=== PATIENT | female | born 1935 | race Caucasian/White ===

== ENCOUNTER 2016-11-20 19:40 | Emergency (ER) | payer MEDICARE, OTHER ==
[~2016-11-20 19:40] MED LIST: /ACETCOD2T PO; /AMLO25TA PO; /IPRAINH INH; ACET30TAB PO; ADV250INH INH; ALB2.5NEB INH; ALBU17IN INH; ALBUPOW9 INH; ALBUTEROL NEB INH; ALPR0.25 PO; AMLO10TA2 PO; ASPI1TAB PO; ASPI81TAEC PO; ATROVENT NEB INH; AUGMENTIN PO; AVEL1TAB PO; AZIT250T3 PO; CALC1TAB17 PO; CALCCHW19 PO; CALCD50TA PO; CALCTAB43 PO; CEFD1CAP8 PO; CEFT250T PO; CETI10TA PO; CLOP75TA2 PO; DOXY50CA PO; FLUC10TA PO; IBUPOTC PO; IPRA2IN INH; IPRA2IN NEB; IPRAINH INH; IPRASOL4 NEB; LASI40TA PO; LEVA12INH NEB; LEVO500T PO; LISI10TA4 PO; LOVE0.4I2 SC; MAPA325T2 PO; METO25TA74 PO; MUCI120T PO; MUCI600T34 PO; NITR4TASL SL; NYST50SS SS; OMEP20CA3 PO; OXYGEN; PANT40TA2 PO; PRED10PA PO; PRED10PA2 PO; PRED10TA PO; PRED10TA2 PO; PRED20TA PO; PRED5TAB PO; PRIL20CA PO; PRIN10TA PO; PULM1SUS INH; PULMICORT INH; PULMOCORT INH; SPIR1CAP INH; SPIRIVA HANDIHALER INH; TESS100C PO; TIZA2CAP3 PO; TIZANIDINE PO; VENTAER IN; VITA500047 PO; VITACAP31 PO; XANA0.25 PO
[2016-11-20] MEDS ORDERED: dexameTHASONE 4 MG/ML 1ML VIAL (J1100) As Ordered ONE (20:10)
[2016-11-20] MEDS ORDERED: IPRATROPIUM 0.5MG/ALBUTEROL 2.5MG INH SOL UD 3ML (DUONEB)(J7620) As Ordered ONE (20:21)
--- NOTE | 2016-11-20 21:52 | EDDOCDS ---
Nurse's Notes [facility] Name: Harmony Bowers Age: 81 yrs Sex: Female : 1935 Arrival Date: 11/20/2016 Time: 19:40 Bed 10 Private MD: Anson Lomeli M.D. Diagnosis: Chronic obstructive pulmonary disease with (acute) exacerbation Presentation: 11/20 19:43 Red Flag criteria, patient assessed and taken directly to a bed. 19:47 Presenting complaint: Patient states: Patient fell 3 three days ago after she tripped kmg1 over a large bag of dog food. has pain in right hand and has a "hematoma" left leg and foot. Also having difficulty breathing. Came on this morning. Patient is wheezing and SOB. Adult Sepsis Screening: The patient does not have new or worsening altered mentation. Patient has a respiratory rate of greater than or equal to 22 (1 point). Systolic blood pressure is greater than 100. Patient has a qSOFA score of 1- Negative Sepsis Screen. Suicide/Homicide risk assessment- the patient denies having any suicidal and/or homicidal ideations and does not present with any other emotional, behavioral or mental health complaints. 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 Transition of care: patient was not received from another setting of care. 19:47 Acuity: KENNEDY Level 3 [facility] [place] 19:47 Method Of Arrival: Walkin/Carried/Asstd km Triage Assessment: 19:54 General: Appears in no apparent distress, comfortable, Behavior is appropriate for age, kmg1 cooperative, pleasant. Pain: Location: right hand and left leg. Respiratory: Airway is patent Respiratory effort is even, unlabored, Reports shortness of breath. Musculoskeletal: Reports pain in right hand and left leg. Historical: - Allergies: Lidocaine; procaine (bulk); - Home Meds: 1. albuterol sulfate 90 mcg/actuation Inhl HFAA 2 puffs every 4 hours prn (Last dose: 11/20/2016 19:00) 2. albuterol sulfate 2.5 mg /3 mL (0.083 %) Inhl nebu every 6 hours 3. alprazolam 0.25 mg Oral TbDL 1 tab as needed 4. aspirin 81 mg Oral chew 1 tab once daily 5. Atrovent 18 mcg/actuation Inhl aero 2 puff every 4 hours as needed 6. benzonatate 100 mg oral cap 1 cap three times a day as needed hasnt taken any today 7. Calcium + Vitamin D 600 mg calcium- 200 unit Oral tab 8. DuoNeb 0.5 mg-3 mg(2.5 mg base)/3 mL Inhl nebu 3 mL 4 times per day 9. ibuprofen 200 mg Oral cap 10. lisinopril 10 mg Oral tab 1 tab once daily 11. Mucinex oral twice a day 12. Norvasc 10 mg Oral tab 1 tab once daily 13. omeprazole 20 mg Oral cpDR 1 cap daily PRN 14. oxygen 3.5-4lnc 15. Plavix 75 mg Oral tab 1 tab once daily 16. prednisone 10 mg Oral tab once daily starts with 40 mg and tapers down. only took 30mg today 17. tizanidine oral 0.5 cap as needed - PMHx: CAD; COPD; Diverticulosis; Hypercholesterolemia; Hypertension; TIA; - PSHx: Cardiac stents; - Social history: Smoking status: Patient states former smoker of tobacco. No barriers to communication noted, The patient speaks fluent Israeli, Speaks appropriately for age. - Family history: Not pertinent. - : The pt / caregiver states he / she is on anticoagulants: Plavix. Home medication list is obtained from the patient. - Exposure Risk Screening:: None identified. Screenin:45 Infection Control. elp 20:06 Screening information is obtained from the patient. Fall risk: At risk due to prior jmb history of falls. Assistance ADL's: requires no assistance with activities of daily living. Abuse/DV Screen: The patient / caregiver reports he/she is: not in a situation that causes fear, pain or injury. Nutritional screening: No deficits noted. home support is adequate. 21:48 Advance Directives: Currently, there is no health care proxy. There is no active DNR jmb order. There is no living will. There is no Power of Paralegal Assistant. Assessment: 20:06 General: Appears in no apparent distress, Behavior is appropriate for age, cooperative. jmb Neurological: Level of Consciousness is awake, alert, obeys commands, Oriented to person, place, time, Sales Marketing are equal bilaterally Speech is normal, Facial symmetry appears normal, Facial symmetry: tongue is midline. Cardiovascular: Capillary refill < 3 seconds Heart tones present Pulses are all present. Rhythm is regular. Respiratory: Airway is patent Respiratory effort is labored, Respiratory pattern is regular, Breath sounds with crackles expiratory. GI: Abdomen is non- distended Bowel sounds present X 4 quads. Abd is soft and non tender X 4 quads. Derm: Skin is pink, warm & dry. Bruising that is dark purple, on right eye. Musculoskeletal: Range of motion intact in all extremities. 20:55 General: Appears in no apparent distress, comfortable, Behavior is appropriate for age, jmb cooperative, Patient taken to radiology for chest x-ray. Patient son at bedside. Patient voices no complaints at this time. . Neurological: Level of Consciousness is awake, alert, obeys commands, Oriented to person, place, time. Respiratory: Airway is patent Respiratory effort is even, unlabored, Respiratory pattern is regular, symmetrical. 21:48 General: Patient instructed on discharge instructions. Patient asked if there were any [facility] questions regarding discharge, patient stated no. IV discontinued per hospital policy. Patient signed discharge instructions. Patient discharged in stable condition. . Vital Signs: 19:42 BP 142 / 60; Pulse 104; Resp 24; Temp 99.1(O); Pulse Ox 88% on R/A; Weight 45.36 kg elp (R); Height 5 ft. 0 in. (152.40 cm) (R); Pain 0/10; 21:42 BP 166 / 67; Pulse 90; Resp 20; Temp 98.6(TE); Pulse Ox 92% on 2 lpm NC; Pain 0/10; adelia 19:42 Body Mass Index 19.53 (45.36 kg, 152.40 cm) [facility] Vitals: 19:42 Log In Time: November 20, 2016 at 19:40. elp 19:43 RN notified that patient meets Red Flag criteria. [facility] ED Course: 19:42 Patient visited by Justyna Davalos PCA. elp 19:42 Anson Lomeli is Private Physician. elp 19:42 Patient moved to Waiting elp 19:43 Patient moved to 10 cz 19:44 Néstor Lal DO is Attending Physician. cs11 19:44 Patient visited by Néstor Lal DO. cs11 19:49 Patient visited by Rosa Craven PCA. adelia 19:49 Pt greeted and oriented to ED. Patient advised of names of staff involved in care, adelia location of call auguste, wait times and NPO status. Patient has correct armband on for positive identification. Placed in gown. Bed in low position. Call light in reach. Side rails up X2. monitor and storage bin tender on. Pulse ox on. NIBP on. 19:51 Triage Initiated kmg1 20:06 The patient / caregiver is instructed regarding the plan of care and ED course. jmb 20:06 Inserted saline lock: 20 gauge in right antecubital area and blood collected. The b patient tolerated the procedure well. Labs drawn. (by ED staff). Sent per order to lab. 20:08 Patient visited by Lenny Zaldivar,JOHN. jmb 20:44 Patient visited by Rosa Craven PCA. adelia 20:44 EKG done. (by ED staff). Reviewed by Néstor Lal DO. adelia 20:50 Patient moved to Radiology blaze 20:55 Patient visited by Lenny Zaldivar,JOHN. jmb 20:55 Patient moved to 10 blaze 20:57 Patient name changed from Harmony\\S\\\\S\\Bang\\S\\ to Harmony\\S\\ \\S\\Bang. EDMS 20:58 [facility] Payment Agreement was scanned into [employer] and attached to record. zo 21:37 Anson Lomeli is Referral Physician. cs11 21:48 Discontinued lock intact, bleeding controlled, pressure dressing applied, No jmb redness/swelling at site. No procedures done that require assistance. Administered Medications: 20:16 Drug: Dexamethasone 12 mg [dexamethasone 4 mg/mL injection solution] Route: IV; Rate: jmb bolus; Site: right antecubital; 20:24 Drug: Albuterol-Ipratropium 1 neb [ipratropium-albuterol 0.5 mg-3 mg(2.5 mg base)/3 mL jh6 nebulization soln (1 neb)] Route: Nebulizer; RT: 20:24 Respiratory: Airway is patent Respiratory effort is even, unlabored, Respiratory jh6 pattern is regular symmetrical, Breath sounds are coarse in left posterior upper lobe, right posterior upper lobe, left posterior lower lobe, right posterior middle lobe and right posterior lower lobe Breath sounds with rhonchi in left posterior upper lobe, right posterior upper lobe and right posterior middle lobe Breath sounds are diminished in left posterior lower lobe and right posterior lower lobe. 20:24 Initial Med Neb Given as ordered Patient was instructed and evaluated on procedure jh6 Patient tolerated procedure well without adverse effect. 20:34 Respiratory: Airway is patent Respiratory effort is even, unlabored, Respiratory 6 pattern is regular symmetrical, Breath sounds are clear in left posterior upper lobe, right posterior upper lobe, left posterior lower lobe, right posterior middle lobe and right posterior lower lobe Breath sounds are diminished in left posterior upper lobe, right posterior upper lobe, left posterior lower lobe, right posterior middle lobe and right posterior lower lobe Reports chest pain post nebulizer. Reported to MD. Lal. Order Results: There are currently no results for this order. Outcome: 21:38 Discharge ordered by Provider. cs11 21:48 Discharge Assessment: Patient awake, alert and oriented x 3. No cognitive and/or jmb functional deficits noted. Patient verbalized understanding of disposition instructions. Patient awake and alert. obeys commands, Oriented to person, place and time. Patient verbalized understanding of disposition instructions. Patient has no functional deficits. patient administered narcotics - no. The following High Risk Discharge criteria are identified: None. Discharged to home ambulatory, with family. Condition: stable. Discharge instructions given to patient, Instructed on discharge instructions, follow up and referral plans. medication usage, Demonstrated understanding of instructions, medications, Pt was receptive of discharge instructions/ teaching. No special radiology studies were completed. Property sent home with patient. 21:52 Patient left the ED. michell Signatures: Dispatcher [employer] EDMS Erin Holden, RN RN kmg1 Thierry Starks, Reji Whyte RN, Zoeann zo Ewald, Destiny, CONSERVATION OF RESOURCES COMMISSIONER CONSERVATION OF RESOURCES COMMISSIONER Mario Briseno 6 Néstor Lal DO DO cs11 Justyna Davalos, CONSERVATION OF RESOURCES COMMISSIONER CONSERVATION OF RESOURCES COMMISSIONER Lenny Jimenez RN RN jmb MTDD
--- NOTE | 2016-11-20 21:52 | EDDOCDS ---
Physician Documentation [facility] Name: Harmony Bowers Age: 81 yrs Sex: Female : 1935 Arrival Date: 11/20/2016 Time: 19:40 Bed 10 Private MD: Anson Lomeli M.D. Disposition: 11/20/16 21:38 Discharged to Home/Self Care. Impression: Chronic obstructive pulmonary disease with (acute) exacerbation. - Condition is Stable. - Prescriptions for Prednisone 20 mg Oral Tablet - take 3 tablets by ORAL route once daily for 4 days; 12 tablet. - Medication Reconciliation, Local Pharmacy Hours form. - Follow up: Anson Lomeli; When: Call to arrange an appointment; Reason: Recheck today's complaints. - Problem is chronic. - Symptoms have improved. Historical: - Allergies: Lidocaine; procaine (bulk); - Home Meds: 1. albuterol sulfate 90 mcg/actuation Inhl HFAA 2 puffs every 4 hours prn (Last dose: 11/20/2016 19:00) 2. albuterol sulfate 2.5 mg /3 mL (0.083 %) Inhl nebu every 6 hours 3. alprazolam 0.25 mg Oral TbDL 1 tab as needed 4. aspirin 81 mg Oral chew 1 tab once daily 5. Atrovent 18 mcg/actuation Inhl aero 2 puff every 4 hours as needed 6. benzonatate 100 mg oral cap 1 cap three times a day as needed hasnt taken any today 7. Calcium + Vitamin D 600 mg calcium- 200 unit Oral tab 8. DuoNeb 0.5 mg-3 mg(2.5 mg base)/3 mL Inhl nebu 3 mL 4 times per day 9. ibuprofen 200 mg Oral cap 10. lisinopril 10 mg Oral tab 1 tab once daily 11. Mucinex oral twice a day 12. Norvasc 10 mg Oral tab 1 tab once daily 13. omeprazole 20 mg Oral cpDR 1 cap daily PRN 14. oxygen 3.5-4lnc 15. Plavix 75 mg Oral tab 1 tab once daily 16. prednisone 10 mg Oral tab once daily starts with 40 mg and tapers down. only took 30mg today 17. tizanidine oral 0.5 cap as needed - PMHx: CAD; COPD; Diverticulosis; Hypercholesterolemia; Hypertension; TIA; - PSHx: Cardiac stents; - Social history: Smoking status: Patient states former smoker of tobacco. No barriers to communication noted, The patient speaks fluent Dominican, Speaks appropriately for age. - Family history: Not pertinent. - : The pt / caregiver states he / she is on anticoagulants: Plavix. Home medication list is obtained from the patient. - Exposure Risk Screening:: None identified. Vital Signs: 11/20 19:42 BP 142 / 60; Pulse 104; Resp 24; Temp 99.1(O); Pulse Ox 88% on R/A; Weight 45.36 kg / elp 100 lbs (R); Height 5 ft. 0 in. (152.40 cm) (R); Pain 0/10; 21:42 BP 166 / 67; Pulse 90; Resp 20; Temp 98.6(TE); Pulse Ox 92% on 2 lpm NC; Pain 0/10; adelia 19:42 Body Mass Index 19.53 (45.36 kg, 152.40 cm) elp MDM: 19:58 Chest, 2 View (pa\E\lat) Ordered. EDMS 20:06 IV Saline Lock ordered. cs11 20:06 Dexamethasone 12 mg IV at bolus once ordered. cs11 20:06 Albuterol-Ipratropium 1 neb Nebulizer every 20 minutes x3 ordered. cs11 20:06 Call Respiratory ordered. cs11 20:06 Call Respiratory complete. jmb 20:33 ECG WITH READING ER PHYS+CARDIAG ordered. EDMS 20:57 Financial registration complete. zo 20:58 [facility] Payment Agreement was scanned into [employer] and attached to record. zo Administered Medications: 20:16 Drug: Dexamethasone 12 mg [dexamethasone 4 mg/mL injection solution] Route: IV; Rate: jmb bolus; Site: right antecubital; 20:24 Drug: Albuterol-Ipratropium 1 neb [ipratropium-albuterol 0.5 mg-3 mg(2.5 mg base)/3 mL [facility] nebulization soln (1 neb)] Route: Nebulizer; Signatures: Dispatcher [employer] EDMS Erin Holden RN RN kmg1 Greta Toney Craig, DO DO cs11 Lenny Zaldivar RN RN jmb Hollis, Jacob 6 The chart was reviewed and I authenticate all verbal orders and agree with the evaluation and treatment provided.Attachments: 20:58 [facility] Payment Agreement zo MTDD
--- NOTE | 2016-11-21 02:44 | REP ---
Clinical: Shortness of breath. Technique: PA and lateral. Comparison: 11/04/2016. Findings: New areas of atelectasis suggested in the right middle lobe/medial right lower lobe. Mediastinum and cardiac silhouette stable. Underlying diffuse chronic interstitial changes and calcified granuloma are again identified and unchanged. No pleural effusion. No pneumothorax. Skeletal structures demonstrate osteopenia and degenerative changes. Impression: Extensive chronic changes. Suspected new area of right middle lobe/right lower lobe atelectasis Signed by Jacobo Martinez MD 11/21/2016 02:36 A
--- NOTE | 2016-11-21 12:56 | ECGEPIP ---
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
--- NOTE | 2016-11-22 22:52 | EDDOCDS ---
Nurse's Notes [facility] Name: Harmony Bowers Age: 81 yrs Sex: Female : 1935 Arrival Date: 11/20/2016 Time: 19:40 Bed 10 Private MD: Anson Lomeli M.D. Diagnosis: Chronic obstructive pulmonary disease with (acute) exacerbation Presentation: 11/20 19:43 Red Flag criteria, patient assessed and taken directly to a bed. 19:47 Presenting complaint: Patient states: Patient fell 3 three days ago after she tripped kmg1 over a large bag of dog food. has pain in right hand and has a "hematoma" left leg and foot. Also having difficulty breathing. Came on this morning. Patient is wheezing and SOB. Adult Sepsis Screening: The patient does not have new or worsening altered mentation. Patient has a respiratory rate of greater than or equal to 22 (1 point). Systolic blood pressure is greater than 100. Patient has a qSOFA score of 1- Negative Sepsis Screen. Suicide/Homicide risk assessment- the patient denies having any suicidal and/or homicidal ideations and does not present with any other emotional, behavioral or mental health complaints. Status: Patient is not a career services assistant or dependent. Transition of care: patient was not received from another setting of care. 19:47 Acuity: [place] Level 3 [facility] 19:47 Method Of Arrival: Walkin/Carried/Asstd km Triage Assessment: 19:54 General: Appears in no apparent distress, comfortable, Behavior is appropriate for age, kmg1 cooperative, pleasant. Pain: Location: right hand and left leg. Respiratory: Airway is patent Respiratory effort is even, unlabored, Reports shortness of breath. Musculoskeletal: Reports pain in right hand and left leg. Historical: - Allergies: Lidocaine; procaine (bulk); - Home Meds: 1. albuterol sulfate 90 mcg/actuation Inhl HFAA 2 puffs every 4 hours prn (Last dose: 11/20/2016 19:00) 2. albuterol sulfate 2.5 mg /3 mL (0.083 %) Inhl nebu every 6 hours 3. alprazolam 0.25 mg Oral TbDL 1 tab as needed 4. aspirin 81 mg Oral chew 1 tab once daily 5. Atrovent 18 mcg/actuation Inhl aero 2 puff every 4 hours as needed 6. benzonatate 100 mg oral cap 1 cap three times a day as needed hasnt taken any today 7. Calcium + Vitamin D 600 mg calcium- 200 unit Oral tab 8. DuoNeb 0.5 mg-3 mg(2.5 mg base)/3 mL Inhl nebu 3 mL 4 times per day 9. ibuprofen 200 mg Oral cap 10. lisinopril 10 mg Oral tab 1 tab once daily 11. Mucinex oral twice a day 12. Norvasc 10 mg Oral tab 1 tab once daily 13. omeprazole 20 mg Oral cpDR 1 cap daily PRN 14. oxygen 3.5-4lnc 15. Plavix 75 mg Oral tab 1 tab once daily 16. prednisone 10 mg Oral tab once daily starts with 40 mg and tapers down. only took 30mg today 17. tizanidine oral 0.5 cap as needed - PMHx: CAD; COPD; Diverticulosis; Hypercholesterolemia; Hypertension; TIA; - PSHx: Cardiac stents; - Social history: Smoking status: Patient states former smoker of tobacco. No barriers to communication noted, The patient speaks fluent Micronesian, Speaks appropriately for age. - Family history: Not pertinent. - : The pt / caregiver states he / she is on anticoagulants: Plavix. Home medication list is obtained from the patient. - Exposure Risk Screening:: None identified. Screenin:45 Infection Control. elp 20:06 Screening information is obtained from the patient. Fall risk: At risk due to prior jmb history of falls. Assistance ADL's: requires no assistance with activities of daily living. Abuse/DV Screen: The patient / caregiver reports he/she is: not in a situation that causes fear, pain or injury. Nutritional screening: No deficits noted. home support is adequate. 21:48 Advance Directives: Currently, there is no health care proxy. There is no active DNR jmb order. There is no living will. There is no Power of Earth Science Laboratory Technician. Assessment: 20:06 General: Appears in no apparent distress, Behavior is appropriate for age, cooperative. jmb Neurological: Level of Consciousness is awake, alert, obeys commands, Oriented to person, place, time, Mixing Machine Tender are equal bilaterally Speech is normal, Facial symmetry appears normal, Facial symmetry: tongue is midline. Cardiovascular: Capillary refill < 3 seconds Heart tones present Pulses are all present. Rhythm is regular. Respiratory: Airway is patent Respiratory effort is labored, Respiratory pattern is regular, Breath sounds with crackles expiratory. GI: Abdomen is non- distended Bowel sounds present X 4 quads. Abd is soft and non tender X 4 quads. Derm: Skin is pink, warm & dry. Bruising that is dark purple, on right eye. Musculoskeletal: Range of motion intact in all extremities. 20:55 General: Appears in no apparent distress, comfortable, Behavior is appropriate for age, jmb cooperative, Patient taken to radiology for chest x-ray. Patient son at bedside. Patient voices no complaints at this time. . Neurological: Level of Consciousness is awake, alert, obeys commands, Oriented to person, place, time. Respiratory: Airway is patent Respiratory effort is even, unlabored, Respiratory pattern is regular, symmetrical. 21:48 General: Patient instructed on discharge instructions. Patient asked if there were any [facility] questions regarding discharge, patient stated no. IV discontinued per hospital policy. Patient signed discharge instructions. Patient discharged in stable condition. . Vital Signs: 19:42 BP 142 / 60; Pulse 104; Resp 24; Temp 99.1(O); Pulse Ox 88% on R/A; Weight 45.36 kg elp (R); Height 5 ft. 0 in. (152.40 cm) (R); Pain 0/10; 21:42 BP 166 / 67; Pulse 90; Resp 20; Temp 98.6(TE); Pulse Ox 92% on 2 lpm NC; Pain 0/10; adelia 19:42 Body Mass Index 19.53 (45.36 kg, 152.40 cm) [facility] Vitals: 19:42 Log In Time: November 20, 2016 at 19:40. elp 19:43 RN notified that patient meets Red Flag criteria. [facility] ED Course: 19:42 Patient visited by Justyna Davalos PCA. elp 19:42 Anson Lomeli is Private Physician. elp 19:42 Patient moved to Waiting elp 19:43 Patient moved to 10 cz 19:44 Jair Rodriguez DO is Attending Physician. cs11 19:44 Patient visited by Jair Rodriguez DO. cs11 19:49 Patient visited by Rosa Craven PCA. adelia 19:49 Pt greeted and oriented to ED. Patient advised of names of staff involved in care, adelia location of call auguste, wait times and NPO status. Patient has correct armband on for positive identification. Placed in gown. Bed in low position. Call light in reach. Side rails up X2. coding director on. Pulse ox on. NIBP on. 19:51 Triage Initiated kmg1 20:06 The patient / caregiver is instructed regarding the plan of care and ED course. jmb 20:06 Inserted saline lock: 20 gauge in right antecubital area and blood collected. The b patient tolerated the procedure well. Labs drawn. (by ED staff). Sent per order to lab. 20:08 Patient visited by Lenny Zaldivar,JOHN. jmb 20:44 Patient visited by Rosa Craven PCA. adelia 20:44 EKG done. (by ED staff). Reviewed by Jair Rodriguez DO. adelia 20:50 Patient moved to Radiology blaze 20:55 Patient visited by Lenny Zaldivar,JOHN. jmb 20:55 Patient moved to 10 blaze 20:57 Patient name changed from Harmony\\S\\\\S\\Bang\\S\\ to Harmony\\S\\ \\S\\Bang. EDMS 20:58 [facility] [place] Agreement was scanned into [employer] and attached to record. zo 21:37 Anson Lomeli is Referral Physician. cs11 21:48 Discontinued lock intact, bleeding controlled, pressure dressing applied, No jmb redness/swelling at site. No procedures done that require assistance. 22:07 T-Sheet-- Draft Copy was scanned into [employer] and attached to record. klr 11/21 02:48 Chest, 2 View (pa\\E\\lat) Returned. EDMS 10:55 ECG/EKG was scanned into [employer] and attached to record. gb 13:09 EKG-ADULT Returned. EDMS Administered Medications: 11/20 20:16 Drug: Dexamethasone 12 mg [dexamethasone 4 mg/mL injection solution] Route: IV; Rate: jmb bolus; Site: right antecubital; 20:24 Drug: Albuterol-Ipratropium 1 neb [ipratropium-albuterol 0.5 mg-3 mg(2.5 mg base)/3 mL jh6 nebulization soln (1 neb)] Route: Nebulizer; RT: 20:24 Respiratory: Airway is patent Respiratory effort is even, unlabored, Respiratory jh6 pattern is regular symmetrical, Breath sounds are coarse in left posterior upper lobe, right posterior upper lobe, left posterior lower lobe, right posterior middle lobe and right posterior lower lobe Breath sounds with rhonchi in left posterior upper lobe, right posterior upper lobe and right posterior middle lobe Breath sounds are diminished in left posterior lower lobe and right posterior lower lobe. 20:24 Initial Med Neb Given as ordered Patient was instructed and evaluated on procedure jh6 Patient tolerated procedure well without adverse effect. 20:34 Respiratory: Airway is patent Respiratory effort is even, unlabored, Respiratory jh6 pattern is regular symmetrical, Breath sounds are clear in left posterior upper lobe, right posterior upper lobe, left posterior lower lobe, right posterior middle lobe and right posterior lower lobe Breath sounds are diminished in left posterior upper lobe, right posterior upper lobe, left posterior lower lobe, right posterior middle lobe and right posterior lower lobe Reports chest pain post nebulizer. Reported to MD. Rodriguez. Order Results: Radiology Order: Chest, 2 View (pa\\E\\lat) Test: Chest, 2 View (pa\\E\\lat) REASON FOR EXAMINATION: Shortness of Breath; Clinical: Shortness of breath.; ; Technique: PA and lateral.; ; Comparison: 11/04/2016.; ; Findings:; New areas of atelectasis suggested in the right middle lobe/medial right lower; lobe. Mediastinum and cardiac silhouette stable. Underlying diffuse chronic; interstitial changes and calcified granuloma are again identified and unchanged.; No pleural effusion. No pneumothorax. Skeletal structures demonstrate; osteopenia and degenerative changes.; ; Impression:; Extensive chronic changes.; Suspected new area of right middle lobe/right lower lobe atelectasis; ; ; Signed by; Jacobo Martinez MD 11/21/2016 02:36 A; Radiology Order: EKG-ADULT Test: EKG-ADULT REASON FOR EXAMINATION: Shortness of Breath; Stationary ECG Study; [facility] - ED; ; Test Date: 2016-11-20; Pat Name: HARMONY BOWERS Department:; Room: -; Gender: F Director Marketing Analytics: edith; : 1935 Requested By: JAIR RODRIGUEZ; Order Number: [id number] Reading MD: Janeth Guevara; Measurements; Intervals Reynolds; Rate: 85 P: 73; WA: 132 QRS: 28; QRSD: 126 T: 25; QT: 389; QTc: 463; Interpretive Statements; SINUS RHYTHM; RIGHT BUNDLE BRANCH BLOCK; ; Electronically Signed On 11-21-2016 12:56:01 EST by Janeth Guevara; Outcome: 21:38 Discharge ordered by Provider. cs11 21:48 Discharge Assessment: Patient awake, alert and oriented x 3. No cognitive and/or jmb functional deficits noted. Patient verbalized understanding of disposition instructions. Patient awake and alert. obeys commands, Oriented to person, place and time. Patient verbalized understanding of disposition instructions. Patient has no functional deficits. patient administered narcotics - no. The following High Risk Discharge criteria are identified: None. Discharged to home ambulatory, with family. Condition: stable. Discharge instructions given to patient, Instructed on discharge instructions, follow up and referral plans. medication usage, Demonstrated understanding of instructions, medications, Pt was receptive of discharge instructions/ teaching. No special radiology studies were completed. Property sent home with patient. 21:52 Patient left the ED. michell Signatures: Dispatcher [employer] EDMS Erin Holden, RN RN kmThierry Arzola, JOHN RN cz Reji Humphreys blaze Ivett Gibbs, Reg Reg gb Greta Toney Destiny, COMMUNICATIONS ENGINEERING TECHNICIAN COMMUNICATIONS ENGINEERING TECHNICIAN Mario Briseno jh6 Jair Rodriguez, DO cs11 Justyna Davalos, COMMUNICATIONS ENGINEERING TECHNICIAN COMMUNICATIONS ENGINEERING TECHNICIAN Lenny Jimenez,JOHN RN Annie Alvarez Chart Complete MTDD
--- NOTE | 2016-11-22 22:52 | EDDOCDS ---
Physician Documentation [facility] Name: Harmony Bowers Age: 81 yrs Sex: Female : 1935 Arrival Date: 11/20/2016 Time: 19:40 Bed 10 Private MD: Ansno Lomeli M.D. Disposition: 11/20/16 21:38 Discharged to Home/Self Care. Impression: Chronic obstructive pulmonary disease with (acute) exacerbation. - Condition is Stable. - Prescriptions for Prednisone 20 mg Oral Tablet - take 3 tablets by ORAL route once daily for 4 days; 12 tablet. - Medication Reconciliation, Local Pharmacy Hours form. - Follow up: Anson Lomeli; When: Call to arrange an appointment; Reason: Recheck today's complaints. - Problem is chronic. - Symptoms have improved. Historical: - Allergies: Lidocaine; procaine (bulk); - Home Meds: 1. albuterol sulfate 90 mcg/actuation Inhl HFAA 2 puffs every 4 hours prn (Last dose: 11/20/2016 19:00) 2. albuterol sulfate 2.5 mg /3 mL (0.083 %) Inhl nebu every 6 hours 3. alprazolam 0.25 mg Oral TbDL 1 tab as needed 4. aspirin 81 mg Oral chew 1 tab once daily 5. Atrovent 18 mcg/actuation Inhl aero 2 puff every 4 hours as needed 6. benzonatate 100 mg oral cap 1 cap three times a day as needed hasnt taken any today 7. Calcium + Vitamin D 600 mg calcium- 200 unit Oral tab 8. DuoNeb 0.5 mg-3 mg(2.5 mg base)/3 mL Inhl nebu 3 mL 4 times per day 9. ibuprofen 200 mg Oral cap 10. lisinopril 10 mg Oral tab 1 tab once daily 11. Mucinex oral twice a day 12. Norvasc 10 mg Oral tab 1 tab once daily 13. omeprazole 20 mg Oral cpDR 1 cap daily PRN 14. oxygen 3.5-4lnc 15. Plavix 75 mg Oral tab 1 tab once daily 16. prednisone 10 mg Oral tab once daily starts with 40 mg and tapers down. only took 30mg today 17. tizanidine oral 0.5 cap as needed - PMHx: CAD; COPD; Diverticulosis; Hypercholesterolemia; Hypertension; TIA; - PSHx: Cardiac stents; - Social history: Smoking status: Patient states former smoker of tobacco. No barriers to communication noted, The patient speaks fluent Guyanese, Speaks appropriately for age. - Family history: Not pertinent. - : The pt / caregiver states he / she is on anticoagulants: Plavix. Home medication list is obtained from the patient. - Exposure Risk Screening:: None identified. Vital Signs: 11/20 19:42 BP 142 / 60; Pulse 104; Resp 24; Temp 99.1(O); Pulse Ox 88% on R/A; Weight 45.36 kg / elp 100 lbs (R); Height 5 ft. 0 in. (152.40 cm) (R); Pain 0/10; 21:42 BP 166 / 67; Pulse 90; Resp 20; Temp 98.6(TE); Pulse Ox 92% on 2 lpm NC; Pain 0/10; adelia 19:42 Body Mass Index 19.53 (45.36 kg, 152.40 cm) elp MDM: 19:58 Chest, 2 View (pa\E\lat) Ordered. EDMS 20:06 IV Saline Lock ordered. cs11 20:06 Dexamethasone 12 mg IV at bolus once ordered. cs11 20:06 Albuterol-Ipratropium 1 neb Nebulizer every 20 minutes x3 ordered. cs11 20:06 Call Respiratory ordered. cs11 20:06 Call Respiratory complete. jmb 20:33 ECG WITH READING ER PHYS+CARDIAG ordered. EDMS 20:57 Financial registration complete. zo 20:58 [facility] Payment Agreement was scanned into [employer] and attached to record. zo 22:07 T-Sheet-- Draft Copy was scanned into [employer] and attached to record. klr 11/21 10:55 ECG/EKG was scanned into [employer] and attached to record. gb Administered Medications: 11/20 20:16 Drug: Dexamethasone 12 mg [dexamethasone 4 mg/mL injection solution] Route: IV; Rate: jmb bolus; Site: right antecubital; 20:24 Drug: Albuterol-Ipratropium 1 neb [ipratropium-albuterol 0.5 mg-3 mg(2.5 mg base)/3 mL jh6 nebulization soln (1 neb)] Route: Nebulizer; Signatures: Dispatcher Zazzy Erin Rios, RN RN kmg1 Ivett Gibbs, Reg Reg gb Greta Toney Craig, DO cs11 Lenny Zaldivar RN RN jmb Redder, Kathie klr Hollis, Jacob 6 The chart was reviewed and I authenticate all verbal orders and agree with the evaluation and treatment provided.Attachments: 20:58 [facility] Payment Agreement zo 22:07 T-Sheet-- Draft Copy klr 11/21 10:55 ECG/EKG gb Chart Complete MTDD
--- NOTE | 2016-11-22 22:52 | EDDOCDS ---
Physician Documentation [facility] Name: Harmony Bowers Age: 81 yrs Sex: Female : 1935 Arrival Date: 11/20/2016 Time: 19:40 Bed 10 Private MD: Anson Lomeli M.D. Disposition: 11/20/16 21:38 Discharged to Home/Self Care. Impression: Chronic obstructive pulmonary disease with (acute) exacerbation. - Condition is Stable. - Prescriptions for Prednisone 20 mg Oral Tablet - take 3 tablets by ORAL route once daily for 4 days; 12 tablet. - Medication Reconciliation, Local Pharmacy Hours form. - Follow up: Anson Lomeli; When: Call to arrange an appointment; Reason: Recheck today's complaints. - Problem is chronic. - Symptoms have improved. Historical: - Allergies: Lidocaine; procaine (bulk); - Home Meds: 1. albuterol sulfate 90 mcg/actuation Inhl HFAA 2 puffs every 4 hours prn (Last dose: 11/20/2016 19:00) 2. albuterol sulfate 2.5 mg /3 mL (0.083 %) Inhl nebu every 6 hours 3. alprazolam 0.25 mg Oral TbDL 1 tab as needed 4. aspirin 81 mg Oral chew 1 tab once daily 5. Atrovent 18 mcg/actuation Inhl aero 2 puff every 4 hours as needed 6. benzonatate 100 mg oral cap 1 cap three times a day as needed hasnt taken any today 7. Calcium + Vitamin D 600 mg calcium- 200 unit Oral tab 8. DuoNeb 0.5 mg-3 mg(2.5 mg base)/3 mL Inhl nebu 3 mL 4 times per day 9. ibuprofen 200 mg Oral cap 10. lisinopril 10 mg Oral tab 1 tab once daily 11. Mucinex oral twice a day 12. Norvasc 10 mg Oral tab 1 tab once daily 13. omeprazole 20 mg Oral cpDR 1 cap daily PRN 14. oxygen 3.5-4lnc 15. Plavix 75 mg Oral tab 1 tab once daily 16. prednisone 10 mg Oral tab once daily starts with 40 mg and tapers down. only took 30mg today 17. tizanidine oral 0.5 cap as needed - PMHx: CAD; COPD; Diverticulosis; Hypercholesterolemia; Hypertension; TIA; - PSHx: Cardiac stents; - Social history: Smoking status: Patient states former smoker of tobacco. No barriers to communication noted, The patient speaks fluent Irish, Speaks appropriately for age. - Family history: Not pertinent. - : The pt / caregiver states he / she is on anticoagulants: Plavix. Home medication list is obtained from the patient. - Exposure Risk Screening:: None identified. Vital Signs: 11/20 19:42 BP 142 / 60; Pulse 104; Resp 24; Temp 99.1(O); Pulse Ox 88% on R/A; Weight 45.36 kg / elp 100 lbs (R); Height 5 ft. 0 in. (152.40 cm) (R); Pain 0/10; 21:42 BP 166 / 67; Pulse 90; Resp 20; Temp 98.6(TE); Pulse Ox 92% on 2 lpm NC; Pain 0/10; adelia 19:42 Body Mass Index 19.53 (45.36 kg, 152.40 cm) elp MDM: 19:58 Chest, 2 View (pa\E\lat) Ordered. EDMS 20:06 IV Saline Lock ordered. cs11 20:06 Dexamethasone 12 mg IV at bolus once ordered. cs11 20:06 Albuterol-Ipratropium 1 neb Nebulizer every 20 minutes x3 ordered. cs11 20:06 Call Respiratory ordered. cs11 20:06 Call Respiratory complete. jmb 20:33 ECG WITH READING ER PHYS+CARDIAG ordered. EDMS 20:57 Financial registration complete. zo 20:58 [facility] Payment Agreement was scanned into [employer] and attached to record. zo 22:07 T-Sheet-- Draft Copy was scanned into [employer] and attached to record. klr 11/21 10:55 ECG/EKG was scanned into [employer] and attached to record. gb Administered Medications: 11/20 20:16 Drug: Dexamethasone 12 mg [dexamethasone 4 mg/mL injection solution] Route: IV; Rate: jmb bolus; Site: right antecubital; 20:24 Drug: Albuterol-Ipratropium 1 neb [ipratropium-albuterol 0.5 mg-3 mg(2.5 mg base)/3 mL jh6 nebulization soln (1 neb)] Route: Nebulizer; Signatures: Dispatcher [email or web address] Erin Rios, RN RN kmg1 Ivett Gibbs, Reg Reg gb Greta Toney Craig, DO cs11 eLnny Zaldivar RN RN jmb Redder, Kathie klr Hollis, Jacob 6 The chart was reviewed and I authenticate all verbal orders and agree with the evaluation and treatment provided.Attachments: 20:58 [facility] Payment Agreement zo 22:07 T-Sheet-- Draft Copy klr 11/21 10:55 ECG/EKG gb Chart Complete MTDD
== END 2016-11-20 21:52 | disposition home or self-care (01) ==
LOC: M ED 19:40
DX: J44.1 Chronic obstructive pulmonary disease with (acute) exacerbation (principal); I25.10 Atherosclerotic heart disease of native coronary artery without angina pectoris; K57.30 Diverticulosis of large intestine without perforation or abscess without bleeding; E78.00 Pure hypercholesterolemia, unspecified; I10 Essential (primary) hypertension; Z86.73 Personal history of transient ischemic attack (TIA), and cerebral infarction without residual deficits; Z79.82 Long term (current) use of aspirin; Z79.51 Long term (current) use of inhaled steroids; Z79.899 Other long term (current) drug therapy; Z99.81 Dependence on supplemental oxygen; Z79.02 Long term (current) use of antithrombotics/antiplatelets

== ENCOUNTER 2016-11-22 14:48 | Inpatient (IN) | payer MEDICARE, OTHER ==
[~2016-11-22] VITALS: Ht 152.4 cm; Wt 50.3 kg
[2016-11-22] MEDS ORDERED: ACETAMINOPHEN TAB 650MG DOSE (2X325MG) As Ordered ONE ×2 (15:51→20:17)
[2016-11-22 15:58] LABS: ANION GAP 10 MEQ/L (8-16); BLOOD UREA NITROGEN 23 MG/DL (7-18); CALCIUM LEVEL 8.5 MG/DL (8.8-10.2); CARBON DIOXIDE LEVEL 30 MEQ/L (21-32); CHLORIDE LEVEL 104 MEQ/L (98-107); CREATININE FOR GFR 0.77 MG/DL (0.55-1.02); GLOMERULAR FILTRATION RATE > 60.0 (>32); GLUCOSE, FASTING 84 MG/DL (83-110); POTASSIUM SERUM 3.5 MEQ/L (3.5-5.1); SODIUM LEVEL 144 MEQ/L (136-145)
[2016-11-22 16:02] LABS: BASO % 0.6 % (0.0-1.0); EOS # 0.1 K/mm3 (0.0-0.50); EOS % 1.4 % (0.0-3.0); LARGE UNSTAINED CELL # 0.2 K/mm3 (0.0-0.4); LARGE UNSTAINED CELL % 2.4 % (0.0-4.0); LYMPH # 1.4 K/mm3 (1.5-4.5); LYMPH % 15.5 % (24.0-44.0); MEAN CORPUSCULAR HEMOGLOBIN 30.7 pg (27.0-33.0); MEAN CORPUSCULAR HGB CONC 33.4 g/dl (32.0-36.5); MEAN CORPUSCULAR VOLUME 91.9 fl (80.0-96.0); MONO # 0.7 K/mm3 (0.0-0.8); MONO % 7.7 % (0.0-5.0); NEUTROPHILS # 6.4 K/mm3 (1.8-7.7); NEUTROPHILS % 72.5 % (36.0-66.0); PLATELET COUNT, AUTOMATED 334 k/mm3 (150-450); RED CELL DISTRIBUTION WIDTH 15.2 % (11.5-14.5); WHITE BLOOD COUNT 8.8 K/mm3 (4.0-10.0)
[2016-11-22] MEDS ORDERED: IPRATROPIUM 0.5MG/ALBUTEROL 2.5MG INH SOL UD 3ML (DUONEB)(J7620) As Ordered ONE (19:05)
--- NOTE | 2016-11-22 19:09 | REP ---
CT CHEST WITHOUT CONTRAST: HISTORY: Cough. COMPARISON: 08/06/2016 Patchy densities are present in the right upper, mid and bilateral lower lobes consistent with atelectasis or infiltrates. A small right pleural effusion is present. Small lymph nodes less than 1 cm in size are present in the mediastinum. The heart is normal in size. Atherosclerotic calcification is present in the thoracic aorta. Degenerative change is present in the thoracic spine. IMPRESSION: 1. Right upper, right mid and bilateral lower lobe infiltrates. 2. Small right pleural effusion. Signed by Jaden Bright MD 11/22/2016 07:26 P
[2016-11-22] MEDS ORDERED: cefTRIAXone SOD 1 GM VIAL (J0696) As Ordered ONE (19:31)
[2016-11-22] MEDS ORDERED: AZITHROMYCIN INJ 500MG VIAL (J0456) As Ordered ONE (19:31)
[2016-11-22] MEDS ORDERED: DOXY-278 PO (19:42)
[2016-11-22] MEDS ORDERED: METO-346 PO (19:42)
[2016-11-22] MEDS ORDERED: LISI10TA4 PO (19:42)
[2016-11-22 20:40] LABS: MAGNESIUM LEVEL 1.8 MG/DL (1.8-2.4)
[2016-11-22] MEDS ORDERED: IPRATROPIUM 0.5MG/ALBUTEROL 2.5MG INH SOL UD 3ML (DUONEB)(J7620) NEB PRN (20:45)
[2016-11-22] MEDS ORDERED: ONDANSETRON 4MG/2ML VIAL (J2405) As Ordered ONE (21:06)
--- NOTE | 2016-11-22 22:00 | REPUSA ---
Clinical history: Pain, swelling. Findings: The common femoral, superficial femoral, popliteal, and other deep venous structures compre ss normally and demonstrate normal color Doppler flow. Normal venous waveforms with augmentation are seen. Impression: No evidence of deep vein thrombosis in either femoral popliteal venous system.
--- NOTE | 2016-11-22 22:43 | EDDOCDS ---
Nurse's Notes [facility] Name: Harmony Bowers Age: 81 yrs Sex: Female : 1935 Arrival Date: 11/22/2016 Time: 14:48 Bed 15 Private MD: Anson Lomeli M.D. Diagnosis: Bronchopneumonia, unspecified organism-RUL, RML, RLL, LLL;Chronic obstructive pulmonary disease with acute lower respiratory infection Presentation: 11/22 14:53 Presenting complaint: EMS states: called to residence by patient's [id number]. jc4 Allegedly patient had sudden onset of shortness of breath this afternoon. Suicide/Homicide risk assessment- the patient denies having any suicidal and/or homicidal ideations and does not present with any other emotional, behavioral or mental health complaints. Status: Patient is not a elevator serviceman or dependent. Transition of care: patient was not received from another setting of care. Care prior to arrival: See EMS report. Medications administered prior to arrival: Albuterol/Atrovent neb Saline lock initiated. Glucose check. 109 mg/dl Oxygen administered by EMS. 14:53 Acuity: KENNEDY Level 3 [facility] 14:53 Method Of Arrival: Ambulance [facility] 15:06 Adult Sepsis Screening: The patient does not have new or worsening altered mentation. 4 Patient's respiratory rate is less than 22. Systolic blood pressure is greater than 100. Patient has a qSOFA score of 0- Negative Sepsis Screen. Triage Assessment: 15:04 General: Appears in no apparent distress. Pain: Denies pain. The patient is triaged at [facility] the bedside. See Assessment in Nurses Notes section of ED record. Respiratory: Onset: The symptoms/episode began/occurred this afternoon. Historical: - Allergies: Lidocaine; procaine (bulk); - Home Meds: 1. albuterol sulfate 90 mcg/actuation Inhl HFAA 2 puffs every 4 hours prn (Last dose: 11/22/2016 14:00) 2. albuterol sulfate 2.5 mg /3 mL (0.083 %) Inhl nebu every 6 hours (Last dose: 11/22/2016 13:30) 3. alprazolam 0.25 mg Oral TbDL 1 tab as needed (Last dose: 11/22/2016 06:30) 4. aspirin 81 mg Oral chew 1 tab once daily (Last dose: 11/22/2016 06:30) 5. Atrovent 18 mcg/actuation Inhl aero 2 puff every 4 hours as needed (Last dose: 11/22/2016 14:00) 6. Calcium + Vitamin D 600 mg calcium- 200 unit Oral tab (Last dose: 11/21/2016) 7. DuoNeb 0.5 mg-3 mg(2.5 mg base)/3 mL Inhl nebu 3 mL 4 times per day (Last dose: 11/22/2016 06:00) 8. prednisone 10 mg Oral tab 1 tab once daily (Last dose: 11/22/2016 06:30) 9. omeprazole 20 mg Oral cpDR 1 cap daily PRN (Last dose: Unknown) 10. Zyrtec 10 mg Oral tab 1 tab once daily (Last dose: 11/21/2016) 11. tizanidine oral 0.5 cap as needed (Last dose: Unknown) 12. Norvasc 10 mg Oral tab 1 tab once daily (Last dose: 11/21/2016) 13. oxygen 3.5-4lnc 14. doxycycline hyclate 100 mg Oral cap 1 cap 2 times per day - PMHx: CAD; COPD; Diverticulosis; Hypercholesterolemia; Hypertension; TIA; - PSHx: Cardiac stents; - The history from nurses notes was reviewed: and I agree with what is documented. - Social history: Smoking status: Patient states former smoker of tobacco. No barriers to communication noted, The patient speaks fluent [place]ibian. - : The pt / caregiver states he / she is not on anticoagulants. Home medication list is obtained from the patient. - Hospitalizations: : The patient was recently seen at [facility], and discharged 1 month(s) ago. - Exposure Risk Screening:: None identified. - Immunization history:: All immunizations up-to-date. - Family history: Not pertinent. - Social history:: the patient is a former smoker, the patient does not drink alcohol. Screenin:14 Screening information is obtained from the patient. Fall risk: No risks identified. ja5 Assistance ADL's: requires no assistance with activities of daily living. Abuse/DV Screen: The patient / caregiver reports he/she is: not in a situation that causes fear, pain or injury. Nutritional screening: On no prescribed diet. Advance Directives: Currently, there is a health care proxy, Chantal Bowers, daughter. There is an active DNR order but there is no copy available at this time. There is a living will, but a copy is not available at this time. There is an active Power of Rotor Casting Machine Setup Operator, chantal Bowers, daughter. home support is adequate. Assessment: 15:10 General: Appears in no apparent distress, Behavior is appropriate for age, cooperative. ja5 Pain: Denies pain. Neurological: Level of Consciousness is awake, alert, Oriented to person, place, time. Cardiovascular: Capillary refill < 3 seconds Heart tones S1 S2 present Edema is 1+ to left ankle, left foot, right ankle and right foot Rhythm is sinus tachycardia. Cardiovascular: Chest pain is denied. Respiratory: Airway is patent Respiratory effort is even, Respiratory pattern is tachypnea Breath sounds are clear bilaterally. Breath sounds are diminished in right posterior lower lobe. Derm: Skin is intact, is thin, Skin is dry, Skin is pink, warm & dry. 16:25 General: Pt resting on stretcher with eyes closed. Respirations easy and full. No jc4 distress noted at this time. Call auguste in reach. 18:13 General: patient resting in stretcher, denies pain at this time. food tray just ja5 arrived.. 18:46 General: Patient consumed 100% of food, denies pain at this time, respirations ja5 increased with minimum activity.. 20:56 General: Appears in no apparent distress, Behavior is appropriate for age, cooperative, af2 pt seated in upright position, resting quietly with eyes closed. bed locked and in lowest position, side rails up x2, call light is within reach. will continue to monitor. offers no complaints at this time.. 21:13 General: Entered pt room to respond to call auguste; pt stated "My stomach doesn't feel js15 right since I ate dinner; I feel like I want to throw up". Informed hospitalist and orders given . Pt pressed call auguste again and stated that she had to use the restroom. Informed pt that because she was on a director appointment and was receiving an IV infusion of antibiotics that the safest method for her to have a bowel movement was to use a bedside commode and stay connected to director appointment. Pt adamantly refused multiple times stating "I have to have a bowel movement and I'm not doing it in here." Primary nurse Piter Oglesby made aware. Pt ambulated independently and without difficulty to restroom on continuous O2 NC with this instructional writer and Glynn CADE. . 21:54 Reassessment: Patient appears in no apparent distress at this time. Patient denies pain tm5 at this time. Patient states feeling better. Patient states symptoms have improved. Cardiovascular: Rhythm is sinus rhythm No ectopy. 22:08 General: called PCU SBAR was received by RN stated that she will be ready for pt's tm5 admission in 15 minutes. 22:40 General: pt transported to the floor via stretcher with RN & telemetry & chart. tm5 Vital Signs: 14:59 BP 137 / 63; Pulse 99; Resp 20; Temp 101.6(TE); Pulse Ox 94% on 4 lpm NC; Weight 49.9 dem1 kg; Height 5 ft. 0 in. (152.40 cm); Pain 0/10; 15:26 Pulse 100 MON; Pulse Ox 94% ; ja5 15:27 BP 123 / 57 (auto/); ja5 15:56 Pulse 100 MON; Pulse Ox 95% ; ja5 15:57 BP 136 / 60 (auto/); ja5 16:26 Pulse 98 MON; Pulse Ox 96% ; ja5 16:27 BP 152 / 67 (auto/); ja5 16:56 Pulse 102 MON; Pulse Ox 95% ; ja5 16:57 BP 133 / 84 (auto/); ja5 17:11 Temp 100(O); ja5 17:26 Pulse 98 MON; Pulse Ox 95% ; ja5 17:27 BP 138 / 63 (auto/); ja5 17:57 BP 130 / 60 (auto/); ja5 17:57 Pulse 92 MON; Pulse Ox 97% ; ja5 18:26 Pulse 106 MON; ja5 18:27 BP 164 / 72 (auto/); ja5 18:41 BP 116 / 57; Pulse 100; Resp 24; Temp 100.1; Pulse Ox 94% on 4 lpm NC; Pain 0/10; tm5 21:54 BP 110 / 59; Pulse 74; Resp 20; Temp 97.6(O); Pulse Ox 96% on 4 lpm NC; Pain 0/10; tm5 14:59 Body Mass Index 21.48 (49.90 kg, 152.40 cm) dem1 Vitals: 14:59 Log In Time N/A - ambulance arrival. dem1 ED Course: 14:49 Patient visited by Shasta Campos, Healthcare Liaison. lbd 14:49 Patient moved to Waiting lbd 14:50 Anson Lomeli is Private Physician. lbd 14:50 Humaira Knox, RN is Primary Nurse. lbd 14:50 Patient moved to 15 lbd 14:55 Triage Initiated jc4 14:59 Patient visited by Hussein Berrios. dem1 14:59 Pt greeted and oriented to ED. Patient advised of names of staff involved in care, [facility] location of call auguste, wait times and NPO status. Patient has correct armband on for positive identification. Placed in gown. Bed in low position. Call light in reach. Side rails up X2. facility maintenance worker on. Pulse ox on. NIBP on. 15:17 Maintain field IV. Dressing intact. Site clean & dry. Gauge & site: 20 g Left AC. ja5 15:25 Real Hu MD is Attending Physician. pc 15:37 Patient visited by Kelly Patel PCA. ct3 15:37 EKG done. (by ED staff). Reviewed by Real Hu MD. ct3 15:52 Patient visited by Real Hu MD. pc 16:21 -Influenza A&B Rapid Antigen - Nose Sent. jc4 16:27 BLOOD CULTURES Sent. jc4 16:28 Patient visited by Kelly Patel PCA. ct3 17:32 Patient visited by Real Hu MD. pc 18:32 Patient visited by Rosa Craven PCA. adelia 18:57 Primary Nurse role handed off by Humaira Knox, JOHN ja5 19:06 Patient visited by Sheela Parker RN. tm5 19:06 The patient / caregiver is instructed regarding the plan of care and ED course. Report tm5 received from Nieves Diaz RN, assumed care of pt at this time. 19:18 CT Chest Without Contrast Returned. EDMS 19:28 Matti Freeman MD is Hospitalizing Provider. pc 20:11 Written Provider Order was scanned into [employer] and attached to record. ml3 20:24 Patient name changed from Harmony\\S\\\\S\\Bang\\S\\ to Harmony\\S\\ \\S\\Bang. EDMS 20:24 [facility] [place] Payment Agreement was scanned into [employer] and attached to record. gjb 20:37 Patient visited by Sheela Parker RN. tm5 20:57 Patient visited by Marj Shipman RN. af2 21:03 Patient moved to Ultrasound dmg 21:06 Patient moved to 15 dmg 21:26 Patient moved to Ultrasound dmg 21:34 Patient visited by Sheela Parker RN. tm5 21:36 Patient moved to Sono. tm5 21:39 Patient visited by Sheela Parker RN. tm5 21:48 Patient moved to 15 dmg 21:50 Patient moved back from Sono. tm5 21:51 Patient visited by Sheela Parker RN. tm5 21:54 No procedures done that require assistance. tm5 22:08 Patient visited by Sheela Parker RN. tm5 22:13 Duplex, Ext LOWER veins, bilat Returned. EDMS 22:40 Patient visited by Sheela Parker RN. tm5 Administered Medications: 16:18 Drug: Acetaminophen 650 mg [acetaminophen 325 mg tablet (2 tabs)] Route: PO; jc4 17:11 Follow up: Temp 100 Oral ja5 19:10 Drug: Albuterol-Ipratropium 3 ml [ipratropium-albuterol 0.5 mg-3 mg(2.5 mg base)/3 mL jc3 nebulization soln (3 mL)] Route: Inhalation; 19:43 Drug: cefTRIAXone 1 grams [ceftriaxone 1 gram solution for injection] Route: IVPB; tm5 Infused Over: 30 mins; Site: left antecubital; 20:15 Follow up: IV Status: Completed infusion mlc 20:15 Drug: azithromycin 500 mg [azithromycin 500 mg intravenous solution] Route: IVPB; mlc Infused Over: 1 hrs; Site: left antecubital; 21:15 Follow up: Response: No Adverse Reaction; IV Status: Completed infusion; IV Intake: tm5 250ml 20:20 Drug: Acetaminophen 650 mg [acetaminophen 325 mg tablet (2 tabs)] Route: PO; mlc 21:53 Follow up: Response: No Adverse Reaction; Pain is decreased tm5 21:50 Drug: Ondansetron 4 mg Route: IVP; Site: left antecubital; tm5 22:41 Follow up: Response: Nausea is resolved; No Adverse Reaction tm5 Intake: 21:15 IV: 250.00ml; Total: 250.00ml. tm5 RT: 19:10 Initial Med Neb Given as ordered. O2 via nasal cannula \\T\\ 2L/min. Respiratory: Breath jc3 sounds are diminished bilaterally. Breath sounds with wheezes bilaterally. Order Results: Lab Order: B-Type Natiuretic Peptide; SPEC'M 11/22/16 15:23 Test: BRAIN NATRIURETIC PEPTIDE; Value: 142; Range: <100; Abnormal: Above high normal; Units: PG/ML; Status: F Lab Order: Basic Metabolic Profile; SPEC'M 11/22/16 15:23 Test: GLUCOSE, FASTING; Value: 84; Range: 83-110; Units: MG/DL; Status: F Test: BLOOD UREA NITROGEN; Value: 23; Range: 7-18; Abnormal: Above high normal; Units: MG/DL; Status: F Test: CREATININE FOR GFR; Value: 0.77; Range: 0.55-1.02; Units: MG/DL; Status: F Test: GLOMERULAR FILTRATION RATE; Value: > 60.0; Range: >32; Status: F Test: SODIUM LEVEL; Value: 144; Range: 136-145; Units: MEQ/L; Status: F Test: POTASSIUM SERUM; Value: 3.5; Range: 3.5-5.1; Units: MEQ/L; Status: F Test: CHLORIDE LEVEL; Value: 104; Range: 98-107; Units: MEQ/L; Status: F Test: CARBON DIOXIDE LEVEL; Value: 30; Range: 21-32; Units: MEQ/L; Status: F Test: ANION GAP; Value: 10; Range: 8-16; Units: MEQ/L; Status: F Test: CALCIUM LEVEL; Value: 8.5; Range: 8.8-10.2; Abnormal: Below low normal; Units: MG/DL; Status: F Test Note: ; Units are mL/min/1.73 m2 Chronic Kidney Disease Staging per NKF: Stage I & II GFR >=60 Normal to Mildly Decreased Stage III GFR 30-59 Moderately Decreased Stage IV GFR 15-29 Severely Decreased Stage V GFR <15 Very Little GFR Left ESRD GFR <15 on BASEBALL GLOVE SHAPER Lab Order: CBC with Diff; SPEC'M 11/22/16 15:23 Test: WHITE BLOOD COUNT; Value: 8.8; Range: 4.0-10.0; Units: K/mm3; Status: F Test: RED BLOOD COUNT; Value: 3.20; Range: 4.00-5.40; Abnormal: Below low normal; Units: M/mm3; Status: F Test: HEMOGLOBIN; Value: 9.8; Range: 12.0-16.0; Abnormal: Below low normal; Units: g/dl; Status: F Test: HEMATOCRIT; Value: 29.4; Range: 36.0-47.0; Abnormal: Below low normal; Units: %; Status: F Test: MEAN CORPUSCULAR VOLUME; Value: 91.9; Range: 80.0-96.0; Units: fl; Status: F Test: MEAN CORPUSCULAR HEMOGLOBIN; Value: 30.7; Range: 27.0-33.0; Units: pg; Status: F Test: MEAN CORPUSCULAR HGB CONC; Value: 33.4; Range: 32.0-36.5; Units: g/dl; Status: F Test: RED CELL DISTRIBUTION WIDTH; Value: 15.2; Range: 11.5-14.5; Abnormal: Above high normal; Units: %; Status: F Test: PLATELET COUNT, AUTOMATED; Value: 334; Range: 150-450; Units: k/mm3; Status: F Test: NEUTROPHILS %; Value: 72.5; Range: 36.0-66.0; Abnormal: Above high normal; Units: %; Status: F Test: LYMPH %; Value: 15.5; Range: 24.0-44.0; Abnormal: Below low normal; Units: %; Status: F Test: MONO %; Value: 7.7; Range: 0.0-5.0; Abnormal: Above high normal; Units: %; Status: F Test: EOS %; Value: 1.4; Range: 0.0-3.0; Units: %; Status: F Test: BASO %; Value: 0.6; Range: 0.0-1.0; Units: %; Status: F Test: LARGE UNSTAINED CELL %; Value: 2.4; Range: 0.0-4.0; Units: %; Status: F Test: NEUTROPHILS #; Value: 6.4; Range: 1.8-7.7; Units: K/mm3; Status: F Test: LYMPH #; Value: 1.4; Range: 1.5-4.5; Abnormal: Below low normal; Units: K/mm3; Status: F Test: MONO #; Value: 0.7; Range: 0.0-0.8; Units: K/mm3; Status: F Test: EOS #; Value: 0.1; Range: 0.0-0.50; Units: K/mm3; Status: F Test: BASO #; Value: 0.0; Range: 0.0-0.2; Units: K/mm3; Status: F Test: LARGE UNSTAINED CELL #; Value: 0.2; Range: 0.0-0.4; Units: K/mm3; Status: F Lab Order: Cardiac Injury Profile; SPEC' 11/22/16 15:23 Test: CPK CREATINE PHOSPHOKINASE; Value: 170; Range: 26-192; Units: U/L; Status: F Test: CK-MB VALUE MASS; Value: 3.9; Range: 0.0-3.6; Abnormal: Above high normal; Units: NG/ML; Status: F Test: MB/CK RELATIVE INDEX; Value: 2.29; Range: < OR =4; Status: F Test Note: ; DIAGNOSIS CRITERIA MMB ng/ml Relative Index (RI) NON-AMI < or = 5 N/A GRIJALVA ZONE > 5 < or = 4 AMI > 5 > 4 Lab Order: Troponin; SPEC' 11/22/16 15:23 Test: TROPONIN I; Value: < 0.02; Range: < 0.10; Units: NG/ML; Status: F Test Note: ; Troponin I Reference Interval for [employer] LOCI: 99th Percentile= 0.00-0.045 ng/ml Risk Stratification: <= 0.10 ng/ml Decreased Risk for Adverse Clinical Events. 0.10-1.50 ng/ml Increased Risk for Adverse Clinical Events. Evaluation of additional criterion and/or repeat testing in 2-6 hours is suggested to rule out myocardial damage. >= 1.50 ng/ml Indicative of Myocardial Injury. Lab Order: -Influenza A&B Rapid Antigen - Nose; SPEC'M 11/22/16 16:20 Test: INFLUENZA A RAPID SCR by ICA; Value: INFLUENZA A RESULTS NEGATIVE; Status: F Test: INFLUENZA A RAPID SCR by ICA; Value: Comments:; Status: F Test: INFLUENZA B RAPID SCR by ICA; Value: INFLUENZA B RESULTS NEGATIVE; Status: F Test Note: ; The Influenza test is a direct rapid immunoassay for the qualitative detection of Influenza viral antigen. Cell culture (Viral Culture) testing should be considered to confirm NEGATIVE results and to assist in detecting other viruses that can provide similar clinical symptoms. Please contact the lab within 24 hours ([phone]) if confirmatory testing is desired. Lab Order: MAGNESIUM LEVEL; SPEC'M 11/22/16 15:23 Test: MAGNESIUM LEVEL; Value: 1.8; Range: 1.8-2.4; Units: MG/DL; Status: F Radiology Order: CT Chest Without Contrast Test: CT Chest Without Contrast REASON FOR EXAMINATION: fever, cough; CT CHEST WITHOUT CONTRAST:; ; HISTORY: Cough.; ; COMPARISON: 08/06/2016; ; Patchy densities are present in the right upper, mid and bilateral lower lobes; consistent with atelectasis or infiltrates. A small right pleural effusion is; present. Small lymph nodes less than 1 cm in size are present in the mediastinum.; The heart is normal in size. Atherosclerotic calcification is present in the; thoracic aorta. Degenerative change is present in the thoracic spine.; ; IMPRESSION:; ; 1. Right upper, right mid and bilateral lower lobe infiltrates.; ; 2. Small right pleural effusion.; ; ; Signed by; Jaden Bright MD 11/22/2016 07:26 P; Radiology Order: Duplex, Ext LOWER veins, bilat Test: Duplex, Ext LOWER veins, bilat REASON FOR EXAMINATION: pain, r/o DVT; ; Clinical history: Pain, swelling.; Findings: The common femoral, superficial femoral, popliteal, and other deep venous structures compre; ss normally and demonstrate normal color Doppler flow. Normal venous waveforms with augmentation are; seen.; Impression:; No evidence of deep vein thrombosis in either femoral popliteal venous system.; ; Outcome: 19:29 Decision to Hospitalize by Provider. pc 21:54 Ultrasound Study completed. tm5 22:41 Discharge Assessment: Patient awake, alert and oriented x 3. No cognitive and/or tm5 functional deficits noted. Patient verbalized understanding of disposition instructions. patient administered narcotics - no. The following High Risk Discharge criteria are identified: None. Admitted to PCU accompanied by nurse, accompanied by tech, via stretcher, with oxygen, on monitor, with chart. Condition: good Condition: stable Condition: improved. Property :Personal belongings accompany Pt. 22:42 Patient left the ED. tm5 Signatures: Dispatcher [employer] EDMS Real Hu MD MD pc Daly, Linda, Healthcare Liaison Unit lbd Milagros Yun Mary-Elizabeth, Healthcare Liaison Unit ml3 Ck Montalvo3 Humaira Knox RN RN jc4 Rosa Craven, FEATHER EDGER FEATHER EDGER adelia PatelKelly schmidt, FEATHER EDGER FEATHER EDGER ct3 Hussein Berrios dem1 Jazzmine Michaels,RN RN Marj Leone,RN JOHN af2 Kayli Hillman,RN RN js15 Betty Samaniego Tonya,RN RN tm5 Yesica Pemberton,RN RN ja5 Corrections: (The following items were deleted from the chart) 18:41 18:13 General: patient resting in marcelo, denies pain at this time. food tray just ja5 arrived.. ja5 21:22 21:13 General: Entered pt room to respond to call auguste; pt stated "My stomach doesn't js15 feel right since I ate dinner; I feel like I want to throw up". Informed hospitalist and orders given for Zofran 4 mg IV x1 dose. Pt pressed call auguste again and stated that she had to use the restroom. Informed pt that because she was on a director appointment and was receiving an IV infusion of antibiotics that the safest method for her to have a bowel movement was to use a bedside commode and stay connected to director appointment. Pt adamantly refused multiple times stating "I have to have a bowel movement and I'm not doing it in here." Primary nurse Piter Oglesby made aware. Pt ambulated independently and without difficulty to restroom on continuous O2 NC with this instructional writer and L Hali FEATHER EDGER. . js15 21:38 18:41 BP 116 / 57; Pulse 100bpm; Resp 24bpm; Pulse Ox 94% RA; Temp 100.1F; Pain 0/10; tm5 ja5 MTDD
--- NOTE | 2016-11-22 22:43 | EDDOCDS ---
Physician Documentation [facility] Name: Harmony Bowers Age: 81 yrs Sex: Female : 1935 Arrival Date: 11/22/2016 Time: 14:48 Bed 15 Private MD: Anson Lomeli M.D. Disposition: 11/22 19:27 Critical Care: Critical care not applicable. pc Disposition: 11/22/16 19:29 Hospitalization ordered by Matti Freeman for Inpatient Admission. Preliminary diagnosis are Bronchopneumonia, unspecified organism - RUL, RML, RLL, LLL, Chronic obstructive pulmonary disease with acute lower respiratory infection. - Bed requested for PCU. - Status is Inpatient Admission. tm5 - Condition is Stable. - Problem is new. - Symptoms have improved. HPI: 15:52 This 81 yrs old Female presents to ER via Ambulance with complaints of pc Breathing Difficulty. 15:52 The history is obtained from the patient, the patient's family/friend. The patient pc presents with shortness of breath, with a prior history of COPD. The symptoms began suddenly today. The symptoms are continuous. There were no precipitating events that led to the current complaints. The patient has shortness of breath at rest. At their worst, the symptoms were moderate. In the emergency department, the symptoms are mild. The patient's shortness of breath is aggravated by exertion, coughing, is alleviated by nothing. The patient's dyspnea was accompanied with fever. The patient has experienced similar episodes in the past, several times. The patient has been recently seen at the [facility], this week, for similar complaints. Historical: - Allergies: Lidocaine; procaine (bulk); - Home Meds: 1. albuterol sulfate 90 mcg/actuation Inhl HFAA 2 puffs every 4 hours prn (Last dose: 11/22/2016 14:00) 2. albuterol sulfate 2.5 mg /3 mL (0.083 %) Inhl nebu every 6 hours (Last dose: 11/22/2016 13:30) 3. alprazolam 0.25 mg Oral TbDL 1 tab as needed (Last dose: 11/22/2016 06:30) 4. aspirin 81 mg Oral chew 1 tab once daily (Last dose: 11/22/2016 06:30) 5. Atrovent 18 mcg/actuation Inhl aero 2 puff every 4 hours as needed (Last dose: 11/22/2016 14:00) 6. Calcium + Vitamin D 600 mg calcium- 200 unit Oral tab (Last dose: 11/21/2016) 7. DuoNeb 0.5 mg-3 mg(2.5 mg base)/3 mL Inhl nebu 3 mL 4 times per day (Last dose: 11/22/2016 06:00) 8. prednisone 10 mg Oral tab 1 tab once daily (Last dose: 11/22/2016 06:30) 9. omeprazole 20 mg Oral cpDR 1 cap daily PRN (Last dose: Unknown) 10. Zyrtec 10 mg Oral tab 1 tab once daily (Last dose: 11/21/2016) 11. tizanidine oral 0.5 cap as needed (Last dose: Unknown) 12. Norvasc 10 mg Oral tab 1 tab once daily (Last dose: 11/21/2016) 13. oxygen 3.5-4lnc 14. doxycycline hyclate 100 mg Oral cap 1 cap 2 times per day - PMHx: CAD; COPD; Diverticulosis; Hypercholesterolemia; Hypertension; TIA; - PSHx: Cardiac stents; - The history from nurses notes was reviewed: and I agree with what is documented. - Social history: Smoking status: Patient states former smoker of tobacco. No barriers to communication noted, The patient speaks fluent Greek. - : The pt / caregiver states he / she is not on anticoagulants. Home medication list is obtained from the patient. - Hospitalizations: : The patient was recently seen at [facility], and discharged 1 month(s) ago. - Exposure Risk Screening:: None identified. - Immunization history:: All immunizations up-to-date. - Family history: Not pertinent. - Social history:: the patient is a former smoker, the patient does not drink alcohol. ROS: 15:52 All systems are negative except as listed. The gastrointestinal and genitourinary pc components are also addressed in the HPI. Exam: 15:52 General Appearance: alert, the patient is in mild distress. pc 15:52 EENT: normal eye inspection, ears, nose and throat normal, pharynx normal, mucous membranes moist 15:52 Neck: normal inspection. 15:52 Respiratory: no respiratory distress, no pleuritic chest pain, speaks in full sentences, auscultation reveals wheezes. 15:52 Cardiovascular: normal heart rate, normal rhythm, no jugular venous distension appreciated, no murmurs, no gallop, no friction rub, peripheral pulses full and equal bilaterally. 15:52 Abdomen: non-tender, non-distended, no organomegaly. 15:52 Skin: normal color, warm, dry, no rashes, no lesions. 15:52 Extremities: non-tender, normal range of motion of all joints, no pedal edema. 15:52 Neuro: alert, oriented to person, place and time, cranial nerves normal as tested, no motor deficits, no sensory deficits. 15:52 Psych: normal mood. Vital Signs: 14:59 BP 137 / 63; Pulse 99; Resp 20; Temp 101.6(TE); Pulse Ox 94% on 4 lpm NC; Weight 49.9 dem1 kg / 110.01 lbs; Height 5 ft. 0 in. (152.40 cm); Pain 0/10; 15:26 Pulse 100 MON; Pulse Ox 94% ; ja5 15:27 BP 123 / 57 (auto/); ja5 15:56 Pulse 100 MON; Pulse Ox 95% ; ja5 15:57 BP 136 / 60 (auto/); ja5 16:26 Pulse 98 MON; Pulse Ox 96% ; ja5 16:27 BP 152 / 67 (auto/); ja5 16:56 Pulse 102 MON; Pulse Ox 95% ; ja5 16:57 BP 133 / 84 (auto/); ja5 17:11 Temp 100(O); ja5 17:26 Pulse 98 MON; Pulse Ox 95% ; ja5 17:27 BP 138 / 63 (auto/); ja5 17:57 BP 130 / 60 (auto/); ja5 17:57 Pulse 92 MON; Pulse Ox 97% ; ja5 18:26 Pulse 106 MON; ja5 18:27 BP 164 / 72 (auto/); ja5 18:41 BP 116 / 57; Pulse 100; Resp 24; Temp 100.1; Pulse Ox 94% on 4 lpm NC; Pain 0/10; tm5 21:54 BP 110 / 59; Pulse 74; Resp 20; Temp 97.6(O); Pulse Ox 96% on 4 lpm NC; Pain 0/10; tm5 14:59 Body Mass Index 21.48 (49.90 kg, 152.40 cm) dem1 MDM: 15:28 -Blood Culture (Adults Only), peripheral from different site, or from device/port/PICC pc etc. if present ordered. 15:28 Manager Data/Pulse Ox/q 15 min VS ordered. pc 15:28 IV Saline Lock ordered. pc 15:28 Rhythm Strip to chart ordered. pc 15:28 Acetaminophen Tablet 650 mg PO once ordered. pc 15:28 Obtain sample by nasopharyngeal swab ordered. pc 15:29 B-Type Natiuretic Peptide Ordered. EDMS 15:29 Basic Metabolic Profile Ordered. EDMS 15:29 CBC with Diff Ordered. EDMS 15:29 Cardiac Injury Profile Ordered. EDMS 15:29 Troponin Ordered. EDMS 15:29 -Blood Culture Ordered. EDMS 15:29 -Influenza A&B Rapid Antigen - Nose Ordered. EDMS 15:29 Chest, 2 View (pa\E\lat) Ordered. EDMS 15:30 ECG WITH READING ER PHYS+CARDIAG ordered. EDMS 15:52 Differential diagnosis: Chronic Obstructive Pulmonary Disease pneumonia. Plan: labs, pc CXR, EKG, nebs. 15:54 -Blood Culture (Adults Only), peripheral from different site, or from device/port/PICC lbd etc. if present complete. 15:56 BLOOD CULTURES Ordered. EDMS 16:04 Test interpretation: EKG. pc 16:50 B-Type Natiuretic Peptide Reviewed. pc 16:50 Basic Metabolic Profile Reviewed. pc 16:50 CBC with Diff Reviewed. pc 16:50 Cardiac Injury Profile Reviewed. pc 16:50 Troponin Reviewed. pc 16:53 CT Chest Without Contrast Ordered. EDMS 17:15 -Influenza A&B Rapid Antigen - Nose Reviewed. pc 17:24 REGULAR+DIET ordered. EDMS 17:37 Financial registration complete. gjb 18:52 Albuterol-Ipratropium 3 ml Inhalation once ordered. jc4 19:08 BED REQUEST+ADM ordered. EDMS 19:27 Antibiotic administration: The patient will be admitted to a regular floor, and has pc been given the following antibiotics: Rocephin and Zithromax given. Data reviewed: old medical records, vital signs, nurses notes, lab test results, all radiology studies and available results. Data reviewed: EKG(s). Test interpretation: LAB - all labs as ordered have been reviewed, interpreted and considered in the overall management of the clinical presentation; X-RAY - interpreted by Radiologist and personally reviewed, 1 view chest no acute disease, interpreted by Radiologist and personally reviewed, discussed with Radiologist, Chest CT; RUL, RLL, RML, LLL infiltrates. The patient has been re-examined and re-evaluated. The patient's symptoms have mildly improved after treatment. Physician consultation: Dr. Matti Freeman MD regarding admission. Disposition: The historical points, examination findings, and any diagnostic results supporting the provided diagnosis, were discussed with the patient or legal guardian. The need for further work-up and/or treatment in the hospital was explained. 19:28 cefTRIAXone 1 grams IVPB once over 30 mins; dilute in 50mL of NS or D5W ordered. pc 19:28 azithromycin 500 mg IVPB once over 1 hrs; dilute in 250mL of D5W or NS ordered. pc 20:11 Written Provider Order was scanned into [employer] and attached to record. ml3 20:20 Acetaminophen Tablet 650 mg PO once ordered. [facility] [place] 20:24 [facility] Payment Agreement was scanned into [employer] and attached to record. gjb 20:30 MAGNESIUM LEVEL Ordered. EDMS 20:32 Admission / Observation Status ordered. EDMS 20:38 2 GRAM SODIUM DIET ordered. EDMS 20:38 CBC WITH DIFFERENTIAL Ordered. EDMS 20:38 RENAL PROFILE Ordered. EDMS 20:38 SPUTUM CULTURE AND GRAM STAIN Ordered. EDMS 20:40 TROPONIN Ordered. EDMS 20:40 TROPONIN Ordered. EDMS 20:44 Duplex, Ext LOWER veins, bilat Ordered. EDMS 21:52 Ondansetron 4 mg IVP once ordered. tm5 EC:04 Rate is 98 beats/min. Rhythm is regular, Normal Sinus Rhythm with PACs. QRS Julian is pc Normal. AL interval is normal. QRS interval is prolonged at 126 msec. QT interval is normal. No Q waves. T waves are Normal. No ST changes noted. Clinical impression: Normal Sinus Rhythm and RBBB. No change from previous ECG on November 20, 2016. Administered Medications: 16:18 Drug: Acetaminophen 650 mg [acetaminophen 325 mg tablet (2 tabs)] Route: PO; jc4 17:11 Follow up: Temp 100 Oral ja5 19:10 Drug: Albuterol-Ipratropium 3 ml [ipratropium-albuterol 0.5 mg-3 mg(2.5 mg base)/3 mL jc3 nebulization soln (3 mL)] Route: Inhalation; 19:43 Drug: cefTRIAXone 1 grams [ceftriaxone 1 gram solution for injection] Route: IVPB; tm5 Infused Over: 30 mins; Site: left antecubital; 20:15 Follow up: IV Status: Completed infusion mlc 20:15 Drug: azithromycin 500 mg [azithromycin 500 mg intravenous solution] Route: IVPB; mlc Infused Over: 1 hrs; Site: left antecubital; 21:15 Follow up: Response: No Adverse Reaction; IV Status: Completed infusion; IV Intake: tm5 250ml 20:20 Drug: Acetaminophen 650 mg [acetaminophen 325 mg tablet (2 tabs)] Route: PO; mlc 21:53 Follow up: Response: No Adverse Reaction; Pain is decreased tm5 21:50 Drug: Ondansetron 4 mg Route: IVP; Site: left antecubital; tm5 22:41 Follow up: Response: Nausea is resolved; No Adverse Reaction tm5 Signatures: Dispatcher [employer] EDMS Real Hu MD MD pc Daly, Linda, [employer] lbd Katya Vicente, [employer] ml3 Humaira Knox RN RN jc4 Jazzmine Michaels RN RN mlc Beck, Gabriela gjb Matice, Tonya, RN RN tm5 Ck Montalvo jc3 Yesica Pemberton RN ja5 The chart was reviewed and I authenticate all verbal orders and agree with the evaluation and treatment provided.Corrections: (The following items were deleted from the chart) 20:30 20:10 MAGNESIUM LEVEL ordered. EDMS EDMS Attachments: 20:11 Written Provider Order ml3 20:24 [facility] Payment Agreement gjb MTDD
[2016-11-22 22:54] VITALS: BP 117/60
[2016-11-22] MEDS ORDERED: MAG SULF 1GM/100ML (MAG RUN) 1 GM in APPROPRIATE DILUENT 1 EA IV ONE (22:54)
--- NOTE | 2016-11-22 23:11 | PHACANCOPD ---
PHARMACY VANCOMYCIN DOSING Pt Demographics Demographics Patient Age:81 , Weight:50.100 , Gender: female Adjusted Body Weight Date: 11/22/16, Adjusted Body Weight: [47.3] Kg Events Past 24 Hours Events Past 24 Hours: NO: Change in CrCl, Dialysis, Diuretic Therapy, Elevation in WBC, Fever, Other, Pending Diagnostics, Pending Procedures Vancomycin Vancomycin Target Ranges: 15-20 mcg/ml Vancomycin Load Y/N: Yes Load Dose Date Time Vancomycin Load Dose: 1000MG Date: 11-23 Time: 0000 Vancomycin Dose Date: 11/22/16. Current Vancomycin Dose: [750MG Q24H] Intermittent Dosing?: No Labs Labs Item Value Date Time White Blood Count 8.8 K/mm3 11/22/16 1523 Creatinine 0.77 MG/DL 11/22/16 1523 Vital Signs Label Value Date Time Patient Temperature 97.3 degrees F 11/22/16 2254 Temperature Source Tympanic 11/22/16 2254 Micro Microbiology 11/22/16 Blood Culture, Received Pending 11/22/16 Blood Culture, Received Pending 11/22/16 Influenza Virus Type A Antigen - Final, Complete 11/22/16 Influenza Virus Type B Antigen - Final, Complete Creatinine Clearance Date:11/22/16. Creatinine Clearance: [35]. Pending Labs Trough 01 @2300 Assessment and Plan Maintaining Current Dose?: Yes Reason for dose change: No Dose Change Pharmacist Note Pharmacist Note Date: 11/22/16. Pharmacist note:Dosed at 750mg q24h with a trought ordered for 01 @2300. Will continue to monitor and make adjustments as needed. [facility] Nov 22, 2016 23:11
--- NOTE | 2016-11-22 23:15 | REP ---
PA and lateral chest radiograph 11/22 16 Indication: Redness of breath Comparison: PA and lateral chest 11/20/2016, CTA chest 08/06/2016 Findings:: There has been a prior median sternotomy. The cardiac silhouette is of normal size. There is pleural thickening/scarring and/or atelectasis within the major fissure best seen in the lateral view. Bibasilar fibro atelectatic changes are noted. There are [id number] degenerative changes in thoracic spine There is hyperinflation flattening of diaphragms consistent with COPD Impression: Prior median sternotomy. The cardiac silhouette is of normal size. Bibasilar fibro atelectatic changes. COPD Pleural thickening/scarring and/or atelectasis within the major fissure, best seen in the lateral view Signed by Loretta Regan MD 11/22/2016 11:07 P
[2016-11-22] MEDS: HEPARIN SOD (PORCINE) 5000 UNITS/ML VIAL SQ SCH (23:36)
[2016-11-22] MEDS: methylPREDNISolone INJ 125 MG/2 ML VIAL (J2930) IV SCH (23:42)
[2016-11-23] MEDS ORDERED: VANCOMYCIN HCL 1,000 MG, VIAL MATE ADAPTER 1 EACH in D5W 250 ML IV ONE ×3
[2016-11-23] MEDS: IPRATROPIUM 0.5MG/ALBUTEROL 2.5MG INH SOL UD 3ML (DUONEB)(J7620) NEB SCH ×4 (00:59→19:51)
[2016-11-23] MEDS ORDERED: tiZANidine 4 MG TAB PO PRN (01:30)
[2016-11-23] MEDS: HEPARIN SOD (PORCINE) 5000 UNITS/ML VIAL SQ SCH ×3 (06:00→20:58)
[2016-11-23] MEDS: CEFEPIME HCL 1 GM in D5W MINI-BAG PLUS 50 ML IV SCH ×2 (06:01→17:09)
[2016-11-23 06:17] LABS: BASO % 0.6 % (0.0-1.0); EOS % 0.3 % (0.0-3.0); LARGE UNSTAINED CELL # 0.1 K/mm3 (0.0-0.4); LARGE UNSTAINED CELL % 0.9 % (0.0-4.0); LYMPH # 0.4 K/mm3 (1.5-4.5); LYMPH % 5.6 % (24.0-44.0); MEAN CORPUSCULAR HEMOGLOBIN 29.9 pg (27.0-33.0); MEAN CORPUSCULAR HGB CONC 31.4 g/dl (32.0-36.5); MEAN CORPUSCULAR VOLUME 95.1 fl (80.0-96.0); MONO # 0.1 K/mm3 (0.0-0.8); MONO % 1.6 % (0.0-5.0); NEUTROPHILS % 91.1 % (36.0-66.0); PLATELET COUNT, AUTOMATED 302 k/mm3 (150-450); WHITE BLOOD COUNT 6.6 K/mm3 (4.0-10.0)
[2016-11-23 06:25] VITALS: BP 122/61
[2016-11-23 06:34] LABS: ALBUMIN 3.1 GM/DL (3.2-5.2); ANION GAP 9 MEQ/L (8-16); BLOOD UREA NITROGEN 19 MG/DL (7-18); CARBON DIOXIDE LEVEL 28 MEQ/L (21-32); CHLORIDE LEVEL 103 MEQ/L (98-107); CREATININE FOR GFR 0.86 MG/DL (0.55-1.02); GLOMERULAR FILTRATION RATE > 60.0 (>32); GLUCOSE, FASTING 190 MG/DL (83-110); PHOSPHORUS LEVEL 3.8 MG/DL (2.5-4.9); POTASSIUM SERUM 4.2 MEQ/L (3.5-5.1); SODIUM LEVEL 140 MEQ/L (136-145)
[2016-11-23 08:00] VITALS: BP 142/63
--- NOTE | 2016-11-23 08:02 | ECGEPIP ---
Stationary ECG Study [facility] - ED Test Date: 2016-11-22 Pat Name: MARLENE BANG Department: Room: - Gender: F Recovery Collector: felix : 1935 Requested By: Real Chu Order Number: [id number] Reading MD: Janeth Guevara Measurements Intervals [place] Rate: 98 P: 78 CA: 127 QRS: 39 QRSD: 126 T: 47 QT: 370 QTc: 472 Interpretive Statements SINUS RHYTHM WITH FREQUENT SUPRAVENTRICULAR PREMATURE COMPLEXES RIGHT BUNDLE BRANCH BLOCK INCREASED RATE/ECTOPY COMPARED 11/20/16 Electronically Signed On 11-23-2016 8:01:55 EST by Janeth Guevara
[2016-11-23] MEDS: methylPREDNISolone INJ 125 MG/2 ML VIAL (J2930) IV SCH ×2 (08:40→17:09)
[2016-11-23] MEDS: ASPIRIN 81 MG ENTERIC TAB PO SCH (08:40)
[2016-11-23] MEDS: METOPROLOL TART 12.5 MG PER 1/2 TAB PO SCH (08:40)
[2016-11-23] MEDS: LISINOPRIL 10 MG TAB PO SCH (08:40)
[2016-11-23] MEDS: TIOTROPIUM INHALER/CAPSULE (SPIRIVA) INH SCH ×2 (09:00→13:27)
--- NOTE | 2016-11-23 09:36 | IPN ---
DATE: 11/23/2016 81-year-old female seen at bedside, admitted last evening for her pneumonia. She feels that she is breathing much better. She does have occasional expiratory wheeze and productive sputum, but no hemoptysis. No nausea or vomiting. Her appetite is good. OBJECTIVE: Temperature is 96, pulse 81, respiratory rate is 20, blood pressure (BP) 142/63, SPO2 is 92% on 2 liters. General: The patient appears to be in no acute distress. She is alert, pleasant to talk to. HEENT: Unremarkable. Lungs: Diminished bibasilar breath sounds with occasional rhonchi and wheeze noted in the right mid upper lung field. Heart: Regular rate and rhythm. Abdomen: Soft. Extremities: No edema. No calf tenderness. LABORATORY DATA: White count 6.6, hemoglobin 9.6, platelets 302,000. Sodium 140, potassium 4.2, chloride 103, bicarb 28, anion gap 9, BUN 19, creatinine 0.86, glucose is 190, phosphorus 3.8. Cardiac enzymes with troponin has been less than 0.02 times three. Her BNP was 142. Workup in the emergency department included an ultrasound of the lower extremities which was negative for deep vein thrombosis (DVT). Her chest CT without contrast showed right upper, right middle and bilateral lower lobe infiltrates, small right pleural effusion. Chest x-ray did suggest pleural thickening, scarring and/or atelectasis within the major fissure, best seen on the lateral view. Bibasilar fibro atelectatic changes comparable with chronic obstructive pulmonary disease (COPD) and a prior median sternotomy was noted. EKG showed sinus rhythm with right bundle branch block and occasional PVC, otherwise unremarkable. No acute ST-T wave abnormalities. Blood cultures are pending. Influenza A and B are negative. ASSESSMENT AND PLAN: 1. Healthcare associated pneumonia. The patient was recently at [facility] for a cardiac procedure within the last month. Will go ahead and cover accordingly with broad-spectrum antibiotics. Cultures are pending. She does clinically appear to be stable otherwise. 2. Chronic obstructive pulmonary disease (COPD). Will continue with DuoNeb as well as her inhalers. 3. History of coronary artery disease, stable. No events on telemetry. She will be downgraded to the general medical floor today. 4. Hypertension, stable. 5. Prior history of transient ischemic attack (TIA), no residual symptoms. 6. Muscle cramps. Can continue with Zanaflex. 7. DVT prophylaxis, on subcutaneous heparin. DISPOSITION: Downgraded her to general medical floor. Continue with Maxipime, IV vancomycin, as well as DuoNeb, Mucinex for cough, and Solu-Medrol. Anticipate her stay here to be greater than two midnights.
[2016-11-23 10:30] VITALS: BP 141/62
[2016-11-23 14:00] VITALS: BP 129/60
[2016-11-23] MEDS: guaiFENesin ER 600 MG TAB PO PRN (14:26)
--- NOTE | 2016-11-23 21:18 | HPE ---
DATE OF ADMISSION: 11/22/2016 PRIMARY CARE PROVIDER: Dr. Anson Lomeli. AGRICULTURAL EDUCATION TEACHER: Dr. Justice. CHIEF COMPLAINT: Shortness of breath. HISTORY OF PRESENT ILLNESS: Ms. Bowers is an 81-year-old female with past medical history of chronic obstructive pulmonary disease (COPD), coronary artery disease (CAD), status post angioplasty, who presented to the emergency department (ED) [facility] with complaint of worsening shortness of breath. The patient is a poor historian. At baseline has intermittent episodes of shortness of breath but unable to tell with what activity, "it's sporadic." However, symptoms worsened in the last three days. She recently presented to the ED on 11/20/2016 when she thought her legs were swollen around the same time as the onset of her shortness of breath. She was then diagnosed with COPD exacerbation, was given Dexamethasone 4 mg and DuoNeb, and was discharged home. However, symptoms persisted and she actually started taking doxycycline and 10 mg of prednisone yesterday which she has around the house as needed. Episode then worsened today while sitting and watching TV. She then put on four liters nasal cannula, took DuoNeb without significant improvement. Because of her persistent symptoms, she decided to come in for further evaluation. Normally, can walk more than one block without trouble breathing but today feels winded just around the house. Associated with occasional cough with clear phlegm, leg swelling. No fevers, chills, chest pain, palpitations, nausea, vomiting. No recent travel and no prolonged immobile state. No sick contacts. Of note, she was admitted in the middle of October 2016. At that time, she was found to have a non-ST segment elevation myocardial infarction (NSTEMI) and was then transferred to [facility]. It is unclear what was done at [facility]. The patient stated that she did have angioplasty and questionable stent placement. Since her discharge, had been feeling well up until the last few days. In the ED, was given azithromycin, Rocephin, DuoNeb, Tylenol 650 times one. PAST MEDICAL HISTORY: 1. Pulmonary hypertension. 2. Coronary artery disease (CAD) unclear whether or not she had stent placement. 3. Chronic obstructive pulmonary disease (COPD), uses oxygen only as needed, infrequent. 4. Transient ischemic attack (TIA). 5. Malaria. 6. Dysentery. 7. Echocardiogram from 10/2016, showed ejection fraction (EF) of 75%, right systolic pulmonary pressure 72. PAST SURGICAL HISTORY: 1. Colonoscopy. 2. Right kidney surgery removal, etiology unclear. 3. Aortic surgery more than 40-50 years ago. 4. Appendectomy. ALLERGIES: LIDOCAINE, PROCAINE - reaction unknown. HOME MEDICATIONS: - Ventolin two puffs inhaled every four hours as needed - DuoNeb every six hours scheduled - alprazolam 0.2 three times a day as needed - aspirin 81 mg daily - calcium/vitamin D 500/200 daily - doxycycline 100 mg by mouth twice a day, starting taking this yesterday - Mucinex 600 mg by mouth twice a day - lisinopril 10 mg by mouth daily - metoprolol tartrate 12.5 mg by mouth daily - Nitrostat 0.4 sublingual every five as needed - Spiriva inhaled daily - tizanidine 0.5 as needed for muscle spasm SOCIAL HISTORY: The patient is an ex-smoker for greater than 40 years. No alcohol or drug use. Lifetime travel includes [place], all throughout the continents except for [place]. 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 Currently lives at home. Her son's family is residing with her. One dog. No history of asbestos or tuberculosis. The patient was exposed to [place]. FAMILY HISTORY: No complaints offered due to advanced age. REVIEW OF SYSTEMS: CONSTITUTIONAL: Denies fevers, chills, rigors, weight changes. HEENT: Denies headaches, lightheadedness, dizziness, blurry vision, difficulty with speech and swallow. CARDIOVASCULAR: As above. PULMONARY: As above. GASTROINTESTINAL: Denies hematochezia, melena, or hematemesis, nausea, vomiting, diarrhea, constipation. GENITOURINARY: Positive for renal disease unclear reasons, status post surgery. MUSCULOSKELETAL: No bone, muscle, joint pain. NEUROLOGICAL: No paralysis, paresthesia, headaches. ENDOCRINE: Negative for diabetes, or thyroid disease. LYMPHATICS: No lumps, bumps, or swelling anywhere in neck, axilla, or groin. HEMATOLOGY: No abnormal bleeding or bruising. PHYSICAL EXAMINATION: VITAL SIGNS: Blood pressure 137/63, heart rate 99, respiratory rate 20, temperature 101.6, pulse oximetry 94% on four liters nasal cannula. Body mass index (BMI) 21. GENERAL: The patient was lying in bed approximately 40 degree angle, comfortable. No acute distress although she does appear to be winded after speaking in sentences. Cooperative, pleasant. HEENT: Normocephalic, atraumatic. Moist oral mucosa. No lesions, thrush appreciated. Extraocular movement intact. NECK: Supple. Trachea midline. No jugular venous distention (JVD). CHEST: Symmetric chest rise. No abdominal muscle use. Breath sounds are diminished bilateral lung bases. No wheezing, crackles. HEART: Mildly tachycardic. There is a systolic murmur in the second intercostal border without radiation to the carotid. ABDOMEN: Soft, nontender, nondistended. Bowel sounds positive. No guarding, no rebound. EXTREMITIES: There is 1-2 pitting edema bilateral lower extremities. No sacral edema. This is only localized to her pretibial region. LABORATORY DATA: WBC 8.8, hemoglobin 9.8, hematocrit 29.4, platelets 334. Neutrophils 72.5. Sodium 144. Potassium 3.5, chloride 104, carbon dioxide 30, BUN 23, creatinine 0.77, glucose 84, calcium 8.5, magnesium 1.8. Troponin negative. BNP 142. IMAGING: EKG showed sinus with PAC, right bundle branch block, rate is 98. CT chest reports right upper and right mid and bilateral lower lobe infiltrates with small pleural effusion. IMPRESSION AND PLAN: Ms. Bowers is an 81-year-old female with past medical history of coronary artery disease (CAD), chronic obstructive pulmonary disease (COPD), who presented with shortness of breath and fever. 1. Shortness of breath. Likely secondary to hospital-acquired pneumonia as she was recently admitted in the last month, versus coronary artery disease (CAD) versus pulmonary embolism ( PE). The patient will be admitted and monitored closely. Have started her on broad-spectrum antibiotics to cover for hospital-acquired pneumonia with vancomycin and cefepime. Check sputum culture; blood culture is pending. Will also treat empirically for COPD exacerbation. Have started Solu-Medrol 60 every eight. Add incentive spirometry. Because of her recent CAD, troponin will continue to be monitored. Unfortunately, CT was performed without contrast. Because of her leg pain, we have also ordered ultrasound bilateral lower extremities to rule out any possibility of clot. The patient will be monitored closely in the progressive care unit (PCU). 2. History of coronary artery disease. Continue aspirin, beta yaw. She is not on a statin. Reason for this is unclear. We will defer to outpatient team. 3. Hypertension. Continue lisinopril 10 mg daily, Lopressor 12.5 mg by mouth daily. Monitor her respiratory as she does have underlying COPD, while on beta yaw. 4. History of chronic obstructive pulmonary disease. Continue home does of Spiriva, nebulizer treatments, Nasonex, and Solu-Medrol. 5. Deep venous thrombosis (DVT) prophylaxis: Sequential compression devices (SCDs), thromboembolism deterrent stockings (TEDs) and heparin. DISPOSITION: Due to patient's condition, we expect her stay to be greater than two midnights. My preceptor for this patient encounter was Dr. Matti Freeman. The preceptor was physically present in the building during the encounter and was fully available as needed. All aspects of the patient interview, examination, medical decision making process, and medical care plan development were reviewed and approved by the preceptor. The preceptor is aware and concurs with the plan as stated in the body of this note and will attest to such by his/her co-signature. cc: Dr. Anson IVORY
[2016-11-23 22:00] VITALS: BP 114/55
[2016-11-24] MEDS ORDERED: VANCOMYCIN HCL 750 MG, VIAL MATE ADAPTER 1 EACH in D5W 250 ML IV SCH ×3
[2016-11-24] MEDS: IPRATROPIUM 0.5MG/ALBUTEROL 2.5MG INH SOL UD 3ML (DUONEB)(J7620) NEB SCH ×4 (00:08→19:46)
[2016-11-24] MEDS: methylPREDNISolone INJ 125 MG/2 ML VIAL (J2930) IV SCH ×2 (00:13→09:36)
[2016-11-24] MEDS: guaiFENesin ER 600 MG TAB PO PRN (02:08)
[2016-11-24] MEDS: CEFEPIME HCL 1 GM in D5W MINI-BAG PLUS 50 ML IV SCH (05:36)
[2016-11-24] MEDS: HEPARIN SOD (PORCINE) 5000 UNITS/ML VIAL SQ SCH ×3 (05:36→21:14)
[2016-11-24 05:58] LABS: BASO % 0.1 % (0.0-1.0); EOS % 0.3 % (0.0-3.0); LARGE UNSTAINED CELL # 0.1 K/mm3 (0.0-0.4); LARGE UNSTAINED CELL % 0.7 % (0.0-4.0); LYMPH # 0.6 K/mm3 (1.5-4.5); LYMPH % 6.2 % (24.0-44.0); MEAN CORPUSCULAR HEMOGLOBIN 30.1 pg (27.0-33.0); MEAN CORPUSCULAR HGB CONC 32.4 g/dl (32.0-36.5); MEAN CORPUSCULAR VOLUME 92.9 fl (80.0-96.0); MONO # 0.2 K/mm3 (0.0-0.8); MONO % 2.5 % (0.0-5.0); NEUTROPHILS % 90.2 % (36.0-66.0); PLATELET COUNT, AUTOMATED 315 k/mm3 (150-450); RED CELL DISTRIBUTION WIDTH 14.6 % (11.5-14.5); WHITE BLOOD COUNT 8.8 K/mm3 (4.0-10.0)
[2016-11-24 06:00] VITALS: BP 149/66
[2016-11-24 06:10] LABS: ANION GAP 9 MEQ/L (8-16); BLOOD UREA NITROGEN 21 MG/DL (7-18); CALCIUM LEVEL 8.7 MG/DL (8.8-10.2); CARBON DIOXIDE LEVEL 26 MEQ/L (21-32); CHLORIDE LEVEL 104 MEQ/L (98-107); CREATININE FOR GFR 0.77 MG/DL (0.55-1.02); GLOMERULAR FILTRATION RATE > 60.0 (>32); GLUCOSE, FASTING 161 MG/DL (83-110); PHOSPHORUS LEVEL 2.7 MG/DL (2.5-4.9); POTASSIUM SERUM 4.2 MEQ/L (3.5-5.1); SODIUM LEVEL 139 MEQ/L (136-145)
[2016-11-24] MEDS: TIOTROPIUM INHALER/CAPSULE (SPIRIVA) INH SCH (07:26)
[2016-11-24] MEDS: METOPROLOL TART 12.5 MG PER 1/2 TAB PO SCH (09:35)
[2016-11-24] MEDS: LISINOPRIL 10 MG TAB PO SCH (09:36)
[2016-11-24] MEDS: ASPIRIN 81 MG ENTERIC TAB PO SCH (09:36)
[2016-11-24] MEDS: LevoFLOXacin 500 MG TABLET PO SCH (10:07)
--- NOTE | 2016-11-24 13:32 | IPN ---
DATE: 11/24/2016 81-year-old female seen at bedside. No overnight issues reported. Feels that she is breathing better. She denies any hemoptysis. She has had some intermittent productive cough without any chest pain. No nausea or vomiting. She is tolerating her breakfast meal this morning. OBJECTIVE: Temperature is 97, pulse 86, respiratory rate is 20, blood pressure (BP) 149/66, SpO2 is 96% on 2 liters. General: The patient appears to be in no acute distress. She is alert, oriented, pleasant talk to. HEENT: Intermittent expiratory wheeze clears with cough. Heart: Regular rate and rhythm. Abdomen: Soft. Extremities: No edema. No calf tenderness. LABORATORY DATA: White count is 8.8, hemoglobin 9.3, platelets are 315,000. Sodium 139, potassium 4.2, chloride 104, bicarbonate 26, anion gap 9, BUN 21, creatinine 0.77, glucose is 161, albumin 3.0, troponin less than 0.02. Sputum culture is pending. Blood cultures remain negative times two for 24 hours. ASSESSMENT AND PLAN: 1. Healthcare-associated pneumonia. Shows some good improvement. Blood cultures, sputum cultures are pending. We are going to go ahead and switch her over to oral Levaquin today. 2. Chronic obstructive pulmonary disease (COPD). Continue with DuoNebs. Her steroids are making her quite agitated and nervous. She did complain of later in the visit. We will go ahead and discontinue the Solu-Medrol. She continues with supportive therapy. She is home oxygen dependent and appears to be at her baseline oxygen requirements. 3. History of coronary artery disease, stable. No events were seen on telemetry and she was downgraded yesterday to the medical floor. No chest pain reported. 4. Hypertension, stable. 5. Prior history of transient ischemic attack (TIA) with no residual symptoms. 6. Muscle cramps. Continue Zanaflex. 7. Deep venous thrombosis (DVT) prophylaxis. Subcutaneous heparin. DISPOSITION: She does show continued improvement. We will stop her Maxipime and IV vancomycin. We will de-escalate to Levaquin today. Discontinue Solu-Medrol. Anticipate home discharge tomorrow.
[2016-11-24 14:00] VITALS: BP 142/61
[2016-11-24] MEDS ORDERED: LEVA500T PO (15:41)
[2016-11-24 22:00] VITALS: BP 117/57
--- NOTE | 2016-11-24 23:42 | EDDOCDS ---
Nurse's Notes [facility] Name: Harmony Bowers Age: 81 yrs Sex: Female : 1935 Arrival Date: 11/22/2016 Time: 14:48 Bed 15 Private MD: Anson Lomeli M.D. Diagnosis: Bronchopneumonia, unspecified organism-RUL, RML, RLL, LLL;Chronic obstructive pulmonary disease with acute lower respiratory infection Presentation: 11/22 14:53 Presenting complaint: EMS states: called to residence by patient's [id number]. jc4 Allegedly patient had sudden onset of shortness of breath this afternoon. Suicide/Homicide risk assessment- the patient denies having any suicidal and/or homicidal ideations and does not present with any other emotional, behavioral or mental health complaints. Status: Patient is not a community service representative or dependent. Transition of care: patient was not received from another setting of care. Care prior to arrival: See EMS report. Medications administered prior to arrival: Albuterol/Atrovent neb Saline lock initiated. Glucose check. 109 mg/dl Oxygen administered by EMS. 14:53 Acuity: KENNEDY Level 3 [facility] 14:53 Method Of Arrival: Ambulance [facility] 15:06 Adult Sepsis Screening: The patient does not have new or worsening altered mentation. 4 Patient's respiratory rate is less than 22. Systolic blood pressure is greater than 100. Patient has a qSOFA score of 0- Negative Sepsis Screen. Triage Assessment: 15:04 General: Appears in no apparent distress. Pain: Denies pain. The patient is triaged at [facility] the bedside. See Assessment in Nurses Notes section of ED record. Respiratory: Onset: The symptoms/episode began/occurred this afternoon. Historical: - Allergies: Lidocaine; procaine (bulk); - Home Meds: 1. albuterol sulfate 90 mcg/actuation Inhl HFAA 2 puffs every 4 hours prn (Last dose: 11/22/2016 14:00) 2. albuterol sulfate 2.5 mg /3 mL (0.083 %) Inhl nebu every 6 hours (Last dose: 11/22/2016 13:30) 3. alprazolam 0.25 mg Oral TbDL 1 tab as needed (Last dose: 11/22/2016 06:30) 4. aspirin 81 mg Oral chew 1 tab once daily (Last dose: 11/22/2016 06:30) 5. Atrovent 18 mcg/actuation Inhl aero 2 puff every 4 hours as needed (Last dose: 11/22/2016 14:00) 6. Calcium + Vitamin D 600 mg calcium- 200 unit Oral tab (Last dose: 11/21/2016) 7. DuoNeb 0.5 mg-3 mg(2.5 mg base)/3 mL Inhl nebu 3 mL 4 times per day (Last dose: 11/22/2016 06:00) 8. prednisone 10 mg Oral tab 1 tab once daily (Last dose: 11/22/2016 06:30) 9. omeprazole 20 mg Oral cpDR 1 cap daily PRN (Last dose: Unknown) 10. Zyrtec 10 mg Oral tab 1 tab once daily (Last dose: 11/21/2016) 11. tizanidine oral 0.5 cap as needed (Last dose: Unknown) 12. Norvasc 10 mg Oral tab 1 tab once daily (Last dose: 11/21/2016) 13. oxygen 3.5-4lnc 14. doxycycline hyclate 100 mg Oral cap 1 cap 2 times per day - PMHx: CAD; COPD; Diverticulosis; Hypercholesterolemia; Hypertension; TIA; - PSHx: Cardiac stents; - The history from nurses notes was reviewed: and I agree with what is documented. - Social history: Smoking status: Patient states former smoker of tobacco. No barriers to communication noted, The patient speaks fluent [place]. - : The pt / caregiver states he / she is not on anticoagulants. Home medication list is obtained from the patient. - Hospitalizations: : The patient was recently seen at [facility], and discharged 1 month(s) ago. - Exposure Risk Screening:: None identified. - Immunization history:: All immunizations up-to-date. - Family history: Not pertinent. - Social history:: the patient is a former smoker, the patient does not drink alcohol. Screenin:14 Screening information is obtained from the patient. Fall risk: No risks identified. ja5 Assistance ADL's: requires no assistance with activities of daily living. Abuse/DV Screen: The patient / caregiver reports he/she is: not in a situation that causes fear, pain or injury. Nutritional screening: On no prescribed diet. Advance Directives: Currently, there is a health care proxy, Chantal Bowers, daughter. There is an active DNR order but there is no copy available at this time. There is a living will, but a copy is not available at this time. There is an active Power of Flour Worker, chantal Bowers, daughter. home support is adequate. Assessment: 15:10 General: Appears in no apparent distress, Behavior is appropriate for age, cooperative. ja5 Pain: Denies pain. Neurological: Level of Consciousness is awake, alert, Oriented to person, place, time. Cardiovascular: Capillary refill < 3 seconds Heart tones S1 S2 present Edema is 1+ to left ankle, left foot, right ankle and right foot Rhythm is sinus tachycardia. Cardiovascular: Chest pain is denied. Respiratory: Airway is patent Respiratory effort is even, Respiratory pattern is tachypnea Breath sounds are clear bilaterally. Breath sounds are diminished in right posterior lower lobe. Derm: Skin is intact, is thin, Skin is dry, Skin is pink, warm & dry. 16:25 General: Pt resting on stretcher with eyes closed. Respirations easy and full. No jc4 distress noted at this time. Call auguste in reach. 18:13 General: patient resting in stretcher, denies pain at this time. food tray just ja5 arrived.. 18:46 General: Patient consumed 100% of food, denies pain at this time, respirations ja5 increased with minimum activity.. 20:56 General: Appears in no apparent distress, Behavior is appropriate for age, cooperative, af2 pt seated in upright position, resting quietly with eyes closed. bed locked and in lowest position, side rails up x2, call light is within reach. will continue to monitor. offers no complaints at this time.. 21:13 General: Entered pt room to respond to call auguste; pt stated "My stomach doesn't feel js15 right since I ate dinner; I feel like I want to throw up". Informed hospitalist and orders given . Pt pressed call auguste again and stated that she had to use the restroom. Informed pt that because she was on a compliance monitor and was receiving an IV infusion of antibiotics that the safest method for her to have a bowel movement was to use a bedside commode and stay connected to compliance monitor. Pt adamantly refused multiple times stating "I have to have a bowel movement and I'm not doing it in here." Primary nurse Piter Oglesby made aware. Pt ambulated independently and without difficulty to restroom on continuous O2 NC with this life insurance underwriter and Glynn CADE. . 21:54 Reassessment: Patient appears in no apparent distress at this time. Patient denies pain tm5 at this time. Patient states feeling better. Patient states symptoms have improved. Cardiovascular: Rhythm is sinus rhythm No ectopy. 22:08 General: called PCU SBAR was received by RN stated that she will be ready for pt's tm5 admission in 15 minutes. 22:40 General: pt transported to the floor via stretcher with RN & telemetry & chart. tm5 Vital Signs: 14:59 BP 137 / 63; Pulse 99; Resp 20; Temp 101.6(TE); Pulse Ox 94% on 4 lpm NC; Weight 49.9 dem1 kg; Height 5 ft. 0 in. (152.40 cm); Pain 0/10; 15:26 Pulse 100 MON; Pulse Ox 94% ; ja5 15:27 BP 123 / 57 (auto/); ja5 15:56 Pulse 100 MON; Pulse Ox 95% ; ja5 15:57 BP 136 / 60 (auto/); ja5 16:26 Pulse 98 MON; Pulse Ox 96% ; ja5 16:27 BP 152 / 67 (auto/); ja5 16:56 Pulse 102 MON; Pulse Ox 95% ; ja5 16:57 BP 133 / 84 (auto/); ja5 17:11 Temp 100(O); ja5 17:26 Pulse 98 MON; Pulse Ox 95% ; ja5 17:27 BP 138 / 63 (auto/); ja5 17:57 BP 130 / 60 (auto/); ja5 17:57 Pulse 92 MON; Pulse Ox 97% ; ja5 18:26 Pulse 106 MON; ja5 18:27 BP 164 / 72 (auto/); ja5 18:41 BP 116 / 57; Pulse 100; Resp 24; Temp 100.1; Pulse Ox 94% on 4 lpm NC; Pain 0/10; tm5 21:54 BP 110 / 59; Pulse 74; Resp 20; Temp 97.6(O); Pulse Ox 96% on 4 lpm NC; Pain 0/10; tm5 14:59 Body Mass Index 21.48 (49.90 kg, 152.40 cm) dem1 Vitals: 14:59 Log In Time N/A - ambulance arrival. dem1 ED Course: 14:49 Patient visited by Shasta Campos, Long Term Care Social Worker. lbd 14:49 Patient moved to Waiting lbd 14:50 Anson Lomeli is Private Physician. lbd 14:50 Humaira Knox, RN is Primary Nurse. lbd 14:50 Patient moved to 15 lbd 14:55 Triage Initiated jc4 14:59 Patient visited by Hussein Berrios. dem1 14:59 Pt greeted and oriented to ED. Patient advised of names of staff involved in care, [facility] location of call auguste, wait times and NPO status. Patient has correct armband on for positive identification. Placed in gown. Bed in low position. Call light in reach. Side rails up X2. school lunch monitor on. Pulse ox on. NIBP on. 15:17 Maintain field IV. Dressing intact. Site clean & dry. Gauge & site: 20 g Left AC. ja5 15:25 Real Hu MD is Attending Physician. pc 15:37 Patient visited by Kelly Patel PCA. ct3 15:37 EKG done. (by ED staff). Reviewed by Real Hu MD. ct3 15:52 Patient visited by Real Hu MD. pc 16:21 -Influenza A&B Rapid Antigen - Nose Sent. jc4 16:27 BLOOD CULTURES Sent. jc4 16:28 Patient visited by Kelly Patel PCA. ct3 17:32 Patient visited by Real Hu MD. pc 18:32 Patient visited by Rosa Craven PCA. adelia 18:57 Primary Nurse role handed off by Humaira Knox, JOHN ja5 19:06 Patient visited by Sheela Parker RN. tm5 19:06 The patient / caregiver is instructed regarding the plan of care and ED course. Report tm5 received from Nieves Diaz RN, assumed care of pt at this time. 19:18 CT Chest Without Contrast Returned. EDMS 19:28 Matti Freeman MD is Hospitalizing Provider. pc 20:11 Written Provider Order was scanned into Cliq and attached to record. ml3 20:24 Patient name changed from Harmony\\S\\\\S\\Bang\\S\\ to Harmony\\S\\ \\S\\Bang. EDMS 20:24 [facility] Payment Agreement was scanned into Cliq and attached to record. gjb 20:37 Patient visited by Sheela Parker RN. tm5 20:57 Patient visited by Marj Shipman RN. af2 21:03 Patient moved to Ultrasound dmg 21:06 Patient moved to 15 dmg 21:26 Patient moved to Ultrasound dmg 21:34 Patient visited by Sheela Parker RN. tm5 21:36 Patient moved to Sono. tm5 21:39 Patient visited by Sheela Parker RN. tm5 21:48 Patient moved to 15 dmg 21:50 Patient moved back from Sono. tm5 21:51 Patient visited by Sheela Parker RN. tm5 21:54 No procedures done that require assistance. tm5 22:08 Patient visited by Sheela Parker RN. tm5 22:13 Duplex, Ext LOWER veins, bilat Returned. EDMS 22:40 Patient visited by Sheela Parker RN. tm5 11/23 09:12 ECG/EKG was scanned into Cliq and attached to record. gb 09:13 Trend VS was scanned into [employer] and attached to record. gb Administered Medications: 11/22 16:18 Drug: Acetaminophen 650 mg [acetaminophen 325 mg tablet (2 tabs)] Route: PO; jc4 17:11 Follow up: Temp 100 Oral ja5 19:10 Drug: Albuterol-Ipratropium 3 ml [ipratropium-albuterol 0.5 mg-3 mg(2.5 mg base)/3 mL jc3 nebulization soln (3 mL)] Route: Inhalation; 19:43 Drug: cefTRIAXone 1 grams [ceftriaxone 1 gram solution for injection] Route: IVPB; tm5 Infused Over: 30 mins; Site: left antecubital; 20:15 Follow up: IV Status: Completed infusion mlc 20:15 Drug: azithromycin 500 mg [azithromycin 500 mg intravenous solution] Route: IVPB; mlc Infused Over: 1 hrs; Site: left antecubital; 21:15 Follow up: Response: No Adverse Reaction; IV Status: Completed infusion; IV Intake: tm5 250ml 20:20 Drug: Acetaminophen 650 mg [acetaminophen 325 mg tablet (2 tabs)] Route: PO; mlc 21:53 Follow up: Response: No Adverse Reaction; Pain is decreased tm5 21:50 Drug: Ondansetron 4 mg Route: IVP; Site: left antecubital; tm5 22:41 Follow up: Response: Nausea is resolved; No Adverse Reaction tm5 Attachments: 09:13 Trend VS gb Intake: 11/22 21:15 IV: 250.00ml; Total: 250.00ml. tm5 RT: 19:10 Initial Med Neb Given as ordered. O2 via nasal cannula \\T\\ 2L/min. Respiratory: Breath jc3 sounds are diminished bilaterally. Breath sounds with wheezes bilaterally. Order Results: Lab Order: B-Type Natiuretic Peptide; SPEC'M 11/22/16 15:23 Test: BRAIN NATRIURETIC PEPTIDE; Value: 142; Range: <100; Abnormal: Above high normal; Units: PG/ML; Status: F Lab Order: Basic Metabolic Profile; SPEC'M 11/22/16 15:23 Test: GLUCOSE, FASTING; Value: 84; Range: 83-110; Units: MG/DL; Status: F Test: BLOOD UREA NITROGEN; Value: 23; Range: 7-18; Abnormal: Above high normal; Units: MG/DL; Status: F Test: CREATININE FOR GFR; Value: 0.77; Range: 0.55-1.02; Units: MG/DL; Status: F Test: GLOMERULAR FILTRATION RATE; Value: > 60.0; Range: >32; Status: F Test: SODIUM LEVEL; Value: 144; Range: 136-145; Units: MEQ/L; Status: F Test: POTASSIUM SERUM; Value: 3.5; Range: 3.5-5.1; Units: MEQ/L; Status: F Test: CHLORIDE LEVEL; Value: 104; Range: 98-107; Units: MEQ/L; Status: F Test: CARBON DIOXIDE LEVEL; Value: 30; Range: 21-32; Units: MEQ/L; Status: F Test: ANION GAP; Value: 10; Range: 8-16; Units: MEQ/L; Status: F Test: CALCIUM LEVEL; Value: 8.5; Range: 8.8-10.2; Abnormal: Below low normal; Units: MG/DL; Status: F Test Note: ; Units are mL/min/1.73 m2 Chronic Kidney Disease Staging per NKF: Stage I & II GFR >=60 Normal to Mildly Decreased Stage III GFR 30-59 Moderately Decreased Stage IV GFR 15-29 Severely Decreased Stage V GFR <15 Very Little GFR Left ESRD GFR <15 on [place] Lab Order: CBC with Diff; SPEC'M 11/22/16 15:23 Test: WHITE BLOOD COUNT; Value: 8.8; Range: 4.0-10.0; Units: K/mm3; Status: F Test: RED BLOOD COUNT; Value: 3.20; Range: 4.00-5.40; Abnormal: Below low normal; Units: M/mm3; Status: F Test: HEMOGLOBIN; Value: 9.8; Range: 12.0-16.0; Abnormal: Below low normal; Units: g/dl; Status: F Test: HEMATOCRIT; Value: 29.4; Range: 36.0-47.0; Abnormal: Below low normal; Units: %; Status: F Test: MEAN CORPUSCULAR VOLUME; Value: 91.9; Range: 80.0-96.0; Units: fl; Status: F Test: MEAN CORPUSCULAR HEMOGLOBIN; Value: 30.7; Range: 27.0-33.0; Units: pg; Status: F Test: MEAN CORPUSCULAR HGB CONC; Value: 33.4; Range: 32.0-36.5; Units: g/dl; Status: F Test: RED CELL DISTRIBUTION WIDTH; Value: 15.2; Range: 11.5-14.5; Abnormal: Above high normal; Units: %; Status: F Test: PLATELET COUNT, AUTOMATED; Value: 334; Range: 150-450; Units: k/mm3; Status: F Test: NEUTROPHILS %; Value: 72.5; Range: 36.0-66.0; Abnormal: Above high normal; Units: %; Status: F Test: LYMPH %; Value: 15.5; Range: 24.0-44.0; Abnormal: Below low normal; Units: %; Status: F Test: MONO %; Value: 7.7; Range: 0.0-5.0; Abnormal: Above high normal; Units: %; Status: F Test: EOS %; Value: 1.4; Range: 0.0-3.0; Units: %; Status: F Test: BASO %; Value: 0.6; Range: 0.0-1.0; Units: %; Status: F Test: LARGE UNSTAINED CELL %; Value: 2.4; Range: 0.0-4.0; Units: %; Status: F Test: NEUTROPHILS #; Value: 6.4; Range: 1.8-7.7; Units: K/mm3; Status: F Test: LYMPH #; Value: 1.4; Range: 1.5-4.5; Abnormal: Below low normal; Units: K/mm3; Status: F Test: MONO #; Value: 0.7; Range: 0.0-0.8; Units: K/mm3; Status: F Test: EOS #; Value: 0.1; Range: 0.0-0.50; Units: K/mm3; Status: F Test: BASO #; Value: 0.0; Range: 0.0-0.2; Units: K/mm3; Status: F Test: LARGE UNSTAINED CELL #; Value: 0.2; Range: 0.0-0.4; Units: K/mm3; Status: F Lab Order: Cardiac Injury Profile; SPEC'M 11/22/16 15:23 Test: CPK CREATINE PHOSPHOKINASE; Value: 170; Range: 26-192; Units: U/L; Status: F Test: CK-MB VALUE MASS; Value: 3.9; Range: 0.0-3.6; Abnormal: Above high normal; Units: NG/ML; Status: F Test: MB/CK RELATIVE INDEX; Value: 2.29; Range: < OR =4; Status: F Test Note: ; DIAGNOSIS CRITERIA MMB ng/ml Relative Index (RI) NON-AMI < or = 5 N/A GRIJALVA ZONE > 5 < or = 4 AMI > 5 > 4 Lab Order: Troponin; SPEC'M 11/22/16 15:23 Test: TROPONIN I; Value: < 0.02; Range: < 0.10; Units: NG/ML; Status: F Test Note: ; Troponin I Reference Interval for Neuro[employer]ventional [employer] LOCI: 99th Percentile= 0.00-0.045 ng/ml Risk Stratification: <= 0.10 ng/ml Decreased Risk for Adverse Clinical Events. 0.10-1.50 ng/ml Increased Risk for Adverse Clinical Events. Evaluation of additional criterion and/or repeat testing in 2-6 hours is suggested to rule out myocardial damage. >= 1.50 ng/ml Indicative of Myocardial Injury. Lab Order: -Influenza A&B Rapid Antigen - Nose; SPEC'M 11/22/16 16:20 Test: INFLUENZA A RAPID SCR by ICA; Value: INFLUENZA A RESULTS NEGATIVE; Status: F Test: INFLUENZA A RAPID SCR by ICA; Value: Comments:; Status: F Test: INFLUENZA B RAPID SCR by ICA; Value: INFLUENZA B RESULTS NEGATIVE; Status: F Test Note: ; The Influenza test is a direct rapid immunoassay for the qualitative detection of Influenza viral antigen. Cell culture (Viral Culture) testing should be considered to confirm NEGATIVE results and to assist in detecting other viruses that can provide similar clinical symptoms. Please contact the lab within 24 hours ([phone]) if confirmatory testing is desired. Lab Order: MAGNESIUM LEVEL; SPEC'M 11/22/16 15:23 Test: MAGNESIUM LEVEL; Value: 1.8; Range: 1.8-2.4; Units: MG/DL; Status: F Radiology Order: CT Chest Without Contrast Test: CT Chest Without Contrast REASON FOR EXAMINATION: fever, cough; CT CHEST WITHOUT CONTRAST:; ; HISTORY: Cough.; ; COMPARISON: 08/06/2016; ; Patchy densities are present in the right upper, mid and bilateral lower lobes; consistent with atelectasis or infiltrates. A small right pleural effusion is; present. Small lymph nodes less than 1 cm in size are present in the mediastinum.; The heart is normal in size. Atherosclerotic calcification is present in the; thoracic aorta. Degenerative change is present in the thoracic spine.; ; IMPRESSION:; ; 1. Right upper, right mid and bilateral lower lobe infiltrates.; ; 2. Small right pleural effusion.; ; ; Signed by; Jaden Bright MD 11/22/2016 07:26 P; Radiology Order: Duplex, Ext LOWER veins, bilat Test: Duplex, Ext LOWER veins, bilat REASON FOR EXAMINATION: pain, r/o DVT; ; Clinical history: Pain, swelling.; Findings: The common femoral, superficial femoral, popliteal, and other deep venous structures compre; ss normally and demonstrate normal color Doppler flow. Normal venous waveforms with augmentation are; seen.; Impression:; No evidence of deep vein thrombosis in either femoral popliteal venous system.; ; Outcome: 19:29 Decision to Hospitalize by Provider. pc 21:54 Ultrasound Study completed. tm5 22:41 Discharge Assessment: Patient awake, alert and oriented x 3. No cognitive and/or tm5 functional deficits noted. Patient verbalized understanding of disposition instructions. patient administered narcotics - no. The following High Risk Discharge criteria are identified: None. Admitted to PCU accompanied by nurse, accompanied by tech, via stretcher, with oxygen, on monitor, with chart. Condition: good Condition: stable Condition: improved. Property :Personal belongings accompany Pt. 22:42 Patient left the ED. tm5 Signatures: Dispatcher [employer] EDMS Real Hu MD MD pc Shasta Campos, Long Term Care Social Worker Unit lbd Milagros Yun, Ivett, Reg Reg gb Katya Vicente, Long Term Care Social Worker Unit ml3 Ck Montalvo3 Humaira Knox, RN RN jc4 Herber, Rosa, RESEARCH PHARMACIST RESEARCH PHARMACIST adelia Patel, Kelly, RESEARCH PHARMACIST RESEARCH PHARMACIST ct3 Yash, Kendraia dem1 Jazzmine Michaels,RN RN Marj Leone,RN JOHN af2 Kayli Hillman,RN RN js15 Betty Samaniego Tonya,RN RN tm5 Yesica Pemberton,RN RN ja5 Corrections: (The following items were deleted from the chart) 18:41 18:13 General: patient resting in marcelo, denies pain at this time. food tray just ja5 arrived.. ja5 21:22 21:13 General: Entered pt room to respond to call auguste; pt stated "My stomach doesn't js15 feel right since I ate dinner; I feel like I want to throw up". Informed hospitalist and orders given for Zofran 4 mg IV x1 dose. Pt pressed call auguste again and stated that she had to use the restroom. Informed pt that because she was on a compliance monitor and was receiving an IV infusion of antibiotics that the safest method for her to have a bowel movement was to use a bedside commode and stay connected to compliance monitor. Pt adamantly refused multiple times stating "I have to have a bowel movement and I'm not doing it in here." Primary nurse Piter Oglesby made aware. Pt ambulated independently and without difficulty to restroom on continuous O2 NC with this life insurance underwriter and Glynn CADE. . js15 21:38 18:41 BP 116 / 57; Pulse 100bpm; Resp 24bpm; Pulse Ox 94% RA; Temp 100.1F; Pain 0/10; tm5 ja5 Chart Complete MTDD
--- NOTE | 2016-11-24 23:42 | EDDOCDS ---
Physician Documentation [facility] Name: Harmony Bowers Age: 81 yrs Sex: Female : 1935 Arrival Date: 11/22/2016 Time: 14:48 Bed 15 Private MD: Anson Lomeli M.D. Disposition: 11/22 19:27 Critical Care: Critical care not applicable. pc Disposition: 11/22/16 19:29 Hospitalization ordered by Matti Freeman for Inpatient Admission. Preliminary diagnosis are Bronchopneumonia, unspecified organism - RUL, RML, RLL, LLL, Chronic obstructive pulmonary disease with acute lower respiratory infection. - Bed requested for PCU. - Status is Inpatient Admission. tm5 - Condition is Stable. - Problem is new. - Symptoms have improved. HPI: 15:52 This 81 yrs old Female presents to ER via Ambulance with complaints of pc Breathing Difficulty. 15:52 The history is obtained from the patient, the patient's family/friend. The patient pc presents with shortness of breath, with a prior history of COPD. The symptoms began suddenly today. The symptoms are continuous. There were no precipitating events that led to the current complaints. The patient has shortness of breath at rest. At their worst, the symptoms were moderate. In the emergency department, the symptoms are mild. The patient's shortness of breath is aggravated by exertion, coughing, is alleviated by nothing. The patient's dyspnea was accompanied with fever. The patient has experienced similar episodes in the past, several times. The patient has been recently seen at the [facility], this week, for similar complaints. Historical: - Allergies: Lidocaine; procaine (bulk); - Home Meds: 1. albuterol sulfate 90 mcg/actuation Inhl HFAA 2 puffs every 4 hours prn (Last dose: 11/22/2016 14:00) 2. albuterol sulfate 2.5 mg /3 mL (0.083 %) Inhl nebu every 6 hours (Last dose: 11/22/2016 13:30) 3. alprazolam 0.25 mg Oral TbDL 1 tab as needed (Last dose: 11/22/2016 06:30) 4. aspirin 81 mg Oral chew 1 tab once daily (Last dose: 11/22/2016 06:30) 5. Atrovent 18 mcg/actuation Inhl aero 2 puff every 4 hours as needed (Last dose: 11/22/2016 14:00) 6. Calcium + Vitamin D 600 mg calcium- 200 unit Oral tab (Last dose: 11/21/2016) 7. DuoNeb 0.5 mg-3 mg(2.5 mg base)/3 mL Inhl nebu 3 mL 4 times per day (Last dose: 11/22/2016 06:00) 8. prednisone 10 mg Oral tab 1 tab once daily (Last dose: 11/22/2016 06:30) 9. omeprazole 20 mg Oral cpDR 1 cap daily PRN (Last dose: Unknown) 10. Zyrtec 10 mg Oral tab 1 tab once daily (Last dose: 11/21/2016) 11. tizanidine oral 0.5 cap as needed (Last dose: Unknown) 12. Norvasc 10 mg Oral tab 1 tab once daily (Last dose: 11/21/2016) 13. oxygen 3.5-4lnc 14. doxycycline hyclate 100 mg Oral cap 1 cap 2 times per day - PMHx: CAD; COPD; Diverticulosis; Hypercholesterolemia; Hypertension; TIA; - PSHx: Cardiac stents; - The history from nurses notes was reviewed: and I agree with what is documented. - Social history: Smoking status: Patient states former smoker of tobacco. No barriers to communication noted, The patient speaks fluent Sami. - : The pt / caregiver states he / she is not on anticoagulants. Home medication list is obtained from the patient. - Hospitalizations: : The patient was recently seen at [facility], and discharged 1 month(s) ago. - Exposure Risk Screening:: None identified. - Immunization history:: All immunizations up-to-date. - Family history: Not pertinent. - Social history:: the patient is a former smoker, the patient does not drink alcohol. ROS: 15:52 All systems are negative except as listed. The gastrointestinal and genitourinary pc components are also addressed in the HPI. Exam: 15:52 General Appearance: alert, the patient is in mild distress. pc 15:52 EENT: normal eye inspection, ears, nose and throat normal, pharynx normal, mucous membranes moist 15:52 Neck: normal inspection. 15:52 Respiratory: no respiratory distress, no pleuritic chest pain, speaks in full sentences, auscultation reveals wheezes. 15:52 Cardiovascular: normal heart rate, normal rhythm, no jugular venous distension appreciated, no murmurs, no gallop, no friction rub, peripheral pulses full and equal bilaterally. 15:52 Abdomen: non-tender, non-distended, no organomegaly. 15:52 Skin: normal color, warm, dry, no rashes, no lesions. 15:52 Extremities: non-tender, normal range of motion of all joints, no pedal edema. 15:52 Neuro: alert, oriented to person, place and time, cranial nerves normal as tested, no motor deficits, no sensory deficits. 15:52 Psych: normal mood. Vital Signs: 14:59 BP 137 / 63; Pulse 99; Resp 20; Temp 101.6(TE); Pulse Ox 94% on 4 lpm NC; Weight 49.9 dem1 kg / 110.01 lbs; Height 5 ft. 0 in. (152.40 cm); Pain 0/10; 15:26 Pulse 100 MON; Pulse Ox 94% ; ja5 15:27 BP 123 / 57 (auto/); ja5 15:56 Pulse 100 MON; Pulse Ox 95% ; ja5 15:57 BP 136 / 60 (auto/); ja5 16:26 Pulse 98 MON; Pulse Ox 96% ; ja5 16:27 BP 152 / 67 (auto/); ja5 16:56 Pulse 102 MON; Pulse Ox 95% ; ja5 16:57 BP 133 / 84 (auto/); ja5 17:11 Temp 100(O); ja5 17:26 Pulse 98 MON; Pulse Ox 95% ; ja5 17:27 BP 138 / 63 (auto/); ja5 17:57 BP 130 / 60 (auto/); ja5 17:57 Pulse 92 MON; Pulse Ox 97% ; ja5 18:26 Pulse 106 MON; ja5 18:27 BP 164 / 72 (auto/); ja5 18:41 BP 116 / 57; Pulse 100; Resp 24; Temp 100.1; Pulse Ox 94% on 4 lpm NC; Pain 0/10; tm5 21:54 BP 110 / 59; Pulse 74; Resp 20; Temp 97.6(O); Pulse Ox 96% on 4 lpm NC; Pain 0/10; tm5 14:59 Body Mass Index 21.48 (49.90 kg, 152.40 cm) dem1 MDM: 15:28 -Blood Culture (Adults Only), peripheral from different site, or from device/port/PICC pc etc. if present ordered. 15:28 Mail Agent/Pulse Ox/q 15 min VS ordered. pc 15:28 IV Saline Lock ordered. pc 15:28 Rhythm Strip to chart ordered. pc 15:28 Acetaminophen Tablet 650 mg PO once ordered. pc 15:28 Obtain sample by nasopharyngeal swab ordered. pc 15:29 B-Type Natiuretic Peptide Ordered. EDMS 15:29 Basic Metabolic Profile Ordered. EDMS 15:29 CBC with Diff Ordered. EDMS 15:29 Cardiac Injury Profile Ordered. EDMS 15:29 Troponin Ordered. EDMS 15:29 -Blood Culture Ordered. EDMS 15:29 -Influenza A&B Rapid Antigen - Nose Ordered. EDMS 15:29 Chest, 2 View (pa\E\lat) Ordered. EDMS 15:30 ECG WITH READING ER PHYS+CARDIAG ordered. EDMS 15:52 Differential diagnosis: Chronic Obstructive Pulmonary Disease pneumonia. Plan: labs, pc CXR, EKG, nebs. 15:54 -Blood Culture (Adults Only), peripheral from different site, or from device/port/PICC lbd etc. if present complete. 15:56 BLOOD CULTURES Ordered. EDMS 16:04 Test interpretation: EKG. pc 16:50 B-Type Natiuretic Peptide Reviewed. pc 16:50 Basic Metabolic Profile Reviewed. pc 16:50 CBC with Diff Reviewed. pc 16:50 Cardiac Injury Profile Reviewed. pc 16:50 Troponin Reviewed. pc 16:53 CT Chest Without Contrast Ordered. EDMS 17:15 -Influenza A&B Rapid Antigen - Nose Reviewed. pc 17:24 REGULAR+DIET ordered. EDMS 17:37 Financial registration complete. gjb 18:52 Albuterol-Ipratropium 3 ml Inhalation once ordered. jc4 19:08 BED REQUEST+ADM ordered. EDMS 19:27 Antibiotic administration: The patient will be admitted to a regular floor, and has pc been given the following antibiotics: Rocephin and Zithromax given. Data reviewed: old medical records, vital signs, nurses notes, lab test results, all radiology studies and available results. Data reviewed: EKG(s). Test interpretation: LAB - all labs as ordered have been reviewed, interpreted and considered in the overall management of the clinical presentation; X-RAY - interpreted by Radiologist and personally reviewed, 1 view chest no acute disease, interpreted by Radiologist and personally reviewed, discussed with Radiologist, Chest CT; RUL, RLL, RML, LLL infiltrates. The patient has been re-examined and re-evaluated. The patient's symptoms have mildly improved after treatment. Physician consultation: Dr. Matti Freeman MD regarding admission. Disposition: The historical points, examination findings, and any diagnostic results supporting the provided diagnosis, were discussed with the patient or legal guardian. The need for further work-up and/or treatment in the hospital was explained. 19:28 cefTRIAXone 1 grams IVPB once over 30 mins; dilute in 50mL of NS or D5W ordered. pc 19:28 azithromycin 500 mg IVPB once over 1 hrs; dilute in 250mL of D5W or NS ordered. pc 20:11 Written Provider Order was scanned into [employer] and attached to record. ml3 20:20 Acetaminophen Tablet 650 mg PO once ordered. mlc 20:24 [facility] Payment Agreement was scanned into [employer] and attached to record. gjb 20:30 MAGNESIUM LEVEL Ordered. EDMS 20:32 Admission / Observation Status ordered. EDMS 20:38 2 GRAM SODIUM DIET ordered. EDMS 20:38 CBC WITH DIFFERENTIAL Ordered. EDMS 20:38 RENAL PROFILE Ordered. EDMS 20:38 SPUTUM CULTURE AND GRAM STAIN Ordered. EDMS 20:40 TROPONIN Ordered. EDMS 20:40 TROPONIN Ordered. EDMS 20:44 Duplex, Ext LOWER veins, bilat Ordered. EDMS 21:52 Ondansetron 4 mg IVP once ordered. tm5 11/23 09:12 ECG/EKG was scanned into [employer] and attached to record. gb 09:13 Trend VS was scanned into [employer] and attached to record. gb EC/17 16:04 Rate is 98 beats/min. Rhythm is regular, Normal Sinus Rhythm with PACs. QRS [place] is pc Normal. CT interval is normal. QRS interval is prolonged at 126 msec. QT interval is normal. No Q waves. T waves are Normal. No ST changes noted. Clinical impression: Normal Sinus Rhythm and RBBB. No change from previous ECG on November 20, 2016. Administered Medications: 16:18 Drug: Acetaminophen 650 mg [acetaminophen 325 mg tablet (2 tabs)] Route: PO; jc4 17:11 Follow up: Temp 100 Oral ja5 19:10 Drug: Albuterol-Ipratropium 3 ml [ipratropium-albuterol 0.5 mg-3 mg(2.5 mg base)/3 mL jc3 nebulization soln (3 mL)] Route: Inhalation; 19:43 Drug: cefTRIAXone 1 grams [ceftriaxone 1 gram solution for injection] Route: IVPB; tm5 Infused Over: 30 mins; Site: left antecubital; 20:15 Follow up: IV Status: Completed infusion mlc 20:15 Drug: azithromycin 500 mg [azithromycin 500 mg intravenous solution] Route: IVPB; mlc Infused Over: 1 hrs; Site: left antecubital; 21:15 Follow up: Response: No Adverse Reaction; IV Status: Completed infusion; IV Intake: tm5 250ml 20:20 Drug: Acetaminophen 650 mg [acetaminophen 325 mg tablet (2 tabs)] Route: PO; mlc 21:53 Follow up: Response: No Adverse Reaction; Pain is decreased tm5 21:50 Drug: Ondansetron 4 mg Route: IVP; Site: left antecubital; tm5 22:41 Follow up: Response: Nausea is resolved; No Adverse Reaction tm5 Signatures: Dispatcher [employer] EDMS Real Hu MD MD pc Daly, Linda, [employer] lbd Ivett Gibbs, Katya De La Cruz, [employer] ml3 Humaira Knox RN RN jc4 Jazzmine Michaels RN RN [facility] [place] Betty Samaniego [facility] Sheela Parker RN RN tm5 Ck Montalvo jc3 Yesica Pemberton RN ja5 The chart was reviewed and I authenticate all verbal orders and agree with the evaluation and treatment provided.Corrections: (The following items were deleted from the chart) 20:30 20:10 MAGNESIUM LEVEL ordered. EDWY EDMS Attachments: 20:11 Written Provider Order ml3 20:24 [facility] Payment Agreement [facility] 11/23 09:12 ECG/EKG gb Chart Complete MTDD
--- NOTE | 2016-11-24 23:42 | EDDOCDS ---
Physician Documentation [facility] Name: Harmony Bowers Age: 81 yrs Sex: Female : 1935 Arrival Date: 11/22/2016 Time: 14:48 Bed 15 Private MD: Anson Lomeli M.D. Disposition: 11/22 19:27 Critical Care: Critical care not applicable. pc Disposition: 11/22/16 19:29 Hospitalization ordered by Matti Freeman for Inpatient Admission. Preliminary diagnosis are Bronchopneumonia, unspecified organism - RUL, RML, RLL, LLL, Chronic obstructive pulmonary disease with acute lower respiratory infection. - Bed requested for PCU. - Status is Inpatient Admission. tm5 - Condition is Stable. - Problem is new. - Symptoms have improved. HPI: 15:52 This 81 yrs old Female presents to ER via Ambulance with complaints of pc Breathing Difficulty. 15:52 The history is obtained from the patient, the patient's family/friend. The patient pc presents with shortness of breath, with a prior history of COPD. The symptoms began suddenly today. The symptoms are continuous. There were no precipitating events that led to the current complaints. The patient has shortness of breath at rest. At their worst, the symptoms were moderate. In the emergency department, the symptoms are mild. The patient's shortness of breath is aggravated by exertion, coughing, is alleviated by nothing. The patient's dyspnea was accompanied with fever. The patient has experienced similar episodes in the past, several times. The patient has been recently seen at the [facility], this week, for similar complaints. Historical: - Allergies: Lidocaine; procaine (bulk); - Home Meds: 1. albuterol sulfate 90 mcg/actuation Inhl HFAA 2 puffs every 4 hours prn (Last dose: 11/22/2016 14:00) 2. albuterol sulfate 2.5 mg /3 mL (0.083 %) Inhl nebu every 6 hours (Last dose: 11/22/2016 13:30) 3. alprazolam 0.25 mg Oral TbDL 1 tab as needed (Last dose: 11/22/2016 06:30) 4. aspirin 81 mg Oral chew 1 tab once daily (Last dose: 11/22/2016 06:30) 5. Atrovent 18 mcg/actuation Inhl aero 2 puff every 4 hours as needed (Last dose: 11/22/2016 14:00) 6. Calcium + Vitamin D 600 mg calcium- 200 unit Oral tab (Last dose: 11/21/2016) 7. DuoNeb 0.5 mg-3 mg(2.5 mg base)/3 mL Inhl nebu 3 mL 4 times per day (Last dose: 11/22/2016 06:00) 8. prednisone 10 mg Oral tab 1 tab once daily (Last dose: 11/22/2016 06:30) 9. omeprazole 20 mg Oral cpDR 1 cap daily PRN (Last dose: Unknown) 10. Zyrtec 10 mg Oral tab 1 tab once daily (Last dose: 11/21/2016) 11. tizanidine oral 0.5 cap as needed (Last dose: Unknown) 12. Norvasc 10 mg Oral tab 1 tab once daily (Last dose: 11/21/2016) 13. oxygen 3.5-4lnc 14. doxycycline hyclate 100 mg Oral cap 1 cap 2 times per day - PMHx: CAD; COPD; Diverticulosis; Hypercholesterolemia; Hypertension; TIA; - PSHx: Cardiac stents; - The history from nurses notes was reviewed: and I agree with what is documented. - Social history: Smoking status: Patient states former smoker of tobacco. No barriers to communication noted, The patient speaks fluent Belarusian. - : The pt / caregiver states he / she is not on anticoagulants. Home medication list is obtained from the patient. - Hospitalizations: : The patient was recently seen at [facility], and discharged 1 month(s) ago. - Exposure Risk Screening:: None identified. - Immunization history:: All immunizations up-to-date. - Family history: Not pertinent. - Social history:: the patient is a former smoker, the patient does not drink alcohol. ROS: 15:52 All systems are negative except as listed. The gastrointestinal and genitourinary pc components are also addressed in the HPI. Exam: 15:52 General Appearance: alert, the patient is in mild distress. pc 15:52 EENT: normal eye inspection, ears, nose and throat normal, pharynx normal, mucous membranes moist 15:52 Neck: normal inspection. 15:52 Respiratory: no respiratory distress, no pleuritic chest pain, speaks in full sentences, auscultation reveals wheezes. 15:52 Cardiovascular: normal heart rate, normal rhythm, no jugular venous distension appreciated, no murmurs, no gallop, no friction rub, peripheral pulses full and equal bilaterally. 15:52 Abdomen: non-tender, non-distended, no organomegaly. 15:52 Skin: normal color, warm, dry, no rashes, no lesions. 15:52 Extremities: non-tender, normal range of motion of all joints, no pedal edema. 15:52 Neuro: alert, oriented to person, place and time, cranial nerves normal as tested, no motor deficits, no sensory deficits. 15:52 Psych: normal mood. Vital Signs: 14:59 BP 137 / 63; Pulse 99; Resp 20; Temp 101.6(TE); Pulse Ox 94% on 4 lpm NC; Weight 49.9 dem1 kg / 110.01 lbs; Height 5 ft. 0 in. (152.40 cm); Pain 0/10; 15:26 Pulse 100 MON; Pulse Ox 94% ; ja5 15:27 BP 123 / 57 (auto/); ja5 15:56 Pulse 100 MON; Pulse Ox 95% ; ja5 15:57 BP 136 / 60 (auto/); ja5 16:26 Pulse 98 MON; Pulse Ox 96% ; ja5 16:27 BP 152 / 67 (auto/); ja5 16:56 Pulse 102 MON; Pulse Ox 95% ; ja5 16:57 BP 133 / 84 (auto/); ja5 17:11 Temp 100(O); ja5 17:26 Pulse 98 MON; Pulse Ox 95% ; ja5 17:27 BP 138 / 63 (auto/); ja5 17:57 BP 130 / 60 (auto/); ja5 17:57 Pulse 92 MON; Pulse Ox 97% ; ja5 18:26 Pulse 106 MON; ja5 18:27 BP 164 / 72 (auto/); ja5 18:41 BP 116 / 57; Pulse 100; Resp 24; Temp 100.1; Pulse Ox 94% on 4 lpm NC; Pain 0/10; tm5 21:54 BP 110 / 59; Pulse 74; Resp 20; Temp 97.6(O); Pulse Ox 96% on 4 lpm NC; Pain 0/10; tm5 14:59 Body Mass Index 21.48 (49.90 kg, 152.40 cm) dem1 MDM: 15:28 -Blood Culture (Adults Only), peripheral from different site, or from device/port/PICC pc etc. if present ordered. 15:28 Health Sciences Department Chair/Pulse Ox/q 15 min VS ordered. pc 15:28 IV Saline Lock ordered. pc 15:28 Rhythm Strip to chart ordered. pc 15:28 Acetaminophen Tablet 650 mg PO once ordered. pc 15:28 Obtain sample by nasopharyngeal swab ordered. pc 15:29 B-Type Natiuretic Peptide Ordered. EDMS 15:29 Basic Metabolic Profile Ordered. EDMS 15:29 CBC with Diff Ordered. EDMS 15:29 Cardiac Injury Profile Ordered. EDMS 15:29 Troponin Ordered. EDMS 15:29 -Blood Culture Ordered. EDMS 15:29 -Influenza A&B Rapid Antigen - Nose Ordered. EDMS 15:29 Chest, 2 View (pa\E\lat) Ordered. EDMS 15:30 ECG WITH READING ER PHYS+CARDIAG ordered. EDMS 15:52 Differential diagnosis: Chronic Obstructive Pulmonary Disease pneumonia. Plan: labs, pc CXR, EKG, nebs. 15:54 -Blood Culture (Adults Only), peripheral from different site, or from device/port/PICC lbd etc. if present complete. 15:56 BLOOD CULTURES Ordered. EDMS 16:04 Test interpretation: EKG. pc 16:50 B-Type Natiuretic Peptide Reviewed. pc 16:50 Basic Metabolic Profile Reviewed. pc 16:50 CBC with Diff Reviewed. pc 16:50 Cardiac Injury Profile Reviewed. pc 16:50 Troponin Reviewed. pc 16:53 CT Chest Without Contrast Ordered. EDMS 17:15 -Influenza A&B Rapid Antigen - Nose Reviewed. pc 17:24 REGULAR+DIET ordered. EDMS 17:37 Financial registration complete. gjb 18:52 Albuterol-Ipratropium 3 ml Inhalation once ordered. jc4 19:08 BED REQUEST+ADM ordered. EDMS 19:27 Antibiotic administration: The patient will be admitted to a regular floor, and has pc been given the following antibiotics: Rocephin and Zithromax given. Data reviewed: old medical records, vital signs, nurses notes, lab test results, all radiology studies and available results. Data reviewed: EKG(s). Test interpretation: LAB - all labs as ordered have been reviewed, interpreted and considered in the overall management of the clinical presentation; X-RAY - interpreted by Radiologist and personally reviewed, 1 view chest no acute disease, interpreted by Radiologist and personally reviewed, discussed with Radiologist, Chest CT; RUL, RLL, RML, LLL infiltrates. The patient has been re-examined and re-evaluated. The patient's symptoms have mildly improved after treatment. Physician consultation: Dr. Matti Freeman MD regarding admission. Disposition: The historical points, examination findings, and any diagnostic results supporting the provided diagnosis, were discussed with the patient or legal guardian. The need for further work-up and/or treatment in the hospital was explained. 19:28 cefTRIAXone 1 grams IVPB once over 30 mins; dilute in 50mL of NS or D5W ordered. pc 19:28 azithromycin 500 mg IVPB once over 1 hrs; dilute in 250mL of D5W or NS ordered. pc 20:11 Written Provider Order was scanned into [employer] and attached to record. ml3 20:20 Acetaminophen Tablet 650 mg PO once ordered. mlc 20:24 [facility] Payment Agreement was scanned into [employer] and attached to record. gjb 20:30 MAGNESIUM LEVEL Ordered. EDMS 20:32 Admission / Observation Status ordered. EDMS 20:38 2 GRAM SODIUM DIET ordered. EDMS 20:38 CBC WITH DIFFERENTIAL Ordered. EDMS 20:38 RENAL PROFILE Ordered. EDMS 20:38 SPUTUM CULTURE AND GRAM STAIN Ordered. EDMS 20:40 TROPONIN Ordered. EDMS 20:40 TROPONIN Ordered. EDMS 20:44 Duplex, Ext LOWER veins, bilat Ordered. EDMS 21:52 Ondansetron 4 mg IVP once ordered. tm5 11/23 09:12 ECG/EKG was scanned into [employer] and attached to record. gb 09:13 Trend VS was scanned into [employer] and attached to record. gb EC/17 16:04 Rate is 98 beats/min. Rhythm is regular, Normal Sinus Rhythm with PACs. QRS [place] is pc Normal. [place] interval is normal. QRS interval is prolonged at 126 msec. QT interval is normal. No Q waves. T waves are Normal. No ST changes noted. Clinical impression: Normal Sinus Rhythm and RBBB. No change from previous ECG on November 20, 2016. Administered Medications: 16:18 Drug: Acetaminophen 650 mg [acetaminophen 325 mg tablet (2 tabs)] Route: PO; jc4 17:11 Follow up: Temp 100 Oral ja5 19:10 Drug: Albuterol-Ipratropium 3 ml [ipratropium-albuterol 0.5 mg-3 mg(2.5 mg base)/3 mL jc3 nebulization soln (3 mL)] Route: Inhalation; 19:43 Drug: cefTRIAXone 1 grams [ceftriaxone 1 gram solution for injection] Route: IVPB; tm5 Infused Over: 30 mins; Site: left antecubital; 20:15 Follow up: IV Status: Completed infusion mlc 20:15 Drug: azithromycin 500 mg [azithromycin 500 mg intravenous solution] Route: IVPB; mlc Infused Over: 1 hrs; Site: left antecubital; 21:15 Follow up: Response: No Adverse Reaction; IV Status: Completed infusion; IV Intake: tm5 250ml 20:20 Drug: Acetaminophen 650 mg [acetaminophen 325 mg tablet (2 tabs)] Route: PO; mlc 21:53 Follow up: Response: No Adverse Reaction; Pain is decreased tm5 21:50 Drug: Ondansetron 4 mg Route: IVP; Site: left antecubital; tm5 22:41 Follow up: Response: Nausea is resolved; No Adverse Reaction tm5 Signatures: Dispatcher [employer] EDMS Real Hu MD MD pc Daly, Linda, [employer] lbd Ivett Gibbs, Katya De La Cruz, [employer] ml3 Humaira Knox RN RN jc4 Jazzmine Michaels RN RN [facility] Betty Samaniego [facility] Sheela Parker RN RN tm5 Ck Montalvo jc3 Yesica Pemberton RN ja5 The chart was reviewed and I authenticate all verbal orders and agree with the evaluation and treatment provided.Corrections: (The following items were deleted from the chart) 20:30 20:10 MAGNESIUM LEVEL ordered. EDUT EDMS Attachments: 20:11 Written Provider Order ml3 20:24 PENDING SALE TO [facility] Payment Agreement [facility] 11/23 09:12 ECG/EKG gb Chart Complete MTDD
[2016-11-25] MEDS: IPRATROPIUM 0.5MG/ALBUTEROL 2.5MG INH SOL UD 3ML (DUONEB)(J7620) NEB SCH ×3 (00:15→13:26)
[2016-11-25] MEDS ORDERED: diphenhydrAMINE CREAM 30GM TOP PRN (01:00)
[2016-11-25] MEDS: HEPARIN SOD (PORCINE) 5000 UNITS/ML VIAL SQ SCH ×3 (05:05→21:00)
[2016-11-25 06:00] VITALS: BP 138/66
[2016-11-25] MEDS: LevoFLOXacin 500 MG TABLET PO SCH (06:07)
[2016-11-25 07:17] LABS: EOS # 0.1 K/mm3 (0.0-0.50); EOS % 0.6 % (0.0-3.0); LARGE UNSTAINED CELL # 0.2 K/mm3 (0.0-0.4); LARGE UNSTAINED CELL % 1.6 % (0.0-4.0); LYMPH # 1.4 K/mm3 (1.5-4.5); LYMPH % 13.1 % (24.0-44.0); MEAN CORPUSCULAR HEMOGLOBIN 30.5 pg (27.0-33.0); MEAN CORPUSCULAR HGB CONC 32.5 g/dl (32.0-36.5); MEAN CORPUSCULAR VOLUME 93.8 fl (80.0-96.0); MONO # 0.8 K/mm3 (0.0-0.8); MONO % 7.3 % (0.0-5.0); NEUTROPHILS # 8.1 K/mm3 (1.8-7.7); NEUTROPHILS % 77.4 % (36.0-66.0); PLATELET COUNT, AUTOMATED 359 k/mm3 (150-450); WHITE BLOOD COUNT 10.4 K/mm3 (4.0-10.0)
[2016-11-25 07:31] LABS: ALBUMIN 2.8 GM/DL (3.2-5.2); ANION GAP 9 MEQ/L (8-16); BLOOD UREA NITROGEN 22 MG/DL (7-18); CALCIUM LEVEL 8.4 MG/DL (8.8-10.2); CARBON DIOXIDE LEVEL 27 MEQ/L (21-32); CHLORIDE LEVEL 107 MEQ/L (98-107); CREATININE FOR GFR 0.73 MG/DL (0.55-1.02); GLOMERULAR FILTRATION RATE > 60.0 (>32); GLUCOSE, FASTING 90 MG/DL (83-110); PHOSPHORUS LEVEL 2.3 MG/DL (2.5-4.9); POTASSIUM SERUM 3.7 MEQ/L (3.5-5.1); SODIUM LEVEL 143 MEQ/L (136-145)
[2016-11-25] MEDS: TIOTROPIUM INHALER/CAPSULE (SPIRIVA) INH SCH (08:10)
[2016-11-25] MEDS ORDERED: DOXY-278 PO (08:14)
[2016-11-25] MEDS: ASPIRIN 81 MG ENTERIC TAB PO SCH (08:53)
[2016-11-25] MEDS: METOPROLOL TART 12.5 MG PER 1/2 TAB PO SCH (08:55)
[2016-11-25] MEDS: LISINOPRIL 10 MG TAB PO SCH (08:56)
[2016-11-25] MEDS: methylPREDNISolone INJ 40 MG/1 ML VIAL (J2920) IV SCH ×2 (08:57→21:21)
--- NOTE | 2016-11-25 10:44 | REP ---
Chest x-ray: Two views. History: Cough. Comparison chest x-ray 22 November 2016. Findings: Prior median sternotomy sutures are seen. There is blunting of the right lateral and both posterior pleural angles indicating small bilateral pleural effusions. There is an interstitial infiltrate in the right lower lobe. This is new from November 20, 2016 study and is compatible with pneumonia. There is plate-like atelectasis in the left lower lobe which is also new. No other infiltrate is seen. Heart is not enlarged. There is some vascular calcification or coronary stent material. No significant bony abnormality is seen. Impression: Right basilar pneumonia. Small right and left pleural effusions. Signed by Chau Paulson MD 11/25/2016 02:39 P
--- NOTE | 2016-11-25 13:06 | IPN ---
DATE: 11/25/2016 She is complaining about being more short of breath today and having an intermittent nonproductive cough. She did have a rash related to the Levaquin last night, which was discontinued. She was given Benadryl. OBJECTIVE: Respiratory rate 20, blood pressure (BP) 138/66, SPO2 is 97% on 2 liters. General: The patient appears to be in no acute distress. Is alert and oriented. HEENT: Unremarkable. Lungs: Diminished bibasilar breath sounds with expiratory wheeze. Heart: Regular rate and rhythm. Abdomen: Soft. Extremities: No edema. No calf tenderness. LABORATORY DATA: White count 10.4, hemoglobin 9.2, platelets are 359,000. Sodium 143, potassium 3.7, chloride 107, bicarb 27, anion gap 9, BUN is 22, creatinine 0.73, glucose is 90, phosphorus 2.3, albumin 2.8. Repeat chest x-ray done today, right basilar pneumonia is again noted, no other acute findings. ASSESSMENT/PLAN: 1. Healthcare associated pneumonia, possible gram (-) pneumonia. Has shown some gradual improvement. We did have to discontinue the Levaquin due to a rash. Will start her on doxycycline. Continue with DuoNeb. Start her on low dose Solu-Medrol and Acapella. 2. Chronic obstructive pulmonary disease (COPD) exacerbation. As outlined, DuoNeb, Acapella, Solu-Medrol and oxygen. She does appear to be close her baseline with oxygen requirements. 3. History of coronary artery disease, appears to be stable. No chest pain. 4. Hypertension, stable. 5. Transient ischemic attack (TIA) with no residual symptoms. 6. History of muscle cramps, on Zanaflex. No issues. 7. Deep vein thrombosis (DVT) prophylaxis, on subcutaneous heparin. DISPOSITION: Will see how she does over the next 24 hours. Anticipate home discharge tomorrow. DIANELYS
[2016-11-25 14:00] VITALS: BP 140/63
[2016-11-25] MEDS ORDERED: ALBUTEROL INH PRN (17:15)
[2016-11-25] MEDS: ALBUTEROL SULFATE 2.5 MG/0.5 ML INH NEB SOLN INH SCH ×2 (19:20→22:00)
[2016-11-25] MEDS: ADVAIR DISKUS 250/50 INH PWD INH SCH (19:21)
[2016-11-25] MEDS ORDERED: ATROVENT INH PRN (21:00)
[2016-11-25 22:00] VITALS: BP 157/70
[2016-11-26] MEDS ORDERED: IPRATROPIUM 0.5MG/ALBUTEROL 2.5MG INH SOL UD 3ML (DUONEB)(J7620) NEB PRN (01:30)
[2016-11-26] MEDS: HEPARIN SOD (PORCINE) 5000 UNITS/ML VIAL SQ SCH ×3 (05:23→20:02)
[2016-11-26 06:00] VITALS: BP 153/70
[2016-11-26 06:02] LABS: EOS # 0.1 K/mm3 (0.0-0.50); EOS % 0.9 % (0.0-3.0); LARGE UNSTAINED CELL % 0.5 % (0.0-4.0); LYMPH # 0.6 K/mm3 (1.5-4.5); LYMPH % 6.9 % (24.0-44.0); MEAN CORPUSCULAR HEMOGLOBIN 30.3 pg (27.0-33.0); MEAN CORPUSCULAR HGB CONC 32.4 g/dl (32.0-36.5); MEAN CORPUSCULAR VOLUME 93.6 fl (80.0-96.0); MONO # 0.3 K/mm3 (0.0-0.8); MONO % 3.2 % (0.0-5.0); NEUTROPHILS # 7.4 K/mm3 (1.8-7.7); NEUTROPHILS % 88.4 % (36.0-66.0); PLATELET COUNT, AUTOMATED 364 k/mm3 (150-450); RED CELL DISTRIBUTION WIDTH 14.8 % (11.5-14.5); WHITE BLOOD COUNT 8.4 K/mm3 (4.0-10.0)
[2016-11-26 06:13] LABS: ALBUMIN 2.8 GM/DL (3.2-5.2); ANION GAP 8 MEQ/L (8-16); BLOOD UREA NITROGEN 23 MG/DL (7-18); CALCIUM LEVEL 8.5 MG/DL (8.8-10.2); CARBON DIOXIDE LEVEL 27 MEQ/L (21-32); CHLORIDE LEVEL 106 MEQ/L (98-107); CREATININE FOR GFR 0.75 MG/DL (0.55-1.02); GLOMERULAR FILTRATION RATE > 60.0 (>32); GLUCOSE, FASTING 158 MG/DL (83-110); PHOSPHORUS LEVEL 3.4 MG/DL (2.5-4.9); POTASSIUM SERUM 4.2 MEQ/L (3.5-5.1); SODIUM LEVEL 141 MEQ/L (136-145)
[2016-11-26] MEDS: ADVAIR DISKUS 250/50 INH PWD INH SCH ×2 (07:13→19:34)
[2016-11-26] MEDS: ALBUTEROL SULFATE 2.5 MG/0.5 ML INH NEB SOLN INH SCH ×4 (07:14→19:34)
[2016-11-26] MEDS: methylPREDNISolone INJ 40 MG/1 ML VIAL (J2920) IV SCH (09:01)
[2016-11-26] MEDS: LISINOPRIL 10 MG TAB PO SCH (09:02)
[2016-11-26] MEDS: ASPIRIN 81 MG ENTERIC TAB PO SCH (09:02)
[2016-11-26] MEDS: METOPROLOL TART 12.5 MG PER 1/2 TAB PO SCH (09:02)
[2016-11-26] MEDS ORDERED: AUGM875T27 PO (09:39)
[2016-11-26] MEDS ORDERED: PRED10PA2 PO (09:42)
--- NOTE | 2016-11-26 10:24 | DSES ---
DATE OF ADMISSION: 11/22/2016 DATE OF DISCHARGE: 11/27/2016 PRIMARY CARE PROVIDER: Anson Lomeli MD ENTRY LEVEL FINANCE: Matti Justice DO Cord Cutter: Dr. Balderas PROCEDURES: None COMPLICATIONS: None ADMISSION/DISCHARGE DIAGNOSES: 1. Pneumonia/possible healthcare associated pneumonia. 2. Chronic obstructive pulmonary disease (COPD) exacerbation. 3. Coronary artery disease, stable. 4. Hypertension. 5. Prior history of transient ischemic attack (TIA) with no residual symptoms. 6. History of muscle cramps. BRIEF HOSPITAL COURSE: Miss Inés Bowers is an 81-year-old female who has had some repeated bouts of COPD exacerbations and pneumonia for the last month or so. She was admitted on 11/22/2016 with increased shortness of breath, productive sputum and dyspnea on exertion. She had been discharge previously while on doxycycline and had noticed that she had a episode of difficulty breathing while watching TV , occasional cough. She was able to produce some sputum while here in the hospital, which did show a moderate amount of growth of Pseudomonas. Repeat sputum culture was negative. We had tried switching her to IV Levaquin. She did develop a rash subsequent to trying this antibiotic. She remains afebrile with normal white count today. I did discuss the case with Dr. Balderas who felt that this patient has most likely colonized Pseudomonas and we did strategize how to get her home. Likely Dr. Balderas will see her prior to discharge. Will go ahead and try her on some Augmentin as well as a prednisone taper. Continue with Acapella at home as well as nebulizers and should have a relatively quick followup with [facility], hopefully within this coming week, and to see her primary care provider within the next 7-10 days as well. She voices understanding. She is back to her baseline oxygen requirement at this point. Blood cultures remain negative. Influenza A and B were negative. She did have a repeat chest x-ray done a few days ago that did show right basilar infiltrate. No consolidation. Her CT of the chest on admission did suggest infiltrates at that time as well, a small pleural effusion but no signs of pulmonary embolism. Ultrasound lower extremities was negative for deep vein thrombosis (DVT). DISCHARGE CONDITION: Good. DISPOSITION: Discharge to home. DISCHARGE MEDICATIONS: - Augmentin 875 mg by mouth twice a day for seven more days - discontinue the doxycycline - prednisone taper - albuterol inhaler and nebulizers as well as DuoNebs - Xanax 0.25 mg three times a day as needed - aspirin 81 mg daily - calcium with vitamin D one tablet daily - Mucinex 600 mg twice a day - Atrovent inhaler two puffs every 4 hours - Atrovent nebulizer every 4 hours as needed - lisinopril 10 mg daily - metoprolol 12.5 mg daily - Nitrostat 0.4 mg sublingually every 5 minutes as needed - Spiriva inhaler daily - tizanidine 2 mg half a tablet three times a day as needed muscle spasm DISCHARGE INSTRUCTIONS: Discharge to home. Activity as tolerated. Regular diet. Continue with nebs. Finish her antibiotics and prednisone tapering dose. As discussed above, she will need followup with Dr. Justice within the next week or so. I am concerned that she is most likely colonized with Pseudomonas as indicated above. Any rate , this can be discussed further with her critical care physician. Additional concern is regarding her recurrent hospitalizations and we may need to consider further strategy for high utilization. She may be a candidate for intervention such as a Trilogy device. At any rate, I will leave this discussion to her critical care physician and her primary care provider. She is instructed return to the emergency department if her symptoms should worsen or progress. She voices understanding. Discharge took approximately 35 minutes. DIANELYS
[2016-11-26 14:00] VITALS: BP 163/64
--- NOTE | 2016-11-26 14:26 | IPN ---
DATE: 11/26/2016 81-year-old female seen at bedside. No overnight issues reported. She does have still some continued intermittent productive cough, still shortness of breath but she is maintaining 2 liters of supplemental oxygen which is what she is on at home as well. She denies chest pain. No nausea, vomiting, tolerating meals. OBJECTIVE: Temperature is 97.1, pulse 87, respiratory rate is 20, blood pressure 150/70, SpO2 is 95% on 2 liters. GENERAL: The patient appears to be in no acute distress. LUNGS: Intermittent expiratory wheeze, diminished bibasilar breath sounds, prolonged expiratory phase. HEART: Regular rate and rhythm. ABDOMEN: Soft. EXTREMITIES: No edema, no calf tenderness. LABORATORY DATA: White count is 8.4, hemoglobin 9.4, platelets 364,000, sodium 141, potassium 4.2, chloride 106, bicarbonate 27, anion gap 8, BUN is 23, creatinine 0.75, glucose 158, albumin is 2.8. ASSESSMENT/PLAN: 1. Pneumonia with possible underlying healthcare-associated pneumonia. Will continue with antibiotic treatment. Her sputum culture did have low to moderate growth of Pseudomonas. I did discuss this with pulmonology. She did have a reaction to Levaquin the other night. This may be colonization. Will attempt switching her to Augmentin to see how this suffices. Her son was present later in the day and did request evaluation by pulmonology before she leaves. I will discuss this with Dr. Balderas to see if she would be able to see the patient either later today or tomorrow. In the meantime, we had planned on discharging her home but will suspend that until pulmonology has had a chance to see her. 2. Chronic obstructive pulmonary disease (COPD) exacerbation as outlined. Continue with nebulizers, inhalers and prednisone. 3. Coronary artery disease, stable. 4. Hypertension, stable. 5. Prior history of transient ischemic attack (TIA) with no residual symptoms. 6. History of muscle spasms and cramps, stable. 7. Deep venous thrombosis (DVT) prophylaxis. Continue heparin. DISPOSITION: I will talk to Dr. Balderas to see if she would be able to see the patient on consult either today or tomorrow. I did request the son to be present at bedside during the discussion and she will likely need to have close followup with Dr. Justice's office once she is discharged.
[2016-11-26] MEDS: AUGMENTIN 875 MG TAB PO SCH ×2 (16:28→21:05)
[2016-11-26] MEDS: predniSONE 20 MG TAB PO SCH (16:28)
[2016-11-26 22:00] VITALS: BP 159/61
[2016-11-27 02:30] VITALS: BP 158/71
[2016-11-27 02:47] VITALS: BP 167/73
[2016-11-27] MEDS: HEPARIN SOD (PORCINE) 5000 UNITS/ML VIAL SQ SCH ×3 (05:01→21:51)
[2016-11-27 06:00] VITALS: BP 152/69
[2016-11-27 06:15] LABS: EOS % 0.5 % (0.0-3.0); LARGE UNSTAINED CELL # 0.2 K/mm3 (0.0-0.4); LARGE UNSTAINED CELL % 1.8 % (0.0-4.0); LYMPH # 1.1 K/mm3 (1.5-4.5); LYMPH % 10.8 % (24.0-44.0); MEAN CORPUSCULAR HEMOGLOBIN 30.4 pg (27.0-33.0); MEAN CORPUSCULAR HGB CONC 32.6 g/dl (32.0-36.5); MONO # 0.6 K/mm3 (0.0-0.8); MONO % 6.1 % (0.0-5.0); NEUTROPHILS # 8.1 K/mm3 (1.8-7.7); NEUTROPHILS % 80.8 % (36.0-66.0); PLATELET COUNT, AUTOMATED 394 k/mm3 (150-450); RED CELL DISTRIBUTION WIDTH 14.9 % (11.5-14.5)
[2016-11-27 06:23] LABS: ALBUMIN 2.7 GM/DL (3.2-5.2); ANION GAP 8 MEQ/L (8-16); BLOOD UREA NITROGEN 28 MG/DL (7-18); CALCIUM LEVEL 8.5 MG/DL (8.8-10.2); CARBON DIOXIDE LEVEL 29 MEQ/L (21-32); CHLORIDE LEVEL 106 MEQ/L (98-107); CREATININE FOR GFR 0.69 MG/DL (0.55-1.02); GLOMERULAR FILTRATION RATE > 60.0 (>32); GLUCOSE, FASTING 128 MG/DL (83-110); PHOSPHORUS LEVEL 3.1 MG/DL (2.5-4.9); POTASSIUM SERUM 3.7 MEQ/L (3.5-5.1); SODIUM LEVEL 143 MEQ/L (136-145)
[2016-11-27] MEDS: ADVAIR DISKUS 250/50 INH PWD INH SCH ×2 (07:43→19:36)
[2016-11-27] MEDS: ALBUTEROL SULFATE 2.5 MG/0.5 ML INH NEB SOLN INH SCH ×4 (07:43→19:36)
[2016-11-27] MEDS: TIOTROPIUM INHALER/CAPSULE (SPIRIVA) INH SCH (08:00)
[2016-11-27] MEDS: AUGMENTIN 875 MG TAB PO SCH ×2 (08:26→21:56)
[2016-11-27] MEDS: predniSONE 20 MG TAB PO SCH (08:27)
[2016-11-27] MEDS: ASPIRIN 81 MG ENTERIC TAB PO SCH (08:27)
[2016-11-27] MEDS: METOPROLOL TART 12.5 MG PER 1/2 TAB PO SCH (08:28)
[2016-11-27] MEDS: LISINOPRIL 10 MG TAB PO SCH (08:28)
[2016-11-27] MEDS ORDERED: SIMETHICONE 80 MG CHEW TAB PO PRN (10:30)
[2016-11-27] MEDS: guaiFENesin ER 600 MG TAB PO PRN (10:33)
[2016-11-27] MEDS ORDERED: ONDANSETRON 4 MG ORAL DISINTEGRATING TAB (S0181) PO PRN (12:15)
--- NOTE | 2016-11-27 13:33 | IPNPDOC ---
Assessment/Plan Date Seen The patient was seen on 11/27/16. Problems Problems: (1) Pneumonia Status: Acute Problem Text: afebrile, WBC WNL; was initially on vanc and cefepime, then had a dermatologic reaction when changed to levaquin so now on augmentin; flu screen and blood cultures negative; sputum culture with PSA; unclear at this time if this is a true infection or rather represents colonization, currently pending opinion from pulmonary (Dr. Balderas) (2) COPD (chronic obstructive pulmonary disease) Status: Chronic Problem Text: uses 3L O2 chronically; initially had some mild exacerbation secondary to PNA but now currently back on home O2; continue advair, spiriva, mucinex and duonebs; continue prednisone taper (3) CAD (coronary artery disease) Status: Chronic Problem Text: continue ASA and beta yaw; no report of statin on home meds, should discuss with primary spice fumigator (4) Hx of transient ischemic attack (TIA) Status: Resolved Problem Text: continue ASA (5) Pulmonary hypertension Status: Chronic (6) Diarrhea Status: Acute Problem Text: began this AM; will check Cdiff given recent antibiotics (7) HTN (hypertension) Status: Chronic Problem Text: continue home ACEI and beta yaw Plan / VTE VTE Prophylaxis Ordered?: Yes (heparin) Disposition pending pulmonary evaluation and work up of diarrhea Subjective Review of Systems CC/HPI The patient is a 81-year-old female admitted with a reason for visit of Pneumonia. Events since last encounter 4 episodes of diarrhea this morning Pulmonary: Reports: Cough, Dyspnea Gastrointestinal: Reports: Diarrhea, Nausea, Denies: Vomiting Objective Physical Examination General Exam: Positive: Alert, Cooperative, No Acute Distress Eye Exam: Positive: EOMI ENT Exam: Positive: Atraumatic Neck Exam: Positive: Supple Chest Exam: Positive: Clear to auscultation, Normal air movement Heart Exam: Positive: Rate Normal Abdomen Exam: Positive: Normal bowel sounds, Soft, Tenderness (diffuse) Extremity Exam: Negative: Edema Neuro Exam: Positive: Normal Speech Psych Exam: Positive: Mental status NL, Oriented x 3 Vital Signs/I&O Vital Signs Date Time Temp Pulse Resp B/P Pulse Ox O2 Delivery O2 Flow Rate FiO2 11/27/16 09:00 Nasal Cannula 2.0 11/27/16 08:28 88 152/69 11/27/16 06:04 95 11/27/16 06:00 97.5 19 I&O- Last 24 Hours up to 6 AM 11/27/16 05:59 Intake Total 1080 ml Output Total 1950 ml Balance -870 ml Laboratory Data Labs 24H Laboratory Tests 2 11/27/16 05:49: Albumin 2.7L, Blood Urea Nitrogen 28H, Creatinine 0.69, Sodium Level 143, Potassium Level 3.7, Chloride Level 106, Carbon Dioxide Level 29, Anion Gap 8, White Blood Count 10.0, Red Blood Count 3.11L, Hemoglobin 9.4L, Hematocrit 28.9L , Mean Corpuscular Volume 93.0, Mean Corpuscular Hemoglobin 30.4, Mean Corpuscular Hemoglobin Concent 32.6, Red Cell Distribution Width 14.9H, Platelet Count 394, Neutrophils (%) (Auto) 80.8H, Lymphocytes (%) (Auto) 10.8L, Monocytes (%) (Auto) 6.1H, Eosinophils (%) (Auto) 0.5, Basophils (%) (Auto) 0.0 , Neutrophils # (Auto) 8.1H, Lymphocytes # (Auto) 1.1L, Monocytes # (Auto) 0.6, Eosinophils # (Auto) 0.0, Basophils # (Auto) 0.0, Calcium Level 8.5L, Glomerular Filtration Rate > 60.0, Large Unclassified Cells # 0.2, Large Unclassified Cells % 1.8, Phosphorus Level 3.1 CBC/BMP Laboratory Tests 11/27/16 05:49 Anion Gap 8, Red Blood Count 3.11 L, Mean Corpuscular Volume 93.0, Mean Corpuscular Hemoglobin 30.4, Mean Corpuscular Hemoglobin Concent 32.6, Red Cell Distribution Width 14.9 H, Neutrophils (%) (Auto) 80.8 H, Lymphocytes (%) (Auto ) 10.8 L, Monocytes (%) (Auto) 6.1 H, Eosinophils (%) (Auto) 0.5, Basophils (%) (Auto) 0.0, Neutrophils # (Auto) 8.1 H, Lymphocytes # (Auto) 1.1 L, Monocytes # (Auto) 0.6, Eosinophils # (Auto) 0.0, Basophils # (Auto) 0.0 Microbiology Microbiology 11/22/16 Blood Culture - Preliminary, Resulted No Growth after 72 hours. All specime... 11/22/16 Blood Culture - Preliminary, Resulted No Growth after 72 hours. All specime... 11/25/16 Gram Stain - Final, Resulted 11/25/16 Sputum Culture, Resulted Pending 11/23/16 Gram Stain - Final, Complete 11/23/16 Sputum Culture - Final, Complete Pseudomonas Aeruginosa Mucoid 11/22/16 Influenza Virus Type A Antigen - Final, Complete 11/22/16 Influenza Virus Type B Antigen - Final, Complete CHRIS CONNER Nov 27, 2016 13:32
[2016-11-27 14:00] VITALS: BP 145/64
--- NOTE | 2016-11-27 15:21 | CR ---
DATE OF CONSULTATION: 11/27/2016 I was asked by Dr. Ge to evaluate Ms. Bowers for chronic obstructive pulmonary disease (COPD) exacerbation recommendations at the request of her son. Ms. Bowers is an 81-year-old white female who is a patient of Dr. Justice'jesus with a history of COPD. I do not have access to the office records this weekend to know the severity of her disease, but I suspect that it is fairly significant. At her baseline, she is on DuoNebs as needed and Spiriva. She presented to the emergency department on 11/22 with increased shortness of breath. Per the admission note, she had been seen in the emergency department on 11/20 as she thought her legs were swollen and she was short of breath. She was diagnosed with COPD exacerbation at that time and discharged on dexamethasone. Prior to the admission she had doxycycline at home and 10 mg of prednisone and she started taking both of those. She also has oxygen at home that she wears on an as needed basis. Because of her persistent shortness of breath, she proceeded to the emergency department. Upon presentation, it was felt that she likely had a COPD exacerbation and she was admitted for therapy. A repeat chest x-ray a couple of days after admission, showed that she had a new right lower lobe infiltrate and a tiny pleural effusion. She was treated with a several day course of antibiotics consisting of vancomycin and cefepime. She clinically improved and was changed initially to Levaquin but developed a severe rash, and then to Augmentin. She had been on high dose Solu-Medrol and was changed over to oral prednisone. She was doing well and the plan had been to discharge her yesterday. Also of note during her admission she had a positive culture for Pseudomonas though the grown was only moderate. Her son did not want her discharged until she was evaluated by pulmonology. Today, Ms. Bowers initially stated that she was not feeling better on admission and later said that she was. Her son states that her cough has been consistent and predated her admission. She has not had any hemoptysis. Her shortness of breath has not changed. His biggest concern is this is the third admission since July and she has also had one additional emergency department visit for her pulmonary symptoms. He is questioning whether she should stay in house for a couple of weeks of antibiotics directed at Pseudomonas or go home and return with a plan to have antibiotics directed at these entities if she were to have further difficulties. In reviewing her admissions, her admission in July was felt to be secondary to COPD exacerbation. The admission in October is less clear as she presented on the 10/18, was diagnosed with a pneumonia, though her x-ray did not show a pneumonic process. She developed ST depression and was actually transferred and had a non-ST elevated myocardial infarction and was transferred to [place], so that may have explained that admission, rather than a true COPD difficulty. In [place], she had plasty done with two stents placed. No other concerns expressed. CURRENT MEDICATIONS: - albuterol nebulization four times a day - DuoNeb every 2 hours as needed - Augmentin 875 mg by mouth twice a day - aspirin 81 mg by mouth daily - Benadryl cream every 8 hours as needed itching - guaifenesin 600 mg by mouth twice a day as needed - heparin 5000 units subcu every 8 hours - Prinivil 10 mg by mouth daily - metoprolol 12.5 mg by mouth daily - Zofran 4 mg by mouth every 4 hours as needed - albuterol MDI one to two puffs every 6 hours as needed - Atrovent MDI two puffs four times a day - prednisone 40 mg by mouth daily - Advair 250/50 one puff twice a day - simethicone 80 mg by mouth every 6 hours as needed - Spiriva one puff daily - Zanaflex 1 mg by mouth every 8 hours as needed leg cramps ALLERGIES: 1. LIDOCAINE. 2. PROCAINE. 3. She has now has a reaction to LEVAQUIN with a rash. PAST MEDICAL HISTORY: 1. COPD, intermittent oxygen usage. 2. Coronary artery disease. (a) Non-ST elevation myocardial infarction 10/2016. (b) Status post plasty and two stents 10/2016. 3. Pulmonary hypertension. RA systolic pressure 72 per echocardiogram 10/2016. 4. History of transient ischemic attack (TIA). 5. Malaria. 6. Dysentery. 7. 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 8. Status post aortic stenosis 40-50 years ago. 9. Status post appendectomy. 10. History of tobacco usage. SOCIAL HISTORY: : Ms. Bowers is a former smoker who reportedly quit over 40 years ago. She does not drink alcohol. No drug usage. She has traveled in many years in the past including all continents except [place]. 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 She currently lives at home and her son is living with her. They have one dog. The patient was exposed to Agent [place]. No history of asbestos or tuberculosis. FAMILY HISTORY: Noncontributory to this admission. REVIEW OF SYSTEMS: CONSTITUTIONAL: Denies, fever, chills or night sweats, change in appetite, weight gain or loss. HEENT: Denies headaches, lightheadedness, dizziness, blurry vision, difficulty with speech or swallowing. CARDIOVASCULAR: No current chest pain. No paroxysmal nocturnal dyspnea (PND) or orthopnea. PULMONARY: Per history of present illness. GASTROINTESTINAL (GI): Notes nausea today but not routinely. She denies hematochezia, melena, hematemesis, emesis or constipation. She has some loose stools today which she attributes to antibiotics. No gastroesophageal reflux disease (GERD) symptoms. GENITOURINARY (): No urgency or dysuria. MUSCULOSKELETAL: No bone, muscle or joint discomfort. NEUROLOGIC: No dizziness, headaches, change in muscle tone. She has been noted to have some confusion. ENDOCRINE: Negative for diabetes or thyroid disease. LYMPHATICS: No lymphadenopathy noted. HEMATOLOGIC: No abnormal bleeding or bruising. PHYSICAL EXAMINATION: GENERAL: Ms. Bowers is lying in bed fully clothed. She can easily move from the lying position to the sitting position. VITAL SIGNS: Temperature 97.5 with a T-max of 98.7, pulse 88, blood pressure 152/69, respiratory rate 19, SpO2 95% on 2 liters by nasal cannula. HEENT: Anicteric. Nares patent bilaterally. Oxygen tubing in place. Moist mucosa. Oropharynx fair dentition. Moist mucosa. No evidence of drainage in the posterior pharynx. Neck supple, without jugular venous distention (JVD), without thyromegaly or masses. Trachea is midline. LYMPHS: Without cervical or supraclavicular lymphadenopathy. CHEST: Increase AP diameter. LUNGS: Symmetric excursion. Generalized diminished air entry. No wheeze, rhonchi or crackle on tidal excursion. Diminished breath more so at the right base. Mildly prolonged expiratory phase. No accessory muscle usage or retractions. Hyperresonance to percussion with slight dullness at the very right base. CARDIOVASCULAR: Distant, regular rate and rhythm with a normal S1 and S2, no murmur, rub or gallop appreciated. ABDOMEN: Normal active bowel sounds. Soft, nondistended, nontender. No hepatosplenomegaly or masses appreciated. EXTREMITIES: Without clubbing, cyanosis, or significant edema. Palpable pedal pulses bilaterally. LABORATORY DATA: CBC this morning shows a hemoglobin of 9.4, hematocrit 28.9, platelet count 394,000, white blood cell count 10,000 with a differential of 81% neutrophils, 11% lymphocytes, and 6% monocytes. Chemistries show a sodium of 143, potassium 3.7, chloride 106, bicarb 29, anion gap 8, BUN 28, creatinine 0.7, glucose 128, calcium 8.5, phosphorous 3.1, albumin 2.7. Sputum culture from 11/23 grew moderate Pseudomonas that was pansensitive. I reviewed her chest x-ray from 11/25/2016 which showed a small right lower lobe infiltrate with blunting of the costophrenic angle. Per the report and I confirmed myself this was new compared to 11/20/2016. Comparing it to the 11/22/2016 film there was appearance of perhaps a slight infiltrate in the right lower lobe, but no pleural effusion at that time. I also reviewed her chest CT as well as the report from 11/22/2016. CT scan showed normal appearing cardiac silhouette and pulmonary vascular shadows. No mediastinal or hilar lymphadenopathy. Showed patchy infiltrates in the right upper middle and bilateral lower lobes. On my review there were slight patchy findings in the right upper and right middle lobe as well as the bilateral lower lobe, but the most pronounced finding was in the right lower lobe. There were bilateral emphysematous changes. IMPRESSION: 1. Right lower lobe infiltrate with a small pleural effusion. I am not certain what to make out of this pseudomonas growth as it was only moderate. A repeat culture is still pending but has no organisms seen on gram stain. I suspect that this may be just a sampling change and that she likely is colonized with Pseudomonas. She was only on one antibiotic for 24 hours that would have antipseudomonal properties and that was cefepime. Clinically she has remained afebrile and does not have a white blood cell count. She has had no change in her cough and no increased shortness of breath. Oxygenation is appropriate. 2. COPD with likely exacerbation on admission. 3. Status post recently non-ST elevation myocardial infarction with two stent placement. 4. Pulmonary hypertension, severe, per echocardiogram in October 2016. RECOMMENDATIONS: 1. As the patient is feeling better and could continue with her currently therapies that she has received in the hospital, I feel it is reasonable that she be discharged to home. 2. However, I feel she needs short term followup and I recommended that they contact the office so an arrangement can be made for her to followup with a nurse practitioner or Dr. Justice this week. 3. I feel she should have a repeat two view chest x-ray at that time to reevaluate the tiny pleural effusion. I did not appreciate in the size of the effusion on examination today. 4. In regards to the Pseudomonas probable colonization, will defer to Dr. Justice as to whether he wants to try instituting gentamicin nebulizations as an outpatient. Unfortunately it is very unlikely that she would be able to obtain Stiven nebulizations. 5. These recommendations were passed on to Dr. Mari.
[2016-11-27 22:00] VITALS: BP 133/60
[2016-11-28] MEDS: HEPARIN SOD (PORCINE) 5000 UNITS/ML VIAL SQ SCH ×2 (05:21→14:27)
[2016-11-28 06:00] VITALS: BP 116/56
[2016-11-28 06:12] LABS: BASO % 0.2 % (0.0-1.0); EOS # 0.1 K/mm3 (0.0-0.50); EOS % 1.2 % (0.0-3.0); LARGE UNSTAINED CELL # 0.2 K/mm3 (0.0-0.4); LARGE UNSTAINED CELL % 1.9 % (0.0-4.0); LYMPH # 2.2 K/mm3 (1.5-4.5); LYMPH % 22.9 % (24.0-44.0); MEAN CORPUSCULAR HEMOGLOBIN 30.4 pg (27.0-33.0); MEAN CORPUSCULAR HGB CONC 32.5 g/dl (32.0-36.5); MEAN CORPUSCULAR VOLUME 93.3 fl (80.0-96.0); MONO # 0.7 K/mm3 (0.0-0.8); NEUTROPHILS # 6.4 K/mm3 (1.8-7.7); NEUTROPHILS % 66.9 % (36.0-66.0); PLATELET COUNT, AUTOMATED 418 k/mm3 (150-450); WHITE BLOOD COUNT 9.5 K/mm3 (4.0-10.0)
[2016-11-28 06:45] LABS: ALBUMIN 2.6 GM/DL (3.2-5.2); ANION GAP 10 MEQ/L (8-16); BLOOD UREA NITROGEN 24 MG/DL (7-18); CALCIUM LEVEL 8.2 MG/DL (8.8-10.2); CARBON DIOXIDE LEVEL 28 MEQ/L (21-32); CHLORIDE LEVEL 104 MEQ/L (98-107); CREATININE FOR GFR 0.77 MG/DL (0.55-1.02); GLOMERULAR FILTRATION RATE > 60.0 (>32); GLUCOSE, FASTING 96 MG/DL (83-110); PHOSPHORUS LEVEL 3.2 MG/DL (2.5-4.9); SODIUM LEVEL 142 MEQ/L (136-145)
[2016-11-28] MEDS: ADVAIR DISKUS 250/50 INH PWD INH SCH (07:32)
[2016-11-28] MEDS: ALBUTEROL SULFATE 2.5 MG/0.5 ML INH NEB SOLN INH SCH ×3 (07:33→15:03)
[2016-11-28] MEDS: TIOTROPIUM INHALER/CAPSULE (SPIRIVA) INH SCH (07:34)
[2016-11-28] MEDS: LISINOPRIL 10 MG TAB PO SCH ×2 (09:00→09:54)
[2016-11-28 09:54] VITALS: BP 116/52
[2016-11-28] MEDS: AUGMENTIN 875 MG TAB PO SCH (09:54)
[2016-11-28] MEDS: METOPROLOL TART 12.5 MG PER 1/2 TAB PO SCH (09:54)
[2016-11-28] MEDS: predniSONE 20 MG TAB PO SCH (09:54)
[2016-11-28] MEDS: ASPIRIN 81 MG ENTERIC TAB PO SCH (09:54)
--- NOTE | 2016-11-28 10:57 | DS.PDOC ---
Discharge Summary General Date of Admission Nov 22, 2016 at 20:28 Date of Discharge 11/28/2016 Discharge Summary Please note, this is an addendum to the discharge summary dictated by Dr. Gatito Ge on 11/26/2016. Please refer to his full discharge summary for further details. UPDATE TO HOSPITAL COURSE: The patient was previously scheduled to be discharged over the weekend, but the patient and her son had some concerns about the Pseudomonas that was found in her sputum culture. They requested a pulmonary consultation. The patient remained in the hospital until today, so that she could be evaluated by Dr. Balderas. Dr. Balderas saw the patient in consultation, and states that she believes most likely, the Pseudomonas in the sputum culture represents colonization. At this time, she is recommending that the patient follow-up with a nurse practitioner in the office within this coming week, and get a 2 view chest x-ray to reevaluate the small pleural effusion was noted on prior imaging. Additionally, yesterday morning, the patient had a couple episodes of diarrhea. A sample was not collected, as the diarrhea cleared up on its own and the patient did not stool any further. On the day of discharge, the patient is feeling well and is requesting to go home. PHYSICAL EXAMINATION ON DISCHARGE: VITAL SIGNS: Vital Signs Date Time Temp Pulse Resp B/P Pulse Ox O2 Delivery O2 Flow Rate FiO2 11/28/16 09:54 80 116/52 11/28/16 06:00 97.9 19 96 Nasal Cannula 2.0 GENERAL: Awake, alert, no acute distress CARDIOVASCULAR EXAMINATION: Regular rate and rhythm, with no rubs, gallops, or murmur. RESPIRATORY EXAMINATION: Clear to auscultation bilaterally with no wheezes, rales, or rhonchi. ABDOMINAL EXAMINATION: Soft, nontender, nondistended. Bowel sounds present. EXTREMITIES: No clubbing or edema noted. 2+ pulses in the radial bilaterally. DISPOSITION: Home DISCHARGE INSTRUCTIONS: Follow-up with the nurse practitioner in Dr. Justice's office this coming week. Needs repeat 2 view chest x-ray to reevaluate tiny pleural effusion. If symptoms return, or if you experience worsening of your symptoms, please call your doctor or return to the emergency department. ITEMS THAT NEED OUTPATIENT FOLLOWUP: Needs repeat 2 view chest x-ray to reevaluate tiny pleural effusion. Patient was seen and examined by me on the day of discharge, and I spent a total time of less than 30 minutes on this discharge. Vital Signs/I&Os Vital Signs Date Time Temp Pulse Resp B/P Pulse Ox O2 Delivery O2 Flow Rate FiO2 11/28/16 09:54 80 116/52 11/28/16 06:00 97.9 19 96 Nasal Cannula 2.0 I&O- Last 24 Hours up to 6 AM 11/28/16 06:00 Intake Total 1020 ml Output Total 1300 ml Balance -280 ml Laboratory Data Labs 24H Laboratory Tests 2 11/28/16 05:42: Albumin 2.6L, Blood Urea Nitrogen 24H, Creatinine 0.77, Sodium Level 142, Potassium Level 4.0, Chloride Level 104, Carbon Dioxide Level 28, Anion Gap 10, White Blood Count 9.5, Red Blood Count 3.17L, Hemoglobin 9.6L, Hematocrit 29.6L , Mean Corpuscular Volume 93.3, Mean Corpuscular Hemoglobin 30.4, Mean Corpuscular Hemoglobin Concent 32.5, Red Cell Distribution Width 15.0H, Platelet Count 418, Neutrophils (%) (Auto) 66.9H, Lymphocytes (%) (Auto) 22.9L, Monocytes (%) (Auto) 7.0H, Eosinophils (%) (Auto) 1.2, Basophils (%) (Auto) 0.2 , Neutrophils # (Auto) 6.4, Lymphocytes # (Auto) 2.2, Monocytes # (Auto) 0.7, Eosinophils # (Auto) 0.1, Basophils # (Auto) 0.0, Calcium Level 8.2L, Glomerular Filtration Rate > 60.0, Large Unclassified Cells # 0.2, Large Unclassified Cells % 1.9, Phosphorus Level 3.2 CBC/BMP Laboratory Tests 11/28/16 05:42 Anion Gap 10, Red Blood Count 3.17 L, Mean Corpuscular Volume 93.3, Mean Corpuscular Hemoglobin 30.4, Mean Corpuscular Hemoglobin Concent 32.5, Red Cell Distribution Width 15.0 H, Neutrophils (%) (Auto) 66.9 H, Lymphocytes (%) (Auto ) 22.9 L, Monocytes (%) (Auto) 7.0 H, Eosinophils (%) (Auto) 1.2, Basophils (%) (Auto) 0.2, Neutrophils # (Auto) 6.4, Lymphocytes # (Auto) 2.2, Monocytes # ( Auto) 0.7, Eosinophils # (Auto) 0.1, Basophils # (Auto) 0.0 Microbiology Microbiology 11/22/16 Blood Culture - Final, Complete NO GROWTH AFTER 5 DAYS 11/22/16 Blood Culture - Final, Complete NO GROWTH AFTER 5 DAYS 11/25/16 Gram Stain - Final, Complete 11/25/16 Sputum Culture - Final, Complete Yeast Like Organism 11/23/16 Gram Stain - Final, Complete 11/23/16 Sputum Culture - Final, Complete Pseudomonas Aeruginosa Mucoid 11/22/16 Influenza Virus Type A Antigen - Final, Complete 11/22/16 Influenza Virus Type B Antigen - Final, Complete Medications Scheduled (Calcium/Vitamin D 500-200 mg-Unit) 1 Tab Tab 1 TAB PO DAILY Albuterol/Ipratropium (Ipratropium [place]/Albut 0.5-2.5 (3) mg/3Ml) 1 Daylin Daylin 3 ML NEB RQ6H Amoxicillin/Clavulanate [place] (Augmentin 875-125 mg) 1 Tab Tab 875 MG PO BID Aspirin (Aspirin EC) 81 Mg Tabec 81 MG PO DAILY Lisinopril (Lisinopril) 10 Mg Tab 10 MG PO DAILY Metoprolol Tartrate (Metoprolol Tartrate) 12.5 Mg Halftab 12.5 MG PO DAILY Prednisone (Prednisone) 10 Mg [place] 10 MG PO DAILY Tiotropium [place] Monohydrate (Spiriva Handihaler) 18 Mcg Cap 1 INHALATION INH DAILY Scheduled PRN Albuterol Sulfate (Ventolin Hfa) 200 Puff/8 Gm Aers 2 PUFF INH Q4H PRN PRN SHORTNESS OF BREATH Albuterol Sulfate (Albuterol Sulfate) 2.5 Mg/0.5 Ml Neb 2.5 MG INH Q4H PRN PRN SHORTNESS OF BREATH Alprazolam (Alprazolam) 0.25 Mg Tab 0.25 MG PO TID PRN PRN ANXIETY Guaifenesin (Mucinex) 600 Mg Tab 600 MG PO BID PRN PRN CONGESTION Ipratropium [place] (Atrovent Hfa) 200 Puff/12.9 Gm Aers 2 PUFF INH Q4H PRN PRN SHORTNESS OF BREATH Ipratropium [place] (Ipratropium [place]) 0.5 Mg/2.5 Ml Soln 0.5 MG INH Q4H PRN PRN SHORTNESS OF BREATH Nitroglycerin (Nitrostat) 0.4 Mg Subl 0.4 MG SL Q5MP PRN PRN CHEST PAIN Tizanidine Hydrochloride (Tizanidine HCl) 2 Mg Cap 0.5 TAB PO TID PRN PRN MUSCLE SPASMS Allergies Coded Allergies: Lidocaine (Verified Allergy, Mild, RASH, 02/11/13) Procaine (Verified Allergy, Mild, RASH, 02/11/13) CHRIS CONNER Nov 28, 2016 10:57
[2016-11-28 14:00] VITALS: BP 139/61
[2016-11-28] MEDS: guaiFENesin ER 600 MG TAB PO PRN (16:16)
== END 2016-11-28 16:33 | disposition home or self-care (01) | DRG 194 ==
LOC: M ED 14:48 → M ED INP 20:28 → M PCU 22:48 → M MSPAV 11-23 10:22
PROVIDERS: ADMIT Internal Medicine; ATTEND Hospitalist
DX: J18.9 Pneumonia, unspecified organism (principal); J44.1 Chronic obstructive pulmonary disease with (acute) exacerbation; Y95 Nosocomial condition; I25.10 Atherosclerotic heart disease of native coronary artery without angina pectoris; I25.2 Old myocardial infarction; I27.2 Other secondary pulmonary hypertension; T36.8X5A Adverse effect of other systemic antibiotics, initial encounter; R19.7 Diarrhea, unspecified; I10 Essential (primary) hypertension; R25.2 Cramp and spasm; R21 Rash and other nonspecific skin eruption; Z90.5 Acquired absence of kidney; Z86.73 Personal history of transient ischemic attack (TIA), and cerebral infarction without residual deficits; Z95.5 Presence of coronary angioplasty implant and graft; Z79.82 Long term (current) use of aspirin; Z79.899 Other long term (current) drug therapy; Z87.891 Personal history of nicotine dependence

== ENCOUNTER 2016-12-14 22:55 | Emergency (ER) | payer MEDICARE, OTHER ==
[~2016-12-14 22:55] MED LIST changes: +AUGM875T27 PO; +DOXY-278 PO; +LEVA500T PO; +METO-346 PO
[2016-12-15 00:30] LABS: MEAN CORPUSCULAR HEMOGLOBIN 29.2 pg (27.0-33.0); MEAN CORPUSCULAR HGB CONC 31.3 g/dl (32.0-36.5); MEAN CORPUSCULAR VOLUME 93.1 fl (80.0-96.0); RED CELL DISTRIBUTION WIDTH 15.4 % (11.5-14.5); WHITE BLOOD COUNT 7.6 K/mm3 (4.0-10.0)
--- NOTE | 2016-12-15 00:56 | EDDOCDS ---
Physician Documentation [facility] Name: Harmony Bowers Age: 81 yrs Sex: Female : 1935 Arrival Date: 12/14/2016 Time: 22:55 Bed 15 Private MD: Anson Lomeli M.D. Disposition: 12/15 00:44 Critical Care: Critical care not applicable. pc Disposition: 12/15/16 00:45 Discharged to Home/Self Care. Impression: Other nonthrombocytopenic purpura - corticosteroid induced. - Condition is Stable. - Blank Diagnosis Outline, Medication Reconciliation, Local Pharmacy Hours form. - Follow up: Anson Lomeli; When: As previously arranged; Reason: Continuance of care. - Problem is new. - Symptoms are unchanged. HPI: 00:26 This 81 yrs old Female presents to ER via Walkin/Carried/Asstd with complaints of "blotches on my ankles". 00:26 The history is obtained from the patient. She has intermittent pedal edema, worse since pc being on a 10 day steroid taper for COPD. She noticed she has purple blotches on both ankles/lower shins tonight and decided to come in for evaluation. The patient has not experienced similar symptoms in the past. The patient has been recently been admitted at [facility], was discharged last week, for pneumonia . Historical: - Allergies: Lidocaine; procaine (bulk); Levaquin; - Home Meds: 1. albuterol sulfate 90 mcg/actuation Inhl HFAA 2 puffs every 4 hours prn 2. albuterol sulfate 2.5 mg /3 mL (0.083 %) Inhl nebu every 6 hours 3. alprazolam 0.25 mg Oral TbDL 1 tab as needed 4. aspirin 81 mg Oral chew 1 tab once daily 5. Atrovent 18 mcg/actuation Inhl aero 2 puff every 4 hours as needed 6. Calcium + Vitamin D 600 mg calcium- 200 unit Oral tab 7. doxycycline hyclate 100 mg Oral cap 1 cap 2 times per day 8. DuoNeb 0.5 mg-3 mg(2.5 mg base)/3 mL Inhl nebu 3 mL 4 times per day 9. Norvasc 10 mg Oral tab 1 tab once daily 10. omeprazole 20 mg Oral cpDR 1 cap daily PRN 11. oxygen 3.5-4lnc 12. prednisone 10 mg Oral tab 1 tab once daily 13. tizanidine oral 0.5 cap as needed 14. Zyrtec 10 mg Oral tab 1 tab once daily - PMHx: CAD; COPD; Diverticulosis; Hypercholesterolemia; Hypertension; TIA; - PSHx: Cardiac stents; - The history from nurses notes was reviewed: and elements of the historical information I have obtained differs from that reported to nursing. - Social history: Smoking status: Patient states was never smoker of tobacco. No barriers to communication noted, The patient speaks fluent [place], Speaks appropriately for age. - Family history: Not pertinent. - : The pt / caregiver states he / she is not on anticoagulants. Home medication list is obtained from the facility [facility]. - Hospitalizations: : The patient was recently seen at [facility]. - Exposure Risk Screening:: None identified. - Immunization history:: All immunizations up-to-date. - Social history:: the patient is a former smoker, the patient does not drink alcohol. ROS: 00:26 All systems are negative except as listed. pc Exam: 00:26 General Appearance: no acute distress, alert. pc 00:26 Extremities: mild pedal edema, non-pitting bilaterally. There are a few purpuric areas of both LEs, of differing sizes, without pain or warmth. Vital Signs: 12/14 22:57 BP 155 / 58; Pulse 93; Resp 18 S; Temp 97.5(O); Pulse Ox 92% on R/A; Weight 49.9 kg / gr2 110.01 lbs (R); Height 5 ft. 0 in. (152.40 cm) (R); Pain 0/10; 12/15 00:53 BP 142 / 56; Pulse 70; Resp 18; Temp 97.8(O); Pulse Ox 98% on R/A; Pain 0/10; tm5 12/14 22:57 Body Mass Index 21.48 (49.90 kg, 152.40 cm) gr2 MDM: 12/14 23:17 [facility] Payment Agreement was scanned into [employer] and attached to record. zo 12/15 00:03 CBC Ordered. EDMS 00:22 Financial registration complete. pm4 00:28 Differential Diagnosis: lower extremities edema with purpura due to steroid usage r/o pc low platelet count. Plan: lab, reassurance. 00:43 CBC Reviewed. pc 00:44 Data reviewed: old medical records, vital signs, nurses notes, lab test results. Test pc interpretation: LAB - all labs as ordered have been reviewed, interpreted and considered in the overall management of the clinical presentation;. The patient has been re-examined and re-evaluated. The clinical presentation did not require any ED treatment or interventions. Disposition: The historical points, examination findings, and any diagnostic results supporting the provided diagnosis, were discussed with the patient or legal guardian. The need for outpatient follow up with the provider listed on their discharge instructions was discussed. They were encouraged to return to [facility], or the nearest ED, if symptoms worsen/persist, or for any other questions/concerns. Signatures: Dispatcher [employer] Real Serrano MD MD pc Olin, Zoeann zo Nunez, NikkoleRN RN nn1 Sheela Parker RN RN tm5 Bishop Lindsay, Reg Reg pm4 The chart was reviewed and I authenticate all verbal orders and agree with the evaluation and treatment provided.Corrections: (The following items were deleted from the chart) 00:44 00:28 Differential Diagnosis: lower extremities edema with ecchymosis due to steroid pc usage r/o low platelet count pc 00:44 00:26 Extremities: mild pedal edema, non-pitting bilaterally. There are a few pc ecchymotic areas of both LEs, of differing sizes, without pain or warmth. pc Attachments: 12/14 23:17 [facility] Payment Agreement zo MTDD
--- NOTE | 2016-12-17 01:56 | EDDOCDS ---
Physician Documentation [facility] Name: Harmony Bowers Age: 81 yrs Sex: Female : 1935 Arrival Date: 12/14/2016 Time: 22:55 Bed 15 Private MD: Anson Lomeli M.D. Disposition: 12/15 00:44 Critical Care: Critical care not applicable. pc Disposition: 12/15/16 00:45 Discharged to Home/Self Care. Impression: Other nonthrombocytopenic purpura - corticosteroid induced. - Condition is Stable. - Blank Diagnosis Outline, Medication Reconciliation, Local Pharmacy Hours form. - Follow up: Anson Lomeli; When: As previously arranged; Reason: Continuance of care. - Problem is new. - Symptoms are unchanged. HPI: 00:26 This 81 yrs old Female presents to ER via Walkin/Carried/Asstd with complaints of "blotches on my ankles". 00:26 The history is obtained from the patient. She has intermittent pedal edema, worse since pc being on a 10 day steroid taper for COPD. She noticed she has purple blotches on both ankles/lower shins tonight and decided to come in for evaluation. The patient has not experienced similar symptoms in the past. The patient has been recently been admitted at [facility], was discharged last week, for pneumonia . Historical: - Allergies: Lidocaine; procaine (bulk); Levaquin; - Home Meds: 1. albuterol sulfate 90 mcg/actuation Inhl HFAA 2 puffs every 4 hours prn 2. albuterol sulfate 2.5 mg /3 mL (0.083 %) Inhl nebu every 6 hours 3. alprazolam 0.25 mg Oral TbDL 1 tab as needed 4. aspirin 81 mg Oral chew 1 tab once daily 5. Atrovent 18 mcg/actuation Inhl aero 2 puff every 4 hours as needed 6. Calcium + Vitamin D 600 mg calcium- 200 unit Oral tab 7. doxycycline hyclate 100 mg Oral cap 1 cap 2 times per day 8. DuoNeb 0.5 mg-3 mg(2.5 mg base)/3 mL Inhl nebu 3 mL 4 times per day 9. Norvasc 10 mg Oral tab 1 tab once daily 10. omeprazole 20 mg Oral cpDR 1 cap daily PRN 11. oxygen 3.5-4lnc 12. prednisone 10 mg Oral tab 1 tab once daily 13. tizanidine oral 0.5 cap as needed 14. Zyrtec 10 mg Oral tab 1 tab once daily - PMHx: CAD; COPD; Diverticulosis; Hypercholesterolemia; Hypertension; TIA; - PSHx: Cardiac stents; - The history from nurses notes was reviewed: and elements of the historical information I have obtained differs from that reported to nursing. - Social history: Smoking status: Patient states was never smoker of tobacco. No barriers to communication noted, The patient speaks fluent Erit[place], Speaks appropriately for age. - Family history: Not pertinent. - : The pt / caregiver states he / she is not on anticoagulants. Home medication list is obtained from the facility [facility]. - Hospitalizations: : The patient was recently seen at [facility]. - Exposure Risk Screening:: None identified. - Immunization history:: All immunizations up-to-date. - Social history:: the patient is a former smoker, the patient does not drink alcohol. ROS: 00:26 All systems are negative except as listed. pc Exam: 00:26 General Appearance: no acute distress, alert. pc 00:26 Extremities: mild pedal edema, non-pitting bilaterally. There are a few purpuric areas of both LEs, of differing sizes, without pain or warmth. Vital Signs: 12/14 22:57 BP 155 / 58; Pulse 93; Resp 18 S; Temp 97.5(O); Pulse Ox 92% on R/A; Weight 49.9 kg / gr2 110.01 lbs (R); Height 5 ft. 0 in. (152.40 cm) (R); Pain 0/10; 12/15 00:53 BP 142 / 56; Pulse 70; Resp 18; Temp 97.8(O); Pulse Ox 98% on R/A; Pain 0/10; tm5 12/14 22:57 Body Mass Index 21.48 (49.90 kg, 152.40 cm) gr2 MDM: 12/14 23:17 [facility] Payment Agreement was scanned into [employer] and attached to record. zo 12/15 00:03 CBC Ordered. EDMS 00:22 Financial registration complete. pm4 00:28 Differential Diagnosis: lower extremities edema with purpura due to steroid usage r/o pc low platelet count. Plan: lab, reassurance. 00:43 CBC Reviewed. pc 00:44 Data reviewed: old medical records, vital signs, nurses notes, lab test results. Test pc interpretation: LAB - all labs as ordered have been reviewed, interpreted and considered in the overall management of the clinical presentation;. The patient has been re-examined and re-evaluated. The clinical presentation did not require any ED treatment or interventions. Disposition: The historical points, examination findings, and any diagnostic results supporting the provided diagnosis, were discussed with the patient or legal guardian. The need for outpatient follow up with the provider listed on their discharge instructions was discussed. They were encouraged to return to [facility], or the nearest ED, if symptoms worsen/persist, or for any other questions/concerns. Signatures: Dispatcher [employer] Real Serrano MD MD pc Olin, Zoeann zo Nunez, NikkoleRN RN nn1 Sheela Parker RN RN tm5 Bishop Lindsay, Reg Reg pm4 The chart was reviewed and I authenticate all verbal orders and agree with the evaluation and treatment provided.Corrections: (The following items were deleted from the chart) 00:44 00:28 Differential Diagnosis: lower extremities edema with ecchymosis due to steroid pc usage r/o low platelet count pc 00:44 00:26 Extremities: mild pedal edema, non-pitting bilaterally. There are a few pc ecchymotic areas of both LEs, of differing sizes, without pain or warmth. pc Attachments: 12/14 23:17 [facility] [place] zo Chart Complete MTDD
--- NOTE | 2016-12-17 01:56 | EDDOCDS ---
Nurse's Notes [facility] Name: Harmony Bowers Age: 81 yrs Sex: Female : 1935 Arrival Date: 12/14/2016 Time: 22:55 Bed 15 Private MD: Anson Lomeli M.D. Diagnosis: Other nonthrombocytopenic purpura-corticosteroid induced Presentation: 12/14 23:01 Presenting complaint: Patient states: edema in bilateral lower legs. Family reports nn1 legs are becoming red. Adult Sepsis Screening: The patient does not have new or worsening altered mentation. Patient's respiratory rate is less than 22. Systolic blood pressure is greater than 100. Patient has a qSOFA score of 0- Negative Sepsis Screen. Suicide/Homicide risk assessment- the patient denies having any suicidal and/or homicidal ideations and does not present with any other emotional, behavioral or mental health complaints. 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 Transition of care: patient was not received from another setting of care. 23:01 Method Of Arrival: Walkin/Carried/Asstd nn1 23:01 Acuity: KENNEDY Level 3 jmb Triage Assessment: 23:04 General: Appears in no apparent distress, comfortable, Behavior is appropriate for age, nn1 cooperative. Pain: Denies pain. Neurological: Level of Consciousness is awake, alert, obeys commands. Cardiovascular: Reports Edema in bilateral feet. Respiratory: Airway is patent Respiratory effort is even, unlabored, Respiratory pattern is regular, symmetrical. Derm: Bilateral lower extremities red, poor skin tugor. Swollen area noted on right foot and left foot. Historical: - Allergies: Lidocaine; procaine (bulk); Levaquin; - Home Meds: 1. albuterol sulfate 90 mcg/actuation Inhl HFAA 2 puffs every 4 hours prn 2. albuterol sulfate 2.5 mg /3 mL (0.083 %) Inhl nebu every 6 hours 3. alprazolam 0.25 mg Oral TbDL 1 tab as needed 4. aspirin 81 mg Oral chew 1 tab once daily 5. Atrovent 18 mcg/actuation Inhl aero 2 puff every 4 hours as needed 6. Calcium + Vitamin D 600 mg calcium- 200 unit Oral tab 7. doxycycline hyclate 100 mg Oral cap 1 cap 2 times per day 8. DuoNeb 0.5 mg-3 mg(2.5 mg base)/3 mL Inhl nebu 3 mL 4 times per day 9. Norvasc 10 mg Oral tab 1 tab once daily 10. omeprazole 20 mg Oral cpDR 1 cap daily PRN 11. oxygen 3.5-4lnc 12. prednisone 10 mg Oral tab 1 tab once daily 13. tizanidine oral 0.5 cap as needed 14. Zyrtec 10 mg Oral tab 1 tab once daily - PMHx: CAD; COPD; Diverticulosis; Hypercholesterolemia; Hypertension; TIA; - PSHx: Cardiac stents; - The history from nurses notes was reviewed: and elements of the historical information I have obtained differs from that reported to nursing. - Social history: Smoking status: Patient states was never smoker of tobacco. No barriers to communication noted, The patient speaks fluent British, Speaks appropriately for age. - Family history: Not pertinent. - : The pt / caregiver states he / she is not on anticoagulants. Home medication list is obtained from the facility [facility]. - Hospitalizations: : The patient was recently seen at [facility]. - Exposure Risk Screening:: None identified. - Immunization history:: All immunizations up-to-date. - Social history:: the patient is a former smoker, the patient does not drink alcohol. Screenin:06 Screening information is obtained from the patient. Fall risk: At risk due to gait nn1 disturbance, Reports difficulty walking due to leg swelling. Assistance ADL's: requires no assistance with activities of daily living. Abuse/DV Screen: The patient / caregiver reports he/she is: not in a situation that causes fear, pain or injury. Nutritional screening: No deficits noted. Advance Directives: Currently, there is no health care proxy. There is no active DNR order. There is no living will. home support is adequate. Assessment: 23:40 General: pt refuses to get undressed, states " for what I'm staying here again", pt tm5 being argumentative with staff. 23:48 Pain: Denies pain. Neurological: Level of Consciousness is awake, alert, Oriented to tm5 person, place, time. Cardiovascular: Edema is 2+ to left ankle, left toes, right ankle and right toes pitting to left ankle, left foot, left toes, right ankle, right foot and right toes Chest pain is denied. Respiratory: Airway is patent Respiratory effort is even, unlabored, Respiratory pattern is regular, symmetrical, Breath sounds are clear bilaterally. Derm: Skin is pink, warm & dry. Musculoskeletal: No deficits noted. 12/15 00:53 Reassessment: Patient appears in no apparent distress at this time. tm5 Vital Signs: 02 22:57 BP 155 / 58; Pulse 93; Resp 18 S; Temp 97.5(O); Pulse Ox 92% on R/A; Weight 49.9 kg gr2 (R); Height 5 ft. 0 in. (152.40 cm) (R); Pain 0/10; 12/15 00:53 BP 142 / 56; Pulse 70; Resp 18; Temp 97.8(O); Pulse Ox 98% on R/A; Pain 0/10; tm5 02 22:57 Body Mass Index 21.48 (49.90 kg, 152.40 cm) gr2 Vitals: 02 22:57 Log In Time: December 14, 2016 at 22:57. gr2 ED Course: 22:57 Patient visited by Avery Wells. gr2 22:57 Anson Lomeli is Private Physician. gr2 22:57 Patient moved to Waiting gr2 22:59 Patient visited by Avery Wells. gr2 22:59 Patient moved to Pre RCE gr2 23:00 Patient visited by Avery Wells. gr2 23:02 Triage Initiated nn1 23:17 Patient name changed from Harmony\\S\\\\S\\Bang\\S\\ to Harmony\\S\\ \\S\\Bang. EDMS 23:17 [facility] Payment Agreement was scanned into [employer] and attached to record. zo 23:29 Patient moved to Triage 1 kmg1 23:32 Patient moved to 15 tm5 23:40 Patient visited by Sheela Parker RN. tm5 23:42 Real Hu MD is Attending Physician. pc 23:48 Patient visited by Sheela Parker RN. tm5 23:48 Awaiting ED physician evaluation. tm5 23:48 The patient / caregiver is instructed regarding the plan of care and ED course. tm5 23:57 Patient visited by Real Hu MD. pc 12/15 00:01 Patient visited by Sheela Parker RN. tm5 00:01 ED physician to see patient. tm5 00:07 Patient visited by Sheela Parker RN. tm5 00:07 CBC Sent. tm5 00:08 Labs drawn. (by ED staff). Sent per order to lab. tm5 00:45 Anson Lomeli is Referral Physician. pc 00:53 Patient visited by Sheela Parker RN. tm5 00:53 No IV's were initiated during this patient's visit. No procedures done that require tm5 assistance. Order Results: Lab Order: CBC; SPEC'M 12/15/16 00:06 Test: WHITE BLOOD COUNT; Value: 7.6; Range: 4.0-10.0; Units: K/mm3; Status: F Test: RED BLOOD COUNT; Value: 3.70; Range: 4.00-5.40; Abnormal: Below low normal; Units: M/mm3; Status: F Test: HEMOGLOBIN; Value: 10.8; Range: 12.0-16.0; Abnormal: Below low normal; Units: g/dl; Status: F Test: HEMATOCRIT; Value: 34.4; Range: 36.0-47.0; Abnormal: Below low normal; Units: %; Status: F Test: MEAN CORPUSCULAR VOLUME; Value: 93.1; Range: 80.0-96.0; Units: fl; Status: F Test: MEAN CORPUSCULAR HEMOGLOBIN; Value: 29.2; Range: 27.0-33.0; Units: pg; Status: F Test: MEAN CORPUSCULAR HGB CONC; Value: 31.3; Range: 32.0-36.5; Abnormal: Below low normal; Units: g/dl; Status: F Test: RED CELL DISTRIBUTION WIDTH; Value: 15.4; Range: 11.5-14.5; Abnormal: Above high normal; Units: %; Status: F Test: PLATELET COUNT, AUTOMATED; Value: 242; Range: 150-450; Units: k/mm3; Status: F Outcome: 00:45 Discharge ordered by Provider. pc 00:53 Discharge Assessment: Patient awake, alert and oriented x 3. No cognitive and/or tm5 functional deficits noted. Patient verbalized understanding of disposition instructions. patient administered narcotics - no. The following High Risk Discharge criteria are identified: None. Discharged to home ambulatory, with family. Condition: good Condition: stable. Discharge instructions given to patient, Instructed on discharge instructions, follow up and referral plans. Demonstrated understanding of instructions, Pt was receptive of discharge instructions/ teaching. No special radiology studies were completed. Property :Personal belongings accompany Pt. 00:54 Patient left the ED. tm5 Signatures: Dispatcher [employer] EDMS Real Hu MD MD pc Garrison, Kelly RN RN kmg1 Greta Toney Gainslee 2 Lenny ZaldivarRN RN jmb Hola Rosas RN RN nn1 Sheela ParkerRN RN tm5 Corrections: (The following items were deleted from the chart) 12/14 23:06 23:01 Acuity: KENNEDY Level 3 nn1 nn1 23:14 23:01 Acuity: KENNEDY Level 4 nn1 juanb Chart Complete MTDD
--- NOTE | 2016-12-17 01:56 | EDDOCDS ---
Physician Documentation [facility] Name: Harmony Bowers Age: 81 yrs Sex: Female : 1935 Arrival Date: 12/14/2016 Time: 22:55 Bed 15 Private MD: Anson Lomeli M.D. Disposition: 12/15 00:44 Critical Care: Critical care not applicable. pc Disposition: 12/15/16 00:45 Discharged to Home/Self Care. Impression: Other nonthrombocytopenic purpura - corticosteroid induced. - Condition is Stable. - Blank Diagnosis Outline, Medication Reconciliation, Local Pharmacy Hours form. - Follow up: Anson Lomeli; When: As previously arranged; Reason: Continuance of care. - Problem is new. - Symptoms are unchanged. HPI: 00:26 This 81 yrs old Female presents to ER via Walkin/Carried/Asstd with complaints of "blotches on my ankles". 00:26 The history is obtained from the patient. She has intermittent pedal edema, worse since pc being on a 10 day steroid taper for COPD. She noticed she has purple blotches on both ankles/lower shins tonight and decided to come in for evaluation. The patient has not experienced similar symptoms in the past. The patient has been recently been admitted at [facility], was discharged last week, for pneumonia . Historical: - Allergies: Lidocaine; procaine (bulk); Levaquin; - Home Meds: 1. albuterol sulfate 90 mcg/actuation Inhl HFAA 2 puffs every 4 hours prn 2. albuterol sulfate 2.5 mg /3 mL (0.083 %) Inhl nebu every 6 hours 3. alprazolam 0.25 mg Oral TbDL 1 tab as needed 4. aspirin 81 mg Oral chew 1 tab once daily 5. Atrovent 18 mcg/actuation Inhl aero 2 puff every 4 hours as needed 6. Calcium + Vitamin D 600 mg calcium- 200 unit Oral tab 7. doxycycline hyclate 100 mg Oral cap 1 cap 2 times per day 8. DuoNeb 0.5 mg-3 mg(2.5 mg base)/3 mL Inhl nebu 3 mL 4 times per day 9. Norvasc 10 mg Oral tab 1 tab once daily 10. omeprazole 20 mg Oral cpDR 1 cap daily PRN 11. oxygen 3.5-4lnc 12. prednisone 10 mg Oral tab 1 tab once daily 13. tizanidine oral 0.5 cap as needed 14. Zyrtec 10 mg Oral tab 1 tab once daily - PMHx: CAD; COPD; Diverticulosis; Hypercholesterolemia; Hypertension; TIA; - PSHx: Cardiac stents; - The history from nurses notes was reviewed: and elements of the historical information I have obtained differs from that reported to nursing. - Social history: Smoking status: Patient states was never smoker of tobacco. No barriers to communication noted, The patient speaks fluent Surinamese, Speaks appropriately for age. - Family history: Not pertinent. - : The pt / caregiver states he / she is not on anticoagulants. Home medication list is obtained from the facility [facility]. - Hospitalizations: : The patient was recently seen at [facility]. - Exposure Risk Screening:: None identified. - Immunization history:: All immunizations up-to-date. - Social history:: the patient is a former smoker, the patient does not drink alcohol. ROS: 00:26 All systems are negative except as listed. pc Exam: 00:26 General Appearance: no acute distress, alert. pc 00:26 Extremities: mild pedal edema, non-pitting bilaterally. There are a few purpuric areas of both LEs, of differing sizes, without pain or warmth. Vital Signs: 12/14 22:57 BP 155 / 58; Pulse 93; Resp 18 S; Temp 97.5(O); Pulse Ox 92% on R/A; Weight 49.9 kg / gr2 110.01 lbs (R); Height 5 ft. 0 in. (152.40 cm) (R); Pain 0/10; 12/15 00:53 BP 142 / 56; Pulse 70; Resp 18; Temp 97.8(O); Pulse Ox 98% on R/A; Pain 0/10; tm5 12/14 22:57 Body Mass Index 21.48 (49.90 kg, 152.40 cm) gr2 MDM: 12/14 23:17 [facility] Payment Agreement was scanned into [employer] and attached to record. zo 12/15 00:03 CBC Ordered. EDMS 00:22 Financial registration complete. pm4 00:28 Differential Diagnosis: lower extremities edema with purpura due to steroid usage r/o pc low platelet count. Plan: lab, reassurance. 00:43 CBC Reviewed. pc 00:44 Data reviewed: old medical records, vital signs, nurses notes, lab test results. Test pc interpretation: LAB - all labs as ordered have been reviewed, interpreted and considered in the overall management of the clinical presentation;. The patient has been re-examined and re-evaluated. The clinical presentation did not require any ED treatment or interventions. Disposition: The historical points, examination findings, and any diagnostic results supporting the provided diagnosis, were discussed with the patient or legal guardian. The need for outpatient follow up with the provider listed on their discharge instructions was discussed. They were encouraged to return to [facility], or the nearest ED, if symptoms worsen/persist, or for any other questions/concerns. Signatures: Dispatcher [employer] Real Serrano MD MD pc Olin, Zoeann zo Nunez, NikkoleRN RN nn1 Sheela Parker RN RN tm5 Bishop Lindsay, Reg Reg pm4 The chart was reviewed and I authenticate all verbal orders and agree with the evaluation and treatment provided.Corrections: (The following items were deleted from the chart) 00:44 00:28 Differential Diagnosis: lower extremities edema with ecchymosis due to steroid pc usage r/o low platelet count pc 00:44 00:26 Extremities: mild pedal edema, non-pitting bilaterally. There are a few pc ecchymotic areas of both LEs, of differing sizes, without pain or warmth. pc Attachments: 12/14 23:17 [facility] Payment Agreement zo Chart Complete MTDD
== END 2016-12-15 00:54 | disposition home or self-care (01) ==
LOC: M ED 22:55
DX: D69.2 Other nonthrombocytopenic purpura (principal); I10 Essential (primary) hypertension; I25.10 Atherosclerotic heart disease of native coronary artery without angina pectoris; J44.9 Chronic obstructive pulmonary disease, unspecified; E78.00 Pure hypercholesterolemia, unspecified; K57.90 Diverticulosis of intestine, part unspecified, without perforation or abscess without bleeding; Z86.73 Personal history of transient ischemic attack (TIA), and cerebral infarction without residual deficits; Z79.899 Other long term (current) drug therapy; Z79.82 Long term (current) use of aspirin; Z95.5 Presence of coronary angioplasty implant and graft; Z88.1 Allergy status to other antibiotic agents; Z88.4 Allergy status to anesthetic agent; Z87.891 Personal history of nicotine dependence

== ENCOUNTER → 2017-01-13 | Outpatient (CLI) | payer MEDICARE, OTHER ==
[2017-01-13 20:02] LABS: ALBUMIN 3.7 GM/DL (3.2-5.2); ANION GAP 10 MEQ/L (8-16); BLOOD UREA NITROGEN 31 MG/DL (7-18); CALCIUM LEVEL 9.1 MG/DL (8.8-10.2); CARBON DIOXIDE LEVEL 28 MEQ/L (21-32); CHLORIDE LEVEL 105 MEQ/L (98-107); CREATININE FOR GFR 0.83 MG/DL (0.55-1.02); GLOMERULAR FILTRATION RATE > 60.0 (>32); GLUCOSE, FASTING 101 MG/DL (83-110); PHOSPHORUS LEVEL 3.5 MG/DL (2.5-4.9); POTASSIUM SERUM 3.9 MEQ/L (3.5-5.1); SODIUM LEVEL 143 MEQ/L (136-145)
== END ==
LOC: M WUC 14:15
PROVIDERS: ATTEND Internal Medicine Cardiovascular Disease
DX: I50.32 Chronic diastolic (congestive) heart failure (principal); R06.02 Shortness of breath; J98.11 Atelectasis

== ENCOUNTER → 2017-01-13 | Outpatient (CLI) | payer MEDICARE, OTHER ==
--- NOTE | 2017-01-13 14:49 | REP ---
CHEST, TWO VIEWS: HISTORY: Shortness of breath. COMPARISON: 11/25/2016 Increased density is present in the lower lobes, consistent with bibasilar atelectasis or infiltrates. The heart is normal in size. The pulmonary vasculature is normal in appearance. Degenerative change is present in the thoracic spine. IMPRESSION: Bibasilar atelectasis or infiltrates. Signed by Jaden Bright MD 01/13/2017 04:14 P
== END ==
LOC: M WUC 14:10
PROVIDERS: ATTEND Family Medicine
DX: R06.02 Shortness of breath (principal); J98.11 Atelectasis

== ENCOUNTER 2017-03-05 08:05 | Inpatient (IN) | payer MEDICARE, OTHER ==
[2017-03-05] MEDS ORDERED: methylPREDNISolone INJ 125 MG/2 ML VIAL (J2930) IV ONE (08:15)
[2017-03-05] MEDS: IPRATROPIUM 0.5MG/ALBUTEROL 2.5MG INH SOL UD 3ML (DUONEB)(J7620) NEB PRN ×2 (08:31→09:19)
[2017-03-05] MEDS ORDERED: BISO5TAB5 (08:35)
[2017-03-05] MEDS ORDERED: SPIR25TA2 PO (08:35)
[2017-03-05] MEDS ORDERED: FURO40TA2 (08:35)
[2017-03-05] MEDS ORDERED: CLOP75TA2 PO (08:35)
[2017-03-05 08:46] LABS: ABG BASE EXCESS 0.9 (-2.0-2.0); ABG HCO3 24.5 MEQ/L (22.0-26.0); ABG PARTIAL PRESSURE CO2 35.1 mmHg (35.0-45.0); ABG PARTIAL PRESSURE O2 77.9 mmHg (75.0-100.0); ABG STANDARD HCO3 25.3 MEQ/L (22.0-26.0); ABG TOTAL CO2 25.5 MEQ/L (23.0-31.0); ABG pH (ARTERIAL) 7.461 UNITS (7.350-7.450)
--- NOTE | 2017-03-05 09:03 | REP ---
Chest one-view HISTORY: Cough Comparison: 01/13/2017 Increased density is present in the left lower lobe consistent with atelectasis or infiltrate. Linear density is present in the right lower lobe consistent with atelectasis or scar. The heart is normal in size. The pulmonary vasculature is normal in appearance. Impression: 1. Left lower lobe atelectasis or infiltrate. 2. Right lower lobe atelectasis or scar. Signed by Jaden Bright MD 03/05/2017 08:55 A
[2017-03-05 09:08] LABS: BASO % 0.3 % (0.0-1.0); EOS # 0.3 K/mm3 (0.0-0.50); EOS % 2.2 % (0.0-3.0); LARGE UNSTAINED CELL # 0.2 K/mm3 (0.0-0.4); LARGE UNSTAINED CELL % 1.1 % (0.0-4.0); LYMPH # 0.9 K/mm3 (1.5-4.5); LYMPH % 7.1 % (24.0-44.0); MEAN CORPUSCULAR HEMOGLOBIN 30.6 pg (27.0-33.0); MEAN CORPUSCULAR HGB CONC 33.8 g/dl (32.0-36.5); MEAN CORPUSCULAR VOLUME 90.5 fl (80.0-96.0); MONO # 0.7 K/mm3 (0.0-0.8); MONO % 4.9 % (0.0-5.0); NEUTROPHILS # 11.3 K/mm3 (1.8-7.7); NEUTROPHILS % 84.4 % (36.0-66.0); PLATELET COUNT, AUTOMATED 362 k/mm3 (150-450); RED CELL DISTRIBUTION WIDTH 15.4 % (11.5-14.5); WHITE BLOOD COUNT 13.3 K/mm3 (4.0-10.0)
[2017-03-05 09:52] LABS: ANION GAP 6 MEQ/L (8-16); BLOOD UREA NITROGEN 24 MG/DL (7-18); CALCIUM LEVEL 9.3 MG/DL (8.8-10.2); CARBON DIOXIDE LEVEL 31 MEQ/L (21-32); CHLORIDE LEVEL 102 MEQ/L (98-107); GLOMERULAR FILTRATION RATE > 60.0 (>32); GLUCOSE, FASTING 147 MG/DL (83-110); POTASSIUM SERUM 4.2 MEQ/L (3.5-5.1); SODIUM LEVEL 139 MEQ/L (136-145)
[2017-03-05 09:53] LABS: MYOGLOBIN 120 NG/ML (13-71)
[2017-03-05] MEDS ORDERED: AZITHROMYCIN INJ 500 MG, VIAL MATE ADAPTER 1 EACH in D5W 250 ML IV ONE (11:00)
[2017-03-05] MEDS ORDERED: TIZA2TA PO (11:00)
[2017-03-05] MEDS ORDERED: NITR4TASL SL (11:02)
[2017-03-05] MEDS ORDERED: ATOR40TA PO (11:02)
[2017-03-05] MEDS ORDERED: BUDE0.5S6 INH (11:02)
[2017-03-05] MEDS ORDERED: ASPI81TA13 PO (11:05)
[2017-03-05] MEDS ORDERED: cefTRIAXone SOD 2 GM in D5W MINI-BAG PLUS 50 ML IV ONE (11:30)
[2017-03-05] MEDS ORDERED: SPIRONOLACTONE 12.5MG PER 1/2 TABLET PO PRN (12:00)
[2017-03-05] MEDS ORDERED: ACETAMINOPHEN TAB 650MG DOSE (2X325MG) PO PRN (12:00)
[2017-03-05] MEDS ORDERED: PERCOCET 5MG/325MG TAB PO PRN (12:00)
[2017-03-05] MEDS ORDERED: ALPRAZolam 0.25 MG TAB PO PRN (12:00)
[2017-03-05] MEDS ORDERED: ONDANSETRON 4 MG TAB (S0181) PO PRN (12:00)
[2017-03-05] MEDS ORDERED: ONDANSETRON 4MG/2ML VIAL (J2405) IV PRN (12:00)
[2017-03-05 12:45] VITALS: BP 145/64
[2017-03-05] MEDS: ATORVASTATIN 20 MG TAB PO SCH (13:42)
[2017-03-05] MEDS: ASPIRIN 81 MG ENTERIC TAB PO SCH (13:42)
[2017-03-05] MEDS: LISINOPRIL 10 MG TAB PO SCH (13:43)
[2017-03-05] MEDS: CLOPIDOGREL 75 MG TAB PO SCH (13:43)
[2017-03-05] MEDS: FUROSEMIDE 40 MG TAB PO SCH (13:43)
[2017-03-05] MEDS: IPRATROPIUM 0.5MG/ALBUTEROL 2.5MG INH SOL UD 3ML (DUONEB)(J7620) NEB SCH ×2 (14:24→18:44)
--- NOTE | 2017-03-05 16:11 | HPEPDOC ---
Medical History and Physical Date of Admission Mar 05, 2017 at 11:50 History and Physical HISTORY AND PHYSICAL Date of admission: 03/05/2017 PCP: Dr. Anson Lomeli Chief complaint: I couldn't breathe HPI: 81-year-old female with COPD, CAD status post stent, pulmonary hypertension , history of TIA, history of malaria, history of dysentery who presented to the emergency department with increasing shortness of breath. She states that approximately 3 days ago, she started to feel congested, so she took some doxycycline and prednisone that she had at home. Her shortness of breath has continued to get worse, and last night she couldn't even sleep. She said that she tried using the oxygen she has at home and even trended up to 4 L, but this didn't help. She states that she also tried her nebulizers, but this also didn' t help. She denies any sick contacts, but she thinks that this may be related to the weather change, as weather changes frequently seem to cause her to have difficulty with her respiratory status. Past medical history: COPD, CAD status post stent, pulmonary hypertension, history of TIA, history of malaria, history of dysentery Past surgical history: Right kidney procedure that involved "opening a duct" as per the report of the patient, aortic surgery more than 40-50 years ago, appendectomy Family history: Parkinson's, CVAs Social history: The patient is a former smoker who quit approximately 30 years ago. She denies any drug or alcohol use. Throughout her lifetime, she has spent extensive time traveling internationally, including extensive time in [place]. She currently lives with her son and his family, as well as a dog and cat. She reports that she has previously been exposed to agent orange Allergies: Levaquin, lidocaine, procaine Review of systems: General: Positive for chills, negative for fevers Eyes: Negative for vision changes and ocular discharge ENT: Negative For sore throat and nose bleed Cardiovascular: Negative for chest pain, positive for palpitations Respiratory: Positive for cough and shortness of breath GI: Negative for nausea, vomiting, diarrhea Musculoskeletal: Negative for neck and back pain Skin: Negative for rash Neuro: Negative for headache, dizziness, numbness, tingling Psych: Negative for depression and suicidal ideation Endocrine: Negative for polyuria : Negative for dysuria Heme:. Negative for Bleeding Home meds: See below Physical exam: Vital signs: Vital Signs Date Time Temp Pulse Resp B/P (MAP) Pulse Ox O2 Delivery O2 Flow Rate FiO2 03/05/17 14:28 100 03/05/17 13:43 145/64 03/05/17 12:45 99.6 20 97 Nasal Cannula 2.0 Gen.: awake, alert, no acute distress Eyes: Extraocular movements intact, normal sclera ENT: Moist mucous membranes Cardiovascular: RRR, no murmurs rubs or gallops Lungs: clear to auscultation bilaterally with only scarce scattered mild rhonchi , no wheezing Abdomen: Soft, NT/ND, normal BS Musculoskeletal: normal range of motion Extremities: No peripheral edema Neuro: alert and oriented 3, normal speech, no focal deficits Psych: Normal mood with congruent affect Labs and radiology: See below WBC 13.4 blood cultures pending lactate, troponin, BNP, and flu screen are all unremarkable Chest x-ray: Shows concern for a left lower lobe infiltrate, as well as a right lower lobe scar CT chest: Final read is pending Assessment and plan: 81-year-old female with COPD, CAD status post stent, pulmonary hypertension, history of TIA, history of malaria, history of dysentery who presented to the emergency department with increasing shortness of breath. She is admitted with community-acquired pneumonia. 1. Community acquired pneumonia: Patient is currently afebrile, with a mild leukocytosis. We will continue her on Rocephin and a Zithromax, as well as follow-up blood cultures and collect a sputum culture. Although she was initially requiring more than 4 L in the ED, she is not comfortable in 2 L. We will also check a respiratory virus panel. 2. COPD: The patient is not currently wheezing, but she did just receive a DuoNeb's prior to my examination. We will continue her on scheduled and as needed DuoNeb's. 3. CAD status post stent: Continue home aspirin, beta yaw, statin, Plavix. 4. History of TIA: Continue home aspirin and statin and Plavix. DVT prophylaxis: Lovenox Dispo: admit as an inpatient to the service of Dr. Maylin Mari CODE STATUS: Full code Vital Signs Vital Signs Date Time Temp Pulse Resp B/P (MAP) Pulse Ox O2 Delivery O2 Flow Rate FiO2 03/05/17 14:28 100 03/05/17 13:43 145/64 03/05/17 12:45 99.6 20 97 Nasal Cannula 2.0 Laboratory Data Labs 24H Laboratory Tests 2 03/05/17 08:30: Blood Gas Bicarbonate Standard 25.3, Arterial Blood pH 7.461H, Arterial Blood Partial Pressure CO2 35.1, Arterial Blood Partial Pressure O2 77.9, Arterial Blood Total CO2 25.5, Arterial Blood HCO3 24.5, Arterial Blood Base Excess 0.9, Arterial Blood Oxygen Saturation 95.7 03/05/17 08:57: White Blood Count 13.3H, Red Blood Count 3.52L, Hemoglobin 10.8L, Hematocrit 31.9L, Mean Corpuscular Volume 90.5, Mean Corpuscular Hemoglobin 30.6, Mean Corpuscular Hemoglobin Concent 33.8, Red Cell Distribution Width 15.4H, Platelet Count 362, Neutrophils (%) (Auto) 84.4H, Lymphocytes (%) (Auto) 7.1L, Monocytes (%) (Auto) 4.9, Eosinophils (%) (Auto) 2.2, Basophils (%) (Auto) 0.3, Neutrophils # (Auto) 11.3H, Lymphocytes # (Auto) 0.9L, Monocytes # (Auto) 0.7, Eosinophils # (Auto) 0.3, Basophils # (Auto) 0.0, Large Unclassified Cells % 1.1 , Large Unclassified Cells # 0.2, Lactic Acid Level 1.1, B-Type Natriuretic Peptide 42.5 03/05/17 09:23: Anion Gap 6L, Glomerular Filtration Rate > 60.0, Blood Urea Nitrogen 24H, Creatinine 0.80, Sodium Level 139, Potassium Level 4.2, Chloride Level 102, Carbon Dioxide Level 31, Calcium Level 9.3, Total Creatine Kinase 256H, Creatine Kinase MB 4.0H, Creatine Kinase MB Relative Index 1.56, Myoglobin 120H , Troponin I < 0.02 CBC/BMP Laboratory Tests 03/05/17 08:57 Red Blood Count 3.52 L, Mean Corpuscular Volume 90.5, Mean Corpuscular Hemoglobin 30.6, Mean Corpuscular Hemoglobin Concent 33.8, Red Cell Distribution Width 15.4 H, Neutrophils (%) (Auto) 84.4 H, Lymphocytes (%) (Auto ) 7.1 L, Monocytes (%) (Auto) 4.9, Eosinophils (%) (Auto) 2.2, Basophils (%) ( Auto) 0.3, Neutrophils # (Auto) 11.3 H, Lymphocytes # (Auto) 0.9 L, Monocytes # (Auto) 0.7, Eosinophils # (Auto) 0.3, Basophils # (Auto) 0.0 03/05/17 09:23 Calcium Level 9.3 Microbiology Microbiology 03/05/17 Blood Culture, Received Pending 03/05/17 Blood Culture, Received Pending 03/05/17 Influenza Virus Type A Antigen - Final, Complete 03/05/17 Influenza Virus Type B Antigen - Final, Complete Home Medications Scheduled (Calcium/Vitamin D 500-200 mg-Unit) 1 Tab Tab, 1 TAB PO DAILY Aspirin (Aspirin EC) 81 Mg Tab, 81 MG PO DAILY Atorvastatin Calcium (Atorvastatin Calcium) 40 Mg Tab, 40 MG PO DAILY Bisoprolol Fumarate (Bisoprolol Fumarate) 5 Mg Tab, 2.5 MG DAILY Clopidogrel Bisulfate (Clopidogrel) 75 Mg Tab, 75 MG PO DAILY Furosemide (Furosemide) 40 Mg Tab, 40 MG DAILY Lisinopril (Lisinopril) 10 Mg Tab, 10 MG PO DAILY Metoprolol Tartrate (Metoprolol Tartrate) 12.5 Mg Halftab, 12.5 MG PO BID Scheduled PRN Albuterol Sulfate (Ventolin Hfa) 200 Puff/8 Gm Aers, 2 PUFF INH Q4H PRN for SHORTNESS OF BREATH Albuterol Sulfate (Albuterol Sulfate) 2.5 Mg/0.5 Ml Neb, 2.5 MG INH Q4H PRN for SHORTNESS OF BREATH Alprazolam (Alprazolam) 0.25 Mg Tab, 0.125 MG PO TID PRN for ANXIETY Budesonide (Budesonide) Unknown Strength Neb, Unknown Dose INH BID PRN for SHORTNESS OF BREATH Ipratropium [place] (Atrovent Hfa) 200 Puff/12.9 Gm Aers, 2 PUFF INH Q4H PRN for SHORTNESS OF BREATH Ipratropium [place] (Ipratropium [place]) 0.5 Mg/2.5 Ml Soln, 0.5 MG INH Q4H PRN for SHORTNESS OF BREATH Nitroglycerin (Nitrostat) 0.4 Mg Subl, 0.4 MG SL Q5MP PRN for CHEST PAIN Spironolactone (Spironolactone) 25 Mg Tab, 12.5 MG PO DAILY PRN for FLUID RETENTION Tizanidine HCl (Tizanidine HCl) 2 Mg Tab, 1 MG PO TID PRN for MUSCLE SPASMS Allergies Coded Allergies: Levofloxacin (Unverified Allergy, Intermediate, rash, 12/19/16) Lidocaine (Verified Allergy, Mild, RASH, 02/11/13) Procaine (Verified Allergy, Mild, RASH, 02/11/13) MAYLIN MARI Mar 05, 2017 16:11
[2017-03-05] MEDS: ENOXAPARIN 40 MG/0.4 ML SYRINGE (J1650) SC SCH ×2 (20:36→20:38)
[2017-03-05] MEDS: METOPROLOL TART 12.5 MG PER 1/2 TAB PO SCH (20:36)
[2017-03-05] MEDS: guaiFENesin SYRUP 200 MG/10 ML UDC PO PRN (21:54)
[2017-03-05 22:00] VITALS: BP 113/55
[2017-03-06] MEDS: IPRATROPIUM 0.5MG/ALBUTEROL 2.5MG INH SOL UD 3ML (DUONEB)(J7620) NEB SCH ×4 (00:35→19:26)
--- NOTE | 2017-03-06 05:37 | REP ---
CT CHEST WITHOUT CONTRAST: HISTORY: Infiltrate. COMPARISON: CT 11/22/2016. Patchy density is present in the left lower lobe consistent with atelectasis or infiltrate that is increased compared to the previous CT examination. Patchy density is present in the right lower lobe consistent with an infiltrate that is decreased compared to the previous study. There is no pleural effusion. Small lymph nodes less than 1 cm in size are present in the mediastinum. The heart is normal in size. Atherosclerotic calcification is present in the thoracic aorta. Degenerative change is present in the thoracic spine. IMPRESSION: 1. Left lower lobe infiltrate increased compared to the previous study. An underlying mass cannot be excluded. 2. Right lower lobe infiltrate, decreased compared to the previous study. Signed by Jaden Bright MD 03/06/2017 08:15 A
[2017-03-06 06:00] VITALS: BP 128/59
--- NOTE | 2017-03-06 06:14 | ECGEPIP ---
Stationary ECG Study [facility] - ED Test Date: 2017-03-05 Pat Name: MARLENE BANG Department: Room: - Gender: F Mri Supervisor: juan : [id number] Requested By: Real Chu Order Number: [id number] Reading MD: Real Hu Measurements Intervals [place] Rate: 98 P: 78 [place]: 142 QRS: 35 QRSD: 128 T: 6 QT: 362 QTc: 463 Interpretive Statements SINUS RHYTHM WITH MARKED SINUS ARRHYTHMIA RIGHT BUNDLE BRANCH BLOCK SIMILAR TO 11/22/16 Electronically Signed On 03-06-2017 6:13:50 EDT by Real Hu
[2017-03-06 06:53] LABS: BASO % 0.2 % (0.0-1.0); EOS % 0.4 % (0.0-3.0); LARGE UNSTAINED CELL # 0.2 K/mm3 (0.0-0.4); LARGE UNSTAINED CELL % 1.4 % (0.0-4.0); LYMPH # 0.8 K/mm3 (1.5-4.5); LYMPH % 7.2 % (24.0-44.0); MEAN CORPUSCULAR HEMOGLOBIN 29.7 pg (27.0-33.0); MEAN CORPUSCULAR HGB CONC 32.7 g/dl (32.0-36.5); MEAN CORPUSCULAR VOLUME 90.8 fl (80.0-96.0); MONO # 0.8 K/mm3 (0.0-0.8); MONO % 7.1 % (0.0-5.0); NEUTROPHILS # 9.2 K/mm3 (1.8-7.7); NEUTROPHILS % 83.7 % (36.0-66.0); PLATELET COUNT, AUTOMATED 295 k/mm3 (150-450); RED CELL DISTRIBUTION WIDTH 15.6 % (11.5-14.5)
[2017-03-06 07:09] LABS: ANION GAP 8 MEQ/L (8-16); BLOOD UREA NITROGEN 27 MG/DL (7-18); CALCIUM LEVEL 8.2 MG/DL (8.8-10.2); CARBON DIOXIDE LEVEL 26 MEQ/L (21-32); CHLORIDE LEVEL 106 MEQ/L (98-107); CREATININE FOR GFR 0.88 MG/DL (0.55-1.02); GLOMERULAR FILTRATION RATE > 60.0 (>32); GLUCOSE, FASTING 104 MG/DL (83-110); MAGNESIUM LEVEL 2.2 MG/DL (1.8-2.4); SODIUM LEVEL 140 MEQ/L (136-145)
[2017-03-06] MEDS: ASPIRIN 81 MG ENTERIC TAB PO SCH (08:51)
[2017-03-06] MEDS: CLOPIDOGREL 75 MG TAB PO SCH (08:52)
[2017-03-06] MEDS: FUROSEMIDE 40 MG TAB PO SCH (08:52)
[2017-03-06] MEDS: ATORVASTATIN 20 MG TAB PO SCH (08:52)
[2017-03-06] MEDS: LISINOPRIL 10 MG TAB PO SCH (08:53)
[2017-03-06] MEDS: METOPROLOL TART 12.5 MG PER 1/2 TAB PO SCH ×2 (08:56→20:43)
[2017-03-06] MEDS: IPRATROPIUM 0.5MG/ALBUTEROL 2.5MG INH SOL UD 3ML (DUONEB)(J7620) NEB PRN (11:11)
--- NOTE | 2017-03-06 12:17 | IPNPDOC ---
Date Seen The patient was seen on 03/06/17. Progress Note Hospitalist Progress Note Subjective: Patient is coughing a lot, but states that she otherwise is feeling better. Objective: Physical Exam: Vitals: Vital Sign - Last 24 Hours 03/05/17 03/05/17 03/05/17 03/05/17 12:20 12:45 12:50 13:43 Temp 98.7 99.6 Pulse 99 99 Resp 18 20 B/P (MAP) 145/64 (91) 145/64 124/60 (81) Pulse Ox 99 97 O2 Delivery Nasal Cannula Nasal Cannula Nasal Cannula O2 Flow Rate 2.0 2.0 2.0 03/05/17 03/05/17 03/05/17 03/05/17 14:28 18:46 22:00 22:00 Temp 99.0 Pulse 100 100 98 Resp 20 B/P (MAP) 113/55 (74) Pulse Ox 93 O2 Delivery Nasal Cannula Nasal Cannula O2 Flow Rate 2.0 2.0 03/06/17 03/06/17 03/06/17 03/06/17 00:30 06:00 08:53 09:00 Temp 97.5 Pulse 84 Resp 19 B/P (MAP) 128/59 (82) 129/60 Pulse Ox 96 O2 Delivery Nasal Cannula Nasal Cannula Nasal Cannula O2 Flow Rate 2.0 2.0 2.0 General: AWake, alert, no acute distress HEENT: Normocephalic, atraumatic, extraocular movements intact CV: Regular rate and rhythm Lungs: Breath sounds are diminished throughout, but she does not have any distinct rhonchi or wheeze Abd: Soft, nontender, nondistended Extremities: No edema Neuro: Alert and oriented 3, normal speech Psych: Normal mood and affect Labs and Imaging: Laboratory Tests 03/06/17 06:34 Red Blood Count 3.24 L, Mean Corpuscular Volume 90.8, Mean Corpuscular Hemoglobin 29.7, Mean Corpuscular Hemoglobin Concent 32.7, Red Cell Distribution Width 15.6 H, Neutrophils (%) (Auto) 83.7 H, Lymphocytes (%) (Auto ) 7.2 L, Monocytes (%) (Auto) 7.1 H, Eosinophils (%) (Auto) 0.4, Basophils (%) ( Auto) 0.2, Neutrophils # (Auto) 9.2 H, Lymphocytes # (Auto) 0.8 L, Monocytes # ( Auto) 0.8, Eosinophils # (Auto) 0.0, Basophils # (Auto) 0.0, Calcium Level 8.2 L Assessment and Plan: 81-year-old female with COPD, CAD status post stent, pulmonary hypertension, history of TIA, history of malaria, history of dysentery who presented to the emergency department with increasing shortness of breath. She is admitted with community-acquired pneumonia. 1. Community acquired pneumonia: Patient is currently afebrile, with a mild but improving leukocytosis. We will continue her on Rocephin and a Zithromax, as well as follow-up blood cultures and a sputum culture. Although she was initially requiring more than 4 L in the ED, she is now comfortable in 2 L. RVP is negative. Will add tessalon perles for cough. 2. COPD: The patient is not currently wheezing; continue her on scheduled and as needed DuoNeb's. 3. CAD status post stent: Continue home aspirin, beta yaw, statin, Plavix. 4. History of TIA: Continue home aspirin and statin and Plavix. DVT prophylaxis: Lovenox Dispo: pending O2 requirements VS, I&O, [facility] Vital Signs/I&O Vital Signs Date Time Temp Pulse Resp B/P (MAP) Pulse Ox O2 Delivery O2 Flow Rate FiO2 03/06/17 09:00 Nasal Cannula 2.0 03/06/17 08:53 129/60 03/06/17 06:00 97.5 84 19 96 I&O- Last 24 Hours up to 6 AM 03/06/17 06:00 Intake Total 650 ml Output Total 1150 ml Balance -500 ml Laboratory Data 24H LABS Laboratory Tests 2 03/06/17 06:34: White Blood Count 11.0H, Red Blood Count 3.24L, Hemoglobin 9.6L, Hematocrit 29.4L, Mean Corpuscular Volume 90.8, Mean Corpuscular Hemoglobin 29.7, Mean Corpuscular Hemoglobin Concent 32.7, Red Cell Distribution Width 15.6H, Platelet Count 295, Neutrophils (%) (Auto) 83.7H, Lymphocytes (%) (Auto) 7.2L, Monocytes (%) (Auto) 7.1H, Eosinophils (%) (Auto) 0.4, Basophils (%) (Auto) 0.2 , Neutrophils # (Auto) 9.2H, Lymphocytes # (Auto) 0.8L, Monocytes # (Auto) 0.8, Eosinophils # (Auto) 0.0, Basophils # (Auto) 0.0, Large Unclassified Cells % 1.4 , Large Unclassified Cells # 0.2, Anion Gap 8, Glomerular Filtration Rate > 60.0 , Blood Urea Nitrogen 27H, Creatinine 0.88, Sodium Level 140, Potassium Level 4.0, Chloride Level 106, Carbon Dioxide Level 26, Calcium Level 8.2L, Magnesium Level 2.2 CBC/BMP Laboratory Tests 03/06/17 06:34 Red Blood Count 3.24 L, Mean Corpuscular Volume 90.8, Mean Corpuscular Hemoglobin 29.7, Mean Corpuscular Hemoglobin Concent 32.7, Red Cell Distribution Width 15.6 H, Neutrophils (%) (Auto) 83.7 H, Lymphocytes (%) (Auto ) 7.2 L, Monocytes (%) (Auto) 7.1 H, Eosinophils (%) (Auto) 0.4, Basophils (%) ( Auto) 0.2, Neutrophils # (Auto) 9.2 H, Lymphocytes # (Auto) 0.8 L, Monocytes # ( Auto) 0.8, Eosinophils # (Auto) 0.0, Basophils # (Auto) 0.0, Calcium Level 8.2 L Microbiology Microbiology 03/05/17 Blood Culture - Preliminary, Resulted No growth after 24 hours . All specim... 03/05/17 Blood Culture - Preliminary, Resulted No growth after 24 hours . All specim... 03/05/17 Respiratory Virus Panel (PCR) (SHAHEED) - Final, Complete 03/05/17 Influenza Virus Type A Antigen - Final, Complete 03/05/17 Influenza Virus Type B Antigen - Final, Complete CHRIS CONNER March 06, 2017 12:17
[2017-03-06] MEDS: cefTRIAXone SOD 1 GM in D5W MINI-BAG PLUS 50 ML IV SCH (12:58)
[2017-03-06] MEDS: AZITHROMYCIN INJ 500 MG, VIAL MATE ADAPTER 1 EACH in D5W 250 ML IV SCH (13:45)
[2017-03-06] MEDS: BENZONATATE 100 MG CAP PO PRN (13:45)
[2017-03-06 14:00] VITALS: BP 106/50
[2017-03-06] MEDS: ENOXAPARIN 40 MG/0.4 ML SYRINGE (J1650) SC SCH ×2 (20:43→21:00)
[2017-03-06] MEDS: guaiFENesin SYRUP 200 MG/10 ML UDC PO PRN (20:43)
[2017-03-06 22:00] VITALS: BP 108/52
[2017-03-07] MEDS: IPRATROPIUM 0.5MG/ALBUTEROL 2.5MG INH SOL UD 3ML (DUONEB)(J7620) NEB SCH ×5 (01:20→23:51)
[2017-03-07] MEDS: IPRATROPIUM 0.5MG/ALBUTEROL 2.5MG INH SOL UD 3ML (DUONEB)(J7620) NEB PRN ×2 (01:57→11:52)
[2017-03-07] MEDS: BENZONATATE 100 MG CAP PO PRN ×2 (05:12→18:28)
[2017-03-07 06:00] VITALS: BP 110/55
[2017-03-07 06:50] LABS: BASO # 0.1 K/mm3 (0.0-0.2); BASO % 0.7 % (0.0-1.0); EOS # 0.6 K/mm3 (0.0-0.50); EOS % 6.2 % (0.0-3.0); LARGE UNSTAINED CELL # 0.1 K/mm3 (0.0-0.4); LARGE UNSTAINED CELL % 1.3 % (0.0-4.0); LYMPH # 1.2 K/mm3 (1.5-4.5); LYMPH % 12.8 % (24.0-44.0); MEAN CORPUSCULAR HGB CONC 31.9 g/dl (32.0-36.5); MEAN CORPUSCULAR VOLUME 93.8 fl (80.0-96.0); MONO # 0.6 K/mm3 (0.0-0.8); MONO % 6.6 % (0.0-5.0); NEUTROPHILS # 6.7 K/mm3 (1.8-7.7); NEUTROPHILS % 72.4 % (36.0-66.0); PLATELET COUNT, AUTOMATED 325 k/mm3 (150-450); RED CELL DISTRIBUTION WIDTH 15.6 % (11.5-14.5); WHITE BLOOD COUNT 9.2 K/mm3 (4.0-10.0)
[2017-03-07 07:07] LABS: CALCIUM LEVEL 8.1 MG/DL (8.8-10.2); CREATININE FOR GFR 1.08 MG/DL (0.55-1.02); GLOMERULAR FILTRATION RATE 51.6 (>32); MAGNESIUM LEVEL 2.2 MG/DL (1.8-2.4); POTASSIUM SERUM 4.2 MEQ/L (3.5-5.1)
[2017-03-07] MEDS: CLOPIDOGREL 75 MG TAB PO SCH (07:25)
[2017-03-07] MEDS: METOPROLOL TART 12.5 MG PER 1/2 TAB PO SCH ×2 (07:25→20:00)
[2017-03-07] MEDS: ATORVASTATIN 20 MG TAB PO SCH (07:25)
[2017-03-07] MEDS: LISINOPRIL 10 MG TAB PO SCH (07:26)
[2017-03-07] MEDS: FUROSEMIDE 40 MG TAB PO SCH (07:26)
[2017-03-07] MEDS: ASPIRIN 81 MG ENTERIC TAB PO SCH (07:26)
--- NOTE | 2017-03-07 12:50 | IPNPDOC ---
Subjective Date Seen The patient was seen on 03/07/17. Subjective Chief Complaint/HPI The patient is a 81-year-old female admitted with a reason for visit of Community Acquired Pneumonia. General: Reports: Fatigue, Malaise, Denies: ROS Unobtainable, Chills, Night Sweats, Normal Appetite, Other Symptoms Constitutional: Denies: Chills, Fever, Malaise, Night Sweats, Weakness, Fatigue , Weight Loss, Lethargy, Other Eyes: Denies: Pain, Vision change, Conjunctivae inflammation, Eyelid inflammation, Redness, Other ENT: Denies: Head Aches, Ear Pain, Dysphagia, Sinus Congestion, Post Nasal Drip , Sore Throat, Epistaxis, Other Symptoms Skin: Denies: Rash, Lesions, Jaundice, Bruising, Itching, Dry, Breakdown, Nail Changes, Other Pulmonary: Reports: Dyspnea, Cough, Denies: Pleuritic Chest Pain, Other Symptoms Cardiovascular: Denies: Chest Pain, Palpitations, Orthopnea, Paroxysmal Noc. Dyspnea, Edema, Lt Headedness, Other Symptoms Gastrointestinal: Denies: Nausea, Vomiting, Abdominal Pain, Diarrhea, Constipation, Melena, Hematochezia, Other Symptoms Genitourinary: Denies: Dysuria, Frequency, Incontinence, Hematuria, Retention, Other Symptoms Objective Physical Examination General Exam: Positive: Alert, Cooperative, No Acute Distress, Other (elderly, frail) Eye Exam: Positive: PERRLA, Conjunctiva & lids normal, EOMI, Negative: Sclera icteric ENT Exam: Positive: Atraumatic, Mucous membr. moist/pink Neck Exam: Positive: Supple Chest Exam: Positive: Clear to auscultation, Diminished Heart Exam: Positive: Rate Normal, Regular Rhythm Abdomen Exam: Positive: Normal bowel sounds, Soft, Negative: Tenderness Psych Exam: Positive: Oriented x 3 Assessment /Plan Problems (1) Pneumonia Status: Acute Discussed With: Patient Problem Specific Plan: Monitor Clinically, Repeat Labs Problem Text: Continue IV ceftriaxone/azithromycin. Sputum cultures pending. (2) COPD (chronic obstructive pulmonary disease) Status: Chronic Discussed With: Patient Problem Specific Plan: Monitor Clinically Problem Text: Continue antibiotics, respiratory regimen, incentive spirometry, acapella, mucolytics. (3) CAD (coronary artery disease) Status: Chronic Discussed With: Patient Problem Specific Plan: Monitor Clinically Problem Text: s/p CABG continue asa, bb, statin, plavix appears also to have likely CHF - ACEI, lasix, aldactone (4) TIA (transient ischemic attack) Status: Chronic Discussed With: Patient Problem Specific Plan: Monitor Clinically Problem Text: continue asa, plavix, statin Plan/VTE VTE Prophylaxis Ordered?: Yes (lovenox) Plan Diet: Continue Current Activity: Continue Current Respiratory: Wean Oxygen Diagnostics: Repeat Labs in AM Anticipated Discharge: Home, Home With Services Disposition Continue IV antibiotics. Pending sputum cultures. VS, I&O, 24H, Fishbone Vital Signs/I&O Vital Signs Date Time Temp Pulse Resp B/P (MAP) Pulse Ox O2 Delivery O2 Flow Rate FiO2 03/07/17 09:00 Nasal Cannula 2.0 03/07/17 06:00 98.4 87 20 110/55 (73) 91 I&O- Last 24 Hours up to 6 AM 03/07/17 05:59 Intake Total 1985 ml Output Total 1200 ml Balance 785 ml Laboratory Data 24H LABS Laboratory Tests 2 03/07/17 06:34: White Blood Count 9.2, Red Blood Count 3.47L, Hemoglobin 10.4L, Hematocrit 32.5L , Mean Corpuscular Volume 93.8, Mean Corpuscular Hemoglobin 30.0, Mean Corpuscular Hemoglobin Concent 31.9L, Red Cell Distribution Width 15.6H, Platelet Count 325, Neutrophils (%) (Auto) 72.4H, Lymphocytes (%) (Auto) 12.8L, Monocytes (%) (Auto) 6.6H, Eosinophils (%) (Auto) 6.2H, Basophils (%) (Auto) 0.7 , Neutrophils # (Auto) 6.7, Lymphocytes # (Auto) 1.2L, Monocytes # (Auto) 0.6, Eosinophils # (Auto) 0.6H, Basophils # (Auto) 0.1, Large Unclassified Cells % 1.3, Large Unclassified Cells # 0.1, Anion Gap 6L, Glomerular Filtration Rate 51.6, Blood Urea Nitrogen 30H, Creatinine 1.08H, Sodium Level 140, Potassium Level 4.2, Chloride Level 106, Carbon Dioxide Level 28, Calcium Level 8.1L, Magnesium Level 2.2 CBC/BMP Laboratory Tests 03/07/17 06:34 Red Blood Count 3.47 L, Mean Corpuscular Volume 93.8, Mean Corpuscular Hemoglobin 30.0, Mean Corpuscular Hemoglobin Concent 31.9 L, Red Cell Distribution Width 15.6 H, Neutrophils (%) (Auto) 72.4 H, Lymphocytes (%) (Auto ) 12.8 L, Monocytes (%) (Auto) 6.6 H, Eosinophils (%) (Auto) 6.2 H, Basophils (% ) (Auto) 0.7, Neutrophils # (Auto) 6.7, Lymphocytes # (Auto) 1.2 L, Monocytes # (Auto) 0.6, Eosinophils # (Auto) 0.6 H, Basophils # (Auto) 0.1, Calcium Level 8.1 L Microbiology Microbiology 03/05/17 Blood Culture - Preliminary, Resulted No Growth after 48 hours. All Specime... 03/05/17 Blood Culture - Preliminary, Resulted No Growth after 48 hours. All Specime... 03/05/17 Respiratory Virus Panel (PCR) (SHAHEED) - Final, Complete 03/05/17 Influenza Virus Type A Antigen - Final, Complete 03/05/17 Influenza Virus Type B Antigen - Final, Complete ENRIQUETA HSIEH MD March 07, 2017 12:50
[2017-03-07] MEDS: cefTRIAXone SOD 1 GM in D5W MINI-BAG PLUS 50 ML IV SCH (12:57)
[2017-03-07] MEDS: AZITHROMYCIN INJ 500 MG, VIAL MATE ADAPTER 1 EACH in D5W 250 ML IV SCH (13:48)
[2017-03-07 14:00] VITALS: BP 122/59
[2017-03-07] MEDS: ENOXAPARIN 40 MG/0.4 ML SYRINGE (J1650) SC SCH (19:34)
[2017-03-07 22:00] VITALS: BP 110/55
[2017-03-08] MEDS: IPRATROPIUM 0.5MG/ALBUTEROL 2.5MG INH SOL UD 3ML (DUONEB)(J7620) NEB PRN ×2 (03:36→15:39)
[2017-03-08 06:00] VITALS: BP 138/61
[2017-03-08 06:40] LABS: BASO % 0.8 % (0.0-1.0); EOS # 0.6 K/mm3 (0.0-0.50); EOS % 8.8 % (0.0-3.0); LARGE UNSTAINED CELL # 0.1 K/mm3 (0.0-0.4); LARGE UNSTAINED CELL % 1.8 % (0.0-4.0); LYMPH # 1.1 K/mm3 (1.5-4.5); LYMPH % 16.3 % (24.0-44.0); MEAN CORPUSCULAR HEMOGLOBIN 29.5 pg (27.0-33.0); MEAN CORPUSCULAR HGB CONC 32.2 g/dl (32.0-36.5); MEAN CORPUSCULAR VOLUME 91.6 fl (80.0-96.0); MONO # 0.5 K/mm3 (0.0-0.8); MONO % 8.3 % (0.0-5.0); NEUTROPHILS # 4.1 K/mm3 (1.8-7.7); PLATELET COUNT, AUTOMATED 299 k/mm3 (150-450); RED CELL DISTRIBUTION WIDTH 15.4 % (11.5-14.5); WHITE BLOOD COUNT 6.4 K/mm3 (4.0-10.0)
[2017-03-08 06:57] LABS: CREATININE FOR GFR 1.09 MG/DL (0.55-1.02); MAGNESIUM LEVEL 1.9 MG/DL (1.8-2.4); POTASSIUM SERUM 4.1 MEQ/L (3.5-5.1)
[2017-03-08] MEDS: IPRATROPIUM 0.5MG/ALBUTEROL 2.5MG INH SOL UD 3ML (DUONEB)(J7620) NEB SCH ×4 (07:09→23:13)
--- NOTE | 2017-03-08 08:51 | IPNPDOC ---
Subjective Date Seen The patient was seen on 03/08/17. Subjective Chief Complaint/HPI The patient is a 81-year-old female admitted with a reason for visit of Community Acquired Pneumonia. General: Reports: Malaise, Denies: ROS Unobtainable, Chills, Night Sweats, Fatigue, Normal Appetite, Other Symptoms Constitutional: Reports: Weakness, Denies: Chills, Fever, Malaise, Night Sweats, Fatigue, Weight Loss, Lethargy , Other Eyes: Denies: Pain, Vision change, Conjunctivae inflammation, Eyelid inflammation, Redness, Other ENT: Denies: Head Aches, Ear Pain, Dysphagia, Sinus Congestion, Post Nasal Drip , Sore Throat, Epistaxis, Other Symptoms Skin: Denies: Rash, Lesions, Jaundice, Bruising, Itching, Dry, Breakdown, Nail Changes, Other Pulmonary: Reports: Dyspnea, Cough, Denies: Pleuritic Chest Pain, Other Symptoms Cardiovascular: Denies: Chest Pain, Palpitations, Orthopnea, Paroxysmal Noc. Dyspnea, Edema, Lt Headedness, Other Symptoms Gastrointestinal: Denies: Nausea, Vomiting, Abdominal Pain, Diarrhea, Constipation, Melena, Hematochezia, Other Symptoms Genitourinary: Denies: Dysuria, Frequency, Incontinence, Hematuria, Retention, Other Symptoms Objective Physical Examination General Exam: Positive: Alert, Cooperative, No Acute Distress, Other (elderly, frail) Eye Exam: Positive: PERRLA, Conjunctiva & lids normal, EOMI, Negative: Sclera icteric ENT Exam: Positive: Atraumatic, Mucous membr. moist/pink Neck Exam: Positive: Supple Chest Exam: Positive: Clear to auscultation, Diminished Heart Exam: Positive: Rate Normal, Regular Rhythm Abdomen Exam: Positive: Normal bowel sounds, Soft, Negative: Tenderness Psych Exam: Positive: Oriented x 3 Assessment /Plan Problems (1) Pneumonia Status: Acute Discussed With: Patient Problem Specific Plan: Monitor Clinically, Repeat Labs Problem Text: Continue IV ceftriaxone/azithromycin. Sputum cultures pending. (2) COPD (chronic obstructive pulmonary disease) Status: Chronic Discussed With: Patient Problem Specific Plan: Monitor Clinically Problem Text: Continue antibiotics, respiratory regimen, incentive spirometry, acapella, mucolytics. (3) CAD (coronary artery disease) Status: Chronic Discussed With: Patient Problem Specific Plan: Monitor Clinically Problem Text: s/p CABG continue asa, bb, statin, plavix appears also to have likely CHF - ACEI, lasix, aldactone (4) TIA (transient ischemic attack) Status: Chronic Discussed With: Patient Problem Specific Plan: Monitor Clinically Problem Text: continue asa, plavix, statin Plan/VTE VTE Prophylaxis Ordered?: Yes (lovenox) Plan Diet: Continue Current Activity: Continue Current Respiratory: Wean Oxygen Diagnostics: Repeat Labs in AM Anticipated Discharge: Home, Home With Services Still complains of general malaise, fatigue and shortness of breath. Unable thus far to provide sputum for analysis. Continue IV antibiotics. Obtain CXR for interim eval. Check BNP. VS, I&O, 24H, Fishbone Vital Signs/I&O Vital Signs Date Time Temp Pulse Resp B/P (MAP) Pulse Ox O2 Delivery O2 Flow Rate FiO2 03/08/17 06:00 98.7 92 19 138/61 (86) 99 Nasal Cannula 3.0 I&O- Last 24 Hours up to 6 AM 03/08/17 06:00 Intake Total 1125 ml Output Total 350 ml Balance 775 ml Laboratory Data 24H LABS Laboratory Tests 2 03/08/17 06:14: White Blood Count 6.4, Red Blood Count 3.30L, Hemoglobin 9.7L, Hematocrit 30.3L , Mean Corpuscular Volume 91.6, Mean Corpuscular Hemoglobin 29.5, Mean Corpuscular Hemoglobin Concent 32.2, Red Cell Distribution Width 15.4H, Platelet Count 299, Neutrophils (%) (Auto) 64.0, Lymphocytes (%) (Auto) 16.3L, Monocytes (%) (Auto) 8.3H, Eosinophils (%) (Auto) 8.8H, Basophils (%) (Auto) 0.8 , Neutrophils # (Auto) 4.1, Lymphocytes # (Auto) 1.1L, Monocytes # (Auto) 0.5, Eosinophils # (Auto) 0.6H, Basophils # (Auto) 0.0, Large Unclassified Cells % 1.8, Large Unclassified Cells # 0.1, Anion Gap 5L, Glomerular Filtration Rate 51.0, Blood Urea Nitrogen 32H, Creatinine 1.09H, Sodium Level 137, Potassium Level 4.1, Chloride Level 103, Carbon Dioxide Level 29, Calcium Level 8.0L, Magnesium Level 1.9 CBC/BMP Laboratory Tests 03/08/17 06:14 Red Blood Count 3.30 L, Mean Corpuscular Volume 91.6, Mean Corpuscular Hemoglobin 29.5, Mean Corpuscular Hemoglobin Concent 32.2, Red Cell Distribution Width 15.4 H, Neutrophils (%) (Auto) 64.0, Lymphocytes (%) (Auto) 16.3 L, Monocytes (%) (Auto) 8.3 H, Eosinophils (%) (Auto) 8.8 H, Basophils (%) (Auto) 0.8, Neutrophils # (Auto) 4.1, Lymphocytes # (Auto) 1.1 L, Monocytes # ( Auto) 0.5, Eosinophils # (Auto) 0.6 H, Basophils # (Auto) 0.0, Calcium Level 8.0 L Microbiology Microbiology 03/05/17 Blood Culture - Preliminary, Resulted No Growth after 48 hours. All Specime... 03/05/17 Blood Culture - Preliminary, Resulted No Growth after 48 hours. All Specime... 03/05/17 Respiratory Virus Panel (PCR) (SHAHEED) - Final, Complete 03/05/17 Influenza Virus Type A Antigen - Final, Complete 03/05/17 Influenza Virus Type B Antigen - Final, Complete ENRIQUETA HSIEH MD March 08, 2017 08:51
[2017-03-08] MEDS: FUROSEMIDE 40 MG TAB PO SCH (09:04)
[2017-03-08] MEDS: ASPIRIN 81 MG ENTERIC TAB PO SCH (09:05)
[2017-03-08] MEDS: ATORVASTATIN 20 MG TAB PO SCH (09:05)
[2017-03-08] MEDS: CLOPIDOGREL 75 MG TAB PO SCH (09:06)
[2017-03-08] MEDS: METOPROLOL TART 12.5 MG PER 1/2 TAB PO SCH ×2 (09:06→20:45)
[2017-03-08] MEDS: LISINOPRIL 10 MG TAB PO SCH (09:06)
--- NOTE | 2017-03-08 09:58 | REP ---
CHEST, TWO VIEWS: HISTORY: Shortness of breath. COMPARISON: 03/05/2017. Increased density is present in the lower lobes consistent with infiltrates, unchanged on the left and decreased on the right. The heart is normal in size. The pulmonary vasculature is normal in appearance. Degenerative change is present in the shoulders and spine. The bony structure is osteopenic. IMPRESSION: Bibasilar infiltrates unchanged on the left and decreased on the right compared to the previous study. Signed by Jaden Bright MD 03/08/2017 10:03 A
[2017-03-08] MEDS: cefTRIAXone SOD 1 GM in D5W MINI-BAG PLUS 50 ML IV SCH (12:26)
[2017-03-08] MEDS: AZITHROMYCIN INJ 500 MG, VIAL MATE ADAPTER 1 EACH in D5W 250 ML IV SCH (13:23)
[2017-03-08 14:00] VITALS: BP 100/50
[2017-03-08 18:00] VITALS: BP 141/63
[2017-03-08] MEDS: ENOXAPARIN 40 MG/0.4 ML SYRINGE (J1650) SC SCH (20:31)
[2017-03-08] MEDS: BENZONATATE 100 MG CAP PO PRN (20:45)
[2017-03-08 22:00] VITALS: BP 119/78
[2017-03-09] MEDS: IPRATROPIUM 0.5MG/ALBUTEROL 2.5MG INH SOL UD 3ML (DUONEB)(J7620) NEB PRN ×2 (03:01→09:38)
[2017-03-09 06:00] VITALS: BP 129/63
[2017-03-09 06:47] LABS: ANION GAP 7 MEQ/L (8-16); BLOOD UREA NITROGEN 25 MG/DL (7-18); CALCIUM LEVEL 8.2 MG/DL (8.8-10.2); CARBON DIOXIDE LEVEL 30 MEQ/L (21-32); CHLORIDE LEVEL 103 MEQ/L (98-107); GLOMERULAR FILTRATION RATE > 60.0 (>32); GLUCOSE, FASTING 111 MG/DL (83-110); POTASSIUM SERUM 3.9 MEQ/L (3.5-5.1); SODIUM LEVEL 140 MEQ/L (136-145)
[2017-03-09 06:52] LABS: BASO % 0.6 % (0.0-1.0); EOS # 0.6 K/mm3 (0.0-0.50); EOS % 8.6 % (0.0-3.0); LARGE UNSTAINED CELL # 0.1 K/mm3 (0.0-0.4); LARGE UNSTAINED CELL % 2.2 % (0.0-4.0); LYMPH # 1.1 K/mm3 (1.5-4.5); LYMPH % 14.3 % (24.0-44.0); MEAN CORPUSCULAR HEMOGLOBIN 29.3 pg (27.0-33.0); MEAN CORPUSCULAR HGB CONC 32.1 g/dl (32.0-36.5); MEAN CORPUSCULAR VOLUME 91.1 fl (80.0-96.0); MONO # 0.6 K/mm3 (0.0-0.8); MONO % 8.4 % (0.0-5.0); NEUTROPHILS # 4.3 K/mm3 (1.8-7.7); PLATELET COUNT, AUTOMATED 285 k/mm3 (150-450); RED CELL DISTRIBUTION WIDTH 15.3 % (11.5-14.5); WHITE BLOOD COUNT 6.6 K/mm3 (4.0-10.0)
[2017-03-09] MEDS: IPRATROPIUM 0.5MG/ALBUTEROL 2.5MG INH SOL UD 3ML (DUONEB)(J7620) NEB SCH (07:07)
[2017-03-09] MEDS ORDERED: GUAI10EL PO (08:54)
[2017-03-09] MEDS ORDERED: AZIT500T2 PO (08:54)
[2017-03-09] MEDS ORDERED: CEFD300CAP FT (08:54)
[2017-03-09] MEDS ORDERED: AZITHROMYCIN 250 MG TAB PO SCH (09:00)
[2017-03-09 09:34] VITALS: BP 130/62
[2017-03-09] MEDS: ATORVASTATIN 20 MG TAB PO SCH (09:34)
[2017-03-09] MEDS: METOPROLOL TART 12.5 MG PER 1/2 TAB PO SCH (09:34)
[2017-03-09] MEDS: ASPIRIN 81 MG ENTERIC TAB PO SCH (09:34)
[2017-03-09] MEDS: FUROSEMIDE 40 MG TAB PO SCH (09:35)
[2017-03-09] MEDS: LISINOPRIL 10 MG TAB PO SCH (09:35)
[2017-03-09] MEDS: CLOPIDOGREL 75 MG TAB PO SCH (09:51)
--- NOTE | 2017-03-09 13:34 | DS.PDOC ---
Discharge Summary General Date of Admission Mar 05, 2017 at 11:50 Date of Discharge 03/09/17 Discharge Summary PROCEDURES PERFORMED DURING STAY: [None]. DISCHARGE DIAGNOSES: 1. Community acquired pneumonia 1. COPD exacerbation. 2. CAD s/p stent 3. pulmonary hypertension 4. TIA 5. History of malaria 6. History of dysentery 7. Chronic hypoxic respiratory failure COMPLICATIONS/CHIEF COMPLAINT: Community Acquired Pneumonia. HOSPITAL COURSE: 81 yo female for 3 day history of shortness of breath and congestion. Failed outpatient therapy with doxycycline and prednisone that she had at home. Increased her supplemental oxygen at home to 4L without any improvement. Admitted for community acquired pneumonia, complicated with COPD exacerbation. Improved with IV antibiotics and respiratory regimen. Eventually returned to her baseline with regards to her respiratory status. She does have chronic hypoxic respiratory failure. Discharged home with oral antibiotics and outpatient follow up with PCP. DISCHARGE MEDICATIONS: Please see below. ALLERGIES: Please see below. PHYSICAL EXAMINATION ON DISCHARGE: VITAL SIGNS: Please see below. GENERAL: NAD, elderly, frail HEENT: NC/AT, EOMI, PERRL NECK: supple CARDIOVASCULAR EXAMINATION: +S1S2, RRR RESPIRATORY EXAMINATION: CTA B/L ABDOMINAL EXAMINATION: soft, NT, +BS EXTREMITIES: no edema PSYCHIATRIC EXAMINATION: AAOx3 LABORATORY DATA: Please see below. ACTIVITY: [As tolerated]. DIET: Heart healthy DISPOSITION: 01 Home, Self-Care. DISCHARGE INSTRUCTIONS: 1. Follow up PCP as scheduled. 2. Medications as directed. DISCHARGE CONDITION: [Stable]. TIME SPENT ON DISCHARGE: Greater than 30 minutes. Vital Signs/I&Os Vital Signs Date Time Temp Pulse Resp B/P (MAP) Pulse Ox O2 Delivery O2 Flow Rate FiO2 03/09/17 09:34 97 130/62 03/09/17 09:10 Nasal Cannula 2.0 03/09/17 06:00 98.4 16 96 I&O- Last 24 Hours up to 6 AM 03/09/17 05:59 Intake Total 1380 ml Output Total 1425 ml Balance -45 ml Laboratory Data Labs 24H Laboratory Tests 2 03/09/17 05:53: White Blood Count 6.6, Red Blood Count 3.32L, Hemoglobin 9.7L, Hematocrit 30.2L , Mean Corpuscular Volume 91.1, Mean Corpuscular Hemoglobin 29.3, Mean Corpuscular Hemoglobin Concent 32.1, Red Cell Distribution Width 15.3H, Platelet Count 285, Neutrophils (%) (Auto) 66.0, Lymphocytes (%) (Auto) 14.3L, Monocytes (%) (Auto) 8.4H, Eosinophils (%) (Auto) 8.6H, Basophils (%) (Auto) 0.6 , Neutrophils # (Auto) 4.3, Lymphocytes # (Auto) 1.1L, Monocytes # (Auto) 0.6, Eosinophils # (Auto) 0.6H, Basophils # (Auto) 0.0, Large Unclassified Cells % 2.2, Large Unclassified Cells # 0.1, Anion Gap 7L, Glomerular Filtration Rate > 60.0, Blood Urea Nitrogen 25H, Creatinine 0.80, Sodium Level 140, Potassium Level 3.9, Chloride Level 103, Carbon Dioxide Level 30, Calcium Level 8.2L, Magnesium Level 2.0 CBC/BMP Laboratory Tests 03/09/17 05:53 Red Blood Count 3.32 L, Mean Corpuscular Volume 91.1, Mean Corpuscular Hemoglobin 29.3, Mean Corpuscular Hemoglobin Concent 32.1, Red Cell Distribution Width 15.3 H, Neutrophils (%) (Auto) 66.0, Lymphocytes (%) (Auto) 14.3 L, Monocytes (%) (Auto) 8.4 H, Eosinophils (%) (Auto) 8.6 H, Basophils (%) (Auto) 0.6, Neutrophils # (Auto) 4.3, Lymphocytes # (Auto) 1.1 L, Monocytes # ( Auto) 0.6, Eosinophils # (Auto) 0.6 H, Basophils # (Auto) 0.0, Calcium Level 8.2 L Microbiology Microbiology 03/05/17 Blood Culture - Preliminary, Resulted No Growth after 72 hours. All specime... 03/05/17 Blood Culture - Preliminary, Resulted No Growth after 72 hours. All specime... 03/05/17 Respiratory Virus Panel (PCR) (SHAHEED) - Final, Complete 03/05/17 Influenza Virus Type A Antigen - Final, Complete 03/05/17 Influenza Virus Type B Antigen - Final, Complete Discharge Medications Scheduled (Calcium/Vitamin D 500-200 mg-Unit) 1 Tab Tab, 1 TAB PO DAILY, (Reported) Aspirin (Aspirin EC) 81 Mg Tab, 81 MG PO DAILY, (Reported) Atorvastatin Calcium (Atorvastatin Calcium) 40 Mg Tab, 40 MG PO DAILY, (Reported ) Azithromycin (Azithromycin) 500 Mg Tab, 500 MG PO DAILY Bisoprolol Fumarate (Bisoprolol Fumarate) 5 Mg Tab, 2.5 MG DAILY, (Reported) Cefdinir (Cefdinir) 300 Mg Cap, 300 MG FT BID Clopidogrel Bisulfate (Clopidogrel) 75 Mg Tab, 75 MG PO DAILY, (Reported) Furosemide (Furosemide) 40 Mg Tab, 40 MG DAILY, (Reported) Lisinopril (Lisinopril) 10 Mg Tab, 10 MG PO DAILY, (Reported) Metoprolol Tartrate (Metoprolol Tartrate) 12.5 Mg Halftab, 12.5 MG PO BID, ( Reported) Scheduled PRN Albuterol Sulfate (Ventolin Hfa) 200 Puff/8 Gm Aers, 2 PUFF INH Q4H PRN for SHORTNESS OF BREATH, (Reported) Albuterol Sulfate (Albuterol Sulfate) 2.5 Mg/0.5 Ml Neb, 2.5 MG INH Q4H PRN for SHORTNESS OF BREATH, (Reported) Alprazolam (Alprazolam) 0.25 Mg Tab, 0.125 MG PO TID PRN for ANXIETY, (Reported) Budesonide (Budesonide) Unknown Strength Neb, Unknown Dose INH BID PRN for SHORTNESS OF BREATH, (Reported) Guaifenesin (Guaifenesin) 10 Ml Syrp, 5 ML PO Q6HP PRN for COUGH Ipratropium Elsah (Atrovent Hfa) 200 Puff/12.9 Gm Aers, 2 PUFF INH Q4H PRN for SHORTNESS OF BREATH, (Reported) Ipratropium Elsah (Ipratropium Elsah) 0.5 Mg/2.5 Ml Soln, 0.5 MG INH Q4H PRN for SHORTNESS OF BREATH, (Reported) Nitroglycerin (Nitrostat) 0.4 Mg Subl, 0.4 MG SL Q5MP PRN for CHEST PAIN, ( Reported) Spironolactone (Spironolactone) 25 Mg Tab, 12.5 MG PO DAILY PRN for FLUID RETENTION, (Reported) Tizanidine HCl (Tizanidine HCl) 2 Mg Tab, 1 MG PO TID PRN for MUSCLE SPASMS, ( Reported) Allergies Coded Allergies: Levofloxacin (Unverified Allergy, Intermediate, rash, 12/19/16) Lidocaine (Verified Allergy, Mild, RASH, 02/11/13) Procaine (Verified Allergy, Mild, RASH, 02/11/13) ENRIQUETA HSIEH MD March 09, 2017 13:34
== END 2017-03-09 12:30 | disposition home or self-care (01) | DRG 190 ==
LOC: EDBD 08:05 → M ED 09:15 → M ED INP 11:50 → M MSPAV 12:36
PROVIDERS: ADMIT Hospitalist; ATTEND Internal Medicine
DX: J44.0 Chronic obstructive pulmonary disease with (acute) lower respiratory infection (principal); J18.9 Pneumonia, unspecified organism; J96.11 Chronic respiratory failure with hypoxia; I25.10 Atherosclerotic heart disease of native coronary artery without angina pectoris; I27.2 Other secondary pulmonary hypertension; I50.9 Heart failure, unspecified; Z86.73 Personal history of transient ischemic attack (TIA), and cerebral infarction without residual deficits; Z95.5 Presence of coronary angioplasty implant and graft; Z79.82 Long term (current) use of aspirin; Z86.13 Personal history of malaria; Z86.19 Personal history of other infectious and parasitic diseases; Z88.1 Allergy status to other antibiotic agents; Z88.8 Allergy status to other drugs, medicaments and biological substances; Z88.6 Allergy status to analgesic agent; Z79.899 Other long term (current) drug therapy; Z79.02 Long term (current) use of antithrombotics/antiplatelets; Z99.81 Dependence on supplemental oxygen

== ENCOUNTER 2017-03-15 11:53 | Inpatient (IN) | payer MEDICARE, OTHER ==
[~2017-03-15] VITALS: Ht 152.4 cm; Wt 52.2 kg
[~2017-03-15 11:53] MED LIST changes: +ASPI81TA13 PO; +ATOR40TA PO; +AZIT500T2 PO; +BISO5TAB5; +BUDE0.5S6 INH; +CEFD300CAP FT; +FURO40TA2; +GUAI10EL PO; +SPIR25TA2 PO; +TIZA2TA PO
[2017-03-15] MEDS ORDERED: ALTA10CA3 PO (12:16)
[2017-03-15] MEDS ORDERED: MULTCAP11 PO (12:16)
[2017-03-15] MEDS ORDERED: ESCI10TA2 PO (12:16)
[2017-03-15] MEDS ORDERED: MAGN400C2 PO (12:16)
[2017-03-15] MEDS ORDERED: CHEL50TA PO (12:16)
[2017-03-15] MEDS ORDERED: AMLO10TA2 PO (12:16)
[2017-03-15] MEDS ORDERED: FOLI400T PO (12:16)
[2017-03-15] MEDS ORDERED: AMBI5TAB PO (12:16)
[2017-03-15] MEDS ORDERED: VITATAB11 PO (12:16)
[2017-03-15] MEDS ORDERED: PANCREATIN PO (12:16)
[2017-03-15] MEDS ORDERED: GABA-279 PO (12:16)
[2017-03-15] MEDS ORDERED: VARE1TA PO (12:16)
[2017-03-15] MEDS ORDERED: DOXY100T PO (12:21)
[2017-03-15 12:39] LABS: BASO # 0.1 K/mm3 (0.0-0.2); BASO % 0.9 % (0.0-1.0); EOS # 0.5 K/mm3 (0.0-0.50); EOS % 6.4 % (0.0-3.0); LARGE UNSTAINED CELL # 0.2 K/mm3 (0.0-0.4); LARGE UNSTAINED CELL % 1.9 % (0.0-4.0); LYMPH # 1.5 K/mm3 (1.5-4.5); LYMPH % 16.4 % (24.0-44.0); MEAN CORPUSCULAR HEMOGLOBIN 29.6 pg (27.0-33.0); MEAN CORPUSCULAR HGB CONC 32.6 g/dl (32.0-36.5); MEAN CORPUSCULAR VOLUME 90.7 fl (80.0-96.0); MONO # 0.5 K/mm3 (0.0-0.8); MONO % 5.5 % (0.0-5.0); NEUTROPHILS # 5.7 K/mm3 (1.8-7.7); PLATELET COUNT, AUTOMATED 313 k/mm3 (150-450); RED CELL DISTRIBUTION WIDTH 15.5 % (11.5-14.5); WHITE BLOOD COUNT 8.2 K/mm3 (4.0-10.0)
[2017-03-15 12:47] LABS: ABG BASE EXCESS 0.7 (-2.0-2.0); ABG HCO3 24.7 MEQ/L (22.0-26.0); ABG PARTIAL PRESSURE CO2 37.2 mmHg (35.0-45.0); ABG PARTIAL PRESSURE O2 89.1 mmHg (75.0-100.0); ABG STANDARD HCO3 25.1 MEQ/L (22.0-26.0); ABG TOTAL CO2 25.8 MEQ/L (23.0-31.0)
[2017-03-15 12:52] LABS: ANION GAP 7 MEQ/L (8-16); BLOOD UREA NITROGEN 16 MG/DL (7-18); CALCIUM LEVEL 9.2 MG/DL (8.8-10.2); CARBON DIOXIDE LEVEL 28 MEQ/L (21-32); CHLORIDE LEVEL 105 MEQ/L (98-107); CREATININE FOR GFR 0.67 MG/DL (0.55-1.02); GLOMERULAR FILTRATION RATE > 60.0 (>32); GLUCOSE, FASTING 98 MG/DL (83-110); POTASSIUM SERUM 3.7 MEQ/L (3.5-5.1); SODIUM LEVEL 140 MEQ/L (136-145)
--- NOTE | 2017-03-15 13:39 | REP ---
Chest x-ray: Two views. History: Dyspnea and cough. Comparison chest x-ray March 08, 2017. Findings: The lungs are somewhat hyperinflated. There is a zone of linear density just above the right hemidiaphragm in the right lower lobe consistent with plate-like atelectasis. Granulomatous calcifications are seen in both bases. The patient is status post prior median sternotomy. There is a dextroconvex thoracic scoliotic curve. Osteoarthritic changes are seen in the shoulders bilaterally. No acute infiltrate is seen. Heart is not felt to be enlarged. There is also a small zone of linear plate-like atelectasis in the left base. Impression: Bibasilar plate-like atelectasis. Hyperinflation. Prior sternotomy. No other acute disease. Signed by Chau Paulson MD 03/15/2017 04:33 P
[2017-03-15] MEDS ORDERED: ISOVUE-370 76% 100ML VIAL (Q9967) As Ordered ONE (13:43)
[2017-03-15] MEDS ORDERED: IPRATROPIUM 0.5MG/ALBUTEROL 2.5MG INH SOL UD 3ML (DUONEB)(J7620) NEB ONE ×2 (13:45→14:30)
[2017-03-15] MEDS ORDERED: methylPREDNISolone INJ 125 MG/2 ML VIAL (J2930) IV ONE (13:45)
--- NOTE | 2017-03-15 14:29 | REP ---
CT PULMONARY ANGIOGRAM: WITH IV CONTRAST. HISTORY: Shortness of breath. COMPARISON STUDIES: Comparison CT pulmonary angiogram is from August 06, 2016. CONTRAST DOSE: 75 mL of Isovue-[address] TECHNIQUE: Helical scanning is acquired and overlapping 1.5 mm and contiguous 3 mm axial images are reformatted. In addition, a 3-D work station is deployed to generate thick slab maximum intensity projection images in sagittal and coronal imaging projections. CT PULMONARY ANGIOGRAPHIC FINDINGS: There is good opacification of the pulmonary arterial tree. There is no CT evidence of pulmonary embolism. The thoracic aorta enhances homogeneously and is normal in caliber. No dissection is seen. Vascular calcification is observed. No aneurysm is seen. Fairly extensive vascular calcification is noted. There is emphysematous change in the upper lobes bilaterally. There is discoid atelectasis in the left lower lobe, and some linear fibrosis is seen in the right lower lobe. The previous study showed infiltrates which are resolved. The previous study also showed a hiatal hernia, which is not present at the time of today's examination. No airway lesion is seen. No hilar or mediastinal mass or adenopathy is observed. No pleural effusion is noted or pericardial effusion. No adrenal lesion is seen on either side. There are osteoarthritic changes fairly advanced in the glenohumeral joints bilaterally. No bony destructive lesion is seen. Prior sternotomy wires are noted. Study is otherwise unremarkable. IMPRESSION: No CT evidence of pulmonary embolism. Linear fibrosis both bases. Emphysematous changes and extensive vascular calcification. No acute abnormality. Signed by Chau Paulson MD 03/15/2017 04:34 P
[2017-03-15 15:49] VITALS: O2SAT 88
[2017-03-15] MEDS ORDERED: PLAV75TA38 PO (16:41)
[2017-03-15] MEDS ORDERED: LISI10TA4 PO (16:41)
[2017-03-15] MEDS ORDERED: ALBU17IN INH (16:41)
[2017-03-15] MEDS ORDERED: CALCTAB68 PO (16:41)
[2017-03-15] MEDS ORDERED: SPIR25TA2 PO (16:41)
[2017-03-15] MEDS ORDERED: ALPR0.25 PO (16:41)
[2017-03-15] MEDS ORDERED: ATOR40TA PO (16:41)
[2017-03-15] MEDS ORDERED: METO-346 PO (16:41)
[2017-03-15] MEDS ORDERED: ALBU83IN INH (16:41)
[2017-03-15] MEDS ORDERED: ASPI81TA7 PO (16:41)
[2017-03-15] MEDS ORDERED: NITR4TASL SL (16:41)
[2017-03-15] MEDS ORDERED: FURO40TA2 PO (16:41)
[2017-03-15] MEDS ORDERED: ATRO0.063 INH (16:43)
[2017-03-15] MEDS ORDERED: PATIENT COMMENT (16:43)
[2017-03-15] MEDS ORDERED: ACETAMINOPHEN TAB 650MG DOSE (2X325MG) PO PRN (16:45)
[2017-03-15] MEDS ORDERED: FUROSEMIDE 40 MG/4 ML VIAL (J1940) IV ONE (16:45)
[2017-03-15 18:25] VITALS: BP 138/59
[2017-03-15] MEDS: cefTRIAXone SOD 2 GM in D5W MINI-BAG PLUS 50 ML IV SCH (20:02)
[2017-03-15] MEDS ORDERED: NITROGLYCERIN 0.4 MG SUBL TABLET SL PRN (20:15)
[2017-03-15] MEDS ORDERED: SPIRONOLACTONE 25 MG TAB PO PRN (20:15)
--- NOTE | 2017-03-15 20:23 | ECGEPIP ---
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
[2017-03-15] MEDS: AZITHROMYCIN INJ 500 MG, VIAL MATE ADAPTER 1 EACH in D5W 250 ML IV SCH (21:11)
[2017-03-15] MEDS: METOPROLOL TART 12.5 MG PER 1/2 TAB PO SCH (21:12)
[2017-03-15] MEDS: predniSONE 20 MG TAB PO SCH (21:12)
[2017-03-15] MEDS: HEPARIN SOD (PORCINE) 5000 UNITS/ML VIAL SC SCH ×2 (21:13→21:24)
[2017-03-15 22:00] VITALS: BP 121/58
[2017-03-15] MEDS: ALPRAZolam 0.25 MG TAB PO PRN (23:04)
--- NOTE | 2017-03-15 23:52 | HPE ---
DATE OF ADMISSION: 03/15/2017 PRIMARY CARE PROVIDER: Dr. Anson Lomeli HISTORY OF PRESENT ILLNESS: This patient is an 81-year-old female with past medical history significant for chronic obstructive pulmonary disease (COPD), coronary artery disease status post stents, pulmonary hypertension, history of transient ischemic attack (TIA), history of malaria, history of dysentery, presented to [facility] on 03/15/2017, for acute shortness of breath. Patient had history of COPD, at baseline patient does not use continuous oxygen, she uses portable nasal oxygen as needed, especially during exertion. Patient has multiple recent hospitalizations, most recent hospitalization was from 03/05/2017 to 03/09/2017, for community-acquired pneumonia. Patient stated on 03/14/2017, evening time, patient had acute shortness of breath that woke her up in the middle of sleep, and shortness of breath persisted in the morning, and patient tried to use portable oxygen and even with 4.5 liters it was not helping her with her breathing. Therefore, patient came to [facility] for further evaluation. Besides difficulty breathing, patient also complained about shivering chills with fever. Patient has not noticed any increased sputum production or increased cough. ALLERGIES: LEVOFLOXACIN, PROCAINE, LIDOCAINE. PAST MEDICAL HISTORY: 1. COPD. 2. Coronary artery disease status post stents. 3. Pulmonary hypertension. 4. History of TIA. 5. History of malaria. 6. History of dysentery. PAST SURGICAL HISTORY: 1. Right kidney removal status post aortic stenosis. 2. Appendectomy. SOCIAL HISTORY: Patient is a previous smoker, quit more than 40 years ago. No alcohol use. No recreational drug use. According to patient, patient does not want to be resuscitated. REVIEW OF SYSTEMS: GENERAL: Positive chills, no fever. HEENT: No vision changes, no auditory changes. CARDIOVASCULAR: No chest pain, no palpitations. RESPIRATORY: Increased shortness of breath but no increased cough or sputum production. GASTROINTESTINAL (GI): No nausea, no vomiting, no diarrhea. MUSCULOSKELETAL: Chronic lower extremity swelling. No muscle pain. No joint pain. NEUROLOGICAL: No numbness or tingling. OBJECTIVE: VITAL SIGNS: Temperature 99, pulse 90, respirations 18, blood pressure 133/78, pulse oximetry 97% with two liters nasal cannula. GENERAL: Fatigued, no sign of acute distress, alert and oriented times three. HEENT: Normocephalic, atraumatic. Extraocular motors grossly intact. CARDIOVASCULAR: Positive systolic murmur, positive S1, S2, regular rate. LUNGS: Positive mild crackles by the bilateral lobe base. Poor respiratory effort. I cannot appreciate any significant wheezes. GASTROINTESTINAL: Abdomen soft, nontender, nondistended. Bowel sounds present. No rebound. No guarding. MUSCULOSKELETAL: 2+ pitting edema bilaterally. No sign of cyanosis. NEUROLOGICAL: Sensation to fine touch grossly intact. Muscle strength 5/5. LABORATORY DATA: WBC 8.2, hemoglobin 10.8, hematocrit 33, platelet count 317. Sodium 140, potassium 3.7, chloride 105, carbon dioxide 28, BUN 16, creatinine 0.67, GFR greater than 60, fasting glucose 98, calcium 9.2, total CK 334, troponin I is less than 0.02, BNP is 140. ASSESSMENT AND PLAN: 1. Acute on chronic respiratory distress secondary to chronic obstructive pulmonary disease (COPD) exacerbation. Patient will be admitted to the medical/surgical floor under inpatient status. Patient received IV Solu-Medrol and multiple breathing treatments. Patient's breathing is improving, however patient does not feel her breathing has returned to baseline, still requires oxygen support. At baseline, patient only uses oxygen intermittently instead of continuously. Patient will be on Rocephin and azithromycin. Followup with respiratory panels. Patient will be on steroids. 2. History of pulmonary hypertension. Patient is on diuretic. 3. History of transient ischemic attack (TIA). Continue home medication. 4. History of coronary artery disease status post stents. Continue home medication. 5. Deep venous thrombosis (DVT) prophylaxis. Patient is on heparin.
[2017-03-15] MEDS: ADVAIR DISKUS 250/50 INH PWD INH SCH (23:55)
[2017-03-15] MEDS: ALBUTEROL SULFATE 2.5 MG/0.5 ML INH NEB SOLN NEB PRN (23:56)
[2017-03-16] MEDS: ALBUTEROL SULFATE 2.5 MG/0.5 ML INH NEB SOLN NEB PRN ×3 (03:32→13:06)
[2017-03-16] MEDS: HEPARIN SOD (PORCINE) 5000 UNITS/ML VIAL SC SCH ×3 (05:48→21:24)
[2017-03-16 06:00] VITALS: BP 141/65
[2017-03-16 06:49] LABS: MEAN CORPUSCULAR HEMOGLOBIN 29.3 pg (27.0-33.0); MEAN CORPUSCULAR VOLUME 91.4 fl (80.0-96.0); RED CELL DISTRIBUTION WIDTH 15.5 % (11.5-14.5); WHITE BLOOD COUNT 8.3 K/mm3 (4.0-10.0)
[2017-03-16] MEDS: ADVAIR DISKUS 250/50 INH PWD INH SCH ×2 (07:10→19:41)
[2017-03-16 07:18] LABS: ANION GAP 7 MEQ/L (8-16); BLOOD UREA NITROGEN 20 MG/DL (7-18); CALCIUM LEVEL 8.8 MG/DL (8.8-10.2); CARBON DIOXIDE LEVEL 29 MEQ/L (21-32); CHLORIDE LEVEL 104 MEQ/L (98-107); CREATININE FOR GFR 0.74 MG/DL (0.55-1.02); GLOMERULAR FILTRATION RATE > 60.0 (>32); GLUCOSE, FASTING 156 MG/DL (83-110); POTASSIUM SERUM 3.6 MEQ/L (3.5-5.1); SODIUM LEVEL 140 MEQ/L (136-145)
[2017-03-16] MEDS: ALPRAZolam 0.25 MG TAB PO PRN (08:28)
[2017-03-16] MEDS: METOPROLOL TART 12.5 MG PER 1/2 TAB PO SCH ×2 (08:28→21:24)
[2017-03-16] MEDS: LISINOPRIL 10 MG TAB PO SCH (08:29)
[2017-03-16] MEDS: ATORVASTATIN 20 MG TAB PO SCH (08:29)
[2017-03-16] MEDS: CLOPIDOGREL 75 MG TAB PO SCH (08:29)
[2017-03-16] MEDS: ASPIRIN 81 MG ENTERIC TAB PO SCH (08:29)
[2017-03-16] MEDS: predniSONE 20 MG TAB PO SCH ×2 (08:29→21:23)
[2017-03-16] MEDS: FUROSEMIDE 40 MG TAB PO SCH (08:29)
[2017-03-16] MEDS: cefTRIAXone SOD 2 GM in D5W MINI-BAG PLUS 50 ML IV SCH ×2 (08:30→20:01)
[2017-03-16 14:00] VITALS: BP 126/59
--- NOTE | 2017-03-16 15:32 | IPNPDOC ---
Subjective Date Seen The patient was seen on 03/16/17. Subjective Chief Complaint/HPI The patient is a 81-year-old female admitted with a reason for visit of Copd W/ Acute Exacerbation. Events since last encounter pt seen and examined, doing well, still on oxygen, pt states she is not normally on o2 at home Pulmonary: Reports: Dyspnea, Cough Gastrointestinal: Denies: Nausea, Vomiting, Abdominal Pain, Diarrhea, Constipation Objective Physical Examination General Exam: Positive: No Acute Distress Eye Exam: Positive: PERRLA, Conjunctiva & lids normal Neck Exam: Positive: Supple, Negative: JVD, thyromegaly Chest Exam: Positive: Diminished Abdomen Exam: Positive: Normal bowel sounds, Soft, Negative: Tenderness, Hepatospenomegaly Extremity Exam: Positive: Normal pulses, Negative: Clubbing, Cyanosis, Edema Assessment /Plan Problems (1) COPD exacerbation Status: Acute Problem Text: * continue duonebs, oxygen prednisone * azithro and ceftriaxone (2) HTN (hypertension) Status: Chronic (3) CAD (coronary artery disease) Status: Chronic Problem Text: * had some chest pain earlier today * will order troponin * and check EKG (4) Pulmonary hypertension Status: Chronic (5) Anxiety Status: Chronic (6) Dyslipidemia Status: Chronic Plan/VTE VTE Prophylaxis Ordered?: Yes VS, I&O, [facility] Vital Signs/I&O Vital Signs Date Time Temp Pulse Resp B/P (MAP) Pulse Ox O2 Delivery O2 Flow Rate FiO2 03/16/17 08:29 129/60 03/16/17 08:28 88 03/16/17 06:00 97.7 17 92 Nasal Cannula 2.0 I&O- Last 24 Hours up to 6 AM 03/16/17 06:00 Intake Total 660 ml Output Total 1400 ml Balance -740 ml Laboratory Data 24H LABS Laboratory Tests 2 03/16/17 06:30: Anion Gap 7L, Glomerular Filtration Rate > 60.0, Blood Urea Nitrogen 20H, Creatinine 0.74, Sodium Level 140, Potassium Level 3.6, Chloride Level 104, Carbon Dioxide Level 29, Calcium Level 8.8 CBC/BMP Laboratory Tests 03/16/17 06:30 Red Blood Count 3.45 L, Mean Corpuscular Volume 91.4, Mean Corpuscular Hemoglobin 29.3, Mean Corpuscular Hemoglobin Concent 32.0, Red Cell Distribution Width 15.5 H, Calcium Level 8.8 Microbiology Microbiology 03/16/17 Respiratory Virus Panel (PCR) ([facility]HEED) - Final, Complete OLENA MEJÍA DO March 16, 2017 15:32
[2017-03-16] MEDS: IPRATROPIUM 0.5MG/ALBUTEROL 2.5MG INH SOL UD 3ML (DUONEB)(J7620) NEB PRN (15:38)
[2017-03-16] MEDS: IPRATROPIUM 0.5MG/ALBUTEROL 2.5MG INH SOL UD 3ML (DUONEB)(J7620) NEB SCH ×2 (19:39→23:20)
--- NOTE | 2017-03-16 20:08 | ECGEPIP ---
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
[2017-03-16 20:15] VITALS: BP 126/60
[2017-03-16] MEDS: AZITHROMYCIN INJ 500 MG, VIAL MATE ADAPTER 1 EACH in D5W 250 ML IV SCH (21:23)
[2017-03-17] MEDS: HEPARIN SOD (PORCINE) 5000 UNITS/ML VIAL SC SCH ×3 (05:15→22:00)
[2017-03-17] MEDS: IPRATROPIUM 0.5MG/ALBUTEROL 2.5MG INH SOL UD 3ML (DUONEB)(J7620) NEB SCH ×3 (05:55→19:52)
[2017-03-17 06:05] VITALS: BP 155/72
[2017-03-17 07:32] LABS: MEAN CORPUSCULAR HEMOGLOBIN 29.6 pg (27.0-33.0); MEAN CORPUSCULAR HGB CONC 32.7 g/dl (32.0-36.5); MEAN CORPUSCULAR VOLUME 90.5 fl (80.0-96.0); RED CELL DISTRIBUTION WIDTH 15.9 % (11.5-14.5); WHITE BLOOD COUNT 13.8 K/mm3 (4.0-10.0)
[2017-03-17 08:07] LABS: ANION GAP 8 MEQ/L (8-16); BLOOD UREA NITROGEN 28 MG/DL (7-18); CALCIUM LEVEL 8.6 MG/DL (8.8-10.2); CARBON DIOXIDE LEVEL 28 MEQ/L (21-32); CHLORIDE LEVEL 105 MEQ/L (98-107); CREATININE FOR GFR 0.86 MG/DL (0.55-1.02); GLOMERULAR FILTRATION RATE > 60.0 (>32); GLUCOSE, FASTING 146 MG/DL (83-110); SODIUM LEVEL 141 MEQ/L (136-145)
[2017-03-17] MEDS ORDERED: AZIT500T2 PO (08:33)
[2017-03-17] MEDS ORDERED: MEDR4PAK PO (08:33)
[2017-03-17] MEDS: ADVAIR DISKUS 250/50 INH PWD INH SCH ×2 (08:51→19:52)
[2017-03-17] MEDS: IPRATROPIUM 0.5MG/ALBUTEROL 2.5MG INH SOL UD 3ML (DUONEB)(J7620) NEB PRN ×3 (08:52→20:35)
[2017-03-17] MEDS: cefTRIAXone SOD 2 GM in D5W MINI-BAG PLUS 50 ML IV SCH (09:13)
[2017-03-17] MEDS: AZITHROMYCIN 250 MG TAB PO SCH (09:19)
[2017-03-17] MEDS: ATORVASTATIN 20 MG TAB PO SCH (09:19)
[2017-03-17] MEDS: METOPROLOL TART 12.5 MG PER 1/2 TAB PO SCH ×2 (09:19→21:14)
[2017-03-17] MEDS: CLOPIDOGREL 75 MG TAB PO SCH (09:20)
[2017-03-17] MEDS: FUROSEMIDE 40 MG TAB PO SCH (09:20)
[2017-03-17] MEDS: ASPIRIN 81 MG ENTERIC TAB PO SCH (09:20)
[2017-03-17] MEDS: LISINOPRIL 10 MG TAB PO SCH (09:20)
[2017-03-17] MEDS: predniSONE 20 MG TAB PO SCH ×2 (09:20→21:13)
[2017-03-17 14:00] VITALS: BP 137/59
[2017-03-17 22:00] VITALS: BP 145/75
[2017-03-18] MEDS: IPRATROPIUM 0.5MG/ALBUTEROL 2.5MG INH SOL UD 3ML (DUONEB)(J7620) NEB SCH ×4 (01:37→20:39)
[2017-03-18] MEDS: HEPARIN SOD (PORCINE) 5000 UNITS/ML VIAL SC SCH ×3 (05:24→21:32)
[2017-03-18 06:00] VITALS: BP 146/69
[2017-03-18 06:07] LABS: MEAN CORPUSCULAR HGB CONC 32.4 g/dl (32.0-36.5); MEAN CORPUSCULAR VOLUME 92.6 fl (80.0-96.0); RED CELL DISTRIBUTION WIDTH 16.1 % (11.5-14.5); WHITE BLOOD COUNT 11.5 K/mm3 (4.0-10.0)
[2017-03-18 06:10] LABS: ANION GAP 10 MEQ/L (8-16); BLOOD UREA NITROGEN 25 MG/DL (7-18); CALCIUM LEVEL 8.2 MG/DL (8.8-10.2); CARBON DIOXIDE LEVEL 29 MEQ/L (21-32); CHLORIDE LEVEL 104 MEQ/L (98-107); CREATININE FOR GFR 0.83 MG/DL (0.55-1.02); GLOMERULAR FILTRATION RATE > 60.0 (>32); GLUCOSE, FASTING 163 MG/DL (83-110); POTASSIUM SERUM 3.9 MEQ/L (3.5-5.1); SODIUM LEVEL 143 MEQ/L (136-145)
[2017-03-18] MEDS: ADVAIR DISKUS 250/50 INH PWD INH SCH ×2 (07:25→20:41)
[2017-03-18] MEDS: ATORVASTATIN 20 MG TAB PO SCH (08:33)
[2017-03-18] MEDS: FUROSEMIDE 40 MG TAB PO SCH (08:33)
[2017-03-18] MEDS: AZITHROMYCIN 250 MG TAB PO SCH (08:33)
[2017-03-18] MEDS: METOPROLOL TART 12.5 MG PER 1/2 TAB PO SCH ×2 (08:34→20:05)
[2017-03-18] MEDS: CLOPIDOGREL 75 MG TAB PO SCH (08:34)
[2017-03-18] MEDS: predniSONE 20 MG TAB PO SCH ×2 (08:34→20:05)
[2017-03-18] MEDS: LISINOPRIL 10 MG TAB PO SCH (08:34)
[2017-03-18] MEDS: ASPIRIN 81 MG ENTERIC TAB PO SCH (08:34)
[2017-03-18 11:15] VITALS: BP 172/79
[2017-03-18 14:00] VITALS: BP 130/78
[2017-03-18] MEDS: IPRATROPIUM 0.5MG/ALBUTEROL 2.5MG INH SOL UD 3ML (DUONEB)(J7620) NEB PRN (15:39)
[2017-03-18] MEDS: LORazepam 0.5 MG TAB PO PRN (20:05)
[2017-03-18 22:00] VITALS: BP 160/77
--- NOTE | 2017-03-18 23:01 | IPNPDOC ---
Subjective Date Seen The patient was seen on 03/18/17. Subjective Chief Complaint/HPI The patient is a 81-year-old female admitted with a reason for visit of Copd W/ Acute Exacerbation. Objective Physical Examination General Exam: Positive: No Acute Distress Eye Exam: Positive: PERRLA, Conjunctiva & lids normal Neck Exam: Positive: Supple, Negative: JVD, thyromegaly Chest Exam: Positive: Diminished Abdomen Exam: Positive: Normal bowel sounds, Soft, Negative: Tenderness, Hepatospenomegaly Extremity Exam: Positive: Normal pulses, Negative: Clubbing, Cyanosis, Edema Assessment /Plan Problems (1) COPD exacerbation Status: Acute Problem Text: * continue duonebs, oxygen prednisone * azithro and ceftriaxone (2) HTN (hypertension) Status: Chronic (3) CAD (coronary artery disease) Status: Chronic Problem Text: * had some chest pain earlier today * will order troponin * and check EKG (4) Pulmonary hypertension Status: Chronic (5) Anxiety Status: Chronic (6) Dyslipidemia Status: Chronic Plan/VTE VTE Prophylaxis Ordered?: Yes VS, I&O, 24H, [facility] Vital Signs/I&O Vital Signs Date Time Temp Pulse Resp B/P (MAP) Pulse Ox O2 Delivery O2 Flow Rate FiO2 03/18/17 22:00 99.0 102 22 160/77 (104) 91 Nasal Cannula 1.0 I&O- Last 24 Hours up to 6 AM 03/18/17 05:59 Intake Total 940 ml Output Total 1051 ml Balance -111 ml Laboratory Data 24H LABS Laboratory Tests 2 03/18/17 05:43: Anion Gap 10, Glomerular Filtration Rate > 60.0, Blood Urea Nitrogen 25H, Creatinine 0.83, Sodium Level 143, Potassium Level 3.9, Chloride Level 104, Carbon Dioxide Level 29, Calcium Level 8.2L CBC/BMP Laboratory Tests 03/18/17 05:43 Red Blood Count 3.27 L, Mean Corpuscular Volume 92.6, Mean Corpuscular Hemoglobin 30.0, Mean Corpuscular Hemoglobin Concent 32.4, Red Cell Distribution Width 16.1 H, Calcium Level 8.2 L Microbiology Microbiology 03/17/17 Gram Stain - Final, Resulted 03/17/17 Sputum Culture, Resulted Pending 03/16/17 Respiratory Virus Panel (PCR) ([facility]HEED) - Final, Complete OLENA MEJÍA DO March 18, 2017 23:01
[2017-03-19] MEDS: IPRATROPIUM 0.5MG/ALBUTEROL 2.5MG INH SOL UD 3ML (DUONEB)(J7620) NEB SCH ×4 (01:47→20:00)
[2017-03-19] MEDS: HEPARIN SOD (PORCINE) 5000 UNITS/ML VIAL SC SCH ×3 (05:07→21:45)
[2017-03-19 06:00] VITALS: BP 162/77
[2017-03-19 06:17] LABS: MEAN CORPUSCULAR HEMOGLOBIN 29.7 pg (27.0-33.0); MEAN CORPUSCULAR HGB CONC 32.9 g/dl (32.0-36.5); MEAN CORPUSCULAR VOLUME 90.4 fl (80.0-96.0); RED CELL DISTRIBUTION WIDTH 15.8 % (11.5-14.5); WHITE BLOOD COUNT 10.2 K/mm3 (4.0-10.0)
[2017-03-19 06:28] LABS: ANION GAP 8 MEQ/L (8-16); BLOOD UREA NITROGEN 26 MG/DL (7-18); CALCIUM LEVEL 8.2 MG/DL (8.8-10.2); CARBON DIOXIDE LEVEL 30 MEQ/L (21-32); CHLORIDE LEVEL 103 MEQ/L (98-107); CREATININE FOR GFR 0.76 MG/DL (0.55-1.02); GLOMERULAR FILTRATION RATE > 60.0 (>32); GLUCOSE, FASTING 138 MG/DL (83-110); POTASSIUM SERUM 3.8 MEQ/L (3.5-5.1); SODIUM LEVEL 141 MEQ/L (136-145)
[2017-03-19] MEDS: ADVAIR DISKUS 250/50 INH PWD INH SCH ×2 (07:21→20:05)
[2017-03-19] MEDS: predniSONE 20 MG TAB PO SCH ×2 (08:07→20:31)
[2017-03-19] MEDS: LISINOPRIL 10 MG TAB PO SCH (08:07)
[2017-03-19] MEDS: FUROSEMIDE 40 MG TAB PO SCH (08:07)
[2017-03-19] MEDS: ASPIRIN 81 MG ENTERIC TAB PO SCH (08:07)
[2017-03-19] MEDS: ATORVASTATIN 20 MG TAB PO SCH (08:07)
[2017-03-19] MEDS: METOPROLOL TART 12.5 MG PER 1/2 TAB PO SCH ×2 (08:08→20:30)
[2017-03-19] MEDS: CLOPIDOGREL 75 MG TAB PO SCH (08:08)
[2017-03-19] MEDS: LORazepam 0.5 MG TAB PO PRN ×2 (08:13→20:31)
--- NOTE | 2017-03-19 11:20 | CR ---
DATE OF CONSULTATION: 03/18/2017 NOTE: I was asked by Dr. Moreno to evaluate Ms. Harmony Bowers for intermittent desaturations. Ms. Bowers is an 81-year-old white female, well known to the pulmonary service. She is a patient of Dr. Justice with a history of severe chronic obstructive pulmonary disease (COPD). She has had multiple hospitalizations in the recent past, with this being her third in 2017. She was admitted in February (03/05/2017 through 03/09/2017) for COPD exacerbation and community-acquired pneumonia. She presented to the emergency department on 03/15/2017 for acute shortness of breath. Apparently, on the evening of 03/14/2017, she awoke that night, was acutely short of breath; and when this shortness of breath persisted, in the morning, she tried turning her portable oxygen up to 4.5 liters. When her shortness of breath did not resolve, she proceeded to [facility] for further evaluation. In reviewing the admitting note, other difficulties at that time was a perception of fever with shivering chills. No change in her cough or increased sputum production. She was evaluated in the emergency department, and her SpO2 was 97% on 2 liters. She was described as having positive mild crackles in the bilateral low bases and 2+ pitting edema bilaterally. She was admitted and initially placed on systemic corticosteroids, as well as antibiotics, pending sputum culture results. She also was diuresed. Her gram stain showed few white blood cells (WBCs) and no organisms, and her WBC on presentation was 8.2, so the antibiotics were discontinued. On examination, she was not found to be wheezing. It was felt her breathing was at baseline, so the plans were to discontinue the systemic corticosteroids. She was to be discharged yesterday, but when she was told of the discharge, apparently she became quite upset, hyperventilated, and then had desaturations to 84%, and she was, therefore, kept an additional night. Apparently, when she was sleeping last night and because of good saturations, her oxygen was removed. She woke up and became very "panicky" and again had desaturations out to around 80%. In both instances, the saturations returned to normal with no needed intervention. It is because of these intermittent desaturations that pulmonary was asked to consult on her. At the present time, Ms. Bowers notes no change in her baseline dyspnea on exertion. No significant cough. No chest pain or pressure. No nausea. She has remained afebrile since her admission. She is concerned because of the times that she desaturates. She also states that she does not understand her underlying lung disease and why it will not get better. PAST MEDICAL HISTORY: 1. COPD, portable oxygen prescribed but uses 2 liters as needed. 2. Coronary artery disease (CAD). A. Status post non ST elevated myocardial infarction October 2016. B. Status post plasty and two stents placement in October 2016. 3. Pulmonary hypertension with an estimated right ventricle (RV) systolic pressure of 72 per echocardiogram October 2016. 4. History of transient ischemic attack (TIA). 5. History of malaria. 6. History of dysentery. 7. 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 8. Status post appendectomy. 9. Status post aortic stenosis surgery 40-50 years ago. 10. History of tobacco usage. ALLERGIES: LIDOCAINE, PROCAINE. Possible reaction to Levaquin with a rash. MEDICATIONS ON ADMISSION: - albuterol HFA two puffs every 4 hours as needed - albuterol nebulization every 4 hours as needed - aspirin 81 mg daily - atorvastatin 40 mg daily - calcium and vitamin D one tablet by mouth every day - Plavix 75 mg by mouth every day - furosemide 40 mg by mouth every day - atrovent metered-dose inhaler two puffs every 4 hours as needed - lisinopril 10 mg by mouth every day - medrol pack use as directed - metoprolol 12.5 mg by mouth twice a day - nitroglycerin 0.4 mg sublingual every 5 minute as needed - spironolactone 12.5 mg by mouth as needed I am uncertain of other medications that are listed in the electronic medical record (EMR), including Chantix, which she should have no need of, as she reports she quit smoking 28 years ago. OBJECTIVE: PHYSICAL EXAMINATION: GENERAL: Ms. Bowers is sitting in bed, in no acute distress. She can complete full sentences and easily can move from the lying position to the sitting position. VITAL SIGNS: Temperature 98.8, pulse 86, and respiratory rate 22, blood pressure 172/79 with a mean arterial pressure (MAP) 110, SpO2 94% on 2 liters. HEENT: Anicteric. Nares: Patent bilaterally. Moist mucosa. Oxygen tubing in place. Oropharynx: Fair dentition. No evidence of drainage in the posterior pharynx. NECK: Supple, without jugular venous distention (JVD), without thyromegaly or masses. Trachea is midline. LYMPHATICS: Without cervical or supraclavicular lymphadenopathy. CHEST: Increased AP diameter. LUNGS: Symmetric excursion, generally diminished air entry. No wheeze, rhonchi , or crackle on tidal excursion. prolonged expiratory phase. No accessory muscle use or retractions. Hyperresonance to percussion with slight dullness at the right base. CARDIOVASCULAR: Distant regular rate and rhythm with a normal S1, S2. No murmur, rub, or gallop appreciated. ABDOMEN: Normoactive bowel sounds, soft, nondistended, nontender. No hepatosplenomegaly or masses appreciated. EXTREMITIES: Without clubbing, cyanosis, or significant edema. Palpable pedal pulses bilaterally. LABORATORY DATA: On admission, her CBC showed a hemoglobin of 10.8, hematocrit of 33, platelet count of 313,000, white blood cell count 8200, with a differential of 69% neutrophils, 16% lymphocytes, and 6% monocytes. Chemistries today show a sodium of 143, potassium 3.9, chloride 104, bicarbonate 29, anion gap 10, BUN 25, creatinine 0.8, glucose 163, calcium 8.2, troponin I times three has been less than 0.02. Arterial blood gas on admission was 7.44/37/89, measured saturation 97%, and a base excess of 0.7. I am not certain what level of oxygen this was on. I reviewed her chest x-ray, as well as the report from 03/15/2017. That x-ray showed normal-appearing cardiac silhouette, pulmonary vascular status. Normal-appearing mediastinal and hilar regions. No acute infiltrates. There is evidence of hyperinflation. There was plate-like atelectasis at the right base. I reviewed her chest CT scan, as well as the report, from 03/15/2017. That CT showed normal-appearing cardiac silhouette and pulmonary vascular shadows. No mediastinal or hilar lymphadenopathy. There were diffuse bilateral emphysematous changes with chronic bibasilar atelectasis. No acute infiltrate. Per the report, the infiltrates seen on the previous study from 08/06/2016, have resolved. No evidence of pulmonary emboli. IMPRESSION: 1. Episodic desaturation. This is not surprising, as I anticipate when she has these "episodes," she likely hyperventilates, air traps, and, therefore, has a decrease in oxygenation. She also has pulmonary hypertension, and that may accentuate the desaturation. These episodes resolve spontaneously, and no intervention is necessary other than reminding her of breathing patterns that may help her, such as pursed-lip breathing. 2. Sudden onset shortness of breath during the evening prior to admission. By history, this may represent paroxysmal nocturnal dyspnea (PND), either from flash pulmonary edema (although no chest x-ray or CT evidence of that upon arrival to the emergency department), sleep apnea, gastroesophageal reflux disease (GERD), or other. 3. Chronic obstructive pulmonary disease, likely very severe, with at least the need for exercise oxygen secondary to emphysema. 4. Emphysema on CT. 5. Coronary artery disease. 6. Pulmonary hypertension, likely severe per echocardiogram October 2016. 7. History of tobacco usage. RECOMMENDATIONS: 1. As noted above, no specific intervention is necessary for these transient desaturations, as they are anticipated. She may benefit from re-instruction in pursed-lip breathing. 2. I spent significant time reviewing emphysema with Ms. Bowers. She has many concerns as to why this is not a "treatable" process. I tried in several different ways to explain emphysema and also the expected continued rate of progression, even though she has quit smoking. 3. I agree with stopping the increased prednisone that she is receiving in the hospital. It was very unclear on her home medication list whether or not she is on prednisone chronically daily. 4. One of her concerns is the types of portable oxygen. This can be addressed by Dr. Justice as an outpatient. Thank you for this consultation. Please do not hesitate to contact me if there are further questions/problems. DIANELYS
--- NOTE | 2017-03-19 12:55 | IPNPDOC ---
Subjective Date Seen The patient was seen on 03/19/17. Subjective Chief Complaint/HPI The patient is a 81-year-old female admitted with a reason for visit of Copd W/ Acute Exacerbation. Constitutional: Denies: Chills, Fever, Night Sweats Pulmonary: Reports: Dyspnea, Cough Objective Physical Examination General Exam: Positive: No Acute Distress Eye Exam: Positive: PERRLA, Conjunctiva & lids normal Neck Exam: Positive: Supple, Negative: JVD, thyromegaly Chest Exam: Positive: Diminished Abdomen Exam: Positive: Normal bowel sounds, Soft, Negative: Tenderness, Hepatospenomegaly Extremity Exam: Positive: Normal pulses, Negative: Clubbing, Cyanosis, Edema Assessment /Plan Problems (1) COPD exacerbation Status: Acute Problem Text: * continue duonebs, oxygen * will d/c antibitoics and prednisone * pt was seen by dr hurtado on 03/18 who didn't recommend anything else (2) HTN (hypertension) Status: Chronic (3) CAD (coronary artery disease) Status: Chronic Problem Text: * had some chest pain earlier today * will order troponin * and check EKG (4) Pulmonary hypertension Status: Chronic (5) Anxiety Status: Chronic (6) Dyslipidemia Status: Chronic Plan/VTE VTE Prophylaxis Ordered?: Yes VS, I&O, 24H, [facility] Vital Signs/I&O Vital Signs Date Time Temp Pulse Resp B/P (MAP) Pulse Ox O2 Delivery O2 Flow Rate FiO2 03/19/17 09:00 Nasal Cannula 1.0 03/19/17 08:08 84 162/77 03/19/17 06:00 99.0 17 95 I&O- Last 24 Hours up to 6 AM 03/19/17 06:00 Intake Total 720 ml Output Total 800 ml Balance -80 ml Laboratory Data 24H LABS Laboratory Tests 2 03/19/17 05:50: Anion Gap 8, Glomerular Filtration Rate > 60.0, Blood Urea Nitrogen 26H, Creatinine 0.76, Sodium Level 141, Potassium Level 3.8, Chloride Level 103, Carbon Dioxide Level 30, Calcium Level 8.2L CBC/BMP Laboratory Tests 03/19/17 05:50 Red Blood Count 3.28 L, Mean Corpuscular Volume 90.4, Mean Corpuscular Hemoglobin 29.7, Mean Corpuscular Hemoglobin Concent 32.9, Red Cell Distribution Width 15.8 H, Calcium Level 8.2 L Microbiology Microbiology 03/17/17 Gram Stain - Final, Complete 03/17/17 Sputum Culture - Final, Complete Yeast Like Organism 03/16/17 Respiratory Virus Panel (PCR) ([facility]HEED) - Final, Complete OLENA MEJÍA DO March 19, 2017 12:55
[2017-03-19 14:00] VITALS: BP 176/70
[2017-03-19 22:00] VITALS: BP 152/70
[2017-03-20] MEDS: IPRATROPIUM 0.5MG/ALBUTEROL 2.5MG INH SOL UD 3ML (DUONEB)(J7620) NEB SCH ×4 (02:00→19:58)
[2017-03-20] MEDS: HEPARIN SOD (PORCINE) 5000 UNITS/ML VIAL SC SCH ×2 (05:06→14:14)
[2017-03-20 05:52] LABS: MEAN CORPUSCULAR HEMOGLOBIN 29.2 pg (27.0-33.0); MEAN CORPUSCULAR HGB CONC 31.8 g/dl (32.0-36.5); MEAN CORPUSCULAR VOLUME 91.9 fl (80.0-96.0); RED CELL DISTRIBUTION WIDTH 15.9 % (11.5-14.5); WHITE BLOOD COUNT 10.8 K/mm3 (4.0-10.0)
[2017-03-20 06:00] VITALS: BP 149/68
[2017-03-20 06:08] LABS: ANION GAP 7 MEQ/L (8-16); BLOOD UREA NITROGEN 31 MG/DL (7-18); CALCIUM LEVEL 8.2 MG/DL (8.8-10.2); CARBON DIOXIDE LEVEL 30 MEQ/L (21-32); CHLORIDE LEVEL 103 MEQ/L (98-107); CREATININE FOR GFR 0.74 MG/DL (0.55-1.02); GLOMERULAR FILTRATION RATE > 60.0 (>32); GLUCOSE, FASTING 128 MG/DL (83-110); POTASSIUM SERUM 3.6 MEQ/L (3.5-5.1); SODIUM LEVEL 140 MEQ/L (136-145)
[2017-03-20] MEDS: ADVAIR DISKUS 250/50 INH PWD INH SCH ×2 (07:24→23:01)
[2017-03-20] MEDS: IPRATROPIUM 0.5MG/ALBUTEROL 2.5MG INH SOL UD 3ML (DUONEB)(J7620) NEB PRN ×2 (08:31→16:42)
[2017-03-20 09:29] VITALS: BP 151/68
[2017-03-20] MEDS: METOPROLOL TART 12.5 MG PER 1/2 TAB PO SCH ×2 (09:31→20:49)
[2017-03-20] MEDS: predniSONE 20 MG TAB PO SCH ×2 (09:31→20:50)
[2017-03-20] MEDS: ATORVASTATIN 20 MG TAB PO SCH (09:31)
[2017-03-20] MEDS: FUROSEMIDE 40 MG TAB PO SCH (09:31)
[2017-03-20] MEDS: ASPIRIN 81 MG ENTERIC TAB PO SCH (09:31)
[2017-03-20] MEDS: LORazepam 0.5 MG TAB PO PRN ×2 (09:31→20:50)
[2017-03-20] MEDS: CLOPIDOGREL 75 MG TAB PO SCH (09:31)
[2017-03-20] MEDS: LISINOPRIL 10 MG TAB PO SCH (09:31)
[2017-03-20 14:00] VITALS: BP 134/62
[2017-03-20] MEDS ORDERED: PRED10TA PO (17:28)
[2017-03-20] MEDS ORDERED: ALPR0.25 PO (18:41)
--- NOTE | 2017-03-20 19:01 | DSES ---
DATE OF ADMISSION: 03/17/2017 DATE OF DISCHARGE: PRIMARY CARE PROVIDER: Dr. Anson Lomeli SAMPLE DISPLAY PREPARER: Dr. Justice REASON FOR ADMISSION: Shortness of breath. FINAL DIAGNOSES: 1. Emphysema. 2. Chronic obstructive pulmonary disease (COPD) exacerbation. 3. Hypertension. 4. Recently diagnosed with community-acquired pneumonia. 5. Coronary artery disease. 6. Pulmonary hypertension. 7. Anxiety. 8. Dyslipidemia. HISTORY OF THE PRESENT ILLNESS: The patient is an 81-year-old female with a history of emphysema, COPD, oxygen dependent on 2 liters, recently was discharged from the hospital after she was treated with a course of antibiotics for community-acquired pneumonia, presented to the emergency room for acute shortness of breath. She stated that at baseline, the patient does not use continuous oxygen, even though she is prescribed. She uses portable nasal cannula as needed, especially during exertion. She stated she had multiple recent hospitalizations including hospitalization on 03/05/2017 to 03/09/2017 for community-acquired pneumonia. She stated that on 03/14/2017, she started to have acute shortness of breath, woke up in the middle of the night with shortness of breath that persisted until the morning. She tried her oxygen at 4-1/2 liters, but it did not help her breathing. The patient stated that she has also had fevers and chills. She did notice increase in sputum production and increased cough. HOSPITAL COURSE: The patient was admitted. She was started on antibiotics, azithromycin intravenously (IV), as well as ceftriaxone. She was also started on oral prednisone with DuoNebs as needed and as needed. She was continued on her oxygen 2 liters, which she was tolerating well. The patient did have one episode of desaturation as low as 88 on her 2 liters. Sputum culture, as well as respiratory panel were both obtained. Sputum culture showed no organisms seen, normal king, a few yeast-like organisms. Respiratory panel was negative. The patient periodically complained of chest pain also during the hospitalization. She had four cardiac enzymes that were negative. She had two EKGs, one on admission and one the following day which showed sinus rhythm with right bundle branch block, occasional premature ventricular contractions (PVCs). The patient continued to complain of shortness of breath. She also underwent a CT angiogram to rule out pulmonary embolism (PE), which was negative. CT angiogram was negative for any pulmonary emboli, pleural effusion, did not show any dissection, no aneurysm and was only positive for emphysematous changes in the upper lobes. It showed that prior infiltrates had resolved. Over the weekend, the patient continued to complain of shortness of breath, stating she is unable to go home due to shortness of breath and cough. At that point, Dr. Balderas from pulmonology was consulted. She had evaluated the patient and stated that her shortness of breath was likely related to her chronic disease, which is not reversible. She recommended to continue the patient on her oxygen continuously 2 liters, and she recommended to follow the patient outpatient, Dr. Justice. The patient was noted to get anxiety episodes where she would hyperventilate and that is when her oxygen saturation would drop. She was restarted on her Ativan that she normally uses 0.5 mg twice a day as needed. Once the patient's workup was completed, she was discharged home. She is to followup with her primary care provider, Dr. Anson Lomeli, in 1 week. She is to followup with Dr. Justice 1-2 weeks. Diet: Regular. Activity is as tolerated. The patient was instructed to wear her oxygen at all times. Discharge condition was stable. DISCHARGE MEDICATIONS: Include: - prednisone 10 mg by mouth twice a day for 3 more days - albuterol sulfate two puffs inhaled every 4 hours as needed for shortness of breath and 2.5 mg as needed for shortness of breath - aspirin 81 mg daily - atorvastatin 40 mg daily - calcium and vitamin D one tablet by mouth daily - Plavix 75 mg daily - Lasix 40 mg daily - Atrovent two puffs inhaled every 4 hours as needed for shortness of breath - lisinopril 10 mg daily - metoprolol 12.5 mg by mouth twice a day - nitroglycerin 0.4 mg sublingually as needed for chest pain - spironolactone 12.5 mg by mouth daily as needed for fluid retention - Xanax 0.25 mg by mouth three times a day as needed for anxiety The patient stated she will be unable to go home today since she does not have a ride. She will likely be discharged in the morning.
[2017-03-20 22:00] VITALS: BP 149/67
[2017-03-21] MEDS: IPRATROPIUM 0.5MG/ALBUTEROL 2.5MG INH SOL UD 3ML (DUONEB)(J7620) NEB SCH ×3 (01:24→13:34)
[2017-03-21 06:00] VITALS: BP 163/74
[2017-03-21 07:16] LABS: MEAN CORPUSCULAR HEMOGLOBIN 29.3 pg (27.0-33.0); MEAN CORPUSCULAR HGB CONC 32.1 g/dl (32.0-36.5); MEAN CORPUSCULAR VOLUME 91.5 fl (80.0-96.0); RED CELL DISTRIBUTION WIDTH 15.8 % (11.5-14.5); WHITE BLOOD COUNT 10.7 K/mm3 (4.0-10.0)
[2017-03-21] MEDS: ADVAIR DISKUS 250/50 INH PWD INH SCH (07:21)
[2017-03-21 07:38] LABS: ANION GAP 7 MEQ/L (8-16); BLOOD UREA NITROGEN 31 MG/DL (7-18); CALCIUM LEVEL 7.9 MG/DL (8.8-10.2); CARBON DIOXIDE LEVEL 32 MEQ/L (21-32); CHLORIDE LEVEL 102 MEQ/L (98-107); CREATININE FOR GFR 0.79 MG/DL (0.55-1.02); GLOMERULAR FILTRATION RATE > 60.0 (>32); GLUCOSE, FASTING 115 MG/DL (83-110); POTASSIUM SERUM 3.4 MEQ/L (3.5-5.1); SODIUM LEVEL 141 MEQ/L (136-145)
[2017-03-21 08:09] VITALS: BP 163/74
[2017-03-21] MEDS: METOPROLOL TART 12.5 MG PER 1/2 TAB PO SCH (08:09)
[2017-03-21] MEDS: ATORVASTATIN 20 MG TAB PO SCH (08:09)
[2017-03-21] MEDS: CLOPIDOGREL 75 MG TAB PO SCH (08:09)
[2017-03-21] MEDS: predniSONE 20 MG TAB PO SCH (08:09)
[2017-03-21] MEDS: LORazepam 0.5 MG TAB PO PRN ×2 (08:09→18:00)
[2017-03-21] MEDS: LISINOPRIL 10 MG TAB PO SCH (08:09)
[2017-03-21] MEDS: FUROSEMIDE 40 MG TAB PO SCH (08:09)
[2017-03-21] MEDS: ASPIRIN 81 MG ENTERIC TAB PO SCH (08:10)
--- NOTE | 2017-03-21 08:29 | ECGEPIP ---
Stationary ECG Study [facility] Test Date: 2017-03-20 Pat Name: MARLENE BANG Department: Room: [place] [address] Gender: F Administrative And Program Specialist: PAIGE : 1935 Requested By: OLENA MEJÍA Order Number: [id number] Reading MD: Geena Phillips Measurements Intervals [place] Rate: 94 P: 72 [place]: 123 QRS: 42 QRSD: 137 T: 38 QT: 375 QTc: 470 Interpretive Statements SINUS RHYTHM WITH OCCASIONAL SUPRAVENTRICULAR PREMATURE COMPLEXES RIGHT BUNDLE BRANCH BLOCK SIMILAR TO 03/16/16 Electronically Signed On 03-21-2017 8:29:29 EDT by Geena Phillips
[2017-03-21] MEDS ORDERED: POTASSIUM CHLORIDE 10 MEQ SR TABLET PO ONE (08:30)
--- NOTE | 2017-03-21 13:28 | IPNPDOC ---
Text Note Date of Service The patient was seen on 03/21/17. NOTE No acute changes overnight. Dyspnea has improved. Pt ready to be d/c today, waiting on her son to get out of work. Please see d/c summary dictated by Dr. Moreno on 03/20/17. VS,Fishbone, I+O VS, Fishbone, I+O Laboratory Tests 03/21/17 06:59 Red Blood Count 3.57 L, Mean Corpuscular Volume 91.5, Mean Corpuscular Hemoglobin 29.3, Mean Corpuscular Hemoglobin Concent 32.1, Red Cell Distribution Width 15.8 H, Calcium Level 7.9 L Vital Signs Date Time Temp Pulse Resp B/P (MAP) Pulse Ox O2 Delivery O2 Flow Rate FiO2 03/21/17 08:10 Nasal Cannula 2.0 03/21/17 08:09 85 163/74 03/21/17 06:00 98.7 20 98 I&O- Last 24 Hours up to 6 AM 03/21/17 06:00 Intake Total 1770 ml Output Total 1550 ml Balance 220 ml JAHAIRA CABALLERO MD March 21, 2017 13:28
[2017-03-21 14:00] VITALS: BP 142/62
[2017-03-21] MEDS ORDERED: HEPARIN SOD (PORCINE) 5000 UNITS/ML VIAL SC SCH (14:00)
[2017-03-21] MEDS: IPRATROPIUM 0.5MG/ALBUTEROL 2.5MG INH SOL UD 3ML (DUONEB)(J7620) NEB PRN (16:24)
== END 2017-03-21 18:13 | disposition home or self-care (01) | DRG 192 ==
LOC: EDBD 11:53 → M ED 13:37 → M ED INP 16:32 → M MSPAV 18:23 → OBSVTOIN 03-17 13:13
PROVIDERS: ADMIT Internal Medicine; ATTEND Internal Medicine
DX: J44.1 Chronic obstructive pulmonary disease with (acute) exacerbation (principal); I10 Essential (primary) hypertension; I25.10 Atherosclerotic heart disease of native coronary artery without angina pectoris; F41.9 Anxiety disorder, unspecified; E78.5 Hyperlipidemia, unspecified; Z99.81 Dependence on supplemental oxygen; I27.2 Other secondary pulmonary hypertension; Z79.82 Long term (current) use of aspirin; Z79.02 Long term (current) use of antithrombotics/antiplatelets; Z79.899 Other long term (current) drug therapy; Z95.9 Presence of cardiac and vascular implant and graft, unspecified; Z88.1 Allergy status to other antibiotic agents; Z88.5 Allergy status to narcotic agent; Z87.891 Personal history of nicotine dependence; I25.2 Old myocardial infarction

== ENCOUNTER 2017-04-14 21:24 | Emergency (ER) | payer MEDICARE, OTHER ==
[~2017-04-14] VITALS: Ht 157.5 cm; Wt 47.6 kg
[~2017-04-14 21:24] MED LIST changes: +ALBU83IN INH; +ALTA10CA3 PO; +AMBI5TAB PO; +ASPI81TA7 PO; +ATRO0.063 INH; +CALCTAB68 PO; +CHEL50TA PO; +DOXY100T PO; +ESCI10TA2 PO; +FOLI400T PO; +FURO40TA2 PO; +GABA-279 PO; +MAGN400C2 PO; +MEDR4PAK PO; +MULTCAP11 PO; +PANCREATIN PO; +PATIENT COMMENT; +PLAV75TA38 PO; +VARE1TA PO; +VITATAB11 PO
[2017-04-14] MEDS ORDERED: methylPREDNISolone INJ 125 MG/2 ML VIAL (J2930) IV ONE (21:45)
[2017-04-14] MEDS ORDERED: ZYRT10TA2 PO (21:49)
[2017-04-14] MEDS ORDERED: TIZA2CAP3 PO (21:49)
[2017-04-14] MEDS ORDERED: AMLO10TA2 PO (21:49)
[2017-04-14 22:17] LABS: BASO # 0.1 K/mm3 (0.0-0.2); BASO % 1.1 % (0.0-1.0); EOS # 0.4 K/mm3 (0.0-0.50); EOS % 6.8 % (0.0-3.0); LARGE UNSTAINED CELL # 0.2 K/mm3 (0.0-0.4); LARGE UNSTAINED CELL % 3.6 % (0.0-4.0); LYMPH # 1.7 K/mm3 (1.5-4.5); LYMPH % 27.5 % (24.0-44.0); MEAN CORPUSCULAR HEMOGLOBIN 29.7 pg (27.0-33.0); MEAN CORPUSCULAR HGB CONC 32.2 g/dl (32.0-36.5); MEAN CORPUSCULAR VOLUME 92.3 fl (80.0-96.0); MONO # 0.5 K/mm3 (0.0-0.8); MONO % 7.5 % (0.0-5.0); NEUTROPHILS # 3.2 K/mm3 (1.8-7.7); NEUTROPHILS % 53.5 % (36.0-66.0); PLATELET COUNT, AUTOMATED 411 k/mm3 (150-450); RED CELL DISTRIBUTION WIDTH 15.6 % (11.5-14.5)
[2017-04-14 22:22] LABS: ANION GAP 7 MEQ/L (8-16); BLOOD UREA NITROGEN 31 MG/DL (7-18); CALCIUM LEVEL 8.7 MG/DL (8.8-10.2); CARBON DIOXIDE LEVEL 27 MEQ/L (21-32); CHLORIDE LEVEL 105 MEQ/L (98-107); CREATININE FOR GFR 0.83 MG/DL (0.55-1.02); GLOMERULAR FILTRATION RATE > 60.0 (>32); GLUCOSE, FASTING 92 MG/DL (83-110); POTASSIUM SERUM 4.3 MEQ/L (3.5-5.1); SODIUM LEVEL 139 MEQ/L (136-145)
[2017-04-14] MEDS: IPRATROPIUM 0.5MG/ALBUTEROL 2.5MG INH SOL UD 3ML (DUONEB)(J7620) NEB PRN ×2 (22:30→22:31)
[2017-04-14 22:52] LABS: ABG BASE EXCESS -5.9 (-2.0-2.0); ABG HCO3 18.2 MEQ/L (22.0-26.0); ABG STANDARD HCO3 19.6 MEQ/L (22.0-26.0); ABG TOTAL CO2 19.2 MEQ/L (23.0-31.0); ABG pH (ARTERIAL) 7.387 UNITS (7.350-7.450)
[2017-04-14] MEDS ORDERED: PRED20TA PO (22:59)
[2017-04-14 23:01] VITALS: BP 130/63
--- NOTE | 2017-04-15 08:45 | REP ---
The PA and lateral chest: Comparisons are the PA and lateral chest of 03/15/[address] of 03/15/2017. There are bibasilar zones of discoid atelectasis, unchanged. There is a calcification projected over the anterior end of the right seventh rib, likely costochondral calcification. There is a focal density peripherally in the left lung, likely a bone island in the left seventh rib. The lung carbajal otherwise clear. Cardiac size is normal. There is demineralization. There is thoracic scoliosis convex right. There is moderate kyphosis. There is diffuse demineralization. There are grade 1 compression deformities of at least two mid thoracic vertebral bodies, unchanged. Impression: Bibasilar discoid atelectasis. Demineralization and scoliosis. Grade 1 compression deformities of two mid thoracic vertebral bodies. Sternotomy wires. I suspect there is a coronary artery stent. Signed by Jaiden Monae MD 04/15/2017 08:36 A
--- NOTE | 2017-04-16 19:18 | ECGEPIP ---
Stationary ECG Study [facility] - ED Test Date: 2017-04-14 Pat Name: MARLENE BANG Department: Room: - Gender: F Methods Analyst Data Processing: yen : 1935 Requested By: Real Chu Order Number: [id number] Reading MD: Janeth Guevara Measurements Intervals [place] Rate: 87 P: 88 [place]: 151 QRS: 52 QRSD: 126 T: 48 QT: 376 QTc: 453 Interpretive Statements SINUS RHYTHM POSSIBLE LEFT ATRIAL ENLARGEMENT RIGHT BUNDLE BRANCH BLOCK SIMILAR 03/20/17 Electronically Signed On 04-16-2017 19:18:18 EDT by Janeth Guevara
== END 2017-04-15 00:08 | disposition home or self-care (01) ==
LOC: EDBD 21:24 → M ED 22:32
DX: J44.1 Chronic obstructive pulmonary disease with (acute) exacerbation (principal); I45.10 Unspecified right bundle-branch block; I10 Essential (primary) hypertension; E11.9 Type 2 diabetes mellitus without complications; I25.10 Atherosclerotic heart disease of native coronary artery without angina pectoris; Z86.73 Personal history of transient ischemic attack (TIA), and cerebral infarction without residual deficits; Z95.5 Presence of coronary angioplasty implant and graft; Z87.891 Personal history of nicotine dependence; Z79.899 Other long term (current) drug therapy; Z79.82 Long term (current) use of aspirin; Z79.02 Long term (current) use of antithrombotics/antiplatelets
CPT/HCPCS: 36600; 71020; 80048; 82803; 85025; 93005; 93041; 94640; 96374; 99284; J2930

== ENCOUNTER 2017-04-26 06:25 | Inpatient (IN) | payer MEDICARE, OTHER ==
[~2017-04-26] VITALS: Ht 160 cm; Wt 56.0 kg
[~2017-04-26 06:25] MED LIST changes: +ZYRT10TA2 PO
[2017-04-26] MEDS ORDERED: dexameTHASONE 20 MG/5 ML VIAL (J1100) IV ONE (07:00)
[2017-04-26 07:01] LABS: VENOUS BASE EXCESS 0.6 (-2.0-2.0); VENOUS PARTIAL PRESSURE CO2 57.5 mmHg (38.0-50.0); VENOUS PARTIAL PRESSURE O2 39.6 mmHg (30.0-50.0); VENOUS STANDARD HCO3 24.4 MEQ/L; VENOUS TOTAL CO2 29.6 MEQ/L (24.0-28.0)
[2017-04-26] MEDS: IPRATROPIUM 0.5MG/ALBUTEROL 2.5MG INH SOL UD 3ML (DUONEB)(J7620) NEB SCH ×5 (07:04→19:43)
[2017-04-26 07:05] LABS: BASO # 0.1 K/mm3 (0.0-0.2); BASO % 0.9 % (0.0-1.0); EOS # 0.4 K/mm3 (0.0-0.50); EOS % 4.2 % (0.0-3.0); LARGE UNSTAINED CELL # 0.2 K/mm3 (0.0-0.4); LARGE UNSTAINED CELL % 2.3 % (0.0-4.0); LYMPH # 1.5 K/mm3 (1.5-4.5); LYMPH % 15.8 % (24.0-44.0); MEAN CORPUSCULAR HEMOGLOBIN 30.2 pg (27.0-33.0); MEAN CORPUSCULAR HGB CONC 32.2 g/dl (32.0-36.5); MEAN CORPUSCULAR VOLUME 93.8 fl (80.0-96.0); MONO # 0.5 K/mm3 (0.0-0.8); MONO % 5.5 % (0.0-5.0); NEUTROPHILS # 6.6 K/mm3 (1.8-7.7); NEUTROPHILS % 71.3 % (36.0-66.0); PLATELET COUNT, AUTOMATED 346 k/mm3 (150-450); RED CELL DISTRIBUTION WIDTH 15.3 % (11.5-14.5); WHITE BLOOD COUNT 9.2 K/mm3 (4.0-10.0)
[2017-04-26 07:11] LABS: INR 0.98
[2017-04-26 07:36] LABS: ALBUMIN 3.7 GM/DL (3.2-5.2); ALBUMIN/GLOBULIN RATIO 0.97 (1.00-1.93); ALKALINE PHOSPHATASE 87 U/L (45-117); ALT/SGPT 21 U/L (12-78); ANION GAP 7 MEQ/L (8-16); AST/SGOT 23 U/L (15-37); BILIRUBIN,DIRECT < 0.1 MG/DL (0.0-0.2); BILIRUBIN,TOTAL 0.7 MG/DL (0.2-1.0); BLOOD UREA NITROGEN 25 MG/DL (7-18); CALCIUM LEVEL 8.8 MG/DL (8.8-10.2); CARBON DIOXIDE LEVEL 29 MEQ/L (21-32); CHLORIDE LEVEL 102 MEQ/L (98-107); CREATININE FOR GFR 0.93 MG/DL (0.55-1.02); GLOMERULAR FILTRATION RATE > 60.0 (>32); GLUCOSE, FASTING 165 MG/DL (83-110); POTASSIUM SERUM 4.1 MEQ/L (3.5-5.1); SODIUM LEVEL 138 MEQ/L (136-145); THYROXINE (T4) 10.6 UG/DL (4.5-12.0); TOTAL PROTEIN 7.5 GM/DL (6.4-8.2)
--- NOTE | 2017-04-26 09:13 | REP ---
PORTABLE CHEST: AP portable view of the chest was performed and compared to prior study of 04/14/2017. Scattered fibrotic changes appear stable. There is no definite acute infiltrate. Cardiac silhouette is slightly prominent. There is calcification of the thoracic aorta. The mediastinal silhouette is unchanged. Multiple sternal wires are present. IMPRESSION: Chronic changes. No evidence of acute pulmonary disease. Signed by Jaiden Fulton MD 04/27/2017 05:06 P
[2017-04-26] MEDS ORDERED: ALPR0.25 PO (10:37)
[2017-04-26] MEDS ORDERED: ACETAMINOPHEN TAB 650MG DOSE (2X325MG) PO PRN (11:15)
--- NOTE | 2017-04-26 11:23 | ECGEPIP ---
Stationary ECG Study [facility] - ED Test Date: 2017-04-26 Pat Name: MARLENE BANG Department: Room: - Gender: F Director Medical Surgical: JOSELITO : 1935 Requested By: JAIR RODRIGUEZ Order Number: [id number] Reading MD: Real Hu Measurements Intervals [place] Rate: 111 P: 83 [place]: 160 QRS: 64 QRSD: 128 T: 52 QT: 304 QTc: 413 Interpretive Statements SINUS TACHYCARDIA POSSIBLE LAE RIGHT BUNDLE BRANCH BLOCK SIMILAR TO 04/14/17 Electronically Signed On 04-26-2017 11:22:52 EDT by Real Hu
[2017-04-26] MEDS ORDERED: METO-346 PO (11:32)
[2017-04-26] MEDS ORDERED: LISI10TA4 PO (11:32)
[2017-04-26] MEDS ORDERED: predniSONE 20 MG TAB PO SCH (12:00)
[2017-04-26 15:11] VITALS: BP 134/63
[2017-04-26] MEDS: IPRATROPIUM 0.5MG/ALBUTEROL 2.5MG INH SOL UD 3ML (DUONEB)(J7620) NEB PRN ×2 (17:34→22:54)
[2017-04-26] MEDS ORDERED: FUROSEMIDE 40 MG TAB PO PRN (18:15)
--- NOTE | 2017-04-26 18:19 | HPE ---
DATE OF ADMISSION: 04/26/2016 PRIMARY CARE PROVIDER: Dr. Lomeli VICE PRESIDENT OF INSTRUCTION: Dr. Justice REASON FOR ADMISSION: Shortness of breath. HISTORY OF PRESENT ILLNESS: The patient is an 81-year-old female with a past medical history significant for chronic obstructive pulmonary disease (COPD) with exacerbation and frequent hospitalization, pulmonary hypertension, anxiety, dyslipidemia, coronary artery disease (CAD) and hypertension who presented to the emergency room with her son complaining of shortness of breath. The patient stated she was getting up to go to the bathroom and she started to feel short of breath. She tried taking her inhalers and increased her oxygen up to four liters but still could not breathe. Her son called the ambulance and brought her in. The patient denies any fevers or chills. She only complains of a productive cough that is chronic in nature with clear sputum. No other symptoms. The patient states that she has been doing what she is supposed to do at home. However, her son states that she has not been using her medications and oxygen as instructed. Hospitalist was called for the admission. REVIEW OF SYSTEMS: 12-point review of systems was obtained. All of which was negative except for those mentioned above. PAST MEDICAL HISTORY: Significant for: 1. Chronic obstructive pulmonary disease (COPD). 2. Anxiety. 3. Coronary artery disease (CAD) with stenting. 4. Pulmonary hypertension. 5. History of transient ischemic attack (TIA). 6. History of malaria. 7. History of dysentery. PAST SURGICAL HISTORY: Significant for: 1. Right kidney procedure involving opening a duct. 2. Aortic surgery. 3. Cardiac stent placement. 4. Appendectomy. SOCIAL HISTORY: The patient lives at home with her son. She was a former smoker but quit 30 years ago. Denies any alcohol use. FAMILY HISTORY: Noncontributory. ALLERGIES: LIDOCAINE, LEVAQUIN, and PROCAINE. PHYSICAL EXAMINATION: VITAL SIGNS: On admission, temperature 99.4, pulse 106, respiratory rate 22, blood pressure is 134/63, pulse oximetry 96% on two liters. HEENT: Pupils are equal, round, and reactive light and accommodation. NECK: Supple. No jugular venous distention (JVD). LUNGS: Diminished breath sounds bilaterally. No wheezes appreciated. No rhonchi or rales. CARDIAC: Tachycardiac, regular rhythm. ABDOMEN: Soft, nontender, nondistended. EXTREMITIES: No clubbing, cyanosis or edema. NEUROLOGIC: Cranial nerves II-XII grossly intact. No focal deficits. LABORATORY FINDINGS: WBC is 9.2, hemoglobin 11.1, hematocrit 34.4, platelet count 346. Sodium 138, potassium 4.1, chloride 102, BUN 25, creatinine 0.93, fasting glucose 165, lactic acid 1.2, calcium 8.8. Chest x-ray was also done in the emergency room which showed chronic changes. No evidence of acute pulmonary disease. No definite acute infiltrate. ASSESSMENT AND PLAN: 1. Respiratory failure, likely secondary to exacerbation of her emphysema and chronic obstructive pulmonary disease (COPD). We will continue the patient on oxygen to keep saturations between 88% and 92%. We will continue prednisone 40 mg by mouth twice a day. We will continue DuoNebs as needed and scheduled. We will ambulate the patient and monitor her oxygenation with activity. 2. History of depression. We will continue the patient's home medication. 3. History of anxiety. We will continue the patient's home medication. 4. History of coronary disease. We will continue the patient's aspirin 81 mg by mouth daily, atorvastatin 40 mg by mouth daily, Plavix 75 mg by mouth daily, Lasix 40 mg by mouth as needed for swelling, and lisinopril 10 mg by mouth daily as well as metoprolol 12.5 mg by mouth twice a day. 5. Hyperlipidemia. Continue statin. 6. Deep vein thrombosis (DVT) prophylaxis. We will put thromboembolic-deterrent stockings (TEDS) and sequentials while in bed.
[2017-04-26] MEDS: BUDESONIDE 0.25 MG/2 ML INHALATION SUSPENSION INH SCH (20:01)
[2017-04-26] MEDS ORDERED: guaiFENesin DM LIQ 10ML UD PO ONE (20:30)
[2017-04-26] MEDS: METOPROLOL TART 12.5 MG PER 1/2 TAB PO SCH (20:42)
[2017-04-26] MEDS: predniSONE 20 MG TAB PO SCH (20:43)
[2017-04-26 20:59] VITALS: O2SAT 96
[2017-04-26 22:00] VITALS: BP 162/72
[2017-04-26] MEDS: DEXTROMETHORPHAN 60MG/10ML SUSP 90ML BTL(DELSYM) PO PRN (23:58)
[2017-04-27] MEDS: IPRATROPIUM 0.5MG/ALBUTEROL 2.5MG INH SOL UD 3ML (DUONEB)(J7620) NEB SCH ×4 (01:24→20:27)
[2017-04-27 05:46] VITALS: O2SAT 96
[2017-04-27] MEDS: IPRATROPIUM 0.5MG/ALBUTEROL 2.5MG INH SOL UD 3ML (DUONEB)(J7620) NEB PRN ×2 (05:49→17:29)
[2017-04-27 06:00] VITALS: BP 158/65
[2017-04-27 06:33] LABS: MEAN CORPUSCULAR HEMOGLOBIN 30.3 pg (27.0-33.0); MEAN CORPUSCULAR HGB CONC 33.3 g/dl (32.0-36.5); MEAN CORPUSCULAR VOLUME 91.2 fl (80.0-96.0); RED CELL DISTRIBUTION WIDTH 15.5 % (11.5-14.5); WHITE BLOOD COUNT 5.8 K/mm3 (4.0-10.0)
[2017-04-27 06:58] LABS: ALBUMIN 3.1 GM/DL (3.2-5.2); ALBUMIN/GLOBULIN RATIO 0.86 (1.00-1.93); ALKALINE PHOSPHATASE 69 U/L (45-117); ALT/SGPT 21 U/L (12-78); ANION GAP 7 MEQ/L (8-16); AST/SGOT 19 U/L (15-37); BILIRUBIN,TOTAL 0.5 MG/DL (0.2-1.0); BLOOD UREA NITROGEN 20 MG/DL (7-18); CALCIUM LEVEL 8.8 MG/DL (8.8-10.2); CARBON DIOXIDE LEVEL 28 MEQ/L (21-32); CHLORIDE LEVEL 105 MEQ/L (98-107); CREATININE FOR GFR 0.79 MG/DL (0.55-1.02); GLOMERULAR FILTRATION RATE > 60.0 (>32); GLUCOSE, FASTING 160 MG/DL (83-110); POTASSIUM SERUM 4.2 MEQ/L (3.5-5.1); SODIUM LEVEL 140 MEQ/L (136-145); TOTAL PROTEIN 6.7 GM/DL (6.4-8.2)
[2017-04-27] MEDS: BUDESONIDE 0.25 MG/2 ML INHALATION SUSPENSION INH SCH ×2 (07:07→20:27)
[2017-04-27] MEDS: predniSONE 20 MG TAB PO SCH ×2 (08:48→21:03)
[2017-04-27] MEDS: ALPRAZolam 0.25 MG TAB PO PRN ×2 (08:48→18:00)
[2017-04-27] MEDS: CLOPIDOGREL 75 MG TAB PO SCH (08:49)
[2017-04-27] MEDS: ATORVASTATIN 20 MG TAB PO SCH (08:49)
[2017-04-27] MEDS: LISINOPRIL 10 MG TAB PO SCH (08:49)
[2017-04-27] MEDS: METOPROLOL TART 12.5 MG PER 1/2 TAB PO SCH ×2 (08:49→21:04)
[2017-04-27] MEDS: ASPIRIN 81 MG ENTERIC TAB PO SCH (08:49)
[2017-04-27 14:00] VITALS: BP 127/58
--- NOTE | 2017-04-27 15:18 | IPNPDOC ---
Subjective Date Seen The patient was seen on 04/27/17. Subjective Chief Complaint/HPI The patient is a 81-year-old female admitted with a reason for visit of SOB. Constitutional: Denies: Chills, Fever, Night Sweats Pulmonary: Reports: Dyspnea Cardiovascular: Denies: Chest Pain, Palpitations, Orthopnea, Paroxysmal Noc. Dyspnea, Lt Headedness Objective Physical Examination General Exam: Positive: No Acute Distress Eye Exam: Positive: PERRLA Chest Exam: Positive: Diminished Heart Exam: Positive: Rate Normal, Regular Rhythm, Normal S1, Normal S2, Negative: Murmurs, Rubs Abdomen Exam: Positive: Normal bowel sounds, Soft, Negative: Tenderness, Hepatospenomegaly Extremity Exam: Positive: Normal pulses, Negative: Clubbing, Cyanosis, Edema Assessment /Plan Problems (1) COPD (chronic obstructive pulmonary disease) Status: Acute Problem Text: * continue steroids, duonebs, Pulmicort * continue oxygen (2) Anxiety Status: Chronic (3) CAD (coronary artery disease) Status: Chronic (4) HTN (hypertension) Status: Chronic (5) Dyslipidemia Status: Chronic (6) TIA (transient ischemic attack) Status: Chronic Plan/VTE VTE Prophylaxis Ordered?: Yes VS, I&O, 24H, Fishbone Vital Signs/I&O Vital Signs Date Time Temp Pulse Resp B/P (MAP) Pulse Ox O2 Delivery O2 Flow Rate FiO2 04/27/17 08:49 97 158/65 04/27/17 08:01 Nasal Cannula 2.0 04/27/17 06:00 99.3 20 97 I&O- Last 24 Hours up to 6 AM 04/27/17 06:00 Intake Total 480 ml Output Total 500 ml Balance -20 ml Laboratory Data 24H LABS Laboratory Tests 2 04/27/17 06:25: Anion Gap 7L, Glomerular Filtration Rate > 60.0, Blood Urea Nitrogen 20H, Creatinine 0.79, Sodium Level 140, Potassium Level 4.2, Chloride Level 105, Carbon Dioxide Level 28, Calcium Level 8.8, Aspartate Amino Transf (AST/SGOT) 19 , Alanine Aminotransferase (ALT/SGPT) 21, Alkaline Phosphatase 69, Total Bilirubin 0.5, Total Protein 6.7, Albumin 3.1L, Magnesium Level 2.0, Albumin/ Globulin Ratio 0.86L CBC/BMP Laboratory Tests 04/27/17 06:25 Red Blood Count 3.14 L, Mean Corpuscular Volume 91.2, Mean Corpuscular Hemoglobin 30.3, Mean Corpuscular Hemoglobin Concent 33.3, Red Cell Distribution Width 15.5 H, Calcium Level 8.8, Aspartate Amino Transf (AST/SGOT) 19, Alanine Aminotransferase (ALT/SGPT) 21, Alkaline Phosphatase 69, Total Bilirubin 0.5, Total Protein 6.7, Albumin 3.1 L Microbiology Microbiology 04/26/17 Blood Culture - Preliminary, Resulted No growth after 24 hours . All specim... 04/26/17 Blood Culture - Preliminary, Resulted No growth after 24 hours . All specim... OLENA MEJÍA DO Apr 27, 2017 15:18
[2017-04-27] MEDS: DEXTROMETHORPHAN 60MG/10ML SUSP 90ML BTL(DELSYM) PO PRN (18:00)
[2017-04-27 22:00] VITALS: BP 120/58
[2017-04-28] MEDS: IPRATROPIUM 0.5MG/ALBUTEROL 2.5MG INH SOL UD 3ML (DUONEB)(J7620) NEB SCH ×4 (00:42→19:46)
[2017-04-28 05:40] VITALS: O2SAT 96
[2017-04-28 06:00] VITALS: BP 140/63
[2017-04-28 06:47] LABS: MEAN CORPUSCULAR HEMOGLOBIN 30.1 pg (27.0-33.0); MEAN CORPUSCULAR HGB CONC 32.6 g/dl (32.0-36.5); MEAN CORPUSCULAR VOLUME 92.2 fl (80.0-96.0); RED CELL DISTRIBUTION WIDTH 15.7 % (11.5-14.5); WHITE BLOOD COUNT 9.4 K/mm3 (4.0-10.0)
[2017-04-28 07:01] LABS: ALBUMIN 3.1 GM/DL (3.2-5.2); ALBUMIN/GLOBULIN RATIO 0.82 (1.00-1.93); ALKALINE PHOSPHATASE 75 U/L (45-117); ALT/SGPT 22 U/L (12-78); ANION GAP 8 MEQ/L (8-16); AST/SGOT 19 U/L (15-37); BILIRUBIN,TOTAL 0.4 MG/DL (0.2-1.0); BLOOD UREA NITROGEN 23 MG/DL (7-18); CALCIUM LEVEL 8.8 MG/DL (8.8-10.2); CARBON DIOXIDE LEVEL 27 MEQ/L (21-32); CHLORIDE LEVEL 105 MEQ/L (98-107); CREATININE FOR GFR 0.76 MG/DL (0.55-1.02); GLOMERULAR FILTRATION RATE > 60.0 (>32); GLUCOSE, FASTING 150 MG/DL (83-110); MAGNESIUM LEVEL 2.3 MG/DL (1.8-2.4); POTASSIUM SERUM 4.3 MEQ/L (3.5-5.1); SODIUM LEVEL 140 MEQ/L (136-145); TOTAL PROTEIN 6.9 GM/DL (6.4-8.2)
[2017-04-28] MEDS: BUDESONIDE 0.25 MG/2 ML INHALATION SUSPENSION INH SCH ×2 (07:04→19:46)
[2017-04-28] MEDS: TIOTROPIUM INHALER/CAPSULE (SPIRIVA) INH SCH (08:00)
[2017-04-28] MEDS: ATORVASTATIN 20 MG TAB PO SCH (09:50)
[2017-04-28] MEDS: METOPROLOL TART 12.5 MG PER 1/2 TAB PO SCH ×2 (09:51→21:20)
[2017-04-28] MEDS: LISINOPRIL 10 MG TAB PO SCH (09:51)
[2017-04-28] MEDS: predniSONE 20 MG TAB PO SCH ×2 (09:51→21:21)
[2017-04-28] MEDS: ASPIRIN 81 MG ENTERIC TAB PO SCH (09:51)
[2017-04-28] MEDS: CLOPIDOGREL 75 MG TAB PO SCH (09:51)
[2017-04-28] MEDS: ALPRAZolam 0.25 MG TAB PO PRN (12:36)
[2017-04-28 13:03] VITALS: O2SAT 96
[2017-04-28] MEDS ORDERED: ONDANSETRON 4 MG ORAL DISINTEGRATING TAB (S0181) PO PRN (13:30)
[2017-04-28 14:00] VITALS: BP 151/73
--- NOTE | 2017-04-28 18:15 | IPNPDOC ---
Subjective Date Seen The patient was seen on 04/28/17. Subjective Chief Complaint/HPI The patient is a 81-year-old female admitted with a reason for visit of SOB. Constitutional: Denies: Chills, Fever, Night Sweats Pulmonary: Reports: Dyspnea, Cough Cardiovascular: Denies: Chest Pain, Palpitations, Orthopnea, Paroxysmal Noc. Dyspnea, Lt Headedness Gastrointestinal: Denies: Nausea, Vomiting, Abdominal Pain, Diarrhea, Constipation Objective Physical Examination General Exam: Positive: No Acute Distress Eye Exam: Positive: PERRLA Chest Exam: Positive: Diminished Heart Exam: Positive: Rate Normal, Regular Rhythm, Normal S1, Normal S2, Negative: Murmurs, Rubs Abdomen Exam: Positive: Normal bowel sounds, Soft, Negative: Tenderness, Hepatospenomegaly Extremity Exam: Positive: Normal pulses, Negative: Clubbing, Cyanosis, Edema Assessment /Plan Problems (1) COPD (chronic obstructive pulmonary disease) Status: Acute Problem Text: * continue steroids, duonebs, Pulmicort * continue oxygen * pt continues to complain of shortness of breath * will consult dr Justice (2) Anxiety Status: Chronic Problem Text: * xanax as needed for anxiety (3) CAD (coronary artery disease) Status: Chronic (4) HTN (hypertension) Status: Chronic (5) Dyslipidemia Status: Chronic (6) TIA (transient ischemic attack) Status: Chronic Plan/VTE VTE Prophylaxis Ordered?: Yes VS, I&O, 24H, Fishbone Vital Signs/I&O Vital Signs Date Time Temp Pulse Resp B/P (MAP) Pulse Ox O2 Delivery O2 Flow Rate FiO2 04/28/17 14:00 99.3 95 18 151/73 (99) 98 Nasal Cannula 1.0 I&O- Last 24 Hours up to 6 AM 04/28/17 06:00 Intake Total 720 ml Output Total 0 ml Balance 720 ml Laboratory Data 24H LABS Laboratory Tests 2 04/28/17 06:19: Anion Gap 8, Glomerular Filtration Rate > 60.0, Blood Urea Nitrogen 23H, Creatinine 0.76, Sodium Level 140, Potassium Level 4.3, Chloride Level 105, Carbon Dioxide Level 27, Calcium Level 8.8, Aspartate Amino Transf (AST/SGOT) 19 , Alanine Aminotransferase (ALT/SGPT) 22, Alkaline Phosphatase 75, Total Bilirubin 0.4, Total Protein 6.9, Albumin 3.1L, Magnesium Level 2.3, Albumin/ Globulin Ratio 0.82L CBC/BMP Laboratory Tests 04/28/17 06:19 Red Blood Count 3.30 L, Mean Corpuscular Volume 92.2, Mean Corpuscular Hemoglobin 30.1, Mean Corpuscular Hemoglobin Concent 32.6, Red Cell Distribution Width 15.7 H, Calcium Level 8.8, Aspartate Amino Transf (AST/SGOT) 19, Alanine Aminotransferase (ALT/SGPT) 22, Alkaline Phosphatase 75, Total Bilirubin 0.4, Total Protein 6.9, Albumin 3.1 L Microbiology Microbiology 04/26/17 Blood Culture - Preliminary, Resulted No Growth after 48 hours. All Specime... 04/26/17 Blood Culture - Preliminary, Resulted No Growth after 48 hours. All Specime... OLENA MEJÍA DO Apr 28, 2017 18:15
[2017-04-28] MEDS: SIMETHICONE 80 MG CHEW TAB PO PRN (18:39)
[2017-04-28] MEDS ORDERED: MIRALAX *UNIT DOSE* 17GM PACKET PO PRN (20:45)
[2017-04-28 20:56] VITALS: O2SAT 96
[2017-04-28] MEDS: FUROSEMIDE 40 MG TAB PO SCH (21:21)
[2017-04-28 22:00] VITALS: BP 141/63
[2017-04-29] MEDS: IPRATROPIUM 0.5MG/ALBUTEROL 2.5MG INH SOL UD 3ML (DUONEB)(J7620) NEB SCH ×5 (02:00→23:53)
[2017-04-29 06:00] VITALS: BP_SYST 138; BP_SYST 141; BP_DIAS 62; BP_DIAS 63
[2017-04-29 07:12] LABS: MEAN CORPUSCULAR HEMOGLOBIN 30.6 pg (27.0-33.0); MEAN CORPUSCULAR HGB CONC 33.5 g/dl (32.0-36.5); MEAN CORPUSCULAR VOLUME 91.3 fl (80.0-96.0); RED CELL DISTRIBUTION WIDTH 15.6 % (11.5-14.5); WHITE BLOOD COUNT 15.2 K/mm3 (4.0-10.0)
[2017-04-29 07:18] LABS: ALBUMIN 3.2 GM/DL (3.2-5.2); ALBUMIN/GLOBULIN RATIO 0.89 (1.00-1.93); ALKALINE PHOSPHATASE 74 U/L (45-117); ALT/SGPT 31 U/L (12-78); ANION GAP 8 MEQ/L (8-16); AST/SGOT 23 U/L (15-37); BILIRUBIN,TOTAL 0.6 MG/DL (0.2-1.0); BLOOD UREA NITROGEN 31 MG/DL (7-18); CALCIUM LEVEL 8.7 MG/DL (8.8-10.2); CARBON DIOXIDE LEVEL 30 MEQ/L (21-32); CHLORIDE LEVEL 102 MEQ/L (98-107); CREATININE FOR GFR 0.94 MG/DL (0.55-1.02); GLOMERULAR FILTRATION RATE > 60.0 (>32); GLUCOSE, FASTING 140 MG/DL (83-110); MAGNESIUM LEVEL 2.4 MG/DL (1.8-2.4); PHOSPHORUS LEVEL 3.5 MG/DL (2.5-4.9); POTASSIUM SERUM 4.2 MEQ/L (3.5-5.1); SODIUM LEVEL 140 MEQ/L (136-145); TOTAL PROTEIN 6.8 GM/DL (6.4-8.2)
--- NOTE | 2017-04-29 07:28 | IPNPDOC ---
Subjective Date Seen The patient was seen on 04/29/17. Subjective Chief Complaint/HPI The patient is a 81-year-old female admitted with a reason for visit of SOB. Events since last encounter pt seen and examined still sleepy but in no distress, she denies any acute complains no overnight events Objective Physical Examination General Exam: Positive: No Acute Distress Eye Exam: Positive: PERRLA Chest Exam: Positive: Diminished Heart Exam: Positive: Rate Normal, Regular Rhythm, Normal S1, Normal S2, Negative: Murmurs, Rubs Abdomen Exam: Positive: Normal bowel sounds, Soft, Negative: Tenderness, Hepatospenomegaly Extremity Exam: Positive: Normal pulses, Negative: Clubbing, Cyanosis, Edema Assessment /Plan Problems (1) Respiratory failure Status: Acute Response to Treatment: Improving Problem Text: * likely multifactorial, pt has chronic lung disease, * she was evaluated by Dr Justice yesterday who thought she may be fluid overloaded * she was started on lasix 40mg bid and echo is ordered * will await results (2) COPD (chronic obstructive pulmonary disease) Status: Acute Problem Text: * continue steroids, duonebs, Pulmicort * continue oxygen * pt continues to complain of shortness of breath * Pt was seen by Dr Justice yesterday who felt pt may be fluid overloaded (3) Anxiety Status: Chronic Problem Text: * xanax as needed for anxiety (4) CAD (coronary artery disease) Status: Chronic (5) HTN (hypertension) Status: Chronic Problem Text: * continue metoprolol and lisinopril * blood pressure stable (6) Dyslipidemia Status: Chronic Problem Text: * continue statin 40mg (7) TIA (transient ischemic attack) Status: Chronic Problem Text: * continue ASA, statin Plan/VTE VTE Prophylaxis Ordered?: Yes VS, I&O, 24H, Fishbone Vital Signs/I&O Vital Signs Date Time Temp Pulse Resp B/P (MAP) Pulse Ox O2 Delivery O2 Flow Rate FiO2 04/29/17 06:00 99.1 84 20 138/62 (87) 97 Nasal Cannula 1.0 I&O- Last 24 Hours up to 6 AM 04/29/17 06:00 Intake Total 1800 ml Output Total 0 ml Balance 1800 ml Laboratory Data 24H LABS Laboratory Tests 2 04/29/17 06:26: Anion Gap 8, Glomerular Filtration Rate > 60.0, Blood Urea Nitrogen 31H, Creatinine 0.94, Sodium Level 140, Potassium Level 4.2, Chloride Level 102, Carbon Dioxide Level 30, Calcium Level 8.7L, Phosphorus Level 3.5, Aspartate Amino Transf (AST/SGOT) 23, Alanine Aminotransferase (ALT/SGPT) 31, Alkaline Phosphatase 74, Total Bilirubin 0.6, Total Protein 6.8, Albumin 3.2, Magnesium Level 2.4, Albumin/Globulin Ratio 0.89L CBC/BMP Laboratory Tests 04/29/17 06:26 Red Blood Count 3.41 L, Mean Corpuscular Volume 91.3, Mean Corpuscular Hemoglobin 30.6, Mean Corpuscular Hemoglobin Concent 33.5, Red Cell Distribution Width 15.6 H, Calcium Level 8.7 L, Phosphorus Level 3.5, Aspartate Amino Transf (AST/SGOT) 23, Alanine Aminotransferase (ALT/SGPT) 31, Alkaline Phosphatase 74, Total Bilirubin 0.6, Total Protein 6.8, Albumin 3.2 Microbiology Microbiology 04/26/17 Blood Culture - Preliminary, Resulted No Growth after 72 hours. All specime... 04/26/17 Blood Culture - Preliminary, Resulted No Growth after 72 hours. All specime... OLENA MEJÍA DO Apr 29, 2017 07:28
[2017-04-29] MEDS: TIOTROPIUM INHALER/CAPSULE (SPIRIVA) INH SCH (07:55)
[2017-04-29] MEDS: BUDESONIDE 0.25 MG/2 ML INHALATION SUSPENSION INH SCH ×2 (07:55→19:18)
[2017-04-29] MEDS: ASPIRIN 81 MG ENTERIC TAB PO SCH (09:48)
[2017-04-29] MEDS: ATORVASTATIN 20 MG TAB PO SCH (09:48)
[2017-04-29] MEDS: SIMETHICONE 80 MG CHEW TAB PO PRN (09:48)
[2017-04-29] MEDS: FUROSEMIDE 40 MG TAB PO SCH ×2 (09:48→20:40)
[2017-04-29] MEDS: CLOPIDOGREL 75 MG TAB PO SCH (09:49)
[2017-04-29] MEDS: METOPROLOL TART 12.5 MG PER 1/2 TAB PO SCH ×2 (09:49→20:45)
[2017-04-29] MEDS: LISINOPRIL 10 MG TAB PO SCH (09:49)
[2017-04-29] MEDS: predniSONE 20 MG TAB PO SCH (09:49)
[2017-04-29] MEDS: IPRATROPIUM 0.5MG/ALBUTEROL 2.5MG INH SOL UD 3ML (DUONEB)(J7620) NEB PRN ×2 (11:54→18:14)
[2017-04-29] MEDS: guaiFENesin ER 600 MG TAB PO SCH ×2 (12:51→20:40)
[2017-04-29 14:00] VITALS: BP 123/58
[2017-04-29 19:10] VITALS: O2SAT 93; O2SAT 96
[2017-04-29] MEDS: DEXTROMETHORPHAN 60MG/10ML SUSP 90ML BTL(DELSYM) PO PRN (20:41)
[2017-04-29 22:00] VITALS: BP 132/62
[2017-04-29 23:53] VITALS: O2SAT 96
[2017-04-30] VITALS (7 sets, daily range): BP systolic 119–127; BP diastolic 56–58; O2SAT 92–98
[2017-04-30] MEDS: IPRATROPIUM 0.5MG/ALBUTEROL 2.5MG INH SOL UD 3ML (DUONEB)(J7620) NEB PRN (05:48)
[2017-04-30 06:53] LABS: MEAN CORPUSCULAR HGB CONC 32.7 g/dl (32.0-36.5); MEAN CORPUSCULAR VOLUME 91.8 fl (80.0-96.0); RED CELL DISTRIBUTION WIDTH 15.2 % (11.5-14.5); WHITE BLOOD COUNT 11.6 K/mm3 (4.0-10.0)
[2017-04-30 07:12] LABS: ALBUMIN/GLOBULIN RATIO 0.94 (1.00-1.93); ALKALINE PHOSPHATASE 70 U/L (45-117); ALT/SGPT 24 U/L (12-78); ANION GAP 6 MEQ/L (8-16); AST/SGOT 19 U/L (15-37); BILIRUBIN,TOTAL 0.5 MG/DL (0.2-1.0); BLOOD UREA NITROGEN 34 MG/DL (7-18); CALCIUM LEVEL 8.2 MG/DL (8.8-10.2); CARBON DIOXIDE LEVEL 33 MEQ/L (21-32); CHLORIDE LEVEL 101 MEQ/L (98-107); CREATININE FOR GFR 0.88 MG/DL (0.55-1.02); GLOMERULAR FILTRATION RATE > 60.0 (>32); GLUCOSE, FASTING 83 MG/DL (83-110); MAGNESIUM LEVEL 2.4 MG/DL (1.8-2.4); PHOSPHORUS LEVEL 2.5 MG/DL (2.5-4.9); POTASSIUM SERUM 3.5 MEQ/L (3.5-5.1); SODIUM LEVEL 140 MEQ/L (136-145); TOTAL PROTEIN 6.2 GM/DL (6.4-8.2)
[2017-04-30] MEDS: IPRATROPIUM 0.5MG/ALBUTEROL 2.5MG INH SOL UD 3ML (DUONEB)(J7620) NEB SCH ×3 (07:33→19:27)
[2017-04-30] MEDS: BUDESONIDE 0.25 MG/2 ML INHALATION SUSPENSION INH SCH ×2 (07:34→19:27)
[2017-04-30] MEDS: TIOTROPIUM INHALER/CAPSULE (SPIRIVA) INH SCH (07:34)
[2017-04-30] MEDS: METOPROLOL TART 12.5 MG PER 1/2 TAB PO SCH ×2 (09:36→21:49)
[2017-04-30] MEDS: guaiFENesin ER 600 MG TAB PO SCH ×2 (09:37→21:49)
[2017-04-30] MEDS: ATORVASTATIN 20 MG TAB PO SCH (09:37)
[2017-04-30] MEDS: FUROSEMIDE 40 MG TAB PO SCH (09:38)
[2017-04-30] MEDS: CLOPIDOGREL 75 MG TAB PO SCH (09:38)
[2017-04-30] MEDS: LISINOPRIL 10 MG TAB PO SCH (09:38)
[2017-04-30] MEDS: predniSONE 20 MG TAB PO SCH (09:38)
[2017-04-30] MEDS: ASPIRIN 81 MG ENTERIC TAB PO SCH (09:39)
[2017-04-30] MEDS: ALPRAZolam 0.25 MG TAB PO PRN (09:39)
--- NOTE | 2017-04-30 10:35 | IPN ---
DATE: 04/30/2017 Harmony is seen in [facility], rounding for the hospitalist group. She is still having some burning discomfort in her chest with inspiration. It is not exertional. It does not radiate. She has a history of respiratory failure, chronic obstructive pulmonary disease (COPD), coronary artery disease, hypertension, hyperlipidemia, history of cerebral vascular disease with a transient ischemic attack (TIA). She is being treated for presumed volume overload. Echocardiogram has been ordered. Results are still pending. Notes indicate that she is being treated for volume overload but she has had three liters net gain in fluid with positive intake/output of over three liters over the last two days. PHYSICAL EXAMINATION: Blood pressure 127/58, pulse of 90, respiratory rate 18, 94% oxygen saturation. She was resting comfortably. There is no jugular venous distention (JVD). Decreased breath sounds noted. HEART: Regular rate and rhythm. No murmur. ABDOMEN: Soft, nontender. No masses. No peripheral edema. LABORATORY DATA: White count 11.6, hemoglobin 10.2, platelets 331. Sodium 140, potassium 3.5, BUN 34, creatinine 0.8, glucose 83. IMPRESSION: 1. Volume overload. She is not really diuresing much. In fact, she has gained three liters over the last two days. Stop the oral Lasix, begin IV Lasix sliding scale and maintain a net diuresis of a liter per day. Clinically, I do not think she has that much volume to get rid of. We need to keep a close eye on her renal function while diuresing her. 2. Chronic obstructive pulmonary disease (COPD). Continue current regimen. 3. Cerebral vascular disease. Continue antiplatelet medication and statin therapy.
--- NOTE | 2017-04-30 14:14 | ECHO ---
DATE OF PROCEDURE: 04/29/2017 REFERRING PROVIDER: PATIENT LOCATION: Room 5133 REASON FOR ECHOCARDIOGRAM: Heart failure, unspecified. 2D MEASUREMENT: IVS - 1.0 cm LV - 3.7 cm LVPW - 1.1 cm LA - 2.9 cm Aorta - 2.2 cm DOPPLER MEASUREMENT: Peak velocity across the aortic valve 1.6 m/s Peak velocity across the LVOT - 1.5 m/s Mitral E - 0.80, Mitral A - 1.1 with a ration of 0.7 Maximum tricuspid valve velocity 3.1 m/s 2D COMMENTS: 1. Technically limited study due to poor acoustic window. 2. Normal left ventricular size, wall thickness and global left ventricular systolic function. Left ventricular systolic ejection fracture is estimated at 65-70%. 3. Normal left atrium. The right atrium and the right ventricle appear to be mildly enlarged in limited views. 4. The atrial septum appear to normal without evidence of defect or shunt. 5. Normal aortic root. 6. No pericardial effusion seen. 7. Minimally calcified aortic valve with normal leaflet excursion. Mildly calcified mitral annulus with normal anterior mitral valve leaflet motion. Normal tricuspid valve. The pulmonic valve was not well visualized. 8. The inferior vena cava was not well visualized. DOPPLER: It detects moderate tricuspid regurgitation. The calculated pulmonary artery systolic pressure varies between 40-50 mmHg. The maximum tricuspid valve velocity was 3.1 m/s. Abnormal relaxation pattern was noted across the mitral valve leaflets as well as the mitral valve annulus consistent with grade 1 left ventricular diastolic dysfunction. IMPRESSION: 1. Technically limited study due to poor acoustic window. 2. Normal global left ventricular systolic function. There are features of left ventricular diastolic dysfunction, grade 1. 3. Aortic valve sclerosis without stenosis or aortic regurgitation. 4. Mitral annulus calcification without any associated mitral stenosis or mitral regurgitation. 5. Moderate tricuspid regurgitation with moderate pulmonary hypertension. The right atrium and the right ventricle appear to be mildly enlarged. 6. Last echocardiogram was on 10/18/2016 and at that time, severe pulmonary hypertension was reported. JESSICAD
[2017-04-30] MEDS: FUROSEMIDE 100 MG/10 ML VIAL (J1940) IV SCH ×2 (14:48→18:32)
[2017-05-01] MEDS: FUROSEMIDE 100 MG/10 ML VIAL (J1940) IV SCH ×4 (00:46→18:00)
[2017-05-01] MEDS: IPRATROPIUM 0.5MG/ALBUTEROL 2.5MG INH SOL UD 3ML (DUONEB)(J7620) NEB SCH ×4 (02:00→20:34)
[2017-05-01 06:00] VITALS: BP 116/60
[2017-05-01 06:57] LABS: MEAN CORPUSCULAR HGB CONC 33.7 g/dl (32.0-36.5); MEAN CORPUSCULAR VOLUME 92.3 fl (80.0-96.0); RED CELL DISTRIBUTION WIDTH 15.7 % (11.5-14.5); WHITE BLOOD COUNT 11.2 K/mm3 (4.0-10.0)
[2017-05-01] MEDS: TIOTROPIUM INHALER/CAPSULE (SPIRIVA) INH SCH (07:13)
[2017-05-01] MEDS: BUDESONIDE 0.25 MG/2 ML INHALATION SUSPENSION INH SCH ×2 (07:13→20:34)
[2017-05-01 07:15] LABS: ALBUMIN 3.3 GM/DL (3.2-5.2); ALBUMIN/GLOBULIN RATIO 0.94 (1.00-1.93); BILIRUBIN,TOTAL 0.5 MG/DL (0.2-1.0); CALCIUM LEVEL 8.4 MG/DL (8.8-10.2); CREATININE FOR GFR 1.03 MG/DL (0.55-1.02); GLOMERULAR FILTRATION RATE 54.5 (>32); MAGNESIUM LEVEL 2.2 MG/DL (1.8-2.4); POTASSIUM SERUM 3.4 MEQ/L (3.5-5.1); TOTAL PROTEIN 6.8 GM/DL (6.4-8.2)
[2017-05-01] MEDS: guaiFENesin ER 600 MG TAB PO SCH ×2 (08:58→21:00)
[2017-05-01] MEDS: METOPROLOL TART 12.5 MG PER 1/2 TAB PO SCH ×2 (08:59→21:20)
[2017-05-01] MEDS: ATORVASTATIN 20 MG TAB PO SCH (08:59)
[2017-05-01] MEDS: predniSONE 20 MG TAB PO SCH (08:59)
[2017-05-01] MEDS: CLOPIDOGREL 75 MG TAB PO SCH (09:00)
[2017-05-01] MEDS: LISINOPRIL 10 MG TAB PO SCH (09:00)
[2017-05-01] MEDS: ASPIRIN 81 MG ENTERIC TAB PO SCH (09:00)
[2017-05-01] MEDS: IPRATROPIUM 0.5MG/ALBUTEROL 2.5MG INH SOL UD 3ML (DUONEB)(J7620) NEB PRN (11:19)
--- NOTE | 2017-05-01 12:16 | REP ---
Clinical: Hypoxemia. Technique: PA and lateral. Comparison: 04/26/2017. Findings: Chronic emphysematous and interstitial changes are appreciated with chronic-appearing blunting to the diaphragmatic surfaces. Minimal basilar atelectasis and small pleural effusion cannot definitively be excluded. Mediastinum and cardiac silhouette stable. Evidence for prior sternotomy. Skeletal structures demonstrate degenerative changes primarily involving the thoracic spine and bilateral shoulders. Impression: Chronic-appearing changes as described above. Trace basilar atelectasis and possible small pleural reaction/effusion cannot be excluded. Signed by Jacobo Matrinez MD 05/01/2017 11:16 A
--- NOTE | 2017-05-01 12:57 | IPN ---
DATE: 05/01/2017 Harmony seems to be less short of breath since we have diuresed her. She had a good diuresis. She put out a liter yesterday and 600 mL today. She still feels short of breath, but I expect that is her baseline. Her chest x-ray did not show anything remarkable. PHYSICAL EXAMINATION: 116/60, pulse of 90, 92% oxygen saturation on 2 liters. GENERAL APPEARANCE: She is resting comfortably. There is no jugular venous distention (JVD). Lung fibrotic rales both bases. Heart regular rate and rhythm. Abdomen soft, nontender. Trace peripheral edema. LABORATORIES: CBC stable. BUN and creatinine is up to 43/1.0. Potassium is 3.4. PLAN: 1. Volume overload. Continue IV Lasix. I think by tomorrow she can go back on her home dose of Lasix and probably could be ready for discharge. She is eager to go home tomorrow. Lab work to monitor renal function ordered for tomorrow. 2. Chronic obstructive pulmonary disease (COPD). Continue supplemental oxygen. Continue current bronchodilator. 3. Cerebrovascular disease. Continue antiplatelet medications and statin therapy. 4. Hypokalemia. Supplemental potassium has been ordered.
[2017-05-01] MEDS ORDERED: POTASSIUM CHLORIDE 10 MEQ SR TABLET PO ONE (13:00)
[2017-05-01 14:00] VITALS: BP 115/55
[2017-05-01] MEDS: SIMETHICONE 80 MG CHEW TAB PO PRN ×2 (14:46→20:31)
[2017-05-01 20:26] VITALS: O2SAT 96
[2017-05-01 22:00] VITALS: BP 109/55
[2017-05-02] MEDS: ALPRAZolam 0.25 MG TAB PO PRN (00:08)
[2017-05-02] MEDS: FUROSEMIDE 100 MG/10 ML VIAL (J1940) IV SCH ×2 (00:18→05:20)
[2017-05-02 00:56] VITALS: O2SAT 94
[2017-05-02] MEDS: IPRATROPIUM 0.5MG/ALBUTEROL 2.5MG INH SOL UD 3ML (DUONEB)(J7620) NEB SCH ×3 (01:03→14:00)
[2017-05-02 06:00] VITALS: BP 136/60
[2017-05-02] MEDS: BUDESONIDE 0.25 MG/2 ML INHALATION SUSPENSION INH SCH (07:11)
[2017-05-02] MEDS: TIOTROPIUM INHALER/CAPSULE (SPIRIVA) INH SCH (07:11)
[2017-05-02 07:13] LABS: MEAN CORPUSCULAR HEMOGLOBIN 29.9 pg (27.0-33.0); MEAN CORPUSCULAR HGB CONC 32.6 g/dl (32.0-36.5); MEAN CORPUSCULAR VOLUME 91.8 fl (80.0-96.0); RED CELL DISTRIBUTION WIDTH 15.6 % (11.5-14.5); WHITE BLOOD COUNT 11.2 K/mm3 (4.0-10.0)
[2017-05-02 07:25] LABS: ALBUMIN 3.2 GM/DL (3.2-5.2); ALBUMIN/GLOBULIN RATIO 0.91 (1.00-1.93); BILIRUBIN,TOTAL 0.5 MG/DL (0.2-1.0); CALCIUM LEVEL 8.4 MG/DL (8.8-10.2); CREATININE FOR GFR 0.99 MG/DL (0.55-1.02); MAGNESIUM LEVEL 2.3 MG/DL (1.8-2.4); POTASSIUM SERUM 3.6 MEQ/L (3.5-5.1); TOTAL PROTEIN 6.7 GM/DL (6.4-8.2)
[2017-05-02] MEDS: guaiFENesin ER 600 MG TAB PO SCH (09:00)
[2017-05-02] MEDS: LISINOPRIL 10 MG TAB PO SCH (09:00)
[2017-05-02] MEDS: predniSONE 20 MG TAB PO SCH (09:11)
[2017-05-02] MEDS: ATORVASTATIN 20 MG TAB PO SCH (09:12)
[2017-05-02 09:13] VITALS: BP 109/52
[2017-05-02] MEDS: CLOPIDOGREL 75 MG TAB PO SCH (09:13)
[2017-05-02] MEDS: METOPROLOL TART 12.5 MG PER 1/2 TAB PO SCH (09:13)
[2017-05-02] MEDS: ASPIRIN 81 MG ENTERIC TAB PO SCH (09:15)
[2017-05-02] MEDS ORDERED: PRED10TA PO (11:16)
[2017-05-02] MEDS: IPRATROPIUM 0.5MG/ALBUTEROL 2.5MG INH SOL UD 3ML (DUONEB)(J7620) NEB PRN (11:45)
--- NOTE | 2017-05-02 15:38 | DS.PDOC ---
Discharge Summary General Date of Admission Apr 26, 2017 at 11:04 Date of Discharge 05/02/17 Discharge Summary PROCEDURES PERFORMED DURING STAY: None. ADMITTING DIAGNOSES: 1. . COPD exacerbation 2. . Decompensated congestive heart failure DISCHARGE DIAGNOSES: 1. . COPD exacerbation 2. . Decompensated congestive heart failure COMPLICATIONS/CHIEF COMPLAINT: SOB. HISTORY OF PRESENT ILLNESS: . HOSPITAL COURSE: . 81-year-old female with past medical history of COPD with frequent hospitalizations, pulmonary hypertension, anxiety, dyslipidemia, CAD, and hypertension presented to the ER with a chief complaint of shortness of breath. The patient states that prior to her coming to the hospital she started to feel short of breath while walking across the room, which she is able to do at her baseline. She notes that she tried taking her inhalers and increased her oxygen up to 4 L but still had difficulty breathing. During this time, the patient states that she had been having a cough productive of clear sputum which is her baseline. She denies any fevers, or chills. The patient presented to the hospital for further evaluation and management. A chest x-ray done in the ER revealed changes consistent with chronic COPD. The patient was admitted to the hospitalist service for COPD exacerbation. In addition, the patient was noted to have some mild pleural effusions on x-ray and some lower extremity swelling. The patient was started on IV diuretic therapy for decompensated CHF and nebulizer therapy as well as steroids for her COPD exacerbation. In addition, the patient was seen by pulmonary here in the hospital. Over the ensuing few days the patient's respiratory status significantly improved. The patient has been transitioned to by mouth steroids and diuretics and states that she is feeling back to her baseline. The patient will be discharged home with a tapering dose of steroids and has been advised to follow-up with her primary care physician within one week, and pulmonary within 2-4 weeks. I've advised the patient to return to the ER if her symptoms return or persist. ALLERGIES: Please see below. PHYSICAL EXAMINATION ON DISCHARGE: VITAL SIGNS: Please see below. General Exam: Positive: No Acute Distress Eye Exam: Positive: PERRLA Chest Exam: Positive: Diminished Heart Exam: Positive: Rate Normal, Regular Rhythm, Normal S1, Normal S2, Negative: Murmurs, Rubs Abdomen Exam: Positive: Normal bowel sounds, Soft, Negative: Tenderness, Hepatospenomegaly Extremity Exam: Positive: Normal pulses, Negative: Clubbing, Cyanosis, Edema LABORATORY DATA: Please see below. IMAGING: PORTABLE CHEST: AP portable view of the chest was performed and compared to prior study of 04/14/2017. Scattered fibrotic changes appear stable. There is no definite acute infiltrate. Cardiac silhouette is slightly prominent. There is calcification of the thoracic aorta. The mediastinal silhouette is unchanged. Multiple sternal wires are present. IMPRESSION: Chronic changes. No evidence of acute pulmonary disease. PROGNOSIS: Medically stable ACTIVITY: As tolerated. DIET: . 2 g low sodium diet, a 2 L fluid restrict diet DISCHARGE PLAN: DISPOSITION: Home, Self-Care. DISCHARGE INSTRUCTIONS: 1. . Follow-up with primary care physician within one week 2. . Follow-up with pulmonary within 2-4 weeks 3. . Continue tapering dose of steroids for 6 more days DISCHARGE CONDITION: Stable. TIME SPENT ON DISCHARGE: Greater than 30 minutes. Vital Signs/I&Os Vital Signs Date Time Temp Pulse Resp B/P (MAP) Pulse Ox O2 Delivery O2 Flow Rate FiO2 05/02/17 09:13 112 109/52 05/02/17 08:30 93 Nasal Cannula 1.0 05/02/17 06:00 97.8 14 I&O- Last 24 Hours up to 6 AM 05/02/17 06:00 Intake Total 1380 ml Output Total 2550 ml Balance -1170 ml Laboratory Data Labs 24H Laboratory Tests 2 05/02/17 06:35: Anion Gap 7L, Glomerular Filtration Rate 57.0, Blood Urea Nitrogen 45H, Creatinine 0.99, Sodium Level 137, Potassium Level 3.6, Chloride Level 97L, Carbon Dioxide Level 33H, Calcium Level 8.4L, Aspartate Amino Transf (AST/SGOT) 17, Alanine Aminotransferase (ALT/SGPT) 26, Alkaline Phosphatase 76, Total Bilirubin 0.5, Total Protein 6.7, Albumin 3.2, Magnesium Level 2.3, Albumin/ Globulin Ratio 0.91L CBC/BMP Laboratory Tests 05/02/17 06:35 Red Blood Count 3.78 L, Mean Corpuscular Volume 91.8, Mean Corpuscular Hemoglobin 29.9, Mean Corpuscular Hemoglobin Concent 32.6, Red Cell Distribution Width 15.6 H, Calcium Level 8.4 L, Aspartate Amino Transf (AST/SGOT ) 17, Alanine Aminotransferase (ALT/SGPT) 26, Alkaline Phosphatase 76, Total Bilirubin 0.5, Total Protein 6.7, Albumin 3.2 Microbiology Microbiology 04/26/17 Blood Culture - Final, Complete NO GROWTH AFTER 5 DAYS 04/26/17 Blood Culture - Final, Complete NO GROWTH AFTER 5 DAYS Discharge Medications Scheduled Aspirin (Aspirin) 81 Mg Tab, 81 MG PO DAILY, (Reported) Atorvastatin Calcium (Atorvastatin Calcium) 40 Mg Tab, 40 MG PO DAILY, (Reported ) Calcium/Vitamin D (Calcium 600 + D 600-400 mg-Unit) 1 Tab Tab, 1 TAB PO DAILY, ( Reported) Clopidogrel Bisulfate (Plavix) 75 Mg Tab, 75 MG PO DAILY, (Reported) Lisinopril (Lisinopril) 10 Mg Tab, 10 MG PO DAILY, (Reported) Metoprolol Tartrate (Metoprolol Tartrate) 12.5 Mg Halftab, 12.5 MG PO BID, ( Reported) PATIENT'S SON STATES THAT THE PATIENT IS ONLY TAKING THIS MED WHEN SHE FEELS SHE NEEDS IT. ALSO, DR SAUCEDO WROTE AN RX FOR BISOPROLOL 2.5MG DAILY FROM . METOPROLOL RX WAS WRITTEN BY MITZY FLETCHER ON 10/21/16. PATIENT PICKED UP BISOPROLOL ON 02/07/17 AND THE METOPROLOL ON 02/17/17. UNSURE IF PATIENT HAS POSSIBLY BEEN TAKING BOTH AND UNSURE WHAT PATIENT IS TAKING. WAS DISCHARGED ON FROM THIS HOSPITAL ON METOPROLOL. Prednisone (Prednisone) 10 Mg Tab, 10 MG PO ASDIRECTED Scheduled PRN Albuterol Sulfate (Ventolin Hfa) 200 Puff/8 Gm Aers, 2 PUFF INH Q4H PRN for SHORTNESS OF BREATH, (Reported) Albuterol Sulfate (Albuterol Sulfate) 2.5 Mg/3 Ml Nebu, 2.5 MG INH Q4H PRN for SHORTNESS OF BREATH, (Reported) Alprazolam (Alprazolam) 0.25 Mg Tab, 0.125 MG PO TID PRN for ANXIETY, (Reported) Furosemide (Furosemide) 40 Mg Tab, 40 MG PO DAILY PRN for SWELLING, (Reported) Nitroglycerin (Nitrostat) 0.4 Mg Subl, 0.4 MG SL Q5MP PRN for CHEST PAIN, ( Reported) Allergies Coded Allergies: Levofloxacin (Unverified Allergy, Intermediate, rash, 04/26/17) Lidocaine (Verified Allergy, Mild, RASH, 04/26/17) Procaine (Verified Allergy, Mild, RASH, 04/26/17) HAYLIE CHARLTON MD May 02, 2017 15:38
== END 2017-05-02 14:45 | disposition home or self-care (01) | DRG 189 ==
LOC: EDBD 06:25 → M ED 08:39 → M ED INP 11:04 → M MS5PR 15:05
PROVIDERS: ADMIT Internal Medicine; ATTEND Internal Medicine
DX: J96.01 Acute respiratory failure with hypoxia (principal); J44.1 Chronic obstructive pulmonary disease with (acute) exacerbation; F41.9 Anxiety disorder, unspecified; I25.10 Atherosclerotic heart disease of native coronary artery without angina pectoris; F32.9 Major depressive disorder, single episode, unspecified; I27.2 Other secondary pulmonary hypertension; I11.0 Hypertensive heart disease with heart failure; E78.5 Hyperlipidemia, unspecified; I50.9 Heart failure, unspecified; E87.6 Hypokalemia; Z86.73 Personal history of transient ischemic attack (TIA), and cerebral infarction without residual deficits; Z86.13 Personal history of malaria; Z86.19 Personal history of other infectious and parasitic diseases; Z95.5 Presence of coronary angioplasty implant and graft; Z87.891 Personal history of nicotine dependence; Z88.6 Allergy status to analgesic agent; Z88.1 Allergy status to other antibiotic agents; Z88.8 Allergy status to other drugs, medicaments and biological substances; Z79.82 Long term (current) use of aspirin; Z79.02 Long term (current) use of antithrombotics/antiplatelets; Z79.899 Other long term (current) drug therapy

== ENCOUNTER 2017-05-11 23:18 | Emergency (ER) | payer MEDICARE, OTHER ==
[~2017-05-11] VITALS: Ht 152.4 cm; Wt 50.0 kg
[~2017-05-11 23:18] MED LIST changes: -ALTA10CA3 PO; +ALTA1CAP4 PO; +ASPI1TAB15 PO; -ASPI81TA13 PO; +ASPI81TA24 PO; -ASPI81TA7 PO; -ATOR40TA PO; +ATOR40TA75 PO; -AUGM875T27 PO; +AUGM875T28 PO; -AVEL1TAB PO; +AVEL1TAB3 PO; +AZIT-12 PO; -AZIT250T3 PO; -CALCTAB43 PO; +CALCTAB74 PO; +LEVA1TAB2 PO; -LEVA500T PO; +METO1TAB32 PO; -METO25TA74 PO; +MUCI600T37 PO; +PLAV1TAB2 PO; -PLAV75TA38 PO
[2017-05-11] MEDS ORDERED: IPRATROPIUM 0.5MG/ALBUTEROL 2.5MG INH SOL UD 3ML (DUONEB)(J7620) NEB SCH (23:30)
[2017-05-11] MEDS ORDERED: dexameTHASONE 20 MG/5 ML VIAL (J1100) IV ONE (23:30)
[2017-05-11] MEDS ORDERED: IPRATROPIUM 0.5MG/ALBUTEROL 2.5MG INH SOL UD 3ML (DUONEB)(J7620) NEB ONE (23:45)
[2017-05-12] MEDS ORDERED: KETOROLAC 30 MG/ML VIAL (J1885) IV ONE
[2017-05-12 00:09] LABS: VENOUS BASE EXCESS -0.9 (-2.0-2.0); VENOUS O2 SATURATION 58.5 % (60.0-80.0); VENOUS PARTIAL PRESSURE CO2 44.9 mmHg (38.0-50.0); VENOUS PARTIAL PRESSURE O2 32.9 mmHg (30.0-50.0); VENOUS TOTAL CO2 26.1 MEQ/L (24.0-28.0)
[2017-05-12 00:12] LABS: BASO # 0.1 K/mm3 (0.0-0.2); EOS # 0.3 K/mm3 (0.0-0.50); LARGE UNSTAINED CELL # 0.2 K/mm3 (0.0-0.4); LARGE UNSTAINED CELL % 2.3 % (0.0-4.0); LYMPH # 1.1 K/mm3 (1.5-4.5); LYMPH % 13.2 % (24.0-44.0); MEAN CORPUSCULAR HEMOGLOBIN 29.6 pg (27.0-33.0); MEAN CORPUSCULAR HGB CONC 32.9 g/dl (32.0-36.5); MONO # 0.5 K/mm3 (0.0-0.8); MONO % 6.4 % (0.0-5.0); NEUTROPHILS # 5.3 K/mm3 (1.8-7.7); PLATELET COUNT, AUTOMATED 350 k/mm3 (150-450); RED CELL DISTRIBUTION WIDTH 15.3 % (11.5-14.5); WHITE BLOOD COUNT 7.2 K/mm3 (4.0-10.0)
[2017-05-12 00:35] VITALS: BP 101/52
[2017-05-12 00:35] LABS: ANION GAP 10 MEQ/L (8-16); BLOOD UREA NITROGEN 20 MG/DL (7-18); CALCIUM LEVEL 8.7 MG/DL (8.8-10.2); CARBON DIOXIDE LEVEL 25 MEQ/L (21-32); CHLORIDE LEVEL 103 MEQ/L (98-107); CREATININE FOR GFR 0.85 MG/DL (0.55-1.02); GLOMERULAR FILTRATION RATE > 60.0 (>32); GLUCOSE, FASTING 100 MG/DL (83-110); POTASSIUM SERUM 3.9 MEQ/L (3.5-5.1); SODIUM LEVEL 138 MEQ/L (136-145)
--- NOTE | 2017-05-12 07:50 | REP ---
Clinical: Dyspnea . Comparison: 05/01/2017 . Findings: The mediastinum and cardiac silhouette are stable and within normal limits for portable technique. The lung carbajal demonstrate chronic changes without acute consolidation, effusion, or pneumothorax. Skeletal structures are intact. Impression: No acute cardiopulmonary process appreciated. Signed by Jacobo Martinez MD 05/12/2017 07:41 A
== END 2017-05-12 01:16 | disposition home or self-care (01) ==
LOC: M ED 23:18 → EDBD 23:18 → M ED 05-12 01:16
DX: S29.012A Strain of muscle and tendon of back wall of thorax, initial encounter (principal); J44.9 Chronic obstructive pulmonary disease, unspecified; X58.XXXA Exposure to other specified factors, initial encounter; Y92.89 Other specified places as the place of occurrence of the external cause; Y93.89 Activity, other specified; Y99.8 Other external cause status; I10 Essential (primary) hypertension; I25.10 Atherosclerotic heart disease of native coronary artery without angina pectoris; Z95.5 Presence of coronary angioplasty implant and graft; Z95.1 Presence of aortocoronary bypass graft; Z87.891 Personal history of nicotine dependence; Z99.81 Dependence on supplemental oxygen

== ENCOUNTER 2017-05-13 21:51 | Inpatient (IN) | payer MEDICARE, OTHER ==
[~2017-05-13] VITALS: Ht 152.4 cm; Wt 59.8 kg
[2017-05-13] MEDS ORDERED: IPRATROPIUM 0.5MG/ALBUTEROL 2.5MG INH SOL UD 3ML (DUONEB)(J7620) As Ordered ONE (22:09)
[2017-05-13] MEDS ORDERED: IPRATROPIUM 0.5MG/ALBUTEROL 2.5MG INH SOL UD 3ML (DUONEB)(J7620) NEB ONE (22:15)
[2017-05-13] MEDS ORDERED: dexameTHASONE 20 MG/5 ML VIAL (J1100) IV ONE (22:15)
[2017-05-14 00:02] LABS: BASO % 0.3 % (0.0-1.0); EOS # 0.2 K/mm3 (0.0-0.50); LARGE UNSTAINED CELL % 0.7 % (0.0-4.0); LYMPH # 0.4 K/mm3 (1.5-4.5); LYMPH % 5.8 % (24.0-44.0); MEAN CORPUSCULAR HEMOGLOBIN 28.9 pg (27.0-33.0); MEAN CORPUSCULAR HGB CONC 32.6 g/dl (32.0-36.5); MEAN CORPUSCULAR VOLUME 88.7 fl (80.0-96.0); MONO # 0.2 K/mm3 (0.0-0.8); MONO % 2.9 % (0.0-5.0); NEUTROPHILS # 5.5 K/mm3 (1.8-7.7); NEUTROPHILS % 86.4 % (36.0-66.0); PLATELET COUNT, AUTOMATED 373 k/mm3 (150-450); RED CELL DISTRIBUTION WIDTH 15.5 % (11.5-14.5); WHITE BLOOD COUNT 6.4 K/mm3 (4.0-10.0)
[2017-05-14 00:05] LABS: VENOUS BASE EXCESS -1.6 (-2.0-2.0); VENOUS O2 SATURATION 98.6 % (60.0-80.0); VENOUS PARTIAL PRESSURE CO2 26.4 mmHg (38.0-50.0); VENOUS PARTIAL PRESSURE O2 118.8 mmHg (30.0-50.0); VENOUS STANDARD HCO3 23.2 MEQ/L; VENOUS TOTAL CO2 21.4 MEQ/L (24.0-28.0)
[2017-05-14 00:28] LABS: ANION GAP 9 MEQ/L (8-16); BLOOD UREA NITROGEN 33 MG/DL (7-18); CALCIUM LEVEL 8.6 MG/DL (8.8-10.2); CARBON DIOXIDE LEVEL 24 MEQ/L (21-32); CHLORIDE LEVEL 105 MEQ/L (98-107); CREATININE FOR GFR 0.93 MG/DL (0.55-1.02); GLOMERULAR FILTRATION RATE > 60.0 (>32); GLUCOSE, FASTING 116 MG/DL (83-110); POTASSIUM SERUM 4.2 MEQ/L (3.5-5.1); SODIUM LEVEL 138 MEQ/L (136-145)
[2017-05-14] MEDS ORDERED: PRED10TA2 PO (00:39)
[2017-05-14] MEDS ORDERED: TYLE325T5 PO (00:40)
[2017-05-14] MEDS ORDERED: NITROGLYCERIN 0.4 MG SUBL TABLET SL PRN (01:15)
[2017-05-14] MEDS ORDERED: ACETAMINOPHEN TAB 650MG DOSE (2X325MG) PO PRN (01:15)
[2017-05-14] MEDS ORDERED: ONDANSETRON 4MG/2ML VIAL (J2405) IV PRN (01:15)
[2017-05-14] MEDS ORDERED: ALPRAZolam 0.25 MG TAB PO PRN (01:15)
[2017-05-14] MEDS ORDERED: FUROSEMIDE 40 MG TAB PO PRN (01:15)
[2017-05-14] MEDS ORDERED: predniSONE 20 MG TAB PO ONE (01:37)
[2017-05-14 03:30] VITALS: BP 140/65
[2017-05-14 06:00] VITALS: BP 136/69
[2017-05-14 06:13] VITALS: O2SAT 94
[2017-05-14] MEDS: ALBUTEROL SULFATE 2.5 MG/0.5 ML INH NEB SOLN INH PRN ×4 (06:23→20:24)
[2017-05-14 07:04] LABS: BASO % 0.3 % (0.0-1.0); EOS % 0.4 % (0.0-3.0); LARGE UNSTAINED CELL % 0.7 % (0.0-4.0); LYMPH # 0.3 K/mm3 (1.5-4.5); LYMPH % 7.7 % (24.0-44.0); MEAN CORPUSCULAR HEMOGLOBIN 29.2 pg (27.0-33.0); MEAN CORPUSCULAR HGB CONC 32.2 g/dl (32.0-36.5); MEAN CORPUSCULAR VOLUME 90.7 fl (80.0-96.0); MONO % 1.1 % (0.0-5.0); NEUTROPHILS # 3.4 K/mm3 (1.8-7.7); NEUTROPHILS % 89.8 % (36.0-66.0); PLATELET COUNT, AUTOMATED 421 k/mm3 (150-450); RED CELL DISTRIBUTION WIDTH 15.3 % (11.5-14.5); WHITE BLOOD COUNT 3.8 K/mm3 (4.0-10.0)
[2017-05-14 07:14] LABS: CALCIUM LEVEL 8.8 MG/DL (8.8-10.2); CREATININE FOR GFR 1.01 MG/DL (0.55-1.02); GLOMERULAR FILTRATION RATE 55.7 (>32); POTASSIUM SERUM 4.6 MEQ/L (3.5-5.1)
--- NOTE | 2017-05-14 07:37 | HPEPDOC ---
General Date of Admission May 14, 2017 at 01:08 Primary Care Physician: ANJUM MARIE MD Other Providers State Game Warden: Dr. Justice Attending Physician: CODY GRIJALVA MD Chief Complaint The patient is a 81-year-old female admitted with a reason for visit of COPD. Source: Patient Exam Limitations: No limitations Timing/Duration: Day(s) History of Present Illness This is a 81-year-old female admitted with a PMH of COPD with prn home O2, CAD s /p NSTEMI (10/21) and PCI with stents, cor pulmonale with pHTN, R nephrectomy ( 30ys ago) who presents with persistent dyspnea. Pt reports increasing dyspnea over last few days. She has been to the ED multiple times this past year with 4 prior hospitalizations this year. While she reported dyspnea and feeling like she couldn't breathe, she denied fevers/chills, n/v, abd pain, diarrhea, increased sputum production or change in quality, sick contacts. Pt had been in the ED on the 05/11 with similar complaints, although at that time she was able to return home. Pt received multiple rounds of nebs in the ED in additional to iv steroids (20mg dex), with improved dyspnea. After arriving on floors, pt was less anxious and dyspneic, saying she felt like she could finally breathe. Home Medications Scheduled Aspirin (Aspirin) 81 Mg Tab, 81 MG PO DAILY, (Reported) Atorvastatin Calcium (Atorvastatin Calcium) 40 Mg Tab, 40 MG PO DAILY, (Reported ) Calcium/Vitamin D (Calcium 600 + D 600-400 mg-Unit) 1 Tab Tab, 1 TAB PO DAILY, ( Reported) Clopidogrel Bisulfate (Plavix) 75 Mg Tab, 75 MG PO DAILY, (Reported) Lisinopril (Lisinopril) 10 Mg Tab, 10 MG PO DAILY, (Reported) Prednisone (Prednisone) 10 Mg Tab, 10 MG PO DAILY, (Reported) Scheduled PRN Acetaminophen (Tylenol) 325 Mg Tab, 650 MG PO Q4H PRN for PAIN, (Reported) Albuterol Sulfate (Ventolin Hfa) 200 Puff/8 Gm Aers, 2 PUFF INH Q4H PRN for SHORTNESS OF BREATH, (Reported) Albuterol Sulfate (Albuterol Sulfate) 2.5 Mg/3 Ml Nebu, 2.5 MG INH Q4H PRN for SHORTNESS OF BREATH, (Reported) Alprazolam (Alprazolam) 0.25 Mg Tab, 0.25 MG PO TID PRN for ANXIETY, (Reported) Furosemide (Furosemide) 40 Mg Tab, 40 MG PO DAILY PRN for SWELLING, (Reported) Nitroglycerin (Nitrostat) 0.4 Mg Subl, 0.4 MG SL Q5MP PRN for CHEST PAIN, ( Reported) Allergies Coded Allergies: Levofloxacin (Unverified Allergy, Intermediate, rash, 05/11/17) Lidocaine (Verified Allergy, Mild, RASH, 05/11/17) Procaine (Verified Allergy, Mild, RASH, 05/11/17) Past Medical History Medical History 1. Chronic obstructive pulmonary disease (COPD). 2. Anxiety. 3. Coronary artery disease (CAD) with stenting. 4. Pulmonary hypertension. 5. History of transient ischemic attack (TIA). 6. History of malaria. 7. History of dysentery. Surgical History 1. Right kidney procedure involving opening a duct. 2. Aortic surgery. 3. Cardiac stent placement. 4. Appendectomy. Family History Significant Family History: No pertinent family hx Social History * Smoker: former Smoker (Quit 30yrs ago) Alcohol: Denies Recent Travel/Sick Contacts: Denies: Recent travel Psychosocial History: No pertinent psych hx Lives with son. Review of Symptoms Constitutional: Reports: Weakness, Denies: Chills, Fever, Night Sweats Eyes: Denies: Pain, Vision change ENT: Denies: Dysphagia Skin: Denies: Rash, Lesions Pulmonary: Denies: Pleuritic Chest Pain Cardiovascular: Denies: Orthopnea, Paroxysmal Noc. Dyspnea Gastrointestinal: Denies: Nausea, Vomiting, Abdominal Pain Genitourinary: Denies: Dysuria, Frequency Hematologic: Denies: Bruising, Bleeding Excessively Endocrine: Denies: Polydipsia, Polyphagia Musculoskeletal: Denies: Neck Pain, Back Pain Neurological: Denies: Weakness, Numbness, Change in speech Psych: Reports: Anxiety Physical Examination General Exam: Positive: Alert Eye Exam: Positive: Conjunctiva & lids normal ENT Exam: Positive: Atraumatic, Mucous membr. moist/pink Neck Exam: Positive: Supple, Negative: Lymphadenopathy Heart Exam: Positive: Rate Normal, Negative: Tachycardic, Bradycardic Telemetry: Positive: No significant arrhythmia Abdomen Exam: Positive: Normal bowel sounds, Soft, Negative: BS Hyperactive, BS Hypoactive, Tenderness, Hepatospenomegaly Extremity Exam: Negative: Clubbing, Cyanosis, Edema Skin Exam: Positive: Nl turgor and temperature, Negative: Rash, Breakdown Neuro Exam: Positive: Normal Speech, Normal Tone, Sensation Intact, Cranial Nerves 3-12 NL Psych Exam: Positive: Mental status NL, Mood NL, Oriented x 3 Vital Signs Vital Signs Date Time Temp Pulse Resp B/P (MAP) Pulse Ox O2 Delivery O2 Flow Rate FiO2 05/14/17 03:30 97.7 91 24 140/65 (90) 94 Nasal Cannula 2.0 Laboratory Data Labs 24H Laboratory Tests 2 05/13/17 23:52: White Blood Count 6.4, Red Blood Count 3.00L, Hemoglobin 8.7L, Hematocrit 26.6L , Mean Corpuscular Volume 88.7, Mean Corpuscular Hemoglobin 28.9, Mean Corpuscular Hemoglobin Concent 32.6, Red Cell Distribution Width 15.5H, Platelet Count 373, Neutrophils (%) (Auto) 86.4H, Lymphocytes (%) (Auto) 5.8L, Monocytes (%) (Auto) 2.9, Eosinophils (%) (Auto) 4.0H, Basophils (%) (Auto) 0.3 , Neutrophils # (Auto) 5.5, Lymphocytes # (Auto) 0.4L, Monocytes # (Auto) 0.2, Eosinophils # (Auto) 0.2, Basophils # (Auto) 0.0, Large Unclassified Cells % 0.7 , Large Unclassified Cells # 0.0, Blood Gas Bicarbonate Standard 23.2, Venous Blood pH 7.510H, Venous Blood Partial Pressure CO2 26.4L, Venous Blood Partial Pressure O2 118.8H, Venous Blood Total Carbon Dioxide 21.4L, Venous Blood HCO3 20.6L, Venous Blood Oxygen Saturation 98.6H, Venous Blood Base Excess -1.6, Anion Gap 9, Glomerular Filtration Rate > 60.0, Blood Urea Nitrogen 33#H, Creatinine 0.93, Sodium Level 138, Potassium Level 4.2, Chloride Level 105, Carbon Dioxide Level 24, Calcium Level 8.6L CBC/BMP Laboratory Tests 05/13/17 23:52 Red Blood Count 3.00 L, Mean Corpuscular Volume 88.7, Mean Corpuscular Hemoglobin 28.9, Mean Corpuscular Hemoglobin Concent 32.6, Red Cell Distribution Width 15.5 H, Neutrophils (%) (Auto) 86.4 H, Lymphocytes (%) (Auto ) 5.8 L, Monocytes (%) (Auto) 2.9, Eosinophils (%) (Auto) 4.0 H, Basophils (%) ( Auto) 0.3, Neutrophils # (Auto) 5.5, Lymphocytes # (Auto) 0.4 L, Monocytes # ( Auto) 0.2, Eosinophils # (Auto) 0.2, Basophils # (Auto) 0.0, Calcium Level 8.6 L Assessment/Plan This is a 81-year-old female admitted with a PMH of COPD with prn home O2, CAD s /p NSTEMI (10/21) and PCI with stents, cor pulmonale with pHTN, R nephrectomy ( 30ys ago) who presents with persistent dyspnea and acute copd exacerbation. 1. Acute copd with chronic hypoxic resp failure Pt's abg appears c/w pt with copd and likely alkalotic due to anxiety and hyperventilation Continue nebs q6h with q4h prn Will continue steroids with 40mg po prednisone (first dose given after she received 15mg iv dex) No indication at this time for abx as pt does not report change in quantity or quality of sputum O2 to maintain sat 90% Consider pulm (pt sees rafaela) 2. CAD s/p NSTEMI and PCI with stent Continue asa 81mg Continue high-intensity statin Continue plavix Continue prn SLNTG 3. Chronic diastolic HFpEF Continue po lasix Continue lisinopril BNP 55.4 4. Anxiety Continue ativan prn 5. Subclinical hypothyroidism TSH 5.406 with normal FT4 (04/22) Would start low dose synthroid 25mcg 6. DVT prophylaxis Pt on asa/plavix Will order heparin sq Plan / VTE VTE Prophylaxis Ordered?: Yes Neal Ayers MD May 14, 2017 04:43
--- NOTE | 2017-05-14 08:34 | REP ---
Clinical: Dyspnea. Comparison: 05/12/2017. Findings: Mediastinum and cardiac silhouette are stable. Lung carbajal demonstrate diffuse chronic interstitial changes and bibasilar fibro atelectatic changes similar to prior examination. No obvious acute consolidation, effusion, or pneumothorax. Skeletal structures are stable. Impression: Chronic stable changes. No obvious acute cardiopulmonary process. Signed by Jacobo Martinez MD 05/14/2017 08:25 A
[2017-05-14] MEDS: HEPARIN SOD (PORCINE) 5000 UNITS/ML VIAL SC SCH ×2 (10:27→19:55)
[2017-05-14] MEDS: LISINOPRIL 10 MG TAB PO SCH (10:28)
[2017-05-14] MEDS: ASPIRIN 81 MG ENTERIC TAB PO SCH (10:29)
[2017-05-14] MEDS: CALCIUM/VITAMIN D 500 MG TAB PO SCH (10:29)
[2017-05-14] MEDS: CLOPIDOGREL 75 MG TAB PO SCH (10:29)
[2017-05-14] MEDS: ATORVASTATIN 20 MG TAB PO SCH (10:29)
[2017-05-14] MEDS: LEVOTHYROXINE 25MCG TABLET (0.025MG) PO SCH (10:36)
[2017-05-14 14:00] VITALS: BP 133/72
[2017-05-14 22:00] VITALS: BP 126/59
[2017-05-15] MEDS: LEVOTHYROXINE 25MCG TABLET (0.025MG) PO SCH ×2 (05:29→05:33)
[2017-05-15] MEDS: ALBUTEROL SULFATE 2.5 MG/0.5 ML INH NEB SOLN INH PRN (05:43)
[2017-05-15 06:00] VITALS: BP 148/66
[2017-05-15 07:38] LABS: BASO % 0.7 % (0.0-1.0); EOS # 0.2 K/mm3 (0.0-0.50); EOS % 2.2 % (0.0-3.0); LARGE UNSTAINED CELL # 0.1 K/mm3 (0.0-0.4); LARGE UNSTAINED CELL % 1.7 % (0.0-4.0); LYMPH # 1.2 K/mm3 (1.5-4.5); LYMPH % 17.1 % (24.0-44.0); MEAN CORPUSCULAR HEMOGLOBIN 29.4 pg (27.0-33.0); MEAN CORPUSCULAR HGB CONC 31.9 g/dl (32.0-36.5); MEAN CORPUSCULAR VOLUME 92.2 fl (80.0-96.0); MONO # 0.5 K/mm3 (0.0-0.8); MONO % 7.7 % (0.0-5.0); NEUTROPHILS # 4.8 K/mm3 (1.8-7.7); NEUTROPHILS % 70.7 % (36.0-66.0); PLATELET COUNT, AUTOMATED 420 k/mm3 (150-450); RED CELL DISTRIBUTION WIDTH 15.2 % (11.5-14.5); WHITE BLOOD COUNT 6.7 K/mm3 (4.0-10.0)
[2017-05-15 07:53] LABS: ALBUMIN 2.5 GM/DL (3.2-5.2); ALBUMIN/GLOBULIN RATIO 0.86 (1.00-1.93); ALKALINE PHOSPHATASE 55 U/L (45-117); ALT/SGPT 35 U/L (12-78); ANION GAP 5 MEQ/L (8-16); AST/SGOT 23 U/L (15-37); BILIRUBIN,TOTAL 0.4 MG/DL (0.2-1.0); BLOOD UREA NITROGEN 25 MG/DL (7-18); CALCIUM LEVEL 8.3 MG/DL (8.8-10.2); CARBON DIOXIDE LEVEL 27 MEQ/L (21-32); CHLORIDE LEVEL 110 MEQ/L (98-107); CREATININE FOR GFR 0.79 MG/DL (0.55-1.02); GLOMERULAR FILTRATION RATE > 60.0 (>32); GLUCOSE, FASTING 89 MG/DL (83-110); MAGNESIUM LEVEL 2.4 MG/DL (1.8-2.4); POTASSIUM SERUM 4.1 MEQ/L (3.5-5.1); SODIUM LEVEL 142 MEQ/L (136-145); TOTAL PROTEIN 5.4 GM/DL (6.4-8.2)
[2017-05-15] MEDS: IPRATROPIUM 0.5MG/ALBUTEROL 2.5MG INH SOL UD 3ML (DUONEB)(J7620) NEB SCH ×4 (08:00→20:00)
[2017-05-15] MEDS: HEPARIN SOD (PORCINE) 5000 UNITS/ML VIAL SC SCH ×2 (09:00→20:34)
[2017-05-15] MEDS: MECLIZINE 12.5 MG TAB PO PRN (09:17)
[2017-05-15] MEDS: ASPIRIN 81 MG ENTERIC TAB PO SCH (09:17)
[2017-05-15] MEDS: ATORVASTATIN 20 MG TAB PO SCH (09:18)
[2017-05-15] MEDS: CALCIUM/VITAMIN D 500 MG TAB PO SCH (09:18)
[2017-05-15] MEDS: CLOPIDOGREL 75 MG TAB PO SCH (09:18)
[2017-05-15] MEDS: predniSONE 10 MG TAB PO SCH (09:19)
[2017-05-15] MEDS: LISINOPRIL 10 MG TAB PO SCH (10:33)
[2017-05-15] MEDS: SYMBICORT 160/4.5MCG INHALER 6GM INH SCH ×2 (10:38→20:13)
[2017-05-15] MEDS: TIOTROPIUM INHALER/CAPSULE (SPIRIVA) INH SCH (10:38)
[2017-05-15] MEDS ORDERED: MECLIZINE 12.5 MG TAB PO ONE (12:00)
[2017-05-15 14:00] VITALS: BP 166/77
[2017-05-15 17:00] VITALS: BP 186/82
[2017-05-15 18:00] VITALS: BP_SYST 172; BP_SYST 186; BP_DIAS 79; BP_DIAS 82; BP_DIAS 84
[2017-05-15 22:00] VITALS: BP_SYST 137; BP_SYST 145; BP_SYST 152; BP_DIAS 67; BP_DIAS 70
[2017-05-16] VITALS (7 sets, daily range): BP systolic 127–180; BP diastolic 57–77
[2017-05-16] MEDS: LEVOTHYROXINE 25MCG TABLET (0.025MG) PO SCH (05:52)
[2017-05-16 07:13] LABS: BASO % 0.1 % (0.0-1.0); EOS # 0.2 K/mm3 (0.0-0.50); EOS % 2.7 % (0.0-3.0); LARGE UNSTAINED CELL # 0.1 K/mm3 (0.0-0.4); LARGE UNSTAINED CELL % 1.6 % (0.0-4.0); LYMPH % 16.4 % (24.0-44.0); MEAN CORPUSCULAR HEMOGLOBIN 30.1 pg (27.0-33.0); MEAN CORPUSCULAR HGB CONC 32.8 g/dl (32.0-36.5); MEAN CORPUSCULAR VOLUME 91.8 fl (80.0-96.0); MONO # 0.4 K/mm3 (0.0-0.8); MONO % 6.9 % (0.0-5.0); NEUTROPHILS % 72.3 % (36.0-66.0); PLATELET COUNT, AUTOMATED 416 k/mm3 (150-450); RED CELL DISTRIBUTION WIDTH 15.4 % (11.5-14.5); WHITE BLOOD COUNT 5.6 K/mm3 (4.0-10.0)
[2017-05-16 07:35] LABS: ALBUMIN 2.4 GM/DL (3.2-5.2); ALBUMIN/GLOBULIN RATIO 0.71 (1.00-1.93); ALKALINE PHOSPHATASE 57 U/L (45-117); ALT/SGPT 34 U/L (12-78); ANION GAP 5 MEQ/L (8-16); AST/SGOT 18 U/L (15-37); BILIRUBIN,TOTAL 0.4 MG/DL (0.2-1.0); BLOOD UREA NITROGEN 21 MG/DL (7-18); CALCIUM LEVEL 8.6 MG/DL (8.8-10.2); CARBON DIOXIDE LEVEL 28 MEQ/L (21-32); CHLORIDE LEVEL 107 MEQ/L (98-107); CREATININE FOR GFR 0.71 MG/DL (0.55-1.02); GLOMERULAR FILTRATION RATE > 60.0 (>32); GLUCOSE, FASTING 76 MG/DL (83-110); MAGNESIUM LEVEL 2.2 MG/DL (1.8-2.4); POTASSIUM SERUM 4.1 MEQ/L (3.5-5.1); SODIUM LEVEL 140 MEQ/L (136-145); TOTAL PROTEIN 5.8 GM/DL (6.4-8.2)
[2017-05-16] MEDS: predniSONE 10 MG TAB PO SCH (07:52)
[2017-05-16] MEDS: ATORVASTATIN 20 MG TAB PO SCH (07:52)
[2017-05-16] MEDS: MECLIZINE 12.5 MG TAB PO PRN (07:53)
[2017-05-16] MEDS: CALCIUM/VITAMIN D 500 MG TAB PO SCH (07:53)
[2017-05-16] MEDS: LISINOPRIL 10 MG TAB PO SCH (07:53)
[2017-05-16] MEDS: ASPIRIN 81 MG ENTERIC TAB PO SCH (07:53)
[2017-05-16] MEDS: CLOPIDOGREL 75 MG TAB PO SCH (07:53)
[2017-05-16] MEDS: HEPARIN SOD (PORCINE) 5000 UNITS/ML VIAL SC SCH ×2 (07:54→20:21)
--- NOTE | 2017-05-16 07:58 | IPNPDOC ---
Text Note Date of Service The patient was seen on 05/16/17. NOTE Subjective: Nurse called stating that the patient had midsternal pressure-like pain with associated nausea and vomiting. EKG with normal sinus rhythm, right bundle branch block, no acute ST changes. No significant changes from prior EKG. Upon examining patient, patient's denies any chest pain. States that she occasionally has dizziness but this been going on for many years. Objective: Vitals: (see below) General: No acute distress, laying comfortably in bed. HEENT: Moist mucous membranes. Neck: No JVD or lymphadenopathy Cardiac: RRR, No murmurs Pulm: Clear to auscultation b/l. No wheezing, rhonchi Abd: NT/ND + BS Ext: No edema or cyanosis Neuro: Strength 5/5 BUE and BLE. CN 2-12 intact. F to N intact Negative [place]. Negative [place] (see below) Images: Assessment/Plan 1. Acute Chronic obstructive pulmonary disease (COPD) - patient uses oxygen as needed at home. On nebulizers. Prednisone. Improving. 2. History of dizziness/vertigo- started on meclizine. States she typically has occasional dizziness. Orthostatics negative. We'll obtain CT of head as it is persistent. [place] negative. 3. History of Coronary artery disease (CAD) with stenting. On aspirin, statin and Plavix. 4. History of Pulmonary hypertension. 5. History of transient ischemic attack (TIA). On aspirin and statin 6. History of malaria. 7. History of dysentery. 8. History of diastolic heart failure - on by mouth Lasix 9. Subclinical hypothyroidism- started on low-dose Synthroid 10. Normocytic anemia- no acute bleeding at this time. We will need outpatient colonoscopy. We will check iron/TIBC/ferritin. 11. Dizziness- started on meclizine yesterday. Orthostatics negative. Will ambulate today. Cleared by physical therapy yesterday. 12. History of cor pulmonale 13. History of nephrectomy. Renal function stable. 14. History of Anxiety- Ativan as needed DVT prophylaxis heparin subcutaneous VS,Fishbone, I+O VS, Fishbone, I+O Laboratory Tests 05/16/17 06:59 Red Blood Count 3.09 L, Mean Corpuscular Volume 91.8, Mean Corpuscular Hemoglobin 30.1, Mean Corpuscular Hemoglobin Concent 32.8, Red Cell Distribution Width 15.4 H, Neutrophils (%) (Auto) 72.3 H, Lymphocytes (%) (Auto ) 16.4 L, Monocytes (%) (Auto) 6.9 H, Eosinophils (%) (Auto) 2.7, Basophils (%) (Auto) 0.1, Neutrophils # (Auto) 4.0, Lymphocytes # (Auto) 1.0 L, Monocytes # ( Auto) 0.4, Eosinophils # (Auto) 0.2, Basophils # (Auto) 0.0, Calcium Level 8.6 L , Aspartate Amino Transf (AST/SGOT) 18, Alanine Aminotransferase (ALT/SGPT) 34, Alkaline Phosphatase 57, Total Bilirubin 0.4, Total Protein 5.8 L, Albumin 2.4 L Vital Signs Date Time Temp Pulse Resp B/P (MAP) Pulse Ox O2 Delivery O2 Flow Rate FiO2 05/16/17 06:00 78 145/67 (93) 05/16/17 06:00 96.3 18 95 Nasal Cannula 2.0 I&O- Last 24 Hours up to 6 AM 05/16/17 05:59 Intake Total 240 ml Output Total 500 ml Balance -260 ml JAHAIRA CABALLERO MD May 16, 2017 07:58
[2017-05-16] MEDS: IPRATROPIUM 0.5MG/ALBUTEROL 2.5MG INH SOL UD 3ML (DUONEB)(J7620) NEB SCH ×4 (08:00→20:00)
[2017-05-16] MEDS: TIOTROPIUM INHALER/CAPSULE (SPIRIVA) INH SCH (08:03)
[2017-05-16] MEDS: SYMBICORT 160/4.5MCG INHALER 6GM INH SCH ×2 (08:03→21:18)
[2017-05-16 08:36] LABS: RETIC HEMOGLOBIN CONTENT CHr 27.5 PG (24-36); RETICULOCYTE ABSOLUTE ADVIA212 72 x10(9)/L (17-77)
[2017-05-16] MEDS ORDERED: MAALOX 30 ML SUSP *UDC PO PRN (09:30)
[2017-05-16 09:48] LABS: FERRITIN 39 NG/ML (8-252); PERCENT SATURATION 8.8 % (13.2-37.4); TOTAL IRON BINDING CAPACITY 285 UG/DL (250-450)
[2017-05-16 13:42] LABS: FOLATE 12.1 NG/ML (>5.4); VITAMIN B12 LEVEL 512 PG/ML (247-911)
--- NOTE | 2017-05-16 17:03 | REP ---
CT HEAD WITHOUT CONTRAST: HISTORY: Dizziness. COMPARISON: 11/04/2016 Areas of decreased attenuation are present in the periventricular and subcortical white matter. This represents small vessel ischemic disease. There is no intraparenchymal hemorrhage or midline shift. The ventricular system and cortical sulci are dilated consistent with mild volume loss. There is no extracerebral collection. An 8 mm enostosis is present arising from the inner table of the left frontal bone. A small 7 mm ossified meningioma is present arising from the left anterior clinoid process. The visualizes sinuses are clear. IMPRESSION: 1. Small vessel ischemic disease. 2. Mild volume loss. 3. 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 Signed by Jaden Bright MD 05/17/2017 08:17 A
[2017-05-16] MEDS ORDERED: BENZONATATE 100 MG CAP PO PRN (19:15)
--- NOTE | 2017-05-16 23:12 | ECGEPIP ---
Stationary ECG Study [facility] Test Date: 2017-05-16 Pat Name: MARLENE BANG Department: Room: [place] [address] Gender: F Vice President Digital Strategist: ERICA : 1935 Requested By: JAHAIRA CABALLERO Order Number: [id number] Reading MD: Matti Arora Measurements Intervals [place] Rate: 100 P: 78 NE: 135 QRS: 80 QRSD: 132 T: 41 QT: 347 QTc: 449 Interpretive Statements SINUS TACHYCARDIA RIGHT BUNDLE BRANCH BLOCK Possible right ventricle hypertrophy. Indeterminate axis. No significant change compared with 04/26/2017. Electronically Signed On 05-16-2017 23:12:11 EDT by Matti Arora
[2017-05-17 04:00] VITALS: BP_SYST 147; BP_SYST 151; BP_SYST 152; BP_DIAS 65; BP_DIAS 67
[2017-05-17] MEDS: LEVOTHYROXINE 25MCG TABLET (0.025MG) PO SCH ×2 (05:00→08:41)
[2017-05-17 05:54] LABS: BASO % 0.3 % (0.0-1.0); EOS # 0.2 K/mm3 (0.0-0.50); EOS % 2.8 % (0.0-3.0); LARGE UNSTAINED CELL # 0.1 K/mm3 (0.0-0.4); LARGE UNSTAINED CELL % 1.4 % (0.0-4.0); LYMPH # 1.2 K/mm3 (1.5-4.5); LYMPH % 14.7 % (24.0-44.0); MEAN CORPUSCULAR HEMOGLOBIN 29.3 pg (27.0-33.0); MEAN CORPUSCULAR HGB CONC 31.4 g/dl (32.0-36.5); MEAN CORPUSCULAR VOLUME 93.3 fl (80.0-96.0); MONO # 0.5 K/mm3 (0.0-0.8); MONO % 6.8 % (0.0-5.0); NEUTROPHILS # 5.5 K/mm3 (1.8-7.7); NEUTROPHILS % 74.1 % (36.0-66.0); PLATELET COUNT, AUTOMATED 439 k/mm3 (150-450); RED CELL DISTRIBUTION WIDTH 15.2 % (11.5-14.5); WHITE BLOOD COUNT 7.4 K/mm3 (4.0-10.0)
[2017-05-17 06:10] LABS: ALBUMIN 2.4 GM/DL (3.2-5.2); ALBUMIN/GLOBULIN RATIO 0.67 (1.00-1.93); ALKALINE PHOSPHATASE 63 U/L (45-117); ALT/SGPT 34 U/L (12-78); ANION GAP 4 MEQ/L (8-16); AST/SGOT 20 U/L (15-37); BILIRUBIN,TOTAL 0.3 MG/DL (0.2-1.0); BLOOD UREA NITROGEN 25 MG/DL (7-18); CALCIUM LEVEL 8.4 MG/DL (8.8-10.2); CARBON DIOXIDE LEVEL 30 MEQ/L (21-32); CHLORIDE LEVEL 108 MEQ/L (98-107); CREATININE FOR GFR 0.74 MG/DL (0.55-1.02); GLOMERULAR FILTRATION RATE > 60.0 (>32); GLUCOSE, FASTING 79 MG/DL (83-110); MAGNESIUM LEVEL 1.9 MG/DL (1.8-2.4); POTASSIUM SERUM 4.5 MEQ/L (3.5-5.1); SODIUM LEVEL 142 MEQ/L (136-145)
[2017-05-17] MEDS: IPRATROPIUM 0.5MG/ALBUTEROL 2.5MG INH SOL UD 3ML (DUONEB)(J7620) NEB SCH ×4 (07:04→21:02)
[2017-05-17] MEDS: SYMBICORT 160/4.5MCG INHALER 6GM INH SCH ×2 (07:04→21:29)
[2017-05-17] MEDS: TIOTROPIUM INHALER/CAPSULE (SPIRIVA) INH SCH (07:04)
[2017-05-17 07:45] VITALS: BP 144/76
[2017-05-17] MEDS: CLOPIDOGREL 75 MG TAB PO SCH (08:40)
[2017-05-17] MEDS: predniSONE 10 MG TAB PO SCH (08:40)
[2017-05-17] MEDS: ATORVASTATIN 20 MG TAB PO SCH (08:40)
[2017-05-17] MEDS: CALCIUM/VITAMIN D 500 MG TAB PO SCH (08:41)
[2017-05-17] MEDS: ASPIRIN 81 MG ENTERIC TAB PO SCH (08:41)
[2017-05-17] MEDS: LISINOPRIL 10 MG TAB PO SCH (08:46)
[2017-05-17] MEDS: HEPARIN SOD (PORCINE) 5000 UNITS/ML VIAL SC SCH ×2 (08:46→20:10)
[2017-05-17 11:00] VITALS: BP 148/72
[2017-05-17] MEDS: MECLIZINE 12.5 MG TAB PO PRN ×2 (11:16→18:08)
[2017-05-17 11:50] VITALS: BP 166/71
[2017-05-17] MEDS ORDERED: LEVO25TA5 PO (12:23)
[2017-05-17] MEDS ORDERED: MECL12.575 PO (12:23)
[2017-05-17] MEDS ORDERED: PRED10TA2 PO ×2 (12:23→12:24)
--- NOTE | 2017-05-17 13:36 | DS.PDOC ---
Discharge Summary General Date of Admission May 14, 2017 at 01:08 Date of Discharge 05/18/17 Attending Physician: JAHAIRA CABALLERO MD Discharge Summary PROCEDURES PERFORMED DURING STAY: None. ADMITTING/DISCHARGE DIAGNOSES: 1. Acute Chronic obstructive pulmonary disease exacerbation 2. H/o Vertigo Orthostatics negative. Cleared by physical therapy yesterday. 3. H/o CAD 4. History of Pulmonary hypertension. 5. History of transient ischemic attack (TIA). On aspirin and statin 6. History of malaria. 7. History of dysentery. 8. History of diastolic heart failure - 9. Subclinical hypothyroidism- started on low-dose Synthroid 10. Normocytic anemia- no acute bleeding at this time. We will need outpatient colonoscopy. 13. History of cor pulmonale 14. History of nephrectomy. Renal function stable. 15. History of Anxiety- COMPLICATIONS/CHIEF COMPLAINT: COPD. HISTORY OF PRESENT ILLNESS/HOSPITAL COURSE: This 81-year-old female past medical history of advanced COPD, hypertension, diastolic heart failure, cor pulmonale, history of nephrectomy who presents complaining of shortness of breath over the past few days prior to admission. Patient's had 4 prior hospitalizations with similar presentations. Patient was treated with nebulizers, steroids, and significantly improved. Patient did have some mild dizziness however no focal deficits. These have improved with meclizine. Patient states that she has a history of chronic dizziness and vertigo however is very stable on her feet. Patient was evaluated by a physical therapy and cleared for discharge. 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 DISCHARGE MEDICATIONS: Please see below. ALLERGIES: Please see below. PHYSICAL EXAMINATION ON DISCHARGE: VITAL SIGNS: Please see below. General: No acute distress, laying comfortably in bed. HEENT: Moist mucous membranes. Neck: No JVD or lymphadenopathy Cardiac: RRR, No murmurs Pulm: Clear to auscultation b/l. No wheezing, rhonchi Abd: NT/ND + BS Ext: No edema or cyanosis Neuro: Strength 5/5 BUE and BLE. CN 2-12 intact. F to N intact Negative Babinki. Negative Toño-Hallpike LABORATORY DATA: Please see below. IMAGING: CT Head 05/16/17 IMPRESSION:1. Small vessel ischemic disease.2. Mild volume loss.3. 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 PROGNOSIS: Guarded given her advanced COPD and comorbidities ACTIVITY: As tolerated. DIET: COPD diet DISCHARGE PLAN/DISPOSITION: D/c home DISCHARGE INSTRUCTIONS: 1. F/u with PCP in 1-2 weeks. Return to ED if symptoms worsen. DISCHARGE CONDITION: Stable. TIME SPENT ON DISCHARGE: Greater than 30 minutes. 05/18/17: Patient had no acute changes overnight. MRI of the brain/MRA of the head with no acute changes. Dizziness has significantly improved. Patient will be discharged home today. Vital Signs/I&Os Vital Signs Date Time Temp Pulse Resp B/P (MAP) Pulse Ox O2 Delivery O2 Flow Rate FiO2 05/17/17 12:15 Room Air 05/17/17 11:50 99.0 81 20 166/71 (102) 94 1.0 I&O- Last 24 Hours up to 6 AM 05/17/17 05:59 Intake Total 540 ml Output Total 1425 ml Balance -885 ml Laboratory Data Labs 24H Laboratory Tests 2 05/16/17 16:11: Total Creatine Kinase 37, Creatine Kinase MB 2.3, Creatine Kinase MB Relative Index 6.21H, Troponin I < 0.02 05/16/17 23:51: Total Creatine Kinase 48, Creatine Kinase MB 2.1, Creatine Kinase MB Relative Index 4.37H, Troponin I < 0.02 05/17/17 00:51: Urine Appearance CLEAR, Urine Color YELLOW, Urine pH 5.0, Urine Specific [place] 1.019, Urine Protein NEGATIVE, Urine Glucose (UA) 2+H, Urine Ketones NEGATIVE, Urine Urobilinogen 0.2, Urine Bilirubin NEGATIVE, Urine Leukocyte Esterase NEGATIVE, Urine Blood NEGATIVE, Urine Nitrite NEGATIVE, Urine WBC (Auto ) 0, Urine RBC (Auto) 3, Urine Hyaline Casts (Auto) 0, Urine Bacteria (Auto) NEGATIVE, Urine Squamous Epithelial Cells 0, Urine Mucus (Auto) SMALL, Urine Sperm (Auto) 05/17/17 05:37: White Blood Count 7.4, Red Blood Count 3.16L, Hemoglobin 9.3L, Hematocrit 29.4L , Mean Corpuscular Volume 93.3, Mean Corpuscular Hemoglobin 29.3, Mean Corpuscular Hemoglobin Concent 31.4L, Red Cell Distribution Width 15.2H, Platelet Count 439, Neutrophils (%) (Auto) 74.1H, Lymphocytes (%) (Auto) 14.7L, Monocytes (%) (Auto) 6.8H, Eosinophils (%) (Auto) 2.8, Basophils (%) (Auto) 0.3 , Neutrophils # (Auto) 5.5, Lymphocytes # (Auto) 1.2L, Monocytes # (Auto) 0.5, Eosinophils # (Auto) 0.2, Basophils # (Auto) 0.0, Large Unclassified Cells % 1.4 , Large Unclassified Cells # 0.1, Anion Gap 4L, Glomerular Filtration Rate > 60.0, Blood Urea Nitrogen 25H, Creatinine 0.74, Sodium Level 142, Potassium Level 4.5, Chloride Level 108H, Carbon Dioxide Level 30, Calcium Level 8.4L, Aspartate Amino Transf (AST/SGOT) 20, Alanine Aminotransferase (ALT/SGPT) 34, Alkaline Phosphatase 63, Total Bilirubin 0.3, Total Protein 6.0L, Albumin 2.4L, Magnesium Level 1.9, Albumin/Globulin Ratio 0.67L CBC/BMP Laboratory Tests 05/17/17 05:37 Red Blood Count 3.16 L, Mean Corpuscular Volume 93.3, Mean Corpuscular Hemoglobin 29.3, Mean Corpuscular Hemoglobin Concent 31.4 L, Red Cell Distribution Width 15.2 H, Neutrophils (%) (Auto) 74.1 H, Lymphocytes (%) (Auto ) 14.7 L, Monocytes (%) (Auto) 6.8 H, Eosinophils (%) (Auto) 2.8, Basophils (%) (Auto) 0.3, Neutrophils # (Auto) 5.5, Lymphocytes # (Auto) 1.2 L, Monocytes # ( Auto) 0.5, Eosinophils # (Auto) 0.2, Basophils # (Auto) 0.0, Calcium Level 8.4 L , Aspartate Amino Transf (AST/SGOT) 20, Alanine Aminotransferase (ALT/SGPT) 34, Alkaline Phosphatase 63, Total Bilirubin 0.3, Total Protein 6.0 L, Albumin 2.4 L Discharge Medications Scheduled Aspirin (Aspirin) 81 Mg Tab, 81 MG PO DAILY, (Reported) Atorvastatin Calcium (Atorvastatin Calcium) 40 Mg Tab, 40 MG PO DAILY, (Reported ) Calcium/Vitamin D (Calcium 600 + D 600-400 mg-Unit) 1 Tab Tab, 1 TAB PO DAILY, ( Reported) Clopidogrel Bisulfate (Plavix) 75 Mg Tab, 75 MG PO DAILY, (Reported) Levothyroxine Sodium (Synthroid) 25 Mcg Tab, 25 MCG PO DAILY@06 Lisinopril (Lisinopril) 10 Mg Tab, 10 MG PO DAILY, (Reported) Prednisone (Prednisone) 10 Mg Tab, 10 MG PO TAPER 3 tabs daily x 3 days, then 2 tabs daily x 3 days, then 1 tabs daily x 3 days , then stop and return to maintaince dose. Scheduled PRN Acetaminophen (Tylenol) 325 Mg Tab, 650 MG PO Q4H PRN for PAIN, (Reported) Albuterol Sulfate (Ventolin Hfa) 200 Puff/8 Gm Aers, 2 PUFF INH Q4H PRN for SHORTNESS OF BREATH, (Reported) Albuterol Sulfate (Albuterol Sulfate) 2.5 Mg/3 Ml Nebu, 2.5 MG INH Q4H PRN for SHORTNESS OF BREATH, (Reported) Alprazolam (Alprazolam) 0.25 Mg Tab, 0.25 MG PO TID PRN for ANXIETY, (Reported) Furosemide (Furosemide) 40 Mg Tab, 40 MG PO DAILY PRN for SWELLING, (Reported) Meclizine HCl (Meclizine HCl) 12.5 Mg Tab, 12.5 MG PO Q6HP PRN for DIZZINESS Nitroglycerin (Nitrostat) 0.4 Mg Subl, 0.4 MG SL Q5MP PRN for CHEST PAIN, ( Reported) Allergies Coded Allergies: Levofloxacin (Unverified Allergy, Intermediate, rash, 05/11/17) Lidocaine (Verified Allergy, Mild, RASH, 05/11/17) Procaine (Verified Allergy, Mild, RASH, 05/11/17) JAHAIRA CABALLERO MD May 17, 2017 13:36
[2017-05-17 16:30] VITALS: BP 138/65
--- NOTE | 2017-05-17 16:53 | REP ---
MRA BRAIN WITHOUT CONTRAST: HISTORY: Dizziness. 3D [id number] MR angiography was performed at the level of the [place]. There is no aneurysm or arteriovenous malformation. Mild atherosclerotic disease involves the distal vertical petrous segment of the left internal carotid artery and cavernous and supraclinoid segments of the internal carotid arteries, middle cerebral artery trifurcations and A1 segments of the anterior cerebral arteries. Major intracranial vessels are patent. The vertebral arteries are equal in size. IMPRESSION: There is no aneurysm or arteriovenous malformation. Atherosclerotic disease as above. Signed by Jaden Bright MD 05/17/2017 04:58 P
--- NOTE | 2017-05-17 17:29 | REP ---
MR BRAIN WITHOUT CONTRAST: HISTORY: Dizziness. COMPARISON: 09/25/2015. Areas of increased signal intensity on T2 weighted images are present in the periventricular and subcortical white matter and right cerebellum. This represents small vessel ischemic disease. There is no intraparenchymal hemorrhage, infarct, mass, or midline shift. The ventricular system and cortical sulci are dilated consistent with mild volume loss. There is no extracerebral collection. The small 7 mm left anterior quinoid process meningioma seen in the recent CT examination is not seen in the present examination. Minimal mucosal thickening is present in the right maxillary sinus. IMPRESSION:1. Small vessel ischemic disease. 2. Mild volume loss. Signed by Jaden Bright MD 05/18/2017 08:13 A
[2017-05-17 20:00] VITALS: BP 139/63
[2017-05-18] VITALS: BP 170/85
[2017-05-18 04:00] VITALS: BP 150/82
[2017-05-18 06:51] LABS: BASO % 0.3 % (0.0-1.0); EOS # 0.2 K/mm3 (0.0-0.50); LARGE UNSTAINED CELL # 0.2 K/mm3 (0.0-0.4); LYMPH # 1.1 K/mm3 (1.5-4.5); LYMPH % 13.8 % (24.0-44.0); MEAN CORPUSCULAR HEMOGLOBIN 28.9 pg (27.0-33.0); MEAN CORPUSCULAR HGB CONC 31.5 g/dl (32.0-36.5); MEAN CORPUSCULAR VOLUME 91.8 fl (80.0-96.0); MONO # 0.5 K/mm3 (0.0-0.8); MONO % 6.5 % (0.0-5.0); NEUTROPHILS # 5.8 K/mm3 (1.8-7.7); NEUTROPHILS % 75.5 % (36.0-66.0); PLATELET COUNT, AUTOMATED 494 k/mm3 (150-450); RED CELL DISTRIBUTION WIDTH 14.8 % (11.5-14.5); WHITE BLOOD COUNT 7.7 K/mm3 (4.0-10.0)
[2017-05-18 07:18] LABS: ALBUMIN 2.5 GM/DL (3.2-5.2); ALBUMIN/GLOBULIN RATIO 0.76 (1.00-1.93); ALKALINE PHOSPHATASE 65 U/L (45-117); ALT/SGPT 29 U/L (12-78); ANION GAP 7 MEQ/L (8-16); AST/SGOT 14 U/L (15-37); BILIRUBIN,TOTAL 0.4 MG/DL (0.2-1.0); BLOOD UREA NITROGEN 23 MG/DL (7-18); CALCIUM LEVEL 8.6 MG/DL (8.8-10.2); CARBON DIOXIDE LEVEL 29 MEQ/L (21-32); CHLORIDE LEVEL 105 MEQ/L (98-107); CREATININE FOR GFR 0.72 MG/DL (0.55-1.02); GLOMERULAR FILTRATION RATE > 60.0 (>32); GLUCOSE, FASTING 70 MG/DL (83-110); MAGNESIUM LEVEL 2.1 MG/DL (1.8-2.4); POTASSIUM SERUM 4.2 MEQ/L (3.5-5.1); SODIUM LEVEL 141 MEQ/L (136-145); TOTAL PROTEIN 5.8 GM/DL (6.4-8.2)
[2017-05-18] MEDS: IPRATROPIUM 0.5MG/ALBUTEROL 2.5MG INH SOL UD 3ML (DUONEB)(J7620) NEB SCH ×2 (07:38→11:30)
[2017-05-18] MEDS: TIOTROPIUM INHALER/CAPSULE (SPIRIVA) INH SCH (07:38)
[2017-05-18] MEDS: SYMBICORT 160/4.5MCG INHALER 6GM INH SCH (07:38)
[2017-05-18] MEDS ORDERED: MECLIZINE 12.5 MG TAB PO PRN (07:45)
[2017-05-18 08:15] VITALS: BP 160/68
[2017-05-18] MEDS: HEPARIN SOD (PORCINE) 5000 UNITS/ML VIAL SC SCH (09:00)
[2017-05-18] MEDS: LISINOPRIL 10 MG TAB PO SCH (09:00)
[2017-05-18] MEDS: ATORVASTATIN 20 MG TAB PO SCH (09:00)
[2017-05-18] MEDS: predniSONE 10 MG TAB PO SCH (09:22)
[2017-05-18] MEDS: ASPIRIN 81 MG ENTERIC TAB PO SCH (09:22)
[2017-05-18] MEDS: CLOPIDOGREL 75 MG TAB PO SCH (09:23)
[2017-05-18] MEDS: CALCIUM/VITAMIN D 500 MG TAB PO SCH (09:23)
[2017-05-18] MEDS ORDERED: SLF 3 ML SYR IV PRN (11:30)
[2017-05-18 12:00] VITALS: BP 148/62
[2017-05-18] MEDS ORDERED: SLF 3 ML SYR IV SCH (14:00)
[2017-05-18] MEDS: ALBUTEROL SULFATE 2.5 MG/0.5 ML INH NEB SOLN INH PRN (14:07)
== END 2017-05-18 15:07 | disposition home or self-care (01) | DRG 191 ==
LOC: EDBD 21:51 → M ED 21:51 → M ED INP 05-14 01:08 → M MS5PR 05-14 03:20 → M PCU 05-16 12:20
PROVIDERS: ATTEND Internal Medicine
DX: J44.1 Chronic obstructive pulmonary disease with (acute) exacerbation (principal); J96.11 Chronic respiratory failure with hypoxia; I50.32 Chronic diastolic (congestive) heart failure; I11.0 Hypertensive heart disease with heart failure; I25.10 Atherosclerotic heart disease of native coronary artery without angina pectoris; F41.9 Anxiety disorder, unspecified; E02 Subclinical iodine-deficiency hypothyroidism; I25.2 Old myocardial infarction; I27.81 Cor pulmonale (chronic); I27.2 Other secondary pulmonary hypertension; D64.9 Anemia, unspecified; R42 Dizziness and giddiness; Z99.81 Dependence on supplemental oxygen; Z90.5 Acquired absence of kidney; Z79.82 Long term (current) use of aspirin; Z79.52 Long term (current) use of systemic steroids; Z79.899 Other long term (current) drug therapy; Z88.1 Allergy status to other antibiotic agents; Z88.6 Allergy status to analgesic agent; Z88.8 Allergy status to other drugs, medicaments and biological substances; Z95.5 Presence of coronary angioplasty implant and graft; Z86.73 Personal history of transient ischemic attack (TIA), and cerebral infarction without residual deficits; Z86.13 Personal history of malaria; Z87.891 Personal history of nicotine dependence; S29.012A Strain of muscle and tendon of back wall of thorax, initial encounter; X58.XXXA Exposure to other specified factors, initial encounter; Y92.89 Other specified places as the place of occurrence of the external cause; Y93.89 Activity, other specified; Y99.8 Other external cause status; Z95.1 Presence of aortocoronary bypass graft

== ENCOUNTER 2017-05-31 11:22 | Emergency (ER) | payer MEDICARE, OTHER ==
[~2017-05-31] VITALS: Ht 152.4 cm; Wt 46.0 kg
[~2017-05-31 11:22] MED LIST changes: +LEVO25TA5 PO; +MECL12.575 PO; +TYLE325T5 PO
[2017-05-31] MEDS ORDERED: OMEP40CA2 PO (11:49)
[2017-05-31] MEDS ORDERED: TIZA2CAP3 PO (11:49)
[2017-05-31] MEDS ORDERED: ACET30TAB PO (11:49)
[2017-05-31] MEDS ORDERED: AMLO10TA2 PO (11:49)
[2017-05-31] MEDS ORDERED: ZYRT10CA PO (11:49)
[2017-05-31] MEDS ORDERED: ASPIRIN 81 MG CHEW TABLET PO ONE (12:15)
[2017-05-31] MEDS ORDERED: FUROSEMIDE 40 MG/4 ML VIAL (J1940) IV ONE (12:15)
[2017-05-31] MEDS ORDERED: IPRATROPIUM 0.5MG/ALBUTEROL 2.5MG INH SOL UD 3ML (DUONEB)(J7620) NEB PRN (12:15)
[2017-05-31 12:45] LABS: WHITE BLOOD COUNT 6.5 K/mm3 (4.0-10.0)
[2017-05-31 12:46] LABS: BASO % 0.8 % (0.0-1.0); EOS # 0.2 K/mm3 (0.0-0.50); EOS % 3.5 % (0.0-3.0); LARGE UNSTAINED CELL # 0.1 K/mm3 (0.0-0.4); LARGE UNSTAINED CELL % 1.9 % (0.0-4.0); MEAN CORPUSCULAR HEMOGLOBIN 28.6 pg (27.0-33.0); MEAN CORPUSCULAR VOLUME 89.4 fl (80.0-96.0); MONO # 0.5 K/mm3 (0.0-0.8); MONO % 7.3 % (0.0-5.0); NEUTROPHILS # 4.7 K/mm3 (1.8-7.7); NEUTROPHILS % 72.6 % (36.0-66.0); PLATELET COUNT, AUTOMATED 366 k/mm3 (150-450); RED CELL DISTRIBUTION WIDTH 15.3 % (11.5-14.5)
[2017-05-31 13:02] LABS: ALBUMIN 2.9 GM/DL (3.2-5.2); ALBUMIN/GLOBULIN RATIO 0.67 (1.00-1.93); ALKALINE PHOSPHATASE 89 U/L (45-117); ALT/SGPT 22 U/L (12-78); ANION GAP 4 MEQ/L (8-16); AST/SGOT 17 U/L (15-37); BILIRUBIN,DIRECT 0.2 MG/DL (0.0-0.2); BILIRUBIN,TOTAL 0.7 MG/DL (0.2-1.0); BLOOD UREA NITROGEN 14 MG/DL (7-18); CALCIUM LEVEL 8.8 MG/DL (8.8-10.2); CARBON DIOXIDE LEVEL 30 MEQ/L (21-32); CHLORIDE LEVEL 106 MEQ/L (98-107); CREATININE FOR GFR 0.64 MG/DL (0.55-1.02); GLOMERULAR FILTRATION RATE > 60.0 (>32); GLUCOSE, FASTING 80 MG/DL (83-110); POTASSIUM SERUM 4.1 MEQ/L (3.5-5.1); SODIUM LEVEL 140 MEQ/L (136-145); TOTAL PROTEIN 7.2 GM/DL (6.4-8.2)
[2017-05-31] MEDS ORDERED: PRED10TA2 PO (13:42)
--- NOTE | 2017-05-31 14:02 | REP ---
Portable chest, single AP view, the patient semi upright, 01:19 p.m.: Comparisons are 05/13/2017 and 05/01/2017. There is chronic interstitial coarsening, unchanged. There is linear increased density inferiorly in the left lung, unchanged from 05/13/2017 but not present 05/01/2017, compatible with discoid atelectasis. There are no pleural effusions. There is demineralization. There is scoliosis convex right. There is deformity of the femoral heads bilaterally, likely from chronic arthropathy. Cardiac size is normal. Sternotomy wires are again identified. Impression: Interstitial coarsening and discoid atelectasis inferiorly in the left lung, unchanged from 05/13/2017. Signed by Jaiden Monae MD 05/31/2017 01:53 P
[2017-05-31 15:13] VITALS: BP 170/72
--- NOTE | 2017-06-01 11:17 | ECGEPIP ---
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
== END 2017-05-31 15:53 | disposition home or self-care (01) ==
LOC: EDBD 11:22 → M ED 11:22
DX: J44.1 Chronic obstructive pulmonary disease with (acute) exacerbation (principal); I11.0 Hypertensive heart disease with heart failure; I50.9 Heart failure, unspecified; Z99.81 Dependence on supplemental oxygen; Z87.891 Personal history of nicotine dependence; Z79.899 Other long term (current) drug therapy
CPT/HCPCS: 71010; 80048; 80076; 82550; 82553; 83880; 84484; 85025; 87040; 93005; 93041; 94640; 94760; 96374; 99284; J1940

== ENCOUNTER 2017-06-09 12:33 | Emergency (ER) | payer MEDICARE, OTHER ==
[~2017-06-09] VITALS: Ht 152.4 cm; Wt 50.0 kg
[~2017-06-09 12:33] MED LIST changes: +OMEP40CA2 PO; +ZYRT10CA PO
[2017-06-09] MEDS ORDERED: ASPI1TAB PO (12:50)
[2017-06-09] MEDS ORDERED: oxygen (12:55)
[2017-06-09 13:58] LABS: BASO # 0.1 K/mm3 (0.0-0.2); BASO % 1.1 % (0.0-1.0); EOS # 0.4 K/mm3 (0.0-0.50); EOS % 8.6 % (0.0-3.0); LARGE UNSTAINED CELL # 0.1 K/mm3 (0.0-0.4); LARGE UNSTAINED CELL % 2.4 % (0.0-4.0); LYMPH # 1.3 K/mm3 (1.5-4.5); LYMPH % 21.7 % (24.0-44.0); MEAN CORPUSCULAR HEMOGLOBIN 28.4 pg (27.0-33.0); MEAN CORPUSCULAR HGB CONC 31.9 g/dl (32.0-36.5); MONO # 0.4 K/mm3 (0.0-0.8); MONO % 8.2 % (0.0-5.0); NEUTROPHILS # 3.1 K/mm3 (1.8-7.7); PLATELET COUNT, AUTOMATED 539 k/mm3 (150-450); RED CELL DISTRIBUTION WIDTH 15.4 % (11.5-14.5); WHITE BLOOD COUNT 5.3 K/mm3 (4.0-10.0)
[2017-06-09 14:13] LABS: ALBUMIN 3.4 GM/DL (3.2-5.2); ALBUMIN/GLOBULIN RATIO 0.92 (1.00-1.93); ALKALINE PHOSPHATASE 86 U/L (45-117); ANION GAP 9 MEQ/L (8-16); AST/SGOT 20 U/L (15-37); BILIRUBIN,DIRECT 0.2 MG/DL (0.0-0.2); BILIRUBIN,TOTAL 0.9 MG/DL (0.2-1.0); BLOOD UREA NITROGEN 19 MG/DL (7-18); CALCIUM LEVEL 9.1 MG/DL (8.8-10.2); CARBON DIOXIDE LEVEL 27 MEQ/L (21-32); CHLORIDE LEVEL 105 MEQ/L (98-107); CREATININE FOR GFR 0.74 MG/DL (0.55-1.02); GLOMERULAR FILTRATION RATE > 60.0 (>32); GLUCOSE, FASTING 97 MG/DL (83-110); POTASSIUM SERUM 4.4 MEQ/L (3.5-5.1); SODIUM LEVEL 141 MEQ/L (136-145); TOTAL PROTEIN 7.1 GM/DL (6.4-8.2)
[2017-06-09 14:21] LABS: ALT/SGPT 21 U/L (12-78)
--- NOTE | 2017-06-09 14:35 | REP ---
PA and lateral chest: Comparisons are the portable chest dated 05/31/2017, PA and lateral views of the chest dated 05/01/[address] dated 03/15/2017. There are no infiltrates or effusions. Lung carbajal again appear hyperinflated suggestive of COPD, unchanged. Cardiac size is normal. There are sternotomy wires, unchanged. There are artifactual costochondral calcifications. There is demineralization and thoracic scoliosis convex right. Impression: No acute infiltrates or effusions. Hyperinflation, suggestive of COPD. Sternotomy wires. Scoliosis. Signed by Jaiden Monae MD 06/09/2017 02:27 P
[2017-06-09] MEDS ORDERED: IPRATROPIUM 0.5MG/ALBUTEROL 2.5MG INH SOL UD 3ML (DUONEB)(J7620) NEB ONE (15:00)
[2017-06-09 16:45] VITALS: O2SAT 88
[2017-06-09] MEDS ORDERED: PRED20TA PO (17:23)
[2017-06-09 18:08] VITALS: BP 143/63
--- NOTE | 2017-06-10 09:49 | ECGEPIP ---
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
== END 2017-06-09 18:12 | disposition home or self-care (01) ==
LOC: EDBD 12:33 → M ED 12:33
DX: J44.1 Chronic obstructive pulmonary disease with (acute) exacerbation (principal); M41.9 Scoliosis, unspecified; I25.10 Atherosclerotic heart disease of native coronary artery without angina pectoris; I25.2 Old myocardial infarction; I27.0 Primary pulmonary hypertension; Z86.73 Personal history of transient ischemic attack (TIA), and cerebral infarction without residual deficits; Z95.5 Presence of coronary angioplasty implant and graft; Z90.89 Acquired absence of other organs; Z87.891 Personal history of nicotine dependence; Z79.82 Long term (current) use of aspirin; Z79.899 Other long term (current) drug therapy

== ENCOUNTER 2017-06-12 12:37 | Emergency (ER) | payer MEDICARE, OTHER ==
[~2017-06-12] VITALS: Ht 152.4 cm; Wt 50.0 kg
[~2017-06-12 12:37] MED LIST changes: +oxygen
[2017-06-12] MEDS ORDERED: IPRATROPIUM 0.5MG/ALBUTEROL 2.5MG INH SOL UD 3ML (DUONEB)(J7620) NEB ONE (13:30)
[2017-06-12] MEDS ORDERED: ALPRAZolam 0.25 MG TAB PO ONE (14:30)
[2017-06-12 16:41] VITALS: BP 160/74
[2017-06-12] MEDS ORDERED: PRED20TA PO (21:06)
[2017-06-12] MEDS ORDERED: MECL12.575 PO (21:06)
[2017-06-12] MEDS ORDERED: CETI10TA PO (21:06)
[2017-06-12] MEDS ORDERED: ATOR40TA75 PO (21:06)
[2017-06-12] MEDS ORDERED: ATRO0.063 INH (21:06)
[2017-06-12] MEDS ORDERED: SYNT25TA PO (21:06)
== END 2017-06-12 17:01 | disposition home or self-care (01) ==
LOC: M ED 12:37 → EDBD 12:37 → M ED 17:01
DX: J44.1 Chronic obstructive pulmonary disease with (acute) exacerbation (principal); Z88.1 Allergy status to other antibiotic agents; Z88.8 Allergy status to other drugs, medicaments and biological substances; Z79.899 Other long term (current) drug therapy

== ENCOUNTER 2017-06-12 17:53 | Inpatient (IN) | payer MEDICARE, OTHER ==
[~2017-06-12] VITALS: Ht 152.4 cm; Wt 58.1 kg
[2017-06-12] MEDS: IPRATROPIUM 0.5MG/ALBUTEROL 2.5MG INH SOL UD 3ML (DUONEB)(J7620) NEB PRN ×2 (19:57→19:58)
[2017-06-12 20:06] LABS: BASO # 0.1 K/mm3 (0.0-0.2); BASO % 1.4 % (0.0-1.0); EOS # 0.5 K/mm3 (0.0-0.50); EOS % 10.8 % (0.0-3.0); LARGE UNSTAINED CELL # 0.1 K/mm3 (0.0-0.4); LARGE UNSTAINED CELL % 1.6 % (0.0-4.0); LYMPH # 1.3 K/mm3 (1.5-4.5); LYMPH % 25.3 % (24.0-44.0); MEAN CORPUSCULAR HEMOGLOBIN 27.9 pg (27.0-33.0); MEAN CORPUSCULAR HGB CONC 31.4 g/dl (32.0-36.5); MEAN CORPUSCULAR VOLUME 88.7 fl (80.0-96.0); MONO # 0.5 K/mm3 (0.0-0.8); MONO % 9.7 % (0.0-5.0); NEUTROPHILS # 2.6 K/mm3 (1.8-7.7); NEUTROPHILS % 51.2 % (36.0-66.0); PLATELET COUNT, AUTOMATED 547 k/mm3 (150-450); RED CELL DISTRIBUTION WIDTH 15.2 % (11.5-14.5)
[2017-06-12] MEDS ORDERED: LORazepam 2 MG/ML VIAL (J2060) IV STA (20:32)
[2017-06-12] MEDS ORDERED: LORazepam 2 MG/ML VIAL (J2060) As Ordered ONE (20:33)
[2017-06-12 20:39] LABS: VENOUS BASE EXCESS 0.2 (-2.0-2.0); VENOUS O2 SATURATION 88.9 % (60.0-80.0); VENOUS PARTIAL PRESSURE CO2 61.8 mmHg (38.0-50.0); VENOUS PARTIAL PRESSURE O2 64.1 mmHg (30.0-50.0); VENOUS STANDARD HCO3 24.5 MEQ/L; VENOUS TOTAL CO2 30.1 MEQ/L (24.0-28.0)
[2017-06-12 20:41] LABS: ANION GAP 7 MEQ/L (8-16); BLOOD UREA NITROGEN 10 MG/DL (7-18); CALCIUM LEVEL 9.2 MG/DL (8.8-10.2); CARBON DIOXIDE LEVEL 30 MEQ/L (21-32); CHLORIDE LEVEL 105 MEQ/L (98-107); CREATININE FOR GFR 0.63 MG/DL (0.55-1.02); GLOMERULAR FILTRATION RATE > 60.0 (>32); GLUCOSE, FASTING 109 MG/DL (83-110); POTASSIUM SERUM 4.2 MEQ/L (3.5-5.1); SODIUM LEVEL 142 MEQ/L (136-145)
[2017-06-12] MEDS ORDERED: methylPREDNISolone INJ 125 MG/2 ML VIAL (J2930) IV ONE (20:45)
[2017-06-12 21:02] LABS: ABG BASE EXCESS 0.6 (-2.0-2.0); ABG HCO3 27.4 MEQ/L (22.0-26.0); ABG PARTIAL PRESSURE CO2 54.2 mmHg (35.0-45.0); ABG PARTIAL PRESSURE O2 70.7 mmHg (75.0-100.0); ABG TOTAL CO2 29.1 MEQ/L (23.0-31.0); ABG pH (ARTERIAL) 7.322 UNITS (7.350-7.450)
[2017-06-12] MEDS ORDERED: SYNT25TA PO (21:06)
[2017-06-12] MEDS ORDERED: PRED20TA PO (21:06)
[2017-06-12] MEDS ORDERED: ATRO0.063 INH (21:06)
[2017-06-12] MEDS ORDERED: ATOR40TA75 PO (21:06)
[2017-06-12] MEDS ORDERED: MECL12.575 PO (21:06)
[2017-06-12] MEDS ORDERED: CETI10TA PO (21:06)
[2017-06-12] MEDS ORDERED: IPRATROPIUM 0.5MG/ALBUTEROL 2.5MG INH SOL UD 3ML (DUONEB)(J7620) NEB PRN (21:15)
[2017-06-12] MEDS ORDERED: MAG SULF 1GM/100ML (MAG RUN) 1 GM in APPROPRIATE DILUENT 1 EA IV ONE (21:15)
[2017-06-12] MEDS ORDERED: ACETAMINOPHEN TAB 650MG DOSE (2X325MG) PO PRN (21:30)
[2017-06-12] MEDS ORDERED: NITROGLYCERIN 0.4 MG SUBL TABLET SL PRN (21:30)
[2017-06-12] MEDS ORDERED: MECLIZINE 12.5 MG TAB PO PRN (21:30)
[2017-06-12] MEDS ORDERED: tiZANidine 4 MG TAB PO PRN (21:30)
[2017-06-12 22:00] VITALS: BP_SYST 171; BP_SYST 180; BP_DIAS 76; BP_DIAS 93
[2017-06-13] MEDS: IPRATROPIUM 0.5MG/ALBUTEROL 2.5MG INH SOL UD 3ML (DUONEB)(J7620) NEB SCH ×3 (00:38→15:16)
--- NOTE | 2017-06-13 01:20 | HPEPDOC ---
Medical History and Physical Date of Admission Jun 12, 2017 at 21:20 History and Physical PRIMARY CARE PROVIDER: Dr. Lomeli Neurologist: Dr. Justice ATTENDING: Gatito Crowe DO CHIEF COMPLAINT: Increasing shortness of breath and anxiety HISTORY OF PRESENT ILLNESS: 82-year-old female recently released from the hospital for having recurrence of COPD exacerbation, presents this evening with increasing shortness of breath, wheezing on exertion. Expiratory wheeze noted and requiring oxygen, increased oxygen supplementation. She denies fevers, chills, change or decrease in appetite. She denies chest pain. Her cough has been intermittently nonproductive. She is able produce some minimal mucus which is clear. States she try to take her inhaler inhalers at home and has increased her oxygen to 4 L but could not breathe. Emergency department providers have attempted repeated nebulizers and Solu-Medrol with little help. Hospitalist was called for admission PAST MEDICAL HISTORY: 1. Chronic obstructive pulmonary disease (COPD). 2. Anxiety. 3. Coronary artery disease (CAD) with stenting. 4. Pulmonary hypertension. 5. History of transient ischemic attack (TIA). 6. History of malaria. 7. History of dysentery. PAST SURGICAL HISTORY: 1. Right kidney procedure involving opening a duct. 2. Aortic surgery. 3. Cardiac stent placement. 4. Appendectomy. SOCIAL HISTORY: The patient lives at home with her son. She was a former smoker but quit 30 years ago. Denies any alcohol use. FAMILY HISTORY: Noncontributory ALLERGIES: LIDOCAINE, LEVAQUIN, and PROCAINE. REVIEW OF SYSTEMS: CONSTITUTIONAL: No fever, chills, weight loss, nausea or vomiting . HEENT: No headache, lightheadedness, blurred or loss of vision. No difficulty with speech or swallow. CARDIOVASCULAR: No chest pain, palpitations, paroxysmal nocturnal dyspnea or lower extremity edema RESPIRATORY: Positive cough with intermittent productive sputum which is clear. Expiratory wheezing and dyspnea on exertion. No hemoptysis. Positive history of COPD, O2 dependent. She states she's recently increased her oxygen supplementation at home. GENITOURINARY: No dysuria, frequency, or discharge MUSCULOSKELETAL: No bone, muscle or joint pain. GASTROINTESTINAL: No Nasuea, vomitting, change in appetite. Bowel movements are regular without hematochezia or melena. No bladder or bowel incontinence. SKIN: No complaint of lesions, abrasions or rashes NEUROLOGICAL: No blurred vision, headaches, parasthesias or paralysis PSYCHIATRIC: No depression, anxiety, audiovisual hallucinations. No suicidal ideations. ENDOCRINE: Denies history of diabetes or thyroid disorder. No history of endocrine abnormalities. HEMATOLOGIC/LYMPHATIC: No lumpbs, bumps or swelling of neck, axilla or groin. No night sweats or weight loss. HOME MEDICATIONS: Please see below. PHYSICAL EXAMINATION: VITAL SIGNS: See below GENERAL APPEARANCE: She complains of being short of breath, lethargic but is able to speak in complete sentences.. HEENT: Unremarkable. CARDIOVASCULAR: Regular rate and rhythm. LUNGS: Major bibasilar breath sounds with expiratory wheezing, prolonged expiration phase. ABDOMEN: Soft, anteroseptal positive bowel sounds, mass or rebound. MUSCULOSKELETAL: No limitations. EXTREMITIES: No edema, no calf tenderness. NEUROLOGICAL: Cranial nerves II through XII grossly intact. PSYCHIATRIC: No suicidal ideation. No audiovisual examination. LABORATORY DATA: See below. Twelve-lead EKG: Sinus rhythm, right bundle branch block, ventricular rate of 89 bpm, however, no acute ST-T wave changes no changes from prior EKG dated 02/2017. IMAGING: Chest x-ray PA and lateral views: Chronic changes. No acute consolidation or infiltrate. Hyperinflation is noted, otherwise no acute cardiopulmonary processes. Sternal wiring is noted, status post CABG procedure ASSESSMENT: #1. Acute respiratory failure with hypoxia. #2. Depression and anxiety. #3. History of coronary artery disease. No chest pain complaints. #4. Hyperlipidemia with history of coronary artery disease. #5. History of pulmonary hypertension.]. . PLAN: . She will be admitted to medical floor. Will be seen by Dr. Kebede tomorrow. We' ll continue with DuoNeb's IV Solu-Medrol incentive spirometry. Encouraged to ambulate. Continue with her home medications. Check sputum culture. And will order a PFS consult since patient does appear to be a high utilizer. DVT prophylaxis: Lovenox. Disposition: Patient will be admitted observation and I've requested PFS to see the patient due to her high utilization of resources to see if we can help her better manage her symptoms at home and keep close follow-up. Vital Signs Vital Signs Date Time Temp Pulse Resp B/P (MAP) Pulse Ox O2 Delivery O2 Flow Rate FiO2 06/13/17 00:05 96 18 99 Nasal Cannula 6.0 06/13/17 00:00 118/56 (76) 06/12/17 23:00 98.0 06/12/17 21:04 28 Laboratory Data Labs 24H Laboratory Tests 2 06/12/17 19:55: White Blood Count 5.0, Red Blood Count 3.97L, Hemoglobin 11.1L, Hematocrit 35.2L , Mean Corpuscular Volume 88.7, Mean Corpuscular Hemoglobin 27.9, Mean Corpuscular Hemoglobin Concent 31.4L, Red Cell Distribution Width 15.2H, Platelet Count 547H, Neutrophils (%) (Auto) 51.2, Lymphocytes (%) (Auto) 25.3, Monocytes (%) (Auto) 9.7H, Eosinophils (%) (Auto) 10.8H, Basophils (%) (Auto) 1.4H, Neutrophils # (Auto) 2.6, Lymphocytes # (Auto) 1.3L, Monocytes # (Auto) 0.5, Eosinophils # (Auto) 0.5, Basophils # (Auto) 0.1, Large Unclassified Cells % 1.6, Large Unclassified Cells # 0.1, Blood Gas Bicarbonate Standard 25.0, Arterial Blood pH 7.322L, Arterial Blood Partial Pressure CO2 54.2H, Arterial Blood Partial Pressure O2 70.7L, Arterial Blood Total CO2 29.1, Arterial Blood HCO3 27.4H, Arterial Blood Base Excess 0.6, Arterial Blood Oxygen Saturation 92.5L, Anion Gap 7L, Glomerular Filtration Rate > 60.0, Blood Urea Nitrogen 10, Creatinine 0.63, Sodium Level 142, Potassium Level 4.2, Chloride Level 105, Carbon Dioxide Level 30, Calcium Level 9.2, Total Creatine Kinase 116, Creatine Kinase MB 4.1H, Creatine Kinase MB Relative Index 3.53, Troponin I < 0.02 06/12/17 20:28: Blood Gas Bicarbonate Standard 24.5, Venous Blood pH 7.277L, Venous Blood Partial Pressure CO2 61.8H, Venous Blood Partial Pressure O2 64.1H, Venous Blood Total Carbon Dioxide 30.1H, Venous Blood HCO3 28.2H, Venous Blood Oxygen Saturation 88.9H, Venous Blood Base Excess 0.2 CBC/BMP Laboratory Tests 06/12/17 19:55 Red Blood Count 3.97 L, Mean Corpuscular Volume 88.7, Mean Corpuscular Hemoglobin 27.9, Mean Corpuscular Hemoglobin Concent 31.4 L, Red Cell Distribution Width 15.2 H, Neutrophils (%) (Auto) 51.2, Lymphocytes (%) (Auto) 25.3, Monocytes (%) (Auto) 9.7 H, Eosinophils (%) (Auto) 10.8 H, Basophils (%) ( Auto) 1.4 H, Neutrophils # (Auto) 2.6, Lymphocytes # (Auto) 1.3 L, Monocytes # ( Auto) 0.5, Eosinophils # (Auto) 0.5, Basophils # (Auto) 0.1, Calcium Level 9.2, Total Creatine Kinase 116 Home Medications Scheduled Amlodipine Besylate (Amlodipine Besylate) 10 Mg Tab, 10 MG PO DAILY Aspirin (Aspirin 81) 81 Mg Tab, 81 MG PO DAILY Atorvastatin Calcium (Atorvastatin Calcium) 40 Mg Tab, 40 MG PO QHS Calcium/Vitamin D (Calcium 600 + D 600-400 mg-Unit) 1 Tab Tab, 1 TAB PO DAILY Cetirizine HCl (Cetirizine HCl) 10 Mg Tab, 10 MG PO DAILY Levothyroxine Sodium (Synthroid) 25 Mcg Tab, 25 MCG PO DAILY Prednisone (Prednisone) 20 Mg Tab, 40 MG PO DAILY PRESCRIBED 8/4 IN EVENING; UNSURE OF FIRST DOSE Scheduled PRN Acetaminophen (Tylenol) 325 Mg Tab, 650 MG PO Q4H PRN for PAIN Albuterol Sulfate (Ventolin Hfa) 200 Puff/8 Gm Aers, 2 PUFF INH Q4H PRN for SHORTNESS OF BREATH Albuterol Sulfate (Albuterol Sulfate) 2.5 Mg/3 Ml Nebu, 2.5 MG INH Q4H PRN for SHORTNESS OF BREATH Alprazolam (Alprazolam) 0.25 Mg Tab, 0.25 MG PO TID PRN for ANXIETY Ipratropium [place] (Atrovent Hfa) 17 Mcg/Act Aer, 34 MCG INH Q4H PRN for SHORTNESS OF BREATH Meclizine HCl (Meclizine HCl) 12.5 Mg Tab, 12.5 MG PO QID PRN for DIZZINESS Nitroglycerin (Nitrostat) 0.4 Mg Subl, 0.4 MG SL NITRO PRN for CHEST PAIN Tizanidine Hydrochloride (Tizanidine HCl) 2 Mg Cap, 2 MG PO TID PRN for MUSCLE SPASMS Allergies Coded Allergies: Levofloxacin (Unverified Allergy, Intermediate, 06/12/17) Procaine (Verified Allergy, Mild, RASH, 06/12/17) GATITO CROWE DO Jun 13, 2017 01:20
[2017-06-13] MEDS: LEVOTHYROXINE 25MCG TABLET (0.025MG) PO SCH (05:17)
[2017-06-13] MEDS: HEPARIN SOD (PORCINE) 5000 UNITS/ML VIAL SC SCH ×4 (05:17→20:06)
[2017-06-13] MEDS: methylPREDNISolone INJ 125 MG/2 ML VIAL (J2930) IV SCH ×3 (05:18→20:07)
[2017-06-13 06:00] VITALS: BP 128/62
[2017-06-13 06:56] LABS: MEAN CORPUSCULAR HEMOGLOBIN 28.4 pg (27.0-33.0); MEAN CORPUSCULAR HGB CONC 32.1 g/dl (32.0-36.5); MEAN CORPUSCULAR VOLUME 88.5 fl (80.0-96.0); WHITE BLOOD COUNT 2.9 K/mm3 (4.0-10.0)
[2017-06-13 07:08] LABS: ANION GAP 10 MEQ/L (8-16); BLOOD UREA NITROGEN 13 MG/DL (7-18); CALCIUM LEVEL 8.8 MG/DL (8.8-10.2); CARBON DIOXIDE LEVEL 26 MEQ/L (21-32); CHLORIDE LEVEL 105 MEQ/L (98-107); GLOMERULAR FILTRATION RATE > 60.0 (>32); GLUCOSE, FASTING 152 MG/DL (83-110); POTASSIUM SERUM 4.6 MEQ/L (3.5-5.1); SODIUM LEVEL 141 MEQ/L (136-145)
--- NOTE | 2017-06-13 07:25 | REP ---
PA and lateral chest: Comparison is the PA and lateral chest study of 06/09/2017. There are no focal infiltrates. No effusions. Cardiac size is normal. The abbey and mediastinum are unremarkable. Sternotomy wires are again identified. There is demineralization. There is thoracic scoliosis convex right, unchanged. Costochondral calcifications are again identified. Lung carbajal again appear hyperinflated compatible with COPD, unchanged. Impression: No significant interval change. Signed by Jaiden Monae MD 06/13/2017 07:16 A
[2017-06-13] MEDS: amLODIPine 10 MG TAB PO SCH (09:22)
[2017-06-13] MEDS: CALCIUM/VITAMIN D 500 MG TAB PO SCH (09:23)
[2017-06-13] MEDS: CETIRIZINE (ZyrTEC) 10 MG TAB PO SCH (09:23)
[2017-06-13] MEDS: ASPIRIN 81 MG ENTERIC TAB PO SCH (09:23)
[2017-06-13] MEDS: DOCUSATE SODIUM 100 MG CAP PO SCH ×2 (09:23→20:07)
--- NOTE | 2017-06-13 10:40 | ECGEPIP ---
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
[2017-06-13 14:00] VITALS: BP 120/61
[2017-06-13 15:33] VITALS: O2SAT 96
[2017-06-13] MEDS: ATORVASTATIN 20 MG TAB PO SCH (20:07)
[2017-06-13] MEDS: ALPRAZolam 0.25 MG TAB PO PRN (20:07)
[2017-06-13 22:00] VITALS: BP 122/56
[2017-06-14] MEDS: IPRATROPIUM 0.5MG/ALBUTEROL 2.5MG INH SOL UD 3ML (DUONEB)(J7620) NEB SCH ×3 (00:23→15:16)
[2017-06-14] MEDS: LEVOTHYROXINE 25MCG TABLET (0.025MG) PO SCH (05:22)
[2017-06-14] MEDS: methylPREDNISolone INJ 125 MG/2 ML VIAL (J2930) IV SCH ×3 (05:22→21:07)
[2017-06-14] MEDS: HEPARIN SOD (PORCINE) 5000 UNITS/ML VIAL SC SCH ×3 (05:22→21:07)
[2017-06-14 06:00] VITALS: BP 116/56
[2017-06-14 07:12] LABS: MEAN CORPUSCULAR HEMOGLOBIN 28.1 pg (27.0-33.0); MEAN CORPUSCULAR HGB CONC 32.1 g/dl (32.0-36.5); MEAN CORPUSCULAR VOLUME 87.5 fl (80.0-96.0); RED CELL DISTRIBUTION WIDTH 15.1 % (11.5-14.5); WHITE BLOOD COUNT 8.2 K/mm3 (4.0-10.0)
[2017-06-14 07:19] LABS: ANION GAP 9 MEQ/L (8-16); BLOOD UREA NITROGEN 28 MG/DL (7-18); CALCIUM LEVEL 9.2 MG/DL (8.8-10.2); CARBON DIOXIDE LEVEL 28 MEQ/L (21-32); CHLORIDE LEVEL 104 MEQ/L (98-107); CREATININE FOR GFR 0.74 MG/DL (0.55-1.02); GLOMERULAR FILTRATION RATE > 60.0 (>32); GLUCOSE, FASTING 162 MG/DL (83-110); POTASSIUM SERUM 4.5 MEQ/L (3.5-5.1); SODIUM LEVEL 141 MEQ/L (136-145)
[2017-06-14] MEDS: DOCUSATE SODIUM 100 MG CAP PO SCH ×2 (09:00→21:00)
[2017-06-14] MEDS: CALCIUM/VITAMIN D 500 MG TAB PO SCH (09:15)
[2017-06-14] MEDS: CETIRIZINE (ZyrTEC) 10 MG TAB PO SCH (09:15)
[2017-06-14] MEDS: ASPIRIN 81 MG ENTERIC TAB PO SCH (09:15)
[2017-06-14] MEDS: amLODIPine 10 MG TAB PO SCH (09:15)
[2017-06-14 14:00] VITALS: BP 141/65
--- NOTE | 2017-06-14 15:05 | IPNPDOC ---
Subjective Date Seen The patient was seen on 06/14/17. Subjective Chief Complaint/HPI Patient seen and examined at the bedside. States that her respiratory status has marginally improved. Denies any other acute complaints at this time. Objective Physical Examination General Exam: Positive: Alert, Cooperative, No Acute Distress ENT Exam: Positive: Atraumatic, Mucous membr. moist/pink Neck Exam: Negative: JVD Chest Exam: Positive: Diminished, Negative: Rales, Wheezing Heart Exam: Positive: Rate Normal, Normal S1, Normal S2 Abdomen Exam: Positive: Soft, Negative: Tenderness Extremity Exam: Negative: Tenderness, Swelling Psych Exam: Positive: Oriented x 3 Assessment /Plan Plan/VTE VTE Prophylaxis Ordered?: Yes Plan Acute Respiratory Failure with Hypoxia Currently on her baseline of 2L of oxygen CXR with no acute findings On IV Steroids Cont serial Nebs, Albuterol Patient's respiratory status is slowly improving today--Able to speak in full sentences, and is not using any accessory muscles I did discuss the case with Dr. Balderas at the request of the patient's son Jaden--She states that she agrees with the treatment plan outlined above, and that the patient should be seen in the outpatient setting when she is optimized for further evaluation for possible Trilogy device. History of Coronary artery disease (CAD) with stenting Cont on aspirin, statin History of Pulmonary hypertension likely 2/2 # 1 2D ECHO from 04/2017 noted History of transient ischemic attack (TIA) Cont on aspirin and statin History of diastolic heart failure Appears euvolemic at this time We will cont to monitor Hypertension, stable Cont Norvasc Hypothyroidism Cont Synthroid History of nephrectomy Renal function stable. History of Anxiety, stable Xanax as needed DVT Prophylaxis Heparin SC Prognosis - long-term prognosis poor Dispo--we will continue the patient on IV steroids at this time and down titrate dosing as tolerated. Will continue to monitor the patient's respiratory status. 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 I did update the patient's son at the bedside and reached out to the pulmonary service as per his request. VS, I&O, 24H, Fishbone Vital Signs/I&O Vital Signs Date Time Temp Pulse Resp B/P (MAP) Pulse Ox O2 Delivery O2 Flow Rate FiO2 06/14/17 09:15 98 116/56 06/14/17 06:00 97.8 18 85 Nasal Cannula 2.0 06/12/17 21:04 28 I&O- Last 24 Hours up to 6 AM 06/14/17 05:59 Intake Total 1340 ml Balance 1340 ml Laboratory Data 24H LABS Laboratory Tests 2 06/14/17 06:47: Anion Gap 9, Glomerular Filtration Rate > 60.0, Blood Urea Nitrogen 28#H, Creatinine 0.74, Sodium Level 141, Potassium Level 4.5, Chloride Level 104, Carbon Dioxide Level 28, Calcium Level 9.2 CBC/BMP Laboratory Tests 06/14/17 06:47 Red Blood Count 3.36 L, Mean Corpuscular Volume 87.5, Mean Corpuscular Hemoglobin 28.1, Mean Corpuscular Hemoglobin Concent 32.1, Red Cell Distribution Width 15.1 H, Calcium Level 9.2 HAYLIE CHARLTON MD Jun 14, 2017 15:05
[2017-06-14] MEDS: ALPRAZolam 0.25 MG TAB PO PRN (21:05)
[2017-06-14] MEDS: ATORVASTATIN 20 MG TAB PO SCH (21:05)
[2017-06-14 22:00] VITALS: BP 131/60
[2017-06-15] MEDS: IPRATROPIUM 0.5MG/ALBUTEROL 2.5MG INH SOL UD 3ML (DUONEB)(J7620) NEB SCH ×4 (00:34→22:44)
[2017-06-15 06:00] VITALS: BP 137/66
[2017-06-15] MEDS: HEPARIN SOD (PORCINE) 5000 UNITS/ML VIAL SC SCH ×3 (06:00→22:00)
[2017-06-15] MEDS: methylPREDNISolone INJ 125 MG/2 ML VIAL (J2930) IV SCH ×3 (06:00→22:37)
[2017-06-15] MEDS: LEVOTHYROXINE 25MCG TABLET (0.025MG) PO SCH (06:32)
[2017-06-15 06:48] LABS: MEAN CORPUSCULAR HEMOGLOBIN 27.9 pg (27.0-33.0); MEAN CORPUSCULAR HGB CONC 31.3 g/dl (32.0-36.5); MEAN CORPUSCULAR VOLUME 89.2 fl (80.0-96.0); RED CELL DISTRIBUTION WIDTH 15.2 % (11.5-14.5); WHITE BLOOD COUNT 11.2 K/mm3 (4.0-10.0)
[2017-06-15 07:03] LABS: ANION GAP 8 MEQ/L (8-16); BLOOD UREA NITROGEN 34 MG/DL (7-18); CALCIUM LEVEL 8.7 MG/DL (8.8-10.2); CARBON DIOXIDE LEVEL 27 MEQ/L (21-32); CHLORIDE LEVEL 108 MEQ/L (98-107); CREATININE FOR GFR 0.78 MG/DL (0.55-1.02); GLOMERULAR FILTRATION RATE > 60.0 (>32); GLUCOSE, FASTING 152 MG/DL (83-110); POTASSIUM SERUM 4.1 MEQ/L (3.5-5.1); SODIUM LEVEL 143 MEQ/L (136-145)
[2017-06-15] MEDS: DOCUSATE SODIUM 100 MG CAP PO SCH ×2 (09:00→21:00)
[2017-06-15] MEDS: CETIRIZINE (ZyrTEC) 10 MG TAB PO SCH (09:19)
[2017-06-15] MEDS: CALCIUM/VITAMIN D 500 MG TAB PO SCH (09:19)
[2017-06-15] MEDS: ASPIRIN 81 MG ENTERIC TAB PO SCH (09:19)
[2017-06-15] MEDS: amLODIPine 10 MG TAB PO SCH (09:19)
[2017-06-15] MEDS: IPRATROPIUM 0.5MG/ALBUTEROL 2.5MG INH SOL UD 3ML (DUONEB)(J7620) NEB PRN (11:46)
--- NOTE | 2017-06-15 12:19 | IPNPDOC ---
Subjective Date Seen The patient was seen on 06/15/17. Subjective Chief Complaint/HPI Patient seen and examined at the bedside this morning. Denies any acute complaints at this time, she reports that her shortness of breath is slowly improving. Objective Physical Examination General Exam: Positive: Alert, Cooperative, No Acute Distress ENT Exam: Positive: Atraumatic, Mucous membr. moist/pink Neck Exam: Negative: JVD Chest Exam: Positive: Diminished, Negative: Rales, Wheezing Heart Exam: Positive: Rate Normal, Normal S1, Normal S2 Abdomen Exam: Positive: Soft, Negative: Tenderness Extremity Exam: Negative: Tenderness, Swelling Psych Exam: Positive: Oriented x 3 Assessment /Plan Plan/VTE VTE Prophylaxis Ordered?: Yes Plan Acute Respiratory Failure with Hypoxia Currently on her baseline of 2L of oxygen CXR with no acute findings On IV Steroids--down-tapering Cont serial Nebs, Albuterol Patient's respiratory status is slowly improving today--Able to speak in full sentences, and is not using any accessory muscles We will continue to monitor the patient's respiratory status History of Coronary artery disease (CAD) with stenting Cont on aspirin, statin History of Pulmonary hypertension likely 2/2 # 1 2D ECHO from 04/2017 noted History of transient ischemic attack (TIA) Cont on aspirin and statin History of diastolic heart failure Appears euvolemic at this time We will cont to monitor Hypertension, stable Cont Norvasc Hypothyroidism Cont Synthroid History of nephrectomy Renal function stable. History of Anxiety, stable Xanax as needed DVT Prophylaxis Heparin SC Prognosis - long-term prognosis poor Dispo--we will continue the patient on IV steroids at this time and down titrate dosing as tolerated. Will continue to monitor the patient's respiratory status. VS, I&O, 24H, Fishbone Vital Signs/I&O Vital Signs Date Time Temp Pulse Resp B/P (MAP) Pulse Ox O2 Delivery O2 Flow Rate FiO2 06/15/17 09:19 85 137/66 06/15/17 06:00 98.3 18 92 Nasal Cannula 2.0 06/12/17 21:04 28 I&O- Last 24 Hours up to 6 AM 06/15/17 06:00 Intake Total 240 ml Balance 240 ml Laboratory Data 24H LABS Laboratory Tests 2 06/15/17 06:14: Anion Gap 8, Glomerular Filtration Rate > 60.0, Blood Urea Nitrogen 34H, Creatinine 0.78, Sodium Level 143, Potassium Level 4.1, Chloride Level 108H, Carbon Dioxide Level 27, Calcium Level 8.7L CBC/BMP Laboratory Tests 06/15/17 06:14 Red Blood Count 3.24 L, Mean Corpuscular Volume 89.2, Mean Corpuscular Hemoglobin 27.9, Mean Corpuscular Hemoglobin Concent 31.3 L, Red Cell Distribution Width 15.2 H, Calcium Level 8.7 L HAYLIE CHARLTON MD Jun 15, 2017 12:19
[2017-06-15 14:00] VITALS: BP 133/67
[2017-06-15 22:00] VITALS: BP 140/63
[2017-06-15] MEDS: ALPRAZolam 0.25 MG TAB PO PRN (22:36)
[2017-06-15] MEDS: ATORVASTATIN 20 MG TAB PO SCH (22:37)
[2017-06-16] VITALS: BP 140/62
[2017-06-16] MEDS: HEPARIN SOD (PORCINE) 5000 UNITS/ML VIAL SC SCH ×4 (06:00→22:00)
[2017-06-16] MEDS: methylPREDNISolone INJ 125 MG/2 ML VIAL (J2930) IV SCH (06:33)
[2017-06-16] MEDS: LEVOTHYROXINE 25MCG TABLET (0.025MG) PO SCH (06:33)
[2017-06-16 07:11] LABS: MEAN CORPUSCULAR HEMOGLOBIN 28.1 pg (27.0-33.0); MEAN CORPUSCULAR HGB CONC 31.7 g/dl (32.0-36.5); MEAN CORPUSCULAR VOLUME 88.7 fl (80.0-96.0); RED CELL DISTRIBUTION WIDTH 15.3 % (11.5-14.5); WHITE BLOOD COUNT 10.2 K/mm3 (4.0-10.0)
[2017-06-16 07:21] LABS: ANION GAP 9 MEQ/L (8-16); BLOOD UREA NITROGEN 33 MG/DL (7-18); CALCIUM LEVEL 8.4 MG/DL (8.8-10.2); CARBON DIOXIDE LEVEL 27 MEQ/L (21-32); CHLORIDE LEVEL 109 MEQ/L (98-107); CREATININE FOR GFR 0.64 MG/DL (0.55-1.02); GLOMERULAR FILTRATION RATE > 60.0 (>32); GLUCOSE, FASTING 153 MG/DL (83-110); POTASSIUM SERUM 4.1 MEQ/L (3.5-5.1); SODIUM LEVEL 145 MEQ/L (136-145)
[2017-06-16] MEDS: IPRATROPIUM 0.5MG/ALBUTEROL 2.5MG INH SOL UD 3ML (DUONEB)(J7620) NEB SCH ×3 (08:19→23:49)
[2017-06-16] MEDS: DOCUSATE SODIUM 100 MG CAP PO SCH ×2 (08:50→21:00)
[2017-06-16] MEDS: ASPIRIN 81 MG ENTERIC TAB PO SCH (08:50)
[2017-06-16] MEDS: CALCIUM/VITAMIN D 500 MG TAB PO SCH (08:50)
[2017-06-16] MEDS: amLODIPine 10 MG TAB PO SCH (08:52)
[2017-06-16] MEDS: CETIRIZINE (ZyrTEC) 10 MG TAB PO SCH (08:53)
[2017-06-16] MEDS: IPRATROPIUM 0.5MG/ALBUTEROL 2.5MG INH SOL UD 3ML (DUONEB)(J7620) NEB PRN (10:11)
[2017-06-16] MEDS: ONDANSETRON 4MG/2ML VIAL (J2405) IV PRN (10:28)
[2017-06-16] MEDS: ALPRAZolam 0.25 MG TAB PO PRN ×2 (10:28→23:54)
[2017-06-16] MEDS: methylPREDNISolone INJ 40 MG/1 ML VIAL (J2920) IV SCH (16:44)
--- NOTE | 2017-06-16 16:49 | IPNPDOC ---
Subjective Date Seen The patient was seen on 06/16/17. Subjective Chief Complaint/HPI Patient seen and examined at the bedside this morning. States that her breathing is still slowly improving, but not yet back to her baseline. Denies any other acute complaints at this time. Objective Physical Examination General Exam: Positive: Alert, Cooperative, No Acute Distress ENT Exam: Positive: Atraumatic, Mucous membr. moist/pink Neck Exam: Negative: JVD Chest Exam: Positive: Diminished, Negative: Rales, Wheezing Heart Exam: Positive: Rate Normal, Normal S1, Normal S2 Abdomen Exam: Positive: Soft, Negative: Tenderness Extremity Exam: Negative: Tenderness, Swelling Psych Exam: Positive: Oriented x 3 Assessment /Plan Plan/VTE VTE Prophylaxis Ordered?: Yes Plan Acute Respiratory Failure with Hypoxia Currently on her baseline of 2L of oxygen CXR with no acute findings On IV Steroids--down-tapering Cont serial Nebs, Albuterol Patient's respiratory status is slowly improving today--Able to speak in full sentences, and is not using any accessory muscles We will continue to monitor the patient's respiratory status History of Coronary artery disease (CAD) with stenting Cont on aspirin, statin History of Pulmonary hypertension likely 2/ # 1 2D ECHO from 04/2017 noted History of transient ischemic attack (TIA) Cont on aspirin and statin History of diastolic heart failure Appears euvolemic at this time We will cont to monitor Hypertension, stable Cont Norvasc Hypothyroidism Cont Synthroid History of nephrectomy Renal function stable. History of Anxiety, stable Xanax as needed DVT Prophylaxis Heparin SC Prognosis - long-term prognosis poor Dispo--we will continue the patient on IV steroids at this time and down titrate dosing as tolerated. Will continue to monitor the patient's respiratory status. VS, I&O, [facility]I&O Vital Signs Date Time Temp Pulse Resp B/P (MAP) Pulse Ox O2 Delivery O2 Flow Rate FiO2 06/16/17 10:36 Nasal Cannula 2.0 06/16/17 08:52 102 140/62 06/16/17 00:00 98.7 20 94 06/12/17 21:04 28 I&O- Last 24 Hours up to 6 AM 06/16/17 06:00 Intake Total 120 ml Balance 120 ml Laboratory Data 24H LABS Laboratory Tests 2 06/16/17 06:18: Anion Gap 9, Glomerular Filtration Rate > 60.0, Blood Urea Nitrogen 33H, Creatinine 0.64, Sodium Level 145, Potassium Level 4.1, Chloride Level 109H, Carbon Dioxide Level 27, Calcium Level 8.4L CBC/BMP Laboratory Tests 06/16/17 06:18 Red Blood Count 3.23 L, Mean Corpuscular Volume 88.7, Mean Corpuscular Hemoglobin 28.1, Mean Corpuscular Hemoglobin Concent 31.7 L, Red Cell Distribution Width 15.3 H, Calcium Level 8.4 L HAYLIE CHARLTON MD Jun 16, 2017 16:49
--- NOTE | 2017-06-16 19:35 | ECGEPIP ---
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
[2017-06-16] MEDS ORDERED: ISOVUE-370 76% 100ML VIAL (Q9967) As Ordered ONE (19:42)
[2017-06-16 22:00] VITALS: BP 132/63
--- NOTE | 2017-06-16 22:00 | REPUSA ---
CLINICAL HISTORY: Rule out PE. TECHNIQUE: Multiple incremental axial, coronal and oblique images are obtained from the thoracic inle t to the upper abdomen. Intravenous contrast material was administered as per pulmonary embolism prot ocol. COMMENTS: There is left lower lobe consolidationpresent most compatible with pneumonia however follow-up is rec ommended to document resolution. A small left pleural effusion present. Scattered upper lobes predominant interlobular emphysema present. Scarring is seen in the right lung base. There is excellent opacification of pulmonary arterial system without evidence for pulmonary embolism . Aorta is of normal caliber without evidence for dissection or aneurysm. There is no evidence of hilar or mediastinal lymphadenopathy. The heart is moderately enlarged. Stat us post median sternotomy and CABG. Diffuse coronary calcifications are present. Moderate sized hiatal hernia is present. Thickening is noted of the distal esophageal wall as well as the GE junction wall. Consider follow-up with upper endoscopy. Images of the upper abdomen demonstrate no evidence of adrenal mass. The bony structures are free of lytic or blastic lesions. Multilevel degenerative changes are seen in volving the visualized thoracolumbar spine. Scattered calcifications are seen involving the aorta and major branches compatible with atherosclero sis. IMPRESSION: 1. No evidence for pulmonary embolism. 2. Left lower lobe consolidation is present most compatible with pneumonia however follow-up is fabiola mmended to document resolution. 3. Small left pleural effusion. 4. Scattered upper lobes predominant interlobular emphysema. 5. Moderate sized hiatal hernia. Thickening is noted of the distal esophageal wall as well as the GE junction wall. Consider follow-up with upper endoscopy.
[2017-06-16] MEDS: ATORVASTATIN 20 MG TAB PO SCH (23:54)
[2017-06-17] MEDS: IPRATROPIUM 0.5MG/ALBUTEROL 2.5MG INH SOL UD 3ML (DUONEB)(J7620) NEB PRN (02:02)
[2017-06-17] MEDS: ALPRAZolam 0.25 MG TAB PO PRN ×2 (02:48→14:30)
[2017-06-17] MEDS: LEVOTHYROXINE 25MCG TABLET (0.025MG) PO SCH (05:13)
[2017-06-17] MEDS: methylPREDNISolone INJ 40 MG/1 ML VIAL (J2920) IV SCH ×2 (05:14→17:52)
[2017-06-17] MEDS: HEPARIN SOD (PORCINE) 5000 UNITS/ML VIAL SC SCH ×3 (05:14→21:50)
[2017-06-17 06:00] VITALS: BP 138/62
[2017-06-17 06:39] LABS: MEAN CORPUSCULAR HEMOGLOBIN 28.1 pg (27.0-33.0); MEAN CORPUSCULAR HGB CONC 31.4 g/dl (32.0-36.5); MEAN CORPUSCULAR VOLUME 89.4 fl (80.0-96.0); RED CELL DISTRIBUTION WIDTH 15.2 % (11.5-14.5); WHITE BLOOD COUNT 9.5 K/mm3 (4.0-10.0)
[2017-06-17 07:04] LABS: ANION GAP 8 MEQ/L (8-16); BLOOD UREA NITROGEN 32 MG/DL (7-18); CALCIUM LEVEL 8.4 MG/DL (8.8-10.2); CARBON DIOXIDE LEVEL 29 MEQ/L (21-32); CHLORIDE LEVEL 105 MEQ/L (98-107); CREATININE FOR GFR 0.68 MG/DL (0.55-1.02); GLOMERULAR FILTRATION RATE > 60.0 (>32); GLUCOSE, FASTING 164 MG/DL (83-110); POTASSIUM SERUM 4.1 MEQ/L (3.5-5.1); SODIUM LEVEL 142 MEQ/L (136-145)
[2017-06-17] MEDS: IPRATROPIUM 0.5MG/ALBUTEROL 2.5MG INH SOL UD 3ML (DUONEB)(J7620) NEB SCH ×2 (07:25→14:58)
[2017-06-17] MEDS: AZITHROMYCIN INJ 500 MG, VIAL MATE ADAPTER 1 EACH in D5W 250 ML IV SCH (09:12)
[2017-06-17] MEDS: ASPIRIN 81 MG ENTERIC TAB PO SCH (09:12)
[2017-06-17] MEDS: CALCIUM/VITAMIN D 500 MG TAB PO SCH (09:12)
[2017-06-17] MEDS: DOCUSATE SODIUM 100 MG CAP PO SCH ×2 (09:13→21:50)
[2017-06-17] MEDS: amLODIPine 10 MG TAB PO SCH (09:13)
[2017-06-17] MEDS: cefTRIAXone SOD 1 GM in D5W MINI-BAG PLUS 50 ML IV SCH (09:13)
[2017-06-17] MEDS: CETIRIZINE (ZyrTEC) 10 MG TAB PO SCH (09:13)
--- NOTE | 2017-06-17 13:25 | IPNPDOC ---
Subjective Date Seen The patient was seen on 06/17/17. Subjective Chief Complaint/HPI Patient seen and examined at the bedside this morning. States that she does have an achy left shoulder, because she may have slept on it in an awkward position. Denies any other acute complaints at this time. Objective Physical Examination General Exam: Positive: Alert, Cooperative, No Acute Distress ENT Exam: Positive: Atraumatic, Mucous membr. moist/pink Neck Exam: Negative: JVD Chest Exam: Positive: Diminished, Negative: Rales, Wheezing Heart Exam: Positive: Rate Normal, Normal S1, Normal S2 Abdomen Exam: Positive: Soft, Negative: Tenderness Extremity Exam: Negative: Tenderness, Swelling Psych Exam: Positive: Oriented x 3 Assessment /Plan Plan/VTE VTE Prophylaxis Ordered?: Yes Plan Acute Respiratory Failure with Hypoxia Currently on her baseline of 2L of oxygen CXR with no acute findings On IV Steroids--down-tapering Cont serial Nebs, Albuterol Patient's respiratory status is slowly improving CTA of the Chest noted from 06/16-- LLL suggestive of possible PNA, patient started on Rocephin/Zithro We will continue to monitor the patient's respiratory status History of Coronary artery disease (CAD) with stenting Cont on aspirin, statin History of Pulmonary hypertension likely 2/ # 1 2D ECHO from 04/2017 noted History of transient ischemic attack (TIA) Cont on aspirin and statin History of diastolic heart failure Appears euvolemic at this time We will cont to monitor Hypertension, stable Cont Norvasc Hypothyroidism Cont Synthroid History of nephrectomy Renal function stable. History of Anxiety, stable Xanax as needed DVT Prophylaxis Heparin SC Prognosis - long-term prognosis poor Dispo--we will continue the patient on IV steroids at this time and down titrate dosing as tolerated. Will continue to monitor the patient's respiratory status. VS, I&O, 24H, Fishbone Vital Signs/I&O Vital Signs Date Time Temp Pulse Resp B/P (MAP) Pulse Ox O2 Delivery O2 Flow Rate FiO2 06/17/17 10:15 20 06/17/17 09:13 92 138/62 06/17/17 08:00 Nasal Cannula 2.0 06/17/17 06:00 98.1 97 06/12/17 21:04 28 I&O- Last 24 Hours up to 6 AM 06/17/17 05:59 Intake Total 480 ml Balance 480 ml Laboratory Data 24H LABS Laboratory Tests 2 06/16/17 18:30: Total Creatine Kinase 40, Creatine Kinase MB 3.1, Creatine Kinase MB Relative Index 7.75H, Troponin I 0.02 06/17/17 01:50: Total Creatine Kinase 48, Creatine Kinase MB 3.5, Creatine Kinase MB Relative Index 7.29H, Troponin I 0.02 06/17/17 05:54: Anion Gap 8, Glomerular Filtration Rate > 60.0, Blood Urea Nitrogen 32H, Creatinine 0.68, Sodium Level 142, Potassium Level 4.1, Chloride Level 105, Carbon Dioxide Level 29, Calcium Level 8.4L 06/17/17 10:08: Total Creatine Kinase 35, Creatine Kinase MB 2.6, Creatine Kinase MB Relative Index 7.42H, Troponin I 0.02 CBC/BMP Laboratory Tests 06/17/17 05:54 Red Blood Count 3.37 L, Mean Corpuscular Volume 89.4, Mean Corpuscular Hemoglobin 28.1, Mean Corpuscular Hemoglobin Concent 31.4 L, Red Cell Distribution Width 15.2 H, Calcium Level 8.4 L Microbiology Microbiology 06/16/17 MRSA Screen, Received Pending HAYLIE CHARLTON MD Jun 17, 2017 13:25
[2017-06-17 14:00] VITALS: BP 129/62
[2017-06-17] MEDS: ONDANSETRON 4MG/2ML VIAL (J2405) IV PRN (14:30)
[2017-06-17] MEDS: ATORVASTATIN 20 MG TAB PO SCH (21:50)
[2017-06-17 22:00] VITALS: BP 138/61
[2017-06-18] MEDS: IPRATROPIUM 0.5MG/ALBUTEROL 2.5MG INH SOL UD 3ML (DUONEB)(J7620) NEB SCH ×4 (00:14→22:25)
[2017-06-18] MEDS: methylPREDNISolone INJ 40 MG/1 ML VIAL (J2920) IV SCH (05:00)
[2017-06-18] MEDS: HEPARIN SOD (PORCINE) 5000 UNITS/ML VIAL SC SCH ×3 (05:26→22:00)
[2017-06-18] MEDS: LEVOTHYROXINE 25MCG TABLET (0.025MG) PO SCH (05:27)
[2017-06-18 06:00] VITALS: BP 124/60
[2017-06-18 06:20] LABS: MEAN CORPUSCULAR HEMOGLOBIN 28.5 pg (27.0-33.0); MEAN CORPUSCULAR HGB CONC 32.4 g/dl (32.0-36.5); MEAN CORPUSCULAR VOLUME 88.1 fl (80.0-96.0); RED CELL DISTRIBUTION WIDTH 14.8 % (11.5-14.5); WHITE BLOOD COUNT 8.4 K/mm3 (4.0-10.0)
[2017-06-18 06:38] LABS: ANION GAP 8 MEQ/L (8-16); BLOOD UREA NITROGEN 27 MG/DL (7-18); CARBON DIOXIDE LEVEL 29 MEQ/L (21-32); CHLORIDE LEVEL 104 MEQ/L (98-107); CREATININE FOR GFR 0.61 MG/DL (0.55-1.02); GLOMERULAR FILTRATION RATE > 60.0 (>32); GLUCOSE, FASTING 172 MG/DL (83-110); POTASSIUM SERUM 4.4 MEQ/L (3.5-5.1); SODIUM LEVEL 141 MEQ/L (136-145)
[2017-06-18] MEDS ORDERED: predniSONE 20 MG TAB PO SCH (09:00)
[2017-06-18] MEDS: cefTRIAXone SOD 1 GM in D5W MINI-BAG PLUS 50 ML IV SCH (09:00)
[2017-06-18 10:47] VITALS: BP 124/60
[2017-06-18] MEDS: CETIRIZINE (ZyrTEC) 10 MG TAB PO SCH (10:47)
[2017-06-18] MEDS: amLODIPine 10 MG TAB PO SCH (10:47)
[2017-06-18] MEDS: ASPIRIN 81 MG ENTERIC TAB PO SCH (10:47)
[2017-06-18] MEDS: CALCIUM/VITAMIN D 500 MG TAB PO SCH (10:48)
[2017-06-18] MEDS: DOCUSATE SODIUM 100 MG CAP PO SCH ×2 (10:48→22:44)
[2017-06-18] MEDS: AZITHROMYCIN INJ 500 MG, VIAL MATE ADAPTER 1 EACH in D5W 250 ML IV SCH (10:50)
[2017-06-18 14:00] VITALS: BP 114/58
--- NOTE | 2017-06-18 14:51 | IPNPDOC ---
Subjective Date Seen The patient was seen on 06/18/17. Subjective Chief Complaint/HPI Patient seen and examined at the bedside this morning. He states that her respiratory status is improving and that she has been able to walk around her room without any significant limitations. However, the patient states that she, "just generally feels tired." Denies any acute complaints of lightheadedness, dizziness, chest pain, palpitations, dumping, or any nausea/vomiting/diarrhea. Objective Physical Examination General Exam: Positive: Alert, Cooperative, No Acute Distress ENT Exam: Positive: Atraumatic, Mucous membr. moist/pink Neck Exam: Negative: JVD Chest Exam: Positive: Diminished, Negative: Rales, Wheezing Heart Exam: Positive: Rate Normal, Normal S1, Normal S2 Abdomen Exam: Positive: Soft, Negative: Tenderness Extremity Exam: Negative: Tenderness, Swelling Psych Exam: Positive: Oriented x 3 Assessment /Plan Plan/VTE VTE Prophylaxis Ordered?: Yes Plan Acute Respiratory Failure with Hypoxia Currently on her baseline of 2L of oxygen CXR with no acute findings Transitioned to PO Steroids--down-tapering Cont serial Nebs, Albuterol Patient's respiratory status is slowly improving CTA of the Chest noted from 06/16-- LLL suggestive of possible PNA, patient started on Rocephin/Zithro We will continue to monitor the patient's respiratory status History of Coronary artery disease (CAD) with stenting Cont on aspirin, statin History of Pulmonary hypertension likely 2/2 # 1 2D ECHO from 04/2017 noted History of transient ischemic attack (TIA) Cont on aspirin and statin History of diastolic heart failure Appears euvolemic at this time We will cont to monitor Hypertension, stable Cont Norvasc Hypothyroidism Cont Synthroid History of nephrectomy Renal function stable. History of Anxiety, stable Xanax as needed DVT Prophylaxis Heparin SC Prognosis - long-term prognosis poor Dispo--Will continue to monitor the patient's respiratory status. VS, I&O, 24H, Fishbone Vital Signs/I&O Vital Signs Date Time Temp Pulse Resp B/P (MAP) Pulse Ox O2 Delivery O2 Flow Rate FiO2 06/18/17 14:00 98.1 90 18 114/58 (76) 97 Nasal Cannula 2.0 06/12/17 21:04 28 I&O- Last 24 Hours up to 6 AM 06/18/17 05:59 Intake Total 540 ml Balance 540 ml Laboratory Data 24H LABS Laboratory Tests 2 06/18/17 05:46: Anion Gap 8, Glomerular Filtration Rate > 60.0, Blood Urea Nitrogen 27H, Creatinine 0.61, Sodium Level 141, Potassium Level 4.4, Chloride Level 104, Carbon Dioxide Level 29, Calcium Level 8.0L CBC/BMP Laboratory Tests 06/18/17 05:46 Red Blood Count 3.28 L, Mean Corpuscular Volume 88.1, Mean Corpuscular Hemoglobin 28.5, Mean Corpuscular Hemoglobin Concent 32.4, Red Cell Distribution Width 14.8 H, Calcium Level 8.0 L Microbiology Microbiology 06/16/17 MRSA Screen - Final, Complete HAYLIE CHARLTON MD Jun 18, 2017 14:51
[2017-06-18] MEDS ORDERED: MAALOX 30 ML SUSP *UDC PO PRN (15:45)
--- NOTE | 2017-06-18 17:16 | ECGEPIP ---
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
[2017-06-18 22:00] VITALS: BP 155/67
[2017-06-18] MEDS: ATORVASTATIN 20 MG TAB PO SCH (22:44)
[2017-06-19] VITALS: BP 124/50
[2017-06-19] MEDS: IPRATROPIUM 0.5MG/ALBUTEROL 2.5MG INH SOL UD 3ML (DUONEB)(J7620) NEB PRN ×3 (00:51→12:15)
[2017-06-19] MEDS: IPRATROPIUM 0.5MG/ALBUTEROL 2.5MG INH SOL UD 3ML (DUONEB)(J7620) NEB SCH ×2 (05:55→15:28)
[2017-06-19 06:00] VITALS: BP 130/61
[2017-06-19] MEDS: LEVOTHYROXINE 25MCG TABLET (0.025MG) PO SCH (06:00)
[2017-06-19] MEDS: HEPARIN SOD (PORCINE) 5000 UNITS/ML VIAL SC SCH (06:00)
[2017-06-19 08:05] LABS: MEAN CORPUSCULAR HEMOGLOBIN 27.9 pg (27.0-33.0); MEAN CORPUSCULAR HGB CONC 31.2 g/dl (32.0-36.5); MEAN CORPUSCULAR VOLUME 89.4 fl (80.0-96.0); RED CELL DISTRIBUTION WIDTH 15.4 % (11.5-14.5); WHITE BLOOD COUNT 11.2 K/mm3 (4.0-10.0)
[2017-06-19 08:17] LABS: ANION GAP 10 MEQ/L (8-16); BLOOD UREA NITROGEN 23 MG/DL (7-18); CALCIUM LEVEL 8.2 MG/DL (8.8-10.2); CARBON DIOXIDE LEVEL 30 MEQ/L (21-32); CHLORIDE LEVEL 104 MEQ/L (98-107); CREATININE FOR GFR 0.68 MG/DL (0.55-1.02); GLOMERULAR FILTRATION RATE > 60.0 (>32); GLUCOSE, FASTING 87 MG/DL (83-110); POTASSIUM SERUM 4.1 MEQ/L (3.5-5.1); SODIUM LEVEL 144 MEQ/L (136-145)
[2017-06-19] MEDS ORDERED: AUGM875T28 PO (11:40)
[2017-06-19] MEDS ORDERED: PRED10TA2 PO (11:40)
--- NOTE | 2017-06-19 15:11 | DS.PDOC ---
Discharge Summary General Date of Admission Jun 14, 2017 at 07:45 Date of Discharge 06/19/17 Discharge Summary PROCEDURES PERFORMED DURING STAY: None. ADMITTING DIAGNOSES: 1. . Acute respiratory failure with hypoxia 2. . Left lower lobe consolidation consistent with Pneumonia DISCHARGE DIAGNOSES: 1. . Acute respiratory failure with hypoxia 2. . Left lower lobe consolidation consistent with Pneumonia COMPLICATIONS/CHIEF COMPLAINT: Acute Respiratory Failure With Hypoxia. HISTORY OF PRESENT ILLNESS: . 82-year-old female with past medical history of COPD with the use of chronic oxygen, CAD, pulmonary hypertension, TIA, and anxiety presents to the ER with a chief complaint of shortness of breath. Of note, the patient has been admitted multiple times here for complaints of the same. During this instance, the patient states that she has been having increased cough, with minimal sputum production. She reports that she tried taking her inhaler therapies more frequently and increase her supplemental oxygen level, but she could not catch her breath. In the ER, the patient was given multiple nebulizer treatments as well as IV Solu-Medrol, but the patient's respiratory status did not improve. The patient was subsequently admitted to the hospitalist's service for further evaluation and management. During hospitalization, a CTA of the chest revealed left lower lobe consolidation compatible with pneumonia, and a small left pleural effusion. The patient was started on IV steroid and antibiotic therapy. Over the ensuing few days the patient noted that her respiratory status improved. She was noted to be ambulating around her room without any significant distress. At this time, the patient states that her respiratory status has returned back to its baseline. The patient's steroid and antibiotic therapy have been transitioned to by mouth. I did discuss the case with our on-call professor of floriculture Dr. Balderas, who recommended the patient follow-up with her primary professor of floriculture Dr. Justice as an outpatient for further evaluation and management. The patient has been advised to finish her course of steroids and antibiotics. She has also been advised to follow-up with her primary care physician within one week. In addition, should she have any acute emergencies, she has been advised to return to the ER. DISCHARGE MEDICATIONS: Please see below. ALLERGIES: Please see below. PHYSICAL EXAMINATION ON DISCHARGE: VITAL SIGNS: Please see below. General Exam: Positive: Alert, Cooperative, No Acute Distress ENT Exam: Positive: Atraumatic, Mucous membr. moist/pink Neck Exam: Negative: JVD Chest Exam: Positive: Diminished, Negative: Rales, Wheezing Heart Exam: Positive: Rate Normal, Normal S1, Normal S2 Abdomen Exam: Positive: Soft, Negative: Tenderness Extremity Exam: Negative: Tenderness, Swelling Psych Exam: Positive: Oriented x 3 LABORATORY DATA: Please see below. IMAGING: CLINICAL HISTORY: Rule out PE. TECHNIQUE: Multiple incremental axial, coronal and oblique images are obtained from the thoracic inlet to the upper abdomen. Intravenous contrast material was administered as per pulmonary embolism protocol. COMMENTS: There is left lower lobe consolidationpresent most compatible with pneumonia however follow-up is recommended to document resolution. A small left pleural effusion present. Scattered upper lobes predominant interlobular emphysema present. Scarring is seen in the right lung base. There is excellent opacification of pulmonary arterial system without evidence for pulmonary embolism. Aorta is of normal caliber without evidence for dissection or aneurysm. There is no evidence of hilar or mediastinal lymphadenopathy. The heart is moderately enlarged. Status post median sternotomy and CABG. Diffuse coronary calcifications are present. Moderate sized hiatal hernia is present. Thickening is noted of the distal esophageal wall as well as the GE junction wall. Consider follow-up with upper endoscopy. Images of the upper abdomen demonstrate no evidence of adrenal mass. The bony structures are free of lytic or blastic lesions. Multilevel degenerative changes are seen involving the visualized thoracolumbar spine. Scattered calcifications are seen involving the aorta and major branches compatible with atherosclerosis. IMPRESSION: 1. No evidence for pulmonary embolism. 2. Left lower lobe consolidation is present most compatible with pneumonia however follow-up is recommended to document resolution. 3. Small left pleural effusion. 4. Scattered upper lobes predominant interlobular emphysema. 5. Moderate sized hiatal hernia. Thickening is noted of the distal esophageal wall as well as the GE junction wall. Consider follow-up with upper endoscopy. PROGNOSIS: Medically stable, long-term prognosis poor ACTIVITY: As tolerated. DIET: . 2 g low sodium diet DISCHARGE PLAN: DISPOSITION: . Home DISCHARGE INSTRUCTIONS: 1. . Follow-up with primary care physician within one week 2. . Follow-up with Dr. Justice of pulmonary within one week 3. . Complete course of by mouth steroids and antibiotic 4. Follow-up imaging for resolution of pneumonia on CT scan of the chest, have outpatient EGD done in the future for further evaluation of distal esophageal wall thickening. DISCHARGE CONDITION: Stable. TIME SPENT ON DISCHARGE: Greater than 30 minutes. Vital Signs/I&Os Vital Signs Date Time Temp Pulse Resp B/P (MAP) Pulse Ox O2 Delivery O2 Flow Rate FiO2 06/19/17 06:00 98.3 83 18 130/61 (84) 97 Nasal Cannula 2.0 I&O- Last 24 Hours up to 6 AM 06/19/17 06:00 Intake Total 740 ml Balance 740 ml Laboratory Data Labs 24H Laboratory Tests 2 06/18/17 15:29: Bedside Glucose (Misc Panel) 254H 06/19/17 07:16: Anion Gap 10, Glomerular Filtration Rate > 60.0, Blood Urea Nitrogen 23H, Creatinine 0.68, Sodium Level 144, Potassium Level 4.1, Chloride Level 104, Carbon Dioxide Level 30, Calcium Level 8.2L CBC/BMP Laboratory Tests 06/19/17 07:16 Red Blood Count 3.43 L, Mean Corpuscular Volume 89.4, Mean Corpuscular Hemoglobin 27.9, Mean Corpuscular Hemoglobin Concent 31.2 L, Red Cell Distribution Width 15.4 H, Calcium Level 8.2 L FSBS Laboratory Tests Test 06/18/17 15:29 Range/Units Bedside Glucose (Misc Panel) 254 83-110 MG/DL Microbiology Microbiology 06/16/17 MRSA Screen - Final, Complete Discharge Medications Scheduled Amlodipine Besylate (Amlodipine Besylate) 10 Mg Tab, 10 MG PO DAILY, (Reported) Amoxicillin/Clavulanate [place] (Augmentin 875-125 mg) 1 Tab Tab, 875 MG PO BID Aspirin (Aspirin 81) 81 Mg Tab, 81 MG PO DAILY, (Reported) Atorvastatin Calcium (Atorvastatin Calcium) 40 Mg Tab, 40 MG PO QHS, (Reported) Calcium/Vitamin D (Calcium 600 + D 600-400 mg-Unit) 1 Tab Tab, 1 TAB PO DAILY, ( Reported) Cetirizine HCl (Cetirizine HCl) 10 Mg Tab, 10 MG PO DAILY, (Reported) Levothyroxine Sodium (Synthroid) 25 Mcg Tab, 25 MCG PO DAILY, (Reported) Prednisone (Prednisone) 10 Mg Tab, 10 MG PO TAPER Take 4 tabs daily x 3 days, then 3 tabs daily x 3 days, then 2 tabs daily x 3 days, then 1 tab daily x 3 days and stop Scheduled PRN Acetaminophen (Tylenol) 325 Mg Tab, 650 MG PO Q4H PRN for PAIN, (Reported) Albuterol Sulfate (Ventolin Hfa) 200 Puff/8 Gm Aers, 2 PUFF INH Q4H PRN for SHORTNESS OF BREATH, (Reported) Albuterol Sulfate (Albuterol Sulfate) 2.5 Mg/3 Ml Nebu, 2.5 MG INH Q4H PRN for SHORTNESS OF BREATH, (Reported) Alprazolam (Alprazolam) 0.25 Mg Tab, 0.25 MG PO TID PRN for ANXIETY, (Reported) Ipratropium [place] (Atrovent Hfa) 17 Mcg/Act Aer, 34 MCG INH Q4H PRN for SHORTNESS OF BREATH, (Reported) Meclizine HCl (Meclizine HCl) 12.5 Mg Tab, 12.5 MG PO QID PRN for DIZZINESS, ( Reported) Nitroglycerin (Nitrostat) 0.4 Mg Subl, 0.4 MG SL NITRO PRN for CHEST PAIN, ( Reported) Tizanidine Hydrochloride (Tizanidine HCl) 2 Mg Cap, 2 MG PO TID PRN for MUSCLE SPASMS, (Reported) Allergies Coded Allergies: Levofloxacin (Unverified Allergy, Intermediate, 06/12/17) Procaine (Verified Allergy, Mild, RASH, 06/12/17) HAYLIE CHARLTON MD Jun 19, 2017 15:11
== END 2017-06-19 17:50 | disposition home or self-care (01) | DRG 189 ==
LOC: M ED 17:53 → M ED INP 21:20 → M MS5PR 06-13 00:10 → OBSVTOIN 06-14 07:45
PROVIDERS: ADMIT Hospitalist; ATTEND Internal Medicine
DX: J96.01 Acute respiratory failure with hypoxia (principal); J18.9 Pneumonia, unspecified organism; J44.0 Chronic obstructive pulmonary disease with (acute) lower respiratory infection; E78.5 Hyperlipidemia, unspecified; I25.10 Atherosclerotic heart disease of native coronary artery without angina pectoris; I27.2 Other secondary pulmonary hypertension; I10 Essential (primary) hypertension; F41.9 Anxiety disorder, unspecified; E03.9 Hypothyroidism, unspecified; F32.9 Major depressive disorder, single episode, unspecified; Z79.82 Long term (current) use of aspirin; Z79.899 Other long term (current) drug therapy; Z88.1 Allergy status to other antibiotic agents; Z88.8 Allergy status to other drugs, medicaments and biological substances; Z99.81 Dependence on supplemental oxygen; Z95.9 Presence of cardiac and vascular implant and graft, unspecified; Z87.891 Personal history of nicotine dependence; Z86.73 Personal history of transient ischemic attack (TIA), and cerebral infarction without residual deficits; Z90.5 Acquired absence of kidney

== ENCOUNTER 2017-07-06 11:39 | Inpatient (IN) | payer MEDICARE, OTHER ==
[~2017-07-06] VITALS: Ht 152.4 cm; Wt 54.2 kg
[2017-07-06] MEDS: CETIRIZINE (ZyrTEC) 10 MG TAB PO SCH (09:00)
[2017-07-06] MEDS: PANTOPRAZOLE 40MG TAB (PROTONIX) PO SCH (09:00)
[2017-07-06] MEDS: CLOPIDOGREL 75 MG TAB PO SCH (09:00)
[~2017-07-06 11:39] MED LIST changes: +SYNT25TA PO
[2017-07-06] MEDS ORDERED: CLOP75TA2 PO (11:49)
[2017-07-06] MEDS ORDERED: methylPREDNISolone INJ 125 MG/2 ML VIAL (J2930) IV ONE (12:30)
[2017-07-06] MEDS ORDERED: IPRATROPIUM 0.5MG/ALBUTEROL 2.5MG INH SOL UD 3ML (DUONEB)(J7620) NEB PRN (12:30)
[2017-07-06 12:49] LABS: BASO # 0.1 K/mm3 (0.0-0.2); BASO % 1.4 % (0.0-1.0); EOS # 0.6 K/mm3 (0.0-0.50); EOS % 12.5 % (0.0-3.0); LARGE UNSTAINED CELL # 0.2 K/mm3 (0.0-0.4); LYMPH # 0.9 K/mm3 (1.5-4.5); LYMPH % 18.6 % (24.0-44.0); MEAN CORPUSCULAR HEMOGLOBIN 28.3 pg (27.0-33.0); MEAN CORPUSCULAR HGB CONC 31.7 g/dl (32.0-36.5); MEAN CORPUSCULAR VOLUME 89.2 fl (80.0-96.0); MONO # 0.3 K/mm3 (0.0-0.8); MONO % 6.3 % (0.0-5.0); NEUTROPHILS # 2.7 K/mm3 (1.8-7.7); NEUTROPHILS % 57.2 % (36.0-66.0); PLATELET COUNT, AUTOMATED 418 k/mm3 (150-450); RED CELL DISTRIBUTION WIDTH 16.5 % (11.5-14.5); WHITE BLOOD COUNT 4.7 K/mm3 (4.0-10.0)
[2017-07-06 13:12] LABS: ANION GAP 8 MEQ/L (8-16); BLOOD UREA NITROGEN 22 MG/DL (7-18); CARBON DIOXIDE LEVEL 30 MEQ/L (21-32); CHLORIDE LEVEL 104 MEQ/L (98-107); CREATININE FOR GFR 0.64 MG/DL (0.55-1.02); GLOMERULAR FILTRATION RATE > 60.0 (>32); GLUCOSE, FASTING 104 MG/DL (83-110); POTASSIUM SERUM 4.4 MEQ/L (3.5-5.1); SODIUM LEVEL 142 MEQ/L (136-145)
[2017-07-06] MEDS ORDERED: AUGM875T28 PO (14:01)
[2017-07-06] MEDS ORDERED: PRED10TA2 PO (14:05)
[2017-07-06] MEDS ORDERED: ONDANSETRON 4MG/2ML VIAL (J2405) IV PRN (15:45)
[2017-07-06] MEDS ORDERED: MECLIZINE 12.5 MG TAB PO PRN (15:45)
[2017-07-06] MEDS ORDERED: IPRATROPIUM 0.02% SOLN 0.5MG/2.5 ML NEB INH PRN (15:45)
[2017-07-06] MEDS ORDERED: ACETAMINOPHEN TAB 650MG DOSE (2X325MG) PO PRN (15:45)
[2017-07-06] MEDS: ALPRAZolam 0.25 MG TAB PO PRN (19:15)
[2017-07-06 19:17] VITALS: O2SAT 100
[2017-07-06] MEDS: IPRATROPIUM 0.5MG/ALBUTEROL 2.5MG INH SOL UD 3ML (DUONEB)(J7620) NEB SCH ×2 (19:17→23:03)
--- NOTE | 2017-07-06 20:44 | HPEPDOC ---
General Date of Admission Jul 06, 2017 at 15:45 Primary Care Physician: CARLOS MARIE M.D. Other Providers Pulmonary Dr Justice Attending Physician: SUMI WYATT MD Chief Complaint The patient is a 82-year-old female admitted with a reason for visit of Copd Exacerbation. Source: Patient Exam Limitations: No limitations Severity: Moderate Associated Symptoms: Cough History of Present Illness 82-year-old female h/o COPD on 2-4 L o2 at home recurrent admission for copd, anciety, CAD with stent, Pul HTN, TIA, h/o malaria presented with 20b since last night, dry cough, and generalized weakness, and wheezing. denied fever/ chill/cp/abd pain/n/v/d/c. no sick contact. Hospitalist called for admission. Patient refused abg. Poor historian Home Medications Scheduled Amlodipine Besylate (Amlodipine Besylate) 10 Mg Tab, 10 MG PO DAILY, (Reported) Amoxicillin/Clavulanate Potas (Augmentin 875-125 mg) 1 Tab Tab, 875 MG PO BID, ( Reported) Aspirin (Aspirin 81) 81 Mg Tab, 81 MG PO DAILY, (Reported) Atorvastatin Calcium (Atorvastatin Calcium) 40 Mg Tab, 40 MG PO QHS, (Reported) Calcium/Vitamin D (Calcium 600 + D 600-400 mg-Unit) 1 Tab Tab, 1 TAB PO DAILY, ( Reported) Cetirizine HCl (Cetirizine HCl) 10 Mg Tab, 10 MG PO DAILY, (Reported) Clopidogrel Bisulfate (Clopidogrel) 75 Mg Tab, 75 MG PO DAILY, (Reported) Levothyroxine Sodium (Synthroid) 25 Mcg Tab, 25 MCG PO DAILY, (Reported) Prednisone (Prednisone) 10 Mg Tab, 10 MG PO TAPER, (Reported) Take 4 tabs daily x 3 days, then 3 tabs daily x 3 days, then 2 tabs daily x 3 days, then 1 tab daily x 3 days and stop Scheduled PRN Acetaminophen (Tylenol) 325 Mg Tab, 650 MG PO Q4H PRN for PAIN, (Reported) Albuterol Sulfate (Ventolin Hfa) 200 Puff/8 Gm Aers, 2 PUFF INH Q4H PRN for SHORTNESS OF BREATH, (Reported) Albuterol Sulfate (Albuterol Sulfate) 2.5 Mg/3 Ml Nebu, 2.5 MG INH Q4H PRN for SHORTNESS OF BREATH, (Reported) Alprazolam (Alprazolam) 0.25 Mg Tab, 0.25 MG PO TID PRN for ANXIETY, (Reported) Ipratropium Bas[place] (Atrovent Hfa) 17 Mcg/Act Aer, 34 MCG INH Q4H PRN for SHORTNESS OF BREATH, (Reported) Meclizine HCl (Meclizine HCl) 12.5 Mg Tab, 12.5 MG PO Q6H PRN for DIZZINESS, ( Reported) Nitroglycerin (Nitrostat) 0.4 Mg Subl, 0.4 MG SL NITRO PRN for CHEST PAIN, ( Reported) Tizanidine Hydrochloride (Tizanidine HCl) 2 Mg Cap, 2 MG PO TID PRN for MUSCLE SPASMS, (Reported) Allergies Coded Allergies: Levofloxacin (Unverified Allergy, Intermediate, 06/12/17) Procaine (Verified Allergy, Mild, RASH, 06/12/17) Past Medical History Medical History COPD, chronic hyposia, anxiety, CAD with stent, pul htn, TIA, malaria, dysentery Surgical History Right kidney stent, aortic surgery, cardiac stent, appendectomy Family History noncontributory Social History * Smoker: former Smoker (Quit 30 years ago) Alcohol: Denies Drugs: denies Recent Travel/Sick Contacts: Denies: Recent travel, Recent sick contacts live at home with family Review of Symptoms Constitutional: Reports: Weakness, Denies: Chills, Fever, Malaise, Fatigue Eyes: Denies: Pain, Vision change ENT: Denies: Head Aches, Ear Pain, Dysphagia Skin: Denies: Rash, Lesions, Jaundice Pulmonary: Reports: Dyspnea, Cough Cardiovascular: Denies: Chest Pain, Palpitations, Orthopnea Gastrointestinal: Denies: Nausea, Vomiting, Abdominal Pain, Diarrhea, Constipation Genitourinary: Denies: Dysuria, Frequency, Incontinence Hematologic: Denies: Bruising, Bleeding Excessively Endocrine: Denies: Polydipsia, Polyphagia, Polyuria Musculoskeletal: Denies: Neck Pain, Back Pain Neurological: Denies: Weakness, Numbness Psych: Denies: Mood Normal Physical Examination General Exam: Positive: Alert, Cooperative, No Acute Distress Eye Exam: Positive: PERRLA, Conjunctiva & lids normal ENT Exam: Positive: Atraumatic, Mucous membr. moist/pink Neck Exam: Positive: Supple, Negative: JVD Chest Exam: Positive: Rales, Wheezing, Diminished Heart Exam: Positive: Rate Normal, Normal S1, Normal S2, Negative: Murmurs Abdomen Exam: Positive: Normal bowel sounds, Soft, Negative: Tenderness Extremity Exam: Positive: Edema (trace) Skin Exam: Positive: Nl turgor and temperature Neuro Exam: Positive: Normal Speech Vital Signs Vital Signs Date Time Temp Pulse Resp B/P (MAP) Pulse Ox O2 Delivery O2 Flow Rate FiO2 07/06/17 19:18 106 07/06/17 19:17 100 Nasal Cannula 2.0 07/06/17 15:00 167/79 (108) 07/06/17 11:51 99.1 26 Laboratory Data Labs 24H Laboratory Tests 2 07/06/17 12:25: White Blood Count 4.7, Red Blood Count 3.59L, Hemoglobin 10.2L, Hematocrit 32.0L , Mean Corpuscular Volume 89.2, Mean Corpuscular Hemoglobin 28.3, Mean Corpuscular Hemoglobin Concent 31.7L, Red Cell Distribution Width 16.5H, Platelet Count 418, Neutrophils (%) (Auto) 57.2, Lymphocytes (%) (Auto) 18.6L, Monocytes (%) (Auto) 6.3H, Eosinophils (%) (Auto) 12.5H, Basophils (%) (Auto) 1.4H, Neutrophils # (Auto) 2.7, Lymphocytes # (Auto) 0.9L, Monocytes # (Auto) 0.3, Eosinophils # (Auto) 0.6H, Basophils # (Auto) 0.1, Large Unclassified Cells % 4.0, Large Unclassified Cells # 0.2, Anion Gap 8, Glomerular Filtration Rate > 60.0, Lactic Acid Level 0.8, Blood Urea Nitrogen 22H, Creatinine 0.64, Sodium Level 142, Potassium Level 4.4, Chloride Level 104, Carbon Dioxide Level 30, Calcium Level 9.0, Total Creatine Kinase 162, Creatine Kinase MB 5.5H, Creatine Kinase MB Relative Index 3.39, Troponin I < 0.02, C-Reactive Protein, Quantitative < 0.30, B-Type Natriuretic Peptide 119H, Thyroid Stimulating Hormone (TSH) 6.990H, Free Thyroxine 1.00 CBC/BMP Laboratory Tests 07/06/17 12:25 Red Blood Count 3.59 L, Mean Corpuscular Volume 89.2, Mean Corpuscular Hemoglobin 28.3, Mean Corpuscular Hemoglobin Concent 31.7 L, Red Cell Distribution Width 16.5 H, Neutrophils (%) (Auto) 57.2, Lymphocytes (%) (Auto) 18.6 L, Monocytes (%) (Auto) 6.3 H, Eosinophils (%) (Auto) 12.5 H, Basophils (% ) (Auto) 1.4 H, Neutrophils # (Auto) 2.7, Lymphocytes # (Auto) 0.9 L, Monocytes # (Auto) 0.3, Eosinophils # (Auto) 0.6 H, Basophils # (Auto) 0.1, Calcium Level 9.0, Total Creatine Kinase 162 Microbiology Microbiology 07/06/17 Blood Culture, Received Pending 07/06/17 Blood Culture, Received Pending Assessment/Plan 82-year-old female h/o COPD on 2-4 L o2 at home recurrent admission for copd, anciety, CAD with stent, Pul HTN, TIA, h/o malaria a/w copd exacerbation Problems (1) COPD with exacerbation Status: Acute Problem Text: refused abg, cxr O2 supp, respiratory panel crp neg Solumedrol, neb, c/w home meds (2) Hypothyroidism Status: Chronic Problem Text: thyroid panel, c/w med (3) TIA (transient ischemic attack) Status: Chronic Problem Text: c/w asa, plx, statin (4) Pulmonary hypertension Status: Chronic Problem Text: supportive care (5) CAD (coronary artery disease) Status: Chronic (6) HTN (hypertension) Status: Chronic Problem Text: c/w med (7) Anxiety Status: Chronic Problem Text: con/t meds Plan / VTE VTE Prophylaxis Ordered?: Yes (heparin SQ) Plan Plan taper steroid, high risk of readmission, none complaint, PFS consulted RADHA ALVARES MD Jul 06, 2017 20:44
[2017-07-06] MEDS: SENOKOT S TAB PO SCH (21:00)
[2017-07-06] MEDS: HEPARIN SOD (PORCINE) 5000 UNITS/ML VIAL SC SCH ×2 (21:00→22:15)
[2017-07-06 22:00] VITALS: BP 140/65
[2017-07-06] MEDS: methylPREDNISolone INJ 125 MG/2 ML VIAL (J2930) IV SCH (22:15)
[2017-07-06] MEDS: ATORVASTATIN 20 MG TAB PO SCH (22:16)
[2017-07-06 23:59] VITALS: BP 160/70
[2017-07-07] MEDS: IPRATROPIUM 0.5MG/ALBUTEROL 2.5MG INH SOL UD 3ML (DUONEB)(J7620) NEB PRN ×4 (02:43→17:14)
[2017-07-07 04:30] VITALS: BP 130/70
[2017-07-07 06:00] LABS: MEAN CORPUSCULAR HEMOGLOBIN 27.9 pg (27.0-33.0); MEAN CORPUSCULAR HGB CONC 32.1 g/dl (32.0-36.5); MEAN CORPUSCULAR VOLUME 86.8 fl (80.0-96.0); RED CELL DISTRIBUTION WIDTH 16.5 % (11.5-14.5); WHITE BLOOD COUNT 2.5 K/mm3 (4.0-10.0)
[2017-07-07] MEDS: LEVOTHYROXINE 25MCG TABLET (0.025MG) PO SCH (06:07)
[2017-07-07] MEDS: methylPREDNISolone INJ 125 MG/2 ML VIAL (J2930) IV SCH ×3 (06:07→20:33)
[2017-07-07 06:13] LABS: ANION GAP 9 MEQ/L (8-16); BLOOD UREA NITROGEN 23 MG/DL (7-18); CALCIUM LEVEL 9.1 MG/DL (8.8-10.2); CARBON DIOXIDE LEVEL 26 MEQ/L (21-32); CHLORIDE LEVEL 105 MEQ/L (98-107); GLOMERULAR FILTRATION RATE > 60.0 (>32); GLUCOSE, FASTING 145 MG/DL (83-110); MAGNESIUM LEVEL 2.1 MG/DL (1.8-2.4); POTASSIUM SERUM 3.9 MEQ/L (3.5-5.1); SODIUM LEVEL 140 MEQ/L (136-145)
[2017-07-07] MEDS: IPRATROPIUM 0.5MG/ALBUTEROL 2.5MG INH SOL UD 3ML (DUONEB)(J7620) NEB SCH ×3 (07:16→21:51)
[2017-07-07 08:00] VITALS: BP 137/56
[2017-07-07] MEDS: TIOTROPIUM INHALER/CAPSULE (SPIRIVA) INH SCH (08:00)
--- NOTE | 2017-07-07 08:11 | ECGEPIP ---
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
[2017-07-07] MEDS: SENOKOT S TAB PO SCH ×2 (09:00→20:34)
[2017-07-07] MEDS: BUDESONIDE 180MCG INHALER (PULMICORT FLEXHALER) INH SCH ×2 (09:00→21:00)
[2017-07-07] MEDS: HEPARIN SOD (PORCINE) 5000 UNITS/ML VIAL SC SCH ×2 (09:00→20:33)
[2017-07-07] MEDS: CLOPIDOGREL 75 MG TAB PO SCH (09:00)
--- NOTE | 2017-07-07 09:16 | REP ---
PORTABLE CHEST X-RAY: Sitting AP view. HISTORY: Dyspnea and cough. COMPARISON STUDY: June 12, 2017. FINDINGS: The patient is rotated somewhat to the left. There is mild bibasilar linear fibrosis. Heart is not enlarged. Lung carbajal are otherwise clear. EKG electrodes are seen. Prior median sternotomy wires are noted. IMPRESSION: No acute infiltrate. Signed by Chau Paulson MD 07/07/2017 10:07 A
[2017-07-07] MEDS ORDERED: FUROSEMIDE 20 MG/2 ML VIAL (J1940) IV ONE (09:30)
[2017-07-07] MEDS: CETIRIZINE (ZyrTEC) 10 MG TAB PO SCH (09:52)
[2017-07-07] MEDS: PANTOPRAZOLE 40MG TAB (PROTONIX) PO SCH (09:52)
[2017-07-07] MEDS: ASPIRIN 81 MG ENTERIC TAB PO SCH (09:52)
[2017-07-07] MEDS: amLODIPine 10 MG TAB PO SCH (09:53)
[2017-07-07 12:00] VITALS: BP 120/56
[2017-07-07 16:00] VITALS: BP 120/56
--- NOTE | 2017-07-07 18:24 | REP ---
Chest x-ray: Two views. History: Left lower lobe atelectasis. Comparison study: July 06, 2017. Findings: Oxygen delivery tubing and EKG monitoring electrodes are seen. A dextroconvex thoracic curvature is seen as before. Prior median sternotomy wires are noted. The lungs are somewhat hyperinflated. There is no evidence of atelectatic change in the lower lobes. Vascular calcification is seen in the coronary artery distribution. Heart is not enlarged. There are some degenerative changes in the thoracic spine. Impression: No evidence of atelectasis. Some hyperinflation. Otherwise no acute disease. Signed by Chau Paulson MD 07/11/2017 08:17 A
[2017-07-07] MEDS: ATORVASTATIN 20 MG TAB PO SCH ×3 (20:30→20:42)
[2017-07-07 22:00] VITALS: BP 132/68
[2017-07-08] MEDS: IPRATROPIUM 0.5MG/ALBUTEROL 2.5MG INH SOL UD 3ML (DUONEB)(J7620) NEB SCH ×4 (02:00→19:41)
[2017-07-08] MEDS: LEVOTHYROXINE 25MCG TABLET (0.025MG) PO SCH (05:59)
[2017-07-08] MEDS: methylPREDNISolone INJ 125 MG/2 ML VIAL (J2930) IV SCH ×3 (05:59→22:13)
[2017-07-08 06:00] VITALS: BP 134/62
[2017-07-08 07:05] LABS: MEAN CORPUSCULAR HEMOGLOBIN 27.8 pg (27.0-33.0); MEAN CORPUSCULAR HGB CONC 32.1 g/dl (32.0-36.5); MEAN CORPUSCULAR VOLUME 86.4 fl (80.0-96.0); RED CELL DISTRIBUTION WIDTH 16.7 % (11.5-14.5); WHITE BLOOD COUNT 6.4 K/mm3 (4.0-10.0)
[2017-07-08] MEDS: TIOTROPIUM INHALER/CAPSULE (SPIRIVA) INH SCH (07:12)
[2017-07-08] MEDS: BUDESONIDE 180MCG INHALER (PULMICORT FLEXHALER) INH SCH ×2 (07:12→19:41)
[2017-07-08 07:24] LABS: ANION GAP 7 MEQ/L (8-16); BLOOD UREA NITROGEN 35 MG/DL (7-18); CALCIUM LEVEL 8.9 MG/DL (8.8-10.2); CARBON DIOXIDE LEVEL 29 MEQ/L (21-32); CHLORIDE LEVEL 106 MEQ/L (98-107); CREATININE FOR GFR 0.69 MG/DL (0.55-1.02); GLOMERULAR FILTRATION RATE > 60.0 (>32); GLUCOSE, FASTING 142 MG/DL (83-110); MAGNESIUM LEVEL 2.3 MG/DL (1.8-2.4); POTASSIUM SERUM 4.2 MEQ/L (3.5-5.1); SODIUM LEVEL 142 MEQ/L (136-145)
[2017-07-08] MEDS: HEPARIN SOD (PORCINE) 5000 UNITS/ML VIAL SC SCH ×2 (08:03→21:00)
[2017-07-08] MEDS: SENOKOT S TAB PO SCH ×2 (08:03→21:00)
[2017-07-08] MEDS: CLOPIDOGREL 75 MG TAB PO SCH (08:27)
[2017-07-08] MEDS: ASPIRIN 81 MG ENTERIC TAB PO SCH (08:27)
[2017-07-08] MEDS: PANTOPRAZOLE 40MG TAB (PROTONIX) PO SCH (08:27)
[2017-07-08] MEDS: CETIRIZINE (ZyrTEC) 10 MG TAB PO SCH (08:27)
[2017-07-08] MEDS: amLODIPine 10 MG TAB PO SCH (08:27)
[2017-07-08] MEDS: IPRATROPIUM 0.5MG/ALBUTEROL 2.5MG INH SOL UD 3ML (DUONEB)(J7620) NEB PRN ×3 (09:41→22:18)
[2017-07-08] MEDS: guaiFENesin ER 600 MG TAB PO SCH ×2 (11:41→21:00)
[2017-07-08 14:00] VITALS: BP 126/59
--- NOTE | 2017-07-08 14:30 | IPNPDOC ---
Text Note Date of Service The patient was seen on 07/08/17. NOTE CC: The patient is a 82-year-old female admitted with a reason for visit of COPD Exacerbation. Subjective: Patient is sitting up in bed. She's leaning over, complains of shortness of breath. Last nebulizer treatment was an hour previous. She is usually on 2L NC at home, is only on 1.5 L at the moment. Increasing her O2 to 2 L seems to improve her SOB. She states she feels the same no different. Nothing is different today. Cough but not productive. Objective: Vitals: (see below) General: No acute distress, sitting up in bed. mild distress. HEENT: Moist mucous membranes. Neck: No JVD or lymphadenopathy Cardiac: Normal s1 and s2. No murmurs. Pulm: Wheezing bilaterally. Abd: Normal Bowel sounds to auscultation. No tenderness to palpation. Ext: No edema or cyanosis Pysch: Normal affect. Labs (see below) Images: Assessment/Plan 1.COPD exacerbation Respiratory panel negative. Blood cultures x2, pending. Continue patient on oxygen. Continue nebulizers as needed. Mucinex to help with cough. Home meds continue, pulmicort, spiriva. Solumedrol 60 mg IV q8h, 07/06/17. No antibiotics at this time. Afebrile. WBC normal, 6.4 today. 2.Hypothyroidism Continue home med. TSH 6.9 on admission. 3.TIA, history of Monitor patient. Continue aspirin, plavix, and statin. 4.CAD Continue aspirin, plavix, and statin. 5.HTN Continue home amlodipine. Monitor vitals. 6.Anxiety Continue Xanax. DVT prophy: Heparin. Dispo: Continue to manage patient. Dr. Justice met with patient and discussed treatment. Patient agreed. VS,Fishbone, I+O VS, Fishbone, I+O Laboratory Tests 07/08/17 06:50 Red Blood Count 3.20 L, Mean Corpuscular Volume 86.4, Mean Corpuscular Hemoglobin 27.8, Mean Corpuscular Hemoglobin Concent 32.1, Red Cell Distribution Width 16.7 H, Calcium Level 8.9 Vital Signs Date Time Temp Pulse Resp B/P (MAP) Pulse Ox O2 Delivery O2 Flow Rate FiO2 07/08/17 08:27 84 134/62 9/2/17 06:00 97.3 18 98 Room Air 07/07/17 20:30 2.0 I&O- Last 24 Hours up to 6 AM 07/08/17 06:00 Intake Total 1960 ml Output Total 500 ml Balance 1460 ml GME ATTESTATION GME ATTESTATION I have both independently examined this patient as well as reviewed the dictated note. I have discussed in detail with the resident the findings and plan of treatment as documented in the residents note. I will continue to follow the patient and offer further guidance to the patients care as necessary during this hospital stay. ENRIQUETA VELOZ DO Jul 08, 2017 14:24 SUMI WYATT MD Jul 10, 2017 14:21
[2017-07-08 22:00] VITALS: BP 128/58
[2017-07-08] MEDS: ATORVASTATIN 20 MG TAB PO SCH (22:13)
[2017-07-09] MEDS: IPRATROPIUM 0.5MG/ALBUTEROL 2.5MG INH SOL UD 3ML (DUONEB)(J7620) NEB SCH ×5 (02:00→23:10)
[2017-07-09 06:00] VITALS: BP 151/85
[2017-07-09] MEDS: LEVOTHYROXINE 25MCG TABLET (0.025MG) PO SCH (06:00)
[2017-07-09] MEDS: methylPREDNISolone INJ 125 MG/2 ML VIAL (J2930) IV SCH ×3 (06:07→21:23)
[2017-07-09 07:09] LABS: MEAN CORPUSCULAR HEMOGLOBIN 27.5 pg (27.0-33.0); MEAN CORPUSCULAR HGB CONC 31.5 g/dl (32.0-36.5); MEAN CORPUSCULAR VOLUME 87.2 fl (80.0-96.0); RED CELL DISTRIBUTION WIDTH 16.9 % (11.5-14.5); WHITE BLOOD COUNT 6.7 K/mm3 (4.0-10.0)
[2017-07-09 07:21] LABS: ANION GAP 9 MEQ/L (8-16); BLOOD UREA NITROGEN 32 MG/DL (7-18); CALCIUM LEVEL 8.6 MG/DL (8.8-10.2); CARBON DIOXIDE LEVEL 27 MEQ/L (21-32); CHLORIDE LEVEL 109 MEQ/L (98-107); CREATININE FOR GFR 0.69 MG/DL (0.55-1.02); GLOMERULAR FILTRATION RATE > 60.0 (>32); GLUCOSE, FASTING 152 MG/DL (83-110); MAGNESIUM LEVEL 2.2 MG/DL (1.8-2.4); POTASSIUM SERUM 3.9 MEQ/L (3.5-5.1); SODIUM LEVEL 145 MEQ/L (136-145)
[2017-07-09] MEDS: TIOTROPIUM INHALER/CAPSULE (SPIRIVA) INH SCH (08:15)
[2017-07-09] MEDS: BUDESONIDE 180MCG INHALER (PULMICORT FLEXHALER) INH SCH ×2 (08:16→19:56)
[2017-07-09] MEDS: HEPARIN SOD (PORCINE) 5000 UNITS/ML VIAL SC SCH ×2 (08:17→21:00)
[2017-07-09] MEDS: SENOKOT S TAB PO SCH ×2 (08:18→21:00)
[2017-07-09] MEDS: PANTOPRAZOLE 40MG TAB (PROTONIX) PO SCH (08:22)
[2017-07-09] MEDS: guaiFENesin ER 600 MG TAB PO SCH ×2 (08:22→21:00)
[2017-07-09] MEDS: amLODIPine 10 MG TAB PO SCH (08:22)
[2017-07-09] MEDS: CLOPIDOGREL 75 MG TAB PO SCH (08:22)
[2017-07-09] MEDS: CETIRIZINE (ZyrTEC) 10 MG TAB PO SCH (08:22)
[2017-07-09] MEDS: ASPIRIN 81 MG ENTERIC TAB PO SCH (08:22)
--- NOTE | 2017-07-09 12:38 | IPN ---
DATE: 07/09/2017 Ms. Bowers is feeling about the same as she did yesterday. She has no complaints of pain, chest pain, or shortness of breath. She is not producing sputum. Does say her cough is a little more noticeable and dry. She is not producing any sputum. Temperature is 99.1, pulse 91, respiratory rate 20, blood pressure 151/85, 94% on 2 liters. Intake and output notable for a positive fluid balance of 840. Weight is 52.9 kg with a body mass index (BMI) of 22.8. She is awake, appropriately interactive. Mucous membranes are moist. Neck is thin. Breathing is notable for an I-to-E ratio of 1:4, somewhat diminished throughout. No accessory muscle use. Heart is regular rate and rhythm. Abdomen is soft, doughy. No significant lower extremity edema. White count 6.7, hemoglobin 8.6, platelets of 394, BUN 32, creatinine is 0.69. ASSESSMENT: This is an 82-year-old with chronic obstructive pulmonary disease (COPD) exacerbation. PLAN: 1. Respiratory. Patient is being seen by Dr. Justice in consultation. Continue aggressive pulmonary toilet, nebulizers. I have added humidity to her oxygen. The patient is likely better than on presentation, but only improving slowly. 2. Patient has hypothyroidism. 3. Patient has a history of transient ischemic attack (TIA). 4. Patient has pulmonary hypertension. 5. Patient has coronary artery disease. 6. Patient has hypertension. Blood pressure is reasonably well controlled for the current setting. 7. Deep vein thrombosis (DVT) prophylaxis is heparin.
[2017-07-09] MEDS ORDERED: BENZONATATE 100 MG CAP PO PRN (13:30)
[2017-07-09] MEDS: ATORVASTATIN 20 MG TAB PO SCH (21:23)
[2017-07-09 22:00] VITALS: BP 145/70
[2017-07-10] MEDS: LEVOTHYROXINE 25MCG TABLET (0.025MG) PO SCH ×2 (05:44→06:00)
[2017-07-10] MEDS: methylPREDNISolone INJ 125 MG/2 ML VIAL (J2930) IV SCH (05:44)
[2017-07-10 06:00] VITALS: BP 140/80
[2017-07-10] MEDS ORDERED: FUROSEMIDE 20 MG/2 ML VIAL (J1940) IV ONE (07:00)
[2017-07-10 07:08] LABS: ANION GAP 9 MEQ/L (8-16); BLOOD UREA NITROGEN 33 MG/DL (7-18); CARBON DIOXIDE LEVEL 28 MEQ/L (21-32); CHLORIDE LEVEL 108 MEQ/L (98-107); GLOMERULAR FILTRATION RATE > 60.0 (>32); GLUCOSE, FASTING 165 MG/DL (83-110); POTASSIUM SERUM 3.9 MEQ/L (3.5-5.1); SODIUM LEVEL 145 MEQ/L (136-145)
[2017-07-10 07:12] LABS: MEAN CORPUSCULAR HEMOGLOBIN 27.9 pg (27.0-33.0); MEAN CORPUSCULAR HGB CONC 32.1 g/dl (32.0-36.5); MEAN CORPUSCULAR VOLUME 86.7 fl (80.0-96.0); RED CELL DISTRIBUTION WIDTH 16.6 % (11.5-14.5)
[2017-07-10] MEDS: BUDESONIDE 180MCG INHALER (PULMICORT FLEXHALER) INH SCH ×2 (07:25→18:28)
[2017-07-10] MEDS: TIOTROPIUM INHALER/CAPSULE (SPIRIVA) INH SCH (07:25)
[2017-07-10] MEDS: IPRATROPIUM 0.5MG/ALBUTEROL 2.5MG INH SOL UD 3ML (DUONEB)(J7620) NEB SCH ×3 (07:25→18:28)
[2017-07-10] MEDS: SENOKOT S TAB PO SCH ×2 (09:00→20:57)
[2017-07-10] MEDS: HEPARIN SOD (PORCINE) 5000 UNITS/ML VIAL SC SCH ×2 (09:00→20:57)
[2017-07-10] MEDS: guaiFENesin ER 600 MG TAB PO SCH ×2 (09:10→20:57)
[2017-07-10] MEDS: CLOPIDOGREL 75 MG TAB PO SCH (09:11)
[2017-07-10] MEDS: amLODIPine 10 MG TAB PO SCH (09:11)
[2017-07-10] MEDS: ASPIRIN 81 MG ENTERIC TAB PO SCH (09:11)
[2017-07-10] MEDS: ALPRAZolam 0.25 MG TAB PO PRN ×2 (09:11→20:56)
[2017-07-10] MEDS: PANTOPRAZOLE 40MG TAB (PROTONIX) PO SCH (09:11)
[2017-07-10] MEDS: CETIRIZINE (ZyrTEC) 10 MG TAB PO SCH (09:12)
--- NOTE | 2017-07-10 13:55 | IPN ---
DATE OF SERVICE: 07/10/2017 Ms. Bowers is frustrated with her current hospital course. She does not understand disease process very well. Is concerned that when she leaves the hospital, she will just find her way back. She has been hospitalized seven times in 2017. Temperature is 98.3, pulse 97, respiratory rate 18, blood pressure 140/80, 97% on 2 liters. Intake and output (I and O) notable for a positive fluid balance of 160. Body mass index 22.7. She is awake, appropriately interactive, thought pleasantly conversant. Not particularly anxious. Mucous membranes moist. Neck supple. Breathing is symmetrical. She is somewhat tachypneic. Not coughing as much as yesterday. She seems to have tolerated Tessalon Perles. I-to-E ratio is 1:4. No wheezes on examination but decreased aeration. Heart is regular rate and rhythm. Abdomen is soft, doughy, nontender. Trace bilateral lower extremity edema. White cell count 7, hemoglobin 9, platelets of 407. BUN 33, creatinine 0.8. Echocardiogram done April of 2017 shows moderate pulmonary hypertension, grade 1 diastolic dysfunction. My assessment is as follows: This is an 82-year-old with chronic obstructive pulmonary disease (COPD) exacerbation. The plan is as follows: 1. The patient is being followed by pulmonary in consultation. Clinically, to me, it looks like she is improved from my first visit with her. She does not feel significantly better than she has. Dr. Justice has started to decrease her steroid dose. Continue with aggressive pulmonary toilet and nebulizers. I did give her Tessalon Perles, which she has tolerated them. 2. The patient has hypothyroidism. 3. The patient has a history of transient ischemic attack (TIA). 4. The patient has pulmonary hypertension, which is likely causing some of her symptomatology. I will give her a small dose of intravenous (IV) Lasix today, as she does have some lower extremity edema. 5. The patient has coronary artery disease. 6. The patient has hypertension. Blood pressure is reasonably well controlled for the current setting. 7. Deep vein thrombosis (DVT) prophylaxis is in the form of subcutaneous heparin, which the patient is regularly refusing.
[2017-07-10 14:00] VITALS: BP 169/72
[2017-07-10] MEDS: predniSONE 10 MG TAB PO SCH (20:56)
[2017-07-10] MEDS: ATORVASTATIN 20 MG TAB PO SCH (20:56)
[2017-07-10] MEDS: IPRATROPIUM 0.5MG/ALBUTEROL 2.5MG INH SOL UD 3ML (DUONEB)(J7620) NEB PRN (21:51)
[2017-07-10 22:00] VITALS: BP 142/71
[2017-07-11] MEDS: IPRATROPIUM 0.5MG/ALBUTEROL 2.5MG INH SOL UD 3ML (DUONEB)(J7620) NEB SCH ×5 (01:19→23:34)
[2017-07-11 06:00] VITALS: BP 129/99
[2017-07-11] MEDS: LEVOTHYROXINE 25MCG TABLET (0.025MG) PO SCH (06:00)
[2017-07-11 06:43] LABS: MEAN CORPUSCULAR HEMOGLOBIN 27.6 pg (27.0-33.0); MEAN CORPUSCULAR VOLUME 86.3 fl (80.0-96.0); PLATELET COUNT, AUTOMATED 402 k/mm3 (150-450); RED CELL DISTRIBUTION WIDTH 16.6 % (11.5-14.5); WHITE BLOOD COUNT 6.5 K/mm3 (4.0-10.0)
[2017-07-11 07:02] LABS: ANION GAP 8 MEQ/L (8-16); BLOOD UREA NITROGEN 33 MG/DL (7-18); CALCIUM LEVEL 8.2 MG/DL (8.8-10.2); CARBON DIOXIDE LEVEL 29 MEQ/L (21-32); CHLORIDE LEVEL 107 MEQ/L (98-107); CREATININE FOR GFR 0.71 MG/DL (0.55-1.02); GLOMERULAR FILTRATION RATE > 60.0 (>32); GLUCOSE, FASTING 135 MG/DL (83-110); MAGNESIUM LEVEL 2.1 MG/DL (1.8-2.4); SODIUM LEVEL 144 MEQ/L (136-145)
[2017-07-11] MEDS: TIOTROPIUM INHALER/CAPSULE (SPIRIVA) INH SCH (07:24)
[2017-07-11] MEDS: BUDESONIDE 180MCG INHALER (PULMICORT FLEXHALER) INH SCH ×2 (07:25→19:24)
[2017-07-11 08:33] LABS: REASON FOR REVIEW COMPREHENSIVE REVIEW
[2017-07-11 09:04] LABS: RETIC HEMOGLOBIN CONTENT CHr 28.1 PG (24-36); RETICULOCYTE ABSOLUTE ADVIA212 87 x10(9)/L (17-77)
[2017-07-11] MEDS: guaiFENesin ER 600 MG TAB PO SCH ×2 (10:25→21:00)
[2017-07-11] MEDS: amLODIPine 10 MG TAB PO SCH (10:25)
[2017-07-11] MEDS: SENOKOT S TAB PO SCH ×2 (10:26→21:00)
[2017-07-11] MEDS: PANTOPRAZOLE 40MG TAB (PROTONIX) PO SCH (10:26)
[2017-07-11] MEDS: ASPIRIN 81 MG ENTERIC TAB PO SCH (10:27)
[2017-07-11] MEDS: HEPARIN SOD (PORCINE) 5000 UNITS/ML VIAL SC SCH ×2 (10:27→21:00)
[2017-07-11] MEDS: CLOPIDOGREL 75 MG TAB PO SCH (10:27)
[2017-07-11] MEDS: CETIRIZINE (ZyrTEC) 10 MG TAB PO SCH (10:27)
[2017-07-11] MEDS: predniSONE 20 MG TAB PO SCH (10:27)
--- NOTE | 2017-07-11 13:23 | IPNPDOC ---
Date Seen The patient was seen on 07/11/17. Progress Note SUBJECTIVE: Patient is an 82-year-old female with chronic obstructive pulmonary disease exacerbation. She reports that she slept well last night, but feels fatigued this morning during my evaluation. She has no other complaints at this time. After reviewing the patient's chart I deemed that the patient was stable enough to be discharged. After discussing this with the patient she informed me that she would be ready to be discharged tomorrow, but that if she is to return to the hospital that "we will know what will hit the fan." Patient has been admitted to the hospital seven times since the beginning of 2017 for similar exacerbations. OBJECTIVE PHYSICAL EXAMINATION: VITAL SIGNS: Please see below. GENERAL: Well nourished, well developed female who appears stated age and in no apparent distress HEENT: Atraumatic, normocephalic, PERRL, EOMI, nasal cannula in place, nasal septum appears midline, nares are patent CARDIOVASCULAR: Regular rate and rhythm, normal S1 and S2, no murmur, rub, click RESPIRATORY: Clear to auscultation bilaterally, adequate inspiratory and expiratory airway excursion, no wheeze, rhonchi, crackles ABDOMINAL: Soft, non-tender, non-distended, bowel sounds appreciated EXTREMITIES: Warm, dry, intact, without peripheral edema, chronic stasis dermatitis, peripheral pulses appreciated bilaterally, equal, symmetrical, +2/4 NEUROLOGICAL: CN II-XII grossly intact PSYCHOLOGICAL: Pleasant, somewhat cantankerous LABORATORY DATA: Please see below. MICROBIOLOGY: Please see below. DVT prophylaxis ordered?: Heparin 5,000 units SC every 12 hours ASSESSMENT AND PLAN: This is an 82-year-old female with chronic obstructive pulmonary disease exacerbation. PROBLEMS: 1. COPD exacerbation: Patient remains on nasal cannula 1L and does not appear to be dyspneic. She remains on prednisone, tessalon perles, mucinex, pulmicort , spiriva, atrovent, and duoneb. VS are stable. 2. Anemia: Appears to be stable. Obtaining peripheral smear and reticulocyte count. 3. Hypertension: Continue with amlodipine. 4. CAD: Continue with ASA, lipitor, and plavix. 5. Hypothyroidism: Continue with synthroid. 6. Anxiety: Continue with xanax. 7. Allergies: Continue with zyrtec. 8. GERD: Continue with PPI. 9. Dizziness: Continue with meclizine. DISPOSITION: Discharge in the next 24 hours. Patient has improved and remains stable. VS, I&O, 24H, Deepakbonbenji Vital Signs/I&O Vital Signs Date Time Temp Pulse Resp B/P (MAP) Pulse Ox O2 Delivery O2 Flow Rate FiO2 07/11/17 11:01 Nasal Cannula 1.0 07/11/17 10:25 84 129/99 07/11/17 06:00 98.4 16 96 I&O- Last 24 Hours up to 6 AM 07/11/17 05:59 Intake Total 840 ml Balance 840 ml Laboratory Data 24H LABS Laboratory Tests 2 07/11/17 06:30: Differential Slide Review Report, Differential Pathologist's Review COMPREHENSIVE REVIEW, Peripheral Blood Smear Path Consult PERIPHERAL SMEAR, Absolute Reticulocyte Count 87H, Percent Reticulocyte Count 2.50H, Reticulocyte Hgb Content (CHr) 28.1, Anion Gap 8, Glomerular Filtration Rate > 60.0, Blood Urea Nitrogen 33H, Creatinine 0.71, Sodium Level 144, Potassium Level 4.0, Chloride Level 107, Carbon Dioxide Level 29, Calcium Level 8.2L, Magnesium Level 2.1 CBC/BMP Laboratory Tests 07/11/17 06:30 Red Blood Count 3.35 L, Mean Corpuscular Volume 86.3, Mean Corpuscular Hemoglobin 27.6, Mean Corpuscular Hemoglobin Concent 32.0, Red Cell Distribution Width 16.6 H, Calcium Level 8.2 L Microbiology Microbiology 07/06/17 Blood Culture - Final, Complete 07/06/17 Blood Culture - Final, Complete 07/06/17 Respiratory Virus Panel (PCR) (SHAHEED) - Final, Complete BEBA GIORDANO Jul 11, 2017 13:23
[2017-07-11 14:00] VITALS: BP 165/69
[2017-07-11] MEDS: IPRATROPIUM 0.5MG/ALBUTEROL 2.5MG INH SOL UD 3ML (DUONEB)(J7620) NEB PRN (15:56)
[2017-07-11] MEDS: predniSONE 10 MG TAB PO SCH ×2 (21:00→22:17)
[2017-07-11 22:00] VITALS: BP 128/62
[2017-07-11] MEDS: ALPRAZolam 0.25 MG TAB PO PRN (22:15)
[2017-07-11] MEDS: ATORVASTATIN 20 MG TAB PO SCH (22:17)
[2017-07-12 06:00] VITALS: BP 146/69
[2017-07-12] MEDS: LEVOTHYROXINE 25MCG TABLET (0.025MG) PO SCH (06:00)
[2017-07-12 07:17] LABS: MEAN CORPUSCULAR HEMOGLOBIN 28.2 pg (27.0-33.0); MEAN CORPUSCULAR HGB CONC 32.5 g/dl (32.0-36.5); MEAN CORPUSCULAR VOLUME 86.6 fl (80.0-96.0); RED CELL DISTRIBUTION WIDTH 16.4 % (11.5-14.5); WHITE BLOOD COUNT 7.3 K/mm3 (4.0-10.0)
[2017-07-12 07:40] LABS: ANION GAP 7 MEQ/L (8-16); BLOOD UREA NITROGEN 32 MG/DL (7-18); CARBON DIOXIDE LEVEL 31 MEQ/L (21-32); CHLORIDE LEVEL 106 MEQ/L (98-107); CREATININE FOR GFR 0.61 MG/DL (0.55-1.02); GLOMERULAR FILTRATION RATE > 60.0 (>32); GLUCOSE, FASTING 73 MG/DL (83-110); MAGNESIUM LEVEL 2.2 MG/DL (1.8-2.4); POTASSIUM SERUM 3.9 MEQ/L (3.5-5.1); SODIUM LEVEL 144 MEQ/L (136-145)
[2017-07-12] MEDS ORDERED: PRED10TA2 PO (07:52)
[2017-07-12] MEDS: IPRATROPIUM 0.5MG/ALBUTEROL 2.5MG INH SOL UD 3ML (DUONEB)(J7620) NEB SCH ×3 (08:29→18:07)
[2017-07-12] MEDS: BUDESONIDE 180MCG INHALER (PULMICORT FLEXHALER) INH SCH ×2 (08:29→19:19)
[2017-07-12] MEDS: TIOTROPIUM INHALER/CAPSULE (SPIRIVA) INH SCH (08:29)
[2017-07-12] MEDS: PANTOPRAZOLE 40MG TAB (PROTONIX) PO SCH ×2 (08:40→08:45)
[2017-07-12] MEDS: ASPIRIN 81 MG ENTERIC TAB PO SCH (08:40)
[2017-07-12] MEDS: guaiFENesin ER 600 MG TAB PO SCH ×2 (08:40→20:04)
[2017-07-12] MEDS: SENOKOT S TAB PO SCH ×2 (08:40→20:05)
[2017-07-12] MEDS: CLOPIDOGREL 75 MG TAB PO SCH (08:40)
[2017-07-12] MEDS: predniSONE 20 MG TAB PO SCH (08:40)
[2017-07-12] MEDS: CETIRIZINE (ZyrTEC) 10 MG TAB PO SCH (08:41)
[2017-07-12] MEDS: amLODIPine 10 MG TAB PO SCH (08:41)
[2017-07-12] MEDS: HEPARIN SOD (PORCINE) 5000 UNITS/ML VIAL SC SCH ×2 (08:41→20:05)
--- NOTE | 2017-07-12 10:13 | DS.PDOC ---
Discharge Summary General Date of Admission Jul 06, 2017 at 15:45 Date of Discharge 07/12/2017 Primary Care Physician: FRANK Attending Physician: JORI Discharge Summary PROCEDURES PERFORMED DURING STAY: None. ADMITTING DIAGNOSES: 1. COPD exacerbation. 2. Hypothyroidism. 3. Pulmonary hypertension. 4. TIA. 5. Anxiety. 6. Hypertension. 7. CAD. DISCHARGE DIAGNOSES: 1. COPD exacerbation. 2. Hypothyroidism. 3. Pulmonary hypertension. 4. TIA. 5. Anxiety. 6. Hypertension. 7. CAD. COMPLICATIONS/CHIEF COMPLAINT: Copd Exacerbation. HISTORY OF PRESENT ILLNESS: Ms. Bowers is an 82-year-old female with a history of COPD on 2-4L O2 at home, recurrent admission for COPD, anxiety, CAD with stent, pulmonary HTN, TIA, history of malaria presented with SOB since last night, dry cough, and generalized weakness, and wheezing. Denied fever, chills, chest pain , abdominal pain, nausea, vomiting, diarrhea, constipation, sick contacts. Hospitalist called for admission. Patient refused ABG. Poor historian. 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 Pulmonology made recommendations of aggressive pulmonary toilet and adjusted patient's steroid. Mucinex and Tessalon Perles were also administered as needed. TSH was elevated, but free T4 was within optimal range. Continue patient's ASA, plavix, and statin. Anti-hypertensive and anti-anxiety medications were continued. A small dose of lasix was given for peripheral edema. Patient improved significantly and was stable at time of discharge. DISCHARGE MEDICATIONS: Please see below. ALLERGIES: Please see below. PHYSICAL EXAMINATION ON DISCHARGE: VITAL SIGNS: Please see below. GENERAL: Elderly female resting in the hospital bed during my evaluation, appears stated age, no acute distress, nasal cannula in place HEENT: Atraumatic, normocephalic, PERRL, EOMI, nasal cannula in place, nasal septum appears midline, nares are patent CARDIOVASCULAR: Regular rate and rhythm, normal S1 and S2, no murmur, rub, click RESPIRATORY: Clear to auscultation bilaterally, adequate inspiratory and expiratory airway excursion, no wheeze, rhonchi, crackles ABDOMINAL: Soft, non-tender, non-distended, bowel sounds appreciated EXTREMITIES: Warm, dry, intact, without peripheral edema, chronic stasis dermatitis, peripheral pulses appreciated bilaterally, equal, symmetrical, +2/4 SKIN: Warm, dry, intact, chronic stasis dermatitis noted on bilateral lower extremities NEUROLOGICAL: CN II-XII grossly intact PSYCHOLOGICAL: Pleasant LABORATORY DATA: Please see below. IMAGING: Chest x-ray - 07/06/2017 IMPRESSION: No acute infiltrate Chest x-ray - 07/07/2017 IMPRESSION: No evidence of atelectasis. Some hyperinflation. Otherwise no acute disease. PROGNOSIS: Stable ACTIVITY: As tolerated. DIET: Low cholesterol, low fat. DISCHARGE PLAN: See instructions and follow-up. DISPOSITION: Home. DISCHARGE INSTRUCTIONS: 1. Continue with tapering dose of prednisone. 2. Follow-up appointment with Dr. Lomeli in 7-10 days. ITEMS TO FOLLOWUP ON ON OUTPATIENT: 1. COPD exacerbation. 2. Chronic medical conditions. DISCHARGE CONDITION: Stable. TIME SPENT ON DISCHARGE: Greater than 30 minutes. ADDENDUM: 07/13/2017: Ms. Bowers is evaluated at bedside this morning. We had a discussion regarding her clinical condition and the best way for her to remain out of the hospital. Patient remains clinically stable today with no changes noted since my evaluation of her yesterday. She remains safe for discharge at this time. Patient agrees to be discharged. Please see my discharge summary from 07/12/2017. ADDENDUM: 07/14/2017: Patient was evaluated at bedside this morning. She was complaining of shortness of breath and chest pain overnight. No leukocytosis, cough, or fever noted. Cardiac markers were obtained and troponin was within optimal range. A portable chest x-ray was obtained this morning which reported a possible left lower lobe consolidation. Have obtained a two-view chest x-ray which showed "Chronic changes. Cannot exclude superimposed atelectasis/partial collapse of the left lower lobe." Patient continues to remain stable without significant variation in her functional status. Discussed with patient the possibility of usp placement if patient does not feel stable enough for discharge home. Patient adamantly refused considering admission to a usp and reported that she would like to go home. Obtained HCP which patient has indicated as her son. Patient is stable for discharge. Vital Signs/I&Os Vital Signs Date Time Temp Pulse Resp B/P (MAP) Pulse Ox O2 Delivery O2 Flow Rate FiO2 07/12/17 08:41 79 146/69 07/12/17 06:00 98.7 15 100 Nasal Cannula 2.0 I&O- Last 24 Hours up to 6 AM 07/12/17 06:00 Intake Total 840 ml Output Total 1450 ml Balance -610 ml Laboratory Data Labs 24H Laboratory Tests 2 07/12/17 06:57: Anion Gap 7L, Glomerular Filtration Rate > 60.0, Blood Urea Nitrogen 32H, Creatinine 0.61, Sodium Level 144, Potassium Level 3.9, Chloride Level 106, Carbon Dioxide Level 31, Calcium Level 8.0L, Magnesium Level 2.2 CBC/BMP Laboratory Tests 07/12/17 06:57 Red Blood Count 3.38 L, Mean Corpuscular Volume 86.6, Mean Corpuscular Hemoglobin 28.2, Mean Corpuscular Hemoglobin Concent 32.5, Red Cell Distribution Width 16.4 H, Calcium Level 8.0 L Microbiology Microbiology 07/06/17 Blood Culture - Final, Complete 07/06/17 Blood Culture - Final, Complete 07/06/17 Respiratory Virus Panel (PCR) (SHAHEED) - Final, Complete Discharge Medications Scheduled Amlodipine Besylate (Amlodipine Besylate) 10 Mg Tab, 10 MG PO DAILY, (Reported) Aspirin (Aspirin 81) 81 Mg Tab, 81 MG PO DAILY, (Reported) Atorvastatin Calcium (Atorvastatin Calcium) 40 Mg Tab, 40 MG PO QHS, (Reported) Calcium/Vitamin D (Calcium 600 + D 600-400 mg-Unit) 1 Tab Tab, 1 TAB PO DAILY, ( Reported) Cetirizine HCl (Cetirizine HCl) 10 Mg Tab, 10 MG PO DAILY, (Reported) Clopidogrel Bisulfate (Clopidogrel) 75 Mg Tab, 75 MG PO DAILY, (Reported) Levothyroxine Sodium (Synthroid) 25 Mcg Tab, 25 MCG PO DAILY, (Reported) Prednisone (Prednisone) 10 Mg Tab, 10 MG PO TAPER Take 4 tabs daily x 3 days, then 3 tabs daily x 3 days, then 2 tabs daily x 3 days, then 1 tab daily x 3 days and stop Scheduled PRN Acetaminophen (Tylenol) 325 Mg Tab, 650 MG PO Q4H PRN for PAIN, (Reported) Albuterol Sulfate (Ventolin Hfa) 200 Puff/8 Gm Aers, 2 PUFF INH Q4H PRN for SHORTNESS OF BREATH, (Reported) Albuterol Sulfate (Albuterol Sulfate) 2.5 Mg/3 Ml Nebu, 2.5 MG INH Q4H PRN for SHORTNESS OF BREATH, (Reported) Alprazolam (Alprazolam) 0.25 Mg Tab, 0.25 MG PO TID PRN for ANXIETY, (Reported) Ipratropium [place] (Atrovent Hfa) 17 Mcg/Act Aer, 34 MCG INH Q4H PRN for SHORTNESS OF BREATH, (Reported) Meclizine HCl (Meclizine HCl) 12.5 Mg Tab, 12.5 MG PO Q6H PRN for DIZZINESS, ( Reported) Nitroglycerin (Nitrostat) 0.4 Mg Subl, 0.4 MG SL NITRO PRN for CHEST PAIN, ( Reported) Tizanidine Hydrochloride (Tizanidine HCl) 2 Mg Cap, 2 MG PO TID PRN for MUSCLE SPASMS, (Reported) Allergies Coded Allergies: Levofloxacin (Unverified Allergy, Intermediate, 06/12/17) Procaine (Verified Allergy, Mild, RASH, 06/12/17) BEBA GIORDANO-Isreal Jul 12, 2017 10:13
[2017-07-12] MEDS: IPRATROPIUM 0.5MG/ALBUTEROL 2.5MG INH SOL UD 3ML (DUONEB)(J7620) NEB PRN ×2 (10:41→13:03)
[2017-07-12 14:00] VITALS: BP 155/69
[2017-07-12] MEDS: ALPRAZolam 0.25 MG TAB PO PRN (15:05)
[2017-07-12] MEDS: ATORVASTATIN 20 MG TAB PO SCH (20:04)
[2017-07-12] MEDS: predniSONE 10 MG TAB PO SCH (20:04)
[2017-07-12 22:00] VITALS: BP 123/90
[2017-07-13] MEDS: IPRATROPIUM 0.5MG/ALBUTEROL 2.5MG INH SOL UD 3ML (DUONEB)(J7620) NEB SCH ×4 (01:01→19:58)
[2017-07-13] MEDS: LEVOTHYROXINE 25MCG TABLET (0.025MG) PO SCH ×2 (05:59→06:00)
[2017-07-13 06:00] VITALS: BP 159/77
[2017-07-13 07:07] LABS: MEAN CORPUSCULAR HEMOGLOBIN 27.7 pg (27.0-33.0); MEAN CORPUSCULAR VOLUME 89.4 fl (80.0-96.0); RED CELL DISTRIBUTION WIDTH 16.6 % (11.5-14.5); WHITE BLOOD COUNT 7.4 K/mm3 (4.0-10.0)
[2017-07-13] MEDS: TIOTROPIUM INHALER/CAPSULE (SPIRIVA) INH SCH (07:23)
[2017-07-13] MEDS: BUDESONIDE 180MCG INHALER (PULMICORT FLEXHALER) INH SCH ×2 (07:24→22:45)
[2017-07-13 07:30] LABS: ANION GAP 10 MEQ/L (8-16); BLOOD UREA NITROGEN 28 MG/DL (7-18); CALCIUM LEVEL 7.9 MG/DL (8.8-10.2); CARBON DIOXIDE LEVEL 28 MEQ/L (21-32); CHLORIDE LEVEL 106 MEQ/L (98-107); CREATININE FOR GFR 0.63 MG/DL (0.55-1.02); GLOMERULAR FILTRATION RATE > 60.0 (>32); GLUCOSE, FASTING 164 MG/DL (83-110); MAGNESIUM LEVEL 2.2 MG/DL (1.8-2.4); POTASSIUM SERUM 4.6 MEQ/L (3.5-5.1); SODIUM LEVEL 144 MEQ/L (136-145)
--- NOTE | 2017-07-13 08:24 | ED PDOC ---
Provider Note Ms. Bowers is evaluated at bedside this morning. We had a discussion regarding her clinical condition and the best way for her to remain out of the hospital. Patient remains clinically stable today with no changes noted since my evaluation of her yesterday. She remains safe for discharge at this time. Patient agrees to be discharged. Please see my discharge summary from 07/12/2017. BEBA GIORDANOME-I Jul 13, 2017 08:24
[2017-07-13] MEDS: guaiFENesin ER 600 MG TAB PO SCH ×3 (08:41→20:35)
[2017-07-13] MEDS: predniSONE 20 MG TAB PO SCH (08:42)
[2017-07-13] MEDS: amLODIPine 10 MG TAB PO SCH (08:43)
[2017-07-13] MEDS: ASPIRIN 81 MG ENTERIC TAB PO SCH (08:43)
[2017-07-13] MEDS: SENOKOT S TAB PO SCH ×2 (08:44→20:33)
[2017-07-13] MEDS: PANTOPRAZOLE 40MG TAB (PROTONIX) PO SCH (08:44)
[2017-07-13] MEDS: HEPARIN SOD (PORCINE) 5000 UNITS/ML VIAL SC SCH ×2 (08:44→20:33)
[2017-07-13] MEDS: CLOPIDOGREL 75 MG TAB PO SCH (08:44)
[2017-07-13] MEDS: CETIRIZINE (ZyrTEC) 10 MG TAB PO SCH (08:44)
[2017-07-13] MEDS: ALPRAZolam 0.25 MG TAB PO PRN ×2 (08:44→20:32)
[2017-07-13] MEDS: IPRATROPIUM 0.5MG/ALBUTEROL 2.5MG INH SOL UD 3ML (DUONEB)(J7620) NEB PRN ×2 (08:49→13:38)
[2017-07-13] MEDS ORDERED: IPRATROPIUM 0.5MG/ALBUTEROL 2.5MG INH SOL UD 3ML (DUONEB)(J7620) NEB ONE (10:15)
[2017-07-13 14:00] VITALS: BP 144/73
[2017-07-13 16:15] VITALS: BP_SYST 180; BP_SYST 181; BP_DIAS 70; BP_DIAS 84
--- NOTE | 2017-07-13 16:43 | REP ---
Clinical: Chest pain. Comparison: 07/07/2017. Findings: Diffuse chronic interstitial changes are appreciated. Left lower lobe consolidation and atelectasis is suggested with pleural effusion . No pneumothorax. Skeletal structures demonstrate degenerative changes and prior sternotomy. Impression: Left lower lobe consolidation and pleural effusion. Signed by Jacobo Martinez MD 07/13/2017 04:36 P
[2017-07-13 16:48] LABS: MEAN CORPUSCULAR HEMOGLOBIN 28.2 pg (27.0-33.0); MEAN CORPUSCULAR HGB CONC 32.7 g/dl (32.0-36.5); MEAN CORPUSCULAR VOLUME 86.4 fl (80.0-96.0); RED CELL DISTRIBUTION WIDTH 16.4 % (11.5-14.5); WHITE BLOOD COUNT 9.3 K/mm3 (4.0-10.0)
[2017-07-13] MEDS: ATORVASTATIN 20 MG TAB PO SCH (20:32)
[2017-07-13] MEDS: predniSONE 10 MG TAB PO SCH (20:32)
--- NOTE | 2017-07-13 21:29 | ECGEPIP ---
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
[2017-07-13 22:00] VITALS: BP 175/67
[2017-07-14] VITALS: BP 138/62
[2017-07-14] MEDS: IPRATROPIUM 0.5MG/ALBUTEROL 2.5MG INH SOL UD 3ML (DUONEB)(J7620) NEB SCH ×2 (02:00→07:32)
[2017-07-14] MEDS: LEVOTHYROXINE 25MCG TABLET (0.025MG) PO SCH (05:58)
[2017-07-14 06:00] VITALS: BP 143/72
[2017-07-14] MEDS: BUDESONIDE 180MCG INHALER (PULMICORT FLEXHALER) INH SCH (07:30)
[2017-07-14] MEDS: TIOTROPIUM INHALER/CAPSULE (SPIRIVA) INH SCH (07:31)
[2017-07-14] MEDS: PANTOPRAZOLE 40MG TAB (PROTONIX) PO SCH (09:00)
[2017-07-14] MEDS: SENOKOT S TAB PO SCH (09:00)
[2017-07-14] MEDS: HEPARIN SOD (PORCINE) 5000 UNITS/ML VIAL SC SCH (09:00)
[2017-07-14 10:09] VITALS: BP 143/72
[2017-07-14] MEDS: CLOPIDOGREL 75 MG TAB PO SCH (10:09)
[2017-07-14] MEDS: ASPIRIN 81 MG ENTERIC TAB PO SCH (10:09)
[2017-07-14] MEDS: amLODIPine 10 MG TAB PO SCH (10:09)
[2017-07-14] MEDS: predniSONE 20 MG TAB PO SCH (10:09)
[2017-07-14] MEDS: CETIRIZINE (ZyrTEC) 10 MG TAB PO SCH (10:09)
[2017-07-14] MEDS: guaiFENesin ER 600 MG TAB PO SCH (10:10)
--- NOTE | 2017-07-14 10:24 | IPNPDOC ---
Text Note Date of Service The patient was seen on 07/14/17. NOTE Patient was evaluated at bedside this morning. She was complaining of shortness of breath and chest pain overnight. No leukocytosis, cough, or fever noted. Cardiac markers were obtained and troponin was within optimal range. A portable chest x-ray was obtained this morning which reported a possible left lower lobe consolidation. Have obtained a two-view chest x-ray and are currently awaiting the report. Patient continues to remain stable without significant variation in her functional status. Discussed with patient the possibility of chcf placement if patient does not feel stable enough for discharge home. Patient adamantly refused considering admission to a chcf and reported that she would like to go home. Obtained HCP which patient has indicated as her son. Patient is stable for discharge. VS,Deepakbone, I+O VS, Fishbone, I+O Laboratory Tests 07/13/17 16:26 Red Blood Count 3.72 L, Mean Corpuscular Volume 86.4, Mean Corpuscular Hemoglobin 28.2, Mean Corpuscular Hemoglobin Concent 32.7, Red Cell Distribution Width 16.4 H Vital Signs Date Time Temp Pulse Resp B/P (MAP) Pulse Ox O2 Delivery O2 Flow Rate FiO2 07/14/17 10:09 77 143/72 07/14/17 06:00 98.3 18 98 Nasal Cannula 2.0 I&O- Last 24 Hours up to 6 AM 07/14/17 05:59 Intake Total 120 ml Output Total 100 ml Balance 20 ml BEBA GIORDANO Jul 14, 2017 10:24
--- NOTE | 2017-07-14 11:12 | REP ---
Clinical: Left lower lobe infiltrate. Technique: PA and lateral. Comparison: 07/07/2017. Findings: Mediastinum and cardiac silhouette stable. Hiatal hernia is again identified. Diffuse chronic interstitial changes are appreciated superimposed atelectasis involving the retrocardiac left lower lobe cannot be excluded. Skeletal structures demonstrate stable degenerative changes. Impression: Chronic changes. Cannot exclude superimposed atelectasis/partial collapse of the left lower lobe. Signed by Jacobo Martinez MD 07/14/2017 08:34 A
--- NOTE | 2017-07-14 16:41 | ECGEPIP ---
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
== END 2017-07-14 10:45 | disposition home or self-care (01) | DRG 192 ==
LOC: M ED 11:39 → M ED INP 15:45 → M PCU 20:39 → M MS5PR 07-07 19:10
PROVIDERS: ADMIT Hospitalist; ATTEND Internal Medicine
DX: J44.1 Chronic obstructive pulmonary disease with (acute) exacerbation (principal); F41.9 Anxiety disorder, unspecified; I25.10 Atherosclerotic heart disease of native coronary artery without angina pectoris; E03.9 Hypothyroidism, unspecified; I10 Essential (primary) hypertension; I27.2 Other secondary pulmonary hypertension; R42 Dizziness and giddiness; J30.9 Allergic rhinitis, unspecified; Z66 Do not resuscitate; Z86.73 Personal history of transient ischemic attack (TIA), and cerebral infarction without residual deficits; Z79.82 Long term (current) use of aspirin; Z79.52 Long term (current) use of systemic steroids; Z95.5 Presence of coronary angioplasty implant and graft; Z99.81 Dependence on supplemental oxygen; Z79.899 Other long term (current) drug therapy; Z88.1 Allergy status to other antibiotic agents; Z88.8 Allergy status to other drugs, medicaments and biological substances; Z86.13 Personal history of malaria; Z87.891 Personal history of nicotine dependence

== ENCOUNTER 2017-08-15 12:18 | Emergency (ER) | payer MEDICARE, OTHER ==
[~2017-08-15] VITALS: Ht 152.4 cm; Wt 47.7 kg
[2017-08-15 14:25] VITALS: BP 131/60
== END 2017-08-15 15:20 | disposition home or self-care (01) ==
LOC: M ED 12:18 → EDBD 12:18 → M ED 15:20
DX: J06.9 Acute upper respiratory infection, unspecified (principal); J44.9 Chronic obstructive pulmonary disease, unspecified; F41.9 Anxiety disorder, unspecified; Z79.82 Long term (current) use of aspirin; Z79.52 Long term (current) use of systemic steroids; Z79.899 Other long term (current) drug therapy; Z88.1 Allergy status to other antibiotic agents; Z88.8 Allergy status to other drugs, medicaments and biological substances; Z87.891 Personal history of nicotine dependence; Z95.1 Presence of aortocoronary bypass graft; Z96.0 Presence of urogenital implants

== ENCOUNTER 2017-09-22 11:32 | Inpatient (IN) | payer MEDICARE, OTHER ==
[~2017-09-22] VITALS: Ht 152.4 cm; Wt 48.5 kg
[2017-09-22] MEDS ORDERED: IPRATROPIUM 0.5MG/ALBUTEROL 2.5MG INH SOL UD 3ML (DUONEB)(J7620) NEB ONE (12:30)
[2017-09-22] MEDS ORDERED: predniSONE 20 MG TAB PO ONE (12:30)
[2017-09-22 12:54] LABS: ABG BASE EXCESS 0.4 (-2.0-2.0); ABG HCO3 26.9 MEQ/L (22.0-26.0); ABG STANDARD HCO3 24.9 MEQ/L (22.0-26.0); ABG TOTAL CO2 28.5 MEQ/L (23.0-31.0); ABG pH (ARTERIAL) 7.332 UNITS (7.350-7.450)
[2017-09-22 12:59] LABS: BASO # 0.1 10^3/uL (0.0-0.2); BASO % 0.8 % (0.0-1.0); EOS # 0.4 10^3/uL (0.0-0.50); EOS % 4.7 % (0.0-3.0); IMMATURE GRANULOCYTE % 0.3 % (0-0); LYMPH # 1.9 10^3/uL (1.5-4.5); MEAN CORPUSCULAR HEMOGLOBIN 27.1 pg (27.0-33.0); MEAN CORPUSCULAR HGB CONC 31.4 g/dl (32.0-36.5); MEAN CORPUSCULAR VOLUME 86.3 fl (80.0-96.0); MONO # 0.9 10^3/uL (0.0-0.8); MONO % 11.6 % (0.0-5.0); NEUTROPHILS # 4.3 10^3/uL (1.8-7.7); NEUTROPHILS % 57.6 % (36.0-66.0); PLATELET COUNT, AUTOMATED 384 10^3/uL (150-450); RED CELL DISTRIBUTION WIDTH 18.4 % (11.5-14.5); WHITE BLOOD COUNT 7.5 10^3/uL (4.0-10.0)
[2017-09-22 13:25] LABS: ALBUMIN 3.8 GM/DL (3.2-5.2); ALBUMIN/GLOBULIN RATIO 1.12 (1.00-1.93); BILIRUBIN,DIRECT 0.2 MG/DL (0.0-0.2); BILIRUBIN,TOTAL 0.8 MG/DL (0.2-1.0); TOTAL PROTEIN 7.2 GM/DL (6.4-8.2)
[2017-09-22 13:25] LABS: ANION GAP 6 MEQ/L (8-16); BLOOD UREA NITROGEN 18 MG/DL (7-18); CALCIUM LEVEL 9.5 MG/DL (8.8-10.2); CARBON DIOXIDE LEVEL 32 MEQ/L (21-32); CHLORIDE LEVEL 103 MEQ/L (98-107); CREATININE FOR GFR 0.53 MG/DL (0.55-1.02); GLOMERULAR FILTRATION RATE > 60.0 (>32); GLUCOSE, FASTING 106 MG/DL (83-110); POTASSIUM SERUM 4.1 MEQ/L (3.5-5.1); SODIUM LEVEL 141 MEQ/L (136-145)
[2017-09-22] MEDS ORDERED: FUROSEMIDE 40 MG/4 ML VIAL (J1940) IV ONE (13:45)
--- NOTE | 2017-09-22 14:52 | REP ---
Clinical: Chest pain. Comparison: 07/14/2017. Findings: Mediastinum and cardiac silhouette are stable. Evidence of prior sternotomy again noted. The lung carbajal demonstrate diffuse chronic interstitial changes without obvious consolidation, effusion, or pneumothorax. Skeletal structures demonstrate age-related degenerative changes to the thoracic spine and bilateral shoulders. Impression: Chronic-appearing changes. Cannot exclude very subtle superimposed atelectasis. Signed by Jacobo Martinez MD 09/22/2017 02:42 P
--- NOTE | 2017-09-22 15:14 | REP ---
PORTABLE LEFT SHOULDER: Single portable view of the left shoulder performed and compared to prior studies. There is joint space narrowing and subchondral sclerosis at the glenohumeral joint with mild narrowing also seen at the acromioclavicular joint. No definite fracture is seen. There appears to be a benign calcification in the left lung apex. IMPRESSION: Limited single view demonstrates degenerative change with no definite fracture. Signed by Jaiden Fulton MD 09/22/2017 03:51 P
[2017-09-22] MEDS ORDERED: ISOVUE-370 76% 100ML VIAL (Q9967) As Ordered ONE (15:44)
[2017-09-22] MEDS ORDERED: ONDANSETRON 4MG/2ML VIAL (J2405) IV PRN (15:45)
[2017-09-22] MEDS ORDERED: ACETAMINOPHEN TAB 650MG DOSE (2X325MG) PO PRN (15:45)
[2017-09-22] MEDS ORDERED: IPRATROPIUM 0.5MG/ALBUTEROL 2.5MG INH SOL UD 3ML (DUONEB)(J7620) NEB PRN (15:45)
[2017-09-22] MEDS ORDERED: PRED10TA2 PO (15:51)
[2017-09-22] MEDS ORDERED: ADV250INH INH (15:51)
[2017-09-22] MEDS: SODIUM CHLORIDE NASAL 0.65% SPRAY BTL (OCEAN) SCH ×2 (16:00→21:00)
[2017-09-22] MEDS ORDERED: IPRATROPIUM 0.02% SOLN 0.5MG/2.5 ML NEB INH PRN (16:00)
--- NOTE | 2017-09-22 16:24 | HPE ---
DATE OF ADMISSION: 09/22/2017 PRIMARY CARE PROVIDER: Dr. Anson Lomeli VIDEO CLERK: Dr. Justice WIRE FRAME MAKER: Patient used to see Dr. Salguero CHIEF COMPLAINT: Shortness of breath and left shoulder pain. HISTORY OF PRESENT ILLNESS: This is an 82-year-old female patient, poor historian with an underlying medical history of COPD, anxiety, coronary artery disease on medical record documented with stenting but patient denies any stent which is a bit odd, pulmonary hypertension, transient ischemic attack (TIA), history of malaria, history of dysentery. Patient is a poor historian. Patient represented since this morning 5 am, with acute worsening shortness of breath and also left shoulder pain. Patient reported an increase and no sick contact, no fevers, no chills. Reported cough, baseline ambulating with a walker. Oxygen intermittently 1-4 liters. Reported worsening shortness of breath since this morning, otherwise feels okay. She denies any chest pain, pressure or discomfort, denies any abdominal pain, diarrhea, constipation, nausea, or vomiting. PAST MEDICAL HISTORY: COPD, anxiety, coronary artery disease with stenting although the patient denies any stenting, pulmonary artery hypertension, TIA, history of malaria, history of dysentery. PAST SURGICAL HISTORY: Right kidney procedure with stenting, aortic surgery even though the patient does not remember, cardiac cath with stent placement although the patient reported cardiac cath but denies any stenting, appendectomy. SOCIAL HISTORY: The patient lives at home with her son and sons family. Quit smoking 27 years ago. Denies alcohol or illicit drug use. FAMILY HISTORY: Sister with breast cancer. ALLERGIES: Levaquin, procaine, and Lidocaine. REVIEW OF SYSTEMS: Reported shortness of breath, left shoulder pain, chest congestion, coughing. All other review of systems are negative. Patient is a poor historian. HOME MEDICATIONS: - acetaminophen 650 mg by mouth every 4 hours as needed - Ventolin inhalers every 4 hours as needed - albuterol nebulizer treatment every 4 hours as needed - Xanax 0.25 mg by mouth three times a day as needed - Norvasc 10 mg by mouth daily - Aspirin 81 mg by mouth daily - Lipitor 40 mg by mouth at bedtime - calcium with vitamin D 1 tablet by mouth daily - Zyrtec 10 mg by mouth daily - Plavix 75 mg by mouth daily - Atrovent 34 mcg inhalation every 4 hours as needed - Levothyroxine 25 mcg by mouth daily - meclizine 12.5 mg by mouth every 6 hours as needed - sublingual nitro 0.4 mg as needed - prednisone 10 mg by mouth - tizanidine 5 mg by mouth three times a day as needed PHYSICAL EXAMINATION: VITAL SIGNS: Temperature 98.5, pulse 86, respiration 26, blood pressure 192/82, pulse ox 97% on 2 liters nasal cannula. GENERAL: Patient is frail in no acute distress. HEENT: Normocephalic traumatic. PULMONARY: Bilateral rhonchi, mild expiratory wheeze. CARDIAC: Regular S1, S2 with 2/6 systolic murmur. ABDOMEN: Soft and nontender, doughy. Positive bowel sounds. Extremities 1+ edema bilateral lower extremities. EKG shows sinus rhythm with PVCs at 85. LABORATORY: WBC 7.5, H and H 10.5/33.4, platelets 384. Chemistries: Sodium 141, potassium 4.1, chloride 103, bicarbonate 32, BUN 18, creatinine 0.53, lactic acid 1.4, cardiac enzyme negative times one. IMPRESSION: This is an 82-year-old female patient with underlying medical history of coronary artery disease, COPD, anxiety, pulmonary artery hypertension, TIA, history of malaria, history of dysentery. Patient presented with acute or worsening shortness of breath and left sided shoulder pain. PROBLEMS: 1. Shortness of breath, possibly acute COPD exacerbation due to viral bronchitis. Patient does not have any leukocytosis, followup respiratory panel, sputum culture, blood cultures, Solu-Medrol, nebulizer treatments. Continue home medications, Mucinex, saline nasal spray, Flonase, respiratory panel, followup CT angio to rule pulmonary embolism. 2. Bilateral lower extremity edema. Will follow echocardiogram. The diuretic has been started. Followup cardiac enzymes. BMP appreciated. 3. Coronary artery disease. Continue home medication. 4. Left sided shoulder pain. Possible referred pain from underlying lung disease. Will get CT angio, easy pep for atelectasis. Pain medication was prescribed. Serial cardiac enzymes. X-ray of the shoulder appreciated. CT angio to rule out pulmonary embolism. 5. Anxiety. Continue home medications. 6. Coronary artery disease. Continue Aspirin. 7. Hypertension. Patient on Lasix. Will monitor blood pressure. Pain medication was prescribed. 8. History of TIA. Continue Aspirin. 9. Deep venous thrombosis (DVT) prophylaxis. Lovenox subcu. DISPOSITION: Pending further workup, clinical improvement, treatment for COPD, viral bronchitis and echocardiogram, CT angio. Physical therapy has been ordered.
--- NOTE | 2017-09-22 16:49 | REP ---
CT ANGIOGRAM OF THE CHEST: TECHNIQUE: Axial contrast enhanced images from the thoracic inlet to the upper abdomen using 100 mL Isovue 370 intravenous contrast material with multiplanar reformations. There is no CT evidence of pulmonary embolism. There is no pleural or pericardial effusion. Heart is normal in size. There is a hiatal hernia present. There are atherosclerotic calcifications of the thoracic aorta without aneurysm or dissection. Bilateral linear bandlike fibroatelectatic changes noted. IMPRESSION: No CT evidence of pulmonary embolism. Signed by Jaiden Fulton MD 09/22/2017 08:11 P
[2017-09-22 17:14] LABS: T UPTAKE 32 % (30-39); THYROXINE (T4) 11.3 UG/DL (4.5-12.0)
[2017-09-22] MEDS: PERCOCET 5MG/325MG TAB PO PRN (18:00)
[2017-09-22] MEDS: IPRATROPIUM 0.5MG/ALBUTEROL 2.5MG INH SOL UD 3ML (DUONEB)(J7620) NEB SCH (18:16)
[2017-09-22] MEDS: ADVAIR HFA 115/21MCG INHALER INH SCH (20:18)
[2017-09-22] MEDS ORDERED: methylPREDNISolone INJ 125 MG/2 ML VIAL (J2930) IV SCH (21:00)
[2017-09-22] MEDS: FLUTICASONE PROP 0.05% NASAL SPRAY 16 GM (FLONASE) SCH (21:00)
[2017-09-22] MEDS: SENOKOT S TAB PO SCH (21:00)
[2017-09-22 21:35] VITALS: BP 115/62
[2017-09-22] MEDS: guaiFENesin ER 600 MG TAB PO SCH (21:54)
[2017-09-22 23:59] VITALS: BP 140/60
[2017-09-23] MEDS: IPRATROPIUM 0.5MG/ALBUTEROL 2.5MG INH SOL UD 3ML (DUONEB)(J7620) NEB SCH ×4 (02:00→17:54)
[2017-09-23 04:00] VITALS: BP 135/63
[2017-09-23 05:17] LABS: MEAN CORPUSCULAR HEMOGLOBIN 26.6 pg (27.0-33.0); MEAN CORPUSCULAR HGB CONC 31.7 g/dl (32.0-36.5); MEAN CORPUSCULAR VOLUME 83.7 fl (80.0-96.0); PLATELET COUNT, AUTOMATED 329 10^3/uL (150-450); RED CELL DISTRIBUTION WIDTH 18.3 % (11.5-14.5); WHITE BLOOD COUNT 3.9 10^3/uL (4.0-10.0)
[2017-09-23 05:34] LABS: ANION GAP 7 MEQ/L (8-16); BLOOD UREA NITROGEN 20 MG/DL (7-18); CALCIUM LEVEL 8.8 MG/DL (8.8-10.2); CARBON DIOXIDE LEVEL 31 MEQ/L (21-32); CHLORIDE LEVEL 101 MEQ/L (98-107); CREATININE FOR GFR 0.63 MG/DL (0.55-1.02); GLOMERULAR FILTRATION RATE > 60.0 (>32); GLUCOSE, FASTING 154 MG/DL (83-110); MAGNESIUM LEVEL 1.9 MG/DL (1.8-2.4); POTASSIUM SERUM 3.7 MEQ/L (3.5-5.1); SODIUM LEVEL 139 MEQ/L (136-145)
[2017-09-23] MEDS: ADVAIR HFA 115/21MCG INHALER INH SCH ×2 (07:23→19:25)
[2017-09-23 08:00] VITALS: BP 138/62
[2017-09-23] MEDS: FLUTICASONE PROP 0.05% NASAL SPRAY 16 GM (FLONASE) SCH ×3 (08:26→20:52)
[2017-09-23] MEDS: SODIUM CHLORIDE NASAL 0.65% SPRAY BTL (OCEAN) SCH ×4 (08:26→20:52)
[2017-09-23] MEDS: predniSONE 20 MG TAB PO SCH (08:27)
[2017-09-23] MEDS: AZITHROMYCIN 250 MG TAB PO SCH (08:27)
[2017-09-23] MEDS: ENOXAPARIN 30 MG/0.3 ML SYR (J1650) SC SCH ×2 (08:27→09:00)
[2017-09-23] MEDS: ASPIRIN 81 MG ENTERIC TAB PO SCH (08:28)
[2017-09-23] MEDS: guaiFENesin ER 600 MG TAB PO SCH ×3 (08:28→20:52)
[2017-09-23] MEDS: FUROSEMIDE 20 MG/2 ML VIAL (J1940) IV SCH (08:28)
--- NOTE | 2017-09-23 08:28 | ECGEPIP ---
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
--- NOTE | 2017-09-23 08:33 | ECGEPIP ---
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
[2017-09-23] MEDS: SENOKOT S TAB PO SCH ×2 (09:00→20:52)
[2017-09-23] MEDS: ALBUTEROL SULFATE 2.5 MG/0.5 ML INH NEB SOLN NEB PRN ×2 (10:03→22:19)
--- NOTE | 2017-09-23 10:23 | IPNPDOC ---
Subjective Date Seen The patient was seen on 09/23/17. Subjective Chief Complaint/HPI The patient is a 82-year-old female admitted with a reason for visit of Copd With Exacerbation & Sob At Rest. Events since last encounter complains of SOB but says a little better than before. no fever or chills, says has secretions but cannot cough it up. Objective Physical Examination General Exam: Positive: Alert, Cooperative, No Acute Distress Eye Exam: Positive: PERRLA, Conjunctiva & lids normal, EOMI, Negative: Sclera icteric ENT Exam: Positive: Atraumatic, Mucous membr. moist/pink, Pharynx Normal Neck Exam: Positive: Supple, Negative: JVD, thyromegaly Chest Exam: Positive: Diminished Heart Exam: Positive: Rate Normal, Regular Rhythm, Normal S1, Normal S2, Negative: Murmurs, Rubs Telemetry: Positive: No significant arrhythmia Abdomen Exam: Positive: Normal bowel sounds, Soft, Negative: Tenderness, Hepatospenomegaly Extremity Exam: Positive: Normal pulses, Negative: Clubbing, Cyanosis, Edema Assessment /Plan Problems (1) End stage COPD Status: Chronic Problem Text: with exacerbation will continue with nebulizations, azithromycin , acapella, inhalors and prednisone. (2) Chronic respiratory failure with hypoxia Status: Chronic (3) Pulmonary hypertension Status: Chronic (4) CAD (coronary artery disease) Status: Chronic (5) HTN (hypertension) Status: Chronic (6) Hypothyroidism Status: Chronic (7) Dyslipidemia Status: Chronic (8) Anxiety Status: Chronic (9) Hiatal hernia Status: Chronic (10) Hx of transient ischemic attack (TIA) Status: Resolved (11) Anemia Status: Chronic Plan/VTE VTE Prophylaxis Ordered?: Yes VS, I&O, 24H, Fishbone Vital Signs/I&O Vital Signs Date Time Temp Pulse Resp B/P (MAP) Pulse Ox O2 Delivery O2 Flow Rate FiO2 09/23/17 08:02 Nasal Cannula 2.0 09/23/17 08:00 97.7 82 18 138/62 (87) 97 I&O- Last 24 Hours up to 6 AM 09/24/17 06:00 Output Total 300 ml Balance -300 ml Laboratory Data 24H LABS Laboratory Tests 2 09/22/17 12:37: Blood Gas Bicarbonate Standard 24.9, Arterial Blood pH 7.332L, Arterial Blood Partial Pressure CO2 52.0H, Arterial Blood Partial Pressure O2 101.0H, Arterial Blood Total CO2 28.5, Arterial Blood HCO3 26.9H, Arterial Blood Base Excess 0.4 , Arterial Blood Oxygen Saturation 97.3 09/22/17 12:45: Aspartate Amino Transf (AST/SGOT) 24, Alanine Aminotransferase (ALT/SGPT) 24, Alkaline Phosphatase 99, Total Bilirubin 0.8, Direct Bilirubin 0.2, NT-Pro-B- Type Natriuretic Peptide 880H, Total Protein 7.2, Albumin 3.8, Albumin/Globulin Ratio 1.12 09/22/17 12:46: Immature Granulocyte % (Auto) 0.3H, White Blood Count 7.5, Red Blood Count 3.87L , Hemoglobin 10.5L, Hematocrit 33.4L, Mean Corpuscular Volume 86.3, Mean Corpuscular Hemoglobin 27.1, Mean Corpuscular Hemoglobin Concent 31.4L, Red Cell Distribution Width 18.4H, Platelet Count 384, Neutrophils (%) (Auto) 57.6, Lymphocytes (%) (Auto) 25.0, Monocytes (%) (Auto) 11.6H, Eosinophils (%) (Auto) 4.7H, Basophils (%) (Auto) 0.8, Neutrophils # (Auto) 4.3, Lymphocytes # (Auto) 1.9, Monocytes # (Auto) 0.9H, Eosinophils # (Auto) 0.4, Basophils # (Auto) 0.1, Immature Granulocyte # (Auto) 0.0, Nucleated Red Blood Cells % (auto) 0.0, Anion Gap 6L, Glomerular Filtration Rate > 60.0, Lactic Acid Level 1.4, Blood Urea Nitrogen 18, Creatinine 0.53L, Sodium Level 141, Potassium Level 4.1, Chloride Level 103, Carbon Dioxide Level 32, Calcium Level 9.5, Total Creatine Kinase 276H, Creatine Kinase MB 8.3H, Creatine Kinase MB Relative Index 3.00, Troponin I < 0.02 09/22/17 15:05: Total Creatine Kinase 287H, Creatine Kinase MB 8.0H, Creatine Kinase MB Relative Index 2.78, Troponin I < 0.02, C-Reactive Protein, Quantitative < 0.30 , Thyroid Stimulating Hormone (TSH) 1.980, Free Thyroxine Index 3.6, Thyroxine ( T4) 11.3, Triiodothyronine (T3) Uptake 32 09/22/17 19:50: Total Creatine Kinase 263H, Creatine Kinase MB 6.5H, Creatine Kinase MB Relative Index 2.47, Troponin I < 0.02 09/23/17 04:49: Nucleated Red Blood Cells % (auto) 0.0, Anion Gap 7L, Glomerular Filtration Rate > 60.0, Blood Urea Nitrogen 20H, Creatinine 0.63, Sodium Level 139, Potassium Level 3.7, Chloride Level 101, Carbon Dioxide Level 31, Calcium Level 8.8, Magnesium Level 1.9, C-Reactive Protein, Quantitative < 0.30 CBC/BMP Laboratory Tests 09/22/17 12:46 Red Blood Count 3.87 L, Mean Corpuscular Volume 86.3, Mean Corpuscular Hemoglobin 27.1, Mean Corpuscular Hemoglobin Concent 31.4 L, Red Cell Distribution Width 18.4 H, Neutrophils (%) (Auto) 57.6, Lymphocytes (%) (Auto) 25.0, Monocytes (%) (Auto) 11.6 H, Eosinophils (%) (Auto) 4.7 H, Basophils (%) ( Auto) 0.8, Neutrophils # (Auto) 4.3, Lymphocytes # (Auto) 1.9, Monocytes # (Auto ) 0.9 H, Eosinophils # (Auto) 0.4, Basophils # (Auto) 0.1, Calcium Level 9.5, Total Creatine Kinase 276 H 09/23/17 04:49 Red Blood Count 3.50 L, Mean Corpuscular Volume 83.7, Mean Corpuscular Hemoglobin 26.6 L, Mean Corpuscular Hemoglobin Concent 31.7 L, Red Cell Distribution Width 18.3 H, Calcium Level 8.8 Microbiology Microbiology 09/22/17 Blood Culture, Received Pending GEORGIA TRIMBLE MD Sep 23, 2017 10:23
[2017-09-23 12:00] VITALS: BP 142/62
[2017-09-23 15:09] VITALS: BP 146/66
[2017-09-23 22:00] VITALS: BP 150/70
[2017-09-24] MEDS: PERCOCET 5MG/325MG TAB PO PRN (00:38)
[2017-09-24] MEDS: ALPRAZolam 0.25 MG TAB PO PRN ×2 (00:38→10:31)
[2017-09-24] MEDS: IPRATROPIUM 0.5MG/ALBUTEROL 2.5MG INH SOL UD 3ML (DUONEB)(J7620) NEB SCH ×4 (01:17→23:22)
[2017-09-24 06:00] VITALS: BP 155/71
[2017-09-24 06:56] LABS: MEAN CORPUSCULAR HEMOGLOBIN 26.5 pg (27.0-33.0); MEAN CORPUSCULAR HGB CONC 31.3 g/dl (32.0-36.5); MEAN CORPUSCULAR VOLUME 84.6 fl (80.0-96.0); PLATELET COUNT, AUTOMATED 331 10^3/uL (150-450); RED CELL DISTRIBUTION WIDTH 18.8 % (11.5-14.5); WHITE BLOOD COUNT 11.9 10^3/uL (4.0-10.0)
[2017-09-24 07:15] LABS: ANION GAP 6 MEQ/L (8-16); CALCIUM LEVEL 8.9 MG/DL (8.8-10.2); CARBON DIOXIDE LEVEL 31 MEQ/L (21-32); CHLORIDE LEVEL 105 MEQ/L (98-107); CREATININE FOR GFR 0.71 MG/DL (0.55-1.02); GLOMERULAR FILTRATION RATE > 60.0 (>32); GLUCOSE, FASTING 78 MG/DL (83-110); MAGNESIUM LEVEL 2.1 MG/DL (1.8-2.4); POTASSIUM SERUM 3.5 MEQ/L (3.5-5.1); SODIUM LEVEL 142 MEQ/L (136-145)
[2017-09-24 07:36] LABS: BLOOD UREA NITROGEN 33 MG/DL (7-18)
[2017-09-24] MEDS: ADVAIR HFA 115/21MCG INHALER INH SCH ×2 (07:51→20:22)
[2017-09-24] MEDS: predniSONE 20 MG TAB PO SCH (07:59)
[2017-09-24] MEDS: ASPIRIN 81 MG ENTERIC TAB PO SCH (08:00)
[2017-09-24] MEDS: FUROSEMIDE 20 MG/2 ML VIAL (J1940) IV SCH (08:00)
[2017-09-24] MEDS: AZITHROMYCIN 250 MG TAB PO SCH (08:00)
[2017-09-24] MEDS: FLUTICASONE PROP 0.05% NASAL SPRAY 16 GM (FLONASE) SCH ×2 (08:02→21:12)
[2017-09-24] MEDS: SODIUM CHLORIDE NASAL 0.65% SPRAY BTL (OCEAN) SCH ×3 (08:02→21:12)
[2017-09-24] MEDS: ENOXAPARIN 30 MG/0.3 ML SYR (J1650) SC SCH (08:02)
[2017-09-24] MEDS: SENOKOT S TAB PO SCH ×2 (08:03→20:55)
[2017-09-24] MEDS: guaiFENesin ER 600 MG TAB PO SCH ×2 (08:03→21:12)
--- NOTE | 2017-09-24 10:06 | IPNPDOC ---
Subjective Date Seen The patient was seen on 09/24/17. Subjective Chief Complaint/HPI The patient is a 82-year-old female admitted with a reason for visit of Copd With Exacerbation & Sob At Rest. Events since last encounter complains of "just not feeling right" no fever or chills, no chest pain, no nausea or vomiting or diarrhea, has some dry cough , no phlegm. Objective Physical Examination General Exam: Positive: Alert, Cooperative, No Acute Distress Eye Exam: Positive: PERRLA, Conjunctiva & lids normal, EOMI, Negative: Sclera icteric ENT Exam: Positive: Atraumatic, Mucous membr. moist/pink, Pharynx Normal Neck Exam: Positive: Supple, Negative: JVD, thyromegaly Chest Exam: Positive: Rales, Diminished Heart Exam: Positive: Rate Normal, Regular Rhythm, Normal S1, Normal S2, Negative: Murmurs, Rubs Telemetry: Positive: No significant arrhythmia Abdomen Exam: Positive: Normal bowel sounds, Soft, Negative: Tenderness, Hepatospenomegaly Extremity Exam: Positive: Normal pulses, Negative: Clubbing, Cyanosis, Edema Assessment /Plan Problems (1) End stage COPD Status: Chronic Problem Text: with exacerbation will continue with nebulizations, azithromycin , acapella, inhalors and prednisone. (2) Chronic respiratory failure with hypoxia and hypercapnia Status: Chronic Problem Text: will continue with oxygen supplementation (3) Pulmonary hypertension Status: Chronic (4) CAD (coronary artery disease) Status: Chronic Problem Text: with h/o stents. (5) HTN (hypertension) Status: Chronic (6) Hypothyroidism Status: Chronic (7) Dyslipidemia Status: Chronic (8) Anxiety Status: Chronic (9) Hiatal hernia Status: Chronic (10) Hx of transient ischemic attack (TIA) Status: Resolved (11) Anemia Status: Chronic Problem Text: worse than usual will check iron studies, v b12 and folate levels. (12) Memory difficulties Status: Chronic Problem Text: seems to have poor short term memory. asking the same question repeatedly will do MMSE during the admission once feeling a little better. May be has mild dementia. Plan/VTE VTE Prophylaxis Ordered?: Yes VS, I&O, 24H, Fishbone Vital Signs/I&O Vital Signs Date Time Temp Pulse Resp B/P (MAP) Pulse Ox O2 Delivery O2 Flow Rate FiO2 09/24/17 06:00 97.8 93 18 155/71 (99) 96 Nasal Cannula 2.0 Laboratory Data 24H LABS Laboratory Tests 2 09/24/17 06:02: Nucleated Red Blood Cells % (auto) 0.0, Anion Gap 6L, Glomerular Filtration Rate > 60.0, Blood Urea Nitrogen 33#H, Creatinine 0.71, Sodium Level 142, Potassium Level 3.5, Chloride Level 105, Carbon Dioxide Level 31, Calcium Level 8.9, Magnesium Level 2.1 CBC/BMP Laboratory Tests 09/24/17 06:02 Red Blood Count 3.32 L, Mean Corpuscular Volume 84.6, Mean Corpuscular Hemoglobin 26.5 L, Mean Corpuscular Hemoglobin Concent 31.3 L, Red Cell Distribution Width 18.8 H, Calcium Level 8.9 Microbiology Microbiology 09/22/17 Blood Culture - Preliminary, Resulted No growth after 24 hours . All specim... GEORGIA TRIMBLE MD Sep 24, 2017 10:06
[2017-09-24 10:18] LABS: RETIC HEMOGLOBIN EQUIVALENT 31.5 pg (24-36)
[2017-09-24 10:30] LABS: PERCENT SATURATION 4.9 % (13.2-45.0)
[2017-09-24] MEDS: ALBUTEROL SULFATE 2.5 MG/0.5 ML INH NEB SOLN NEB PRN ×3 (11:00→20:23)
[2017-09-24 14:00] VITALS: BP 127/59
[2017-09-24] MEDS: FERROUS GLUCONATE 324 MG TAB PO SCH ×2 (14:46→21:12)
[2017-09-24 22:00] VITALS: BP 138/65
[2017-09-25 06:00] VITALS: BP 146/65
[2017-09-25] MEDS: guaiFENesin/CODEINE SYRUP 5 ML UDC PO SCH ×4 (06:00→23:56)
[2017-09-25 06:39] LABS: ANION GAP 4 MEQ/L (8-16); BLOOD UREA NITROGEN 26 MG/DL (7-18); CALCIUM LEVEL 8.6 MG/DL (8.8-10.2); CARBON DIOXIDE LEVEL 32 MEQ/L (21-32); CHLORIDE LEVEL 105 MEQ/L (98-107); CREATININE FOR GFR 0.68 MG/DL (0.55-1.02); GLOMERULAR FILTRATION RATE > 60.0 (>32); GLUCOSE, FASTING 85 MG/DL (83-110); MAGNESIUM LEVEL 1.9 MG/DL (1.8-2.4); POTASSIUM SERUM 3.8 MEQ/L (3.5-5.1); SODIUM LEVEL 141 MEQ/L (136-145)
[2017-09-25 06:40] LABS: MEAN CORPUSCULAR HEMOGLOBIN 26.6 pg (27.0-33.0); MEAN CORPUSCULAR HGB CONC 31.2 g/dl (32.0-36.5); MEAN CORPUSCULAR VOLUME 85.4 fl (80.0-96.0); PLATELET COUNT, AUTOMATED 325 10^3/uL (150-450); RED CELL DISTRIBUTION WIDTH 18.6 % (11.5-14.5); WHITE BLOOD COUNT 10.6 10^3/uL (4.0-10.0)
[2017-09-25] MEDS: IPRATROPIUM 0.5MG/ALBUTEROL 2.5MG INH SOL UD 3ML (DUONEB)(J7620) NEB SCH ×3 (06:52→23:32)
[2017-09-25] MEDS ORDERED: DEXTROMETHORPHAN 60MG/10ML SUSP 90ML BTL(DELSYM) PO PRN (07:45)
[2017-09-25] MEDS: ENOXAPARIN 30 MG/0.3 ML SYR (J1650) SC SCH (09:00)
[2017-09-25] MEDS: SENOKOT S TAB PO SCH ×2 (09:00→19:58)
[2017-09-25] MEDS: SODIUM CHLORIDE NASAL 0.65% SPRAY BTL (OCEAN) SCH ×5 (09:00→20:01)
[2017-09-25] MEDS: SYMBICORT 80/4.5MCG INHALER 6GM INH SCH ×2 (09:06→20:20)
[2017-09-25] MEDS: FLUTICASONE PROP 0.05% NASAL SPRAY 16 GM (FLONASE) SCH ×2 (10:11→20:00)
[2017-09-25] MEDS: AZITHROMYCIN 250 MG TAB PO SCH (10:11)
[2017-09-25] MEDS: ASPIRIN 81 MG ENTERIC TAB PO SCH (10:12)
[2017-09-25] MEDS: FERROUS GLUCONATE 324 MG TAB PO SCH ×3 (10:12→20:08)
[2017-09-25] MEDS: predniSONE 10 MG TAB PO SCH (10:12)
--- NOTE | 2017-09-25 10:14 | IPNPDOC ---
Date Seen The patient was seen on 09/25/17. Progress Note SUBJECTIVE: Patient is an 82-year-old female with past medical history of: COPD; pulmonary hypertension; CAD; hypertension; hypothyroidism; dyslipidemia; anxiety; hiatal hernia; history of TIA; anemia; memory difficulties; presenting on 09/22/2017 with shortness of breath/COPD exacerbation. Today, patient was seen bedside and states she feels no better than upon admission. She denies any sputum production with her cough. She states her shortness of breath has no worsened nor improved since she was admitted. At present, she denies lightheadedness, dizziness, headache, chest pain, abdominal pain, nausea, vomiting. A mini-mental status exam was also performed today due to concerns about memory impairment. She was displeased with what she thought was the presumtive diagnosis, unable to acknowledge any memory impairments. However, she was able to complete the exam sufficiently. OBJECTIVE PHYSICAL EXAMINATION: VITAL SIGNS: Please see below. GENERAL: Elderly female lying supine in bed in no apparent distress HEENT: Atraumatic, normocephalic. EOMI. PERRLA. Neck supple. CARDIOVASCULAR: Normal S1/S2 without noted rubs, murmurs, or gallops. RESPIRATORY: Diffuse rhonchorus breath sounds throughout both lungs. ABDOMINAL: Soft, non-tender, no peritoneal signs; normoactive bowel sounds EXTREMITIES: Moves all extremities. No noted peripheral edema. NEUROLOGICAL: CN II-XII grossly intact PSYCHOLOGICAL: Mildly agitated mood LABORATORY DATA: Please see below. MICROBIOLOGY: Please see below. IMAGING: Chest X-Ray Impression: Chronic-appearing changes. Cannot exclude very subtle superimposed atelectasis. Left Shoulder X-Ray Impression: Limited single view demonstrates degenerative change with no definite fracture CT Angiogram of the Chest Impression: No CT evidence of pulmonary embolism. DVT prophylaxis ordered?: Yes, Lovenox 30 mg subcutaneous injection every day. ASSESSMENT AND PLAN: This is an 82-year-old female with COPD exacerbation. PROBLEMS: 1. COPD Exacerbation: - Prednisone 30mg by mouth every day - DuoNeb every 8 hours by nebulizer - Flonase 0.05% 1 spray each nostril twice a day - Albuterol 2.5mg every 2 hours by inhaler as needed for shortness of breath/ wheezing - Guaifenesin 600mg by mouth twice a day - Fluticasone/Salmeterol (Advair) 1 puff inhaled twice a day - Azithromycin 500mg by mouth daily for 7 days - Acapella device 2. Pulmonary Hypertension - Oxygen supplementation, titrate to 88-92% SpO2 3. Memory difficulties - Patient scored 23/30 on MMSE with college level education; interpreted as mild cognitive impairment. 4. Anemia - Iron studies consistent with anemia of chronic disease - Waiting on Folate, Vit B12 5. Anxiety: - Alprazolam 0.25mg by mouth three times per day as needed for anxiety 6. Shoulder pain: - Percocet 5mg/325mg 1 tablet by mouth every 4 hours as needed for moderate pain - Acetaminophen 650mg by mouth every 4 hours as needed for mild pain or fever 7. Nausea: - Ondansetron 4mg IV every 6 hours as needed for nausea or vomiting 8. Pulmonary Hypertension 9. CAD with stenting - Prescribed Clopidogrel 75 mg by mouth daily, but patient reports not taking at home 10. Hypertension -Prescribed Amlodipine 10mg by mouth daily, but patient reports not taking at home 11. Hypothyroidism - Prescribed levothyroxine 25mcg by mouth daily, but patient reports not taking at home 12. Dyslipidemia - Prescribed atorvastatin 40mg by mouth daily at bedtime, but patient reports not taking at home 13. Hiatal Hernia 14. Hx of TIA DISPOSITION: Admitted to the medical-surgical unit. Continue with current medications for COPD exacerbation. Screen for MRSA. VS, I&O, 24H, Fishbone Vital Signs/I&O Vital Signs Date Time Temp Pulse Resp B/P (MAP) Pulse Ox O2 Delivery O2 Flow Rate FiO2 09/24/17 22:00 98.2 100 18 138/65 (89) 95 Nasal Cannula 2.0 Laboratory Data 24H LABS Laboratory Tests 2 09/25/17 06:08: Nucleated Red Blood Cells % (auto) 0.0, Anion Gap 4L, Glomerular Filtration Rate > 60.0, Blood Urea Nitrogen 26H, Creatinine 0.68, Sodium Level 141, Potassium Level 3.8, Chloride Level 105, Carbon Dioxide Level 32, Calcium Level 8.6L, Magnesium Level 1.9 CBC/BMP Laboratory Tests 09/25/17 06:08 Red Blood Count 3.23 L, Mean Corpuscular Volume 85.4, Mean Corpuscular Hemoglobin 26.6 L, Mean Corpuscular Hemoglobin Concent 31.2 L, Red Cell Distribution Width 18.6 H, Calcium Level 8.6 L Microbiology Microbiology 09/22/17 Blood Culture - Preliminary, Resulted No Growth after 48 hours. All Specime... BEBA GIORDANO DO Sep 25, 2017 07:18
[2017-09-25 13:57] LABS: FOLATE 6.2 NG/ML (>5.4)
[2017-09-25 14:00] VITALS: BP 137/62
[2017-09-25 22:00] VITALS: BP 149/65
[2017-09-26] MEDS: ALBUTEROL SULFATE 2.5 MG/0.5 ML INH NEB SOLN NEB PRN ×4 (01:33→23:03)
[2017-09-26] MEDS: guaiFENesin/CODEINE SYRUP 5 ML UDC PO SCH ×3 (05:19→18:00)
[2017-09-26 06:00] VITALS: BP 154/67
[2017-09-26 06:36] LABS: MEAN CORPUSCULAR HEMOGLOBIN 26.4 pg (27.0-33.0); MEAN CORPUSCULAR HGB CONC 31.3 g/dl (32.0-36.5); MEAN CORPUSCULAR VOLUME 84.4 fl (80.0-96.0); PLATELET COUNT, AUTOMATED 304 10^3/uL (150-450); WHITE BLOOD COUNT 8.2 10^3/uL (4.0-10.0)
[2017-09-26 06:44] LABS: ANION GAP 5 MEQ/L (8-16); BLOOD UREA NITROGEN 22 MG/DL (7-18); CALCIUM LEVEL 8.2 MG/DL (8.8-10.2); CARBON DIOXIDE LEVEL 32 MEQ/L (21-32); CHLORIDE LEVEL 106 MEQ/L (98-107); GLOMERULAR FILTRATION RATE > 60.0 (>32); GLUCOSE, FASTING 83 MG/DL (83-110); MAGNESIUM LEVEL 1.9 MG/DL (1.8-2.4); POTASSIUM SERUM 3.8 MEQ/L (3.5-5.1); SODIUM LEVEL 143 MEQ/L (136-145)
[2017-09-26] MEDS: SYMBICORT 80/4.5MCG INHALER 6GM INH SCH ×2 (07:42→19:48)
[2017-09-26] MEDS: IPRATROPIUM 0.5MG/ALBUTEROL 2.5MG INH SOL UD 3ML (DUONEB)(J7620) NEB SCH ×3 (07:43→19:49)
[2017-09-26] MEDS: FERROUS GLUCONATE 324 MG TAB PO SCH ×2 (09:00→21:00)
[2017-09-26] MEDS: SENOKOT S TAB PO SCH ×2 (09:00→21:00)
[2017-09-26] MEDS: ENOXAPARIN 30 MG/0.3 ML SYR (J1650) SC SCH (09:00)
[2017-09-26] MEDS: SODIUM CHLORIDE NASAL 0.65% SPRAY BTL (OCEAN) SCH ×3 (09:00→21:00)
[2017-09-26] MEDS: FLUTICASONE PROP 0.05% NASAL SPRAY 16 GM (FLONASE) SCH ×2 (09:00→21:00)
[2017-09-26] MEDS: ASPIRIN 81 MG ENTERIC TAB PO SCH (09:11)
[2017-09-26] MEDS: predniSONE 10 MG TAB PO SCH (09:11)
[2017-09-26] MEDS: AZITHROMYCIN 250 MG TAB PO SCH (09:11)
--- NOTE | 2017-09-26 09:57 | IPNPDOC ---
Date Seen The patient was seen on 09/26/17. Progress Note SUBJECTIVE: Patient is an 82-year-old female with past medical history of: COPD; pulmonary hypertension; CAD; hypertension; hypothyroidism; dyslipidemia; anxiety; hiatal hernia; history of TIA; anemia; memory difficulties; presenting on 09/22/2017 with shortness of breath/COPD exacerbation. Today, she was seen bedside and seemed quite agitated during the interview. She states she feels no better than when she arrived, yet also states the congestion is improving. At present she denies fever, chills, lightheadedness, dizziness, headache, shortness of breath, difficulty breathing, chest pain, abdominal pain, nausea, vomiting. OBJECTIVE PHYSICAL EXAMINATION: VITAL SIGNS: Please see below. GENERAL: Elderly female seen seated on edge of bed in no apparent distress HEENT: Atraumatic, normocephalic; EOMI; neck supple CARDIOVASCULAR: Normal S1/S2 without noted rubs, murmurs, or gallops RESPIRATORY: Coarse breath sounds noted in the bases bilaterally; diminished airflow throughout right middle and upper lobes, and left upper lobe; oxygen provided by nasal cannula ABDOMINAL: Soft, non-tender, non-distended; normoactive bowel sounds EXTREMITIES: Moves all extremities. No noted peripheral edema. NEUROLOGICAL: CN II-XII grossly intact PSYCHOLOGICAL: Irritated mood; displeased affect LABORATORY DATA: Please see below. MICROBIOLOGY: Please see below. IMAGING: Chest X-Ray Impression: Chronic-appearing changes. Cannot exclude very subtle superimposed atelectasis. Left Shoulder X-Ray Impression: Limited single view demonstrates degenerative change with no definite fracture CT Angiogram of the Chest Impression: No CT evidence of pulmonary embolism. DVT prophylaxis ordered?: Yes, Lovenox 30 mg subcutaneous injection every day. ASSESSMENT AND PLAN: This is an 82-year-old female with COPD exacerbation. PROBLEMS: 1. COPD Exacerbation with cough: - Prednisone 30mg by mouth every day - Guaifenesin with codeine 5mL by mouth every 6 hours - Dextromethorphan 30mg by mouth every 12 hours as needed for cough - DuoNeb every 8 hours by nebulizer - Azithromycin 500mg by mouth daily for 7 days - Flonase 0.05% 1 spray each nostril twice a day - Albuterol 2.5mg every 2 hours by inhaler as needed for shortness of breath/ wheezing - Budesonide/Formoterol (Symbicort) 2 puffs inhaled twice a day - Acapella device 2. Pulmonary Hypertension - Oxygen supplementation, titrate to 88-92% SpO2 3. MRSA screen - Awaiting results 4. Memory difficulties - Patient scored 23/30 on MMSE with college level education; interpreted as mild cognitive impairment. 5. Anemia - Iron studies consistent with anemia of chronic disease - Folate, Vit B12 both within normal ranges 6. Anxiety: - Alprazolam 0.25mg by mouth three times per day as needed for anxiety 7. Shoulder pain: - Percocet 5mg/325mg 1 tablet by mouth every 4 hours as needed for moderate pain - Acetaminophen 650mg by mouth every 4 hours as needed for mild pain or fever 8. Nausea: - Ondansetron 4mg IV every 6 hours as needed for nausea or vomiting 9. CAD with stenting - Prescribed Clopidogrel 75 mg by mouth daily, but patient reports not taking at home 10. Hypertension -Prescribed Amlodipine 10mg by mouth daily, but patient reports not taking at home 11. Hypothyroidism - Prescribed levothyroxine 25mcg by mouth daily, but patient reports not taking at home 12. Dyslipidemia - Prescribed atorvastatin 40mg by mouth daily at bedtime, but patient reports not taking at home 13. Hiatal Hernia 14. Hx of TIA DISPOSITION: Admitted to the medical-surgical unit. Continue with current medications for COPD exacerbation, although patient did refuse administration of quite a few of her medications that would alleviate some of her symptomatology. Screen for MRSA. VS, I&O, 24H, Fishbone Vital Signs/I&O Vital Signs Date Time Temp Pulse Resp B/P (MAP) Pulse Ox O2 Delivery O2 Flow Rate FiO2 09/26/17 06:00 97.9 88 19 154/67 (96) 98 Nasal Cannula 2.0 Laboratory Data 24H LABS Laboratory Tests 2 09/26/17 06:20: Nucleated Red Blood Cells % (auto) 0.0, Anion Gap 5L, Glomerular Filtration Rate > 60.0, Blood Urea Nitrogen 22H, Creatinine 0.60, Sodium Level 143, Potassium Level 3.8, Chloride Level 106, Carbon Dioxide Level 32, Calcium Level 8.2L, Magnesium Level 1.9 CBC/BMP Laboratory Tests 09/26/17 06:20 Red Blood Count 3.14 L, Mean Corpuscular Volume 84.4, Mean Corpuscular Hemoglobin 26.4 L, Mean Corpuscular Hemoglobin Concent 31.3 L, Red Cell Distribution Width 19.0 H, Calcium Level 8.2 L Microbiology Microbiology 09/22/17 Blood Culture - Preliminary, Resulted No Growth after 72 hours. All specime... BEBA GIORDANO DO Sep 26, 2017 07:29
[2017-09-26 14:00] VITALS: BP 131/61
[2017-09-26 17:08] VITALS: BP 130/62
[2017-09-27] MEDS: ALBUTEROL SULFATE 2.5 MG/0.5 ML INH NEB SOLN NEB PRN ×2 (03:46→09:16)
[2017-09-27 06:00] VITALS: BP 129/64
[2017-09-27] MEDS: guaiFENesin/CODEINE SYRUP 5 ML UDC PO SCH ×5 (06:00→23:40)
[2017-09-27] MEDS: SYMBICORT 80/4.5MCG INHALER 6GM INH SCH ×2 (07:24→19:42)
[2017-09-27] MEDS: IPRATROPIUM 0.5MG/ALBUTEROL 2.5MG INH SOL UD 3ML (DUONEB)(J7620) NEB SCH ×3 (07:24→22:16)
[2017-09-27 08:29] LABS: MEAN CORPUSCULAR HEMOGLOBIN 26.8 pg (27.0-33.0); MEAN CORPUSCULAR HGB CONC 31.5 g/dl (32.0-36.5); PLATELET COUNT, AUTOMATED 329 10^3/uL (150-450); RED CELL DISTRIBUTION WIDTH 18.7 % (11.5-14.5); WHITE BLOOD COUNT 9.1 10^3/uL (4.0-10.0)
[2017-09-27 09:00] VITALS: BP 163/67
[2017-09-27] MEDS: FLUTICASONE PROP 0.05% NASAL SPRAY 16 GM (FLONASE) SCH ×2 (09:00→21:00)
[2017-09-27] MEDS: SODIUM CHLORIDE NASAL 0.65% SPRAY BTL (OCEAN) SCH ×3 (09:00→21:00)
[2017-09-27] MEDS: FERROUS GLUCONATE 324 MG TAB PO SCH ×2 (09:00→21:00)
[2017-09-27] MEDS: SENOKOT S TAB PO SCH ×2 (09:00→21:00)
[2017-09-27] MEDS: ENOXAPARIN 30 MG/0.3 ML SYR (J1650) SC SCH (09:00)
[2017-09-27 09:02] LABS: ANION GAP 5 MEQ/L (8-16); BLOOD UREA NITROGEN 23 MG/DL (7-18); CALCIUM LEVEL 8.3 MG/DL (8.8-10.2); CARBON DIOXIDE LEVEL 32 MEQ/L (21-32); CHLORIDE LEVEL 105 MEQ/L (98-107); CREATININE FOR GFR 0.63 MG/DL (0.55-1.02); GLOMERULAR FILTRATION RATE > 60.0 (>32); GLUCOSE, FASTING 84 MG/DL (83-110); POTASSIUM SERUM 4.1 MEQ/L (3.5-5.1); SODIUM LEVEL 142 MEQ/L (136-145)
[2017-09-27] MEDS: ASPIRIN 81 MG ENTERIC TAB PO SCH (09:36)
[2017-09-27] MEDS: AZITHROMYCIN 250 MG TAB PO SCH (09:36)
[2017-09-27] MEDS: predniSONE 10 MG TAB PO SCH (09:37)
--- NOTE | 2017-09-27 10:17 | IPNPDOC ---
Date Seen The patient was seen on 09/27/17. Progress Note SUBJECTIVE: Patient is an 82-year-old female with past medical history of: COPD; pulmonary hypertension; CAD; hypertension; hypothyroidism; dyslipidemia; anxiety; hiatal hernia; history of TIA; anemia; memory difficulties; presenting on 09/22/2017 with shortness of breath/COPD exacerbation. Today, she was seen bedside, found lying supine in bed. She continues to state that she feels the "same as she does every morning". She cannot comment on any improvement on her congestion as she "has not started the day yet". She denies lightheadedness, dizziness, headache, chest pain, abdominal pain, nausea, vomiting. OBJECTIVE PHYSICAL EXAMINATION: VITAL SIGNS: Please see below. GENERAL: Elderly female lying supine in bed HEENT: Atraumatic, normocephalic; EOMI. CARDIOVASCULAR: Normal S1/S2 without noted rubs, murmurs, or gallops RESPIRATORY: Coarse breath sounds noted in the bases bilaterally; diminished airflow throughout right middle and upper lobes, and left upper lobe; oxygen provided by nasal cannula ABDOMINAL: Soft, non-tender, non-distended; normoactive bowel sounds EXTREMITIES: Moves all extremities. No noted peripheral edema. NEUROLOGICAL: CN II-XII grossly intact PSYCHOLOGICAL: Confident outlook that her symptoms will resolve upon change in the weather LABORATORY DATA: Please see below. MICROBIOLOGY: Please see below. IMAGING: Chest X-Ray Impression: Chronic-appearing changes. Cannot exclude very subtle superimposed atelectasis. Left Shoulder X-Ray Impression: Limited single view demonstrates degenerative change with no definite fracture CT Angiogram of the Chest Impression: No CT evidence of pulmonary embolism. DVT prophylaxis ordered?: Yes, Lovenox 30 mg subcutaneous injection every day. ASSESSMENT AND PLAN: This is an 82-year-old female with COPD exacerbation. PROBLEMS: 1. COPD Exacerbation with cough: - Prednisone 30mg by mouth every day - Guaifenesin with codeine 5mL by mouth every 6 hours - Dextromethorphan 30mg by mouth every 12 hours as needed for cough - DuoNeb every 8 hours by nebulizer - Azithromycin 500mg by mouth daily for 7 days - Flonase 0.05% 1 spray each nostril twice a day - Albuterol 2.5mg every 2 hours by inhaler as needed for shortness of breath/ wheezing - Budesonide/Formoterol (Symbicort) 2 puffs inhaled twice a day - Acapella device 2. Pulmonary Hypertension - Oxygen supplementation, titrate to 88-92% SpO2 3. MRSA screen - Awaiting results 4. Memory difficulties - Patient scored 23/30 on MMSE with college level education; interpreted as mild cognitive impairment. 5. Anemia - Iron studies consistent with anemia of chronic disease - Folate, Vit B12 both within normal ranges 6. Anxiety: - Alprazolam 0.25mg by mouth three times per day as needed for anxiety 7. Shoulder pain: - Percocet 5mg/325mg 1 tablet by mouth every 4 hours as needed for moderate pain - Acetaminophen 650mg by mouth every 4 hours as needed for mild pain or fever 8. Nausea: - Ondansetron 4mg IV every 6 hours as needed for nausea or vomiting 9. CAD with stenting - Prescribed Clopidogrel 75 mg by mouth daily, but patient reports not taking at home 10. Hypertension -Prescribed Amlodipine 10mg by mouth daily, but patient reports not taking at home 11. Hypothyroidism - Prescribed levothyroxine 25mcg by mouth daily, but patient reports not taking at home 12. Dyslipidemia - Prescribed atorvastatin 40mg by mouth daily at bedtime, but patient reports not taking at home 13. Hiatal Hernia 14. Hx of TIA DISPOSITION: Admitted to the medical-surgical unit. Continue with current medications for COPD exacerbation, although patient continues to refuse administration of medications that would alleviate some of her symptomatology. Screen for MRSA. VS, I&O, 24H, Fishbone Vital Signs/I&O Vital Signs Date Time Temp Pulse Resp B/P (MAP) Pulse Ox O2 Delivery O2 Flow Rate FiO2 09/27/17 06:00 97.4 89 19 129/64 (85) 99 Nasal Cannula 2.0 I&O- Last 24 Hours up to 6 AM 09/28/17 06:00 Intake Total 0 ml Balance 0 ml Laboratory Data 24H LABS Laboratory Tests 2 09/27/17 08:24: Nucleated Red Blood Cells % (auto) 0.0 CBC/BMP Laboratory Tests 09/27/17 08:24 Red Blood Count 3.21 L, Mean Corpuscular Volume 85.0, Mean Corpuscular Hemoglobin 26.8 L, Mean Corpuscular Hemoglobin Concent 31.5 L, Red Cell Distribution Width 18.7 H Microbiology Microbiology 11/17/17 Blood Culture - Preliminary, Resulted No Growth after 72 hours. All specime... 09/26/17 MRSA Screen, Received Pending BEBA GIORDANO DO Sep 27, 2017 08:44
[2017-09-27 14:00] VITALS: BP 138/64
[2017-09-27 22:00] VITALS: BP 148/79
[2017-09-28] MEDS: ALBUTEROL SULFATE 2.5 MG/0.5 ML INH NEB SOLN NEB PRN ×3 (03:44→18:02)
[2017-09-28] MEDS: guaiFENesin/CODEINE SYRUP 5 ML UDC PO SCH ×5 (05:52→23:03)
[2017-09-28 06:00] VITALS: BP 156/70
[2017-09-28 06:34] LABS: MEAN CORPUSCULAR HEMOGLOBIN 26.1 pg (27.0-33.0); MEAN CORPUSCULAR HGB CONC 31.1 g/dl (32.0-36.5); MEAN CORPUSCULAR VOLUME 83.9 fl (80.0-96.0); PLATELET COUNT, AUTOMATED 351 10^3/uL (150-450); RED CELL DISTRIBUTION WIDTH 18.9 % (11.5-14.5); WHITE BLOOD COUNT 7.9 10^3/uL (4.0-10.0)
[2017-09-28 06:49] LABS: ANION GAP 5 MEQ/L (8-16); BLOOD UREA NITROGEN 19 MG/DL (7-18); CALCIUM LEVEL 8.6 MG/DL (8.8-10.2); CARBON DIOXIDE LEVEL 31 MEQ/L (21-32); CHLORIDE LEVEL 106 MEQ/L (98-107); CREATININE FOR GFR 0.53 MG/DL (0.55-1.02); GLOMERULAR FILTRATION RATE > 60.0 (>32); GLUCOSE, FASTING 79 MG/DL (83-110); POTASSIUM SERUM 3.8 MEQ/L (3.5-5.1); SODIUM LEVEL 142 MEQ/L (136-145)
[2017-09-28] MEDS: SYMBICORT 80/4.5MCG INHALER 6GM INH SCH ×2 (07:15→20:34)
[2017-09-28] MEDS: IPRATROPIUM 0.5MG/ALBUTEROL 2.5MG INH SOL UD 3ML (DUONEB)(J7620) NEB SCH ×2 (07:16→15:45)
[2017-09-28] MEDS: ENOXAPARIN 30 MG/0.3 ML SYR (J1650) SC SCH (08:29)
[2017-09-28] MEDS: AZITHROMYCIN 250 MG TAB PO SCH (08:45)
[2017-09-28] MEDS: predniSONE 10 MG TAB PO SCH (08:46)
[2017-09-28] MEDS: ASPIRIN 81 MG ENTERIC TAB PO SCH (08:46)
[2017-09-28] MEDS: FLUTICASONE PROP 0.05% NASAL SPRAY 16 GM (FLONASE) SCH ×2 (08:48→21:00)
[2017-09-28] MEDS: SENOKOT S TAB PO SCH ×2 (08:48→21:00)
[2017-09-28] MEDS: FERROUS GLUCONATE 324 MG TAB PO SCH ×2 (08:48→21:00)
[2017-09-28] MEDS: SODIUM CHLORIDE NASAL 0.65% SPRAY BTL (OCEAN) SCH ×3 (08:49→21:00)
[2017-09-28] MEDS ORDERED: guaiFENesin ER 600 MG TAB PO SCH (09:00)
--- NOTE | 2017-09-28 09:14 | IPNPDOC ---
Date Seen The patient was seen on 09/28/17. Progress Note SUBJECTIVE: Patient is a 82-year-old female with end-stage chronic obstructive pulmonary disease. Patient is evaluated at bedside this morning. Continues to admit to wheezing and right shoulder pain. She feels as though her shoulder pain is due to arthritis. Seems interested in having a heating pad applied to her shoulder. States that her wheeze is so bothersome that it is now keeping her up at night, but also says that she slept quite well last night. OBJECTIVE PHYSICAL EXAMINATION: VITAL SIGNS: Please see below. GENERAL: Elderly female, nasal cannula in place, wearing hospital gown , no audible wheeze appreciated, no acute distress HEENT: Atraumatic, normocephalic, PERRL, EOMI, oral mucosa appears pink and moist, nasal cannula in place CARDIOVASCULAR: Regular rate and rhythm, normal S1 and S2, no murmur, rub, click RESPIRATORY: Crackles appreciated in the left lower lung lobe, poor respiratory effort, lung sounds diminished throughout the rest of the lung carbajal, no appreciable wheeze or rhonchi ABDOMINAL: Soft, non-tender, non-distended, bowel sounds diminished, no organomegaly EXTREMITIES: Chronic discoloration to anterior shins bilaterally without edema, radial and posterior tibial pulses equal and symmetrical, +2 NEUROLOGICAL: CN II-XII grossly intact PSYCHOLOGICAL: Alert and conversant LABORATORY DATA: Please see below. MICROBIOLOGY: Please see below. DVT prophylaxis ordered?: Lovenox 30mg SC daily. ASSESSMENT AND PLAN: This is a 82-year-old female with end-stage chronic obstructive pulmonary disease. PROBLEMS: 1. End-stage COPD: Continue with nasal spray, Prednisone, Robitussin, Flonase, Delsym, Symbicort, Zithromax, Duonebs, and Proventil. Initiated Mucinex as patient continues to report wheeze with congestion. Maintain oxygen therapy with titration order 88-92%. 2. Right shoulder pain: Likely arthritic. Placing a k-pad for symptomatic relief. Also at patient's disposal, as needed, is Percocet and Tylenol. Shoulder x-ray on 09/22/17 was negative for fracture. 3. Anemia: Likely multifactorial. Continue with Ferrous Gluconate twice daily. 4. Pulmonary hypertension: Oxygen therapy order to maintain 88-92% via nasal cannula. 5. Anxiety: Continue with Xanax. DISPOSITION: Admitted to the medical-surgical unit. PT has not cleared patient for safe discharge. Continue with current medication regimen for end-stage COPD. VS, I&O, 24H, Fishbone Vital Signs/I&O Vital Signs Date Time Temp Pulse Resp B/P (MAP) Pulse Ox O2 Delivery O2 Flow Rate FiO2 09/28/17 06:00 98.2 85 20 156/70 (98) 95 Nasal Cannula 2.0 Laboratory Data 24H LABS Laboratory Tests 2 09/28/17 06:18: Nucleated Red Blood Cells % (auto) 0.0, Anion Gap 5L, Glomerular Filtration Rate > 60.0, Blood Urea Nitrogen 19H, Creatinine 0.53L, Sodium Level 142, Potassium Level 3.8, Chloride Level 106, Carbon Dioxide Level 31, Calcium Level 8.6L, Magnesium Level 2.0 CBC/BMP Laboratory Tests 09/28/17 06:18 Red Blood Count 3.22 L, Mean Corpuscular Volume 83.9, Mean Corpuscular Hemoglobin 26.1 L, Mean Corpuscular Hemoglobin Concent 31.1 L, Red Cell Distribution Width 18.9 H, Calcium Level 8.6 L Microbiology Microbiology 09/22/17 Blood Culture - Final, Complete NO GROWTH AFTER 5 DAYS 09/26/17 MRSA Screen - Final, Complete BEBA GIORDANO DO Sep 28, 2017 09:14
[2017-09-28 14:00] VITALS: BP 170/71
[2017-09-28 20:30] VITALS: BP 148/67
[2017-09-28] MEDS: guaiFENesin ER 600 MG TAB PO SCH (21:00)
[2017-09-29 05:40] VITALS: BP 132/70
[2017-09-29 05:54] LABS: MEAN CORPUSCULAR HEMOGLOBIN 26.8 pg (27.0-33.0); MEAN CORPUSCULAR HGB CONC 31.7 g/dl (32.0-36.5); MEAN CORPUSCULAR VOLUME 84.6 fl (80.0-96.0); PLATELET COUNT, AUTOMATED 372 10^3/uL (150-450); WHITE BLOOD COUNT 9.1 10^3/uL (4.0-10.0)
[2017-09-29] MEDS: guaiFENesin/CODEINE SYRUP 5 ML UDC PO SCH ×3 (05:59→18:00)
[2017-09-29 06:18] LABS: ANION GAP 6 MEQ/L (8-16); BLOOD UREA NITROGEN 22 MG/DL (7-18); CALCIUM LEVEL 8.3 MG/DL (8.8-10.2); CARBON DIOXIDE LEVEL 32 MEQ/L (21-32); CHLORIDE LEVEL 104 MEQ/L (98-107); GLOMERULAR FILTRATION RATE > 60.0 (>32); GLUCOSE, FASTING 80 MG/DL (83-110); MAGNESIUM LEVEL 2.2 MG/DL (1.8-2.4); SODIUM LEVEL 142 MEQ/L (136-145)
[2017-09-29 07:08] LABS: RETIC HEMOGLOBIN EQUIVALENT 31.2 pg (24-36); RETICULOCYTE % 1.6 % (0.5-1.5)
[2017-09-29 07:27] LABS: PERCENT SATURATION 7.7 % (13.2-45.0)
[2017-09-29] MEDS: IPRATROPIUM 0.5MG/ALBUTEROL 2.5MG INH SOL UD 3ML (DUONEB)(J7620) NEB SCH ×4 (07:56→23:30)
[2017-09-29] MEDS: SYMBICORT 80/4.5MCG INHALER 6GM INH SCH ×2 (07:56→20:09)
[2017-09-29] MEDS: ASPIRIN 81 MG ENTERIC TAB PO SCH (08:47)
[2017-09-29] MEDS: AZITHROMYCIN 250 MG TAB PO SCH (08:48)
[2017-09-29] MEDS: FERROUS GLUCONATE 324 MG TAB PO SCH ×2 (08:48→20:31)
[2017-09-29] MEDS: SENOKOT S TAB PO SCH ×2 (08:48→20:31)
[2017-09-29] MEDS: predniSONE 10 MG TAB PO SCH (08:48)
[2017-09-29] MEDS: guaiFENesin ER 600 MG TAB PO SCH ×2 (08:48→20:31)
[2017-09-29] MEDS: ENOXAPARIN 30 MG/0.3 ML SYR (J1650) SC SCH (08:49)
[2017-09-29] MEDS: FLUTICASONE PROP 0.05% NASAL SPRAY 16 GM (FLONASE) SCH ×2 (08:49→20:32)
[2017-09-29] MEDS: SODIUM CHLORIDE NASAL 0.65% SPRAY BTL (OCEAN) SCH ×3 (08:49→20:32)
--- NOTE | 2017-09-29 09:35 | IPNPDOC ---
Date Seen The patient was seen on 09/29/17. Progress Note SUBJECTIVE: Patient is a 82-year-old female with end-stage chronic obstructive pulmonary disease. Patient is evaluated at bedside this morning. Patient continues to admit to congestion that she says is worse than her baseline. She understands that her congestion will never be completely resolved , but she would like to see some improvement before discharge. Admits to continued right shoulder pain. States the pain is worsened by abducting the shoulder. Does not think that the heating pad is effective. States that staffing personnel that evaluated her this morning had some quite over-powering perfume. [place] [facility] [place] [facility]. Patient adamantly refuses placement into a long-term facility. She states that she has her own home (that now is shared with her son and his family ). She has a 160-pound dog, Miguelito, that she would like to return to in order to care for him. Denies epistaxis, hematemesis, hemoptysis, melena, hematochezia. OBJECTIVE PHYSICAL EXAMINATION: VITAL SIGNS: Please see below. GENERAL: Elderly female, nasal cannula in place, wearing hospital gown , no audible wheeze appreciated, no acute distress HEENT: Atraumatic, normocephalic, PERRL, EOMI, oral mucosa appears pink and moist, nasal cannula in place CARDIOVASCULAR: Regular rate and rhythm, normal S1 and S2, no murmur, rub, click RESPIRATORY: Diffuse coarse breath sounds appreciated, lung sounds diminished throughout, no appreciable wheeze or rhonchi ABDOMINAL: Soft, non-tender, non-distended, bowel sounds diminished, no organomegaly EXTREMITIES: Chronic discoloration to anterior shins bilaterally without edema, radial and posterior tibial pulses equal and symmetrical, +2 NEUROLOGICAL: CN II-XII grossly intact PSYCHOLOGICAL: Alert and conversant LABORATORY DATA: Please see below. MICROBIOLOGY: Please see below. DVT prophylaxis ordered?: Lovenox 30mg SC daily. ASSESSMENT AND PLAN: This is a 82-year-old female with end-stage chronic obstructive pulmonary disease. PROBLEMS: 1. End-stage COPD: Continue with nasal spray, Prednisone, Robitussin, Flonase, Delsym, Symbicort, Zithromax, Duonebs, and Proventil. Initiated Mucinex as patient continues to report congestion. Will increase to two tabs. Maintain oxygen therapy with titration order 88-92%. 2. Right shoulder pain: Likely arthritic. Placing a k-pad for symptomatic relief. Also at patient's disposal, as needed, is Percocet and Tylenol. Shoulder x-ray on 09/22/17 was negative for fracture. Considering Lidocaine patch. 3. Anemia: Likely multifactorial. On most recent anemia labs (iron, TIBC, transferrin, ferritin), it appears to be iron deficiency anemia. Continue with Ferrous Gluconate twice daily. Colonoscopy in 2011 found a hyperplastic polyp. 4. Pulmonary hypertension: Oxygen therapy order to maintain 88-92% via nasal cannula. 5. Anxiety: Continue with Xanax. DISPOSITION: Admitted to the medical-surgical unit. PT has not cleared patient for safe discharge, recommends one more day of therapy. Continue with current medication regimen for end-stage COPD. VS, I&O, 24H, Fishbone Vital Signs/I&O Vital Signs Date Time Temp Pulse Resp B/P (MAP) Pulse Ox O2 Delivery O2 Flow Rate FiO2 09/29/17 05:40 98.5 81 20 132/70 (90) 95 Nasal Cannula 2.0 Laboratory Data 24H LABS Laboratory Tests 2 09/29/17 05:42: Iron Level 28L, Total Iron Binding Capacity 362, Transferrin % Saturation 7.7L, Ferritin 13 09/29/17 05:45: Reticulocyte # (auto) 51.8, Nucleated Red Blood Cells % (auto) 0.0, Percent Reticulocyte Count 1.6H, Reticulocyte Hemoglobin Equivalent 31.2, Anion Gap 6L, Glomerular Filtration Rate > 60.0, Blood Urea Nitrogen 22H, Creatinine 0.60, Sodium Level 142, Potassium Level 4.0, Chloride Level 104, Carbon Dioxide Level 32, Calcium Level 8.3L, Magnesium Level 2.2 CBC/BMP Laboratory Tests 09/29/17 05:45 Red Blood Count 3.32 L, Mean Corpuscular Volume 84.6, Mean Corpuscular Hemoglobin 26.8 L, Mean Corpuscular Hemoglobin Concent 31.7 L, Red Cell Distribution Width 19.0 H, Calcium Level 8.3 L Microbiology Microbiology 09/22/17 Blood Culture - Final, Complete NO GROWTH AFTER 5 DAYS 09/26/17 MRSA Screen - Final, Complete BEBA GIORDANO DO Sep 29, 2017 09:35
[2017-09-29] MEDS: ALBUTEROL SULFATE 2.5 MG/0.5 ML INH NEB SOLN NEB PRN (11:17)
[2017-09-29 14:00] VITALS: BP 156/71
[2017-09-29 22:00] VITALS: BP 136/63
[2017-09-30] MEDS: ALBUTEROL SULFATE 2.5 MG/0.5 ML INH NEB SOLN NEB PRN ×2 (02:30→10:41)
[2017-09-30] MEDS: guaiFENesin/CODEINE SYRUP 5 ML UDC PO SCH ×4 (05:26→18:28)
[2017-09-30 06:00] VITALS: BP 148/61
[2017-09-30 06:30] LABS: MEAN CORPUSCULAR HEMOGLOBIN 26.3 pg (27.0-33.0); MEAN CORPUSCULAR HGB CONC 31.1 g/dl (32.0-36.5); MEAN CORPUSCULAR VOLUME 84.4 fl (80.0-96.0); PLATELET COUNT, AUTOMATED 399 10^3/uL (150-450); RED CELL DISTRIBUTION WIDTH 18.9 % (11.5-14.5); WHITE BLOOD COUNT 9.8 10^3/uL (4.0-10.0)
[2017-09-30 06:45] LABS: CALCIUM LEVEL 8.3 MG/DL (8.8-10.2); CREATININE FOR GFR 1.02 MG/DL (0.55-1.02); MAGNESIUM LEVEL 2.2 MG/DL (1.8-2.4); POTASSIUM SERUM 4.2 MEQ/L (3.5-5.1)
[2017-09-30] MEDS: SYMBICORT 80/4.5MCG INHALER 6GM INH SCH ×2 (07:38→20:54)
[2017-09-30] MEDS: IPRATROPIUM 0.5MG/ALBUTEROL 2.5MG INH SOL UD 3ML (DUONEB)(J7620) NEB SCH ×3 (07:38→23:32)
[2017-09-30] MEDS: ENOXAPARIN 30 MG/0.3 ML SYR (J1650) SC SCH (09:00)
[2017-09-30] MEDS: FLUTICASONE PROP 0.05% NASAL SPRAY 16 GM (FLONASE) SCH ×2 (09:00→21:00)
[2017-09-30] MEDS: guaiFENesin ER 600 MG TAB PO SCH ×2 (09:00→20:42)
[2017-09-30] MEDS: SODIUM CHLORIDE NASAL 0.65% SPRAY BTL (OCEAN) SCH ×3 (09:00→20:42)
[2017-09-30] MEDS: SENOKOT S TAB PO SCH ×2 (09:00→20:42)
[2017-09-30] MEDS: ASPIRIN 81 MG ENTERIC TAB PO SCH (10:28)
[2017-09-30] MEDS: AZITHROMYCIN 250 MG TAB PO SCH (10:28)
[2017-09-30] MEDS: FERROUS GLUCONATE 324 MG TAB PO SCH ×2 (10:28→20:42)
[2017-09-30] MEDS: predniSONE 10 MG TAB PO SCH (10:28)
--- NOTE | 2017-09-30 10:37 | IPNPDOC ---
Date Seen The patient was seen on 09/30/17. Progress Note SUBJECTIVE: Patient is a 82-year-old female with end-stage chronic obstructive pulmonary disease. Patient is evaluated at bedside this morning. Patient continues to admit to congestion that she says is worse than her baseline. Also admits to continued wheeze. She understands that her congestion will never be completely resolved, but she would like to see some improvement before discharge. Says that she thinks she will be ready for discharge in a couple/several days. Would like to know the status of her breathing. States that she was exposed to Agent [place] and DDT while in [place] and feels that contributed to her current respiratory state. OBJECTIVE PHYSICAL EXAMINATION: VITAL SIGNS: Please see below. GENERAL: Elderly female, nasal cannula in place, wearing hospital gown , no audible wheeze appreciated, no acute distress, nasal cannula in place HEENT: Atraumatic, normocephalic, PERRL, EOMI, oral mucosa appears pink and moist, nasal cannula in place CARDIOVASCULAR: Regular rate and rhythm, normal S1 and S2, no murmur, rub, click RESPIRATORY: Respiratory sounds are diminished throughout, poor respiratory effort, no wheeze, rhonchi, crackles appreciated ABDOMINAL: Soft, non-tender, non-distended, bowel sounds diminished, no organomegaly EXTREMITIES: Chronic discoloration to anterior shins bilaterally without edema, radial and posterior tibial pulses equal and symmetrical, +2 NEUROLOGICAL: CN II-XII grossly intact PSYCHOLOGICAL: Alert and conversant LABORATORY DATA: Please see below. MICROBIOLOGY: Please see below. DVT prophylaxis ordered?: Lovenox 30mg SC daily. ASSESSMENT AND PLAN: This is a 82-year-old female with end-stage chronic obstructive pulmonary disease. PROBLEMS: 1. End-stage COPD: Continue with nasal spray, Prednisone, Robitussin, Flonase, Delsym, Symbicort, Zithromax, Duonebs, and Proventil. Initiated Mucinex as patient continues to report congestion. Will increase to two tabs. Maintain oxygen therapy with titration order 88-92%. Have encouraged continued use of medications as this will improve patient's symptoms. Discussed the overall prognosis of end-stage COPD. 2. Right shoulder pain: Likely arthritic. Placing a k-pad for symptomatic relief. Also at patient's disposal, as needed, is Percocet and Tylenol. Shoulder x-ray on 09/22/17 was negative for fracture. Considering Lidocaine patch. 3. Anemia: Likely multifactorial. On most recent anemia labs (iron, TIBC, transferrin, ferritin), it appears to be iron deficiency anemia. Continue with Ferrous Gluconate twice daily. Colonoscopy in 2011 found a hyperplastic polyp. 4. Pulmonary hypertension: Oxygen therapy order to maintain 88-92% via nasal cannula. 5. Anxiety: Continue with Xanax. DISPOSITION: Admitted to the medical-surgical unit. PT has cleared patient for a safe discharge based on clinical resolve of patient's respiratory symptoms. Patient states that she will be ready for discharge in a couple/several days. VS, I&O, 24H, Fishbone Vital Signs/I&O Vital Signs Date Time Temp Pulse Resp B/P (MAP) Pulse Ox O2 Delivery O2 Flow Rate FiO2 09/30/17 06:00 97.7 82 18 148/61 (90) 98 Nasal Cannula 2.0 I&O- Last 24 Hours up to 6 AM 10/01/17 06:00 Intake Total 300 ml Balance 300 ml Laboratory Data 24H LABS Laboratory Tests 2 09/30/17 06:12: Nucleated Red Blood Cells % (auto) 0.0, Anion Gap 6L, Glomerular Filtration Rate 55.0, Blood Urea Nitrogen 28H, Creatinine 1.02#, Sodium Level 140, Potassium Level 4.2, Chloride Level 104, Carbon Dioxide Level 30, Calcium Level 8.3L, Magnesium Level 2.2 CBC/BMP Laboratory Tests 09/30/17 06:12 Red Blood Count 3.39 L, Mean Corpuscular Volume 84.4, Mean Corpuscular Hemoglobin 26.3 L, Mean Corpuscular Hemoglobin Concent 31.1 L, Red Cell Distribution Width 18.9 H, Calcium Level 8.3 L Microbiology Microbiology 09/22/17 Blood Culture - Final, Complete NO GROWTH AFTER 5 DAYS 09/26/17 MRSA Screen - Final, Complete BEBA GIORDANO DO Sep 30, 2017 10:37
[2017-09-30 14:00] VITALS: BP 148/66
[2017-09-30 22:00] VITALS: BP 140/63
[2017-10-01 06:00] VITALS: BP 142/68
[2017-10-01] MEDS: guaiFENesin/CODEINE SYRUP 5 ML UDC PO SCH ×4 (06:00→17:59)
[2017-10-01] MEDS: ALBUTEROL SULFATE 2.5 MG/0.5 ML INH NEB SOLN NEB PRN ×4 (06:17→23:57)
[2017-10-01 06:35] LABS: MEAN CORPUSCULAR HEMOGLOBIN 26.6 pg (27.0-33.0); MEAN CORPUSCULAR HGB CONC 31.4 g/dl (32.0-36.5); MEAN CORPUSCULAR VOLUME 84.7 fl (80.0-96.0); PLATELET COUNT, AUTOMATED 411 10^3/uL (150-450); RED CELL DISTRIBUTION WIDTH 19.1 % (11.5-14.5); WHITE BLOOD COUNT 13.1 10^3/uL (4.0-10.0)
[2017-10-01 06:52] LABS: ANION GAP 8 MEQ/L (8-16); BLOOD UREA NITROGEN 21 MG/DL (7-18); CALCIUM LEVEL 8.5 MG/DL (8.8-10.2); CARBON DIOXIDE LEVEL 30 MEQ/L (21-32); CHLORIDE LEVEL 103 MEQ/L (98-107); CREATININE FOR GFR 0.61 MG/DL (0.55-1.02); GLOMERULAR FILTRATION RATE > 60.0 (>32); GLUCOSE, FASTING 73 MG/DL (83-110); POTASSIUM SERUM 3.7 MEQ/L (3.5-5.1); SODIUM LEVEL 141 MEQ/L (136-145)
[2017-10-01] MEDS: SYMBICORT 80/4.5MCG INHALER 6GM INH SCH ×2 (07:43→20:34)
[2017-10-01] MEDS: IPRATROPIUM 0.5MG/ALBUTEROL 2.5MG INH SOL UD 3ML (DUONEB)(J7620) NEB SCH (07:44)
[2017-10-01] MEDS: predniSONE 10 MG TAB PO SCH (08:30)
[2017-10-01] MEDS: FLUTICASONE PROP 0.05% NASAL SPRAY 16 GM (FLONASE) SCH ×2 (08:30→22:00)
[2017-10-01] MEDS: AZITHROMYCIN 250 MG TAB PO SCH (08:30)
[2017-10-01] MEDS: ASPIRIN 81 MG ENTERIC TAB PO SCH (08:30)
[2017-10-01] MEDS: SODIUM CHLORIDE NASAL 0.65% SPRAY BTL (OCEAN) SCH ×3 (08:31→22:00)
[2017-10-01] MEDS: ENOXAPARIN 30 MG/0.3 ML SYR (J1650) SC SCH (08:31)
[2017-10-01] MEDS: guaiFENesin ER 600 MG TAB PO SCH ×2 (08:32→21:59)
[2017-10-01] MEDS: FERROUS GLUCONATE 324 MG TAB PO SCH ×2 (08:32→21:59)
[2017-10-01] MEDS: SENOKOT S TAB PO SCH ×2 (08:32→19:36)
--- NOTE | 2017-10-01 11:25 | IPNPDOC ---
Text Note Date of Service The patient was seen on 10/01/17. NOTE SUBJECTIVE: Patient is a 82-year-old female with end-stage chronic obstructive pulmonary disease. Patient is evaluated at bedside this morning. Patient continues to admit to congestion that she says is worse than her baseline. Also admits to continued wheeze. She understands that her congestion will never be completely resolved, but she would like to see some improvement before discharge. Says that she thinks she will be ready for discharge in a couple/several days. OBJECTIVE PHYSICAL EXAMINATION: VITAL SIGNS: Please see below. GENERAL: Elderly female, nasal cannula in place, wearing hospital gown , no audible wheeze appreciated, no acute distress, nasal cannula in place HEENT: Atraumatic, normocephalic, PERRL, EOMI, oral mucosa appears pink and moist, nasal cannula in place CARDIOVASCULAR: Regular rate and rhythm, normal S1 and S2, no murmur, rub, click RESPIRATORY: Respiratory sounds are diminished throughout, poor respiratory effort, no wheeze, rhonchi, crackles appreciated ABDOMINAL: Soft, non-tender, non-distended, bowel sounds diminished, no organomegaly EXTREMITIES: Chronic discoloration to anterior shins bilaterally without edema, radial and posterior tibial pulses equal and symmetrical, +2 NEUROLOGICAL: CN II-XII grossly intact PSYCHOLOGICAL: Alert and conversant LABORATORY DATA: Please see below. MICROBIOLOGY: Please see below. DVT prophylaxis ordered?: Lovenox 30mg SC daily. ASSESSMENT AND PLAN: This is a 82-year-old female with end-stage chronic obstructive pulmonary disease. PROBLEMS: 1. End-stage COPD: Continue with nasal spray, Prednisone, Robitussin, Flonase, Delsym, Symbicort, Zithromax, Duonebs, and Proventil. Initiated Mucinex as patient continues to report congestion. Will increase to two tabs. Maintain oxygen therapy with titration order 88-92%. Have encouraged continued use of medications as this will improve patient's symptoms. Discussed the overall prognosis of end-stage COPD. 2. Right shoulder pain: Likely arthritic. Placing a k-pad for symptomatic relief. Also at patient's disposal, as needed, is Percocet and Tylenol. Shoulder x-ray on 09/22/17 was negative for fracture. 3. Anemia: Likely multifactorial. On most recent anemia labs (iron, TIBC, transferrin, ferritin), it appears to be iron deficiency anemia. Continue with Ferrous Gluconate twice daily. Colonoscopy in 2011 found a hyperplastic polyp. 4. Pulmonary hypertension: Oxygen therapy order to maintain 88-92% via nasal cannula. 5. Anxiety: Continue with Xanax. 6. Chronic respiratory failure with hypoxia and hypercarbia: stable. 7. Dementia: Patient has very poor short term memory . MMSE 22/30. 8. Hypertension, CAD, Hyperlipidemia, Hypothyroid remains stable DISPOSITION: Admitted to the medical-surgical unit. PT has cleared patient for a safe discharge based on clinical resolve of patient's respiratory symptoms. Patient states that she will be ready for discharge in a couple/several days. VS,Fishbone, I+O VS, Fishbone, I+O Laboratory Tests 10/01/17 06:06 Red Blood Count 3.34 L, Mean Corpuscular Volume 84.7, Mean Corpuscular Hemoglobin 26.6 L, Mean Corpuscular Hemoglobin Concent 31.4 L, Red Cell Distribution Width 19.1 H, Calcium Level 8.5 L Vital Signs Date Time Temp Pulse Resp B/P (MAP) Pulse Ox O2 Delivery O2 Flow Rate FiO2 10/01/17 06:00 98.3 93 20 142/68 (92) 97 Nasal Cannula 2.0 I&O- Last 24 Hours up to 6 AM 10/02/17 06:00 Intake Total 360 ml Output Total 0 ml Balance 360 ml GEORGIA TRIMBLE MD Oct 01, 2017 11:25
[2017-10-01 14:00] VITALS: BP 175/76
[2017-10-01 22:00] VITALS: BP 140/63
[2017-10-02] MEDS: guaiFENesin/CODEINE SYRUP 5 ML UDC PO SCH
[2017-10-02] MEDS: ALBUTEROL SULFATE 2.5 MG/0.5 ML INH NEB SOLN NEB PRN ×3 (03:27→13:22)
[2017-10-02 06:00] VITALS: BP 162/72
[2017-10-02 06:49] LABS: MEAN CORPUSCULAR HGB CONC 31.9 g/dl (32.0-36.5); MEAN CORPUSCULAR VOLUME 84.7 fl (80.0-96.0); PLATELET COUNT, AUTOMATED 395 10^3/uL (150-450); RED CELL DISTRIBUTION WIDTH 18.8 % (11.5-14.5); WHITE BLOOD COUNT 14.7 10^3/uL (4.0-10.0)
[2017-10-02 07:08] LABS: ANION GAP 5 MEQ/L (8-16); BLOOD UREA NITROGEN 19 MG/DL (7-18); CALCIUM LEVEL 8.7 MG/DL (8.8-10.2); CARBON DIOXIDE LEVEL 32 MEQ/L (21-32); CHLORIDE LEVEL 105 MEQ/L (98-107); CREATININE FOR GFR 0.58 MG/DL (0.55-1.02); GLOMERULAR FILTRATION RATE > 60.0 (>32); GLUCOSE, FASTING 84 MG/DL (83-110); MAGNESIUM LEVEL 2.1 MG/DL (1.8-2.4); POTASSIUM SERUM 3.7 MEQ/L (3.5-5.1); SODIUM LEVEL 142 MEQ/L (136-145)
[2017-10-02] MEDS: SYMBICORT 80/4.5MCG INHALER 6GM INH SCH (07:59)
[2017-10-02] MEDS: FERROUS GLUCONATE 324 MG TAB PO SCH (08:55)
[2017-10-02] MEDS: AZITHROMYCIN 250 MG TAB PO SCH (08:55)
[2017-10-02] MEDS: FLUTICASONE PROP 0.05% NASAL SPRAY 16 GM (FLONASE) SCH (08:56)
[2017-10-02] MEDS: ASPIRIN 81 MG ENTERIC TAB PO SCH (08:56)
[2017-10-02] MEDS: SODIUM CHLORIDE NASAL 0.65% SPRAY BTL (OCEAN) SCH (08:56)
[2017-10-02] MEDS: SENOKOT S TAB PO SCH (08:57)
[2017-10-02] MEDS: guaiFENesin ER 600 MG TAB PO SCH (08:57)
[2017-10-02] MEDS ORDERED: predniSONE 10 MG TAB PO SCH (09:00)
[2017-10-02] MEDS ORDERED: FERR32TA PO (09:32)
[2017-10-02] MEDS ORDERED: IPRATROPIUM 0.5MG/ALBUTEROL 2.5MG INH SOL UD 3ML (DUONEB)(J7620) NEB ONE (11:15)
--- NOTE | 2017-10-02 12:05 | DS.PDOC ---
Discharge Summary General Date of Admission Sep 22, 2017 at 15:37 Date of Discharge 10/02/2017 Primary Care Physician: CARLOS MARIE M.D. Attending Physician: GEORGIA TRIMBLE MD Discharge Summary PROCEDURES PERFORMED DURING STAY: None. ADMITTING DIAGNOSES: 1. COPD exacerbation 2. Left shoulder pain DISCHARGE DIAGNOSES: 1. COPD exacerbation 2. Left shoulder pain, likely arthritic COMPLICATIONS/CHIEF COMPLAINT: COPD With Exacerbation & Sob At Rest. HISTORY OF PRESENT ILLNESS:This is an 82-year-old female patient, poor historian with an underlying medical history of COPD, anxiety, coronary artery disease on medical record documented with stenting but patient denies any stent which is a bit odd, pulmonary hypertension, transient ischemic attack (TIA), history of malaria, history of dysentery. Patient is a poor historian. Patient represented since this morning 5 am, with acute worsening shortness of breath and also left shoulder pain. Patient reported an increase and no sick contact, no fevers, no chills. Reported cough, baseline ambulating with a walker. Oxygen intermittently 1-4 liters. Reported worsening shortness of breath since this morning, otherwise feels okay. She denies any chest pain, pressure or discomfort , denies any abdominal pain, diarrhea, constipation, nausea, or vomiting. HOSPITAL COURSE: Patient was admitted. Initial labs show normal WBC, chronic normocytic anemia, chest x-ray showed only chronic changes, left shoulder x-ray showed no fracture. Patient was started on Guaifenesin, Azithromycin, Symbicort , in addition to continuing home medications of Albuterol, Ipratropium, Prednisone; home Advair was discontinued during admission. Due to concerns about cognitive/memory impairment, a mini-mental status exam was performed and showed a result of 23/30, indicating mild cognitive impairment. Blood cultures were negative, as was a MRSA screen. Patient had minimal improvement through the duration of admission; she intermittently stated she felt slightly improved , while at other times she stated she felt no better or worse than admission. Patient improved clinically and stated that her congestion had much improved since her admission; stable at discharge. DISCHARGE MEDICATIONS: Please see below. ALLERGIES: Please see below. PHYSICAL EXAMINATION ON DISCHARGE: VITAL SIGNS: Please see below. GENERAL: Elderly female seated on edge of bed, dressed in street clothes awaiting transportation HEENT: Atraumatic, normocephalic, EOMI NECK: Supple CARDIOVASCULAR EXAMINATION: Normal S1/S2 with regular rate; no noted rubs, murmurs, or gallops. RESPIRATORY EXAMINATION: Diffuse coarse lung sounds throughout all lung carbajal bilaterally ABDOMINAL EXAMINATION: Soft, non-tender, non-distended EXTREMITIES: Moves all extremities. No noted peripheral edema SKIN: Warm, dry, intact, without edema NEUROLOGICAL EXAMINATION: CN II-XII grossly intact PSYCHIATRIC EXAMINATION: Alert and conversant LABORATORY DATA: Please see below. IMAGING: Chest X-Ray Impression: Chronic-appearing changes. Cannot exclude very subtle superimposed atelectasis. Left Shoulder X-Ray Impression: Limited single view demonstrates degenerative change with no definite fracture CT Angiogram of the Chest Impression: No CT evidence of pulmonary embolism. PROGNOSIS: Good ACTIVITY: As tolerated. DIET: Regular diet. DISCHARGE PLAN: Problem: Managing health at home Goal: Improve health & wellness Instructions: Follow DC Instruction DISPOSITION: Home. DISCHARGE INSTRUCTIONS: 1. Continue home medications 2. Follow up with primary care provider, Dr. Marie ([facility]) on 10/09/17 at 1PM 3. If symptoms worsen, return to the nearest ED ITEMS TO FOLLOWUP ON ON OUTPATIENT: 1. Persistent non-productive cough 2. Chronic shortness of breath DISCHARGE CONDITION: Stable. TIME SPENT ON DISCHARGE: Greater than 30 minutes. Vital Signs/I&Os Vital Signs Date Time Temp Pulse Resp B/P (MAP) Pulse Ox O2 Delivery O2 Flow Rate FiO2 10/02/17 06:00 97.9 84 20 162/72 (102) 98 Nasal Cannula 2.0 Laboratory Data Labs 24H Laboratory Tests 2 10/02/17 06:40: Nucleated Red Blood Cells % (auto) 0.0, Anion Gap 5L, Glomerular Filtration Rate > 60.0, Blood Urea Nitrogen 19H, Creatinine 0.58, Sodium Level 142, Potassium Level 3.7, Chloride Level 105, Carbon Dioxide Level 32, Calcium Level 8.7L, Magnesium Level 2.1 CBC/BMP Laboratory Tests 10/02/17 06:40 Red Blood Count 3.26 L, Mean Corpuscular Volume 84.7, Mean Corpuscular Hemoglobin 27.0, Mean Corpuscular Hemoglobin Concent 31.9 L, Red Cell Distribution Width 18.8 H, Calcium Level 8.7 L Microbiology Microbiology 09/22/17 Blood Culture - Final, Complete NO GROWTH AFTER 5 DAYS 09/26/17 MRSA Screen - Final, Complete Discharge Medications Scheduled Aspirin (Aspirin 81) 81 Mg Tab, 81 MG PO DAILY, (Reported) Ferrous Gluconate (Ferrous Gluconate) 324 Mg Tab, 324 MG PO DAILY Salmeterol/Fluticasone (Advair Diskus 250-50 Mcg/Dose) 14 Puff/Inhaler Aerp, 1 PUFF INH BID, (Reported) Scheduled PRN Acetaminophen (Tylenol) 325 Mg Tab, 650 MG PO Q4H PRN for PAIN, (Reported) Albuterol Sulfate (Ventolin Hfa) 200 Puff/8 Gm Aers, 2 PUFF INH Q4H PRN for SHORTNESS OF BREATH, (Reported) Albuterol Sulfate (Albuterol Sulfate) 2.5 Mg/3 Ml Nebu, 2.5 MG INH Q4H PRN for SHORTNESS OF BREATH, (Reported) Alprazolam (Alprazolam) 0.25 Mg Tab, 0.25 MG PO TID PRN for ANXIETY, (Reported) Ipratropium [place] (Atrovent Hfa) 17 Mcg/Act Aer, 34 MCG INH Q4H PRN for SHORTNESS OF BREATH, (Reported) Nitroglycerin (Nitrostat) 0.4 Mg Subl, 0.4 MG SL NITRO PRN for CHEST PAIN, ( Reported) Prednisone (Prednisone) 10 Mg Tab, 10 MG PO DAILY PRN for COUGH, (Reported) Allergies Coded Allergies: Levofloxacin (Unverified Allergy, Intermediate, 06/12/17) Procaine (Verified Allergy, Mild, RASH, 06/12/17) BEBA GIORDANO DO Oct 02, 2017 09:59
[2017-10-02 12:20] LABS: FOLATE 6.2 NG/ML (>5.4)
[2017-10-02] MEDS ORDERED: LOPERAMIDE 2 MG CAP PO ONE (12:30)
== END 2017-10-02 15:00 | disposition home or self-care (01) | DRG 191 ==
LOC: M ED 11:32 → EDBD 11:32 → M ED INP 15:37 → EEVIPCON 15:37 → M PCU 21:25 → M MSPAV 09-23 15:08
PROVIDERS: ADMIT Hospitalist; ATTEND Internal Medicine Nephrology
DX: J44.0 Chronic obstructive pulmonary disease with (acute) lower respiratory infection (principal); J96.11 Chronic respiratory failure with hypoxia; J96.12 Chronic respiratory failure with hypercapnia; J44.1 Chronic obstructive pulmonary disease with (acute) exacerbation; J20.8 Acute bronchitis due to other specified organisms; I25.10 Atherosclerotic heart disease of native coronary artery without angina pectoris; R60.0 Localized edema; I27.20 Pulmonary hypertension, unspecified; F41.9 Anxiety disorder, unspecified; K44.9 Diaphragmatic hernia without obstruction or gangrene; E78.5 Hyperlipidemia, unspecified; E03.9 Hypothyroidism, unspecified; R11.0 Nausea; G31.84 Mild cognitive impairment of uncertain or unknown etiology; D63.8 Anemia in other chronic diseases classified elsewhere; I10 Essential (primary) hypertension; M19.011 Primary osteoarthritis, right shoulder; M19.012 Primary osteoarthritis, left shoulder; Z95.5 Presence of coronary angioplasty implant and graft; Z86.73 Personal history of transient ischemic attack (TIA), and cerebral infarction without residual deficits; Z86.13 Personal history of malaria; Z87.891 Personal history of nicotine dependence; Z88.1 Allergy status to other antibiotic agents; Z88.8 Allergy status to other drugs, medicaments and biological substances; Z88.4 Allergy status to anesthetic agent; Z79.82 Long term (current) use of aspirin; Z79.02 Long term (current) use of antithrombotics/antiplatelets; Z79.52 Long term (current) use of systemic steroids; Z79.899 Other long term (current) drug therapy

== ENCOUNTER 2017-11-04 10:50 | Inpatient (IN) | payer MEDICARE, OTHER ==
[2017-11-04 11:24] LABS: BASO % 0.5 % (0.0-1.0); EOS # 0.2 10^3/uL (0.0-0.50); EOS % 3.4 % (0.0-3.0); HEMATOCRIT 29.3 % (36.0-47.0); HEMOGLOBIN 9.3 g/dl (12.0-16.0); IMMATURE GRANULOCYTE % 0.4 % (0-0); LYMPH # 1.2 10^3/uL (1.5-4.5); LYMPH % 21.1 % (24.0-44.0); MEAN CORPUSCULAR HEMOGLOBIN 27.4 pg (27.0-33.0); MEAN CORPUSCULAR HGB CONC 31.7 g/dl (32.0-36.5); MEAN CORPUSCULAR VOLUME 86.2 fl (80.0-96.0); MONO # 0.6 10^3/uL (0.0-0.8); MONO % 10.1 % (0.0-5.0); NEUTROPHILS # 3.6 10^3/uL (1.8-7.7); NEUTROPHILS % 64.5 % (36.0-66.0); PLATELET COUNT, AUTOMATED 319 10^3/uL (150-450); RED CELL DISTRIBUTION WIDTH 17.4 % (11.5-14.5); WHITE BLOOD COUNT 5.6 10^3/uL (4.0-10.0)
[2017-11-04 11:35] LABS: INR 0.92; PROTHROMBIN TIME 12.4 SECONDS (12.4-14.5)
[2017-11-04 11:50] LABS: ALBUMIN 3.4 GM/DL (3.2-5.2); ALBUMIN/GLOBULIN RATIO 0.89 (1.00-1.93); ALKALINE PHOSPHATASE 90 U/L (45-117); ALT/SGPT 17 U/L (12-78); ANION GAP 6 MEQ/L (8-16); AST/SGOT 21 U/L (7-37); BILIRUBIN,DIRECT 0.1 MG/DL (0.0-0.2); BILIRUBIN,TOTAL 0.5 MG/DL (0.2-1.0); BLOOD UREA NITROGEN 24 MG/DL (7-18); CALCIUM LEVEL 8.6 MG/DL (8.8-10.2); CARBON DIOXIDE LEVEL 31 MEQ/L (21-32); CHLORIDE LEVEL 105 MEQ/L (98-107); CPK CREATINE PHOSPHOKINASE 198 U/L (26-192); CREATININE FOR GFR 0.53 MG/DL (0.55-1.02); GLOMERULAR FILTRATION RATE > 60.0 (>32); GLUCOSE, FASTING 75 MG/DL (83-110); POTASSIUM SERUM 3.9 MEQ/L (3.5-5.1); SODIUM LEVEL 142 MEQ/L (136-145); TOTAL PROTEIN 7.2 GM/DL (6.4-8.2); TROPONIN I < 0.02 NG/ML (< 0.10)
[2017-11-04 11:56] LABS: CK-MB VALUE MASS 6.5 NG/ML (0.0-3.6); MB/CK RELATIVE INDEX 3.28 (< OR =4); NT-PRO BNP 497 PG/ML (<450)
[2017-11-04] MEDS ORDERED: ISOVUE-370 76% 100ML VIAL (Q9967) As Ordered (12:27)
[2017-11-04] MEDS: ACETAMINOPHEN TAB 650MG DOSE (2X325MG) PO (15:13)
[2017-11-04] MEDS: IPRATROPIUM 0.5MG/ALBUTEROL 2.5MG INH SOL UD 3ML (DUONEB)(J7620) NEB (15:25)
[2017-11-04] MEDS ORDERED: BISACODYL 5 MG TAB PO (16:30)
[2017-11-04] MEDS ORDERED: NITROGLYCERIN 0.4 MG SUBL TABLET SL (16:30)
[2017-11-04] MEDS ORDERED: ACETAMINOPHEN TAB 650MG DOSE (2X325MG) PO (16:30)
[2017-11-04] MEDS ORDERED: ONDANSETRON 4MG/2ML VIAL (J2405) IV (16:30)
[2017-11-04] MEDS: methylPREDNISolone INJ 125 MG/2 ML VIAL (J2930) IV (19:33)
[2017-11-04] MEDS: ADVAIR HFA 115/21MCG INHALER INH (19:49)
[2017-11-04] MEDS: DOXYCYCLINE HYCLATE 100 MG TAB PO (21:08)
[2017-11-04] MEDS: FUROSEMIDE 20 MG/2 ML VIAL (J1940) IV (23:04)
[2017-11-05] MEDS: IPRATROPIUM 0.5MG/ALBUTEROL 2.5MG INH SOL UD 3ML (DUONEB)(J7620) NEB ×6 (00:19→22:02)
[2017-11-05] MEDS: methylPREDNISolone INJ 125 MG/2 ML VIAL (J2930) IV ×2 (06:00→18:33)
[2017-11-05 06:18] LABS: HEMATOCRIT 28.7 % (36.0-47.0); HEMOGLOBIN 9.3 g/dl (12.0-16.0); MEAN CORPUSCULAR HEMOGLOBIN 27.3 pg (27.0-33.0); MEAN CORPUSCULAR HGB CONC 32.4 g/dl (32.0-36.5); MEAN CORPUSCULAR VOLUME 84.2 fl (80.0-96.0); PLATELET COUNT, AUTOMATED 327 10^3/uL (150-450); RED BLOOD COUNT 3.41 10^6/uL (4.00-5.40); RED CELL DISTRIBUTION WIDTH 17.3 % (11.5-14.5)
[2017-11-05 06:31] LABS: ANION GAP 7 MEQ/L (8-16); BLOOD UREA NITROGEN 20 MG/DL (7-18); CALCIUM LEVEL 8.8 MG/DL (8.8-10.2); CARBON DIOXIDE LEVEL 32 MEQ/L (21-32); CHLORIDE LEVEL 102 MEQ/L (98-107); CREATININE FOR GFR 0.63 MG/DL (0.55-1.02); GLOMERULAR FILTRATION RATE > 60.0 (>32); GLUCOSE, FASTING 147 MG/DL (83-110); POTASSIUM SERUM 3.9 MEQ/L (3.5-5.1); SODIUM LEVEL 141 MEQ/L (136-145)
[2017-11-05] MEDS: ADVAIR HFA 115/21MCG INHALER INH ×2 (07:58→20:00)
[2017-11-05] MEDS: ASPIRIN 81 MG ENTERIC TAB PO ×2 (09:50→09:51)
[2017-11-05] MEDS: DOXYCYCLINE HYCLATE 100 MG TAB PO ×2 (09:50→20:51)
[2017-11-05] MEDS: ENOXAPARIN 40 MG/0.4 ML SYRINGE (J1650) SC (09:50)
[2017-11-05] MEDS: guaiFENesin ER 600 MG TAB PO ×2 (09:50→20:51)
[2017-11-05] MEDS: CALCIUM/VITAMIN D 500 MG TAB PO (09:50)
[2017-11-06] MEDS: methylPREDNISolone INJ 125 MG/2 ML VIAL (J2930) IV ×2 (06:01→14:29)
[2017-11-06 06:48] LABS: HEMATOCRIT 29.3 % (36.0-47.0); HEMOGLOBIN 9.3 g/dl (12.0-16.0); MEAN CORPUSCULAR HEMOGLOBIN 26.9 pg (27.0-33.0); MEAN CORPUSCULAR HGB CONC 31.7 g/dl (32.0-36.5); MEAN CORPUSCULAR VOLUME 84.7 fl (80.0-96.0); PLATELET COUNT, AUTOMATED 320 10^3/uL (150-450); RED BLOOD COUNT 3.46 10^6/uL (4.00-5.40); RED CELL DISTRIBUTION WIDTH 17.5 % (11.5-14.5); WHITE BLOOD COUNT 7.3 10^3/uL (4.0-10.0)
[2017-11-06 07:11] LABS: ANION GAP 5 MEQ/L (8-16); BLOOD UREA NITROGEN 25 MG/DL (7-18); CARBON DIOXIDE LEVEL 29 MEQ/L (21-32); CHLORIDE LEVEL 105 MEQ/L (98-107); CREATININE FOR GFR 0.69 MG/DL (0.55-1.02); GLOMERULAR FILTRATION RATE > 60.0 (>32); GLUCOSE, FASTING 111 MG/DL (83-110); POTASSIUM SERUM 3.9 MEQ/L (3.5-5.1); SODIUM LEVEL 139 MEQ/L (136-145)
[2017-11-06] MEDS: IPRATROPIUM 0.5MG/ALBUTEROL 2.5MG INH SOL UD 3ML (DUONEB)(J7620) NEB ×4 (08:28→19:39)
[2017-11-06] MEDS: ADVAIR HFA 115/21MCG INHALER INH ×2 (08:28→19:39)
[2017-11-06] MEDS: ENOXAPARIN 40 MG/0.4 ML SYRINGE (J1650) SC (09:00)
[2017-11-06] MEDS: DOXYCYCLINE HYCLATE 100 MG TAB PO ×2 (09:56→21:17)
[2017-11-06] MEDS: CALCIUM/VITAMIN D 500 MG TAB PO (09:56)
[2017-11-06] MEDS: ALPRAZolam 0.25 MG TAB PO (09:56)
[2017-11-06] MEDS: guaiFENesin ER 600 MG TAB PO ×2 (09:56→21:17)
[2017-11-06] MEDS: ASPIRIN 81 MG ENTERIC TAB PO (09:56)
[2017-11-06] MEDS: FUROSEMIDE 40 MG/4 ML VIAL (J1940) IV (14:29)
[2017-11-07] MEDS: methylPREDNISolone INJ 40 MG/1 ML VIAL (J2920) IV ×2 (02:27→14:51)
[2017-11-07] MEDS: IPRATROPIUM 0.5MG/ALBUTEROL 2.5MG INH SOL UD 3ML (DUONEB)(J7620) NEB ×7 (04:00→22:00)
[2017-11-07 07:24] LABS: HEMATOCRIT 30.2 % (36.0-47.0); HEMOGLOBIN 9.6 g/dl (12.0-16.0); MEAN CORPUSCULAR HEMOGLOBIN 27.2 pg (27.0-33.0); MEAN CORPUSCULAR HGB CONC 31.8 g/dl (32.0-36.5); MEAN CORPUSCULAR VOLUME 85.6 fl (80.0-96.0); PLATELET COUNT, AUTOMATED 364 10^3/uL (150-450); RED BLOOD COUNT 3.53 10^6/uL (4.00-5.40); RED CELL DISTRIBUTION WIDTH 17.8 % (11.5-14.5); WHITE BLOOD COUNT 9.1 10^3/uL (4.0-10.0)
[2017-11-07 07:51] LABS: ANION GAP 9 MEQ/L (8-16); BLOOD UREA NITROGEN 33 MG/DL (7-18); CALCIUM LEVEL 8.9 MG/DL (8.8-10.2); CARBON DIOXIDE LEVEL 29 MEQ/L (21-32); CHLORIDE LEVEL 103 MEQ/L (98-107); CREATININE FOR GFR 0.77 MG/DL (0.55-1.02); GLOMERULAR FILTRATION RATE > 60.0 (>32); GLUCOSE, FASTING 137 MG/DL (83-110); POTASSIUM SERUM 4.1 MEQ/L (3.5-5.1); SODIUM LEVEL 141 MEQ/L (136-145)
[2017-11-07] MEDS: ADVAIR HFA 115/21MCG INHALER INH ×2 (08:05→19:03)
[2017-11-07] MEDS: ENOXAPARIN 40 MG/0.4 ML SYRINGE (J1650) SC ×2 (09:00→09:59)
[2017-11-07] MEDS: CALCIUM/VITAMIN D 500 MG TAB PO (09:59)
[2017-11-07] MEDS: DOXYCYCLINE HYCLATE 100 MG TAB PO (09:59)
[2017-11-07] MEDS: ASPIRIN 81 MG ENTERIC TAB PO (09:59)
[2017-11-07] MEDS: guaiFENesin ER 600 MG TAB PO ×3 (09:59→20:54)
[2017-11-07] MEDS: ACETYLCYSTEINE 20% 4 ML VIAL (200MG/ML) INH ×2 (11:38→19:03)
[2017-11-08] MEDS: methylPREDNISolone INJ 40 MG/1 ML VIAL (J2920) IV ×2 (02:16→13:38)
[2017-11-08] MEDS: IPRATROPIUM 0.5MG/ALBUTEROL 2.5MG INH SOL UD 3ML (DUONEB)(J7620) NEB ×8 (03:42→23:12)
[2017-11-08 07:01] LABS: HEMOGLOBIN 9.7 g/dl (12.0-16.0); MEAN CORPUSCULAR HEMOGLOBIN 26.9 pg (27.0-33.0); MEAN CORPUSCULAR HGB CONC 31.3 g/dl (32.0-36.5); MEAN CORPUSCULAR VOLUME 86.1 fl (80.0-96.0); PLATELET COUNT, AUTOMATED 370 10^3/uL (150-450); RED CELL DISTRIBUTION WIDTH 17.8 % (11.5-14.5); WHITE BLOOD COUNT 9.8 10^3/uL (4.0-10.0)
[2017-11-08 07:22] LABS: ANION GAP 7 MEQ/L (8-16); BLOOD UREA NITROGEN 31 MG/DL (7-18); CALCIUM LEVEL 8.7 MG/DL (8.8-10.2); CARBON DIOXIDE LEVEL 30 MEQ/L (21-32); CHLORIDE LEVEL 103 MEQ/L (98-107); CREATININE FOR GFR 0.67 MG/DL (0.55-1.02); GLOMERULAR FILTRATION RATE > 60.0 (>32); GLUCOSE, FASTING 129 MG/DL (83-110); POTASSIUM SERUM 4.5 MEQ/L (3.5-5.1); SODIUM LEVEL 140 MEQ/L (136-145)
[2017-11-08] MEDS: ADVAIR HFA 115/21MCG INHALER INH ×2 (08:35→20:14)
[2017-11-08] MEDS: ACETYLCYSTEINE 20% 4 ML VIAL (200MG/ML) INH ×2 (08:36→20:14)
[2017-11-08] MEDS: ENOXAPARIN 40 MG/0.4 ML SYRINGE (J1650) SC (09:00)
[2017-11-08] MEDS: CALCIUM/VITAMIN D 500 MG TAB PO (09:04)
[2017-11-08] MEDS: guaiFENesin ER 600 MG TAB PO ×2 (09:04→20:32)
[2017-11-08] MEDS: ASPIRIN 81 MG ENTERIC TAB PO (09:04)
[2017-11-09] MEDS: IPRATROPIUM 0.5MG/ALBUTEROL 2.5MG INH SOL UD 3ML (DUONEB)(J7620) NEB ×7 (01:21→22:13)
[2017-11-09] MEDS: methylPREDNISolone INJ 40 MG/1 ML VIAL (J2920) IV ×2 (01:46→14:01)
[2017-11-09 06:49] LABS: HEMATOCRIT 31.2 % (36.0-47.0); MEAN CORPUSCULAR HEMOGLOBIN 27.5 pg (27.0-33.0); MEAN CORPUSCULAR HGB CONC 32.1 g/dl (32.0-36.5); MEAN CORPUSCULAR VOLUME 85.7 fl (80.0-96.0); PLATELET COUNT, AUTOMATED 358 10^3/uL (150-450); RED BLOOD COUNT 3.64 10^6/uL (4.00-5.40); RED CELL DISTRIBUTION WIDTH 17.5 % (11.5-14.5); WHITE BLOOD COUNT 8.7 10^3/uL (4.0-10.0)
[2017-11-09 07:10] LABS: ANION GAP 8 MEQ/L (8-16); BLOOD UREA NITROGEN 28 MG/DL (7-18); CALCIUM LEVEL 8.6 MG/DL (8.8-10.2); CARBON DIOXIDE LEVEL 29 MEQ/L (21-32); CHLORIDE LEVEL 103 MEQ/L (98-107); CREATININE FOR GFR 0.73 MG/DL (0.55-1.02); GLOMERULAR FILTRATION RATE > 60.0 (>32); GLUCOSE, FASTING 164 MG/DL (83-110); POTASSIUM SERUM 4.1 MEQ/L (3.5-5.1); SODIUM LEVEL 140 MEQ/L (136-145)
[2017-11-09] MEDS: ACETYLCYSTEINE 20% 4 ML VIAL (200MG/ML) INH ×3 (08:00→20:00)
[2017-11-09] MEDS: ADVAIR HFA 115/21MCG INHALER INH ×2 (08:21→20:22)
[2017-11-09] MEDS: ASPIRIN 81 MG ENTERIC TAB PO (08:54)
[2017-11-09] MEDS: CALCIUM/VITAMIN D 500 MG TAB PO (08:54)
[2017-11-09] MEDS: ENOXAPARIN 40 MG/0.4 ML SYRINGE (J1650) SC (08:54)
[2017-11-09] MEDS: guaiFENesin ER 600 MG TAB PO ×2 (08:54→20:15)
[2017-11-10] MEDS: methylPREDNISolone INJ 40 MG/1 ML VIAL (J2920) IV ×2 (02:43→14:00)
[2017-11-10] MEDS: IPRATROPIUM 0.5MG/ALBUTEROL 2.5MG INH SOL UD 3ML (DUONEB)(J7620) NEB ×5 (04:16→17:32)
[2017-11-10] MEDS: ACETYLCYSTEINE 20% 4 ML VIAL (200MG/ML) INH (08:00)
[2017-11-10] MEDS: ADVAIR HFA 115/21MCG INHALER INH (08:18)
[2017-11-10] MEDS: CALCIUM/VITAMIN D 500 MG TAB PO (08:22)
[2017-11-10] MEDS: guaiFENesin ER 600 MG TAB PO ×2 (08:23→08:25)
[2017-11-10] MEDS: ASPIRIN 81 MG ENTERIC TAB PO (08:23)
== END 2017-11-10 17:54 | disposition home or self-care (01) | DRG 204 ==
LOC: M ED 10:50 → M ED INP 16:28 → M MSPAV 18:58
DX: R06.03 Acute respiratory distress (principal); I50.32 Chronic diastolic (congestive) heart failure; J44.1 Chronic obstructive pulmonary disease with (acute) exacerbation; J98.11 Atelectasis; F41.9 Anxiety disorder, unspecified; D64.9 Anemia, unspecified; I25.10 Atherosclerotic heart disease of native coronary artery without angina pectoris; I27.29 Other secondary pulmonary hypertension; E02 Subclinical iodine-deficiency hypothyroidism; Z86.73 Personal history of transient ischemic attack (TIA), and cerebral infarction without residual deficits; Z79.82 Long term (current) use of aspirin; Z79.899 Other long term (current) drug therapy; Z88.1 Allergy status to other antibiotic agents; Z88.8 Allergy status to other drugs, medicaments and biological substances; Z95.5 Presence of coronary angioplasty implant and graft; Z99.81 Dependence on supplemental oxygen; Z79.02 Long term (current) use of antithrombotics/antiplatelets; Z90.5 Acquired absence of kidney; Z86.13 Personal history of malaria; Z87.891 Personal history of nicotine dependence

== ENCOUNTER 2017-12-12 23:07 | Inpatient (IN) | payer MEDICARE, OTHER ==
[2017-12-12] MEDS: methylPREDNISolone INJ 125 MG/2 ML VIAL (J2930) IV (23:30)
[2017-12-12 23:45] LABS: BASO % 0.3 % (0.0-1.0); EOS # 0.2 10^3/uL (0.0-0.50); EOS % 1.7 % (0.0-3.0); HEMATOCRIT 33.8 % (36.0-47.0); HEMOGLOBIN 10.6 g/dl (12.0-16.0); IMMATURE GRANULOCYTE % 0.3 % (0-0); LYMPH # 1.7 10^3/uL (1.5-4.5); LYMPH % 19.9 % (24.0-44.0); MEAN CORPUSCULAR HEMOGLOBIN 27.5 pg (27.0-33.0); MEAN CORPUSCULAR HGB CONC 31.4 g/dl (32.0-36.5); MEAN CORPUSCULAR VOLUME 87.6 fl (80.0-96.0); MONO # 0.7 10^3/uL (0.0-0.8); MONO % 7.9 % (0.0-5.0); NEUTROPHILS # 6.1 10^3/uL (1.8-7.7); NEUTROPHILS % 69.9 % (36.0-66.0); PLATELET COUNT, AUTOMATED 353 10^3/uL (150-450); RED BLOOD COUNT 3.86 10^6/uL (4.00-5.40); RED CELL DISTRIBUTION WIDTH 16.6 % (11.5-14.5); WHITE BLOOD COUNT 8.7 10^3/uL (4.0-10.0)
[2017-12-12] MEDS: IPRATROPIUM 0.5MG/ALBUTEROL 2.5MG INH SOL UD 3ML (DUONEB)(J7620) NEB ×2 (23:57)
[2017-12-13 00:01] LABS: ABG BASE EXCESS 2.7 (-2.0-2.0); ABG O2 SATURATION 94.9 % (95.0-99.0); ABG PARTIAL PRESSURE CO2 46.3 mmHg (35.0-45.0); ABG STANDARD HCO3 26.8 MEQ/L (22.0-26.0); ABG TOTAL CO2 29.4 MEQ/L (23.0-31.0); ABG pH (ARTERIAL) 7.399 UNITS (7.350-7.450)
[2017-12-13] MEDS: IPRATROPIUM 0.5MG/ALBUTEROL 2.5MG INH SOL UD 3ML (DUONEB)(J7620) NEB ×4 (00:02→20:00)
[2017-12-13 00:09] LABS: LACTIC ACID SEPSIS PROTOCOL 0.9 MMOL/L (0.4-2.0)
[2017-12-13 00:10] LABS: ANION GAP 6 MEQ/L (8-16); BLOOD UREA NITROGEN 20 MG/DL (7-18); CALCIUM LEVEL 9.1 MG/DL (8.8-10.2); CARBON DIOXIDE LEVEL 33 MEQ/L (21-32); CHLORIDE LEVEL 103 MEQ/L (98-107); CK-MB VALUE MASS 5.7 NG/ML (0.0-3.6); CPK CREATINE PHOSPHOKINASE 140 U/L (26-192); GLOMERULAR FILTRATION RATE > 60.0 (>32); GLUCOSE, FASTING 142 MG/DL (70-100); MB/CK RELATIVE INDEX 4.07 (< OR =4); NT-PRO BNP 311 PG/ML (<450); POTASSIUM SERUM 3.9 MEQ/L (3.5-5.1); SODIUM LEVEL 142 MEQ/L (136-145); TROPONIN I < 0.02 NG/ML (< 0.10)
[2017-12-13 00:17] LABS: INFLUENZA A AMPLIFICATION NEGATIVE (NEGATIVE); INFLUENZA B AMPLIFICATION NEGATIVE (NEGATIVE)
[2017-12-13] MEDS: AZITHROMYCIN 250 MG TAB PO ×2 (01:45→11:21)
[2017-12-13] MEDS: CEFTRIAXONE SOD 1 GM in APPROPRIATE DILUENT 1 EA IV (01:45)
[2017-12-13] MEDS ORDERED: NITROGLYCERIN 0.4 MG SUBL TABLET SL (04:15)
[2017-12-13] MEDS ORDERED: CETIRIZINE (ZyrTEC) 10 MG TAB PO (04:15)
[2017-12-13 07:50] LABS: HEMOGLOBIN 9.9 g/dl (12.0-16.0); MEAN CORPUSCULAR HEMOGLOBIN 27.3 pg (27.0-33.0); MEAN CORPUSCULAR HGB CONC 31.9 g/dl (32.0-36.5); MEAN CORPUSCULAR VOLUME 85.4 fl (80.0-96.0); PLATELET COUNT, AUTOMATED 320 10^3/uL (150-450); RED BLOOD COUNT 3.63 10^6/uL (4.00-5.40); RED CELL DISTRIBUTION WIDTH 16.4 % (11.5-14.5); WHITE BLOOD COUNT 5.2 10^3/uL (4.0-10.0)
[2017-12-13 08:20] LABS: ANION GAP 7 MEQ/L (8-16); BLOOD UREA NITROGEN 20 MG/DL (7-18); CALCIUM LEVEL 8.9 MG/DL (8.8-10.2); CARBON DIOXIDE LEVEL 29 MEQ/L (21-32); CHLORIDE LEVEL 103 MEQ/L (98-107); CREATININE FOR GFR 0.58 MG/DL (0.55-1.30); GLOMERULAR FILTRATION RATE > 60.0 (>32); GLUCOSE, FASTING 184 MG/DL (70-100); POTASSIUM SERUM 3.9 MEQ/L (3.5-5.1); SODIUM LEVEL 139 MEQ/L (136-145)
[2017-12-13] MEDS: CALCIUM/VITAMIN D 500 MG TAB PO (10:09)
[2017-12-13] MEDS: methylPREDNISolone INJ 40 MG/1 ML VIAL (J2920) IV ×2 (10:09→16:16)
[2017-12-13] MEDS: ASPIRIN 81 MG ENTERIC TAB PO (10:09)
[2017-12-13] MEDS: guaiFENesin ER 600 MG TAB PO ×2 (10:10→21:27)
[2017-12-13] MEDS: FUROSEMIDE 20 MG/2 ML VIAL (J1940) IV ×2 (10:10→21:26)
[2017-12-14] MEDS: methylPREDNISolone INJ 40 MG/1 ML VIAL (J2920) IV ×4 (00:17→23:36)
[2017-12-14] MEDS: IPRATROPIUM 0.5MG/ALBUTEROL 2.5MG INH SOL UD 3ML (DUONEB)(J7620) NEB ×6 (02:00→22:00)
[2017-12-14] MEDS: CEFTRIAXONE SOD 1 GM in APPROPRIATE DILUENT 1 EA IV (02:03)
[2017-12-14] MEDS: OMEPRAZOLE 20 MG CAP PO (02:48)
[2017-12-14 07:20] LABS: HEMATOCRIT 30.1 % (36.0-47.0); HEMOGLOBIN 9.8 g/dl (12.0-16.0); MEAN CORPUSCULAR HEMOGLOBIN 27.8 pg (27.0-33.0); MEAN CORPUSCULAR HGB CONC 32.6 g/dl (32.0-36.5); MEAN CORPUSCULAR VOLUME 85.5 fl (80.0-96.0); PLATELET COUNT, AUTOMATED 294 10^3/uL (150-450); RED BLOOD COUNT 3.52 10^6/uL (4.00-5.40); RED CELL DISTRIBUTION WIDTH 16.5 % (11.5-14.5); WHITE BLOOD COUNT 9.8 10^3/uL (4.0-10.0)
[2017-12-14] MEDS: FUROSEMIDE 20 MG/2 ML VIAL (J1940) IV ×2 (07:32→09:47)
[2017-12-14 07:42] LABS: ANION GAP 7 MEQ/L (8-16); BLOOD UREA NITROGEN 26 MG/DL (7-18); CALCIUM LEVEL 8.9 MG/DL (8.8-10.2); CARBON DIOXIDE LEVEL 32 MEQ/L (21-32); CHLORIDE LEVEL 101 MEQ/L (98-107); CREATININE FOR GFR 0.79 MG/DL (0.55-1.30); GLOMERULAR FILTRATION RATE > 60.0 (>32); GLUCOSE, FASTING 143 MG/DL (70-100); MAGNESIUM LEVEL 2.1 MG/DL (1.8-2.4); POTASSIUM SERUM 3.9 MEQ/L (3.5-5.1); SODIUM LEVEL 140 MEQ/L (136-145)
[2017-12-14 07:56] LABS: TROPONIN I < 0.02 NG/ML (< 0.10)
[2017-12-14 07:57] LABS: CK-MB VALUE MASS 5.6 NG/ML (0.0-3.6); CPK CREATINE PHOSPHOKINASE 136 U/L (26-192); MB/CK RELATIVE INDEX 4.11 (< OR =4)
[2017-12-14] MEDS ORDERED: E-Z-GAS II EFFERVESCENT PACKET (SODIUM BICARB./CITRIC ACID/SIMETHICONE) As Ordered (08:29)
[2017-12-14] MEDS ORDERED: E-Z-PAQUE 96% w/w SUSP 176GM BTL As Ordered (08:30)
[2017-12-14] MEDS ORDERED: E-Z-HD 98% w/w 340GM SUSP BTL As Ordered (08:30)
[2017-12-14] MEDS: AZITHROMYCIN 250 MG TAB PO ×2 (09:00→12:55)
[2017-12-14] MEDS: ENOXAPARIN 30 MG/0.3 ML SYR (J1650) SC (09:00)
[2017-12-14] MEDS ORDERED: GI COCKTAIL 50ML BTL(HYOSCYAMINE/MAALOX/LIDOCAINE VISCOUS)(1:3:1) PO (11:30)
[2017-12-14] MEDS: SUCRALFATE SUSP 1GM/10ML UD PO ×3 (11:32→20:03)
[2017-12-14] MEDS: GI COCKTAIL 50ML BTL(HYOSCYAMINE/MAALOX/LIDOCAINE VISCOUS)(1:3:1) PO (11:32)
[2017-12-14] MEDS: NITROGLYCERIN 0.4 MG SUBL TABLET SL (11:33)
[2017-12-14] MEDS: CALCIUM/VITAMIN D 500 MG TAB PO (12:54)
[2017-12-14] MEDS: ASPIRIN 81 MG ENTERIC TAB PO (12:54)
[2017-12-14] MEDS: guaiFENesin ER 600 MG TAB PO ×2 (12:55→20:03)
[2017-12-14] MEDS: ACETAMINOPHEN TAB 650MG DOSE (2X325MG) PO (14:59)
[2017-12-14 15:31] LABS: CPK CREATINE PHOSPHOKINASE 124 U/L (26-192); TROPONIN I < 0.02 NG/ML (< 0.10)
[2017-12-14 15:32] LABS: MB/CK RELATIVE INDEX 3.22 (< OR =4)
[2017-12-14] MEDS: IPRATROPIUM HFA INHALER 12.9 GRAMS (ATROVENT HFA) INH (23:09)
[2017-12-14 23:55] LABS: CPK CREATINE PHOSPHOKINASE 110 U/L (26-192); MB/CK RELATIVE INDEX 2.72 (< OR =4); TROPONIN I < 0.02 NG/ML (< 0.10)
[2017-12-15] MEDS: IPRATROPIUM 0.5MG/ALBUTEROL 2.5MG INH SOL UD 3ML (DUONEB)(J7620) NEB ×6 (01:33→22:31)
[2017-12-15 06:27] LABS: HEMATOCRIT 30.2 % (36.0-47.0); HEMOGLOBIN 9.7 g/dl (12.0-16.0); MEAN CORPUSCULAR HEMOGLOBIN 27.6 pg (27.0-33.0); MEAN CORPUSCULAR HGB CONC 32.1 g/dl (32.0-36.5); MEAN CORPUSCULAR VOLUME 85.8 fl (80.0-96.0); PLATELET COUNT, AUTOMATED 296 10^3/uL (150-450); RED BLOOD COUNT 3.52 10^6/uL (4.00-5.40); WHITE BLOOD COUNT 11.9 10^3/uL (4.0-10.0)
[2017-12-15 06:49] LABS: ANION GAP 7 MEQ/L (8-16); BLOOD UREA NITROGEN 31 MG/DL (7-18); CALCIUM LEVEL 8.7 MG/DL (8.8-10.2); CARBON DIOXIDE LEVEL 32 MEQ/L (21-32); CHLORIDE LEVEL 101 MEQ/L (98-107); CPK CREATINE PHOSPHOKINASE 94 U/L (26-192); CREATININE FOR GFR 0.83 MG/DL (0.55-1.30); GLOMERULAR FILTRATION RATE > 60.0 (>32); GLUCOSE, FASTING 152 MG/DL (70-100); MAGNESIUM LEVEL 2.1 MG/DL (1.8-2.4); POTASSIUM SERUM 3.7 MEQ/L (3.5-5.1); SODIUM LEVEL 140 MEQ/L (136-145); TROPONIN I < 0.02 NG/ML (< 0.10)
[2017-12-15 06:50] LABS: CK-MB VALUE MASS 2.7 NG/ML (0.0-3.6); MB/CK RELATIVE INDEX 2.87 (< OR =4)
[2017-12-15] MEDS ORDERED: E-Z-GAS II EFFERVESCENT PACKET (SODIUM BICARB./CITRIC ACID/SIMETHICONE) As Ordered (07:52)
[2017-12-15] MEDS ORDERED: E-Z-PAQUE 96% w/w SUSP 176GM BTL As Ordered (07:52)
[2017-12-15] MEDS ORDERED: E-Z-HD 98% w/w 340GM SUSP BTL As Ordered (07:53)
[2017-12-15] MEDS: guaiFENesin ER 600 MG TAB PO ×2 (09:00→20:25)
[2017-12-15] MEDS: ENOXAPARIN 30 MG/0.3 ML SYR (J1650) SC (09:00)
[2017-12-15] MEDS: FUROSEMIDE 20 MG TAB PO (09:39)
[2017-12-15] MEDS: AZITHROMYCIN 250 MG TAB PO (09:40)
[2017-12-15] MEDS: SUCRALFATE SUSP 1GM/10ML UD PO ×4 (09:40→20:25)
[2017-12-15] MEDS: ASPIRIN 81 MG ENTERIC TAB PO (09:40)
[2017-12-15] MEDS: methylPREDNISolone INJ 40 MG/1 ML VIAL (J2920) IV ×2 (09:40→16:56)
[2017-12-15] MEDS: CALCIUM/VITAMIN D 500 MG TAB PO (09:40)
[2017-12-16] MEDS: methylPREDNISolone INJ 40 MG/1 ML VIAL (J2920) IV (00:19)
[2017-12-16] MEDS: IPRATROPIUM 0.5MG/ALBUTEROL 2.5MG INH SOL UD 3ML (DUONEB)(J7620) NEB ×5 (02:00→21:14)
[2017-12-16 05:29] LABS: HEMATOCRIT 30.8 % (36.0-47.0); HEMOGLOBIN 9.8 g/dl (12.0-16.0); MEAN CORPUSCULAR HEMOGLOBIN 27.7 pg (27.0-33.0); MEAN CORPUSCULAR HGB CONC 31.8 g/dl (32.0-36.5); PLATELET COUNT, AUTOMATED 274 10^3/uL (150-450); RED BLOOD COUNT 3.54 10^6/uL (4.00-5.40); WHITE BLOOD COUNT 9.6 10^3/uL (4.0-10.0)
[2017-12-16 05:42] LABS: ANION GAP 6 MEQ/L (8-16); BLOOD UREA NITROGEN 29 MG/DL (7-18); CALCIUM LEVEL 8.9 MG/DL (8.8-10.2); CARBON DIOXIDE LEVEL 34 MEQ/L (21-32); CHLORIDE LEVEL 101 MEQ/L (98-107); GLOMERULAR FILTRATION RATE > 60.0 (>32); GLUCOSE, FASTING 166 MG/DL (70-100); MAGNESIUM LEVEL 2.3 MG/DL (1.8-2.4); POTASSIUM SERUM 4.2 MEQ/L (3.5-5.1); SODIUM LEVEL 141 MEQ/L (136-145)
[2017-12-16] MEDS: FUROSEMIDE 20 MG TAB PO (10:04)
[2017-12-16] MEDS: SUCRALFATE SUSP 1GM/10ML UD PO ×4 (10:04→21:00)
[2017-12-16] MEDS: guaiFENesin ER 600 MG TAB PO ×2 (10:04→21:02)
[2017-12-16] MEDS: CALCIUM/VITAMIN D 500 MG TAB PO (10:04)
[2017-12-16] MEDS: AZITHROMYCIN 250 MG TAB PO (10:05)
[2017-12-16] MEDS: predniSONE 20 MG TAB PO (10:10)
[2017-12-17] MEDS: IPRATROPIUM 0.5MG/ALBUTEROL 2.5MG INH SOL UD 3ML (DUONEB)(J7620) NEB ×6 (00:14→20:00)
[2017-12-17 05:42] LABS: HEMATOCRIT 29.5 % (36.0-47.0); HEMOGLOBIN 9.3 g/dl (12.0-16.0); MEAN CORPUSCULAR HGB CONC 31.5 g/dl (32.0-36.5); MEAN CORPUSCULAR VOLUME 85.8 fl (80.0-96.0); PLATELET COUNT, AUTOMATED 264 10^3/uL (150-450); RED BLOOD COUNT 3.44 10^6/uL (4.00-5.40); RED CELL DISTRIBUTION WIDTH 17.2 % (11.5-14.5); WHITE BLOOD COUNT 10.1 10^3/uL (4.0-10.0)
[2017-12-17 05:59] LABS: ANION GAP 5 MEQ/L (8-16); BLOOD UREA NITROGEN 30 MG/DL (7-18); CALCIUM LEVEL 8.3 MG/DL (8.8-10.2); CARBON DIOXIDE LEVEL 33 MEQ/L (21-32); CHLORIDE LEVEL 105 MEQ/L (98-107); CREATININE FOR GFR 0.67 MG/DL (0.55-1.30); GLOMERULAR FILTRATION RATE > 60.0 (>32); GLUCOSE, FASTING 113 MG/DL (70-100); MAGNESIUM LEVEL 2.4 MG/DL (1.8-2.4); POTASSIUM SERUM 3.5 MEQ/L (3.5-5.1); SODIUM LEVEL 143 MEQ/L (136-145)
[2017-12-17] MEDS: SUCRALFATE SUSP 1GM/10ML UD PO ×4 (09:11→21:00)
[2017-12-17] MEDS: FUROSEMIDE 20 MG TAB PO (09:11)
[2017-12-17] MEDS: guaiFENesin ER 600 MG TAB PO ×2 (09:12→21:37)
[2017-12-17] MEDS: predniSONE 20 MG TAB PO (09:34)
[2017-12-17] MEDS: AZITHROMYCIN 250 MG TAB PO (09:34)
[2017-12-17] MEDS: CALCIUM/VITAMIN D 500 MG TAB PO (09:34)
[2017-12-17] MEDS: SLF 3 ML SYR IV ×2 (13:12→21:37)
[2017-12-18] MEDS: IPRATROPIUM 0.5MG/ALBUTEROL 2.5MG INH SOL UD 3ML (DUONEB)(J7620) NEB ×5 (02:00→19:52)
[2017-12-18] MEDS: SLF 3 ML SYR IV ×3 (05:34→20:30)
[2017-12-18] MEDS: SUCRALFATE SUSP 1GM/10ML UD PO ×4 (08:30→20:29)
[2017-12-18] MEDS: FUROSEMIDE 20 MG TAB PO (08:33)
[2017-12-18] MEDS: CALCIUM/VITAMIN D 500 MG TAB PO (08:34)
[2017-12-18] MEDS: guaiFENesin ER 600 MG TAB PO ×3 (08:34→20:29)
[2017-12-18] MEDS: predniSONE 20 MG TAB PO ×2 (08:34→09:13)
[2017-12-18] MEDS: AZITHROMYCIN 250 MG TAB PO ×2 (08:35→09:13)
[2017-12-18] MEDS: ACETAMINOPHEN TAB 650MG DOSE (2X325MG) PO (08:37)
[2017-12-19] MEDS: IPRATROPIUM 0.5MG/ALBUTEROL 2.5MG INH SOL UD 3ML (DUONEB)(J7620) NEB ×5 (02:00→18:10)
[2017-12-19] MEDS: SLF 3 ML SYR IV ×3 (05:24→20:15)
[2017-12-19] MEDS: predniSONE 20 MG TAB PO (08:11)
[2017-12-19] MEDS: SUCRALFATE SUSP 1GM/10ML UD PO ×4 (08:12→20:02)
[2017-12-19] MEDS: FUROSEMIDE 20 MG TAB PO (08:12)
[2017-12-19] MEDS: CALCIUM/VITAMIN D 500 MG TAB PO (08:12)
[2017-12-19] MEDS: guaiFENesin ER 600 MG TAB PO ×2 (08:12→20:13)
[2017-12-19] MEDS: AZITHROMYCIN 250 MG TAB PO (08:12)
[2017-12-19] MEDS: ACETAMINOPHEN TAB 650MG DOSE (2X325MG) PO (20:57)
[2017-12-20] MEDS: IPRATROPIUM 0.5MG/ALBUTEROL 2.5MG INH SOL UD 3ML (DUONEB)(J7620) NEB ×4 (01:25→21:49)
[2017-12-20] MEDS: SUCRALFATE SUSP 1GM/10ML UD PO ×4 (08:25→20:56)
[2017-12-20] MEDS: AZITHROMYCIN 250 MG TAB PO (09:26)
[2017-12-20] MEDS: CALCIUM/VITAMIN D 500 MG TAB PO (09:26)
[2017-12-20] MEDS: predniSONE 20 MG TAB PO (09:26)
[2017-12-20] MEDS: FUROSEMIDE 20 MG TAB PO (09:26)
[2017-12-20] MEDS: guaiFENesin ER 600 MG TAB PO ×2 (09:27→20:56)
[2017-12-20] MEDS: ACETAMINOPHEN TAB 650MG DOSE (2X325MG) PO (10:09)
[2017-12-21] MEDS ORDERED: ASPIRIN 81 MG ENTERIC TAB As Ordered (01:20)
[2017-12-21] MEDS: ASPIRIN 81 MG CHEW TABLET PO (01:29)
[2017-12-21] MEDS: IPRATROPIUM 0.5MG/ALBUTEROL 2.5MG INH SOL UD 3ML (DUONEB)(J7620) NEB ×6 (02:00→21:14)
[2017-12-21 02:18] LABS: ANION GAP 5 MEQ/L (8-16); BLOOD UREA NITROGEN 28 MG/DL (7-18); CALCIUM LEVEL 8.9 MG/DL (8.8-10.2); CARBON DIOXIDE LEVEL 31 MEQ/L (21-32); CHLORIDE LEVEL 104 MEQ/L (98-107); CK-MB VALUE MASS 2.6 NG/ML (0.0-3.6); CPK CREATINE PHOSPHOKINASE 51 U/L (26-192); CREATININE FOR GFR 0.62 MG/DL (0.55-1.30); GLOMERULAR FILTRATION RATE > 60.0 (>32); GLUCOSE, FASTING 63 MG/DL (70-100); MB/CK RELATIVE INDEX 5.09 (< OR =4); POTASSIUM SERUM 4.3 MEQ/L (3.5-5.1); SODIUM LEVEL 140 MEQ/L (136-145); TROPONIN I < 0.02 NG/ML (< 0.10)
[2017-12-21] MEDS: SUCRALFATE SUSP 1GM/10ML UD PO ×4 (07:54→21:00)
[2017-12-21 08:13] LABS: CPK CREATINE PHOSPHOKINASE 47 U/L (26-192); TROPONIN I < 0.02 NG/ML (< 0.10)
[2017-12-21 08:14] LABS: CK-MB VALUE MASS 2.7 NG/ML (0.0-3.6); MB/CK RELATIVE INDEX 5.74 (< OR =4)
[2017-12-21] MEDS: predniSONE 20 MG TAB PO (09:49)
[2017-12-21] MEDS: guaiFENesin ER 600 MG TAB PO ×2 (09:49→21:00)
[2017-12-21] MEDS: CALCIUM/VITAMIN D 500 MG TAB PO (09:49)
[2017-12-21] MEDS: FUROSEMIDE 20 MG TAB PO (09:49)
[2017-12-21 14:20] LABS: CK-MB VALUE MASS 2.7 NG/ML (0.0-3.6); CPK CREATINE PHOSPHOKINASE 59 U/L (26-192); MB/CK RELATIVE INDEX 4.57 (< OR =4); TROPONIN I < 0.02 NG/ML (< 0.10)
[2017-12-22] MEDS: IPRATROPIUM 0.5MG/ALBUTEROL 2.5MG INH SOL UD 3ML (DUONEB)(J7620) NEB ×3 (02:00→10:01)
[2017-12-22] MEDS: SUCRALFATE SUSP 1GM/10ML UD PO ×2 (07:30→09:25)
[2017-12-22] MEDS: FUROSEMIDE 20 MG TAB PO (07:40)
[2017-12-22] MEDS: guaiFENesin ER 600 MG TAB PO (08:14)
[2017-12-22] MEDS: CALCIUM/VITAMIN D 500 MG TAB PO (08:15)
[2017-12-22] MEDS: predniSONE 20 MG TAB PO (08:15)
== END 2017-12-22 10:43 | disposition home or self-care (01) | DRG 190 ==
LOC: M ED 23:07 → M ED INP 12-13 03:15 → M MSPAV 12-14 12:08
DX: J44.1 Chronic obstructive pulmonary disease with (acute) exacerbation (principal); Q39.4 Esophageal web; I50.32 Chronic diastolic (congestive) heart failure; K22.10 Ulcer of esophagus without bleeding; J96.11 Chronic respiratory failure with hypoxia; F41.9 Anxiety disorder, unspecified; I25.10 Atherosclerotic heart disease of native coronary artery without angina pectoris; R13.10 Dysphagia, unspecified; K21.9 Gastro-esophageal reflux disease without esophagitis; M19.012 Primary osteoarthritis, left shoulder; M19.011 Primary osteoarthritis, right shoulder; F03.90 Unspecified dementia, unspecified severity, without behavioral disturbance, psychotic disturbance, mood disturbance, and anxiety; D50.9 Iron deficiency anemia, unspecified; K44.9 Diaphragmatic hernia without obstruction or gangrene; I11.0 Hypertensive heart disease with heart failure; I27.20 Pulmonary hypertension, unspecified; Z66 Do not resuscitate; Z95.5 Presence of coronary angioplasty implant and graft; Z86.73 Personal history of transient ischemic attack (TIA), and cerebral infarction without residual deficits; Z87.891 Personal history of nicotine dependence; Z79.82 Long term (current) use of aspirin; Z79.899 Other long term (current) drug therapy; Z88.8 Allergy status to other drugs, medicaments and biological substances; Z88.1 Allergy status to other antibiotic agents

== ENCOUNTER 2017-12-24 05:51 | Observation (INO) | payer MEDICARE, OTHER ==
[2017-12-24] MEDS: methylPREDNISolone INJ 125 MG/2 ML VIAL (J2930) IV ×3 (06:42)
[2017-12-24 06:49] LABS: BASO % 0.2 % (0.0-1.0); EOS # 0.1 10^3/uL (0.0-0.50); EOS % 0.7 % (0.0-3.0); HEMATOCRIT 33.3 % (36.0-47.0); HEMOGLOBIN 10.6 g/dl (12.0-16.0); IMMATURE GRANULOCYTE % 1.3 % (0-3.0); LYMPH # 0.4 10^3/uL (1.5-4.5); LYMPH % 3.4 % (24.0-44.0); MEAN CORPUSCULAR HEMOGLOBIN 27.7 pg (27.0-33.0); MEAN CORPUSCULAR HGB CONC 31.8 g/dl (32.0-36.5); MEAN CORPUSCULAR VOLUME 87.2 fl (80.0-96.0); MONO # 0.7 10^3/uL (0.0-0.8); MONO % 5.4 % (0.0-5.0); NEUTROPHILS # 11.6 10^3/uL (1.8-7.7); PLATELET COUNT, AUTOMATED 306 10^3/uL (150-450); RED BLOOD COUNT 3.82 10^6/uL (4.00-5.40); RED CELL DISTRIBUTION WIDTH 17.3 % (11.5-14.5)
[2017-12-24] MEDS: IPRATROPIUM 0.5MG/ALBUTEROL 2.5MG INH SOL UD 3ML (DUONEB)(J7620) NEB ×9 (06:53→18:34)
[2017-12-24 07:16] LABS: ANION GAP 10 MEQ/L (8-16); BLOOD UREA NITROGEN 26 MG/DL (7-18); CALCIUM LEVEL 8.5 MG/DL (8.8-10.2); CARBON DIOXIDE LEVEL 29 MEQ/L (21-32); CHLORIDE LEVEL 101 MEQ/L (98-107); CK-MB VALUE MASS 2.4 NG/ML (0.0-3.6); CPK CREATINE PHOSPHOKINASE 62 U/L (26-192); CREATININE FOR GFR 0.61 MG/DL (0.55-1.30); GLOMERULAR FILTRATION RATE > 60.0 (>32); GLUCOSE, FASTING 132 MG/DL (70-100); MB/CK RELATIVE INDEX 3.87 (< OR =4); POTASSIUM SERUM 4.3 MEQ/L (3.5-5.1); SODIUM LEVEL 140 MEQ/L (136-145); TROPONIN I < 0.02 NG/ML (< 0.10)
[2017-12-24 07:50] LABS: ABG BASE EXCESS 2.1 (-2.0-2.0); ABG PARTIAL PRESSURE CO2 37.7 mmHg (35.0-45.0); ABG PARTIAL PRESSURE O2 72.5 mmHg (75.0-100.0); ABG STANDARD HCO3 26.3 MEQ/L (22.0-26.0); ABG TOTAL CO2 27.1 MEQ/L (23.0-31.0); ABG pH (ARTERIAL) 7.456 UNITS (7.350-7.450)
[2017-12-24] MEDS: guaiFENesin ER 600 MG TAB PO ×9 (09:00→10:17)
[2017-12-24] MEDS: ENOXAPARIN 30 MG/0.3 ML SYR (J1650) SC ×9 (09:00→10:17)
[2017-12-24] MEDS ORDERED: ALBUTEROL SULFATE 2.5 MG/0.5 ML INH NEB SOLN NEB ×3 (09:15)
[2017-12-24] MEDS ORDERED: OMEPRAZOLE 20 MG CAP PO ×3 (09:15)
[2017-12-24] MEDS: CALCIUM/VITAMIN D 500 MG TAB PO ×3 (10:12)
[2017-12-24] MEDS: ASPIRIN 81 MG ENTERIC TAB PO ×3 (10:12)
[2017-12-24] MEDS: predniSONE 20 MG TAB PO ×3 (10:12)
[2017-12-24] MEDS: SUCRALFATE SUSP 1GM/10ML UD PO ×9 (12:00→20:25)
[2017-12-24] MEDS: TIOTROPIUM INHALER/CAPSULE (SPIRIVA) INH ×3 (12:55)
[2017-12-24] MEDS: ADVAIR HFA 230/21MCG INHALER INH ×6 (12:55→20:28)
[2017-12-24] MEDS: FUROSEMIDE 100 MG/10 ML VIAL (J1940) IV ×3 (15:07)
[2017-12-24] MEDS ORDERED: IPRATROPIUM 0.5MG/ALBUTEROL 2.5MG INH SOL UD 3ML (DUONEB)(J7620) NEB ×3 (16:00)
[2017-12-24] MEDS ORDERED: SYMBICORT 80/4.5MCG INHALER 6GM INH ×3 (21:00)
[2017-12-25] MEDS: IPRATROPIUM 0.5MG/ALBUTEROL 2.5MG INH SOL UD 3ML (DUONEB)(J7620) NEB ×6 (00:08→15:26)
[2017-12-25 06:37] LABS: BASO % 0.1 % (0.0-1.0); EOS % 0.3 % (0.0-3.0); HEMATOCRIT 28.6 % (36.0-47.0); HEMOGLOBIN 9.4 g/dl (12.0-16.0); IMMATURE GRANULOCYTE % 1.6 % (0-3.0); LYMPH # 0.4 10^3/uL (1.5-4.5); LYMPH % 5.2 % (24.0-44.0); MEAN CORPUSCULAR HEMOGLOBIN 27.8 pg (27.0-33.0); MEAN CORPUSCULAR HGB CONC 32.9 g/dl (32.0-36.5); MEAN CORPUSCULAR VOLUME 84.6 fl (80.0-96.0); MONO % 13.1 % (0.0-5.0); NEUTROPHILS % 79.7 % (36.0-66.0); PLATELET COUNT, AUTOMATED 259 10^3/uL (150-450); RED BLOOD COUNT 3.38 10^6/uL (4.00-5.40); RED CELL DISTRIBUTION WIDTH 17.5 % (11.5-14.5); WHITE BLOOD COUNT 7.5 10^3/uL (4.0-10.0)
[2017-12-25 07:06] LABS: ANION GAP 8 MEQ/L (8-16); BLOOD UREA NITROGEN 28 MG/DL (7-18); CARBON DIOXIDE LEVEL 29 MEQ/L (21-32); CHLORIDE LEVEL 102 MEQ/L (98-107); CREATININE FOR GFR 0.72 MG/DL (0.55-1.30); GLOMERULAR FILTRATION RATE > 60.0 (>32); GLUCOSE, FASTING 88 MG/DL (70-100); POTASSIUM SERUM 3.5 MEQ/L (3.5-5.1); SODIUM LEVEL 139 MEQ/L (136-145)
[2017-12-25] MEDS: SUCRALFATE SUSP 1GM/10ML UD PO ×12 (07:30→21:00)
[2017-12-25] MEDS: TIOTROPIUM INHALER/CAPSULE (SPIRIVA) INH ×3 (08:01)
[2017-12-25] MEDS: ADVAIR HFA 230/21MCG INHALER INH ×6 (08:01→21:50)
[2017-12-25] MEDS: guaiFENesin ER 600 MG TAB PO ×6 (08:52→21:00)
[2017-12-25] MEDS: predniSONE 20 MG TAB PO ×3 (08:52)
[2017-12-25] MEDS: CALCIUM/VITAMIN D 500 MG TAB PO ×3 (08:52)
[2017-12-25] MEDS: ASPIRIN 81 MG ENTERIC TAB PO ×3 (08:52)
[2017-12-25] MEDS: FUROSEMIDE 40 MG/4 ML VIAL (J1940) IV ×3 (11:37)
[2017-12-26] MEDS ORDERED: IPRATROPIUM 0.5MG/ALBUTEROL 2.5MG INH SOL UD 3ML (DUONEB)(J7620) NEB ×3 (06:30)
[2017-12-26 06:57] LABS: EOS % 0.3 % (0.0-3.0); HEMATOCRIT 29.3 % (36.0-47.0); HEMOGLOBIN 9.4 g/dl (12.0-16.0); IMMATURE GRANULOCYTE % 1.3 % (0-3.0); LYMPH # 0.8 10^3/uL (1.5-4.5); MEAN CORPUSCULAR HEMOGLOBIN 27.6 pg (27.0-33.0); MEAN CORPUSCULAR HGB CONC 32.1 g/dl (32.0-36.5); MEAN CORPUSCULAR VOLUME 85.9 fl (80.0-96.0); MONO # 0.9 10^3/uL (0.0-0.8); NEUTROPHILS # 4.3 10^3/uL (1.8-7.7); NEUTROPHILS % 71.4 % (36.0-66.0); PLATELET COUNT, AUTOMATED 253 10^3/uL (150-450); RED BLOOD COUNT 3.41 10^6/uL (4.00-5.40); RED CELL DISTRIBUTION WIDTH 17.5 % (11.5-14.5); WHITE BLOOD COUNT 6.1 10^3/uL (4.0-10.0)
[2017-12-26 07:10] LABS: ANION GAP 6 MEQ/L (8-16); BLOOD UREA NITROGEN 24 MG/DL (7-18); CALCIUM LEVEL 8.1 MG/DL (8.8-10.2); CARBON DIOXIDE LEVEL 32 MEQ/L (21-32); CHLORIDE LEVEL 101 MEQ/L (98-107); CREATININE FOR GFR 0.74 MG/DL (0.55-1.30); GLOMERULAR FILTRATION RATE > 60.0 (>32); GLUCOSE, FASTING 77 MG/DL (70-100); POTASSIUM SERUM 3.9 MEQ/L (3.5-5.1); SODIUM LEVEL 139 MEQ/L (136-145)
[2017-12-26] MEDS: SUCRALFATE SUSP 1GM/10ML UD PO ×12 (07:30→21:00)
[2017-12-26] MEDS: IPRATROPIUM 0.5MG/ALBUTEROL 2.5MG INH SOL UD 3ML (DUONEB)(J7620) NEB ×12 (07:33→21:07)
[2017-12-26] MEDS: TIOTROPIUM INHALER/CAPSULE (SPIRIVA) INH ×3 (07:33)
[2017-12-26] MEDS: ADVAIR HFA 230/21MCG INHALER INH ×6 (07:33→21:07)
[2017-12-26] MEDS ORDERED: ISOVUE-370 76% 100ML VIAL (Q9967) As Ordered ×3 (07:49)
[2017-12-26] MEDS: guaiFENesin ER 600 MG TAB PO ×6 (08:57→21:00)
[2017-12-26] MEDS: predniSONE 20 MG TAB PO ×3 (08:57)
[2017-12-26] MEDS: CALCIUM/VITAMIN D 500 MG TAB PO ×3 (08:58)
[2017-12-26] MEDS: ASPIRIN 81 MG ENTERIC TAB PO ×3 (08:58)
[2017-12-26] MEDS: ALPRAZolam 0.25 MG TAB PO ×3 (08:58)
[2017-12-26] MEDS: ENOXAPARIN 30 MG/0.3 ML SYR (J1650) SC ×3 (09:00)
[2017-12-26] MEDS ORDERED: predniSONE 10 MG TAB PO ×3 (09:00)
[2017-12-26] MEDS: FUROSEMIDE 20 MG TAB PO ×3 (09:00)
[2017-12-27] MEDS: IPRATROPIUM 0.5MG/ALBUTEROL 2.5MG INH SOL UD 3ML (DUONEB)(J7620) NEB ×9 (03:52→07:29)
[2017-12-27] MEDS: TIOTROPIUM INHALER/CAPSULE (SPIRIVA) INH ×3 (07:26)
[2017-12-27] MEDS: ADVAIR HFA 230/21MCG INHALER INH ×3 (07:26)
[2017-12-27] MEDS: SUCRALFATE SUSP 1GM/10ML UD PO ×9 (07:30→11:27)
[2017-12-27] MEDS: ENOXAPARIN 30 MG/0.3 ML SYR (J1650) SC ×3 (08:11)
[2017-12-27] MEDS: CALCIUM/VITAMIN D 500 MG TAB PO ×6 (08:15→09:00)
[2017-12-27] MEDS: predniSONE 20 MG TAB PO ×3 (08:15)
[2017-12-27] MEDS: FUROSEMIDE 20 MG TAB PO ×6 (08:15→09:00)
[2017-12-27] MEDS: ASPIRIN 81 MG ENTERIC TAB PO ×3 (08:15)
[2017-12-27] MEDS: guaiFENesin ER 600 MG TAB PO ×6 (08:15→09:00)
[2017-12-29] MEDS ORDERED: predniSONE 10 MG TAB PO ×3 (09:00)
[2018-01-01] MEDS ORDERED: predniSONE 20 MG TAB PO ×3 (09:00)
[2018-01-04] MEDS ORDERED: predniSONE 10 MG TAB PO ×3 (09:00)
[2018-01-07] MEDS ORDERED: predniSONE 20 MG TAB PO ×3 (09:00)
[2018-01-10] MEDS ORDERED: predniSONE 10 MG TAB PO ×3 (09:00)
== END 2017-12-27 11:40 | disposition home or self-care (01) ==
LOC: M ED 05:51 → M ED INP 08:47 → M MS4PR 20:57
DX: J44.9 Chronic obstructive pulmonary disease, unspecified (principal); J96.11 Chronic respiratory failure with hypoxia; Q39.4 Esophageal web; M19.011 Primary osteoarthritis, right shoulder; I11.0 Hypertensive heart disease with heart failure; I50.30 Unspecified diastolic (congestive) heart failure; F41.9 Anxiety disorder, unspecified; I25.10 Atherosclerotic heart disease of native coronary artery without angina pectoris; I27.20 Pulmonary hypertension, unspecified; R13.10 Dysphagia, unspecified; R60.0 Localized edema; Z86.73 Personal history of transient ischemic attack (TIA), and cerebral infarction without residual deficits; D50.9 Iron deficiency anemia, unspecified; F03.90 Unspecified dementia, unspecified severity, without behavioral disturbance, psychotic disturbance, mood disturbance, and anxiety; Z95.5 Presence of coronary angioplasty implant and graft; Z87.891 Personal history of nicotine dependence; Z88.1 Allergy status to other antibiotic agents; Z88.4 Allergy status to anesthetic agent; Z79.899 Other long term (current) drug therapy; Z79.51 Long term (current) use of inhaled steroids; Z79.82 Long term (current) use of aspirin
CPT/HCPCS: Q9967

== ENCOUNTER 2018-01-20 17:08 | Inpatient (IN) | payer MEDICARE, OTHER ==
[2018-01-20] MEDS: IPRATROPIUM 0.5MG/ALBUTEROL 2.5MG INH SOL UD 3ML (DUONEB)(J7620) NEB ×3 (17:40→20:29)
[2018-01-20] MEDS ORDERED: IPRATROPIUM 0.5MG/ALBUTEROL 2.5MG INH SOL UD 3ML (DUONEB)(J7620) As Ordered (17:58)
[2018-01-20] MEDS: methylPREDNISolone INJ 125 MG/2 ML VIAL (J2930) IV (18:15)
[2018-01-20 18:25] LABS: BASO % 0.4 % (0.0-1.0); EOS # 0.1 10^3/uL (0.0-0.50); EOS % 1.6 % (0.0-3.0); HEMATOCRIT 29.4 % (36.0-47.0); HEMOGLOBIN 9.5 g/dl (12.0-16.0); IMMATURE GRANULOCYTE % 0.7 % (0-3.0); LYMPH # 1.4 10^3/uL (1.5-4.5); LYMPH % 19.4 % (24.0-44.0); MEAN CORPUSCULAR HEMOGLOBIN 28.5 pg (27.0-33.0); MEAN CORPUSCULAR HGB CONC 32.3 g/dl (32.0-36.5); MEAN CORPUSCULAR VOLUME 88.3 fl (80.0-96.0); MONO # 0.8 10^3/uL (0.0-0.8); MONO % 11.2 % (0.0-5.0); NEUTROPHILS # 4.9 10^3/uL (1.8-7.7); NEUTROPHILS % 66.7 % (36.0-66.0); PLATELET COUNT, AUTOMATED 263 10^3/uL (150-450); RED BLOOD COUNT 3.33 10^6/uL (4.00-5.40); RED CELL DISTRIBUTION WIDTH 17.5 % (11.5-14.5); WHITE BLOOD COUNT 7.4 10^3/uL (4.0-10.0)
[2018-01-20 18:50] LABS: ALBUMIN 3.2 GM/DL (3.2-5.2); ALKALINE PHOSPHATASE 78 U/L (45-117); ALT/SGPT 17 U/L (12-78); ANION GAP 8 MEQ/L (8-16); AST/SGOT 19 U/L (7-37); BILIRUBIN,DIRECT 0.2 MG/DL (0.0-0.2); BILIRUBIN,TOTAL 0.6 MG/DL (0.2-1.0); BLOOD UREA NITROGEN 13 MG/DL (7-18); CALCIUM LEVEL 8.6 MG/DL (8.8-10.2); CARBON DIOXIDE LEVEL 28 MEQ/L (21-32); CHLORIDE LEVEL 104 MEQ/L (98-107); CPK CREATINE PHOSPHOKINASE 94 U/L (26-192); CREATININE FOR GFR 0.58 MG/DL (0.55-1.30); GLOMERULAR FILTRATION RATE > 60.0 (>32); GLUCOSE, FASTING 123 MG/DL (70-100); POTASSIUM SERUM 3.9 MEQ/L (3.5-5.1); SODIUM LEVEL 140 MEQ/L (136-145); TOTAL PROTEIN 6.4 GM/DL (6.4-8.2); TROPONIN I < 0.02 NG/ML (< 0.10)
[2018-01-20 18:55] LABS: CK-MB VALUE MASS 3.5 NG/ML (0.0-3.6); MB/CK RELATIVE INDEX 3.72 (< OR =4); NT-PRO BNP 342 PG/ML (<450)
[2018-01-20] MEDS ORDERED: OMEPRAZOLE 20 MG CAP PO (22:00)
[2018-01-20] MEDS ORDERED: CETIRIZINE (ZyrTEC) 10 MG TAB PO (22:00)
[2018-01-20] MEDS: HEPARIN SOD (PORCINE) 5000 UNITS/ML VIAL SQ ×2 (23:01→23:05)
[2018-01-20] MEDS: FUROSEMIDE 20 MG/2 ML VIAL (J1940) IV (23:01)
[2018-01-20] MEDS: AZITHROMYCIN INJ 500 MG, VIAL MATE ADAPTER 1 EACH in D5W 250 ML IV (23:02)
[2018-01-21] MEDS: LEVALBUTEROL 1.25 MG/0.5 ML CONCENTRATE NEB NEB ×9 (00:21→23:23)
[2018-01-21] MEDS: methylPREDNISolone INJ 125 MG/2 ML VIAL (J2930) IV ×3 (03:08→18:04)
[2018-01-21 05:59] LABS: HEMATOCRIT 29.3 % (36.0-47.0); HEMOGLOBIN 9.5 g/dl (12.0-16.0); MEAN CORPUSCULAR HEMOGLOBIN 27.9 pg (27.0-33.0); MEAN CORPUSCULAR HGB CONC 32.4 g/dl (32.0-36.5); MEAN CORPUSCULAR VOLUME 85.9 fl (80.0-96.0); PLATELET COUNT, AUTOMATED 272 10^3/uL (150-450); RED BLOOD COUNT 3.41 10^6/uL (4.00-5.40); RED CELL DISTRIBUTION WIDTH 17.5 % (11.5-14.5); WHITE BLOOD COUNT 4.6 10^3/uL (4.0-10.0)
[2018-01-21 06:35] LABS: ANION GAP 8 MEQ/L (8-16); BLOOD UREA NITROGEN 16 MG/DL (7-18); CALCIUM LEVEL 8.6 MG/DL (8.8-10.2); CARBON DIOXIDE LEVEL 28 MEQ/L (21-32); CHLORIDE LEVEL 103 MEQ/L (98-107); CREATININE FOR GFR 0.77 MG/DL (0.55-1.30); GLOMERULAR FILTRATION RATE > 60.0 (>32); GLUCOSE, FASTING 226 MG/DL (70-100); POTASSIUM SERUM 3.8 MEQ/L (3.5-5.1); SODIUM LEVEL 139 MEQ/L (136-145)
[2018-01-21] MEDS: HEPARIN SOD (PORCINE) 5000 UNITS/ML VIAL SQ ×2 (07:38→21:00)
[2018-01-21] MEDS: ATORVASTATIN 10 MG TAB PO (09:00)
[2018-01-21] MEDS: FUROSEMIDE 20 MG/2 ML VIAL (J1940) IV ×2 (09:07→18:04)
[2018-01-21] MEDS: ASPIRIN 81 MG ENTERIC TAB PO (09:07)
[2018-01-21] MEDS: AZITHROMYCIN INJ 500 MG, VIAL MATE ADAPTER 1 EACH in D5W 250 ML IV (21:14)
[2018-01-22] MEDS: methylPREDNISolone INJ 125 MG/2 ML VIAL (J2930) IV ×2 (03:01→08:45)
[2018-01-22] MEDS: LEVALBUTEROL 1.25 MG/0.5 ML CONCENTRATE NEB NEB ×7 (05:12→23:10)
[2018-01-22 06:14] LABS: HEMATOCRIT 30.2 % (36.0-47.0); HEMOGLOBIN 9.7 g/dl (12.0-16.0); MEAN CORPUSCULAR HEMOGLOBIN 27.6 pg (27.0-33.0); MEAN CORPUSCULAR HGB CONC 32.1 g/dl (32.0-36.5); PLATELET COUNT, AUTOMATED 317 10^3/uL (150-450); RED BLOOD COUNT 3.51 10^6/uL (4.00-5.40); RED CELL DISTRIBUTION WIDTH 17.8 % (11.5-14.5); WHITE BLOOD COUNT 11.1 10^3/uL (4.0-10.0)
[2018-01-22 06:30] LABS: ANION GAP 10 MEQ/L (8-16); BLOOD UREA NITROGEN 35 MG/DL (7-18); CALCIUM LEVEL 9.2 MG/DL (8.8-10.2); CARBON DIOXIDE LEVEL 27 MEQ/L (21-32); CHLORIDE LEVEL 103 MEQ/L (98-107); CREATININE FOR GFR 0.88 MG/DL (0.55-1.30); GLOMERULAR FILTRATION RATE > 60.0 (>32); GLUCOSE, FASTING 160 MG/DL (70-100); POTASSIUM SERUM 3.8 MEQ/L (3.5-5.1); SODIUM LEVEL 140 MEQ/L (136-145)
[2018-01-22] MEDS: FUROSEMIDE 20 MG/2 ML VIAL (J1940) IV ×2 (08:45→16:47)
[2018-01-22] MEDS: ASPIRIN 81 MG ENTERIC TAB PO (08:45)
[2018-01-22] MEDS: ATORVASTATIN 10 MG TAB PO (08:45)
[2018-01-22] MEDS: HEPARIN SOD (PORCINE) 5000 UNITS/ML VIAL SQ ×2 (08:46→20:16)
[2018-01-22 11:38] LABS: ABG HCO3 24.7 MEQ/L (22.0-26.0); ABG TOTAL CO2 25.9 MEQ/L (23.0-31.0)
[2018-01-22 11:39] LABS: ABG BASE EXCESS 0.6 (-2.0-2.0); ABG O2 SATURATION 94.9 % (95.0-99.0); ABG PARTIAL PRESSURE CO2 37.9 mmHg (35.0-45.0); ABG PARTIAL PRESSURE O2 75.4 mmHg (75.0-100.0); ABG STANDARD HCO3 24.9 MEQ/L (22.0-26.0); ABG pH (ARTERIAL) 7.432 UNITS (7.350-7.450)
[2018-01-22 12:30] LABS: AMMONIA 17 uMOL/L (<32)
[2018-01-22] MEDS ORDERED: SENOKOT S TAB PO (15:15)
[2018-01-22] MEDS: AZITHROMYCIN 250 MG TAB PO (16:47)
[2018-01-22] MEDS: ONDANSETRON 4MG/2ML VIAL (J2405) IV ×2 (20:00→23:25)
[2018-01-22] MEDS: predniSONE 20 MG TAB PO (20:15)
[2018-01-23] MEDS: ONDANSETRON 4MG/2ML VIAL (J2405) IV ×2 (04:00→08:00)
[2018-01-23] MEDS: ASPIRIN 81 MG ENTERIC TAB PO (07:01)
[2018-01-23 07:08] LABS: HEMATOCRIT 31.4 % (36.0-47.0); HEMOGLOBIN 10.2 g/dl (12.0-16.0); MEAN CORPUSCULAR HEMOGLOBIN 27.9 pg (27.0-33.0); MEAN CORPUSCULAR HGB CONC 32.5 g/dl (32.0-36.5); MEAN CORPUSCULAR VOLUME 85.8 fl (80.0-96.0); PLATELET COUNT, AUTOMATED 348 10^3/uL (150-450); RED BLOOD COUNT 3.66 10^6/uL (4.00-5.40); WHITE BLOOD COUNT 13.7 10^3/uL (4.0-10.0)
[2018-01-23 07:28] LABS: ANION GAP 8 MEQ/L (8-16); BLOOD UREA NITROGEN 34 MG/DL (7-18); CALCIUM LEVEL 8.7 MG/DL (8.8-10.2); CARBON DIOXIDE LEVEL 31 MEQ/L (21-32); CHLORIDE LEVEL 105 MEQ/L (98-107); CK-MB VALUE MASS 3.9 NG/ML (0.0-3.6); CPK CREATINE PHOSPHOKINASE 92 U/L (26-192); CREATININE FOR GFR 0.74 MG/DL (0.55-1.30); GLOMERULAR FILTRATION RATE > 60.0 (>32); GLUCOSE, FASTING 124 MG/DL (70-100); MB/CK RELATIVE INDEX 4.23 (< OR =4); POTASSIUM SERUM 3.6 MEQ/L (3.5-5.1); SODIUM LEVEL 144 MEQ/L (136-145); TROPONIN I < 0.02 NG/ML (< 0.10)
[2018-01-23] MEDS: LEVALBUTEROL 1.25 MG/0.5 ML CONCENTRATE NEB NEB ×4 (08:53→20:06)
[2018-01-23] MEDS: HEPARIN SOD (PORCINE) 5000 UNITS/ML VIAL SQ ×3 (09:00→20:56)
[2018-01-23] MEDS: DOCUSATE SODIUM 100 MG CAP PO ×2 (09:00→20:56)
[2018-01-23] MEDS: predniSONE 20 MG TAB PO ×2 (09:22→20:33)
[2018-01-23] MEDS: ATORVASTATIN 10 MG TAB PO (09:22)
[2018-01-23] MEDS: AZITHROMYCIN 250 MG TAB PO (09:22)
[2018-01-23] MEDS: FUROSEMIDE 20 MG/2 ML VIAL (J1940) IV ×2 (09:25→17:00)
[2018-01-24] MEDS: LEVALBUTEROL 1.25 MG/0.5 ML CONCENTRATE NEB NEB ×8 (01:15→20:53)
[2018-01-24 06:39] LABS: HEMATOCRIT 29.9 % (36.0-47.0); HEMOGLOBIN 9.7 g/dl (12.0-16.0); MEAN CORPUSCULAR HEMOGLOBIN 27.9 pg (27.0-33.0); MEAN CORPUSCULAR HGB CONC 32.4 g/dl (32.0-36.5); MEAN CORPUSCULAR VOLUME 85.9 fl (80.0-96.0); PLATELET COUNT, AUTOMATED 322 10^3/uL (150-450); RED BLOOD COUNT 3.48 10^6/uL (4.00-5.40); RED CELL DISTRIBUTION WIDTH 17.7 % (11.5-14.5); WHITE BLOOD COUNT 12.1 10^3/uL (4.0-10.0)
[2018-01-24 06:55] LABS: ANION GAP 7 MEQ/L (8-16); BLOOD UREA NITROGEN 35 MG/DL (7-18); CALCIUM LEVEL 8.4 MG/DL (8.8-10.2); CARBON DIOXIDE LEVEL 29 MEQ/L (21-32); CHLORIDE LEVEL 105 MEQ/L (98-107); CREATININE FOR GFR 0.77 MG/DL (0.55-1.30); GLOMERULAR FILTRATION RATE > 60.0 (>32); GLUCOSE, FASTING 158 MG/DL (70-100); SODIUM LEVEL 141 MEQ/L (136-145)
[2018-01-24] MEDS ORDERED: ONDANSETRON 4MG/2ML VIAL (J2405) IV (08:00)
[2018-01-24] MEDS: HEPARIN SOD (PORCINE) 5000 UNITS/ML VIAL SQ ×2 (09:06→20:50)
[2018-01-24] MEDS: DOCUSATE SODIUM 100 MG CAP PO ×3 (09:13→20:46)
[2018-01-24] MEDS: FUROSEMIDE 20 MG/2 ML VIAL (J1940) IV ×2 (09:13→17:00)
[2018-01-24] MEDS: ASPIRIN 81 MG ENTERIC TAB PO (09:14)
[2018-01-24] MEDS: AZITHROMYCIN 250 MG TAB PO (09:14)
[2018-01-24] MEDS: predniSONE 20 MG TAB PO ×2 (09:14→20:46)
[2018-01-24] MEDS: ATORVASTATIN 10 MG TAB PO (09:14)
[2018-01-24] MEDS: ALPRAZolam 0.25 MG TAB PO (18:21)
[2018-01-25] MEDS: LEVALBUTEROL 1.25 MG/0.5 ML CONCENTRATE NEB NEB ×3 (01:30→11:42)
[2018-01-25 06:10] LABS: HEMATOCRIT 31.6 % (36.0-47.0); HEMOGLOBIN 10.2 g/dl (12.0-16.0); MEAN CORPUSCULAR HEMOGLOBIN 27.9 pg (27.0-33.0); MEAN CORPUSCULAR HGB CONC 32.3 g/dl (32.0-36.5); MEAN CORPUSCULAR VOLUME 86.3 fl (80.0-96.0); PLATELET COUNT, AUTOMATED 337 10^3/uL (150-450); RED BLOOD COUNT 3.66 10^6/uL (4.00-5.40); RED CELL DISTRIBUTION WIDTH 17.5 % (11.5-14.5); WHITE BLOOD COUNT 10.5 10^3/uL (4.0-10.0)
[2018-01-25 06:31] LABS: ANION GAP 6 MEQ/L (8-16); BLOOD UREA NITROGEN 36 MG/DL (7-18); CALCIUM LEVEL 8.4 MG/DL (8.8-10.2); CARBON DIOXIDE LEVEL 32 MEQ/L (21-32); CHLORIDE LEVEL 102 MEQ/L (98-107); CREATININE FOR GFR 0.77 MG/DL (0.55-1.30); GLOMERULAR FILTRATION RATE > 60.0 (>32); GLUCOSE, FASTING 143 MG/DL (70-100); POTASSIUM SERUM 3.9 MEQ/L (3.5-5.1); SODIUM LEVEL 140 MEQ/L (136-145)
[2018-01-25] MEDS: HEPARIN SOD (PORCINE) 5000 UNITS/ML VIAL SQ ×2 (07:14→20:13)
[2018-01-25] MEDS: DOCUSATE SODIUM 100 MG CAP PO ×3 (09:00→20:13)
[2018-01-25] MEDS: ASPIRIN 81 MG ENTERIC TAB PO ×2 (09:00→09:20)
[2018-01-25] MEDS: ATORVASTATIN 10 MG TAB PO ×2 (09:00→09:20)
[2018-01-25] MEDS: PANTOPRAZOLE 40MG TAB (PROTONIX) PO (09:00)
[2018-01-25] MEDS: AZITHROMYCIN 250 MG TAB PO (09:20)
[2018-01-25] MEDS: predniSONE 20 MG TAB PO (09:20)
[2018-01-25] MEDS: FUROSEMIDE 20 MG/2 ML VIAL (J1940) IV (09:20)
[2018-01-25] MEDS: methylPREDNISolone INJ 40 MG/1 ML VIAL (J2920) IV ×2 (13:07→20:11)
[2018-01-25] MEDS: IPRATROPIUM 0.5MG/ALBUTEROL 2.5MG INH SOL UD 3ML (DUONEB)(J7620) NEB ×3 (15:00→23:32)
[2018-01-25] MEDS: ALBUTEROL SULFATE 2.5 MG/0.5 ML INH NEB SOLN INH (17:41)
[2018-01-26] MEDS: IPRATROPIUM 0.5MG/ALBUTEROL 2.5MG INH SOL UD 3ML (DUONEB)(J7620) NEB ×5 (04:12→19:13)
[2018-01-26] MEDS: methylPREDNISolone INJ 40 MG/1 ML VIAL (J2920) IV ×3 (05:13→14:24)
[2018-01-26 06:07] LABS: HEMATOCRIT 29.3 % (36.0-47.0); HEMOGLOBIN 9.5 g/dl (12.0-16.0); MEAN CORPUSCULAR HEMOGLOBIN 28.1 pg (27.0-33.0); MEAN CORPUSCULAR HGB CONC 32.4 g/dl (32.0-36.5); MEAN CORPUSCULAR VOLUME 86.7 fl (80.0-96.0); PLATELET COUNT, AUTOMATED 342 10^3/uL (150-450); RED BLOOD COUNT 3.38 10^6/uL (4.00-5.40); RED CELL DISTRIBUTION WIDTH 17.3 % (11.5-14.5); WHITE BLOOD COUNT 14.4 10^3/uL (4.0-10.0)
[2018-01-26 06:22] LABS: ANION GAP 7 MEQ/L (8-16); BLOOD UREA NITROGEN 37 MG/DL (7-18); CALCIUM LEVEL 8.5 MG/DL (8.8-10.2); CARBON DIOXIDE LEVEL 30 MEQ/L (21-32); CHLORIDE LEVEL 103 MEQ/L (98-107); GLOMERULAR FILTRATION RATE > 60.0 (>32); GLUCOSE, FASTING 182 MG/DL (70-100); POTASSIUM SERUM 3.9 MEQ/L (3.5-5.1); SODIUM LEVEL 140 MEQ/L (136-145)
[2018-01-26] MEDS: PANTOPRAZOLE 40MG TAB (PROTONIX) PO (09:02)
[2018-01-26] MEDS: DOCUSATE SODIUM 100 MG CAP PO ×2 (09:02→20:28)
[2018-01-26] MEDS: AZITHROMYCIN 250 MG TAB PO (09:02)
[2018-01-26] MEDS: ATORVASTATIN 10 MG TAB PO (09:02)
[2018-01-26] MEDS: HEPARIN SOD (PORCINE) 5000 UNITS/ML VIAL SQ ×2 (09:02→20:29)
[2018-01-26] MEDS: ASPIRIN 81 MG ENTERIC TAB PO (09:02)
[2018-01-26] MEDS: FUROSEMIDE 40 MG TAB PO (18:40)
[2018-01-26] MEDS: ALPRAZolam 0.25 MG TAB PO (19:59)
[2018-01-26] MEDS: NITROGLYCERIN 0.4 MG SUBL TABLET SL (23:51)
[2018-01-27] MEDS: NITROGLYCERIN 0.4 MG SUBL TABLET SL (00:05)
[2018-01-27 00:26] LABS: ANION GAP 7 MEQ/L (8-16); BLOOD UREA NITROGEN 41 MG/DL (7-18); CALCIUM LEVEL 8.5 MG/DL (8.8-10.2); CARBON DIOXIDE LEVEL 32 MEQ/L (21-32); CHLORIDE LEVEL 101 MEQ/L (98-107); CPK CREATINE PHOSPHOKINASE 46 U/L (26-192); CREATININE FOR GFR 0.73 MG/DL (0.55-1.30); GLOMERULAR FILTRATION RATE > 60.0 (>32); GLUCOSE, FASTING 124 MG/DL (70-100); MAGNESIUM LEVEL 2.1 MG/DL (1.8-2.4); POTASSIUM SERUM 3.6 MEQ/L (3.5-5.1); SODIUM LEVEL 140 MEQ/L (136-145); TROPONIN I < 0.02 NG/ML (< 0.10)
[2018-01-27 00:28] LABS: CK-MB VALUE MASS 2.2 NG/ML (<3.6); MB/CK RELATIVE INDEX 4.78 (< OR =4)
[2018-01-27] MEDS: IPRATROPIUM 0.5MG/ALBUTEROL 2.5MG INH SOL UD 3ML (DUONEB)(J7620) NEB ×6 (01:46→20:35)
[2018-01-27] MEDS: MORPHINE 4 MG/ML 1ML VIAL/SYRINGE (J2270) IV (04:30)
[2018-01-27 05:33] LABS: HEMATOCRIT 29.3 % (36.0-47.0); HEMOGLOBIN 9.3 g/dl (12.0-16.0); MEAN CORPUSCULAR HEMOGLOBIN 27.4 pg (27.0-33.0); MEAN CORPUSCULAR HGB CONC 31.7 g/dl (32.0-36.5); MEAN CORPUSCULAR VOLUME 86.2 fl (80.0-96.0); PLATELET COUNT, AUTOMATED 365 10^3/uL (150-450); RED CELL DISTRIBUTION WIDTH 17.6 % (11.5-14.5); WHITE BLOOD COUNT 13.4 10^3/uL (4.0-10.0)
[2018-01-27 06:04] LABS: ANION GAP 5 MEQ/L (8-16); BLOOD UREA NITROGEN 35 MG/DL (7-18); CALCIUM LEVEL 8.1 MG/DL (8.8-10.2); CARBON DIOXIDE LEVEL 32 MEQ/L (21-32); CHLORIDE LEVEL 104 MEQ/L (98-107); CK-MB VALUE MASS 2.2 NG/ML (<3.6); CPK CREATINE PHOSPHOKINASE 39 U/L (26-192); CREATININE FOR GFR 0.69 MG/DL (0.55-1.30); GLOMERULAR FILTRATION RATE > 60.0 (>32); GLUCOSE, FASTING 82 MG/DL (70-100); MB/CK RELATIVE INDEX 5.64 (< OR =4); POTASSIUM SERUM 3.8 MEQ/L (3.5-5.1); SODIUM LEVEL 141 MEQ/L (136-145); TROPONIN I < 0.02 NG/ML (< 0.10)
[2018-01-27] MEDS: HEPARIN SOD (PORCINE) 5000 UNITS/ML VIAL SQ ×2 (09:00→20:32)
[2018-01-27] MEDS: AZITHROMYCIN 250 MG TAB PO (10:05)
[2018-01-27] MEDS: predniSONE 20 MG TAB PO (10:05)
[2018-01-27] MEDS: ASPIRIN 81 MG ENTERIC TAB PO (10:06)
[2018-01-27] MEDS: PANTOPRAZOLE 40MG TAB (PROTONIX) PO ×2 (10:06→10:09)
[2018-01-27] MEDS: ATORVASTATIN 10 MG TAB PO (10:06)
[2018-01-27] MEDS: DOCUSATE SODIUM 100 MG CAP PO ×3 (10:06→20:31)
[2018-01-27] MEDS: FUROSEMIDE 40 MG TAB PO (15:48)
[2018-01-27] MEDS: ALPRAZolam 0.25 MG TAB PO (21:52)
[2018-01-28] MEDS: IPRATROPIUM 0.5MG/ALBUTEROL 2.5MG INH SOL UD 3ML (DUONEB)(J7620) NEB ×7 (04:00→23:40)
[2018-01-28] MEDS: ALBUTEROL SULFATE 2.5 MG/0.5 ML INH NEB SOLN INH (04:18)
[2018-01-28] MEDS: HEPARIN SOD (PORCINE) 5000 UNITS/ML VIAL SQ ×2 (09:00→21:00)
[2018-01-28] MEDS: DOCUSATE SODIUM 100 MG CAP PO ×2 (09:00→20:06)
[2018-01-28] MEDS: PANTOPRAZOLE 40MG TAB (PROTONIX) PO (09:00)
[2018-01-28] MEDS: FUROSEMIDE 40 MG TAB PO ×2 (09:00→11:26)
[2018-01-28] MEDS: AZITHROMYCIN 250 MG TAB PO (09:48)
[2018-01-28] MEDS: ATORVASTATIN 10 MG TAB PO (09:49)
[2018-01-28] MEDS: predniSONE 20 MG TAB PO (09:49)
[2018-01-28] MEDS: ASPIRIN 81 MG ENTERIC TAB PO (09:49)
[2018-01-29] MEDS: IPRATROPIUM 0.5MG/ALBUTEROL 2.5MG INH SOL UD 3ML (DUONEB)(J7620) NEB ×6 (03:36→20:26)
[2018-01-29] MEDS: DOCUSATE SODIUM 100 MG CAP PO ×2 (07:13→20:15)
[2018-01-29] MEDS: HEPARIN SOD (PORCINE) 5000 UNITS/ML VIAL SQ ×2 (07:14→20:16)
[2018-01-29] MEDS: PANTOPRAZOLE 40MG TAB (PROTONIX) PO (07:14)
[2018-01-29 07:43] LABS: HEMOGLOBIN 9.7 g/dl (12.0-16.0); MEAN CORPUSCULAR HEMOGLOBIN 28.3 pg (27.0-33.0); MEAN CORPUSCULAR HGB CONC 32.3 g/dl (32.0-36.5); MEAN CORPUSCULAR VOLUME 87.5 fl (80.0-96.0); PLATELET COUNT, AUTOMATED 356 10^3/uL (150-450); RED BLOOD COUNT 3.43 10^6/uL (4.00-5.40); RED CELL DISTRIBUTION WIDTH 17.9 % (11.5-14.5); WHITE BLOOD COUNT 14.9 10^3/uL (4.0-10.0)
[2018-01-29 08:16] LABS: ANION GAP 6 MEQ/L (8-16); BLOOD UREA NITROGEN 36 MG/DL (7-18); CALCIUM LEVEL 8.7 MG/DL (8.8-10.2); CARBON DIOXIDE LEVEL 32 MEQ/L (21-32); CHLORIDE LEVEL 103 MEQ/L (98-107); GLOMERULAR FILTRATION RATE > 60.0 (>32); GLUCOSE, FASTING 79 MG/DL (70-100); MAGNESIUM LEVEL 2.3 MG/DL (1.8-2.4); POTASSIUM SERUM 4.5 MEQ/L (3.5-5.1); SODIUM LEVEL 141 MEQ/L (136-145)
[2018-01-29] MEDS: ATORVASTATIN 10 MG TAB PO (09:00)
[2018-01-29] MEDS: FUROSEMIDE 40 MG TAB PO (09:00)
[2018-01-29] MEDS: predniSONE 20 MG TAB PO (09:10)
[2018-01-29] MEDS: ASPIRIN 81 MG ENTERIC TAB PO (09:10)
[2018-01-30] MEDS: IPRATROPIUM 0.5MG/ALBUTEROL 2.5MG INH SOL UD 3ML (DUONEB)(J7620) NEB ×7 (03:15→23:37)
[2018-01-30 05:55] LABS: HEMATOCRIT 29.3 % (36.0-47.0); HEMOGLOBIN 9.4 g/dl (12.0-16.0); MEAN CORPUSCULAR HEMOGLOBIN 27.6 pg (27.0-33.0); MEAN CORPUSCULAR HGB CONC 32.1 g/dl (32.0-36.5); MEAN CORPUSCULAR VOLUME 86.2 fl (80.0-96.0); PLATELET COUNT, AUTOMATED 399 10^3/uL (150-450); RED CELL DISTRIBUTION WIDTH 18.1 % (11.5-14.5); WHITE BLOOD COUNT 15.1 10^3/uL (4.0-10.0)
[2018-01-30 06:23] LABS: ANION GAP 4 MEQ/L (8-16); BLOOD UREA NITROGEN 32 MG/DL (7-18); CALCIUM LEVEL 8.4 MG/DL (8.8-10.2); CARBON DIOXIDE LEVEL 31 MEQ/L (21-32); CHLORIDE LEVEL 106 MEQ/L (98-107); CREATININE FOR GFR 0.67 MG/DL (0.55-1.30); GLOMERULAR FILTRATION RATE > 60.0 (>32); GLUCOSE, FASTING 80 MG/DL (70-100); MAGNESIUM LEVEL 2.2 MG/DL (1.8-2.4); POTASSIUM SERUM 4.4 MEQ/L (3.5-5.1); SODIUM LEVEL 141 MEQ/L (136-145)
[2018-01-30] MEDS: DOCUSATE SODIUM 100 MG CAP PO ×2 (07:22→20:37)
[2018-01-30] MEDS: PANTOPRAZOLE 40MG TAB (PROTONIX) PO (07:22)
[2018-01-30] MEDS: FUROSEMIDE 40 MG TAB PO (07:22)
[2018-01-30] MEDS: ATORVASTATIN 10 MG TAB PO (07:23)
[2018-01-30] MEDS: HEPARIN SOD (PORCINE) 5000 UNITS/ML VIAL SQ ×2 (07:23→20:37)
[2018-01-30] MEDS: predniSONE 20 MG TAB PO (09:28)
[2018-01-30] MEDS: ASPIRIN 81 MG ENTERIC TAB PO (09:28)
[2018-01-30] MEDS: ALBUTEROL SULFATE 2.5 MG/0.5 ML INH NEB SOLN INH (16:10)
[2018-01-31] MEDS: IPRATROPIUM 0.5MG/ALBUTEROL 2.5MG INH SOL UD 3ML (DUONEB)(J7620) NEB ×6 (02:34→22:42)
[2018-01-31] MEDS: DOCUSATE SODIUM 100 MG CAP PO ×2 (07:32→21:00)
[2018-01-31] MEDS: FUROSEMIDE 40 MG TAB PO (07:33)
[2018-01-31] MEDS: ATORVASTATIN 10 MG TAB PO (07:34)
[2018-01-31] MEDS: PANTOPRAZOLE 40MG TAB (PROTONIX) PO (07:34)
[2018-01-31] MEDS: HEPARIN SOD (PORCINE) 5000 UNITS/ML VIAL SQ ×2 (07:34→21:00)
[2018-01-31] MEDS: predniSONE 20 MG TAB PO (09:29)
[2018-01-31] MEDS: ASPIRIN 81 MG ENTERIC TAB PO (09:30)
[2018-01-31] MEDS: FUROSEMIDE 20 MG TAB PO (10:56)
[2018-02-01] MEDS: IPRATROPIUM 0.5MG/ALBUTEROL 2.5MG INH SOL UD 3ML (DUONEB)(J7620) NEB ×6 (04:32→22:47)
[2018-02-01] MEDS: DOCUSATE SODIUM 100 MG CAP PO ×2 (07:17→20:22)
[2018-02-01] MEDS: PANTOPRAZOLE 40MG TAB (PROTONIX) PO (07:18)
[2018-02-01] MEDS: ATORVASTATIN 10 MG TAB PO (07:18)
[2018-02-01] MEDS: HEPARIN SOD (PORCINE) 5000 UNITS/ML VIAL SQ ×2 (07:18→20:22)
[2018-02-01] MEDS: FUROSEMIDE 20 MG TAB PO (09:00)
[2018-02-01] MEDS: ASPIRIN 81 MG ENTERIC TAB PO (09:15)
[2018-02-01] MEDS: predniSONE 20 MG TAB PO (09:15)
[2018-02-01] MEDS: ALBUTEROL SULFATE 2.5 MG/0.5 ML INH NEB SOLN INH (17:30)
[2018-02-02] MEDS: ALPRAZolam 0.25 MG TAB PO (00:13)
[2018-02-02] MEDS: IPRATROPIUM 0.5MG/ALBUTEROL 2.5MG INH SOL UD 3ML (DUONEB)(J7620) NEB ×6 (03:38→23:40)
[2018-02-02 08:58] LABS: HEMATOCRIT 27.8 % (36.0-47.0); HEMOGLOBIN 9.1 g/dl (12.0-15.5); MEAN CORPUSCULAR HEMOGLOBIN 28.5 pg (27.0-33.0); MEAN CORPUSCULAR HGB CONC 32.7 g/dl (32.0-36.5); MEAN CORPUSCULAR VOLUME 87.1 fl (80.0-96.0); PLATELET COUNT, AUTOMATED 306 10^3/uL (150-450); RED BLOOD COUNT 3.19 10^6/uL (4.00-5.40); RED CELL DISTRIBUTION WIDTH 18.6 % (11.5-14.5); WHITE BLOOD COUNT 21.6 10^3/uL (4.0-10.0)
[2018-02-02] MEDS: PANTOPRAZOLE 40MG TAB (PROTONIX) PO (09:00)
[2018-02-02] MEDS: DOCUSATE SODIUM 100 MG CAP PO ×2 (09:00→20:15)
[2018-02-02] MEDS: HEPARIN SOD (PORCINE) 5000 UNITS/ML VIAL SQ ×2 (09:00→20:15)
[2018-02-02] MEDS: ATORVASTATIN 10 MG TAB PO (09:00)
[2018-02-02 09:21] LABS: ANION GAP 5 MEQ/L (8-16); BLOOD UREA NITROGEN 20 MG/DL (7-18); CALCIUM LEVEL 7.9 MG/DL (8.8-10.2); CARBON DIOXIDE LEVEL 29 MEQ/L (21-32); CHLORIDE LEVEL 105 MEQ/L (98-107); CREATININE FOR GFR 0.57 MG/DL (0.55-1.30); GLOMERULAR FILTRATION RATE > 60.0 (>32); GLUCOSE, FASTING 107 MG/DL (70-100); MAGNESIUM LEVEL 2.1 MG/DL (1.8-2.4); POTASSIUM SERUM 3.6 MEQ/L (3.5-5.1); SODIUM LEVEL 139 MEQ/L (136-145)
[2018-02-02] MEDS: predniSONE 20 MG TAB PO (11:07)
[2018-02-02] MEDS: FUROSEMIDE 20 MG TAB PO (11:07)
[2018-02-02] MEDS: ASPIRIN 81 MG ENTERIC TAB PO (11:07)
[2018-02-02] MEDS ORDERED: ISOVUE-370 76% 100ML VIAL (Q9967) As Ordered (12:23)
[2018-02-02 12:31] LABS: TOTAL PROTEIN 5.5 GM/DL (6.4-8.2)
[2018-02-02 12:31] LABS: ALBUMIN 2.7 GM/DL (3.2-5.2); C REACTIVE PROTEIN QUANTITATIV 7.26 MG/DL (0.00-0.30); PREALBUMIN 23.6 MG/DL (20.0-40.0)
[2018-02-02 13:40] LABS: ERYTHROCYTE SEDIMENTATION RATE 65 mm/hr (0-30)
[2018-02-02] MEDS: CEFEPIME HCL 2 GM in D5W MINI-BAG PLUS 50 ML IV (17:20)
[2018-02-02] MEDS: VANCOMYCIN HCL 1,000 MG, VIAL MATE ADAPTER 1 EACH in D5W 250 ML IV (20:14)
[2018-02-03 03:08] LABS: APPEARANCE, URINE CLEAR (CLEAR); BACTERIA, URINE AUTO NEGATIVE (NEGATIVE); BILIRUBIN, URINE AUTO NEGATIVE (NEGATIVE); BLOOD, URINE BLOOD 1+ (NEGATIVE); COLOR, URINE STRAW (YELLOW); GLUCOSE, URINE (UA) AUTO 3+ mg/dL (NEGATIVE); KETONE, URINE AUTO NEGATIVE (NEGATIVE); LEUKOCYTE ESTERASE, URINE AUTO NEGATIVE (NEGATIVE); NITRITE, URINE AUTO NEGATIVE (NEGATIVE); PROTEIN, URINE AUTO NEGATIVE (NEGATIVE); RBC, URINE AUTO 3 /HPF (0-3); SPECIFIC GRAVITY URINE AUTO 1.013 (1.002-1.035); SQUAMOUS EPITHELIAL CELL UR AU 0 /HPF (0-6); UROBILINOGEN, URINE AUTO 0.2 mg/dL (0.0-2.0); WBC, URINE AUTO 2 /HPF (0-3)
[2018-02-03] MEDS: IPRATROPIUM 0.5MG/ALBUTEROL 2.5MG INH SOL UD 3ML (DUONEB)(J7620) NEB ×6 (03:23→23:16)
[2018-02-03] MEDS: CEFEPIME HCL 2 GM in D5W MINI-BAG PLUS 50 ML IV ×2 (04:25→15:38)
[2018-02-03] MEDS ORDERED: VANCOMYCIN HCL 1,000 MG, VIAL MATE ADAPTER 1 EACH in D5W 250 ML IV (08:00)
[2018-02-03] MEDS: ATORVASTATIN 10 MG TAB PO (08:01)
[2018-02-03] MEDS: HEPARIN SOD (PORCINE) 5000 UNITS/ML VIAL SQ ×2 (08:02→21:00)
[2018-02-03] MEDS: PANTOPRAZOLE 40MG TAB (PROTONIX) PO (08:02)
[2018-02-03] MEDS: DOCUSATE SODIUM 100 MG CAP PO ×2 (08:03→21:00)
[2018-02-03] MEDS: VANCOMYCIN HCL 500 MG in D5W MINI-BAG PLUS 100 ML IV ×3 (09:00→21:00)
[2018-02-03] MEDS: ASPIRIN 81 MG ENTERIC TAB PO (09:34)
[2018-02-03] MEDS: FUROSEMIDE 20 MG TAB PO ×2 (09:34→09:40)
[2018-02-03] MEDS: predniSONE 20 MG TAB PO (09:35)
[2018-02-03 10:23] LABS: BASO % 0.2 % (0.0-1.0); EOS # 0.1 10^3/uL (0.0-0.50); EOS % 0.5 % (0.0-3.0); HEMATOCRIT 28.6 % (36.0-47.0); HEMOGLOBIN 9.2 g/dl (12.0-15.5); IMMATURE GRANULOCYTE % 1.3 % (0-3.0); LYMPH # 1.1 10^3/uL (1.5-4.5); LYMPH % 5.7 % (24.0-44.0); MEAN CORPUSCULAR HEMOGLOBIN 28.3 pg (27.0-33.0); MEAN CORPUSCULAR HGB CONC 32.2 g/dl (32.0-36.5); MONO # 1.1 10^3/uL (0.0-0.8); MONO % 5.7 % (0.0-5.0); NEUTROPHILS # 16.3 10^3/uL (1.8-7.7); NEUTROPHILS % 86.6 % (36.0-66.0); PLATELET COUNT, AUTOMATED 316 10^3/uL (150-450); RED BLOOD COUNT 3.25 10^6/uL (4.00-5.40); RED CELL DISTRIBUTION WIDTH 18.4 % (11.5-14.5); WHITE BLOOD COUNT 18.8 10^3/uL (4.0-10.0)
[2018-02-03 10:40] LABS: ANION GAP 7 MEQ/L (8-16); BLOOD UREA NITROGEN 21 MG/DL (7-18); CARBON DIOXIDE LEVEL 28 MEQ/L (21-32); CHLORIDE LEVEL 104 MEQ/L (98-107); CREATININE FOR GFR 0.74 MG/DL (0.55-1.30); GLOMERULAR FILTRATION RATE > 60.0 (>32); GLUCOSE, FASTING 231 MG/DL (70-100); MAGNESIUM LEVEL 2.2 MG/DL (1.8-2.4); POTASSIUM SERUM 3.6 MEQ/L (3.5-5.1); SODIUM LEVEL 139 MEQ/L (136-145)
[2018-02-03] MEDS: BUDESONIDE 0.5 MG/2 ML INHALATION SUSPENSION INH ×2 (11:23→20:50)
[2018-02-03] MEDS: guaiFENesin ER 600 MG TAB PO ×2 (11:50→21:12)
[2018-02-04] MEDS: IPRATROPIUM 0.5MG/ALBUTEROL 2.5MG INH SOL UD 3ML (DUONEB)(J7620) NEB ×6 (02:57→23:16)
[2018-02-04] MEDS: CEFEPIME HCL 2 GM in D5W MINI-BAG PLUS 50 ML IV (04:00)
[2018-02-04 06:20] LABS: BASO % 0.1 % (0.0-1.0); EOS # 0.1 10^3/uL (0.0-0.50); EOS % 0.6 % (0.0-3.0); HEMATOCRIT 25.5 % (36.0-47.0); HEMOGLOBIN 8.3 g/dl (12.0-15.5); IMMATURE GRANULOCYTE % 1.7 % (0-3.0); LYMPH # 1.4 10^3/uL (1.5-4.5); LYMPH % 9.9 % (24.0-44.0); MEAN CORPUSCULAR HEMOGLOBIN 28.4 pg (27.0-33.0); MEAN CORPUSCULAR HGB CONC 32.5 g/dl (32.0-36.5); MEAN CORPUSCULAR VOLUME 87.3 fl (80.0-96.0); MONO % 7.3 % (0.0-5.0); NEUTROPHILS # 11.5 10^3/uL (1.8-7.7); NEUTROPHILS % 80.4 % (36.0-66.0); PLATELET COUNT, AUTOMATED 297 10^3/uL (150-450); RED BLOOD COUNT 2.92 10^6/uL (4.00-5.40); RED CELL DISTRIBUTION WIDTH 18.5 % (11.5-14.5); WHITE BLOOD COUNT 14.3 10^3/uL (4.0-10.0)
[2018-02-04 06:40] LABS: ANION GAP 6 MEQ/L (8-16); BLOOD UREA NITROGEN 30 MG/DL (7-18); CALCIUM LEVEL 8.5 MG/DL (8.8-10.2); CARBON DIOXIDE LEVEL 27 MEQ/L (21-32); CHLORIDE LEVEL 109 MEQ/L (98-107); CREATININE FOR GFR 0.66 MG/DL (0.55-1.30); GLOMERULAR FILTRATION RATE > 60.0 (>32); GLUCOSE, FASTING 95 MG/DL (70-100); MAGNESIUM LEVEL 2.2 MG/DL (1.8-2.4); POTASSIUM SERUM 3.8 MEQ/L (3.5-5.1); SODIUM LEVEL 142 MEQ/L (136-145)
[2018-02-04] MEDS: DOCUSATE SODIUM 100 MG CAP PO ×2 (07:36→20:31)
[2018-02-04] MEDS: ATORVASTATIN 10 MG TAB PO (07:36)
[2018-02-04] MEDS: PANTOPRAZOLE 40MG TAB (PROTONIX) PO (07:36)
[2018-02-04] MEDS: VANCOMYCIN HCL 500 MG in D5W MINI-BAG PLUS 100 ML IV (07:37)
[2018-02-04] MEDS: HEPARIN SOD (PORCINE) 5000 UNITS/ML VIAL SQ ×2 (07:37→20:31)
[2018-02-04] MEDS: BUDESONIDE 0.5 MG/2 ML INHALATION SUSPENSION INH ×2 (08:16→20:41)
[2018-02-04] MEDS: guaiFENesin ER 600 MG TAB PO ×2 (09:26→20:30)
[2018-02-04] MEDS: predniSONE 20 MG TAB PO (09:26)
[2018-02-04] MEDS: ASPIRIN 81 MG ENTERIC TAB PO (09:26)
[2018-02-04] MEDS: LevoFLOXacin 500 MG TABLET PO (11:29)
[2018-02-05] MEDS: IPRATROPIUM 0.5MG/ALBUTEROL 2.5MG INH SOL UD 3ML (DUONEB)(J7620) NEB ×6 (04:07→23:49)
[2018-02-05] MEDS: LevoFLOXacin 500 MG TABLET PO (06:00)
[2018-02-05] MEDS: BUDESONIDE 0.5 MG/2 ML INHALATION SUSPENSION INH ×2 (08:39→20:27)
[2018-02-05] MEDS: PANTOPRAZOLE 40MG TAB (PROTONIX) PO (10:00)
[2018-02-05] MEDS: HEPARIN SOD (PORCINE) 5000 UNITS/ML VIAL SQ ×2 (10:00→21:00)
[2018-02-05] MEDS: ATORVASTATIN 10 MG TAB PO (10:00)
[2018-02-05] MEDS: DOCUSATE SODIUM 100 MG CAP PO ×2 (10:00→21:00)
[2018-02-05] MEDS: predniSONE 20 MG TAB PO (10:48)
[2018-02-05] MEDS: ASPIRIN 81 MG ENTERIC TAB PO (10:48)
[2018-02-05] MEDS: guaiFENesin ER 600 MG TAB PO ×2 (10:49→21:43)
[2018-02-05] MEDS: FUROSEMIDE 20 MG TAB PO ×2 (10:49→10:52)
[2018-02-05] MEDS: ALPRAZolam 0.25 MG TAB PO ×2 (12:21→21:43)
[2018-02-05] MEDS: FORMOTEROL FUMARATE 20 MCG/2 ML INHALATION SOLUTION (PERFOROMIST) INH (20:00)
[2018-02-06] MEDS: IPRATROPIUM 0.5MG/ALBUTEROL 2.5MG INH SOL UD 3ML (DUONEB)(J7620) NEB ×6 (04:01→23:43)
[2018-02-06] MEDS: LevoFLOXacin 500 MG TABLET PO (05:21)
[2018-02-06 06:25] LABS: BASO % 0.2 % (0.0-1.0); EOS # 0.1 10^3/uL (0.0-0.50); EOS % 0.6 % (0.0-3.0); HEMATOCRIT 28.7 % (36.0-47.0); HEMOGLOBIN 9.1 g/dl (12.0-15.5); IMMATURE GRANULOCYTE % 2.8 % (0-3.0); LYMPH # 1.5 10^3/uL (1.5-4.5); MEAN CORPUSCULAR HEMOGLOBIN 27.6 pg (27.0-33.0); MEAN CORPUSCULAR HGB CONC 31.7 g/dl (32.0-36.5); MONO % 7.8 % (0.0-5.0); NEUTROPHILS # 9.7 10^3/uL (1.8-7.7); NEUTROPHILS % 76.6 % (36.0-66.0); PLATELET COUNT, AUTOMATED 316 10^3/uL (150-450); RED CELL DISTRIBUTION WIDTH 18.6 % (11.5-14.5); WHITE BLOOD COUNT 12.7 10^3/uL (4.0-10.0)
[2018-02-06 06:40] LABS: ANION GAP 3 MEQ/L (8-16); BLOOD UREA NITROGEN 20 MG/DL (7-18); CALCIUM LEVEL 8.6 MG/DL (8.8-10.2); CARBON DIOXIDE LEVEL 30 MEQ/L (21-32); CHLORIDE LEVEL 109 MEQ/L (98-107); CREATININE FOR GFR 0.58 MG/DL (0.55-1.30); GLOMERULAR FILTRATION RATE > 60.0 (>32); GLUCOSE, FASTING 66 MG/DL (70-100); POTASSIUM SERUM 4.2 MEQ/L (3.5-5.1); SODIUM LEVEL 142 MEQ/L (136-145)
[2018-02-06] MEDS: FORMOTEROL FUMARATE 20 MCG/2 ML INHALATION SOLUTION (PERFOROMIST) INH ×2 (07:09→19:28)
[2018-02-06] MEDS: BUDESONIDE 0.5 MG/2 ML INHALATION SUSPENSION INH ×2 (07:09→19:28)
[2018-02-06] MEDS: ALPRAZolam 0.25 MG TAB PO (08:02)
[2018-02-06] MEDS: ATORVASTATIN 10 MG TAB PO ×2 (09:00→10:33)
[2018-02-06] MEDS: ALBUTEROL SULFATE 2.5 MG/0.5 ML INH NEB SOLN INH ×2 (09:44→16:00)
[2018-02-06] MEDS: guaiFENesin ER 600 MG TAB PO ×3 (10:32→21:49)
[2018-02-06] MEDS: PANTOPRAZOLE 40MG TAB (PROTONIX) PO ×2 (10:32→10:44)
[2018-02-06] MEDS: FUROSEMIDE 20 MG TAB PO (10:33)
[2018-02-06] MEDS: predniSONE 10 MG TAB PO (10:33)
[2018-02-06] MEDS: DOCUSATE SODIUM 100 MG CAP PO ×3 (10:33→21:00)
[2018-02-06] MEDS: ASPIRIN 81 MG ENTERIC TAB PO (10:33)
[2018-02-06] MEDS: HEPARIN SOD (PORCINE) 5000 UNITS/ML VIAL SQ ×2 (10:44→21:00)
[2018-02-06 11:58] LABS: BEDSIDE GLUCOSE 213 MG/DL (83-110)
[2018-02-07] MEDS: IPRATROPIUM 0.5MG/ALBUTEROL 2.5MG INH SOL UD 3ML (DUONEB)(J7620) NEB ×6 (03:25→23:48)
[2018-02-07] MEDS: LevoFLOXacin 500 MG TABLET PO (06:06)
[2018-02-07 06:07] LABS: BASO # 0.1 10^3/uL (0.0-0.2); BASO % 0.4 % (0.0-1.0); EOS # 0.1 10^3/uL (0.0-0.50); EOS % 0.5 % (0.0-3.0); HEMATOCRIT 28.3 % (36.0-47.0); HEMOGLOBIN 9.1 g/dl (12.0-15.5); IMMATURE GRANULOCYTE % 3.7 % (0-3.0); LYMPH # 1.5 10^3/uL (1.5-4.5); LYMPH % 12.2 % (24.0-44.0); MEAN CORPUSCULAR HEMOGLOBIN 28.4 pg (27.0-33.0); MEAN CORPUSCULAR HGB CONC 32.2 g/dl (32.0-36.5); MEAN CORPUSCULAR VOLUME 88.4 fl (80.0-96.0); MONO # 0.9 10^3/uL (0.0-0.8); MONO % 7.3 % (0.0-5.0); NEUTROPHILS # 9.3 10^3/uL (1.8-7.7); NEUTROPHILS % 75.9 % (36.0-66.0); PLATELET COUNT, AUTOMATED 294 10^3/uL (150-450); RED CELL DISTRIBUTION WIDTH 18.8 % (11.5-14.5); WHITE BLOOD COUNT 12.3 10^3/uL (4.0-10.0)
[2018-02-07 06:26] LABS: ANION GAP 7 MEQ/L (8-16); BLOOD UREA NITROGEN 26 MG/DL (7-18); CALCIUM LEVEL 8.3 MG/DL (8.8-10.2); CARBON DIOXIDE LEVEL 28 MEQ/L (21-32); CHLORIDE LEVEL 107 MEQ/L (98-107); CREATININE FOR GFR 0.66 MG/DL (0.55-1.30); GLOMERULAR FILTRATION RATE > 60.0 (>32); GLUCOSE, FASTING 79 MG/DL (70-100); POTASSIUM SERUM 4.2 MEQ/L (3.5-5.1); SODIUM LEVEL 142 MEQ/L (136-145)
[2018-02-07] MEDS: BUDESONIDE 0.5 MG/2 ML INHALATION SUSPENSION INH ×2 (07:59→20:00)
[2018-02-07] MEDS: FORMOTEROL FUMARATE 20 MCG/2 ML INHALATION SOLUTION (PERFOROMIST) INH ×2 (07:59→20:00)
[2018-02-07] MEDS: predniSONE 10 MG TAB PO ×2 (10:04→11:11)
[2018-02-07] MEDS: DOCUSATE SODIUM 100 MG CAP PO ×2 (10:04→20:37)
[2018-02-07] MEDS: guaiFENesin ER 600 MG TAB PO ×2 (10:05→21:00)
[2018-02-07] MEDS: FUROSEMIDE 20 MG TAB PO ×2 (10:05→11:11)
[2018-02-07] MEDS: ATORVASTATIN 10 MG TAB PO (10:05)
[2018-02-07] MEDS: PANTOPRAZOLE 40MG TAB (PROTONIX) PO (10:05)
[2018-02-07] MEDS: ASPIRIN 81 MG ENTERIC TAB PO ×2 (10:05→11:58)
[2018-02-07] MEDS: HEPARIN SOD (PORCINE) 5000 UNITS/ML VIAL SQ ×2 (10:06→20:37)
[2018-02-07] MEDS: ALPRAZolam 0.25 MG TAB PO (11:58)
[2018-02-08] MEDS: IPRATROPIUM 0.5MG/ALBUTEROL 2.5MG INH SOL UD 3ML (DUONEB)(J7620) NEB ×5 (03:15→20:00)
[2018-02-08 06:02] LABS: HEMATOCRIT 27.2 % (36.0-47.0); HEMOGLOBIN 8.7 g/dl (12.0-15.5); MEAN CORPUSCULAR HEMOGLOBIN 27.6 pg (27.0-33.0); MEAN CORPUSCULAR VOLUME 86.3 fl (80.0-96.0); PLATELET COUNT, AUTOMATED 324 10^3/uL (150-450); RED BLOOD COUNT 3.15 10^6/uL (4.00-5.40); RED CELL DISTRIBUTION WIDTH 18.6 % (11.5-14.5); WHITE BLOOD COUNT 12.9 10^3/uL (4.0-10.0)
[2018-02-08] MEDS: LevoFLOXacin 500 MG TABLET PO (06:11)
[2018-02-08 06:17] LABS: ANION GAP 6 MEQ/L (8-16); BLOOD UREA NITROGEN 31 MG/DL (7-18); CALCIUM LEVEL 8.7 MG/DL (8.8-10.2); CARBON DIOXIDE LEVEL 29 MEQ/L (21-32); CHLORIDE LEVEL 106 MEQ/L (98-107); CREATININE FOR GFR 0.72 MG/DL (0.55-1.30); GLOMERULAR FILTRATION RATE > 60.0 (>32); GLUCOSE, FASTING 106 MG/DL (70-100); POTASSIUM SERUM 3.9 MEQ/L (3.5-5.1); SODIUM LEVEL 141 MEQ/L (136-145)
[2018-02-08] MEDS: FORMOTEROL FUMARATE 20 MCG/2 ML INHALATION SOLUTION (PERFOROMIST) INH ×2 (07:41→20:53)
[2018-02-08] MEDS: BUDESONIDE 0.5 MG/2 ML INHALATION SUSPENSION INH ×2 (07:41→20:53)
[2018-02-08] MEDS: DOCUSATE SODIUM 100 MG CAP PO ×2 (08:18→20:12)
[2018-02-08] MEDS: ATORVASTATIN 10 MG TAB PO (08:19)
[2018-02-08] MEDS: PANTOPRAZOLE 40MG TAB (PROTONIX) PO (08:19)
[2018-02-08] MEDS: FUROSEMIDE 20 MG TAB PO (08:19)
[2018-02-08] MEDS: HEPARIN SOD (PORCINE) 5000 UNITS/ML VIAL SQ ×2 (08:19→20:12)
[2018-02-08] MEDS: guaiFENesin ER 600 MG TAB PO ×2 (08:24→20:18)
[2018-02-08] MEDS: predniSONE 10 MG TAB PO (08:24)
[2018-02-09] MEDS: ALBUTEROL SULFATE 2.5 MG/0.5 ML INH NEB SOLN INH (01:28)
[2018-02-09] MEDS: IPRATROPIUM 0.5MG/ALBUTEROL 2.5MG INH SOL UD 3ML (DUONEB)(J7620) NEB ×7 (04:00→23:17)
[2018-02-09] MEDS: LevoFLOXacin 500 MG TABLET PO (05:56)
[2018-02-09] MEDS: BUDESONIDE 0.5 MG/2 ML INHALATION SUSPENSION INH ×2 (07:20→19:21)
[2018-02-09] MEDS: FORMOTEROL FUMARATE 20 MCG/2 ML INHALATION SOLUTION (PERFOROMIST) INH ×2 (07:20→19:21)
[2018-02-09] MEDS: HEPARIN SOD (PORCINE) 5000 UNITS/ML VIAL SQ (08:46)
[2018-02-09] MEDS: DOCUSATE SODIUM 100 MG CAP PO ×2 (08:46→21:00)
[2018-02-09] MEDS: PANTOPRAZOLE 40MG TAB (PROTONIX) PO (08:46)
[2018-02-09] MEDS: ATORVASTATIN 10 MG TAB PO (08:47)
[2018-02-09] MEDS: FUROSEMIDE 20 MG TAB PO (08:58)
[2018-02-09] MEDS: ASPIRIN 81 MG ENTERIC TAB PO (09:00)
[2018-02-09] MEDS: guaiFENesin ER 600 MG TAB PO ×2 (09:01→20:15)
[2018-02-09] MEDS: predniSONE 20 MG TAB PO (09:01)
[2018-02-10] MEDS: IPRATROPIUM 0.5MG/ALBUTEROL 2.5MG INH SOL UD 3ML (DUONEB)(J7620) NEB ×6 (04:25→23:15)
[2018-02-10] MEDS: LevoFLOXacin 500 MG TABLET PO (06:07)
[2018-02-10] MEDS: BUDESONIDE 0.5 MG/2 ML INHALATION SUSPENSION INH ×2 (07:30→20:12)
[2018-02-10] MEDS: FORMOTEROL FUMARATE 20 MCG/2 ML INHALATION SOLUTION (PERFOROMIST) INH ×2 (07:30→20:13)
[2018-02-10] MEDS: guaiFENesin ER 600 MG TAB PO ×2 (09:16→19:57)
[2018-02-10] MEDS: predniSONE 20 MG TAB PO (09:16)
[2018-02-10] MEDS: ASPIRIN 81 MG ENTERIC TAB PO (09:16)
[2018-02-10] MEDS: PANTOPRAZOLE 40MG TAB (PROTONIX) PO (09:18)
[2018-02-10] MEDS: ATORVASTATIN 10 MG TAB PO (09:18)
[2018-02-10] MEDS: FUROSEMIDE 20 MG TAB PO (09:18)
[2018-02-10] MEDS: DOCUSATE SODIUM 100 MG CAP PO ×2 (09:18→19:57)
[2018-02-11] MEDS: IPRATROPIUM 0.5MG/ALBUTEROL 2.5MG INH SOL UD 3ML (DUONEB)(J7620) NEB ×6 (03:02→23:03)
[2018-02-11] MEDS: BUDESONIDE 0.5 MG/2 ML INHALATION SUSPENSION INH ×2 (09:45→20:23)
[2018-02-11] MEDS: FORMOTEROL FUMARATE 20 MCG/2 ML INHALATION SOLUTION (PERFOROMIST) INH ×2 (09:45→20:23)
[2018-02-11] MEDS: ATORVASTATIN 10 MG TAB PO (10:00)
[2018-02-11] MEDS: FUROSEMIDE 20 MG TAB PO ×2 (10:00→10:33)
[2018-02-11] MEDS: PANTOPRAZOLE 40MG TAB (PROTONIX) PO (10:00)
[2018-02-11] MEDS: DOCUSATE SODIUM 100 MG CAP PO ×2 (10:00→20:54)
[2018-02-11] MEDS: predniSONE 20 MG TAB PO (10:21)
[2018-02-11] MEDS: guaiFENesin ER 600 MG TAB PO ×2 (10:21→20:46)
[2018-02-11] MEDS: ASPIRIN 81 MG ENTERIC TAB PO (10:21)
[2018-02-11] MEDS: ALBUTEROL SULFATE 2.5 MG/0.5 ML INH NEB SOLN INH (13:35)
[2018-02-12] MEDS: IPRATROPIUM 0.5MG/ALBUTEROL 2.5MG INH SOL UD 3ML (DUONEB)(J7620) NEB ×5 (02:40→20:36)
[2018-02-12] MEDS: BUDESONIDE 0.5 MG/2 ML INHALATION SUSPENSION INH ×2 (08:01→20:00)
[2018-02-12] MEDS: FORMOTEROL FUMARATE 20 MCG/2 ML INHALATION SOLUTION (PERFOROMIST) INH ×2 (08:01→20:00)
[2018-02-12] MEDS: ATORVASTATIN 10 MG TAB PO (10:00)
[2018-02-12] MEDS: FUROSEMIDE 20 MG TAB PO (10:00)
[2018-02-12] MEDS: PANTOPRAZOLE 40MG TAB (PROTONIX) PO (10:00)
[2018-02-12] MEDS: DOCUSATE SODIUM 100 MG CAP PO ×2 (10:00→20:43)
[2018-02-12] MEDS: predniSONE 10 MG TAB PO (10:22)
[2018-02-12] MEDS: ASPIRIN 81 MG ENTERIC TAB PO (10:23)
[2018-02-12] MEDS: guaiFENesin ER 600 MG TAB PO ×2 (10:23→20:22)
[2018-02-13] MEDS: IPRATROPIUM 0.5MG/ALBUTEROL 2.5MG INH SOL UD 3ML (DUONEB)(J7620) NEB ×6 (00:03→20:00)
[2018-02-13] MEDS: BUDESONIDE 0.5 MG/2 ML INHALATION SUSPENSION INH ×2 (08:06→21:04)
[2018-02-13] MEDS: FORMOTEROL FUMARATE 20 MCG/2 ML INHALATION SOLUTION (PERFOROMIST) INH ×2 (08:06→21:04)
[2018-02-13] MEDS: DOCUSATE SODIUM 100 MG CAP PO ×2 (09:02→21:17)
[2018-02-13] MEDS: FUROSEMIDE 20 MG TAB PO (09:02)
[2018-02-13] MEDS: ATORVASTATIN 10 MG TAB PO (09:03)
[2018-02-13] MEDS: guaiFENesin ER 600 MG TAB PO ×2 (09:03→21:31)
[2018-02-13] MEDS: PANTOPRAZOLE 40MG TAB (PROTONIX) PO (09:03)
[2018-02-13] MEDS: ASPIRIN 81 MG ENTERIC TAB PO (09:06)
[2018-02-13] MEDS: predniSONE 10 MG TAB PO (09:06)
[2018-02-14] MEDS: IPRATROPIUM 0.5MG/ALBUTEROL 2.5MG INH SOL UD 3ML (DUONEB)(J7620) NEB ×6 (00:53→20:00)
[2018-02-14] MEDS: FORMOTEROL FUMARATE 20 MCG/2 ML INHALATION SOLUTION (PERFOROMIST) INH ×2 (08:40→19:29)
[2018-02-14] MEDS: BUDESONIDE 0.5 MG/2 ML INHALATION SUSPENSION INH ×2 (08:40→19:29)
[2018-02-14] MEDS: ATORVASTATIN 10 MG TAB PO (09:00)
[2018-02-14] MEDS: PANTOPRAZOLE 40MG TAB (PROTONIX) PO (09:00)
[2018-02-14] MEDS: DOCUSATE SODIUM 100 MG CAP PO ×2 (09:00→20:33)
[2018-02-14] MEDS: guaiFENesin ER 600 MG TAB PO ×2 (09:27→20:33)
[2018-02-14] MEDS: predniSONE 10 MG TAB PO (09:27)
[2018-02-14] MEDS: FUROSEMIDE 20 MG TAB PO (09:27)
[2018-02-14] MEDS: ASPIRIN 81 MG ENTERIC TAB PO (09:27)
[2018-02-14 10:22] LABS: BASO % 0.4 % (0.0-1.0); EOS # 0.2 10^3/uL (0.0-0.50); EOS % 1.4 % (0.0-3.0); HEMATOCRIT 29.9 % (36.0-47.0); HEMOGLOBIN 9.3 g/dl (12.0-15.5); IMMATURE GRANULOCYTE % 4.6 % (0-3.0); LYMPH # 1.9 10^3/uL (1.5-4.5); LYMPH % 18.1 % (24.0-44.0); MEAN CORPUSCULAR HEMOGLOBIN 27.5 pg (27.0-33.0); MEAN CORPUSCULAR HGB CONC 31.1 g/dl (32.0-36.5); MEAN CORPUSCULAR VOLUME 88.5 fl (80.0-96.0); MONO # 0.6 10^3/uL (0.0-0.8); MONO % 5.7 % (0.0-5.0); NEUTROPHILS # 7.4 10^3/uL (1.8-7.7); NEUTROPHILS % 69.8 % (36.0-66.0); PLATELET COUNT, AUTOMATED 354 10^3/uL (150-450); RED BLOOD COUNT 3.38 10^6/uL (4.00-5.40); RED CELL DISTRIBUTION WIDTH 18.6 % (11.5-14.5); WHITE BLOOD COUNT 10.6 10^3/uL (4.0-10.0)
[2018-02-14 10:53] LABS: ALBUMIN/GLOBULIN RATIO 0.88 (1.00-1.93); ALKALINE PHOSPHATASE 65 U/L (45-117); ALT/SGPT 34 U/L (12-78); ANION GAP 5 MEQ/L (8-16); AST/SGOT 26 U/L (7-37); BILIRUBIN,TOTAL 0.4 MG/DL (0.2-1.0); BLOOD UREA NITROGEN 22 MG/DL (7-18); CALCIUM LEVEL 8.3 MG/DL (8.8-10.2); CARBON DIOXIDE LEVEL 32 MEQ/L (21-32); CHLORIDE LEVEL 106 MEQ/L (98-107); CK-MB VALUE MASS 4.3 NG/ML (<3.6); CPK CREATINE PHOSPHOKINASE 87 U/L (26-192); CREATININE FOR GFR 0.65 MG/DL (0.55-1.30); GLOMERULAR FILTRATION RATE > 60.0 (>32); GLUCOSE, FASTING 134 MG/DL (70-100); MB/CK RELATIVE INDEX 4.94 (< OR =4); POTASSIUM SERUM 4.2 MEQ/L (3.5-5.1); SODIUM LEVEL 143 MEQ/L (136-145); TOTAL PROTEIN 6.4 GM/DL (6.4-8.2); TROPONIN I < 0.02 NG/ML (< 0.10)
[2018-02-14 16:24] LABS: CK-MB VALUE MASS 4.2 NG/ML (<3.6); CPK CREATINE PHOSPHOKINASE 96 U/L (26-192); MB/CK RELATIVE INDEX 4.37 (< OR =4); TROPONIN I < 0.02 NG/ML (< 0.10)
[2018-02-14 22:51] LABS: CPK CREATINE PHOSPHOKINASE 97 U/L (26-192); TROPONIN I < 0.02 NG/ML (< 0.10)
[2018-02-14 22:52] LABS: CK-MB VALUE MASS 3.5 NG/ML (<3.6)
[2018-02-15] MEDS: IPRATROPIUM 0.5MG/ALBUTEROL 2.5MG INH SOL UD 3ML (DUONEB)(J7620) NEB ×7 (00:12→23:56)
[2018-02-15] MEDS: PANTOPRAZOLE 40MG TAB (PROTONIX) PO (07:38)
[2018-02-15] MEDS: DOCUSATE SODIUM 100 MG CAP PO ×2 (07:38→20:52)
[2018-02-15] MEDS: ATORVASTATIN 10 MG TAB PO (07:38)
[2018-02-15] MEDS: FORMOTEROL FUMARATE 20 MCG/2 ML INHALATION SOLUTION (PERFOROMIST) INH ×2 (08:00→21:02)
[2018-02-15] MEDS: BUDESONIDE 0.5 MG/2 ML INHALATION SUSPENSION INH ×2 (08:00→21:02)
[2018-02-15] MEDS: guaiFENesin ER 600 MG TAB PO ×2 (09:01→20:25)
[2018-02-15] MEDS: predniSONE 10 MG TAB PO (09:01)
[2018-02-15] MEDS: ASPIRIN 81 MG ENTERIC TAB PO (09:01)
[2018-02-15] MEDS: FUROSEMIDE 20 MG TAB PO (09:01)
[2018-02-15] MEDS: FUROSEMIDE 40 MG/4 ML VIAL (J1940) IV (13:30)
[2018-02-15] MEDS: FUROSEMIDE 40 MG TAB PO (14:00)
[2018-02-16] MEDS: IPRATROPIUM 0.5MG/ALBUTEROL 2.5MG INH SOL UD 3ML (DUONEB)(J7620) NEB ×5 (04:00→20:00)
[2018-02-16] MEDS: DOCUSATE SODIUM 100 MG CAP PO ×2 (07:48→20:58)
[2018-02-16] MEDS: PANTOPRAZOLE 40MG TAB (PROTONIX) PO (07:49)
[2018-02-16] MEDS: ATORVASTATIN 10 MG TAB PO (07:49)
[2018-02-16] MEDS: FORMOTEROL FUMARATE 20 MCG/2 ML INHALATION SOLUTION (PERFOROMIST) INH ×2 (08:14→20:40)
[2018-02-16] MEDS: BUDESONIDE 0.5 MG/2 ML INHALATION SUSPENSION INH ×2 (08:14→20:40)
[2018-02-16] MEDS: ASPIRIN 81 MG ENTERIC TAB PO (09:14)
[2018-02-16] MEDS: predniSONE 10 MG TAB PO (09:14)
[2018-02-16] MEDS: guaiFENesin ER 600 MG TAB PO ×2 (09:14→20:34)
[2018-02-16] MEDS: FUROSEMIDE 40 MG TAB PO ×2 (09:15→15:47)
[2018-02-17] MEDS: IPRATROPIUM 0.5MG/ALBUTEROL 2.5MG INH SOL UD 3ML (DUONEB)(J7620) NEB ×7 (00:36→23:44)
[2018-02-17] MEDS: ALBUTEROL SULFATE 2.5 MG/0.5 ML INH NEB SOLN INH (05:37)
[2018-02-17] MEDS: BUDESONIDE 0.5 MG/2 ML INHALATION SUSPENSION INH ×2 (08:06→21:00)
[2018-02-17] MEDS: FORMOTEROL FUMARATE 20 MCG/2 ML INHALATION SOLUTION (PERFOROMIST) INH ×2 (08:07→21:00)
[2018-02-17] MEDS: PANTOPRAZOLE 40MG TAB (PROTONIX) PO (09:00)
[2018-02-17] MEDS: DOCUSATE SODIUM 100 MG CAP PO ×2 (09:00→20:43)
[2018-02-17] MEDS: guaiFENesin ER 600 MG TAB PO ×2 (09:00→20:42)
[2018-02-17] MEDS: FUROSEMIDE 40 MG TAB PO ×2 (09:00→16:00)
[2018-02-17] MEDS: ASPIRIN 81 MG ENTERIC TAB PO (09:47)
[2018-02-17] MEDS: ATORVASTATIN 10 MG TAB PO (09:47)
[2018-02-17] MEDS: predniSONE 10 MG TAB PO (09:47)
[2018-02-17 10:41] LABS: ANION GAP 5 MEQ/L (8-16); BLOOD UREA NITROGEN 23 MG/DL (7-18); CALCIUM LEVEL 8.3 MG/DL (8.8-10.2); CARBON DIOXIDE LEVEL 33 MEQ/L (21-32); CHLORIDE LEVEL 102 MEQ/L (98-107); CREATININE FOR GFR 0.69 MG/DL (0.55-1.30); GLOMERULAR FILTRATION RATE > 60.0 (>32); GLUCOSE, FASTING 157 MG/DL (70-100); MAGNESIUM LEVEL 2.1 MG/DL (1.8-2.4); POTASSIUM SERUM 3.7 MEQ/L (3.5-5.1); SODIUM LEVEL 140 MEQ/L (136-145)
[2018-02-18] MEDS: IPRATROPIUM 0.5MG/ALBUTEROL 2.5MG INH SOL UD 3ML (DUONEB)(J7620) NEB ×5 (04:46→20:00)
[2018-02-18] MEDS: BUDESONIDE 0.5 MG/2 ML INHALATION SUSPENSION INH ×2 (08:13→20:32)
[2018-02-18] MEDS: FORMOTEROL FUMARATE 20 MCG/2 ML INHALATION SOLUTION (PERFOROMIST) INH ×2 (08:13→20:32)
[2018-02-18] MEDS: predniSONE 10 MG TAB PO (09:46)
[2018-02-18] MEDS: ATORVASTATIN 10 MG TAB PO (09:46)
[2018-02-18] MEDS: FUROSEMIDE 40 MG TAB PO ×2 (09:46→15:14)
[2018-02-18] MEDS: ASPIRIN 81 MG ENTERIC TAB PO (09:46)
[2018-02-18] MEDS: PANTOPRAZOLE 40MG TAB (PROTONIX) PO (09:48)
[2018-02-18] MEDS: guaiFENesin ER 600 MG TAB PO ×3 (09:48→21:00)
[2018-02-18] MEDS: DOCUSATE SODIUM 100 MG CAP PO ×2 (09:48→21:00)
[2018-02-19] MEDS: IPRATROPIUM 0.5MG/ALBUTEROL 2.5MG INH SOL UD 3ML (DUONEB)(J7620) NEB ×7 (00:09→23:31)
[2018-02-19] MEDS: FORMOTEROL FUMARATE 20 MCG/2 ML INHALATION SOLUTION (PERFOROMIST) INH ×2 (07:24→20:54)
[2018-02-19] MEDS: BUDESONIDE 0.5 MG/2 ML INHALATION SUSPENSION INH ×2 (07:24→20:54)
[2018-02-19 08:11] LABS: ANION GAP 5 MEQ/L (8-16); BLOOD UREA NITROGEN 27 MG/DL (7-18); CALCIUM LEVEL 8.6 MG/DL (8.8-10.2); CARBON DIOXIDE LEVEL 34 MEQ/L (21-32); CHLORIDE LEVEL 102 MEQ/L (98-107); CREATININE FOR GFR 0.78 MG/DL (0.55-1.30); GLOMERULAR FILTRATION RATE > 60.0 (>32); GLUCOSE, FASTING 92 MG/DL (70-100); MAGNESIUM LEVEL 2.3 MG/DL (1.8-2.4); SODIUM LEVEL 141 MEQ/L (136-145)
[2018-02-19] MEDS: guaiFENesin ER 600 MG TAB PO ×2 (08:41→20:21)
[2018-02-19] MEDS: predniSONE 10 MG TAB PO (08:41)
[2018-02-19] MEDS: FUROSEMIDE 40 MG TAB PO ×2 (08:41→16:30)
[2018-02-19] MEDS: ASPIRIN 81 MG ENTERIC TAB PO (08:42)
[2018-02-19] MEDS: DOCUSATE SODIUM 100 MG CAP PO ×2 (08:43→21:00)
[2018-02-19] MEDS: ATORVASTATIN 10 MG TAB PO (08:44)
[2018-02-19] MEDS: PANTOPRAZOLE 40MG TAB (PROTONIX) PO (08:44)
[2018-02-20] MEDS: IPRATROPIUM 0.5MG/ALBUTEROL 2.5MG INH SOL UD 3ML (DUONEB)(J7620) NEB ×5 (03:24→20:00)
[2018-02-20] MEDS: FORMOTEROL FUMARATE 20 MCG/2 ML INHALATION SOLUTION (PERFOROMIST) INH ×2 (07:14→21:46)
[2018-02-20] MEDS: BUDESONIDE 0.5 MG/2 ML INHALATION SUSPENSION INH ×2 (07:14→21:45)
[2018-02-20] MEDS: guaiFENesin ER 600 MG TAB PO ×2 (09:53→21:16)
[2018-02-20] MEDS: predniSONE 10 MG TAB PO (09:53)
[2018-02-20] MEDS: ASPIRIN 81 MG ENTERIC TAB PO (09:53)
[2018-02-20] MEDS: FUROSEMIDE 40 MG TAB PO ×2 (09:54→16:55)
[2018-02-20] MEDS: DOCUSATE SODIUM 100 MG CAP PO ×2 (09:54→21:00)
[2018-02-20] MEDS: ATORVASTATIN 10 MG TAB PO (09:55)
[2018-02-20] MEDS: PANTOPRAZOLE 40MG TAB (PROTONIX) PO (09:55)
[2018-02-21] MEDS: IPRATROPIUM 0.5MG/ALBUTEROL 2.5MG INH SOL UD 3ML (DUONEB)(J7620) NEB ×7 (00:40→23:53)
[2018-02-21] MEDS: BUDESONIDE 0.5 MG/2 ML INHALATION SUSPENSION INH ×2 (07:32→20:22)
[2018-02-21] MEDS: FORMOTEROL FUMARATE 20 MCG/2 ML INHALATION SOLUTION (PERFOROMIST) INH ×2 (07:32→20:22)
[2018-02-21] MEDS: ATORVASTATIN 10 MG TAB PO (09:54)
[2018-02-21] MEDS: DOCUSATE SODIUM 100 MG CAP PO ×2 (09:54→21:00)
[2018-02-21] MEDS: guaiFENesin ER 600 MG TAB PO ×2 (09:55→21:00)
[2018-02-21] MEDS: PANTOPRAZOLE 40MG TAB (PROTONIX) PO (09:55)
[2018-02-21] MEDS: predniSONE 10 MG TAB PO (09:57)
[2018-02-21] MEDS: ASPIRIN 81 MG ENTERIC TAB PO (09:58)
[2018-02-21] MEDS: FUROSEMIDE 40 MG TAB PO ×2 (09:58→16:17)
[2018-02-22] MEDS: IPRATROPIUM 0.5MG/ALBUTEROL 2.5MG INH SOL UD 3ML (DUONEB)(J7620) NEB ×6 (04:39→23:13)
[2018-02-22] MEDS: FORMOTEROL FUMARATE 20 MCG/2 ML INHALATION SOLUTION (PERFOROMIST) INH ×2 (07:13→19:32)
[2018-02-22] MEDS: BUDESONIDE 0.5 MG/2 ML INHALATION SUSPENSION INH ×2 (07:13→19:32)
[2018-02-22] MEDS: DOCUSATE SODIUM 100 MG CAP PO ×2 (07:27→21:00)
[2018-02-22] MEDS: PANTOPRAZOLE 40MG TAB (PROTONIX) PO (07:27)
[2018-02-22] MEDS: ATORVASTATIN 10 MG TAB PO (09:00)
[2018-02-22] MEDS: FUROSEMIDE 40 MG TAB PO ×2 (09:00→16:00)
[2018-02-22] MEDS: predniSONE 10 MG TAB PO (09:39)
[2018-02-22] MEDS: ASPIRIN 81 MG ENTERIC TAB PO (09:39)
[2018-02-22] MEDS: guaiFENesin ER 600 MG TAB PO ×2 (09:39→21:00)
[2018-02-23] MEDS: IPRATROPIUM 0.5MG/ALBUTEROL 2.5MG INH SOL UD 3ML (DUONEB)(J7620) NEB ×7 (02:26→23:29)
[2018-02-23] MEDS: FORMOTEROL FUMARATE 20 MCG/2 ML INHALATION SOLUTION (PERFOROMIST) INH ×2 (07:15→20:21)
[2018-02-23] MEDS: BUDESONIDE 0.5 MG/2 ML INHALATION SUSPENSION INH ×2 (07:15→20:21)
[2018-02-23] MEDS: predniSONE 10 MG TAB PO (09:00)
[2018-02-23] MEDS: DOCUSATE SODIUM 100 MG CAP PO ×2 (09:00→20:16)
[2018-02-23] MEDS: FUROSEMIDE 40 MG TAB PO ×2 (09:00→16:00)
[2018-02-23] MEDS: PANTOPRAZOLE 40MG TAB (PROTONIX) PO (09:00)
[2018-02-23] MEDS: guaiFENesin ER 600 MG TAB PO ×2 (09:00→20:16)
[2018-02-23] MEDS: ASPIRIN 81 MG ENTERIC TAB PO (09:00)
[2018-02-23] MEDS: ATORVASTATIN 10 MG TAB PO (09:00)
[2018-02-24] MEDS: IPRATROPIUM 0.5MG/ALBUTEROL 2.5MG INH SOL UD 3ML (DUONEB)(J7620) NEB ×5 (04:18→19:28)
[2018-02-24] MEDS: BUDESONIDE 0.5 MG/2 ML INHALATION SUSPENSION INH ×2 (07:48→19:52)
[2018-02-24] MEDS: FORMOTEROL FUMARATE 20 MCG/2 ML INHALATION SOLUTION (PERFOROMIST) INH ×2 (07:48→19:52)
[2018-02-24] MEDS: ASPIRIN 81 MG ENTERIC TAB PO (08:42)
[2018-02-24] MEDS: FUROSEMIDE 40 MG TAB PO ×2 (08:42→16:28)
[2018-02-24] MEDS: predniSONE 10 MG TAB PO (08:42)
[2018-02-24] MEDS: guaiFENesin ER 600 MG TAB PO ×2 (08:43→20:33)
[2018-02-24] MEDS: PANTOPRAZOLE 40MG TAB (PROTONIX) PO (08:43)
[2018-02-24] MEDS: ATORVASTATIN 10 MG TAB PO (08:43)
[2018-02-24] MEDS: DOCUSATE SODIUM 100 MG CAP PO ×2 (08:43→20:33)
[2018-02-25] MEDS: IPRATROPIUM 0.5MG/ALBUTEROL 2.5MG INH SOL UD 3ML (DUONEB)(J7620) NEB ×7 (00:04→23:45)
[2018-02-25] MEDS: FORMOTEROL FUMARATE 20 MCG/2 ML INHALATION SOLUTION (PERFOROMIST) INH ×2 (07:33→19:46)
[2018-02-25] MEDS: BUDESONIDE 0.5 MG/2 ML INHALATION SUSPENSION INH ×2 (07:33→19:46)
[2018-02-25] MEDS: predniSONE 10 MG TAB PO (09:33)
[2018-02-25] MEDS: FUROSEMIDE 40 MG TAB PO ×2 (09:34→16:55)
[2018-02-25] MEDS: ASPIRIN 81 MG ENTERIC TAB PO (09:34)
[2018-02-25] MEDS: guaiFENesin ER 600 MG TAB PO ×2 (09:34→21:00)
[2018-02-25] MEDS: PANTOPRAZOLE 40MG TAB (PROTONIX) PO (09:46)
[2018-02-25] MEDS: DOCUSATE SODIUM 100 MG CAP PO ×2 (09:46→19:28)
[2018-02-25] MEDS: ATORVASTATIN 10 MG TAB PO (09:46)
[2018-02-26] MEDS: IPRATROPIUM 0.5MG/ALBUTEROL 2.5MG INH SOL UD 3ML (DUONEB)(J7620) NEB ×6 (03:22→23:55)
[2018-02-26] MEDS: FORMOTEROL FUMARATE 20 MCG/2 ML INHALATION SOLUTION (PERFOROMIST) INH ×2 (08:21→19:40)
[2018-02-26] MEDS: BUDESONIDE 0.5 MG/2 ML INHALATION SUSPENSION INH ×2 (08:21→19:40)
[2018-02-26] MEDS: ASPIRIN 81 MG ENTERIC TAB PO (08:31)
[2018-02-26] MEDS: predniSONE 10 MG TAB PO (08:31)
[2018-02-26] MEDS: ATORVASTATIN 10 MG TAB PO (08:33)
[2018-02-26] MEDS: DOCUSATE SODIUM 100 MG CAP PO ×2 (08:33→21:00)
[2018-02-26] MEDS: guaiFENesin ER 600 MG TAB PO ×2 (08:33→21:00)
[2018-02-26] MEDS: PANTOPRAZOLE 40MG TAB (PROTONIX) PO (08:33)
[2018-02-26] MEDS: FUROSEMIDE 40 MG TAB PO ×2 (08:33→15:29)
[2018-02-26] MEDS: ALBUTEROL SULFATE 2.5 MG/0.5 ML INH NEB SOLN INH ×2 (13:35→17:28)
[2018-02-27] MEDS: ALBUTEROL SULFATE 2.5 MG/0.5 ML INH NEB SOLN INH ×3 (01:16→16:38)
[2018-02-27] MEDS: IPRATROPIUM 0.5MG/ALBUTEROL 2.5MG INH SOL UD 3ML (DUONEB)(J7620) NEB ×6 (03:44→23:52)
[2018-02-27] MEDS: BUDESONIDE 0.5 MG/2 ML INHALATION SUSPENSION INH ×2 (07:14→20:13)
[2018-02-27] MEDS: FORMOTEROL FUMARATE 20 MCG/2 ML INHALATION SOLUTION (PERFOROMIST) INH ×2 (07:14→20:13)
[2018-02-27 09:05] LABS: HEMATOCRIT 27.9 % (36.0-47.0); HEMOGLOBIN 8.8 g/dl (12.0-15.5); MEAN CORPUSCULAR HEMOGLOBIN 27.8 pg (27.0-33.0); MEAN CORPUSCULAR HGB CONC 31.5 g/dl (32.0-36.5); MEAN CORPUSCULAR VOLUME 88.3 fl (80.0-96.0); PLATELET COUNT, AUTOMATED 360 10^3/uL (150-450); RED BLOOD COUNT 3.16 10^6/uL (4.00-5.40); RED CELL DISTRIBUTION WIDTH 18.1 % (11.5-14.5); WHITE BLOOD COUNT 8.5 10^3/uL (4.0-10.0)
[2018-02-27 10:57] LABS: ANION GAP 9 MEQ/L (8-16); BLOOD UREA NITROGEN 21 MG/DL (7-18); CALCIUM LEVEL 8.7 MG/DL (8.8-10.2); CARBON DIOXIDE LEVEL 27 MEQ/L (21-32); CHLORIDE LEVEL 107 MEQ/L (98-107); CREATININE FOR GFR 0.66 MG/DL (0.55-1.30); GLOMERULAR FILTRATION RATE > 60.0 (>32); GLUCOSE, FASTING 91 MG/DL (70-100); POTASSIUM SERUM 4.1 MEQ/L (3.5-5.1); SODIUM LEVEL 143 MEQ/L (136-145)
[2018-02-27] MEDS: predniSONE 10 MG TAB PO (11:24)
[2018-02-27] MEDS: ATORVASTATIN 10 MG TAB PO (11:25)
[2018-02-27] MEDS: ASPIRIN 81 MG ENTERIC TAB PO (11:25)
[2018-02-27] MEDS: DOCUSATE SODIUM 100 MG CAP PO ×2 (11:25→20:30)
[2018-02-27] MEDS: FUROSEMIDE 40 MG TAB PO ×2 (11:25→16:12)
[2018-02-27] MEDS: PANTOPRAZOLE 40MG TAB (PROTONIX) PO (11:26)
[2018-02-27] MEDS: guaiFENesin ER 600 MG TAB PO ×2 (11:26→20:30)
[2018-02-28] MEDS: IPRATROPIUM 0.5MG/ALBUTEROL 2.5MG INH SOL UD 3ML (DUONEB)(J7620) NEB ×6 (04:00→22:55)
[2018-02-28] MEDS: BUDESONIDE 0.5 MG/2 ML INHALATION SUSPENSION INH ×2 (07:18→20:35)
[2018-02-28] MEDS: FORMOTEROL FUMARATE 20 MCG/2 ML INHALATION SOLUTION (PERFOROMIST) INH ×2 (07:18→20:35)
[2018-02-28] MEDS: ALBUTEROL SULFATE 2.5 MG/0.5 ML INH NEB SOLN INH ×2 (10:24→17:59)
[2018-02-28] MEDS: ASPIRIN 81 MG ENTERIC TAB PO ×2 (10:43→10:48)
[2018-02-28] MEDS: predniSONE 10 MG TAB PO ×2 (10:43→10:47)
[2018-02-28] MEDS: DOCUSATE SODIUM 100 MG CAP PO ×3 (10:47→22:11)
[2018-02-28] MEDS: FUROSEMIDE 40 MG TAB PO ×2 (10:48→16:13)
[2018-02-28] MEDS: PANTOPRAZOLE 40MG TAB (PROTONIX) PO (10:48)
[2018-02-28] MEDS: guaiFENesin ER 600 MG TAB PO ×2 (10:48→22:08)
[2018-02-28] MEDS: ATORVASTATIN 10 MG TAB PO (10:48)
[2018-03-01] MEDS: ALBUTEROL SULFATE 2.5 MG/0.5 ML INH NEB SOLN INH ×2 (01:19→18:06)
[2018-03-01] MEDS: IPRATROPIUM 0.5MG/ALBUTEROL 2.5MG INH SOL UD 3ML (DUONEB)(J7620) NEB ×6 (03:50→23:19)
[2018-03-01] MEDS: BUDESONIDE 0.5 MG/2 ML INHALATION SUSPENSION INH ×2 (07:27→21:17)
[2018-03-01] MEDS: FORMOTEROL FUMARATE 20 MCG/2 ML INHALATION SOLUTION (PERFOROMIST) INH ×2 (07:27→21:17)
[2018-03-01] MEDS: DOCUSATE SODIUM 100 MG CAP PO ×2 (09:00→21:00)
[2018-03-01] MEDS: FUROSEMIDE 40 MG TAB PO ×2 (09:00→10:29)
[2018-03-01] MEDS: PANTOPRAZOLE 40MG TAB (PROTONIX) PO (09:00)
[2018-03-01] MEDS: guaiFENesin ER 600 MG TAB PO ×2 (09:57→20:11)
[2018-03-01] MEDS: ASPIRIN 81 MG ENTERIC TAB PO (09:57)
[2018-03-01] MEDS: predniSONE 10 MG TAB PO (09:57)
[2018-03-01] MEDS: ATORVASTATIN 10 MG TAB PO (09:57)
[2018-03-01] MEDS ORDERED: ISOVUE-370 76% 100ML VIAL (Q9967) As Ordered (14:21)
[2018-03-01 15:55] LABS: HEMATOCRIT 29.9 % (36.0-47.0); HEMOGLOBIN 9.6 g/dl (12.0-15.5); MEAN CORPUSCULAR HEMOGLOBIN 28.2 pg (27.0-33.0); MEAN CORPUSCULAR HGB CONC 32.1 g/dl (32.0-36.5); MEAN CORPUSCULAR VOLUME 87.9 fl (80.0-96.0); PLATELET COUNT, AUTOMATED 378 10^3/uL (150-450)
[2018-03-01 16:24] LABS: ANION GAP 9 MEQ/L (8-16); BLOOD UREA NITROGEN 25 MG/DL (7-18); CALCIUM LEVEL 8.7 MG/DL (8.8-10.2); CARBON DIOXIDE LEVEL 27 MEQ/L (21-32); CHLORIDE LEVEL 101 MEQ/L (98-107); CREATININE FOR GFR 0.98 MG/DL (0.55-1.30); GLOMERULAR FILTRATION RATE 57.6 (>32); GLUCOSE, FASTING 271 MG/DL (70-100); MAGNESIUM LEVEL 2.3 MG/DL (1.8-2.4); POTASSIUM SERUM 4.6 MEQ/L (3.5-5.1); SODIUM LEVEL 137 MEQ/L (136-145)
[2018-03-01] MEDS: ALBUTEROL SULFATE 2.5 MG/0.5 ML INH NEB SOLN NEB (16:45)
[2018-03-01] MEDS: FUROSEMIDE 100 MG/10 ML VIAL (J1940) IV (17:01)
[2018-03-01] MEDS: APIXABAN 2.5 MG TAB (ELIQUIS) PO (20:11)
[2018-03-02] MEDS: ALBUTEROL SULFATE 2.5 MG/0.5 ML INH NEB SOLN INH (04:43)
[2018-03-02] MEDS: IPRATROPIUM 0.5MG/ALBUTEROL 2.5MG INH SOL UD 3ML (DUONEB)(J7620) NEB ×7 (04:46→23:44)
[2018-03-02] MEDS: FORMOTEROL FUMARATE 20 MCG/2 ML INHALATION SOLUTION (PERFOROMIST) INH ×2 (07:23→19:38)
[2018-03-02] MEDS: BUDESONIDE 0.5 MG/2 ML INHALATION SUSPENSION INH ×2 (07:23→19:38)
[2018-03-02] MEDS: PANTOPRAZOLE 40MG TAB (PROTONIX) PO (08:43)
[2018-03-02] MEDS: DOCUSATE SODIUM 100 MG CAP PO ×2 (08:43→20:27)
[2018-03-02] MEDS: guaiFENesin ER 600 MG TAB PO ×2 (08:49→20:28)
[2018-03-02] MEDS: APIXABAN 2.5 MG TAB (ELIQUIS) PO ×2 (08:49→20:28)
[2018-03-02] MEDS: FUROSEMIDE 40 MG/4 ML VIAL (J1940) IV (08:49)
[2018-03-02] MEDS: ATORVASTATIN 10 MG TAB PO (08:49)
[2018-03-02] MEDS: predniSONE 10 MG TAB PO (08:49)
[2018-03-02] MEDS: ASPIRIN 81 MG ENTERIC TAB PO (08:49)
[2018-03-02 08:54] LABS: HEMATOCRIT 28.5 % (36.0-47.0); HEMOGLOBIN 9.1 g/dl (12.0-15.5); MEAN CORPUSCULAR HEMOGLOBIN 27.9 pg (27.0-33.0); MEAN CORPUSCULAR HGB CONC 31.9 g/dl (32.0-36.5); MEAN CORPUSCULAR VOLUME 87.4 fl (80.0-96.0); PLATELET COUNT, AUTOMATED 335 10^3/uL (150-450); RED BLOOD COUNT 3.26 10^6/uL (4.00-5.40); RED CELL DISTRIBUTION WIDTH 18.1 % (11.5-14.5); WHITE BLOOD COUNT 9.4 10^3/uL (4.0-10.0)
[2018-03-02 09:09] LABS: MAGNESIUM LEVEL 2.4 MG/DL (1.8-2.4)
[2018-03-02 09:13] LABS: ANION GAP 5 MEQ/L (8-16); BLOOD UREA NITROGEN 26 MG/DL (7-18); CALCIUM LEVEL 8.6 MG/DL (8.8-10.2); CARBON DIOXIDE LEVEL 32 MEQ/L (21-32); CHLORIDE LEVEL 106 MEQ/L (98-107); CREATININE FOR GFR 0.68 MG/DL (0.55-1.30); GLOMERULAR FILTRATION RATE > 60.0 (>32); GLUCOSE, FASTING 95 MG/DL (70-100); POTASSIUM SERUM 3.5 MEQ/L (3.5-5.1); SODIUM LEVEL 143 MEQ/L (136-145)
[2018-03-03] MEDS: ALBUTEROL SULFATE 2.5 MG/0.5 ML INH NEB SOLN INH (01:49)
[2018-03-03] MEDS: IPRATROPIUM 0.5MG/ALBUTEROL 2.5MG INH SOL UD 3ML (DUONEB)(J7620) NEB ×6 (03:04→22:33)
[2018-03-03] MEDS: FORMOTEROL FUMARATE 20 MCG/2 ML INHALATION SOLUTION (PERFOROMIST) INH ×2 (07:44→19:25)
[2018-03-03] MEDS: BUDESONIDE 0.5 MG/2 ML INHALATION SUSPENSION INH ×2 (07:44→19:25)
[2018-03-03 08:21] LABS: HEMATOCRIT 28.8 % (36.0-47.0); HEMOGLOBIN 9.1 g/dl (12.0-15.5); MEAN CORPUSCULAR HEMOGLOBIN 27.9 pg (27.0-33.0); MEAN CORPUSCULAR HGB CONC 31.6 g/dl (32.0-36.5); MEAN CORPUSCULAR VOLUME 88.3 fl (80.0-96.0); PLATELET COUNT, AUTOMATED 343 10^3/uL (150-450); RED BLOOD COUNT 3.26 10^6/uL (4.00-5.40); WHITE BLOOD COUNT 12.5 10^3/uL (4.0-10.0)
[2018-03-03 08:52] LABS: ANION GAP 6 MEQ/L (8-16); BLOOD UREA NITROGEN 22 MG/DL (7-18); CALCIUM LEVEL 8.5 MG/DL (8.8-10.2); CARBON DIOXIDE LEVEL 32 MEQ/L (21-32); CHLORIDE LEVEL 104 MEQ/L (98-107); CREATININE FOR GFR 0.69 MG/DL (0.55-1.30); GLOMERULAR FILTRATION RATE > 60.0 (>32); GLUCOSE, FASTING 98 MG/DL (70-100); MAGNESIUM LEVEL 2.1 MG/DL (1.8-2.4); POTASSIUM SERUM 3.8 MEQ/L (3.5-5.1); SODIUM LEVEL 142 MEQ/L (136-145)
[2018-03-03] MEDS: DOCUSATE SODIUM 100 MG CAP PO ×2 (09:00→20:48)
[2018-03-03] MEDS: PANTOPRAZOLE 40MG TAB (PROTONIX) PO (09:00)
[2018-03-03] MEDS: FUROSEMIDE 20 MG/2 ML VIAL (J1940) IV (09:15)
[2018-03-03] MEDS: guaiFENesin ER 600 MG TAB PO ×2 (09:16→20:48)
[2018-03-03] MEDS: APIXABAN 2.5 MG TAB (ELIQUIS) PO ×2 (09:16→20:48)
[2018-03-03] MEDS: predniSONE 10 MG TAB PO (09:16)
[2018-03-03] MEDS: ASPIRIN 81 MG ENTERIC TAB PO (09:16)
[2018-03-03] MEDS: ATORVASTATIN 10 MG TAB PO (09:16)
[2018-03-04] MEDS: IPRATROPIUM 0.5MG/ALBUTEROL 2.5MG INH SOL UD 3ML (DUONEB)(J7620) NEB ×6 (03:28→23:07)
[2018-03-04 05:56] LABS: HEMATOCRIT 26.6 % (36.0-47.0); HEMOGLOBIN 8.3 g/dl (12.0-15.5); MEAN CORPUSCULAR HEMOGLOBIN 27.9 pg (27.0-33.0); MEAN CORPUSCULAR HGB CONC 31.2 g/dl (32.0-36.5); MEAN CORPUSCULAR VOLUME 89.6 fl (80.0-96.0); PLATELET COUNT, AUTOMATED 329 10^3/uL (150-450); RED BLOOD COUNT 2.97 10^6/uL (4.00-5.40); RED CELL DISTRIBUTION WIDTH 17.9 % (11.5-14.5); WHITE BLOOD COUNT 9.4 10^3/uL (4.0-10.0)
[2018-03-04 06:13] LABS: ANION GAP 6 MEQ/L (8-16); BLOOD UREA NITROGEN 22 MG/DL (7-18); CALCIUM LEVEL 8.6 MG/DL (8.8-10.2); CARBON DIOXIDE LEVEL 31 MEQ/L (21-32); CHLORIDE LEVEL 105 MEQ/L (98-107); CREATININE FOR GFR 0.67 MG/DL (0.55-1.30); GLOMERULAR FILTRATION RATE > 60.0 (>32); GLUCOSE, FASTING 87 MG/DL (70-100); MAGNESIUM LEVEL 2.2 MG/DL (1.8-2.4); POTASSIUM SERUM 3.9 MEQ/L (3.5-5.1); SODIUM LEVEL 142 MEQ/L (136-145)
[2018-03-04] MEDS: FORMOTEROL FUMARATE 20 MCG/2 ML INHALATION SOLUTION (PERFOROMIST) INH ×2 (08:10→20:16)
[2018-03-04] MEDS: BUDESONIDE 0.5 MG/2 ML INHALATION SUSPENSION INH ×2 (08:10→20:16)
[2018-03-04] MEDS: PANTOPRAZOLE 40MG TAB (PROTONIX) PO (08:48)
[2018-03-04] MEDS: FUROSEMIDE 20 MG/2 ML VIAL (J1940) IV (08:48)
[2018-03-04] MEDS: guaiFENesin ER 600 MG TAB PO ×2 (08:48→20:47)
[2018-03-04] MEDS: APIXABAN 2.5 MG TAB (ELIQUIS) PO ×2 (08:48→20:47)
[2018-03-04] MEDS: DOCUSATE SODIUM 100 MG CAP PO ×2 (08:48→20:46)
[2018-03-04] MEDS: ASPIRIN 81 MG ENTERIC TAB PO (08:48)
[2018-03-04] MEDS: predniSONE 10 MG TAB PO (08:48)
[2018-03-04] MEDS: ATORVASTATIN 10 MG TAB PO (08:48)
[2018-03-05] MEDS: IPRATROPIUM 0.5MG/ALBUTEROL 2.5MG INH SOL UD 3ML (DUONEB)(J7620) NEB ×5 (03:43→20:00)
[2018-03-05] MEDS: ALBUTEROL SULFATE 2.5 MG/0.5 ML INH NEB SOLN INH ×2 (03:50→22:10)
[2018-03-05] MEDS: BUDESONIDE 0.5 MG/2 ML INHALATION SUSPENSION INH ×2 (08:03→20:01)
[2018-03-05] MEDS: FORMOTEROL FUMARATE 20 MCG/2 ML INHALATION SOLUTION (PERFOROMIST) INH ×2 (08:03→20:01)
[2018-03-05] MEDS: APIXABAN 2.5 MG TAB (ELIQUIS) PO ×2 (09:23→20:32)
[2018-03-05] MEDS: FUROSEMIDE 20 MG/2 ML VIAL (J1940) IV (09:23)
[2018-03-05] MEDS: predniSONE 10 MG TAB PO (09:23)
[2018-03-05] MEDS: ASPIRIN 81 MG ENTERIC TAB PO (09:23)
[2018-03-05] MEDS: guaiFENesin ER 600 MG TAB PO ×2 (09:23→20:32)
[2018-03-05] MEDS: ATORVASTATIN 10 MG TAB PO (09:28)
[2018-03-05] MEDS: DOCUSATE SODIUM 100 MG CAP PO ×2 (09:28→20:32)
[2018-03-05] MEDS: PANTOPRAZOLE 40MG TAB (PROTONIX) PO (09:28)
[2018-03-05 10:33] LABS: HEMATOCRIT 29.3 % (36.0-47.0); HEMOGLOBIN 9.3 g/dl (12.0-15.5); MEAN CORPUSCULAR HEMOGLOBIN 28.4 pg (27.0-33.0); MEAN CORPUSCULAR HGB CONC 31.7 g/dl (32.0-36.5); MEAN CORPUSCULAR VOLUME 89.3 fl (80.0-96.0); PLATELET COUNT, AUTOMATED 370 10^3/uL (150-450); RED BLOOD COUNT 3.28 10^6/uL (4.00-5.40); RED CELL DISTRIBUTION WIDTH 17.8 % (11.5-14.5); WHITE BLOOD COUNT 9.1 10^3/uL (4.0-10.0)
[2018-03-05 10:54] LABS: ANION GAP 8 MEQ/L (8-16); BLOOD UREA NITROGEN 20 MG/DL (7-18); CALCIUM LEVEL 8.9 MG/DL (8.8-10.2); CARBON DIOXIDE LEVEL 28 MEQ/L (21-32); CHLORIDE LEVEL 105 MEQ/L (98-107); CREATININE FOR GFR 0.82 MG/DL (0.55-1.30); GLOMERULAR FILTRATION RATE > 60.0 (>32); GLUCOSE, FASTING 133 MG/DL (70-100); POTASSIUM SERUM 4.1 MEQ/L (3.5-5.1); SODIUM LEVEL 141 MEQ/L (136-145)
[2018-03-05] MEDS: TIOTROPIUM INHALER/CAPSULE (SPIRIVA) INH (11:15)
[2018-03-06] MEDS: IPRATROPIUM 0.5MG/ALBUTEROL 2.5MG INH SOL UD 3ML (DUONEB)(J7620) NEB ×7 (00:47→23:37)
[2018-03-06 05:51] LABS: HEMOGLOBIN 8.9 g/dl (12.0-15.5); MEAN CORPUSCULAR HEMOGLOBIN 28.2 pg (27.0-33.0); MEAN CORPUSCULAR HGB CONC 31.8 g/dl (32.0-36.5); MEAN CORPUSCULAR VOLUME 88.6 fl (80.0-96.0); PLATELET COUNT, AUTOMATED 356 10^3/uL (150-450); RED BLOOD COUNT 3.16 10^6/uL (4.00-5.40); RED CELL DISTRIBUTION WIDTH 17.8 % (11.5-14.5); WHITE BLOOD COUNT 14.7 10^3/uL (4.0-10.0)
[2018-03-06 06:09] LABS: ANION GAP 6 MEQ/L (8-16); BLOOD UREA NITROGEN 21 MG/DL (7-18); CALCIUM LEVEL 8.9 MG/DL (8.8-10.2); CARBON DIOXIDE LEVEL 28 MEQ/L (21-32); CHLORIDE LEVEL 105 MEQ/L (98-107); CREATININE FOR GFR 0.68 MG/DL (0.55-1.30); GLOMERULAR FILTRATION RATE > 60.0 (>32); GLUCOSE, FASTING 109 MG/DL (70-100); MAGNESIUM LEVEL 2.2 MG/DL (1.8-2.4); POTASSIUM SERUM 3.8 MEQ/L (3.5-5.1); SODIUM LEVEL 139 MEQ/L (136-145)
[2018-03-06] MEDS: BUDESONIDE 0.5 MG/2 ML INHALATION SUSPENSION INH ×2 (07:18→19:56)
[2018-03-06] MEDS: FORMOTEROL FUMARATE 20 MCG/2 ML INHALATION SOLUTION (PERFOROMIST) INH ×2 (07:18→19:56)
[2018-03-06] MEDS: TIOTROPIUM INHALER/CAPSULE (SPIRIVA) INH (08:26)
[2018-03-06 09:00] LABS: C REACTIVE PROTEIN QUANTITATIV 1.52 MG/DL (0.00-0.30)
[2018-03-06] MEDS: PANTOPRAZOLE 40MG TAB (PROTONIX) PO (09:00)
[2018-03-06] MEDS: predniSONE 10 MG TAB PO (09:08)
[2018-03-06] MEDS: APIXABAN 2.5 MG TAB (ELIQUIS) PO ×2 (09:08→21:44)
[2018-03-06] MEDS: ASPIRIN 81 MG ENTERIC TAB PO (09:08)
[2018-03-06] MEDS: guaiFENesin ER 600 MG TAB PO ×2 (09:08→21:44)
[2018-03-06] MEDS: ATORVASTATIN 10 MG TAB PO (09:09)
[2018-03-06] MEDS: DOCUSATE SODIUM 100 MG CAP PO ×2 (09:09→21:00)
[2018-03-06 10:46] LABS: ABG BASE EXCESS 0.5 (-2.0-2.0); ABG HCO3 24.2 MEQ/L (22.0-26.0); ABG O2 SATURATION 96.9 % (95.0-99.0); ABG PARTIAL PRESSURE CO2 34.9 mmHg (35.0-45.0); ABG TOTAL CO2 25.2 MEQ/L (23.0-31.0); ABG pH (ARTERIAL) 7.458 UNITS (7.350-7.450)
[2018-03-06] MEDS: ALBUTEROL SULFATE 2.5 MG/0.5 ML INH NEB SOLN INH (14:01)
[2018-03-07] MEDS: IPRATROPIUM 0.5MG/ALBUTEROL 2.5MG INH SOL UD 3ML (DUONEB)(J7620) NEB ×5 (02:59→20:00)
[2018-03-07] MEDS: BUDESONIDE 0.5 MG/2 ML INHALATION SUSPENSION INH ×2 (08:25→20:28)
[2018-03-07] MEDS: FORMOTEROL FUMARATE 20 MCG/2 ML INHALATION SOLUTION (PERFOROMIST) INH ×2 (08:25→20:28)
[2018-03-07] MEDS: TIOTROPIUM INHALER/CAPSULE (SPIRIVA) INH (08:26)
[2018-03-07 08:44] LABS: HEMATOCRIT 27.4 % (36.0-47.0); HEMOGLOBIN 8.6 g/dl (12.0-15.5); MEAN CORPUSCULAR HEMOGLOBIN 28.1 pg (27.0-33.0); MEAN CORPUSCULAR HGB CONC 31.4 g/dl (32.0-36.5); MEAN CORPUSCULAR VOLUME 89.5 fl (80.0-96.0); PLATELET COUNT, AUTOMATED 332 10^3/uL (150-450); RED BLOOD COUNT 3.06 10^6/uL (4.00-5.40); RED CELL DISTRIBUTION WIDTH 18.1 % (11.5-14.5); WHITE BLOOD COUNT 10.6 10^3/uL (4.0-10.0)
[2018-03-07 09:10] LABS: ANION GAP 5 MEQ/L (8-16); BLOOD UREA NITROGEN 16 MG/DL (7-18); C REACTIVE PROTEIN QUANTITATIV 5.75 MG/DL (0.00-0.30); CALCIUM LEVEL 8.6 MG/DL (8.8-10.2); CARBON DIOXIDE LEVEL 29 MEQ/L (21-32); CHLORIDE LEVEL 107 MEQ/L (98-107); CREATININE FOR GFR 0.66 MG/DL (0.55-1.30); GLOMERULAR FILTRATION RATE > 60.0 (>32); GLUCOSE, FASTING 95 MG/DL (70-100); MAGNESIUM LEVEL 2.2 MG/DL (1.8-2.4); POTASSIUM SERUM 4.1 MEQ/L (3.5-5.1); SODIUM LEVEL 141 MEQ/L (136-145)
[2018-03-07] MEDS: guaiFENesin ER 600 MG TAB PO ×2 (09:10→20:41)
[2018-03-07] MEDS: predniSONE 10 MG TAB PO (09:11)
[2018-03-07] MEDS: APIXABAN 2.5 MG TAB (ELIQUIS) PO ×2 (09:11→20:41)
[2018-03-07] MEDS: ASPIRIN 81 MG ENTERIC TAB PO (09:11)
[2018-03-07] MEDS: DOCUSATE SODIUM 100 MG CAP PO ×2 (09:13→20:41)
[2018-03-07] MEDS: ATORVASTATIN 10 MG TAB PO (09:14)
[2018-03-07] MEDS: PANTOPRAZOLE 40MG TAB (PROTONIX) PO (09:14)
[2018-03-07] MEDS: ALBUTEROL SULFATE 2.5 MG/0.5 ML INH NEB SOLN INH ×2 (10:17→13:32)
[2018-03-07] MEDS: FUROSEMIDE 40 MG TAB PO (14:16)
[2018-03-08] MEDS: IPRATROPIUM 0.5MG/ALBUTEROL 2.5MG INH SOL UD 3ML (DUONEB)(J7620) NEB ×5 (00:01→15:15)
[2018-03-08 06:18] LABS: HEMATOCRIT 27.5 % (36.0-47.0); HEMOGLOBIN 8.6 g/dl (12.0-15.5); MEAN CORPUSCULAR HEMOGLOBIN 27.7 pg (27.0-33.0); MEAN CORPUSCULAR HGB CONC 31.3 g/dl (32.0-36.5); MEAN CORPUSCULAR VOLUME 88.4 fl (80.0-96.0); PLATELET COUNT, AUTOMATED 375 10^3/uL (150-450); RED BLOOD COUNT 3.11 10^6/uL (4.00-5.40); WHITE BLOOD COUNT 10.9 10^3/uL (4.0-10.0)
[2018-03-08 06:28] LABS: ANION GAP 6 MEQ/L (8-16); BLOOD UREA NITROGEN 20 MG/DL (7-18); CALCIUM LEVEL 8.8 MG/DL (8.8-10.2); CARBON DIOXIDE LEVEL 32 MEQ/L (21-32); CHLORIDE LEVEL 104 MEQ/L (98-107); CREATININE FOR GFR 0.73 MG/DL (0.55-1.30); GLOMERULAR FILTRATION RATE > 60.0 (>32); GLUCOSE, FASTING 107 MG/DL (70-100); MAGNESIUM LEVEL 2.1 MG/DL (1.8-2.4); POTASSIUM SERUM 3.5 MEQ/L (3.5-5.1); SODIUM LEVEL 142 MEQ/L (136-145)
[2018-03-08 08:07] LABS: C REACTIVE PROTEIN QUANTITATIV 3.34 MG/DL (0.00-0.30)
[2018-03-08] MEDS: FORMOTEROL FUMARATE 20 MCG/2 ML INHALATION SOLUTION (PERFOROMIST) INH (08:40)
[2018-03-08] MEDS: TIOTROPIUM INHALER/CAPSULE (SPIRIVA) INH (08:40)
[2018-03-08] MEDS: BUDESONIDE 0.5 MG/2 ML INHALATION SUSPENSION INH (08:40)
[2018-03-08] MEDS: guaiFENesin ER 600 MG TAB PO (09:49)
[2018-03-08] MEDS: ATORVASTATIN 10 MG TAB PO (09:49)
[2018-03-08] MEDS: FUROSEMIDE 40 MG TAB PO (09:49)
[2018-03-08] MEDS: APIXABAN 2.5 MG TAB (ELIQUIS) PO (09:49)
[2018-03-08] MEDS: PANTOPRAZOLE 40MG TAB (PROTONIX) PO (09:50)
[2018-03-08] MEDS: predniSONE 10 MG TAB PO (09:50)
[2018-03-08] MEDS: DOCUSATE SODIUM 100 MG CAP PO (09:50)
[2018-03-08] MEDS: ASPIRIN 81 MG ENTERIC TAB PO (09:50)
[2018-03-08] MEDS: ALBUTEROL SULFATE 2.5 MG/0.5 ML INH NEB SOLN INH (13:36)
== END 2018-03-08 15:25 | disposition home health service (06) | DRG 190 ==
LOC: M ED 17:08 → M ED INP 21:15 → M MSPAV 21:58
DX: J44.1 Chronic obstructive pulmonary disease with (acute) exacerbation (principal); I50.33 Acute on chronic diastolic (congestive) heart failure; J18.9 Pneumonia, unspecified organism; I82.412 Acute embolism and thrombosis of left femoral vein; I25.10 Atherosclerotic heart disease of native coronary artery without angina pectoris; I27.29 Other secondary pulmonary hypertension; F41.9 Anxiety disorder, unspecified; F03.90 Unspecified dementia, unspecified severity, without behavioral disturbance, psychotic disturbance, mood disturbance, and anxiety; E02 Subclinical iodine-deficiency hypothyroidism; R41.82 Altered mental status, unspecified; K21.9 Gastro-esophageal reflux disease without esophagitis; D64.9 Anemia, unspecified; J44.0 Chronic obstructive pulmonary disease with (acute) lower respiratory infection; Z86.73 Personal history of transient ischemic attack (TIA), and cerebral infarction without residual deficits; Z95.5 Presence of coronary angioplasty implant and graft; Z87.891 Personal history of nicotine dependence; Z79.52 Long term (current) use of systemic steroids; Z79.82 Long term (current) use of aspirin; Z79.899 Other long term (current) drug therapy; Z99.81 Dependence on supplemental oxygen; Z88.1 Allergy status to other antibiotic agents; Z88.8 Allergy status to other drugs, medicaments and biological substances; Z90.5 Acquired absence of kidney; Z86.13 Personal history of malaria; Z91.19 Patient's noncompliance with other medical treatment and regimen; Z91.14 Patient's other noncompliance with medication regimen

== ENCOUNTER 2018-04-21 00:19 | Inpatient (IN) | payer MEDICARE, OTHER ==
[2018-04-21 03:07] LABS: BASO % 0.3 % (0.0-1.0); EOS # 0.1 10^3/uL (0.0-0.50); EOS % 0.7 % (0.0-3.0); HEMOGLOBIN 9.8 g/dl (12.0-15.5); IMMATURE GRANULOCYTE % 0.8 % (0-3.0); LYMPH # 1.9 10^3/uL (1.5-4.5); LYMPH % 16.1 % (24.0-44.0); MEAN CORPUSCULAR HEMOGLOBIN 27.8 pg (27.0-33.0); MEAN CORPUSCULAR HGB CONC 31.6 g/dl (32.0-36.5); MEAN CORPUSCULAR VOLUME 88.1 fl (80.0-96.0); MONO % 8.1 % (0.0-5.0); NEUTROPHILS # 8.7 10^3/uL (1.8-7.7); PLATELET COUNT, AUTOMATED 348 10^3/uL (150-450); RED BLOOD COUNT 3.52 10^6/uL (4.00-5.40); RED CELL DISTRIBUTION WIDTH 16.3 % (11.5-14.5); WHITE BLOOD COUNT 11.7 10^3/uL (4.0-10.0)
[2018-04-21 03:20] LABS: INR 1.07
[2018-04-21 03:21] LABS: PARTIAL THROMBOPLASTIN TIME 35.1 SECONDS (26.8-37.9)
[2018-04-21 03:25] LABS: ANION GAP 10 MEQ/L (8-16); BLOOD UREA NITROGEN 23 MG/DL (7-18); CARBON DIOXIDE LEVEL 27 MEQ/L (21-32); CHLORIDE LEVEL 107 MEQ/L (98-107); CREATININE FOR GFR 0.71 MG/DL (0.55-1.30); GLOMERULAR FILTRATION RATE > 60.0 (>32); GLUCOSE, FASTING 86 MG/DL (70-100); POTASSIUM SERUM 4.2 MEQ/L (3.5-5.1); SODIUM LEVEL 144 MEQ/L (136-145)
[2018-04-21 07:38] LABS: CK-MB VALUE MASS 6.6 NG/ML (<3.6); CPK CREATINE PHOSPHOKINASE 233 U/L (26-192); MB/CK RELATIVE INDEX 2.83 (< OR =4); NT-PRO BNP 1612 PG/ML (<450); TROPONIN I < 0.02 NG/ML (< 0.10)
[2018-04-21] MEDS: methylPREDNISolone INJ 125 MG/2 ML VIAL (J2930) IV (07:47)
[2018-04-21] MEDS: IPRATROPIUM 0.5MG/ALBUTEROL 2.5MG INH SOL UD 3ML (DUONEB)(J7620) NEB ×5 (07:59→23:32)
[2018-04-21] MEDS: TIOTROPIUM INHALER/CAPSULE (SPIRIVA) INH (08:00)
[2018-04-21] MEDS: LACTOBACILLUS ACIDOPHILUS CAP (BACID) PO ×2 (08:00→12:27)
[2018-04-21] MEDS ORDERED: ACETAMINOPHEN TAB 650MG DOSE (2X325MG) PO (08:30)
[2018-04-21] MEDS ORDERED: ONDANSETRON 4MG/2ML VIAL (J2405) IV (08:30)
[2018-04-21] MEDS ORDERED: ISOVUE-370 76% 100ML VIAL (Q9967) As Ordered (08:31)
[2018-04-21] MEDS ORDERED: CETIRIZINE (ZyrTEC) 10 MG TAB PO (10:15)
[2018-04-21] MEDS: ASPIRIN 81 MG ENTERIC TAB PO (12:27)
[2018-04-21] MEDS: FUROSEMIDE 40 MG/4 ML VIAL (J1940) IV ×2 (12:27→20:35)
[2018-04-21] MEDS: CALCIUM/VITAMIN D 500 MG TAB PO (12:28)
[2018-04-21] MEDS: ALPRAZolam 0.25 MG TAB PO ×2 (12:28→20:35)
[2018-04-21] MEDS: ATORVASTATIN 10 MG TAB PO (12:28)
[2018-04-21] MEDS: guaiFENesin ER 600 MG TAB PO ×2 (12:28→20:36)
[2018-04-21] MEDS: MEROPENEM INJ 1 GM in APPROPRIATE DILUENT 1 EA IV ×2 (12:29→20:33)
[2018-04-21] MEDS: SYMBICORT 160/4.5MCG INHALER 6GM INH ×2 (13:21→20:46)
[2018-04-21] MEDS: HEPARIN SOD (PORCINE) 5000 UNITS/ML VIAL SC ×2 (14:00→22:00)
[2018-04-21 14:22] LABS: CPK CREATINE PHOSPHOKINASE 203 U/L (26-192); TROPONIN I 0.05 NG/ML (< 0.10)
[2018-04-21 14:23] LABS: CK-MB VALUE MASS 6.3 NG/ML (<3.6)
[2018-04-21] MEDS: EUCERIN 120GM CREAM TOP ×2 (14:30→20:37)
[2018-04-21 23:28] LABS: CPK CREATINE PHOSPHOKINASE 162 U/L (26-192); TROPONIN I < 0.02 NG/ML (< 0.10)
[2018-04-21 23:29] LABS: CK-MB VALUE MASS 4.9 NG/ML (<3.6); MB/CK RELATIVE INDEX 3.02 (< OR =4)
[2018-04-22] MEDS: IPRATROPIUM 0.5MG/ALBUTEROL 2.5MG INH SOL UD 3ML (DUONEB)(J7620) NEB ×7 (03:40→23:23)
[2018-04-22] MEDS: MEROPENEM INJ 1 GM in APPROPRIATE DILUENT 1 EA IV ×3 (04:45→19:52)
[2018-04-22] MEDS: FUROSEMIDE 40 MG/4 ML VIAL (J1940) IV ×2 (04:46→06:24)
[2018-04-22] MEDS: HEPARIN SOD (PORCINE) 5000 UNITS/ML VIAL SC ×3 (06:00→22:00)
[2018-04-22 06:11] LABS: BASO % 0.2 % (0.0-1.0); EOS # 0.1 10^3/uL (0.0-0.50); EOS % 0.4 % (0.0-3.0); HEMATOCRIT 32.1 % (36.0-47.0); HEMOGLOBIN 10.4 g/dl (12.0-15.5); IMMATURE GRANULOCYTE % 0.7 % (0-3.0); LYMPH # 1.7 10^3/uL (1.5-4.5); LYMPH % 13.6 % (24.0-44.0); MEAN CORPUSCULAR HEMOGLOBIN 27.9 pg (27.0-33.0); MEAN CORPUSCULAR HGB CONC 32.4 g/dl (32.0-36.5); MEAN CORPUSCULAR VOLUME 86.1 fl (80.0-96.0); MONO # 1.3 10^3/uL (0.0-0.8); NEUTROPHILS # 9.4 10^3/uL (1.8-7.7); NEUTROPHILS % 75.1 % (36.0-66.0); PLATELET COUNT, AUTOMATED 397 10^3/uL (150-450); RED BLOOD COUNT 3.73 10^6/uL (4.00-5.40); RED CELL DISTRIBUTION WIDTH 16.6 % (11.5-14.5); WHITE BLOOD COUNT 12.5 10^3/uL (4.0-10.0)
[2018-04-22] MEDS: predniSONE 20 MG TAB PO (06:24)
[2018-04-22 06:42] LABS: ANION GAP 10 MEQ/L (8-16); BLOOD UREA NITROGEN 25 MG/DL (7-18); CALCIUM LEVEL 8.7 MG/DL (8.8-10.2); CARBON DIOXIDE LEVEL 31 MEQ/L (21-32); CHLORIDE LEVEL 102 MEQ/L (98-107); CK-MB VALUE MASS 4.8 NG/ML (<3.6); CPK CREATINE PHOSPHOKINASE 175 U/L (26-192); CREATININE FOR GFR 0.92 MG/DL (0.55-1.30); GLOMERULAR FILTRATION RATE > 60.0 (>32); GLUCOSE, FASTING 89 MG/DL (70-100); MAGNESIUM LEVEL 2.2 MG/DL (1.8-2.4); MB/CK RELATIVE INDEX 2.74 (< OR =4); NT-PRO BNP 3165 PG/ML (<450); POTASSIUM SERUM 3.6 MEQ/L (3.5-5.1); SODIUM LEVEL 143 MEQ/L (136-145); TROPONIN I < 0.02 NG/ML (< 0.10)
[2018-04-22] MEDS: SYMBICORT 160/4.5MCG INHALER 6GM INH ×2 (08:00→21:00)
[2018-04-22] MEDS: TIOTROPIUM INHALER/CAPSULE (SPIRIVA) INH (08:00)
[2018-04-22] MEDS: ASPIRIN 81 MG ENTERIC TAB PO (10:27)
[2018-04-22] MEDS: LACTOBACILLUS ACIDOPHILUS CAP (BACID) PO ×3 (10:27→17:41)
[2018-04-22] MEDS: CALCIUM/VITAMIN D 500 MG TAB PO (10:28)
[2018-04-22] MEDS: ATORVASTATIN 10 MG TAB PO (10:28)
[2018-04-22] MEDS: DEXTROMETHORPHAN 60MG/10ML SUSP 90ML BTL(DELSYM) PO ×4 (10:28→19:53)
[2018-04-22] MEDS: EUCERIN 120GM CREAM TOP ×2 (10:29→21:00)
[2018-04-22] MEDS: methylPREDNISolone INJ 125 MG/2 ML VIAL (J2930) IV (10:29)
[2018-04-22] MEDS: FUROSEMIDE 20 MG/2 ML VIAL (J1940) IV ×2 (12:24→17:41)
[2018-04-22] MEDS: ALPRAZolam 0.25 MG TAB PO (19:52)
[2018-04-22] MEDS ORDERED: guaiFENesin ER 600 MG TAB PO (21:00)
[2018-04-23] MEDS: IPRATROPIUM 0.5MG/ALBUTEROL 2.5MG INH SOL UD 3ML (DUONEB)(J7620) NEB ×6 (00:22→20:00)
[2018-04-23] MEDS: FUROSEMIDE 20 MG/2 ML VIAL (J1940) IV ×4 (00:48→18:59)
[2018-04-23] MEDS: MEROPENEM INJ 1 GM in APPROPRIATE DILUENT 1 EA IV ×3 (04:17→20:26)
[2018-04-23] MEDS: HEPARIN SOD (PORCINE) 5000 UNITS/ML VIAL SC (05:37)
[2018-04-23 06:29] LABS: BASO % 0.2 % (0.0-1.0); EOS % 0.1 % (0.0-3.0); HEMATOCRIT 28.3 % (36.0-47.0); HEMOGLOBIN 9.2 g/dl (12.0-15.5); IMMATURE GRANULOCYTE % 0.6 % (0-3.0); LYMPH # 1.2 10^3/uL (1.5-4.5); LYMPH % 10.3 % (24.0-44.0); MEAN CORPUSCULAR HGB CONC 32.5 g/dl (32.0-36.5); MONO # 1.2 10^3/uL (0.0-0.8); MONO % 10.3 % (0.0-5.0); NEUTROPHILS # 8.9 10^3/uL (1.8-7.7); NEUTROPHILS % 78.5 % (36.0-66.0); PLATELET COUNT, AUTOMATED 330 10^3/uL (150-450); RED BLOOD COUNT 3.29 10^6/uL (4.00-5.40); RED CELL DISTRIBUTION WIDTH 16.7 % (11.5-14.5); WHITE BLOOD COUNT 11.3 10^3/uL (4.0-10.0)
[2018-04-23 06:51] LABS: ANION GAP 6 MEQ/L (8-16); BLOOD UREA NITROGEN 37 MG/DL (7-18); CALCIUM LEVEL 8.7 MG/DL (8.8-10.2); CARBON DIOXIDE LEVEL 33 MEQ/L (21-32); CHLORIDE LEVEL 101 MEQ/L (98-107); CREATININE FOR GFR 0.85 MG/DL (0.55-1.30); GLOMERULAR FILTRATION RATE > 60.0 (>32); GLUCOSE, FASTING 110 MG/DL (70-100); POTASSIUM SERUM 3.9 MEQ/L (3.5-5.1); SODIUM LEVEL 140 MEQ/L (136-145)
[2018-04-23] MEDS: LACTOBACILLUS ACIDOPHILUS CAP (BACID) PO ×2 (08:00→18:30)
[2018-04-23] MEDS: TIOTROPIUM INHALER/CAPSULE (SPIRIVA) INH (08:01)
[2018-04-23] MEDS: SYMBICORT 160/4.5MCG INHALER 6GM INH ×2 (08:01→20:33)
[2018-04-23] MEDS: ASPIRIN 81 MG ENTERIC TAB PO (09:15)
[2018-04-23] MEDS: DEXTROMETHORPHAN 60MG/10ML SUSP 90ML BTL(DELSYM) PO ×2 (09:16→20:24)
[2018-04-23] MEDS: methylPREDNISolone INJ 125 MG/2 ML VIAL (J2930) IV ×2 (09:16→20:26)
[2018-04-23] MEDS: ATORVASTATIN 10 MG TAB PO (09:16)
[2018-04-23] MEDS: CALCIUM/VITAMIN D 500 MG TAB PO (09:16)
[2018-04-23] MEDS: EUCERIN 120GM CREAM TOP ×2 (09:17→20:26)
[2018-04-23 11:16] LABS: CK-MB VALUE MASS 3.3 NG/ML (<3.6); CPK CREATINE PHOSPHOKINASE 112 U/L (26-192); MB/CK RELATIVE INDEX 2.94 (< OR =4); TROPONIN I < 0.02 NG/ML (< 0.10)
[2018-04-23] MEDS ORDERED: SUCRALFATE SUSP 1GM/10ML UD PO (12:00)
[2018-04-23] MEDS: APIXABAN 2.5 MG TAB (ELIQUIS) PO ×2 (13:18→20:26)
[2018-04-23] MEDS: SUCRALFATE SUSP 1GM/10ML UD PO ×3 (13:19→20:23)
[2018-04-23] MEDS: PANTOPRAZOLE 40MG INJ (PROTONIX) (C9113) IV (13:19)
[2018-04-24] MEDS: FUROSEMIDE 20 MG/2 ML VIAL (J1940) IV ×4 (00:07→11:52)
[2018-04-24] MEDS: FUROSEMIDE 20 MG TAB PO (00:43)
[2018-04-24] MEDS: IPRATROPIUM 0.5MG/ALBUTEROL 2.5MG INH SOL UD 3ML (DUONEB)(J7620) NEB ×6 (04:57→20:00)
[2018-04-24] MEDS: TIOTROPIUM INHALER/CAPSULE (SPIRIVA) INH (08:11)
[2018-04-24] MEDS: SYMBICORT 160/4.5MCG INHALER 6GM INH ×2 (08:11→21:29)
[2018-04-24 08:20] LABS: BASO % 0.1 % (0.0-1.0); HEMATOCRIT 29.4 % (36.0-47.0); HEMOGLOBIN 9.6 g/dl (12.0-15.5); IMMATURE GRANULOCYTE % 0.7 % (0-3.0); LYMPH # 0.9 10^3/uL (1.5-4.5); LYMPH % 7.9 % (24.0-44.0); MEAN CORPUSCULAR HEMOGLOBIN 28.2 pg (27.0-33.0); MEAN CORPUSCULAR HGB CONC 32.7 g/dl (32.0-36.5); MEAN CORPUSCULAR VOLUME 86.2 fl (80.0-96.0); MONO # 0.6 10^3/uL (0.0-0.8); MONO % 5.4 % (0.0-5.0); NEUTROPHILS % 85.9 % (36.0-66.0); PLATELET COUNT, AUTOMATED 350 10^3/uL (150-450); RED BLOOD COUNT 3.41 10^6/uL (4.00-5.40); RED CELL DISTRIBUTION WIDTH 17.1 % (11.5-14.5); WHITE BLOOD COUNT 11.6 10^3/uL (4.0-10.0)
[2018-04-24 08:47] LABS: ANION GAP 11 MEQ/L (8-16); BLOOD UREA NITROGEN 34 MG/DL (7-18); CALCIUM LEVEL 8.8 MG/DL (8.8-10.2); CARBON DIOXIDE LEVEL 33 MEQ/L (21-32); CHLORIDE LEVEL 97 MEQ/L (98-107); CREATININE FOR GFR 0.88 MG/DL (0.55-1.30); GLOMERULAR FILTRATION RATE > 60.0 (>32); GLUCOSE, FASTING 118 MG/DL (70-100); POTASSIUM SERUM 4.1 MEQ/L (3.5-5.1); SODIUM LEVEL 141 MEQ/L (136-145)
[2018-04-24] MEDS: LACTOBACILLUS ACIDOPHILUS CAP (BACID) PO ×2 (09:47→17:40)
[2018-04-24] MEDS: SUCRALFATE SUSP 1GM/10ML UD PO ×4 (09:47→21:00)
[2018-04-24] MEDS: ASPIRIN 81 MG ENTERIC TAB PO (09:58)
[2018-04-24] MEDS: APIXABAN 2.5 MG TAB (ELIQUIS) PO ×2 (09:58→21:30)
[2018-04-24] MEDS: CALCIUM/VITAMIN D 500 MG TAB PO (09:58)
[2018-04-24] MEDS: DEXTROMETHORPHAN 60MG/10ML SUSP 90ML BTL(DELSYM) PO ×2 (09:58→21:00)
[2018-04-24] MEDS: PANTOPRAZOLE 40MG TAB (PROTONIX) PO (09:58)
[2018-04-24] MEDS: ATORVASTATIN 10 MG TAB PO (09:58)
[2018-04-24] MEDS: EUCERIN 120GM CREAM TOP ×2 (09:59→21:30)
[2018-04-24] MEDS: ALPRAZolam 0.25 MG TAB PO (10:01)
[2018-04-24] MEDS: MEROPENEM INJ 1 GM in APPROPRIATE DILUENT 1 EA IV ×2 (11:16→11:52)
[2018-04-24] MEDS: methylPREDNISolone INJ 125 MG/2 ML VIAL (J2930) IV (11:17)
[2018-04-24] MEDS: FUROSEMIDE 40 MG TAB PO (16:15)
[2018-04-24] MEDS: AZITHROMYCIN 250 MG TAB PO (16:15)
[2018-04-24] MEDS: predniSONE 20 MG TAB PO (21:30)
[2018-04-25] MEDS: IPRATROPIUM 0.5MG/ALBUTEROL 2.5MG INH SOL UD 3ML (DUONEB)(J7620) NEB ×7 (00:08→23:54)
[2018-04-25] MEDS: TIOTROPIUM INHALER/CAPSULE (SPIRIVA) INH (07:44)
[2018-04-25] MEDS: SYMBICORT 160/4.5MCG INHALER 6GM INH ×2 (07:44→20:26)
[2018-04-25] MEDS: SUCRALFATE SUSP 1GM/10ML UD PO ×4 (07:53→21:00)
[2018-04-25] MEDS: LACTOBACILLUS ACIDOPHILUS CAP (BACID) PO ×2 (07:54→18:08)
[2018-04-25] MEDS: DEXTROMETHORPHAN 60MG/10ML SUSP 90ML BTL(DELSYM) PO ×2 (10:13→21:00)
[2018-04-25] MEDS: predniSONE 20 MG TAB PO ×2 (10:14→22:37)
[2018-04-25] MEDS: ASPIRIN 81 MG ENTERIC TAB PO (10:14)
[2018-04-25] MEDS: AZITHROMYCIN 250 MG TAB PO (10:14)
[2018-04-25] MEDS: CALCIUM/VITAMIN D 500 MG TAB PO (10:14)
[2018-04-25] MEDS: ATORVASTATIN 10 MG TAB PO (10:14)
[2018-04-25] MEDS: APIXABAN 2.5 MG TAB (ELIQUIS) PO ×2 (10:15→21:00)
[2018-04-25] MEDS: PANTOPRAZOLE 40MG TAB (PROTONIX) PO (10:15)
[2018-04-25] MEDS: FUROSEMIDE 40 MG TAB PO ×2 (10:15→18:09)
[2018-04-25] MEDS: EUCERIN 120GM CREAM TOP ×2 (10:16→21:00)
[2018-04-26] MEDS: IPRATROPIUM 0.5MG/ALBUTEROL 2.5MG INH SOL UD 3ML (DUONEB)(J7620) NEB ×7 (04:00→22:52)
[2018-04-26] MEDS: SUCRALFATE SUSP 1GM/10ML UD PO ×4 (08:00→21:00)
[2018-04-26] MEDS: LACTOBACILLUS ACIDOPHILUS CAP (BACID) PO ×2 (08:00→17:50)
[2018-04-26 08:36] LABS: BASO % 0.1 % (0.0-1.0); HEMATOCRIT 29.2 % (36.0-47.0); HEMOGLOBIN 9.5 g/dl (12.0-15.5); IMMATURE GRANULOCYTE % 1.3 % (0-3.0); LYMPH # 0.7 10^3/uL (1.5-4.5); LYMPH % 6.1 % (24.0-44.0); MEAN CORPUSCULAR HEMOGLOBIN 28.2 pg (27.0-33.0); MEAN CORPUSCULAR HGB CONC 32.5 g/dl (32.0-36.5); MEAN CORPUSCULAR VOLUME 86.6 fl (80.0-96.0); MONO # 0.5 10^3/uL (0.0-0.8); MONO % 3.9 % (0.0-5.0); NEUTROPHILS # 10.5 10^3/uL (1.8-7.7); NEUTROPHILS % 88.6 % (36.0-66.0); PLATELET COUNT, AUTOMATED 354 10^3/uL (150-450); RED BLOOD COUNT 3.37 10^6/uL (4.00-5.40); RED CELL DISTRIBUTION WIDTH 16.7 % (11.5-14.5); WHITE BLOOD COUNT 11.9 10^3/uL (4.0-10.0)
[2018-04-26] MEDS: TIOTROPIUM INHALER/CAPSULE (SPIRIVA) INH (08:44)
[2018-04-26] MEDS: SYMBICORT 160/4.5MCG INHALER 6GM INH ×2 (08:44→19:32)
[2018-04-26 09:14] LABS: ANION GAP 9 MEQ/L (8-16); BLOOD UREA NITROGEN 36 MG/DL (7-18); CALCIUM LEVEL 8.3 MG/DL (8.8-10.2); CARBON DIOXIDE LEVEL 32 MEQ/L (21-32); CHLORIDE LEVEL 101 MEQ/L (98-107); CREATININE FOR GFR 0.78 MG/DL (0.55-1.30); GLOMERULAR FILTRATION RATE > 60.0 (>32); GLUCOSE, FASTING 147 MG/DL (70-100); POTASSIUM SERUM 4.4 MEQ/L (3.5-5.1); SODIUM LEVEL 142 MEQ/L (136-145)
[2018-04-26] MEDS: ASPIRIN 81 MG ENTERIC TAB PO (10:39)
[2018-04-26] MEDS: AZITHROMYCIN 250 MG TAB PO (10:39)
[2018-04-26] MEDS: CALCIUM/VITAMIN D 500 MG TAB PO (10:39)
[2018-04-26] MEDS: ATORVASTATIN 10 MG TAB PO (10:40)
[2018-04-26] MEDS: predniSONE 20 MG TAB PO ×2 (10:40→22:36)
[2018-04-26] MEDS: PANTOPRAZOLE 40MG TAB (PROTONIX) PO (10:40)
[2018-04-26] MEDS: APIXABAN 2.5 MG TAB (ELIQUIS) PO ×2 (10:40→21:00)
[2018-04-26] MEDS: FUROSEMIDE 40 MG TAB PO ×2 (10:40→17:50)
[2018-04-26] MEDS: DEXTROMETHORPHAN 60MG/10ML SUSP 90ML BTL(DELSYM) PO ×2 (10:41→21:00)
[2018-04-26] MEDS: EUCERIN 120GM CREAM TOP ×2 (10:41→21:00)
[2018-04-27] MEDS: IPRATROPIUM 0.5MG/ALBUTEROL 2.5MG INH SOL UD 3ML (DUONEB)(J7620) NEB ×6 (04:46→20:00)
[2018-04-27] MEDS: SUCRALFATE SUSP 1GM/10ML UD PO ×4 (07:30→20:47)
[2018-04-27] MEDS: LACTOBACILLUS ACIDOPHILUS CAP (BACID) PO ×2 (08:00→17:28)
[2018-04-27] MEDS: TIOTROPIUM INHALER/CAPSULE (SPIRIVA) INH (08:21)
[2018-04-27] MEDS: SYMBICORT 160/4.5MCG INHALER 6GM INH ×2 (08:21→21:00)
[2018-04-27] MEDS: FUROSEMIDE 40 MG TAB PO ×2 (09:54→17:43)
[2018-04-27] MEDS: PANTOPRAZOLE 40MG TAB (PROTONIX) PO (09:54)
[2018-04-27] MEDS: ATORVASTATIN 10 MG TAB PO (09:54)
[2018-04-27] MEDS: DEXTROMETHORPHAN 60MG/10ML SUSP 90ML BTL(DELSYM) PO ×2 (09:54→20:47)
[2018-04-27] MEDS: APIXABAN 2.5 MG TAB (ELIQUIS) PO ×2 (09:55→20:47)
[2018-04-27] MEDS: predniSONE 20 MG TAB PO (09:55)
[2018-04-27] MEDS: ASPIRIN 81 MG ENTERIC TAB PO (09:56)
[2018-04-27] MEDS: CALCIUM/VITAMIN D 500 MG TAB PO (09:56)
[2018-04-27] MEDS: AZITHROMYCIN 250 MG TAB PO (09:56)
[2018-04-27] MEDS: EUCERIN 120GM CREAM TOP ×2 (09:57→21:00)
[2018-04-28] MEDS: IPRATROPIUM 0.5MG/ALBUTEROL 2.5MG INH SOL UD 3ML (DUONEB)(J7620) NEB ×7 (00:17→22:52)
[2018-04-28 06:26] LABS: BASO % 0.2 % (0.0-1.0); EOS # 0.1 10^3/uL (0.0-0.50); EOS % 0.8 % (0.0-3.0); HEMATOCRIT 27.4 % (36.0-47.0); HEMOGLOBIN 8.9 g/dl (12.0-15.5); IMMATURE GRANULOCYTE % 4.5 % (0-3.0); LYMPH # 2.1 10^3/uL (1.5-4.5); LYMPH % 15.7 % (24.0-44.0); MEAN CORPUSCULAR HEMOGLOBIN 28.3 pg (27.0-33.0); MEAN CORPUSCULAR HGB CONC 32.5 g/dl (32.0-36.5); MONO # 1.3 10^3/uL (0.0-0.8); MONO % 9.7 % (0.0-5.0); NEUTROPHILS # 9.2 10^3/uL (1.8-7.7); NEUTROPHILS % 69.1 % (36.0-66.0); PLATELET COUNT, AUTOMATED 357 10^3/uL (150-450); RED BLOOD COUNT 3.15 10^6/uL (4.00-5.40); RED CELL DISTRIBUTION WIDTH 16.6 % (11.5-14.5); WHITE BLOOD COUNT 13.3 10^3/uL (4.0-10.0)
[2018-04-28 06:49] LABS: ALBUMIN 2.9 GM/DL (3.2-5.2); ALBUMIN/GLOBULIN RATIO 0.97 (1.00-1.93); ALKALINE PHOSPHATASE 63 U/L (45-117); ALT/SGPT 37 U/L (12-78); ANION GAP 5 MEQ/L (8-16); AST/SGOT 23 U/L (7-37); BILIRUBIN,DIRECT 0.1 MG/DL (0.0-0.2); BILIRUBIN,TOTAL 0.4 MG/DL (0.2-1.0); BLOOD UREA NITROGEN 37 MG/DL (7-18); CALCIUM LEVEL 8.1 MG/DL (8.8-10.2); CARBON DIOXIDE LEVEL 33 MEQ/L (21-32); CHLORIDE LEVEL 103 MEQ/L (98-107); CREATININE FOR GFR 0.76 MG/DL (0.55-1.30); GLOMERULAR FILTRATION RATE > 60.0 (>32); GLUCOSE, FASTING 78 MG/DL (70-100); NT-PRO BNP 748 PG/ML (<450); POTASSIUM SERUM 4.1 MEQ/L (3.5-5.1); PREALBUMIN 31.8 MG/DL (20.0-40.0); SODIUM LEVEL 141 MEQ/L (136-145); TOTAL PROTEIN 5.9 GM/DL (6.4-8.2)
[2018-04-28] MEDS: SUCRALFATE SUSP 1GM/10ML UD PO ×4 (07:30→21:00)
[2018-04-28] MEDS: TIOTROPIUM INHALER/CAPSULE (SPIRIVA) INH (07:47)
[2018-04-28] MEDS: SYMBICORT 160/4.5MCG INHALER 6GM INH ×2 (07:48→20:28)
[2018-04-28] MEDS: LACTOBACILLUS ACIDOPHILUS CAP (BACID) PO ×2 (08:00→17:10)
[2018-04-28] MEDS: EUCERIN 120GM CREAM TOP ×2 (09:00→21:00)
[2018-04-28] MEDS: CALCIUM/VITAMIN D 500 MG TAB PO (09:00)
[2018-04-28] MEDS: PANTOPRAZOLE 40MG TAB (PROTONIX) PO (09:00)
[2018-04-28] MEDS: DEXTROMETHORPHAN 60MG/10ML SUSP 90ML BTL(DELSYM) PO ×2 (10:26→21:00)
[2018-04-28] MEDS: AZITHROMYCIN 250 MG TAB PO (10:26)
[2018-04-28] MEDS: predniSONE 20 MG TAB PO (10:26)
[2018-04-28] MEDS: ASPIRIN 81 MG ENTERIC TAB PO (10:27)
[2018-04-28] MEDS: ATORVASTATIN 10 MG TAB PO (10:27)
[2018-04-28] MEDS: FUROSEMIDE 40 MG TAB PO ×2 (10:27→17:10)
[2018-04-28] MEDS: APIXABAN 2.5 MG TAB (ELIQUIS) PO ×2 (10:28→21:00)
[2018-04-29] MEDS: IPRATROPIUM 0.5MG/ALBUTEROL 2.5MG INH SOL UD 3ML (DUONEB)(J7620) NEB ×7 (03:58→23:59)
[2018-04-29] MEDS: SUCRALFATE SUSP 1GM/10ML UD PO ×4 (07:30→21:00)
[2018-04-29] MEDS: LACTOBACILLUS ACIDOPHILUS CAP (BACID) PO ×2 (08:00→18:00)
[2018-04-29] MEDS: TIOTROPIUM INHALER/CAPSULE (SPIRIVA) INH (08:50)
[2018-04-29] MEDS: SYMBICORT 160/4.5MCG INHALER 6GM INH ×2 (08:51→21:33)
[2018-04-29] MEDS: DEXTROMETHORPHAN 60MG/10ML SUSP 90ML BTL(DELSYM) PO ×2 (09:00→21:00)
[2018-04-29] MEDS: EUCERIN 120GM CREAM TOP ×2 (09:00→21:00)
[2018-04-29] MEDS: PANTOPRAZOLE 40MG TAB (PROTONIX) PO (09:00)
[2018-04-29] MEDS: CALCIUM/VITAMIN D 500 MG TAB PO (09:00)
[2018-04-29 09:31] LABS: HEMATOCRIT 30.4 % (36.0-47.0); HEMOGLOBIN 9.8 g/dl (12.0-15.5); MEAN CORPUSCULAR HEMOGLOBIN 28.2 pg (27.0-33.0); MEAN CORPUSCULAR HGB CONC 32.2 g/dl (32.0-36.5); MEAN CORPUSCULAR VOLUME 87.4 fl (80.0-96.0); PLATELET COUNT, AUTOMATED 408 10^3/uL (150-450); RED BLOOD COUNT 3.48 10^6/uL (4.00-5.40); RED CELL DISTRIBUTION WIDTH 16.6 % (11.5-14.5)
[2018-04-29] MEDS: FUROSEMIDE 40 MG TAB PO (09:44)
[2018-04-29] MEDS: ATORVASTATIN 10 MG TAB PO (09:44)
[2018-04-29] MEDS: AZITHROMYCIN 250 MG TAB PO (09:44)
[2018-04-29] MEDS: ASPIRIN 81 MG ENTERIC TAB PO (09:44)
[2018-04-29] MEDS: predniSONE 20 MG TAB PO (09:45)
[2018-04-29] MEDS: APIXABAN 2.5 MG TAB (ELIQUIS) PO ×2 (09:45→20:48)
[2018-04-29 09:47] LABS: ANION GAP 5 MEQ/L (8-16); BLOOD UREA NITROGEN 38 MG/DL (7-18); C REACTIVE PROTEIN QUANTITATIV < 0.30 MG/DL (0.00-0.30); CALCIUM LEVEL 8.1 MG/DL (8.8-10.2); CARBON DIOXIDE LEVEL 35 MEQ/L (21-32); CHLORIDE LEVEL 99 MEQ/L (98-107); CREATININE FOR GFR 0.77 MG/DL (0.55-1.30); GLOMERULAR FILTRATION RATE > 60.0 (>32); GLUCOSE, FASTING 89 MG/DL (70-100); MAGNESIUM LEVEL 2.2 MG/DL (1.8-2.4); POTASSIUM SERUM 3.8 MEQ/L (3.5-5.1); SODIUM LEVEL 139 MEQ/L (136-145)
[2018-04-29 10:01] LABS: ERYTHROCYTE SEDIMENTATION RATE 45 mm/hr (0-30)
[2018-04-29] MEDS: TORSEMIDE 20 MG TAB PO (17:42)
[2018-04-30] MEDS: IPRATROPIUM 0.5MG/ALBUTEROL 2.5MG INH SOL UD 3ML (DUONEB)(J7620) NEB ×5 (02:57→20:00)
[2018-04-30] MEDS: SUCRALFATE SUSP 1GM/10ML UD PO ×4 (07:30→21:00)
[2018-04-30] MEDS: LACTOBACILLUS ACIDOPHILUS CAP (BACID) PO ×2 (08:00→16:48)
[2018-04-30] MEDS: APIXABAN 2.5 MG TAB (ELIQUIS) PO ×2 (08:35→21:00)
[2018-04-30] MEDS: predniSONE 20 MG TAB PO (08:35)
[2018-04-30] MEDS: ATORVASTATIN 10 MG TAB PO (08:35)
[2018-04-30] MEDS: TORSEMIDE 20 MG TAB PO ×2 (08:35→16:47)
[2018-04-30] MEDS: AZITHROMYCIN 250 MG TAB PO (08:35)
[2018-04-30] MEDS: CALCIUM/VITAMIN D 500 MG TAB PO (08:35)
[2018-04-30] MEDS: ASPIRIN 81 MG ENTERIC TAB PO (08:35)
[2018-04-30] MEDS: DEXTROMETHORPHAN 60MG/10ML SUSP 90ML BTL(DELSYM) PO ×2 (08:36→21:00)
[2018-04-30] MEDS: EUCERIN 120GM CREAM TOP ×2 (08:36→21:00)
[2018-04-30] MEDS: PANTOPRAZOLE 40MG TAB (PROTONIX) PO (08:36)
[2018-04-30] MEDS: TIOTROPIUM INHALER/CAPSULE (SPIRIVA) INH (09:40)
[2018-04-30] MEDS: SYMBICORT 160/4.5MCG INHALER 6GM INH ×2 (09:41→21:00)
[2018-05-01] MEDS ORDERED: TORSEMIDE 10 MG TABLET PO
[2018-05-01] MEDS: IPRATROPIUM 0.5MG/ALBUTEROL 2.5MG INH SOL UD 3ML (DUONEB)(J7620) NEB ×7 (00:04→23:56)
[2018-05-01] MEDS: SUCRALFATE SUSP 1GM/10ML UD PO ×4 (07:30→21:00)
[2018-05-01] MEDS: LACTOBACILLUS ACIDOPHILUS CAP (BACID) PO ×2 (08:00→17:14)
[2018-05-01] MEDS: TIOTROPIUM INHALER/CAPSULE (SPIRIVA) INH (08:06)
[2018-05-01] MEDS: SYMBICORT 160/4.5MCG INHALER 6GM INH ×2 (08:06→20:20)
[2018-05-01] MEDS: EUCERIN 120GM CREAM TOP ×2 (09:00→21:00)
[2018-05-01] MEDS: APIXABAN 2.5 MG TAB (ELIQUIS) PO ×3 (09:00→21:00)
[2018-05-01] MEDS: TORSEMIDE 20 MG TAB PO ×3 (09:00→17:16)
[2018-05-01] MEDS: DEXTROMETHORPHAN 60MG/10ML SUSP 90ML BTL(DELSYM) PO ×2 (09:00→21:00)
[2018-05-01] MEDS: PANTOPRAZOLE 40MG TAB (PROTONIX) PO (09:00)
[2018-05-01] MEDS: predniSONE 20 MG TAB PO ×2 (09:00→09:24)
[2018-05-01] MEDS: CALCIUM/VITAMIN D 500 MG TAB PO ×2 (09:00→09:25)
[2018-05-01] MEDS: ATORVASTATIN 10 MG TAB PO ×2 (09:00→09:24)
[2018-05-01 09:22] LABS: HEMATOCRIT 30.7 % (36.0-47.0); HEMOGLOBIN 9.9 g/dl (12.0-15.5); MEAN CORPUSCULAR HEMOGLOBIN 28.2 pg (27.0-33.0); MEAN CORPUSCULAR HGB CONC 32.2 g/dl (32.0-36.5); MEAN CORPUSCULAR VOLUME 87.5 fl (80.0-96.0); PLATELET COUNT, AUTOMATED 408 10^3/uL (150-450); RED BLOOD COUNT 3.51 10^6/uL (4.00-5.40); RED CELL DISTRIBUTION WIDTH 16.5 % (11.5-14.5); WHITE BLOOD COUNT 14.8 10^3/uL (4.0-10.0)
[2018-05-01] MEDS: ASPIRIN 81 MG ENTERIC TAB PO (09:24)
[2018-05-01 09:41] LABS: ANION GAP 8 MEQ/L (8-16); BLOOD UREA NITROGEN 39 MG/DL (7-18); CARBON DIOXIDE LEVEL 37 MEQ/L (21-32); CHLORIDE LEVEL 97 MEQ/L (98-107); CREATININE FOR GFR 0.84 MG/DL (0.55-1.30); GLOMERULAR FILTRATION RATE > 60.0 (>32); GLUCOSE, FASTING 77 MG/DL (70-100); MAGNESIUM LEVEL 2.1 MG/DL (1.8-2.4); POTASSIUM SERUM 3.6 MEQ/L (3.5-5.1); SODIUM LEVEL 142 MEQ/L (136-145)
[2018-05-02] MEDS: IPRATROPIUM 0.5MG/ALBUTEROL 2.5MG INH SOL UD 3ML (DUONEB)(J7620) NEB ×3 (03:23→11:40)
[2018-05-02 06:20] LABS: HEMATOCRIT 28.9 % (36.0-47.0); HEMOGLOBIN 9.2 g/dl (12.0-15.5); MEAN CORPUSCULAR HEMOGLOBIN 27.5 pg (27.0-33.0); MEAN CORPUSCULAR HGB CONC 31.8 g/dl (32.0-36.5); MEAN CORPUSCULAR VOLUME 86.3 fl (80.0-96.0); PLATELET COUNT, AUTOMATED 372 10^3/uL (150-450); RED BLOOD COUNT 3.35 10^6/uL (4.00-5.40); RED CELL DISTRIBUTION WIDTH 16.4 % (11.5-14.5); WHITE BLOOD COUNT 11.2 10^3/uL (4.0-10.0)
[2018-05-02 06:30] LABS: ANION GAP 9 MEQ/L (8-16); BLOOD UREA NITROGEN 37 MG/DL (7-18); CALCIUM LEVEL 8.2 MG/DL (8.8-10.2); CARBON DIOXIDE LEVEL 33 MEQ/L (21-32); CHLORIDE LEVEL 98 MEQ/L (98-107); CREATININE FOR GFR 0.79 MG/DL (0.55-1.30); GLOMERULAR FILTRATION RATE > 60.0 (>32); GLUCOSE, FASTING 96 MG/DL (70-100); SODIUM LEVEL 140 MEQ/L (136-145)
[2018-05-02] MEDS: SUCRALFATE SUSP 1GM/10ML UD PO ×2 (07:30→12:00)
[2018-05-02] MEDS: LACTOBACILLUS ACIDOPHILUS CAP (BACID) PO (08:00)
[2018-05-02] MEDS: SYMBICORT 160/4.5MCG INHALER 6GM INH (08:21)
[2018-05-02] MEDS: TIOTROPIUM INHALER/CAPSULE (SPIRIVA) INH (08:21)
[2018-05-02] MEDS: DEXTROMETHORPHAN 60MG/10ML SUSP 90ML BTL(DELSYM) PO (09:00)
[2018-05-02] MEDS: CALCIUM/VITAMIN D 500 MG TAB PO (09:00)
[2018-05-02] MEDS: ATORVASTATIN 10 MG TAB PO (09:00)
[2018-05-02] MEDS: PANTOPRAZOLE 40MG TAB (PROTONIX) PO (09:00)
[2018-05-02] MEDS: EUCERIN 120GM CREAM TOP (09:00)
[2018-05-02] MEDS: APIXABAN 2.5 MG TAB (ELIQUIS) PO (09:15)
[2018-05-02] MEDS: predniSONE 20 MG TAB PO (09:15)
[2018-05-02] MEDS: TORSEMIDE 20 MG TAB PO (09:15)
[2018-05-02] MEDS: ASPIRIN 81 MG ENTERIC TAB PO (09:15)
== END 2018-05-02 13:50 | disposition home or self-care (01) | DRG 191 ==
LOC: M ED 00:19 → M ED INP 08:29 → M MSPAV 11:35
DX: J44.1 Chronic obstructive pulmonary disease with (acute) exacerbation (principal); J96.11 Chronic respiratory failure with hypoxia; F41.9 Anxiety disorder, unspecified; I25.10 Atherosclerotic heart disease of native coronary artery without angina pectoris; I27.29 Other secondary pulmonary hypertension; I45.10 Unspecified right bundle-branch block; I87.2 Venous insufficiency (chronic) (peripheral); R07.89 Other chest pain; Z86.73 Personal history of transient ischemic attack (TIA), and cerebral infarction without residual deficits; Z86.13 Personal history of malaria; Z95.5 Presence of coronary angioplasty implant and graft; Z87.891 Personal history of nicotine dependence; Z88.1 Allergy status to other antibiotic agents; Z88.8 Allergy status to other drugs, medicaments and biological substances; Z91.19 Patient's noncompliance with other medical treatment and regimen; Z99.81 Dependence on supplemental oxygen; Z79.82 Long term (current) use of aspirin; Z79.52 Long term (current) use of systemic steroids; Z79.899 Other long term (current) drug therapy; Z86.718 Personal history of other venous thrombosis and embolism; Z79.01 Long term (current) use of anticoagulants

== ENCOUNTER 2018-05-31 13:16 | Inpatient (IN) | payer MEDICARE, OTHER ==
[2018-05-31] MEDS: IPRATROPIUM 0.5MG/ALBUTEROL 2.5MG INH SOL UD 3ML (DUONEB)(J7620) NEB ×2 (14:02→17:34)
[2018-05-31 14:13] LABS: BASO # 0.1 10^3/uL (0.0-0.2); BASO % 0.6 % (0.0-1.0); EOS # 0.2 10^3/uL (0.0-0.50); EOS % 2.6 % (0.0-3.0); HEMATOCRIT 31.8 % (36.0-47.0); HEMOGLOBIN 10.2 g/dl (12.0-15.5); IMMATURE GRANULOCYTE % 1.6 % (0-3.0); LYMPH # 1.3 10^3/uL (1.5-4.5); LYMPH % 15.4 % (24.0-44.0); MEAN CORPUSCULAR HEMOGLOBIN 28.7 pg (27.0-33.0); MEAN CORPUSCULAR HGB CONC 32.1 g/dl (32.0-36.5); MEAN CORPUSCULAR VOLUME 89.6 fl (80.0-96.0); MONO % 11.5 % (0.0-5.0); NEUTROPHILS # 5.9 10^3/uL (1.8-7.7); NEUTROPHILS % 68.3 % (36.0-66.0); PLATELET COUNT, AUTOMATED 351 10^3/uL (150-450); RED BLOOD COUNT 3.55 10^6/uL (4.00-5.40); RED CELL DISTRIBUTION WIDTH 17.2 % (11.5-14.5); WHITE BLOOD COUNT 8.6 10^3/uL (4.0-10.0)
[2018-05-31 14:41] LABS: ALBUMIN 3.5 GM/DL (3.2-5.2); ALBUMIN/GLOBULIN RATIO 0.95 (1.00-1.93); ALKALINE PHOSPHATASE 84 U/L (45-117); ALT/SGPT 22 U/L (12-78); ANION GAP 6 MEQ/L (8-16); AST/SGOT 22 U/L (7-37); BILIRUBIN,DIRECT 0.1 MG/DL (0.0-0.2); BILIRUBIN,TOTAL 0.5 MG/DL (0.2-1.0); BLOOD UREA NITROGEN 23 MG/DL (7-18); CALCIUM LEVEL 8.9 MG/DL (8.8-10.2); CARBON DIOXIDE LEVEL 31 MEQ/L (21-32); CHLORIDE LEVEL 104 MEQ/L (98-107); CPK CREATINE PHOSPHOKINASE 182 U/L (26-192); CREATININE FOR GFR 0.67 MG/DL (0.55-1.30); GLOMERULAR FILTRATION RATE > 60.0 (>32); GLUCOSE, FASTING 99 MG/DL (70-100); POTASSIUM SERUM 3.5 MEQ/L (3.5-5.1); SODIUM LEVEL 141 MEQ/L (136-145); TOTAL PROTEIN 7.2 GM/DL (6.4-8.2); TROPONIN I < 0.02 NG/ML (< 0.10)
[2018-05-31 14:46] LABS: CK-MB VALUE MASS 5.4 NG/ML (<3.6); MB/CK RELATIVE INDEX 2.96 (< OR =4); NT-PRO BNP 218 PG/ML (<450)
[2018-05-31] MEDS: methylPREDNISolone INJ 125 MG/2 ML VIAL (J2930) IV (16:15)
[2018-05-31] MEDS: AZITHROMYCIN 250 MG TAB PO (16:15)
[2018-05-31] MEDS ORDERED: ALBUTEROL 90 MCG/ACT 8GM HFA INHALER INH (22:45)
[2018-05-31] MEDS ORDERED: CETIRIZINE (ZyrTEC) 10 MG TAB PO (22:45)
[2018-05-31] MEDS ORDERED: IPRATROPIUM HFA INHALER 12.9 GRAMS (ATROVENT HFA) INH (22:45)
[2018-06-01] MEDS: methylPREDNISolone INJ 125 MG/2 ML VIAL (J2930) IV ×4 (00:07→23:09)
[2018-06-01] MEDS: LEVALBUTEROL 1.25 MG/0.5 ML CONCENTRATE NEB NEB ×4 (00:52→21:03)
[2018-06-01] MEDS: IPRATROPIUM 0.5MG/ALBUTEROL 2.5MG INH SOL UD 3ML (DUONEB)(J7620) NEB ×5 (03:40→23:09)
[2018-06-01] MEDS: TIOTROPIUM INHALER/CAPSULE (SPIRIVA) INH (07:45)
[2018-06-01] MEDS: ASPIRIN 81 MG ENTERIC TAB PO (08:37)
[2018-06-01] MEDS: CALCIUM/VITAMIN D 500 MG TAB PO (08:37)
[2018-06-01] MEDS: ENOXAPARIN 40 MG/0.4 ML SYRINGE (J1650) SC (08:38)
[2018-06-01 08:55] LABS: HEMOGLOBIN 9.6 g/dl (12.0-15.5); MEAN CORPUSCULAR HEMOGLOBIN 28.3 pg (27.0-33.0); MEAN CORPUSCULAR VOLUME 88.5 fl (80.0-96.0); PLATELET COUNT, AUTOMATED 326 10^3/uL (150-450); RED BLOOD COUNT 3.39 10^6/uL (4.00-5.40); RED CELL DISTRIBUTION WIDTH 17.3 % (11.5-14.5); WHITE BLOOD COUNT 9.8 10^3/uL (4.0-10.0)
[2018-06-01 09:18] LABS: ANION GAP 13 MEQ/L (8-16); BLOOD UREA NITROGEN 25 MG/DL (7-18); CALCIUM LEVEL 8.9 MG/DL (8.8-10.2); CARBON DIOXIDE LEVEL 25 MEQ/L (21-32); CHLORIDE LEVEL 103 MEQ/L (98-107); CREATININE FOR GFR 0.93 MG/DL (0.55-1.30); GLOMERULAR FILTRATION RATE > 60.0 (>32); GLUCOSE, FASTING 210 MG/DL (70-100); POTASSIUM SERUM 3.6 MEQ/L (3.5-5.1); SODIUM LEVEL 141 MEQ/L (136-145)
[2018-06-01] MEDS: VANCOMYCIN HCL 1,000 MG, VIAL MATE ADAPTER 1 EACH in D5W 250 ML IV (17:46)
[2018-06-02] MEDS: LEVALBUTEROL 1.25 MG/0.5 ML CONCENTRATE NEB NEB ×4 (01:27→20:10)
[2018-06-02] MEDS: IPRATROPIUM 0.5MG/ALBUTEROL 2.5MG INH SOL UD 3ML (DUONEB)(J7620) NEB ×2 (01:27→14:14)
[2018-06-02 08:47] LABS: HEMATOCRIT 31.4 % (36.0-47.0); MEAN CORPUSCULAR HEMOGLOBIN 28.4 pg (27.0-33.0); MEAN CORPUSCULAR HGB CONC 31.8 g/dl (32.0-36.5); MEAN CORPUSCULAR VOLUME 89.2 fl (80.0-96.0); PLATELET COUNT, AUTOMATED 354 10^3/uL (150-450); RED BLOOD COUNT 3.52 10^6/uL (4.00-5.40); RED CELL DISTRIBUTION WIDTH 17.8 % (11.5-14.5)
[2018-06-02 08:58] LABS: ANION GAP 10 MEQ/L (8-16); BLOOD UREA NITROGEN 30 MG/DL (7-18); CALCIUM LEVEL 9.3 MG/DL (8.8-10.2); CARBON DIOXIDE LEVEL 27 MEQ/L (21-32); CHLORIDE LEVEL 103 MEQ/L (98-107); CREATININE FOR GFR 0.93 MG/DL (0.55-1.30); GLOMERULAR FILTRATION RATE > 60.0 (>32); GLUCOSE, FASTING 172 MG/DL (70-100); SODIUM LEVEL 140 MEQ/L (136-145)
[2018-06-02] MEDS: ENOXAPARIN 40 MG/0.4 ML SYRINGE (J1650) SC (09:00)
[2018-06-02] MEDS: ASPIRIN 81 MG ENTERIC TAB PO (09:00)
[2018-06-02] MEDS: methylPREDNISolone INJ 125 MG/2 ML VIAL (J2930) IV ×3 (10:08→23:44)
[2018-06-02] MEDS: CALCIUM/VITAMIN D 500 MG TAB PO (10:08)
[2018-06-02] MEDS: SYMBICORT 160/4.5MCG INHALER 6GM INH (11:12)
[2018-06-02] MEDS: TIOTROPIUM INHALER/CAPSULE (SPIRIVA) INH (11:12)
[2018-06-03] MEDS: LEVALBUTEROL 1.25 MG/0.5 ML CONCENTRATE NEB NEB ×3 (00:36→08:50)
[2018-06-03] MEDS: IPRATROPIUM 0.5MG/ALBUTEROL 2.5MG INH SOL UD 3ML (DUONEB)(J7620) NEB (00:36)
[2018-06-03] MEDS: CALCIUM CARBONATE 500 MG CHEW U/D PO (01:16)
[2018-06-03 05:59] LABS: HEMATOCRIT 30.4 % (36.0-47.0); HEMOGLOBIN 9.6 g/dl (12.0-15.5); MEAN CORPUSCULAR HEMOGLOBIN 27.7 pg (27.0-33.0); MEAN CORPUSCULAR HGB CONC 31.6 g/dl (32.0-36.5); MEAN CORPUSCULAR VOLUME 87.6 fl (80.0-96.0); PLATELET COUNT, AUTOMATED 327 10^3/uL (150-450); RED BLOOD COUNT 3.47 10^6/uL (4.00-5.40); RED CELL DISTRIBUTION WIDTH 17.9 % (11.5-14.5); WHITE BLOOD COUNT 16.2 10^3/uL (4.0-10.0)
[2018-06-03 06:44] LABS: ANION GAP 11 MEQ/L (8-16); BLOOD UREA NITROGEN 35 MG/DL (7-18); CARBON DIOXIDE LEVEL 28 MEQ/L (21-32); CHLORIDE LEVEL 103 MEQ/L (98-107); CREATININE FOR GFR 0.86 MG/DL (0.55-1.30); GLOMERULAR FILTRATION RATE > 60.0 (>32); GLUCOSE, FASTING 188 MG/DL (70-100); POTASSIUM SERUM 4.2 MEQ/L (3.5-5.1); SODIUM LEVEL 142 MEQ/L (136-145)
[2018-06-03] MEDS: ENOXAPARIN 40 MG/0.4 ML SYRINGE (J1650) SC (08:47)
[2018-06-03] MEDS: ASPIRIN 81 MG ENTERIC TAB PO (08:47)
[2018-06-03] MEDS: CALCIUM/VITAMIN D 500 MG TAB PO (08:47)
[2018-06-03] MEDS: methylPREDNISolone INJ 125 MG/2 ML VIAL (J2930) IV ×3 (08:47→20:53)
[2018-06-03] MEDS: LEVALBUTEROL 1.25 MG/0.5 ML CONCENTRATE NEB INH ×4 (09:36→20:26)
[2018-06-03] MEDS: ALPRAZolam 0.25 MG TAB PO ×2 (10:22→20:53)
[2018-06-03] MEDS ORDERED: methylPREDNISolone INJ 125 MG/2 ML VIAL (J2930) IV (12:00)
[2018-06-04] MEDS: LEVALBUTEROL 1.25 MG/0.5 ML CONCENTRATE NEB INH ×9 (03:49→20:42)
[2018-06-04] MEDS: methylPREDNISolone INJ 125 MG/2 ML VIAL (J2930) IV ×5 (03:59→22:32)
[2018-06-04] MEDS: TIOTROPIUM INHALER/CAPSULE (SPIRIVA) INH (07:10)
[2018-06-04] MEDS: ENOXAPARIN 40 MG/0.4 ML SYRINGE (J1650) SC (09:00)
[2018-06-04 09:06] LABS: HEMATOCRIT 30.8 % (36.0-47.0); HEMOGLOBIN 9.8 g/dl (12.0-15.5); MEAN CORPUSCULAR HGB CONC 31.8 g/dl (32.0-36.5); PLATELET COUNT, AUTOMATED 300 10^3/uL (150-450); RED CELL DISTRIBUTION WIDTH 17.6 % (11.5-14.5); WHITE BLOOD COUNT 13.9 10^3/uL (4.0-10.0)
[2018-06-04] MEDS: CALCIUM/VITAMIN D 500 MG TAB PO (09:30)
[2018-06-04] MEDS: ASPIRIN 81 MG ENTERIC TAB PO (09:30)
[2018-06-04 09:43] LABS: ANION GAP 8 MEQ/L (8-16); BLOOD UREA NITROGEN 32 MG/DL (7-18); CALCIUM LEVEL 8.8 MG/DL (8.8-10.2); CARBON DIOXIDE LEVEL 31 MEQ/L (21-32); CHLORIDE LEVEL 105 MEQ/L (98-107); CREATININE FOR GFR 0.79 MG/DL (0.55-1.30); GLOMERULAR FILTRATION RATE > 60.0 (>32); GLUCOSE, FASTING 185 MG/DL (70-100); POTASSIUM SERUM 4.6 MEQ/L (3.5-5.1); SODIUM LEVEL 144 MEQ/L (136-145)
[2018-06-04] MEDS: ALPRAZolam 0.25 MG TAB PO ×2 (10:52→19:42)
[2018-06-04] MEDS: ACETAMINOPHEN TAB 650MG DOSE (2X325MG) PO (23:35)
[2018-06-05] MEDS: LEVALBUTEROL 1.25 MG/0.5 ML CONCENTRATE NEB INH ×9 (00:36→23:19)
[2018-06-05] MEDS: methylPREDNISolone INJ 125 MG/2 ML VIAL (J2930) IV ×4 (03:58→21:52)
[2018-06-05] MEDS: TIOTROPIUM INHALER/CAPSULE (SPIRIVA) INH (08:00)
[2018-06-05] MEDS: ENOXAPARIN 40 MG/0.4 ML SYRINGE (J1650) SC (09:00)
[2018-06-05] MEDS: ASPIRIN 81 MG ENTERIC TAB PO (09:30)
[2018-06-05] MEDS: CALCIUM/VITAMIN D 500 MG TAB PO (09:30)
[2018-06-05] MEDS: BUDESONIDE 0.5 MG/2 ML INHALATION SUSPENSION INH ×2 (10:18→18:32)
[2018-06-05 10:51] LABS: HEMATOCRIT 33.1 % (36.0-47.0); HEMOGLOBIN 10.6 g/dl (12.0-15.5); MEAN CORPUSCULAR HEMOGLOBIN 28.3 pg (27.0-33.0); MEAN CORPUSCULAR VOLUME 88.5 fl (80.0-96.0); PLATELET COUNT, AUTOMATED 355 10^3/uL (150-450); RED BLOOD COUNT 3.74 10^6/uL (4.00-5.40); RED CELL DISTRIBUTION WIDTH 17.7 % (11.5-14.5); WHITE BLOOD COUNT 19.9 10^3/uL (4.0-10.0)
[2018-06-05 11:15] LABS: ANION GAP 11 MEQ/L (8-16); BLOOD UREA NITROGEN 28 MG/DL (7-18); CALCIUM LEVEL 9.1 MG/DL (8.8-10.2); CARBON DIOXIDE LEVEL 28 MEQ/L (21-32); CHLORIDE LEVEL 102 MEQ/L (98-107); CREATININE FOR GFR 0.86 MG/DL (0.55-1.30); GLOMERULAR FILTRATION RATE > 60.0 (>32); GLUCOSE, FASTING 258 MG/DL (70-100); POTASSIUM SERUM 4.6 MEQ/L (3.5-5.1); SODIUM LEVEL 141 MEQ/L (136-145)
[2018-06-05] MEDS: FORMOTEROL FUMARATE 20 MCG/2 ML INHALATION SOLUTION (PERFOROMIST) INH ×2 (11:22→18:33)
[2018-06-05] MEDS: LORazepam 0.5 MG TAB PO ×2 (13:02→21:53)
[2018-06-05] MEDS: FUROSEMIDE 40 MG/4 ML VIAL (J1940) IV (15:39)
[2018-06-05 20:48] LABS: CPK CREATINE PHOSPHOKINASE 95 U/L (26-192); TROPONIN I < 0.02 NG/ML (< 0.10)
[2018-06-05 20:49] LABS: CK-MB VALUE MASS 6.8 NG/ML (<3.6); MB/CK RELATIVE INDEX 7.15 (< OR =4)
[2018-06-06] MEDS: ACETAMINOPHEN TAB 650MG DOSE (2X325MG) PO (00:44)
[2018-06-06] MEDS: LEVALBUTEROL 1.25 MG/0.5 ML CONCENTRATE NEB INH ×8 (00:55→23:34)
[2018-06-06] MEDS: KETOROLAC 30 MG/ML VIAL (J1885) IV (01:11)
[2018-06-06] MEDS: methylPREDNISolone INJ 125 MG/2 ML VIAL (J2930) IV ×4 (03:00→20:33)
[2018-06-06] MEDS: OMEPRAZOLE 20 MG CAP PO (03:38)
[2018-06-06] MEDS: NITROGLYCERIN 0.4 MG SUBL TABLET SL (04:29)
[2018-06-06 05:57] LABS: HEMATOCRIT 34.6 % (36.0-47.0); HEMOGLOBIN 11.2 g/dl (12.0-15.5); MEAN CORPUSCULAR HEMOGLOBIN 28.3 pg (27.0-33.0); MEAN CORPUSCULAR HGB CONC 32.4 g/dl (32.0-36.5); MEAN CORPUSCULAR VOLUME 87.4 fl (80.0-96.0); PLATELET COUNT, AUTOMATED 381 10^3/uL (150-450); RED BLOOD COUNT 3.96 10^6/uL (4.00-5.40); RED CELL DISTRIBUTION WIDTH 17.6 % (11.5-14.5); WHITE BLOOD COUNT 22.4 10^3/uL (4.0-10.0)
[2018-06-06 06:08] LABS: ANION GAP 9 MEQ/L (8-16); BLOOD UREA NITROGEN 41 MG/DL (7-18); CALCIUM LEVEL 8.7 MG/DL (8.8-10.2); CARBON DIOXIDE LEVEL 30 MEQ/L (21-32); CHLORIDE LEVEL 98 MEQ/L (98-107); CREATININE FOR GFR 1.09 MG/DL (0.55-1.30); GLOMERULAR FILTRATION RATE 50.9 (>32); GLUCOSE, FASTING 275 MG/DL (70-100); POTASSIUM SERUM 4.9 MEQ/L (3.5-5.1); SODIUM LEVEL 137 MEQ/L (136-145)
[2018-06-06] MEDS: FORMOTEROL FUMARATE 20 MCG/2 ML INHALATION SOLUTION (PERFOROMIST) INH ×2 (07:09→20:44)
[2018-06-06] MEDS: BUDESONIDE 0.5 MG/2 ML INHALATION SUSPENSION INH ×2 (07:10→20:44)
[2018-06-06] MEDS: TIOTROPIUM INHALER/CAPSULE (SPIRIVA) INH (07:10)
[2018-06-06] MEDS: ENOXAPARIN 40 MG/0.4 ML SYRINGE (J1650) SC (09:00)
[2018-06-06] MEDS: ASPIRIN 81 MG ENTERIC TAB PO (10:03)
[2018-06-06] MEDS: CALCIUM/VITAMIN D 500 MG TAB PO (10:04)
[2018-06-06] MEDS: FUROSEMIDE 40 MG/4 ML VIAL (J1940) IV (10:04)
[2018-06-06] MEDS: LORazepam 0.5 MG TAB PO (16:42)
[2018-06-06] MEDS: guaiFENesin ER 600 MG TAB PO (22:46)
[2018-06-07] MEDS: LEVALBUTEROL 1.25 MG/0.5 ML CONCENTRATE NEB INH ×10 (00:51→23:49)
[2018-06-07] MEDS: methylPREDNISolone INJ 125 MG/2 ML VIAL (J2930) IV ×2 (04:00→10:20)
[2018-06-07] MEDS: TIOTROPIUM INHALER/CAPSULE (SPIRIVA) INH (07:51)
[2018-06-07] MEDS: FORMOTEROL FUMARATE 20 MCG/2 ML INHALATION SOLUTION (PERFOROMIST) INH ×2 (07:51→20:19)
[2018-06-07] MEDS: BUDESONIDE 0.5 MG/2 ML INHALATION SUSPENSION INH ×2 (07:51→20:19)
[2018-06-07 08:20] LABS: HEMATOCRIT 30.2 % (36.0-47.0); HEMOGLOBIN 9.9 g/dl (12.0-15.5); MEAN CORPUSCULAR HEMOGLOBIN 28.4 pg (27.0-33.0); MEAN CORPUSCULAR HGB CONC 32.8 g/dl (32.0-36.5); MEAN CORPUSCULAR VOLUME 86.5 fl (80.0-96.0); PLATELET COUNT, AUTOMATED 298 10^3/uL (150-450); RED BLOOD COUNT 3.49 10^6/uL (4.00-5.40); RED CELL DISTRIBUTION WIDTH 17.8 % (11.5-14.5); WHITE BLOOD COUNT 18.9 10^3/uL (4.0-10.0)
[2018-06-07 08:48] LABS: ANION GAP 10 MEQ/L (8-16); BLOOD UREA NITROGEN 41 MG/DL (7-18); CALCIUM LEVEL 8.3 MG/DL (8.8-10.2); CARBON DIOXIDE LEVEL 31 MEQ/L (21-32); CHLORIDE LEVEL 98 MEQ/L (98-107); CREATININE FOR GFR 0.92 MG/DL (0.55-1.30); GLOMERULAR FILTRATION RATE > 60.0 (>32); GLUCOSE, FASTING 251 MG/DL (70-100); POTASSIUM SERUM 4.9 MEQ/L (3.5-5.1); SODIUM LEVEL 139 MEQ/L (136-145)
[2018-06-07] MEDS: ENOXAPARIN 40 MG/0.4 ML SYRINGE (J1650) SC (09:00)
[2018-06-07] MEDS: ASPIRIN 81 MG ENTERIC TAB PO (10:19)
[2018-06-07] MEDS: CALCIUM/VITAMIN D 500 MG TAB PO ×2 (10:19→11:21)
[2018-06-07] MEDS: FUROSEMIDE 40 MG/4 ML VIAL (J1940) IV ×2 (10:20→17:28)
[2018-06-07] MEDS: NITROGLYCERIN 0.4 MG SUBL TABLET SL ×3 (10:20→20:59)
[2018-06-07] MEDS: LORazepam 0.5 MG TAB PO ×2 (10:43→17:29)
[2018-06-07] MEDS ORDERED: methylPREDNISolone INJ 40 MG/1 ML VIAL (J2920) IV (15:00)
[2018-06-07] MEDS: methylPREDNISolone INJ 40 MG/1 ML VIAL (J2920) IV (17:29)
[2018-06-08] MEDS: methylPREDNISolone INJ 40 MG/1 ML VIAL (J2920) IV ×3 (02:26→17:01)
[2018-06-08] MEDS: LORazepam 0.5 MG TAB PO ×2 (03:40→11:47)
[2018-06-08] MEDS: FORMOTEROL FUMARATE 20 MCG/2 ML INHALATION SOLUTION (PERFOROMIST) INH ×2 (07:34→19:36)
[2018-06-08] MEDS: BUDESONIDE 0.5 MG/2 ML INHALATION SUSPENSION INH ×2 (07:34→19:36)
[2018-06-08] MEDS: TIOTROPIUM INHALER/CAPSULE (SPIRIVA) INH (07:35)
[2018-06-08] MEDS: LEVALBUTEROL 1.25 MG/0.5 ML CONCENTRATE NEB INH ×9 (07:35→22:31)
[2018-06-08] MEDS: guaiFENesin ER 600 MG TAB PO ×2 (09:29→20:32)
[2018-06-08] MEDS: CALCIUM/VITAMIN D 500 MG TAB PO (09:29)
[2018-06-08] MEDS: ENOXAPARIN 40 MG/0.4 ML SYRINGE (J1650) SC (09:29)
[2018-06-08] MEDS: FUROSEMIDE 40 MG/4 ML VIAL (J1940) IV ×2 (09:29→17:01)
[2018-06-08] MEDS: ASPIRIN 81 MG ENTERIC TAB PO ×2 (09:29→09:30)
[2018-06-08 10:29] LABS: ABG BASE EXCESS 5.4 (-2.0-2.0); ABG HCO3 29.5 MEQ/L (22.0-26.0); ABG O2 SATURATION 98.1 % (95.0-99.0); ABG PARTIAL PRESSURE CO2 41.3 mmHg (35.0-45.0); ABG STANDARD HCO3 29.4 MEQ/L (22.0-26.0); ABG TOTAL CO2 30.8 MEQ/L (23.0-31.0); ABG pH (ARTERIAL) 7.472 UNITS (7.350-7.450)
[2018-06-08] MEDS: ALPRAZolam 0.25 MG TAB PO ×2 (15:58→22:32)
[2018-06-08] MEDS: diphenhydrAMINE INJ 50MG/ML VIAL (J1200) IV (17:01)
[2018-06-08] MEDS: ONDANSETRON 4MG/2ML VIAL (J2405) IV (21:10)
[2018-06-09] MEDS: LEVALBUTEROL 1.25 MG/0.5 ML CONCENTRATE NEB INH ×6 (00:11→20:00)
[2018-06-09] MEDS: methylPREDNISolone INJ 40 MG/1 ML VIAL (J2920) IV ×3 (02:18→17:34)
[2018-06-09] MEDS: OMEPRAZOLE 20 MG CAP PO (04:09)
[2018-06-09] MEDS: ACETAMINOPHEN TAB 650MG DOSE (2X325MG) PO (04:14)
[2018-06-09] MEDS: TIOTROPIUM INHALER/CAPSULE (SPIRIVA) INH (08:19)
[2018-06-09] MEDS: FORMOTEROL FUMARATE 20 MCG/2 ML INHALATION SOLUTION (PERFOROMIST) INH ×2 (08:19→20:00)
[2018-06-09] MEDS: BUDESONIDE 0.5 MG/2 ML INHALATION SUSPENSION INH ×2 (08:19→20:00)
[2018-06-09] MEDS: ENOXAPARIN 40 MG/0.4 ML SYRINGE (J1650) SC (09:00)
[2018-06-09] MEDS: CALCIUM/VITAMIN D 500 MG TAB PO ×2 (09:00→09:14)
[2018-06-09] MEDS: ASPIRIN 81 MG ENTERIC TAB PO (09:14)
[2018-06-09] MEDS: ALPRAZolam 0.25 MG TAB PO (09:14)
[2018-06-09] MEDS: MORPHINE 10MG/0.5ML ORAL CONCENTRATE SOLUTION U/D SL ×2 (09:17→17:33)
[2018-06-09] MEDS: FUROSEMIDE 40 MG/4 ML VIAL (J1940) IV ×2 (09:17→17:34)
[2018-06-10] MEDS: LEVALBUTEROL 1.25 MG/0.5 ML CONCENTRATE NEB INH ×4 (02:00→19:31)
[2018-06-10] MEDS: methylPREDNISolone INJ 40 MG/1 ML VIAL (J2920) IV ×3 (02:40→18:10)
[2018-06-10] MEDS: MORPHINE 10MG/0.5ML ORAL CONCENTRATE SOLUTION U/D SL ×3 (04:48→23:11)
[2018-06-10] MEDS: BUDESONIDE 0.5 MG/2 ML INHALATION SUSPENSION INH ×2 (06:35→19:31)
[2018-06-10] MEDS: FORMOTEROL FUMARATE 20 MCG/2 ML INHALATION SOLUTION (PERFOROMIST) INH ×2 (06:35→19:31)
[2018-06-10] MEDS: guaiFENesin ER 600 MG TAB PO (08:06)
[2018-06-10] MEDS: ASPIRIN 81 MG ENTERIC TAB PO (08:07)
[2018-06-10] MEDS: ALPRAZolam 0.25 MG TAB PO ×2 (08:07→21:17)
[2018-06-10] MEDS: ACETAMINOPHEN TAB 650MG DOSE (2X325MG) PO (08:07)
[2018-06-10] MEDS: FUROSEMIDE 40 MG/4 ML VIAL (J1940) IV ×2 (08:08→18:10)
[2018-06-10] MEDS: TIOTROPIUM INHALER/CAPSULE (SPIRIVA) INH (08:46)
[2018-06-10] MEDS: ENOXAPARIN 40 MG/0.4 ML SYRINGE (J1650) SC (09:00)
[2018-06-10] MEDS: CALCIUM/VITAMIN D 500 MG TAB PO (09:00)
[2018-06-11] MEDS: methylPREDNISolone INJ 40 MG/1 ML VIAL (J2920) IV ×3 (02:46→22:20)
[2018-06-11] MEDS: LEVALBUTEROL 1.25 MG/0.5 ML CONCENTRATE NEB INH ×6 (02:58→20:00)
[2018-06-11] MEDS: MORPHINE 10MG/0.5ML ORAL CONCENTRATE SOLUTION U/D SL ×2 (05:40→10:39)
[2018-06-11] MEDS: BUDESONIDE 0.5 MG/2 ML INHALATION SUSPENSION INH ×2 (07:54→20:58)
[2018-06-11] MEDS: FORMOTEROL FUMARATE 20 MCG/2 ML INHALATION SOLUTION (PERFOROMIST) INH ×2 (07:55→20:58)
[2018-06-11] MEDS: TIOTROPIUM INHALER/CAPSULE (SPIRIVA) INH (07:55)
[2018-06-11] MEDS: CALCIUM/VITAMIN D 500 MG TAB PO (08:27)
[2018-06-11] MEDS: ALPRAZolam 0.25 MG TAB PO ×2 (08:27→19:33)
[2018-06-11] MEDS: FUROSEMIDE 40 MG/4 ML VIAL (J1940) IV ×2 (08:27→16:43)
[2018-06-11] MEDS: ASPIRIN 81 MG ENTERIC TAB PO (08:27)
[2018-06-11] MEDS: ENOXAPARIN 40 MG/0.4 ML SYRINGE (J1650) SC (08:28)
[2018-06-11 10:51] LABS: BASO % 0.2 % (0.0-1.0); HEMATOCRIT 33.9 % (36.0-47.0); HEMOGLOBIN 11.2 g/dl (12.0-15.5); IMMATURE GRANULOCYTE % 4.4 % (0-3.0); LYMPH # 0.4 10^3/uL (1.5-4.5); LYMPH % 1.7 % (24.0-44.0); MEAN CORPUSCULAR HEMOGLOBIN 28.6 pg (27.0-33.0); MEAN CORPUSCULAR VOLUME 86.5 fl (80.0-96.0); MONO # 0.7 10^3/uL (0.0-0.8); MONO % 3.2 % (0.0-5.0); NEUTROPHILS # 19.3 10^3/uL (1.8-7.7); NEUTROPHILS % 90.5 % (36.0-66.0); PLATELET COUNT, AUTOMATED 320 10^3/uL (150-450); RED BLOOD COUNT 3.92 10^6/uL (4.00-5.40); RED CELL DISTRIBUTION WIDTH 17.9 % (11.5-14.5); WHITE BLOOD COUNT 21.3 10^3/uL (4.0-10.0)
[2018-06-11 11:06] LABS: ANION GAP 8 MEQ/L (8-16); BLOOD UREA NITROGEN 41 MG/DL (7-18); CALCIUM LEVEL 8.2 MG/DL (8.8-10.2); CARBON DIOXIDE LEVEL 36 MEQ/L (21-32); CHLORIDE LEVEL 90 MEQ/L (98-107); CREATININE FOR GFR 1.02 MG/DL (0.55-1.30); GLOMERULAR FILTRATION RATE 54.8 (>32); GLUCOSE, FASTING 367 MG/DL (70-100); POTASSIUM SERUM 4.4 MEQ/L (3.5-5.1); SODIUM LEVEL 134 MEQ/L (136-145)
[2018-06-12] MEDS: LEVALBUTEROL 1.25 MG/0.5 ML CONCENTRATE NEB INH ×5 (02:00→23:43)
[2018-06-12] MEDS: TIOTROPIUM INHALER/CAPSULE (SPIRIVA) INH (08:14)
[2018-06-12] MEDS: FORMOTEROL FUMARATE 20 MCG/2 ML INHALATION SOLUTION (PERFOROMIST) INH ×2 (08:14→20:50)
[2018-06-12] MEDS: BUDESONIDE 0.5 MG/2 ML INHALATION SUSPENSION INH ×2 (08:14→20:50)
[2018-06-12] MEDS: CALCIUM/VITAMIN D 500 MG TAB PO (08:55)
[2018-06-12] MEDS: ENOXAPARIN 40 MG/0.4 ML SYRINGE (J1650) SC (08:55)
[2018-06-12] MEDS: FUROSEMIDE 40 MG/4 ML VIAL (J1940) IV ×2 (09:04→16:58)
[2018-06-12] MEDS: ALPRAZolam 0.25 MG TAB PO (09:04)
[2018-06-12] MEDS: ASPIRIN 81 MG ENTERIC TAB PO (09:04)
[2018-06-12] MEDS: methylPREDNISolone INJ 40 MG/1 ML VIAL (J2920) IV ×2 (09:05→22:35)
[2018-06-13] MEDS: LEVALBUTEROL 1.25 MG/0.5 ML CONCENTRATE NEB INH ×6 (02:14→20:00)
[2018-06-13] MEDS: FORMOTEROL FUMARATE 20 MCG/2 ML INHALATION SOLUTION (PERFOROMIST) INH ×2 (07:12→21:04)
[2018-06-13] MEDS: TIOTROPIUM INHALER/CAPSULE (SPIRIVA) INH (07:12)
[2018-06-13] MEDS: BUDESONIDE 0.5 MG/2 ML INHALATION SUSPENSION INH ×2 (07:12→21:04)
[2018-06-13 07:49] LABS: BASO # 0.1 10^3/uL (0.0-0.2); BASO % 0.3 % (0.0-1.0); HEMATOCRIT 30.9 % (36.0-47.0); HEMOGLOBIN 9.9 g/dl (12.0-15.5); IMMATURE GRANULOCYTE % 4.9 % (0-3.0); LYMPH # 0.6 10^3/uL (1.5-4.5); MEAN CORPUSCULAR HEMOGLOBIN 28.3 pg (27.0-33.0); MEAN CORPUSCULAR VOLUME 88.3 fl (80.0-96.0); NEUTROPHILS # 18.2 10^3/uL (1.8-7.7); NEUTROPHILS % 86.8 % (36.0-66.0); PLATELET COUNT, AUTOMATED 267 10^3/uL (150-450); RED CELL DISTRIBUTION WIDTH 18.1 % (11.5-14.5); WHITE BLOOD COUNT 20.9 10^3/uL (4.0-10.0)
[2018-06-13 08:29] LABS: ANION GAP 7 MEQ/L (8-16); BLOOD UREA NITROGEN 31 MG/DL (7-18); CALCIUM LEVEL 8.3 MG/DL (8.8-10.2); CARBON DIOXIDE LEVEL 36 MEQ/L (21-32); CHLORIDE LEVEL 95 MEQ/L (98-107); CREATININE FOR GFR 0.81 MG/DL (0.55-1.30); GLOMERULAR FILTRATION RATE > 60.0 (>32); GLUCOSE, FASTING 282 MG/DL (70-100); NT-PRO BNP 669 PG/ML (<450); POTASSIUM SERUM 4.2 MEQ/L (3.5-5.1); SODIUM LEVEL 138 MEQ/L (136-145)
[2018-06-13] MEDS: ASPIRIN 81 MG ENTERIC TAB PO (09:19)
[2018-06-13] MEDS: CALCIUM/VITAMIN D 500 MG TAB PO (09:19)
[2018-06-13] MEDS: FUROSEMIDE 40 MG/4 ML VIAL (J1940) IV ×3 (09:20→17:20)
[2018-06-13] MEDS: ENOXAPARIN 40 MG/0.4 ML SYRINGE (J1650) SC (09:20)
[2018-06-13] MEDS: methylPREDNISolone INJ 40 MG/1 ML VIAL (J2920) IV (09:20)
[2018-06-13] MEDS: AZITHROMYCIN 250 MG TAB PO (12:52)
[2018-06-13] MEDS: ALPRAZolam 0.25 MG TAB PO ×2 (13:03→21:50)
[2018-06-13] MEDS: predniSONE 20 MG TAB PO (21:50)
[2018-06-14] MEDS: LEVALBUTEROL 1.25 MG/0.5 ML CONCENTRATE NEB INH ×7 (02:00→20:00)
[2018-06-14] MEDS: BUDESONIDE 0.5 MG/2 ML INHALATION SUSPENSION INH ×2 (07:05→20:39)
[2018-06-14] MEDS: FORMOTEROL FUMARATE 20 MCG/2 ML INHALATION SOLUTION (PERFOROMIST) INH ×2 (07:05→20:39)
[2018-06-14] MEDS: TIOTROPIUM INHALER/CAPSULE (SPIRIVA) INH (07:06)
[2018-06-14] MEDS: ENOXAPARIN 40 MG/0.4 ML SYRINGE (J1650) SC (09:00)
[2018-06-14] MEDS: CALCIUM/VITAMIN D 500 MG TAB PO (10:05)
[2018-06-14] MEDS: FUROSEMIDE 40 MG/4 ML VIAL (J1940) IV (10:05)
[2018-06-14] MEDS: predniSONE 20 MG TAB PO (10:06)
[2018-06-14] MEDS: ASPIRIN 81 MG ENTERIC TAB PO (10:06)
[2018-06-14] MEDS: AZITHROMYCIN 250 MG TAB PO (10:06)
[2018-06-14] MEDS: ALPRAZolam 0.25 MG TAB PO ×2 (11:37→15:56)
[2018-06-14] MEDS: FUROSEMIDE 40 MG TAB PO (15:57)
[2018-06-15] MEDS: LEVALBUTEROL 1.25 MG/0.5 ML CONCENTRATE NEB INH ×4 (01:34→20:00)
[2018-06-15] MEDS: TIOTROPIUM INHALER/CAPSULE (SPIRIVA) INH (07:03)
[2018-06-15] MEDS: BUDESONIDE 0.5 MG/2 ML INHALATION SUSPENSION INH ×2 (07:03→20:19)
[2018-06-15] MEDS: FORMOTEROL FUMARATE 20 MCG/2 ML INHALATION SOLUTION (PERFOROMIST) INH ×2 (07:03→20:19)
[2018-06-15 07:12] LABS: BASO % 0.1 % (0.0-1.0); EOS # 0.1 10^3/uL (0.0-0.50); EOS % 0.2 % (0.0-3.0); HEMATOCRIT 32.3 % (36.0-47.0); HEMOGLOBIN 10.6 g/dl (12.0-15.5); IMMATURE GRANULOCYTE % 3.6 % (0-3.0); LYMPH # 1.5 10^3/uL (1.5-4.5); MEAN CORPUSCULAR HEMOGLOBIN 28.5 pg (27.0-33.0); MEAN CORPUSCULAR HGB CONC 32.8 g/dl (32.0-36.5); MEAN CORPUSCULAR VOLUME 86.8 fl (80.0-96.0); MONO # 1.5 10^3/uL (0.0-0.8); MONO % 5.8 % (0.0-5.0); NEUTROPHILS % 84.3 % (36.0-66.0); PLATELET COUNT, AUTOMATED 287 10^3/uL (150-450); RED BLOOD COUNT 3.72 10^6/uL (4.00-5.40); RED CELL DISTRIBUTION WIDTH 18.2 % (11.5-14.5)
[2018-06-15 07:25] LABS: BLOOD UREA NITROGEN 31 MG/DL (7-18); CALCIUM LEVEL 8.5 MG/DL (8.8-10.2); CARBON DIOXIDE LEVEL 38 MEQ/L (21-32); CHLORIDE LEVEL 95 MEQ/L (98-107); CREATININE FOR GFR 0.72 MG/DL (0.55-1.30); GLOMERULAR FILTRATION RATE > 60.0 (>32); GLUCOSE, FASTING 142 MG/DL (70-100); POTASSIUM SERUM 3.1 MEQ/L (3.5-5.1)
[2018-06-15 07:29] LABS: ANION GAP 6 MEQ/L (8-16); SODIUM LEVEL 139 MEQ/L (136-145)
[2018-06-15] MEDS: ENOXAPARIN 40 MG/0.4 ML SYRINGE (J1650) SC (09:00)
[2018-06-15] MEDS: AZITHROMYCIN 250 MG TAB PO (09:25)
[2018-06-15] MEDS: FUROSEMIDE 40 MG TAB PO ×2 (09:25→17:00)
[2018-06-15] MEDS: CALCIUM/VITAMIN D 500 MG TAB PO (09:25)
[2018-06-15] MEDS: predniSONE 20 MG TAB PO (09:26)
[2018-06-15] MEDS: ASPIRIN 81 MG ENTERIC TAB PO (09:26)
[2018-06-16] MEDS: LEVALBUTEROL 1.25 MG/0.5 ML CONCENTRATE NEB INH ×5 (02:00→20:00)
[2018-06-16] MEDS ORDERED: PIPERACILLIN/TAZOBACTAM SOD 2.25 GM in D5W MINI-BAG PLUS 50 ML IV (06:00)
[2018-06-16] MEDS: TIOTROPIUM INHALER/CAPSULE (SPIRIVA) INH (07:08)
[2018-06-16] MEDS: BUDESONIDE 0.5 MG/2 ML INHALATION SUSPENSION INH ×2 (07:08→19:47)
[2018-06-16] MEDS: FORMOTEROL FUMARATE 20 MCG/2 ML INHALATION SOLUTION (PERFOROMIST) INH ×2 (07:08→19:47)
[2018-06-16 08:01] LABS: BASO % 0.1 % (0.0-1.0); EOS # 0.1 10^3/uL (0.0-0.50); EOS % 0.6 % (0.0-3.0); HEMATOCRIT 33.1 % (36.0-47.0); HEMOGLOBIN 10.8 g/dl (12.0-15.5); IMMATURE GRANULOCYTE % 3.3 % (0-3.0); LYMPH # 1.4 10^3/uL (1.5-4.5); MEAN CORPUSCULAR HEMOGLOBIN 28.7 pg (27.0-33.0); MEAN CORPUSCULAR HGB CONC 32.6 g/dl (32.0-36.5); NEUTROPHILS # 14.3 10^3/uL (1.8-7.7); PLATELET COUNT, AUTOMATED 282 10^3/uL (150-450); RED BLOOD COUNT 3.76 10^6/uL (4.00-5.40); RED CELL DISTRIBUTION WIDTH 17.9 % (11.5-14.5); WHITE BLOOD COUNT 17.4 10^3/uL (4.0-10.0)
[2018-06-16 08:03] LABS: REASON FOR REVIEW WBC/LEUKEMIA/BLAST; SLIDE REVIEW Report; SOURCE PERIPHERAL SMEAR
[2018-06-16 08:29] LABS: ANION GAP 8 MEQ/L (8-16); BLOOD UREA NITROGEN 22 MG/DL (7-18); CALCIUM LEVEL 8.7 MG/DL (8.8-10.2); CARBON DIOXIDE LEVEL 38 MEQ/L (21-32); CHLORIDE LEVEL 95 MEQ/L (98-107); CREATININE FOR GFR 0.58 MG/DL (0.55-1.30); GLOMERULAR FILTRATION RATE > 60.0 (>32); GLUCOSE, FASTING 94 MG/DL (70-100); NT-PRO BNP 714 PG/ML (<450); POTASSIUM SERUM 3.2 MEQ/L (3.5-5.1); SODIUM LEVEL 141 MEQ/L (136-145)
[2018-06-16] MEDS: AUGMENTIN 875 MG TAB PO ×2 (08:29→20:24)
[2018-06-16] MEDS: ASPIRIN 81 MG ENTERIC TAB PO (08:29)
[2018-06-16] MEDS: predniSONE 20 MG TAB PO (08:29)
[2018-06-16] MEDS: CALCIUM/VITAMIN D 500 MG TAB PO (08:30)
[2018-06-16] MEDS: FUROSEMIDE 40 MG TAB PO ×2 (08:30→17:00)
[2018-06-16] MEDS: ENOXAPARIN 40 MG/0.4 ML SYRINGE (J1650) SC (08:30)
[2018-06-16] MEDS: POTASSIUM CHLORIDE 10 MEQ SR TABLET PO (11:07)
[2018-06-16] MEDS: ALPRAZolam 0.25 MG TAB PO (23:32)
[2018-06-17] MEDS: LEVALBUTEROL 1.25 MG/0.5 ML CONCENTRATE NEB INH ×8 (01:50→21:20)
[2018-06-17 06:35] LABS: BASO % 0.2 % (0.0-1.0); EOS # 0.1 10^3/uL (0.0-0.50); EOS % 0.8 % (0.0-3.0); HEMATOCRIT 29.6 % (36.0-47.0); HEMOGLOBIN 9.5 g/dl (12.0-15.5); LYMPH # 1.4 10^3/uL (1.5-4.5); LYMPH % 9.7 % (24.0-44.0); MEAN CORPUSCULAR HEMOGLOBIN 28.4 pg (27.0-33.0); MEAN CORPUSCULAR HGB CONC 32.1 g/dl (32.0-36.5); MEAN CORPUSCULAR VOLUME 88.4 fl (80.0-96.0); MONO # 0.9 10^3/uL (0.0-0.8); NEUTROPHILS % 78.3 % (36.0-66.0); PLATELET COUNT, AUTOMATED 233 10^3/uL (150-450); RED BLOOD COUNT 3.35 10^6/uL (4.00-5.40); RED CELL DISTRIBUTION WIDTH 18.3 % (11.5-14.5); WHITE BLOOD COUNT 14.1 10^3/uL (4.0-10.0)
[2018-06-17 06:52] LABS: ANION GAP 5 MEQ/L (8-16); BLOOD UREA NITROGEN 24 MG/DL (7-18); CALCIUM LEVEL 8.1 MG/DL (8.8-10.2); CARBON DIOXIDE LEVEL 37 MEQ/L (21-32); CHLORIDE LEVEL 99 MEQ/L (98-107); CREATININE FOR GFR 0.65 MG/DL (0.55-1.30); GLOMERULAR FILTRATION RATE > 60.0 (>32); GLUCOSE, FASTING 110 MG/DL (70-100); POTASSIUM SERUM 3.6 MEQ/L (3.5-5.1); SODIUM LEVEL 141 MEQ/L (136-145)
[2018-06-17] MEDS: TIOTROPIUM INHALER/CAPSULE (SPIRIVA) INH (07:11)
[2018-06-17] MEDS: BUDESONIDE 0.5 MG/2 ML INHALATION SUSPENSION INH ×2 (07:11→19:50)
[2018-06-17] MEDS: FORMOTEROL FUMARATE 20 MCG/2 ML INHALATION SOLUTION (PERFOROMIST) INH ×2 (07:11→19:50)
[2018-06-17] MEDS: LACTOBACILLUS ACIDOPHILUS CAP (BACID) PO ×4 (08:00→18:20)
[2018-06-17] MEDS: CALCIUM/VITAMIN D 500 MG TAB PO ×2 (09:00→10:37)
[2018-06-17] MEDS: ASPIRIN 81 MG ENTERIC TAB PO (10:36)
[2018-06-17] MEDS: CEFDINIR 300 MG CAP (OMNICEF) PO ×2 (10:36→21:33)
[2018-06-17] MEDS: predniSONE 20 MG TAB PO (10:36)
[2018-06-17] MEDS: FUROSEMIDE 40 MG TAB PO ×2 (10:36→18:20)
[2018-06-17] MEDS: ENOXAPARIN 40 MG/0.4 ML SYRINGE (J1650) SC (10:37)
[2018-06-18] MEDS: LEVALBUTEROL 1.25 MG/0.5 ML CONCENTRATE NEB INH ×6 (00:15→19:16)
[2018-06-18 06:12] LABS: BASO % 0.1 % (0.0-1.0); EOS # 0.1 10^3/uL (0.0-0.50); EOS % 0.5 % (0.0-3.0); HEMATOCRIT 29.5 % (36.0-47.0); HEMOGLOBIN 9.7 g/dl (12.0-15.5); IMMATURE GRANULOCYTE % 3.6 % (0-3.0); LYMPH % 7.1 % (24.0-44.0); MEAN CORPUSCULAR HEMOGLOBIN 28.7 pg (27.0-33.0); MEAN CORPUSCULAR HGB CONC 32.9 g/dl (32.0-36.5); MEAN CORPUSCULAR VOLUME 87.3 fl (80.0-96.0); MONO # 0.8 10^3/uL (0.0-0.8); MONO % 5.7 % (0.0-5.0); NEUTROPHILS # 12.1 10^3/uL (1.8-7.7); PLATELET COUNT, AUTOMATED 229 10^3/uL (150-450); RED BLOOD COUNT 3.38 10^6/uL (4.00-5.40); RED CELL DISTRIBUTION WIDTH 18.2 % (11.5-14.5); WHITE BLOOD COUNT 14.6 10^3/uL (4.0-10.0)
[2018-06-18 06:38] LABS: ANION GAP 8 MEQ/L (8-16); BLOOD UREA NITROGEN 22 MG/DL (7-18); CALCIUM LEVEL 8.1 MG/DL (8.8-10.2); CARBON DIOXIDE LEVEL 34 MEQ/L (21-32); CHLORIDE LEVEL 97 MEQ/L (98-107); CREATININE FOR GFR 0.69 MG/DL (0.55-1.30); GLOMERULAR FILTRATION RATE > 60.0 (>32); GLUCOSE, FASTING 187 MG/DL (70-100); POTASSIUM SERUM 3.4 MEQ/L (3.5-5.1); SODIUM LEVEL 139 MEQ/L (136-145)
[2018-06-18] MEDS: BUDESONIDE 0.5 MG/2 ML INHALATION SUSPENSION INH ×2 (07:45→19:16)
[2018-06-18] MEDS: FORMOTEROL FUMARATE 20 MCG/2 ML INHALATION SOLUTION (PERFOROMIST) INH ×2 (07:45→19:16)
[2018-06-18] MEDS: ENOXAPARIN 40 MG/0.4 ML SYRINGE (J1650) SC (09:00)
[2018-06-18] MEDS: POTASSIUM CHLORIDE 10 MEQ SR TABLET PO (09:31)
[2018-06-18] MEDS: CEFDINIR 300 MG CAP (OMNICEF) PO ×2 (09:32→21:38)
[2018-06-18] MEDS: FUROSEMIDE 40 MG TAB PO ×2 (09:32→17:27)
[2018-06-18] MEDS: ALPRAZolam 0.25 MG TAB PO (09:32)
[2018-06-18] MEDS: CALCIUM/VITAMIN D 500 MG TAB PO (09:32)
[2018-06-18] MEDS: predniSONE 20 MG TAB PO (09:32)
[2018-06-18] MEDS: LACTOBACILLUS ACIDOPHILUS CAP (BACID) PO ×3 (09:32→17:26)
[2018-06-18] MEDS: ASPIRIN 81 MG ENTERIC TAB PO (09:32)
[2018-06-18] MEDS: LEVALBUTEROL 1.25 MG/0.5 ML CONCENTRATE NEB NEB (10:07)
[2018-06-18] MEDS: GI COCKTAIL 50ML BTL(HYOSCYAMINE/MAALOX/LIDOCAINE VISCOUS)(1:3:1) PO ×2 (19:00→21:38)
[2018-06-18] MEDS: NITROGLYCERIN 0.4 MG SUBL TABLET SL (19:03)
[2018-06-18 19:51] LABS: CK-MB VALUE MASS 3.8 NG/ML (<3.6); CPK CREATINE PHOSPHOKINASE 59 U/L (26-192); MB/CK RELATIVE INDEX 6.44 (< OR =4); TROPONIN I 0.03 NG/ML (< 0.10)
[2018-06-19] MEDS: LEVALBUTEROL 1.25 MG/0.5 ML CONCENTRATE NEB INH ×4 (00:29→20:00)
[2018-06-19] MEDS: FORMOTEROL FUMARATE 20 MCG/2 ML INHALATION SOLUTION (PERFOROMIST) INH ×2 (07:54→20:49)
[2018-06-19] MEDS: BUDESONIDE 0.5 MG/2 ML INHALATION SUSPENSION INH ×2 (07:55→20:49)
[2018-06-19 08:18] LABS: BASO % 0.1 % (0.0-1.0); EOS # 0.1 10^3/uL (0.0-0.50); EOS % 0.8 % (0.0-3.0); HEMATOCRIT 30.5 % (36.0-47.0); HEMOGLOBIN 9.7 g/dl (12.0-15.5); IMMATURE GRANULOCYTE % 3.1 % (0-3.0); LYMPH # 1.2 10^3/uL (1.5-4.5); LYMPH % 8.5 % (24.0-44.0); MEAN CORPUSCULAR HGB CONC 31.8 g/dl (32.0-36.5); MEAN CORPUSCULAR VOLUME 88.2 fl (80.0-96.0); MONO # 0.8 10^3/uL (0.0-0.8); MONO % 5.4 % (0.0-5.0); NEUTROPHILS # 11.8 10^3/uL (1.8-7.7); NEUTROPHILS % 82.1 % (36.0-66.0); PLATELET COUNT, AUTOMATED 252 10^3/uL (150-450); RED BLOOD COUNT 3.46 10^6/uL (4.00-5.40); RED CELL DISTRIBUTION WIDTH 18.4 % (11.5-14.5); WHITE BLOOD COUNT 14.4 10^3/uL (4.0-10.0)
[2018-06-19] MEDS: CEFDINIR 300 MG CAP (OMNICEF) PO ×2 (08:25→21:36)
[2018-06-19] MEDS: FUROSEMIDE 40 MG TAB PO ×2 (08:25→17:00)
[2018-06-19] MEDS: ASPIRIN 81 MG ENTERIC TAB PO (08:25)
[2018-06-19] MEDS: CALCIUM/VITAMIN D 500 MG TAB PO (08:25)
[2018-06-19] MEDS: predniSONE 10 MG TAB PO (08:25)
[2018-06-19] MEDS: TIOTROPIUM INHALER/CAPSULE (SPIRIVA) INH (08:31)
[2018-06-19] MEDS: LACTOBACILLUS ACIDOPHILUS CAP (BACID) PO ×3 (08:32→17:31)
[2018-06-19] MEDS: POTASSIUM CHLORIDE 10 MEQ SR TABLET PO (08:32)
[2018-06-19] MEDS: ENOXAPARIN 40 MG/0.4 ML SYRINGE (J1650) SC (08:33)
[2018-06-19 08:51] LABS: ANION GAP 6 MEQ/L (8-16); BLOOD UREA NITROGEN 19 MG/DL (7-18); CALCIUM LEVEL 8.6 MG/DL (8.8-10.2); CARBON DIOXIDE LEVEL 37 MEQ/L (21-32); CHLORIDE LEVEL 98 MEQ/L (98-107); CREATININE FOR GFR 0.59 MG/DL (0.55-1.30); GLOMERULAR FILTRATION RATE > 60.0 (>32); GLUCOSE, FASTING 124 MG/DL (70-100); SODIUM LEVEL 141 MEQ/L (136-145)
[2018-06-20] MEDS: LEVALBUTEROL 1.25 MG/0.5 ML CONCENTRATE NEB INH ×4 (00:18→13:13)
[2018-06-20 07:31] LABS: BASO % 0.2 % (0.0-1.0); EOS # 0.1 10^3/uL (0.0-0.50); EOS % 0.9 % (0.0-3.0); HEMATOCRIT 31.7 % (36.0-47.0); HEMOGLOBIN 10.3 g/dl (12.0-15.5); IMMATURE GRANULOCYTE % 2.8 % (0-3.0); LYMPH # 1.6 10^3/uL (1.5-4.5); LYMPH % 9.9 % (24.0-44.0); MEAN CORPUSCULAR HEMOGLOBIN 28.5 pg (27.0-33.0); MEAN CORPUSCULAR HGB CONC 32.5 g/dl (32.0-36.5); MEAN CORPUSCULAR VOLUME 87.8 fl (80.0-96.0); MONO # 0.8 10^3/uL (0.0-0.8); MONO % 5.2 % (0.0-5.0); NEUTROPHILS # 13.1 10^3/uL (1.8-7.7); PLATELET COUNT, AUTOMATED 228 10^3/uL (150-450); RED BLOOD COUNT 3.61 10^6/uL (4.00-5.40); RED CELL DISTRIBUTION WIDTH 18.4 % (11.5-14.5); WHITE BLOOD COUNT 16.2 10^3/uL (4.0-10.0)
[2018-06-20 07:55] LABS: ANION GAP 6 MEQ/L (8-16); BLOOD UREA NITROGEN 29 MG/DL (7-18); CALCIUM LEVEL 8.8 MG/DL (8.8-10.2); CARBON DIOXIDE LEVEL 35 MEQ/L (21-32); CHLORIDE LEVEL 98 MEQ/L (98-107); CREATININE FOR GFR 0.64 MG/DL (0.55-1.30); GLOMERULAR FILTRATION RATE > 60.0 (>32); GLUCOSE, FASTING 108 MG/DL (70-100); POTASSIUM SERUM 4.2 MEQ/L (3.5-5.1); SODIUM LEVEL 139 MEQ/L (136-145)
[2018-06-20] MEDS: TIOTROPIUM INHALER/CAPSULE (SPIRIVA) INH (08:11)
[2018-06-20] MEDS: BUDESONIDE 0.5 MG/2 ML INHALATION SUSPENSION INH (08:11)
[2018-06-20] MEDS: FORMOTEROL FUMARATE 20 MCG/2 ML INHALATION SOLUTION (PERFOROMIST) INH (08:11)
[2018-06-20] MEDS: POTASSIUM CHLORIDE 10 MEQ SR TABLET PO (08:24)
[2018-06-20] MEDS: CALCIUM/VITAMIN D 500 MG TAB PO (08:24)
[2018-06-20] MEDS: CEFDINIR 300 MG CAP (OMNICEF) PO (08:24)
[2018-06-20] MEDS: LACTOBACILLUS ACIDOPHILUS CAP (BACID) PO ×2 (08:24→11:53)
[2018-06-20] MEDS: FUROSEMIDE 40 MG TAB PO (08:25)
[2018-06-20] MEDS: ASPIRIN 81 MG ENTERIC TAB PO (08:25)
[2018-06-20] MEDS: predniSONE 10 MG TAB PO (08:25)
[2018-06-20] MEDS: ENOXAPARIN 40 MG/0.4 ML SYRINGE (J1650) SC (09:00)
[2018-06-20] MEDS: ALPRAZolam 0.25 MG TAB PO (15:13)
== END 2018-06-20 16:01 | disposition home or self-care (01) | DRG 190 ==
LOC: M ED 13:16 → M ED INP 20:10 → M MSPAV 23:22
DX: J44.1 Chronic obstructive pulmonary disease with (acute) exacerbation (principal); I50.33 Acute on chronic diastolic (congestive) heart failure; J18.9 Pneumonia, unspecified organism; J96.11 Chronic respiratory failure with hypoxia; F41.9 Anxiety disorder, unspecified; K21.9 Gastro-esophageal reflux disease without esophagitis; I27.29 Other secondary pulmonary hypertension; I45.10 Unspecified right bundle-branch block; M85.80 Other specified disorders of bone density and structure, unspecified site; G43.909 Migraine, unspecified, not intractable, without status migrainosus; K57.90 Diverticulosis of intestine, part unspecified, without perforation or abscess without bleeding; I25.10 Atherosclerotic heart disease of native coronary artery without angina pectoris; J30.9 Allergic rhinitis, unspecified; I25.2 Old myocardial infarction; Z90.49 Acquired absence of other specified parts of digestive tract; Z95.5 Presence of coronary angioplasty implant and graft; Z86.010 Personal history of colon polyps; Z87.891 Personal history of nicotine dependence; Z99.81 Dependence on supplemental oxygen; Z86.14 Personal history of Methicillin resistant Staphylococcus aureus infection; Z86.13 Personal history of malaria; Z88.1 Allergy status to other antibiotic agents; Z88.8 Allergy status to other drugs, medicaments and biological substances; Z79.899 Other long term (current) drug therapy

== ENCOUNTER 2018-07-05 11:38 | Emergency (ER) | payer MEDICARE, OTHER ==
[2018-07-05] MEDS: IPRATROPIUM 0.5MG/ALBUTEROL 2.5MG INH SOL UD 3ML (DUONEB)(J7620) NEB ×3 (12:34)
[2018-07-05] MEDS: methylPREDNISolone INJ 125 MG/2 ML VIAL (J2930) IV (12:43)
[2018-07-05] MEDS: FUROSEMIDE 40 MG/4 ML VIAL (J1940) IV (12:43)
[2018-07-05 12:44] LABS: HEMATOCRIT 28.9 % (36.0-47.0); HEMOGLOBIN 9.1 g/dl (12.0-15.5); MEAN CORPUSCULAR HEMOGLOBIN 28.3 pg (27.0-33.0); MEAN CORPUSCULAR HGB CONC 31.5 g/dl (32.0-36.5); PLATELET COUNT, AUTOMATED 371 10^3/uL (150-450); RED BLOOD COUNT 3.21 10^6/uL (4.00-5.40); RED CELL DISTRIBUTION WIDTH 18.8 % (11.5-14.5); WHITE BLOOD COUNT 9.7 10^3/uL (4.0-10.0)
[2018-07-05 12:50] LABS: ADD MANUAL DIFFER YES; DIFF SLIDE NUMBER 215; POS COUNT POS FLAG; POSITIVE MORPH POS FLAG
[2018-07-05 13:08] LABS: ANION GAP 9 MEQ/L (8-16); BLOOD UREA NITROGEN 23 MG/DL (7-18); CALCIUM LEVEL 8.6 MG/DL (8.8-10.2); CARBON DIOXIDE LEVEL 31 MEQ/L (21-32); CHLORIDE LEVEL 103 MEQ/L (98-107); CK-MB VALUE MASS 2.7 NG/ML (<3.6); CPK CREATINE PHOSPHOKINASE 40 U/L (26-192); GLOMERULAR FILTRATION RATE > 60.0 (>32); GLUCOSE, FASTING 260 MG/DL (70-100); MB/CK RELATIVE INDEX 6.75 (< OR =4); NT-PRO BNP 398 PG/ML (<450); POTASSIUM SERUM 3.1 MEQ/L (3.5-5.1); SODIUM LEVEL 143 MEQ/L (136-145); TROPONIN I 0.03 NG/ML (< 0.10)
[2018-07-05 13:30] LABS: ATYPICAL LYMPH 3 % (0-5); BANDS 10 % (< 11); LYMPHOCYTES 8 % (16-52); METAMYELOCYTES 1 % (0-0); MONOCYTES 5 % (0-8); NEUTROPHILS 73 % (35-75); PLATELET ESTIMATE NORMAL (NORMAL)
[2018-07-05 13:31] LABS: SCHISTOCYTES 1+
[2018-07-05] MEDS: POTASSIUM CHLORIDE 10 MEQ SR TABLET PO (14:15)
== END 2018-07-05 15:18 | disposition home or self-care (01) ==
LOC: M ED 11:38
DX: J44.1 Chronic obstructive pulmonary disease with (acute) exacerbation (principal); I10 Essential (primary) hypertension; I25.10 Atherosclerotic heart disease of native coronary artery without angina pectoris; Z95.5 Presence of coronary angioplasty implant and graft; Z99.81 Dependence on supplemental oxygen; Z79.899 Other long term (current) drug therapy; Z79.82 Long term (current) use of aspirin; Z88.1 Allergy status to other antibiotic agents; Z88.6 Allergy status to analgesic agent; F17.210 Nicotine dependence, cigarettes, uncomplicated
CPT/HCPCS: J1940

== ENCOUNTER 2018-07-14 16:52 | Inpatient (IN) | payer MEDICARE, OTHER ==
[2018-07-14 17:49] LABS: BASO % 0.2 % (0.0-1.0); EOS % 0.1 % (0.0-3.0); HEMATOCRIT 33.2 % (36.0-47.0); HEMOGLOBIN 10.8 g/dl (12.0-15.5); LYMPH # 0.6 10^3/uL (1.5-4.5); MEAN CORPUSCULAR HGB CONC 32.5 g/dl (32.0-36.5); MONO # 0.3 10^3/uL (0.0-0.8); MONO % 2.8 % (0.0-5.0); NEUTROPHILS # 9.7 10^3/uL (1.8-7.7); NEUTROPHILS % 87.9 % (36.0-66.0); PLATELET COUNT, AUTOMATED 306 10^3/uL (150-450); RED BLOOD COUNT 3.73 10^6/uL (4.00-5.40); RED CELL DISTRIBUTION WIDTH 18.6 % (11.5-14.5); WHITE BLOOD COUNT 11.1 10^3/uL (4.0-10.0)
[2018-07-14] MEDS: ALBUTEROL SULFATE 2.5 MG/0.5 ML INH NEB SOLN NEB (17:51)
[2018-07-14 18:12] LABS: ALBUMIN 3.4 GM/DL (3.2-5.2); ALBUMIN/GLOBULIN RATIO 0.87 (1.00-1.93); ALKALINE PHOSPHATASE 91 U/L (45-117); ALT/SGPT 33 U/L (12-78); ANION GAP 11 MEQ/L (8-16); AST/SGOT 21 U/L (7-37); BILIRUBIN,DIRECT 0.2 MG/DL (0.0-0.2); BILIRUBIN,TOTAL 0.7 MG/DL (0.2-1.0); BLOOD UREA NITROGEN 25 MG/DL (7-18); CALCIUM LEVEL 9.2 MG/DL (8.8-10.2); CARBON DIOXIDE LEVEL 34 MEQ/L (21-32); CHLORIDE LEVEL 95 MEQ/L (98-107); CPK CREATINE PHOSPHOKINASE 54 U/L (26-192); CREATININE FOR GFR 0.79 MG/DL (0.55-1.30); GLOMERULAR FILTRATION RATE > 60.0 (>32); GLUCOSE, FASTING 253 MG/DL (70-100); POTASSIUM SERUM 3.8 MEQ/L (3.5-5.1); SODIUM LEVEL 140 MEQ/L (136-145); TOTAL PROTEIN 7.3 GM/DL (6.4-8.2); TROPONIN I < 0.02 NG/ML (< 0.10)
[2018-07-14] MEDS: methylPREDNISolone INJ 125 MG/2 ML VIAL (J2930) IV ×2 (18:17→19:01)
[2018-07-14 18:18] LABS: MB/CK RELATIVE INDEX 5.55 (< OR =4); NT-PRO BNP 227 PG/ML (<450)
[2018-07-14] MEDS ORDERED: ACETAMINOPHEN TAB 650MG DOSE (2X325MG) PO (20:15)
[2018-07-14] MEDS ORDERED: ONDANSETRON 4MG/2ML VIAL (J2405) IV (20:45)
[2018-07-14] MEDS ORDERED: CETIRIZINE (ZyrTEC) 10 MG TAB PO (21:00)
[2018-07-14] MEDS: SENOKOT S TAB PO (21:00)
[2018-07-14] MEDS ORDERED: GLUCOSE 4 GM CHEW TABLET PO (21:00)
[2018-07-14] MEDS ORDERED: GLUCAGON FOR INJ 1 MG VIAL (J1610) SC (21:00)
[2018-07-14] MEDS: HumaLOG INSULIN (NovoLOG) PER UNIT SC (21:00)
[2018-07-14] MEDS: FUROSEMIDE 40 MG/4 ML VIAL (J1940) IV (21:21)
[2018-07-14] MEDS: SYMBICORT 160/4.5MCG INHALER 6GM INH (23:20)
[2018-07-14] MEDS: IPRATROPIUM 0.5MG/ALBUTEROL 2.5MG INH SOL UD 3ML (DUONEB)(J7620) NEB (23:21)
[2018-07-14 23:30] LABS: CPK CREATINE PHOSPHOKINASE 50 U/L (26-192); TROPONIN I < 0.02 NG/ML (< 0.10)
[2018-07-14 23:31] LABS: CK-MB VALUE MASS 3.5 NG/ML (<3.6)
[2018-07-15 03:45] LABS: BEDSIDE GLUCOSE 409 MG/DL (83-110)
[2018-07-15] MEDS: methylPREDNISolone INJ 125 MG/2 ML VIAL (J2930) IV ×2 (05:41→18:20)
[2018-07-15] MEDS: HumaLOG INSULIN (NovoLOG) PER UNIT SC ×5 (07:30→21:00)
[2018-07-15 07:40] LABS: BEDSIDE GLUCOSE 334 MG/DL (83-110)
[2018-07-15] MEDS: IPRATROPIUM 0.5MG/ALBUTEROL 2.5MG INH SOL UD 3ML (DUONEB)(J7620) NEB ×3 (08:00→20:00)
[2018-07-15] MEDS: ENOXAPARIN 40 MG/0.4 ML SYRINGE (J1650) SC (08:16)
[2018-07-15] MEDS: SENOKOT S TAB PO ×2 (08:16→21:00)
[2018-07-15] MEDS: ASPIRIN 81 MG ENTERIC TAB PO (08:16)
[2018-07-15] MEDS: FUROSEMIDE 40 MG/4 ML VIAL (J1940) IV ×2 (08:16→18:21)
[2018-07-15] MEDS: TIOTROPIUM INHALER/CAPSULE (SPIRIVA) INH (08:56)
[2018-07-15] MEDS: SYMBICORT 160/4.5MCG INHALER 6GM INH ×2 (08:57→20:19)
[2018-07-15] MEDS: LEVEMIR (INSULIN DETEMIR) 1 UNITS/0.01ML SC (09:00)
[2018-07-15 09:39] LABS: HEMATOCRIT 32.9 % (36.0-47.0); HEMOGLOBIN 10.4 g/dl (12.0-15.5); MEAN CORPUSCULAR HEMOGLOBIN 28.6 pg (27.0-33.0); MEAN CORPUSCULAR HGB CONC 31.6 g/dl (32.0-36.5); MEAN CORPUSCULAR VOLUME 90.4 fl (80.0-96.0); PLATELET COUNT, AUTOMATED 307 10^3/uL (150-450); RED BLOOD COUNT 3.64 10^6/uL (4.00-5.40); RED CELL DISTRIBUTION WIDTH 18.6 % (11.5-14.5); WHITE BLOOD COUNT 10.5 10^3/uL (4.0-10.0)
[2018-07-15 10:06] LABS: ANION GAP 11 MEQ/L (8-16); BLOOD UREA NITROGEN 28 MG/DL (7-18); CALCIUM LEVEL 8.8 MG/DL (8.8-10.2); CARBON DIOXIDE LEVEL 32 MEQ/L (21-32); CHLORIDE LEVEL 94 MEQ/L (98-107); CPK CREATINE PHOSPHOKINASE 51 U/L (26-192); CREATININE FOR GFR 1.04 MG/DL (0.55-1.30); GLOMERULAR FILTRATION RATE 53.6 (>32); GLUCOSE, FASTING 368 MG/DL (70-100); MAGNESIUM LEVEL 2.1 MG/DL (1.8-2.4); POTASSIUM SERUM 3.9 MEQ/L (3.5-5.1); SODIUM LEVEL 137 MEQ/L (136-145); TROPONIN I < 0.02 NG/ML (< 0.10)
[2018-07-15 10:07] LABS: MB/CK RELATIVE INDEX 7.84 (< OR =4)
[2018-07-15 10:21] LABS: ESTIMATED AVERAGE GLUCOSE 209 MG/DL (60-110); HEMOGLOBIN A1c 8.9 %
[2018-07-15 11:40] LABS: BEDSIDE GLUCOSE 400 MG/DL (83-110)
[2018-07-15] MEDS: ALPRAZolam 0.25 MG TAB PO (13:51)
[2018-07-15 17:01] LABS: BEDSIDE GLUCOSE 113 MG/DL (83-110)
[2018-07-15 21:11] LABS: BEDSIDE GLUCOSE 190 MG/DL (83-110)
[2018-07-16] MEDS: IPRATROPIUM 0.5MG/ALBUTEROL 2.5MG INH SOL UD 3ML (DUONEB)(J7620) NEB ×5 (00:51→19:30)
[2018-07-16] MEDS: methylPREDNISolone INJ 125 MG/2 ML VIAL (J2930) IV ×2 (05:32→17:24)
[2018-07-16] MEDS: HumaLOG INSULIN (NovoLOG) PER UNIT SC ×5 (07:30→19:58)
[2018-07-16 08:10] LABS: HEMATOCRIT 32.2 % (36.0-47.0); HEMOGLOBIN 10.4 g/dl (12.0-15.5); MEAN CORPUSCULAR HEMOGLOBIN 29.3 pg (27.0-33.0); MEAN CORPUSCULAR HGB CONC 32.3 g/dl (32.0-36.5); MEAN CORPUSCULAR VOLUME 90.7 fl (80.0-96.0); PLATELET COUNT, AUTOMATED 321 10^3/uL (150-450); RED BLOOD COUNT 3.55 10^6/uL (4.00-5.40); RED CELL DISTRIBUTION WIDTH 18.7 % (11.5-14.5); WHITE BLOOD COUNT 17.5 10^3/uL (4.0-10.0)
[2018-07-16] MEDS: SYMBICORT 160/4.5MCG INHALER 6GM INH ×2 (08:13→19:29)
[2018-07-16] MEDS: TIOTROPIUM INHALER/CAPSULE (SPIRIVA) INH (08:13)
[2018-07-16 08:31] LABS: ANION GAP 11 MEQ/L (8-16); BLOOD UREA NITROGEN 32 MG/DL (7-18); C REACTIVE PROTEIN QUANTITATIV 1.05 MG/DL (0.00-0.30); CARBON DIOXIDE LEVEL 33 MEQ/L (21-32); CHLORIDE LEVEL 96 MEQ/L (98-107); CREATININE FOR GFR 0.81 MG/DL (0.55-1.30); GLOMERULAR FILTRATION RATE > 60.0 (>32); GLUCOSE, FASTING 214 MG/DL (70-100); MAGNESIUM LEVEL 2.3 MG/DL (1.8-2.4); POTASSIUM SERUM 4.1 MEQ/L (3.5-5.1); SODIUM LEVEL 140 MEQ/L (136-145)
[2018-07-16] MEDS: LEVEMIR (INSULIN DETEMIR) 1 UNITS/0.01ML SC (08:50)
[2018-07-16] MEDS: SENOKOT S TAB PO ×2 (08:50→19:58)
[2018-07-16] MEDS: ENOXAPARIN 40 MG/0.4 ML SYRINGE (J1650) SC (08:50)
[2018-07-16] MEDS: ASPIRIN 81 MG ENTERIC TAB PO (08:50)
[2018-07-16] MEDS: FUROSEMIDE 40 MG/4 ML VIAL (J1940) IV ×2 (08:51→16:48)
[2018-07-16 16:40] LABS: BEDSIDE GLUCOSE 421 MG/DL (83-110)
[2018-07-16] MEDS: OMEPRAZOLE 20 MG CAP PO (17:24)
[2018-07-16] MEDS: ALPRAZolam 0.25 MG TAB PO (18:47)
[2018-07-16 19:38] LABS: BEDSIDE GLUCOSE 259 MG/DL (83-110)
[2018-07-16 19:38] LABS: BEDSIDE GLUCOSE 183 MG/DL (83-110)
[2018-07-17] MEDS: IPRATROPIUM 0.5MG/ALBUTEROL 2.5MG INH SOL UD 3ML (DUONEB)(J7620) NEB ×4 (02:52→19:11)
[2018-07-17] MEDS: methylPREDNISolone INJ 125 MG/2 ML VIAL (J2930) IV (05:19)
[2018-07-17] MEDS: HumaLOG INSULIN (NovoLOG) PER UNIT SC ×4 (07:30→20:25)
[2018-07-17] MEDS: TIOTROPIUM INHALER/CAPSULE (SPIRIVA) INH (08:28)
[2018-07-17] MEDS: SYMBICORT 160/4.5MCG INHALER 6GM INH ×2 (08:31→19:11)
[2018-07-17] MEDS: FUROSEMIDE 40 MG/4 ML VIAL (J1940) IV ×2 (08:43→16:59)
[2018-07-17] MEDS: ENOXAPARIN 40 MG/0.4 ML SYRINGE (J1650) SC (08:43)
[2018-07-17] MEDS: LEVEMIR (INSULIN DETEMIR) 1 UNITS/0.01ML SC (08:44)
[2018-07-17] MEDS: SENOKOT S TAB PO ×2 (08:44→20:32)
[2018-07-17] MEDS: ASPIRIN 81 MG ENTERIC TAB PO (08:55)
[2018-07-17 09:14] LABS: HEMATOCRIT 29.7 % (36.0-47.0); HEMOGLOBIN 9.6 g/dl (12.0-15.5); MEAN CORPUSCULAR HGB CONC 32.3 g/dl (32.0-36.5); MEAN CORPUSCULAR VOLUME 89.7 fl (80.0-96.0); PLATELET COUNT, AUTOMATED 274 10^3/uL (150-450); RED BLOOD COUNT 3.31 10^6/uL (4.00-5.40); RED CELL DISTRIBUTION WIDTH 18.5 % (11.5-14.5); WHITE BLOOD COUNT 16.3 10^3/uL (4.0-10.0)
[2018-07-17 09:52] LABS: ANION GAP 11 MEQ/L (8-16); BLOOD UREA NITROGEN 23 MG/DL (7-18); C REACTIVE PROTEIN QUANTITATIV 0.53 MG/DL (0.00-0.30); CALCIUM LEVEL 9.1 MG/DL (8.8-10.2); CARBON DIOXIDE LEVEL 29 MEQ/L (21-32); CHLORIDE LEVEL 98 MEQ/L (98-107); CREATININE FOR GFR 0.77 MG/DL (0.55-1.30); GLOMERULAR FILTRATION RATE > 60.0 (>32); GLUCOSE, FASTING 240 MG/DL (70-100); MAGNESIUM LEVEL 2.3 MG/DL (1.8-2.4); POTASSIUM SERUM 4.3 MEQ/L (3.5-5.1); SODIUM LEVEL 138 MEQ/L (136-145)
[2018-07-17 11:33] LABS: BEDSIDE GLUCOSE 458 MG/DL (83-110)
[2018-07-17] MEDS: ALPRAZolam 0.25 MG TAB PO ×2 (12:31→20:32)
[2018-07-17 16:37] LABS: BEDSIDE GLUCOSE 207 MG/DL (83-110)
[2018-07-17] MEDS: ATORVASTATIN 10 MG TAB PO (16:47)
[2018-07-17] MEDS: methylPREDNISolone INJ 40 MG/1 ML VIAL (J2920) IV (17:41)
[2018-07-17 20:18] LABS: BEDSIDE GLUCOSE 142 MG/DL (83-110)
[2018-07-18] MEDS: IPRATROPIUM 0.5MG/ALBUTEROL 2.5MG INH SOL UD 3ML (DUONEB)(J7620) NEB ×5 (02:12→20:00)
[2018-07-18] MEDS: methylPREDNISolone INJ 40 MG/1 ML VIAL (J2920) IV (06:45)
[2018-07-18 08:04] LABS: HEMATOCRIT 28.3 % (36.0-47.0); HEMOGLOBIN 9.1 g/dl (12.0-15.5); MEAN CORPUSCULAR HEMOGLOBIN 29.2 pg (27.0-33.0); MEAN CORPUSCULAR HGB CONC 32.2 g/dl (32.0-36.5); MEAN CORPUSCULAR VOLUME 90.7 fl (80.0-96.0); PLATELET COUNT, AUTOMATED 267 10^3/uL (150-450); RED BLOOD COUNT 3.12 10^6/uL (4.00-5.40); RED CELL DISTRIBUTION WIDTH 18.5 % (11.5-14.5)
[2018-07-18 08:23] LABS: BEDSIDE GLUCOSE 153 MG/DL (83-110)
[2018-07-18 08:27] LABS: ANION GAP 8 MEQ/L (8-16); BLOOD UREA NITROGEN 28 MG/DL (7-18); CALCIUM LEVEL 8.7 MG/DL (8.8-10.2); CARBON DIOXIDE LEVEL 32 MEQ/L (21-32); CHLORIDE LEVEL 101 MEQ/L (98-107); CREATININE FOR GFR 0.72 MG/DL (0.55-1.30); GLOMERULAR FILTRATION RATE > 60.0 (>32); GLUCOSE, FASTING 156 MG/DL (70-100); MAGNESIUM LEVEL 2.4 MG/DL (1.8-2.4); POTASSIUM SERUM 4.1 MEQ/L (3.5-5.1); SODIUM LEVEL 141 MEQ/L (136-145)
[2018-07-18] MEDS: TIOTROPIUM INHALER/CAPSULE (SPIRIVA) INH (08:36)
[2018-07-18] MEDS: SYMBICORT 160/4.5MCG INHALER 6GM INH ×2 (08:37→20:00)
[2018-07-18] MEDS: HumaLOG INSULIN (NovoLOG) PER UNIT SC ×4 (08:46→21:00)
[2018-07-18] MEDS: ENOXAPARIN 40 MG/0.4 ML SYRINGE (J1650) SC (09:00)
[2018-07-18] MEDS: SENOKOT S TAB PO ×2 (09:00→21:00)
[2018-07-18] MEDS: LEVEMIR (INSULIN DETEMIR) 1 UNITS/0.01ML SC ×2 (09:00→09:53)
[2018-07-18] MEDS: ATORVASTATIN 10 MG TAB PO (09:51)
[2018-07-18] MEDS: ASPIRIN 81 MG ENTERIC TAB PO (09:52)
[2018-07-18] MEDS: FUROSEMIDE 40 MG/4 ML VIAL (J1940) IV (09:53)
[2018-07-18] MEDS: ALPRAZolam 0.25 MG TAB PO (13:27)
[2018-07-18 15:03] LABS: CPK CREATINE PHOSPHOKINASE 40 U/L (26-192); MB/CK RELATIVE INDEX 7.25 (< OR =4); TROPONIN I 0.02 NG/ML (< 0.10)
[2018-07-18] MEDS: FUROSEMIDE 40 MG TAB PO (17:13)
[2018-07-18 17:44] LABS: BEDSIDE GLUCOSE 348 MG/DL (83-110)
[2018-07-18 20:16] LABS: CPK CREATINE PHOSPHOKINASE 36 U/L (26-192); MB/CK RELATIVE INDEX 7.78 (< OR =4); TROPONIN I 0.04 NG/ML (< 0.10)
[2018-07-18] MEDS: predniSONE 20 MG TAB PO (21:35)
[2018-07-19] MEDS: IPRATROPIUM 0.5MG/ALBUTEROL 2.5MG INH SOL UD 3ML (DUONEB)(J7620) NEB ×4 (01:38→20:16)
[2018-07-19 03:22] LABS: BEDSIDE GLUCOSE 404 MG/DL (83-110)
[2018-07-19 03:25] LABS: BEDSIDE GLUCOSE 148 MG/DL (83-110)
[2018-07-19] MEDS: TIOTROPIUM INHALER/CAPSULE (SPIRIVA) INH (07:18)
[2018-07-19] MEDS: SYMBICORT 160/4.5MCG INHALER 6GM INH ×2 (07:18→20:00)
[2018-07-19] MEDS: HumaLOG INSULIN (NovoLOG) PER UNIT SC ×4 (07:30→21:00)
[2018-07-19] MEDS: LEVEMIR (INSULIN DETEMIR) 1 UNITS/0.01ML SC (09:00)
[2018-07-19] MEDS: ENOXAPARIN 40 MG/0.4 ML SYRINGE (J1650) SC (09:00)
[2018-07-19] MEDS: SENOKOT S TAB PO ×2 (09:00→21:00)
[2018-07-19] MEDS: ATORVASTATIN 10 MG TAB PO (09:10)
[2018-07-19] MEDS: ASPIRIN 81 MG ENTERIC TAB PO (09:10)
[2018-07-19] MEDS: predniSONE 20 MG TAB PO ×3 (09:11→22:01)
[2018-07-19] MEDS: FUROSEMIDE 40 MG TAB PO ×2 (09:11→17:14)
[2018-07-19 11:22] LABS: HEMATOCRIT 32.1 % (36.0-47.0); HEMOGLOBIN 10.2 g/dl (12.0-15.5); MEAN CORPUSCULAR HEMOGLOBIN 28.8 pg (27.0-33.0); MEAN CORPUSCULAR HGB CONC 31.8 g/dl (32.0-36.5); MEAN CORPUSCULAR VOLUME 90.7 fl (80.0-96.0); PLATELET COUNT, AUTOMATED 331 10^3/uL (150-450); RED BLOOD COUNT 3.54 10^6/uL (4.00-5.40); RED CELL DISTRIBUTION WIDTH 18.6 % (11.5-14.5); WHITE BLOOD COUNT 20.8 10^3/uL (4.0-10.0)
[2018-07-19 12:17] LABS: ANION GAP 10 MEQ/L (8-16); BLOOD UREA NITROGEN 32 MG/DL (7-18); CALCIUM LEVEL 8.8 MG/DL (8.8-10.2); CARBON DIOXIDE LEVEL 31 MEQ/L (21-32); CHLORIDE LEVEL 93 MEQ/L (98-107); CREATININE FOR GFR 1.01 MG/DL (0.55-1.30); GLOMERULAR FILTRATION RATE 55.5 (>32); GLUCOSE, FASTING 286 MG/DL (70-100); POTASSIUM SERUM 4.3 MEQ/L (3.5-5.1); SODIUM LEVEL 134 MEQ/L (136-145)
[2018-07-19 12:30] LABS: BEDSIDE GLUCOSE 350 MG/DL (83-110)
[2018-07-19] MEDS ORDERED: FUROSEMIDE 20 MG TAB PO (17:00)
[2018-07-19 17:12] LABS: BEDSIDE GLUCOSE 238 MG/DL (83-110)
[2018-07-19 20:53] LABS: BEDSIDE GLUCOSE 188 MG/DL (83-110)
[2018-07-20] MEDS: IPRATROPIUM 0.5MG/ALBUTEROL 2.5MG INH SOL UD 3ML (DUONEB)(J7620) NEB ×5 (02:00→19:47)
[2018-07-20] MEDS: TIOTROPIUM INHALER/CAPSULE (SPIRIVA) INH (07:28)
[2018-07-20] MEDS: SYMBICORT 160/4.5MCG INHALER 6GM INH ×2 (07:28→19:47)
[2018-07-20 07:39] LABS: HEMATOCRIT 29.9 % (36.0-47.0); HEMOGLOBIN 9.8 g/dl (12.0-15.5); MEAN CORPUSCULAR HEMOGLOBIN 28.9 pg (27.0-33.0); MEAN CORPUSCULAR HGB CONC 32.8 g/dl (32.0-36.5); MEAN CORPUSCULAR VOLUME 88.2 fl (80.0-96.0); PLATELET COUNT, AUTOMATED 312 10^3/uL (150-450); RED BLOOD COUNT 3.39 10^6/uL (4.00-5.40); RED CELL DISTRIBUTION WIDTH 18.6 % (11.5-14.5); WHITE BLOOD COUNT 16.4 10^3/uL (4.0-10.0)
[2018-07-20 08:00] LABS: ANION GAP 9 MEQ/L (8-16); BLOOD UREA NITROGEN 30 MG/DL (7-18); CALCIUM LEVEL 8.8 MG/DL (8.8-10.2); CARBON DIOXIDE LEVEL 33 MEQ/L (21-32); CHLORIDE LEVEL 98 MEQ/L (98-107); CREATININE FOR GFR 0.74 MG/DL (0.55-1.30); GLOMERULAR FILTRATION RATE > 60.0 (>32); GLUCOSE, FASTING 190 MG/DL (70-100); MAGNESIUM LEVEL 2.2 MG/DL (1.8-2.4); POTASSIUM SERUM 4.2 MEQ/L (3.5-5.1); SODIUM LEVEL 140 MEQ/L (136-145)
[2018-07-20] MEDS: SENOKOT S TAB PO ×2 (09:00→21:00)
[2018-07-20] MEDS: ENOXAPARIN 40 MG/0.4 ML SYRINGE (J1650) SC ×2 (09:00→09:52)
[2018-07-20] MEDS: ASPIRIN 81 MG ENTERIC TAB PO (09:53)
[2018-07-20] MEDS: ATORVASTATIN 10 MG TAB PO (09:53)
[2018-07-20] MEDS: FUROSEMIDE 40 MG TAB PO ×2 (09:53→17:00)
[2018-07-20] MEDS: predniSONE 20 MG TAB PO ×2 (09:54→21:25)
[2018-07-20] MEDS: LEVEMIR (INSULIN DETEMIR) 1 UNITS/0.01ML SC (09:55)
[2018-07-20] MEDS: HumaLOG INSULIN (NovoLOG) PER UNIT SC ×4 (09:55→21:00)
[2018-07-20 17:16] LABS: BEDSIDE GLUCOSE 363 MG/DL (83-110)
[2018-07-20 17:16] LABS: BEDSIDE GLUCOSE 149 MG/DL (83-110)
[2018-07-20 20:38] LABS: BEDSIDE GLUCOSE 164 MG/DL (83-110)
[2018-07-20] MEDS: ALPRAZolam 0.25 MG TAB PO (22:36)
[2018-07-21] MEDS: IPRATROPIUM 0.5MG/ALBUTEROL 2.5MG INH SOL UD 3ML (DUONEB)(J7620) NEB ×5 (02:00→20:30)
[2018-07-21] MEDS: SYMBICORT 160/4.5MCG INHALER 6GM INH ×2 (07:31→20:30)
[2018-07-21] MEDS: ATORVASTATIN 10 MG TAB PO (08:34)
[2018-07-21] MEDS: ASPIRIN 81 MG ENTERIC TAB PO (08:34)
[2018-07-21] MEDS: ENOXAPARIN 40 MG/0.4 ML SYRINGE (J1650) SC ×2 (08:34→09:00)
[2018-07-21] MEDS: predniSONE 20 MG TAB PO (08:34)
[2018-07-21] MEDS: FUROSEMIDE 40 MG/4 ML VIAL (J1940) IV ×3 (08:35→17:55)
[2018-07-21] MEDS: SENOKOT S TAB PO ×3 (08:37→21:00)
[2018-07-21 08:54] LABS: BEDSIDE GLUCOSE 204 MG/DL (83-110)
[2018-07-21] MEDS: HumaLOG INSULIN (NovoLOG) PER UNIT SC ×4 (08:57→21:00)
[2018-07-21] MEDS: LEVEMIR (INSULIN DETEMIR) 1 UNITS/0.01ML SC (08:58)
[2018-07-21 09:01] LABS: HEMATOCRIT 31.3 % (36.0-47.0); MEAN CORPUSCULAR HEMOGLOBIN 28.7 pg (27.0-33.0); MEAN CORPUSCULAR HGB CONC 31.9 g/dl (32.0-36.5); MEAN CORPUSCULAR VOLUME 89.9 fl (80.0-96.0); PLATELET COUNT, AUTOMATED 306 10^3/uL (150-450); RED BLOOD COUNT 3.48 10^6/uL (4.00-5.40); RED CELL DISTRIBUTION WIDTH 18.7 % (11.5-14.5); WHITE BLOOD COUNT 18.8 10^3/uL (4.0-10.0)
[2018-07-21 09:26] LABS: ANION GAP 10 MEQ/L (8-16); BLOOD UREA NITROGEN 27 MG/DL (7-18); CALCIUM LEVEL 8.6 MG/DL (8.8-10.2); CARBON DIOXIDE LEVEL 32 MEQ/L (21-32); CHLORIDE LEVEL 95 MEQ/L (98-107); CREATININE FOR GFR 0.76 MG/DL (0.55-1.30); GLOMERULAR FILTRATION RATE > 60.0 (>32); GLUCOSE, FASTING 204 MG/DL (70-100); MAGNESIUM LEVEL 2.3 MG/DL (1.8-2.4); POTASSIUM SERUM 4.4 MEQ/L (3.5-5.1); SODIUM LEVEL 137 MEQ/L (136-145)
[2018-07-21] MEDS: TIOTROPIUM INHALER/CAPSULE (SPIRIVA) INH (09:37)
[2018-07-21 11:36] LABS: BEDSIDE GLUCOSE 90 MG/DL (83-110)
[2018-07-21 16:50] LABS: BEDSIDE GLUCOSE 202 MG/DL (83-110)
[2018-07-21] MEDS: FUROSEMIDE 40 MG TAB PO (18:36)
[2018-07-21 20:43] LABS: BEDSIDE GLUCOSE 213 MG/DL (83-110)
[2018-07-22] MEDS: IPRATROPIUM 0.5MG/ALBUTEROL 2.5MG INH SOL UD 3ML (DUONEB)(J7620) NEB ×6 (02:00→23:27)
[2018-07-22 06:59] LABS: BASO % 0.2 % (0.0-1.0); EOS # 0.1 10^3/uL (0.0-0.50); EOS % 0.4 % (0.0-3.0); HEMATOCRIT 29.4 % (36.0-47.0); HEMOGLOBIN 9.4 g/dl (12.0-15.5); IMMATURE GRANULOCYTE % 4.2 % (0-3.0); LYMPH # 1.1 10^3/uL (1.5-4.5); LYMPH % 9.6 % (24.0-44.0); MEAN CORPUSCULAR HEMOGLOBIN 28.9 pg (27.0-33.0); MEAN CORPUSCULAR VOLUME 90.5 fl (80.0-96.0); MONO # 0.9 10^3/uL (0.0-0.8); MONO % 7.8 % (0.0-5.0); NEUTROPHILS # 8.8 10^3/uL (1.8-7.7); NEUTROPHILS % 77.8 % (36.0-66.0); PLATELET COUNT, AUTOMATED 296 10^3/uL (150-450); RED BLOOD COUNT 3.25 10^6/uL (4.00-5.40); RED CELL DISTRIBUTION WIDTH 18.8 % (11.5-14.5); WHITE BLOOD COUNT 11.3 10^3/uL (4.0-10.0)
[2018-07-22 07:25] LABS: ANION GAP 6 MEQ/L (8-16); BLOOD UREA NITROGEN 27 MG/DL (7-18); CARBON DIOXIDE LEVEL 37 MEQ/L (21-32); CHLORIDE LEVEL 98 MEQ/L (98-107); CREATININE FOR GFR 0.51 MG/DL (0.55-1.30); GLOMERULAR FILTRATION RATE > 60.0 (>32); GLUCOSE, FASTING 65 MG/DL (70-100); MAGNESIUM LEVEL 2.4 MG/DL (1.8-2.4); POTASSIUM SERUM 3.3 MEQ/L (3.5-5.1); SODIUM LEVEL 141 MEQ/L (136-145)
[2018-07-22] MEDS: HumaLOG INSULIN (NovoLOG) PER UNIT SC ×4 (07:30→21:21)
[2018-07-22] MEDS: TIOTROPIUM INHALER/CAPSULE (SPIRIVA) INH (07:52)
[2018-07-22] MEDS: SYMBICORT 160/4.5MCG INHALER 6GM INH ×2 (07:54→19:57)
[2018-07-22] MEDS: SENOKOT S TAB PO ×2 (09:00→21:00)
[2018-07-22] MEDS: LEVEMIR (INSULIN DETEMIR) 1 UNITS/0.01ML SC ×2 (09:00→12:30)
[2018-07-22] MEDS: ENOXAPARIN 40 MG/0.4 ML SYRINGE (J1650) SC (09:00)
[2018-07-22] MEDS: predniSONE 20 MG TAB PO (09:34)
[2018-07-22] MEDS: ATORVASTATIN 10 MG TAB PO (09:34)
[2018-07-22] MEDS: ASPIRIN 81 MG ENTERIC TAB PO (09:34)
[2018-07-22] MEDS: POTASSIUM CHLORIDE 10 MEQ SR TABLET PO (10:32)
[2018-07-22] MEDS: FUROSEMIDE 20 MG TAB PO ×2 (10:33→16:40)
[2018-07-22] MEDS: ALPRAZolam 0.25 MG TAB PO ×3 (12:30→21:55)
[2018-07-22 17:02] LABS: BEDSIDE GLUCOSE 277 MG/DL (83-110)
[2018-07-22 17:02] LABS: BEDSIDE GLUCOSE 282 MG/DL (83-110)
[2018-07-22 20:44] LABS: BEDSIDE GLUCOSE 354 MG/DL (83-110)
[2018-07-22] MEDS: guaiFENesin ER 600 MG TAB PO (23:20)
[2018-07-23 00:59] LABS: ABG BASE EXCESS 12.4 (-2.0-2.0); ABG HCO3 36.7 MEQ/L (22.0-26.0); ABG O2 SATURATION 91.8 % (95.0-99.0); ABG PARTIAL PRESSURE CO2 46.3 mmHg (35.0-45.0); ABG PARTIAL PRESSURE O2 58.7 mmHg (75.0-100.0); ABG TOTAL CO2 38.1 MEQ/L (23.0-31.0); ABG pH (ARTERIAL) 7.517 UNITS (7.350-7.450)
[2018-07-23 01:16] LABS: TROPONIN I 0.03 NG/ML (< 0.10)
[2018-07-23] MEDS: hydrOXYzine 50 MG TAB PO (01:40)
[2018-07-23] MEDS: IPRATROPIUM 0.5MG/ALBUTEROL 2.5MG INH SOL UD 3ML (DUONEB)(J7620) NEB ×4 (02:50→11:13)
[2018-07-23] MEDS: AUGMENTIN 875 MG TAB PO ×2 (03:57→20:55)
[2018-07-23] MEDS ORDERED: CEFEPIME HCL 1 GM in D5W MINI-BAG PLUS 50 ML IV (04:00)
[2018-07-23] MEDS: ALPRAZolam 0.25 MG TAB PO ×2 (04:48→15:13)
[2018-07-23] MEDS: ALBUTEROL SULFATE 2.5 MG/0.5 ML INH NEB SOLN NEB (06:30)
[2018-07-23] MEDS: SYMBICORT 160/4.5MCG INHALER 6GM INH ×2 (07:10→20:00)
[2018-07-23] MEDS: TIOTROPIUM INHALER/CAPSULE (SPIRIVA) INH (07:10)
[2018-07-23 07:31] LABS: BASO % 0.1 % (0.0-1.0); EOS % 0.1 % (0.0-3.0); HEMATOCRIT 31.4 % (36.0-47.0); HEMOGLOBIN 10.2 g/dl (12.0-15.5); IMMATURE GRANULOCYTE % 1.5 % (0-3.0); LYMPH % 6.7 % (24.0-44.0); MEAN CORPUSCULAR HEMOGLOBIN 28.7 pg (27.0-33.0); MEAN CORPUSCULAR HGB CONC 32.5 g/dl (32.0-36.5); MEAN CORPUSCULAR VOLUME 88.5 fl (80.0-96.0); MONO # 0.7 10^3/uL (0.0-0.8); MONO % 4.8 % (0.0-5.0); NEUTROPHILS # 12.6 10^3/uL (1.8-7.7); NEUTROPHILS % 86.8 % (36.0-66.0); PLATELET COUNT, AUTOMATED 321 10^3/uL (150-450); RED BLOOD COUNT 3.55 10^6/uL (4.00-5.40); RED CELL DISTRIBUTION WIDTH 18.7 % (11.5-14.5); WHITE BLOOD COUNT 14.6 10^3/uL (4.0-10.0)
[2018-07-23 07:59] LABS: BEDSIDE GLUCOSE 129 MG/DL (83-110)
[2018-07-23 08:28] LABS: ANION GAP 9 MEQ/L (8-16); BLOOD UREA NITROGEN 29 MG/DL (7-18); CALCIUM LEVEL 8.6 MG/DL (8.8-10.2); CARBON DIOXIDE LEVEL 34 MEQ/L (21-32); CHLORIDE LEVEL 95 MEQ/L (98-107); CREATININE FOR GFR 0.72 MG/DL (0.55-1.30); GLOMERULAR FILTRATION RATE > 60.0 (>32); GLUCOSE, FASTING 110 MG/DL (70-100); POTASSIUM SERUM 3.7 MEQ/L (3.5-5.1); SODIUM LEVEL 138 MEQ/L (136-145); TROPONIN I 0.11 NG/ML (< 0.10)
[2018-07-23] MEDS: guaiFENesin ER 600 MG TAB PO (08:35)
[2018-07-23] MEDS: ASPIRIN 81 MG ENTERIC TAB PO (08:35)
[2018-07-23] MEDS: SENOKOT S TAB PO ×2 (08:35→20:55)
[2018-07-23] MEDS: predniSONE 20 MG TAB PO (08:35)
[2018-07-23] MEDS: ATORVASTATIN 10 MG TAB PO (08:35)
[2018-07-23] MEDS: HumaLOG INSULIN (NovoLOG) PER UNIT SC ×4 (08:36→22:21)
[2018-07-23] MEDS: ENOXAPARIN 40 MG/0.4 ML SYRINGE (J1650) SC (08:37)
[2018-07-23] MEDS: LEVEMIR (INSULIN DETEMIR) 1 UNITS/0.01ML SC (08:37)
[2018-07-23 11:45] LABS: BEDSIDE GLUCOSE 158 MG/DL (83-110)
[2018-07-23] MEDS: LEVALBUTEROL 1.25 MG/0.5 ML CONCENTRATE NEB INH (13:52)
[2018-07-23 21:28] LABS: BEDSIDE GLUCOSE 385 MG/DL (83-110)
[2018-07-24] MEDS: LEVALBUTEROL 1.25 MG/0.5 ML CONCENTRATE NEB INH ×3 (04:35→21:35)
[2018-07-24 07:00] LABS: BEDSIDE GLUCOSE 97 MG/DL (83-110)
[2018-07-24] MEDS: HumaLOG INSULIN (NovoLOG) PER UNIT SC ×4 (07:30→20:32)
[2018-07-24] MEDS: TIOTROPIUM INHALER/CAPSULE (SPIRIVA) INH (07:46)
[2018-07-24] MEDS: SYMBICORT 160/4.5MCG INHALER 6GM INH ×2 (07:46→20:00)
[2018-07-24] MEDS: ATORVASTATIN 10 MG TAB PO (08:00)
[2018-07-24] MEDS: predniSONE 10 MG TAB PO (08:00)
[2018-07-24] MEDS: AUGMENTIN 875 MG TAB PO ×2 (08:00→20:07)
[2018-07-24] MEDS: ENOXAPARIN 40 MG/0.4 ML SYRINGE (J1650) SC (08:01)
[2018-07-24] MEDS: ASPIRIN 81 MG ENTERIC TAB PO (08:01)
[2018-07-24] MEDS: SENOKOT S TAB PO ×3 (08:01→20:07)
[2018-07-24] MEDS: LEVEMIR (INSULIN DETEMIR) 1 UNITS/0.01ML SC (08:01)
[2018-07-24 08:50] LABS: HEMATOCRIT 29.6 % (36.0-47.0); HEMOGLOBIN 9.4 g/dl (12.0-15.5); MEAN CORPUSCULAR HEMOGLOBIN 28.7 pg (27.0-33.0); MEAN CORPUSCULAR HGB CONC 31.8 g/dl (32.0-36.5); MEAN CORPUSCULAR VOLUME 90.5 fl (80.0-96.0); PLATELET COUNT, AUTOMATED 277 10^3/uL (150-450); RED BLOOD COUNT 3.27 10^6/uL (4.00-5.40); RED CELL DISTRIBUTION WIDTH 18.6 % (11.5-14.5); WHITE BLOOD COUNT 11.7 10^3/uL (4.0-10.0)
[2018-07-24 08:53] LABS: ADD MANUAL DIFFER YES; DIFF SLIDE NUMBER 40; POSITIVE MORPH POS FLAG
[2018-07-24 09:13] LABS: ANION GAP 9 MEQ/L (8-16); BLOOD UREA NITROGEN 28 MG/DL (7-18); CALCIUM LEVEL 8.3 MG/DL (8.8-10.2); CARBON DIOXIDE LEVEL 32 MEQ/L (21-32); CHLORIDE LEVEL 95 MEQ/L (98-107); CREATININE FOR GFR 0.71 MG/DL (0.55-1.30); GLOMERULAR FILTRATION RATE > 60.0 (>32); GLUCOSE, FASTING 264 MG/DL (70-100); MAGNESIUM LEVEL 2.1 MG/DL (1.8-2.4); POTASSIUM SERUM 3.5 MEQ/L (3.5-5.1); SODIUM LEVEL 136 MEQ/L (136-145)
[2018-07-24 09:34] LABS: ANISOCYTOSIS 2+; BANDS 1 % (< 11); LYMPHOCYTES 8 % (16-52); MONOCYTES 2 % (0-8); NEUTROPHILS 89 % (35-75); PLATELET ESTIMATE NORMAL (NORMAL)
[2018-07-24 11:36] LABS: BEDSIDE GLUCOSE 218 MG/DL (83-110)
[2018-07-25] MEDS: LEVALBUTEROL 1.25 MG/0.5 ML CONCENTRATE NEB INH ×3 (05:43→21:02)
[2018-07-25] MEDS: HumaLOG INSULIN (NovoLOG) PER UNIT SC ×4 (07:30→21:00)
[2018-07-25] MEDS: TIOTROPIUM INHALER/CAPSULE (SPIRIVA) INH (08:49)
[2018-07-25] MEDS: SYMBICORT 160/4.5MCG INHALER 6GM INH ×2 (08:49→20:00)
[2018-07-25] MEDS: SENOKOT S TAB PO ×2 (09:00→21:00)
[2018-07-25] MEDS: AUGMENTIN 875 MG TAB PO ×2 (09:00→21:58)
[2018-07-25] MEDS: ENOXAPARIN 40 MG/0.4 ML SYRINGE (J1650) SC (09:00)
[2018-07-25] MEDS: LEVEMIR (INSULIN DETEMIR) 1 UNITS/0.01ML SC (09:00)
[2018-07-25] MEDS: FUROSEMIDE 40 MG TAB PO (09:00)
[2018-07-25] MEDS: ATORVASTATIN 10 MG TAB PO (09:00)
[2018-07-25] MEDS: ASPIRIN 81 MG ENTERIC TAB PO (09:46)
[2018-07-25] MEDS: predniSONE 10 MG TAB PO (09:47)
[2018-07-26] MEDS: LEVALBUTEROL 1.25 MG/0.5 ML CONCENTRATE NEB INH ×4 (00:48→20:06)
[2018-07-26] MEDS: ALPRAZolam 0.25 MG TAB PO (05:58)
[2018-07-26] MEDS: TIOTROPIUM INHALER/CAPSULE (SPIRIVA) INH (07:50)
[2018-07-26] MEDS: SYMBICORT 160/4.5MCG INHALER 6GM INH ×2 (07:50→20:00)
[2018-07-26] MEDS: AUGMENTIN 875 MG TAB PO ×2 (09:09→21:31)
[2018-07-26] MEDS: ENOXAPARIN 40 MG/0.4 ML SYRINGE (J1650) SC (09:09)
[2018-07-26] MEDS: predniSONE 10 MG TAB PO (09:09)
[2018-07-26] MEDS: LEVEMIR (INSULIN DETEMIR) 1 UNITS/0.01ML SC (09:10)
[2018-07-26] MEDS: ASPIRIN 81 MG ENTERIC TAB PO (09:10)
[2018-07-26] MEDS: SENOKOT S TAB PO ×2 (09:11→21:31)
[2018-07-26] MEDS: HumaLOG INSULIN (NovoLOG) PER UNIT SC ×4 (09:11→21:00)
[2018-07-26] MEDS: ATORVASTATIN 10 MG TAB PO (09:11)
[2018-07-26] MEDS: FUROSEMIDE 40 MG TAB PO ×2 (10:55→21:31)
[2018-07-26 11:40] LABS: BEDSIDE GLUCOSE 153 MG/DL (83-110)
[2018-07-26 11:58] LABS: BEDSIDE GLUCOSE 274 MG/DL (83-110)
[2018-07-26 11:58] LABS: BEDSIDE GLUCOSE 322 MG/DL (83-110)
[2018-07-26 11:59] LABS: BEDSIDE GLUCOSE 297 MG/DL (83-110)
[2018-07-26 11:59] LABS: BEDSIDE GLUCOSE 362 MG/DL (83-110)
[2018-07-26 11:59] LABS: BEDSIDE GLUCOSE 154 MG/DL (83-110)
[2018-07-26 11:59] LABS: BEDSIDE GLUCOSE 232 MG/DL (83-110)
[2018-07-26] MEDS ORDERED: ONDANSETRON 4 MG TAB (S0181) PO (12:00)
[2018-07-26 16:37] LABS: BEDSIDE GLUCOSE 367 MG/DL (83-110)
[2018-07-27] MEDS: LEVALBUTEROL 1.25 MG/0.5 ML CONCENTRATE NEB INH ×2 (01:34→04:32)
[2018-07-27 05:59] LABS: HEMATOCRIT 28.4 % (36.0-47.0); MEAN CORPUSCULAR HEMOGLOBIN 28.6 pg (27.0-33.0); MEAN CORPUSCULAR HGB CONC 31.7 g/dl (32.0-36.5); MEAN CORPUSCULAR VOLUME 90.2 fl (80.0-96.0); PLATELET COUNT, AUTOMATED 327 10^3/uL (150-450); RED BLOOD COUNT 3.15 10^6/uL (4.00-5.40); WHITE BLOOD COUNT 10.1 10^3/uL (4.0-10.0)
[2018-07-27 06:04] LABS: ADD MANUAL DIFFER YES; DIFF SLIDE NUMBER 53; POSITIVE MORPH POS FLAG
[2018-07-27 06:19] LABS: ANION GAP 7 MEQ/L (8-16); BLOOD UREA NITROGEN 17 MG/DL (7-18); CALCIUM LEVEL 7.7 MG/DL (8.8-10.2); CARBON DIOXIDE LEVEL 35 MEQ/L (21-32); CHLORIDE LEVEL 100 MEQ/L (98-107); GLOMERULAR FILTRATION RATE > 60.0 (>32); GLUCOSE, FASTING 67 MG/DL (70-100); MAGNESIUM LEVEL 1.9 MG/DL (1.8-2.4); POTASSIUM SERUM 3.2 MEQ/L (3.5-5.1); SODIUM LEVEL 142 MEQ/L (136-145)
[2018-07-27 06:40] LABS: ATYPICAL LYMPH 1 % (0-5); LYMPHOCYTES 22 % (16-52); MONOCYTES 6 % (0-8); NEUTROPHILS 71 % (35-75)
[2018-07-27 06:41] LABS: ANISOCYTOSIS 2+; PLATELET ESTIMATE INCREASED (NORMAL)
[2018-07-27 06:42] LABS: HYPOCHROMASIA 1+; POIKILOCYTOSIS 1+
[2018-07-27] MEDS: ALPRAZolam 0.25 MG TAB PO ×3 (07:25→21:47)
[2018-07-27] MEDS: TIOTROPIUM INHALER/CAPSULE (SPIRIVA) INH (07:26)
[2018-07-27] MEDS: SYMBICORT 160/4.5MCG INHALER 6GM INH ×2 (07:27→19:59)
[2018-07-27] MEDS: HumaLOG INSULIN (NovoLOG) PER UNIT SC ×4 (07:30→21:00)
[2018-07-27] MEDS: ATORVASTATIN 10 MG TAB PO (09:26)
[2018-07-27] MEDS: AUGMENTIN 875 MG TAB PO ×2 (09:26→21:48)
[2018-07-27] MEDS: ASPIRIN 81 MG ENTERIC TAB PO (09:26)
[2018-07-27] MEDS: FUROSEMIDE 40 MG/4 ML VIAL (J1940) IV (09:26)
[2018-07-27] MEDS: ENOXAPARIN 40 MG/0.4 ML SYRINGE (J1650) SC (09:26)
[2018-07-27] MEDS: LEVEMIR (INSULIN DETEMIR) 1 UNITS/0.01ML SC (09:27)
[2018-07-27] MEDS: predniSONE 10 MG TAB PO (09:27)
[2018-07-27] MEDS: SENOKOT S TAB PO ×2 (09:27→21:47)
[2018-07-27] MEDS: POTASSIUM CHLORIDE 10 MEQ SR TABLET PO (09:28)
[2018-07-27] MEDS: DEXTROSE 50% 50 ML SYRINGE IV (17:08)
[2018-07-27 17:38] LABS: BEDSIDE GLUCOSE CONFIRMATION 196 MG/DL (LESS THAN 200)
[2018-07-27 18:06] LABS: BEDSIDE GLUCOSE 159 MG/DL (83-110)
[2018-07-27 18:06] LABS: BEDSIDE GLUCOSE 175 MG/DL (83-110)
[2018-07-27 18:06] LABS: BEDSIDE GLUCOSE 293 MG/DL (83-110)
[2018-07-27 18:06] LABS: BEDSIDE GLUCOSE 378 MG/DL (83-110)
[2018-07-27 18:06] LABS: BEDSIDE GLUCOSE 190 MG/DL (83-110)
[2018-07-27 18:06] LABS: BEDSIDE GLUCOSE 33 MG/DL (83-110)
[2018-07-27] MEDS: FUROSEMIDE 40 MG TAB PO (21:47)
[2018-07-27 21:49] LABS: BEDSIDE GLUCOSE 173 MG/DL (83-110)
[2018-07-28] MEDS: LEVALBUTEROL 1.25 MG/0.5 ML CONCENTRATE NEB INH ×3 (02:57→23:09)
[2018-07-28] MEDS: guaiFENesin ER 600 MG TAB PO (06:59)
[2018-07-28] MEDS: SYMBICORT 160/4.5MCG INHALER 6GM INH ×2 (07:16→20:15)
[2018-07-28] MEDS: TIOTROPIUM INHALER/CAPSULE (SPIRIVA) INH (07:16)
[2018-07-28] MEDS: HumaLOG INSULIN (NovoLOG) PER UNIT SC ×4 (07:30→20:20)
[2018-07-28 08:10] LABS: HEMATOCRIT 26.1 % (36.0-47.0); HEMOGLOBIN 8.4 g/dl (12.0-15.5); MEAN CORPUSCULAR HEMOGLOBIN 28.9 pg (27.0-33.0); MEAN CORPUSCULAR HGB CONC 32.2 g/dl (32.0-36.5); MEAN CORPUSCULAR VOLUME 89.7 fl (80.0-96.0); PLATELET COUNT, AUTOMATED 341 10^3/uL (150-450); RED BLOOD COUNT 2.91 10^6/uL (4.00-5.40); RED CELL DISTRIBUTION WIDTH 18.1 % (11.5-14.5); WHITE BLOOD COUNT 10.6 10^3/uL (4.0-10.0)
[2018-07-28 08:15] LABS: ADD MANUAL DIFFER YES; DIFF SLIDE NUMBER 34; POSITIVE MORPH POS FLAG
[2018-07-28 08:33] LABS: ANION GAP 7 MEQ/L (8-16); BLOOD UREA NITROGEN 17 MG/DL (7-18); CALCIUM LEVEL 7.7 MG/DL (8.8-10.2); CARBON DIOXIDE LEVEL 32 MEQ/L (21-32); CHLORIDE LEVEL 100 MEQ/L (98-107); CREATININE FOR GFR 0.51 MG/DL (0.55-1.30); GLOMERULAR FILTRATION RATE > 60.0 (>32); GLUCOSE, FASTING 60 MG/DL (70-100); MAGNESIUM LEVEL 2.1 MG/DL (1.8-2.4); POTASSIUM SERUM 3.6 MEQ/L (3.5-5.1); SODIUM LEVEL 139 MEQ/L (136-145)
[2018-07-28] MEDS: FUROSEMIDE 40 MG TAB PO ×2 (09:00→20:08)
[2018-07-28] MEDS: LEVEMIR (INSULIN DETEMIR) 1 UNITS/0.01ML SC (09:00)
[2018-07-28] MEDS: ENOXAPARIN 40 MG/0.4 ML SYRINGE (J1650) SC (09:00)
[2018-07-28] MEDS: SENOKOT S TAB PO ×2 (09:00→20:08)
[2018-07-28] MEDS: ASPIRIN 81 MG ENTERIC TAB PO (09:09)
[2018-07-28] MEDS: ATORVASTATIN 10 MG TAB PO (09:10)
[2018-07-28] MEDS: predniSONE 10 MG TAB PO (09:10)
[2018-07-28] MEDS: AUGMENTIN 875 MG TAB PO ×2 (09:10→20:07)
[2018-07-28 09:32] LABS: BANDS 6 % (< 11); LYMPHOCYTES 7 % (16-52); MONOCYTES 2 % (0-8); MYELOCYTES 1 % (0-0); NEUTROPHILS 84 % (35-75); PLATELET ESTIMATE NORMAL (NORMAL)
[2018-07-28 09:33] LABS: ANISOCYTOSIS 1+; HYPOCHROMASIA 1+
[2018-07-28 12:08] LABS: BEDSIDE GLUCOSE 159 MG/DL (83-110)
[2018-07-28] MEDS: ALPRAZolam 0.25 MG TAB PO ×2 (12:31→18:39)
[2018-07-28] MEDS: OMEPRAZOLE 20 MG CAP PO (15:59)
[2018-07-28 16:43] LABS: BEDSIDE GLUCOSE 311 MG/DL (83-110)
[2018-07-28 20:15] LABS: BEDSIDE GLUCOSE 276 MG/DL (83-110)
[2018-07-29] MEDS: LEVALBUTEROL 1.25 MG/0.5 ML CONCENTRATE NEB INH ×2 (03:46→21:36)
[2018-07-29] MEDS: SYMBICORT 160/4.5MCG INHALER 6GM INH ×2 (07:16→19:47)
[2018-07-29] MEDS: TIOTROPIUM INHALER/CAPSULE (SPIRIVA) INH (07:16)
[2018-07-29] MEDS: HumaLOG INSULIN (NovoLOG) PER UNIT SC ×4 (07:30→20:56)
[2018-07-29 08:41] LABS: BEDSIDE GLUCOSE 159 MG/DL (83-110)
[2018-07-29] MEDS: ASPIRIN 81 MG ENTERIC TAB PO (09:00)
[2018-07-29] MEDS: AUGMENTIN 875 MG TAB PO ×3 (09:00→20:30)
[2018-07-29] MEDS: LEVEMIR (INSULIN DETEMIR) 1 UNITS/0.01ML SC ×2 (09:00→12:46)
[2018-07-29] MEDS: ENOXAPARIN 40 MG/0.4 ML SYRINGE (J1650) SC (09:00)
[2018-07-29] MEDS: ATORVASTATIN 10 MG TAB PO (09:00)
[2018-07-29] MEDS: FUROSEMIDE 40 MG TAB PO ×3 (09:00→20:30)
[2018-07-29] MEDS: SENOKOT S TAB PO ×2 (09:00→20:30)
[2018-07-29] MEDS: predniSONE 20 MG TAB PO ×2 (09:00)
[2018-07-29] MEDS: ALPRAZolam 0.25 MG TAB PO ×2 (10:52→17:25)
[2018-07-29 12:40] LABS: BEDSIDE GLUCOSE 439 MG/DL (83-110)
[2018-07-29 16:55] LABS: BEDSIDE GLUCOSE 184 MG/DL (83-110)
[2018-07-29 20:39] LABS: BEDSIDE GLUCOSE 190 MG/DL (83-110)
[2018-07-30] MEDS: ALPRAZolam 0.25 MG TAB PO ×3 (00:12→17:47)
[2018-07-30] MEDS: HumaLOG INSULIN (NovoLOG) PER UNIT SC ×4 (07:30→21:00)
[2018-07-30] MEDS: glipiZIDE *2.5MG* 1/2 TABLET PO ×4 (07:30→17:47)
[2018-07-30] MEDS: TIOTROPIUM INHALER/CAPSULE (SPIRIVA) INH (08:02)
[2018-07-30] MEDS: SYMBICORT 160/4.5MCG INHALER 6GM INH ×2 (08:02→19:46)
[2018-07-30 09:00] LABS: HEMATOCRIT 26.5 % (36.0-47.0); HEMOGLOBIN 8.5 g/dl (12.0-15.5); MEAN CORPUSCULAR HEMOGLOBIN 28.9 pg (27.0-33.0); MEAN CORPUSCULAR HGB CONC 32.1 g/dl (32.0-36.5); MEAN CORPUSCULAR VOLUME 90.1 fl (80.0-96.0); PLATELET COUNT, AUTOMATED 350 10^3/uL (150-450); RED BLOOD COUNT 2.94 10^6/uL (4.00-5.40); RED CELL DISTRIBUTION WIDTH 17.8 % (11.5-14.5); WHITE BLOOD COUNT 11.3 10^3/uL (4.0-10.0)
[2018-07-30] MEDS: SENOKOT S TAB PO ×3 (09:00→21:47)
[2018-07-30] MEDS: ENOXAPARIN 40 MG/0.4 ML SYRINGE (J1650) SC (09:00)
[2018-07-30] MEDS: ASPIRIN 81 MG ENTERIC TAB PO (09:00)
[2018-07-30] MEDS: ATORVASTATIN 10 MG TAB PO (09:00)
[2018-07-30 09:37] LABS: ADD MANUAL DIFFER YES; DIFF SLIDE NUMBER 23; POS COUNT POS FLAG; POSITIVE MORPH POS FLAG
[2018-07-30 09:47] LABS: ANION GAP 6 MEQ/L (8-16); BLOOD UREA NITROGEN 16 MG/DL (7-18); CALCIUM LEVEL 8.2 MG/DL (8.8-10.2); CARBON DIOXIDE LEVEL 33 MEQ/L (21-32); CHLORIDE LEVEL 102 MEQ/L (98-107); CREATININE FOR GFR 0.56 MG/DL (0.55-1.30); GLOMERULAR FILTRATION RATE > 60.0 (>32); GLUCOSE, FASTING 79 MG/DL (70-100); MAGNESIUM LEVEL 1.9 MG/DL (1.8-2.4); POTASSIUM SERUM 3.4 MEQ/L (3.5-5.1); SODIUM LEVEL 141 MEQ/L (136-145)
[2018-07-30] MEDS: FUROSEMIDE 40 MG TAB PO ×2 (10:02→17:48)
[2018-07-30] MEDS: AUGMENTIN 875 MG TAB PO (10:02)
[2018-07-30] MEDS: predniSONE 20 MG TAB PO (10:02)
[2018-07-30 10:04] LABS: ATYPICAL LYMPH 1 % (0-5); BANDS 5 % (< 11); EOSINOPHILS 1 % (0-5); LYMPHOCYTES 17 % (16-52); METAMYELOCYTES 2 % (0-0); MONOCYTES 1 % (0-8); MYELOCYTES 6 % (0-0); NEUTROPHILS 67 % (35-75); PLATELET ESTIMATE NORMAL (NORMAL)
[2018-07-30 10:05] LABS: ANISOCYTOSIS 1+; MICROCYTOSIS 1+
[2018-07-30 10:06] LABS: TOXIC GRANULATION 1+
[2018-07-30] MEDS: LEVALBUTEROL 1.25 MG/0.5 ML CONCENTRATE NEB INH ×2 (11:25→15:29)
[2018-07-30 11:45] LABS: BEDSIDE GLUCOSE 236 MG/DL (83-110)
[2018-07-30 16:54] LABS: BEDSIDE GLUCOSE 195 MG/DL (83-110)
[2018-07-30] MEDS: POTASSIUM CHLORIDE 10 MEQ SR TABLET PO (17:47)
[2018-07-30 20:43] LABS: BEDSIDE GLUCOSE 137 MG/DL (83-110)
[2018-07-31 07:04] LABS: HEMATOCRIT 29.7 % (36.0-47.0); HEMOGLOBIN 9.4 g/dl (12.0-15.5); MEAN CORPUSCULAR HEMOGLOBIN 28.7 pg (27.0-33.0); MEAN CORPUSCULAR HGB CONC 31.6 g/dl (32.0-36.5); MEAN CORPUSCULAR VOLUME 90.8 fl (80.0-96.0); PLATELET COUNT, AUTOMATED 395 10^3/uL (150-450); RED BLOOD COUNT 3.27 10^6/uL (4.00-5.40); RED CELL DISTRIBUTION WIDTH 17.7 % (11.5-14.5); WHITE BLOOD COUNT 14.5 10^3/uL (4.0-10.0)
[2018-07-31 07:06] LABS: ADD MANUAL DIFFER YES; DIFF SLIDE NUMBER 13; POS COUNT POS FLAG; POSITIVE MORPH POS FLAG
[2018-07-31 07:21] LABS: ANION GAP 8 MEQ/L (8-16); BLOOD UREA NITROGEN 16 MG/DL (7-18); CALCIUM LEVEL 8.7 MG/DL (8.8-10.2); CARBON DIOXIDE LEVEL 31 MEQ/L (21-32); CHLORIDE LEVEL 102 MEQ/L (98-107); CREATININE FOR GFR 0.54 MG/DL (0.55-1.30); GLOMERULAR FILTRATION RATE > 60.0 (>32); GLUCOSE, FASTING 65 MG/DL (70-100); POTASSIUM SERUM 3.8 MEQ/L (3.5-5.1); SODIUM LEVEL 141 MEQ/L (136-145)
[2018-07-31 07:22] LABS: ANISOCYTOSIS 1+; LYMPHOCYTES 11 % (16-52); METAMYELOCYTES 2 % (0-0); MONOCYTES 3 % (0-8); MYELOCYTES 5 % (0-0); NEUTROPHILS 79 % (35-75); PLATELET ESTIMATE NORMAL (NORMAL)
[2018-07-31] MEDS: glipiZIDE *2.5MG* 1/2 TABLET PO (07:30)
[2018-07-31] MEDS: HumaLOG INSULIN (NovoLOG) PER UNIT SC (07:30)
[2018-07-31] MEDS: SYMBICORT 160/4.5MCG INHALER 6GM INH (07:40)
[2018-07-31] MEDS: TIOTROPIUM INHALER/CAPSULE (SPIRIVA) INH (07:40)
[2018-07-31] MEDS: ENOXAPARIN 40 MG/0.4 ML SYRINGE (J1650) SC (08:06)
[2018-07-31] MEDS: SENOKOT S TAB PO (08:06)
[2018-07-31] MEDS: ATORVASTATIN 10 MG TAB PO (08:07)
[2018-07-31] MEDS: FUROSEMIDE 40 MG TAB PO ×2 (08:08→09:14)
[2018-07-31] MEDS: ASPIRIN 81 MG ENTERIC TAB PO (09:00)
[2018-07-31] MEDS: predniSONE 20 MG TAB PO (09:00)
[2018-07-31] MEDS: ALPRAZolam 0.25 MG TAB PO (09:01)
[2018-07-31] MEDS: guaiFENesin ER 600 MG TAB PO (09:13)
[2018-07-31 11:38] LABS: BEDSIDE GLUCOSE 146 MG/DL (83-110)
== END 2018-07-31 12:25 | disposition home or self-care (01) | DRG 291 ==
LOC: M MS5PR 23:56 → M ED 16:52 → M ED INP 20:10
DX: I50.33 Acute on chronic diastolic (congestive) heart failure (principal); J18.9 Pneumonia, unspecified organism; J96.11 Chronic respiratory failure with hypoxia; J44.1 Chronic obstructive pulmonary disease with (acute) exacerbation; K21.9 Gastro-esophageal reflux disease without esophagitis; I27.20 Pulmonary hypertension, unspecified; I45.10 Unspecified right bundle-branch block; M85.80 Other specified disorders of bone density and structure, unspecified site; I25.10 Atherosclerotic heart disease of native coronary artery without angina pectoris; I25.2 Old myocardial infarction; R42 Dizziness and giddiness; F41.9 Anxiety disorder, unspecified; Z95.5 Presence of coronary angioplasty implant and graft; Z90.49 Acquired absence of other specified parts of digestive tract; Z87.891 Personal history of nicotine dependence; Z79.82 Long term (current) use of aspirin; Z79.52 Long term (current) use of systemic steroids; Z79.899 Other long term (current) drug therapy; Z91.19 Patient's noncompliance with other medical treatment and regimen; Z86.73 Personal history of transient ischemic attack (TIA), and cerebral infarction without residual deficits; Z86.13 Personal history of malaria; D64.9 Anemia, unspecified; E02 Subclinical iodine-deficiency hypothyroidism; Z90.5 Acquired absence of kidney; Z86.718 Personal history of other venous thrombosis and embolism; F03.90 Unspecified dementia, unspecified severity, without behavioral disturbance, psychotic disturbance, mood disturbance, and anxiety; Z99.81 Dependence on supplemental oxygen; Y95 Nosocomial condition; I95.1 Orthostatic hypotension; E11.9 Type 2 diabetes mellitus without complications

== ENCOUNTER 2018-07-31 19:51 | Inpatient (IN) | payer MEDICARE, OTHER ==
[~2018-07-31] VITALS: Ht 152.4 cm; Wt 42.0 kg
[~2018-07-31 19:51] MED LIST changes: -/ACETCOD2T PO; -/AMLO25TA PO; -/IPRAINH INH; +ACET-716 PO; +ACET1TAB15 PO; -ACET30TAB PO; +ALBU83IN NEB; +AMLO10TA5 PO; -ASPI1TAB PO; +ASPI81TA26 PO; +ASPI81TA85 PO; +ATOR1TAB19 PO; -CALC1TAB17 PO; +DEMA20TA6 PO; -DOXY-278 PO; +DOXY-350 PO; +ELIQ2.5T PO; +FERR32TA PO; +GABA-1171 PO; -GABA-279 PO; +GLIP5TAB8 PO; +GUAI100L5 PO; -GUAI10EL PO; +GUAI1TAB PO; +IPRA0.00 NEB; -IPRASOL4 NEB; +LASI40TA9 PO; +MUCI600T31 PO; +NORV2TAB PO; +OMEP20TA PO; +OYST500T78 PO; -PANT40TA2 PO; +PANT40TA3 PO; +PRED-351 PO; -PRED10TA PO; +PROAAER10 INH; +SPIR-10 PO; -SPIR25TA2 PO; +SUCR10SS PO; +SYMB16INH INH; +TIOT18INH INH; +TIZA2CAP PO; -TIZA2CAP3 PO; +ZYRT10CA5 PO; -ZYRT10TA2 PO
[2018-07-31] MEDS ORDERED: IPRATROPIUM 0.5MG/ALBUTEROL 2.5MG INH SOL UD 3ML (DUONEB)(J7620) NEB ONE ×2 (20:15→23:30)
[2018-07-31] MEDS ORDERED: dexameTHASONE 20 MG/5 ML VIAL (J1100) IV ONE (20:15)
[2018-07-31 22:22] LABS: HEMATOCRIT 27.7 % (36.0-47.0); HEMOGLOBIN 8.9 g/dl (12.0-15.5); MEAN CORPUSCULAR HEMOGLOBIN 29.3 pg (27.0-33.0); MEAN CORPUSCULAR HGB CONC 32.1 g/dl (32.0-36.5); MEAN CORPUSCULAR VOLUME 91.1 fl (80.0-96.0); PLATELET COUNT, AUTOMATED 367 10^3/uL (150-450); RED BLOOD COUNT 3.04 10^6/uL (4.00-5.40); WHITE BLOOD COUNT 15.8 10^3/uL (4.0-10.0)
[2018-07-31] MEDS ORDERED: VENTAER INH (22:30)
[2018-07-31] MEDS ORDERED: CETI10TA PO (22:30)
[2018-07-31] MEDS ORDERED: ATOR1TAB19 PO (22:30)
[2018-07-31] MEDS ORDERED: GLIP5TAB8 PO (22:30)
[2018-07-31] MEDS ORDERED: ALBU83IN INH (22:30)
[2018-07-31 22:55] LABS: LYMPHOCYTES 4 % (16-52); METAMYELOCYTES 1 % (0-0); MONOCYTES 3 % (0-8); MYELOCYTES 4 % (0-0); NEUTROPHILS 88 % (35-75); PLATELET ESTIMATE NORMAL (NORMAL)
[2018-07-31 22:56] LABS: ANISOCYTOSIS 2+
[2018-07-31] MEDS ORDERED: GLUCOSE 4 GM CHEW TABLET PO PRN (23:00)
[2018-07-31] MEDS ORDERED: GLUCAGON FOR INJ 1 MG VIAL (J1610) SC PRN (23:00)
[2018-07-31] MEDS ORDERED: DEXTROSE 50% 50 ML SYRINGE IV PRN (23:00)
[2018-07-31 23:04] LABS: BLOOD UREA NITROGEN 22 MG/DL (7-18); CALCIUM LEVEL 8.4 MG/DL (8.8-10.2); CARBON DIOXIDE LEVEL 29 MEQ/L (21-32); CHLORIDE LEVEL 98 MEQ/L (98-107); GLOMERULAR FILTRATION RATE > 60.0 (>32); GLUCOSE, FASTING 284 MG/DL (70-100); SODIUM LEVEL 138 MEQ/L (136-145)
--- NOTE | 2018-07-31 23:54 | HPEPDOC ---
General Date of Admission Chief Complaint The patient is a 83-year-old female admitted with a reason for visit of SOB. Source: Patient, Family Exam Limitations: Dementia (patient is oriented to person and place and knows what year it is but does not know the month or day.) History of Present Illness 83-year-old female admitted for acute on chronic COPD exacerbation and inability to care for self. She was discharged this morning. She has a PMHx of COPD on O2 2-3 Lpm, poor ambulatory function- uses walker, Pulmonary HTN, CAD s/p CABG, Hx of NE, Chronic RBBB, Hx of TIA, Hx of Malaria, Hx of Dysentery, Anxiety, Hx of MRSA, Hx of Diverticulosis, Osteopenia and GERD. The patient was discharged home today after being hospitalized since July 14 2018. The patient states that she became anxious and short of breath. Her son was bedside and states that he increased her oxygen and gave her Xanax, but she was not relieved. He states that he is no longer able to care for her. She describes a baseline shortness of breath and cough. She denies fevers, chills, nausea, vomiting, dizziness, change in vision, change of smell, constipation, diarrhea or burning on urination. In the ED she was given 10 mg of Decadron and started on O2 via nasal cannula. Home Medications Scheduled Aspirin (Aspir-81) 81 Mg Tab, 81 MG PO DAILY, (Reported) Atorvastatin Calcium (Atorvastatin Calcium) 10 Mg Tab, 10 MG PO DAILY, (Reported) Calcium/Vitamin D (Calcium 600 + D 600-400 mg-Unit) 1 Tab Tab, 1 TAB PO DAILY, (Reported) Furosemide (Furosemide) 40 Mg Tab, 40 MG PO BID, (Reported) Glipizide (Glipizide) 5 Mg Tab, 2.5 MG PO BID, (Reported) TAKES MORNING AND DINNERTIME Prednisone (Prednisone) 10 Mg Tab, 10 MG PO DAILY, (Reported) Scheduled PRN Albuterol Sulfate (Ventolin Hfa) 108 Mcg/Act Aer, 2 PUFFS INH Q4H PRN for SHORTNESS OF BREATH, (Reported) Albuterol Sulfate (Albuterol Sulfate) 2.5 Mg/3 Ml Nebu, 2.5 MG INH Q6H PRN for SHORTNESS OF BREATH, (Reported) Alprazolam (Alprazolam) 0.25 Mg Tab, 0.25 MG PO TID PRN for ANXIETY, (Reported) Budesonide/Formoterol (Symbicort 160-4.5 Mcg/Act) 60 Puff/Inhaler Aers, 2 PUFF INH BID PRN for SHORTNESS OF BREATH, (Reported) Cetirizine HCl (Cetirizine HCl) 10 Mg Tab, 10 MG PO DAILY PRN for CONGESTION, (Reported) Guaifenesin (Mucinex) 600 Mg Tab, 600 MG PO BID PRN for COUGH, (Reported) Ipratropium [place] (Atrovent Hfa) 17 Mcg/Act Aer, 2 PUFF INH QID PRN for SHORTNESS OF BREATH, (Reported) Nitroglycerin (Nitrostat) 0.4 Mg Subl, 0.4 MG SL NITRO PRN for CHEST PAIN, (Reported) Omeprazole (Omeprazole) 20 Mg Cap, 20 MG PO DAILY PRN for ACID REFLUX, (Reported) Tiotropium [place] Monohydrate (Spiriva Handihaler) 5 Inhalation/Inhaler Powd, 1 INHALATION INH DAILY PRN for SHORTNESS OF BREATH, (Reported) Allergies Coded Allergies: Levofloxacin (Unverified Allergy, Intermediate, taken avelox in the past, 07/14/18) Procaine (Verified Allergy, Mild, RASH, 07/14/18) Past Medical History Medical History See HPI Social History * Smoker: former Smoker Alcohol: Denies Drugs: denies Recent Travel/Sick Contacts: Denies: Recent travel, Recent sick contacts Psychosocial History: Anxiety, Dementia Review of Systems Constitutional: Denies: Chills, Fever, Night Sweats Eyes: Denies: Pain, Vision change ENT: Denies: Head Aches, Ear Pain, Dysphagia Skin: Denies: Rash, Lesions, Breakdown Pulmonary: Reports: Dyspnea, Cough Cardiovascular: Denies: Chest Pain, Palpitations, Orthopnea, Paroxysmal Noc. Dyspnea, Lt Headedness Gastrointestinal: Denies: Nausea, Vomiting, Abdominal Pain, Diarrhea Genitourinary: Denies: Dysuria, Frequency, Incontinence, Retention Hematologic: Denies: Bruising, Bleeding Excessively Musculoskeletal: Denies: Neck Pain, Back Pain, Joint Pain, Muscle Pain, Spasms Neurological: Denies: Weakness, Numbness, Change in speech, Confusion Psych: Reports: Mood Normal, Anxiety; Denies: Depression, Memory Issues Physical Examination General Exam: Positive: Alert, Cooperative, No Acute Distress Eye Exam: Positive: PERRLA, Conjunctiva & lids normal, EOMI; Negative: Sclera icteric ENT Exam: Positive: Atraumatic, Mucous membr. moist/pink, Pharynx Normal, Tongue Midline, Nares Patent Neck Exam: Positive: Supple, +2 carotid pulse wo bruit; Negative: JVD, thyromegaly Chest Exam: Positive: Clear to auscultation, Diminished; Negative: Normal air movement, Wheezing Heart Exam: Positive: Rate Normal, Regular Rhythm, Normal S1, Normal S2; Negative: Murmurs, Rubs Telemetry: Positive: No significant arrhythmia Abdomen Exam: Positive: Normal bowel sounds, Soft; Negative: Tenderness, Hepatospenomegaly Extremity Exam: Positive: Normal pulses; Negative: Clubbing, Cyanosis, Edema Skin Exam: Positive: Nl turgor and temperature; Negative: Breakdown, Lesion Neuro Exam: Positive: Normal Speech, Sensation Intact, Cranial Nerves 3-12 NL, Reflexes 2+; Negative: Normal Gait Psych Exam: Positive: Anxiety, Other (patient did not know the month or the day. She is oriented to person and place and year); Negative: Memory Intact Vital Signs Vital Signs Date Time Temp Pulse Resp B/P (MAP) Pulse Ox O2 Delivery O2 Flow Rate FiO2 07/31/18 20:35 97 Nasal Cannula 1.0 07/31/18 20:35 102 24 07/31/18 20:00 98.5 141/63 (89) Laboratory Data Labs 24H Laboratory Tests 2 07/31/18 22:16: Immature Granulocyte % (Auto) , Nucleated Red Blood Cells % (auto) 0.0, Neutrophils 88H, Lymphocytes (Manual) 4L, Monocytes (Manual) 3, Metamyelocytes 1H, Myelocytes 4H, Platelet Estimate NORMAL, Anisocytosis 2+ CBC/BMP Laboratory Tests 07/31/18 22:16 Red Blood Count 3.04 L, Mean Corpuscular Volume 91.1, Mean Corpuscular Hemoglobin 29.3, Mean Corpuscular Hemoglobin Concent 32.1, Red Cell Distribution Width 18.1 H Assessment/Plan 83-year-old female admitted for acute on chronic COPD exacerbation, Ambulatory dysfunction and inability to care for self. She was discharged this morning after admission for two weeks. She has a PMHx of COPD on O2 2-3 Lpm, poor ambul atory function- uses walker, Pulmonary HTN, CAD s/p CABG, Hx of NE, Chronic RBBB, Hx of TIA, Hx of Malaria, Hx of Dysentery, Anxiety, Hx of MRSA, Hx of Diverticulosis, Osteopenia and GERD. COPD exacerbation DuoNeb's every 4 hours when necessary and every 15 minutes when necessary Solu-Medrol 40 milligrams every 12 hours CXR consistent with COPD, no pneumonia identified Nasal cannula 2lpm, titrated to keep spO2 >94% Patient was recently treated with antibiotics. She is afebrile. Leukocytosis, li mikal secondary to steroid use BiPAP as needed Chest physiotherapy Suction as needed Elevate head of bed Flu vaccine to be administered before discharge Patient and son state they received Pneumococcal vaccine Diabetes mellitus, not insulin-dependent Hyperglycemia. On chemistry Hold glipizide as elderly patients tend to become hypoglycemic on this medication Patient is on steroids. We'll monitor Glucose fingersticks before meals and at bedtime Place patient on Sliding scale insulin Normocytic anemia Iron panel Stool occult Folate and B12 Pressure ulcer prevention Turn patient every 2 hours. Offload heels. 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 Consider evaluation with [facility] Patient is not on anticoagulation other than Lovenox for DVT prophylaxis Continue patient's home meds Advanced care planning was discussed with the patient and son. It is unclear what her wishes are at this time, she was explained the risks and benefits of r esuscitation, to which she replied, "then just let me .". She was once DNR but had revoked that status at another hospital. She was once deemed not to have capacity this year in January. Plan / VTE VTE Prophylaxis Ordered?: Yes PARISA CHAUDHARY MD Jul 31, 2018 23:25
[2018-08-01] MEDS ORDERED: ALPRAZolam 0.25 MG TAB PO SCH (00:02)
[2018-08-01 01:08] VITALS: BP 146/78
[2018-08-01] MEDS: IPRATROPIUM 0.5MG/ALBUTEROL 2.5MG INH SOL UD 3ML (DUONEB)(J7620) NEB SCH ×3 (02:12→11:32)
[2018-08-01] MEDS ORDERED: IPRATROPIUM 0.5MG/ALBUTEROL 2.5MG INH SOL UD 3ML (DUONEB)(J7620) NEB PRN ×2 (03:30→11:15)
[2018-08-01 03:54] LABS: FERRITIN 105 NG/ML (8-252); IRON (FE) 42 UG/DL (50-170); PERCENT SATURATION 14.7 % (13.2-45.0); TOTAL IRON BINDING CAPACITY 285 UG/DL (250-450)
[2018-08-01 06:00] VITALS: BP 140/72
[2018-08-01] MEDS: FUROSEMIDE 40 MG TAB PO SCH ×2 (08:14→17:40)
[2018-08-01] MEDS: PANTOPRAZOLE 40MG TAB (PROTONIX) PO SCH (08:14)
[2018-08-01] MEDS: ASPIRIN 81 MG ENTERIC TAB PO SCH (08:14)
[2018-08-01] MEDS: predniSONE 20 MG TAB PO SCH (08:14)
[2018-08-01] MEDS: ATORVASTATIN 10 MG TAB PO SCH (08:14)
[2018-08-01] MEDS: HumaLOG INSULIN (NovoLOG) PER UNIT SC SCH ×3 (08:15→17:41)
[2018-08-01] MEDS: ENOXAPARIN 30 MG/0.3 ML SYR (J1650) SC SCH (08:15)
--- NOTE | 2018-08-01 08:26 | REP ---
Chest two views HISTORY: Dyspnea Comparison: 07/26/2018 Patchy density is present in the lower lobes consistent with bibasilar atelectasis or infiltrates decreased on the right. The heart is normal in size. The pulmonary vasculature is normal in appearance. Degenerative changes present in the shoulders. The bony structure is osteopenic. IMPRESSION: Bibasilar atelectasis or infiltrates decreased on the right compared to the previous study. Electronically Signed by Jaden Bright MD 08/01/2018 08:18 A
[2018-08-01] MEDS ORDERED: methylPREDNISolone INJ 40 MG/1 ML VIAL (J2920) IV SCH (09:00)
[2018-08-01] MEDS ORDERED: FUROSEMIDE 40 MG TAB PO SCH (09:00)
[2018-08-01 09:33] LABS: FOLATE > 24.0 NG/ML (>5.4)
[2018-08-01 10:14] LABS: BASO % 0.2 % (0.0-1.0); HEMATOCRIT 28.4 % (36.0-47.0); HEMOGLOBIN 9.3 g/dl (12.0-15.5); LYMPH # 0.5 10^3/uL (1.5-4.5); LYMPH % 2.2 % (24.0-44.0); MEAN CORPUSCULAR HEMOGLOBIN 29.2 pg (27.0-33.0); MEAN CORPUSCULAR HGB CONC 32.7 g/dl (32.0-36.5); MONO # 0.4 10^3/uL (0.0-0.8); MONO % 1.7 % (0.0-5.0); PLATELET COUNT, AUTOMATED 423 10^3/uL (150-450); RED BLOOD COUNT 3.19 10^6/uL (4.00-5.40); WHITE BLOOD COUNT 20.9 10^3/uL (4.0-10.0)
--- NOTE | 2018-08-01 13:08 | IPNPDOC ---
Text Note Date of Service The patient was seen on 08/01/18. NOTE Subjective: Patient is a 83-year-old female with a PMHx of COPD on O2, Pulmonary HTN, CAD s/p CABG, Hx of [place], Chronic RBBB, Hx of TIA, Hx of Malaria, Hx of Dysentery, Anxiety, Hx of MRSA, Hx of Diverticulosis, Osteopenia and GERD who presented to the ER immediately after she was discharged because her son was no longer able to care for her at home. Patient was thought to be in COPD exacerbation; however this is her baseline level of functioning. Medications were adjusted back to her outpatient regimen. Patient was seen and examined at the bedside. Currently she notes that she is agitated that she is back in the hospital. Will look into placement options. Objective: Vitals (See below) General: Lying in bed, no acute distress, comfortable, Awake / Alert HEENT: NC, AT CVS: RRR, +S1S2 Lungs: Fair air entry b/l, no appreciable wheezing / rales / rhonchi Abdomen: Soft, ND, NT, +BSx4 Extremities: Trace LE Edema, - Calf tenderness Assessment and plan: Dyspnea - likely 2/2 chronic COPD and chronic compensated diastolic CHF - Patient has reported SOB that has been unchanged for years - Physical without any significant wheezing or any signs of significant fluid overload - CXR 07/31: Bibasilar atelectasis or infiltrates decreased on the right compared to the previous study. [Chronic COPD] - c/w inhaled therapy as ordered - c/w Prednisone at home dose [Chronic compensated diastolic CHF] - ECHO 07/16: hyperdynamic LV systolic function, G1 DD, MV poorly visualized - but possible vegetation, echodensity in LA, possibly thrombus - c/w Furosemide at home dose Recent treatment for HCAP - Imaging on prior admission consistent with new infiltrate - s/p Augmentin treatment Possible thrombus in LA / Vegetations at MV - Findings do not seem to be consistent with clinical picture - No evidence of endocarditis - Afebrile - Blood cultures 07/14: Negative at 5 day - Patient does not appear to be a surgical candidate - Cardiology had discussed with patient on prior admission; will differ on invasive CRISTA; appreciate cardiology's input DM2 - c/w ISS - s/p Glipizide - Initially son had mentioned that he didn't want to take her home with Long acting insulin and patient was started on Glipizide - Will likely need to resume Levemir; will continue to monitor for now Hx of LLE DVT - Not on anticoagulation at this time Hx of Pulmonary HTN Hx of TIA - c/w ASA Hx of Dysentery Normocytic anemia - Hg stable Hx of Nephrectomy Anxiety - c/w Alprazolam Dementia - On 01/26/18 patient had an evaluation with Psychiatry; deemed not to have the capacity to make decisions CAD s/p stent - c/w ASA GI prophylaxis - c/w Omeprazole DVT prophylaxis - c/w Lovenox Disposition: - Will need long-term placement VS,Fishbone, I+O VS, Fishbone, I+O Laboratory Tests 07/31/18 22:16 Red Blood Count 3.04 L, Mean Corpuscular Volume 91.1, Mean Corpuscular Hemoglobin 29.3, Mean Corpuscular Hemoglobin Concent 32.1, Red Cell Distribution Width 18.1 H, Calcium Level 8.4 L 08/01/18 10:00 Red Blood Count 3.19 L, Mean Corpuscular Volume 89.0, Mean Corpuscular Hemoglobin 29.2, Mean Corpuscular Hemoglobin Concent 32.7, Red Cell Distribution Width 18.0 H, Neutrophils (%) (Auto) 91.0 H, Lymphocytes (%) (Auto) 2.2 L, Monocytes (%) (Auto) 1.7, Eosinophils (%) (Auto) 0.0, Basophils (%) (Auto) 0.2, Neutrophils # (Auto) 19.0 H, Lymphocytes # (Auto) 0.5 L, Monocytes # (Auto) 0.4, Eosinophils # (Auto) 0.0, Basophils # (Auto) 0.0 Vital Signs Date Time Temp Pulse Resp B/P (MAP) Pulse Ox O2 Delivery O2 Flow Rate FiO2 08/01/18 08:27 4.0 08/01/18 06:00 97.6 98 21 140/72 (94) 100 Nasal Cannula I&O- Last 24 Hours up to 6 AM 08/01/18 06:00 Intake Total 0 ml Output Total 0 ml Balance 0 ml CODY GRIJALVA MD Aug 01, 2018 13:08
[2018-08-01 14:00] VITALS: BP 125/65
[2018-08-01 15:26] LABS: BLOOD UREA NITROGEN 18 MG/DL (7-18); GLUCOSE, FASTING 223 MG/DL (70-100)
[2018-08-01 15:27] LABS: CHLORIDE LEVEL 98 MEQ/L (98-107); CREATININE FOR GFR 0.93 MG/DL (0.55-1.30); GLOMERULAR FILTRATION RATE > 60.0 (>32); POTASSIUM SERUM 4.1 MEQ/L (3.5-5.1); SODIUM LEVEL 138 MEQ/L (136-145)
[2018-08-01 15:28] LABS: CALCIUM LEVEL 9.5 MG/DL (8.8-10.2); CARBON DIOXIDE LEVEL 26 MEQ/L (21-32)
[2018-08-01] MEDS: SYMBICORT 160/4.5MCG INHALER 6GM INH SCH (21:40)
[2018-08-01 22:00] VITALS: BP 137/70
[2018-08-02 06:00] VITALS: BP 141/69
[2018-08-02] MEDS: TIOTROPIUM INHALER/CAPSULE (SPIRIVA) INH SCH (07:47)
[2018-08-02] MEDS: SYMBICORT 160/4.5MCG INHALER 6GM INH SCH ×2 (07:47→20:22)
[2018-08-02] MEDS: ENOXAPARIN 30 MG/0.3 ML SYR (J1650) SC SCH (08:28)
[2018-08-02] MEDS: HumaLOG INSULIN (NovoLOG) PER UNIT SC SCH ×4 (08:32→22:11)
[2018-08-02] MEDS: FUROSEMIDE 40 MG TAB PO SCH ×2 (08:33→17:00)
[2018-08-02] MEDS: predniSONE 20 MG TAB PO SCH (08:33)
[2018-08-02] MEDS: ASPIRIN 81 MG ENTERIC TAB PO SCH (08:33)
[2018-08-02] MEDS: ATORVASTATIN 10 MG TAB PO SCH (08:33)
[2018-08-02] MEDS: PANTOPRAZOLE 40MG TAB (PROTONIX) PO SCH (08:33)
[2018-08-02] MEDS: ALPRAZolam 0.25 MG TAB PO PRN (11:02)
--- NOTE | 2018-08-02 11:46 | IPNPDOC ---
Text Note Date of Service The patient was seen on 08/02/18. NOTE Subjective: Patient is a 83-year-old female with a PMHx of COPD on O2, Pulmonary HTN, CAD s/p CABG, Hx of [place], Chronic RBBB, Hx of TIA, Hx of Malaria, Hx of Dysentery, Anxiety, Hx of MRSA, Hx of Diverticulosis, Osteopenia and GERD who presented to the ER immediately after she was discharged because her son was no longer able to care for her at home. Patient was thought to be in COPD exacerbation; however this is her baseline level of functioning. Medications were adjusted back to her outpatient regimen. Patient was seen and examined at the bedside. She notes some agitation, but denies any significant SOB, CP or palpitations. Objective: Vitals (See below) General: Lying in bed, no acute distress, comfortable, Awake / Alert HEENT: NC, AT CVS: RRR, +S1S2 Lungs: Fair air entry b/l, no auscultated evidence of wheezing / rales / rhonchi Abdomen: Soft, ND, NT Extremities: Trace LE Edema b/l appreciated, - Calf tenderness Assessment and plan: Dyspnea - likely 2/2 chronic COPD and chronic compensated diastolic CHF - Patient has reported SOB that has been unchanged for years - Physical without any significant wheezing or any signs of significant fluid overload - CXR 07/31: Bibasilar atelectasis or infiltrates decreased on the right compared to the previous study. [Chronic hypercapnic / hypoxic respiratory failure - likely 22/ Chronic COPD] - c/w inhaled therapy as ordered - c/w Prednisone at home dose [Chronic compensated diastolic CHF] - ECHO 07/16: hyperdynamic LV systolic function, G1 DD, MV poorly visualized - but possible vegetation, echodensity in LA, possibly thrombus - c/w Furosemide at home dose Recent treatment for HCAP - Imaging on prior admission consistent with new infiltrate - s/p Augmentin treatment Possible thrombus in LA / Vegetations at MV - Findings do not seem to be consistent with clinical picture - No evidence of endocarditis - Afebrile - Blood cultures 07/14: Negative at 5 day - Patient does not appear to be a surgical candidate - Cardiology had discussed with patient on prior admission; will differ on invasive CRISTA; appreciate cardiology's input DM2 - c/w ISS - s/p Glipizide - Will start Levemir 5 units QHS Hx of LLE DVT - Not on anticoagulation at this time Hx of Pulmonary HTN Hx of TIA - c/w ASA Hx of Dysentery Normocytic anemia - Hg stable Hx of Nephrectomy Anxiety - c/w Alprazolam Dementia - On 01/26/18 patient had an evaluation with Psychiatry; deemed not to have the capacity to make decisions CAD s/p stent - c/w ASA GI prophylaxis - c/w Omeprazole DVT prophylaxis - c/w Lovenox Disposition: - Will need [facility] placement VS,Fishbone, I+O VS, Fishbone, I+O Vital Signs Date Time Temp Pulse Resp B/P (MAP) Pulse Ox O2 Delivery O2 Flow Rate FiO2 08/02/18 08:50 4.0 08/02/18 06:00 97.5 87 19 141/69 (93) 99 Nasal Cannula I&O- Last 24 Hours up to 6 AM 08/02/18 05:59 Intake Total 1150 ml Output Total 800 ml Balance 350 ml CODY GRIJALVA MD Aug 02, 2018 11:46
[2018-08-02 14:00] VITALS: BP 143/73
[2018-08-02] MEDS ORDERED: LEVEMIR (INSULIN DETEMIR) 1 UNITS/0.01ML SC SCH (21:00)
[2018-08-02 22:00] VITALS: BP 117/58
[2018-08-03 06:00] VITALS: BP 137/62
[2018-08-03] MEDS: LEVALBUTEROL 1.25 MG/0.5 ML CONCENTRATE NEB INH PRN ×2 (07:26→19:37)
[2018-08-03] MEDS: TIOTROPIUM INHALER/CAPSULE (SPIRIVA) INH SCH (07:26)
[2018-08-03] MEDS: SYMBICORT 160/4.5MCG INHALER 6GM INH SCH ×2 (07:26→19:37)
[2018-08-03] MEDS: HumaLOG INSULIN (NovoLOG) PER UNIT SC SCH ×4 (07:30→20:09)
[2018-08-03 08:40] LABS: HEMATOCRIT 29.7 % (36.0-47.0); HEMOGLOBIN 9.5 g/dl (12.0-15.5); MEAN CORPUSCULAR HEMOGLOBIN 29.1 pg (27.0-33.0); MEAN CORPUSCULAR VOLUME 91.1 fl (80.0-96.0); PLATELET COUNT, AUTOMATED 429 10^3/uL (150-450); RED BLOOD COUNT 3.26 10^6/uL (4.00-5.40); WHITE BLOOD COUNT 13.4 10^3/uL (4.0-10.0)
[2018-08-03] MEDS: ATORVASTATIN 10 MG TAB PO SCH (09:00)
[2018-08-03] MEDS: predniSONE 20 MG TAB PO SCH (09:00)
[2018-08-03] MEDS: ENOXAPARIN 30 MG/0.3 ML SYR (J1650) SC SCH (09:00)
[2018-08-03] MEDS: FUROSEMIDE 40 MG TAB PO SCH ×2 (09:00→16:56)
[2018-08-03] MEDS: ASPIRIN 81 MG ENTERIC TAB PO SCH (09:00)
[2018-08-03] MEDS: PANTOPRAZOLE 40MG TAB (PROTONIX) PO SCH (09:00)
[2018-08-03 09:13] LABS: EOSINOPHILS 2 % (0-5); LYMPHOCYTES 13 % (16-52); MONOCYTES 3 % (0-8); NEUTROPHILS 79 % (35-75); PLATELET CLUMPS SMALL AMT; PLATELET ESTIMATE NORMAL (NORMAL)
[2018-08-03 09:17] LABS: BLOOD UREA NITROGEN 22 MG/DL (7-18); CALCIUM LEVEL 8.2 MG/DL (8.8-10.2); CARBON DIOXIDE LEVEL 33 MEQ/L (21-32); CHLORIDE LEVEL 95 MEQ/L (98-107); CREATININE FOR GFR 0.78 MG/DL (0.55-1.30); GLOMERULAR FILTRATION RATE > 60.0 (>32); GLUCOSE, FASTING 127 MG/DL (70-100); POTASSIUM SERUM 3.7 MEQ/L (3.5-5.1); SODIUM LEVEL 139 MEQ/L (136-145)
--- NOTE | 2018-08-03 11:49 | IPNPDOC ---
Text Note Date of Service The patient was seen on 08/03/18. NOTE Subjective: Patient is a 83-year-old female with a PMHx of COPD on O2, Pulmonary HTN, CAD s/p CABG, Hx of [place], Chronic RBBB, Hx of TIA, Hx of Malaria, Hx of Dysentery, Anxiety, Hx of MRSA, Hx of Diverticulosis, Osteopenia and GERD who presented to the ER immediately after she was discharged because her son was no longer able to care for her at home. Patient was thought to be in COPD exacerbation; however this is her baseline level of functioning. Medications were adjusted back to her outpatient regimen. Patient was seen and examined at the bedside. Patient notes some congestion and SOB this morning. She denies any CP or palpitations. She denies any N/V, abdominal pain, C/D, or dysuria. Objective: Vitals (See below) General: Lying in bed, no acute distress, comfortable, Awake / Alert HEENT: NC, AT CVS: RRR, +S1S2 Lungs: Fair air entry b/l, no appreciable wheezing / rhonchi / rales Abdomen: Soft, ND, NT Extremities: Trace LE Edema can still be appreciated in both legs, - Calf tenderness Assessment and plan: Chronic dyspnea - likely 2/2 chronic COPD; less likely 2/2 chronic compensated diastolic CHF - Patient has reported SOB that has been unchanged for years - Physical without any significant change - CXR 07/31: Bibasilar atelectasis or infiltrates decreased on the right compared to the previous study. [Chronic hypercapnic / hypoxic respiratory failure - likely 22/ Chronic COPD] - c/w inhaled therapy as ordered - c/w Prednisone at home dose [Chronic compensated diastolic CHF] - ECHO 07/16: hyperdynamic LV systolic function, G1 DD, MV poorly visualized - but possible vegetation, echodensity in LA, possibly thrombus - c/w Furosemide at home dose Recent treatment for HCAP - Imaging on prior admission consistent with new infiltrate - s/p Augmentin treatment Possible thrombus in LA / Vegetations at MV - Findings do not seem to be consistent with clinical picture - No evidence of endocarditis - Afebrile - Blood cultures 07/14: Negative at 5 day - Patient does not appear to be a surgical candidate - Cardiology had discussed with patient on prior admission; will differ on invasive CRISTA; appreciate cardiology's input DM2 with episodes of hypoglycemia - Will adjust timing of Levemir to be given in AM; instead of PM - c/w ISS - s/p Glipizide; c/w Levemir 5 units (changed timing) Hx of LLE DVT - Not on anticoagulation at this time Hx of Pulmonary HTN Hx of TIA - c/w ASA Hx of Dysentery Normocytic anemia - Hg stable Hx of Nephrectomy Anxiety - c/w Alprazolam Dementia - On 01/26/18 patient had an evaluation with Psychiatry; deemed not to have the capacity to make decisions CAD s/p stent - c/w ASA GI prophylaxis - c/w Omeprazole DVT prophylaxis - c/w Lovenox Disposition: - Will need [facility] placement VS,Fishbone, I+O VS, Fishbone, I+O Laboratory Tests 08/03/18 08:30 Red Blood Count 3.26 L, Mean Corpuscular Volume 91.1, Mean Corpuscular Hemoglobin 29.1, Mean Corpuscular Hemoglobin Concent 32.0, Red Cell Distribution Width 17.9 H, Calcium Level 8.2 L Vital Signs Date Time Temp Pulse Resp B/P (MAP) Pulse Ox O2 Delivery O2 Flow Rate FiO2 08/03/18 09:15 2.0 08/03/18 06:00 98.0 81 19 137/62 (87) 99 Nasal Cannula I&O- Last 24 Hours up to 6 AM 08/03/18 05:59 Intake Total 990 ml Output Total 1375 ml Balance -385 ml CODY GRIJALVA MD Aug 03, 2018 11:49
[2018-08-03] MEDS: LEVEMIR (INSULIN DETEMIR) 1 UNITS/0.01ML SC SCH (12:28)
[2018-08-03] MEDS: ALPRAZolam 0.25 MG TAB PO PRN (13:20)
[2018-08-03 14:00] VITALS: BP 133/63
[2018-08-03 22:00] VITALS: BP 148/64
[2018-08-04] MEDS: ALPRAZolam 0.25 MG TAB PO PRN (01:32)
[2018-08-04 06:00] VITALS: BP 140/70
[2018-08-04 06:10] LABS: HEMOGLOBIN 9.7 g/dl (12.0-15.5); MEAN CORPUSCULAR HGB CONC 32.3 g/dl (32.0-36.5); MEAN CORPUSCULAR VOLUME 89.6 fl (80.0-96.0); PLATELET COUNT, AUTOMATED 445 10^3/uL (150-450); RED BLOOD COUNT 3.35 10^6/uL (4.00-5.40); WHITE BLOOD COUNT 12.2 10^3/uL (4.0-10.0)
[2018-08-04] MEDS: LEVALBUTEROL 1.25 MG/0.5 ML CONCENTRATE NEB INH PRN ×3 (06:18→15:46)
[2018-08-04 06:27] LABS: ATYPICAL LYMPH 1 % (0-5); EOSINOPHILS 1 % (0-5); LYMPHOCYTES 9 % (16-52); METAMYELOCYTES 1 % (0-0); NEUTROPHILS 88 % (35-75)
[2018-08-04 06:28] LABS: ANISOCYTOSIS 1+; PLATELET CLUMPS SMALL AMT; PLATELET ESTIMATE INCREASED (NORMAL)
[2018-08-04 06:30] LABS: BLOOD UREA NITROGEN 19 MG/DL (7-18); CALCIUM LEVEL 8.8 MG/DL (8.8-10.2); CARBON DIOXIDE LEVEL 33 MEQ/L (21-32); CHLORIDE LEVEL 98 MEQ/L (98-107); CREATININE FOR GFR 0.52 MG/DL (0.55-1.30); GLOMERULAR FILTRATION RATE > 60.0 (>32); GLUCOSE, FASTING 96 MG/DL (70-100); POTASSIUM SERUM 3.3 MEQ/L (3.5-5.1); SODIUM LEVEL 140 MEQ/L (136-145)
[2018-08-04] MEDS: TIOTROPIUM INHALER/CAPSULE (SPIRIVA) INH SCH (07:27)
[2018-08-04] MEDS: SYMBICORT 160/4.5MCG INHALER 6GM INH SCH ×2 (07:27→22:11)
[2018-08-04] MEDS: HumaLOG INSULIN (NovoLOG) PER UNIT SC SCH ×4 (07:30→20:45)
[2018-08-04] MEDS ORDERED: POTASSIUM CHLORIDE 10 MEQ SR TABLET PO ONE (07:30)
[2018-08-04] MEDS: ENOXAPARIN 30 MG/0.3 ML SYR (J1650) SC SCH (08:31)
[2018-08-04] MEDS: LEVEMIR (INSULIN DETEMIR) 1 UNITS/0.01ML SC SCH (08:59)
[2018-08-04] MEDS: predniSONE 20 MG TAB PO SCH (09:00)
[2018-08-04] MEDS: ASPIRIN 81 MG ENTERIC TAB PO SCH (09:00)
[2018-08-04] MEDS: PANTOPRAZOLE 40MG TAB (PROTONIX) PO SCH (09:00)
[2018-08-04] MEDS: ATORVASTATIN 10 MG TAB PO SCH (09:00)
[2018-08-04] MEDS: FUROSEMIDE 40 MG TAB PO SCH ×2 (09:00→15:00)
--- NOTE | 2018-08-04 11:01 | IPNPDOC ---
Text Note Date of Service The patient was seen on 08/04/18. NOTE Subjective: Patient is a 83-year-old female with a PMHx of COPD on O2, Pulmonary HTN, CAD s/p CABG, Hx of [place], Chronic RBBB, Hx of TIA, Hx of Malaria, Hx of Dysentery, Anxiety, Hx of MRSA, Hx of Diverticulosis, Osteopenia and GERD who presented to the ER immediately after she was discharged because her son was no longer able to care for her at home. Patient was thought to be in COPD exacerbation; however this is her baseline level of functioning. Medications were adjusted back to her outpatient regimen. Patient was seen and examined at the bedside. Patient notes some congestion and not feeling well. She was tearful this morning. Reports persistent SOB. Denies any CP or palpitations. Objective: Vitals (See below) General: Lying in bed, no acute distress, comfortable, Awake / Alert HEENT: NC, AT CVS: RRR, +S1S2 Lungs: Fair air entry b/l, no auscultated rhonchi / rales / wheezing Abdomen: Soft, ND, NT Extremities: Trace LE Edema at b/l LE, - Calf tenderness Assessment and plan: Chronic dyspnea - likely 2/2 chronic COPD; less likely 2/2 chronic compensated diastolic CHF - Patient has reported SOB that has been unchanged for years - remains unchanged - Physical without any significant change - CXR 07/31: Bibasilar atelectasis or infiltrates decreased on the right compared to the previous study. [Chronic hypercapnic / hypoxic respiratory failure - likely 22/ Chronic COPD] - c/w inhaled therapy as ordered - c/w Prednisone at home dose [Chronic compensated diastolic CHF] - ECHO 07/16: hyperdynamic LV systolic function, G1 DD, MV poorly visualized - but possible vegetation, echodensity in LA, possibly thrombus - c/w Furosemide at home dose Recent treatment for HCAP - Imaging on prior admission consistent with new infiltrate - s/p Augmentin treatment Possible thrombus in LA / Vegetations at MV - Findings do not seem to be consistent with clinical picture - No evidence of endocarditis / Afebrile - Blood cultures 07/14: Negative - Patient does not appear to be a surgical candidate - Cardiology had discussed with patient on prior admission; will differ on inva sive CRISTA; appreciate cardiology's input DM2 with episodes of hypoglycemia - c/w ISS - s/p Glipizide; c/w Levemir 5 units qAM Hx of LLE DVT - Not on anticoagulation at this time Hx of Pulmonary HTN Hx of TIA - c/w ASA Hx of Dysentery Normocytic anemia - Hg stable Hx of Nephrectomy Anxiety - c/w Alprazolam Dementia - On 01/26/18 patient had an evaluation with Psychiatry; deemed not to have the capacity to make decisions CAD s/p stent - c/w ASA GI prophylaxis - c/w Omeprazole DVT prophylaxis - c/w Lovenox Disposition: - 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
[2018-08-04 14:00] VITALS: BP 137/77
[2018-08-04] MEDS ORDERED: CALCIUM CARBONATE 500 MG CHEW U/D PO ONE (21:00)
[2018-08-04 22:00] VITALS: BP 139/78
[2018-08-05 06:00] VITALS: BP 143/68
[2018-08-05] MEDS: HumaLOG INSULIN (NovoLOG) PER UNIT SC SCH ×4 (07:30→22:20)
[2018-08-05] MEDS: ENOXAPARIN 30 MG/0.3 ML SYR (J1650) SC SCH (07:51)
[2018-08-05] MEDS: TIOTROPIUM INHALER/CAPSULE (SPIRIVA) INH SCH (08:17)
[2018-08-05] MEDS: LEVALBUTEROL 1.25 MG/0.5 ML CONCENTRATE NEB INH PRN ×4 (08:17→20:50)
[2018-08-05] MEDS: SYMBICORT 160/4.5MCG INHALER 6GM INH SCH ×2 (08:18→20:50)
[2018-08-05] MEDS: FUROSEMIDE 40 MG TAB PO SCH ×2 (08:42→16:20)
[2018-08-05] MEDS: PANTOPRAZOLE 40MG TAB (PROTONIX) PO SCH (08:42)
[2018-08-05] MEDS: LEVEMIR (INSULIN DETEMIR) 1 UNITS/0.01ML SC SCH (08:42)
[2018-08-05] MEDS: ATORVASTATIN 10 MG TAB PO SCH (08:42)
[2018-08-05] MEDS: predniSONE 20 MG TAB PO SCH (08:43)
[2018-08-05] MEDS: ASPIRIN 81 MG ENTERIC TAB PO SCH (08:43)
[2018-08-05] MEDS ORDERED: GI COCKTAIL 50ML BTL(HYOSCYAMINE/MAALOX/LIDOCAINE VISCOUS)(1:3:1) PO PRN (09:15)
[2018-08-05] MEDS ORDERED: MAGIC MOUTHWASH SUSPENSION BTL PO PRN (09:45)
--- NOTE | 2018-08-05 10:03 | IPNPDOC ---
Text Note Date of Service The patient was seen on 08/05/18. NOTE Subjective: Patient is a 83-year-old female with a PMHx of COPD on O2, Pulmonary HTN, CAD s/p CABG, Hx of SC, Chronic RBBB, Hx of TIA, Hx of Malaria, Hx of Dysentery, Anxiety, Hx of MRSA, Hx of Diverticulosis, Osteopenia and GERD who presented to the ER immediately after she was discharged because her son was no longer able to care for her at home. Patient was thought to be in COPD exacerbation; however this is her baseline level of functioning. Medications were adjusted back to her outpatient regimen. Patient was seen and examined at the bedside. Patient notes that her breathing is doing fine. Still reports a cough. Has experienced some discomfort of her epigastrium yesterday. Denies any chest pain or palpitations. Notes that everything looks fuzzy. Denies any diarrhea or discomfort with urination. Objective: Vitals (See below) General: Lying in bed, no acute distress, comfortable, Awake / Alert HEENT: NC, AT CVS: RRR, +S1S2 Lungs: Fair air entry b/l, auscultations without any evidence of rhonchi, rales or wheezing Abdomen: Soft, ND, NT Extremities: There still appears to be trace lower extremity edema at bilateral lower extremities, - Calf tenderness Assessment and plan: Chronic dyspnea - likely 2/2 chronic COPD; less likely 2/2 chronic compensated diastolic CHF - Patient has noted shortness of breath intermittently throughout hospital course, however this has remained unchanged for several years - CXR 07/31: Bibasilar atelectasis or infiltrates decreased on the right compared to the previous study. [Chronic hypercapnic / hypoxic respiratory failure - likely 22/ Chronic COPD] - c/w inhaled therapy as ordered - c/w Prednisone at home dose [Chronic compensated diastolic CHF] - ECHO 07/16: hyperdynamic LV systolic function, G1 DD, MV poorly visualized - but possible vegetation, echodensity in LA, possibly thrombus - c/w Furosemide at home dose; patient has refused taking medication several times Recent treatment for HCAP - s/p Augmentin treatment Possible thrombus in LA / Vegetations at MV - Findings do not seem to be consistent with clinical picture - No evidence of endocarditis / Afebrile - Blood cultures 07/14: Negative - Patient does not appear to be a surgical candidate - Cardiology had discussed with patient on prior admission; will differ on invasive CRISTA; appreciate cardiology's input DM2 with episodes of hypoglycemia - c/w ISS - s/p Glipizide; c/w Levemir 5 units qAM Hx of LLE DVT - Not on anticoagulation at this time Hx of Pulmonary HTN Hx of TIA - c/w ASA Hx of Dysentery Normocytic anemia - Hg stable Hx of Nephrectomy Anxiety - c/w Alprazolam Dementia - On 01/26/18 patient had an evaluation with Psychiatry; deemed not to have the capacity to make decisions CAD s/p stent - c/w ASA GI prophylaxis - c/w Omeprazole DVT prophylaxis - c/w Lovenox Disposition: - 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
[2018-08-05 14:00] VITALS: BP 159/73
--- NOTE | 2018-08-05 15:39 | ECGEPIP ---
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
[2018-08-05 22:00] VITALS: BP 121/62
[2018-08-05] MEDS: ALPRAZolam 0.25 MG TAB PO PRN (23:25)
[2018-08-06] MEDS: LEVALBUTEROL 1.25 MG/0.5 ML CONCENTRATE NEB INH PRN ×5 (00:04→20:02)
[2018-08-06 06:00] VITALS: BP 136/96
[2018-08-06] MEDS: SYMBICORT 160/4.5MCG INHALER 6GM INH SCH ×2 (08:04→20:03)
[2018-08-06] MEDS: TIOTROPIUM INHALER/CAPSULE (SPIRIVA) INH SCH (08:04)
[2018-08-06] MEDS: ENOXAPARIN 30 MG/0.3 ML SYR (J1650) SC SCH (08:38)
[2018-08-06] MEDS: ASPIRIN 81 MG ENTERIC TAB PO SCH (08:43)
[2018-08-06] MEDS: predniSONE 20 MG TAB PO SCH (08:43)
[2018-08-06] MEDS: FUROSEMIDE 40 MG TAB PO SCH ×2 (08:43→17:01)
[2018-08-06] MEDS: ATORVASTATIN 10 MG TAB PO SCH (08:43)
[2018-08-06] MEDS: PANTOPRAZOLE 40MG TAB (PROTONIX) PO SCH (08:43)
[2018-08-06] MEDS: LEVEMIR (INSULIN DETEMIR) 1 UNITS/0.01ML SC SCH (08:43)
[2018-08-06] MEDS: HumaLOG INSULIN (NovoLOG) PER UNIT SC SCH ×4 (08:44→20:16)
[2018-08-06 09:49] LABS: BASO % 0.3 % (0.0-1.0); EOS % 0.3 % (0.0-3.0); HEMATOCRIT 29.2 % (36.0-47.0); HEMOGLOBIN 9.3 g/dl (12.0-15.5); LYMPH # 0.8 10^3/uL (1.5-4.5); LYMPH % 6.5 % (24.0-44.0); MEAN CORPUSCULAR HEMOGLOBIN 29.2 pg (27.0-33.0); MEAN CORPUSCULAR HGB CONC 31.8 g/dl (32.0-36.5); MEAN CORPUSCULAR VOLUME 91.8 fl (80.0-96.0); MONO # 0.6 10^3/uL (0.0-0.8); NEUTROPHILS # 10.6 10^3/uL (1.8-7.7); NEUTROPHILS % 85.8 % (36.0-66.0); PLATELET COUNT, AUTOMATED 431 10^3/uL (150-450); RED BLOOD COUNT 3.18 10^6/uL (4.00-5.40); WHITE BLOOD COUNT 12.3 10^3/uL (4.0-10.0)
[2018-08-06 10:16] LABS: BLOOD UREA NITROGEN 12 MG/DL (7-18); CALCIUM LEVEL 8.7 MG/DL (8.8-10.2); CARBON DIOXIDE LEVEL 32 MEQ/L (21-32); CHLORIDE LEVEL 101 MEQ/L (98-107); CREATININE FOR GFR 0.62 MG/DL (0.55-1.30); GLOMERULAR FILTRATION RATE > 60.0 (>32); GLUCOSE, FASTING 148 MG/DL (70-100); POTASSIUM SERUM 3.8 MEQ/L (3.5-5.1); SODIUM LEVEL 141 MEQ/L (136-145)
--- NOTE | 2018-08-06 12:21 | IPNPDOC ---
Text Note Date of Service The patient was seen on 08/06/18. NOTE Subjective: Patient is a 83-year-old female with a PMHx of COPD on O2, Pulmonary HTN, CAD s/p CABG, Hx of [place], Chronic RBBB, Hx of TIA, Hx of Malaria, Hx of Dysentery, Anxiety, Hx of MRSA, Hx of Diverticulosis, Osteopenia and GERD who presented to the ER immediately after she was discharged because her son was no longer able to care for her at home. Patient was thought to be in COPD exacerbation; however this is her baseline level of functioning. Medications were adjusted back to her outpatient regimen. Patient was seen and examined at the bedside. Patient hasn't been feeling well. She notes some SOB but no coughing. Denies any CP or palpitations. She notes that she ambulates within the room. Objective: Vitals (See below) General: Lying in bed, no acute distress, comfortable, Awake / Alert HEENT: NC, AT CVS: RRR, +S1S2 Lungs: Fair air entry b/l, it does not appear to be any auscultated evidence of rhonchi, rales or wheezing Abdomen: Soft, ND, NT Extremities: There is mild/1+ pitting edema bilateral lower extremity, - Calf tenderness Assessment and plan: Chronic dyspnea - likely 2/2 chronic COPD; less likely 2/2 chronic compensated diastolic CHF - Patient has noted shortness of breath intermittently throughout hospital course, however this has remained unchanged for several years\ - Physical does reveal some increased edema of her lower extremities - CXR 07/31: Bibasilar atelectasis or infiltrates decreased on the right compared to the previous study. [Chronic hypercapnic / hypoxic respiratory failure - likely 22/ Chronic COPD] - c/w inhaled therapy as ordered - c/w Prednisone at home dose [Chronic compensated diastolic CHF] - ECHO 07/16: hyperdynamic LV systolic function, G1 DD, MV poorly visualized - but possible vegetation, echodensity in LA, possibly thrombus - c/w Furosemide at home dose; patient had been refusing to take furosemide despite having lower extremity swelling Recent treatment for HCAP - s/p Augmentin treatment Possible thrombus in LA / Vegetations at MV - Findings do not seem to be consistent with clinical picture - No evidence of endocarditis / Afebrile - Blood cultures 07/14: Negative - Patient does not appear to be a surgical candidate - Cardiology had discussed with patient on prior admission; will differ on invasive CRISTA; appreciate cardiology's input DM2 with episodes of hypoglycemia - c/w ISS - s/p Glipizide; c/w Levemir 5 units qAM Hx of LLE DVT - Not on anticoagulation at this time Hx of Pulmonary HTN Hx of TIA - c/w ASA Hx of Dysentery Normocytic anemia - Hg stable Hx of Nephrectomy Anxiety - c/w Alprazolam Dementia - On 01/26/18 patient had an evaluation with Psychiatry; deemed not to have the capacity to make decisions CAD s/p stent - c/w ASA GI prophylaxis - c/w Omeprazole DVT prophylaxis - c/w Lovenox Disposition: - 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 VS,Fishbone, I+O VS, Fishbone, I+O Laboratory Tests 08/06/18 09:24 Calcium Level 8.7 L 08/06/18 09:25 Red Blood Count 3.18 L, Mean Corpuscular Volume 91.8, Mean Corpuscular Hemoglobin 29.2, Mean Corpuscular Hemoglobin Concent 31.8 L, Red Cell D istribution Width 17.9 H, Neutrophils (%) (Auto) 85.8 H, Lymphocytes (%) (Auto) 6.5 L, Monocytes (%) (Auto) 5.0, Eosinophils (%) (Auto) 0.3, Basophils (%) (Auto) 0.3, Neutrophils # (Auto) 10.6 H, Lymphocytes # (Auto) 0.8 L, Monocytes # (Auto) 0.6, Eosinophils # (Auto) 0.0, Basophils # (Auto) 0.0 Vital Signs Date Time Temp Pulse Resp B/P (MAP) Pulse Ox O2 Delivery O2 Flow Rate FiO2 08/06/18 08:45 2.0 08/06/18 06:00 98.6 105 20 136/96 (109) 98 Nasal Cannula I&O- Last 24 Hours up to 6 AM 08/06/18 06:00 Intake Total 1470 ml Output Total 575 ml Balance 895 ml CODY GRIJALVA MD Aug 06, 2018 12:21
[2018-08-06] MEDS: ALPRAZolam 0.25 MG TAB PO PRN (14:04)
[2018-08-06 22:00] VITALS: BP 110/60
[2018-08-07] MEDS: LEVALBUTEROL 1.25 MG/0.5 ML CONCENTRATE NEB INH PRN ×3 (02:29→11:27)
[2018-08-07 06:00] VITALS: BP 144/63
[2018-08-07] MEDS: SYMBICORT 160/4.5MCG INHALER 6GM INH SCH ×2 (07:17→20:28)
[2018-08-07] MEDS: TIOTROPIUM INHALER/CAPSULE (SPIRIVA) INH SCH (07:17)
[2018-08-07] MEDS: ENOXAPARIN 30 MG/0.3 ML SYR (J1650) SC SCH (08:39)
[2018-08-07 08:46] LABS: BASO % 0.2 % (0.0-1.0); EOS % 0.3 % (0.0-3.0); HEMATOCRIT 28.2 % (36.0-47.0); HEMOGLOBIN 9.1 g/dl (12.0-15.5); LYMPH # 0.9 10^3/uL (1.5-4.5); LYMPH % 6.8 % (24.0-44.0); MEAN CORPUSCULAR HGB CONC 32.3 g/dl (32.0-36.5); MEAN CORPUSCULAR VOLUME 89.8 fl (80.0-96.0); MONO # 0.9 10^3/uL (0.0-0.8); MONO % 6.5 % (0.0-5.0); NEUTROPHILS # 11.2 10^3/uL (1.8-7.7); NEUTROPHILS % 84.2 % (36.0-66.0); PLATELET COUNT, AUTOMATED 438 10^3/uL (150-450); RED BLOOD COUNT 3.14 10^6/uL (4.00-5.40); WHITE BLOOD COUNT 13.2 10^3/uL (4.0-10.0)
[2018-08-07] MEDS: ATORVASTATIN 10 MG TAB PO SCH (08:46)
[2018-08-07] MEDS: FUROSEMIDE 40 MG TAB PO SCH ×2 (08:46→17:01)
[2018-08-07] MEDS: predniSONE 20 MG TAB PO SCH (08:46)
[2018-08-07] MEDS: HumaLOG INSULIN (NovoLOG) PER UNIT SC SCH ×4 (08:46→20:57)
[2018-08-07] MEDS: PANTOPRAZOLE 40MG TAB (PROTONIX) PO SCH (08:46)
[2018-08-07] MEDS: ASPIRIN 81 MG ENTERIC TAB PO SCH (08:46)
[2018-08-07] MEDS: LEVEMIR (INSULIN DETEMIR) 1 UNITS/0.01ML SC SCH (08:47)
[2018-08-07 09:08] LABS: BLOOD UREA NITROGEN 15 MG/DL (7-18); CHLORIDE LEVEL 97 MEQ/L (98-107); CREATININE FOR GFR 0.63 MG/DL (0.55-1.30); GLOMERULAR FILTRATION RATE > 60.0 (>32); GLUCOSE, FASTING 210 MG/DL (70-100); POTASSIUM SERUM 3.4 MEQ/L (3.5-5.1); SODIUM LEVEL 137 MEQ/L (136-145)
[2018-08-07 09:09] LABS: CALCIUM LEVEL 8.5 MG/DL (8.8-10.2); CARBON DIOXIDE LEVEL 32 MEQ/L (21-32)
[2018-08-07 14:00] VITALS: BP 110/64
--- NOTE | 2018-08-07 14:23 | IPNPDOC ---
Subjective Date Seen The patient was seen on 08/07/18. Subjective Chief Complaint/HPI The patient is a 83-year-old female admitted with a reason for visit of Ambulatory Dysfunction,Copd Exacerbation,Sob. Events since last encounter Patient seen and examined at the bedside. No acute overnight events noted. Objective Physical Examination General Exam: Positive: Alert, Cooperative, No Acute Distress Eye Exam: Negative: Sclera icteric ENT Exam: Positive: Atraumatic, Mucous membr. moist/pink Chest Exam: Positive: Diminished; Negative: Normal air movement, Wheezing Heart Exam: Positive: Rate Normal, Normal S1, Normal S2 Abdomen Exam: Positive: Soft; Negative: Tenderness Extremity Exam: Negative: Tenderness Neuro Exam: Positive: Normal Speech, Sensation Intact Assessment /Plan Plan/VTE VTE Prophylaxis Ordered?: Yes Plan End Stage COPD Cont serial nebulizer therapy, Perforomist, Mucinex, Pulmicort Cont baseline dose of Prednisone 20mg daily Respiratory status at baseline Leukocytosis Likely 2/2 Steroids Will cont to monitor Diastolic congestive heart failure (CHF) Cont Lasix as ordered Continue to monitor input and output. Coronary artery disease, status post carotid stent Cont aspirin, atorvastatin. History of pulmonary hypertension, Cor pulmonale 2/2 COPD Hx of LLE DVT Not on anticoagulation at this time History of transient ischemic attack On aspirin and statin. Diabetes Mellitus Cont Levemir, ISS Anxiety On Xanax prn GERD Cont PPI History of dementia PFS on board for placement, as the patient's son states that he can not take care of the patient Deep vein thrombosis (DVT) prophylaxis Lovenox SC Dispo--PFS on board--pending placement. VS, I&O, 24H, Fishbone Vital Signs/I&O Vital Signs Date Time Temp Pulse Resp B/P (MAP) Pulse Ox O2 Delivery O2 Flow Rate FiO2 08/07/18 09:18 2.0 08/07/18 06:00 97.4 106 22 144/63 (90) 94 Nasal Cannula I&O- Last 24 Hours up to 6 AM 08/07/18 05:59 Intake Total 1258 ml Output Total 0 ml Balance 1258 ml Laboratory Data 24H LABS Laboratory Tests 2 08/06/18 16:57: Bedside Glucose (Misc Panel) 363H 08/06/18 20:14: Bedside Glucose (Misc Panel) 124H 08/07/18 07:42: Bedside Glucose (Misc Panel) 149H 08/07/18 08:34: Immature Granulocyte % (Auto) 2.0, White Blood Count 13.2H, Red Blood Count 3.14L, Hemoglobin 9.1L, Hematocrit 28.2L, Mean Corpuscular Volume 89.8, Mean Corpuscular Hemoglobin 29.0, Mean Corpuscular Hemoglobin Concent 32.3, Red Cell Distribution Width 17.9H, Platelet Count 438, Neutrophils (%) (Auto) 84.2H, Lymphocytes (%) (Auto) 6.8L, Monocytes (%) (Auto) 6.5H, Eosinophils (%) (Auto) 0.3, Basophils (%) (Auto) 0.2, Neutrophils # (Auto) 11.2H, Lymphocytes # (Auto) 0.9L, Monocytes # (Auto) 0.9H, Eosinophils # (Auto) 0.0, Basophils # (Auto) 0.0, Nucleated Red Blood Cells % (auto) 0.0, Anion Gap 8, Glomerular Filtration Rate > 60.0, Blood Urea Nitrogen 15, Creatinine 0.63, Sodium Level 137, Potassium Level 3.4L, Chloride Level 97L, Carbon Dioxide Level 32, Calcium Level 8.5L 08/07/18 11:24: Bedside Glucose (Misc Panel) 164H CBC/BMP Laboratory Tests 08/07/18 08:34 Red Blood Count 3.14 L, Mean Corpuscular Volume 89.8, Mean Corpuscular Hemoglobin 29.0, Mean Corpuscular Hemoglobin Concent 32.3, Red Cell Distribution Width 17.9 H, Neutrophils (%) (Auto) 84.2 H, Lymphocytes (%) (Auto) 6.8 L, Monocytes (%) (Auto) 6.5 H, Eosinophils (%) (Auto) 0.3, Basophils (%) (Auto) 0.2, Neutrophils # (Auto) 11.2 H, Lymphocytes # (Auto) 0.9 L, Monocytes # (Auto) 0.9 H, Eosinophils # (Auto) 0.0, Basophils # (Auto) 0.0, Calcium Level 8.5 L Microbiology Microbiology 08/03/18 Stool Occult Blood (SHAHEED) - Final, Complete HAYLIE CHARLTON MD Aug 07, 2018 14:23
[2018-08-07] MEDS: ALPRAZolam 0.25 MG TAB PO PRN (19:18)
[2018-08-07 22:00] VITALS: BP 126/56
[2018-08-08] MEDS: LEVALBUTEROL 1.25 MG/0.5 ML CONCENTRATE NEB INH PRN ×4 (03:04→16:20)
[2018-08-08 06:00] VITALS: BP 140/63
[2018-08-08] MEDS: guaiFENesin ER 600 MG TAB PO PRN (06:28)
[2018-08-08] MEDS: HumaLOG INSULIN (NovoLOG) PER UNIT SC SCH ×4 (07:30→21:00)
[2018-08-08] MEDS: TIOTROPIUM INHALER/CAPSULE (SPIRIVA) INH SCH (08:12)
[2018-08-08] MEDS: SYMBICORT 160/4.5MCG INHALER 6GM INH SCH ×2 (08:12→21:02)
[2018-08-08] MEDS: LEVEMIR (INSULIN DETEMIR) 1 UNITS/0.01ML SC SCH (09:00)
[2018-08-08] MEDS: ASPIRIN 81 MG ENTERIC TAB PO SCH ×2 (09:00→10:03)
[2018-08-08] MEDS: predniSONE 20 MG TAB PO SCH ×2 (09:00→10:01)
[2018-08-08] MEDS: PANTOPRAZOLE 40MG TAB (PROTONIX) PO SCH (09:00)
[2018-08-08] MEDS: ENOXAPARIN 30 MG/0.3 ML SYR (J1650) SC SCH (09:00)
[2018-08-08] MEDS: ATORVASTATIN 10 MG TAB PO SCH ×2 (09:00→10:01)
[2018-08-08] MEDS: FUROSEMIDE 40 MG TAB PO SCH ×2 (10:01→17:00)
--- NOTE | 2018-08-08 13:07 | IPNPDOC ---
Subjective Date Seen The patient was seen on 08/08/18. Subjective Chief Complaint/HPI The patient is a 83-year-old female admitted with a reason for visit of Ambulatory Dysfunction,Copd Exacerbation,Sob. Events since last encounter Patient seen and examined at the bedside. No acute overnight events noted. Objective Physical Examination General Exam: Positive: Alert, Cooperative, No Acute Distress Eye Exam: Negative: Sclera icteric ENT Exam: Positive: Atraumatic, Mucous membr. moist/pink Chest Exam: Positive: Diminished; Negative: Normal air movement, Wheezing Heart Exam: Positive: Rate Normal, Normal S1, Normal S2 Abdomen Exam: Positive: Soft; Negative: Tenderness Extremity Exam: Negative: Tenderness Neuro Exam: Positive: Normal Speech, Sensation Intact Assessment /Plan Plan/VTE VTE Prophylaxis Ordered?: Yes Plan End Stage COPD Cont serial nebulizer therapy, Perforomist, Mucinex, Pulmicort Cont baseline dose of Prednisone 20mg daily Respiratory status at baseline Leukocytosis Likely 2/2 Steroids Will cont to monitor Diastolic congestive heart failure (CHF) Cont Lasix as ordered Continue to monitor input and output. Coronary artery disease, status post carotid stent Cont aspirin, atorvastatin. History of pulmonary hypertension, Cor pulmonale 2/2 COPD Hx of LLE DVT Not on anticoagulation at this time History of transient ischemic attack On aspirin and statin. Diabetes Mellitus Cont Levemir, ISS Anxiety On Xanax prn GERD Cont PPI History of dementia PFS on board for placement, as the patient's son states that he can not take care of the patient Deep vein thrombosis (DVT) prophylaxis Lovenox SC Dispo--PFS on board--pending placement. VS, I&O, 24H, Fishbone Vital Signs/I&O Vital Signs Date Time Temp Pulse Resp B/P (MAP) Pulse Ox O2 Delivery O2 Flow Rate FiO2 08/08/18 09:00 2.0 08/08/18 06:00 98.6 95 20 140/63 (88) 95 Nasal Cannula I&O- Last 24 Hours up to 6 AM 08/08/18 05:59 Intake Total 650 ml Output Total 1400 ml Balance -750 ml Laboratory Data 24H LABS Laboratory Tests 2 08/07/18 16:52: Bedside Glucose (Misc Panel) 361H 08/07/18 20:17: Bedside Glucose (Misc Panel) 125H 08/08/18 06:59: Bedside Glucose (Misc Panel) 79L 08/08/18 12:03: Bedside Glucose (Misc Panel) 130H Microbiology Microbiology 08/03/18 Stool Occult Blood (SHAHEED) - Final, Complete HAYLIE CHARLTON MD Aug 08, 2018 13:07
--- NOTE | 2018-08-08 13:27 | ECGEPIP ---
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
[2018-08-08 14:00] VITALS: BP 121/64
[2018-08-08] MEDS: ACETAMINOPHEN TAB 650MG DOSE (2X325MG) PO PRN (17:14)
[2018-08-08 22:00] VITALS: BP 135/60
[2018-08-09] MEDS: LEVALBUTEROL 1.25 MG/0.5 ML CONCENTRATE NEB INH PRN ×4 (01:20→21:32)
[2018-08-09] MEDS: ALPRAZolam 0.25 MG TAB PO PRN ×2 (03:13→15:02)
[2018-08-09 06:00] VITALS: BP 135/61
[2018-08-09 06:04] LABS: HEMATOCRIT 26.6 % (36.0-47.0); HEMOGLOBIN 8.3 g/dl (12.0-15.5); MEAN CORPUSCULAR HEMOGLOBIN 28.8 pg (27.0-33.0); MEAN CORPUSCULAR HGB CONC 31.2 g/dl (32.0-36.5); MEAN CORPUSCULAR VOLUME 92.4 fl (80.0-96.0); PLATELET COUNT, AUTOMATED 414 10^3/uL (150-450); RED BLOOD COUNT 2.88 10^6/uL (4.00-5.40); WHITE BLOOD COUNT 8.6 10^3/uL (4.0-10.0)
[2018-08-09 06:25] LABS: BLOOD UREA NITROGEN 13 MG/DL (7-18); CALCIUM LEVEL 8.2 MG/DL (8.8-10.2); CARBON DIOXIDE LEVEL 32 MEQ/L (21-32); CHLORIDE LEVEL 101 MEQ/L (98-107); CREATININE FOR GFR 0.47 MG/DL (0.55-1.30); GLOMERULAR FILTRATION RATE > 60.0 (>32); GLUCOSE, FASTING 118 MG/DL (70-100); POTASSIUM SERUM 3.3 MEQ/L (3.5-5.1); SODIUM LEVEL 141 MEQ/L (136-145)
[2018-08-09] MEDS: SYMBICORT 160/4.5MCG INHALER 6GM INH SCH ×2 (07:13→20:46)
[2018-08-09] MEDS: TIOTROPIUM INHALER/CAPSULE (SPIRIVA) INH SCH (07:13)
[2018-08-09] MEDS ORDERED: POTASSIUM CHLORIDE 10 MEQ SR TABLET PO ONE (08:15)
[2018-08-09] MEDS: PANTOPRAZOLE 40MG TAB (PROTONIX) PO SCH (08:54)
[2018-08-09] MEDS: ENOXAPARIN 30 MG/0.3 ML SYR (J1650) SC SCH ×2 (09:00→09:23)
[2018-08-09] MEDS: ATORVASTATIN 10 MG TAB PO SCH (09:22)
[2018-08-09] MEDS: HumaLOG INSULIN (NovoLOG) PER UNIT SC SCH ×4 (09:22→21:33)
[2018-08-09] MEDS: FUROSEMIDE 40 MG TAB PO SCH ×2 (09:22→18:39)
[2018-08-09] MEDS: ASPIRIN 81 MG ENTERIC TAB PO SCH (09:22)
[2018-08-09] MEDS: LEVEMIR (INSULIN DETEMIR) 1 UNITS/0.01ML SC SCH (09:23)
[2018-08-09] MEDS: predniSONE 20 MG TAB PO SCH (09:23)
--- NOTE | 2018-08-09 11:37 | IPNPDOC ---
Subjective Date Seen The patient was seen on 08/09/18. Subjective Chief Complaint/HPI The patient is a 83-year-old female admitted with a reason for visit of Ambulatory Dysfunction,Copd Exacerbation,Sob. Events since last encounter Patient seen and examined at the bedside. No acute overnight events noted. Objective Physical Examination General Exam: Positive: Alert, Cooperative, No Acute Distress Eye Exam: Negative: Sclera icteric ENT Exam: Positive: Atraumatic, Mucous membr. moist/pink Chest Exam: Positive: Diminished; Negative: Normal air movement, Wheezing Heart Exam: Positive: Rate Normal, Normal S1, Normal S2 Abdomen Exam: Positive: Soft; Negative: Tenderness Extremity Exam: Positive: Swelling (1+ pitting edema in the lower extremities b/l); Negative: Tenderness Neuro Exam: Positive: Normal Speech Assessment /Plan Plan/VTE VTE Prophylaxis Ordered?: Yes Plan End Stage COPD Cont serial nebulizer therapy, Perforomist, Mucinex, Pulmicort Cont baseline dose of Prednisone 20mg daily Respiratory status at baseline Leukocytosis Likely 2/2 Steroids Will cont to monitor Diastolic congestive heart failure (CHF) Cont Lasix as ordered Continue to monitor input and output. Coronary artery disease, status post carotid stent Cont aspirin, atorvastatin. History of pulmonary hypertension, Cor pulmonale 2/2 COPD Hx of LLE DVT Not on anticoagulation at this time History of transient ischemic attack On aspirin and statin. Diabetes Mellitus Cont Levemir, ISS Anxiety On Xanax prn GERD Cont PPI History of dementia PFS on board for placement, as the patient's son states that he can not take care of the patient Deep vein thrombosis (DVT) prophylaxis Lovenox SC Dispo--PFS on board--pending placement. VS, I&O, 24H, Deepakbone Vital Signs/I&O Vital Signs Date Time Temp Pulse Resp B/P (MAP) Pulse Ox O2 Delivery O2 Flow Rate FiO2 08/09/18 06:00 99.1 95 20 135/61 (85) 97 Nasal Cannula 2.0 I&O- Last 24 Hours up to 6 AM 08/09/18 05:59 Intake Total 630 ml Output Total 900 ml Balance -270 ml Laboratory Data 24H LABS Laboratory Tests 2 08/08/18 12:03: Bedside Glucose (Misc Panel) 130H 08/08/18 16:32: Bedside Glucose (Misc Panel) 98 08/08/18 20:20: Bedside Glucose (Misc Panel) 161H 08/09/18 05:57: Nucleated Red Blood Cells % (auto) 0.0, Anion Gap 8, Glomerular Filtration Rate > 60.0, Blood Urea Nitrogen 13, Creatinine 0.47L, Sodium Level 141, Potassium Level 3.3L, Chloride Level 101, Carbon Dioxide Level 32, Calcium Level 8.2L 08/09/18 11:30: Bedside Glucose (Misc Panel) 67L CBC/BMP Laboratory Tests 08/09/18 05:57 Red Blood Count 2.88 L, Mean Corpuscular Volume 92.4, Mean Corpuscular Hemoglobin 28.8, Mean Corpuscular Hemoglobin Concent 31.2 L, Red Cell Distribution Width 17.8 H, Calcium Level 8.2 L Microbiology Microbiology 08/03/18 Stool Occult Blood (SHAHEED) - Final, Complete HAYLIE CHARLTON MD Aug 09, 2018 11:37
[2018-08-09] MEDS: METOCLOPRAMIDE 5 MG TAB PO PRN (15:02)
[2018-08-09 22:00] VITALS: BP 121/61
[2018-08-10 06:00] VITALS: BP 155/68
[2018-08-10] MEDS: HumaLOG INSULIN (NovoLOG) PER UNIT SC SCH ×4 (07:30→20:59)
[2018-08-10] MEDS: SYMBICORT 160/4.5MCG INHALER 6GM INH SCH ×2 (07:34→20:39)
[2018-08-10] MEDS: TIOTROPIUM INHALER/CAPSULE (SPIRIVA) INH SCH (07:34)
[2018-08-10] MEDS: LEVALBUTEROL 1.25 MG/0.5 ML CONCENTRATE NEB INH PRN ×2 (07:37→13:51)
[2018-08-10] MEDS: LEVEMIR (INSULIN DETEMIR) 1 UNITS/0.01ML SC SCH (08:58)
[2018-08-10] MEDS: ATORVASTATIN 10 MG TAB PO SCH ×2 (08:59→09:00)
[2018-08-10] MEDS: predniSONE 20 MG TAB PO SCH ×2 (08:59→09:00)
[2018-08-10] MEDS: FUROSEMIDE 40 MG TAB PO SCH ×3 (08:59→17:00)
[2018-08-10] MEDS: ASPIRIN 81 MG ENTERIC TAB PO SCH ×2 (08:59→09:00)
[2018-08-10] MEDS: ENOXAPARIN 30 MG/0.3 ML SYR (J1650) SC SCH (08:59)
[2018-08-10] MEDS: PANTOPRAZOLE 40MG TAB (PROTONIX) PO SCH (09:00)
[2018-08-10] MEDS: guaiFENesin ER 600 MG TAB PO PRN (10:20)
--- NOTE | 2018-08-10 12:54 | IPNPDOC ---
Subjective Date Seen The patient was seen on 08/10/18. Subjective Chief Complaint/HPI The patient is a 83-year-old female admitted with a reason for visit of Ambulatory Dysfunction,Copd Exacerbation,Sob. Events since last encounter Patient seen and examined at the bedside. Denies any acute changes in her respiratory status at this time. Objective Physical Examination General Exam: Positive: Alert, Cooperative, No Acute Distress Eye Exam: Negative: Sclera icteric ENT Exam: Positive: Atraumatic, Mucous membr. moist/pink Chest Exam: Positive: Diminished; Negative: Normal air movement, Wheezing Heart Exam: Positive: Rate Normal, Normal S1, Normal S2 Abdomen Exam: Positive: Soft; Negative: Tenderness Extremity Exam: Positive: Swelling (1+ pitting edema in the lower extremities b/l); Negative: Tenderness Neuro Exam: Positive: Normal Speech Assessment /Plan Plan/VTE VTE Prophylaxis Ordered?: Yes Plan End Stage COPD Cont serial nebulizer therapy, Perforomist, Mucinex, Pulmicort Cont baseline dose of Prednisone 20mg daily Respiratory status at baseline Leukocytosis Likely 2/2 Steroids Will cont to monitor Diastolic congestive heart failure (CHF) Cont Lasix as ordered Continue to monitor input and output. Coronary artery disease, status post carotid stent Cont aspirin, atorvastatin. History of pulmonary hypertension, Cor pulmonale 2/2 COPD Hx of LLE DVT Not on anticoagulation at this time History of transient ischemic attack On aspirin and statin. Diabetes Mellitus Cont Levemir, ISS Anxiety On Xanax prn GERD Cont PPI History of dementia PFS on board for placement, as the patient's son states that he can not take care of the patient Deep vein thrombosis (DVT) prophylaxis Lovenox SC Dispo--PFS on board--pending placement. VS, I&O, 24H, Fishbone Vital Signs/I&O Vital Signs Date Time Temp Pulse Resp B/P (MAP) Pulse Ox O2 Delivery O2 Flow Rate FiO2 08/10/18 06:00 98.1 83 20 155/68 (97) 96 Nasal Cannula 08/09/18 22:00 2.0 I&O- Last 24 Hours up to 6 AM 08/10/18 06:00 Intake Total 748 ml Output Total 0 ml Balance 748 ml Laboratory Data 24H LABS Laboratory Tests 2 08/09/18 16:52: Bedside Glucose (Misc Panel) 216H 08/09/18 20:17: Bedside Glucose (Misc Panel) 274H 08/10/18 05:21: Bedside Glucose (Misc Panel) 124H 08/10/18 11:23: Bedside Glucose (Misc Panel) 159H Microbiology Microbiology 08/03/18 Stool Occult Blood (SHAHEED) - Final, Complete HAYLIE CHARLTON MD Aug 10, 2018 12:54
[2018-08-10] MEDS: ALPRAZolam 0.25 MG TAB PO PRN (15:36)
[2018-08-10 16:00] VITALS: BP 164/64
[2018-08-10] MEDS: ACETAMINOPHEN TAB 650MG DOSE (2X325MG) PO PRN (16:06)
[2018-08-10] MEDS: BACTRIM 160MG/800MG DS TAB PO SCH (20:59)
[2018-08-10 22:00] VITALS: BP 124/65
[2018-08-11] MEDS: LEVALBUTEROL 1.25 MG/0.5 ML CONCENTRATE NEB INH PRN ×4 (02:29→23:26)
[2018-08-11 06:00] VITALS: BP 143/72
[2018-08-11] MEDS: HumaLOG INSULIN (NovoLOG) PER UNIT SC SCH ×4 (07:30→21:43)
[2018-08-11] MEDS: TIOTROPIUM INHALER/CAPSULE (SPIRIVA) INH SCH (07:37)
[2018-08-11] MEDS: SYMBICORT 160/4.5MCG INHALER 6GM INH SCH ×2 (07:37→20:00)
[2018-08-11] MEDS: predniSONE 20 MG TAB PO SCH (08:05)
[2018-08-11] MEDS: PANTOPRAZOLE 40MG TAB (PROTONIX) PO SCH (08:05)
[2018-08-11] MEDS: ATORVASTATIN 10 MG TAB PO SCH (08:05)
[2018-08-11] MEDS: ASPIRIN 81 MG ENTERIC TAB PO SCH (08:05)
[2018-08-11] MEDS: FUROSEMIDE 40 MG TAB PO SCH ×2 (09:00→16:57)
[2018-08-11] MEDS: ENOXAPARIN 30 MG/0.3 ML SYR (J1650) SC SCH (09:00)
[2018-08-11] MEDS: BACTRIM 160MG/800MG DS TAB PO SCH ×2 (09:00→21:44)
[2018-08-11] MEDS: LEVEMIR (INSULIN DETEMIR) 1 UNITS/0.01ML SC SCH (09:00)
[2018-08-11 10:01] LABS: HEMATOCRIT 26.2 % (36.0-47.0); HEMOGLOBIN 8.3 g/dl (12.0-15.5); MEAN CORPUSCULAR HEMOGLOBIN 29.1 pg (27.0-33.0); MEAN CORPUSCULAR HGB CONC 31.7 g/dl (32.0-36.5); MEAN CORPUSCULAR VOLUME 91.9 fl (80.0-96.0); PLATELET COUNT, AUTOMATED 424 10^3/uL (150-450); RED BLOOD COUNT 2.85 10^6/uL (4.00-5.40); WHITE BLOOD COUNT 8.5 10^3/uL (4.0-10.0)
[2018-08-11 10:36] LABS: BLOOD UREA NITROGEN 12 MG/DL (7-18); CALCIUM LEVEL 8.3 MG/DL (8.8-10.2); CARBON DIOXIDE LEVEL 29 MEQ/L (21-32); CHLORIDE LEVEL 104 MEQ/L (98-107); CREATININE FOR GFR 0.64 MG/DL (0.55-1.30); GLOMERULAR FILTRATION RATE > 60.0 (>32); GLUCOSE, FASTING 145 MG/DL (70-100); POTASSIUM SERUM 3.5 MEQ/L (3.5-5.1); SODIUM LEVEL 144 MEQ/L (136-145)
[2018-08-11] MEDS: ALPRAZolam 0.25 MG TAB PO PRN (11:33)
--- NOTE | 2018-08-11 12:18 | IPNPDOC ---
Subjective Date Seen The patient was seen on 08/11/18. Subjective Chief Complaint/HPI The patient is a 83-year-old female admitted with a reason for visit of Ambulatory Dysfunction,Copd Exacerbation,Sob. Events since last encounter Patient seen and examined at the bedside. Noted to have increased urinary fr equency/urgency and a fever of 100.3 yesterday. She has been started on Bactrim. No fevers since then. No acute complaints this morning. Objective Physical Examination General Exam: Positive: Alert, Cooperative, No Acute Distress Eye Exam: Negative: Sclera icteric ENT Exam: Positive: Atraumatic, Mucous membr. moist/pink Chest Exam: Positive: Diminished; Negative: Normal air movement, Wheezing Heart Exam: Positive: Rate Normal, Normal S1, Normal S2 Abdomen Exam: Positive: Soft; Negative: Tenderness Extremity Exam: Positive: Swelling (1+ pitting edema in the lower extremities b/l); Negative: Tenderness Neuro Exam: Positive: Normal Speech Assessment /Plan Plan/VTE VTE Prophylaxis Ordered?: Yes Plan End Stage COPD Cont serial nebulizer therapy, Perforomist, Mucinex, Pulmicort Cont baseline dose of Prednisone 20mg daily Respiratory status at baseline Leukocytosis, resolved Likely 2/2 Steroids Will cont to monitor Urinary Tract Infection Patient with increased frequency/urgency and fever spike on 08/10 Started on Bactrim Diastolic congestive heart failure (CHF) Cont Lasix as ordered Continue to monitor input and output. Coronary artery disease, status post carotid stent Cont aspirin, atorvastatin. History of pulmonary hypertension, Cor pulmonale 2/2 COPD Hx of LLE DVT Not on anticoagulation at this time History of transient ischemic attack On aspirin and statin. Diabetes Mellitus Cont Levemir, ISS Anxiety On Xanax prn GERD Cont PPI History of dementia PFS on board for placement, as the patient's son states that he can not take care of the patient Deep vein thrombosis (DVT) prophylaxis Lovenox SC Dispo--PFS on board--pending placement. VS, I&O, 24H, Fishbone Vital Signs/I&O Vital Signs Date Time Temp Pulse Resp B/P (MAP) Pulse Ox O2 Delivery O2 Flow Rate FiO2 08/11/18 10:50 2.0 08/11/18 06:00 97.9 86 21 143/72 (95) 100 Nasal Cannula I&O- Last 24 Hours up to 6 AM 08/11/18 06:00 Intake Total 540 ml Output Total 0 ml Balance 540 ml Laboratory Data 24H LABS Laboratory Tests 2 08/10/18 16:53: Urine Color YELLOW, Urine Appearance CLEAR, Urine pH 7.0, Urine Specific [place] 1.015, Urine Protein NEGATIVE, Urine Glucose (UA) NEGATIVE, Urine Ketones NEGATIVE, Urine Blood NEGATIVE, Urine Nitrite NEGATIVE, Urine Bilirubin N EGATIVE, Urine Urobilinogen 0.2, Urine Leukocyte Esterase NEGATIVE, Urine WBC (Auto) 1, Urine RBC (Auto) 1, Urine Hyaline Casts (Auto) 6, Urine Bacteria (Auto) NEGATIVE, Urine Squamous Epithelial Cells 0, Urine Sperm (Auto) , Bedside Glucose (Misc Panel) 216H 08/10/18 20:31: Bedside Glucose (Misc Panel) 183H 08/11/18 06:21: Bedside Glucose (Misc Panel) 103 08/11/18 09:53: Nucleated Red Blood Cells % (auto) 0.0, Anion Gap 11, Glomerular Filtration Rate > 60.0, Blood Urea Nitrogen 12, Creatinine 0.64, Sodium Level 144, Potassium Level 3.5, Chloride Level 104, Carbon Dioxide Level 29, Calcium Level 8.3L 08/11/18 11:51: Bedside Glucose (Misc Panel) 314H CBC/BMP Laboratory Tests 08/11/18 09:53 Red Blood Count 2.85 L, Mean Corpuscular Volume 91.9, Mean Corpuscular Hemoglobin 29.1, Mean Corpuscular Hemoglobin Concent 31.7 L, Red Cell Distribution Width 17.6 H, Calcium Level 8.3 L Microbiology Microbiology 08/03/18 Stool Occult Blood (SHAHEED) - Final, Complete HAYLIE CHARLTON MD Aug 11, 2018 12:18
[2018-08-11 14:00] VITALS: BP_SYST 168; BP_SYST 170; BP_DIAS 75; BP_DIAS 80
[2018-08-11 22:00] VITALS: BP 130/60
[2018-08-12] MEDS: LEVALBUTEROL 1.25 MG/0.5 ML CONCENTRATE NEB INH PRN (05:55)
[2018-08-12 06:00] VITALS: BP 125/60
[2018-08-12] MEDS: TIOTROPIUM INHALER/CAPSULE (SPIRIVA) INH SCH (07:20)
[2018-08-12] MEDS: SYMBICORT 160/4.5MCG INHALER 6GM INH SCH ×2 (07:27→20:16)
[2018-08-12] MEDS: HumaLOG INSULIN (NovoLOG) PER UNIT SC SCH ×4 (07:30→20:49)
[2018-08-12 08:09] LABS: HEMOGLOBIN 8.8 g/dl (12.0-15.5); MEAN CORPUSCULAR HEMOGLOBIN 28.8 pg (27.0-33.0); MEAN CORPUSCULAR HGB CONC 31.4 g/dl (32.0-36.5); MEAN CORPUSCULAR VOLUME 91.5 fl (80.0-96.0); PLATELET COUNT, AUTOMATED 459 10^3/uL (150-450); RED BLOOD COUNT 3.06 10^6/uL (4.00-5.40); WHITE BLOOD COUNT 10.2 10^3/uL (4.0-10.0)
[2018-08-12] MEDS: predniSONE 20 MG TAB PO SCH (08:19)
[2018-08-12] MEDS: BACTRIM 160MG/800MG DS TAB PO SCH ×2 (08:19→19:58)
[2018-08-12] MEDS: ALPRAZolam 0.25 MG TAB PO PRN ×2 (08:19→20:19)
[2018-08-12] MEDS: ASPIRIN 81 MG ENTERIC TAB PO SCH (08:34)
[2018-08-12] MEDS: ATORVASTATIN 10 MG TAB PO SCH (08:35)
[2018-08-12] MEDS: LEVEMIR (INSULIN DETEMIR) 1 UNITS/0.01ML SC SCH (08:35)
[2018-08-12] MEDS: FUROSEMIDE 40 MG TAB PO SCH ×2 (08:35→17:00)
[2018-08-12] MEDS: ENOXAPARIN 30 MG/0.3 ML SYR (J1650) SC SCH (08:35)
[2018-08-12] MEDS: PANTOPRAZOLE 40MG TAB (PROTONIX) PO SCH (08:35)
--- NOTE | 2018-08-12 13:18 | IPNPDOC ---
Subjective Date Seen The patient was seen on 08/12/18. Subjective Chief Complaint/HPI The patient is a 83-year-old female admitted with a reason for visit of Ambulatory Dysfunction,Copd Exacerbation,Sob. Events since last encounter Patient seen and examined at the bedside. No acute overnight events noted. Objective Physical Examination General Exam: Positive: Alert, Cooperative, No Acute Distress Eye Exam: Negative: Sclera icteric ENT Exam: Positive: Atraumatic, Mucous membr. moist/pink Chest Exam: Positive: Diminished; Negative: Normal air movement, Wheezing Heart Exam: Positive: Rate Normal, Normal S1, Normal S2 Abdomen Exam: Positive: Soft; Negative: Tenderness Extremity Exam: Positive: Swelling (1+ pitting edema in the lower extremities b/l); Negative: Tenderness Neuro Exam: Positive: Normal Speech Assessment /Plan Plan/VTE VTE Prophylaxis Ordered?: Yes Plan End Stage COPD Cont serial nebulizer therapy, Perforomist, Mucinex, Pulmicort Cont baseline dose of Prednisone 20mg daily Respiratory status at baseline Leukocytosis, resolved Likely 2/2 Steroids Will cont to monitor Urinary Tract Infection Patient with increased frequency/urgency and fever spike on 08/10 Started on Bactrim Diastolic congestive heart failure (CHF) Cont Lasix as ordered Continue to monitor input and output. Coronary artery disease, status post carotid stent Cont aspirin, atorvastatin. History of pulmonary hypertension, Cor pulmonale 2/2 COPD Hx of LLE DVT Not on anticoagulation at this time History of transient ischemic attack On aspirin and statin. Diabetes Mellitus Cont Levemir, ISS Anxiety On Xanax prn GERD Cont PPI History of dementia PFS on board for placement, as the patient's son states that he can not take care of the patient Deep vein thrombosis (DVT) prophylaxis Lovenox SC Dispo--PFS on board--pending placement. VS, I&O, 24H, Fishbone Vital Signs/I&O Vital Signs Date Time Temp Pulse Resp B/P (MAP) Pulse Ox O2 Delivery O2 Flow Rate FiO2 08/12/18 06:00 98.9 103 21 125/60 (81) 100 Nasal Cannula 2.0 I&O- Last 24 Hours up to 6 AM 08/12/18 06:00 Intake Total 1290 ml Output Total 600 ml Balance 690 ml Laboratory Data 24H LABS Laboratory Tests 2 08/11/18 16:36: Bedside Glucose (Misc Panel) 324H 08/11/18 21:03: Bedside Glucose (Misc Panel) 151H 08/12/18 06:28: Bedside Glucose (Misc Panel) 112H 08/12/18 08:00: Nucleated Red Blood Cells % (auto) 0.0 08/12/18 11:27: Bedside Glucose (Misc Panel) 498H CBC/BMP Laboratory Tests 08/12/18 08:00 Red Blood Count 3.06 L, Mean Corpuscular Volume 91.5, Mean Corpuscular Hemoglobin 28.8, Mean Corpuscular Hemoglobin Concent 31.4 L, Red Cell Distribution Width 17.4 H Microbiology Microbiology 08/03/18 Stool Occult Blood (SHAHEED) - Final, Complete HAYLIE CHARLTON MD Aug 12, 2018 13:18
[2018-08-12 14:00] VITALS: BP 145/65
[2018-08-12 22:00] VITALS: BP 122/64
[2018-08-13] MEDS: LEVALBUTEROL 1.25 MG/0.5 ML CONCENTRATE NEB INH PRN ×2 (01:30→20:12)
[2018-08-13 06:00] VITALS: BP 129/59
[2018-08-13] MEDS: HumaLOG INSULIN (NovoLOG) PER UNIT SC SCH ×4 (07:30→21:00)
[2018-08-13] MEDS: SYMBICORT 160/4.5MCG INHALER 6GM INH SCH ×2 (07:32→20:12)
[2018-08-13] MEDS: TIOTROPIUM INHALER/CAPSULE (SPIRIVA) INH SCH (07:37)
[2018-08-13] MEDS: FUROSEMIDE 40 MG TAB PO SCH ×3 (09:00→17:00)
[2018-08-13] MEDS: LEVEMIR (INSULIN DETEMIR) 1 UNITS/0.01ML SC SCH (09:00)
[2018-08-13] MEDS: ATORVASTATIN 10 MG TAB PO SCH (09:35)
[2018-08-13] MEDS: ASPIRIN 81 MG ENTERIC TAB PO SCH (09:35)
[2018-08-13] MEDS: PANTOPRAZOLE 40MG TAB (PROTONIX) PO SCH (09:35)
[2018-08-13] MEDS: predniSONE 20 MG TAB PO SCH (09:36)
[2018-08-13] MEDS: BACTRIM 160MG/800MG DS TAB PO SCH ×2 (09:36→21:25)
--- NOTE | 2018-08-13 10:31 | IPNPDOC ---
Subjective Date Seen The patient was seen on 08/13/18. Subjective Chief Complaint/HPI The patient is a 83-year-old female admitted with a reason for visit of Ambulatory Dysfunction,Copd Exacerbation,Sob. Events since last encounter Patient seen and examined at bedside. No acute overnight events noted. Objective Physical Examination General Exam: Positive: Alert, Cooperative, No Acute Distress Eye Exam: Negative: Sclera icteric ENT Exam: Positive: Atraumatic, Mucous membr. moist/pink Chest Exam: Positive: Diminished; Negative: Normal air movement, Wheezing Heart Exam: Positive: Rate Normal, Normal S1, Normal S2 Abdomen Exam: Positive: Soft; Negative: Tenderness Extremity Exam: Positive: Swelling (1+ pitting edema in the lower extremities b/l); Negative: Tenderness Neuro Exam: Positive: Normal Speech Assessment /Plan Plan/VTE VTE Prophylaxis Ordered?: Yes Plan End Stage COPD Cont serial nebulizer therapy, Perforomist, Mucinex, Pulmicort Cont baseline dose of Prednisone 20mg daily Respiratory status at baseline Leukocytosis, resolved Likely 2/2 Steroids Will cont to monitor Urinary Tract Infection Patient with increased frequency/urgency and fever spike on 08/10 Started on Bactrim Diastolic congestive heart failure (CHF) Cont Lasix as ordered Continue to monitor input and output. Coronary artery disease, status post carotid stent Cont aspirin, atorvastatin. History of pulmonary hypertension, Cor pulmonale 2/2 COPD Hx of LLE DVT Not on anticoagulation at this time History of transient ischemic attack On aspirin and statin. Diabetes Mellitus Cont Levemir, ISS Anxiety On Xanax prn GERD Cont PPI History of dementia PFS on board for placement, as the patient's son states that he can not take care of the patient Deep vein thrombosis (DVT) prophylaxis Lovenox SC Dispo--PFS on board--pending placement. VS, I&O, 24H, Deepakbone Vital Signs/I&O Vital Signs Date Time Temp Pulse Resp B/P (MAP) Pulse Ox O2 Delivery O2 Flow Rate FiO2 08/13/18 06:00 98.3 89 20 129/59 (82) 99 Nasal Cannula 2.0 I&O- Last 24 Hours up to 6 AM 08/13/18 05:59 Intake Total 830 ml Output Total 730 ml Balance 100 ml Laboratory Data 24H LABS Laboratory Tests 2 08/12/18 11:27: Bedside Glucose (Misc Panel) 498H 08/12/18 17:01: Bedside Glucose (Misc Panel) 109 08/12/18 20:03: Bedside Glucose (Misc Panel) 196H Microbiology Microbiology 08/03/18 Stool Occult Blood (HSAHEED) - Final, Complete HAYLIE CHARLTON MD Aug 13, 2018 10:31
[2018-08-13] MEDS: ALPRAZolam 0.25 MG TAB PO PRN (10:53)
[2018-08-13 14:00] VITALS: BP 162/66
[2018-08-13 22:00] VITALS: BP 119/59
[2018-08-14] MEDS: LEVALBUTEROL 1.25 MG/0.5 ML CONCENTRATE NEB INH PRN ×4 (01:10→23:28)
[2018-08-14 06:00] VITALS: BP 147/67
[2018-08-14] MEDS: SYMBICORT 160/4.5MCG INHALER 6GM INH SCH ×2 (07:43→19:37)
[2018-08-14] MEDS: TIOTROPIUM INHALER/CAPSULE (SPIRIVA) INH SCH (07:43)
[2018-08-14] MEDS: HumaLOG INSULIN (NovoLOG) PER UNIT SC SCH ×4 (07:50→19:58)
[2018-08-14] MEDS: LEVEMIR (INSULIN DETEMIR) 1 UNITS/0.01ML SC SCH (09:29)
[2018-08-14] MEDS: FUROSEMIDE 40 MG TAB PO SCH ×2 (09:34→17:10)
[2018-08-14] MEDS: ALPRAZolam 0.25 MG TAB PO PRN (09:34)
[2018-08-14] MEDS: ASPIRIN 81 MG ENTERIC TAB PO SCH (09:36)
[2018-08-14] MEDS: BACTRIM 160MG/800MG DS TAB PO SCH ×2 (09:36→20:18)
[2018-08-14] MEDS: PANTOPRAZOLE 40MG TAB (PROTONIX) PO SCH (09:36)
[2018-08-14] MEDS: ATORVASTATIN 10 MG TAB PO SCH (09:36)
[2018-08-14] MEDS: predniSONE 20 MG TAB PO SCH (09:36)
[2018-08-14 10:01] LABS: HEMATOCRIT 27.9 % (36.0-47.0); HEMOGLOBIN 8.8 g/dl (12.0-15.5); MEAN CORPUSCULAR HEMOGLOBIN 29.1 pg (27.0-33.0); MEAN CORPUSCULAR HGB CONC 31.5 g/dl (32.0-36.5); MEAN CORPUSCULAR VOLUME 92.4 fl (80.0-96.0); PLATELET COUNT, AUTOMATED 437 10^3/uL (150-450); RED BLOOD COUNT 3.02 10^6/uL (4.00-5.40); WHITE BLOOD COUNT 11.4 10^3/uL (4.0-10.0)
[2018-08-14 10:36] LABS: BLOOD UREA NITROGEN 16 MG/DL (7-18); CALCIUM LEVEL 9.1 MG/DL (8.8-10.2); CARBON DIOXIDE LEVEL 30 MEQ/L (21-32); CHLORIDE LEVEL 103 MEQ/L (98-107); CREATININE FOR GFR 0.83 MG/DL (0.55-1.30); GLOMERULAR FILTRATION RATE > 60.0 (>32); GLUCOSE, FASTING 126 MG/DL (70-100); POTASSIUM SERUM 4.1 MEQ/L (3.5-5.1); SODIUM LEVEL 141 MEQ/L (136-145)
--- NOTE | 2018-08-14 13:48 | IPNPDOC ---
Text Note Date of Service The patient was seen on 08/14/18. NOTE Subjective: Patient is a 83-year-old female with a PMHx of COPD on O2, Pulmonary HTN, CAD s/p CABG, Hx of [place], Chronic RBBB, Hx of TIA, Hx of Malaria, Hx of Dysentery, Anxiety, Hx of MRSA, Hx of Diverticulosis, Osteopenia and GERD who presented to the ER immediately after she was discharged because her son was no longer able to care for her at home. Patient was thought to be in COPD exacerbation; however this is her baseline level of functioning. Medications were adjusted back to her outpatient regimen. Patient was seen and examined at the bedside. She notes that she feels bad. Denies any CP or palpitations. Still notes some SOB. Denies any productive sputum. Denies any diarrhea or dysuria. Objective: Vitals (See below) General: Lying in bed, no acute distress, comfortable, Awake / Alert HEENT: NC, AT CVS: RRR, +S1S2 Lungs: Fair air entry b/l, no appreciable rhonchi, wheezing or rales Abdomen: Soft, ND, NT Extremities: 1+ pitting edema bilateral lower extremity, - Calf tenderness Assessment and plan: Chronic dyspnea - likely 2/2 chronic COPD; less likely 2/2 chronic compensated diastolic CHF - Patient has noted shortness of breath intermittently throughout hospital course, however this has remained unchanged for several years - Physical with evidence of mild fluid overload at LE - CXR 07/31: Bibasilar atelectasis or infiltrates decreased on the right compared to the previous study. [Chronic hypercapnic / hypoxic respiratory failure - likely 22/ Chronic COPD] - c/w inhaled therapy as ordered - c/w Prednisone at home dose [Chronic compensated diastolic CHF] - ECHO 07/16: hyperdynamic LV systolic function, G1 DD, MV poorly visualized - but possible vegetation, echodensity in LA, possibly thrombus - c/w Furosemide at home dose; - Advised patient of importance of continuing Lasix Urinary Tract Infection - Patient was noted to have increased frequency/urgency and had a fever of 100.3F on 08/10 - c/w Bactrim Recent treatment for HCAP - s/p Augmentin treatment DM2 with episodes of hypoglycemia - c/w ISS and Levemir 5 units Hx of LLE DVT - Not on anticoagulation at this time Hx of Pulmonary HTN Hx of TIA - c/w ASA Hx of Dysentery Normocytic anemia - Hg stable Hx of Nephrectomy Anxiety - c/w Alprazolam Dementia - On 01/26/18 patient had an evaluation with Psychiatry; deemed not to have the capacity to make decisions CAD s/p stent - c/w ASA GI prophylaxis - c/w Omeprazole DVT prophylaxis - c/w Lovenox Disposition: - Will need division traffic superintendent placement VS,Fishbone, I+O VS, Fishbone, I+O Laboratory Tests 08/14/18 09:49 Red Blood Count 3.02 L, Mean Corpuscular Volume 92.4, Mean Corpuscular Hemoglobin 29.1, Mean Corpuscular Hemoglobin Concent 31.5 L, Red Cell Di stribution Width 17.6 H, Calcium Level 9.1 Vital Signs Date Time Temp Pulse Resp B/P (MAP) Pulse Ox O2 Delivery O2 Flow Rate FiO2 08/14/18 09:00 2.0 08/14/18 09:00 105 24 95 Nasal Cannula 08/14/18 06:00 97.8 147/67 (93) I&O- Last 24 Hours up to 6 AM 08/14/18 05:59 Intake Total 1250 ml Output Total 750 ml Balance 500 ml CODY GRIJALVA MD Aug 14, 2018 13:48
[2018-08-14 14:00] VITALS: BP 134/61
[2018-08-14 22:00] VITALS: BP 103/55
[2018-08-15 06:00] VITALS: BP 144/81
[2018-08-15] MEDS: HumaLOG INSULIN (NovoLOG) PER UNIT SC SCH ×4 (07:15→21:46)
[2018-08-15] MEDS: LEVALBUTEROL 1.25 MG/0.5 ML CONCENTRATE NEB INH PRN ×3 (08:36→21:26)
[2018-08-15] MEDS: SYMBICORT 160/4.5MCG INHALER 6GM INH SCH ×2 (08:37→21:26)
[2018-08-15] MEDS: TIOTROPIUM INHALER/CAPSULE (SPIRIVA) INH SCH (08:37)
[2018-08-15] MEDS: ATORVASTATIN 10 MG TAB PO SCH (08:59)
[2018-08-15] MEDS: FUROSEMIDE 40 MG TAB PO SCH ×2 (08:59→16:47)
[2018-08-15] MEDS: ALPRAZolam 0.25 MG TAB PO PRN ×2 (08:59→21:46)
[2018-08-15] MEDS: PANTOPRAZOLE 40MG TAB (PROTONIX) PO SCH (08:59)
[2018-08-15] MEDS: LEVEMIR (INSULIN DETEMIR) 1 UNITS/0.01ML SC SCH (08:59)
[2018-08-15] MEDS: BACTRIM 160MG/800MG DS TAB PO SCH ×2 (08:59→21:46)
[2018-08-15] MEDS: ASPIRIN 81 MG ENTERIC TAB PO SCH (08:59)
[2018-08-15] MEDS: predniSONE 20 MG TAB PO SCH (08:59)
[2018-08-15 09:15] LABS: HEMATOCRIT 27.8 % (36.0-47.0); HEMOGLOBIN 8.8 g/dl (12.0-15.5); MEAN CORPUSCULAR HEMOGLOBIN 28.9 pg (27.0-33.0); MEAN CORPUSCULAR HGB CONC 31.7 g/dl (32.0-36.5); MEAN CORPUSCULAR VOLUME 91.4 fl (80.0-96.0); PLATELET COUNT, AUTOMATED 455 10^3/uL (150-450); RED BLOOD COUNT 3.04 10^6/uL (4.00-5.40); WHITE BLOOD COUNT 11.9 10^3/uL (4.0-10.0)
[2018-08-15 09:44] LABS: CALCIUM LEVEL 8.8 MG/DL (8.8-10.2); CREATININE FOR GFR 1.06 MG/DL (0.55-1.30); GLOMERULAR FILTRATION RATE 52.4 (>32); POTASSIUM SERUM 3.9 MEQ/L (3.5-5.1)
[2018-08-15 14:00] VITALS: BP 118/57
--- NOTE | 2018-08-15 14:27 | IPNPDOC ---
Text Note Date of Service The patient was seen on 08/15/18. NOTE Subjective: Patient is a 83-year-old female with a PMHx of COPD on O2, Pulmonary HTN, CAD s/p CABG, Hx of [place], Chronic RBBB, Hx of TIA, Hx of Malaria, Hx of Dysentery, Anxiety, Hx of MRSA, Hx of Diverticulosis, Osteopenia and GERD who presented to the ER immediately after she was discharged because her son was no longer able to care for her at home. Patient was thought to be in COPD exacerbation; however this is her baseline level of functioning. Medications were adjusted back to her outpatient regimen. Patient was seen and examined at the bedside. Patient again has indicated that she doesn't feel great and that her shortness of breath is still persistent, however, not significantly changed from her baseline. She denies any significant cough. Denies chest pain or palpitations. Review of the medical record indicates the patient has been refusing oral medications several times. On questioning the patient she is noted that she's never refused any medication. I indicated to her that she should continue to remain compliant with medications and noted to help improve her overall condition. Objective: Vitals (See below) General: Lying in bed, no acute distress, comfortable, Awake / Alert HEENT: NC, AT CVS: RRR, +S1S2 Lungs: Fair air entry b/l, does not appear to be any auscultated evidence of rhonchi, wheezing or rales Abdomen: Soft, ND, NT Extremities: Lower extremities do reveal 1+ pitting edema bilaterally, - Calf tenderness Assessment and plan: Chronic dyspnea - likely 2/2 chronic COPD; less likely 2/2 chronic compensated diastolic CHF - Patient's breathing status appears to be at baseline and has been consistently at this range over several years - CXR 07/31: Bibasilar atelectasis or infiltrates decreased on the right compared to the previous study. [Chronic hypercapnic / hypoxic respiratory failure - likely 22/ Chronic COPD] - c/w inhaled therapy as ordered - c/w Prednisone at home dose [Chronic compensated diastolic CHF] - ECHO 07/16: hyperdynamic LV systolic function, G1 DD, MV poorly visualized - but possible vegetation, echodensity in LA, possibly thrombus - c/w Furosemide at home dose; advised patient to remain compliant with treatment regimen Urinary Tract Infection - Patient was noted to have increased frequency/urgency and had a fever of 1 00.3F on 08/10 - c/w Bactrim (Antibiotic day #6) Recent treatment for HCAP - s/p Augmentin treatment DM2 with episodes of hypoglycemia - c/w ISS and Levemir 5 units Hx of LLE DVT - Not on anticoagulation at this time Hx of Pulmonary HTN Hx of TIA - c/w ASA Hx of Dysentery Normocytic anemia - Hg stable Hx of Nephrectomy Anxiety - c/w Alprazolam Dementia - On 01/26/18 patient had an evaluation with Psychiatry; deemed not to have the capacity to make decisions CAD s/p stent - c/w ASA GI prophylaxis - c/w Omeprazole DVT prophylaxis - c/w Lovenox Disposition: - Will need terminal superintendent placement VS,Rashad, I+O VS, Rashad, I+O Laboratory Tests 08/15/18 08:52 Red Blood Count 3.04 L, Mean Corpuscular Volume 91.4, Mean Corpuscular Hemoglobin 28.9, Mean Corpuscular Hemoglobin Concent 31.7 L, Red Cell Distr ibution Width 17.6 H, Calcium Level 8.8 Vital Signs Date Time Temp Pulse Resp B/P (MAP) Pulse Ox O2 Delivery O2 Flow Rate FiO2 08/15/18 09:00 105 24 93 Nasal Cannula 2.0 08/15/18 06:00 98.7 144/81 (102) I&O- Last 24 Hours up to 6 AM 08/15/18 06:00 Intake Total 840 ml Output Total 1000 ml Balance -160 ml CODY GRIJALVA MD Aug 15, 2018 14:27
[2018-08-15] MEDS: HEPARIN SOD (PORCINE) 5000 UNITS/ML VIAL SQ SCH ×2 (15:29→21:41)
[2018-08-15 22:00] VITALS: BP 126/62
[2018-08-16] MEDS: HEPARIN SOD (PORCINE) 5000 UNITS/ML VIAL SQ SCH ×3 (05:35→20:47)
[2018-08-16 05:55] LABS: HEMATOCRIT 28.9 % (36.0-47.0); MEAN CORPUSCULAR HEMOGLOBIN 28.8 pg (27.0-33.0); MEAN CORPUSCULAR HGB CONC 31.1 g/dl (32.0-36.5); MEAN CORPUSCULAR VOLUME 92.3 fl (80.0-96.0); PLATELET COUNT, AUTOMATED 444 10^3/uL (150-450); RED BLOOD COUNT 3.13 10^6/uL (4.00-5.40); WHITE BLOOD COUNT 12.5 10^3/uL (4.0-10.0)
[2018-08-16 06:00] VITALS: BP 163/73
[2018-08-16 06:07] LABS: CALCIUM LEVEL 8.4 MG/DL (8.8-10.2); CREATININE FOR GFR 1.17 MG/DL (0.55-1.30); GLOMERULAR FILTRATION RATE 46.8 (>32)
[2018-08-16] MEDS: LEVALBUTEROL 1.25 MG/0.5 ML CONCENTRATE NEB INH PRN ×4 (07:09→20:13)
[2018-08-16] MEDS: SYMBICORT 160/4.5MCG INHALER 6GM INH SCH ×2 (07:09→20:13)
[2018-08-16] MEDS: TIOTROPIUM INHALER/CAPSULE (SPIRIVA) INH SCH (07:09)
[2018-08-16 09:01] LABS: MAGNESIUM LEVEL 2.1 MG/DL (1.8-2.4)
[2018-08-16] MEDS: HumaLOG INSULIN (NovoLOG) PER UNIT SC SCH ×4 (09:04→20:47)
[2018-08-16] MEDS: PANTOPRAZOLE 40MG TAB (PROTONIX) PO SCH (09:41)
[2018-08-16] MEDS: predniSONE 20 MG TAB PO SCH (09:41)
[2018-08-16] MEDS: LEVEMIR (INSULIN DETEMIR) 1 UNITS/0.01ML SC SCH (09:41)
[2018-08-16] MEDS: ALPRAZolam 0.25 MG TAB PO PRN (09:41)
[2018-08-16] MEDS: ASPIRIN 81 MG ENTERIC TAB PO SCH (09:41)
[2018-08-16] MEDS: ATORVASTATIN 10 MG TAB PO SCH (09:41)
[2018-08-16] MEDS: BACTRIM 160MG/800MG DS TAB PO SCH ×2 (09:41→20:48)
--- NOTE | 2018-08-16 13:09 | IPNPDOC ---
Text Note Date of Service The patient was seen on 08/16/18. NOTE Subjective: Patient is a 83-year-old female with a PMHx of COPD on O2, Pulmonary HTN, CAD s/p CABG, Hx of [place], Chronic RBBB, Hx of TIA, Hx of Malaria, Hx of Dysentery, Anxiety, Hx of MRSA, Hx of Diverticulosis, Osteopenia and GERD who presented to the ER immediately after she was discharged because her son was no longer able to care for her at home. Patient was thought to be in COPD exacerbation; however this is her baseline level of functioning. Medications were adjusted back to her outpatient regimen. Patient was seen and examined at the bedside. Patient has no new complaints today. Parents are consistent with prior. Denies chest pain, palpitations, nausea, vomiting, abdominal pain. Does note shortness of breath. However, this is remain unchanged however this has remained unchanged. Objective: Vitals (See below) General: Lying in bed, no acute distress, comfortable, Awake / Alert HEENT: NC, AT CVS: RRR, +S1S2 Lungs: Fair air entry b/l, auscultation does not reveal any signs of rhonchi, rales or wheezing Abdomen: Soft, ND, NT Extremities: Trace pitting edema bilaterally, - Calf tenderness Assessment and plan: Chronic dyspnea - likely 2/2 chronic COPD; less likely 2/2 chronic compensated diastolic CHF - Clinically has not had a change in her breathing status - CXR 07/31: Bibasilar atelectasis or infiltrates decreased on the right compared to the previous study. [Chronic hypercapnic / hypoxic respiratory failure - likely 22/ Chronic COPD] - c/w inhaled therapy as ordered - c/w Prednisone at home dose [Chronic compensated diastolic CHF] - ECHO 07/16: hyperdynamic LV systolic function, G1 DD, MV poorly visualized - but possible vegetation, echodensity in LA, possibly thrombus - Will hold Frusemide today; will resume tomorrow Urinary Tract Infection - Patient was noted to have increased frequency/urgency and had a fever of 100.3F on 08/10 - c/w Bactrim (Antibiotic day #7) Recent treatment for HCAP - s/p Augmentin treatment DM2 with episodes of hypoglycemia - c/w ISS and Levemir 5 units qAM Hx of LLE DVT - Not on anticoagulation at this time Hx of Pulmonary HTN Hx of TIA - c/w ASA Hx of Dysentery Normocytic anemia - Hg stable Hx of Nephrectomy Anxiety - c/w Alprazolam Dementia - On 01/26/18 patient had an evaluation with Psychiatry; deemed not to have the capacity to make decisions CAD s/p stent - c/w ASA GI prophylaxis - c/w Omeprazole DVT prophylaxis - c/w Lovenox Disposition: - Will need intermodal dispatcher placement VS,Fishbone, I+O VS, Fishbone, I+O Laboratory Tests 08/16/18 05:44 Red Blood Count 3.13 L, Mean Corpuscular Volume 92.3, Mean Corpuscular Hem oglobin 28.8, Mean Corpuscular Hemoglobin Concent 31.1 L, Red Cell Distribution Width 17.6 H, Calcium Level 8.4 L Vital Signs Date Time Temp Pulse Resp B/P (MAP) Pulse Ox O2 Delivery O2 Flow Rate FiO2 08/16/18 06:00 99.0 102 22 163/73 (103) 95 Nasal Cannula 2.0 I&O- Last 24 Hours up to 6 AM 08/16/18 06:00 Intake Total 760 ml Output Total 1675 ml Balance -915 ml CODY GRIJALVA MD Aug 16, 2018 13:09
[2018-08-16 14:00] VITALS: BP 135/64
[2018-08-16 22:00] VITALS: BP 134/61
[2018-08-17] MEDS: HEPARIN SOD (PORCINE) 5000 UNITS/ML VIAL SQ SCH ×3 (05:28→20:12)
[2018-08-17 06:00] VITALS: BP 161/70
[2018-08-17] MEDS: HumaLOG INSULIN (NovoLOG) PER UNIT SC SCH ×4 (07:30→20:13)
[2018-08-17] MEDS: SYMBICORT 160/4.5MCG INHALER 6GM INH SCH ×2 (08:24→20:56)
[2018-08-17] MEDS: TIOTROPIUM INHALER/CAPSULE (SPIRIVA) INH SCH (08:24)
[2018-08-17] MEDS: LEVALBUTEROL 1.25 MG/0.5 ML CONCENTRATE NEB INH PRN ×3 (08:25→20:56)
[2018-08-17] MEDS: PANTOPRAZOLE 40MG TAB (PROTONIX) PO SCH (08:29)
[2018-08-17] MEDS: BACTRIM 160MG/800MG DS TAB PO SCH ×2 (08:29→20:57)
[2018-08-17] MEDS: predniSONE 20 MG TAB PO SCH (08:29)
[2018-08-17] MEDS: FUROSEMIDE 40 MG TAB PO SCH ×2 (08:29→17:57)
[2018-08-17] MEDS: ATORVASTATIN 10 MG TAB PO SCH (08:29)
[2018-08-17] MEDS: ASPIRIN 81 MG ENTERIC TAB PO SCH (08:29)
[2018-08-17] MEDS: LEVEMIR (INSULIN DETEMIR) 1 UNITS/0.01ML SC SCH (08:30)
[2018-08-17 09:28] LABS: HEMATOCRIT 28.1 % (36.0-47.0); HEMOGLOBIN 8.9 g/dl (12.0-15.5); MEAN CORPUSCULAR HEMOGLOBIN 29.1 pg (27.0-33.0); MEAN CORPUSCULAR HGB CONC 31.7 g/dl (32.0-36.5); MEAN CORPUSCULAR VOLUME 91.8 fl (80.0-96.0); PLATELET COUNT, AUTOMATED 444 10^3/uL (150-450); RED BLOOD COUNT 3.06 10^6/uL (4.00-5.40); WHITE BLOOD COUNT 10.9 10^3/uL (4.0-10.0)
[2018-08-17 09:42] LABS: BLOOD UREA NITROGEN 21 MG/DL (7-18); CALCIUM LEVEL 8.9 MG/DL (8.8-10.2); CARBON DIOXIDE LEVEL 32 MEQ/L (21-32); CHLORIDE LEVEL 97 MEQ/L (98-107); CREATININE FOR GFR 0.92 MG/DL (0.55-1.30); GLOMERULAR FILTRATION RATE > 60.0 (>32); GLUCOSE, FASTING 128 MG/DL (70-100); POTASSIUM SERUM 3.7 MEQ/L (3.5-5.1); SODIUM LEVEL 138 MEQ/L (136-145)
[2018-08-17] MEDS: ALPRAZolam 0.25 MG TAB PO PRN (13:06)
--- NOTE | 2018-08-17 13:20 | IPNPDOC ---
Text Note Date of Service The patient was seen on 08/17/18. NOTE Subjective: Patient is a 83-year-old female with a PMHx of COPD on O2, Pulmonary HTN, CAD s/p CABG, Hx of [place], Chronic RBBB, Hx of TIA, Hx of Malaria, Hx of Dysentery, Anxiety, Hx of MRSA, Hx of Diverticulosis, Osteopenia and GERD who presented to the ER immediately after she was discharged because her son was no longer able to care for her at home. Patient was thought to be in COPD exacerbation; however this is her baseline level of functioning. Medications were adjusted back to her outpatient regimen. Patient was seen and examined at the bedside. Patient again has no significant change compared to yesterday. Again notes that she has congestion. Denies chest pain or palpitations. Denies nausea, vomiting, abdominal pain. Objective: Vitals (See below) General: Lying in bed, no acute distress, comfortable, Awake / Alert HEENT: NC, AT CVS: RRR, +S1S2 Lungs: Fair air entry b/l, no evidence of wheezing / rales / rhonchi Abdomen: Soft, ND, NT Extremities: Again trace b/l pitting edema , - Calf tenderness Assessment and plan: Chronic dyspnea - likely 2/2 chronic COPD; less likely 2/2 chronic compensated diastolic CHF - No significant change in breathing pattern - CXR 07/31: Bibasilar atelectasis or infiltrates decreased on the right compared to the previous study. [Chronic hypercapnic / hypoxic respiratory failure - likely 22/ Chronic COPD] - c/w inhaled therapy as ordered - c/w Prednisone at home dose [Chronic compensated diastolic CHF] - ECHO 07/16: hyperdynamic LV systolic function, G1 DD, MV poorly visualized - but possible vegetation, echodensity in [place], possibly thrombus - c/w Furosemide Urinary Tract Infection - Patient was noted to have increased frequency/urgency and had a fever of 100.3F on 08/10 - c/w Bactrim (Antibiotic day #8 of ) Recent treatment for HCAP - s/p Augmentin treatment DM2 with episodes of hypoglycemia - c/w ISS and Levemir 5 units qAM Hx of LLE DVT - Not on anticoagulation at this time Hx of Pulmonary HTN Hx of TIA - c/w ASA Hx of Dysentery Normocytic anemia - Hg stable Hx of Nephrectomy Anxiety - c/w Alprazolam Dementia - On 01/26/18 patient had an evaluation with Psychiatry; deemed not to have the capacity to make decisions CAD s/p stent - c/w ASA GI prophylaxis - c/w Omeprazole DVT prophylaxis - c/w Lovenox Disposition: - Will need home teaching grades 9 thru 12 teacher placement VS,Fishbone, I+O VS, Fishbone, I+O Laboratory Tests 08/17/18 09:09 Red Blood Count 3.06 L, Mean Corpuscular Volume 91.8, Mean Corpuscular Hemoglobin 29.1, Mean Corpuscular Hemoglobin Concent 31.7 L, Red Cell Distribution Width 17.6 H, Calcium Level 8.9 Vital Signs Date Time Temp Pulse Resp B/P (MAP) Pulse Ox O2 Delivery O2 Flow Rate FiO2 08/17/18 06:00 98.8 92 24 161/70 (100) 99 Nasal Cannula 2.0 I&O- Last 24 Hours up to 6 AM 08/17/18 06:00 Intake Total 1570 ml Output Total 600 ml Balance 970 ml CODY GRIJALVA MD Aug 17, 2018 13:20
[2018-08-17 14:00] VITALS: BP 154/65
[2018-08-17 22:00] VITALS: BP 121/66
[2018-08-18] MEDS: HEPARIN SOD (PORCINE) 5000 UNITS/ML VIAL SQ SCH ×3 (05:20→21:29)
[2018-08-18] MEDS: LEVALBUTEROL 1.25 MG/0.5 ML CONCENTRATE NEB INH PRN ×4 (05:36→21:12)
[2018-08-18 06:00] VITALS: BP 130/63
[2018-08-18 06:13] LABS: HEMATOCRIT 27.8 % (36.0-47.0); HEMOGLOBIN 8.7 g/dl (12.0-15.5); MEAN CORPUSCULAR HEMOGLOBIN 28.8 pg (27.0-33.0); MEAN CORPUSCULAR HGB CONC 31.3 g/dl (32.0-36.5); MEAN CORPUSCULAR VOLUME 92.1 fl (80.0-96.0); PLATELET COUNT, AUTOMATED 415 10^3/uL (150-450); RED BLOOD COUNT 3.02 10^6/uL (4.00-5.40); WHITE BLOOD COUNT 13.1 10^3/uL (4.0-10.0)
[2018-08-18 06:38] LABS: BLOOD UREA NITROGEN 22 MG/DL (7-18); CALCIUM LEVEL 8.2 MG/DL (8.8-10.2); CARBON DIOXIDE LEVEL 30 MEQ/L (21-32); CHLORIDE LEVEL 99 MEQ/L (98-107); CREATININE FOR GFR 0.85 MG/DL (0.55-1.30); GLOMERULAR FILTRATION RATE > 60.0 (>32); GLUCOSE, FASTING 133 MG/DL (70-100); POTASSIUM SERUM 3.7 MEQ/L (3.5-5.1); SODIUM LEVEL 138 MEQ/L (136-145)
[2018-08-18] MEDS: HumaLOG INSULIN (NovoLOG) PER UNIT SC SCH ×4 (07:30→21:29)
[2018-08-18 07:50] VITALS: O2SAT 99
[2018-08-18] MEDS: TIOTROPIUM INHALER/CAPSULE (SPIRIVA) INH SCH (07:51)
[2018-08-18] MEDS: SYMBICORT 160/4.5MCG INHALER 6GM INH SCH ×2 (07:51→21:14)
[2018-08-18] MEDS: ATORVASTATIN 10 MG TAB PO SCH (08:59)
[2018-08-18] MEDS: PANTOPRAZOLE 40MG TAB (PROTONIX) PO SCH (08:59)
[2018-08-18] MEDS: predniSONE 20 MG TAB PO SCH (09:58)
[2018-08-18] MEDS: BACTRIM 160MG/800MG DS TAB PO SCH ×2 (09:58→20:45)
[2018-08-18] MEDS: FUROSEMIDE 40 MG TAB PO SCH ×2 (09:58→17:57)
[2018-08-18] MEDS: ASPIRIN 81 MG ENTERIC TAB PO SCH (09:58)
[2018-08-18] MEDS: LEVEMIR (INSULIN DETEMIR) 1 UNITS/0.01ML SC SCH (10:03)
--- NOTE | 2018-08-18 12:08 | IPNPDOC ---
Text Note Date of Service The patient was seen on 08/18/18. NOTE Subjective: Patient is a 83-year-old female with a PMHx of COPD on O2, Pulmonary HTN, CAD s/p CABG, Hx of [place], Chronic RBBB, Hx of TIA, Hx of Malaria, Hx of Dysentery, Anxiety, Hx of MRSA, Hx of Diverticulosis, Osteopenia and GERD who presented to the ER immediately after she was discharged because her son was no longer able to care for her at home. Patient was thought to be in COPD exacerbation; however this is her baseline level of functioning. Medications were adjusted back to her outpatient regimen. Patient was seen and examined at the bedside. Denies CP / SOB / Palp / N&V / Ab pain / C&D / Dysuria. Objective: Vitals (See below) General: Lying in bed, no acute distress, comfortable, Awake / Alert HEENT: NC, AT CVS: RRR, +S1S2 Lungs: Fair air entry b/l, no auscultated wheezing / rhonchi / rales Abdomen: Soft, ND, Non-tender Extremities: Pitting edema trace b/l , - Calf tenderness Assessment and plan: Chronic dyspnea - likely 2/2 chronic COPD; less likely 2/2 chronic compensated diastolic CHF - Breathing unchanged - CXR 07/31: Bibasilar atelectasis or infiltrates decreased on the right compared to the previous study. [Chronic hypercapnic / hypoxic respiratory failure - likely 22/ Chronic COPD] - c/w inhaled therapy as ordered - c/w Prednisone - continue current home [Chronic compensated diastolic CHF] - ECHO 07/16: hyperdynamic LV systolic function, G1 DD, MV poorly visualized - but possible vegetation, echodensity in [place], possibly thrombus - c/w Furosemide Urinary Tract Infection - Patient was noted to have increased frequency/urgency and had a fever of 10 0.3F on 08/10 - c/w Bactrim (Antibiotic day #9 of ) Recent treatment for HCAP - s/p Augmentin treatment DM2 with episodes of hypoglycemia - c/w ISS and Levemir 5 units qAM Hx of LLE DVT - Not on anticoagulation at this time Hx of Pulmonary HTN Hx of TIA - c/w ASA Hx of Dysentery Normocytic anemia - Hg stable Hx of Nephrectomy Anxiety - c/w Alprazolam Dementia - On 01/26/18 patient had an evaluation with Psychiatry; deemed not to have the capacity to make decisions CAD s/p stent - c/w ASA GI prophylaxis - c/w Omeprazole DVT prophylaxis - c/w Lovenox Disposition: - Will need reservations and ticketing agent placement VS,Fishbone, I+O VS, Fishbone, I+O Laboratory Tests 08/18/18 05:56 Red Blood Count 3.02 L, Mean Corpuscular Volume 92.1, Mean Corpuscular Hemoglobin 28.8, Mean Corpuscular Hemoglobin Concent 31.3 L, Red Cell Distribution Width 17.9 H, Calcium Level 8.2 L Vital Signs Date Time Temp Pulse Resp B/P (MAP) Pulse Ox O2 Delivery O2 Flow Rate FiO2 08/18/18 07:50 99 Nasal Cannula 2.0 08/18/18 07:50 99 30 08/18/18 06:00 97.7 130/63 (85) I&O- Last 24 Hours up to 6 AM 08/18/18 06:00 Intake Total 1260 ml Output Total 1400 ml Balance -140 ml CODY GRIJALVA MD Aug 18, 2018 12:08
[2018-08-18 14:00] VITALS: BP 135/59
[2018-08-18 22:00] VITALS: BP 133/64
[2018-08-19] MEDS: diphenhydrAMINE 25 MG CAP PO PRN ×2 (01:29→20:40)
[2018-08-19] MEDS: LEVALBUTEROL 1.25 MG/0.5 ML CONCENTRATE NEB INH PRN ×2 (02:14→13:02)
[2018-08-19] MEDS: HEPARIN SOD (PORCINE) 5000 UNITS/ML VIAL SQ SCH ×3 (05:18→20:40)
[2018-08-19 06:00] VITALS: BP 142/58
[2018-08-19] MEDS: TIOTROPIUM INHALER/CAPSULE (SPIRIVA) INH SCH (06:25)
[2018-08-19] MEDS: SYMBICORT 160/4.5MCG INHALER 6GM INH SCH ×2 (06:25→21:18)
[2018-08-19] MEDS: HumaLOG INSULIN (NovoLOG) PER UNIT SC SCH ×5 (09:00→20:39)
[2018-08-19] MEDS: LEVEMIR (INSULIN DETEMIR) 1 UNITS/0.01ML SC SCH ×2 (09:00→09:57)
[2018-08-19] MEDS: ASPIRIN 81 MG ENTERIC TAB PO SCH ×3 (09:00→12:46)
[2018-08-19] MEDS: PANTOPRAZOLE 40MG TAB (PROTONIX) PO SCH ×3 (09:00→12:46)
[2018-08-19 09:15] LABS: BASO # 0.1 10^3/uL (0.0-0.2); BASO % 0.4 % (0.0-1.0); EOS # 0.1 10^3/uL (0.0-0.50); EOS % 0.5 % (0.0-3.0); HEMATOCRIT 28.9 % (36.0-47.0); HEMOGLOBIN 8.9 g/dl (12.0-15.5); LYMPH # 1.3 10^3/uL (1.5-4.5); LYMPH % 11.5 % (24.0-44.0); MEAN CORPUSCULAR HEMOGLOBIN 28.5 pg (27.0-33.0); MEAN CORPUSCULAR HGB CONC 30.8 g/dl (32.0-36.5); MEAN CORPUSCULAR VOLUME 92.6 fl (80.0-96.0); MONO # 0.9 10^3/uL (0.0-0.8); MONO % 7.7 % (0.0-5.0); NEUTROPHILS # 8.8 10^3/uL (1.8-7.7); NEUTROPHILS % 75.6 % (36.0-66.0); PLATELET COUNT, AUTOMATED 451 10^3/uL (150-450); RED BLOOD COUNT 3.12 10^6/uL (4.00-5.40); WHITE BLOOD COUNT 11.6 10^3/uL (4.0-10.0)
[2018-08-19 09:35] LABS: BILIRUBIN,TOTAL 0.4 MG/DL (0.2-1.0); CALCIUM LEVEL 8.6 MG/DL (8.8-10.2); CREATININE FOR GFR 1.05 MG/DL (0.55-1.30); MAGNESIUM LEVEL 2.2 MG/DL (1.8-2.4); POTASSIUM SERUM 3.6 MEQ/L (3.5-5.1); TOTAL PROTEIN 7.1 GM/DL (6.4-8.2)
[2018-08-19] MEDS: ALPRAZolam 0.25 MG TAB PO PRN ×2 (09:56→12:46)
[2018-08-19] MEDS: FUROSEMIDE 40 MG TAB PO SCH ×2 (09:56→17:00)
[2018-08-19] MEDS: predniSONE 20 MG TAB PO SCH (09:56)
[2018-08-19] MEDS: BACTRIM 160MG/800MG DS TAB PO SCH ×2 (09:57→20:39)
[2018-08-19] MEDS: ATORVASTATIN 10 MG TAB PO SCH (09:58)
--- NOTE | 2018-08-19 10:44 | IPNPDOC ---
Text Note Date of Service The patient was seen on 08/19/18. NOTE Subjective: Patient is a 83-year-old female with a PMHx of COPD on O2, Pulmonary HTN, CAD s/p CABG, Hx of [place], Chronic RBBB, Hx of TIA, Hx of Malaria, Hx of Dysentery, Anxiety, Hx of MRSA, Hx of Diverticulosis, Osteopenia and GERD who presented to the ER immediately after she was discharged because her son was no longer able to care for her at home. Patient was thought to be in COPD exacerbation; however this is her baseline level of functioning. Medications were adjusted back to her outpatient regimen. Patient was seen and examined at the bedside. Patient notes that she feels ill. Patient is unable to describe this any further. She denies any pain, notes that she doesn't feel pain like normal people do. She denies any constipation or diar troy. Has been urinating regularly. Denies any discomfort with urination. Denies nausea or vomiting. Objective: Vitals (See below) General: Lying in bed, no acute distress, comfortable, Awake / Alert HEENT: NC, AT CVS: RRR, +S1S2 Lungs: Fair air entry b/l, there does not appear to be any auscultated evidence of rales, rhonchi or wheezing Abdomen: Soft, ND, Non-tender Extremities: Pitting edema still present at her bilateral lower extremities, - Calf tenderness Assessment and plan: Chronic dyspnea - likely 2/2 chronic COPD; less likely 2/2 chronic compensated diastolic CHF - Breathing remains unchanged with the hospital course - Saturation remains stable - CXR 07/31: Bibasilar atelectasis or infiltrates decreased on the right compared to the previous study. [Chronic hypercapnic / hypoxic respiratory failure - likely 22/ Chronic COPD] - c/w inhaled therapy as ordered - c/w Prednisone - continue current home [Chronic compensated diastolic CHF] - ECHO 07/16: hyperdynamic LV systolic function, G1 DD, MV poorly visualized - but possible vegetation, echodensity in LA, possibly thrombus - c/w Furosemide Urinary Tract Infection - Patient was noted to have increased frequency/urgency and had a fever of 100.3F on 08/10 - Will discontinue Bactrim today after completing 10 day course Recent treatment for HCAP - s/p Augmentin treatment DM2 with episodes of hypoglycemia - c/w ISS and Levemir 5 units qAM Hx of LLE DVT - Not on anticoagulation at this time Hx of Pulmonary HTN Hx of TIA - c/w ASA Hx of Dysentery Normocytic anemia - Hg stable Hx of Nephrectomy Anxiety - c/w Alprazolam Dementia - On 01/26/18 patient had an evaluation with Psychiatry; deemed not to have the capacity to make decisions CAD s/p stent - c/w ASA GI prophylaxis - c/w Omeprazole DVT prophylaxis - c/w Lovenox Disposition: - PFS / Case management looking into long-term placement options VS,Fishbone, I+O VS, Fishbone, I+O Laboratory Tests 08/19/18 08:57 Red Blood Count 3.12 L, Mean Corpuscular Volume 92.6, Mean Corpuscular Hemoglobin 28.5, Mean Corpuscular Hemoglobin Concent 30.8 L, Red Cell Distribution Width 17.6 H, Neutrophils (%) (Auto) 75.6 H, Lymphocytes (%) (Auto) 11.5 L, Monocytes (%) (Auto) 7.7 H, Eosinophils (%) (Auto) 0.5, Basophils (%) (A uto) 0.4, Neutrophils # (Auto) 8.8 H, Lymphocytes # (Auto) 1.3 L, Monocytes # (Auto) 0.9 H, Eosinophils # (Auto) 0.1, Basophils # (Auto) 0.1, Calcium Level 8.6 L, Aspartate Amino Transf (AST/SGOT) 23, Alanine Aminotransferase (ALT/SGPT) 37, Alkaline Phosphatase 83, Total Bilirubin 0.4, Total Protein 7.1, Albumin 3.0 L Vital Signs Date Time Temp Pulse Resp B/P (MAP) Pulse Ox O2 Delivery O2 Flow Rate FiO2 08/19/18 06:00 97.2 100 18 142/58 (86) 96 Nasal Cannula 2.0 I&O- Last 24 Hours up to 6 AM 08/19/18 06:00 Intake Total 300 ml Output Total 600 ml Balance -300 ml CODY GRIJALVA MD Aug 19, 2018 10:44
[2018-08-19 14:00] VITALS: BP 134/60
[2018-08-19 22:00] VITALS: BP 133/62
[2018-08-20] MEDS: LEVALBUTEROL 1.25 MG/0.5 ML CONCENTRATE NEB INH PRN ×2 (05:38→13:03)
[2018-08-20] MEDS: HEPARIN SOD (PORCINE) 5000 UNITS/ML VIAL SQ SCH ×3 (05:41→21:12)
[2018-08-20 06:00] VITALS: BP 129/60
[2018-08-20] MEDS: HumaLOG INSULIN (NovoLOG) PER UNIT SC SCH ×4 (07:24→20:34)
[2018-08-20] MEDS: TIOTROPIUM INHALER/CAPSULE (SPIRIVA) INH SCH (07:48)
[2018-08-20] MEDS: SYMBICORT 160/4.5MCG INHALER 6GM INH SCH ×2 (07:48→19:48)
[2018-08-20] MEDS: PANTOPRAZOLE 40MG TAB (PROTONIX) PO SCH ×2 (08:24→10:45)
[2018-08-20] MEDS: ATORVASTATIN 10 MG TAB PO SCH (08:24)
[2018-08-20] MEDS: FUROSEMIDE 40 MG TAB PO SCH ×2 (08:24→18:18)
[2018-08-20] MEDS: predniSONE 20 MG TAB PO SCH (08:25)
[2018-08-20] MEDS: LEVEMIR (INSULIN DETEMIR) 1 UNITS/0.01ML SC SCH ×2 (08:25→10:45)
[2018-08-20] MEDS: BACTRIM 160MG/800MG DS TAB PO SCH (08:25)
[2018-08-20] MEDS: ASPIRIN 81 MG ENTERIC TAB PO SCH (08:25)
[2018-08-20] MEDS ORDERED: MOM 30ML SUSPENSION UDC PO PRN (09:15)
[2018-08-20] MEDS ORDERED: SENOKOT S TAB PO PRN (09:15)
--- NOTE | 2018-08-20 13:38 | IPNPDOC ---
Text Note Date of Service The patient was seen on 08/20/18. NOTE Subjective: Patient is a 83-year-old female with a PMHx of COPD on O2, Pulmonary HTN, CAD s/p CABG, Hx of [place], Chronic RBBB, Hx of TIA, Hx of Malaria, Hx of Dysentery, Anxiety, Hx of MRSA, Hx of Diverticulosis, Osteopenia and GERD who pr esented to the ER immediately after she was discharged because her son was no longer able to care for her at home. Patient was thought to be in COPD exacerbation; however this is her baseline level of functioning. Medications were adjusted back to her outpatient regimen. Patient was seen and examined at the bedside. Patient notes that she is short of breath. She denies chest pain or palpitations. Denies any productive cough. Denies any nausea, vomiting, abdominal pain, constipation, diarrhea or discomfo rt with urination. Patient notes that her lower extremities are tender. Denies any significant swelling. Objective: Vitals (See below) General: Lying in bed, no acute distress, comfortable, Awake / Alert HEENT: NC, AT CVS: RRR, +S1S2 Lungs: Fair air entry b/l, no auscultated evidence of rhonchi, rales or wheezing Abdomen: Soft, ND, Non-tender Extremities: Does not reveal any calf tenderness. There is trace pitting edema bilaterally Assessment and plan: Chronic dyspnea - likely 2/2 chronic COPD; less likely 2/2 chronic compensated diastolic CHF - Clinically remains unchanged - Physical without any adventitious lung sounds. Lower extremity edema is trace and has been stable - Saturation remains stable - CXR 07/31: Bibasilar atelectasis or infiltrates decreased on the right compared to the previous study. [Chronic hypercapnic / hypoxic respiratory failure - likely 22/ Chronic COPD] - c/w inhaled therapy as ordered - c/w Prednisone - continue current home [Chronic compensated diastolic CHF] - ECHO 07/16: hyperdynamic LV systolic function, G1 DD, MV poorly visualized - but possible vegetation, echodensity in LA, possibly thrombus - c/w Furosemide PO BID Urinary Tract Infection - Patient was noted to have increased frequency/urgency and had a fever of 100.3F on 08/10 - s/p Bactrim 10 day course Recent treatment for HCAP - s/p Augmentin treatment DM2 with episodes of hypoglycemia - c/w ISS and Levemir 5 units qAM Hx of LLE DVT - Not on anticoagulation at this time Hx of Pulmonary HTN Hx of TIA - c/w ASA Hx of Dysentery Normocytic anemia - Hg stable Hx of Nephrectomy Anxiety - c/w Alprazolam Dementia - On 01/26/18 patient had an evaluation with Psychiatry; deemed not to have the capacity to make decisions CAD s/p stent - c/w ASA GI prophylaxis - c/w Omeprazole DVT prophylaxis - c/w Lovenox Disposition: - PFS / Case management looking into long-term placement options VS,Fishbone, I+O VS, Fishbone, I+O Vital Signs Date Time Temp Pulse Resp B/P (MAP) Pulse Ox O2 Delivery O2 Flow Rate FiO2 08/20/18 09:00 2.0 08/20/18 06:00 98.4 85 21 129/60 (83) 99 Nasal Cannula I&O- Last 24 Hours up to 6 AM 08/20/18 06:00 Intake Total 640 ml Output Total 500 ml Balance 140 ml CODY GRIJALVA MD Aug 20, 2018 13:38
[2018-08-20 14:00] VITALS: BP 140/75
[2018-08-20 22:00] VITALS: BP 121/69
[2018-08-21] MEDS: HEPARIN SOD (PORCINE) 5000 UNITS/ML VIAL SQ SCH ×3 (05:35→21:45)
[2018-08-21 06:00] VITALS: BP 127/58
[2018-08-21] MEDS: HumaLOG INSULIN (NovoLOG) PER UNIT SC SCH ×4 (07:19→21:44)
[2018-08-21] MEDS: TIOTROPIUM INHALER/CAPSULE (SPIRIVA) INH SCH (07:34)
[2018-08-21] MEDS: SYMBICORT 160/4.5MCG INHALER 6GM INH SCH ×2 (07:35→20:10)
[2018-08-21] MEDS: PANTOPRAZOLE 40MG TAB (PROTONIX) PO SCH (08:27)
[2018-08-21] MEDS: ASPIRIN 81 MG ENTERIC TAB PO SCH (08:44)
[2018-08-21] MEDS: predniSONE 20 MG TAB PO SCH (08:44)
[2018-08-21] MEDS: FUROSEMIDE 40 MG TAB PO SCH ×2 (08:44→18:24)
[2018-08-21] MEDS: ATORVASTATIN 10 MG TAB PO SCH (08:47)
[2018-08-21] MEDS: LEVEMIR (INSULIN DETEMIR) 1 UNITS/0.01ML SC SCH (08:59)
[2018-08-21] MEDS: LEVALBUTEROL 1.25 MG/0.5 ML CONCENTRATE NEB INH PRN ×3 (09:03→20:10)
[2018-08-21 09:23] LABS: BASO % 0.4 % (0.0-1.0); EOS # 0.1 10^3/uL (0.0-0.50); EOS % 0.6 % (0.0-3.0); HEMATOCRIT 28.9 % (36.0-47.0); HEMOGLOBIN 9.1 g/dl (12.0-15.5); LYMPH # 1.4 10^3/uL (1.5-4.5); LYMPH % 12.7 % (24.0-44.0); MEAN CORPUSCULAR HEMOGLOBIN 28.7 pg (27.0-33.0); MEAN CORPUSCULAR HGB CONC 31.5 g/dl (32.0-36.5); MEAN CORPUSCULAR VOLUME 91.2 fl (80.0-96.0); MONO # 0.9 10^3/uL (0.0-0.8); MONO % 7.8 % (0.0-5.0); NEUTROPHILS # 8.4 10^3/uL (1.8-7.7); PLATELET COUNT, AUTOMATED 464 10^3/uL (150-450); RED BLOOD COUNT 3.17 10^6/uL (4.00-5.40)
[2018-08-21 09:47] LABS: CALCIUM LEVEL 8.8 MG/DL (8.8-10.2); CREATININE FOR GFR 1.01 MG/DL (0.55-1.30); GLOMERULAR FILTRATION RATE 55.5 (>32); MAGNESIUM LEVEL 2.2 MG/DL (1.8-2.4); POTASSIUM SERUM 3.4 MEQ/L (3.5-5.1)
[2018-08-21] MEDS ORDERED: FUROSEMIDE 40 MG TAB PO ONE (12:00)
--- NOTE | 2018-08-21 13:32 | IPNPDOC ---
Date Seen The patient was seen on 08/21/18. Progress Note SUBJECTIVE: Patient complains of swelling in her feet, she otherwise states that her breathing is as it always is. OBJECTIVE PHYSICAL EXAMINATION: VITAL SIGNS: Please see below. GENERAL: Frail disheveled elderly female lying in bed on her right side she does not appear to be in any acute distress she is awake alert oriented 3 speak in complete sentences with no accessory muscle use HEENT: Pupils are equally round reactive to light she has moist mucous membranes mild elevation in her CVP CARDIOVASCULAR: S1-S2 regular. RESPIRATORY: Fairly Good air movement diminished breath sounds at the bases with a prolonged expiratory phase and audible wheezes some scattered bibasilar Rales. ABDOMINAL: Bowel sounds present abdomen soft and nontender EXTREMITIES: To 2+ edema bilaterally LABORATORY DATA, IMAGING STUDIES, MICROBIOLOGY: Please see below. DVT prophylaxis ordered?: Heparin ASSESSMENT AND PLAN: This is a 83-year-old female with shortness of breath. 1. Shortness of breath-patient has chronic hypoxic respiratory failure secondary to chronic COPD at this time she is at her baseline respiratory status. She does appear to be somewhat volume overloaded I will increase her home Lasix dosing to 40 twice a day to 80 twice a day she recently had an echocardiogram that revea led preserved ejection fraction mild left ventricular hypertrophy with grade 1 diastolic dysfunction. The patient is currently awaiting placement she has remained medically stable for extended period of time I will make her ALC status today. She is continued on her baseline 2 L of oxygen. She is continued on Spiriva and Symbicort Xopenex Mucinex and prednisone. Given her chronic high- dose steroid requirement I will start her on PCP prophylaxis with Bactrim. PFS appreciated 2. Urinary Tract Infection: Resolved the patient completed a course of therapy 3. Recent treatment for HCAP: Resolved she's completed a course of therapy 4. DM2 - c/w ISS and Levemir 5 units qAM patient is only intermittently compliant even in hospital extensive time spent bedside counseling the patient regarding the importance of taking insulin 5. Hx of LLE DVT: Not on any anticoagulation 6. Hx of TIA: c/w ASA, refuses statin 7. Normocytic anemia: Chronic and stable 8. Hx of Nephrectomy: Chronic and stable 9. Anxiety: c/w Alprazolam 10.CAD s/p stent: c/w ASA refuses statin not on any beta yaw likely related to her pulmonary disease 11. Gastroesophageal reflux disease: c/w Omeprazole Disposition: - PFS / Case management looking into long-term placement options VS, I&O, 24H, Rashad Vital Signs/I&O Vital Signs Date Time Temp Pulse Resp B/P (MAP) Pulse Ox O2 Delivery O2 Flow Rate FiO2 08/21/18 09:05 2.0 08/21/18 06:00 98.0 72 18 127/58 (81) 90 Nasal Cannula I&O- Last 24 Hours up to 6 AM 08/21/18 06:00 Intake Total 840 ml Output Total 900 ml Balance -60 ml Laboratory Data 24H LABS Laboratory Tests 2 08/20/18 16:37: Bedside Glucose (Misc Panel) 144H 08/20/18 20:23: Bedside Glucose (Misc Panel) 186H 08/21/18 06:17: Bedside Glucose (Misc Panel) 89 08/21/18 08:42: Immature Granulocyte % (Auto) 2.5, White Blood Count 11.0H, Red Blood Count 3.17L, Hemoglobin 9.1L, Hematocrit 28.9L, Mean Corpuscular Volume 91.2, Mean Corpuscular Hemoglobin 28.7, Mean Corpuscular Hemoglobin Concent 31.5L, Red Cell Distribution Width 17.3H, Platelet Count 464H, Neutrophils (%) (Auto) 76.0H, Lymphocytes (%) (Auto) 12.7L, Monocytes (%) (Auto) 7.8H, Eosinophils (%) (Auto) 0.6, Basophils (%) (Auto) 0.4, Neutrophils # (Auto) 8.4H, Lymphocytes # (Auto) 1.4L, Monocytes # (Auto) 0.9H, Eosinophils # (Auto) 0.1, Basophils # (Auto) 0.0, Nucleated Red Blood Cells % (auto) 0.0, Anion Gap 9, Glomerular Filtration Rate 55.5, Blood Urea Nitrogen 21H, Creatinine 1.01, Sodium Level 137, Potassium Level 3.4L, Chloride Level 98, Carbon Dioxide Level 30, Calcium Level 8.8, Magnesium Level 2.2 08/21/18 11:14: Bedside Glucose (Misc Panel) 398H CBC/BMP Laboratory Tests 08/21/18 08:42 Red Blood Count 3.17 L, Mean Corpuscular Volume 91.2, Mean Corpuscular Hemoglobin 28.7, Mean Corpuscular Hemoglobin Concent 31.5 L, Red Cell Distribution Width 17.3 H, Neutrophils (%) (Auto) 76.0 H, Lymphocytes (%) (Auto) 12.7 L, Monocytes (%) (Auto) 7.8 H, Eosinophils (%) (Auto) 0.6, Basophils (%) (Auto) 0.4, Neutrophils # (Auto) 8.4 H, Lymphocytes # (Auto) 1.4 L, Monocytes # (Auto) 0.9 H, Eosinophils # (Auto) 0.1, Basophils # (Auto) 0.0, Calcium Level 8.8 CHAD DE LA TORRE MD Aug 21, 2018 13:32
[2018-08-21 14:00] VITALS: BP 143/66
[2018-08-22] MEDS: HEPARIN SOD (PORCINE) 5000 UNITS/ML VIAL SQ SCH ×3 (05:22→21:24)
[2018-08-22 06:00] VITALS: BP_SYST 121; BP_SYST 131; BP_DIAS 60; BP_DIAS 74
[2018-08-22] MEDS: TIOTROPIUM INHALER/CAPSULE (SPIRIVA) INH SCH (07:20)
[2018-08-22] MEDS: SYMBICORT 160/4.5MCG INHALER 6GM INH SCH ×2 (07:20→19:39)
[2018-08-22] MEDS: HumaLOG INSULIN (NovoLOG) PER UNIT SC SCH ×4 (07:27→21:24)
[2018-08-22 08:17] LABS: BASO % 0.2 % (0.0-1.0); EOS # 0.1 10^3/uL (0.0-0.50); EOS % 0.5 % (0.0-3.0); HEMATOCRIT 27.5 % (36.0-47.0); HEMOGLOBIN 8.7 g/dl (12.0-15.5); LYMPH # 1.5 10^3/uL (1.5-4.5); MEAN CORPUSCULAR HGB CONC 31.6 g/dl (32.0-36.5); MEAN CORPUSCULAR VOLUME 91.7 fl (80.0-96.0); MONO # 0.8 10^3/uL (0.0-0.8); MONO % 7.7 % (0.0-5.0); NEUTROPHILS # 7.8 10^3/uL (1.8-7.7); NEUTROPHILS % 74.9 % (36.0-66.0); PLATELET COUNT, AUTOMATED 453 10^3/uL (150-450); WHITE BLOOD COUNT 10.4 10^3/uL (4.0-10.0)
[2018-08-22 08:39] LABS: CALCIUM LEVEL 8.5 MG/DL (8.8-10.2); CREATININE FOR GFR 0.99 MG/DL (0.55-1.30); GLOMERULAR FILTRATION RATE 56.8 (>32); MAGNESIUM LEVEL 2.1 MG/DL (1.8-2.4); POTASSIUM SERUM 3.7 MEQ/L (3.5-5.1)
[2018-08-22] MEDS: ATORVASTATIN 10 MG TAB PO SCH (09:00)
[2018-08-22] MEDS: PANTOPRAZOLE 40MG TAB (PROTONIX) PO SCH (09:00)
[2018-08-22] MEDS: FUROSEMIDE 40 MG TAB PO SCH ×2 (09:57→16:46)
[2018-08-22] MEDS: predniSONE 20 MG TAB PO SCH (09:57)
[2018-08-22] MEDS: ASPIRIN 81 MG ENTERIC TAB PO SCH (09:57)
[2018-08-22] MEDS: BACTRIM 160MG/800MG DS TAB PO SCH (09:57)
[2018-08-22] MEDS: LEVEMIR (INSULIN DETEMIR) 1 UNITS/0.01ML SC SCH (09:58)
[2018-08-22] MEDS: LEVALBUTEROL 1.25 MG/0.5 ML CONCENTRATE NEB INH PRN (12:45)
[2018-08-22] MEDS: ALPRAZolam 0.25 MG TAB PO PRN (14:32)
[2018-08-23] MEDS: HEPARIN SOD (PORCINE) 5000 UNITS/ML VIAL SQ SCH ×3 (05:50→21:23)
[2018-08-23 06:00] VITALS: BP 121/71
[2018-08-23 06:25] VITALS: BP 136/80
[2018-08-23] MEDS: TIOTROPIUM INHALER/CAPSULE (SPIRIVA) INH SCH (07:25)
[2018-08-23] MEDS: SYMBICORT 160/4.5MCG INHALER 6GM INH SCH ×2 (07:25→20:04)
[2018-08-23] MEDS: HumaLOG INSULIN (NovoLOG) PER UNIT SC SCH ×4 (07:30→20:34)
[2018-08-23] MEDS: FUROSEMIDE 40 MG TAB PO SCH ×2 (09:00→16:46)
[2018-08-23 09:06] LABS: BASO % 0.4 % (0.0-1.0); EOS # 0.1 10^3/uL (0.0-0.50); EOS % 0.6 % (0.0-3.0); HEMATOCRIT 28.5 % (36.0-47.0); LYMPH # 1.4 10^3/uL (1.5-4.5); LYMPH % 14.5 % (24.0-44.0); MEAN CORPUSCULAR HEMOGLOBIN 29.3 pg (27.0-33.0); MEAN CORPUSCULAR HGB CONC 31.6 g/dl (32.0-36.5); MEAN CORPUSCULAR VOLUME 92.8 fl (80.0-96.0); MONO # 0.8 10^3/uL (0.0-0.8); MONO % 7.7 % (0.0-5.0); NEUTROPHILS # 7.4 10^3/uL (1.8-7.7); NEUTROPHILS % 74.2 % (36.0-66.0); PLATELET COUNT, AUTOMATED 433 10^3/uL (150-450); RED BLOOD COUNT 3.07 10^6/uL (4.00-5.40); WHITE BLOOD COUNT 9.9 10^3/uL (4.0-10.0)
[2018-08-23] MEDS: ATORVASTATIN 10 MG TAB PO SCH (09:19)
[2018-08-23] MEDS: PANTOPRAZOLE 40MG TAB (PROTONIX) PO SCH (09:19)
[2018-08-23] MEDS: ASPIRIN 81 MG ENTERIC TAB PO SCH (09:19)
[2018-08-23] MEDS: predniSONE 20 MG TAB PO SCH (09:19)
[2018-08-23] MEDS: LEVEMIR (INSULIN DETEMIR) 1 UNITS/0.01ML SC SCH (09:24)
[2018-08-23 09:30] LABS: CALCIUM LEVEL 8.8 MG/DL (8.8-10.2); CREATININE FOR GFR 0.97 MG/DL (0.55-1.30); GLOMERULAR FILTRATION RATE 58.1 (>32); POTASSIUM SERUM 3.8 MEQ/L (3.5-5.1)
[2018-08-23] MEDS: LEVALBUTEROL 1.25 MG/0.5 ML CONCENTRATE NEB INH PRN ×2 (10:56→15:04)
--- NOTE | 2018-08-23 16:44 | REP ---
Clinical: Trauma. Fall. Technique: AP view of the pelvis with neutral and frog lateral views of the right and left hip. Findings: Symmetric age-related degenerative changes are appreciated. No acute fracture or dislocation. Impression: No acute fracture or dislocation. Electronically Signed by Jacobo Martinez MD 08/23/2018 04:36 P
[2018-08-23] MEDS: ALPRAZolam 0.25 MG TAB PO PRN (16:46)
[2018-08-24 06:00] VITALS: BP 131/71
[2018-08-24] MEDS: HEPARIN SOD (PORCINE) 5000 UNITS/ML VIAL SQ SCH ×3 (06:00→22:00)
[2018-08-24] MEDS: HumaLOG INSULIN (NovoLOG) PER UNIT SC SCH ×7 (07:30→21:54)
[2018-08-24] MEDS: TIOTROPIUM INHALER/CAPSULE (SPIRIVA) INH SCH (09:12)
[2018-08-24] MEDS: SYMBICORT 160/4.5MCG INHALER 6GM INH SCH ×2 (09:13→19:50)
[2018-08-24] MEDS: LEVEMIR (INSULIN DETEMIR) 1 UNITS/0.01ML SC SCH ×2 (10:19→14:13)
[2018-08-24] MEDS: ASPIRIN 81 MG ENTERIC TAB PO SCH (10:20)
[2018-08-24] MEDS: FUROSEMIDE 40 MG TAB PO SCH ×2 (10:20→17:00)
[2018-08-24] MEDS: ALPRAZolam 0.25 MG TAB PO PRN ×2 (10:20→21:50)
[2018-08-24] MEDS: PANTOPRAZOLE 40MG TAB (PROTONIX) PO SCH (10:20)
[2018-08-24] MEDS: ATORVASTATIN 10 MG TAB PO SCH (10:21)
[2018-08-24] MEDS: predniSONE 20 MG TAB PO SCH (10:21)
[2018-08-24] MEDS: BACTRIM 160MG/800MG DS TAB PO SCH (10:22)
[2018-08-24] MEDS: LEVALBUTEROL 1.25 MG/0.5 ML CONCENTRATE NEB INH PRN (19:50)
[2018-08-25] MEDS: HEPARIN SOD (PORCINE) 5000 UNITS/ML VIAL SQ SCH ×3 (05:19→21:19)
[2018-08-25 06:00] VITALS: BP 136/61
[2018-08-25] MEDS: HumaLOG INSULIN (NovoLOG) PER UNIT SC SCH ×4 (07:30→20:32)
[2018-08-25] MEDS: SYMBICORT 160/4.5MCG INHALER 6GM INH SCH ×2 (07:43→19:58)
[2018-08-25] MEDS: TIOTROPIUM INHALER/CAPSULE (SPIRIVA) INH SCH (07:44)
[2018-08-25 09:07] LABS: BASO # 0.1 10^3/uL (0.0-0.2); BASO % 0.5 % (0.0-1.0); EOS % 0.4 % (0.0-3.0); HEMATOCRIT 28.7 % (36.0-47.0); LYMPH # 1.2 10^3/uL (1.5-4.5); LYMPH % 13.1 % (24.0-44.0); MEAN CORPUSCULAR HEMOGLOBIN 29.1 pg (27.0-33.0); MEAN CORPUSCULAR HGB CONC 31.4 g/dl (32.0-36.5); MEAN CORPUSCULAR VOLUME 92.9 fl (80.0-96.0); MONO # 0.7 10^3/uL (0.0-0.8); MONO % 7.2 % (0.0-5.0); NEUTROPHILS # 7.2 10^3/uL (1.8-7.7); NEUTROPHILS % 76.5 % (36.0-66.0); PLATELET COUNT, AUTOMATED 437 10^3/uL (150-450); RED BLOOD COUNT 3.09 10^6/uL (4.00-5.40); WHITE BLOOD COUNT 9.4 10^3/uL (4.0-10.0)
[2018-08-25] MEDS: predniSONE 20 MG TAB PO SCH (09:16)
[2018-08-25] MEDS: PANTOPRAZOLE 40MG TAB (PROTONIX) PO SCH (09:16)
[2018-08-25] MEDS: FUROSEMIDE 40 MG TAB PO SCH ×2 (09:17→17:05)
[2018-08-25] MEDS: ASPIRIN 81 MG ENTERIC TAB PO SCH (09:17)
[2018-08-25] MEDS: ATORVASTATIN 10 MG TAB PO SCH (09:20)
[2018-08-25] MEDS: LEVEMIR (INSULIN DETEMIR) 1 UNITS/0.01ML SC SCH (09:20)
[2018-08-25 09:29] LABS: BLOOD UREA NITROGEN 24 MG/DL (7-18); CARBON DIOXIDE LEVEL 34 MEQ/L (21-32); CHLORIDE LEVEL 97 MEQ/L (98-107); GLOMERULAR FILTRATION RATE > 60.0 (>32); GLUCOSE, FASTING 162 MG/DL (70-100); MAGNESIUM LEVEL 2.2 MG/DL (1.8-2.4); POTASSIUM SERUM 3.4 MEQ/L (3.5-5.1); SODIUM LEVEL 139 MEQ/L (136-145)
[2018-08-25] MEDS: LEVALBUTEROL 1.25 MG/0.5 ML CONCENTRATE NEB INH PRN ×3 (13:24→23:31)
[2018-08-26 00:05] VITALS: BP 135/61
[2018-08-26] MEDS: LEVALBUTEROL 1.25 MG/0.5 ML CONCENTRATE NEB INH PRN ×4 (04:54→21:48)
[2018-08-26] MEDS: HEPARIN SOD (PORCINE) 5000 UNITS/ML VIAL SQ SCH ×3 (05:09→20:54)
[2018-08-26 06:00] VITALS: BP_SYST 153; BP_DIAS 133; BP_DIAS 73
[2018-08-26] MEDS: SYMBICORT 160/4.5MCG INHALER 6GM INH SCH ×2 (08:40→19:20)
[2018-08-26] MEDS: TIOTROPIUM INHALER/CAPSULE (SPIRIVA) INH SCH (08:40)
[2018-08-26] MEDS: ATORVASTATIN 10 MG TAB PO SCH (09:00)
[2018-08-26] MEDS ORDERED: POTASSIUM CHLORIDE 10 MEQ SR TABLET PO ONE (09:00)
[2018-08-26] MEDS: FUROSEMIDE 40 MG TAB PO SCH ×2 (11:00→18:14)
[2018-08-26] MEDS: LEVEMIR (INSULIN DETEMIR) 1 UNITS/0.01ML SC SCH (11:01)
[2018-08-26] MEDS: ASPIRIN 81 MG ENTERIC TAB PO SCH (11:01)
[2018-08-26] MEDS: ALPRAZolam 0.25 MG TAB PO PRN ×2 (11:01→18:14)
[2018-08-26] MEDS: predniSONE 20 MG TAB PO SCH (11:01)
[2018-08-26] MEDS: PANTOPRAZOLE 40MG TAB (PROTONIX) PO SCH (11:01)
[2018-08-26] MEDS: HumaLOG INSULIN (NovoLOG) PER UNIT SC SCH ×4 (11:02→20:54)
[2018-08-26 15:28] VITALS: BP 109/56
[2018-08-27] MEDS: LEVALBUTEROL 1.25 MG/0.5 ML CONCENTRATE NEB INH PRN ×3 (03:05→22:00)
[2018-08-27] MEDS: HEPARIN SOD (PORCINE) 5000 UNITS/ML VIAL SQ SCH ×3 (05:29→21:28)
[2018-08-27 06:00] VITALS: BP 125/65
[2018-08-27] MEDS: TIOTROPIUM INHALER/CAPSULE (SPIRIVA) INH SCH (07:26)
[2018-08-27] MEDS: SYMBICORT 160/4.5MCG INHALER 6GM INH SCH ×2 (07:27→22:03)
[2018-08-27] MEDS: PANTOPRAZOLE 40MG TAB (PROTONIX) PO SCH ×2 (09:00→13:20)
[2018-08-27] MEDS: ATORVASTATIN 10 MG TAB PO SCH (09:00)
[2018-08-27] MEDS: ALPRAZolam 0.25 MG TAB PO PRN ×2 (09:55→17:18)
[2018-08-27] MEDS: predniSONE 20 MG TAB PO SCH (09:55)
[2018-08-27] MEDS: BACTRIM 160MG/800MG DS TAB PO SCH (09:55)
[2018-08-27] MEDS: ASPIRIN 81 MG ENTERIC TAB PO SCH (09:56)
[2018-08-27] MEDS: FUROSEMIDE 40 MG TAB PO SCH ×2 (09:56→17:18)
[2018-08-27] MEDS: HumaLOG INSULIN (NovoLOG) PER UNIT SC SCH ×4 (09:57→20:32)
[2018-08-27] MEDS: LEVEMIR (INSULIN DETEMIR) 1 UNITS/0.01ML SC SCH (09:58)
[2018-08-27 10:00] VITALS: BP 146/67
[2018-08-28] MEDS: LEVALBUTEROL 1.25 MG/0.5 ML CONCENTRATE NEB INH PRN (03:44)
[2018-08-28] MEDS: HEPARIN SOD (PORCINE) 5000 UNITS/ML VIAL SQ SCH ×3 (05:04→20:14)
[2018-08-28 06:00] VITALS: BP 133/79
[2018-08-28] MEDS: PANTOPRAZOLE 40MG TAB (PROTONIX) PO SCH (09:00)
[2018-08-28] MEDS: ATORVASTATIN 10 MG TAB PO SCH (09:00)
[2018-08-28] MEDS: HumaLOG INSULIN (NovoLOG) PER UNIT SC SCH ×4 (09:00→20:42)
[2018-08-28] MEDS: ASPIRIN 81 MG ENTERIC TAB PO SCH (09:45)
[2018-08-28] MEDS: predniSONE 20 MG TAB PO SCH (09:46)
[2018-08-28] MEDS: FUROSEMIDE 40 MG TAB PO SCH ×2 (09:46→18:05)
[2018-08-28] MEDS: SYMBICORT 160/4.5MCG INHALER 6GM INH SCH ×2 (10:08→21:40)
[2018-08-28] MEDS: TIOTROPIUM INHALER/CAPSULE (SPIRIVA) INH SCH (10:09)
[2018-08-28] MEDS: LEVEMIR (INSULIN DETEMIR) 1 UNITS/0.01ML SC SCH (12:28)
[2018-08-29] MEDS: LEVALBUTEROL 1.25 MG/0.5 ML CONCENTRATE NEB INH PRN ×3 (03:56→21:39)
[2018-08-29] MEDS: HEPARIN SOD (PORCINE) 5000 UNITS/ML VIAL SQ SCH ×3 (05:07→21:30)
[2018-08-29 06:00] VITALS: BP 146/65
[2018-08-29] MEDS: HumaLOG INSULIN (NovoLOG) PER UNIT SC SCH ×4 (07:30→21:30)
[2018-08-29] MEDS: ASPIRIN 81 MG ENTERIC TAB PO SCH (08:06)
[2018-08-29] MEDS: predniSONE 20 MG TAB PO SCH (08:23)
[2018-08-29] MEDS: LEVEMIR (INSULIN DETEMIR) 1 UNITS/0.01ML SC SCH (08:23)
[2018-08-29] MEDS: BACTRIM 160MG/800MG DS TAB PO SCH (08:23)
[2018-08-29] MEDS: FUROSEMIDE 40 MG TAB PO SCH ×2 (08:24→16:19)
[2018-08-29] MEDS: TIOTROPIUM INHALER/CAPSULE (SPIRIVA) INH SCH (08:42)
[2018-08-29] MEDS: SYMBICORT 160/4.5MCG INHALER 6GM INH SCH ×2 (08:42→21:39)
[2018-08-29 08:55] LABS: HEMATOCRIT 28.6 % (36.0-47.0); HEMOGLOBIN 8.7 g/dl (12.0-15.5); MEAN CORPUSCULAR HEMOGLOBIN 28.4 pg (27.0-33.0); MEAN CORPUSCULAR HGB CONC 30.4 g/dl (32.0-36.5); MEAN CORPUSCULAR VOLUME 93.5 fl (80.0-96.0); PLATELET COUNT, AUTOMATED 426 10^3/uL (150-450); RED BLOOD COUNT 3.06 10^6/uL (4.00-5.40); WHITE BLOOD COUNT 10.4 10^3/uL (4.0-10.0)
--- NOTE | 2018-08-29 08:55 | IPNPDOC ---
Date Seen The patient was seen on 08/29/18. Progress Note SUBJECTIVE: 83 yo female seen at bedside eating breakfast. No specific complaints and feels her breathing and leg swelling are about the same (baseline) No overnight or nursing issues reported. Voiding fine and no constipation/diarrhea. Denies: f/c/r, n/v/d, CP, productive cough/sputum/hemoptysis. OBJECTIVE PHYSICAL EXAMINATION: VITAL SIGNS: Please see below. GENERAL: Frail disheveled elderly female sitting in bed and in no acute distress. She is awake alert oriented 3 speak in complete sentences with no accessory muscle use HEENT: Pupils are equally round reactive to light she has moist mucous membranes mild elevation in her CVP CARDIOVASCULAR: S1-S2 regular. RESPIRATORY: Fairly Good air movement diminished breath sounds at the bases with a prolonged expiratory phase and audible wheezes some scattered bibasilar Rales. ABDOMINAL: Bowel sounds present abdomen soft and nontender EXTREMITIES: To maybe 1+ edema bilaterally LABORATORY DATA, IMAGING STUDIES, MICROBIOLOGY: Please see below. ASSESSMENT AND PLAN: This is a 83-year-old female with chroic shortness of breath. 1. Shortness of breath with chronic hypoxic respiratory failure secondary to chronic COPD: She has a history of chronic volume overload and is maintained on Lasix. Continue on baseline 2 L of oxygen. Continued on Spiriva and Symbicort Xopenex Mucinex and prednisone. Given her chronic high-dose steroid requirement I will start her on PCP prophylaxis with Bactrim. PFS appreciated 2. Urinary Tract Infection: Resolved after completion of a course of therapy 3. h/o HCAP: Resolved she's completed a course of therapy 4. DM2 - c/w SSI and Levemir 5 units qAM patient is only intermittently compliant even in hospital extensive time spent bedside counseling the patient regarding the importance of taking insulin 5. Hx of LLE DVT: Not on any anticoagulation, no current issues with calf swelling or tenderness. 6. Hx of TIA: c/w ASA, refuses statin 7. Normocytic anemia: Chronic and stable 8. Hx of Nephrectomy: Chronic and stable 9. Anxiety: c/w Alprazolam 10.CAD s/p stent: c/w ASA refuses statin not on any beta yaw likely related to her pulmonary disease 11. Gastroesophageal reflux disease: c/w Omeprazole DVT prophylaxis: SQ Heparin Disposition: PFS / Case management looking into long-term placement options For now she remains SNF status. VS, I&O, 24H, Fishbone Vital Signs/I&O Vital Signs Date Time Temp Pulse Resp B/P (MAP) Pulse Ox O2 Delivery O2 Flow Rate FiO2 08/29/18 06:00 97.8 88 20 146/65 (92) 100 Nasal Cannula 2.0 I&O- Last 24 Hours up to 6 AM 08/29/18 06:00 Intake Total 890 ml Output Total 1400 ml Balance -510 ml Laboratory Data 24H LABS Laboratory Tests 2 08/28/18 11:28: Bedside Glucose (Misc Panel) 304H 08/28/18 17:24: Bedside Glucose (Misc Panel) 193H 08/28/18 20:17: Bedside Glucose (Misc Panel) 167H 08/29/18 07:49: Bedside Glucose (Misc Panel) 109 08/29/18 08:33: CBC/BMP SANDRA CROWE DO Aug 29, 2018 08:55
[2018-08-29 09:09] LABS: BLOOD UREA NITROGEN 25 MG/DL (7-18); CALCIUM LEVEL 8.8 MG/DL (8.8-10.2); CARBON DIOXIDE LEVEL 37 MEQ/L (21-32); CHLORIDE LEVEL 95 MEQ/L (98-107); CREATININE FOR GFR 0.88 MG/DL (0.55-1.30); GLOMERULAR FILTRATION RATE > 60.0 (>32); GLUCOSE, FASTING 167 MG/DL (70-100); POTASSIUM SERUM 3.2 MEQ/L (3.5-5.1); SODIUM LEVEL 138 MEQ/L (136-145)
[2018-08-29] MEDS: ALPRAZolam 0.25 MG TAB PO PRN (14:25)
[2018-08-30] MEDS: HEPARIN SOD (PORCINE) 5000 UNITS/ML VIAL SQ SCH ×3 (05:01→20:54)
[2018-08-30 06:00] VITALS: BP 132/61
[2018-08-30] MEDS: HumaLOG INSULIN (NovoLOG) PER UNIT SC SCH ×5 (07:30→20:57)
[2018-08-30] MEDS: SYMBICORT 160/4.5MCG INHALER 6GM INH SCH ×2 (07:40→20:06)
[2018-08-30] MEDS: TIOTROPIUM INHALER/CAPSULE (SPIRIVA) INH SCH (07:40)
[2018-08-30] MEDS: LEVEMIR (INSULIN DETEMIR) 1 UNITS/0.01ML SC SCH (09:00)
[2018-08-30] MEDS: PANTOPRAZOLE 40MG TAB (PROTONIX) PO SCH (09:00)
[2018-08-30] MEDS: FUROSEMIDE 40 MG TAB PO SCH ×3 (09:00→17:00)
[2018-08-30] MEDS: ATORVASTATIN 10 MG TAB PO SCH (10:52)
[2018-08-30] MEDS: predniSONE 20 MG TAB PO SCH (10:52)
[2018-08-30] MEDS: ASPIRIN 81 MG ENTERIC TAB PO SCH (10:52)
[2018-08-30] MEDS: LEVALBUTEROL 1.25 MG/0.5 ML CONCENTRATE NEB INH PRN ×2 (12:44→20:06)
[2018-08-31] MEDS: HEPARIN SOD (PORCINE) 5000 UNITS/ML VIAL SQ SCH ×3 (04:59→20:45)
[2018-08-31 06:00] VITALS: BP 138/65
[2018-08-31] MEDS: TIOTROPIUM INHALER/CAPSULE (SPIRIVA) INH SCH (07:30)
[2018-08-31] MEDS: SYMBICORT 160/4.5MCG INHALER 6GM INH SCH ×2 (07:30→20:02)
[2018-08-31] MEDS: HumaLOG INSULIN (NovoLOG) PER UNIT SC SCH ×4 (07:32→20:39)
[2018-08-31] MEDS: PANTOPRAZOLE 40MG TAB (PROTONIX) PO SCH ×2 (07:32→09:37)
[2018-08-31] MEDS: ATORVASTATIN 10 MG TAB PO SCH (07:32)
[2018-08-31] MEDS: FUROSEMIDE 40 MG TAB PO SCH ×2 (09:37→17:36)
[2018-08-31] MEDS: LEVEMIR (INSULIN DETEMIR) 1 UNITS/0.01ML SC SCH (09:37)
[2018-08-31] MEDS: ASPIRIN 81 MG ENTERIC TAB PO SCH (09:37)
[2018-08-31] MEDS: predniSONE 20 MG TAB PO SCH (09:37)
[2018-08-31] MEDS: BACTRIM 160MG/800MG DS TAB PO SCH (09:38)
[2018-08-31] MEDS: LEVALBUTEROL 1.25 MG/0.5 ML CONCENTRATE NEB INH PRN ×2 (16:45→20:02)
[2018-09-01] MEDS: LEVALBUTEROL 1.25 MG/0.5 ML CONCENTRATE NEB INH PRN ×2 (05:33→14:24)
[2018-09-01] MEDS: HEPARIN SOD (PORCINE) 5000 UNITS/ML VIAL SQ SCH ×3 (05:46→21:32)
[2018-09-01 06:00] VITALS: BP 133/79
[2018-09-01] MEDS: HumaLOG INSULIN (NovoLOG) PER UNIT SC SCH ×4 (07:30→21:18)
[2018-09-01] MEDS: TIOTROPIUM INHALER/CAPSULE (SPIRIVA) INH SCH (08:12)
[2018-09-01] MEDS: SYMBICORT 160/4.5MCG INHALER 6GM INH SCH ×2 (08:13→21:00)
[2018-09-01] MEDS: predniSONE 20 MG TAB PO SCH (08:47)
[2018-09-01] MEDS: ATORVASTATIN 10 MG TAB PO SCH (08:48)
[2018-09-01] MEDS: ASPIRIN 81 MG ENTERIC TAB PO SCH (08:48)
[2018-09-01] MEDS: FUROSEMIDE 40 MG TAB PO SCH ×2 (08:48→16:58)
[2018-09-01] MEDS: LEVEMIR (INSULIN DETEMIR) 1 UNITS/0.01ML SC SCH (08:50)
[2018-09-02] MEDS: LEVALBUTEROL 1.25 MG/0.5 ML CONCENTRATE NEB INH PRN ×4 (00:20→18:00)
[2018-09-02 06:00] VITALS: BP 135/62
[2018-09-02] MEDS: HEPARIN SOD (PORCINE) 5000 UNITS/ML VIAL SQ SCH ×3 (06:02→22:09)
[2018-09-02] MEDS: HumaLOG INSULIN (NovoLOG) PER UNIT SC SCH ×4 (07:30→21:37)
[2018-09-02] MEDS: predniSONE 20 MG TAB PO SCH (08:42)
[2018-09-02] MEDS: FUROSEMIDE 40 MG TAB PO SCH ×3 (08:42→17:00)
[2018-09-02] MEDS: ASPIRIN 81 MG ENTERIC TAB PO SCH (08:42)
[2018-09-02] MEDS: ATORVASTATIN 10 MG TAB PO SCH (08:42)
[2018-09-02] MEDS: PANTOPRAZOLE 40MG TAB (PROTONIX) PO SCH (08:43)
[2018-09-02] MEDS: LEVEMIR (INSULIN DETEMIR) 1 UNITS/0.01ML SC SCH (08:43)
[2018-09-02] MEDS: TIOTROPIUM INHALER/CAPSULE (SPIRIVA) INH SCH (14:22)
[2018-09-02] MEDS: SYMBICORT 160/4.5MCG INHALER 6GM INH SCH ×2 (14:23→20:16)
[2018-09-02] MEDS: ALPRAZolam 0.25 MG TAB PO PRN (19:09)
[2018-09-03 05:00] VITALS: BP 140/70
[2018-09-03] MEDS: HEPARIN SOD (PORCINE) 5000 UNITS/ML VIAL SQ SCH ×3 (05:48→20:44)
[2018-09-03 06:00] VITALS: BP 146/64
[2018-09-03] MEDS: HumaLOG INSULIN (NovoLOG) PER UNIT SC SCH ×4 (07:27→20:44)
[2018-09-03] MEDS: SYMBICORT 160/4.5MCG INHALER 6GM INH SCH ×2 (07:33→19:50)
[2018-09-03] MEDS: TIOTROPIUM INHALER/CAPSULE (SPIRIVA) INH SCH (07:33)
[2018-09-03] MEDS: BACTRIM 160MG/800MG DS TAB PO SCH (07:41)
[2018-09-03] MEDS: ATORVASTATIN 10 MG TAB PO SCH (07:42)
[2018-09-03] MEDS: predniSONE 20 MG TAB PO SCH (07:42)
[2018-09-03] MEDS: FUROSEMIDE 40 MG TAB PO SCH ×2 (07:42→17:30)
[2018-09-03] MEDS: PANTOPRAZOLE 40MG TAB (PROTONIX) PO SCH (07:42)
[2018-09-03] MEDS: ASPIRIN 81 MG ENTERIC TAB PO SCH (07:42)
[2018-09-03] MEDS: ALPRAZolam 0.25 MG TAB PO PRN ×2 (07:43→15:08)
[2018-09-03] MEDS: LEVEMIR (INSULIN DETEMIR) 1 UNITS/0.01ML SC SCH (07:45)
[2018-09-03] MEDS: LEVALBUTEROL 1.25 MG/0.5 ML CONCENTRATE NEB INH PRN ×2 (15:00→19:50)
[2018-09-04] MEDS: HEPARIN SOD (PORCINE) 5000 UNITS/ML VIAL SQ SCH ×3 (05:50→20:47)
[2018-09-04 06:00] VITALS: BP 138/63
[2018-09-04] MEDS: SYMBICORT 160/4.5MCG INHALER 6GM INH SCH ×2 (07:10→19:09)
[2018-09-04] MEDS: TIOTROPIUM INHALER/CAPSULE (SPIRIVA) INH SCH (07:10)
[2018-09-04] MEDS: HumaLOG INSULIN (NovoLOG) PER UNIT SC SCH ×5 (07:30→20:50)
[2018-09-04] MEDS: PANTOPRAZOLE 40MG TAB (PROTONIX) PO SCH (09:00)
[2018-09-04] MEDS: LEVEMIR (INSULIN DETEMIR) 1 UNITS/0.01ML SC SCH (09:00)
[2018-09-04] MEDS: ATORVASTATIN 10 MG TAB PO SCH (09:00)
[2018-09-04] MEDS: predniSONE 20 MG TAB PO SCH (09:15)
[2018-09-04] MEDS: ASPIRIN 81 MG ENTERIC TAB PO SCH (09:15)
[2018-09-04] MEDS: FUROSEMIDE 40 MG TAB PO SCH ×2 (09:16→17:00)
[2018-09-04 09:51] LABS: HEMATOCRIT 24.6 % (36.0-47.0); HEMOGLOBIN 7.5 g/dl (12.0-15.5); MEAN CORPUSCULAR HEMOGLOBIN 28.7 pg (27.0-33.0); MEAN CORPUSCULAR HGB CONC 30.5 g/dl (32.0-36.5); MEAN CORPUSCULAR VOLUME 94.3 fl (80.0-96.0); PLATELET COUNT, AUTOMATED 414 10^3/uL (150-450); RED BLOOD COUNT 2.61 10^6/uL (4.00-5.40)
[2018-09-04 10:09] LABS: BLOOD UREA NITROGEN 22 MG/DL (7-18); CALCIUM LEVEL 8.7 MG/DL (8.8-10.2); CARBON DIOXIDE LEVEL 37 MEQ/L (21-32); CHLORIDE LEVEL 98 MEQ/L (98-107); CREATININE FOR GFR 0.74 MG/DL (0.55-1.30); GLOMERULAR FILTRATION RATE > 60.0 (>32); GLUCOSE, FASTING 117 MG/DL (70-100); POTASSIUM SERUM 3.4 MEQ/L (3.5-5.1); SODIUM LEVEL 139 MEQ/L (136-145)
[2018-09-04] MEDS: LEVALBUTEROL 1.25 MG/0.5 ML CONCENTRATE NEB INH PRN ×2 (10:59→20:58)
[2018-09-04] MEDS: ALPRAZolam 0.25 MG TAB PO PRN (12:57)
--- NOTE | 2018-09-04 16:35 | IPNPDOC ---
Date Seen The patient was seen on 09/04/18. Progress Note SUBJECTIVE: Patient complains of an ulcer on the heel of her right foot. It has been there for several days she admits that she is laying on it and applying a lot of consistent pressure on it not moving it denies fevers chills chest pain or any worsening of her chronic shortness of breath OBJECTIVE PHYSICAL EXAMINATION: VITAL SIGNS: Please see below. GENERAL: Frail disheveled elderly female lying in bed on her right side she does not appear to be in any acute distress she is awake alert oriented 3 speak in complete sentences with no accessory muscle use HEENT: Pupils are equally round reactive to light she has moist mucous membranes mild elevation in her CVP CARDIOVASCULAR: S1-S2 regular. RESPIRATORY: Fairly Good air movement diminished breath sounds at the bases with a prolonged expiratory phase and audible wheezes some scattered bibasilar Rales. ABDOMINAL: Bowel sounds present abdomen soft and nontender EXTREMITIES: No edema bilaterally LABORATORY DATA, IMAGING STUDIES, MICROBIOLOGY: Please see below. DVT prophylaxis ordered?: Heparin ASSESSMENT AND PLAN: This is a 83-year-old female with shortness of breath. 1. Shortness of breath-patient has chronic hypoxic respiratory failure secondary to chronic COPD at this time she is at her baseline respiratory status. The patient is currently awaiting placement she has remained medically stable for extended period of time. She is continued on her baseline 2 L of oxygen. She is continued on Spiriva and Symbicort Xopenex Mucinex and prednisone. Given her chronic high-dose steroid requirement I previously started her on PCP prophylaxis with Bactrim. PFS appreciated 2. Urinary Tract Infection: Resolved the patient completed a course of therapy 3. Recent treatment for HCAP: Resolved she's completed a course of therapy 4. DM2 - c/w ISS and Levemir 5 units qAM patient is only intermittently compliant even in hospital extensive time spent bedside counseling the patient regarding the importance of taking insulin 5. Hx of LLE DVT: Not on any anticoagulation 6. Hx of TIA: c/w ASA, refuses statin 7. Normocytic anemia: Chronic and stable continue to monitor we'll check labs today 8. Hx of Nephrectomy: Chronic and stable 9. Anxiety: c/w Alprazolam 10. CAD s/p stent: c/w ASA refuses statin not on any beta yaw likely related to her pulmonary disease 11. Gastroesophageal reflux disease: c/w Omeprazole 12. Congestive heart failure: Diastolic dysfunction she did have some decompensation earlier in her stay she appears we will consult at this time I'll decrease her diuretic dosing back to 40 twice a day 14. Pressure ulcer: Declined offers of foam dressing and offloading boots tells me she will offloaded herself she declines offers for wound care consult for further evaluation Disposition: - PFS / Case management looking into long-term placement options VS, I&O, 24H, Fishbone Vital Signs/I&O Vital Signs Date Time Temp Pulse Resp B/P (MAP) Pulse Ox O2 Delivery O2 Flow Rate FiO2 09/04/18 06:00 98.0 82 20 138/63 (88) 99 Nasal Cannula 2.0 I&O- Last 24 Hours up to 6 AM 09/04/18 05:59 Intake Total 1240 ml Output Total 1775 ml Balance -535 ml Laboratory Data 24H LABS Laboratory Tests 2 09/03/18 16:37: Bedside Glucose (Misc Panel) 366H 09/03/18 20:29: Bedside Glucose (Misc Panel) 102 09/04/18 05:36: Bedside Glucose (Misc Panel) 128H 09/04/18 09:29: Nucleated Red Blood Cells % (auto) 0.0, Anion Gap 4L, Glomerular Filtration Rate > 60.0, Blood Urea Nitrogen 22H, Creatinine 0.74, Sodium Level 139, Potassium Level 3.4L, Chloride Level 98, Carbon Dioxide Level 37H, Calcium Level 8.7L 09/04/18 11:39: Bedside Glucose (Misc Panel) 321H CBC/BMP Laboratory Tests 09/04/18 09:29 Red Blood Count 2.61 L, Mean Corpuscular Volume 94.3, Mean Corpuscular Hemoglobin 28.7, Mean Corpuscular Hemoglobin Concent 30.5 L, Red Cell Distribution Width 17.2 H, Calcium Level 8.7 L CHAD DE LA TORRE MD Sep 04, 2018 16:35
[2018-09-05] MEDS: HEPARIN SOD (PORCINE) 5000 UNITS/ML VIAL SQ SCH ×3 (05:03→21:49)
[2018-09-05] MEDS: LEVALBUTEROL 1.25 MG/0.5 ML CONCENTRATE NEB INH PRN ×4 (05:08→22:24)
[2018-09-05 06:00] VITALS: BP 142/61
[2018-09-05] MEDS: HumaLOG INSULIN (NovoLOG) PER UNIT SC SCH ×4 (07:30→20:12)
[2018-09-05] MEDS: TIOTROPIUM INHALER/CAPSULE (SPIRIVA) INH SCH (07:54)
[2018-09-05] MEDS: SYMBICORT 160/4.5MCG INHALER 6GM INH SCH ×2 (07:55→19:22)
[2018-09-05] MEDS: ATORVASTATIN 10 MG TAB PO SCH (09:00)
[2018-09-05] MEDS: LEVEMIR (INSULIN DETEMIR) 1 UNITS/0.01ML SC SCH (09:00)
[2018-09-05] MEDS: PANTOPRAZOLE 40MG TAB (PROTONIX) PO SCH (09:00)
[2018-09-05] MEDS: predniSONE 20 MG TAB PO SCH (09:10)
[2018-09-05] MEDS: BACTRIM 160MG/800MG DS TAB PO SCH (09:10)
[2018-09-05] MEDS: FUROSEMIDE 40 MG TAB PO SCH ×2 (09:10→17:42)
[2018-09-05] MEDS: ASPIRIN 81 MG ENTERIC TAB PO SCH (09:10)
[2018-09-05 12:06] LABS: MEAN CORPUSCULAR HEMOGLOBIN 28.8 pg (27.0-33.0); MEAN CORPUSCULAR HGB CONC 30.8 g/dl (32.0-36.5); MEAN CORPUSCULAR VOLUME 93.5 fl (80.0-96.0); PLATELET COUNT, AUTOMATED 452 10^3/uL (150-450); RED BLOOD COUNT 2.78 10^6/uL (4.00-5.40); WHITE BLOOD COUNT 10.8 10^3/uL (4.0-10.0)
[2018-09-06] MEDS: HEPARIN SOD (PORCINE) 5000 UNITS/ML VIAL SQ SCH ×3 (05:11→20:26)
[2018-09-06 06:00] VITALS: BP 143/68
[2018-09-06] MEDS: SYMBICORT 160/4.5MCG INHALER 6GM INH SCH ×2 (06:58→21:34)
[2018-09-06] MEDS: TIOTROPIUM INHALER/CAPSULE (SPIRIVA) INH SCH (06:58)
[2018-09-06] MEDS: HumaLOG INSULIN (NovoLOG) PER UNIT SC SCH ×4 (07:30→20:26)
[2018-09-06] MEDS: FUROSEMIDE 40 MG TAB PO SCH ×2 (09:00→17:00)
[2018-09-06] MEDS: predniSONE 20 MG TAB PO SCH (09:00)
[2018-09-06] MEDS: ATORVASTATIN 10 MG TAB PO SCH (09:00)
[2018-09-06] MEDS: LEVEMIR (INSULIN DETEMIR) 1 UNITS/0.01ML SC SCH (09:00)
[2018-09-06] MEDS: LEVALBUTEROL 1.25 MG/0.5 ML CONCENTRATE NEB INH PRN ×3 (10:17→23:14)
[2018-09-06] MEDS: PANTOPRAZOLE 40MG TAB (PROTONIX) PO SCH (11:00)
[2018-09-06] MEDS: ASPIRIN 81 MG ENTERIC TAB PO SCH (11:00)
[2018-09-06 14:00] VITALS: BP 127/60
[2018-09-07] MEDS: LEVALBUTEROL 1.25 MG/0.5 ML CONCENTRATE NEB INH PRN ×4 (03:20→23:17)
[2018-09-07] MEDS: HEPARIN SOD (PORCINE) 5000 UNITS/ML VIAL SQ SCH ×3 (05:38→22:00)
[2018-09-07 06:00] VITALS: BP 135/75
[2018-09-07] MEDS: HumaLOG INSULIN (NovoLOG) PER UNIT SC SCH ×5 (07:30→21:00)
[2018-09-07] MEDS: SYMBICORT 160/4.5MCG INHALER 6GM INH SCH ×2 (07:45→20:00)
[2018-09-07] MEDS: TIOTROPIUM INHALER/CAPSULE (SPIRIVA) INH SCH (07:45)
[2018-09-07] MEDS: LEVEMIR (INSULIN DETEMIR) 1 UNITS/0.01ML SC SCH ×2 (08:23→08:35)
[2018-09-07] MEDS: BACTRIM 160MG/800MG DS TAB PO SCH (08:24)
[2018-09-07] MEDS: ATORVASTATIN 10 MG TAB PO SCH (08:24)
[2018-09-07] MEDS: ALPRAZolam 0.25 MG TAB PO PRN (08:24)
[2018-09-07] MEDS: predniSONE 20 MG TAB PO SCH (08:24)
[2018-09-07] MEDS: PANTOPRAZOLE 40MG TAB (PROTONIX) PO SCH (08:24)
[2018-09-07] MEDS: ASPIRIN 81 MG ENTERIC TAB PO SCH (08:24)
[2018-09-07] MEDS: FUROSEMIDE 40 MG TAB PO SCH ×3 (08:24→18:04)
[2018-09-08] MEDS: LEVALBUTEROL 1.25 MG/0.5 ML CONCENTRATE NEB INH PRN ×3 (03:28→19:29)
[2018-09-08 06:00] VITALS: BP 135/60
[2018-09-08] MEDS: HEPARIN SOD (PORCINE) 5000 UNITS/ML VIAL SQ SCH ×3 (06:00→22:00)
[2018-09-08] MEDS: HumaLOG INSULIN (NovoLOG) PER UNIT SC SCH ×4 (06:43→21:00)
[2018-09-08] MEDS: TIOTROPIUM INHALER/CAPSULE (SPIRIVA) INH SCH (07:54)
[2018-09-08] MEDS: SYMBICORT 160/4.5MCG INHALER 6GM INH SCH ×2 (07:54→19:57)
[2018-09-08] MEDS: LEVEMIR (INSULIN DETEMIR) 1 UNITS/0.01ML SC SCH (09:00)
[2018-09-08] MEDS: FUROSEMIDE 40 MG TAB PO SCH ×3 (09:00→17:00)
[2018-09-08] MEDS: PANTOPRAZOLE 40MG TAB (PROTONIX) PO SCH (09:00)
[2018-09-08] MEDS: ASPIRIN 81 MG ENTERIC TAB PO SCH (10:02)
[2018-09-08] MEDS: ATORVASTATIN 10 MG TAB PO SCH (10:03)
[2018-09-08] MEDS: predniSONE 20 MG TAB PO SCH (10:03)
[2018-09-09 06:00] VITALS: BP 119/56
[2018-09-09] MEDS: HEPARIN SOD (PORCINE) 5000 UNITS/ML VIAL SQ SCH ×3 (06:00→21:01)
[2018-09-09] MEDS: HumaLOG INSULIN (NovoLOG) PER UNIT SC SCH ×4 (07:30→20:26)
[2018-09-09] MEDS: PANTOPRAZOLE 40MG TAB (PROTONIX) PO SCH (09:00)
[2018-09-09] MEDS: ATORVASTATIN 10 MG TAB PO SCH (09:00)
[2018-09-09] MEDS: LEVEMIR (INSULIN DETEMIR) 1 UNITS/0.01ML SC SCH (09:00)
[2018-09-09] MEDS: FUROSEMIDE 40 MG TAB PO SCH ×2 (09:00→13:07)
[2018-09-09] MEDS: TIOTROPIUM INHALER/CAPSULE (SPIRIVA) INH SCH (09:35)
[2018-09-09] MEDS: SYMBICORT 160/4.5MCG INHALER 6GM INH SCH ×2 (09:35→21:01)
[2018-09-09] MEDS: LEVALBUTEROL 1.25 MG/0.5 ML CONCENTRATE NEB INH PRN ×3 (09:36→21:01)
[2018-09-09] MEDS: predniSONE 20 MG TAB PO SCH (10:37)
[2018-09-09] MEDS: ASPIRIN 81 MG ENTERIC TAB PO SCH (10:37)
[2018-09-09] MEDS: ALPRAZolam 0.25 MG TAB PO PRN (13:06)
[2018-09-10] MEDS: LEVALBUTEROL 1.25 MG/0.5 ML CONCENTRATE NEB INH PRN ×4 (02:43→15:53)
[2018-09-10] MEDS: HEPARIN SOD (PORCINE) 5000 UNITS/ML VIAL SQ SCH ×3 (05:23→20:51)
[2018-09-10 06:00] VITALS: BP 150/65
[2018-09-10] MEDS: SYMBICORT 160/4.5MCG INHALER 6GM INH SCH ×2 (07:08→20:39)
[2018-09-10] MEDS: TIOTROPIUM INHALER/CAPSULE (SPIRIVA) INH SCH (07:08)
[2018-09-10 07:13] LABS: HEMATOCRIT 25.9 % (36.0-47.0); HEMOGLOBIN 7.6 g/dl (12.0-15.5); MEAN CORPUSCULAR HEMOGLOBIN 27.1 pg (27.0-33.0); MEAN CORPUSCULAR HGB CONC 29.3 g/dl (32.0-36.5); MEAN CORPUSCULAR VOLUME 92.5 fl (80.0-96.0); PLATELET COUNT, AUTOMATED 509 10^3/uL (150-450); WHITE BLOOD COUNT 10.5 10^3/uL (4.0-10.0)
[2018-09-10 07:18] LABS: BLOOD UREA NITROGEN 21 MG/DL (7-18); CALCIUM LEVEL 8.8 MG/DL (8.8-10.2); CARBON DIOXIDE LEVEL 34 MEQ/L (21-32); CHLORIDE LEVEL 101 MEQ/L (98-107); CREATININE FOR GFR 0.67 MG/DL (0.55-1.30); GLOMERULAR FILTRATION RATE > 60.0 (>32); GLUCOSE, FASTING 100 MG/DL (70-100); POTASSIUM SERUM 3.7 MEQ/L (3.5-5.1); SODIUM LEVEL 140 MEQ/L (136-145)
[2018-09-10] MEDS: HumaLOG INSULIN (NovoLOG) PER UNIT SC SCH ×4 (07:30→20:50)
[2018-09-10] MEDS: predniSONE 20 MG TAB PO SCH (08:01)
[2018-09-10] MEDS: FUROSEMIDE 40 MG TAB PO SCH ×2 (08:01→16:43)
[2018-09-10] MEDS: ASPIRIN 81 MG ENTERIC TAB PO SCH (08:01)
[2018-09-10] MEDS: ALPRAZolam 0.25 MG TAB PO PRN (08:02)
[2018-09-10] MEDS: LEVEMIR (INSULIN DETEMIR) 1 UNITS/0.01ML SC SCH (08:05)
[2018-09-10] MEDS: BACTRIM 160MG/800MG DS TAB PO SCH (08:10)
[2018-09-10] MEDS: PANTOPRAZOLE 40MG TAB (PROTONIX) PO SCH (08:11)
[2018-09-10] MEDS: ATORVASTATIN 10 MG TAB PO SCH (08:11)
[2018-09-11] MEDS: HEPARIN SOD (PORCINE) 5000 UNITS/ML VIAL SQ SCH ×3 (05:16→22:00)
[2018-09-11 06:00] VITALS: BP 130/63
[2018-09-11] MEDS: HumaLOG INSULIN (NovoLOG) PER UNIT SC SCH ×4 (07:41→21:00)
[2018-09-11] MEDS: LEVEMIR (INSULIN DETEMIR) 1 UNITS/0.01ML SC SCH (07:42)
[2018-09-11] MEDS: SYMBICORT 160/4.5MCG INHALER 6GM INH SCH ×2 (08:35→21:06)
[2018-09-11] MEDS: TIOTROPIUM INHALER/CAPSULE (SPIRIVA) INH SCH (08:35)
[2018-09-11] MEDS: ATORVASTATIN 10 MG TAB PO SCH (10:22)
[2018-09-11] MEDS: PANTOPRAZOLE 40MG TAB (PROTONIX) PO SCH (10:22)
[2018-09-11] MEDS: LEVALBUTEROL 1.25 MG/0.5 ML CONCENTRATE NEB INH PRN ×2 (11:00→15:15)
[2018-09-11] MEDS: predniSONE 20 MG TAB PO SCH (11:25)
[2018-09-11] MEDS: ASPIRIN 81 MG ENTERIC TAB PO SCH (11:25)
[2018-09-11] MEDS: FUROSEMIDE 40 MG TAB PO SCH ×2 (11:25→17:30)
[2018-09-11 14:54] LABS: HEMATOCRIT 26.4 % (36.0-47.0); HEMOGLOBIN 8.1 g/dl (12.0-15.5); MEAN CORPUSCULAR HEMOGLOBIN 28.4 pg (27.0-33.0); MEAN CORPUSCULAR HGB CONC 30.7 g/dl (32.0-36.5); MEAN CORPUSCULAR VOLUME 92.6 fl (80.0-96.0); PLATELET COUNT, AUTOMATED 527 10^3/uL (150-450); RED BLOOD COUNT 2.85 10^6/uL (4.00-5.40); WHITE BLOOD COUNT 12.4 10^3/uL (4.0-10.0)
[2018-09-12 06:00] VITALS: BP 151/67
[2018-09-12] MEDS: HEPARIN SOD (PORCINE) 5000 UNITS/ML VIAL SQ SCH ×3 (06:00→22:00)
[2018-09-12] MEDS: HumaLOG INSULIN (NovoLOG) PER UNIT SC SCH ×4 (07:30→21:00)
[2018-09-12] MEDS: SYMBICORT 160/4.5MCG INHALER 6GM INH SCH ×2 (07:35→20:45)
[2018-09-12] MEDS: TIOTROPIUM INHALER/CAPSULE (SPIRIVA) INH SCH (07:35)
[2018-09-12] MEDS: LEVEMIR (INSULIN DETEMIR) 1 UNITS/0.01ML SC SCH (08:17)
[2018-09-12] MEDS: FUROSEMIDE 40 MG TAB PO SCH ×2 (09:00→17:00)
[2018-09-12] MEDS: ATORVASTATIN 10 MG TAB PO SCH (09:00)
[2018-09-12] MEDS: PANTOPRAZOLE 40MG TAB (PROTONIX) PO SCH (09:00)
[2018-09-12] MEDS: BACTRIM 160MG/800MG DS TAB PO SCH (10:36)
[2018-09-12] MEDS: ASPIRIN 81 MG ENTERIC TAB PO SCH (10:36)
[2018-09-12] MEDS: predniSONE 20 MG TAB PO SCH (10:36)
--- NOTE | 2018-09-12 11:28 | IPNPDOC ---
Date Seen The patient was seen on 09/12/18. Progress Note SUBJECTIVE: 83 yo female seen at bedside eating breakfast. No specific complaints and feels her breathing and leg swelling are about the same (baseline) No overnight or nursing issues reported. Voiding fine and no constipation/diarrhea. Denies: f/c/r, n/v/d, CP, productive cough/sputum/hemoptysis. OBJECTIVE PHYSICAL EXAMINATION: VITAL SIGNS: Please see below. GENERAL: Frail, disheveled, but awake and alert in NAD HEENT: PERRLA, throat clear, neck supple CARDIOVASCULAR: RRR RESPIRATORY: diminished bibasilar breath sounds, occasional expiratory wheeze that clears with cough. ABDOMINAL: Bowel sounds present abdomen soft and nontender EXTREMITIES: To maybe 1+ edema bilaterally LABORATORY DATA, IMAGING STUDIES, MICROBIOLOGY: Please see below. ASSESSMENT AND PLAN: This is a 83-year-old female with chronic shortness of breath. 1. Shortness of breath with chronic hypoxic respiratory failure secondary to COPD: H/o volume overload and maintained on Lasix. Remains on baseline 2 L of oxygen. Continued Spiriva and Symbicort Xopenex Mucinex and prednisone. Given her chronic high-dose steroid requirement; continue PCP prophylaxis with Bactrim. PFS input regarding placement appreciated 2. Urinary Tract Infection: Resolved after completion of a course of therapy, no further issues. 3. h/o HCAP: Resolved and previously completed a course of antibiotics 4. DM2: consistent carb diet FSBS AC/HS c/w Levemir / SSI w/hypoglycemic protocol 5. Hx of LLE DVT: Not on any anticoagulation, no current issues with calf swelling or tenderness. 6. Hx of TIA: c/w ASA, refuses statin 7. Normocytic anemia: Chronic and stable 8. Hx of Nephrectomy: Chronic and stable 9. Anxiety: c/w Alprazolam 10.CAD s/p stent: c/w ASA refuses statin not on any beta yaw likely related to her pulmonary disease 11. Gastroesophageal reflux disease: c/w Omeprazole DVT prophylaxis: SQ Heparin Disposition: PFS / Case management looking into long-term placement options For now she remains SNF status. LOS: unclear until placement is sorted out. VS, I&O, 24H, Fishbone Vital Signs/I&O Vital Signs Date Time Temp Pulse Resp B/P (MAP) Pulse Ox O2 Delivery O2 Flow Rate FiO2 09/12/18 06:00 97.7 76 17 151/67 (95) 100 Nasal Cannula 2.0 I&O- Last 24 Hours up to 6 AM 09/12/18 05:59 Intake Total 450 ml Output Total 450 ml Balance 0 ml Laboratory Data 24H LABS Laboratory Tests 2 09/11/18 11:25: Bedside Glucose (Misc Panel) 97 09/11/18 14:40: Nucleated Red Blood Cells % (auto) 0.0 09/11/18 17:00: Bedside Glucose (Misc Panel) 225H 09/11/18 20:32: Bedside Glucose (Misc Panel) 251H 09/12/18 07:46: Bedside Glucose (Misc Panel) 88 CBC/BMP Laboratory Tests 09/11/18 14:40 Red Blood Count 2.85 L, Mean Corpuscular Volume 92.6, Mean Corpuscular He moglobin 28.4, Mean Corpuscular Hemoglobin Concent 30.7 L, Red Cell Distribution Width 17.0 H SANDRA CROWE DO Sep 12, 2018 11:28
[2018-09-12 14:00] VITALS: BP 145/67
[2018-09-12] MEDS: LEVALBUTEROL 1.25 MG/0.5 ML CONCENTRATE NEB INH PRN ×2 (14:07→20:45)
[2018-09-13] MEDS: LEVALBUTEROL 1.25 MG/0.5 ML CONCENTRATE NEB INH PRN ×4 (00:54→19:51)
[2018-09-13 06:00] VITALS: BP 142/62
[2018-09-13] MEDS: HEPARIN SOD (PORCINE) 5000 UNITS/ML VIAL SQ SCH ×3 (06:00→22:00)
[2018-09-13] MEDS: HumaLOG INSULIN (NovoLOG) PER UNIT SC SCH ×4 (07:30→21:00)
[2018-09-13] MEDS: TIOTROPIUM INHALER/CAPSULE (SPIRIVA) INH SCH (08:58)
[2018-09-13] MEDS: SYMBICORT 160/4.5MCG INHALER 6GM INH SCH ×2 (08:59→19:51)
[2018-09-13] MEDS: LEVEMIR (INSULIN DETEMIR) 1 UNITS/0.01ML SC SCH (10:25)
[2018-09-13] MEDS: predniSONE 20 MG TAB PO SCH (10:38)
[2018-09-13] MEDS: ASPIRIN 81 MG ENTERIC TAB PO SCH (10:39)
[2018-09-13] MEDS: ATORVASTATIN 10 MG TAB PO SCH (10:39)
[2018-09-13] MEDS: FUROSEMIDE 40 MG TAB PO SCH ×2 (10:39→17:54)
[2018-09-13] MEDS: PANTOPRAZOLE 40MG TAB (PROTONIX) PO SCH (10:39)
[2018-09-14 06:00] VITALS: BP 132/71
[2018-09-14] MEDS: HEPARIN SOD (PORCINE) 5000 UNITS/ML VIAL SQ SCH ×3 (06:00→20:47)
[2018-09-14] MEDS: HumaLOG INSULIN (NovoLOG) PER UNIT SC SCH ×4 (07:30→20:46)
[2018-09-14] MEDS: TIOTROPIUM INHALER/CAPSULE (SPIRIVA) INH SCH (07:33)
[2018-09-14] MEDS: SYMBICORT 160/4.5MCG INHALER 6GM INH SCH ×2 (07:33→20:15)
[2018-09-14] MEDS: LEVEMIR (INSULIN DETEMIR) 1 UNITS/0.01ML SC SCH (07:52)
[2018-09-14] MEDS: ATORVASTATIN 10 MG TAB PO SCH (07:52)
[2018-09-14] MEDS: FUROSEMIDE 40 MG TAB PO SCH ×2 (07:52→16:13)
[2018-09-14] MEDS: PANTOPRAZOLE 40MG TAB (PROTONIX) PO SCH (07:52)
[2018-09-14] MEDS: ASPIRIN 81 MG ENTERIC TAB PO SCH (09:00)
[2018-09-14] MEDS: BACTRIM 160MG/800MG DS TAB PO SCH (10:03)
[2018-09-14] MEDS: predniSONE 20 MG TAB PO SCH (10:04)
[2018-09-15] MEDS: HEPARIN SOD (PORCINE) 5000 UNITS/ML VIAL SQ SCH ×3 (05:44→21:22)
[2018-09-15 06:00] VITALS: BP 154/70
[2018-09-15] MEDS: HumaLOG INSULIN (NovoLOG) PER UNIT SC SCH ×4 (07:30→21:00)
[2018-09-15] MEDS: TIOTROPIUM INHALER/CAPSULE (SPIRIVA) INH SCH (08:00)
[2018-09-15] MEDS: LEVALBUTEROL 1.25 MG/0.5 ML CONCENTRATE NEB INH PRN ×2 (08:08→12:29)
[2018-09-15] MEDS: SYMBICORT 160/4.5MCG INHALER 6GM INH SCH ×2 (08:08→19:55)
[2018-09-15] MEDS: FUROSEMIDE 40 MG TAB PO SCH ×2 (08:32→17:00)
[2018-09-15] MEDS: LEVEMIR (INSULIN DETEMIR) 1 UNITS/0.01ML SC SCH (08:33)
[2018-09-15] MEDS: ATORVASTATIN 10 MG TAB PO SCH (08:33)
[2018-09-15] MEDS: PANTOPRAZOLE 40MG TAB (PROTONIX) PO SCH (08:33)
[2018-09-15] MEDS: predniSONE 20 MG TAB PO SCH (08:33)
[2018-09-15] MEDS: ASPIRIN 81 MG ENTERIC TAB PO SCH (08:33)
[2018-09-15] MEDS: ALPRAZolam 0.25 MG TAB PO PRN (14:41)
[2018-09-15] MEDS: guaiFENesin ER 600 MG TAB PO PRN (14:41)
[2018-09-16] MEDS: HEPARIN SOD (PORCINE) 5000 UNITS/ML VIAL SQ SCH ×3 (05:50→22:00)
[2018-09-16 06:00] VITALS: BP 158/70
[2018-09-16] MEDS: HumaLOG INSULIN (NovoLOG) PER UNIT SC SCH ×4 (07:30→21:00)
[2018-09-16] MEDS: TIOTROPIUM INHALER/CAPSULE (SPIRIVA) INH SCH (08:10)
[2018-09-16] MEDS: SYMBICORT 160/4.5MCG INHALER 6GM INH SCH ×2 (08:11→20:10)
[2018-09-16] MEDS: predniSONE 20 MG TAB PO SCH (08:29)
[2018-09-16] MEDS: ASPIRIN 81 MG ENTERIC TAB PO SCH (08:29)
[2018-09-16] MEDS: ATORVASTATIN 10 MG TAB PO SCH (08:30)
[2018-09-16] MEDS: LEVEMIR (INSULIN DETEMIR) 1 UNITS/0.01ML SC SCH (08:30)
[2018-09-16] MEDS: FUROSEMIDE 40 MG TAB PO SCH ×2 (08:30→16:54)
[2018-09-16] MEDS: PANTOPRAZOLE 40MG TAB (PROTONIX) PO SCH (08:30)
[2018-09-16] MEDS: LEVALBUTEROL 1.25 MG/0.5 ML CONCENTRATE NEB INH PRN ×3 (12:10→23:14)
[2018-09-17 06:00] VITALS: BP 159/69
[2018-09-17] MEDS: HEPARIN SOD (PORCINE) 5000 UNITS/ML VIAL SQ SCH ×3 (06:00→19:55)
[2018-09-17 06:46] LABS: HEMATOCRIT 24.3 % (36.0-47.0); HEMOGLOBIN 7.4 g/dl (12.0-15.5); MEAN CORPUSCULAR HEMOGLOBIN 28.1 pg (27.0-33.0); MEAN CORPUSCULAR HGB CONC 30.5 g/dl (32.0-36.5); MEAN CORPUSCULAR VOLUME 92.4 fl (80.0-96.0); PLATELET COUNT, AUTOMATED 426 10^3/uL (150-450); RED BLOOD COUNT 2.63 10^6/uL (4.00-5.40); WHITE BLOOD COUNT 10.2 10^3/uL (4.0-10.0)
[2018-09-17 07:12] LABS: BLOOD UREA NITROGEN 18 MG/DL (7-18); CALCIUM LEVEL 8.5 MG/DL (8.8-10.2); CARBON DIOXIDE LEVEL 31 MEQ/L (21-32); CHLORIDE LEVEL 104 MEQ/L (98-107); GLOMERULAR FILTRATION RATE > 60.0 (>32); GLUCOSE, FASTING 84 MG/DL (70-100); SODIUM LEVEL 141 MEQ/L (136-145)
[2018-09-17] MEDS: HumaLOG INSULIN (NovoLOG) PER UNIT SC SCH ×4 (07:23→21:00)
[2018-09-17] MEDS: TIOTROPIUM INHALER/CAPSULE (SPIRIVA) INH SCH (07:28)
[2018-09-17] MEDS: SYMBICORT 160/4.5MCG INHALER 6GM INH SCH ×2 (07:28→20:38)
[2018-09-17] MEDS: predniSONE 20 MG TAB PO SCH (08:20)
[2018-09-17] MEDS: FUROSEMIDE 40 MG TAB PO SCH ×2 (08:20→17:00)
[2018-09-17] MEDS: ASPIRIN 81 MG ENTERIC TAB PO SCH (08:21)
[2018-09-17] MEDS: ATORVASTATIN 10 MG TAB PO SCH (08:26)
[2018-09-17] MEDS: PANTOPRAZOLE 40MG TAB (PROTONIX) PO SCH (08:26)
[2018-09-17] MEDS: BACTRIM 160MG/800MG DS TAB PO SCH (08:26)
[2018-09-17] MEDS: LEVEMIR (INSULIN DETEMIR) 1 UNITS/0.01ML SC SCH (08:27)
[2018-09-17] MEDS: LEVALBUTEROL 1.25 MG/0.5 ML CONCENTRATE NEB INH PRN (11:16)
[2018-09-18] MEDS: LEVALBUTEROL 1.25 MG/0.5 ML CONCENTRATE NEB INH PRN ×4 (00:45→20:51)
[2018-09-18] MEDS: HEPARIN SOD (PORCINE) 5000 UNITS/ML VIAL SQ SCH ×3 (04:54→20:18)
[2018-09-18 06:00] VITALS: BP 121/56
[2018-09-18] MEDS: HumaLOG INSULIN (NovoLOG) PER UNIT SC SCH ×4 (07:15→20:18)
[2018-09-18] MEDS: SYMBICORT 160/4.5MCG INHALER 6GM INH SCH ×2 (07:25→20:51)
[2018-09-18] MEDS: TIOTROPIUM INHALER/CAPSULE (SPIRIVA) INH SCH (07:25)
[2018-09-18] MEDS: LEVEMIR (INSULIN DETEMIR) 1 UNITS/0.01ML SC SCH (09:00)
[2018-09-18] MEDS: ATORVASTATIN 10 MG TAB PO SCH (09:00)
[2018-09-18] MEDS: FUROSEMIDE 40 MG TAB PO SCH ×2 (09:00→17:00)
[2018-09-18] MEDS: PANTOPRAZOLE 40MG TAB (PROTONIX) PO SCH (09:00)
[2018-09-18] MEDS: ASPIRIN 81 MG ENTERIC TAB PO SCH (09:07)
[2018-09-18] MEDS: predniSONE 20 MG TAB PO SCH (09:07)
[2018-09-19] MEDS: HEPARIN SOD (PORCINE) 5000 UNITS/ML VIAL SQ SCH ×3 (04:51→19:59)
[2018-09-19 06:00] VITALS: BP 130/79
[2018-09-19] MEDS: TIOTROPIUM INHALER/CAPSULE (SPIRIVA) INH SCH (07:30)
[2018-09-19] MEDS: HumaLOG INSULIN (NovoLOG) PER UNIT SC SCH ×4 (07:30→20:15)
[2018-09-19] MEDS: LEVALBUTEROL 1.25 MG/0.5 ML CONCENTRATE NEB INH PRN ×3 (07:31→18:13)
[2018-09-19] MEDS: SYMBICORT 160/4.5MCG INHALER 6GM INH SCH ×2 (07:31→20:46)
[2018-09-19] MEDS: FUROSEMIDE 40 MG TAB PO SCH ×2 (09:00→16:47)
[2018-09-19] MEDS: LEVEMIR (INSULIN DETEMIR) 1 UNITS/0.01ML SC SCH (09:00)
[2018-09-19] MEDS: PANTOPRAZOLE 40MG TAB (PROTONIX) PO SCH (09:00)
[2018-09-19] MEDS: BACTRIM 160MG/800MG DS TAB PO SCH (09:00)
[2018-09-19] MEDS: predniSONE 20 MG TAB PO SCH (09:24)
[2018-09-19] MEDS: ATORVASTATIN 10 MG TAB PO SCH (09:25)
[2018-09-19] MEDS: ASPIRIN 81 MG ENTERIC TAB PO SCH (09:25)
--- NOTE | 2018-09-19 10:08 | IPNPDOC ---
Text Note Date of Service The patient was seen on 09/19/18. NOTE SUBJECTIVE: Patient seen at bedside. No medical complaints. Was not co-operative with history or questions. Objective: General: disheveled, frail Refused physical examination ASSESSMENT AND PLAN: This is a 83-year-old female with chronic shortness of breath. 1. Shortness of breath with chronic hypoxic respiratory failure secondary to COPD: H/o volume overload and maintained on Lasix. Remains on baseline 2 L of oxygen. Continued Spiriva and Symbicort Xopenex Mucinex and prednisone. Given her chronic high-dose steroid requirement; continue PCP prophylaxis with Bactrim. PFS input regarding placement appreciated 2. Urinary Tract Infection: Resolved after completion of a course of therapy, no further issues. 3. h/o HCAP: Resolved and previously completed a course of antibiotics 4. DM2: consistent carb diet FSBS AC/HS c/w Levemir / SSI w/hypoglycemic protocol 5. Hx of LLE DVT: Not on any anticoagulation, no current issues with calf swelling or tenderness. 6. Hx of TIA: c/w ASA, refuses statin 7. Normocytic anemia: Chronic and stable 8. Hx of Nephrectomy: Chronic and stable 9. Anxiety: c/w Alprazolam 10.CAD s/p stent: c/w ASA refuses statin not on any beta yaw likely related to her pulmonary disease 11. Gastroesophageal reflux disease: c/w Omeprazole DVT prophylaxis: SQ Heparin Disposition: PFS / Case management looking into long-term placement options For now she remains SNF status. LOS: unclear until placement is sorted out. VS,Fishbone, I+O VS, Fishbone, I+O Vital Signs Date Time Temp Pulse Resp B/P (MAP) Pulse Ox O2 Delivery O2 Flow Rate FiO2 09/19/18 06:00 98.2 72 15 130/79 (96) 94 Nasal Cannula 3.0 I&O- Last 24 Hours up to 6 AM 09/19/18 05:59 Intake Total 1230 ml Output Total 500 ml Balance 730 ml ENRIQUETA HSIEH MD Sep 19, 2018 10:08
[2018-09-20] MEDS: HEPARIN SOD (PORCINE) 5000 UNITS/ML VIAL SQ SCH ×3 (04:11→20:52)
[2018-09-20 06:00] VITALS: BP 142/81
[2018-09-20] MEDS: TIOTROPIUM INHALER/CAPSULE (SPIRIVA) INH SCH (07:48)
[2018-09-20] MEDS: SYMBICORT 160/4.5MCG INHALER 6GM INH SCH ×2 (07:49→19:56)
[2018-09-20] MEDS: HumaLOG INSULIN (NovoLOG) PER UNIT SC SCH ×4 (07:58→20:36)
[2018-09-20] MEDS: LEVEMIR (INSULIN DETEMIR) 1 UNITS/0.01ML SC SCH (10:55)
[2018-09-20] MEDS: PANTOPRAZOLE 40MG TAB (PROTONIX) PO SCH (10:56)
[2018-09-20] MEDS: LEVALBUTEROL 1.25 MG/0.5 ML CONCENTRATE NEB INH PRN ×2 (11:43→19:56)
[2018-09-20] MEDS: ATORVASTATIN 10 MG TAB PO SCH (11:45)
[2018-09-20] MEDS: predniSONE 20 MG TAB PO SCH (11:45)
[2018-09-20] MEDS: ASPIRIN 81 MG ENTERIC TAB PO SCH (11:45)
[2018-09-20] MEDS: FUROSEMIDE 40 MG TAB PO SCH ×2 (11:45→17:00)
[2018-09-21] MEDS: HEPARIN SOD (PORCINE) 5000 UNITS/ML VIAL SQ SCH ×3 (05:19→20:07)
[2018-09-21 06:00] VITALS: BP 139/80
[2018-09-21] MEDS: HumaLOG INSULIN (NovoLOG) PER UNIT SC SCH ×4 (07:30→20:29)
[2018-09-21] MEDS: TIOTROPIUM INHALER/CAPSULE (SPIRIVA) INH SCH (07:42)
[2018-09-21] MEDS: SYMBICORT 160/4.5MCG INHALER 6GM INH SCH ×2 (07:42→20:49)
[2018-09-21] MEDS: PANTOPRAZOLE 40MG TAB (PROTONIX) PO SCH (09:00)
[2018-09-21] MEDS: BACTRIM 160MG/800MG DS TAB PO SCH (09:00)
[2018-09-21] MEDS: LEVEMIR (INSULIN DETEMIR) 1 UNITS/0.01ML SC SCH (09:00)
[2018-09-21] MEDS: ASPIRIN 81 MG ENTERIC TAB PO SCH (10:47)
[2018-09-21] MEDS: predniSONE 20 MG TAB PO SCH (10:48)
[2018-09-21] MEDS: ATORVASTATIN 10 MG TAB PO SCH (10:48)
[2018-09-21] MEDS: FUROSEMIDE 40 MG TAB PO SCH ×2 (10:48→17:00)
[2018-09-21] MEDS: LEVALBUTEROL 1.25 MG/0.5 ML CONCENTRATE NEB INH PRN (11:16)
[2018-09-22] MEDS: HEPARIN SOD (PORCINE) 5000 UNITS/ML VIAL SQ SCH ×3 (02:05→19:58)
[2018-09-22 06:00] VITALS: BP 136/62
[2018-09-22] MEDS: SYMBICORT 160/4.5MCG INHALER 6GM INH SCH ×2 (07:15→20:32)
[2018-09-22] MEDS: TIOTROPIUM INHALER/CAPSULE (SPIRIVA) INH SCH (07:15)
[2018-09-22] MEDS: HumaLOG INSULIN (NovoLOG) PER UNIT SC SCH ×4 (07:30→19:58)
[2018-09-22] MEDS: LEVEMIR (INSULIN DETEMIR) 1 UNITS/0.01ML SC SCH (08:56)
[2018-09-22] MEDS: predniSONE 20 MG TAB PO SCH (09:00)
[2018-09-22] MEDS: FUROSEMIDE 40 MG TAB PO SCH ×2 (09:00→16:37)
[2018-09-22] MEDS: ATORVASTATIN 10 MG TAB PO SCH (09:00)
[2018-09-22] MEDS: ASPIRIN 81 MG ENTERIC TAB PO SCH (09:00)
[2018-09-22] MEDS: PANTOPRAZOLE 40MG TAB (PROTONIX) PO SCH (09:00)
[2018-09-22] MEDS: LEVALBUTEROL 1.25 MG/0.5 ML CONCENTRATE NEB INH PRN ×2 (13:07→18:04)
--- NOTE | 2018-09-22 19:09 | ECGEPIP ---
Stationary ECG Study 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 Electronically Signed On 09-22-2018 19:08:45 EST by Phillip Sandhu
[2018-09-23] MEDS: HEPARIN SOD (PORCINE) 5000 UNITS/ML VIAL SQ SCH ×3 (04:29→20:28)
[2018-09-23 06:00] VITALS: BP 134/63
[2018-09-23] MEDS: TIOTROPIUM INHALER/CAPSULE (SPIRIVA) INH SCH (07:02)
[2018-09-23] MEDS: SYMBICORT 160/4.5MCG INHALER 6GM INH SCH ×2 (07:03→21:00)
[2018-09-23] MEDS: HumaLOG INSULIN (NovoLOG) PER UNIT SC SCH ×4 (07:06→19:55)
[2018-09-23] MEDS: LEVALBUTEROL 1.25 MG/0.5 ML CONCENTRATE NEB INH PRN ×3 (08:37→23:20)
[2018-09-23] MEDS: LEVEMIR (INSULIN DETEMIR) 1 UNITS/0.01ML SC SCH (09:00)
[2018-09-23] MEDS: FUROSEMIDE 40 MG TAB PO SCH ×2 (09:16→17:00)
[2018-09-23] MEDS: predniSONE 20 MG TAB PO SCH (09:16)
[2018-09-23] MEDS: PANTOPRAZOLE 40MG TAB (PROTONIX) PO SCH (09:16)
[2018-09-23] MEDS: ASPIRIN 81 MG ENTERIC TAB PO SCH (09:16)
[2018-09-23] MEDS: ATORVASTATIN 10 MG TAB PO SCH (09:16)
[2018-09-24] MEDS: HEPARIN SOD (PORCINE) 5000 UNITS/ML VIAL SQ SCH ×3 (04:50→20:31)
[2018-09-24 06:00] VITALS: BP 150/66
[2018-09-24] MEDS: HumaLOG INSULIN (NovoLOG) PER UNIT SC SCH ×4 (07:30→20:31)
[2018-09-24] MEDS: TIOTROPIUM INHALER/CAPSULE (SPIRIVA) INH SCH (08:46)
[2018-09-24] MEDS: SYMBICORT 160/4.5MCG INHALER 6GM INH SCH ×2 (08:47→21:05)
[2018-09-24] MEDS: LEVALBUTEROL 1.25 MG/0.5 ML CONCENTRATE NEB INH PRN ×4 (08:48→21:05)
[2018-09-24] MEDS: PANTOPRAZOLE 40MG TAB (PROTONIX) PO SCH (09:00)
[2018-09-24] MEDS: FUROSEMIDE 40 MG TAB PO SCH ×2 (09:00→17:00)
[2018-09-24] MEDS: predniSONE 5 MG TAB PO SCH (09:00)
[2018-09-24] MEDS: BACTRIM 160MG/800MG DS TAB PO SCH (09:00)
[2018-09-24] MEDS: LEVEMIR (INSULIN DETEMIR) 1 UNITS/0.01ML SC SCH (09:00)
[2018-09-24] MEDS: ASPIRIN 81 MG ENTERIC TAB PO SCH (09:00)
[2018-09-24] MEDS: ATORVASTATIN 10 MG TAB PO SCH (09:00)
[2018-09-25] MEDS: LEVALBUTEROL 1.25 MG/0.5 ML CONCENTRATE NEB INH PRN ×2 (02:11→20:22)
[2018-09-25] MEDS: HEPARIN SOD (PORCINE) 5000 UNITS/ML VIAL SQ SCH ×3 (05:04→22:00)
[2018-09-25 06:00] VITALS: BP 114/56
[2018-09-25] MEDS: TIOTROPIUM INHALER/CAPSULE (SPIRIVA) INH SCH (07:28)
[2018-09-25] MEDS: SYMBICORT 160/4.5MCG INHALER 6GM INH SCH ×2 (07:29→20:22)
[2018-09-25] MEDS: HumaLOG INSULIN (NovoLOG) PER UNIT SC SCH ×4 (07:30→21:00)
[2018-09-25] MEDS: ASPIRIN 81 MG ENTERIC TAB PO SCH (08:55)
[2018-09-25] MEDS: predniSONE 5 MG TAB PO SCH (08:55)
[2018-09-25] MEDS: ATORVASTATIN 10 MG TAB PO SCH (08:56)
[2018-09-25] MEDS: PANTOPRAZOLE 40MG TAB (PROTONIX) PO SCH (08:56)
[2018-09-25] MEDS: FUROSEMIDE 40 MG TAB PO SCH ×3 (08:56→17:00)
[2018-09-25] MEDS: LEVEMIR (INSULIN DETEMIR) 1 UNITS/0.01ML SC SCH (08:57)
[2018-09-25] MEDS: ALPRAZolam 0.25 MG TAB PO PRN (14:46)
[2018-09-26] MEDS: LEVALBUTEROL 1.25 MG/0.5 ML CONCENTRATE NEB INH PRN ×3 (01:24→21:10)
[2018-09-26] MEDS: HEPARIN SOD (PORCINE) 5000 UNITS/ML VIAL SQ SCH ×4 (05:00→23:56)
[2018-09-26 06:00] VITALS: BP 141/60
[2018-09-26] MEDS: TIOTROPIUM INHALER/CAPSULE (SPIRIVA) INH SCH (07:17)
[2018-09-26] MEDS: SYMBICORT 160/4.5MCG INHALER 6GM INH SCH ×2 (07:17→21:10)
[2018-09-26] MEDS: HumaLOG INSULIN (NovoLOG) PER UNIT SC SCH ×4 (07:30→21:00)
[2018-09-26] MEDS: BACTRIM 160MG/800MG DS TAB PO SCH (07:44)
[2018-09-26] MEDS: predniSONE 5 MG TAB PO SCH (07:45)
[2018-09-26] MEDS: FUROSEMIDE 40 MG TAB PO SCH ×2 (07:45→17:08)
[2018-09-26] MEDS: ASPIRIN 81 MG ENTERIC TAB PO SCH (07:45)
[2018-09-26] MEDS: ATORVASTATIN 10 MG TAB PO SCH (07:45)
[2018-09-26] MEDS: PANTOPRAZOLE 40MG TAB (PROTONIX) PO SCH (07:46)
[2018-09-26] MEDS: LEVEMIR (INSULIN DETEMIR) 1 UNITS/0.01ML SC SCH (07:46)
--- NOTE | 2018-09-26 09:33 | IPNPDOC ---
Date Seen The patient was seen on 09/26/18. Progress Note SUBJECTIVE: Patient seen at bedside. No medical complaints states she is breathing and thats all that matters. Was not co-operative with history or que stions. States she does not want to annoyed this morning and would like me to leave. She refused to let me do a physical exam today as well. Objective: General: disheveled, frail Refused physical examination ASSESSMENT AND PLAN: This is a 83-year-old female with chronic shortness of breath. 1. Shortness of breath with chronic hypoxic respiratory failure secondary to COPD: H/o volume overload and maintained on Lasix. Remains on baseline 2 L of oxygen. Continued Spiriva and Symbicort Xopenex Mucinex and prednisone. Given her chronic high-dose steroid requirement; continue PCP prophylaxis with Bactrim. PFS input regarding placement appreciated 2. Urinary Tract Infection: Resolved after completion of a course of therapy, no further issues. 3. h/o HCAP: Resolved and previously completed a course of antibiotics 4. DM2: consistent carb diet FSBS AC/HS c/w Levemir / SSI w/hypoglycemic protocol 5. Hx of LLE DVT: Not on any anticoagulation, no current issues with calf swelling or tenderness. 6. Hx of TIA: c/w ASA, refuses statin 7. Normocytic anemia: Chronic and stable 8. Hx of Nephrectomy: Chronic and stable 9. Anxiety: c/w Alprazolam 10.CAD s/p stent: c/w ASA refuses statin not on any beta yaw likely related to her pulmonary disease 11. Gastroesophageal reflux disease: c/w Omeprazole DVT prophylaxis: SQ Heparin Disposition: PFS / Case management looking into long-term placement options For now she remains SNF status. LOS: unclear until placement is sorted out. VS, I&O, 24H, Fishbone Vital Signs/I&O Vital Signs Date Time Temp Pulse Resp B/P (MAP) Pulse Ox O2 Delivery O2 Flow Rate FiO2 09/26/18 09:00 3.0 09/26/18 06:00 98.1 86 20 141/60 (87) 100 Nasal Cannula I&O- Last 24 Hours up to 6 AM 09/26/18 05:59 Intake Total 900 ml Output Total 1100 ml Balance -200 ml Laboratory Data 24H LABS Laboratory Tests 2 09/25/18 14:44: Bedside Glucose (Misc Panel) 110 09/25/18 19:59: Bedside Glucose (Misc Panel) 104 09/26/18 06:05: Bedside Glucose (Misc Panel) 133H GME ATTESTATION GME ATTESTATION My faculty preceptor for this patient encounter was physically present during the encounter and was fully available. All aspects of the patient interview, examination, medical decision making process, and medical care plan development were reviewed and approved by the faculty preceptor. The faculty preceptor is aware and concurs with the plan as stated in the body of this note and will attest to such by his/her cosignature. ARSLAN GUILLEN DO Sep 26, 2018 09:33
[2018-09-27 06:00] VITALS: BP 159/70
[2018-09-27] MEDS: SYMBICORT 160/4.5MCG INHALER 6GM INH SCH ×2 (07:09→20:58)
[2018-09-27] MEDS: TIOTROPIUM INHALER/CAPSULE (SPIRIVA) INH SCH (07:09)
[2018-09-27] MEDS: HumaLOG INSULIN (NovoLOG) PER UNIT SC SCH ×4 (07:30→20:40)
[2018-09-27] MEDS: predniSONE 5 MG TAB PO SCH (08:46)
[2018-09-27] MEDS: ASPIRIN 81 MG ENTERIC TAB PO SCH (08:46)
[2018-09-27] MEDS: FUROSEMIDE 40 MG TAB PO SCH ×2 (08:47→16:15)
[2018-09-27] MEDS: ATORVASTATIN 10 MG TAB PO SCH (08:47)
[2018-09-27] MEDS: PANTOPRAZOLE 40MG TAB (PROTONIX) PO SCH (08:48)
[2018-09-27] MEDS: LEVEMIR (INSULIN DETEMIR) 1 UNITS/0.01ML SC SCH (08:48)
[2018-09-27] MEDS: HEPARIN SOD (PORCINE) 5000 UNITS/ML VIAL SQ SCH ×3 (13:20→22:06)
[2018-09-27] MEDS: LEVALBUTEROL 1.25 MG/0.5 ML CONCENTRATE NEB INH PRN ×2 (13:43→20:59)
[2018-09-28] MEDS: LEVALBUTEROL 1.25 MG/0.5 ML CONCENTRATE NEB INH PRN ×4 (05:22→22:28)
[2018-09-28 06:00] VITALS: BP 131/58
[2018-09-28] MEDS: HumaLOG INSULIN (NovoLOG) PER UNIT SC SCH ×3 (07:30→16:57)
[2018-09-28] MEDS: TIOTROPIUM INHALER/CAPSULE (SPIRIVA) INH SCH (08:12)
[2018-09-28] MEDS: SYMBICORT 160/4.5MCG INHALER 6GM INH SCH ×2 (08:12→20:04)
[2018-09-28] MEDS: FUROSEMIDE 40 MG TAB PO SCH ×2 (08:31→16:57)
[2018-09-28] MEDS: BACTRIM 160MG/800MG DS TAB PO SCH (08:31)
[2018-09-28] MEDS: ATORVASTATIN 10 MG TAB PO SCH (08:31)
[2018-09-28] MEDS: ASPIRIN 81 MG ENTERIC TAB PO SCH (08:31)
[2018-09-28] MEDS: predniSONE 5 MG TAB PO SCH (08:31)
[2018-09-28] MEDS: PANTOPRAZOLE 40MG TAB (PROTONIX) PO SCH (08:32)
[2018-09-28] MEDS: LEVEMIR (INSULIN DETEMIR) 1 UNITS/0.01ML SC SCH (08:32)
[2018-09-28] MEDS: HEPARIN SOD (PORCINE) 5000 UNITS/ML VIAL SQ SCH ×2 (14:00→22:10)
[2018-09-29] MEDS: guaiFENesin ER 600 MG TAB PO PRN (00:35)
[2018-09-29] MEDS: HumaLOG INSULIN (NovoLOG) PER UNIT SC SCH ×5 (00:35→22:14)
[2018-09-29] MEDS: diphenhydrAMINE 25 MG CAP PO PRN (00:35)
[2018-09-29] MEDS: ALPRAZolam 0.25 MG TAB PO PRN ×3 (00:35→10:41)
[2018-09-29] MEDS: LEVALBUTEROL 1.25 MG/0.5 ML CONCENTRATE NEB INH PRN ×4 (02:48→21:21)
[2018-09-29] MEDS: HEPARIN SOD (PORCINE) 5000 UNITS/ML VIAL SQ SCH ×3 (05:45→22:14)
[2018-09-29 06:00] VITALS: BP 150/69
[2018-09-29] MEDS: TIOTROPIUM INHALER/CAPSULE (SPIRIVA) INH SCH (07:14)
[2018-09-29] MEDS: SYMBICORT 160/4.5MCG INHALER 6GM INH SCH ×2 (07:14→21:22)
[2018-09-29] MEDS: LEVEMIR (INSULIN DETEMIR) 1 UNITS/0.01ML SC SCH (09:00)
[2018-09-29] MEDS: FUROSEMIDE 40 MG TAB PO SCH ×2 (10:40→18:21)
[2018-09-29] MEDS: ASPIRIN 81 MG ENTERIC TAB PO SCH (10:40)
[2018-09-29] MEDS: ATORVASTATIN 10 MG TAB PO SCH (10:40)
[2018-09-29] MEDS: predniSONE 5 MG TAB PO SCH (10:41)
[2018-09-29] MEDS: PANTOPRAZOLE 40MG TAB (PROTONIX) PO SCH (10:41)
[2018-09-30] MEDS: LEVALBUTEROL 1.25 MG/0.5 ML CONCENTRATE NEB INH PRN ×3 (04:39→20:11)
[2018-09-30] MEDS: HEPARIN SOD (PORCINE) 5000 UNITS/ML VIAL SQ SCH ×3 (05:41→20:00)
[2018-09-30 06:00] VITALS: BP 150/78
[2018-09-30] MEDS: HumaLOG INSULIN (NovoLOG) PER UNIT SC SCH ×4 (07:30→20:00)
[2018-09-30] MEDS: SYMBICORT 160/4.5MCG INHALER 6GM INH SCH ×2 (08:28→20:11)
[2018-09-30] MEDS: TIOTROPIUM INHALER/CAPSULE (SPIRIVA) INH SCH (08:28)
[2018-09-30] MEDS: LEVEMIR (INSULIN DETEMIR) 1 UNITS/0.01ML SC SCH (09:00)
[2018-09-30] MEDS: ASPIRIN 81 MG ENTERIC TAB PO SCH (10:19)
[2018-09-30] MEDS: ALPRAZolam 0.25 MG TAB PO PRN (10:19)
[2018-09-30] MEDS: predniSONE 5 MG TAB PO SCH (10:20)
[2018-09-30] MEDS: FUROSEMIDE 40 MG TAB PO SCH ×2 (10:20→17:13)
[2018-09-30] MEDS: PANTOPRAZOLE 40MG TAB (PROTONIX) PO SCH (10:21)
[2018-09-30] MEDS: ATORVASTATIN 10 MG TAB PO SCH (10:21)
[2018-10-01] MEDS: HEPARIN SOD (PORCINE) 5000 UNITS/ML VIAL SQ SCH ×3 (05:10→20:53)
[2018-10-01 06:00] VITALS: BP 119/56
[2018-10-01] MEDS: HumaLOG INSULIN (NovoLOG) PER UNIT SC SCH ×5 (07:30→20:52)
[2018-10-01] MEDS: SYMBICORT 160/4.5MCG INHALER 6GM INH SCH ×2 (07:31→20:23)
[2018-10-01] MEDS: LEVALBUTEROL 1.25 MG/0.5 ML CONCENTRATE NEB INH PRN ×3 (07:31→16:59)
[2018-10-01] MEDS: TIOTROPIUM INHALER/CAPSULE (SPIRIVA) INH SCH (07:31)
[2018-10-01 08:40] LABS: HEMATOCRIT 25.9 % (36.0-47.0); HEMOGLOBIN 7.7 g/dl (12.0-15.5); MEAN CORPUSCULAR HEMOGLOBIN 26.6 pg (27.0-33.0); MEAN CORPUSCULAR HGB CONC 29.7 g/dl (32.0-36.5); MEAN CORPUSCULAR VOLUME 89.6 fl (80.0-96.0); PLATELET COUNT, AUTOMATED 449 10^3/uL (150-450); RED BLOOD COUNT 2.89 10^6/uL (4.00-5.40); WHITE BLOOD COUNT 11.5 10^3/uL (4.0-10.0)
[2018-10-01] MEDS: ATORVASTATIN 10 MG TAB PO SCH (08:53)
[2018-10-01] MEDS: BACTRIM 160MG/800MG DS TAB PO SCH (08:53)
[2018-10-01] MEDS: predniSONE 5 MG TAB PO SCH (08:53)
[2018-10-01] MEDS: FUROSEMIDE 40 MG TAB PO SCH ×2 (08:53→17:00)
[2018-10-01] MEDS: ASPIRIN 81 MG ENTERIC TAB PO SCH (08:53)
[2018-10-01] MEDS: PANTOPRAZOLE 40MG TAB (PROTONIX) PO SCH (08:53)
[2018-10-01] MEDS: LEVEMIR (INSULIN DETEMIR) 1 UNITS/0.01ML SC SCH (08:54)
[2018-10-01 09:43] LABS: BLOOD UREA NITROGEN 21 MG/DL (7-18); CALCIUM LEVEL 8.9 MG/DL (8.8-10.2); CARBON DIOXIDE LEVEL 35 MEQ/L (21-32); CHLORIDE LEVEL 98 MEQ/L (98-107); CREATININE FOR GFR 0.68 MG/DL (0.55-1.30); GLOMERULAR FILTRATION RATE > 60.0 (>32); GLUCOSE, FASTING 100 MG/DL (70-100); SODIUM LEVEL 139 MEQ/L (136-145)
[2018-10-01] MEDS ORDERED: POTASSIUM CHLORIDE 10 MEQ SR TABLET PO ONE (11:00)
[2018-10-01] MEDS: MORPHINE 10MG/0.5ML ORAL CONCENTRATE SOLUTION U/D SL PRN (12:53)
[2018-10-02] MEDS: ALPRAZolam 0.25 MG TAB PO PRN (00:32)
[2018-10-02] MEDS: LEVALBUTEROL 1.25 MG/0.5 ML CONCENTRATE NEB INH PRN ×2 (05:01→13:17)
[2018-10-02] MEDS: HEPARIN SOD (PORCINE) 5000 UNITS/ML VIAL SQ SCH ×3 (05:02→20:39)
[2018-10-02 06:00] VITALS: BP 133/60
[2018-10-02] MEDS: TIOTROPIUM INHALER/CAPSULE (SPIRIVA) INH SCH (07:17)
[2018-10-02] MEDS: SYMBICORT 160/4.5MCG INHALER 6GM INH SCH ×2 (07:17→20:18)
[2018-10-02] MEDS: HumaLOG INSULIN (NovoLOG) PER UNIT SC SCH ×4 (07:30→20:38)
[2018-10-02] MEDS: ASPIRIN 81 MG ENTERIC TAB PO SCH (09:00)
[2018-10-02] MEDS: predniSONE 10 MG TAB PO SCH ×2 (09:00→11:06)
[2018-10-02] MEDS: FUROSEMIDE 40 MG TAB PO SCH ×3 (09:00→17:00)
[2018-10-02] MEDS: LEVEMIR (INSULIN DETEMIR) 1 UNITS/0.01ML SC SCH (09:00)
[2018-10-02] MEDS: PANTOPRAZOLE 40MG TAB (PROTONIX) PO SCH (09:00)
[2018-10-02] MEDS: ATORVASTATIN 10 MG TAB PO SCH (09:00)
--- NOTE | 2018-10-02 13:04 | IPNPDOC ---
Date Seen The patient was seen on 10/02/18. Progress Note SUBJECTIVE: Pt is pleasant this morning, but complains of swelling in her feet, she otherwise states that her breathing is as it always is. Per RN, however, patient has been refusing her meds everyday, and has been very inappropriate with her comments with nursing. She denies any chest pain, pressure. She slept well, and has "so-so" appetite. OBJECTIVE PHYSICAL EXAMINATION: VITAL SIGNS: Please see below. GENERAL: Frail disheveled elderly female lying in bed on her right side she does not appear to be in any acute distress she is awake alert oriented 3 speak in complete sentences with no accessory muscle use HEENT: Pupils are equally round reactive to light she has moist mucous membranes mild elevation in her CVP CARDIOVASCULAR: S1-S2 regular. RESPIRATORY: Fairly Good air movement diminished breath sounds at the bases with a prolonged expiratory phase and audible wheezes some scattered bibasilar Rales. ABDOMINAL: Bowel sounds present abdomen soft and nontender EXTREMITIES: To 2+ edema bilaterally LABORATORY DATA, IMAGING STUDIES, MICROBIOLOGY: Please see below. DVT prophylaxis ordered?: Heparin ASSESSMENT AND PLAN: This is a 83-year-old female with shortness of breath. 1. Shortness of breath-patient has chronic hypoxic respiratory failure secondary to chronic COPD at this time she is at her baseline respiratory status. She does appear to be somewhat volume overloadedbecause of medical noncompliance with lasix. she recently had an echocardiogram that revealed preserved ejection fraction mild left ventricular hypertrophy with grade 1 diastolic dysfunction. The patient is currently awaiting placement she has remained medically stable for extended period of time. She is continued on her baseline 2 L of oxygen. She is continued on Spiriva and Symbicort Xopenex Mucinex and prednisone. currently under ALC status PFS appreciated 2. Urinary Tract Infection: Resolved the patient completed a course of therapy 3. Recent treatment for HCAP: Resolved she's completed a course of therapy 4. DM2 - c/w ISS and Levemir 5 units qAM patient is only intermittently compliant even in hospital extensive time spent bedside counseling the patient regarding the importance of taking insulin 5. Hx of LLE DVT: Not on any anticoagulation 6. Hx of TIA: c/w ASA, refuses statin 7. Normocytic anemia: Chronic and stable 8. Hx of Nephrectomy: Chronic and stable 9. Anxiety: c/w Alprazolam 10.CAD s/p stent: c/w ASA refuses statin not on any beta yaw likely related to her pulmonary disease 11. Gastroesophageal reflux disease: c/w Omeprazole Disposition: - PFS / Case management looking into long-term placement options VS, I&O, 24H, Fishbone Vital Signs/I&O Vital Signs Date Time Temp Pulse Resp B/P (MAP) Pulse Ox O2 Delivery O2 Flow Rate FiO2 10/02/18 07:45 2.0 10/02/18 06:00 98.0 87 24 133/60 (84) 91 10/01/18 13:23 Nasal Cannula I&O- Last 24 Hours up to 6 AM 10/02/18 06:00 Intake Total 1050 ml Output Total 250 ml Balance 800 ml Laboratory Data 24H LABS Laboratory Tests 2 10/01/18 16:55: Bedside Glucose (Misc Panel) 311H 10/01/18 20:27: Bedside Glucose (Misc Panel) 351H 10/02/18 06:17: Bedside Glucose (Misc Panel) 111H 10/02/18 12:19: Bedside Glucose (Misc Panel) 131H VIKASH ANTHONY MD Oct 02, 2018 13:04
[2018-10-03] MEDS: HEPARIN SOD (PORCINE) 5000 UNITS/ML VIAL SQ SCH ×3 (05:35→20:31)
[2018-10-03 06:00] VITALS: BP 132/64
[2018-10-03] MEDS: SYMBICORT 160/4.5MCG INHALER 6GM INH SCH ×2 (07:03→21:05)
[2018-10-03] MEDS: TIOTROPIUM INHALER/CAPSULE (SPIRIVA) INH SCH (07:03)
[2018-10-03] MEDS: HumaLOG INSULIN (NovoLOG) PER UNIT SC SCH ×4 (07:30→20:30)
[2018-10-03] MEDS: LEVALBUTEROL 1.25 MG/0.5 ML CONCENTRATE NEB INH PRN ×4 (08:45→21:05)
[2018-10-03] MEDS: FUROSEMIDE 40 MG TAB PO SCH ×3 (09:00→18:30)
[2018-10-03] MEDS: LEVEMIR (INSULIN DETEMIR) 1 UNITS/0.01ML SC SCH (09:00)
[2018-10-03] MEDS: PANTOPRAZOLE 40MG TAB (PROTONIX) PO SCH (09:00)
[2018-10-03] MEDS: ASPIRIN 81 MG ENTERIC TAB PO SCH (10:11)
[2018-10-03] MEDS: BACTRIM 160MG/800MG DS TAB PO SCH (10:11)
[2018-10-03] MEDS: ATORVASTATIN 10 MG TAB PO SCH (10:11)
[2018-10-03] MEDS: predniSONE 10 MG TAB PO SCH (10:11)
[2018-10-04] MEDS: LEVALBUTEROL 1.25 MG/0.5 ML CONCENTRATE NEB INH PRN ×3 (04:58→20:06)
[2018-10-04] MEDS: HEPARIN SOD (PORCINE) 5000 UNITS/ML VIAL SQ SCH ×3 (05:17→22:00)
[2018-10-04 06:00] VITALS: BP 140/60
[2018-10-04] MEDS: HumaLOG INSULIN (NovoLOG) PER UNIT SC SCH ×4 (07:30→21:00)
[2018-10-04] MEDS: SYMBICORT 160/4.5MCG INHALER 6GM INH SCH ×2 (07:36→21:00)
[2018-10-04] MEDS: TIOTROPIUM INHALER/CAPSULE (SPIRIVA) INH SCH (07:38)
[2018-10-04] MEDS: FUROSEMIDE 40 MG TAB PO SCH ×2 (09:00→17:00)
[2018-10-04] MEDS: PANTOPRAZOLE 40MG TAB (PROTONIX) PO SCH (09:00)
[2018-10-04] MEDS: predniSONE 10 MG TAB PO SCH (09:00)
[2018-10-04] MEDS: ASPIRIN 81 MG ENTERIC TAB PO SCH (09:00)
[2018-10-04] MEDS: ATORVASTATIN 10 MG TAB PO SCH (09:00)
[2018-10-04] MEDS: LEVEMIR (INSULIN DETEMIR) 1 UNITS/0.01ML SC SCH (09:00)
[2018-10-05] MEDS: LEVALBUTEROL 1.25 MG/0.5 ML CONCENTRATE NEB INH PRN ×3 (00:01→22:41)
[2018-10-05] MEDS: HEPARIN SOD (PORCINE) 5000 UNITS/ML VIAL SQ SCH ×3 (05:46→22:00)
[2018-10-05 06:00] VITALS: BP 146/70
[2018-10-05] MEDS: HumaLOG INSULIN (NovoLOG) PER UNIT SC SCH ×4 (07:30→21:00)
[2018-10-05] MEDS: TIOTROPIUM INHALER/CAPSULE (SPIRIVA) INH SCH (08:58)
[2018-10-05] MEDS: SYMBICORT 160/4.5MCG INHALER 6GM INH SCH ×2 (08:59→22:40)
[2018-10-05] MEDS: predniSONE 10 MG TAB PO SCH (09:20)
[2018-10-05] MEDS: ASPIRIN 81 MG ENTERIC TAB PO SCH (09:20)
[2018-10-05] MEDS: ATORVASTATIN 10 MG TAB PO SCH (09:20)
[2018-10-05] MEDS: FUROSEMIDE 40 MG TAB PO SCH ×2 (09:20→18:43)
[2018-10-05] MEDS: PANTOPRAZOLE 40MG TAB (PROTONIX) PO SCH (09:20)
[2018-10-05] MEDS: BACTRIM 160MG/800MG DS TAB PO SCH (09:20)
[2018-10-05] MEDS: LEVEMIR (INSULIN DETEMIR) 1 UNITS/0.01ML SC SCH (14:02)
[2018-10-06 06:00] VITALS: BP 147/65
[2018-10-06] MEDS: HEPARIN SOD (PORCINE) 5000 UNITS/ML VIAL SQ SCH ×3 (06:00→22:00)
[2018-10-06] MEDS: TIOTROPIUM INHALER/CAPSULE (SPIRIVA) INH SCH (07:11)
[2018-10-06] MEDS: SYMBICORT 160/4.5MCG INHALER 6GM INH SCH ×2 (07:12→20:47)
[2018-10-06] MEDS: HumaLOG INSULIN (NovoLOG) PER UNIT SC SCH ×4 (07:30→21:00)
[2018-10-06] MEDS: LEVEMIR (INSULIN DETEMIR) 1 UNITS/0.01ML SC SCH (09:00)
[2018-10-06] MEDS: ASPIRIN 81 MG ENTERIC TAB PO SCH (10:26)
[2018-10-06] MEDS: ATORVASTATIN 10 MG TAB PO SCH (10:30)
[2018-10-06] MEDS: PANTOPRAZOLE 40MG TAB (PROTONIX) PO SCH (10:30)
[2018-10-06] MEDS: predniSONE 10 MG TAB PO SCH (10:31)
[2018-10-06] MEDS: FUROSEMIDE 40 MG TAB PO SCH ×2 (10:31→18:44)
[2018-10-07] MEDS: LEVALBUTEROL 1.25 MG/0.5 ML CONCENTRATE NEB INH PRN ×4 (05:23→21:19)
[2018-10-07 06:00] VITALS: BP 160/67
[2018-10-07] MEDS: HEPARIN SOD (PORCINE) 5000 UNITS/ML VIAL SQ SCH ×3 (06:00→21:49)
[2018-10-07] MEDS: HumaLOG INSULIN (NovoLOG) PER UNIT SC SCH ×5 (06:42→21:00)
[2018-10-07] MEDS: TIOTROPIUM INHALER/CAPSULE (SPIRIVA) INH SCH (07:16)
[2018-10-07] MEDS: SYMBICORT 160/4.5MCG INHALER 6GM INH SCH ×2 (07:17→21:28)
[2018-10-07] MEDS: LEVEMIR (INSULIN DETEMIR) 1 UNITS/0.01ML SC SCH (09:00)
[2018-10-07] MEDS: PANTOPRAZOLE 40MG TAB (PROTONIX) PO SCH (09:09)
[2018-10-07] MEDS: ASPIRIN 81 MG ENTERIC TAB PO SCH (09:09)
[2018-10-07] MEDS: ATORVASTATIN 10 MG TAB PO SCH (09:09)
[2018-10-07] MEDS: FUROSEMIDE 40 MG TAB PO SCH ×2 (09:09→17:00)
[2018-10-07] MEDS: predniSONE 10 MG TAB PO SCH (09:09)
[2018-10-08] MEDS: HEPARIN SOD (PORCINE) 5000 UNITS/ML VIAL SQ SCH ×3 (05:00→21:24)
[2018-10-08 06:00] VITALS: BP 149/69
[2018-10-08] MEDS: HumaLOG INSULIN (NovoLOG) PER UNIT SC SCH ×4 (07:29→20:52)
[2018-10-08] MEDS: LEVEMIR (INSULIN DETEMIR) 1 UNITS/0.01ML SC SCH (07:30)
[2018-10-08] MEDS: SYMBICORT 160/4.5MCG INHALER 6GM INH SCH ×2 (07:32→20:53)
[2018-10-08] MEDS: LEVALBUTEROL 1.25 MG/0.5 ML CONCENTRATE NEB INH PRN ×4 (07:32→22:01)
[2018-10-08] MEDS: predniSONE 10 MG TAB PO SCH (08:12)
[2018-10-08] MEDS: BACTRIM 160MG/800MG DS TAB PO SCH (08:12)
[2018-10-08] MEDS: FUROSEMIDE 40 MG TAB PO SCH ×2 (08:12→17:00)
[2018-10-08] MEDS: ASPIRIN 81 MG ENTERIC TAB PO SCH (08:12)
[2018-10-08] MEDS: ATORVASTATIN 10 MG TAB PO SCH (08:12)
[2018-10-08] MEDS: PANTOPRAZOLE 40MG TAB (PROTONIX) PO SCH (08:12)
[2018-10-08] MEDS: TIOTROPIUM INHALER/CAPSULE (SPIRIVA) INH SCH (09:02)
[2018-10-09] MEDS: LEVALBUTEROL 1.25 MG/0.5 ML CONCENTRATE NEB INH PRN ×2 (05:06→08:17)
[2018-10-09] MEDS: HEPARIN SOD (PORCINE) 5000 UNITS/ML VIAL SQ SCH ×3 (05:08→19:58)
[2018-10-09] MEDS: HumaLOG INSULIN (NovoLOG) PER UNIT SC SCH ×4 (07:30→20:31)
[2018-10-09] MEDS: SYMBICORT 160/4.5MCG INHALER 6GM INH SCH ×2 (08:16→22:48)
[2018-10-09] MEDS: TIOTROPIUM INHALER/CAPSULE (SPIRIVA) INH SCH (08:16)
[2018-10-09] MEDS: LEVEMIR (INSULIN DETEMIR) 1 UNITS/0.01ML SC SCH (09:00)
[2018-10-09] MEDS: PANTOPRAZOLE 40MG TAB (PROTONIX) PO SCH (09:00)
[2018-10-09] MEDS: FUROSEMIDE 40 MG TAB PO SCH ×2 (09:00→17:00)
[2018-10-09] MEDS: ASPIRIN 81 MG ENTERIC TAB PO SCH (09:23)
[2018-10-09] MEDS: ATORVASTATIN 10 MG TAB PO SCH (09:23)
[2018-10-09] MEDS: predniSONE 10 MG TAB PO SCH (09:25)
[2018-10-09 21:00] VITALS: BP 151/66
[2018-10-10] MEDS: HEPARIN SOD (PORCINE) 5000 UNITS/ML VIAL SQ SCH ×3 (04:55→22:00)
[2018-10-10] MEDS: LEVALBUTEROL 1.25 MG/0.5 ML CONCENTRATE NEB INH PRN ×5 (05:13→21:58)
[2018-10-10 06:00] VITALS: BP 136/61
[2018-10-10] MEDS: HumaLOG INSULIN (NovoLOG) PER UNIT SC SCH ×4 (07:30→21:00)
[2018-10-10] MEDS: ASPIRIN 81 MG ENTERIC TAB PO SCH (08:30)
[2018-10-10] MEDS: FUROSEMIDE 40 MG TAB PO SCH ×2 (08:30→17:00)
[2018-10-10] MEDS: predniSONE 10 MG TAB PO SCH (08:30)
[2018-10-10] MEDS: ATORVASTATIN 10 MG TAB PO SCH (08:30)
[2018-10-10] MEDS: BACTRIM 160MG/800MG DS TAB PO SCH (08:30)
[2018-10-10] MEDS: LEVEMIR (INSULIN DETEMIR) 1 UNITS/0.01ML SC SCH (08:31)
[2018-10-10] MEDS: PANTOPRAZOLE 40MG TAB (PROTONIX) PO SCH (08:31)
[2018-10-10] MEDS: TIOTROPIUM INHALER/CAPSULE (SPIRIVA) INH SCH (08:58)
[2018-10-10] MEDS: SYMBICORT 160/4.5MCG INHALER 6GM INH SCH ×2 (08:58→21:58)
[2018-10-10 12:16] VITALS: O2SAT 97
[2018-10-10 16:06] VITALS: O2SAT 99
[2018-10-11] MEDS: LEVALBUTEROL 1.25 MG/0.5 ML CONCENTRATE NEB INH PRN (04:29)
[2018-10-11 06:00] VITALS: BP 145/65
[2018-10-11] MEDS: HEPARIN SOD (PORCINE) 5000 UNITS/ML VIAL SQ SCH ×3 (06:00→21:00)
[2018-10-11] MEDS: TIOTROPIUM INHALER/CAPSULE (SPIRIVA) INH SCH (07:25)
[2018-10-11] MEDS: SYMBICORT 160/4.5MCG INHALER 6GM INH SCH ×2 (07:25→21:32)
[2018-10-11] MEDS: HumaLOG INSULIN (NovoLOG) PER UNIT SC SCH ×4 (07:30→20:28)
[2018-10-11] MEDS: ATORVASTATIN 10 MG TAB PO SCH ×2 (09:00→09:36)
[2018-10-11] MEDS: PANTOPRAZOLE 40MG TAB (PROTONIX) PO SCH ×2 (09:00→09:36)
[2018-10-11] MEDS: LEVEMIR (INSULIN DETEMIR) 1 UNITS/0.01ML SC SCH (09:00)
[2018-10-11] MEDS: predniSONE 10 MG TAB PO SCH (09:35)
[2018-10-11] MEDS: ASPIRIN 81 MG ENTERIC TAB PO SCH (09:35)
[2018-10-11] MEDS: FUROSEMIDE 40 MG TAB PO SCH ×2 (09:35→17:26)
[2018-10-12] MEDS: HEPARIN SOD (PORCINE) 5000 UNITS/ML VIAL SQ SCH ×3 (05:09→21:18)
[2018-10-12 06:00] VITALS: BP 115/57
[2018-10-12] MEDS: SYMBICORT 160/4.5MCG INHALER 6GM INH SCH ×2 (07:16→21:20)
[2018-10-12] MEDS: TIOTROPIUM INHALER/CAPSULE (SPIRIVA) INH SCH (07:16)
[2018-10-12] MEDS: HumaLOG INSULIN (NovoLOG) PER UNIT SC SCH ×4 (07:30→20:40)
[2018-10-12] MEDS: PANTOPRAZOLE 40MG TAB (PROTONIX) PO SCH (09:00)
[2018-10-12] MEDS: FUROSEMIDE 40 MG TAB PO SCH ×2 (09:00→17:16)
[2018-10-12] MEDS: LEVEMIR (INSULIN DETEMIR) 1 UNITS/0.01ML SC SCH (09:00)
[2018-10-12] MEDS: ATORVASTATIN 10 MG TAB PO SCH (09:00)
[2018-10-12] MEDS: BACTRIM 160MG/800MG DS TAB PO SCH (10:02)
[2018-10-12] MEDS: ASPIRIN 81 MG ENTERIC TAB PO SCH (10:02)
[2018-10-12] MEDS: predniSONE 10 MG TAB PO SCH (10:02)
[2018-10-13] MEDS: LEVALBUTEROL 1.25 MG/0.5 ML CONCENTRATE NEB INH PRN ×4 (04:18→18:25)
[2018-10-13] MEDS: HEPARIN SOD (PORCINE) 5000 UNITS/ML VIAL SQ SCH ×3 (05:15→21:16)
[2018-10-13 06:00] VITALS: BP 136/63
[2018-10-13] MEDS: HumaLOG INSULIN (NovoLOG) PER UNIT SC SCH ×4 (07:30→21:00)
[2018-10-13] MEDS: SYMBICORT 160/4.5MCG INHALER 6GM INH SCH ×2 (07:49→20:35)
[2018-10-13] MEDS: TIOTROPIUM INHALER/CAPSULE (SPIRIVA) INH SCH (07:49)
[2018-10-13] MEDS: predniSONE 10 MG TAB PO SCH (09:00)
[2018-10-13] MEDS: FUROSEMIDE 40 MG TAB PO SCH ×2 (09:00→17:45)
[2018-10-13] MEDS: PANTOPRAZOLE 40MG TAB (PROTONIX) PO SCH (09:00)
[2018-10-13] MEDS: LEVEMIR (INSULIN DETEMIR) 1 UNITS/0.01ML SC SCH (09:00)
[2018-10-13] MEDS: ATORVASTATIN 10 MG TAB PO SCH (09:00)
[2018-10-13] MEDS: ASPIRIN 81 MG ENTERIC TAB PO SCH (10:20)
[2018-10-14] MEDS: HEPARIN SOD (PORCINE) 5000 UNITS/ML VIAL SQ SCH ×3 (05:47→21:51)
[2018-10-14 06:00] VITALS: BP 124/77
[2018-10-14] MEDS: LEVALBUTEROL 1.25 MG/0.5 ML CONCENTRATE NEB INH PRN ×3 (07:27→17:27)
[2018-10-14] MEDS: TIOTROPIUM INHALER/CAPSULE (SPIRIVA) INH SCH (07:27)
[2018-10-14] MEDS: SYMBICORT 160/4.5MCG INHALER 6GM INH SCH ×2 (07:27→19:44)
[2018-10-14] MEDS: HumaLOG INSULIN (NovoLOG) PER UNIT SC SCH ×4 (07:30→21:51)
[2018-10-14] MEDS: ATORVASTATIN 10 MG TAB PO SCH (09:00)
[2018-10-14] MEDS: PANTOPRAZOLE 40MG TAB (PROTONIX) PO SCH (09:00)
[2018-10-14] MEDS: FUROSEMIDE 40 MG TAB PO SCH ×2 (09:00→17:00)
[2018-10-14] MEDS: predniSONE 10 MG TAB PO SCH (09:00)
[2018-10-14] MEDS: ASPIRIN 81 MG ENTERIC TAB PO SCH (09:00)
[2018-10-14] MEDS: LEVEMIR (INSULIN DETEMIR) 1 UNITS/0.01ML SC SCH (09:00)
[2018-10-15 06:00] VITALS: BP 121/59
[2018-10-15] MEDS: HEPARIN SOD (PORCINE) 5000 UNITS/ML VIAL SQ SCH ×3 (06:03→22:01)
[2018-10-15] MEDS: HumaLOG INSULIN (NovoLOG) PER UNIT SC SCH ×4 (07:30→22:01)
[2018-10-15] MEDS: TIOTROPIUM INHALER/CAPSULE (SPIRIVA) INH SCH (08:00)
[2018-10-15] MEDS: predniSONE 10 MG TAB PO SCH (09:00)
[2018-10-15] MEDS: FUROSEMIDE 40 MG TAB PO SCH ×2 (09:00→17:00)
[2018-10-15] MEDS: BACTRIM 160MG/800MG DS TAB PO SCH (09:00)
[2018-10-15] MEDS: PANTOPRAZOLE 40MG TAB (PROTONIX) PO SCH (09:00)
[2018-10-15] MEDS: ASPIRIN 81 MG ENTERIC TAB PO SCH (09:00)
[2018-10-15] MEDS: LEVEMIR (INSULIN DETEMIR) 1 UNITS/0.01ML SC SCH (09:00)
[2018-10-15] MEDS: SYMBICORT 160/4.5MCG INHALER 6GM INH SCH ×2 (09:00→22:00)
[2018-10-15] MEDS: ATORVASTATIN 10 MG TAB PO SCH (09:00)
[2018-10-15] MEDS: LEVALBUTEROL 1.25 MG/0.5 ML CONCENTRATE NEB INH PRN ×3 (11:10→22:00)
[2018-10-16 06:00] VITALS: BP 121/59
[2018-10-16] MEDS: HEPARIN SOD (PORCINE) 5000 UNITS/ML VIAL SQ SCH ×3 (06:00→22:39)
[2018-10-16] MEDS: SYMBICORT 160/4.5MCG INHALER 6GM INH SCH ×2 (07:20→18:05)
[2018-10-16] MEDS: TIOTROPIUM INHALER/CAPSULE (SPIRIVA) INH SCH (07:20)
[2018-10-16] MEDS: HumaLOG INSULIN (NovoLOG) PER UNIT SC SCH ×4 (07:30→22:00)
--- NOTE | 2018-10-16 08:57 | IPNPDOC ---
Date Seen The patient was seen on 10/16/18. Progress Note SUBJECTIVE: Pt says, " I feel horrible. My legs are swollen and lasix doesn't work for me." Per Rn, pt refuses lasix and often decides when to take her meds. No SOB or cough. OBJECTIVE PHYSICAL EXAMINATION: VITAL SIGNS: Please see below. GENERAL: Frail disheveled elderly female lying in bed on her right side she does not appear to be in any acute distress she is awake alert oriented 3 speak in complete sentences with no accessory muscle use HEENT: Pupils are equally round reactive to light she has moist mucous membranes mild elevation in her CVP CARDIOVASCULAR: S1-S2 regular. RESPIRATORY: Fairly Good air movement diminished breath sounds at the bases with a prolonged expiratory phase and audible wheezes some scattered bibasilar Rales. ABDOMINAL: Bowel sounds present abdomen soft and nontender EXTREMITIES: To 2+ edema bilaterally LABORATORY DATA, IMAGING STUDIES, MICROBIOLOGY: Please see below. DVT prophylaxis ordered?: Heparin ASSESSMENT AND PLAN: This is a 83-year-old female with shortness of breath. 1. Shortness of breath-patient has chronic hypoxic respiratory failure secondary to chronic COPD at this time she is at her baseline respiratory status. She does appear to be somewhat volume overloadedbecause of medical noncompliance with lasix. she recently had an echocardiogram that revealed preserved ejection fraction mild left ventricular hypertrophy with grade 1 diastolic dysfunction. The patient is currently awaiting placement she has remained medically stable for extended period of time. She is continued on her baseline 2 L of oxygen. She is continued on Spiriva and Symbicort Xopenex Mucinex and prednisone. currently under ALC status PFS appreciated 2. Urinary Tract Infection: Resolved the patient completed a course of therapy 3. Recent treatment for HCAP: Resolved she's completed a course of therapy 4. DM2 - c/w ISS and Levemir 5 units qAM patient is only intermittently compliant even in hospital extensive time spent bedside counseling the patient regarding the importance of taking insulin 5. Hx of LLE DVT: Not on any anticoagulation 6. Hx of TIA: c/w ASA, refuses statin 7. Normocytic anemia: Chronic and stable 8. Hx of Nephrectomy: Chronic and stable 9. Anxiety: c/w Alprazolam 10.CAD s/p stent: c/w ASA refuses statin not on any beta yaw likely related to her pulmonary disease 11. Gastroesophageal reflux disease: c/w Omeprazole 12. CHF with preserved ejection fraction mild left ventricular hypertrophy with grade 1 diastolic dysfunction, exacerbation with increased LE edema due to refusal to take lasix. strict i/o, weigh daily. 1.5 liter fluid restriction. trial of torsemide. recheck cxr. VS, I&O, 24H, Fishbone Vital Signs/I&O Vital Signs Date Time Temp Pulse Resp B/P (MAP) Pulse Ox O2 Delivery O2 Flow Rate FiO2 10/16/18 06:00 98.5 95 20 121/59 (79) 99 Nasal Cannula 3.0 I&O- Last 24 Hours up to 6 AM 10/16/18 06:00 Intake Total 1375 ml Output Total 250 ml Balance 1125 ml Laboratory Data 24H LABS Laboratory Tests 2 10/15/18 11:26: Bedside Glucose (Misc Panel) 179H 10/15/18 16:39: Bedside Glucose (Misc Panel) 114H 10/15/18 20:47: Bedside Glucose (Misc Panel) 181H 10/16/18 06:19: Bedside Glucose (Misc Panel) 184H VIKASH ANTHONY MD Oct 16, 2018 06:45
[2018-10-16] MEDS: LEVEMIR (INSULIN DETEMIR) 1 UNITS/0.01ML SC SCH (09:00)
[2018-10-16] MEDS ORDERED: TORSEMIDE 20 MG TAB PO ONE (09:00)
[2018-10-16] MEDS: predniSONE 10 MG TAB PO SCH (09:00)
[2018-10-16] MEDS: ASPIRIN 81 MG ENTERIC TAB PO SCH (09:00)
[2018-10-16] MEDS: PANTOPRAZOLE 40MG TAB (PROTONIX) PO SCH (09:00)
[2018-10-16] MEDS: ATORVASTATIN 10 MG TAB PO SCH (09:00)
--- NOTE | 2018-10-16 10:03 | REP ---
Portable chest x-ray: Sitting AP view. History: History of CHF. Increased lower extremity edema. Comparison study: July 31, 2018. Findings: The patient is status post median sternotomy. Oxygen delivery tubing is seen. There is increased density in the left base behind the heart obscuring the left hemidiaphragm consistent with increased pleural fluid and/or atelectasis or infiltrate in the left lower lobe. Heart is not felt to be enlarged. Pulmonary vasculature does not appear to be increased. Impression: Increased density left lower lobe region may be increased left pleural effusion versus left lower lobe parenchymal disease. Electronically Signed by Chau Paulson MD 10/16/2018 04:40 P
[2018-10-17] MEDS: LEVALBUTEROL 1.25 MG/0.5 ML CONCENTRATE NEB INH PRN ×2 (02:04→09:57)
[2018-10-17] MEDS: HEPARIN SOD (PORCINE) 5000 UNITS/ML VIAL SQ SCH ×3 (06:00→22:00)
[2018-10-17] MEDS: TIOTROPIUM INHALER/CAPSULE (SPIRIVA) INH SCH (07:30)
[2018-10-17] MEDS: SYMBICORT 160/4.5MCG INHALER 6GM INH SCH ×2 (07:30→22:05)
[2018-10-17] MEDS: HumaLOG INSULIN (NovoLOG) PER UNIT SC SCH ×4 (07:30→21:00)
[2018-10-17] MEDS: ASPIRIN 81 MG ENTERIC TAB PO SCH (08:34)
[2018-10-17] MEDS: predniSONE 10 MG TAB PO SCH (08:34)
[2018-10-17] MEDS: TORSEMIDE 20 MG TAB PO SCH (08:36)
[2018-10-17] MEDS: BACTRIM 160MG/800MG DS TAB PO SCH (08:36)
[2018-10-17] MEDS: LEVEMIR (INSULIN DETEMIR) 1 UNITS/0.01ML SC SCH (08:37)
[2018-10-17] MEDS: PANTOPRAZOLE 40MG TAB (PROTONIX) PO SCH (08:37)
[2018-10-17] MEDS: ATORVASTATIN 10 MG TAB PO SCH (08:37)
[2018-10-18] MEDS: HEPARIN SOD (PORCINE) 5000 UNITS/ML VIAL SQ SCH ×3 (05:15→21:37)
[2018-10-18] MEDS: LEVALBUTEROL 1.25 MG/0.5 ML CONCENTRATE NEB INH PRN ×2 (05:43→11:55)
[2018-10-18 06:00] VITALS: BP 133/62
[2018-10-18] MEDS: HumaLOG INSULIN (NovoLOG) PER UNIT SC SCH ×4 (07:30→21:00)
[2018-10-18] MEDS: SYMBICORT 160/4.5MCG INHALER 6GM INH SCH ×2 (07:41→21:45)
[2018-10-18] MEDS: TIOTROPIUM INHALER/CAPSULE (SPIRIVA) INH SCH (07:41)
[2018-10-18] MEDS: predniSONE 10 MG TAB PO SCH (09:00)
[2018-10-18] MEDS: LEVEMIR (INSULIN DETEMIR) 1 UNITS/0.01ML SC SCH (09:00)
[2018-10-18] MEDS: ASPIRIN 81 MG ENTERIC TAB PO SCH (09:00)
[2018-10-18] MEDS: PANTOPRAZOLE 40MG TAB (PROTONIX) PO SCH (09:00)
[2018-10-18] MEDS: TORSEMIDE 20 MG TAB PO SCH (09:00)
[2018-10-18] MEDS: ATORVASTATIN 10 MG TAB PO SCH (09:00)
[2018-10-19] MEDS: LEVALBUTEROL 1.25 MG/0.5 ML CONCENTRATE NEB INH PRN ×3 (02:43→14:21)
[2018-10-19] MEDS: HEPARIN SOD (PORCINE) 5000 UNITS/ML VIAL SQ SCH ×3 (05:17→21:10)
[2018-10-19 06:00] VITALS: BP 127/58
[2018-10-19] MEDS: TIOTROPIUM INHALER/CAPSULE (SPIRIVA) INH SCH (07:11)
[2018-10-19] MEDS: SYMBICORT 160/4.5MCG INHALER 6GM INH SCH ×2 (07:11→21:16)
[2018-10-19] MEDS: HumaLOG INSULIN (NovoLOG) PER UNIT SC SCH ×4 (07:30→21:00)
[2018-10-19] MEDS: ASPIRIN 81 MG ENTERIC TAB PO SCH (08:58)
[2018-10-19] MEDS: BACTRIM 160MG/800MG DS TAB PO SCH (08:58)
[2018-10-19] MEDS: TORSEMIDE 20 MG TAB PO SCH (08:58)
[2018-10-19] MEDS: predniSONE 10 MG TAB PO SCH (08:58)
[2018-10-19] MEDS: LEVEMIR (INSULIN DETEMIR) 1 UNITS/0.01ML SC SCH (08:59)
[2018-10-19] MEDS: PANTOPRAZOLE 40MG TAB (PROTONIX) PO SCH (08:59)
[2018-10-19] MEDS: ATORVASTATIN 10 MG TAB PO SCH (08:59)
[2018-10-20] MEDS: HEPARIN SOD (PORCINE) 5000 UNITS/ML VIAL SQ SCH ×3 (05:07→22:00)
[2018-10-20 06:00] VITALS: BP 142/74
[2018-10-20] MEDS: HumaLOG INSULIN (NovoLOG) PER UNIT SC SCH ×4 (07:30→21:00)
[2018-10-20] MEDS: SYMBICORT 160/4.5MCG INHALER 6GM INH SCH ×2 (07:43→20:18)
[2018-10-20] MEDS: TIOTROPIUM INHALER/CAPSULE (SPIRIVA) INH SCH (07:44)
[2018-10-20] MEDS: TORSEMIDE 20 MG TAB PO SCH (09:00)
[2018-10-20] MEDS: PANTOPRAZOLE 40MG TAB (PROTONIX) PO SCH (09:00)
[2018-10-20] MEDS: LEVEMIR (INSULIN DETEMIR) 1 UNITS/0.01ML SC SCH (09:00)
[2018-10-20] MEDS: ASPIRIN 81 MG ENTERIC TAB PO SCH (09:53)
[2018-10-20] MEDS: ATORVASTATIN 10 MG TAB PO SCH (09:53)
[2018-10-20] MEDS: predniSONE 10 MG TAB PO SCH (09:53)
[2018-10-21] MEDS: HEPARIN SOD (PORCINE) 5000 UNITS/ML VIAL SQ SCH ×3 (06:00→21:11)
[2018-10-21] MEDS: SYMBICORT 160/4.5MCG INHALER 6GM INH SCH ×2 (07:23→20:42)
[2018-10-21] MEDS: TIOTROPIUM INHALER/CAPSULE (SPIRIVA) INH SCH (07:23)
[2018-10-21] MEDS: HumaLOG INSULIN (NovoLOG) PER UNIT SC SCH ×4 (07:30→21:00)
[2018-10-21] MEDS: ATORVASTATIN 10 MG TAB PO SCH (09:00)
[2018-10-21] MEDS: PANTOPRAZOLE 40MG TAB (PROTONIX) PO SCH (09:00)
[2018-10-21] MEDS: TORSEMIDE 20 MG TAB PO SCH (09:00)
[2018-10-21] MEDS: ASPIRIN 81 MG ENTERIC TAB PO SCH (09:00)
[2018-10-21] MEDS: LEVEMIR (INSULIN DETEMIR) 1 UNITS/0.01ML SC SCH (09:00)
[2018-10-21] MEDS: predniSONE 10 MG TAB PO SCH (09:00)
[2018-10-21] MEDS: LEVALBUTEROL 1.25 MG/0.5 ML CONCENTRATE NEB INH PRN (15:21)
--- NOTE | 2018-10-22 01:04 | IPNPDOC ---
Text Note Date of Service The patient was seen on 10/15/18. NOTE SUBJECTIVE: Pt is pleasant this morning does not offer any complaints. she otherwise states that her breathing is as it always is. Per RN, however, patient has been refusing her meds everyday, and has been very inappropriate with her comments with nursing. She denies any chest pain, pressure. OBJECTIVE PHYSICAL EXAMINATION: VITAL SIGNS: Please see below. GENERAL: Frail disheveled elderly female lying in bed on her right side she does not appear to be in any acute distress she is awake alert oriented 3 speak in complete sentences with no accessory muscle use HEENT: Pupils are equally round reactive to light she has moist mucous membranes mild elevation in her CVP CARDIOVASCULAR: S1-S2 regular. RESPIRATORY: Fairly Good air movement diminished breath sounds at the bases with a prolonged expiratory phase and audible wheezes some scattered bibasilar Rales. ABDOMINAL: Bowel sounds present abdomen soft and nontender EXTREMITIES: To 2+ edema bilaterally LABORATORY DATA, IMAGING STUDIES, MICROBIOLOGY: Please see below. DVT prophylaxis ordered?: Heparin ASSESSMENT AND PLAN: This is a 83-year-old female with shortness of breath. 1. Shortness of breath-patient has chronic hypoxic respiratory failure secondary to chronic COPD at this time she is at her baseline respiratory status. She does appear to be somewhat volume overloadedbecause of medical noncompliance with lasix. she recently had an echocardiogram that revealed preserved ejection fraction mild left ventricular hypertrophy with grade 1 diastolic dysfunction. The patient is currently awaiting placement she has remained medically stable for extended period of time. She is continued on her baseline 2 L of oxygen. She is continued on Spiriva and Symbicort Xopenex Mucinex and prednisone. currently under ALC status PFS appreciated 2. Urinary Tract Infection: Resolved the patient completed a course of therapy 3. Recent treatment for HCAP: Resolved she's completed a course of therapy 4. DM2 - c/w ISS and Levemir 5 units qAM patient is only intermittently comp liant even in hospital extensive time spent bedside counseling the patient regarding the importance of taking insulin 5. Hx of LLE DVT: Not on any anticoagulation 6. Hx of TIA: c/w ASA, refuses statin 7. Normocytic anemia: Chronic and stable 8. Hx of Nephrectomy: Chronic and stable 9. Anxiety: c/w Alprazolam 10.CAD s/p stent: c/w ASA refuses statin not on any beta yaw likely related to her pulmonary disease 11. Gastroesophageal reflux disease: c/w Omeprazole VS,Fishbone, I+O VS, Fishbone, I+O Vital Signs Date Time Temp Pulse Resp B/P (MAP) Pulse Ox O2 Delivery O2 Flow Rate FiO2 10/15/18 09:00 3.0 10/15/18 06:00 98.3 92 20 121/59 (79) 99 Nasal Cannula I&O- Last 24 Hours up to 6 AM 10/15/18 06:00 Intake Total 420 ml Balance 420 ml GEORGIA TRIMBLE MD Oct 15, 2018 23:23
[2018-10-22 06:00] VITALS: BP 141/63
[2018-10-22] MEDS: HEPARIN SOD (PORCINE) 5000 UNITS/ML VIAL SQ SCH ×3 (06:00→22:00)
[2018-10-22] MEDS: HumaLOG INSULIN (NovoLOG) PER UNIT SC SCH ×4 (07:30→21:00)
[2018-10-22] MEDS: SYMBICORT 160/4.5MCG INHALER 6GM INH SCH ×2 (07:33→22:23)
[2018-10-22] MEDS: TIOTROPIUM INHALER/CAPSULE (SPIRIVA) INH SCH (07:33)
[2018-10-22] MEDS: PANTOPRAZOLE 40MG TAB (PROTONIX) PO SCH (09:00)
[2018-10-22] MEDS: BACTRIM 160MG/800MG DS TAB PO SCH ×2 (09:00→10:03)
[2018-10-22] MEDS: LEVEMIR (INSULIN DETEMIR) 1 UNITS/0.01ML SC SCH (09:00)
[2018-10-22] MEDS: predniSONE 10 MG TAB PO SCH (10:00)
[2018-10-22] MEDS: ATORVASTATIN 10 MG TAB PO SCH (10:00)
[2018-10-22] MEDS: TORSEMIDE 20 MG TAB PO SCH (10:00)
[2018-10-22] MEDS: ASPIRIN 81 MG ENTERIC TAB PO SCH (10:01)
[2018-10-22] MEDS: LEVALBUTEROL 1.25 MG/0.5 ML CONCENTRATE NEB INH PRN (22:23)
[2018-10-23] MEDS: HEPARIN SOD (PORCINE) 5000 UNITS/ML VIAL SQ SCH ×3 (05:38→22:00)
[2018-10-23 06:00] VITALS: BP 133/63
[2018-10-23] MEDS: HumaLOG INSULIN (NovoLOG) PER UNIT SC SCH ×4 (07:30→21:00)
[2018-10-23] MEDS: TIOTROPIUM INHALER/CAPSULE (SPIRIVA) INH SCH (07:31)
[2018-10-23] MEDS: SYMBICORT 160/4.5MCG INHALER 6GM INH SCH ×2 (07:32→21:47)
[2018-10-23] MEDS: LEVEMIR (INSULIN DETEMIR) 1 UNITS/0.01ML SC SCH (08:34)
[2018-10-23] MEDS: PANTOPRAZOLE 40MG TAB (PROTONIX) PO SCH (08:48)
[2018-10-23] MEDS: predniSONE 10 MG TAB PO SCH (08:51)
[2018-10-23] MEDS: ASPIRIN 81 MG ENTERIC TAB PO SCH (08:51)
[2018-10-23] MEDS: TORSEMIDE 20 MG TAB PO SCH (08:51)
[2018-10-23] MEDS: ATORVASTATIN 10 MG TAB PO SCH (08:52)
[2018-10-23] MEDS: LEVALBUTEROL 1.25 MG/0.5 ML CONCENTRATE NEB INH PRN (14:51)
[2018-10-24] MEDS: LEVALBUTEROL 1.25 MG/0.5 ML CONCENTRATE NEB INH PRN ×3 (05:00→13:14)
[2018-10-24] MEDS: HEPARIN SOD (PORCINE) 5000 UNITS/ML VIAL SQ SCH ×3 (05:59→22:00)
[2018-10-24 06:00] VITALS: BP 121/77
[2018-10-24] MEDS: HumaLOG INSULIN (NovoLOG) PER UNIT SC SCH ×4 (07:30→21:00)
[2018-10-24] MEDS: TIOTROPIUM INHALER/CAPSULE (SPIRIVA) INH SCH (08:49)
[2018-10-24] MEDS: SYMBICORT 160/4.5MCG INHALER 6GM INH SCH ×2 (08:49→23:00)
[2018-10-24] MEDS: PANTOPRAZOLE 40MG TAB (PROTONIX) PO SCH (09:00)
[2018-10-24] MEDS: ATORVASTATIN 10 MG TAB PO SCH (09:00)
[2018-10-24] MEDS: LEVEMIR (INSULIN DETEMIR) 1 UNITS/0.01ML SC SCH (09:00)
[2018-10-24] MEDS: TORSEMIDE 20 MG TAB PO SCH ×2 (09:00→09:31)
[2018-10-24] MEDS: ASPIRIN 81 MG ENTERIC TAB PO SCH (09:31)
[2018-10-24] MEDS: BACTRIM 160MG/800MG DS TAB PO SCH (09:31)
[2018-10-24] MEDS: predniSONE 10 MG TAB PO SCH (09:31)
[2018-10-25] MEDS: LEVALBUTEROL 1.25 MG/0.5 ML CONCENTRATE NEB INH PRN ×2 (01:57→19:19)
[2018-10-25] MEDS: HEPARIN SOD (PORCINE) 5000 UNITS/ML VIAL SQ SCH ×3 (05:58→22:00)
[2018-10-25 06:00] VITALS: BP 144/68
[2018-10-25] MEDS: HumaLOG INSULIN (NovoLOG) PER UNIT SC SCH ×4 (07:15→21:00)
[2018-10-25] MEDS: TIOTROPIUM INHALER/CAPSULE (SPIRIVA) INH SCH (08:24)
[2018-10-25] MEDS: SYMBICORT 160/4.5MCG INHALER 6GM INH SCH ×2 (08:24→19:19)
[2018-10-25] MEDS: LEVEMIR (INSULIN DETEMIR) 1 UNITS/0.01ML SC SCH (09:00)
[2018-10-25] MEDS: PANTOPRAZOLE 40MG TAB (PROTONIX) PO SCH (09:00)
[2018-10-25] MEDS: ATORVASTATIN 10 MG TAB PO SCH (09:00)
[2018-10-25] MEDS: TORSEMIDE 20 MG TAB PO SCH (09:30)
[2018-10-25] MEDS: ASPIRIN 81 MG ENTERIC TAB PO SCH (09:30)
[2018-10-25] MEDS: predniSONE 10 MG TAB PO SCH (09:30)
--- NOTE | 2018-10-25 11:48 | IPNPDOC ---
Text Note Date of Service The patient was seen on 10/25/18. NOTE SUBJECTIVE: Pt is unpleasant this morning says her legs are swollen and painful with bruises and blisters. She has been cursing the nurses and Aids. Refusing meds. refusing all injections, heparin and insulin. she otherwise states that her breathing is as it always is. She denies any chest pain, pressure. OBJECTIVE PHYSICAL EXAMINATION: VITAL SIGNS: Please see below. GENERAL: Frail disheveled elderly female lying in bed on her right side she does not appear to be in any acute distress she is awake alert oriented 3 speak in complete sentences with no accessory muscle use HEENT: Pupils are equally round reactive to light she has moist mucous membranes mild elevation in her CVP CARDIOVASCULAR: S1-S2 regular. RESPIRATORY: Fairly Good air movement diminished breath sounds at the bases with a prolonged expiratory phase and audible wheezes some scattered bibasilar Rales. ABDOMINAL: Bowel sounds present abdomen soft and nontender EXTREMITIES: To 2+ edema bilaterally LABORATORY DATA, IMAGING STUDIES, MICROBIOLOGY: Please see below. DVT prophylaxis ordered?: Heparin ASSESSMENT AND PLAN: This is a 83-year-old female with shortness of breath. End stage COPD with chronic hypoxic respiratory failure with severe pulmonary hypertension and Corpulmonale. at this time she is at her baseline respiratory status. She recently had an echocardiogram that revealed preserved ejection fraction mild left ventricular hypertrophy with grade 1 diastolic dysfunction. The patient is currently awaiting placement she has remained medically stable for extended period of time. She is continued on her baseline 2 L of oxygen. She is continued on Spiriva and Symbicort Xopenex Mucinex and prednisone. Continue Bactrim prophylaxis. Currently under ALC status PFS appreciated. Increased leg edema this week will increase torsemide to 40 mg daily. Have reduced her prednisone to 5 mg daily. Urinary Tract Infection: Resolved the patient completed a course of therapy Treatment for HCAP during this hospitalization : Resolved she's completed a c ourse of therapy DM2 - c/w ISS and Levemir 5 units pateint has not taken any insulin in 3 weeks. Hx of LLE DVT: Not on any anticoagulation Hx of TIA: c/w ASA, refuses statin Normocytic anemia: Chronic and stable will transfuse if HH < 7.0 Hx of Nephrectomy: Chronic and stable Anxiety: c/w Alprazolam CAD s/p stent: c/w ASA refuses statin not on any beta yaw likely related to her pulmonary disease Gastroesophageal reflux disease: c/w Omeprazole Behavioral issues: constant bad behavior with nurses and aids, very unpleasant personality with shouting and cursing VS,Fishbone, I+O VS, Fishbone, I+O Vital Signs Date Time Temp Pulse Resp B/P (MAP) Pulse Ox O2 Delivery O2 Flow Rate FiO2 10/25/18 06:00 98.5 91 22 144/68 (93) 99 Nasal Cannula 2.0 I&O- Last 24 Hours up to 6 AM 10/25/18 06:00 Intake Total 1366 ml Output Total 970 ml Balance 396 ml GEORGIA TRIMBLE MD Oct 25, 2018 11:48
[2018-10-25] MEDS: HYDROCORTISONE 0.5% CREAM 30 GM TOP SCH (22:10)
[2018-10-26 06:00] VITALS: BP 139/74
[2018-10-26] MEDS: HEPARIN SOD (PORCINE) 5000 UNITS/ML VIAL SQ SCH ×3 (06:00→20:45)
[2018-10-26] MEDS: TIOTROPIUM INHALER/CAPSULE (SPIRIVA) INH SCH (07:19)
[2018-10-26] MEDS: SYMBICORT 160/4.5MCG INHALER 6GM INH SCH ×2 (07:19→21:00)
[2018-10-26] MEDS: HumaLOG INSULIN (NovoLOG) PER UNIT SC SCH ×4 (07:30→20:44)
[2018-10-26] MEDS: ATORVASTATIN 10 MG TAB PO SCH (09:00)
[2018-10-26] MEDS: LEVEMIR (INSULIN DETEMIR) 1 UNITS/0.01ML SC SCH (09:00)
[2018-10-26] MEDS: HYDROCORTISONE 0.5% CREAM 30 GM TOP SCH ×2 (09:00→20:45)
[2018-10-26] MEDS: PANTOPRAZOLE 40MG TAB (PROTONIX) PO SCH (09:00)
[2018-10-26] MEDS: BACTRIM 160MG/800MG DS TAB PO SCH (12:01)
[2018-10-26] MEDS: ASPIRIN 81 MG ENTERIC TAB PO SCH (12:02)
[2018-10-26] MEDS: predniSONE 5 MG TAB PO SCH (12:02)
[2018-10-26] MEDS: TORSEMIDE 20 MG TAB PO SCH (12:02)
[2018-10-26] MEDS: LEVALBUTEROL 1.25 MG/0.5 ML CONCENTRATE NEB INH PRN (14:26)
[2018-10-27] MEDS: NITROGLYCERIN 0.4 MG SUBL TABLET SL PRN (00:55)
[2018-10-27 01:40] LABS: CPK CREATINE PHOSPHOKINASE 119 U/L (26-192); MB/CK RELATIVE INDEX 1.93 (< OR =4); TROPONIN I < 0.02 NG/ML (< 0.10)
[2018-10-27] MEDS: LEVALBUTEROL 1.25 MG/0.5 ML CONCENTRATE NEB INH PRN ×3 (01:43→20:04)
[2018-10-27] MEDS: HEPARIN SOD (PORCINE) 5000 UNITS/ML VIAL SQ SCH ×3 (05:44→20:28)
[2018-10-27 06:00] VITALS: BP 133/60
[2018-10-27] MEDS: TIOTROPIUM INHALER/CAPSULE (SPIRIVA) INH SCH (07:28)
[2018-10-27] MEDS: SYMBICORT 160/4.5MCG INHALER 6GM INH SCH ×2 (07:29→20:04)
[2018-10-27] MEDS: HumaLOG INSULIN (NovoLOG) PER UNIT SC SCH ×4 (07:30→20:28)
[2018-10-27] MEDS: TORSEMIDE 20 MG TAB PO SCH (09:00)
[2018-10-27] MEDS: HYDROCORTISONE 0.5% CREAM 30 GM TOP SCH ×2 (09:00→20:28)
[2018-10-27] MEDS: LEVEMIR (INSULIN DETEMIR) 1 UNITS/0.01ML SC SCH (09:00)
[2018-10-27] MEDS: PANTOPRAZOLE 40MG TAB (PROTONIX) PO SCH (09:00)
[2018-10-27] MEDS: ATORVASTATIN 10 MG TAB PO SCH (09:00)
[2018-10-27] MEDS: ASPIRIN 81 MG ENTERIC TAB PO SCH (09:37)
[2018-10-27] MEDS: predniSONE 5 MG TAB PO SCH (09:37)
[2018-10-27] MEDS: ALPRAZolam 0.25 MG TAB PO PRN (20:27)
[2018-10-28] MEDS: LEVALBUTEROL 1.25 MG/0.5 ML CONCENTRATE NEB INH PRN ×3 (02:09→23:25)
[2018-10-28] MEDS: HEPARIN SOD (PORCINE) 5000 UNITS/ML VIAL SQ SCH ×3 (05:43→21:01)
[2018-10-28] MEDS: ACETAMINOPHEN TAB 650MG DOSE (2X325MG) PO PRN (05:53)
[2018-10-28 06:00] VITALS: BP 136/83
[2018-10-28 07:14] LABS: BASO # 0.1 10^3/uL (0.0-0.2); BASO % 0.2 % (0.0-1.0); EOS # 0.1 10^3/uL (0.0-0.50); EOS % 0.3 % (0.0-3.0); HEMATOCRIT 24.1 % (36.0-47.0); HEMOGLOBIN 7.6 g/dl (12.0-15.5); LYMPH # 1.1 10^3/uL (1.5-4.5); LYMPH % 5.2 % (24.0-44.0); MEAN CORPUSCULAR HEMOGLOBIN 25.5 pg (27.0-33.0); MEAN CORPUSCULAR HGB CONC 31.5 g/dl (32.0-36.5); MEAN CORPUSCULAR VOLUME 80.9 fl (80.0-96.0); MONO # 1.6 10^3/uL (0.0-0.8); NEUTROPHILS # 17.4 10^3/uL (1.8-7.7); NEUTROPHILS % 85.9 % (36.0-66.0); PLATELET COUNT, AUTOMATED 477 10^3/uL (150-450); RED BLOOD COUNT 2.98 10^6/uL (4.00-5.40); WHITE BLOOD COUNT 20.2 10^3/uL (4.0-10.0)
[2018-10-28] MEDS: HumaLOG INSULIN (NovoLOG) PER UNIT SC SCH ×4 (07:30→20:16)
[2018-10-28 07:35] LABS: BLOOD UREA NITROGEN 19 MG/DL (7-18); CALCIUM LEVEL 8.7 MG/DL (8.8-10.2); CARBON DIOXIDE LEVEL 27 MEQ/L (21-32); CHLORIDE LEVEL 96 MEQ/L (98-107); CREATININE FOR GFR 0.91 MG/DL (0.55-1.30); GLOMERULAR FILTRATION RATE > 60.0 (>32); GLUCOSE, FASTING 168 MG/DL (70-100); SODIUM LEVEL 133 MEQ/L (136-145)
[2018-10-28] MEDS: TIOTROPIUM INHALER/CAPSULE (SPIRIVA) INH SCH (07:48)
[2018-10-28] MEDS: SYMBICORT 160/4.5MCG INHALER 6GM INH SCH ×2 (07:49→21:04)
[2018-10-28] MEDS: ATORVASTATIN 10 MG TAB PO SCH (07:56)
[2018-10-28] MEDS: TORSEMIDE 20 MG TAB PO SCH (07:56)
[2018-10-28] MEDS: ASPIRIN 81 MG ENTERIC TAB PO SCH (07:56)
[2018-10-28] MEDS: predniSONE 5 MG TAB PO SCH (07:56)
[2018-10-28] MEDS: LEVEMIR (INSULIN DETEMIR) 1 UNITS/0.01ML SC SCH (07:57)
[2018-10-28] MEDS: PANTOPRAZOLE 40MG TAB (PROTONIX) PO SCH (07:57)
[2018-10-28] MEDS: HYDROCORTISONE 0.5% CREAM 30 GM TOP SCH ×2 (07:58→20:17)
[2018-10-28] MEDS ORDERED: POTASSIUM CHLORIDE 10 MEQ SR TABLET PO ONE (09:00)
--- NOTE | 2018-10-28 09:02 | REP ---
Clinical: Fever and leukocytosis with cough. Comparison: 07/31/2018, 10/16/2018. Findings: Mediastinum and cardiac silhouette are stable. Diffuse chronic interstitial changes noted bilaterally. Superimposed right lower lobe consolidation and effusion identified along with trace left basilar atelectasis. No pneumothorax. Skeletal structures stable. Impression: Right lower lobe consolidation and effusion with trace left basilar atelectasis. Electronically Signed by Jacobo Martinez MD 10/28/2018 08:53 A
--- NOTE | 2018-10-28 11:44 | ECGEPIP ---
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
[2018-10-29] MEDS: LEVALBUTEROL 1.25 MG/0.5 ML CONCENTRATE NEB INH PRN ×4 (03:39→23:42)
[2018-10-29] MEDS: HEPARIN SOD (PORCINE) 5000 UNITS/ML VIAL SQ SCH ×3 (05:21→21:07)
[2018-10-29 06:00] VITALS: BP 127/60
[2018-10-29] MEDS: HumaLOG INSULIN (NovoLOG) PER UNIT SC SCH ×4 (07:30→21:00)
[2018-10-29] MEDS: TIOTROPIUM INHALER/CAPSULE (SPIRIVA) INH SCH (08:39)
[2018-10-29] MEDS: SYMBICORT 160/4.5MCG INHALER 6GM INH SCH ×2 (08:39→20:13)
[2018-10-29] MEDS: HYDROCORTISONE 0.5% CREAM 30 GM TOP SCH ×2 (09:00→21:00)
[2018-10-29] MEDS: LEVEMIR (INSULIN DETEMIR) 1 UNITS/0.01ML SC SCH (09:00)
[2018-10-29] MEDS: ATORVASTATIN 10 MG TAB PO SCH (09:00)
[2018-10-29] MEDS: PANTOPRAZOLE 40MG TAB (PROTONIX) PO SCH (09:00)
[2018-10-29] MEDS: BACTRIM 160MG/800MG DS TAB PO SCH (09:18)
[2018-10-29] MEDS: ASPIRIN 81 MG ENTERIC TAB PO SCH (09:18)
[2018-10-29] MEDS: TORSEMIDE 20 MG TAB PO SCH (09:18)
[2018-10-29] MEDS: predniSONE 5 MG TAB PO SCH (09:18)
--- NOTE | 2018-10-29 09:21 | IPNPDOC ---
Subjective Date Seen The patient was seen on 10/29/18. Subjective Chief Complaint/HPI . General: Denies: Chills, Night Sweats Constitutional: Denies: Chills, Fever, Malaise, Night Sweats, Weakness, Fatigue Skin: Denies: Rash, Lesions Pulmonary: Denies: Dyspnea, Cough Cardiovascular: Denies: Chest Pain, Palpitations, Edema, Lt Headedness Gastrointestinal: Denies: Nausea, Vomiting, Abdominal Pain, Diarrhea, Constipation, Melena Genitourinary: Denies: Dysuria, Frequency Neurological: Denies: Weakness Objective Physical Examination General Exam: Positive: Alert, Cooperative, No Acute Distress Eye Exam: Negative: Sclera icteric ENT Exam: Positive: Atraumatic, Mucous membr. moist/pink Chest Exam: Positive: Diminished; Negative: Normal air movement, Rales, Rhonchi, Wheezing Heart Exam: Positive: Rate Normal, Normal S1, Normal S2 Telemetry: Positive: No significant arrhythmia Abdomen Exam: Positive: Normal bowel sounds, Soft; Negative: Tenderness Extremity Exam: Positive: Swelling (1+ pitting edema in the lower extremities b/l); Negative: Edema, Tenderness Neuro Exam: Positive: Normal Speech Psych Exam: Positive: Mental status NL Assessment /Plan Assessment ASSESSMENT AND PLAN: This is a 83-year-old female with shortness of breath. End stage COPD with chronic hypoxic respiratory failure with severe pulmonary hypertension and Corpulmonale. Currently she is at her baseline respiratory status. She recently had an echocardiogram that revealed preserved ejection fraction mild left ventricular hypertrophy with grade 1 diastolic dysfunction. The patient is currently awaiting placement she has remained medically stable for extended period of time. She is continued on her baseline 2 L of oxygen. She is continued on Spiriva and Symbicort Xopenex Mucinex and prednisone. Continue Bactrim prophylaxis. Currently under ALC status PFS appreciated. Improved leg edema, c/w torsemide to 40 mg daily and prednisone 5 mg daily. 1. Re-occurrence of HCAP -Unfortunately patient developed 101.3 F fever one day ago, afebrile since then, CXR does reveal worsened right sided consolidation since prior CXR performed 10/16/18, will treat for HCAP at this time -pt allergic to levofloxacin but can take moxifloxacin, will begin this -resp panel negative, blood culture first set from 10/28/18 negative, second set pending -she states her breathing is fine, she is agreeable to take antibiotic therapy but doesn't know if she will take any more lasix therapy, she states she will think about this -she has been treated for HCAP during this hospitalization 2. Urinary Tract Infection: Resolved the patient completed a course of therapy 3. DM2 - c/w ISS and Levemir 5 units patient has not taken any insulin in over 3 weeks. 4. Hx of LLE DVT: Not on any anticoagulation 5. Hx of TIA: c/w ASA, refuses statin 6. Normocytic anemia: Chronic and stable will transfuse if HH < 7.0 7. Hx of Nephrectomy: Chronic and stable 8. Anxiety: c/w Alprazolam 9. CAD s/p stent: c/w ASA refuses statin not on any beta yaw likely related to her pulmonary disease 10. Gastroesophageal reflux disease: c/w Omeprazole Behavioral issues: the patient continues with constant bad behavior with nurses and aids, very unpleasant personality with shouting and cursing Plan/VTE VTE Prophylaxis Ordered?: Yes VS, I&O, 24H, Fishbone Vital Signs/I&O Vital Signs Date Time Temp Pulse Resp B/P (MAP) Pulse Ox O2 Delivery O2 Flow Rate FiO2 10/29/18 06:00 99.1 104 20 127/60 (82) 95 Nasal Cannula 3.0 I&O- Last 24 Hours up to 6 AM 10/29/18 06:00 Intake Total 240 ml Output Total 0 ml Balance 240 ml Laboratory Data 24H LABS Laboratory Tests 2 10/28/18 11:30: Bedside Glucose (Misc Panel) 203H 10/28/18 16:45: Bedside Glucose (Misc Panel) 253H 10/28/18 19:49: Bedside Glucose (Misc Panel) 160H Microbiology Microbiology 10/28/18 Blood Culture, Received Pending 10/28/18 Blood Culture - Preliminary, Resulted No growth after 24 hours . All specim... 10/28/18 Respiratory Virus Panel (PCR) (SHAHEED) - Final, Complete GME ATTESTATION GME ATTESTATION My faculty preceptor for this patient encounter was physically present during the encounter and was fully available. All aspects of the patient interview, examination, medical decision making process, and medical care plan development were reviewed and approved by the faculty preceptor. The faculty preceptor is aware and concurs with the plan as stated in the body of this note and will attest to such by his/her cosignature. KELLY MORA DO Oct 29, 2018 09:21
[2018-10-29] MEDS: MOXIFLOXACIN 400 MG TAB PO SCH (17:07)
[2018-10-30] MEDS: LEVALBUTEROL 1.25 MG/0.5 ML CONCENTRATE NEB INH PRN ×2 (04:10→21:13)
[2018-10-30] MEDS: HEPARIN SOD (PORCINE) 5000 UNITS/ML VIAL SQ SCH ×2 (05:00→21:00)
[2018-10-30 06:00] VITALS: BP 136/58
[2018-10-30] MEDS: HumaLOG INSULIN (NovoLOG) PER UNIT SC SCH ×4 (07:26→21:00)
[2018-10-30] MEDS: TIOTROPIUM INHALER/CAPSULE (SPIRIVA) INH SCH (07:27)
[2018-10-30] MEDS: SYMBICORT 160/4.5MCG INHALER 6GM INH SCH ×2 (07:28→21:13)
[2018-10-30] MEDS: HYDROCORTISONE 0.5% CREAM 30 GM TOP SCH (09:00)
[2018-10-30] MEDS: LEVEMIR (INSULIN DETEMIR) 1 UNITS/0.01ML SC SCH (09:00)
[2018-10-30] MEDS: TORSEMIDE 20 MG TAB PO SCH (09:22)
[2018-10-30] MEDS: predniSONE 5 MG TAB PO SCH (09:22)
[2018-10-30] MEDS: ASPIRIN 81 MG ENTERIC TAB PO SCH (09:22)
[2018-10-30] MEDS: PANTOPRAZOLE 40MG TAB (PROTONIX) PO SCH (09:22)
[2018-10-30] MEDS: ATORVASTATIN 10 MG TAB PO SCH (09:22)
[2018-10-30 09:30] LABS: BASO % 0.3 % (0.0-1.0); EOS # 0.3 10^3/uL (0.0-0.50); EOS % 1.7 % (0.0-3.0); HEMATOCRIT 21.5 % (36.0-47.0); LYMPH # 0.8 10^3/uL (1.5-4.5); LYMPH % 5.6 % (24.0-44.0); MEAN CORPUSCULAR HEMOGLOBIN 25.2 pg (27.0-33.0); MEAN CORPUSCULAR HGB CONC 31.6 g/dl (32.0-36.5); MEAN CORPUSCULAR VOLUME 79.6 fl (80.0-96.0); MONO # 1.5 10^3/uL (0.0-0.8); MONO % 9.8 % (0.0-5.0); NEUTROPHILS # 12.1 10^3/uL (1.8-7.7); NEUTROPHILS % 82.1 % (36.0-66.0); PLATELET COUNT, AUTOMATED 511 10^3/uL (150-450); WHITE BLOOD COUNT 14.7 10^3/uL (4.0-10.0)
[2018-10-30 09:35] LABS: HEMOGLOBIN 6.8 g/dl (12.0-15.5)
[2018-10-30 10:21] LABS: ALBUMIN 2.7 GM/DL (3.2-5.2); BILIRUBIN,TOTAL 0.7 MG/DL (0.2-1.0); C REACTIVE PROTEIN QUANTITATIV 24.7 MG/DL (0.00-0.30); CALCIUM LEVEL 8.6 MG/DL (8.8-10.2); GLOMERULAR FILTRATION RATE 56.1 (>32); PERCENT SATURATION 3.9 % (13.2-45.0); POTASSIUM SERUM 3.2 MEQ/L (3.5-5.1); TOTAL PROTEIN 7.1 GM/DL (6.4-8.2)
--- NOTE | 2018-10-30 10:43 | IPNPDOC ---
Subjective Date Seen The patient was seen on 10/30/18. Subjective Chief Complaint/HPI . General: Denies: Chills Pulmonary: Denies: Dyspnea, Cough Cardiovascular: Denies: Chest Pain, Palpitations Gastrointestinal: Denies: Nausea, Vomiting, Diarrhea, Constipation Neurological: Denies: Weakness Psych: Reports: Mood Normal Objective Physical Examination General Exam: Positive: Alert, Cooperative, No Acute Distress Eye Exam: Negative: Sclera icteric ENT Exam: Positive: Atraumatic, Mucous membr. moist/pink Chest Exam: Positive: Diminished; Negative: Normal air movement, Rales, Rhonchi, Wheezing Heart Exam: Positive: Rate Normal, Normal S1, Normal S2; Negative: Murmurs, Rubs Telemetry: Positive: No significant arrhythmia Abdomen Exam: Positive: Normal bowel sounds, Soft; Negative: Tenderness Extremity Exam: Positive: Swelling (1+ pitting edema in the lower extremities b/l); Negative: Edema, Tenderness Neuro Exam: Positive: Normal Speech Psych Exam: Positive: Mental status NL Assessment /Plan Assessment 1.Re-occurrence of HCAP -afebrile for over 24 hours -Patient developed 101.3 F fever one day ago, CXR revealed worsened right sided consolidation since prior CXR performed 10/16/18, c/w treatment for HCAP at this time -pt allergic to levofloxacin but can take moxifloxacin, c/w moxifloxacin therapy -resp panel negative, blood culture first set from 10/28/18 negative, second set also negative -she states her breathing is fine, she is agreeable to take antibiotic therapy, she agrees to take her lasix therapy today -she has been treated for HCAP during this hospitalization 2. Urinary Tract Infection -Resolved the patient completed a course of therapy -has no complaints of dysuria 3. DM2 -c/w sliding scale and hypoglycemic protocol 6. Normocytic anemia-chronic but worsening -unfortunately hg dropped to 6.8 today, consent taken from son over the phone and witnessed by nursing staff for transfusion -could be secondary to volume overload vs infection -will give additional dose of diuretic therapy today -pt to receive one unit pRBC we will recheck h/h one hour after transfusion is complete-can give extra dose of diuretic after transfusion -iron studies and occult blood ordered -unclear source for anemia at this time 5. Hx of TIA - c/w ASA, the patient refuses statin 7. Hx of Nephrectomy -Chronic and stable 8. Anxiety - c/w Alprazolam 9. CAD s/p stent -c/w ASA refuses statin not on any beta yaw likely related to her pulmonary disease 10. GERD -c/w Omeprazole 11. Behavioral issues - the patient was a bit more pleasant today, however has history of almost consistent bad behavior with nurses and aids, very unpleasant personality with shouting and cursing Plan/VTE VTE Prophylaxis Ordered?: Yes VS, I&O, 24H, Fishbone Vital Signs/I&O Vital Signs Date Time Temp Pulse Resp B/P (MAP) Pulse Ox O2 Delivery O2 Flow Rate FiO2 10/30/18 06:00 99.1 104 22 136/58 (84) 94 Nasal Cannula 3.0 I&O- Last 24 Hours up to 6 AM 10/30/18 05:59 Intake Total 448 ml Output Total 800 ml Balance -352 ml Laboratory Data 24H LABS Laboratory Tests 2 10/29/18 16:51: Bedside Glucose (Misc Panel) 201H 10/29/18 21:00: Bedside Glucose (Misc Panel) 105 10/30/18 05:58: Bedside Glucose (Misc Panel) 158H 10/30/18 09:14: Immature Granulocyte % (Auto) 0.5, White Blood Count 14.7H, Red Blood Count 2.70L, Hemoglobin 6.8*L, Hematocrit 21.5L, Mean Corpuscular Volume 79.6L, Mean Corpuscular Hemoglobin 25.2L, Mean Corpuscular Hemoglobin Concent 31.6L, Red Cell Distribution Width 17.2H, Platelet Count 511H, Neutrophils (%) (Auto) 82.1H, Lymphocytes (%) (Auto) 5.6L, Monocytes (%) (Auto) 9.8H, Eosinophils (%) (Auto) 1.7, Basophils (%) (Auto) 0.3, Neutrophils # (Auto) 12.1H, Lymphocytes # (Auto) 0.8L, Monocytes # (Auto) 1.5H, Eosinophils # (Auto) 0.3, Basophils # (Auto) 0.0, Nucleated Red Blood Cells % (auto) 0.0, Anion Gap 9, Glomerular Filtration Rate 56.1, Blood Urea Nitrogen 22H, Creatinine 1.00, Sodium Level 137, Potassium Level 3.2L, Chloride Level 96L, Carbon Dioxide Level 32, Calcium Level 8.6L, Aspartate Amino Transf (AST/SGOT) 53H, Alanine Aminotransferase (ALT/SGPT) 40, Alkaline Phosphatase 77, Total Bilirubin 0.7, Total Protein 7.1, Albumin 2.7L, Iron Level 12L, Total Iron Binding Capacity 311, Transferrin % Saturation 3.9L, Ferritin 70, C-Reactive Protein, Quantitative 24.70H, Albumin/Globulin Ratio 0.61L CBC/BMP Laboratory Tests 10/30/18 09:14 Red Blood Count 2.70 L, Mean Corpuscular Volume 79.6 L, Mean Corpuscular Hemoglobin 25.2 L, Mean Corpuscular Hemoglobin Concent 31.6 L, Red Cell Distribution Width 17.2 H, Neutrophils (%) (Auto) 82.1 H, Lymphocytes (%) (Auto) 5.6 L, Monocytes (%) (Auto) 9.8 H, Eosinophils (%) (Auto) 1.7, Basophils (%) (Auto) 0.3, Neutrophils # (Auto) 12.1 H, Lymphocytes # (Auto) 0.8 L, Monocytes # (Auto) 1.5 H, Eosinophils # (Auto) 0.3, Basophils # (Auto) 0.0, Calcium Level 8.6 L, Aspartate Amino Transf (AST/SGOT) 53 H, Alanine Aminotransferase (ALT/SGPT) 40, Alkaline Phosphatase 77, Total Bilirubin 0.7, Total Protein 7.1, Albumin 2.7 L Microbiology Microbiology 10/28/18 Blood Culture - Preliminary, Resulted No Growth after 48 hours. All Specime... 10/28/18 Blood Culture - Preliminary, Resulted No Growth after 48 hours. All Specime... 10/28/18 Respiratory Virus Panel (PCR) ([facility]HEED) - Final, Complete GME ATTESTATION GME ATTESTATION My faculty preceptor for this patient encounter was physically present during the encounter and was fully available. All aspects of the patient interview, examination, medical decision making process, and medical care plan development were reviewed and approved by the faculty preceptor. The faculty preceptor is aware and concurs with the plan as stated in the body of this note and will attest to such by his/her cosignature. KELLY MORA DO Oct 30, 2018 10:43
[2018-10-30] MEDS ORDERED: POTASSIUM CHLORIDE 10 MEQ SR TABLET PO ONE (11:00)
[2018-10-30] MEDS ORDERED: TORSEMIDE 20 MG TAB PO ONE (13:00)
[2018-10-30] MEDS: MOXIFLOXACIN 400 MG TAB PO SCH (17:23)
[2018-10-30 20:28] LABS: HEMATOCRIT 27.1 % (36.0-47.0); HEMOGLOBIN 8.7 g/dl (12.0-15.5)
[2018-10-31 06:00] VITALS: BP 120/57
[2018-10-31] MEDS: HumaLOG INSULIN (NovoLOG) PER UNIT SC SCH ×5 (07:30→21:00)
[2018-10-31] MEDS: SYMBICORT 160/4.5MCG INHALER 6GM INH SCH ×2 (07:38→20:54)
[2018-10-31] MEDS: TIOTROPIUM INHALER/CAPSULE (SPIRIVA) INH SCH (07:38)
[2018-10-31] MEDS: HEPARIN SOD (PORCINE) 5000 UNITS/ML VIAL SQ SCH ×2 (09:00→21:00)
[2018-10-31] MEDS ORDERED: POTASSIUM CHLORIDE 10 MEQ SR TABLET PO ONE (09:00)
[2018-10-31] MEDS: BACTRIM 160MG/800MG DS TAB PO SCH (09:00)
[2018-10-31] MEDS: LEVEMIR (INSULIN DETEMIR) 1 UNITS/0.01ML SC SCH (09:00)
[2018-10-31] MEDS: ATORVASTATIN 10 MG TAB PO SCH (09:21)
[2018-10-31] MEDS: TORSEMIDE 20 MG TAB PO SCH (09:21)
[2018-10-31] MEDS: PANTOPRAZOLE 40MG TAB (PROTONIX) PO SCH (09:21)
[2018-10-31] MEDS: ASPIRIN 81 MG ENTERIC TAB PO SCH (09:21)
[2018-10-31] MEDS: predniSONE 5 MG TAB PO SCH (09:21)
[2018-10-31 09:51] LABS: BASO # 0.1 10^3/uL (0.0-0.2); BASO % 0.5 % (0.0-1.0); EOS # 0.3 10^3/uL (0.0-0.50); EOS % 2.9 % (0.0-3.0); HEMOGLOBIN 9.7 g/dl (12.0-15.5); LYMPH # 0.7 10^3/uL (1.5-4.5); LYMPH % 7.2 % (24.0-44.0); MEAN CORPUSCULAR HEMOGLOBIN 26.4 pg (27.0-33.0); MEAN CORPUSCULAR HGB CONC 31.3 g/dl (32.0-36.5); MEAN CORPUSCULAR VOLUME 84.5 fl (80.0-96.0); MONO % 10.4 % (0.0-5.0); NEUTROPHILS # 7.8 10^3/uL (1.8-7.7); NEUTROPHILS % 77.8 % (36.0-66.0); PLATELET COUNT, AUTOMATED 487 10^3/uL (150-450); RED BLOOD COUNT 3.67 10^6/uL (4.00-5.40)
[2018-10-31 10:19] LABS: ALBUMIN 2.6 GM/DL (3.2-5.2); BILIRUBIN,TOTAL 1.1 MG/DL (0.2-1.0); CALCIUM LEVEL 8.3 MG/DL (8.8-10.2); CREATININE FOR GFR 1.09 MG/DL (0.55-1.30); GLOMERULAR FILTRATION RATE 50.8 (>32); MAGNESIUM LEVEL 1.6 MG/DL (1.8-2.4); POTASSIUM SERUM 3.9 MEQ/L (3.5-5.1); TOTAL PROTEIN 7.2 GM/DL (6.4-8.2)
[2018-10-31] MEDS ORDERED: MAG SULF 1GM/100ML (MAG RUN) 1 GM in APPROPRIATE DILUENT 1 EA IV ONE (12:00)
--- NOTE | 2018-10-31 12:15 | IPNPDOC ---
Subjective Date Seen The patient was seen on 10/31/18. Subjective Chief Complaint/HPI . General: Reports: Fatigue; Denies: Chills Skin: Denies: Rash, Lesions Pulmonary: Denies: Dyspnea, Cough Cardiovascular: Denies: Chest Pain, Palpitations Gastrointestinal: Denies: Nausea, Vomiting, Abdominal Pain Musculoskeletal: Reports: Other Symptoms (b/l edema of LE) Objective Physical Examination General Exam: Positive: Alert, Cooperative, No Acute Distress Eye Exam: Negative: Sclera icteric ENT Exam: Positive: Atraumatic, Mucous membr. moist/pink Chest Exam: Positive: Diminished; Negative: Normal air movement, Rales, Rhonchi, Wheezing Heart Exam: Positive: Rate Normal, Normal S1, Normal S2; Negative: Murmurs, Rubs Telemetry: Positive: No significant arrhythmia Abdomen Exam: Positive: Normal bowel sounds, Soft; Negative: Tenderness Extremity Exam: Positive: Swelling (1+ pitting edema in the lower extremities b/l, appears unchanged today); Negative: Edema, Tenderness Neuro Exam: Positive: Normal Speech Psych Exam: Positive: Mental status NL Assessment /Plan Assessment 1.Re-occurrence of HCAP -afebrile for over 48 hours, WBC has normalized -Patient developed 101.3 F fever three days ago, CXR revealed worsened right sided consolidation since prior CXR performed 10/16/18, c/w treatment for HCAP at this time -pt allergic to levofloxacin, started on moxifloxacin therapy however labs show increase in LFT's therefore will change to cefepime 2q12h in light of kidney CrCl -CRP improved to 18 from 24.70 -resp panel negative, blood culture first set from 10/28/18 negative, second set also negative -she states her breathing is fine, she is agreeable to take antibiotic therapy, she agrees to take her lasix therapy -she has been treated for HCAP during this hospitalization 2. Urinary Tract Infection -Resolved the patient completed a course of therapy -has no complaints of dysuria 3. DM2 -c/w sliding scale and hypoglycemic protocol 4. Normocytic anemia-chronic but worsening -unfortunately hg dropped to 6.8 yesterday, s/p 1 unit pRBC and h/h improved to 8.7/27.1 -could be secondary to volume overload vs infection -s/p additional dose of diuretic therapy yesterday after transfusion -iron studies and occult blood ordered -unclear source for anemia at this time 5. Transaminitis -bump in AST/ALT today -could be secondary to Avelox, she also was in sepsis on presentation, could be secondary to hypoperfusion as well -changing Avelox with risk of hepatotoxicity to Cefepime dosed for kidney function -continue to monitor 6. Hx of TIA - c/w ASA, the patient refuses statin 7. Hx of Nephrectomy -Chronic and stable 8. Anxiety - c/w Alprazolam 9. CAD s/p stent -c/w ASA refuses statin not on any beta yaw likely related to her pulmonary disease 10. GERD -c/w Omeprazole 11. Behavioral issues - the patient was a bit more pleasant today, however has history of almost consistent bad behavior with nurses and aids, very unpleasant personality with shouting and cursing Plan/VTE VTE Prophylaxis Ordered?: Yes VS, I&O, 24H, Fishbone Vital Signs/I&O Vital Signs Date Time Temp Pulse Resp B/P (MAP) Pulse Ox O2 Delivery O2 Flow Rate FiO2 10/31/18 11:17 3.0 10/31/18 06:00 97.9 94 24 120/57 (78) 96 Nasal Cannula I&O- Last 24 Hours up to 6 AM 10/31/18 05:59 Intake Total 1596 ml Output Total 0 ml Balance 1596 ml Laboratory Data 24H LABS Laboratory Tests 2 10/30/18 13:51: 10/30/18 16:24: Bedside Glucose (Misc Panel) 210H 10/30/18 19:41: Bedside Glucose (Misc Panel) 167H 10/31/18 06:11: Bedside Glucose (Misc Panel) 138H 10/31/18 09:43: Immature Granulocyte % (Auto) 1.2, White Blood Count 10.0, Red Blood Count 3.67L, Hemoglobin 9.7L, Hematocrit 31.0L, Mean Corpuscular Volume 84.5, Mean Corpuscular Hemoglobin 26.4L, Mean Corpuscular Hemoglobin Concent 31.3L, Red Cell Distribution Width 16.3H, Platelet Count 487H, Neutrophils (%) (Auto) 77.8H, Lymphocytes (%) (Auto) 7.2L, Monocytes (%) (Auto) 10.4H, Eosinophils (%) (Auto) 2.9, Basophils (%) (Auto) 0.5, Neutrophils # (Auto) 7.8H, Lymphocytes # (Auto) 0.7L, Monocytes # (Auto) 1.0H, Eosinophils # (Auto) 0.3, Basophils # (Auto) 0.1, Nucleated Red Blood Cells % (auto) 0.0, Anion Gap 8, Glomerular Filtration Rate 50.8, Blood Urea Nitrogen 25H, Creatinine 1.09, Sodium Level 133L, Potassium Level 3.9#, Chloride Level 98, Carbon Dioxide Level 27, Calcium Level 8.3L, Aspartate Amino Transf (AST/SGOT) 178H, Alanine Aminotransferase (ALT/SGPT) 141H, Alkaline Phosphatase 88, Total Bilirubin 1.1#H, Total Protein 7.2, Albumin 2.6L, Magnesium Level 1.6L, C-Reactive Protein, Quantitative 18.00H, Albumin/Globulin Ratio 0.57L 10/31/18 11:25: Bedside Glucose (Misc Panel) 250H CBC/BMP Laboratory Tests 10/30/18 20:23 10/31/18 09:43 Red Blood Count 3.67 L, Mean Corpuscular Volume 84.5, Mean Corpuscular Hemoglobin 26.4 L, Mean Corpuscular Hemoglobin Concent 31.3 L, Red Cell Distribution Width 16.3 H, Neutrophils (%) (Auto) 77.8 H, Lymphocytes (%) (Auto) 7.2 L, Monocytes (%) (Auto) 10.4 H, Eosinophils (%) (Auto) 2.9, Basophils (%) (Auto) 0.5, Neutrophils # (Auto) 7.8 H, Lymphocytes # (Auto) 0.7 L, Monocytes # (Auto) 1.0 H, Eosinophils # (Auto) 0.3, Basophils # (Auto) 0.1, Calcium Level 8.3 L, Aspartate Amino Transf (AST/SGOT) 178 H, Alanine Aminotransferase (ALT/SGPT) 141 H, Alkaline Phosphatase 88, Total Bilirubin 1.1 #H, Total Protein 7.2, Albumin 2.6 L Microbiology Microbiology 10/28/18 Blood Culture - Preliminary, Resulted No Growth after 72 hours. All specime... 10/28/18 Blood Culture - Preliminary, Resulted No Growth after 72 hours. All specime... 10/28/18 Respiratory Virus Panel (PCR) ([facility]HE[facility]) - Final, Complete GME ATTESTATION GME ATTESTATION My faculty preceptor for this patient encounter was physically present during the encounter and was fully available. All aspects of the patient interview, examination, medical decision making process, and medical care plan development were reviewed and approved by the faculty preceptor. The faculty preceptor is aware and concurs with the plan as stated in the body of this note and will attest to such by his/her cosignature. KELLY MORA DO Oct 31, 2018 12:15
[2018-10-31] MEDS ORDERED: MAGNESIUM OXIDE 400 MG TAB (MAG-OX) PO ONE (14:00)
[2018-10-31] MEDS: CEFEPIME HCL 2 GM in D5W MINI-BAG PLUS 50 ML IV SCH (17:00)
[2018-10-31] MEDS: LEVALBUTEROL 1.25 MG/0.5 ML CONCENTRATE NEB INH PRN (20:54)
[2018-10-31 22:00] VITALS: BP 144/66
[2018-11-01] MEDS: CEFEPIME HCL 2 GM in D5W MINI-BAG PLUS 50 ML IV SCH (04:59)
[2018-11-01 06:00] VITALS: BP 128/61
[2018-11-01] MEDS: HumaLOG INSULIN (NovoLOG) PER UNIT SC SCH ×5 (07:30→21:00)
[2018-11-01] MEDS: HEPARIN SOD (PORCINE) 5000 UNITS/ML VIAL SQ SCH ×2 (07:31→20:46)
[2018-11-01] MEDS: SYMBICORT 160/4.5MCG INHALER 6GM INH SCH ×2 (08:17→20:58)
[2018-11-01] MEDS: TIOTROPIUM INHALER/CAPSULE (SPIRIVA) INH SCH (08:17)
[2018-11-01] MEDS: LEVEMIR (INSULIN DETEMIR) 1 UNITS/0.01ML SC SCH (09:00)
[2018-11-01] MEDS: CEFDINIR 300 MG CAP (OMNICEF) PO SCH ×2 (09:34→20:45)
[2018-11-01] MEDS: ATORVASTATIN 10 MG TAB PO SCH (09:34)
[2018-11-01] MEDS: ASPIRIN 81 MG ENTERIC TAB PO SCH (09:34)
[2018-11-01] MEDS: PANTOPRAZOLE 40MG TAB (PROTONIX) PO SCH (09:34)
[2018-11-01] MEDS: predniSONE 5 MG TAB PO SCH (09:34)
[2018-11-01] MEDS: TORSEMIDE 20 MG TAB PO SCH (09:34)
[2018-11-01 13:28] LABS: BASO # 0.1 10^3/uL (0.0-0.2); BASO % 0.8 % (0.0-1.0); EOS # 0.2 10^3/uL (0.0-0.50); EOS % 2.2 % (0.0-3.0); HEMATOCRIT 31.1 % (36.0-47.0); HEMOGLOBIN 9.8 g/dl (12.0-15.5); LYMPH # 0.6 10^3/uL (1.5-4.5); LYMPH % 5.8 % (24.0-44.0); MEAN CORPUSCULAR HEMOGLOBIN 26.3 pg (27.0-33.0); MEAN CORPUSCULAR HGB CONC 31.5 g/dl (32.0-36.5); MEAN CORPUSCULAR VOLUME 83.4 fl (80.0-96.0); MONO # 0.8 10^3/uL (0.0-0.8); MONO % 7.6 % (0.0-5.0); NEUTROPHILS # 8.6 10^3/uL (1.8-7.7); NEUTROPHILS % 81.2 % (36.0-66.0); PLATELET COUNT, AUTOMATED 591 10^3/uL (150-450); RED BLOOD COUNT 3.73 10^6/uL (4.00-5.40); WHITE BLOOD COUNT 10.6 10^3/uL (4.0-10.0)
--- NOTE | 2018-11-01 13:28 | IPNPDOC ---
Text Note Date of Service The patient was seen on 11/01/18. NOTE Subjective: Pt denies CP/palpitations. No CP/SOB/palpitations. Objective: Vitals: (see below) General: No acute distress, laying comfortably in bed. HEENT: Moist mucous membranes. Neck: No JVD or lymphadenopathy Cardiac: RRR, No murmurs Pulm: No wheezing. Fine crackles at the bases b/l. No rhonchi. No use of accessory muscles. Abd: NT/ND + BS Ext: 1+ Pitting edema BLE. No cyanosis Labs (see below) Images: Assessment/Plan 1. s/p Acute COPD exacerbation- Cont nebs. Cont Mucinex. On Spiriva. 2. Decompensated diastolic heart failure - on Torsemide, will increase dose. 3. Sepsis HCAP 2/2 - pt refusing IV Abx. Started on cefdinir 4. Acute on chronic anemia - s/p 1U PRBC. Anemia panel. No active bleeding at this time. 5. Subclinical hypothyroidism- Synthroid 6. Normocytic anemia stable no need for treatment at this time. 7. History of TIA. On aspirin and statin 8. History of cor pulmonale 9. DM - cont current insulin regimen. 10. History of nephrectomy. Renal function stable. 11. History of Anxiety 12. History of malaria. 13. H/o Dementia 14. History of CAD with stenting. On aspirin, statin 15. History of Pulmonary hypertension. DVT prophylaxis: hep sq although pt is refusing it. Prognosis guarded. Pt continues to refuse many of her medications. VS,Fishbone, I+O VS, Fishbone, I+O Vital Signs Date Time Temp Pulse Resp B/P (MAP) Pulse Ox O2 Delivery O2 Flow Rate FiO2 11/01/18 10:15 3.0 11/01/18 06:00 98.0 87 20 128/61 (83) 99 Nasal Cannula I&O- Last 24 Hours up to 6 AM 11/01/18 06:00 Intake Total 1220 ml Output Total 150 ml Balance 1070 ml JAHAIRA CABALLERO MD Nov 01, 2018 13:28
[2018-11-01 14:00] VITALS: BP 134/64
[2018-11-01 14:00] LABS: BILIRUBIN,TOTAL 0.5 MG/DL (0.2-1.0); CREATININE FOR GFR 0.95 MG/DL (0.55-1.30); GLOMERULAR FILTRATION RATE 59.5 (>32); MAGNESIUM LEVEL 1.8 MG/DL (1.8-2.4); POTASSIUM SERUM 3.6 MEQ/L (3.5-5.1)
[2018-11-01] MEDS ORDERED: TORSEMIDE 20 MG TAB PO ONE (14:00)
[2018-11-01] MEDS: LEVALBUTEROL 1.25 MG/0.5 ML CONCENTRATE NEB INH PRN ×2 (18:02→20:58)
[2018-11-01 22:00] VITALS: BP 148/65
[2018-11-02 00:07] LABS: SOLUBLE TRANSFERRIN RECEPTOR 33.7 nmol/L (12.2-27.3)
[2018-11-02] MEDS: LEVALBUTEROL 1.25 MG/0.5 ML CONCENTRATE NEB INH PRN ×2 (02:47→08:41)
[2018-11-02 06:00] VITALS: BP 135/62
[2018-11-02 06:37] LABS: BASO # 0.1 10^3/uL (0.0-0.2); EOS # 0.4 10^3/uL (0.0-0.50); EOS % 3.1 % (0.0-3.0); HEMATOCRIT 28.8 % (36.0-47.0); LYMPH # 1.4 10^3/uL (1.5-4.5); LYMPH % 12.2 % (24.0-44.0); MEAN CORPUSCULAR HEMOGLOBIN 26.5 pg (27.0-33.0); MEAN CORPUSCULAR HGB CONC 31.3 g/dl (32.0-36.5); MONO # 1.2 10^3/uL (0.0-0.8); MONO % 10.5 % (0.0-5.0); NEUTROPHILS # 8.1 10^3/uL (1.8-7.7); NEUTROPHILS % 68.4 % (36.0-66.0); PLATELET COUNT, AUTOMATED 562 10^3/uL (150-450); RED BLOOD COUNT 3.39 10^6/uL (4.00-5.40); WHITE BLOOD COUNT 11.8 10^3/uL (4.0-10.0)
[2018-11-02 06:55] LABS: ALBUMIN 2.8 GM/DL (3.2-5.2); ALT/SGPT 213 U/L (12-78); BILIRUBIN,TOTAL 0.4 MG/DL (0.2-1.0); BLOOD UREA NITROGEN 32 MG/DL (7-18); CALCIUM LEVEL 8.7 MG/DL (8.8-10.2); CARBON DIOXIDE LEVEL 33 MEQ/L (21-32); CHLORIDE LEVEL 98 MEQ/L (98-107); CREATININE FOR GFR 0.93 MG/DL (0.55-1.30); GLOMERULAR FILTRATION RATE > 60.0 (>32); GLUCOSE, FASTING 133 MG/DL (70-100); MAGNESIUM LEVEL 1.5 MG/DL (1.8-2.4); POTASSIUM SERUM 3.6 MEQ/L (3.5-5.1); SODIUM LEVEL 140 MEQ/L (136-145); TOTAL PROTEIN 6.4 GM/DL (6.4-8.2)
[2018-11-02] MEDS: HumaLOG INSULIN (NovoLOG) PER UNIT SC SCH ×4 (07:30→20:13)
[2018-11-02] MEDS: SYMBICORT 160/4.5MCG INHALER 6GM INH SCH ×2 (08:41→19:17)
[2018-11-02] MEDS: TIOTROPIUM INHALER/CAPSULE (SPIRIVA) INH SCH (08:41)
[2018-11-02 08:52] LABS: C REACTIVE PROTEIN QUANTITATIV 7.95 MG/DL (0.00-0.30)
[2018-11-02] MEDS: HEPARIN SOD (PORCINE) 5000 UNITS/ML VIAL SQ SCH ×2 (09:00→20:13)
[2018-11-02] MEDS: BACTRIM 160MG/800MG DS TAB PO SCH (09:00)
[2018-11-02] MEDS ORDERED: TORSEMIDE 20 MG TAB PO ONE (09:00)
[2018-11-02] MEDS: LEVEMIR (INSULIN DETEMIR) 1 UNITS/0.01ML SC SCH (09:00)
[2018-11-02] MEDS: ATORVASTATIN 10 MG TAB PO SCH (09:00)
[2018-11-02] MEDS: PANTOPRAZOLE 40MG TAB (PROTONIX) PO SCH (09:56)
[2018-11-02] MEDS: predniSONE 5 MG TAB PO SCH (11:02)
[2018-11-02] MEDS: CEFDINIR 300 MG CAP (OMNICEF) PO SCH ×2 (11:02→20:13)
[2018-11-02] MEDS: ASPIRIN 81 MG ENTERIC TAB PO SCH (11:02)
[2018-11-02] MEDS: TORSEMIDE 20 MG TAB PO SCH (11:03)
[2018-11-02] MEDS: ALPRAZolam 0.25 MG TAB PO PRN (11:03)
--- NOTE | 2018-11-02 14:29 | IPNPDOC ---
Subjective Date Seen The patient was seen on 11/02/18. Subjective Chief Complaint/HPI . General: Reports: Fatigue; Denies: Chills, Night Sweats, Malaise Pulmonary: Denies: Dyspnea, Cough Cardiovascular: Denies: Chest Pain, Palpitations Gastrointestinal: Denies: Nausea, Vomiting, Abdominal Pain, Diarrhea, Constipation Genitourinary: Denies: Dysuria Musculoskeletal: Reports: Other Symptoms (b/l swelling LE) Neurological: Denies: Weakness Psych: Reports: Mood Normal, Anxiety Objective Physical Examination General Exam: Positive: Alert, Cooperative, No Acute Distress Eye Exam: Negative: Sclera icteric ENT Exam: Positive: Atraumatic, Mucous membr. moist/pink Chest Exam: Positive: Diminished; Negative: Normal air movement, Rales, Rhonchi, Wheezing Heart Exam: Positive: Rate Normal, Normal S1, Normal S2; Negative: Murmurs, Rubs Telemetry: Positive: No significant arrhythmia Abdomen Exam: Positive: Normal bowel sounds, Soft; Negative: Tenderness Extremity Exam: Positive: Edema, Swelling (1+ pitting edema in the lower extremities b/l, appears more impressive today b/l); Negative: Tenderness Neuro Exam: Positive: Normal Speech Psych Exam: Positive: Mental status NL Assessment /Plan Assessment 1. Acute COPD exacerbation -resolved, c/w nebulizers, mucinex and spiriva 2. Decompensated diastolic heart failure -giving increased dose of Torsemide today, patients b/l LE seem more swollen on exam today -history of intermittent compliance with taking medications 3. Sepsis HCAP 2/2 - pt refusing IV Abx -c/w cefdinir -afebrile for many days, minimal elevation in WBC today to 11.8 4. Acute on chronic anemia - -s/p 1U PRBC -No active bleeding at this time -h/h stable 08/03.2 5. Subclinical hypothyroidism -c/w Synthroid 7. History of TIA - On aspirin and statin 8. DM - -c/w current insulin regimen-patient has compliance issues and will refuse insulin therapy 9. History of nephrectomy -renal function stable, creatine today .93 10. History of CAD -s/p stenting, c/w aspirin, statin 11. History of Pulmonary hypertension -stable 12. DVT prophylaxis -c/w hep sq although pt is refusing it. Prognosis guarded. Pt continues to refuse many of her medications unfortunately Plan/VTE VTE Prophylaxis Ordered?: Yes VS, I&O, 24H, Deepakbone Vital Signs/I&O Vital Signs Date Time Temp Pulse Resp B/P (MAP) Pulse Ox O2 Delivery O2 Flow Rate FiO2 11/02/18 06:00 97.7 92 20 135/62 (86) 94 Nasal Cannula 3.0 I&O- Last 24 Hours up to 6 AM 11/02/18 05:59 Intake Total 1650 ml Output Total 1050 ml Balance 600 ml Laboratory Data 24H LABS Laboratory Tests 2 11/01/18 17:02: Bedside Glucose (Misc Panel) 240H 11/01/18 20:13: Bedside Glucose (Misc Panel) 264H 11/02/18 06:14: Immature Granulocyte % (Auto) 4.8H, White Blood Count 11.8H, Red Blood Count 3.39L, Hemoglobin 9.0L, Hematocrit 28.8L, Mean Corpuscular Volume 85.0, Mean Corpuscular Hemoglobin 26.5L, Mean Corpuscular Hemoglobin Concent 31.3L, Red Cell Distribution Width 17.2H, Platelet Count 562H, Neutrophils (%) (Auto) 68.4H, Lymphocytes (%) (Auto) 12.2L, Monocytes (%) (Auto) 10.5H, Eosinophils (%) (Auto) 3.1H, Basophils (%) (Auto) 1.0, Neutrophils # (Auto) 8.1H, Lymphocytes # (Auto) 1.4L, Monocytes # (Auto) 1.2H, Eosinophils # (Auto) 0.4, Basophils # (Auto) 0.1, Nucleated Red Blood Cells % (auto) 0.0, Anion Gap 9, Glomerular Filtration Rate > 60.0, Blood Urea Nitrogen 32H, Creatinine 0.93, Sodium Level 140, Potassium Level 3.6, Chloride Level 98, Carbon Dioxide Level 33H, Calcium Level 8.7L, Aspartate Amino Transf (AST/SGOT) 144H, Alanine Aminotransferase (ALT/SGPT) 213H, Alkaline Phosphatase 109, Total Bilirubin 0.4, Total Protein 6.4, Albumin 2.8L, Magnesium Level 1.5L, C-Reactive Protein, Quantitative 7.95H, Albumin/Globulin Ratio 0.78L 11/02/18 11:52: Bedside Glucose (Misc Panel) 298H CBC/BMP Laboratory Tests 11/02/18 06:14 Red Blood Count 3.39 L, Mean Corpuscular Volume 85.0, Mean Corpuscular Hemoglobin 26.5 L, Mean Corpuscular Hemoglobin Concent 31.3 L, Red Cell Distribution Width 17.2 H, Neutrophils (%) (Auto) 68.4 H, Lymphocytes (%) (Auto) 12.2 L, Monocytes (%) (Auto) 10.5 H, Eosinophils (%) (Auto) 3.1 H, Basophils (%) (Auto) 1.0, Neutrophils # (Auto) 8.1 H, Lymphocytes # (Auto) 1.4 L, Monocytes # (Auto) 1.2 H, Eosinophils # (Auto) 0.4, Basophils # (Auto) 0.1, Calcium Level 8 .7 L, Aspartate Amino Transf (AST/SGOT) 144 H, Alanine Aminotransferase (ALT/SGPT) 213 H, Alkaline Phosphatase 109, Total Bilirubin 0.4, Total Protein 6.4, Albumin 2.8 L Microbiology Microbiology 10/28/18 Blood Culture - Final, Complete NO GROWTH AFTER 5 DAYS 10/28/18 Blood Culture - Final, Complete NO GROWTH AFTER 5 DAYS 10/28/18 Respiratory Virus Panel (PCR) ([facility]HE[facility]) - Final, Complete GME ATTESTATION GME ATTESTATION My faculty preceptor for this patient encounter was physically present during e encounter and was fully available. All aspects of the patient interview, examination, medical decision making process, and medical care plan development were reviewed and approved by the faculty preceptor. The faculty preceptor is aware and concurs with the plan as stated in the body of this note and will attest to such by his/her cosignature. KELLY MORA DO Nov 02, 2018 14:29
[2018-11-03 06:00] VITALS: BP 160/70
[2018-11-03] MEDS: HumaLOG INSULIN (NovoLOG) PER UNIT SC SCH ×4 (07:30→20:55)
[2018-11-03] MEDS: TIOTROPIUM INHALER/CAPSULE (SPIRIVA) INH SCH (08:23)
[2018-11-03] MEDS: SYMBICORT 160/4.5MCG INHALER 6GM INH SCH ×2 (08:23→19:56)
[2018-11-03] MEDS: LEVEMIR (INSULIN DETEMIR) 1 UNITS/0.01ML SC SCH (09:00)
[2018-11-03] MEDS: HEPARIN SOD (PORCINE) 5000 UNITS/ML VIAL SQ SCH ×2 (09:00→19:55)
[2018-11-03] MEDS: TORSEMIDE 20 MG TAB PO SCH (09:00)
[2018-11-03] MEDS: PANTOPRAZOLE 40MG TAB (PROTONIX) PO SCH (09:00)
[2018-11-03] MEDS: predniSONE 5 MG TAB PO SCH (09:42)
[2018-11-03] MEDS: ASPIRIN 81 MG ENTERIC TAB PO SCH (09:42)
[2018-11-03] MEDS: ATORVASTATIN 10 MG TAB PO SCH (09:43)
[2018-11-03] MEDS: CEFDINIR 300 MG CAP (OMNICEF) PO SCH ×2 (09:43→19:56)
[2018-11-03 12:52] LABS: HEMATOCRIT 30.4 % (36.0-47.0); HEMOGLOBIN 9.4 g/dl (12.0-15.5); MEAN CORPUSCULAR HEMOGLOBIN 26.3 pg (27.0-33.0); MEAN CORPUSCULAR HGB CONC 30.9 g/dl (32.0-36.5); MEAN CORPUSCULAR VOLUME 84.9 fl (80.0-96.0); PLATELET COUNT, AUTOMATED 579 10^3/uL (150-450); RED BLOOD COUNT 3.58 10^6/uL (4.00-5.40); WHITE BLOOD COUNT 11.6 10^3/uL (4.0-10.0)
[2018-11-03 13:28] LABS: BASOPHILS 1 % (0-4); EOSINOPHILS 6 % (0-5); LYMPHOCYTES 7 % (16-52); METAMYELOCYTES 6 % (0-0); MONOCYTES 8 % (0-8); NEUTROPHILS 67 % (35-75)
[2018-11-03 13:29] LABS: ALBUMIN 2.8 GM/DL (3.2-5.2); ALT/SGPT 133 U/L (12-78); BILIRUBIN,TOTAL 0.3 MG/DL (0.2-1.0); BLOOD UREA NITROGEN 24 MG/DL (7-18); CALCIUM LEVEL 9.1 MG/DL (8.8-10.2); CARBON DIOXIDE LEVEL 34 MEQ/L (21-32); CHLORIDE LEVEL 95 MEQ/L (98-107); CREATININE FOR GFR 0.88 MG/DL (0.55-1.30); GLOMERULAR FILTRATION RATE > 60.0 (>32); GLUCOSE, FASTING 251 MG/DL (70-100); MICROCYTOSIS 1+; PLATELET ESTIMATE INCREASED (NORMAL); POTASSIUM SERUM 3.5 MEQ/L (3.5-5.1); SODIUM LEVEL 136 MEQ/L (136-145); TOTAL PROTEIN 7.1 GM/DL (6.4-8.2)
--- NOTE | 2018-11-03 14:51 | IPNPDOC ---
Subjective Date Seen The patient was seen on 11/03/18. Subjective Chief Complaint/HPI . General: Denies: Chills, Night Sweats Constitutional: Denies: Chills Pulmonary: Denies: Dyspnea, Cough Cardiovascular: Denies: Chest Pain, Palpitations Gastrointestinal: Denies: Nausea, Vomiting Musculoskeletal: Reports: Other Symptoms (b/l LE edema) Psych: Reports: Mood Normal Objective Physical Examination General Exam: Positive: Alert, Cooperative, No Acute Distress Eye Exam: Negative: Sclera icteric ENT Exam: Positive: Atraumatic, Mucous membr. moist/pink Chest Exam: Positive: Diminished; Negative: Normal air movement, Rales, Rhonchi, Wheezing Heart Exam: Positive: Rate Normal, Normal S1, Normal S2; Negative: Murmurs, Rubs Telemetry: Positive: No significant arrhythmia Abdomen Exam: Positive: Normal bowel sounds, Soft; Negative: Tenderness Extremity Exam: Positive: Edema, Swelling (1+ pitting edema in the lower extremities b/l, appears better today); Negative: Tenderness Neuro Exam: Positive: Normal Speech Psych Exam: Positive: Mental status NL Assessment /Plan Assessment 1. Acute COPD exacerbation -patient continues to be comfortable on exam -resolved, c/w nebulizers, mucinex and spiriva 2. Decompensated diastolic heart failure and b/l LE swelling -given increased dose of Torsemide yesterday, patients b/l LE seems improved on exam today -history of intermittent compliance with taking medications -encouraged to ambulate more to help mobilize LE fluid -c/w diuretic therapy 3. Sepsis HCAP 2/2 - -pt had been refusing IV Abx -c/w cefdinir for now -afebrile for many days, WBC 11.6 stable 4. Acute on chronic anemia - -s/p 1U PRBC -No active bleeding at this time -h/h stable 9.4/30.4 5. Subclinical hypothyroidism -c/w Synthroid 7. History of TIA - On aspirin and statin 8. DM - -c/w current insulin regimen-patient has compliance issues and will refuse insulin therapy 9. History of nephrectomy -renal function stable, creatine today .93 10. History of CAD -s/p stenting, c/w aspirin, statin 11. History of Pulmonary hypertension -stable 12. DVT prophylaxis -c/w hep sq although pt is refusing it Prognosis guarded Pt continues to refuse many of her medications unfortunately Plan/VTE VTE Prophylaxis Ordered?: Yes VS, I&O, 24H, Fishbone Vital Signs/I&O Vital Signs Date Time Temp Pulse Resp B/P (MAP) Pulse Ox O2 Delivery O2 Flow Rate FiO2 11/03/18 06:00 97.6 82 24 160/70 (100) 94 Nasal Cannula 3.0 I&O- Last 24 Hours up to 6 AM 11/03/18 05:59 Intake Total 1440 ml Output Total 700 ml Balance 740 ml Laboratory Data 24H LABS Laboratory Tests 2 11/02/18 17:21: Bedside Glucose (Misc Panel) 113H 11/02/18 20:12: Bedside Glucose (Misc Panel) 173H 11/03/18 06:02: Bedside Glucose (Misc Panel) 113H 11/03/18 11:34: Bedside Glucose (Misc Panel) 250H 11/03/18 12:45: Immature Granulocyte % (Auto) , Nucleated Red Blood Cells % (auto) 0.0, Neutrophils 67, Band Neutrophils 5, Lymphocytes (Manual) 7L, Monocytes (Manual) 8, Eosinophils (Manual) 6H, Basophils (Manual) 1, Metamyelocytes 6H, Platelet Estimate INCREASED, Microcytosis 1+, Anion Gap 7L, Glomerular Filtration Rate > 60.0, Blood Urea Nitrogen 24H, Creatinine 0.88, Sodium Level 136, Potassium Level 3.5, Chloride Level 95L, Carbon Dioxide Level 34H, Calcium Level 9.1, Aspartate Amino Transf (AST/SGOT) 57H, Alanine Aminotransferase (ALT/SGPT) 133H, Alkaline Phosphatase 104, Total Bilirubin 0.3, Total Protein 7.1, Albumin 2.8L, Albumin/Globulin Ratio 0.65L CBC/BMP Laboratory Tests 11/03/18 12:45 Red Blood Count 3.58 L, Mean Corpuscular Volume 84.9, Mean Corpuscular Hemoglobin 26.3 L, Mean Corpuscular Hemoglobin Concent 30.9 L, Red Cell Distribution Width 17.6 H, Calcium Level 9.1, Aspartate Amino Transf (AST/SGOT) 57 H, Alanine Aminotransferase (ALT/SGPT) 133 H, Alkaline Phosphatase 104, Total Bilirubin 0.3, Total Protein 7.1, Albumin 2.8 L Microbiology Microbiology 10/28/18 Blood Culture - Final, Complete NO GROWTH AFTER 5 DAYS 10/28/18 Blood Culture - Final, Complete NO GROWTH AFTER 5 DAYS 10/28/18 Respiratory Virus Panel (PCR) ([facility]HEED) - Final, Complete GME ATTESTATION GME ATTESTATION My faculty preceptor for this patient encounter was physically present during the encounter and was fully available. All aspects of the patient interview, examination, medical decision making process, and medical care plan development were reviewed and approved by the faculty preceptor. The faculty preceptor is aware and concurs with the plan as stated in the body of this note and will attest to such by his/her cosignature. KELLY MORA DO Nov 03, 2018 14:51
[2018-11-04 06:00] VITALS: BP 129/84
[2018-11-04] MEDS: HumaLOG INSULIN (NovoLOG) PER UNIT SC SCH ×4 (07:30→21:00)
[2018-11-04] MEDS: SYMBICORT 160/4.5MCG INHALER 6GM INH SCH ×2 (08:08→19:53)
[2018-11-04] MEDS: TIOTROPIUM INHALER/CAPSULE (SPIRIVA) INH SCH (08:08)
[2018-11-04] MEDS: LEVEMIR (INSULIN DETEMIR) 1 UNITS/0.01ML SC SCH (08:46)
[2018-11-04] MEDS: HEPARIN SOD (PORCINE) 5000 UNITS/ML VIAL SQ SCH ×2 (08:46→19:36)
[2018-11-04] MEDS: ASPIRIN 81 MG ENTERIC TAB PO SCH (08:51)
[2018-11-04] MEDS: predniSONE 5 MG TAB PO SCH (08:51)
[2018-11-04] MEDS: POTASSIUM CHLORIDE 10 MEQ SR TABLET PO ONE ×2 (08:51→17:00)
[2018-11-04] MEDS: CEFDINIR 300 MG CAP (OMNICEF) PO SCH ×3 (08:51→19:36)
[2018-11-04] MEDS: TORSEMIDE 20 MG TAB PO SCH (08:52)
[2018-11-04] MEDS: ATORVASTATIN 10 MG TAB PO SCH (08:56)
[2018-11-04] MEDS: PANTOPRAZOLE 40MG TAB (PROTONIX) PO SCH (08:57)
--- NOTE | 2018-11-04 11:42 | IPNPDOC ---
Text Note Date of Service The patient was seen on 11/04/18. NOTE Subjective:Feels well. Denies any complaints. Objective: Vitals: (see below) General: No acute distress, laying comfortably in bed. HEENT: Moist mucous membranes. Neck: No JVD or lymphadenopathy Cardiac: RRR, No murmurs Pulm: No wheezing. Fine crackles at the bases b/l. No rhonchi. No use of accessory muscles. Abd: NT/ND + BS Ext: 1+ Pitting edema BLE. No cyanosis Labs (see below) Images: Assessment/Plan 1. s/p Acute COPD exacerbation- Cont nebs. Cont Mucinex. On Spiriva. 2. Decompensated diastolic heart failure - on Torsemide, will increase dose. 3. HCAP 2/2 - pt refusing IV Abx. Cont cefdinir. Improving. 4. Acute on chronic anemia - s/p 1U PRBC. Anemia panel. No active bleeding at this time. 5. Subclinical hypothyroidism- Synthroid 6. Normocytic anemia stable no need for treatment at this time. 7. History of TIA. On aspirin and statin 8. History of cor pulmonale 9. DM - cont current insulin regimen. 10. History of nephrectomy. Renal function stable. 11. History of Anxiety 12. History of malaria. 13. H/o Dementia 14. History of CAD with stenting. On aspirin, statin 15. History of Pulmonary hypertension. DVT prophylaxis: hep sq although pt is refusing it. Prognosis guarded. VS,Fishbone, I+O VS, Fishbone, I+O Laboratory Tests 11/03/18 12:45 Red Blood Count 3.58 L, Mean Corpuscular Volume 84.9, Mean Corpuscular Hemoglobin 26.3 L, Mean Corpuscular Hemoglobin Concent 30.9 L, Red Cell Dist ribution Width 17.6 H, Calcium Level 9.1, Aspartate Amino Transf (AST/SGOT) 57 H, Alanine Aminotransferase (ALT/SGPT) 133 H, Alkaline Phosphatase 104, Total Bilirubin 0.3, Total Protein 7.1, Albumin 2.8 L Vital Signs Date Time Temp Pulse Resp B/P (MAP) Pulse Ox O2 Delivery O2 Flow Rate FiO2 11/04/18 09:00 3.0 11/04/18 06:00 98.6 79 20 129/84 (99) 97 Nasal Cannula I&O- Last 24 Hours up to 6 AM 11/04/18 06:00 Intake Total 1330 ml Output Total 750 ml Balance 580 ml JAHAIRA CABALLERO MD Nov 04, 2018 11:42
[2018-11-04] MEDS: LEVALBUTEROL 1.25 MG/0.5 ML CONCENTRATE NEB INH PRN ×2 (13:18→19:54)
[2018-11-05 06:00] VITALS: BP 152/67
[2018-11-05] MEDS: HumaLOG INSULIN (NovoLOG) PER UNIT SC SCH ×4 (07:30→20:05)
[2018-11-05] MEDS: LEVEMIR (INSULIN DETEMIR) 1 UNITS/0.01ML SC SCH (07:33)
[2018-11-05] MEDS: SYMBICORT 160/4.5MCG INHALER 6GM INH SCH ×2 (07:53→21:00)
[2018-11-05] MEDS: TIOTROPIUM INHALER/CAPSULE (SPIRIVA) INH SCH (07:53)
[2018-11-05] MEDS: LEVALBUTEROL 1.25 MG/0.5 ML CONCENTRATE NEB INH PRN ×3 (07:56→14:41)
[2018-11-05 08:14] LABS: HEMATOCRIT 29.7 % (36.0-47.0); HEMOGLOBIN 9.2 g/dl (12.0-15.5); MEAN CORPUSCULAR HEMOGLOBIN 26.3 pg (27.0-33.0); MEAN CORPUSCULAR VOLUME 84.9 fl (80.0-96.0); PLATELET COUNT, AUTOMATED 586 10^3/uL (150-450); WHITE BLOOD COUNT 10.4 10^3/uL (4.0-10.0)
[2018-11-05 08:30] LABS: ALBUMIN 2.8 GM/DL (3.2-5.2); ALT/SGPT 110 U/L (12-78); BILIRUBIN,TOTAL 0.2 MG/DL (0.2-1.0); BLOOD UREA NITROGEN 24 MG/DL (7-18); CALCIUM LEVEL 9.1 MG/DL (8.8-10.2); CARBON DIOXIDE LEVEL 36 MEQ/L (21-32); CHLORIDE LEVEL 96 MEQ/L (98-107); CREATININE FOR GFR 0.81 MG/DL (0.55-1.30); GLOMERULAR FILTRATION RATE > 60.0 (>32); GLUCOSE, FASTING 122 MG/DL (70-100); MAGNESIUM LEVEL 1.8 MG/DL (1.8-2.4); POTASSIUM SERUM 3.6 MEQ/L (3.5-5.1); SODIUM LEVEL 138 MEQ/L (136-145); TOTAL PROTEIN 7.2 GM/DL (6.4-8.2)
[2018-11-05 08:47] LABS: ATYPICAL LYMPH 2 % (0-5); EOSINOPHILS 9 % (0-5); LYMPHOCYTES 13 % (16-52); MONOCYTES 6 % (0-8); MYELOCYTES 4 % (0-0); NEUTROPHILS 64 % (35-75)
[2018-11-05 08:48] LABS: PLATELET ESTIMATE INCREASED (NORMAL)
[2018-11-05 08:49] LABS: ANISOCYTOSIS 1+; MICROCYTOSIS 1+
[2018-11-05] MEDS: HEPARIN SOD (PORCINE) 5000 UNITS/ML VIAL SQ SCH ×2 (09:00→20:05)
[2018-11-05] MEDS: BACTRIM 160MG/800MG DS TAB PO SCH (09:00)
[2018-11-05] MEDS: PANTOPRAZOLE 40MG TAB (PROTONIX) PO SCH (09:00)
[2018-11-05] MEDS: CEFDINIR 300 MG CAP (OMNICEF) PO SCH ×2 (11:28→20:04)
[2018-11-05] MEDS: TORSEMIDE 20 MG TAB PO SCH (11:28)
[2018-11-05] MEDS: ALPRAZolam 0.25 MG TAB PO PRN (11:28)
[2018-11-05] MEDS: predniSONE 5 MG TAB PO SCH (11:29)
[2018-11-05] MEDS: ASPIRIN 81 MG ENTERIC TAB PO SCH (11:29)
[2018-11-05] MEDS: ATORVASTATIN 10 MG TAB PO SCH (11:29)
--- NOTE | 2018-11-05 15:32 | IPNPDOC ---
Subjective Date Seen The patient was seen on 11/05/18. Subjective Chief Complaint/HPI . General: Reports: Fatigue; Denies: Chills Constitutional: Denies: Weakness Pulmonary: Denies: Dyspnea, Cough Cardiovascular: Denies: Chest Pain, Palpitations Gastrointestinal: Denies: Nausea, Vomiting Musculoskeletal: Reports: Other Symptoms (b/l LE swelling) Neurological: Denies: Weakness Psych: Reports: Mood Normal Objective Physical Examination General Exam: Positive: Alert, Cooperative, No Acute Distress, Other (patient admits she is more tired today and wants to sleep) Eye Exam: Negative: Sclera icteric ENT Exam: Positive: Atraumatic, Mucous membr. moist/pink Chest Exam: Positive: Diminished; Negative: Normal air movement, Rales, Rhonchi, Wheezing Heart Exam: Positive: Rate Normal, Normal S1, Normal S2; Negative: Murmurs, Rubs Telemetry: Positive: No significant arrhythmia Abdomen Exam: Positive: Normal bowel sounds, Soft; Negative: Tenderness Extremity Exam: Positive: Edema, Swelling (trace edema in the lower extremities b/l, appears even better today); Negative: Tenderness Neuro Exam: Positive: Normal Speech Psych Exam: Positive: Mental status NL Assessment /Plan Assessment 1. Acute COPD exacerbation -patient continues to be comfortable on exam -resolved -c/w nebulizers, mucinex and spiriva 2. Decompensated diastolic heart failure and b/l LE swelling -has been given increased dose of Torsemide -patients b/l LE seems improved on exam today again -history of intermittent compliance with taking medications -encouraged to ambulate more to help mobilize LE fluid -c/w diuretic therapy 3. Sepsis HCAP 2/2 - -pt had been refusing IV Abx -c/w cefdinir for now day 5 -afebrile for many days, WBC 10.4 stable 4. Acute on chronic anemia - -s/p 1U PRBC -No active bleeding at this time -h/h stable 9.2/29.7 5. Subclinical hypothyroidism -c/w Synthroid 7. History of TIA - On aspirin and statin 8. DM - -c/w current insulin regimen-patient has compliance issues and will refuse insulin therapy 9. History of nephrectomy -renal function stable, creatine today .81 10. History of CAD -s/p stenting, c/w aspirin, statin 11. History of Pulmonary hypertension -stable 12. DVT prophylaxis -c/w hep sq although pt is refusing it Prognosis guarded Pt continues to refuse many of her medications unfortunately Plan/VTE VTE Prophylaxis Ordered?: Yes VS, I&O, 24H, Fishbone Vital Signs/I&O Vital Signs Date Time Temp Pulse Resp B/P (MAP) Pulse Ox O2 Delivery O2 Flow Rate FiO2 11/05/18 06:00 98.0 78 18 152/67 (95) 96 Nasal Cannula 2.0 I&O- Last 24 Hours up to 6 AM 11/05/18 06:00 Intake Total 1590 ml Output Total 600 ml Balance 990 ml Laboratory Data 24H LABS Laboratory Tests 2 11/04/18 17:33: Bedside Glucose (Misc Panel) 166H 11/04/18 20:49: Bedside Glucose (Misc Panel) 241H 11/05/18 05:58: Bedside Glucose (Misc Panel) 109 11/05/18 07:50: Immature Granulocyte % (Auto) , Nucleated Red Blood Cells % (auto) 0.0, Neutrophils 64, Band Neutrophils 2, Lymphocytes (Manual) 13L, Monocytes (Manual) 6, Eosinophils (Manual) 9H, Myelocytes 4H, Atypical Lymphocytes 2, Platelet Estimate INCREASED, Anisocytosis 1+, Microcytosis 1+, Anion Gap 6L, Glomerular Filtration Rate > 60.0, Blood Urea Nitrogen 24H, Creatinine 0.81, Sodium Level 138, Potassium Level 3.6, Chloride Level 96L, Carbon Dioxide Level 36H, Calcium Level 9.1, Aspartate Amino Transf (AST/SGOT) 58H, Alanine Aminotransferase (ALT/SGPT) 110H, Alkaline Phosphatase 98, Total Bilirubin 0.2, Total Protein 7.2, Albumin 2.8L, Magnesium Level 1.8, Albumin/Globulin Ratio 0.64L 11/05/18 11:54: Bedside Glucose (Misc Panel) 137H CBC/BMP Laboratory Tests 11/05/18 07:50 Red Blood Count 3.50 L, Mean Corpuscular Volume 84.9, Mean Corpuscular Hemoglobin 26.3 L, Mean Corpuscular Hemoglobin Concent 31.0 L, Red Cell Distribution Width 17.8 H, Calcium Level 9.1, Aspartate Amino Transf (AST/SGOT) 58 H, Alanine Aminotransferase (ALT/SGPT) 110 H, Alkaline Phosphatase 98, Total Bilirubin 0.2, Total Protein 7.2, Albumin 2.8 L Microbiology Microbiology 10/28/18 Blood Culture - Final, Complete NO GROWTH AFTER 5 DAYS 10/28/18 Blood Culture - Final, Complete NO GROWTH AFTER 5 DAYS 10/28/18 Respiratory Virus Panel (PCR) ([facility]) - Final, Complete GME ATTESTATION GME ATTESTATION My faculty preceptor for this patient encounter was physically present during the encounter and was fully available. All aspects of the patient interview, examination, medical decision making process, and medical care plan development were reviewed and approved by the faculty preceptor. The faculty preceptor is aware and concurs with the plan as stated in the body of this note and will attest to such by his/her cosignature. KELLY MORA DO Nov 05, 2018 15:32
[2018-11-06] MEDS: HumaLOG INSULIN (NovoLOG) PER UNIT SC SCH ×4 (07:30→21:00)
[2018-11-06] MEDS: SYMBICORT 160/4.5MCG INHALER 6GM INH SCH ×2 (07:46→21:00)
[2018-11-06] MEDS: TIOTROPIUM INHALER/CAPSULE (SPIRIVA) INH SCH (07:46)
[2018-11-06] MEDS: TORSEMIDE 20 MG TAB PO SCH ×2 (09:00→09:39)
[2018-11-06] MEDS: CEFDINIR 300 MG CAP (OMNICEF) PO SCH ×3 (09:00→21:00)
[2018-11-06] MEDS: HEPARIN SOD (PORCINE) 5000 UNITS/ML VIAL SQ SCH ×2 (09:00→21:00)
[2018-11-06] MEDS: LEVEMIR (INSULIN DETEMIR) 1 UNITS/0.01ML SC SCH (09:00)
[2018-11-06] MEDS: PANTOPRAZOLE 40MG TAB (PROTONIX) PO SCH (09:00)
[2018-11-06] MEDS: ATORVASTATIN 10 MG TAB PO SCH (09:00)
[2018-11-06] MEDS: ASPIRIN 81 MG ENTERIC TAB PO SCH (09:32)
[2018-11-06] MEDS: predniSONE 5 MG TAB PO SCH (09:32)
--- NOTE | 2018-11-06 12:05 | IPNPDOC ---
Subjective Date Seen The patient was seen on 11/06/18. Subjective Chief Complaint/HPI . General: Reports: Fatigue; Denies: Chills, Night Sweats Constitutional: Reports: Weakness Skin: Denies: Rash, Lesions Pulmonary: Denies: Dyspnea, Cough Cardiovascular: Reports: Edema (b/l LE edema +1); Denies: Chest Pain, Palpitations, Orthopnea, Lt Headedness Gastrointestinal: Denies: Nausea, Vomiting, Abdominal Pain Neurological: Reports: Weakness Objective Physical Examination General Exam: Positive: Alert, Cooperative, No Acute Distress Eye Exam: Negative: Sclera icteric ENT Exam: Positive: Atraumatic, Mucous membr. moist/pink Chest Exam: Positive: Diminished; Negative: Normal air movement, Rales, Rhonchi, Wheezing Heart Exam: Positive: Rate Normal, Normal S1, Normal S2; Negative: Murmurs, Rubs Telemetry: Positive: No significant arrhythmia Abdomen Exam: Positive: Normal bowel sounds, Soft; Negative: Tenderness Extremity Exam: Positive: Edema, Swelling (trace edema in the lower extremities b/l, appears a bit more edematous today); Negative: Tenderness Neuro Exam: Positive: Normal Speech Psych Exam: Positive: Mental status NL Assessment /Plan Assessment 1. Acute COPD exacerbation -patient continues to be comfortable on exam -resolved -c/w nebulizers, mucinex and spiriva 2. Decompensated diastolic heart failure and b/l LE swelling -c/w Torsemide -patients b/l LE seems minimally worse today -history of intermittent compliance with taking medications -encouraged to ambulate more to help mobilize LE fluid-pt agreed to this -c/w diuretic therapy as outlined above 3. Sepsis HCAP 2/2 - -pt had been refusing IV Abx -c/w cefdinir for now day 6 -afebrile for many days, WBC 10.4 yesterday, stable 4. Acute on chronic anemia - -s/p 1U PRBC -No active bleeding at this time -h/h stable 9.2/29.7 yesterday 5. Subclinical hypothyroidism -c/w Synthroid 7. History of TIA - On aspirin and statin 8. DM - -c/w current insulin regimen-patient has compliance issues and will refuse insulin therapy 9. History of nephrectomy -renal function stable, creatine yesterday .81 10. History of CAD -s/p stenting, c/w aspirin, statin 11. History of Pulmonary hypertension -stable 12. DVT prophylaxis -c/w hep sq although pt is refusing it Prognosis guarded Pt continues to refuse many of her medications unfortunately Plan/VTE VTE Prophylaxis Ordered?: Yes VS, I&O, 24H, Fishbone Vital Signs/I&O Vital Signs Date Time Temp Pulse Resp B/P (MAP) Pulse Ox O2 Delivery O2 Flow Rate FiO2 11/06/18 09:30 3.0 11/05/18 06:00 98.0 78 18 152/67 (95) 96 Nasal Cannula I&O- Last 24 Hours up to 6 AM 11/06/18 05:59 Intake Total 910 ml Output Total 750 ml Balance 160 ml Laboratory Data 24H LABS Laboratory Tests 2 11/05/18 16:40: Bedside Glucose (Misc Panel) 351H 11/05/18 19:56: Bedside Glucose (Misc Panel) 182H 11/06/18 11:38: Bedside Glucose (Misc Panel) 205H Microbiology Microbiology 10/28/18 Blood Culture - Final, Complete NO GROWTH AFTER 5 DAYS 10/28/18 Blood Culture - Final, Complete NO GROWTH AFTER 5 DAYS 10/28/18 Respiratory Virus Panel (PCR) ([facility]) - Final, Complete GME ATTESTATION GME ATTESTATION My faculty preceptor for this patient encounter was physically present during the encounter and was fully available. All aspects of the patient interview, examination, medical decision making process, and medical care plan development were reviewed and approved by the faculty preceptor. The faculty preceptor is aware and concurs with the plan as stated in the body of this note and will attest to such by his/her cosignature. KELLY MORA DO Nov 06, 2018 12:05
[2018-11-07 06:00] VITALS: BP 148/68
[2018-11-07] MEDS: HumaLOG INSULIN (NovoLOG) PER UNIT SC SCH ×4 (07:30→20:49)
[2018-11-07] MEDS: SYMBICORT 160/4.5MCG INHALER 6GM INH SCH (08:00)
[2018-11-07] MEDS: TIOTROPIUM INHALER/CAPSULE (SPIRIVA) INH SCH (08:00)
[2018-11-07] MEDS: HEPARIN SOD (PORCINE) 5000 UNITS/ML VIAL SQ SCH ×2 (09:00→20:50)
[2018-11-07] MEDS: PANTOPRAZOLE 40MG TAB (PROTONIX) PO SCH (09:00)
[2018-11-07] MEDS: BACTRIM 160MG/800MG DS TAB PO SCH (09:00)
[2018-11-07] MEDS: ATORVASTATIN 10 MG TAB PO SCH (09:00)
[2018-11-07] MEDS: LEVEMIR (INSULIN DETEMIR) 1 UNITS/0.01ML SC SCH (09:00)
[2018-11-07] MEDS: ASPIRIN 81 MG ENTERIC TAB PO SCH (09:17)
[2018-11-07] MEDS: TORSEMIDE 20 MG TAB PO SCH (09:17)
[2018-11-07] MEDS: CEFDINIR 300 MG CAP (OMNICEF) PO SCH ×2 (09:17→20:49)
[2018-11-07] MEDS: predniSONE 5 MG TAB PO SCH (09:17)
[2018-11-08] MEDS: SYMBICORT 160/4.5MCG INHALER 6GM INH SCH ×3 (03:51→19:43)
[2018-11-08 06:00] VITALS: BP 154/67
[2018-11-08] MEDS: HumaLOG INSULIN (NovoLOG) PER UNIT SC SCH ×4 (07:30→20:51)
[2018-11-08] MEDS: TIOTROPIUM INHALER/CAPSULE (SPIRIVA) INH SCH (08:05)
[2018-11-08] MEDS: ASPIRIN 81 MG ENTERIC TAB PO SCH (09:00)
[2018-11-08] MEDS: predniSONE 5 MG TAB PO SCH (09:00)
[2018-11-08] MEDS: PANTOPRAZOLE 40MG TAB (PROTONIX) PO SCH (09:00)
[2018-11-08] MEDS: ATORVASTATIN 10 MG TAB PO SCH (09:00)
[2018-11-08] MEDS: TORSEMIDE 20 MG TAB PO SCH (09:00)
[2018-11-08] MEDS: LEVEMIR (INSULIN DETEMIR) 1 UNITS/0.01ML SC SCH (09:00)
[2018-11-08] MEDS: HEPARIN SOD (PORCINE) 5000 UNITS/ML VIAL SQ SCH ×2 (09:00→20:52)
[2018-11-09 06:00] VITALS: BP 127/58
[2018-11-09] MEDS: HumaLOG INSULIN (NovoLOG) PER UNIT SC SCH ×4 (07:30→21:00)
[2018-11-09] MEDS: SYMBICORT 160/4.5MCG INHALER 6GM INH SCH ×2 (08:12→19:34)
[2018-11-09] MEDS: TIOTROPIUM INHALER/CAPSULE (SPIRIVA) INH SCH (08:12)
[2018-11-09] MEDS: LEVEMIR (INSULIN DETEMIR) 1 UNITS/0.01ML SC SCH (09:00)
[2018-11-09] MEDS: PANTOPRAZOLE 40MG TAB (PROTONIX) PO SCH (09:00)
[2018-11-09] MEDS: ASPIRIN 81 MG ENTERIC TAB PO SCH (09:00)
[2018-11-09] MEDS: BACTRIM 160MG/800MG DS TAB PO SCH (09:00)
[2018-11-09] MEDS: HEPARIN SOD (PORCINE) 5000 UNITS/ML VIAL SQ SCH ×2 (09:00→21:00)
[2018-11-09] MEDS: ATORVASTATIN 10 MG TAB PO SCH (09:00)
[2018-11-09] MEDS: ALPRAZolam 0.25 MG TAB PO PRN (10:28)
[2018-11-09] MEDS: TORSEMIDE 20 MG TAB PO SCH (10:28)
[2018-11-09] MEDS: predniSONE 5 MG TAB PO SCH (10:28)
[2018-11-09] MEDS: LEVALBUTEROL 1.25 MG/0.5 ML CONCENTRATE NEB INH PRN (13:21)
[2018-11-10 06:00] VITALS: BP 136/60
[2018-11-10] MEDS: HumaLOG INSULIN (NovoLOG) PER UNIT SC SCH ×4 (07:30→21:00)
[2018-11-10] MEDS: SYMBICORT 160/4.5MCG INHALER 6GM INH SCH ×2 (08:58→21:00)
[2018-11-10] MEDS: LEVEMIR (INSULIN DETEMIR) 1 UNITS/0.01ML SC SCH (09:00)
[2018-11-10] MEDS: ASPIRIN 81 MG ENTERIC TAB PO SCH (09:00)
[2018-11-10] MEDS: ATORVASTATIN 10 MG TAB PO SCH (09:00)
[2018-11-10] MEDS: predniSONE 5 MG TAB PO SCH (09:00)
[2018-11-10] MEDS: TORSEMIDE 20 MG TAB PO SCH (09:00)
[2018-11-10] MEDS: PANTOPRAZOLE 40MG TAB (PROTONIX) PO SCH (09:00)
[2018-11-10] MEDS: HEPARIN SOD (PORCINE) 5000 UNITS/ML VIAL SQ SCH ×2 (09:00→21:00)
[2018-11-10] MEDS: TIOTROPIUM INHALER/CAPSULE (SPIRIVA) INH SCH (10:45)
[2018-11-10] MEDS: LEVALBUTEROL 1.25 MG/0.5 ML CONCENTRATE NEB INH PRN (10:46)
[2018-11-11 06:00] VITALS: BP 134/96
[2018-11-11] MEDS: HumaLOG INSULIN (NovoLOG) PER UNIT SC SCH ×4 (07:30→21:00)
[2018-11-11] MEDS: TIOTROPIUM INHALER/CAPSULE (SPIRIVA) INH SCH (08:39)
[2018-11-11] MEDS: SYMBICORT 160/4.5MCG INHALER 6GM INH SCH ×2 (08:39→21:01)
[2018-11-11] MEDS: ASPIRIN 81 MG ENTERIC TAB PO SCH (09:00)
[2018-11-11] MEDS: ATORVASTATIN 10 MG TAB PO SCH (09:00)
[2018-11-11] MEDS: HEPARIN SOD (PORCINE) 5000 UNITS/ML VIAL SQ SCH ×2 (09:00→21:00)
[2018-11-11] MEDS: LEVEMIR (INSULIN DETEMIR) 1 UNITS/0.01ML SC SCH (09:00)
[2018-11-11] MEDS: TORSEMIDE 20 MG TAB PO SCH (09:00)
[2018-11-11] MEDS: predniSONE 5 MG TAB PO SCH (09:00)
[2018-11-11] MEDS: PANTOPRAZOLE 40MG TAB (PROTONIX) PO SCH (09:00)
[2018-11-11] MEDS: LEVALBUTEROL 1.25 MG/0.5 ML CONCENTRATE NEB INH PRN (13:39)
[2018-11-12 06:00] VITALS: BP 134/67
[2018-11-12] MEDS: HumaLOG INSULIN (NovoLOG) PER UNIT SC SCH ×4 (07:30→21:00)
[2018-11-12] MEDS: TIOTROPIUM INHALER/CAPSULE (SPIRIVA) INH SCH (07:55)
[2018-11-12] MEDS: SYMBICORT 160/4.5MCG INHALER 6GM INH SCH ×2 (07:55→21:00)
[2018-11-12] MEDS: TORSEMIDE 20 MG TAB PO SCH ×2 (09:00→10:43)
[2018-11-12] MEDS: HEPARIN SOD (PORCINE) 5000 UNITS/ML VIAL SQ SCH ×2 (09:00→21:00)
[2018-11-12] MEDS: ATORVASTATIN 10 MG TAB PO SCH (09:00)
[2018-11-12] MEDS: PANTOPRAZOLE 40MG TAB (PROTONIX) PO SCH (09:00)
[2018-11-12] MEDS: BACTRIM 160MG/800MG DS TAB PO SCH (09:00)
[2018-11-12] MEDS: LEVEMIR (INSULIN DETEMIR) 1 UNITS/0.01ML SC SCH (09:00)
[2018-11-12] MEDS: ASPIRIN 81 MG ENTERIC TAB PO SCH (10:36)
[2018-11-12] MEDS: predniSONE 5 MG TAB PO SCH (10:36)
[2018-11-12] MEDS: ACETAMINOPHEN TAB 650MG DOSE (2X325MG) PO PRN (21:12)
[2018-11-13 06:00] VITALS: BP 148/65
[2018-11-13] MEDS: TIOTROPIUM INHALER/CAPSULE (SPIRIVA) INH SCH (07:09)
[2018-11-13] MEDS: SYMBICORT 160/4.5MCG INHALER 6GM INH SCH ×2 (07:09→21:00)
[2018-11-13] MEDS: LEVALBUTEROL 1.25 MG/0.5 ML CONCENTRATE NEB INH PRN ×2 (07:10→20:36)
[2018-11-13] MEDS: HumaLOG INSULIN (NovoLOG) PER UNIT SC SCH ×4 (07:30→21:00)
[2018-11-13 08:48] LABS: HEMATOCRIT 29.4 % (36.0-47.0); HEMOGLOBIN 9.4 g/dl (12.0-15.5); MEAN CORPUSCULAR HEMOGLOBIN 26.9 pg (27.0-33.0); PLATELET COUNT, AUTOMATED 438 10^3/uL (150-450); WHITE BLOOD COUNT 12.5 10^3/uL (4.0-10.0)
[2018-11-13 09:14] LABS: BLOOD UREA NITROGEN 19 MG/DL (7-18); CALCIUM LEVEL 9.1 MG/DL (8.8-10.2); CARBON DIOXIDE LEVEL 33 MEQ/L (21-32); CHLORIDE LEVEL 97 MEQ/L (98-107); CREATININE FOR GFR 0.72 MG/DL (0.55-1.30); GLOMERULAR FILTRATION RATE > 60.0 (>32); GLUCOSE, FASTING 128 MG/DL (70-100); NT-PRO BNP 204 PG/ML (<450); POTASSIUM SERUM 3.5 MEQ/L (3.5-5.1); SODIUM LEVEL 137 MEQ/L (136-145)
[2018-11-13] MEDS: HEPARIN SOD (PORCINE) 5000 UNITS/ML VIAL SQ SCH ×2 (10:00→21:00)
[2018-11-13] MEDS: PANTOPRAZOLE 40MG TAB (PROTONIX) PO SCH (10:00)
[2018-11-13] MEDS: LEVEMIR (INSULIN DETEMIR) 1 UNITS/0.01ML SC SCH (10:00)
[2018-11-13] MEDS: ATORVASTATIN 10 MG TAB PO SCH (10:00)
--- NOTE | 2018-11-13 10:22 | IPNPDOC ---
Date Seen The patient was seen on 11/13/18. Progress Note SUBJECTIVE: Pt c/o feeling "queasy" but does not want any medications changed. Pt continues to be noncompliant w her meds. Objective Physical Examination General Exam: Positive: Alert, Cooperative, No Acute Distress Eye Exam: Negative: Sclera icteric ENT Exam: Positive: Atraumatic, Mucous membr. moist/pink Chest Exam: Positive: Diminished; Negative: Normal air movement, Rales, Rhonchi, Wheezing Heart Exam: Positive: Rate Normal, Normal S1, Normal S2; Negative: Murmurs, Rubs Telemetry: Positive: No significant arrhythmia Abdomen Exam: Positive: Normal bowel sounds, Soft; Negative: Tenderness Extremity Exam: Positive: Edema, Swelling (trace edema in the lower extremities b/l, appears a bit more edematous today); Negative: Tenderness Neuro Exam: Positive: Normal Speech Psych Exam: Positive: Mental status NL Assessment /Plan Assessment 1. Acute COPD exacerbation -patient continues to be comfortable on exam -resolved -c/w nebulizers, mucinex and spiriva 2. Decompensated diastolic heart failure and b/l LE swelling -c/w Torsemide -patients b/l LE seems minimally worse today -history of intermittent compliance with taking medications -encouraged to ambulate more to help mobilize LE fluid-pt agreed to this -c/w diuretic therapy as outlined above 3. Sepsis HCAP 2/2 - -pt had been refusing IV Abx -c/w cefdinir for now day 6 -afebrile for many days, WBC 10.4 yesterday, stable 4. Acute on chronic anemia - -s/p 1U PRBC -No active bleeding at this time -h/h stable 9.2/29.7 yesterday 5. Subclinical hypothyroidism -c/w Synthroid 7. History of TIA - On aspirin and statin 8. DM - -c/w current insulin regimen-patient has compliance issues and will refuse insulin therapy 9. History of nephrectomy -renal function stable, creatine yesterday .81 10. History of CAD -s/p stenting, c/w aspirin, statin 11. History of Pulmonary hypertension -stable 12. DVT prophylaxis -c/w hep sq although pt is refusing it Prognosis guarded Pt continues to refuse many of her medications unfortunately VS, I&O, 24H, Fishbone Vital Signs/I&O Vital Signs Date Time Temp Pulse Resp B/P (MAP) Pulse Ox O2 Delivery O2 Flow Rate FiO2 11/13/18 06:00 98.4 89 20 148/65 (92) 99 Nasal Cannula 3.0 I&O- Last 24 Hours up to 6 AM 11/13/18 05:59 Intake Total 1290 ml Balance 1290 ml Laboratory Data 24H LABS Laboratory Tests 2 11/12/18 11:51: Bedside Glucose (Misc Panel) 165H 11/12/18 20:41: Bedside Glucose (Misc Panel) 167H 11/13/18 06:42: Bedside Glucose (Misc Panel) 115H 11/13/18 08:22: Nucleated Red Blood Cells % (auto) 0.0, Anion Gap 7L, Glomerular Filtration Rate > 60.0, Blood Urea Nitrogen 19H, Creatinine 0.72, Sodium Level 137, Potassium Level 3.5, Chloride Level 97L, Carbon Dioxide Level 33H, Calcium Level 9.1, [id number]-Type Natriuretic Peptide 204 CBC/BMP Laboratory Tests 11/13/18 08:22 Red Blood Count 3.50 L, Mean Corpuscular Volume 84.0, Mean Corpuscular Hemoglobin 26.9 L, Mean Corpuscular Hemoglobin Concent 32.0, Red Cell D istribution Width 19.6 H, Calcium Level 9.1 VIKASH ANTHONY MD Nov 13, 2018 10:22
[2018-11-13] MEDS: TORSEMIDE 20 MG TAB PO SCH (10:27)
[2018-11-13] MEDS: ASPIRIN 81 MG ENTERIC TAB PO SCH (10:27)
[2018-11-13] MEDS: predniSONE 5 MG TAB PO SCH (10:27)
[2018-11-14] MEDS: ACETAMINOPHEN TAB 650MG DOSE (2X325MG) PO PRN (04:02)
[2018-11-14 06:00] VITALS: BP 118/59
[2018-11-14] MEDS: HumaLOG INSULIN (NovoLOG) PER UNIT SC SCH ×4 (07:30→21:00)
[2018-11-14] MEDS: ASPIRIN 81 MG ENTERIC TAB PO SCH (09:00)
[2018-11-14] MEDS: BACTRIM 160MG/800MG DS TAB PO SCH (09:00)
[2018-11-14] MEDS: TORSEMIDE 20 MG TAB PO SCH (09:00)
[2018-11-14] MEDS: HEPARIN SOD (PORCINE) 5000 UNITS/ML VIAL SQ SCH ×2 (09:00→20:16)
[2018-11-14] MEDS: ATORVASTATIN 10 MG TAB PO SCH (09:00)
[2018-11-14] MEDS: PANTOPRAZOLE 40MG TAB (PROTONIX) PO SCH (09:00)
[2018-11-14] MEDS: predniSONE 5 MG TAB PO SCH (09:00)
[2018-11-14] MEDS: LEVEMIR (INSULIN DETEMIR) 1 UNITS/0.01ML SC SCH (09:00)
[2018-11-14] MEDS: TIOTROPIUM INHALER/CAPSULE (SPIRIVA) INH SCH (11:42)
[2018-11-14] MEDS: LEVALBUTEROL 1.25 MG/0.5 ML CONCENTRATE NEB INH PRN ×2 (11:44→20:54)
[2018-11-14] MEDS: SYMBICORT 160/4.5MCG INHALER 6GM INH SCH ×2 (11:44→20:54)
[2018-11-15 06:00] VITALS: BP 133/64
[2018-11-15] MEDS: HumaLOG INSULIN (NovoLOG) PER UNIT SC SCH ×4 (07:55→21:00)
[2018-11-15] MEDS: SYMBICORT 160/4.5MCG INHALER 6GM INH SCH ×2 (08:36→21:53)
[2018-11-15] MEDS: TIOTROPIUM INHALER/CAPSULE (SPIRIVA) INH SCH (08:36)
[2018-11-15] MEDS: HEPARIN SOD (PORCINE) 5000 UNITS/ML VIAL SQ SCH ×2 (09:00→21:00)
[2018-11-15] MEDS: ATORVASTATIN 10 MG TAB PO SCH (09:00)
[2018-11-15] MEDS: TORSEMIDE 20 MG TAB PO SCH (09:00)
[2018-11-15] MEDS: PANTOPRAZOLE 40MG TAB (PROTONIX) PO SCH (09:00)
[2018-11-15] MEDS: LEVEMIR (INSULIN DETEMIR) 1 UNITS/0.01ML SC SCH (09:00)
[2018-11-15] MEDS: ASPIRIN 81 MG ENTERIC TAB PO SCH (10:53)
[2018-11-15] MEDS: predniSONE 5 MG TAB PO SCH (10:53)
[2018-11-16 06:00] VITALS: BP 144/65
[2018-11-16] MEDS: HumaLOG INSULIN (NovoLOG) PER UNIT SC SCH ×4 (07:30→20:45)
[2018-11-16] MEDS: TIOTROPIUM INHALER/CAPSULE (SPIRIVA) INH SCH (08:08)
[2018-11-16] MEDS: LEVALBUTEROL 1.25 MG/0.5 ML CONCENTRATE NEB INH PRN (08:09)
[2018-11-16] MEDS: SYMBICORT 160/4.5MCG INHALER 6GM INH SCH ×2 (08:09→19:49)
[2018-11-16] MEDS: LEVEMIR (INSULIN DETEMIR) 1 UNITS/0.01ML SC SCH (08:10)
[2018-11-16] MEDS: HEPARIN SOD (PORCINE) 5000 UNITS/ML VIAL SQ SCH ×2 (08:11→20:46)
[2018-11-16] MEDS: PANTOPRAZOLE 40MG TAB (PROTONIX) PO SCH (09:00)
[2018-11-16] MEDS: ATORVASTATIN 10 MG TAB PO SCH (10:35)
[2018-11-16] MEDS: ALPRAZolam 0.25 MG TAB PO PRN (10:35)
[2018-11-16] MEDS: TORSEMIDE 20 MG TAB PO SCH (10:35)
[2018-11-16] MEDS: ASPIRIN 81 MG ENTERIC TAB PO SCH (10:35)
[2018-11-16] MEDS: BACTRIM 160MG/800MG DS TAB PO SCH (10:36)
[2018-11-16] MEDS: predniSONE 5 MG TAB PO SCH (10:36)
[2018-11-17 06:00] VITALS: BP 141/60
[2018-11-17] MEDS: HumaLOG INSULIN (NovoLOG) PER UNIT SC SCH ×4 (07:22→20:38)
[2018-11-17] MEDS: TIOTROPIUM INHALER/CAPSULE (SPIRIVA) INH SCH (08:00)
[2018-11-17] MEDS: HEPARIN SOD (PORCINE) 5000 UNITS/ML VIAL SQ SCH ×2 (09:00→20:39)
[2018-11-17] MEDS: LEVEMIR (INSULIN DETEMIR) 1 UNITS/0.01ML SC SCH (09:00)
[2018-11-17] MEDS: PANTOPRAZOLE 40MG TAB (PROTONIX) PO SCH (09:00)
[2018-11-17] MEDS: ATORVASTATIN 10 MG TAB PO SCH (09:28)
[2018-11-17] MEDS: ASPIRIN 81 MG ENTERIC TAB PO SCH (09:28)
[2018-11-17] MEDS: TORSEMIDE 20 MG TAB PO SCH (09:28)
[2018-11-17] MEDS: predniSONE 5 MG TAB PO SCH (09:28)
[2018-11-17] MEDS: SYMBICORT 160/4.5MCG INHALER 6GM INH SCH ×2 (09:43→18:58)
[2018-11-17] MEDS: LEVALBUTEROL 1.25 MG/0.5 ML CONCENTRATE NEB INH PRN ×2 (09:52→18:58)
[2018-11-18 06:00] VITALS: BP 141/64
[2018-11-18] MEDS: HumaLOG INSULIN (NovoLOG) PER UNIT SC SCH ×4 (07:30→20:25)
[2018-11-18] MEDS: TIOTROPIUM INHALER/CAPSULE (SPIRIVA) INH SCH (07:42)
[2018-11-18] MEDS: SYMBICORT 160/4.5MCG INHALER 6GM INH SCH ×2 (07:42→19:49)
[2018-11-18] MEDS: HEPARIN SOD (PORCINE) 5000 UNITS/ML VIAL SQ SCH ×2 (09:00→19:16)
[2018-11-18] MEDS: PANTOPRAZOLE 40MG TAB (PROTONIX) PO SCH (09:00)
[2018-11-18] MEDS: ASPIRIN 81 MG ENTERIC TAB PO SCH (09:00)
[2018-11-18] MEDS: LEVEMIR (INSULIN DETEMIR) 1 UNITS/0.01ML SC SCH (09:00)
[2018-11-18] MEDS: TORSEMIDE 20 MG TAB PO SCH (09:00)
[2018-11-18] MEDS: predniSONE 5 MG TAB PO SCH (09:00)
[2018-11-18] MEDS: ATORVASTATIN 10 MG TAB PO SCH (09:00)
[2018-11-18] MEDS: LEVALBUTEROL 1.25 MG/0.5 ML CONCENTRATE NEB INH PRN (11:04)
[2018-11-19 06:00] VITALS: BP 145/65
[2018-11-19] MEDS: SYMBICORT 160/4.5MCG INHALER 6GM INH SCH ×2 (06:57→19:47)
[2018-11-19] MEDS: TIOTROPIUM INHALER/CAPSULE (SPIRIVA) INH SCH (06:57)
[2018-11-19] MEDS: LEVALBUTEROL 1.25 MG/0.5 ML CONCENTRATE NEB INH PRN ×2 (06:57→13:34)
[2018-11-19] MEDS: HumaLOG INSULIN (NovoLOG) PER UNIT SC SCH ×4 (07:21→21:00)
[2018-11-19] MEDS: HEPARIN SOD (PORCINE) 5000 UNITS/ML VIAL SQ SCH ×2 (08:47→21:00)
[2018-11-19] MEDS: LEVEMIR (INSULIN DETEMIR) 1 UNITS/0.01ML SC SCH (08:47)
[2018-11-19] MEDS: BACTRIM 160MG/800MG DS TAB PO SCH (09:00)
[2018-11-19] MEDS: ATORVASTATIN 10 MG TAB PO SCH (09:00)
[2018-11-19] MEDS: PANTOPRAZOLE 40MG TAB (PROTONIX) PO SCH (09:00)
[2018-11-19] MEDS: ASPIRIN 81 MG ENTERIC TAB PO SCH (09:53)
[2018-11-19] MEDS: predniSONE 5 MG TAB PO SCH (09:53)
[2018-11-19] MEDS: TORSEMIDE 20 MG TAB PO SCH (09:55)
[2018-11-20 06:00] VITALS: BP 141/64
[2018-11-20] MEDS: HumaLOG INSULIN (NovoLOG) PER UNIT SC SCH ×4 (07:30→21:00)
[2018-11-20] MEDS: SYMBICORT 160/4.5MCG INHALER 6GM INH SCH ×2 (08:32→21:00)
[2018-11-20] MEDS: TIOTROPIUM INHALER/CAPSULE (SPIRIVA) INH SCH (08:32)
[2018-11-20] MEDS: LEVALBUTEROL 1.25 MG/0.5 ML CONCENTRATE NEB INH PRN ×3 (08:33→21:26)
[2018-11-20] MEDS: ATORVASTATIN 10 MG TAB PO SCH (09:00)
[2018-11-20] MEDS: LEVEMIR (INSULIN DETEMIR) 1 UNITS/0.01ML SC SCH (09:00)
[2018-11-20] MEDS: TORSEMIDE 20 MG TAB PO SCH (09:00)
[2018-11-20] MEDS: PANTOPRAZOLE 40MG TAB (PROTONIX) PO SCH (09:00)
[2018-11-20] MEDS: HEPARIN SOD (PORCINE) 5000 UNITS/ML VIAL SQ SCH ×2 (09:00→20:57)
[2018-11-20] MEDS: predniSONE 5 MG TAB PO SCH (09:00)
[2018-11-20] MEDS: ASPIRIN 81 MG ENTERIC TAB PO SCH (10:08)
[2018-11-21 06:00] VITALS: BP 148/67
[2018-11-21] MEDS: HumaLOG INSULIN (NovoLOG) PER UNIT SC SCH ×4 (07:30→20:52)
[2018-11-21] MEDS: SYMBICORT 160/4.5MCG INHALER 6GM INH SCH ×2 (08:05→21:53)
[2018-11-21] MEDS: LEVALBUTEROL 1.25 MG/0.5 ML CONCENTRATE NEB INH PRN ×4 (08:06→21:53)
[2018-11-21] MEDS: TIOTROPIUM INHALER/CAPSULE (SPIRIVA) INH SCH (08:06)
[2018-11-21] MEDS: LEVEMIR (INSULIN DETEMIR) 1 UNITS/0.01ML SC SCH (09:00)
[2018-11-21] MEDS: HEPARIN SOD (PORCINE) 5000 UNITS/ML VIAL SQ SCH ×2 (09:00→20:52)
[2018-11-21] MEDS: ATORVASTATIN 10 MG TAB PO SCH (10:24)
[2018-11-21] MEDS: BACTRIM 160MG/800MG DS TAB PO SCH (10:24)
[2018-11-21] MEDS: ASPIRIN 81 MG ENTERIC TAB PO SCH (10:24)
[2018-11-21] MEDS: predniSONE 5 MG TAB PO SCH (10:24)
[2018-11-21] MEDS: TORSEMIDE 20 MG TAB PO SCH (10:25)
[2018-11-21] MEDS: PANTOPRAZOLE 40MG TAB (PROTONIX) PO SCH (10:25)
[2018-11-22 06:00] VITALS: BP 151/66
[2018-11-22] MEDS: TIOTROPIUM INHALER/CAPSULE (SPIRIVA) INH SCH (07:24)
[2018-11-22] MEDS: SYMBICORT 160/4.5MCG INHALER 6GM INH SCH ×2 (07:24→19:31)
[2018-11-22] MEDS: HumaLOG INSULIN (NovoLOG) PER UNIT SC SCH ×4 (07:26→20:56)
[2018-11-22] MEDS: HEPARIN SOD (PORCINE) 5000 UNITS/ML VIAL SQ SCH ×2 (09:00→20:57)
[2018-11-22] MEDS: PANTOPRAZOLE 40MG TAB (PROTONIX) PO SCH (09:00)
[2018-11-22] MEDS: TORSEMIDE 20 MG TAB PO SCH (09:00)
[2018-11-22] MEDS: LEVEMIR (INSULIN DETEMIR) 1 UNITS/0.01ML SC SCH (09:00)
[2018-11-22] MEDS: ATORVASTATIN 10 MG TAB PO SCH (09:00)
[2018-11-22 09:40] LABS: BASO # 0.1 10^3/uL (0.0-0.2); BASO % 0.7 % (0.0-1.0); EOS # 1.1 10^3/uL (0.0-0.50); EOS % 11.1 % (0.0-3.0); HEMATOCRIT 26.8 % (36.0-47.0); HEMOGLOBIN 8.3 g/dl (12.0-15.5); LYMPH % 9.4 % (24.0-44.0); MEAN CORPUSCULAR HEMOGLOBIN 26.4 pg (27.0-33.0); MEAN CORPUSCULAR VOLUME 85.4 fl (80.0-96.0); MONO # 0.9 10^3/uL (0.0-0.8); MONO % 8.9 % (0.0-5.0); NEUTROPHILS # 7.1 10^3/uL (1.8-7.7); NEUTROPHILS % 69.2 % (36.0-66.0); PLATELET COUNT, AUTOMATED 434 10^3/uL (150-450); RED BLOOD COUNT 3.14 10^6/uL (4.00-5.40); WHITE BLOOD COUNT 10.3 10^3/uL (4.0-10.0)
[2018-11-22] MEDS: ASPIRIN 81 MG ENTERIC TAB PO SCH (09:48)
[2018-11-22] MEDS: predniSONE 5 MG TAB PO SCH (09:49)
[2018-11-22 10:09] LABS: CALCIUM LEVEL 8.7 MG/DL (8.8-10.2); CREATININE FOR GFR 1.08 MG/DL (0.55-1.30); GLOMERULAR FILTRATION RATE 51.3 (>32); POTASSIUM SERUM 3.6 MEQ/L (3.5-5.1)
--- NOTE | 2018-11-22 23:04 | IPNPDOC ---
Text Note Date of Service The patient was seen on 11/22/18. NOTE SUBJECTIVE: Patient says I am fine. Did offer any complaints. Says does not know why her legs are always swollen. Does not want to talk any more. Physical Examination General Exam: Positive: Alert, Cooperative, No Acute Distress Eye Exam: Negative: Sclera icteric ENT Exam: Positive: Atraumatic, Mucous membr. moist/pink Chest Exam: Positive: Diminished; Negative: Normal air movement, Rales, Rhonchi, Wheezing Heart Exam: Positive: Rate Normal, Normal S1, Normal S2; Negative: Murmurs, Rubs Telemetry: Positive: No significant arrhythmia Abdomen Exam: Positive: Normal bowel sounds, Soft; Negative: Tenderness Extremity Exam: Positive: Edema, Swelling (trace edema in the lower extremities b/l, appears a bit more edematous today); Negative: Tenderness Neuro Exam: Positive: Normal Speech Psych Exam: Positive: Mental status NL Assessment /Plan Assessment 1. 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 Decompensated diastolic heart failure and right heart failure with b/l LE swelling -c/w Torsemide -history of intermittent compliance with taking medications -encouraged to ambulate more to help mobilize LE fluid-pt agreed to this -c/w diuretic therapy as outlined above 3. Infections this admissio -UTI -HCAP 4. Chronic anemia -No active bleeding at this -h/h stable 5. Subclinical hypothyroidism -c/w Synthroid 7. History of TIA - On aspirin and statin 8. DM - -c/w current insulin regimen-patient has compliance issues and will refuse insulin therapy 9. History of nephrectomy -renal function stable, creatine yesterday .81 10. History of CAD -s/p stenting, c/w aspirin, statin 11. Severe Pulmonary hypertension with corpulmonale -stable 13. History of left lower extremity DVT -not on any anticoagulation. Even refuses heparin 13. DVT prophylaxis -c/w hep sq although pt is refusing 14. GERD - on omeprazole 15.History of Nephrectomy -renal functions normal Prognosis guarded Pt continues to refuse many of her medications unfortunately VS,Fishbone, I+O VS, Fishbone, I+O Vital Signs Date Time Temp Pulse Resp B/P (MAP) Pulse Ox O2 Delivery O2 Flow Rate FiO2 11/22/18 06:00 98.2 90 21 151/66 (94) 95 Nasal Cannula 3.0 I&O- Last 24 Hours up to 6 AM 11/22/18 06:00 Intake Total 860 ml Output Total 1300 ml Balance -440 ml GEORGIA TRIMBLE MD Nov 22, 2018 07:10
[2018-11-23 06:00] VITALS: BP 145/68
[2018-11-23] MEDS: LEVALBUTEROL 1.25 MG/0.5 ML CONCENTRATE NEB INH PRN (06:33)
[2018-11-23] MEDS: HumaLOG INSULIN (NovoLOG) PER UNIT SC SCH ×4 (07:23→21:00)
[2018-11-23] MEDS: LEVEMIR (INSULIN DETEMIR) 1 UNITS/0.01ML SC SCH (07:24)
[2018-11-23] MEDS: HEPARIN SOD (PORCINE) 5000 UNITS/ML VIAL SQ SCH ×2 (07:24→21:00)
[2018-11-23] MEDS: TIOTROPIUM INHALER/CAPSULE (SPIRIVA) INH SCH (08:07)
[2018-11-23] MEDS: SYMBICORT 160/4.5MCG INHALER 6GM INH SCH ×2 (08:07→19:38)
[2018-11-23] MEDS: PANTOPRAZOLE 40MG TAB (PROTONIX) PO SCH (09:00)
[2018-11-23] MEDS: ATORVASTATIN 10 MG TAB PO SCH (09:00)
[2018-11-23] MEDS: BACTRIM 160MG/800MG DS TAB PO SCH (09:00)
[2018-11-23] MEDS: TORSEMIDE 20 MG TAB PO SCH (09:00)
[2018-11-23] MEDS: ASPIRIN 81 MG ENTERIC TAB PO SCH (10:30)
[2018-11-23] MEDS: predniSONE 5 MG TAB PO SCH (10:30)
[2018-11-24] MEDS: LEVALBUTEROL 1.25 MG/0.5 ML CONCENTRATE NEB INH PRN ×3 (00:25→20:27)
[2018-11-24] MEDS: ACETAMINOPHEN TAB 650MG DOSE (2X325MG) PO PRN (04:12)
[2018-11-24 06:00] VITALS: BP 120/51
[2018-11-24] MEDS: HumaLOG INSULIN (NovoLOG) PER UNIT SC SCH ×5 (07:26→21:00)
[2018-11-24] MEDS: TIOTROPIUM INHALER/CAPSULE (SPIRIVA) INH SCH (08:30)
[2018-11-24] MEDS: SYMBICORT 160/4.5MCG INHALER 6GM INH SCH ×2 (08:31→20:26)
[2018-11-24] MEDS: HEPARIN SOD (PORCINE) 5000 UNITS/ML VIAL SQ SCH ×2 (09:00→21:00)
[2018-11-24] MEDS: ATORVASTATIN 10 MG TAB PO SCH (09:00)
[2018-11-24] MEDS: LEVEMIR (INSULIN DETEMIR) 1 UNITS/0.01ML SC SCH (09:00)
[2018-11-24] MEDS: PANTOPRAZOLE 40MG TAB (PROTONIX) PO SCH (09:00)
[2018-11-24] MEDS: TORSEMIDE 20 MG TAB PO SCH (09:32)
[2018-11-24] MEDS: ASPIRIN 81 MG ENTERIC TAB PO SCH (09:32)
[2018-11-24] MEDS: predniSONE 5 MG TAB PO SCH (09:32)
[2018-11-25 06:00] VITALS: BP 168/72
[2018-11-25] MEDS: HumaLOG INSULIN (NovoLOG) PER UNIT SC SCH ×5 (07:30→21:26)
[2018-11-25] MEDS: LEVEMIR (INSULIN DETEMIR) 1 UNITS/0.01ML SC SCH (08:22)
[2018-11-25] MEDS: PANTOPRAZOLE 40MG TAB (PROTONIX) PO SCH (08:22)
[2018-11-25] MEDS: HEPARIN SOD (PORCINE) 5000 UNITS/ML VIAL SQ SCH ×2 (08:23→21:00)
[2018-11-25] MEDS: TIOTROPIUM INHALER/CAPSULE (SPIRIVA) INH SCH (08:31)
[2018-11-25] MEDS: SYMBICORT 160/4.5MCG INHALER 6GM INH SCH ×2 (08:31→21:00)
[2018-11-25] MEDS: ASPIRIN 81 MG ENTERIC TAB PO SCH (09:00)
[2018-11-25] MEDS: ATORVASTATIN 10 MG TAB PO SCH (09:00)
[2018-11-25] MEDS: predniSONE 5 MG TAB PO SCH (10:09)
[2018-11-25] MEDS: TORSEMIDE 20 MG TAB PO SCH (10:10)
[2018-11-26 06:00] VITALS: BP 136/63
[2018-11-26] MEDS: LEVALBUTEROL 1.25 MG/0.5 ML CONCENTRATE NEB INH PRN (07:42)
[2018-11-26] MEDS: SYMBICORT 160/4.5MCG INHALER 6GM INH SCH ×2 (07:43→20:59)
[2018-11-26] MEDS: TIOTROPIUM INHALER/CAPSULE (SPIRIVA) INH SCH (07:43)
[2018-11-26] MEDS: HEPARIN SOD (PORCINE) 5000 UNITS/ML VIAL SQ SCH ×2 (09:00→20:27)
[2018-11-26] MEDS: PANTOPRAZOLE 40MG TAB (PROTONIX) PO SCH (09:00)
[2018-11-26] MEDS: ATORVASTATIN 10 MG TAB PO SCH (09:00)
[2018-11-26] MEDS: LEVEMIR (INSULIN DETEMIR) 1 UNITS/0.01ML SC SCH (09:00)
[2018-11-26] MEDS: ASPIRIN 81 MG ENTERIC TAB PO SCH (09:35)
[2018-11-26] MEDS: predniSONE 5 MG TAB PO SCH (09:35)
[2018-11-26] MEDS: TORSEMIDE 20 MG TAB PO SCH (09:35)
[2018-11-26] MEDS: BACTRIM 160MG/800MG DS TAB PO SCH (09:35)
[2018-11-26] MEDS: HumaLOG INSULIN (NovoLOG) PER UNIT SC SCH ×3 (11:04→21:00)
[2018-11-27 06:00] VITALS: BP 133/70
[2018-11-27] MEDS: HumaLOG INSULIN (NovoLOG) PER UNIT SC SCH ×4 (07:30→20:26)
[2018-11-27] MEDS: TIOTROPIUM INHALER/CAPSULE (SPIRIVA) INH SCH (07:40)
[2018-11-27] MEDS: SYMBICORT 160/4.5MCG INHALER 6GM INH SCH ×2 (07:40→19:40)
[2018-11-27] MEDS: LEVALBUTEROL 1.25 MG/0.5 ML CONCENTRATE NEB INH PRN ×2 (07:41→16:48)
[2018-11-27] MEDS: TORSEMIDE 20 MG TAB PO SCH ×2 (09:00→09:16)
[2018-11-27] MEDS: LEVEMIR (INSULIN DETEMIR) 1 UNITS/0.01ML SC SCH (09:00)
[2018-11-27] MEDS: ATORVASTATIN 10 MG TAB PO SCH (09:00)
[2018-11-27] MEDS: HEPARIN SOD (PORCINE) 5000 UNITS/ML VIAL SQ SCH ×2 (09:00→20:27)
[2018-11-27] MEDS: PANTOPRAZOLE 40MG TAB (PROTONIX) PO SCH (09:00)
[2018-11-27] MEDS: predniSONE 5 MG TAB PO SCH (09:16)
[2018-11-27] MEDS: ASPIRIN 81 MG ENTERIC TAB PO SCH (09:16)
[2018-11-28] MEDS: LEVALBUTEROL 1.25 MG/0.5 ML CONCENTRATE NEB INH PRN ×3 (05:36→13:29)
[2018-11-28 06:00] VITALS: BP 133/84
[2018-11-28] MEDS: TIOTROPIUM INHALER/CAPSULE (SPIRIVA) INH SCH (07:28)
[2018-11-28] MEDS: HumaLOG INSULIN (NovoLOG) PER UNIT SC SCH ×4 (07:30→20:34)
[2018-11-28] MEDS: SYMBICORT 160/4.5MCG INHALER 6GM INH SCH ×2 (07:33→21:52)
[2018-11-28] MEDS: PANTOPRAZOLE 40MG TAB (PROTONIX) PO SCH (09:00)
[2018-11-28] MEDS: LEVEMIR (INSULIN DETEMIR) 1 UNITS/0.01ML SC SCH (09:00)
[2018-11-28] MEDS: HEPARIN SOD (PORCINE) 5000 UNITS/ML VIAL SQ SCH ×2 (09:00→20:42)
[2018-11-28] MEDS: ATORVASTATIN 10 MG TAB PO SCH (09:00)
[2018-11-28] MEDS: predniSONE 5 MG TAB PO SCH (10:36)
[2018-11-28] MEDS: ASPIRIN 81 MG ENTERIC TAB PO SCH (10:36)
[2018-11-28] MEDS: TORSEMIDE 20 MG TAB PO SCH (10:37)
[2018-11-28] MEDS: BACTRIM 160MG/800MG DS TAB PO SCH (10:38)
[2018-11-29] MEDS: LEVALBUTEROL 1.25 MG/0.5 ML CONCENTRATE NEB INH PRN ×3 (05:58→21:42)
[2018-11-29 06:00] VITALS: BP 146/63
[2018-11-29] MEDS: TIOTROPIUM INHALER/CAPSULE (SPIRIVA) INH SCH (07:27)
[2018-11-29] MEDS: SYMBICORT 160/4.5MCG INHALER 6GM INH SCH ×2 (07:27→21:42)
[2018-11-29] MEDS: HumaLOG INSULIN (NovoLOG) PER UNIT SC SCH ×4 (07:30→21:34)
[2018-11-29] MEDS: LEVEMIR (INSULIN DETEMIR) 1 UNITS/0.01ML SC SCH (09:00)
[2018-11-29] MEDS: PANTOPRAZOLE 40MG TAB (PROTONIX) PO SCH (09:00)
[2018-11-29] MEDS: HEPARIN SOD (PORCINE) 5000 UNITS/ML VIAL SQ SCH ×2 (09:00→21:34)
[2018-11-29] MEDS: ATORVASTATIN 10 MG TAB PO SCH (09:00)
[2018-11-29] MEDS: predniSONE 5 MG TAB PO SCH (11:25)
[2018-11-29] MEDS: ASPIRIN 81 MG ENTERIC TAB PO SCH (11:25)
[2018-11-29] MEDS: TORSEMIDE 20 MG TAB PO SCH (11:26)
[2018-11-30 06:00] VITALS: BP 134/59
[2018-11-30] MEDS: SYMBICORT 160/4.5MCG INHALER 6GM INH SCH ×2 (07:14→20:03)
[2018-11-30] MEDS: LEVALBUTEROL 1.25 MG/0.5 ML CONCENTRATE NEB INH PRN ×5 (07:14→23:43)
[2018-11-30] MEDS: TIOTROPIUM INHALER/CAPSULE (SPIRIVA) INH SCH (07:14)
[2018-11-30] MEDS: HumaLOG INSULIN (NovoLOG) PER UNIT SC SCH ×4 (07:30→20:17)
[2018-11-30] MEDS: ATORVASTATIN 10 MG TAB PO SCH (09:00)
[2018-11-30] MEDS: PANTOPRAZOLE 40MG TAB (PROTONIX) PO SCH (09:00)
[2018-11-30] MEDS: HEPARIN SOD (PORCINE) 5000 UNITS/ML VIAL SQ SCH ×2 (09:00→20:18)
[2018-11-30] MEDS: LEVEMIR (INSULIN DETEMIR) 1 UNITS/0.01ML SC SCH (09:00)
[2018-11-30] MEDS: TORSEMIDE 20 MG TAB PO SCH (10:37)
[2018-11-30] MEDS: BACTRIM 160MG/800MG DS TAB PO SCH (10:38)
[2018-11-30] MEDS: ASPIRIN 81 MG ENTERIC TAB PO SCH (10:38)
[2018-11-30] MEDS: predniSONE 5 MG TAB PO SCH (10:38)
[2018-12-01 06:00] VITALS: BP 138/60
[2018-12-01] MEDS: LEVALBUTEROL 1.25 MG/0.5 ML CONCENTRATE NEB INH PRN (06:26)
[2018-12-01] MEDS: SYMBICORT 160/4.5MCG INHALER 6GM INH SCH ×2 (08:05→20:44)
[2018-12-01] MEDS: TIOTROPIUM INHALER/CAPSULE (SPIRIVA) INH SCH (08:05)
[2018-12-01] MEDS: HumaLOG INSULIN (NovoLOG) PER UNIT SC SCH ×4 (08:09→20:39)
[2018-12-01] MEDS: HEPARIN SOD (PORCINE) 5000 UNITS/ML VIAL SQ SCH ×2 (09:00→20:39)
[2018-12-01] MEDS: predniSONE 5 MG TAB PO SCH (09:27)
[2018-12-01] MEDS: ATORVASTATIN 10 MG TAB PO SCH (09:27)
[2018-12-01] MEDS: PANTOPRAZOLE 40MG TAB (PROTONIX) PO SCH (09:27)
[2018-12-01] MEDS: TORSEMIDE 20 MG TAB PO SCH (09:27)
[2018-12-01] MEDS: ASPIRIN 81 MG ENTERIC TAB PO SCH (09:27)
[2018-12-01] MEDS: LEVEMIR (INSULIN DETEMIR) 1 UNITS/0.01ML SC SCH (09:28)
[2018-12-02 06:00] VITALS: BP 129/63
[2018-12-02] MEDS: LEVALBUTEROL 1.25 MG/0.5 ML CONCENTRATE NEB INH PRN ×2 (06:22→20:18)
[2018-12-02] MEDS: HumaLOG INSULIN (NovoLOG) PER UNIT SC SCH ×4 (07:30→21:00)
[2018-12-02] MEDS: TIOTROPIUM INHALER/CAPSULE (SPIRIVA) INH SCH (08:22)
[2018-12-02] MEDS: SYMBICORT 160/4.5MCG INHALER 6GM INH SCH ×2 (08:23→20:18)
[2018-12-02] MEDS: HEPARIN SOD (PORCINE) 5000 UNITS/ML VIAL SQ SCH ×2 (09:00→21:00)
[2018-12-02] MEDS: LEVEMIR (INSULIN DETEMIR) 1 UNITS/0.01ML SC SCH (09:00)
[2018-12-02] MEDS: PANTOPRAZOLE 40MG TAB (PROTONIX) PO SCH (09:00)
[2018-12-02] MEDS: ATORVASTATIN 10 MG TAB PO SCH (09:00)
[2018-12-02] MEDS: predniSONE 5 MG TAB PO SCH (10:48)
[2018-12-02] MEDS: ASPIRIN 81 MG ENTERIC TAB PO SCH (10:48)
[2018-12-02] MEDS: TORSEMIDE 20 MG TAB PO SCH (10:51)
--- NOTE | 2018-12-02 12:21 | IPNPDOC ---
Text Note Date of Service The patient was seen on 12/02/18. NOTE Subjective: Feels well. Denies SOB. No acute changes overnight. Objective: Vitals: (see below) General: No acute distress, laying comfortably in bed. HEENT: Moist mucous membranes. Neck: No JVD or lymphadenopathy Cardiac: RRR, No murmurs Pulm: Fine crackles at the bases b/l. No rhonchi. No use of accessory muscles. Abd: NT/ND + BS Ext: Trace to 1+ Pitting edema BLE. No cyanosis Labs (see below) Images: Assessment/Plan 1. s/p Acute COPD exacerbation- Cont nebs. Cont Mucinex. On Spiriva. 2. s/p Decompensated diastolic heart failure - on Torsemide, stable. 3. s/p Sepsis HCAP 2/2 - s/p cefdinir 4. s/p Acute on chronic anemia - s/p 1U PRBC. Anemia panel. No active bleeding at this time. 5. Subclinical hypothyroidism- Synthroid 6. Normocytic anemia stable no need for treatment at this time. 7. History of TIA. On aspirin and statin 8. History of cor pulmonale 9. DM - cont current insulin regimen. 10. History of nephrectomy. Renal function stable. 11. History of Anxiety 12. History of malaria. 13. H/o Dementia 14. History of CAD with stenting. On aspirin, statin 15. History of Pulmonary hypertension. DVT prophylaxis: hep sq although pt is refusing it. Prognosis guarded. Pt continues to refuse many of her medications, and she has been counseled on compliance. VS,Fishbone, I+O VS, Fishbone, I+O Vital Signs Date Time Temp Pulse Resp B/P (MAP) Pulse Ox O2 Delivery O2 Flow Rate FiO2 12/02/18 06:00 98.0 86 18 129/63 (85) 96 12/01/18 20:30 3.0 12/01/18 06:16 Nasal Cannula I&O- Last 24 Hours up to 6 AM 12/02/18 06:00 Intake Total 1815 ml Output Total 0 ml Balance 1815 ml JAHAIRA CABALLERO MD Dec 02, 2018 12:21
[2018-12-03 06:00] VITALS: BP 124/69
[2018-12-03 06:23] LABS: HEMATOCRIT 28.7 % (36.0-47.0); HEMOGLOBIN 8.8 g/dl (12.0-15.5); MEAN CORPUSCULAR HEMOGLOBIN 26.7 pg (27.0-33.0); MEAN CORPUSCULAR HGB CONC 30.7 g/dl (32.0-36.5); MEAN CORPUSCULAR VOLUME 87.2 fl (80.0-96.0); PLATELET COUNT, AUTOMATED 454 10^3/uL (150-450); RED BLOOD COUNT 3.29 10^6/uL (4.00-5.40); WHITE BLOOD COUNT 9.7 10^3/uL (4.0-10.0)
[2018-12-03 06:44] LABS: CREATININE FOR GFR 0.98 MG/DL (0.55-1.30); GLOMERULAR FILTRATION RATE 57.4 (>32); POTASSIUM SERUM 4.1 MEQ/L (3.5-5.1)
[2018-12-03] MEDS: HumaLOG INSULIN (NovoLOG) PER UNIT SC SCH ×4 (07:30→21:52)
[2018-12-03] MEDS: SYMBICORT 160/4.5MCG INHALER 6GM INH SCH ×2 (08:14→21:11)
[2018-12-03] MEDS: TIOTROPIUM INHALER/CAPSULE (SPIRIVA) INH SCH (08:14)
[2018-12-03] MEDS: PANTOPRAZOLE 40MG TAB (PROTONIX) PO SCH (09:00)
[2018-12-03] MEDS: BACTRIM 160MG/800MG DS TAB PO SCH (09:00)
[2018-12-03] MEDS: ATORVASTATIN 10 MG TAB PO SCH (09:00)
[2018-12-03] MEDS: LEVEMIR (INSULIN DETEMIR) 1 UNITS/0.01ML SC SCH (09:00)
[2018-12-03] MEDS: HEPARIN SOD (PORCINE) 5000 UNITS/ML VIAL SQ SCH ×2 (09:00→21:52)
[2018-12-03] MEDS: ASPIRIN 81 MG ENTERIC TAB PO SCH (09:41)
[2018-12-03] MEDS: predniSONE 5 MG TAB PO SCH (09:41)
[2018-12-03] MEDS: TORSEMIDE 20 MG TAB PO SCH (09:44)
[2018-12-03] MEDS: LEVALBUTEROL 1.25 MG/0.5 ML CONCENTRATE NEB INH PRN ×2 (17:47→21:11)
[2018-12-03] MEDS: METOCLOPRAMIDE 5 MG TAB PO PRN (23:48)
[2018-12-04 03:30] VITALS: BP 149/67
[2018-12-04] MEDS: MORPHINE 10MG/0.5ML ORAL CONCENTRATE SOLUTION U/D SL PRN ×4 (04:22→20:49)
[2018-12-04 06:00] VITALS: BP 124/63
[2018-12-04] MEDS: HumaLOG INSULIN (NovoLOG) PER UNIT SC SCH ×3 (07:30→21:00)
[2018-12-04] MEDS: HEPARIN SOD (PORCINE) 5000 UNITS/ML VIAL SQ SCH ×2 (08:39→21:00)
[2018-12-04] MEDS: PANTOPRAZOLE 40MG TAB (PROTONIX) PO SCH (09:00)
[2018-12-04] MEDS: TORSEMIDE 20 MG TAB PO SCH (09:00)
[2018-12-04] MEDS: ATORVASTATIN 10 MG TAB PO SCH (09:00)
[2018-12-04] MEDS: LEVEMIR (INSULIN DETEMIR) 1 UNITS/0.01ML SC SCH (09:00)
[2018-12-04] MEDS: TIOTROPIUM INHALER/CAPSULE (SPIRIVA) INH SCH (09:11)
[2018-12-04] MEDS: SYMBICORT 160/4.5MCG INHALER 6GM INH SCH ×2 (09:12→21:26)
[2018-12-04] MEDS: ASPIRIN 81 MG ENTERIC TAB PO SCH (10:02)
[2018-12-04] MEDS: predniSONE 5 MG TAB PO SCH (10:02)
[2018-12-04] MEDS: METOCLOPRAMIDE 5 MG TAB PO PRN (10:21)
[2018-12-05 06:00] VITALS: BP 125/59
[2018-12-05] MEDS: HumaLOG INSULIN (NovoLOG) PER UNIT SC SCH ×4 (07:30→21:26)
[2018-12-05] MEDS: TIOTROPIUM INHALER/CAPSULE (SPIRIVA) INH SCH (08:12)
[2018-12-05] MEDS: SYMBICORT 160/4.5MCG INHALER 6GM INH SCH ×2 (08:13→19:43)
[2018-12-05] MEDS: HEPARIN SOD (PORCINE) 5000 UNITS/ML VIAL SQ SCH ×2 (09:00→21:26)
[2018-12-05] MEDS: LEVEMIR (INSULIN DETEMIR) 1 UNITS/0.01ML SC SCH (09:00)
[2018-12-05] MEDS: PANTOPRAZOLE 40MG TAB (PROTONIX) PO SCH (09:00)
[2018-12-05] MEDS: BACTRIM 160MG/800MG DS TAB PO SCH (11:22)
[2018-12-05] MEDS: predniSONE 5 MG TAB PO SCH (11:22)
[2018-12-05] MEDS: TORSEMIDE 20 MG TAB PO SCH (11:22)
[2018-12-05] MEDS: ASPIRIN 81 MG ENTERIC TAB PO SCH (11:22)
[2018-12-05] MEDS: ATORVASTATIN 10 MG TAB PO SCH (11:22)
[2018-12-05] MEDS: LEVALBUTEROL 1.25 MG/0.5 ML CONCENTRATE NEB INH PRN ×2 (14:34→23:50)
[2018-12-06 06:00] VITALS: BP 121/61
[2018-12-06] MEDS: HumaLOG INSULIN (NovoLOG) PER UNIT SC SCH ×4 (07:30→19:54)
[2018-12-06 07:42] LABS: HEMATOCRIT 24.7 % (36.0-47.0); HEMOGLOBIN 7.9 g/dl (12.0-15.5); MEAN CORPUSCULAR HEMOGLOBIN 26.6 pg (27.0-33.0); MEAN CORPUSCULAR VOLUME 83.2 fl (80.0-96.0); PLATELET COUNT, AUTOMATED 329 10^3/uL (150-450); RED BLOOD COUNT 2.97 10^6/uL (4.00-5.40); WHITE BLOOD COUNT 11.6 10^3/uL (4.0-10.0)
[2018-12-06] MEDS: TIOTROPIUM INHALER/CAPSULE (SPIRIVA) INH SCH (07:56)
[2018-12-06] MEDS: SYMBICORT 160/4.5MCG INHALER 6GM INH SCH ×2 (07:56→21:28)
[2018-12-06 08:54] LABS: GLOMERULAR FILTRATION RATE 56.1 (>32); MAGNESIUM LEVEL 1.9 MG/DL (1.8-2.4); POTASSIUM SERUM 2.6 MEQ/L (3.5-5.1)
[2018-12-06] MEDS: SENOKOT S TAB PO SCH ×2 (09:00→19:48)
[2018-12-06] MEDS: PANTOPRAZOLE 40MG TAB (PROTONIX) PO SCH (09:00)
[2018-12-06] MEDS: ATORVASTATIN 10 MG TAB PO SCH (09:00)
[2018-12-06] MEDS: HEPARIN SOD (PORCINE) 5000 UNITS/ML VIAL SQ SCH ×2 (09:00→19:48)
[2018-12-06] MEDS: LEVEMIR (INSULIN DETEMIR) 1 UNITS/0.01ML SC SCH (09:00)
[2018-12-06 09:32] LABS: HEMATOCRIT 25.8 % (36.0-47.0); HEMOGLOBIN 8.1 g/dl (12.0-15.5); MEAN CORPUSCULAR HEMOGLOBIN 26.3 pg (27.0-33.0); MEAN CORPUSCULAR HGB CONC 31.4 g/dl (32.0-36.5); MEAN CORPUSCULAR VOLUME 83.8 fl (80.0-96.0); PLATELET COUNT, AUTOMATED 344 10^3/uL (150-450); RED BLOOD COUNT 3.08 10^6/uL (4.00-5.40); WHITE BLOOD COUNT 11.7 10^3/uL (4.0-10.0)
[2018-12-06 10:02] LABS: CALCIUM LEVEL 8.1 MG/DL (8.8-10.2); CREATININE FOR GFR 1.09 MG/DL (0.55-1.30); GLOMERULAR FILTRATION RATE 50.8 (>32); POTASSIUM SERUM 2.8 MEQ/L (3.5-5.1)
[2018-12-06] MEDS: predniSONE 5 MG TAB PO SCH (10:34)
[2018-12-06] MEDS: ASCORBIC ACID 500 MG TAB PO SCH ×2 (10:34→19:48)
[2018-12-06] MEDS: ASPIRIN 81 MG ENTERIC TAB PO SCH (10:34)
[2018-12-06] MEDS: FERROUS SULFATE 325MG TAB PO SCH ×2 (10:35→19:47)
[2018-12-06] MEDS: TORSEMIDE 20 MG TAB PO SCH (10:35)
[2018-12-06] MEDS: POTASSIUM CHLORIDE 10 MEQ SR TABLET PO SCH ×2 (10:37→12:55)
[2018-12-06 10:45] LABS: HEMATOCRIT 25.8 % (36.0-47.0); HEMOGLOBIN 8.2 g/dl (12.0-15.5)
[2018-12-06] MEDS: LEVALBUTEROL 1.25 MG/0.5 ML CONCENTRATE NEB INH PRN ×2 (17:41→21:28)
[2018-12-06 18:29] LABS: CALCIUM LEVEL 8.2 MG/DL (8.8-10.2); CREATININE FOR GFR 0.96 MG/DL (0.55-1.30); GLOMERULAR FILTRATION RATE 58.8 (>32); POTASSIUM SERUM 3.7 MEQ/L (3.5-5.1)
[2018-12-07 06:00] VITALS: BP 119/58
[2018-12-07 06:59] LABS: BLOOD UREA NITROGEN 31 MG/DL (7-18); CALCIUM LEVEL 8.4 MG/DL (8.8-10.2); CARBON DIOXIDE LEVEL 31 MEQ/L (21-32); CHLORIDE LEVEL 99 MEQ/L (98-107); CREATININE FOR GFR 0.91 MG/DL (0.55-1.30); GLOMERULAR FILTRATION RATE > 60.0 (>32); GLUCOSE, FASTING 95 MG/DL (70-100); POTASSIUM SERUM 3.6 MEQ/L (3.5-5.1); SODIUM LEVEL 137 MEQ/L (136-145)
[2018-12-07] MEDS ORDERED: POTASSIUM CHLORIDE 10 MEQ SR TABLET PO ONE (07:15)
[2018-12-07] MEDS: HumaLOG INSULIN (NovoLOG) PER UNIT SC SCH ×4 (07:30→22:16)
[2018-12-07] MEDS: TIOTROPIUM INHALER/CAPSULE (SPIRIVA) INH SCH (08:03)
[2018-12-07] MEDS: LEVALBUTEROL 1.25 MG/0.5 ML CONCENTRATE NEB INH PRN ×4 (08:03→19:30)
[2018-12-07] MEDS: SYMBICORT 160/4.5MCG INHALER 6GM INH SCH ×2 (08:03→19:28)
[2018-12-07] MEDS: SENOKOT S TAB PO SCH ×2 (09:00→22:18)
[2018-12-07] MEDS: LEVEMIR (INSULIN DETEMIR) 1 UNITS/0.01ML SC SCH (09:00)
[2018-12-07] MEDS: PANTOPRAZOLE 40MG TAB (PROTONIX) PO SCH (09:00)
[2018-12-07] MEDS: ASCORBIC ACID 500 MG TAB PO SCH ×2 (09:00→22:30)
[2018-12-07] MEDS: ATORVASTATIN 10 MG TAB PO SCH (09:00)
[2018-12-07] MEDS: HEPARIN SOD (PORCINE) 5000 UNITS/ML VIAL SQ SCH ×2 (09:00→22:16)
--- NOTE | 2018-12-07 10:36 | IPNPDOC ---
Date Seen The patient was seen on 12/07/18. Progress Note Subjective: Patient was seen and examined this morning. She states that she is doing well. She has no complaints. She is having bowel movements tolerating her diet no nausea vomiting diarrhea. She continues to refuse some of her medications for she feels like it. 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 She has not complaints today. Nursing did not report changes. Potassium levels have been stable lucency been supplemented with potassium chloride. Objective: Vitals: (see below) General: No acute distress, sitting up comfortably at the side of the flap with right leg propped on a stool HEENT: Moist mucous membranes. Portable impression, No JVD or lymphadenopathy Cardiac: Regular rate and rhythm no audible murmurs Pulm: Bibasilar crackles with no use of accessory muscles. Does not appear short of breath with conversation Abd: Positive bowel sounds in 4 quadrants nondistended non-tender abdomen Ext: Trace to 1+ Pitting edema bilaterally in lower extremities. Labs (see below) ASSESSMENT AND PLAN: This is a 83-year-old female with chronic shortness of breath. SOB s/p Acute COPD exacerbation s/p Decompensated diastolic heart failure -c/w nebulizer, Mucinex, Spiriva, Symbicort, torsemide, prednisone, -Stable continue to monitor H/o HCAP - Resolved s/p cefdinir s/p Acute on chronic Normocytic anemia -s/p 1U PRBC in -No active bleeding at this time. -Patient refused to be transfused c/w iron supplement -Will continue to monitor Diabetes mellitus -consistent carb diet -c/w Levemir / SSI w/hypoglycemic protocol Hx of LLE DVT: -Not on any anticoagulation, -no current issues with calf swelling or tenderness. Hx of TIA -c/w ASA -prescribed statins but refuses to take him History of Pulmonary hypertension due to cor pulmonale -Chronic and stable Hx of Nephrectomy: -Chronic and stable Anxiety -c/w Alprazolam CAD s/p stent: -c/w ASA -refuses statin -not on any beta yaw likely related to her pulmonary disease History of malaria H/o Dementia Low back pain -as needed Roxanol Allergies -c/w Zyrtec PRN Insomnia -c/w Benadryl PRN Gastroesophageal reflux disease -c/w Protonix DVT prophylaxis -SQ Heparin -refuses Disposition: PFS / Case management trying to contact family for further care such as conservative treatment regimen versus SNF-based financial plan for SNF bed. Pt continues to refuse many of her medications, and she has been counseled on compliance. For now she remains SNF status. VS, I&O, 24H, Fishbone Vital Signs/I&O Vital Signs Date Time Temp Pulse Resp B/P (MAP) Pulse Ox O2 Delivery O2 Flow Rate FiO2 12/07/18 06:00 98.3 84 20 119/58 (78) 94 3.0 12/04/18 04:52 Nasal Cannula I&O- Last 24 Hours up to 6 AM 12/07/18 06:00 Intake Total 50 ml Output Total 0 ml Balance 50 ml Laboratory Data 24H LABS Laboratory Tests 2 12/06/18 11:41: Bedside Glucose (Misc Panel) 160H 12/06/18 16:36: Bedside Glucose (Misc Panel) 141H 12/06/18 17:46: Anion Gap 8, Glomerular Filtration Rate 58.8, Blood Urea Nitrogen 29H, Creatinine 0.96, Sodium Level 134L, Potassium Level 3.7#, Chloride Level 96L, Carbon Dioxide Level 30, Calcium Level 8.2L 12/06/18 19:54: Bedside Glucose (Misc Panel) 190H 12/07/18 06:05: Anion Gap 7L, Glomerular Filtration Rate > 60.0, Blood Urea Nitrogen 31H, Creatinine 0.91, Sodium Level 137, Potassium Level 3.6, Chloride Level 99, Carbon Dioxide Level 31, Calcium Level 8.4L, Magnesium Level 2.0 12/07/18 07:34: Bedside Glucose (Misc Panel) 96 CBC/BMP Laboratory Tests 12/06/18 10:30 12/06/18 17:46 Calcium Level 8.2 L 12/07/18 06:05 Calcium Level 8.4 L GME ATTESTATION GME ATTESTATION My faculty preceptor for this patient encounter was physically present during the encounter and was fully available. All aspects of the patient interview, examination, medical decision making process, and medical care plan development were reviewed and approved by the faculty preceptor. The faculty preceptor is aware and concurs with the plan as stated in the body of this note and will attest to such by his/her cosignature. ATTENDING NOTE I have both independently examined this patient as well as reviewed the note I have discussed in detail the findings and plan of treatment as documented in the note. I will continue to follow the patient and offer further guidance to the patients care as necessary during this hospital stay. ARSLAN Ross MD, DO Dec 07, 2018 10:36 RADHA ALVARES MD Dec 08, 2018 11:08
[2018-12-07] MEDS: BACTRIM 160MG/800MG DS TAB PO SCH (11:43)
[2018-12-07] MEDS: FERROUS SULFATE 325MG TAB PO SCH ×2 (11:44→22:30)
[2018-12-07] MEDS: ASPIRIN 81 MG ENTERIC TAB PO SCH (11:44)
[2018-12-07] MEDS: predniSONE 5 MG TAB PO SCH (11:44)
[2018-12-07] MEDS: TORSEMIDE 20 MG TAB PO SCH (11:44)
[2018-12-07] MEDS: POTASSIUM CHLORIDE 10 MEQ SR TABLET PO SCH (11:45)
[2018-12-08] MEDS: LEVALBUTEROL 1.25 MG/0.5 ML CONCENTRATE NEB INH PRN ×4 (00:31→23:00)
[2018-12-08 06:00] VITALS: BP 123/58
[2018-12-08] MEDS: SYMBICORT 160/4.5MCG INHALER 6GM INH SCH ×2 (07:29→20:56)
[2018-12-08] MEDS: TIOTROPIUM INHALER/CAPSULE (SPIRIVA) INH SCH (07:29)
[2018-12-08] MEDS: HumaLOG INSULIN (NovoLOG) PER UNIT SC SCH ×4 (07:30→20:55)
[2018-12-08] MEDS: LEVEMIR (INSULIN DETEMIR) 1 UNITS/0.01ML SC SCH (08:12)
[2018-12-08] MEDS: PANTOPRAZOLE 40MG TAB (PROTONIX) PO SCH (08:13)
[2018-12-08] MEDS: ATORVASTATIN 10 MG TAB PO SCH (08:13)
[2018-12-08] MEDS: SENOKOT S TAB PO SCH ×2 (08:14→21:01)
[2018-12-08] MEDS: HEPARIN SOD (PORCINE) 5000 UNITS/ML VIAL SQ SCH ×2 (08:14→21:01)
[2018-12-08] MEDS: ASPIRIN 81 MG ENTERIC TAB PO SCH (08:37)
[2018-12-08] MEDS: TORSEMIDE 20 MG TAB PO SCH (08:37)
[2018-12-08] MEDS: predniSONE 5 MG TAB PO SCH (08:37)
[2018-12-08] MEDS: ASCORBIC ACID 500 MG TAB PO SCH ×2 (11:27→21:00)
[2018-12-08] MEDS: POTASSIUM CHLORIDE 10 MEQ SR TABLET PO SCH (11:27)
[2018-12-08] MEDS: FERROUS SULFATE 325MG TAB PO SCH ×2 (11:28→21:00)
[2018-12-09 06:00] VITALS: BP 130/67
[2018-12-09] MEDS: TIOTROPIUM INHALER/CAPSULE (SPIRIVA) INH SCH (07:26)
[2018-12-09] MEDS: SYMBICORT 160/4.5MCG INHALER 6GM INH SCH ×2 (07:27→21:20)
[2018-12-09] MEDS: HumaLOG INSULIN (NovoLOG) PER UNIT SC SCH ×4 (07:30→21:45)
[2018-12-09] MEDS: ASCORBIC ACID 500 MG TAB PO SCH ×2 (09:00→21:45)
[2018-12-09] MEDS: FERROUS SULFATE 325MG TAB PO SCH ×2 (09:00→21:45)
[2018-12-09] MEDS: ATORVASTATIN 10 MG TAB PO SCH (09:00)
[2018-12-09] MEDS: SENOKOT S TAB PO SCH ×2 (09:00→21:45)
[2018-12-09] MEDS: POTASSIUM CHLORIDE 10 MEQ SR TABLET PO SCH (09:00)
[2018-12-09] MEDS: HEPARIN SOD (PORCINE) 5000 UNITS/ML VIAL SQ SCH ×2 (09:00→21:45)
[2018-12-09] MEDS: PANTOPRAZOLE 40MG TAB (PROTONIX) PO SCH (09:00)
[2018-12-09] MEDS: LEVEMIR (INSULIN DETEMIR) 1 UNITS/0.01ML SC SCH (09:00)
[2018-12-09] MEDS: TORSEMIDE 20 MG TAB PO SCH ×2 (09:00→09:32)
[2018-12-09] MEDS: ASPIRIN 81 MG ENTERIC TAB PO SCH (09:31)
[2018-12-09] MEDS: predniSONE 5 MG TAB PO SCH (09:31)
[2018-12-09] MEDS: LEVALBUTEROL 1.25 MG/0.5 ML CONCENTRATE NEB INH PRN ×2 (11:51→21:20)
[2018-12-10 06:00] VITALS: BP 135/61
[2018-12-10] MEDS: HumaLOG INSULIN (NovoLOG) PER UNIT SC SCH ×4 (07:30→21:00)
[2018-12-10] MEDS: TIOTROPIUM INHALER/CAPSULE (SPIRIVA) INH SCH (07:47)
[2018-12-10] MEDS: SYMBICORT 160/4.5MCG INHALER 6GM INH SCH ×2 (07:47→20:11)
[2018-12-10] MEDS ORDERED: POTASSIUM CHLORIDE 10 MEQ SR TABLET PO ONE (08:00)
[2018-12-10] MEDS: TORSEMIDE 20 MG TAB PO SCH ×2 (09:00→09:33)
[2018-12-10] MEDS: BACTRIM 160MG/800MG DS TAB PO SCH ×2 (09:00→09:33)
[2018-12-10] MEDS: HEPARIN SOD (PORCINE) 5000 UNITS/ML VIAL SQ SCH ×2 (09:00→20:37)
[2018-12-10] MEDS: ASCORBIC ACID 500 MG TAB PO SCH ×3 (09:00→20:37)
[2018-12-10] MEDS: predniSONE 5 MG TAB PO SCH ×2 (09:00→09:33)
[2018-12-10] MEDS: SENOKOT S TAB PO SCH ×2 (09:00→20:37)
[2018-12-10] MEDS: PANTOPRAZOLE 40MG TAB (PROTONIX) PO SCH ×2 (09:00→09:33)
[2018-12-10] MEDS: ATORVASTATIN 10 MG TAB PO SCH ×2 (09:00→09:32)
[2018-12-10] MEDS: POTASSIUM CHLORIDE 10 MEQ SR TABLET PO SCH ×2 (09:00→09:33)
[2018-12-10] MEDS: ASPIRIN 81 MG ENTERIC TAB PO SCH ×2 (09:00→09:32)
[2018-12-10] MEDS: LEVEMIR (INSULIN DETEMIR) 1 UNITS/0.01ML SC SCH (09:00)
[2018-12-10] MEDS: FERROUS SULFATE 325MG TAB PO SCH ×3 (09:00→20:36)
[2018-12-10] MEDS: LEVALBUTEROL 1.25 MG/0.5 ML CONCENTRATE NEB INH PRN ×2 (11:25→18:41)
[2018-12-11 06:00] VITALS: BP 148/65
[2018-12-11] MEDS: HumaLOG INSULIN (NovoLOG) PER UNIT SC SCH ×4 (06:38→21:00)
[2018-12-11] MEDS: TIOTROPIUM INHALER/CAPSULE (SPIRIVA) INH SCH (07:50)
[2018-12-11] MEDS: SYMBICORT 160/4.5MCG INHALER 6GM INH SCH ×2 (07:50→20:08)
[2018-12-11] MEDS: predniSONE 5 MG TAB PO SCH (08:01)
[2018-12-11] MEDS: POTASSIUM CHLORIDE 10 MEQ SR TABLET PO SCH (08:01)
[2018-12-11] MEDS: ASPIRIN 81 MG ENTERIC TAB PO SCH (08:01)
[2018-12-11] MEDS: FERROUS SULFATE 325MG TAB PO SCH ×2 (08:01→21:00)
[2018-12-11] MEDS: ATORVASTATIN 10 MG TAB PO SCH (08:01)
[2018-12-11] MEDS: TORSEMIDE 20 MG TAB PO SCH (08:01)
[2018-12-11] MEDS: LEVEMIR (INSULIN DETEMIR) 1 UNITS/0.01ML SC SCH (08:02)
[2018-12-11] MEDS: SENOKOT S TAB PO SCH ×2 (08:02→21:00)
[2018-12-11] MEDS: PANTOPRAZOLE 40MG TAB (PROTONIX) PO SCH (08:02)
[2018-12-11] MEDS: ASCORBIC ACID 500 MG TAB PO SCH ×2 (08:02→21:00)
[2018-12-11] MEDS: HEPARIN SOD (PORCINE) 5000 UNITS/ML VIAL SQ SCH ×2 (08:03→21:00)
[2018-12-12 06:00] VITALS: BP 132/62
[2018-12-12] MEDS: TIOTROPIUM INHALER/CAPSULE (SPIRIVA) INH SCH (07:25)
[2018-12-12] MEDS: SYMBICORT 160/4.5MCG INHALER 6GM INH SCH ×2 (07:26→23:07)
[2018-12-12] MEDS: HumaLOG INSULIN (NovoLOG) PER UNIT SC SCH ×4 (07:30→21:00)
[2018-12-12] MEDS: HEPARIN SOD (PORCINE) 5000 UNITS/ML VIAL SQ SCH ×2 (09:00→21:00)
[2018-12-12] MEDS: POTASSIUM CHLORIDE 10 MEQ SR TABLET PO SCH (09:00)
[2018-12-12] MEDS: LEVEMIR (INSULIN DETEMIR) 1 UNITS/0.01ML SC SCH (09:00)
[2018-12-12] MEDS: TORSEMIDE 20 MG TAB PO SCH (09:00)
[2018-12-12] MEDS: SENOKOT S TAB PO SCH ×2 (09:00→21:00)
[2018-12-12] MEDS: PANTOPRAZOLE 40MG TAB (PROTONIX) PO SCH (09:00)
[2018-12-12] MEDS: ATORVASTATIN 10 MG TAB PO SCH (09:00)
[2018-12-12] MEDS: ASCORBIC ACID 500 MG TAB PO SCH ×2 (09:00→21:00)
[2018-12-12] MEDS: ASPIRIN 81 MG ENTERIC TAB PO SCH (11:00)
[2018-12-12] MEDS: BACTRIM 160MG/800MG DS TAB PO SCH (11:00)
[2018-12-12] MEDS: predniSONE 5 MG TAB PO SCH (11:00)
[2018-12-12] MEDS: FERROUS SULFATE 325MG TAB PO SCH ×2 (11:00→21:00)
[2018-12-13 06:00] VITALS: BP 128/72
[2018-12-13] MEDS: HumaLOG INSULIN (NovoLOG) PER UNIT SC SCH ×4 (07:30→21:00)
[2018-12-13] MEDS: TIOTROPIUM INHALER/CAPSULE (SPIRIVA) INH SCH (07:56)
[2018-12-13] MEDS: SYMBICORT 160/4.5MCG INHALER 6GM INH SCH ×2 (07:56→19:44)
[2018-12-13] MEDS: SENOKOT S TAB PO SCH ×2 (08:06→21:00)
[2018-12-13] MEDS: HEPARIN SOD (PORCINE) 5000 UNITS/ML VIAL SQ SCH ×2 (08:08→21:00)
[2018-12-13] MEDS: LEVEMIR (INSULIN DETEMIR) 1 UNITS/0.01ML SC SCH (08:08)
[2018-12-13] MEDS: ATORVASTATIN 10 MG TAB PO SCH (09:00)
[2018-12-13] MEDS: ASCORBIC ACID 500 MG TAB PO SCH ×2 (09:00→21:00)
[2018-12-13] MEDS: PANTOPRAZOLE 40MG TAB (PROTONIX) PO SCH (09:00)
[2018-12-13] MEDS: POTASSIUM CHLORIDE 10 MEQ SR TABLET PO SCH (09:00)
[2018-12-13] MEDS: FERROUS SULFATE 325MG TAB PO SCH ×2 (09:00→21:00)
[2018-12-13] MEDS: TORSEMIDE 20 MG TAB PO SCH (09:00)
[2018-12-13] MEDS: predniSONE 5 MG TAB PO SCH (11:22)
[2018-12-13] MEDS: ASPIRIN 81 MG ENTERIC TAB PO SCH (11:22)
[2018-12-13] MEDS: LEVALBUTEROL 1.25 MG/0.5 ML CONCENTRATE NEB INH PRN (19:44)
[2018-12-14] MEDS: LEVALBUTEROL 1.25 MG/0.5 ML CONCENTRATE NEB INH PRN ×3 (05:59→20:59)
[2018-12-14 06:00] VITALS: BP 132/70
[2018-12-14] MEDS: HumaLOG INSULIN (NovoLOG) PER UNIT SC SCH ×4 (07:30→21:00)
[2018-12-14] MEDS: SYMBICORT 160/4.5MCG INHALER 6GM INH SCH ×2 (07:54→20:58)
[2018-12-14] MEDS: TIOTROPIUM INHALER/CAPSULE (SPIRIVA) INH SCH (07:54)
[2018-12-14] MEDS: BACTRIM 160MG/800MG DS TAB PO SCH (09:00)
[2018-12-14] MEDS: HEPARIN SOD (PORCINE) 5000 UNITS/ML VIAL SQ SCH ×2 (09:00→20:54)
[2018-12-14] MEDS: LEVEMIR (INSULIN DETEMIR) 1 UNITS/0.01ML SC SCH (09:00)
[2018-12-14] MEDS: TORSEMIDE 20 MG TAB PO SCH (09:00)
[2018-12-14] MEDS: ATORVASTATIN 10 MG TAB PO SCH (09:00)
[2018-12-14] MEDS: predniSONE 5 MG TAB PO SCH (09:00)
[2018-12-14] MEDS: SENOKOT S TAB PO SCH ×2 (09:00→20:53)
[2018-12-14] MEDS: POTASSIUM CHLORIDE 10 MEQ SR TABLET PO SCH (09:00)
[2018-12-14] MEDS: PANTOPRAZOLE 40MG TAB (PROTONIX) PO SCH (09:00)
[2018-12-14] MEDS: FERROUS SULFATE 325MG TAB PO SCH ×2 (09:00→20:53)
[2018-12-14] MEDS: ASCORBIC ACID 500 MG TAB PO SCH ×2 (09:00→20:53)
[2018-12-14] MEDS: ASPIRIN 81 MG ENTERIC TAB PO SCH (09:01)
[2018-12-15 06:00] VITALS: BP 129/87
[2018-12-15] MEDS: HumaLOG INSULIN (NovoLOG) PER UNIT SC SCH ×4 (07:30→20:06)
[2018-12-15] MEDS: TIOTROPIUM INHALER/CAPSULE (SPIRIVA) INH SCH (07:45)
[2018-12-15] MEDS: SYMBICORT 160/4.5MCG INHALER 6GM INH SCH ×2 (07:46→19:38)
[2018-12-15] MEDS: ASPIRIN 81 MG ENTERIC TAB PO SCH (08:15)
[2018-12-15] MEDS: FERROUS SULFATE 325MG TAB PO SCH ×2 (08:16→20:02)
[2018-12-15] MEDS: TORSEMIDE 20 MG TAB PO SCH (08:16)
[2018-12-15] MEDS: predniSONE 5 MG TAB PO SCH (08:16)
[2018-12-15] MEDS: POTASSIUM CHLORIDE 10 MEQ SR TABLET PO SCH (08:17)
[2018-12-15] MEDS: PANTOPRAZOLE 40MG TAB (PROTONIX) PO SCH (08:17)
[2018-12-15] MEDS: LEVEMIR (INSULIN DETEMIR) 1 UNITS/0.01ML SC SCH (08:17)
[2018-12-15] MEDS: ASCORBIC ACID 500 MG TAB PO SCH ×2 (08:17→20:02)
[2018-12-15] MEDS: SENOKOT S TAB PO SCH ×2 (08:17→20:02)
[2018-12-15] MEDS: ATORVASTATIN 10 MG TAB PO SCH (08:17)
[2018-12-15] MEDS: HEPARIN SOD (PORCINE) 5000 UNITS/ML VIAL SQ SCH ×2 (08:18→20:02)
[2018-12-15] MEDS: LEVALBUTEROL 1.25 MG/0.5 ML CONCENTRATE NEB INH PRN ×4 (10:00→23:37)
[2018-12-16 06:00] VITALS: BP 137/62
[2018-12-16] MEDS: HumaLOG INSULIN (NovoLOG) PER UNIT SC SCH ×4 (07:30→20:21)
[2018-12-16] MEDS: TIOTROPIUM INHALER/CAPSULE (SPIRIVA) INH SCH (07:30)
[2018-12-16] MEDS: SYMBICORT 160/4.5MCG INHALER 6GM INH SCH ×2 (07:31→20:34)
[2018-12-16] MEDS: PANTOPRAZOLE 40MG TAB (PROTONIX) PO SCH (09:00)
[2018-12-16] MEDS: POTASSIUM CHLORIDE 10 MEQ SR TABLET PO SCH (09:00)
[2018-12-16] MEDS: FERROUS SULFATE 325MG TAB PO SCH ×2 (09:00→20:25)
[2018-12-16] MEDS: SENOKOT S TAB PO SCH ×2 (09:00→20:21)
[2018-12-16] MEDS: LEVEMIR (INSULIN DETEMIR) 1 UNITS/0.01ML SC SCH (09:00)
[2018-12-16] MEDS: HEPARIN SOD (PORCINE) 5000 UNITS/ML VIAL SQ SCH ×2 (09:00→20:21)
[2018-12-16] MEDS: ATORVASTATIN 10 MG TAB PO SCH (09:00)
[2018-12-16] MEDS: ASCORBIC ACID 500 MG TAB PO SCH ×2 (09:00→20:21)
[2018-12-16] MEDS: predniSONE 5 MG TAB PO SCH (10:34)
[2018-12-16] MEDS: TORSEMIDE 20 MG TAB PO SCH (10:34)
[2018-12-16] MEDS: ASPIRIN 81 MG ENTERIC TAB PO SCH (10:35)
[2018-12-16] MEDS: LEVALBUTEROL 1.25 MG/0.5 ML CONCENTRATE NEB INH PRN ×3 (12:06→23:25)
[2018-12-17] MEDS: HumaLOG INSULIN (NovoLOG) PER UNIT SC SCH ×4 (06:45→21:00)
[2018-12-17] MEDS: PANTOPRAZOLE 40MG TAB (PROTONIX) PO SCH (06:46)
[2018-12-17] MEDS: ATORVASTATIN 10 MG TAB PO SCH (06:46)
[2018-12-17] MEDS: POTASSIUM CHLORIDE 10 MEQ SR TABLET PO SCH (06:46)
[2018-12-17] MEDS: ASCORBIC ACID 500 MG TAB PO SCH ×2 (06:46→21:00)
[2018-12-17] MEDS: SENOKOT S TAB PO SCH ×2 (06:46→21:00)
[2018-12-17] MEDS: HEPARIN SOD (PORCINE) 5000 UNITS/ML VIAL SQ SCH ×2 (06:47→21:00)
[2018-12-17] MEDS: LEVEMIR (INSULIN DETEMIR) 1 UNITS/0.01ML SC SCH (06:47)
[2018-12-17] MEDS: TIOTROPIUM INHALER/CAPSULE (SPIRIVA) INH SCH (08:00)
[2018-12-17] MEDS: BACTRIM 160MG/800MG DS TAB PO SCH (08:31)
[2018-12-17] MEDS: predniSONE 5 MG TAB PO SCH (08:31)
[2018-12-17] MEDS: FERROUS SULFATE 325MG TAB PO SCH ×2 (08:32→21:00)
[2018-12-17] MEDS: ASPIRIN 81 MG ENTERIC TAB PO SCH (08:32)
[2018-12-17] MEDS: TORSEMIDE 20 MG TAB PO SCH (08:32)
[2018-12-17] MEDS: LEVALBUTEROL 1.25 MG/0.5 ML CONCENTRATE NEB INH PRN (08:33)
[2018-12-17] MEDS: SYMBICORT 160/4.5MCG INHALER 6GM INH SCH ×2 (09:00→20:15)
[2018-12-18 06:00] VITALS: BP 132/68
[2018-12-18] MEDS: HumaLOG INSULIN (NovoLOG) PER UNIT SC SCH ×4 (07:30→21:20)
[2018-12-18] MEDS: TIOTROPIUM INHALER/CAPSULE (SPIRIVA) INH SCH (08:00)
[2018-12-18] MEDS: SYMBICORT 160/4.5MCG INHALER 6GM INH SCH ×2 (08:00→20:06)
[2018-12-18] MEDS: FERROUS SULFATE 325MG TAB PO SCH ×2 (09:00→21:19)
[2018-12-18] MEDS: SENOKOT S TAB PO SCH ×2 (09:00→21:19)
[2018-12-18] MEDS: HEPARIN SOD (PORCINE) 5000 UNITS/ML VIAL SQ SCH ×2 (09:00→21:20)
[2018-12-18] MEDS: POTASSIUM CHLORIDE 10 MEQ SR TABLET PO SCH (09:00)
[2018-12-18] MEDS: TORSEMIDE 20 MG TAB PO SCH (09:00)
[2018-12-18] MEDS: ASCORBIC ACID 500 MG TAB PO SCH ×2 (09:00→21:20)
[2018-12-18] MEDS: PANTOPRAZOLE 40MG TAB (PROTONIX) PO SCH (09:00)
[2018-12-18] MEDS: LEVEMIR (INSULIN DETEMIR) 1 UNITS/0.01ML SC SCH (09:00)
[2018-12-18] MEDS: ATORVASTATIN 10 MG TAB PO SCH (09:00)
[2018-12-18] MEDS: predniSONE 5 MG TAB PO SCH (09:43)
[2018-12-18] MEDS: ASPIRIN 81 MG ENTERIC TAB PO SCH (09:44)
[2018-12-18 09:48] LABS: HEMATOCRIT 28.9 % (36.0-47.0); HEMOGLOBIN 8.8 g/dl (12.0-15.5); MEAN CORPUSCULAR HEMOGLOBIN 27.1 pg (27.0-33.0); MEAN CORPUSCULAR HGB CONC 30.4 g/dl (32.0-36.5); MEAN CORPUSCULAR VOLUME 88.9 fl (80.0-96.0); PLATELET COUNT, AUTOMATED 446 10^3/uL (150-450); RED BLOOD COUNT 3.25 10^6/uL (4.00-5.40); WHITE BLOOD COUNT 9.4 10^3/uL (4.0-10.0)
[2018-12-18 10:10] LABS: BLOOD UREA NITROGEN 22 MG/DL (7-18); CALCIUM LEVEL 8.2 MG/DL (8.8-10.2); CARBON DIOXIDE LEVEL 34 MEQ/L (21-32); CHLORIDE LEVEL 99 MEQ/L (98-107); CREATININE FOR GFR 0.78 MG/DL (0.55-1.30); GLOMERULAR FILTRATION RATE > 60.0 (>32); GLUCOSE, FASTING 194 MG/DL (70-100); POTASSIUM SERUM 3.7 MEQ/L (3.5-5.1); SODIUM LEVEL 138 MEQ/L (136-145)
[2018-12-18] MEDS: LEVALBUTEROL 1.25 MG/0.5 ML CONCENTRATE NEB INH PRN (20:06)
[2018-12-19] MEDS: HumaLOG INSULIN (NovoLOG) PER UNIT SC SCH ×4 (07:30→21:00)
[2018-12-19] MEDS: TIOTROPIUM INHALER/CAPSULE (SPIRIVA) INH SCH (08:00)
[2018-12-19] MEDS: SYMBICORT 160/4.5MCG INHALER 6GM INH SCH ×2 (08:32→19:35)
[2018-12-19] MEDS: LEVEMIR (INSULIN DETEMIR) 1 UNITS/0.01ML SC SCH (09:00)
[2018-12-19] MEDS: HEPARIN SOD (PORCINE) 5000 UNITS/ML VIAL SQ SCH ×2 (09:00→21:00)
[2018-12-19] MEDS: ASCORBIC ACID 500 MG TAB PO SCH ×2 (09:00→21:00)
[2018-12-19] MEDS: PANTOPRAZOLE 40MG TAB (PROTONIX) PO SCH (09:00)
[2018-12-19] MEDS: ATORVASTATIN 10 MG TAB PO SCH (09:00)
[2018-12-19] MEDS: SENOKOT S TAB PO SCH ×2 (09:00→21:00)
[2018-12-19] MEDS: POTASSIUM CHLORIDE 10 MEQ SR TABLET PO SCH (09:00)
[2018-12-19] MEDS: ASPIRIN 81 MG ENTERIC TAB PO SCH (11:34)
[2018-12-19] MEDS: BACTRIM 160MG/800MG DS TAB PO SCH (11:34)
[2018-12-19] MEDS: predniSONE 5 MG TAB PO SCH (11:34)
[2018-12-19] MEDS: FERROUS SULFATE 325MG TAB PO SCH ×2 (11:34→21:00)
[2018-12-19] MEDS: TORSEMIDE 20 MG TAB PO SCH (11:35)
[2018-12-19] MEDS: LEVALBUTEROL 1.25 MG/0.5 ML CONCENTRATE NEB INH PRN (19:35)
[2018-12-20] MEDS: LEVALBUTEROL 1.25 MG/0.5 ML CONCENTRATE NEB INH PRN ×3 (03:21→23:21)
[2018-12-20] MEDS: HumaLOG INSULIN (NovoLOG) PER UNIT SC SCH ×4 (07:30→21:00)
[2018-12-20] MEDS: TIOTROPIUM INHALER/CAPSULE (SPIRIVA) INH SCH (07:36)
[2018-12-20] MEDS: SYMBICORT 160/4.5MCG INHALER 6GM INH SCH ×2 (07:36→18:41)
[2018-12-20] MEDS: TORSEMIDE 20 MG TAB PO SCH (08:24)
[2018-12-20] MEDS: predniSONE 5 MG TAB PO SCH (08:24)
[2018-12-20] MEDS: FERROUS SULFATE 325MG TAB PO SCH ×2 (08:24→21:00)
[2018-12-20] MEDS: ASPIRIN 81 MG ENTERIC TAB PO SCH (08:24)
[2018-12-20] MEDS: ASCORBIC ACID 500 MG TAB PO SCH ×2 (09:00→21:00)
[2018-12-20] MEDS: LEVEMIR (INSULIN DETEMIR) 1 UNITS/0.01ML SC SCH (09:00)
[2018-12-20] MEDS: ATORVASTATIN 10 MG TAB PO SCH (09:00)
[2018-12-20] MEDS: HEPARIN SOD (PORCINE) 5000 UNITS/ML VIAL SQ SCH ×2 (09:00→21:00)
[2018-12-20] MEDS: PANTOPRAZOLE 40MG TAB (PROTONIX) PO SCH (09:00)
[2018-12-20] MEDS: SENOKOT S TAB PO SCH ×2 (09:00→21:00)
[2018-12-20] MEDS: POTASSIUM CHLORIDE 10 MEQ SR TABLET PO SCH (09:00)
[2018-12-20] MEDS: IBUPROFEN 400 MG TAB PO PRN (23:56)
[2018-12-21] MEDS: LEVALBUTEROL 1.25 MG/0.5 ML CONCENTRATE NEB INH PRN ×2 (03:13→19:57)
[2018-12-21 06:00] VITALS: BP 125/58
[2018-12-21] MEDS: HumaLOG INSULIN (NovoLOG) PER UNIT SC SCH ×4 (07:30→21:00)
[2018-12-21] MEDS: TIOTROPIUM INHALER/CAPSULE (SPIRIVA) INH SCH (07:42)
[2018-12-21] MEDS: SYMBICORT 160/4.5MCG INHALER 6GM INH SCH ×2 (07:42→19:57)
[2018-12-21] MEDS: PANTOPRAZOLE 40MG TAB (PROTONIX) PO SCH (09:00)
[2018-12-21] MEDS: SENOKOT S TAB PO SCH ×2 (09:00→22:16)
[2018-12-21] MEDS: POTASSIUM CHLORIDE 10 MEQ SR TABLET PO SCH (09:00)
[2018-12-21] MEDS: ATORVASTATIN 10 MG TAB PO SCH (09:00)
[2018-12-21] MEDS: LEVEMIR (INSULIN DETEMIR) 1 UNITS/0.01ML SC SCH (09:00)
[2018-12-21] MEDS: HEPARIN SOD (PORCINE) 5000 UNITS/ML VIAL SQ SCH ×2 (09:00→21:00)
[2018-12-21] MEDS: ASCORBIC ACID 500 MG TAB PO SCH ×2 (09:00→22:16)
[2018-12-21] MEDS: predniSONE 5 MG TAB PO SCH (10:28)
[2018-12-21] MEDS: TORSEMIDE 20 MG TAB PO SCH (10:28)
[2018-12-21] MEDS: ASPIRIN 81 MG ENTERIC TAB PO SCH (10:28)
[2018-12-21] MEDS: FERROUS SULFATE 325MG TAB PO SCH ×2 (10:28→22:16)
[2018-12-21] MEDS: IBUPROFEN 400 MG TAB PO PRN (10:29)
[2018-12-21] MEDS: BACTRIM 160MG/800MG DS TAB PO SCH (10:29)
[2018-12-21 13:44] LABS: HEMATOCRIT 26.1 % (36.0-47.0); HEMOGLOBIN 8.3 g/dl (12.0-15.5); MEAN CORPUSCULAR HEMOGLOBIN 26.9 pg (27.0-33.0); MEAN CORPUSCULAR HGB CONC 31.8 g/dl (32.0-36.5); MEAN CORPUSCULAR VOLUME 84.5 fl (80.0-96.0); PLATELET COUNT, AUTOMATED 379 10^3/uL (150-450); RED BLOOD COUNT 3.09 10^6/uL (4.00-5.40); WHITE BLOOD COUNT 18.6 10^3/uL (4.0-10.0)
[2018-12-21 14:08] LABS: CALCIUM LEVEL 8.4 MG/DL (8.8-10.2); CREATININE FOR GFR 1.43 MG/DL (0.55-1.30); GLOMERULAR FILTRATION RATE 37.1 (>32)
[2018-12-21] MEDS: predniSONE 20 MG TAB PO SCH (18:00)
--- NOTE | 2018-12-21 20:47 | IPN ---
DATE: 12/21/2018 Patient seen and examined. Reported worsening shortness of breath. Patient complaining of alternate level of care and worsening cough, productive of yellow sputum. Patient is a very poor historian, has pretty advanced dementia. Denies any chest pain, pressure or discomfort. Wanted to go home, although patient reported worsening respirations. No fever or chills documented. VITAL SIGNS: Temperature 98.9, pulse 93, respirations 22, blood pressure 135/58, pulse oximetry 96% on room air. LABORATORY: WBC 18.6, hemoglobin and hematocrit 8.3/26.1, platelets 379. Chemistry: Sodium 132, potassium 4, chloride 93. Bicarbonate 30, BUN 38, creatinine 1.43. PHYSICAL EXAMINATION: GENERAL: Patient with mild respiratory distress and cough, but comfortable. HEENT: Normocephalic, atraumatic. Moist mucous membranes. CARDIAC: Regular S1, S2. PULMONARY: Bibasilar crackles. ABDOMEN: Soft, nontender. EXTREMITIES: Trace edema in bilateral lower extremities. ASSESSMENT AND PLAN: This is an 83-year-old female patient with underlying medical history of dementia, end-stage chronic obstructive pulmonary disease (COPD), anxiety, gastroesophageal reflux disease (GERD), past history of Methicillin-resistant Staphylococcus aureus (MRSA), on suppressive Bactrim, pulmonary artery hypertension, chronic right bundle branch block, transient ischemic attack (TIA), history of malaria, history of dysentery, osteopenia, diverticulosis, migraine, coronary artery disease, with myocardial infarction ([place]) and coronary artery bypass graft (CABG), history of pleural effusion, left ventricular diastolic dysfunction, ejection fraction 85% initially lived at home with patient's son, initially presented with shortness of breath, currently alternate level of care. PROBLEMS: 1. Shortness of breath. Status post acute COPD exacerbation. Patient's respirations slightly worsened today with worsening leukocytosis. Will get chest x-ray, sputum cultures. Continue with nebulizer treatments, Spiriva, Symbicort, prednisone dose has been increased. Continue Bactrim. Cefdinir has been added. Patient baseline steroid dependent. 2. Acute kidney injury (ANUJ). Likely prerenal. Will hold torsemide for now. Monitor kidney function. 3. History of healthcare associated pneumonia. Repeat x-ray has been ordered given worsening respiratory status. Cefdinir restarted as well as patient on Bactrim. Followup sputum culture, chest x-ray. 4. Chronic diastolic congestive heart failure. Torsemide on hold given patient with worsening kidney function. Strict Intake and output (I and Os), daily weights. 5. Chronic normocytic anemia. Transfusion as needed. Monitor hemoglobin and hematocrit. Iron supplementation. 6. Diabetes. Consistent carbohydrate, insulin as ordered. 7. History of left lower extremity deep venous thrombosis (DVT). Not on anticoagulation. No current issues with calf swelling. 8. History of TIA. Continue with aspirin. Patient is on Lipitor. 9. Advanced dementia. Supportive care. bunker worker on consult. 10. History of pulmonary artery hypertension with cor pulmonale. Supportive care. Treatment as above. 11. Anxiety. Continue current medication. 12. Coronary arterial disease with stents. Continue aspirin, continue statin. 13. History of malaria. Supportive care. 14. Dementia. Supportive care. 15. Lower back pain. Continue pain medication. 16. GI prophylaxis, Protonix. DVT prophylaxis, heparin subcutaneous. DISPOSITION: Pending clinical improvement. bunker worker for placement but will monitor patient's status closely given worsening laboratory findings.
[2018-12-21] MEDS: CEFDINIR 300 MG CAP (OMNICEF) PO SCH (22:15)
[2018-12-21] MEDS: ANALGESIC BALM CRM 120 GM TOP SCH (23:11)
[2018-12-22] MEDS: MORPHINE 10MG/0.5ML ORAL CONCENTRATE SOLUTION U/D SL PRN (01:16)
[2018-12-22 06:00] VITALS: BP 141/65
[2018-12-22 06:31] LABS: HEMATOCRIT 25.1 % (36.0-47.0); MEAN CORPUSCULAR HEMOGLOBIN 26.8 pg (27.0-33.0); MEAN CORPUSCULAR HGB CONC 31.9 g/dl (32.0-36.5); MEAN CORPUSCULAR VOLUME 83.9 fl (80.0-96.0); PLATELET COUNT, AUTOMATED 348 10^3/uL (150-450); RED BLOOD COUNT 2.99 10^6/uL (4.00-5.40); WHITE BLOOD COUNT 16.7 10^3/uL (4.0-10.0)
[2018-12-22 07:05] LABS: C REACTIVE PROTEIN QUANTITATIV 17.8 MG/DL (0.00-0.30); CREATININE FOR GFR 1.09 MG/DL (0.55-1.30); GLOMERULAR FILTRATION RATE 50.8 (>32); POTASSIUM SERUM 3.1 MEQ/L (3.5-5.1)
[2018-12-22] MEDS: HumaLOG INSULIN (NovoLOG) PER UNIT SC SCH ×4 (07:30→20:53)
[2018-12-22 07:40] LABS: INFLUENZA A AMPLIFICATION NEGATIVE (NEGATIVE); INFLUENZA B AMPLIFICATION NEGATIVE (NEGATIVE)
[2018-12-22] MEDS ORDERED: POTASSIUM CHLORIDE 10 MEQ SR TABLET PO ONE (08:00)
--- NOTE | 2018-12-22 08:03 | REP ---
CHEST AP LATERAL: 12/21/2018. Comparison: Portable chest 10/28/2018, 07/31/2018; CT 06/16/2018. Clinical history: Dyspnea and cough. Findings: Sternotomy wires again seen. Heart size unchanged. The aorta is calcified, mildly tortuous conforming to the dextroconvex curvature of the lower cervical spine. No aneurysm. No widening the mediastinum. Some underlying COPD and fibrosis noted. Pulmonary artery hypertension seen consistent with that COPD. Improvement in the retrocardiac left lower lobe chronic basilar atelectatic changes superimposed on some fibrosis. There is also a lesser linear atelectatic change and the consolidative opacity in the right base much improved compared to the October study. Small effusions are difficult to exclude. Thoracic spine shows demineralization and some kyphosis on the lateral view. There is no free air. Advanced degenerative changes at the shoulders. Impression: 1. COPD with some fibrosis and pulmonary artery hypertension. Much improved right base opacity since the October study and also some improvement in the retrocardiac left lower lobe, but some chronic fibrotic or atelectatic change remains. Small effusions difficult to exclude. 2. No cardiomegaly or edema. Electronically Signed by Chan Cordero MD 12/22/2018 09:28 A
[2018-12-22] MEDS: TIOTROPIUM INHALER/CAPSULE (SPIRIVA) INH SCH (08:09)
[2018-12-22] MEDS: SYMBICORT 160/4.5MCG INHALER 6GM INH SCH ×2 (08:10→20:14)
[2018-12-22] MEDS: ACETAMINOPHEN TAB 650MG DOSE (2X325MG) PO PRN (08:34)
[2018-12-22] MEDS: LEVEMIR (INSULIN DETEMIR) 1 UNITS/0.01ML SC SCH (09:00)
[2018-12-22] MEDS: POTASSIUM CHLORIDE 10 MEQ SR TABLET PO SCH (09:00)
[2018-12-22] MEDS: ASCORBIC ACID 500 MG TAB PO SCH ×2 (09:00→20:53)
[2018-12-22] MEDS: ANALGESIC BALM CRM 120 GM TOP SCH ×4 (09:00→20:54)
[2018-12-22] MEDS: HEPARIN SOD (PORCINE) 5000 UNITS/ML VIAL SQ SCH ×2 (09:00→21:00)
[2018-12-22] MEDS: PANTOPRAZOLE 40MG TAB (PROTONIX) PO SCH (09:00)
[2018-12-22] MEDS: SENOKOT S TAB PO SCH ×2 (09:00→20:53)
[2018-12-22] MEDS: predniSONE 20 MG TAB PO SCH (10:29)
[2018-12-22] MEDS: AZITHROMYCIN 250 MG TAB PO SCH (10:30)
[2018-12-22] MEDS: FERROUS SULFATE 325MG TAB PO SCH ×2 (10:30→20:53)
[2018-12-22] MEDS: ATORVASTATIN 10 MG TAB PO SCH (10:30)
[2018-12-22] MEDS: ASPIRIN 81 MG ENTERIC TAB PO SCH (10:30)
[2018-12-22] MEDS: CEFDINIR 300 MG CAP (OMNICEF) PO SCH ×2 (10:30→20:53)
[2018-12-22 16:10] VITALS: BP 115/55
[2018-12-22 16:30] LABS: ABG BASE EXCESS 8.2 (-2.0-2.0); ABG HCO3 31.7 MEQ/L (22.0-26.0); ABG O2 SATURATION 94.1 % (95.0-99.0); ABG PARTIAL PRESSURE CO2 39.9 mmHg (35.0-45.0); ABG PARTIAL PRESSURE O2 69.4 mmHg (75.0-100.0); ABG STANDARD HCO3 31.9 MEQ/L (22.0-26.0); ABG TOTAL CO2 32.9 MEQ/L (23.0-31.0); ABG pH (ARTERIAL) 7.518 UNITS (7.350-7.450)
[2018-12-22] MEDS: LEVALBUTEROL 1.25 MG/0.5 ML CONCENTRATE NEB INH PRN (17:11)
--- NOTE | 2018-12-22 18:31 | IPNPDOC ---
Text Note Date of Service The patient was seen on 12/22/18. NOTE Patient seen and examined. febrile overnight. sob continues. with cough. Patient is a very poor historian, has pretty advanced dementia. Denies any chest pain, pressure or discomfort. PHYSICAL EXAMINATION: GENERAL: Patient with mild respiratory distress and cough, but comfortable. HEENT: Normocephalic, atraumatic. Moist mucous membranes. CARDIAC: Regular S1, S2. PULMONARY: Bibasilar crackles. ABDOMEN: Soft, nontender. EXTREMITIES: Trace edema in bilateral lower extremities. ASSESSMENT AND PLAN: This is an 83-year-old female patient with underlying medical history of dementia, end-stage chronic obstructive pulmonary disease (COPD), anxiety, gastroesophageal reflux disease (GERD), past history of Methicillin-resistant Staphylococcus aureus (MRSA), on suppressive Bactrim, pulmonary artery hypertension, chronic right bundle branch block, transient ischemic attack (T IA), history of malaria, history of dysentery, osteopenia, diverticulosis, migraine, coronary artery disease, with myocardial infarction ([place]) and coronary artery bypass graft (CABG), history of pleural effusion, left ventricular diastolic dysfunction, ejection fraction 85% initially lived at home with patient's son, initially presented with shortness of breath, currently alternate level of care. PROBLEMS: 1. Shortness of breath. acute COPD exacerbation. Patient's respirations slightly worsened with worsening leukocytosis. chest x-ray, sputum cultures, respiratory panel. Continue with nebulizer treatments, Spiriva, Symbicort, prednisone dose has been increased. Continue Bactrim. Cefdinir, azithromycin has been added. Patient baseline steroid dependent. 2. Acute kidney injury (ANUJ). Likely prerenal. Monitor kidney function. 3. History of healthcare associated pneumonia. new fever. Repeat x-ray has been ordered given worsening respiratory status. Cefdinir, azithromycin started, as well as patient on Bactrim. Followup sputum culture, chest x-ray. 4. Chronic diastolic congestive heart failure. Torsemide, Strict Intake and output (I and Os), daily weights. 5. Chronic normocytic anemia. Transfusion as needed. Monitor hemoglobin and hematocrit. Iron supplementation. 6. Diabetes. Consistent carbohydrate, insulin as ordered. 7. History of left lower extremity deep venous thrombosis (DVT). Not on anticoagulation. No current issues with calf swelling. 8. History of TIA. Continue with aspirin. Patient is on Lipitor. 9. Advanced dementia. Supportive care. 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 10. History of pulmonary artery hypertension with cor pulmonale. Supportive care. Treatment as above. 11. Anxiety. Continue current medication. 12. Coronary arterial disease with stents. Continue aspirin, continue statin. 13. History of malaria. Supportive care. 14. Dementia. Supportive care. 15. Lower back pain. Continue pain medication. 16. GI prophylaxis, Protonix. DVT prophylaxis, heparin subcutaneous. DISPOSITION: Pending clinical improvement. farmworker vegetable for placement but will monitor patient's status closely given worsening laboratory findings. VS,Fishbone, I+O VS, Fishbone, I+O Laboratory Tests 12/22/18 06:05 Red Blood Count 2.99 L, Mean Corpuscular Volume 83.9, Mean Corpuscular Hemoglobin 26.8 L, Mean Corpuscular Hemoglobin Concent 31.9 L, Red Cell Distribution Width 20.8 H, Calcium Level 8.0 L Vital Signs Date Time Temp Pulse Resp B/P (MAP) Pulse Ox O2 Delivery O2 Flow Rate FiO2 12/22/18 16:10 100.7 104 28 115/55 (75) 95 3.0 12/21/18 03:04 Nasal Cannula I&O- Last 24 Hours up to 6 AM 12/22/18 06:00 Intake Total 420 ml Output Total 600 ml Balance -180 ml RADHA ALVARES MD Dec 22, 2018 18:31
[2018-12-22] MEDS: IPRATROPIUM 0.5MG/ALBUTEROL 2.5MG INH SOL UD 3ML (DUONEB)(J7620) NEB SCH (20:13)
[2018-12-23] MEDS: IPRATROPIUM 0.5MG/ALBUTEROL 2.5MG INH SOL UD 3ML (DUONEB)(J7620) NEB SCH ×4 (01:38→19:50)
[2018-12-23 06:00] VITALS: BP 145/65
[2018-12-23 06:40] LABS: HEMATOCRIT 24.3 % (36.0-47.0); HEMOGLOBIN 7.5 g/dl (12.0-15.5); MEAN CORPUSCULAR HEMOGLOBIN 26.6 pg (27.0-33.0); MEAN CORPUSCULAR HGB CONC 30.9 g/dl (32.0-36.5); MEAN CORPUSCULAR VOLUME 86.2 fl (80.0-96.0); PLATELET COUNT, AUTOMATED 301 10^3/uL (150-450); RED BLOOD COUNT 2.82 10^6/uL (4.00-5.40)
[2018-12-23] MEDS: SYMBICORT 160/4.5MCG INHALER 6GM INH SCH ×2 (07:12→21:00)
[2018-12-23] MEDS: TIOTROPIUM INHALER/CAPSULE (SPIRIVA) INH SCH (07:12)
[2018-12-23 07:15] LABS: BLOOD UREA NITROGEN 22 MG/DL (7-18); CALCIUM LEVEL 8.2 MG/DL (8.8-10.2); CARBON DIOXIDE LEVEL 31 MEQ/L (21-32); CHLORIDE LEVEL 95 MEQ/L (98-107); GLOMERULAR FILTRATION RATE > 60.0 (>32); GLUCOSE, FASTING 167 MG/DL (70-100); MAGNESIUM LEVEL 2.2 MG/DL (1.8-2.4); POTASSIUM SERUM 3.1 MEQ/L (3.5-5.1); SODIUM LEVEL 133 MEQ/L (136-145)
[2018-12-23] MEDS: HumaLOG INSULIN (NovoLOG) PER UNIT SC SCH ×4 (07:30→21:00)
[2018-12-23] MEDS: PANTOPRAZOLE 40MG TAB (PROTONIX) PO SCH (07:49)
[2018-12-23] MEDS: HEPARIN SOD (PORCINE) 5000 UNITS/ML VIAL SQ SCH ×2 (07:49→20:33)
[2018-12-23] MEDS: LEVEMIR (INSULIN DETEMIR) 1 UNITS/0.01ML SC SCH (07:49)
[2018-12-23] MEDS: AZITHROMYCIN 250 MG TAB PO SCH (08:55)
[2018-12-23] MEDS: predniSONE 20 MG TAB PO SCH (08:55)
[2018-12-23] MEDS: FERROUS SULFATE 325MG TAB PO SCH ×2 (08:55→20:32)
[2018-12-23] MEDS: CEFDINIR 300 MG CAP (OMNICEF) PO SCH ×2 (08:55→20:32)
[2018-12-23] MEDS: ATORVASTATIN 10 MG TAB PO SCH (08:55)
[2018-12-23] MEDS: ASPIRIN 81 MG ENTERIC TAB PO SCH (08:55)
[2018-12-23] MEDS: POTASSIUM CHLORIDE 10 MEQ SR TABLET PO SCH ×3 (08:56→20:32)
[2018-12-23] MEDS: TORSEMIDE 20 MG TAB PO SCH (08:56)
[2018-12-23] MEDS: ANALGESIC BALM CRM 120 GM TOP SCH ×4 (08:59→21:00)
[2018-12-23] MEDS: SENOKOT S TAB PO SCH ×2 (08:59→20:32)
[2018-12-23] MEDS: ASCORBIC ACID 500 MG TAB PO SCH ×2 (08:59→20:32)
[2018-12-23] MEDS: ACETAMINOPHEN TAB 650MG DOSE (2X325MG) PO PRN (11:21)
[2018-12-23 11:30] VITALS: BP 112/56
[2018-12-23 13:45] VITALS: BP 105/56
--- NOTE | 2018-12-23 14:32 | IPNPDOC ---
Text Note Date of Service The patient was seen on 12/23/18. NOTE Patient seen and examined. febrile overnight. sob continues. with cough. Patient is a very poor historian, has pretty advanced dementia. Denies any chest pain, pressure or discomfort. explained need for antibiotics and transfusion. Reported an episode of chest discomfort , EKG SR RBBB 92, refused cardiac enzymes PHYSICAL EXAMINATION: GENERAL: Patient with mild respiratory distress and cough, but comfortable. HEENT: Normocephalic, atraumatic. Moist mucous membranes. CARDIAC: Regular S1, S2. PULMONARY: Bibasilar crackles. ABDOMEN: Soft, nontender. EXTREMITIES: Trace edema in bilateral lower extremities. ASSESSMENT AND PLAN: This is an 83-year-old female patient with underlying medical history of dementia, end-stage chronic obstructive pulmonary disease (COPD), anxiety, gastroesophageal reflux disease (GERD), past history of Methicillin-resistant Staphylococcus aureus (MRSA), on suppressive Bactrim, pulmonary artery hypertension, chronic right bundle branch block, transient ischemic attack (TIA), history of malaria, history of dysentery, osteopenia, diverticulosis, migraine, coronary artery disease, with myocardial infarction ([place]) and coronary artery bypass graft (CABG), history of pleural effusion, left ventricular diastolic dysfunction, ejection fraction 85% initially lived at home with patient's son, initially presented with shortness of breath, currently alternate level of care. PROBLEMS: 1. Shortness of breath. acute COPD exacerbation. Patient's respirations slightly worsened with worsening leukocytosis. chest x-ray, sputum cultures, respiratory panel. Continue with nebulizer treatments, Spiriva, Symbicort, prednisone taper as tolerated. Continue Bactrim. Cefdinir, azithromycin. Patient baseline steroid dependent. 2. Acute kidney injury (ANUJ).resolved 3. History of healthcare associated pneumonia. new fever. Repeat x-ray has been ordered given worsening respiratory status. Cefdinir, azithromycin, as well as patient on suppressive Bactrim. Followup sputum culture, chest x-ray. 4. Chronic diastolic congestive heart failure. Torsemide, Strict Intake and output (I and Os), daily weights. 5. Chronic normocytic anemia. Transfusion as needed. Monitor hemoglobin and hematocrit. Iron supplementation. 6. Diabetes. Consistent carbohydrate, insulin as ordered. 7. History of left lower extremity deep venous thrombosis (DVT). Not on anticoagulation. No current issues with calf swelling. 8. History of TIA. Continue with aspirin. Patient is on Lipitor. 9. Advanced dementia. Supportive care. 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 10. History of pulmonary artery hypertension with cor pulmonale. Supportive care. Treatment as above. 11. Anxiety. Continue current medication. 12. Coronary arterial disease with stents. Continue aspirin, continue statin. 13. History of malaria. Supportive care. 14. Dementia. Supportive care. 15. Lower back pain. Continue pain medication. 16. GI prophylaxis, Protonix. DVT prophylaxis, heparin subcutaneous. DISPOSITION: Pending clinical improvement. apartment maintenance worker for placement but will monitor patient's status closely given worsening laboratory findings. VS,Fishbone, I+O VS, Fishbone, I+O Laboratory Tests 12/23/18 06:18 Red Blood Count 2.82 L, Mean Corpuscular Volume 86.2, Mean Corpuscular Hemoglobin 26.6 L, Mean Corpuscular Hemoglobin Concent 30.9 L, Red Cell Distribution Width 20.9 H, Calcium Level 8.2 L Vital Signs Date Time Temp Pulse Resp B/P (MAP) Pulse Ox O2 Delivery O2 Flow Rate FiO2 12/23/18 13:45 98.9 87 22 105/56 (72) 93 3.0 12/22/18 20:58 Nasal Cannula I&O- Last 24 Hours up to 6 AM 12/23/18 06:00 Intake Total 1100 ml Output Total 1200 ml Balance -100 ml RADHA ALVARES MD Dec 23, 2018 14:32
--- NOTE | 2018-12-23 15:45 | ECGEPIP ---
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
[2018-12-24] MEDS: IPRATROPIUM 0.5MG/ALBUTEROL 2.5MG INH SOL UD 3ML (DUONEB)(J7620) NEB SCH ×4 (01:32→18:34)
[2018-12-24 06:00] VITALS: BP 115/57
[2018-12-24] MEDS: TIOTROPIUM INHALER/CAPSULE (SPIRIVA) INH SCH (07:29)
[2018-12-24] MEDS: HumaLOG INSULIN (NovoLOG) PER UNIT SC SCH ×4 (07:30→21:00)
[2018-12-24] MEDS: SYMBICORT 160/4.5MCG INHALER 6GM INH SCH ×2 (07:30→18:34)
[2018-12-24] MEDS: ASPIRIN 81 MG ENTERIC TAB PO SCH ×3 (09:00→16:24)
[2018-12-24] MEDS: ANALGESIC BALM CRM 120 GM TOP SCH ×4 (09:00→21:00)
[2018-12-24] MEDS: HEPARIN SOD (PORCINE) 5000 UNITS/ML VIAL SQ SCH ×2 (09:00→21:00)
[2018-12-24] MEDS: SENOKOT S TAB PO SCH ×2 (09:00→21:00)
[2018-12-24] MEDS: FERROUS SULFATE 325MG TAB PO SCH ×3 (09:00→21:00)
[2018-12-24] MEDS: BACTRIM 160MG/800MG DS TAB PO SCH ×2 (09:00→10:51)
[2018-12-24] MEDS: AZITHROMYCIN 250 MG TAB PO SCH ×2 (09:00→10:51)
[2018-12-24] MEDS: PANTOPRAZOLE 40MG TAB (PROTONIX) PO SCH (09:00)
[2018-12-24] MEDS: ATORVASTATIN 10 MG TAB PO SCH (09:00)
[2018-12-24] MEDS: POTASSIUM CHLORIDE 10 MEQ SR TABLET PO SCH ×3 (09:00→16:25)
[2018-12-24] MEDS: ASCORBIC ACID 500 MG TAB PO SCH ×2 (09:00→21:00)
[2018-12-24] MEDS: CEFDINIR 300 MG CAP (OMNICEF) PO SCH ×3 (09:00→21:00)
[2018-12-24] MEDS: TORSEMIDE 20 MG TAB PO SCH ×3 (09:00→16:24)
[2018-12-24] MEDS: LEVEMIR (INSULIN DETEMIR) 1 UNITS/0.01ML SC SCH (09:00)
[2018-12-24] MEDS: predniSONE 20 MG TAB PO SCH ×3 (09:00→16:24)
[2018-12-24] MEDS: guaiFENesin ER 600 MG TAB PO PRN (10:55)
[2018-12-24 12:59] LABS: HEMATOCRIT 29.9 % (36.0-47.0); MEAN CORPUSCULAR HEMOGLOBIN 27.3 pg (27.0-33.0); MEAN CORPUSCULAR HGB CONC 32.4 g/dl (32.0-36.5); MEAN CORPUSCULAR VOLUME 84.2 fl (80.0-96.0); PLATELET COUNT, AUTOMATED 357 10^3/uL (150-450); RED BLOOD COUNT 3.55 10^6/uL (4.00-5.40); WHITE BLOOD COUNT 11.4 10^3/uL (4.0-10.0)
[2018-12-24 13:21] LABS: HEMOGLOBIN 9.7 g/dl (12.0-15.5)
[2018-12-24 13:34] LABS: BLOOD UREA NITROGEN 37 MG/DL (7-18); CALCIUM LEVEL 8.4 MG/DL (8.8-10.2); CARBON DIOXIDE LEVEL 30 MEQ/L (21-32); CHLORIDE LEVEL 101 MEQ/L (98-107); CREATININE FOR GFR 0.85 MG/DL (0.55-1.30); GLOMERULAR FILTRATION RATE > 60.0 (>32); GLUCOSE, FASTING 83 MG/DL (70-100); MAGNESIUM LEVEL 2.2 MG/DL (1.8-2.4); POTASSIUM SERUM 3.5 MEQ/L (3.5-5.1); SODIUM LEVEL 140 MEQ/L (136-145)
[2018-12-24] MEDS ORDERED: CEFDINIR 300 MG CAP (OMNICEF) PO ONE ×2 (16:30)
[2018-12-24] MEDS ORDERED: AZITHROMYCIN 250 MG TAB PO ONE (16:30)
[2018-12-24] MEDS: MORPHINE 10MG/0.5ML ORAL CONCENTRATE SOLUTION U/D SL PRN (23:25)
[2018-12-25] MEDS: IPRATROPIUM 0.5MG/ALBUTEROL 2.5MG INH SOL UD 3ML (DUONEB)(J7620) NEB SCH ×4 (00:09→18:38)
[2018-12-25] MEDS: MORPHINE 10MG/0.5ML ORAL CONCENTRATE SOLUTION U/D SL PRN ×2 (04:43→22:00)
[2018-12-25 06:00] VITALS: BP 134/85
[2018-12-25] MEDS: TIOTROPIUM INHALER/CAPSULE (SPIRIVA) INH SCH (07:09)
[2018-12-25] MEDS: SYMBICORT 160/4.5MCG INHALER 6GM INH SCH ×2 (07:09→18:38)
[2018-12-25] MEDS: HumaLOG INSULIN (NovoLOG) PER UNIT SC SCH ×4 (07:30→21:00)
[2018-12-25 08:12] LABS: HEMATOCRIT 29.7 % (36.0-47.0); HEMOGLOBIN 9.5 g/dl (12.0-15.5); MEAN CORPUSCULAR HEMOGLOBIN 27.1 pg (27.0-33.0); MEAN CORPUSCULAR VOLUME 84.9 fl (80.0-96.0); PLATELET COUNT, AUTOMATED 371 10^3/uL (150-450); WHITE BLOOD COUNT 8.6 10^3/uL (4.0-10.0)
[2018-12-25 08:27] LABS: BLOOD UREA NITROGEN 34 MG/DL (7-18); CALCIUM LEVEL 8.3 MG/DL (8.8-10.2); CARBON DIOXIDE LEVEL 30 MEQ/L (21-32); CHLORIDE LEVEL 98 MEQ/L (98-107); CREATININE FOR GFR 0.94 MG/DL (0.55-1.30); GLOMERULAR FILTRATION RATE > 60.0 (>32); GLUCOSE, FASTING 208 MG/DL (70-100); MAGNESIUM LEVEL 2.1 MG/DL (1.8-2.4); POTASSIUM SERUM 3.9 MEQ/L (3.5-5.1); SODIUM LEVEL 138 MEQ/L (136-145)
[2018-12-25] MEDS: ASCORBIC ACID 500 MG TAB PO SCH ×2 (09:00→21:00)
[2018-12-25] MEDS: PANTOPRAZOLE 40MG TAB (PROTONIX) PO SCH (09:00)
[2018-12-25] MEDS: ATORVASTATIN 10 MG TAB PO SCH (09:00)
[2018-12-25] MEDS: ANALGESIC BALM CRM 120 GM TOP SCH ×4 (09:00→21:00)
[2018-12-25] MEDS: LEVEMIR (INSULIN DETEMIR) 1 UNITS/0.01ML SC SCH (09:00)
[2018-12-25] MEDS: HEPARIN SOD (PORCINE) 5000 UNITS/ML VIAL SQ SCH ×2 (09:00→21:00)
[2018-12-25] MEDS: SENOKOT S TAB PO SCH ×2 (09:00→21:00)
[2018-12-25] MEDS: POTASSIUM CHLORIDE 10 MEQ SR TABLET PO SCH ×2 (09:00→11:01)
[2018-12-25] MEDS: AZITHROMYCIN 250 MG TAB PO SCH (10:59)
[2018-12-25] MEDS: CEFDINIR 300 MG CAP (OMNICEF) PO SCH ×2 (11:00→22:05)
[2018-12-25] MEDS: FERROUS SULFATE 325MG TAB PO SCH ×2 (11:00→21:00)
[2018-12-25] MEDS: TORSEMIDE 20 MG TAB PO SCH (11:00)
[2018-12-25] MEDS: ASPIRIN 81 MG ENTERIC TAB PO SCH (11:00)
[2018-12-25] MEDS: predniSONE 20 MG TAB PO SCH (11:00)
[2018-12-25] MEDS: guaiFENesin ER 600 MG TAB PO PRN (12:38)
--- NOTE | 2018-12-25 15:56 | IPNPDOC ---
Text Note Date of Service The patient was seen on 12/25/18. NOTE Subjective: Patient dyspnea has improved. She denies any chest pain or palpit ations. She does have a productive cough. Objective: Vitals: (see below) General: No acute distress, laying comfortably in bed. HEENT: Moist mucous membranes. Neck: No JVD or lymphadenopathy Cardiac: RRR, No murmurs Pulm: crackles at the bases b/l. + rhonchi. No wheezing. No use of accessory muscles. No conversational dyspnea. Abd: NT/ND + BS Ext: Trace edema BLE. No cyanosis. Distal pulses intact. Labs (see below) Assessment/Plan 1. Acute COPD exacerbation secondary to rhinovirus- ? Concomitant bacterial. On Cefdinir/azithromycin. Improving. Cont nebs. Cont Mucinex. On Spiriva. 2. Chronic anemia with drop in hemoglobin. Status post PRBC. Globus stable at this time. No need for transfusion. Hemodynamically stable. No acute source of bleeding at this time. 3. s/p Sepsis HCAP 2/2 - s/p cefdinir 4. s/p Acute on chronic anemia - s/p 1U PRBC. Anemia panel. No active bleeding at this time. 5. Subclinical hypothyroidism- Synthroid 6. Normocytic anemia stable no need for treatment at this time. 7. History of TIA. On aspirin and statin 8. History of cor pulmonale 9. DM - cont current insulin regimen. 10. History of nephrectomy. Renal function stable. 11. History of Anxiety 12. History of malaria. 13. H/o Dementia 14. History of CAD with stenting. On aspirin, statin 15. History of Pulmonary hypertension. 16. s/p Decompensated diastolic heart failure - on Torsemide, stable. DVT prophylaxis: hep sq Prognosis guarded. Patient continues to refuse many of her meds although was counseled on compliance. VS,Fishbone, I+O VS, Fishbone, I+O Laboratory Tests 12/25/18 07:48 Red Blood Count 3.50 L, Mean Corpuscular Volume 84.9, Mean Corpuscular Hemoglobin 27.1, Mean Corpuscular Hemoglobin Concent 32.0, Red Cell Distribution Width 19.3 H, Calcium Level 8.3 L Vital Signs Date Time Temp Pulse Resp B/P (MAP) Pulse Ox O2 Delivery O2 Flow Rate FiO2 2/19/19 12:48 3.0 12/25/18 06:00 98.2 94 22 134/85 (101) 96 12/25/18 00:10 Nasal Cannula I&O- Last 24 Hours up to 6 AM 12/25/18 06:00 Intake Total 780 ml Output Total 0 ml Balance 780 ml JAHAIRA CABALLERO MD Dec 25, 2018 15:56
[2018-12-25] MEDS: IPRATROPIUM 0.5MG/ALBUTEROL 2.5MG INH SOL UD 3ML (DUONEB)(J7620) NEB PRN (16:58)
[2018-12-26] MEDS: IPRATROPIUM 0.5MG/ALBUTEROL 2.5MG INH SOL UD 3ML (DUONEB)(J7620) NEB SCH ×4 (02:00→20:03)
[2018-12-26 06:00] VITALS: BP 134/83
[2018-12-26] MEDS: TIOTROPIUM INHALER/CAPSULE (SPIRIVA) INH SCH (08:19)
[2018-12-26] MEDS: SYMBICORT 160/4.5MCG INHALER 6GM INH SCH ×2 (08:20→20:03)
[2018-12-26] MEDS: PANTOPRAZOLE 40MG TAB (PROTONIX) PO SCH (09:00)
[2018-12-26] MEDS: LEVEMIR (INSULIN DETEMIR) 1 UNITS/0.01ML SC SCH (09:00)
[2018-12-26] MEDS: HEPARIN SOD (PORCINE) 5000 UNITS/ML VIAL SQ SCH ×2 (09:00→21:00)
[2018-12-26] MEDS: SENOKOT S TAB PO SCH ×2 (09:00→21:00)
[2018-12-26] MEDS: ANALGESIC BALM CRM 120 GM TOP SCH ×4 (09:00→21:00)
[2018-12-26] MEDS: HumaLOG INSULIN (NovoLOG) PER UNIT SC SCH ×4 (09:16→21:00)
[2018-12-26] MEDS: predniSONE 20 MG TAB PO SCH (09:23)
[2018-12-26] MEDS: AZITHROMYCIN 250 MG TAB PO SCH (09:23)
[2018-12-26] MEDS: CEFDINIR 300 MG CAP (OMNICEF) PO SCH ×2 (09:23→21:46)
[2018-12-26] MEDS: TORSEMIDE 20 MG TAB PO SCH (09:23)
[2018-12-26] MEDS: ASPIRIN 81 MG ENTERIC TAB PO SCH (09:23)
[2018-12-26] MEDS: ASCORBIC ACID 500 MG TAB PO SCH ×2 (09:24→21:00)
[2018-12-26] MEDS: BACTRIM 160MG/800MG DS TAB PO SCH (09:25)
[2018-12-26] MEDS: ATORVASTATIN 10 MG TAB PO SCH (09:25)
[2018-12-26] MEDS: POTASSIUM CHLORIDE 10 MEQ SR TABLET PO SCH (09:25)
[2018-12-26] MEDS: FERROUS SULFATE 325MG TAB PO SCH ×2 (09:25→21:00)
[2018-12-26] MEDS: IPRATROPIUM 0.5MG/ALBUTEROL 2.5MG INH SOL UD 3ML (DUONEB)(J7620) NEB PRN ×2 (11:26→16:18)
[2018-12-26] MEDS: MORPHINE 10MG/0.5ML ORAL CONCENTRATE SOLUTION U/D SL PRN (22:31)
[2018-12-27] MEDS: IPRATROPIUM 0.5MG/ALBUTEROL 2.5MG INH SOL UD 3ML (DUONEB)(J7620) NEB SCH ×4 (02:10→20:00)
[2018-12-27 06:00] VITALS: BP 140/63
[2018-12-27] MEDS: TIOTROPIUM INHALER/CAPSULE (SPIRIVA) INH SCH (07:52)
[2018-12-27] MEDS: SYMBICORT 160/4.5MCG INHALER 6GM INH SCH ×2 (07:52→20:09)
[2018-12-27] MEDS: ASPIRIN 81 MG ENTERIC TAB PO SCH (09:29)
[2018-12-27] MEDS: predniSONE 20 MG TAB PO SCH (09:29)
[2018-12-27] MEDS: TORSEMIDE 20 MG TAB PO SCH (09:53)
[2018-12-27] MEDS: HumaLOG INSULIN (NovoLOG) PER UNIT SC SCH ×4 (09:53→21:00)
[2018-12-27] MEDS: POTASSIUM CHLORIDE 10 MEQ SR TABLET PO SCH (09:54)
[2018-12-27] MEDS: PANTOPRAZOLE 40MG TAB (PROTONIX) PO SCH (09:54)
[2018-12-27] MEDS: ATORVASTATIN 10 MG TAB PO SCH (09:54)
[2018-12-27] MEDS: CEFDINIR 300 MG CAP (OMNICEF) PO SCH (09:54)
[2018-12-27] MEDS: FERROUS SULFATE 325MG TAB PO SCH ×2 (09:54→21:00)
[2018-12-27] MEDS: SENOKOT S TAB PO SCH ×2 (09:55→21:00)
[2018-12-27] MEDS: ASCORBIC ACID 500 MG TAB PO SCH ×2 (09:56→21:00)
[2018-12-27] MEDS: LEVEMIR (INSULIN DETEMIR) 1 UNITS/0.01ML SC SCH (09:57)
[2018-12-27] MEDS: AZITHROMYCIN 250 MG TAB PO SCH (09:57)
[2018-12-27] MEDS: HEPARIN SOD (PORCINE) 5000 UNITS/ML VIAL SQ SCH ×2 (09:58→21:00)
[2018-12-27] MEDS: ANALGESIC BALM CRM 120 GM TOP SCH ×4 (09:58→21:00)
[2018-12-27 22:00] VITALS: BP 150/72
[2018-12-27] MEDS: IPRATROPIUM 0.5MG/ALBUTEROL 2.5MG INH SOL UD 3ML (DUONEB)(J7620) NEB PRN (23:04)
[2018-12-28] MEDS: IPRATROPIUM 0.5MG/ALBUTEROL 2.5MG INH SOL UD 3ML (DUONEB)(J7620) NEB SCH ×4 (01:54→18:17)
[2018-12-28 06:00] VITALS: BP 152/71
[2018-12-28] MEDS: HumaLOG INSULIN (NovoLOG) PER UNIT SC SCH ×4 (07:30→21:29)
[2018-12-28] MEDS: SYMBICORT 160/4.5MCG INHALER 6GM INH SCH ×2 (07:33→18:17)
[2018-12-28] MEDS: TIOTROPIUM INHALER/CAPSULE (SPIRIVA) INH SCH (07:33)
[2018-12-28] MEDS: ANALGESIC BALM CRM 120 GM TOP SCH ×4 (09:00→21:29)
[2018-12-28] MEDS: PANTOPRAZOLE 40MG TAB (PROTONIX) PO SCH (09:00)
[2018-12-28] MEDS: LEVEMIR (INSULIN DETEMIR) 1 UNITS/0.01ML SC SCH (09:00)
[2018-12-28] MEDS: ASCORBIC ACID 500 MG TAB PO SCH ×2 (09:00→21:29)
[2018-12-28] MEDS: HEPARIN SOD (PORCINE) 5000 UNITS/ML VIAL SQ SCH ×2 (09:00→21:29)
[2018-12-28] MEDS: ATORVASTATIN 10 MG TAB PO SCH (09:00)
[2018-12-28] MEDS: SENOKOT S TAB PO SCH ×2 (09:00→21:29)
[2018-12-28] MEDS: FERROUS SULFATE 325MG TAB PO SCH ×2 (12:04→21:29)
[2018-12-28] MEDS: BACTRIM 160MG/800MG DS TAB PO SCH (12:04)
[2018-12-28] MEDS: TORSEMIDE 20 MG TAB PO SCH (12:04)
[2018-12-28] MEDS: ASPIRIN 81 MG ENTERIC TAB PO SCH (12:04)
[2018-12-28] MEDS: predniSONE 20 MG TAB PO SCH (12:04)
[2018-12-28 12:58] LABS: HEMATOCRIT 32.5 % (36.0-47.0); HEMOGLOBIN 10.2 g/dl (12.0-15.5); MEAN CORPUSCULAR HEMOGLOBIN 26.7 pg (27.0-33.0); MEAN CORPUSCULAR HGB CONC 31.4 g/dl (32.0-36.5); MEAN CORPUSCULAR VOLUME 85.1 fl (80.0-96.0); PLATELET COUNT, AUTOMATED 458 10^3/uL (150-450); RED BLOOD COUNT 3.82 10^6/uL (4.00-5.40); WHITE BLOOD COUNT 9.4 10^3/uL (4.0-10.0)
[2018-12-28 13:21] LABS: BLOOD UREA NITROGEN 33 MG/DL (7-18); C REACTIVE PROTEIN QUANTITATIV 3.91 MG/DL (0.00-0.30); CALCIUM LEVEL 8.7 MG/DL (8.8-10.2); CARBON DIOXIDE LEVEL 31 MEQ/L (21-32); CHLORIDE LEVEL 103 MEQ/L (98-107); CREATININE FOR GFR 0.88 MG/DL (0.55-1.30); GLOMERULAR FILTRATION RATE > 60.0 (>32); GLUCOSE, FASTING 93 MG/DL (70-100); MAGNESIUM LEVEL 2.2 MG/DL (1.8-2.4); POTASSIUM SERUM 3.5 MEQ/L (3.5-5.1); SODIUM LEVEL 140 MEQ/L (136-145)
[2018-12-28 22:05] VITALS: BP 140/63
[2018-12-28] MEDS: IPRATROPIUM 0.5MG/ALBUTEROL 2.5MG INH SOL UD 3ML (DUONEB)(J7620) NEB PRN (23:23)
[2018-12-29] MEDS: IPRATROPIUM 0.5MG/ALBUTEROL 2.5MG INH SOL UD 3ML (DUONEB)(J7620) NEB SCH ×4 (02:00→20:00)
[2018-12-29 06:00] VITALS: BP 185/75
[2018-12-29 06:41] VITALS: BP 157/75
[2018-12-29] MEDS: HumaLOG INSULIN (NovoLOG) PER UNIT SC SCH ×4 (07:30→20:24)
[2018-12-29] MEDS: TIOTROPIUM INHALER/CAPSULE (SPIRIVA) INH SCH (08:41)
[2018-12-29] MEDS: SYMBICORT 160/4.5MCG INHALER 6GM INH SCH ×2 (08:42→21:00)
[2018-12-29] MEDS: SENOKOT S TAB PO SCH ×2 (09:00→20:23)
[2018-12-29] MEDS: HEPARIN SOD (PORCINE) 5000 UNITS/ML VIAL SQ SCH ×2 (10:58→20:24)
[2018-12-29] MEDS: LEVEMIR (INSULIN DETEMIR) 1 UNITS/0.01ML SC SCH (10:58)
[2018-12-29] MEDS: ANALGESIC BALM CRM 120 GM TOP SCH ×4 (10:58→20:24)
[2018-12-29] MEDS: predniSONE 20 MG TAB PO SCH (11:05)
[2018-12-29] MEDS: ASPIRIN 81 MG ENTERIC TAB PO SCH (11:05)
[2018-12-29] MEDS: PANTOPRAZOLE 40MG TAB (PROTONIX) PO SCH (11:05)
[2018-12-29] MEDS: ATORVASTATIN 10 MG TAB PO SCH (11:05)
[2018-12-29] MEDS: guaiFENesin ER 600 MG TAB PO PRN (11:06)
[2018-12-29] MEDS: FERROUS SULFATE 325MG TAB PO SCH ×2 (11:06→20:23)
[2018-12-29] MEDS: TORSEMIDE 20 MG TAB PO SCH (11:06)
[2018-12-29] MEDS: ASCORBIC ACID 500 MG TAB PO SCH ×2 (11:06→20:23)
[2018-12-29] MEDS: CETIRIZINE (ZyrTEC) 10 MG TAB PO PRN (11:06)
[2018-12-29] MEDS: IPRATROPIUM 0.5MG/ALBUTEROL 2.5MG INH SOL UD 3ML (DUONEB)(J7620) NEB PRN ×2 (16:04→18:05)
[2018-12-30] MEDS: IPRATROPIUM 0.5MG/ALBUTEROL 2.5MG INH SOL UD 3ML (DUONEB)(J7620) NEB SCH ×4 (01:17→20:00)
[2018-12-30 06:00] VITALS: BP 137/65
[2018-12-30] MEDS: HumaLOG INSULIN (NovoLOG) PER UNIT SC SCH ×4 (07:30→20:50)
[2018-12-30] MEDS: TIOTROPIUM INHALER/CAPSULE (SPIRIVA) INH SCH (08:07)
[2018-12-30] MEDS: SYMBICORT 160/4.5MCG INHALER 6GM INH SCH ×2 (08:07→20:11)
[2018-12-30] MEDS: ATORVASTATIN 10 MG TAB PO SCH (09:00)
[2018-12-30] MEDS: PANTOPRAZOLE 40MG TAB (PROTONIX) PO SCH (09:00)
[2018-12-30] MEDS: LEVEMIR (INSULIN DETEMIR) 1 UNITS/0.01ML SC SCH (09:00)
[2018-12-30] MEDS: HEPARIN SOD (PORCINE) 5000 UNITS/ML VIAL SQ SCH ×2 (09:00→21:00)
[2018-12-30] MEDS: ANALGESIC BALM CRM 120 GM TOP SCH ×4 (09:00→21:00)
[2018-12-30] MEDS: SENOKOT S TAB PO SCH ×2 (09:00→20:48)
[2018-12-30] MEDS: TORSEMIDE 20 MG TAB PO SCH (11:00)
[2018-12-30] MEDS: ASPIRIN 81 MG ENTERIC TAB PO SCH (11:00)
[2018-12-30] MEDS: predniSONE 20 MG TAB PO SCH (11:00)
[2018-12-30] MEDS: FERROUS SULFATE 325MG TAB PO SCH ×2 (11:01→20:47)
[2018-12-30] MEDS: MIRALAX *UNIT DOSE* 17GM PACKET PO PRN (11:01)
[2018-12-30] MEDS: ASCORBIC ACID 500 MG TAB PO SCH ×2 (11:01→20:48)
[2018-12-30] MEDS: IPRATROPIUM 0.5MG/ALBUTEROL 2.5MG INH SOL UD 3ML (DUONEB)(J7620) NEB PRN (15:57)
[2018-12-31] MEDS: IPRATROPIUM 0.5MG/ALBUTEROL 2.5MG INH SOL UD 3ML (DUONEB)(J7620) NEB SCH ×5 (02:07→23:46)
[2018-12-31 06:00] VITALS: BP 141/68
[2018-12-31] MEDS: TIOTROPIUM INHALER/CAPSULE (SPIRIVA) INH SCH (06:17)
[2018-12-31] MEDS: SYMBICORT 160/4.5MCG INHALER 6GM INH SCH ×2 (06:17→21:00)
[2018-12-31] MEDS: HumaLOG INSULIN (NovoLOG) PER UNIT SC SCH ×4 (07:30→21:00)
[2018-12-31] MEDS: SENOKOT S TAB PO SCH ×4 (09:00→20:20)
[2018-12-31] MEDS: HEPARIN SOD (PORCINE) 5000 UNITS/ML VIAL SQ SCH ×2 (09:00→21:00)
[2018-12-31] MEDS: ANALGESIC BALM CRM 120 GM TOP SCH ×4 (09:00→21:00)
[2018-12-31] MEDS: PANTOPRAZOLE 40MG TAB (PROTONIX) PO SCH ×2 (09:00→11:08)
[2018-12-31] MEDS: ATORVASTATIN 10 MG TAB PO SCH ×2 (09:00→11:08)
[2018-12-31] MEDS: LEVEMIR (INSULIN DETEMIR) 1 UNITS/0.01ML SC SCH (09:00)
[2018-12-31] MEDS: MIRALAX *UNIT DOSE* 17GM PACKET PO PRN (11:07)
[2018-12-31] MEDS: ASPIRIN 81 MG ENTERIC TAB PO SCH (11:07)
[2018-12-31] MEDS: TORSEMIDE 20 MG TAB PO SCH (11:08)
[2018-12-31] MEDS: predniSONE 20 MG TAB PO SCH (11:08)
[2018-12-31] MEDS: BACTRIM 160MG/800MG DS TAB PO SCH (11:08)
[2018-12-31] MEDS: FERROUS SULFATE 325MG TAB PO SCH ×3 (11:08→20:20)
[2018-12-31] MEDS: ASCORBIC ACID 500 MG TAB PO SCH ×3 (11:08→20:20)
[2018-12-31] MEDS: IPRATROPIUM 0.5MG/ALBUTEROL 2.5MG INH SOL UD 3ML (DUONEB)(J7620) NEB PRN (19:04)
[2019-01-01 06:00] VITALS: BP 142/67
[2019-01-01] MEDS: HumaLOG INSULIN (NovoLOG) PER UNIT SC SCH ×4 (07:30→20:22)
[2019-01-01] MEDS: IPRATROPIUM 0.5MG/ALBUTEROL 2.5MG INH SOL UD 3ML (DUONEB)(J7620) NEB SCH ×4 (07:49→23:44)
[2019-01-01] MEDS: TIOTROPIUM INHALER/CAPSULE (SPIRIVA) INH SCH (07:49)
[2019-01-01] MEDS: SYMBICORT 160/4.5MCG INHALER 6GM INH SCH ×2 (07:50→19:30)
[2019-01-01] MEDS: LEVEMIR (INSULIN DETEMIR) 1 UNITS/0.01ML SC SCH (09:00)
[2019-01-01] MEDS: TORSEMIDE 20 MG TAB PO SCH (09:00)
[2019-01-01] MEDS: HEPARIN SOD (PORCINE) 5000 UNITS/ML VIAL SQ SCH ×2 (09:00→20:22)
[2019-01-01] MEDS: SENOKOT S TAB PO SCH ×2 (09:00→20:21)
[2019-01-01] MEDS: FERROUS SULFATE 325MG TAB PO SCH ×2 (09:00→20:21)
[2019-01-01] MEDS: ASCORBIC ACID 500 MG TAB PO SCH ×2 (09:00→20:22)
[2019-01-01] MEDS: ASPIRIN 81 MG ENTERIC TAB PO SCH (09:00)
[2019-01-01] MEDS: predniSONE 20 MG TAB PO SCH (09:00)
[2019-01-01] MEDS: ATORVASTATIN 10 MG TAB PO SCH (09:00)
[2019-01-01] MEDS: ANALGESIC BALM CRM 120 GM TOP SCH ×4 (09:00→20:21)
[2019-01-01] MEDS: PANTOPRAZOLE 40MG TAB (PROTONIX) PO SCH (09:00)
[2019-01-02] MEDS: IPRATROPIUM 0.5MG/ALBUTEROL 2.5MG INH SOL UD 3ML (DUONEB)(J7620) NEB PRN (03:28)
[2019-01-02] MEDS: MORPHINE 10MG/0.5ML ORAL CONCENTRATE SOLUTION U/D SL PRN (05:30)
[2019-01-02 06:00] VITALS: BP 129/62
[2019-01-02] MEDS: SYMBICORT 160/4.5MCG INHALER 6GM INH SCH ×2 (07:13→20:32)
[2019-01-02] MEDS: IPRATROPIUM 0.5MG/ALBUTEROL 2.5MG INH SOL UD 3ML (DUONEB)(J7620) NEB SCH ×3 (07:13→20:00)
[2019-01-02] MEDS: HumaLOG INSULIN (NovoLOG) PER UNIT SC SCH ×4 (07:30→21:00)
[2019-01-02 08:13] LABS: HEMATOCRIT 34.3 % (36.0-47.0); HEMOGLOBIN 10.9 g/dl (12.0-15.5); MEAN CORPUSCULAR HGB CONC 31.8 g/dl (32.0-36.5); MEAN CORPUSCULAR VOLUME 85.1 fl (80.0-96.0); PLATELET COUNT, AUTOMATED 447 10^3/uL (150-450); RED BLOOD COUNT 4.03 10^6/uL (4.00-5.40); WHITE BLOOD COUNT 18.2 10^3/uL (4.0-10.0)
[2019-01-02 08:36] LABS: BLOOD UREA NITROGEN 26 MG/DL (7-18); CALCIUM LEVEL 8.5 MG/DL (8.8-10.2); CARBON DIOXIDE LEVEL 33 MEQ/L (21-32); CHLORIDE LEVEL 95 MEQ/L (98-107); GLOMERULAR FILTRATION RATE > 60.0 (>32); GLUCOSE, FASTING 161 MG/DL (70-100); POTASSIUM SERUM 3.5 MEQ/L (3.5-5.1); SODIUM LEVEL 137 MEQ/L (136-145)
[2019-01-02] MEDS: HEPARIN SOD (PORCINE) 5000 UNITS/ML VIAL SQ SCH ×2 (09:00→21:00)
[2019-01-02] MEDS: BACTRIM 160MG/800MG DS TAB PO SCH (09:00)
[2019-01-02] MEDS: ASCORBIC ACID 500 MG TAB PO SCH ×2 (09:00→21:00)
[2019-01-02] MEDS: PANTOPRAZOLE 40MG TAB (PROTONIX) PO SCH (09:00)
[2019-01-02] MEDS: ANALGESIC BALM CRM 120 GM TOP SCH ×4 (09:00→21:00)
[2019-01-02] MEDS: TORSEMIDE 20 MG TAB PO SCH (09:00)
[2019-01-02] MEDS: predniSONE 20 MG TAB PO SCH (09:00)
[2019-01-02] MEDS: ASPIRIN 81 MG ENTERIC TAB PO SCH (09:00)
[2019-01-02] MEDS: SENOKOT S TAB PO SCH ×2 (09:00→21:00)
[2019-01-02] MEDS: FERROUS SULFATE 325MG TAB PO SCH ×2 (09:00→21:00)
[2019-01-02] MEDS: ATORVASTATIN 10 MG TAB PO SCH (09:00)
[2019-01-02] MEDS: LEVEMIR (INSULIN DETEMIR) 1 UNITS/0.01ML SC SCH (09:00)
[2019-01-02] MEDS: TIOTROPIUM INHALER/CAPSULE (SPIRIVA) INH SCH (11:01)
[2019-01-02] MEDS: CEFDINIR 300 MG CAP (OMNICEF) PO SCH ×2 (12:32→21:00)
[2019-01-03] MEDS: IPRATROPIUM 0.5MG/ALBUTEROL 2.5MG INH SOL UD 3ML (DUONEB)(J7620) NEB SCH ×4 (02:00→20:00)
[2019-01-03 06:00] VITALS: BP 141/66
[2019-01-03] MEDS: HumaLOG INSULIN (NovoLOG) PER UNIT SC SCH ×4 (07:30→20:58)
[2019-01-03] MEDS: TIOTROPIUM INHALER/CAPSULE (SPIRIVA) INH SCH (07:36)
[2019-01-03] MEDS: SYMBICORT 160/4.5MCG INHALER 6GM INH SCH ×2 (07:36→20:32)
[2019-01-03] MEDS: ATORVASTATIN 10 MG TAB PO SCH (09:00)
[2019-01-03] MEDS: FERROUS SULFATE 325MG TAB PO SCH ×2 (09:00→20:58)
[2019-01-03] MEDS: ASCORBIC ACID 500 MG TAB PO SCH ×2 (09:00→20:58)
[2019-01-03] MEDS: HEPARIN SOD (PORCINE) 5000 UNITS/ML VIAL SQ SCH ×2 (09:00→20:58)
[2019-01-03] MEDS: LEVEMIR (INSULIN DETEMIR) 1 UNITS/0.01ML SC SCH (09:00)
[2019-01-03] MEDS: PANTOPRAZOLE 40MG TAB (PROTONIX) PO SCH (09:00)
[2019-01-03] MEDS: SENOKOT S TAB PO SCH ×2 (09:00→20:58)
[2019-01-03] MEDS: predniSONE 20 MG TAB PO SCH (09:00)
[2019-01-03] MEDS: ANALGESIC BALM CRM 120 GM TOP SCH ×4 (09:00→20:59)
[2019-01-03] MEDS: CEFDINIR 300 MG CAP (OMNICEF) PO SCH ×2 (10:04→20:58)
[2019-01-03] MEDS: TORSEMIDE 20 MG TAB PO SCH (10:05)
[2019-01-03] MEDS: ASPIRIN 81 MG ENTERIC TAB PO SCH (10:05)
[2019-01-03] MEDS: LEVALBUTEROL 1.25 MG/0.5 ML CONCENTRATE NEB INH PRN (16:28)
[2019-01-04] MEDS: IPRATROPIUM 0.5MG/ALBUTEROL 2.5MG INH SOL UD 3ML (DUONEB)(J7620) NEB PRN ×3 (00:14→14:36)
[2019-01-04] MEDS: IPRATROPIUM 0.5MG/ALBUTEROL 2.5MG INH SOL UD 3ML (DUONEB)(J7620) NEB SCH ×4 (02:00→19:44)
[2019-01-04 06:00] VITALS: BP 131/61
[2019-01-04] MEDS: HumaLOG INSULIN (NovoLOG) PER UNIT SC SCH ×4 (07:30→20:49)
[2019-01-04] MEDS: TIOTROPIUM INHALER/CAPSULE (SPIRIVA) INH SCH (08:00)
[2019-01-04] MEDS: SYMBICORT 160/4.5MCG INHALER 6GM INH SCH ×2 (08:00→19:44)
[2019-01-04] MEDS: FERROUS SULFATE 325MG TAB PO SCH ×2 (09:00→20:49)
[2019-01-04] MEDS: PANTOPRAZOLE 40MG TAB (PROTONIX) PO SCH (09:00)
[2019-01-04] MEDS: ASCORBIC ACID 500 MG TAB PO SCH ×2 (09:00→20:49)
[2019-01-04] MEDS: LEVEMIR (INSULIN DETEMIR) 1 UNITS/0.01ML SC SCH (09:00)
[2019-01-04] MEDS: ATORVASTATIN 10 MG TAB PO SCH (09:00)
[2019-01-04] MEDS: HEPARIN SOD (PORCINE) 5000 UNITS/ML VIAL SQ SCH ×2 (09:00→20:49)
[2019-01-04] MEDS: ANALGESIC BALM CRM 120 GM TOP SCH ×4 (09:00→20:49)
[2019-01-04] MEDS: ASPIRIN 81 MG ENTERIC TAB PO SCH (11:16)
[2019-01-04] MEDS: predniSONE 20 MG TAB PO SCH (11:16)
[2019-01-04] MEDS: CEFDINIR 300 MG CAP (OMNICEF) PO SCH ×2 (11:16→20:49)
[2019-01-04] MEDS: SENOKOT S TAB PO SCH ×2 (11:16→20:49)
[2019-01-04] MEDS: TORSEMIDE 20 MG TAB PO SCH (13:00)
[2019-01-04] MEDS: BACTRIM 160MG/800MG DS TAB PO SCH (13:00)
[2019-01-04] MEDS ORDERED: TORSEMIDE 20 MG TAB PO ONE (14:00)
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
[2019-01-04] MEDS: LEVALBUTEROL 1.25 MG/0.5 ML CONCENTRATE NEB INH PRN (23:53)
[2019-01-05] MEDS: IPRATROPIUM 0.5MG/ALBUTEROL 2.5MG INH SOL UD 3ML (DUONEB)(J7620) NEB SCH ×4 (01:34→19:41)
[2019-01-05 06:00] VITALS: BP 151/65
[2019-01-05] MEDS: HumaLOG INSULIN (NovoLOG) PER UNIT SC SCH ×4 (07:30→20:30)
[2019-01-05] MEDS: MIRALAX *UNIT DOSE* 17GM PACKET PO PRN (08:16)
[2019-01-05] MEDS: CEFDINIR 300 MG CAP (OMNICEF) PO SCH ×2 (08:16→20:20)
[2019-01-05] MEDS: predniSONE 10 MG TAB PO SCH (08:16)
[2019-01-05] MEDS: ASPIRIN 81 MG ENTERIC TAB PO SCH (08:17)
[2019-01-05] MEDS: ASCORBIC ACID 500 MG TAB PO SCH ×3 (08:17→20:20)
[2019-01-05] MEDS: ATORVASTATIN 10 MG TAB PO SCH ×2 (08:17→09:00)
[2019-01-05] MEDS: TORSEMIDE 20 MG TAB PO SCH ×2 (08:17→09:00)
[2019-01-05] MEDS: TIOTROPIUM INHALER/CAPSULE (SPIRIVA) INH SCH (08:29)
[2019-01-05] MEDS: SYMBICORT 160/4.5MCG INHALER 6GM INH SCH ×2 (08:30→19:41)
[2019-01-05] MEDS: PANTOPRAZOLE 40MG TAB (PROTONIX) PO SCH (09:00)
[2019-01-05] MEDS: FERROUS SULFATE 325MG TAB PO SCH ×2 (09:00→20:20)
[2019-01-05] MEDS: SENOKOT S TAB PO SCH ×2 (09:00→20:20)
[2019-01-05] MEDS: ANALGESIC BALM CRM 120 GM TOP SCH ×4 (09:00→20:21)
[2019-01-05] MEDS: HEPARIN SOD (PORCINE) 5000 UNITS/ML VIAL SQ SCH ×2 (09:00→20:21)
[2019-01-05] MEDS: LEVEMIR (INSULIN DETEMIR) 1 UNITS/0.01ML SC SCH (09:00)
[2019-01-05 12:40] LABS: HEMATOCRIT 34.2 % (36.0-47.0); MEAN CORPUSCULAR HEMOGLOBIN 27.3 pg (27.0-33.0); MEAN CORPUSCULAR HGB CONC 32.2 g/dl (32.0-36.5); MEAN CORPUSCULAR VOLUME 84.9 fl (80.0-96.0); PLATELET COUNT, AUTOMATED 434 10^3/uL (150-450); RED BLOOD COUNT 4.03 10^6/uL (4.00-5.40); WHITE BLOOD COUNT 19.3 10^3/uL (4.0-10.0)
[2019-01-05 13:07] LABS: CALCIUM LEVEL 8.7 MG/DL (8.8-10.2); CREATININE FOR GFR 1.31 MG/DL (0.55-1.30); GLOMERULAR FILTRATION RATE 41.1 (>32); MAGNESIUM LEVEL 1.8 MG/DL (1.8-2.4); POTASSIUM SERUM 3.5 MEQ/L (3.5-5.1)
[2019-01-06] MEDS: IPRATROPIUM 0.5MG/ALBUTEROL 2.5MG INH SOL UD 3ML (DUONEB)(J7620) NEB SCH ×4 (01:35→19:39)
[2019-01-06] MEDS: HumaLOG INSULIN (NovoLOG) PER UNIT SC SCH ×4 (07:30→21:00)
[2019-01-06] MEDS: TIOTROPIUM INHALER/CAPSULE (SPIRIVA) INH SCH (07:45)
[2019-01-06] MEDS: SYMBICORT 160/4.5MCG INHALER 6GM INH SCH ×2 (07:46→19:39)
[2019-01-06] MEDS: LEVEMIR (INSULIN DETEMIR) 1 UNITS/0.01ML SC SCH (09:00)
[2019-01-06] MEDS: ATORVASTATIN 10 MG TAB PO SCH ×2 (09:00→10:07)
[2019-01-06] MEDS: HEPARIN SOD (PORCINE) 5000 UNITS/ML VIAL SQ SCH ×2 (09:00→21:00)
[2019-01-06] MEDS: FERROUS SULFATE 325MG TAB PO SCH ×3 (09:00→21:00)
[2019-01-06] MEDS: SENOKOT S TAB PO SCH ×2 (09:00→21:00)
[2019-01-06] MEDS: PANTOPRAZOLE 40MG TAB (PROTONIX) PO SCH (09:00)
[2019-01-06] MEDS: CEFDINIR 300 MG CAP (OMNICEF) PO SCH ×3 (09:00→21:00)
[2019-01-06] MEDS: ANALGESIC BALM CRM 120 GM TOP SCH ×4 (09:00→21:00)
[2019-01-06] MEDS: ASCORBIC ACID 500 MG TAB PO SCH ×3 (09:00→21:00)
[2019-01-06] MEDS: TORSEMIDE 20 MG TAB PO SCH ×2 (09:00→10:09)
[2019-01-06] MEDS: ASPIRIN 81 MG ENTERIC TAB PO SCH ×2 (09:00→10:07)
[2019-01-06] MEDS: predniSONE 10 MG TAB PO SCH ×2 (09:00→10:06)
[2019-01-06] MEDS: MIRALAX *UNIT DOSE* 17GM PACKET PO PRN (10:06)
[2019-01-06 11:57] LABS: C REACTIVE PROTEIN QUANTITATIV 4.27 MG/DL (0.00-0.30)
[2019-01-06] MEDS: IPRATROPIUM 0.5MG/ALBUTEROL 2.5MG INH SOL UD 3ML (DUONEB)(J7620) NEB PRN ×2 (23:07→23:36)
[2019-01-07] MEDS: IPRATROPIUM 0.5MG/ALBUTEROL 2.5MG INH SOL UD 3ML (DUONEB)(J7620) NEB SCH ×4 (01:43→19:44)
[2019-01-07 02:05] VITALS: BP 150/70
[2019-01-07 02:30] LABS: ABG BASE EXCESS 5.3 (-2.0-2.0); ABG HCO3 28.8 MEQ/L (22.0-26.0); ABG O2 SATURATION 93.5 % (95.0-99.0); ABG PARTIAL PRESSURE CO2 38.1 mmHg (35.0-45.0); ABG PARTIAL PRESSURE O2 68.9 mmHg (75.0-100.0); ABG STANDARD HCO3 29.2 MEQ/L (22.0-26.0); ABG TOTAL CO2 29.9 MEQ/L (23.0-31.0); ABG pH (ARTERIAL) 7.496 UNITS (7.350-7.450)
--- NOTE | 2019-01-07 03:25 | REPVR ---
EXAM: XR Chest, 1 View EXAM DATE/TIME: 01/07/2019 2:44 AM CLINICAL HISTORY: 83 years old, female; Signs and symptoms; Shortness of breath; Additional info: Increased SOB TECHNIQUE: XR of the chest, 1 view. COMPARISON: CR Chest, 2 view PA, Lat 12/21/2018 8:44 PM FINDINGS: Lungs: Hyperinflated lungs representing emphysema. Bibasilar opacification likely combination of atelectasis and effusions, right greater than left slightly increased from prior study. Pleural space: See above. Heart/Mediastinum: Cardiomegaly. Vasculature: Atherosclerosis. Bones/joints: Sternotomy. Degenerative changes of bilateral shoulder joints. IMPRESSION: Hyperinflated lungs representing emphysema. Bibasilar opacification likely combination of atelectasis and effusions, right greater than left slightly increased from prior study. Electronically signed by: Devi Baeza On 01/07/2019 03:24:55 AM
--- NOTE | 2019-01-07 04:24 | REPVR ---
EXAM: US Duplex Bilateral Lower Extremity Veins EXAM DATE/TIME: 01/07/2019 4:18 AM CLINICAL HISTORY: 83 years old, female; Signs and symptoms; Other: SOB TECHNIQUE: Real-time duplex ultrasound of the Bilateral Lower Extremities with 2-D pope scale, color Doppler flow and spectral waveform analysis. Complete exam focused on the bilateral lower extremity veins. COMPARISON: US Duplex, Ext,LOWER veins,unilat 04/21/2018 3:01 AM FINDINGS: Right deep veins: Unremarkable. The common femoral, femoral, proximal profunda femoral and popliteal veins are patent without thrombus. Normal Doppler waveforms. Normal compressibility and/or augmentation response. Right superficial veins: Saphenofemoral junction is patent without thrombus. Left deep veins: Unremarkable. The common femoral, femoral, proximal profunda femoral and popliteal veins are patent without thrombus. Normal Doppler waveforms. Normal compressibility and/or augmentation response. Left superficial veins: Saphenofemoral junction is patent without thrombus. Soft tissues: Unremarkable. IMPRESSION: No acute findings. No evidence of deep vein thrombosis. Electronically signed by: Devi Baeza On 01/07/2019 04:24:36 AM
[2019-01-07 06:00] VITALS: BP 139/62
[2019-01-07] MEDS: TIOTROPIUM INHALER/CAPSULE (SPIRIVA) INH SCH (07:22)
[2019-01-07] MEDS: SYMBICORT 160/4.5MCG INHALER 6GM INH SCH ×2 (07:23→21:12)
[2019-01-07] MEDS: HumaLOG INSULIN (NovoLOG) PER UNIT SC SCH ×4 (07:30→20:34)
[2019-01-07] MEDS: FERROUS SULFATE 325MG TAB PO SCH ×2 (09:00→20:34)
[2019-01-07] MEDS: predniSONE 10 MG TAB PO SCH (09:00)
[2019-01-07] MEDS: BACTRIM 160MG/800MG DS TAB PO SCH (09:00)
[2019-01-07] MEDS: LEVEMIR (INSULIN DETEMIR) 1 UNITS/0.01ML SC SCH (09:00)
[2019-01-07] MEDS: PANTOPRAZOLE 40MG TAB (PROTONIX) PO SCH (09:00)
[2019-01-07] MEDS: CEFDINIR 300 MG CAP (OMNICEF) PO SCH ×2 (09:00→20:34)
[2019-01-07] MEDS: SENOKOT S TAB PO SCH ×2 (09:00→20:34)
[2019-01-07] MEDS: ANALGESIC BALM CRM 120 GM TOP SCH ×4 (09:00→20:35)
[2019-01-07] MEDS: TORSEMIDE 20 MG TAB PO SCH (09:00)
[2019-01-07] MEDS: ASCORBIC ACID 500 MG TAB PO SCH ×2 (09:00→20:34)
[2019-01-07] MEDS: HEPARIN SOD (PORCINE) 5000 UNITS/ML VIAL SQ SCH ×2 (09:00→20:34)
[2019-01-07] MEDS: ATORVASTATIN 10 MG TAB PO SCH (09:00)
[2019-01-07] MEDS: ASPIRIN 81 MG ENTERIC TAB PO SCH (09:00)
[2019-01-07 19:55] VITALS: BP 129/59
[2019-01-07 22:35] VITALS: BP 141/59
[2019-01-07] MEDS: IPRATROPIUM 0.5MG/ALBUTEROL 2.5MG INH SOL UD 3ML (DUONEB)(J7620) NEB PRN (23:32)
[2019-01-08 00:56] VITALS: BP 134/70
[2019-01-08] MEDS: IPRATROPIUM 0.5MG/ALBUTEROL 2.5MG INH SOL UD 3ML (DUONEB)(J7620) NEB SCH ×5 (01:46→23:27)
[2019-01-08] MEDS: MORPHINE 10MG/0.5ML ORAL CONCENTRATE SOLUTION U/D SL PRN ×2 (01:51→20:36)
[2019-01-08 06:00] VITALS: BP 131/62
[2019-01-08] MEDS: TIOTROPIUM INHALER/CAPSULE (SPIRIVA) INH SCH (07:22)
[2019-01-08] MEDS: SYMBICORT 160/4.5MCG INHALER 6GM INH SCH ×2 (07:22→21:00)
[2019-01-08] MEDS: HumaLOG INSULIN (NovoLOG) PER UNIT SC SCH ×4 (07:30→20:11)
[2019-01-08] MEDS: ASPIRIN 81 MG ENTERIC TAB PO SCH ×2 (09:00→18:17)
[2019-01-08] MEDS: PANTOPRAZOLE 40MG TAB (PROTONIX) PO SCH (09:00)
[2019-01-08] MEDS: SENOKOT S TAB PO SCH ×2 (09:00→20:06)
[2019-01-08] MEDS: ANALGESIC BALM CRM 120 GM TOP SCH ×4 (09:00→20:07)
[2019-01-08] MEDS: ATORVASTATIN 10 MG TAB PO SCH (09:00)
[2019-01-08] MEDS: predniSONE 10 MG TAB PO SCH (09:00)
[2019-01-08] MEDS: LEVEMIR (INSULIN DETEMIR) 1 UNITS/0.01ML SC SCH (09:00)
[2019-01-08] MEDS: HEPARIN SOD (PORCINE) 5000 UNITS/ML VIAL SQ SCH ×2 (09:00→20:06)
[2019-01-08] MEDS: CEFDINIR 300 MG CAP (OMNICEF) PO SCH ×2 (09:00→20:06)
[2019-01-08] MEDS: ASCORBIC ACID 500 MG TAB PO SCH ×2 (09:00→20:06)
[2019-01-08] MEDS: FERROUS SULFATE 325MG TAB PO SCH ×2 (09:00→20:06)
[2019-01-08] MEDS: TORSEMIDE 20 MG TAB PO SCH (09:00)
[2019-01-08] MEDS ORDERED: SALIVA SUBSTITUTE(MOUTHKOTE) BTL MT PRN (14:00)
[2019-01-08] MEDS: IPRATROPIUM 0.5MG/ALBUTEROL 2.5MG INH SOL UD 3ML (DUONEB)(J7620) NEB PRN (15:17)
[2019-01-09] MEDS: IPRATROPIUM 0.5MG/ALBUTEROL 2.5MG INH SOL UD 3ML (DUONEB)(J7620) NEB PRN ×3 (03:33→18:52)
[2019-01-09] MEDS: MORPHINE 10MG/0.5ML ORAL CONCENTRATE SOLUTION U/D SL PRN (04:44)
[2019-01-09 06:00] VITALS: BP 125/62
[2019-01-09] MEDS: HumaLOG INSULIN (NovoLOG) PER UNIT SC SCH ×4 (07:30→21:36)
[2019-01-09] MEDS: SYMBICORT 160/4.5MCG INHALER 6GM INH SCH ×2 (07:34→20:52)
[2019-01-09] MEDS: TIOTROPIUM INHALER/CAPSULE (SPIRIVA) INH SCH (07:35)
[2019-01-09] MEDS: IPRATROPIUM 0.5MG/ALBUTEROL 2.5MG INH SOL UD 3ML (DUONEB)(J7620) NEB SCH ×5 (08:00→23:14)
[2019-01-09] MEDS: HEPARIN SOD (PORCINE) 5000 UNITS/ML VIAL SQ SCH ×2 (09:00→20:19)
[2019-01-09] MEDS: SENOKOT S TAB PO SCH ×2 (09:00→20:18)
[2019-01-09] MEDS: ANALGESIC BALM CRM 120 GM TOP SCH ×4 (09:00→20:19)
[2019-01-09] MEDS: LEVEMIR (INSULIN DETEMIR) 1 UNITS/0.01ML SC SCH (09:00)
[2019-01-09] MEDS: ASCORBIC ACID 500 MG TAB PO SCH ×2 (09:00→20:19)
[2019-01-09] MEDS: ASPIRIN 81 MG ENTERIC TAB PO SCH (11:45)
[2019-01-09] MEDS: CEFDINIR 300 MG CAP (OMNICEF) PO SCH ×2 (11:45→20:10)
[2019-01-09] MEDS: BACTRIM 160MG/800MG DS TAB PO SCH (11:45)
[2019-01-09] MEDS: CETIRIZINE (ZyrTEC) 10 MG TAB PO PRN (11:46)
[2019-01-09] MEDS: guaiFENesin ER 600 MG TAB PO PRN (11:46)
[2019-01-09] MEDS: FERROUS SULFATE 325MG TAB PO SCH ×2 (11:46→20:18)
[2019-01-09] MEDS: TORSEMIDE 20 MG TAB PO SCH (11:46)
[2019-01-09] MEDS: predniSONE 10 MG TAB PO SCH (11:46)
[2019-01-09] MEDS: PANTOPRAZOLE 40MG TAB (PROTONIX) PO SCH (11:46)
[2019-01-09] MEDS: ATORVASTATIN 10 MG TAB PO SCH (11:46)
[2019-01-09 12:32] LABS: BASO % 0.2 % (0.0-1.0); EOS # 0.2 10^3/uL (0.0-0.50); EOS % 1.7 % (0.0-3.0); HEMATOCRIT 31.8 % (36.0-47.0); HEMOGLOBIN 9.9 g/dl (12.0-15.5); LYMPH # 0.7 10^3/uL (1.5-4.5); LYMPH % 6.5 % (24.0-44.0); MEAN CORPUSCULAR HEMOGLOBIN 27.5 pg (27.0-33.0); MEAN CORPUSCULAR HGB CONC 31.1 g/dl (32.0-36.5); MEAN CORPUSCULAR VOLUME 88.3 fl (80.0-96.0); MONO # 0.6 10^3/uL (0.0-0.8); MONO % 5.4 % (0.0-5.0); NEUTROPHILS # 9.3 10^3/uL (1.8-7.7); NEUTROPHILS % 85.5 % (36.0-66.0); PLATELET COUNT, AUTOMATED 351 10^3/uL (150-450); WHITE BLOOD COUNT 10.9 10^3/uL (4.0-10.0)
[2019-01-09 13:06] LABS: ALT/SGPT 27 U/L (12-78); BLOOD UREA NITROGEN 15 MG/DL (7-18); CALCIUM LEVEL 8.8 MG/DL (8.8-10.2); CARBON DIOXIDE LEVEL 32 MEQ/L (21-32); CHLORIDE LEVEL 97 MEQ/L (98-107); CREATININE FOR GFR 0.71 MG/DL (0.55-1.30); GLOMERULAR FILTRATION RATE > 60.0 (>32); GLUCOSE, FASTING 184 MG/DL (70-100); POTASSIUM SERUM 3.6 MEQ/L (3.5-5.1); SODIUM LEVEL 135 MEQ/L (136-145)
[2019-01-09 13:07] LABS: ALBUMIN 2.6 GM/DL (3.2-5.2); BILIRUBIN,TOTAL 0.6 MG/DL (0.2-1.0); C REACTIVE PROTEIN QUANTITATIV 9.61 MG/DL (0.00-0.30); TOTAL PROTEIN 6.8 GM/DL (6.4-8.2)
--- NOTE | 2019-01-09 15:06 | REP ---
Portable chest x-ray: Single view. History: Shortness of breath. Comparison chest x-ray: January 07, 2019. Findings: The patient is status post prior median sternotomy. The patient's mandible overlies the right lung apex. There are advanced degenerative changes in the shoulders. Cardiomegaly is observed. This increased density at the bases suggests bilateral small pleural effusions right a little larger than left. No infiltrate is seen. Impression: Small bilateral pleural effusions suggested. Mild cardiomegaly. Prior sternotomy. Electronically Signed by Chau Paulson MD 01/09/2019 02:58 P
[2019-01-09] MEDS: guaiFENesin ER 600 MG TAB PO SCH (20:10)
[2019-01-10] MEDS: IPRATROPIUM 0.5MG/ALBUTEROL 2.5MG INH SOL UD 3ML (DUONEB)(J7620) NEB SCH ×5 (03:58→20:31)
[2019-01-10 06:00] VITALS: BP 143/67
[2019-01-10] MEDS: HumaLOG INSULIN (NovoLOG) PER UNIT SC SCH ×4 (07:30→21:00)
[2019-01-10] MEDS: SYMBICORT 160/4.5MCG INHALER 6GM INH SCH ×2 (07:45→21:00)
[2019-01-10] MEDS: TIOTROPIUM INHALER/CAPSULE (SPIRIVA) INH SCH (07:45)
[2019-01-10] MEDS: ASCORBIC ACID 500 MG TAB PO SCH ×2 (09:00→21:00)
[2019-01-10] MEDS: LEVEMIR (INSULIN DETEMIR) 1 UNITS/0.01ML SC SCH (09:00)
[2019-01-10] MEDS: ATORVASTATIN 10 MG TAB PO SCH (09:00)
[2019-01-10] MEDS: TORSEMIDE 20 MG TAB PO SCH (09:00)
[2019-01-10] MEDS: guaiFENesin ER 600 MG TAB PO SCH ×2 (09:00→21:00)
[2019-01-10] MEDS: PANTOPRAZOLE 40MG TAB (PROTONIX) PO SCH (09:00)
[2019-01-10] MEDS: CEFDINIR 300 MG CAP (OMNICEF) PO SCH ×2 (09:00→21:00)
[2019-01-10] MEDS: predniSONE 10 MG TAB PO SCH (09:00)
[2019-01-10] MEDS: FERROUS SULFATE 325MG TAB PO SCH ×2 (09:00→21:00)
[2019-01-10] MEDS: HEPARIN SOD (PORCINE) 5000 UNITS/ML VIAL SQ SCH ×2 (09:00→21:00)
[2019-01-10] MEDS: SENOKOT S TAB PO SCH ×2 (09:00→21:00)
[2019-01-10] MEDS: ANALGESIC BALM CRM 120 GM TOP SCH ×4 (09:00→21:00)
--- NOTE | 2019-01-10 13:50 | IPNPDOC ---
Text Note Date of Service The patient was seen on 01/10/19. NOTE Subjective: Denies dyspnea, chest pain or palpitations. Thinks Doctors are still stealing her jewelry. Objective: Vitals: (see below) General: No acute distress, laying comfortably in bed. HEENT: Moist mucous membranes. Neck: No JVD or lymphadenopathy Cardiac: RRR, No murmurs Pulm: Minimal crackles at the bases b/l. No rhonchi. No wheezing. No use of accessory muscles. No conversational dyspnea. Abd: NT/ND + BS Ext: Trace edema BLE. No cyanosis. Distal pulses intact. Labs (see below) Assessment/Plan 1. s/p Acute COPD exacerbation. Improving. Cont nebs. Cont Mucinex. On Spiriva. 2. Chronic anemia with drop in hemoglobin. Status post PRBC. Globus stable at this time. No need for transfusion. Hemodynamically stable. No acute source of bleeding at this time. 3. s/p Sepsis HCAP 2/2 - s/p cefdinir 4. s/p Acute on chronic anemia - s/p 1U PRBC. Anemia panel. No active bleeding at this time. 5. Subclinical hypothyroidism- Synthroid 6. Normocytic anemia stable no need for treatment at this time. 7. History of TIA. On aspirin and statin 8. History of cor pulmonale 9. DM - cont current insulin regimen. 10. History of nephrectomy. Renal function stable. 11. History of Anxiety 12. History of malaria. 13. H/o Dementia 14. History of CAD with stenting. On aspirin, statin 15. History of Pulmonary hypertension. 16. s/p Decompensated diastolic heart failure - on Torsemide, stable. DVT prophylaxis: hep sq Prognosis guarded. Patient continues to refuse many of her meds although was continued to be counseled on compliance. VS,Fishbone, I+O VS, Fishbone, I+O Vital Signs Date Time Temp Pulse Resp B/P (MAP) Pulse Ox O2 Delivery O2 Flow Rate FiO2 01/10/19 06:00 98.2 92 18 143/67 (92) 97 3.0 I&O- Last 24 Hours up to 6 AM 01/10/19 06:00 Intake Total 750 ml Output Total 800 ml Balance -50 ml JAHAIRA CABALLERO MD Jan 10, 2019 13:50
[2019-01-11] MEDS: IPRATROPIUM 0.5MG/ALBUTEROL 2.5MG INH SOL UD 3ML (DUONEB)(J7620) NEB SCH ×7 (01:28→20:59)
[2019-01-11] MEDS: TIOTROPIUM INHALER/CAPSULE (SPIRIVA) INH SCH (07:14)
[2019-01-11] MEDS: SYMBICORT 160/4.5MCG INHALER 6GM INH SCH ×2 (07:15→20:58)
[2019-01-11] MEDS: HumaLOG INSULIN (NovoLOG) PER UNIT SC SCH ×4 (07:30→20:42)
[2019-01-11] MEDS: ANALGESIC BALM CRM 120 GM TOP SCH ×4 (09:00→20:42)
[2019-01-11] MEDS: LEVEMIR (INSULIN DETEMIR) 1 UNITS/0.01ML SC SCH (09:00)
[2019-01-11] MEDS: HEPARIN SOD (PORCINE) 5000 UNITS/ML VIAL SQ SCH ×2 (09:00→20:42)
[2019-01-11] MEDS: LEVALBUTEROL 1.25 MG/0.5 ML CONCENTRATE NEB INH PRN (09:08)
[2019-01-11] MEDS: ASCORBIC ACID 500 MG TAB PO SCH ×2 (10:04→20:41)
[2019-01-11] MEDS: TORSEMIDE 20 MG TAB PO SCH (10:04)
[2019-01-11] MEDS: CEFDINIR 300 MG CAP (OMNICEF) PO SCH ×2 (10:05→20:41)
[2019-01-11] MEDS: ATORVASTATIN 10 MG TAB PO SCH (10:05)
[2019-01-11] MEDS: SENOKOT S TAB PO SCH ×2 (10:05→20:41)
[2019-01-11] MEDS: predniSONE 10 MG TAB PO SCH (10:05)
[2019-01-11] MEDS: guaiFENesin ER 600 MG TAB PO SCH ×2 (10:05→20:41)
[2019-01-11] MEDS: PANTOPRAZOLE 40MG TAB (PROTONIX) PO SCH (10:05)
[2019-01-11] MEDS: ASPIRIN 81 MG ENTERIC TAB PO SCH (10:05)
[2019-01-11] MEDS: BACTRIM 160MG/800MG DS TAB PO SCH (10:05)
[2019-01-11] MEDS: FERROUS SULFATE 325MG TAB PO SCH ×2 (10:05→20:41)
[2019-01-11 14:00] VITALS: BP 155/75
[2019-01-11] MEDS: ALPRAZolam 0.25 MG TAB PO PRN (15:30)
[2019-01-11] MEDS: ACETAMINOPHEN TAB 650MG DOSE (2X325MG) PO PRN (17:21)
[2019-01-12] MEDS: IPRATROPIUM 0.5MG/ALBUTEROL 2.5MG INH SOL UD 3ML (DUONEB)(J7620) NEB SCH ×5 (04:00→20:00)
[2019-01-12 06:00] VITALS: BP 133/63
[2019-01-12] MEDS: HumaLOG INSULIN (NovoLOG) PER UNIT SC SCH ×4 (07:30→21:26)
[2019-01-12] MEDS: TIOTROPIUM INHALER/CAPSULE (SPIRIVA) INH SCH (07:46)
[2019-01-12] MEDS: SYMBICORT 160/4.5MCG INHALER 6GM INH SCH ×2 (07:46→20:15)
[2019-01-12] MEDS: CEFDINIR 300 MG CAP (OMNICEF) PO SCH (09:00)
[2019-01-12] MEDS: ATORVASTATIN 10 MG TAB PO SCH (09:00)
[2019-01-12] MEDS: SENOKOT S TAB PO SCH ×2 (09:00→21:25)
[2019-01-12] MEDS: PANTOPRAZOLE 40MG TAB (PROTONIX) PO SCH (09:00)
[2019-01-12] MEDS: FERROUS SULFATE 325MG TAB PO SCH ×2 (09:00→21:25)
[2019-01-12] MEDS: TORSEMIDE 20 MG TAB PO SCH (09:00)
[2019-01-12] MEDS: guaiFENesin ER 600 MG TAB PO SCH ×2 (09:00→21:25)
[2019-01-12] MEDS: ANALGESIC BALM CRM 120 GM TOP SCH ×4 (09:00→21:26)
[2019-01-12] MEDS: HEPARIN SOD (PORCINE) 5000 UNITS/ML VIAL SQ SCH ×2 (09:00→21:26)
[2019-01-12] MEDS: LEVEMIR (INSULIN DETEMIR) 1 UNITS/0.01ML SC SCH (09:00)
[2019-01-12] MEDS: ASCORBIC ACID 500 MG TAB PO SCH ×2 (09:00→21:26)
[2019-01-12] MEDS: ASPIRIN 81 MG ENTERIC TAB PO SCH (09:59)
[2019-01-12] MEDS: predniSONE 10 MG TAB PO SCH (09:59)
[2019-01-12] MEDS: IPRATROPIUM 0.5MG/ALBUTEROL 2.5MG INH SOL UD 3ML (DUONEB)(J7620) NEB PRN (13:42)
[2019-01-12] MEDS: MORPHINE 10MG/0.5ML ORAL CONCENTRATE SOLUTION U/D SL PRN (23:36)
[2019-01-13] MEDS: IPRATROPIUM 0.5MG/ALBUTEROL 2.5MG INH SOL UD 3ML (DUONEB)(J7620) NEB SCH ×7 (00:01→23:56)
[2019-01-13 06:00] VITALS: BP 135/70
[2019-01-13] MEDS: TIOTROPIUM INHALER/CAPSULE (SPIRIVA) INH SCH (07:26)
[2019-01-13] MEDS: SYMBICORT 160/4.5MCG INHALER 6GM INH SCH ×2 (07:26→20:02)
[2019-01-13] MEDS: HumaLOG INSULIN (NovoLOG) PER UNIT SC SCH ×4 (07:30→21:00)
[2019-01-13] MEDS: ANALGESIC BALM CRM 120 GM TOP SCH ×4 (09:00→21:00)
[2019-01-13] MEDS: FERROUS SULFATE 325MG TAB PO SCH ×2 (09:00→21:00)
[2019-01-13] MEDS: TORSEMIDE 20 MG TAB PO SCH (09:00)
[2019-01-13] MEDS: SENOKOT S TAB PO SCH ×2 (09:00→21:00)
[2019-01-13] MEDS: LEVEMIR (INSULIN DETEMIR) 1 UNITS/0.01ML SC SCH (09:00)
[2019-01-13] MEDS: ATORVASTATIN 10 MG TAB PO SCH (09:00)
[2019-01-13] MEDS: PANTOPRAZOLE 40MG TAB (PROTONIX) PO SCH (09:00)
[2019-01-13] MEDS: HEPARIN SOD (PORCINE) 5000 UNITS/ML VIAL SQ SCH (09:00)
[2019-01-13] MEDS: ASCORBIC ACID 500 MG TAB PO SCH ×2 (09:00→21:00)
[2019-01-13] MEDS: predniSONE 10 MG TAB PO SCH (09:19)
[2019-01-13] MEDS: guaiFENesin ER 600 MG TAB PO SCH ×2 (09:19→21:00)
[2019-01-13] MEDS: ASPIRIN 81 MG ENTERIC TAB PO SCH (09:20)
[2019-01-14] MEDS: IPRATROPIUM 0.5MG/ALBUTEROL 2.5MG INH SOL UD 3ML (DUONEB)(J7620) NEB SCH ×6 (02:30→23:48)
[2019-01-14] MEDS: HumaLOG INSULIN (NovoLOG) PER UNIT SC SCH ×4 (07:30→21:00)
[2019-01-14] MEDS: TIOTROPIUM INHALER/CAPSULE (SPIRIVA) INH SCH (07:35)
[2019-01-14] MEDS: SYMBICORT 160/4.5MCG INHALER 6GM INH SCH ×2 (07:35→19:49)
[2019-01-14] MEDS: LEVEMIR (INSULIN DETEMIR) 1 UNITS/0.01ML SC SCH (07:59)
[2019-01-14] MEDS: ANALGESIC BALM CRM 120 GM TOP SCH ×4 (08:00→21:00)
[2019-01-14] MEDS: PANTOPRAZOLE 40MG TAB (PROTONIX) PO SCH (08:01)
[2019-01-14] MEDS: predniSONE 10 MG TAB PO SCH (08:27)
[2019-01-14] MEDS: guaiFENesin ER 600 MG TAB PO SCH (08:27)
[2019-01-14] MEDS: BACTRIM 160MG/800MG DS TAB PO SCH (08:28)
[2019-01-14] MEDS: ASPIRIN 81 MG ENTERIC TAB PO SCH (08:28)
[2019-01-14] MEDS: TORSEMIDE 20 MG TAB PO SCH ×2 (08:28→11:05)
[2019-01-14] MEDS: ASCORBIC ACID 500 MG TAB PO SCH ×2 (09:48→21:00)
[2019-01-14] MEDS: FERROUS SULFATE 325MG TAB PO SCH ×2 (09:48→21:00)
[2019-01-14] MEDS: ATORVASTATIN 10 MG TAB PO SCH (09:48)
[2019-01-14] MEDS: SENOKOT S TAB PO SCH ×2 (09:48→21:00)
[2019-01-14] MEDS: ALPRAZolam 0.25 MG TAB PO PRN (10:25)
[2019-01-14 12:38] LABS: HEMATOCRIT 32.2 % (36.0-47.0); HEMOGLOBIN 10.2 g/dl (12.0-15.5); MEAN CORPUSCULAR HEMOGLOBIN 27.2 pg (27.0-33.0); MEAN CORPUSCULAR HGB CONC 31.7 g/dl (32.0-36.5); MEAN CORPUSCULAR VOLUME 85.9 fl (80.0-96.0); PLATELET COUNT, AUTOMATED 349 10^3/uL (150-450); RED BLOOD COUNT 3.75 10^6/uL (4.00-5.40); WHITE BLOOD COUNT 16.5 10^3/uL (4.0-10.0)
[2019-01-14 12:54] LABS: INR 0.96; PROTHROMBIN TIME 12.9 SECONDS (12.1-14.4)
[2019-01-14 13:38] LABS: BLOOD UREA NITROGEN 18 MG/DL (7-18); CALCIUM LEVEL 8.9 MG/DL (8.8-10.2); CARBON DIOXIDE LEVEL 31 MEQ/L (21-32); CHLORIDE LEVEL 98 MEQ/L (98-107); CREATININE FOR GFR 0.75 MG/DL (0.55-1.30); GLOMERULAR FILTRATION RATE > 60.0 (>32); GLUCOSE, FASTING 231 MG/DL (70-100); MAGNESIUM LEVEL 1.7 MG/DL (1.8-2.4); POTASSIUM SERUM 3.5 MEQ/L (3.5-5.1); SODIUM LEVEL 137 MEQ/L (136-145)
[2019-01-14] MEDS: LEVALBUTEROL 1.25 MG/0.5 ML CONCENTRATE NEB INH PRN (22:31)
[2019-01-15] MEDS: IPRATROPIUM 0.5MG/ALBUTEROL 2.5MG INH SOL UD 3ML (DUONEB)(J7620) NEB SCH ×6 (04:00→23:40)
[2019-01-15] MEDS: TIOTROPIUM INHALER/CAPSULE (SPIRIVA) INH SCH (07:28)
[2019-01-15] MEDS: SYMBICORT 160/4.5MCG INHALER 6GM INH SCH ×2 (07:29→20:19)
[2019-01-15] MEDS ORDERED: MAGNESIUM OXIDE 400 MG TAB (MAG-OX) PO ONE (08:30)
[2019-01-15] MEDS ORDERED: POTASSIUM CHLORIDE 10 MEQ SR TABLET PO ONE (08:30)
[2019-01-15] MEDS: HumaLOG INSULIN (NovoLOG) PER UNIT SC SCH ×4 (08:52→21:00)
[2019-01-15] MEDS: LEVEMIR (INSULIN DETEMIR) 1 UNITS/0.01ML SC SCH (08:52)
[2019-01-15] MEDS: ANALGESIC BALM CRM 120 GM TOP SCH ×4 (08:53→17:00)
[2019-01-15] MEDS: ALPRAZolam 0.25 MG TAB PO PRN ×2 (10:09→23:41)
[2019-01-15] MEDS: ASPIRIN 81 MG ENTERIC TAB PO SCH (10:09)
[2019-01-15] MEDS: predniSONE 10 MG TAB PO SCH (10:09)
[2019-01-15] MEDS: TORSEMIDE 20 MG TAB PO SCH (10:10)
[2019-01-15] MEDS: ATORVASTATIN 10 MG TAB PO SCH (10:11)
[2019-01-15] MEDS: FERROUS SULFATE 325MG TAB PO SCH ×2 (10:11→21:00)
[2019-01-15] MEDS: PANTOPRAZOLE 40MG TAB (PROTONIX) PO SCH (10:12)
[2019-01-15] MEDS: ASCORBIC ACID 500 MG TAB PO SCH ×2 (10:12→21:00)
[2019-01-15] MEDS: SENOKOT S TAB PO SCH ×2 (10:12→21:00)
[2019-01-15] MEDS: LEVALBUTEROL 1.25 MG/0.5 ML CONCENTRATE NEB INH PRN (14:07)
[2019-01-15] MEDS: MORPHINE 10MG/0.5ML ORAL CONCENTRATE SOLUTION U/D SL PRN ×2 (16:52→22:35)
[2019-01-16] MEDS: NITROGLYCERIN 0.4 MG SUBL TABLET SL PRN (00:10)
[2019-01-16] MEDS: ONDANSETRON 4 MG ORAL DISINTEGRATING TAB (Q0162 PER 1MG) PO PRN (00:36)
[2019-01-16 01:42] LABS: CPK CREATINE PHOSPHOKINASE 48 U/L (26-192); MB/CK RELATIVE INDEX 6.25 (< OR =4); TROPONIN I < 0.02 NG/ML (< 0.10)
--- NOTE | 2019-01-16 03:04 | REPVR ---
EXAM: XR Chest, 1 View EXAM DATE/TIME: 01/16/2019 12:56 AM CLINICAL HISTORY: 83 years old, female; Signs and symptoms; Cough and shortness of breath; Additional info: SOB, cough TECHNIQUE: XR of the chest, 1 view. COMPARISON: CR Chest, 1 view 01/09/2019 2:31 PM FINDINGS: Lungs: Bibasilar densities representing atelectasis/effusions. Hyperinflated emphysematous lungs. 4 mm calcified density in the left lower lobe likely granuloma. Pleural space: See above. No pneumothorax. Heart/Mediastinum: Cardiomegaly. Vasculature: Atherosclerosis. Bones/joints: Status post sternotomy. Degenerative changes IMPRESSION: Bibasilar densities representing atelectasis/effusions versus pneumonia/effusions. Hyperinflated emphysematous lungs. Electronically signed by: Devi Baeza On 01/16/2019 03:04:01 AM
[2019-01-16] MEDS: IPRATROPIUM 0.5MG/ALBUTEROL 2.5MG INH SOL UD 3ML (DUONEB)(J7620) NEB SCH ×4 (04:00→11:25)
[2019-01-16 06:00] VITALS: BP 133/63
[2019-01-16] MEDS: HumaLOG INSULIN (NovoLOG) PER UNIT SC SCH ×4 (07:30→21:00)
[2019-01-16] MEDS: SYMBICORT 160/4.5MCG INHALER 6GM INH SCH ×2 (07:38→21:39)
[2019-01-16] MEDS: TIOTROPIUM INHALER/CAPSULE (SPIRIVA) INH SCH (07:38)
[2019-01-16] MEDS: ATORVASTATIN 10 MG TAB PO SCH ×2 (09:00→10:38)
[2019-01-16] MEDS: BACTRIM 160MG/800MG DS TAB PO SCH (09:00)
[2019-01-16] MEDS: ASCORBIC ACID 500 MG TAB PO SCH ×2 (09:00→21:00)
[2019-01-16] MEDS: SENOKOT S TAB PO SCH ×3 (09:00→21:00)
[2019-01-16] MEDS: ANALGESIC BALM CRM 120 GM TOP SCH ×4 (09:00→21:00)
[2019-01-16] MEDS: LEVEMIR (INSULIN DETEMIR) 1 UNITS/0.01ML SC SCH (09:00)
[2019-01-16] MEDS: TORSEMIDE 20 MG TAB PO SCH (10:37)
[2019-01-16] MEDS: ASPIRIN 81 MG ENTERIC TAB PO SCH (10:37)
[2019-01-16] MEDS: predniSONE 10 MG TAB PO SCH (10:37)
[2019-01-16] MEDS: PANTOPRAZOLE 40MG TAB (PROTONIX) PO SCH (10:38)
[2019-01-16] MEDS: FERROUS SULFATE 325MG TAB PO SCH ×2 (10:38→21:00)
[2019-01-16] MEDS: IPRATROPIUM 0.5MG/ALBUTEROL 2.5MG INH SOL UD 3ML (DUONEB)(J7620) NEB PRN ×2 (16:10→21:40)
[2019-01-17] MEDS: HumaLOG INSULIN (NovoLOG) PER UNIT SC SCH ×4 (07:30→20:48)
[2019-01-17] MEDS: LEVEMIR (INSULIN DETEMIR) 1 UNITS/0.01ML SC SCH (08:36)
[2019-01-17] MEDS: SYMBICORT 160/4.5MCG INHALER 6GM INH SCH ×2 (08:37→20:40)
[2019-01-17] MEDS: TIOTROPIUM INHALER/CAPSULE (SPIRIVA) INH SCH (08:37)
[2019-01-17] MEDS ORDERED: predniSONE 10 MG TAB PO SCH (09:00)
[2019-01-17] MEDS: ASPIRIN 81 MG ENTERIC TAB PO SCH (09:00)
[2019-01-17] MEDS: ANALGESIC BALM CRM 120 GM TOP SCH ×4 (09:00→20:49)
[2019-01-17] MEDS: TORSEMIDE 20 MG TAB PO SCH (09:00)
[2019-01-17] MEDS: PANTOPRAZOLE 40MG TAB (PROTONIX) PO SCH (09:00)
[2019-01-17] MEDS: predniSONE 10 MG TAB PO SCH (09:00)
[2019-01-17] MEDS: SENOKOT S TAB PO SCH ×2 (09:00→20:48)
[2019-01-17] MEDS: ATORVASTATIN 10 MG TAB PO SCH (09:00)
[2019-01-17] MEDS: FERROUS SULFATE 325MG TAB PO SCH ×2 (09:00→20:48)
[2019-01-17] MEDS: ASCORBIC ACID 500 MG TAB PO SCH ×2 (09:00→20:48)
[2019-01-17] MEDS ORDERED: IPRATROPIUM 0.5MG/ALBUTEROL 2.5MG INH SOL UD 3ML (DUONEB)(J7620) NEB ONE (13:30)
[2019-01-17] MEDS: LEVALBUTEROL 1.25 MG/0.5 ML CONCENTRATE NEB INH PRN ×2 (13:32→16:26)
[2019-01-17 14:29] LABS: HEMATOCRIT 33.5 % (36.0-47.0); HEMOGLOBIN 10.8 g/dl (12.0-15.5); MEAN CORPUSCULAR HEMOGLOBIN 27.5 pg (27.0-33.0); MEAN CORPUSCULAR HGB CONC 32.2 g/dl (32.0-36.5); MEAN CORPUSCULAR VOLUME 85.2 fl (80.0-96.0); PLATELET COUNT, AUTOMATED 418 10^3/uL (150-450); RED BLOOD COUNT 3.93 10^6/uL (4.00-5.40); WHITE BLOOD COUNT 14.6 10^3/uL (4.0-10.0)
[2019-01-17 14:43] LABS: C REACTIVE PROTEIN QUANTITATIV 0.98 MG/DL (0.00-0.30); CALCIUM LEVEL 8.5 MG/DL (8.8-10.2); CREATININE FOR GFR 1.19 MG/DL (0.55-1.30); GLOMERULAR FILTRATION RATE 45.9 (>32); MAGNESIUM LEVEL 1.7 MG/DL (1.8-2.4); POTASSIUM SERUM 3.8 MEQ/L (3.5-5.1)
--- NOTE | 2019-01-17 15:35 | REP ---
Chest two views HISTORY: Shortness of breath Comparison: 01/16/2019 Parenchymal densities are present in the lower lobes consistent with bibasilar atelectasis or infiltrates. Small bilateral pleural effusions are present. The heart is normal in size. The pulmonary vasculature is normal in appearance. Degenerative changes present in the shoulders and spine. The bony structure is osteopenic. IMPRESSION: 1. Bibasilar atelectasis or infiltrates. 2. Small bilateral pleural effusions. Electronically Signed by Jaden Bright MD 01/17/2019 03:26 P
[2019-01-17] MEDS ORDERED: MAGNESIUM OXIDE 400 MG TAB (MAG-OX) PO ONE (17:00)
--- NOTE | 2019-01-17 18:00 | IPN ---
DATE: 01/17/2019 Patient seen and examined. Continued to report dyspnea and denies any chest pain, pressure or discomfort. Reported cough. Patient is a very poor historian, was very poorly compliant and has multiple times refused medication. VITAL SIGNS: Temperature 98.4, pulse 84, respirations 24, blood pressure 133/63, pulse ox 100% on 3 liters. LABORATORY DATA: WBC 14.6, hemoglobin 10.8, hematocrit 33.5, platelet count 418, sodium 136, potassium 3.8, chloride 97, bicarbonate 32, BUN 28, creatinine 1.19, C-reactive protein 0.98. PHYSICAL EXAMINATION: GENERAL: Patient is alert, mild dyspnea in no acute distress. HEENT: Normocephalic, atraumatic. Moist mucous membrane. NECK: Supple. CARDIAC: Regular S1, S2. PULMONARY: Mild tachypnea, minimal rhonchi. ABDOMEN: Soft and nontender. EXTREMITIES: 1+ edema bilateral lower extremities. Venous stasis skin changes. ASSESSMENT AND PLAN: This is an 83-year-old female patient with underlying medical history of end-stage COPD, anxiety, GERD, past history of MRSA on suppressive Bactrim, pulmonary artery hypertension, chronic right bundle branch block, history of TIA, history of malaria, history of dysentery, osteopenia, diverticulosis, migraines, coronary artery disease with PA and CABG, history of pleural effusion with left ventricular diastolic dysfunction, ejection fraction 85%. Lives at home with son with dementia. Initially admitted for shortness of breath, currently ALC. PROBLEMS: 1. Shortness of breath acute COPD exacerbation. Patient has been on alternative level of care intermittently on cefdinir and intermittently increasing steroids for worsening shortness of breath. Currently prednisone has been increased. Chest x-ray appreciated. C-reactive protein appreciated. Continue nebulizer treatments, Spiriva, Symbicort, taper prednisone as tolerated. Suppressive Bactrim was ordered. Patient is steroid dependant and very argumentative and very poorly compliant. Has refused multiple occasional inhalers. 2. Acute kidney injury resolved. 3. Health care associated pneumonia. Patient currently is afebrile. Suppressive Bactrim. Completed a course of Cefdinir. Will follow and c-reactive protein appreciated. 4. Chronic diastolic congestive heart failure. Continue diuresis at this time. Encourage compliance and daily weight. 5. Chronic normocytic anemia intermittent transfusions. H and H appreciated. 6. Diabetes. Consistent carbohydrate diet. Insulin as ordered, although patient often times refused insulin. 7. History of left lower extremity DVT. Not on anticoagulation, supportive care. 8. DVT prophylaxis as mentioned above. Heparin subcu. 9. History of TIA. Continue aspirin and statin. 10. Advanced dementia. Supportive care. Patient has delusional thoughts. laboratory worker consulted, pending placement and guardianship. 11. History of pulmonary artery hypertension and cor pulmonale. Supportive care. Diuresis as above. Treatment as above. 12. Anxiety. Continue current medication. 13. Coronary artery disease with stent and CABG. Continue aspirin and statin. 14. History of malaria. 15. Chronic back pain. Continue current medication. DISPOSITION: Pending social media sr strategy manager. Patient currently alternative level of care. Prednisone has been increased, taper as tolerated.
[2019-01-17] MEDS: MORPHINE 10MG/0.5ML ORAL CONCENTRATE SOLUTION U/D SL PRN (20:35)
[2019-01-17] MEDS: NITROGLYCERIN 0.4 MG SUBL TABLET SL PRN ×2 (20:47→20:53)
[2019-01-17 20:53] VITALS: BP 130/66
[2019-01-18 06:00] VITALS: BP 123/59
[2019-01-18] MEDS: HumaLOG INSULIN (NovoLOG) PER UNIT SC SCH ×4 (07:30→21:00)
[2019-01-18] MEDS: SYMBICORT 160/4.5MCG INHALER 6GM INH SCH ×2 (07:58→20:12)
[2019-01-18] MEDS: TIOTROPIUM INHALER/CAPSULE (SPIRIVA) INH SCH (07:58)
[2019-01-18] MEDS: BACTRIM 160MG/800MG DS TAB PO SCH (09:00)
[2019-01-18] MEDS: PANTOPRAZOLE 40MG TAB (PROTONIX) PO SCH (09:00)
[2019-01-18] MEDS: ASPIRIN 81 MG ENTERIC TAB PO SCH (09:00)
[2019-01-18] MEDS: LEVEMIR (INSULIN DETEMIR) 1 UNITS/0.01ML SC SCH (09:00)
[2019-01-18] MEDS: ATORVASTATIN 10 MG TAB PO SCH (09:00)
[2019-01-18] MEDS ORDERED: predniSONE 20 MG TAB PO SCH (09:00)
[2019-01-18] MEDS: SENOKOT S TAB PO SCH ×2 (09:00→21:00)
[2019-01-18] MEDS: FERROUS SULFATE 325MG TAB PO SCH ×2 (09:00→21:00)
[2019-01-18] MEDS: ANALGESIC BALM CRM 120 GM TOP SCH ×4 (09:00→21:00)
[2019-01-18] MEDS: ASCORBIC ACID 500 MG TAB PO SCH ×2 (09:00→21:00)
[2019-01-18] MEDS: TORSEMIDE 20 MG TAB PO SCH (09:00)
[2019-01-18] MEDS: IPRATROPIUM 0.5MG/ALBUTEROL 2.5MG INH SOL UD 3ML (DUONEB)(J7620) NEB PRN (20:13)
[2019-01-19 06:00] VITALS: BP 134/73
[2019-01-19] MEDS: TIOTROPIUM INHALER/CAPSULE (SPIRIVA) INH SCH (07:20)
[2019-01-19] MEDS: SYMBICORT 160/4.5MCG INHALER 6GM INH SCH ×2 (07:20→21:00)
[2019-01-19] MEDS: HumaLOG INSULIN (NovoLOG) PER UNIT SC SCH ×4 (07:30→21:00)
[2019-01-19] MEDS: LEVEMIR (INSULIN DETEMIR) 1 UNITS/0.01ML SC SCH (07:47)
[2019-01-19] MEDS: ATORVASTATIN 10 MG TAB PO SCH (09:00)
[2019-01-19] MEDS: ASCORBIC ACID 500 MG TAB PO SCH ×2 (09:00→21:00)
[2019-01-19] MEDS: TORSEMIDE 20 MG TAB PO SCH (09:00)
[2019-01-19] MEDS: SENOKOT S TAB PO SCH ×2 (09:00→21:00)
[2019-01-19] MEDS: FERROUS SULFATE 325MG TAB PO SCH ×2 (09:00→21:00)
[2019-01-19] MEDS: PANTOPRAZOLE 40MG TAB (PROTONIX) PO SCH (09:00)
[2019-01-19] MEDS: ANALGESIC BALM CRM 120 GM TOP SCH ×4 (09:00→21:00)
[2019-01-19] MEDS: predniSONE 10 MG TAB PO SCH (10:05)
[2019-01-19] MEDS: ASPIRIN 81 MG ENTERIC TAB PO SCH (10:05)
[2019-01-20 06:00] VITALS: BP 139/62
[2019-01-20] MEDS: HumaLOG INSULIN (NovoLOG) PER UNIT SC SCH ×4 (07:30→21:00)
[2019-01-20] MEDS: LEVEMIR (INSULIN DETEMIR) 1 UNITS/0.01ML SC SCH (07:49)
[2019-01-20] MEDS: TORSEMIDE 20 MG TAB PO SCH (09:00)
[2019-01-20] MEDS: ATORVASTATIN 10 MG TAB PO SCH (09:00)
[2019-01-20] MEDS: FERROUS SULFATE 325MG TAB PO SCH ×2 (09:00→21:00)
[2019-01-20] MEDS: ASCORBIC ACID 500 MG TAB PO SCH ×2 (09:00→21:00)
[2019-01-20] MEDS: PANTOPRAZOLE 40MG TAB (PROTONIX) PO SCH (09:00)
[2019-01-20] MEDS: ANALGESIC BALM CRM 120 GM TOP SCH ×4 (09:00→21:00)
[2019-01-20] MEDS: SENOKOT S TAB PO SCH ×2 (09:00→21:00)
[2019-01-20] MEDS: predniSONE 10 MG TAB PO SCH (09:17)
[2019-01-20] MEDS: ASPIRIN 81 MG ENTERIC TAB PO SCH (09:17)
[2019-01-20] MEDS: TIOTROPIUM INHALER/CAPSULE (SPIRIVA) INH SCH (09:32)
[2019-01-20] MEDS: SYMBICORT 160/4.5MCG INHALER 6GM INH SCH ×2 (09:32→21:00)
[2019-01-20] MEDS: LEVALBUTEROL 1.25 MG/0.5 ML CONCENTRATE NEB INH PRN (14:09)
[2019-01-20 15:04] LABS: CPK CREATINE PHOSPHOKINASE 39 U/L (26-192); MB/CK RELATIVE INDEX 6.67 (< OR =4); TROPONIN I < 0.02 NG/ML (< 0.10)
[2019-01-21 06:00] VITALS: BP 168/72
[2019-01-21] MEDS: HumaLOG INSULIN (NovoLOG) PER UNIT SC SCH ×4 (07:30→21:00)
[2019-01-21] MEDS: IPRATROPIUM 0.5MG/ALBUTEROL 2.5MG INH SOL UD 3ML (DUONEB)(J7620) NEB PRN ×2 (07:41→14:09)
[2019-01-21] MEDS: TIOTROPIUM INHALER/CAPSULE (SPIRIVA) INH SCH (07:41)
[2019-01-21] MEDS: SYMBICORT 160/4.5MCG INHALER 6GM INH SCH ×2 (07:41→19:48)
[2019-01-21] MEDS: predniSONE 10 MG TAB PO SCH (08:47)
[2019-01-21] MEDS: ASPIRIN 81 MG ENTERIC TAB PO SCH (08:47)
[2019-01-21] MEDS: SENOKOT S TAB PO SCH ×2 (08:48→21:00)
[2019-01-21] MEDS: ATORVASTATIN 10 MG TAB PO SCH (08:48)
[2019-01-21] MEDS: BACTRIM 160MG/800MG DS TAB PO SCH (08:48)
[2019-01-21] MEDS: TORSEMIDE 20 MG TAB PO SCH (08:48)
[2019-01-21] MEDS: PANTOPRAZOLE 40MG TAB (PROTONIX) PO SCH (08:48)
[2019-01-21] MEDS: FERROUS SULFATE 325MG TAB PO SCH ×2 (08:48→21:00)
[2019-01-21] MEDS: ANALGESIC BALM CRM 120 GM TOP SCH ×4 (08:49→21:00)
[2019-01-21] MEDS: LEVEMIR (INSULIN DETEMIR) 1 UNITS/0.01ML SC SCH (08:49)
[2019-01-21] MEDS: ASCORBIC ACID 500 MG TAB PO SCH ×2 (08:49→21:00)
[2019-01-21] MEDS: LEVALBUTEROL 1.25 MG/0.5 ML CONCENTRATE NEB INH PRN (19:48)
[2019-01-22] MEDS: MORPHINE 10MG/0.5ML ORAL CONCENTRATE SOLUTION U/D SL PRN (02:52)
[2019-01-22 06:00] VITALS: BP 141/64
[2019-01-22] MEDS: HumaLOG INSULIN (NovoLOG) PER UNIT SC SCH ×4 (07:30→20:28)
[2019-01-22] MEDS: SYMBICORT 160/4.5MCG INHALER 6GM INH SCH ×2 (07:41→21:00)
[2019-01-22] MEDS: TIOTROPIUM INHALER/CAPSULE (SPIRIVA) INH SCH (07:41)
[2019-01-22] MEDS: LEVEMIR (INSULIN DETEMIR) 1 UNITS/0.01ML SC SCH (09:00)
[2019-01-22] MEDS: ATORVASTATIN 10 MG TAB PO SCH (09:00)
[2019-01-22] MEDS: ANALGESIC BALM CRM 120 GM TOP SCH ×4 (09:00→20:29)
[2019-01-22] MEDS: PANTOPRAZOLE 40MG TAB (PROTONIX) PO SCH (09:00)
[2019-01-22] MEDS: FERROUS SULFATE 325MG TAB PO SCH ×2 (09:00→20:28)
[2019-01-22] MEDS: SENOKOT S TAB PO SCH ×2 (09:00→20:28)
[2019-01-22] MEDS: ASCORBIC ACID 500 MG TAB PO SCH ×2 (09:00→20:28)
[2019-01-22] MEDS: TORSEMIDE 20 MG TAB PO SCH (09:00)
[2019-01-22] MEDS: IPRATROPIUM 0.5MG/ALBUTEROL 2.5MG INH SOL UD 3ML (DUONEB)(J7620) NEB PRN (11:25)
[2019-01-22] MEDS: predniSONE 10 MG TAB PO SCH (12:17)
[2019-01-22] MEDS: ASPIRIN 81 MG ENTERIC TAB PO SCH (12:17)
--- NOTE | 2019-01-23 00:30 | ECGEPIP ---
Stationary ECG Study [facility] Test Date: 2019-01-20 Pat Name: MARLENE BANG Department: Room: [place] [address] Gender: F Clinical Nurse Leader: ERICA : 1935 Requested By: RADHA ALVARES Order Number: [id number] Reading MD: Phillip Sandhu Measurements Intervals [place] Rate: 97 P: 82 CO: 166 QRS: -51 QRSD: 126 T: 52 QT: 350 QTc: 447 Interpretive Statements SINUS RHYTHM WITH OCCASIONAL VENTRICULAR PREMATURE COMPLEXES LEFT AXIS DEVIATION RIGHT BUNDLE BRANCH BLOCK LEFT ANTERIOR FASCICULAR BLOCK COMPARED TO THE LAST 3 TRACINGS, NO REMARKABLE CHANGES BUT THE LEFT ANTERIOR HEMIBLOCK PATTERN Electronically Signed On 01-23-2019 0:30:22 EDT by Phillip Sandhu
[2019-01-23] MEDS: HumaLOG INSULIN (NovoLOG) PER UNIT SC SCH ×4 (07:30→21:00)
[2019-01-23] MEDS: SYMBICORT 160/4.5MCG INHALER 6GM INH SCH ×2 (08:04→19:33)
[2019-01-23] MEDS: TIOTROPIUM INHALER/CAPSULE (SPIRIVA) INH SCH (08:04)
[2019-01-23] MEDS: LEVEMIR (INSULIN DETEMIR) 1 UNITS/0.01ML SC SCH (09:00)
[2019-01-23] MEDS: TORSEMIDE 20 MG TAB PO SCH (09:00)
[2019-01-23] MEDS: FERROUS SULFATE 325MG TAB PO SCH ×2 (09:00→21:00)
[2019-01-23] MEDS: SENOKOT S TAB PO SCH ×2 (09:00→21:00)
[2019-01-23] MEDS: PANTOPRAZOLE 40MG TAB (PROTONIX) PO SCH (09:00)
[2019-01-23] MEDS: predniSONE 10 MG TAB PO SCH (09:00)
[2019-01-23] MEDS: BACTRIM 160MG/800MG DS TAB PO SCH (09:00)
[2019-01-23] MEDS: ANALGESIC BALM CRM 120 GM TOP SCH ×4 (09:00→21:00)
[2019-01-23] MEDS: ASCORBIC ACID 500 MG TAB PO SCH ×2 (09:00→21:00)
[2019-01-23] MEDS: ASPIRIN 81 MG ENTERIC TAB PO SCH (09:00)
[2019-01-23] MEDS: ATORVASTATIN 10 MG TAB PO SCH (09:00)
[2019-01-23] MEDS: LEVALBUTEROL 1.25 MG/0.5 ML CONCENTRATE NEB INH PRN (13:45)
--- NOTE | 2019-01-23 18:40 | IPN ---
DATE: 01/23/2019 Patient currently alternate level of care. Seen and examined. Reported chronic shortness of breath. 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 Patient demanded better food and wanted the cafeteria to send up some food that is to her liking. Denies any chest pain, pressure or discomfort. VITAL SIGNS: Temperature 97.4, pulse 83, respirations 24, blood pressure 141/64, pulse oximetry 96% on 2 liters nasal cannula. LABORATORY: WBC 14.6, hemoglobin and hematocrit 10.8/33.5, platelets 418. Chemistry: Sodium 136, potassium 3.8, chloride 97, bicarbonate 32, BUN 28, creatinine 1.19. PHYSICAL EXAMINATION: GENERAL: The patient alert, in no acute distress. HEENT: Normocephalic, atraumatic. Moist mucous membranes. NECK: Supple. CARDIAC: Regular S1, S2. PULMONARY: Mild tachypneic. Diminished breath sounds bilateral. Minimal rhonchi. ABDOMEN: Soft, nontender. EXTREMITIES: Trace edema bilateral lower extremities. Venous stasis skin changes. ASSESSMENT AND PLAN: This is an 83-year-old female patient with underlying medical history of end-stage chronic obstructive pulmonary disease (COPD), anxiety, gastroesophageal reflux disease (GERD), past history of Methicillin-resistant Staphylococcus aureus (MRSA) on suppressive Bactrim, pulmonary artery hypertension, chronic right bundle branch block, history of transient ischemic attack (TIA), history of malaria, history of dysentery, osteopenia, diverticulosis, migraine, coronary arterial disease with myocardial infarction ([place]) and coronary artery bypass graft (CABG), history of pleural effusion with left ventricular diastolic dysfunction, ejection fraction 85%, lives at home with son with dementia. Initially admitted for shortness of breath. Currently alternate level of care. PROBLEMS: 1. Shortness of breath. Acute COPD exacerbation. Patient has been on alternate level of care. Intermittently on cefdinir and intermittently have to increase the steroids. Currently off of cefdinir. Steroid taper as tolerated. Patient chronically steroid dependent. Will taper prednisone to home dose. Chest x-ray appreciated. C-reactive protein, nebulizer treatment. Symbicort, Spiriva. Suppressive Bactrim. Patient poorly compliant. Has refused medication on multiple occasions. 2. Acute kidney injury, resolved. 3. Healthcare associated pneumonia, treated. Afebrile. Will follow closely. 4. Chronic diastolic congestive heart failure. Continue diuresis. Encourage compliance. Daily weight. 5. Chronic normocytic anemia. Intermittent transfusion. Hemoglobin and hematocrit appreciated. Monitor hemoglobin and hematocrit. 6. Diabetes. Consistent carbohydrate diet. Insulin as ordered via protocol. The patient intermittently refuses insulin. 7. History of left lower extremity deep venous thrombosis (DVT). Not on anticoagulation. 8. History of transient ischemic attack (TIA). Continue aspirin, statin. 9. Dementia. Supportive care. Patient has delusional thoughts. social worker assistant consult. Pending placement. 10. History of pulmonary artery hypertension and cor pulmonale. Supportive care. Diuresis as mentioned above. Treatment as above. 11. Anxiety. Continue current medication. 12. Coronary artery disease with stents and CABG. Continue aspirin and statin. 13. History of malaria. Supportive care. 14. Chronic back pain. Continue current medication. 15. DVT prophylaxis. Heparin subcutaneous. DISPOSITION: Pending social work. Process is initiated to give patient guardianship.
[2019-01-24] MEDS: IPRATROPIUM 0.5MG/ALBUTEROL 2.5MG INH SOL UD 3ML (DUONEB)(J7620) NEB PRN (04:37)
[2019-01-24 06:00] VITALS: BP 150/67
[2019-01-24] MEDS: HumaLOG INSULIN (NovoLOG) PER UNIT SC SCH ×4 (07:30→21:00)
[2019-01-24] MEDS: TIOTROPIUM INHALER/CAPSULE (SPIRIVA) INH SCH (07:57)
[2019-01-24] MEDS: SYMBICORT 160/4.5MCG INHALER 6GM INH SCH ×2 (07:58→20:41)
[2019-01-24] MEDS: predniSONE 20 MG TAB PO SCH (08:53)
[2019-01-24] MEDS: ASPIRIN 81 MG ENTERIC TAB PO SCH (08:53)
[2019-01-24] MEDS: TORSEMIDE 20 MG TAB PO SCH (08:53)
[2019-01-24] MEDS: FERROUS SULFATE 325MG TAB PO SCH ×2 (08:55→21:00)
[2019-01-24] MEDS: ATORVASTATIN 10 MG TAB PO SCH (08:56)
[2019-01-24] MEDS: PANTOPRAZOLE 40MG TAB (PROTONIX) PO SCH (08:56)
[2019-01-24] MEDS: ASCORBIC ACID 500 MG TAB PO SCH ×2 (08:56→21:00)
[2019-01-24] MEDS: SENOKOT S TAB PO SCH ×2 (08:56→21:00)
[2019-01-24] MEDS: LEVEMIR (INSULIN DETEMIR) 1 UNITS/0.01ML SC SCH (08:56)
[2019-01-24] MEDS: ANALGESIC BALM CRM 120 GM TOP SCH ×4 (08:57→21:00)
[2019-01-24] MEDS: LEVALBUTEROL 1.25 MG/0.5 ML CONCENTRATE NEB INH PRN (20:41)
[2019-01-25] MEDS: LEVALBUTEROL 1.25 MG/0.5 ML CONCENTRATE NEB INH PRN ×4 (04:11→15:18)
[2019-01-25] MEDS: HumaLOG INSULIN (NovoLOG) PER UNIT SC SCH ×4 (07:30→21:47)
[2019-01-25] MEDS: TIOTROPIUM INHALER/CAPSULE (SPIRIVA) INH SCH (08:15)
[2019-01-25] MEDS: SYMBICORT 160/4.5MCG INHALER 6GM INH SCH ×2 (08:16→20:20)
[2019-01-25] MEDS: ASPIRIN 81 MG ENTERIC TAB PO SCH (09:00)
[2019-01-25] MEDS: ATORVASTATIN 10 MG TAB PO SCH (09:00)
[2019-01-25] MEDS: FERROUS SULFATE 325MG TAB PO SCH ×2 (09:00→21:46)
[2019-01-25] MEDS: LEVEMIR (INSULIN DETEMIR) 1 UNITS/0.01ML SC SCH (09:00)
[2019-01-25] MEDS: TORSEMIDE 20 MG TAB PO SCH (09:00)
[2019-01-25] MEDS: PANTOPRAZOLE 40MG TAB (PROTONIX) PO SCH (09:00)
[2019-01-25] MEDS: ASCORBIC ACID 500 MG TAB PO SCH ×2 (09:00→21:47)
[2019-01-25] MEDS: predniSONE 20 MG TAB PO SCH (09:00)
[2019-01-25] MEDS: ANALGESIC BALM CRM 120 GM TOP SCH ×4 (09:00→21:47)
[2019-01-25] MEDS: SENOKOT S TAB PO SCH ×2 (09:00→21:47)
[2019-01-25] MEDS: BACTRIM 160MG/800MG DS TAB PO SCH (09:00)
[2019-01-25] MEDS: IPRATROPIUM 0.5MG/ALBUTEROL 2.5MG INH SOL UD 3ML (DUONEB)(J7620) NEB PRN (19:47)
[2019-01-26 00:26] VITALS: BP 144/64
[2019-01-26] MEDS: IPRATROPIUM 0.5MG/ALBUTEROL 2.5MG INH SOL UD 3ML (DUONEB)(J7620) NEB PRN ×2 (05:29→20:30)
[2019-01-26 06:00] VITALS: BP 158/69
[2019-01-26] MEDS: HumaLOG INSULIN (NovoLOG) PER UNIT SC SCH ×4 (07:30→21:46)
[2019-01-26] MEDS: LEVALBUTEROL 1.25 MG/0.5 ML CONCENTRATE NEB INH PRN ×3 (08:06→15:34)
[2019-01-26] MEDS: SYMBICORT 160/4.5MCG INHALER 6GM INH SCH ×2 (08:06→20:46)
[2019-01-26] MEDS: TIOTROPIUM INHALER/CAPSULE (SPIRIVA) INH SCH (08:06)
[2019-01-26] MEDS: TORSEMIDE 20 MG TAB PO SCH (09:00)
[2019-01-26] MEDS: FERROUS SULFATE 325MG TAB PO SCH ×2 (09:00→21:45)
[2019-01-26] MEDS: SENOKOT S TAB PO SCH ×2 (09:00→21:46)
[2019-01-26] MEDS: LEVEMIR (INSULIN DETEMIR) 1 UNITS/0.01ML SC SCH (09:00)
[2019-01-26] MEDS: ASCORBIC ACID 500 MG TAB PO SCH ×2 (09:00→21:46)
[2019-01-26] MEDS: ATORVASTATIN 10 MG TAB PO SCH (09:00)
[2019-01-26] MEDS: PANTOPRAZOLE 40MG TAB (PROTONIX) PO SCH (09:00)
[2019-01-26] MEDS: predniSONE 20 MG TAB PO SCH (09:00)
[2019-01-26] MEDS: ASPIRIN 81 MG ENTERIC TAB PO SCH (09:00)
[2019-01-26] MEDS: ANALGESIC BALM CRM 120 GM TOP SCH ×4 (09:00→21:46)
[2019-01-27 06:00] VITALS: BP 135/65
[2019-01-27] MEDS: HumaLOG INSULIN (NovoLOG) PER UNIT SC SCH ×3 (07:30→20:21)
[2019-01-27] MEDS: SYMBICORT 160/4.5MCG INHALER 6GM INH SCH ×2 (07:52→21:17)
[2019-01-27] MEDS: TIOTROPIUM INHALER/CAPSULE (SPIRIVA) INH SCH (07:52)
[2019-01-27] MEDS: LEVALBUTEROL 1.25 MG/0.5 ML CONCENTRATE NEB INH PRN ×4 (07:52→21:17)
[2019-01-27] MEDS: SENOKOT S TAB PO SCH ×2 (09:00→20:22)
[2019-01-27] MEDS: ASCORBIC ACID 500 MG TAB PO SCH ×2 (09:00→20:22)
[2019-01-27] MEDS: FERROUS SULFATE 325MG TAB PO SCH ×2 (09:00→20:22)
[2019-01-27] MEDS: ATORVASTATIN 10 MG TAB PO SCH (09:00)
[2019-01-27] MEDS: TORSEMIDE 20 MG TAB PO SCH (09:00)
[2019-01-27] MEDS: LEVEMIR (INSULIN DETEMIR) 1 UNITS/0.01ML SC SCH (09:00)
[2019-01-27] MEDS: ANALGESIC BALM CRM 120 GM TOP SCH ×2 (09:00→12:16)
[2019-01-27] MEDS: predniSONE 20 MG TAB PO SCH (09:00)
[2019-01-27] MEDS: PANTOPRAZOLE 40MG TAB (PROTONIX) PO SCH (09:00)
[2019-01-27] MEDS: ASPIRIN 81 MG ENTERIC TAB PO SCH (09:00)
[2019-01-28] MEDS: LEVALBUTEROL 1.25 MG/0.5 ML CONCENTRATE NEB INH PRN ×2 (01:44→07:09)
[2019-01-28 06:00] VITALS: BP 131/59
[2019-01-28] MEDS: TIOTROPIUM INHALER/CAPSULE (SPIRIVA) INH SCH (07:09)
[2019-01-28] MEDS: SYMBICORT 160/4.5MCG INHALER 6GM INH SCH ×2 (07:10→22:30)
[2019-01-28] MEDS: HumaLOG INSULIN (NovoLOG) PER UNIT SC SCH ×4 (07:30→21:00)
[2019-01-28] MEDS: ATORVASTATIN 10 MG TAB PO SCH (09:00)
[2019-01-28] MEDS: ANALGESIC BALM CRM 120 GM TOP SCH ×4 (09:00→20:51)
[2019-01-28] MEDS: FERROUS SULFATE 325MG TAB PO SCH ×2 (09:00→20:50)
[2019-01-28] MEDS: predniSONE 10 MG TAB PO SCH ×2 (09:00→10:52)
[2019-01-28] MEDS: BACTRIM 160MG/800MG DS TAB PO SCH (09:00)
[2019-01-28] MEDS: LEVEMIR (INSULIN DETEMIR) 1 UNITS/0.01ML SC SCH (09:00)
[2019-01-28] MEDS: ASPIRIN 81 MG ENTERIC TAB PO SCH ×2 (09:00→10:52)
[2019-01-28] MEDS: TORSEMIDE 20 MG TAB PO SCH ×2 (09:00→10:53)
[2019-01-28] MEDS: SENOKOT S TAB PO SCH ×2 (09:00→20:50)
[2019-01-28] MEDS: ASCORBIC ACID 500 MG TAB PO SCH ×2 (09:00→20:51)
[2019-01-28] MEDS: PANTOPRAZOLE 40MG TAB (PROTONIX) PO SCH (09:00)
[2019-01-28] MEDS: IPRATROPIUM 0.5MG/ALBUTEROL 2.5MG INH SOL UD 3ML (DUONEB)(J7620) NEB PRN ×2 (15:03→22:30)
[2019-01-28] MEDS ORDERED: guaiFENesin DM LIQ 10ML UD PO ONE (23:15)
[2019-01-29 06:00] VITALS: BP 134/67
[2019-01-29] MEDS: SYMBICORT 160/4.5MCG INHALER 6GM INH SCH ×2 (07:14→21:00)
[2019-01-29] MEDS: TIOTROPIUM INHALER/CAPSULE (SPIRIVA) INH SCH (07:14)
[2019-01-29] MEDS: LEVALBUTEROL 1.25 MG/0.5 ML CONCENTRATE NEB INH PRN (07:14)
[2019-01-29] MEDS: HumaLOG INSULIN (NovoLOG) PER UNIT SC SCH ×4 (07:30→21:00)
[2019-01-29] MEDS: PANTOPRAZOLE 40MG TAB (PROTONIX) PO SCH (09:00)
[2019-01-29] MEDS: LEVEMIR (INSULIN DETEMIR) 1 UNITS/0.01ML SC SCH (09:00)
[2019-01-29] MEDS: ASCORBIC ACID 500 MG TAB PO SCH ×2 (09:00→20:10)
[2019-01-29] MEDS: SENOKOT S TAB PO SCH ×2 (09:00→20:10)
[2019-01-29] MEDS: ANALGESIC BALM CRM 120 GM TOP SCH ×4 (09:00→20:10)
[2019-01-29] MEDS: ATORVASTATIN 10 MG TAB PO SCH (09:00)
[2019-01-29] MEDS: FERROUS SULFATE 325MG TAB PO SCH ×2 (09:00→20:10)
[2019-01-29] MEDS: predniSONE 10 MG TAB PO SCH (11:16)
[2019-01-29] MEDS: ASPIRIN 81 MG ENTERIC TAB PO SCH (11:16)
[2019-01-29] MEDS: TORSEMIDE 20 MG TAB PO SCH (11:16)
[2019-01-29] MEDS: IPRATROPIUM 0.5MG/ALBUTEROL 2.5MG INH SOL UD 3ML (DUONEB)(J7620) NEB PRN (14:25)
[2019-01-30 06:00] VITALS: BP 123/64
[2019-01-30] MEDS: HumaLOG INSULIN (NovoLOG) PER UNIT SC SCH ×4 (07:30→21:00)
[2019-01-30] MEDS: TIOTROPIUM INHALER/CAPSULE (SPIRIVA) INH SCH (08:00)
[2019-01-30] MEDS: SYMBICORT 160/4.5MCG INHALER 6GM INH SCH ×2 (08:14→20:29)
[2019-01-30] MEDS: FERROUS SULFATE 325MG TAB PO SCH ×2 (09:00→20:36)
[2019-01-30] MEDS: LEVEMIR (INSULIN DETEMIR) 1 UNITS/0.01ML SC SCH (09:00)
[2019-01-30] MEDS: SENOKOT S TAB PO SCH ×2 (09:00→20:36)
[2019-01-30] MEDS: PANTOPRAZOLE 40MG TAB (PROTONIX) PO SCH (09:00)
[2019-01-30] MEDS: BACTRIM 160MG/800MG DS TAB PO SCH (09:00)
[2019-01-30] MEDS: ANALGESIC BALM CRM 120 GM TOP SCH ×4 (09:00→20:36)
[2019-01-30] MEDS: ATORVASTATIN 10 MG TAB PO SCH (09:00)
[2019-01-30] MEDS: ASCORBIC ACID 500 MG TAB PO SCH ×2 (09:00→20:36)
[2019-01-30] MEDS: ASPIRIN 81 MG ENTERIC TAB PO SCH (11:45)
[2019-01-30] MEDS: TORSEMIDE 20 MG TAB PO SCH (11:45)
[2019-01-30] MEDS: predniSONE 10 MG TAB PO SCH (11:45)
[2019-01-30 12:39] LABS: HEMATOCRIT 31.7 % (36.0-47.0); HEMOGLOBIN 10.1 g/dl (12.0-15.5); MEAN CORPUSCULAR HEMOGLOBIN 27.9 pg (27.0-33.0); MEAN CORPUSCULAR HGB CONC 31.9 g/dl (32.0-36.5); MEAN CORPUSCULAR VOLUME 87.6 fl (80.0-96.0); PLATELET COUNT, AUTOMATED 341 10^3/uL (150-450); RED BLOOD COUNT 3.62 10^6/uL (4.00-5.40); WHITE BLOOD COUNT 8.7 10^3/uL (4.0-10.0)
[2019-01-30 13:07] LABS: BLOOD UREA NITROGEN 17 MG/DL (7-18); CALCIUM LEVEL 8.7 MG/DL (8.8-10.2); CARBON DIOXIDE LEVEL 32 MEQ/L (21-32); CHLORIDE LEVEL 100 MEQ/L (98-107); CREATININE FOR GFR 0.68 MG/DL (0.55-1.30); GLOMERULAR FILTRATION RATE > 60.0 (>32); GLUCOSE, FASTING 122 MG/DL (70-100); MAGNESIUM LEVEL 1.8 MG/DL (1.8-2.4); POTASSIUM SERUM 3.5 MEQ/L (3.5-5.1); SODIUM LEVEL 139 MEQ/L (136-145)
[2019-01-30] MEDS ORDERED: POTASSIUM CHLORIDE 10 MEQ SR TABLET PO ONE (15:00)
[2019-01-30] MEDS ORDERED: TORSEMIDE 20 MG TAB PO ONE ×2 (16:00→20:00)
--- NOTE | 2019-01-30 16:55 | IPN ---
DATE: 01/30/2019 Patient seen and examined. Patient is a very poor historian. 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 Patient further states that her leg has been getting worsening swelling. Denies any chest pain. Reported chronic shortness of breath that is not worsened. Denies any fevers or chills. Denies any chest pain. Patient has been refusing medication. Counseling was provided and encouraged medication compliance. Patient has dementia and needs to be reminded every single time that she needs to take her medication. VITAL SIGNS: Temperature 98.1, pulse 96, respirations 20, blood pressure 123/64, pulse oximetry 94% on 2 liters. LABORATORY DATA: WBC 8.7, hemoglobin and hematocrit 10.1/31.7, platelets 341. Chemistry: Sodium 139, potassium 3.5, chloride 100, bicarbonate 32, BUN 17, creatinine 0.68. GENERAL: Patient alert, comfortable in no acute distress. HEENT: Normocephalic, atraumatic. NECK: Supple. CARDIAC: Regular, S1, S2. PULMONARY: Diminished breath sounds bilateral. Minimal rales. No wheeze. ABDOMEN: Soft, nontender. EXTREMITIES: Edema 2+, bilateral lower extremities. Venous stasis skin changes. ASSESSMENT AND PLAN: This is an 83-year-old female patient with underlying medical history of end-stage renal disease, chronic obstructive pulmonary disease (COPD), anxiety, gastroesophageal reflux disease (GERD), history of methicillin-resistant Staphylococcus aureus (MRSA), on suppressive Bactrim, pulmonary artery hypertension, chronic right bundle branch block, history of transient ischemic attacks (TIA), history of malaria, history of dysentery, osteopenia, diverticulosis, migraine, coronary artery disease with myocardial infarction ([place]), coronary artery bypass graft (CABG),history of pleural effusion with left ventricular diastolic dysfunction, ejection fraction 85%. Lives at home with son prior to admission with dementia, initially admitted with shortness of breath. Currently at alternative level of care, pending placement and social work. 1. Shortness of breath. Initially admitted for acute COPD exacerbation. Patient currently alternative level of care. Intermittently during hospital course requiring by mouth cefdinir, chronically steroid dependent. Will taper steroid to home dose. Chest x-ray appreciated. C-reactive protein, negative, Symbicort, Spiriva. Patient on suppressive Bactrim for MRSA. Refusing medication on multiple occasions. 2. Acute kidney injury, resolved. 3. Healthcare-associated pneumonia, treated. 4. Acute on chronic diastolic congestive heart failure with worsening lower extremity edema. Encourage compliance with medication. Additional dose of torsemide provided. Monitor electrolytes. Supplement as needed. Daily weights. 5. Chronic normocytic anemia. Intermittent transfusion. Hemoglobin and hematocrit appreciated. 6. Diabetes. Consistent-carbohydrate diet. Insulin as ordered per protocol. Fingersticks. 7. History of left lower extremity deep vein thrombosis (DVT), not on anticoagulation. 8. TIA. Continue aspirin and statin. 9. Dementia. Supportive care. rice farmworker on consult. 10. History of pulmonary artery hypertension, cor pulmonale. Diuresis, supportive care. 11. Anxiety. Continue current medication. 12. Coronary artery disease with stents and CABG. Aspirin, statin. 13. History of malaria. Supportive care. 14. Chronic back pain. Continue current medication. 15. DVT prophylaxis. Heparin subcutaneous. DISPOSITION: Pending social work. Patient currently alternative level of care. Initiating guardianship process.
[2019-01-30] MEDS: LEVALBUTEROL 1.25 MG/0.5 ML CONCENTRATE NEB INH PRN (18:08)
[2019-01-31] MEDS: IPRATROPIUM 0.5MG/ALBUTEROL 2.5MG INH SOL UD 3ML (DUONEB)(J7620) NEB PRN ×3 (02:59→21:28)
[2019-01-31 06:00] VITALS: BP 131/78
[2019-01-31] MEDS: HumaLOG INSULIN (NovoLOG) PER UNIT SC SCH ×4 (07:30→21:00)
[2019-01-31] MEDS: LEVALBUTEROL 1.25 MG/0.5 ML CONCENTRATE NEB INH PRN ×3 (07:50→15:11)
[2019-01-31] MEDS: TIOTROPIUM INHALER/CAPSULE (SPIRIVA) INH SCH (07:50)
[2019-01-31] MEDS: SYMBICORT 160/4.5MCG INHALER 6GM INH SCH ×2 (07:51→20:57)
[2019-01-31] MEDS: FERROUS SULFATE 325MG TAB PO SCH ×2 (09:00→20:16)
[2019-01-31] MEDS: ANALGESIC BALM CRM 120 GM TOP SCH ×4 (09:00→20:16)
[2019-01-31] MEDS: ASCORBIC ACID 500 MG TAB PO SCH ×2 (09:00→20:16)
[2019-01-31] MEDS: ATORVASTATIN 10 MG TAB PO SCH (09:00)
[2019-01-31] MEDS: LEVEMIR (INSULIN DETEMIR) 1 UNITS/0.01ML SC SCH (09:00)
[2019-01-31] MEDS: PANTOPRAZOLE 40MG TAB (PROTONIX) PO SCH (09:00)
[2019-01-31] MEDS: SENOKOT S TAB PO SCH ×2 (09:00→20:16)
[2019-01-31] MEDS: predniSONE 10 MG TAB PO SCH (09:29)
[2019-01-31] MEDS: ASPIRIN 81 MG ENTERIC TAB PO SCH (09:29)
[2019-01-31] MEDS: TORSEMIDE 20 MG TAB PO SCH (09:29)
[2019-02-01] MEDS: IPRATROPIUM 0.5MG/ALBUTEROL 2.5MG INH SOL UD 3ML (DUONEB)(J7620) NEB PRN ×2 (00:46→06:02)
[2019-02-01 06:00] VITALS: BP 139/66
[2019-02-01] MEDS: HumaLOG INSULIN (NovoLOG) PER UNIT SC SCH ×4 (07:30→22:05)
[2019-02-01] MEDS: PANTOPRAZOLE 40MG TAB (PROTONIX) PO SCH (09:00)
[2019-02-01] MEDS: TORSEMIDE 20 MG TAB PO SCH (09:00)
[2019-02-01] MEDS: BACTRIM 160MG/800MG DS TAB PO SCH (09:00)
[2019-02-01] MEDS: ANALGESIC BALM CRM 120 GM TOP SCH ×4 (09:00→22:06)
[2019-02-01] MEDS: predniSONE 10 MG TAB PO SCH (09:00)
[2019-02-01] MEDS: ASCORBIC ACID 500 MG TAB PO SCH ×2 (09:00→22:05)
[2019-02-01] MEDS: SENOKOT S TAB PO SCH ×2 (09:00→22:04)
[2019-02-01] MEDS: FERROUS SULFATE 325MG TAB PO SCH ×2 (09:00→22:04)
[2019-02-01] MEDS: ATORVASTATIN 10 MG TAB PO SCH (09:00)
[2019-02-01] MEDS: LEVEMIR (INSULIN DETEMIR) 1 UNITS/0.01ML SC SCH (09:00)
[2019-02-01] MEDS: ASPIRIN 81 MG ENTERIC TAB PO SCH (09:00)
[2019-02-01] MEDS: SYMBICORT 160/4.5MCG INHALER 6GM INH SCH ×2 (09:17→19:49)
[2019-02-01] MEDS: TIOTROPIUM INHALER/CAPSULE (SPIRIVA) INH SCH (09:17)
[2019-02-01] MEDS: LEVALBUTEROL 1.25 MG/0.5 ML CONCENTRATE NEB INH PRN (16:34)
[2019-02-01 17:12] LABS: BASO # 0.1 10^3/uL (0.0-0.2); BASO % 0.5 % (0.0-1.0); EOS % 7.1 % (0.0-3.0); HEMOGLOBIN 10.4 g/dl (12.0-15.5); LYMPH # 1.2 10^3/uL (1.5-4.5); LYMPH % 8.7 % (24.0-44.0); MEAN CORPUSCULAR HEMOGLOBIN 28.1 pg (27.0-33.0); MEAN CORPUSCULAR HGB CONC 32.5 g/dl (32.0-36.5); MEAN CORPUSCULAR VOLUME 86.5 fl (80.0-96.0); MONO % 7.4 % (0.0-5.0); NEUTROPHILS # 10.5 10^3/uL (1.8-7.7); NEUTROPHILS % 75.7 % (36.0-66.0); PLATELET COUNT, AUTOMATED 378 10^3/uL (150-450); WHITE BLOOD COUNT 13.9 10^3/uL (4.0-10.0)
[2019-02-01] MEDS ORDERED: TORSEMIDE 20 MG TAB PO ONE ×2 (17:15→20:30)
[2019-02-01 17:55] LABS: BLOOD UREA NITROGEN 19 MG/DL (7-18); CALCIUM LEVEL 9.1 MG/DL (8.8-10.2); CARBON DIOXIDE LEVEL 32 MEQ/L (21-32); CHLORIDE LEVEL 94 MEQ/L (98-107); CPK CREATINE PHOSPHOKINASE 95 U/L (26-192); CREATININE FOR GFR 0.82 MG/DL (0.55-1.30); GLOMERULAR FILTRATION RATE > 60.0 (>32); GLUCOSE, FASTING 134 MG/DL (70-100); MAGNESIUM LEVEL 1.9 MG/DL (1.8-2.4); MB/CK RELATIVE INDEX 3.37 (< OR =4); POTASSIUM SERUM 3.7 MEQ/L (3.5-5.1); SODIUM LEVEL 135 MEQ/L (136-145); TROPONIN I < 0.02 NG/ML (< 0.10)
[2019-02-02] MEDS: HumaLOG INSULIN (NovoLOG) PER UNIT SC SCH ×4 (07:30→21:00)
[2019-02-02] MEDS: TIOTROPIUM INHALER/CAPSULE (SPIRIVA) INH SCH (07:40)
[2019-02-02] MEDS: SYMBICORT 160/4.5MCG INHALER 6GM INH SCH ×2 (07:40→19:41)
[2019-02-02] MEDS: SENOKOT S TAB PO SCH ×2 (09:00→21:40)
[2019-02-02] MEDS: PANTOPRAZOLE 40MG TAB (PROTONIX) PO SCH (09:00)
[2019-02-02] MEDS: ASPIRIN 81 MG ENTERIC TAB PO SCH ×3 (09:00→10:28)
[2019-02-02] MEDS: TORSEMIDE 20 MG TAB PO SCH ×3 (09:00→10:26)
[2019-02-02] MEDS: ATORVASTATIN 10 MG TAB PO SCH ×2 (09:00→10:29)
[2019-02-02] MEDS: FERROUS SULFATE 325MG TAB PO SCH ×2 (09:00→21:40)
[2019-02-02] MEDS: LEVEMIR (INSULIN DETEMIR) 1 UNITS/0.01ML SC SCH (09:00)
[2019-02-02] MEDS: predniSONE 10 MG TAB PO SCH ×3 (09:00→10:27)
[2019-02-02] MEDS: ASCORBIC ACID 500 MG TAB PO SCH ×2 (09:00→21:40)
[2019-02-02] MEDS: ANALGESIC BALM CRM 120 GM TOP SCH ×4 (09:00→21:40)
--- NOTE | 2019-02-02 10:17 | ECGEPIP ---
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
--- NOTE | 2019-02-02 17:21 | IPN ---
DATE: 02/02/2019 Informed by nursing staff that patient has been persistently refusing medication. Yesterday patient reported an episode of shortness of breath and chest discomfort. EKG was done, showing no significant change with right bundle branch block. Cardiac enzymes were negative. Subsequently, discomfort and shortness of breath improved. Was noted to have lower extremity edema that is significantly worsened. Patient has been refusing medication multiple times, given severe dementia and delusional thoughts. Encouraged patient to take medication. Subsequently, provider has stayed at the bedside and watched the patient until she took the medication before leaving the room. Upon multiple encouragements, patient finally agreed to take her diuretics, prednisone, aspirin, and statin but refused other medications. VITAL SIGNS: Temperature 98, pulse 107, respirations 22, blood pressure 139/66, pulse oximetry 96% on 2 liters nasal cannula. LABORATORY DATA: WBC 13.9, hemoglobin and hematocrit 10.4/32, platelets 378. Chemistry: Sodium 135, potassium 3.9, chloride 94, bicarbonate 32, BUN 19, creatinine 0.82. Cardiac enzymes negative times one. PHYSICAL EXAMINATION: GENERAL: Patient alert, comfortable in no acute distress. HEENT: Normocephalic, atraumatic. PULMONARY: Bilateral rales. No significant wheeze. CARDIAC: Regular, S1, S2. ABDOMEN: Soft, nontender. Positive bowel sounds. EXTREMITIES: Edema 2+, bilateral lower extremities. Venous stasis skin changes. ASSESSMENT AND PLAN: This is an 83-year-old female patient with underlying medical history of end-stage renal disease, chronic obstructive pulmonary disease (COPD), end-stage, anxiety, gastroesophageal reflux disease (GERD), history of methicillin-resistant Staphylococcus aureus (MRSA), on suppressive Bactrim, pulmonary artery hypertension with chronic right bundle branch block, history of transient ischemic attacks (TIA), history of malaria, history of dysentery, osteopenia, diverticulosis, migraine, coronary artery disease with myocardial infarction ([place]), coronary artery bypass graft (CABG), and history of pleural effusion with congestive heart failure (CHF) with diastolic dysfunction, ejection fraction 85%. Lives at home with son prior to admission. With dementia. Initially admitted with shortness of breath. Currently alternative level of care (ALC) pending placement. 1. Shortness of breath. Initially admitted for acute COPD exacerbation. Patient currently ALC with end-stage COPD. During the hospital course, patient required intermittent dose of cefdinir whenever patient's respirations worsened. Chronic steroid dependent. Currently on baseline steroids. Will increase steroids if patient's respiration worsens. Chest x-ray appreciated. C-reactive protein appreciated. Symbicort, Spiriva, suppressive Bactrim for MRSA. Refusing medications multiple times. 2. Acute kidney injury, resolved. 3. Healthcare-associated pneumonia, treated. 4. Acute on chronic diastolic congestive heart failure, ejection fraction (EF) of 85%. Worsening lower extremity edema with right heart failure. Encourage compliance. Today's diuretic was administered with provider at the bedside, who has witnessed the patient taking the medication, upon multiple encouragements. Continue torsemide. Monitor electrolytes. Will take weights every other day. 5. Chronic normocytic anemia. Intermittent transfusion. Monitor hemoglobin and hematocrit. 6. Diabetes. Consistent-carbohydrate diet. Insulin as ordered. 7. History of left lower extremity deep vein thrombosis (DVT), not on anticoagulation. 8. TIA. Continue aspirin and statin. 9. Dementia. Supportive care. Pending placement. 10. History of pulmonary artery hypertension. 11. Cor pulmonale. Diuresis. Supportive care. 12. Anxiety. Continue current medication. 13. Coronary artery disease with stents and CABG. Continue aspirin and statin. 14. History of malaria. Supportive care. 15. Chronic back pain. Continue current medication. 16. DVT prophylaxis. Heparin subcutaneous. DISPOSITION: Pending placement, alternative level of care. Encourage medication compliance. Guardianship process has been initiated.
[2019-02-02] MEDS: IPRATROPIUM 0.5MG/ALBUTEROL 2.5MG INH SOL UD 3ML (DUONEB)(J7620) NEB PRN (19:41)
[2019-02-03 01:18] VITALS: BP 150/67
--- NOTE | 2019-02-03 02:52 | REPVR ---
EXAM: CT Head Without Contrast EXAM DATE/TIME: 02/03/19 (1:48am) CLINICAL HISTORY: 83 year old female. Recent fall. Head laceration. Initial encounter. Blunt trauma (contusions or hematomas). Consciousness not specified. TECHNIQUE: Imaging protocol: Axial computed tomography images of the head without contrast. Radiation optimization: All CT scans at this facility use at least one of these dose optimization techniques: automated exposure control; mA and/or kV adjustment per patient size (includes targeted exams where dose is matched to clinical indication); or iterative reconstruction. COMPARISON: CT HEAD of 05/16/17 FINDINGS: Brain: No acute hemorrhage. No cerebral edema. Age-appropriate atrophic changes are noted. Periventricular and subcortical areas of low attenuation, compatible with small vessel microischemic changes. Ventricles: Normal. No ventriculomegaly. Bones/joints: Unremarkable. No acute fracture. Sinuses: Visualized sinuses are unremarkable. No acute sinusitis. Mastoid air cells: Visualized mastoid air cells are unremarkable. No mastoid effusion. Soft tissues: Unremarkable. IMPRESSION: No acute intracranial pathology is appreciated. Chronic atrophic and microischemic changes are noted. A similar appearance was noted on 05/16/17. Electronically signed by: Darling Jordan On 02/03/2019 02:52:24 AM
--- NOTE | 2019-02-03 03:49 | REPVR ---
EXAM: XR Left Elbow Complete, 3 or more Views EXAM DATE/TIME: 02/03/19 (2:26am) CLINICAL HISTORY: 83 year old female. Recent fall. Initial encounter. Left elbow abrasion and pain. TECHNIQUE: Imaging protocol: XR Left elbow, 3 or more views COMPARISON: Left elbow plain films of 11/26/13 FINDINGS: Bones/joints: Unremarkable. Soft tissues: Unremarkable. IMPRESSION: No acute findings. Electronically signed by: Darling Jordan On 02/03/2019 03:48:45 AM
--- NOTE | 2019-02-03 03:56 | REPVR ---
EXAM: XR Sacrum and Coccyx, 2 or More Views EXAM DATE/TIME: 02/03/19 (2:27am) CLINICAL HISTORY: 83 year old female. Recent fall. Initial encounter. Abrasion. Coccygeal pain. TECHNIQUE: Imaging protocol: XR of the sacrum and coccyx, 2 or more views COMPARISON: Pelvis and hips plain films of 08/23/18 FINDINGS: Comparison is made with plain films of the pelvis and hips done on 08/23/18. Dense iliac and femoral arterial calcification are again noted. No acute fracture nor dislocation at the hips. The sacrum and coccyx appear intact. The lower lumbar spine shows anterolisthesis of L4 on L5 (by approx. 9 mm). IMPRESSION: No acute pathology. The sacrum and coccyx appear intact. See additional comments above regarding non-emergent and incidental findings. Electronically signed by: Darling Jordan On 02/03/2019 03:56:13 AM
[2019-02-03 06:00] VITALS: BP 140/65
--- NOTE | 2019-02-03 07:16 | IPNPDOC ---
Text Note Date of Service The patient was seen on 02/03/19. NOTE I was called by nursing staff to the bedside of the patient after the patient had fallen. Patient had hit her head and had a small laceration that was bleeding. Hemostasis was achieved by holding pressure with a dressing. After hemostasis is achieved exam showed a 3 cm laceration overlying the occiput of the patient's head. A CT of the head was performed and did not show any acute pathology. Patient did not lose consciousness throughout the event. Patient stated her left elbow and coccyx were bothering her. X-rays of both her left elbow and sacrum and coccyx were performed and were both negative for any acute findings. I checked up on the patient a few hours later and the patient had no complaints about her fall. VS,Fishbone, I+O VS, Fishbone, I+O Vital Signs Date Time Temp Pulse Resp B/P (MAP) Pulse Ox O2 Delivery O2 Flow Rate FiO2 02/03/19 06:00 98.4 89 89 140/65 (90) 100 2.0 I&O- Last 24 Hours up to 6 AM 02/03/19 06:00 Intake Total 630 ml Output Total 1400 ml Balance -770 ml GME ATTESTATION GME ATTESTATION My faculty preceptor for this patient encounter was physically present during the encounter and was fully available. All aspects of the patient interview, examination, medical decision making process, and medical care plan development were reviewed and approved by the faculty preceptor. The faculty preceptor is aware and concurs with the plan as stated in the body of this note and will attest to such by his/her cosignature. YAAKOV WEST DO Feb 03, 2019 07:16
[2019-02-03] MEDS: HumaLOG INSULIN (NovoLOG) PER UNIT SC SCH ×4 (07:30→21:00)
[2019-02-03] MEDS: ANALGESIC BALM CRM 120 GM TOP SCH ×4 (08:04→21:00)
[2019-02-03] MEDS: LEVEMIR (INSULIN DETEMIR) 1 UNITS/0.01ML SC SCH (08:04)
[2019-02-03] MEDS: TIOTROPIUM INHALER/CAPSULE (SPIRIVA) INH SCH (08:16)
[2019-02-03] MEDS: SYMBICORT 160/4.5MCG INHALER 6GM INH SCH ×2 (08:16→21:00)
[2019-02-03] MEDS: LEVALBUTEROL 1.25 MG/0.5 ML CONCENTRATE NEB INH PRN ×2 (08:17→13:32)
[2019-02-03] MEDS: ASCORBIC ACID 500 MG TAB PO SCH ×2 (09:00→21:00)
[2019-02-03] MEDS: SENOKOT S TAB PO SCH ×2 (09:00→21:00)
[2019-02-03] MEDS: PANTOPRAZOLE 40MG TAB (PROTONIX) PO SCH (09:00)
[2019-02-03] MEDS: TORSEMIDE 20 MG TAB PO SCH ×2 (09:00→10:30)
[2019-02-03] MEDS: ASPIRIN 81 MG ENTERIC TAB PO SCH (10:30)
[2019-02-03] MEDS: predniSONE 10 MG TAB PO SCH (10:31)
[2019-02-03] MEDS: FERROUS SULFATE 325MG TAB PO SCH ×2 (10:33→21:00)
[2019-02-04 06:00] VITALS: BP 146/63
[2019-02-04] MEDS: HumaLOG INSULIN (NovoLOG) PER UNIT SC SCH ×4 (07:30→21:00)
[2019-02-04] MEDS: SYMBICORT 160/4.5MCG INHALER 6GM INH SCH ×2 (07:32→20:21)
[2019-02-04] MEDS: TIOTROPIUM INHALER/CAPSULE (SPIRIVA) INH SCH (07:32)
[2019-02-04] MEDS: ASPIRIN 81 MG ENTERIC TAB PO SCH (09:00)
[2019-02-04] MEDS: ASCORBIC ACID 500 MG TAB PO SCH ×2 (09:00→21:00)
[2019-02-04] MEDS: ATORVASTATIN 10 MG TAB PO SCH (09:00)
[2019-02-04] MEDS: ANALGESIC BALM CRM 120 GM TOP SCH ×3 (09:00→17:00)
[2019-02-04] MEDS: LEVEMIR (INSULIN DETEMIR) 1 UNITS/0.01ML SC SCH (09:00)
[2019-02-04] MEDS: SENOKOT S TAB PO SCH ×2 (09:00→21:00)
[2019-02-04] MEDS: predniSONE 10 MG TAB PO SCH (09:00)
[2019-02-04] MEDS: FERROUS SULFATE 325MG TAB PO SCH ×2 (09:00→21:00)
[2019-02-04] MEDS: BACTRIM 160MG/800MG DS TAB PO SCH (09:00)
[2019-02-04] MEDS: PANTOPRAZOLE 40MG TAB (PROTONIX) PO SCH (09:00)
[2019-02-04] MEDS: TORSEMIDE 20 MG TAB PO SCH (09:00)
[2019-02-05 06:00] VITALS: BP 142/67
[2019-02-05] MEDS: TIOTROPIUM INHALER/CAPSULE (SPIRIVA) INH SCH (07:17)
[2019-02-05] MEDS: SYMBICORT 160/4.5MCG INHALER 6GM INH SCH ×2 (07:17→20:02)
[2019-02-05] MEDS: HumaLOG INSULIN (NovoLOG) PER UNIT SC SCH ×4 (07:30→21:00)
[2019-02-05] MEDS: ASPIRIN 81 MG ENTERIC TAB PO SCH (09:00)
[2019-02-05] MEDS: FERROUS SULFATE 325MG TAB PO SCH ×2 (09:00→21:00)
[2019-02-05] MEDS: TORSEMIDE 20 MG TAB PO SCH (09:00)
[2019-02-05] MEDS: predniSONE 10 MG TAB PO SCH (09:00)
[2019-02-05] MEDS: SENOKOT S TAB PO SCH ×2 (09:00→21:00)
[2019-02-05] MEDS: ASCORBIC ACID 500 MG TAB PO SCH ×2 (09:00→21:00)
[2019-02-05] MEDS: ATORVASTATIN 10 MG TAB PO SCH (09:00)
[2019-02-05] MEDS: LEVEMIR (INSULIN DETEMIR) 1 UNITS/0.01ML SC SCH (09:00)
[2019-02-05] MEDS: ANALGESIC BALM CRM 120 GM TOP SCH ×4 (09:00→21:00)
[2019-02-05] MEDS: PANTOPRAZOLE 40MG TAB (PROTONIX) PO SCH (09:00)
[2019-02-05] MEDS: IPRATROPIUM 0.5MG/ALBUTEROL 2.5MG INH SOL UD 3ML (DUONEB)(J7620) NEB PRN (11:01)
[2019-02-05 13:30] LABS: HEMATOCRIT 29.6 % (36.0-47.0); HEMOGLOBIN 9.5 g/dl (12.0-15.5); MEAN CORPUSCULAR HEMOGLOBIN 28.9 pg (27.0-33.0); MEAN CORPUSCULAR HGB CONC 32.1 g/dl (32.0-36.5); PLATELET COUNT, AUTOMATED 382 10^3/uL (150-450); RED BLOOD COUNT 3.29 10^6/uL (4.00-5.40); WHITE BLOOD COUNT 12.5 10^3/uL (4.0-10.0)
[2019-02-05 13:51] LABS: BLOOD UREA NITROGEN 11 MG/DL (7-18); CALCIUM LEVEL 9.1 MG/DL (8.8-10.2); CARBON DIOXIDE LEVEL 31 MEQ/L (21-32); CHLORIDE LEVEL 100 MEQ/L (98-107); CREATININE FOR GFR 0.61 MG/DL (0.55-1.30); GLOMERULAR FILTRATION RATE > 60.0 (>32); GLUCOSE, FASTING 128 MG/DL (70-100); MAGNESIUM LEVEL 1.8 MG/DL (1.8-2.4); POTASSIUM SERUM 3.7 MEQ/L (3.5-5.1); SODIUM LEVEL 137 MEQ/L (136-145)
[2019-02-05] MEDS: LEVALBUTEROL 1.25 MG/0.5 ML CONCENTRATE NEB INH PRN (20:02)
[2019-02-06 06:00] VITALS: BP 143/65
[2019-02-06] MEDS: HumaLOG INSULIN (NovoLOG) PER UNIT SC SCH ×3 (07:30→21:00)
[2019-02-06] MEDS: SYMBICORT 160/4.5MCG INHALER 6GM INH SCH ×2 (08:03→20:50)
[2019-02-06] MEDS: TIOTROPIUM INHALER/CAPSULE (SPIRIVA) INH SCH (08:03)
[2019-02-06] MEDS: LEVEMIR (INSULIN DETEMIR) 1 UNITS/0.01ML SC SCH (09:00)
[2019-02-06] MEDS: SENOKOT S TAB PO SCH ×2 (09:00→20:31)
[2019-02-06] MEDS: ANALGESIC BALM CRM 120 GM TOP SCH ×3 (09:00→20:33)
[2019-02-06] MEDS: PANTOPRAZOLE 40MG TAB (PROTONIX) PO SCH (09:00)
[2019-02-06] MEDS: ASCORBIC ACID 500 MG TAB PO SCH ×2 (09:00→20:31)
[2019-02-06] MEDS: BACTRIM 160MG/800MG DS TAB PO SCH (09:00)
[2019-02-06] MEDS: ATORVASTATIN 10 MG TAB PO SCH (09:00)
[2019-02-06] MEDS: FERROUS SULFATE 325MG TAB PO SCH ×2 (09:00→20:31)
[2019-02-06] MEDS: predniSONE 10 MG TAB PO SCH (10:15)
[2019-02-06] MEDS: TORSEMIDE 20 MG TAB PO SCH (10:15)
[2019-02-06] MEDS: ASPIRIN 81 MG ENTERIC TAB PO SCH (10:15)
[2019-02-06] MEDS: LEVALBUTEROL 1.25 MG/0.5 ML CONCENTRATE NEB INH PRN (13:34)
[2019-02-07] MEDS: LEVALBUTEROL 1.25 MG/0.5 ML CONCENTRATE NEB INH PRN (03:07)
[2019-02-07 06:00] VITALS: BP 135/78
[2019-02-07] MEDS: IPRATROPIUM 0.5MG/ALBUTEROL 2.5MG INH SOL UD 3ML (DUONEB)(J7620) NEB PRN ×3 (06:41→18:33)
[2019-02-07] MEDS: TIOTROPIUM INHALER/CAPSULE (SPIRIVA) INH SCH (07:23)
[2019-02-07] MEDS: SYMBICORT 160/4.5MCG INHALER 6GM INH SCH ×2 (07:23→18:33)
[2019-02-07] MEDS: HumaLOG INSULIN (NovoLOG) PER UNIT SC SCH ×4 (07:30→21:36)
[2019-02-07] MEDS: LEVEMIR (INSULIN DETEMIR) 1 UNITS/0.01ML SC SCH (09:00)
[2019-02-07] MEDS: SENOKOT S TAB PO SCH ×2 (09:00→21:00)
[2019-02-07] MEDS: ASCORBIC ACID 500 MG TAB PO SCH ×2 (09:00→21:00)
[2019-02-07] MEDS: ATORVASTATIN 10 MG TAB PO SCH (09:00)
[2019-02-07] MEDS: FERROUS SULFATE 325MG TAB PO SCH ×2 (09:00→21:00)
[2019-02-07] MEDS: PANTOPRAZOLE 40MG TAB (PROTONIX) PO SCH (09:00)
[2019-02-07] MEDS: ANALGESIC BALM CRM 120 GM TOP SCH ×4 (09:00→21:00)
[2019-02-07] MEDS: ASPIRIN 81 MG ENTERIC TAB PO SCH (09:00)
[2019-02-07] MEDS: predniSONE 10 MG TAB PO SCH (09:00)
[2019-02-07] MEDS: TORSEMIDE 20 MG TAB PO SCH (09:00)
[2019-02-08] MEDS: LEVALBUTEROL 1.25 MG/0.5 ML CONCENTRATE NEB INH PRN (04:59)
[2019-02-08 06:00] VITALS: BP 132/72
[2019-02-08] MEDS: HumaLOG INSULIN (NovoLOG) PER UNIT SC SCH ×4 (07:30→21:00)
[2019-02-08] MEDS: TIOTROPIUM INHALER/CAPSULE (SPIRIVA) INH SCH (07:35)
[2019-02-08] MEDS: SYMBICORT 160/4.5MCG INHALER 6GM INH SCH ×2 (07:35→20:03)
--- NOTE | 2019-02-08 07:58 | IPNPDOC ---
Date Seen The patient was seen on 02/08/19. Progress Note Subjective: Patient was seen and examined this morning. Slightly pleasant stomach contributing review of system. States that she is agitated that people keep coming in. States that she is still waiting for the officers with the doctor who is in her house. She has no complaints and did not give any further answers. Objective: Vitals: (see below) General: No acute distress, sitting up comfortably at the side of the flap with right leg propped on a stool HEENT: Moist mucous membranes. Portable impression, No JVD or lymphadenopathy Cardiac: Regular rate and rhythm no audible murmurs Pulm: Bibasilar crackles with no use of accessory muscles. Does not appear short of breath with conversation Abd: Positive bowel sounds in 4 quadrants nondistended non-tender abdomen Ext: Trace to 1+ Pitting edema bilaterally in lower extremities. Labs (see below) ASSESSMENT AND PLAN: This is a 83-year-old female with chronic shortness of breath. SOB s/p Acute COPD exacerbation s/p Decompensated diastolic heart failure -c/w nebulizer, Mucinex, Spiriva, Symbicort, torsemide, prednisone, -Stable continue to monitor -Bactrim was discontinued for it was a prophylaxis dose and the patient was only on 10 mg of prednisone at this time but she is refuse multiple of these doses that will discontinue continue prednisone as well. H/o HCAP - Resolved s/p cefdinir s/p Acute on chronic Normocytic anemia -s/p 1U PRBC in -No active bleeding at this time. -Patient refused to be transfused c/w iron supplement -Will continue to monitor Diabetes mellitus -consistent carb diet -c/w Levemir / SSI w/hypoglycemic protocol Hx of LLE DVT: -Not on any anticoagulation, -no current issues with calf swelling or tenderness. Hx of TIA -c/w ASA -prescribed statins but refuses to take them History of Pulmonary hypertension due to cor pulmonale -Chronic and stable Hx of Nephrectomy: -Chronic and stable Anxiety -c/w Alprazolam CAD s/p stent: -c/w ASA -refuses statin -not on any beta yaw likely related to her pulmonary disease History of malaria H/o Dementia Low back pain -as needed Roxanol Allergies -c/w Zyrtec PRN Insomnia -c/w Benadryl PRN Gastroesophageal reflux disease -c/w Protonix DVT prophylaxis -SQ Heparin -refuses Disposition: PFS / Case management trying to contact family for further care such as conservative treatment regimen versus SNF-based financial plan for SNF bed. Pt continues to refuse many of her medications, and she has been counseled on compliance. For now she remains SNF status. VS, I&O, 24H, Fishbone Vital Signs/I&O Vital Signs Date Time Temp Pulse Resp B/P (MAP) Pulse Ox O2 Delivery O2 Flow Rate FiO2 02/07/19 23:00 3.0 02/07/19 06:00 98.3 91 22 135/78 (97) 100 I&O- Last 24 Hours up to 6 AM 02/08/19 06:00 Intake Total 450 ml Output Total 800 ml Balance -350 ml Laboratory Data 24H LABS Laboratory Tests 2 02/07/19 12:29: Bedside Glucose (Misc Panel) 154H 02/07/19 16:59: Bedside Glucose (Misc Panel) 155H 02/07/19 20:13: Bedside Glucose (Misc Panel) 175H GME ATTESTATION GME ATTESTATION My faculty preceptor for this patient encounter was physically present during the encounter and was fully available. All aspects of the patient interview, examination, medical decision making process, and medical care plan development were reviewed and approved by the faculty preceptor. The faculty preceptor is aware and concurs with the plan as stated in the body of this note and will attest to such by his/her cosignature. ARSLAN GUILLEN DO Feb 08, 2019 07:58
[2019-02-08] MEDS: BACTRIM 160MG/800MG DS TAB PO SCH (08:56)
[2019-02-08] MEDS: ATORVASTATIN 10 MG TAB PO SCH (08:57)
[2019-02-08] MEDS: PANTOPRAZOLE 40MG TAB (PROTONIX) PO SCH (08:57)
[2019-02-08] MEDS: predniSONE 10 MG TAB PO SCH (08:57)
[2019-02-08] MEDS: FERROUS SULFATE 325MG TAB PO SCH ×2 (08:57→21:00)
[2019-02-08] MEDS: TORSEMIDE 20 MG TAB PO SCH (08:57)
[2019-02-08] MEDS: LEVEMIR (INSULIN DETEMIR) 1 UNITS/0.01ML SC SCH (08:57)
[2019-02-08] MEDS: SENOKOT S TAB PO SCH ×2 (08:57→21:00)
[2019-02-08] MEDS: ASPIRIN 81 MG ENTERIC TAB PO SCH (08:57)
[2019-02-08] MEDS: ASCORBIC ACID 500 MG TAB PO SCH ×2 (08:57→21:00)
[2019-02-08] MEDS: ANALGESIC BALM CRM 120 GM TOP SCH ×4 (08:58→21:00)
[2019-02-08] MEDS: IPRATROPIUM 0.5MG/ALBUTEROL 2.5MG INH SOL UD 3ML (DUONEB)(J7620) NEB PRN (15:20)
[2019-02-08 22:00] VITALS: BP 132/63
[2019-02-09 06:00] VITALS: BP 161/72
[2019-02-09] MEDS: IPRATROPIUM 0.5MG/ALBUTEROL 2.5MG INH SOL UD 3ML (DUONEB)(J7620) NEB PRN ×5 (07:11→23:12)
[2019-02-09] MEDS: SYMBICORT 160/4.5MCG INHALER 6GM INH SCH ×2 (07:11→18:16)
[2019-02-09] MEDS: TIOTROPIUM INHALER/CAPSULE (SPIRIVA) INH SCH (07:12)
[2019-02-09] MEDS: HumaLOG INSULIN (NovoLOG) PER UNIT SC SCH ×4 (07:30→20:39)
[2019-02-09] MEDS: TORSEMIDE 20 MG TAB PO SCH (09:00)
[2019-02-09] MEDS: ASCORBIC ACID 500 MG TAB PO SCH ×3 (09:00→21:06)
[2019-02-09] MEDS: LEVEMIR (INSULIN DETEMIR) 1 UNITS/0.01ML SC SCH (09:00)
[2019-02-09] MEDS: ATORVASTATIN 10 MG TAB PO SCH (09:00)
[2019-02-09] MEDS: ASPIRIN 81 MG ENTERIC TAB PO SCH (09:00)
[2019-02-09] MEDS: SENOKOT S TAB PO SCH ×2 (09:00→20:39)
[2019-02-09] MEDS: PANTOPRAZOLE 40MG TAB (PROTONIX) PO SCH (09:00)
[2019-02-09] MEDS: FERROUS SULFATE 325MG TAB PO SCH ×3 (09:00→21:06)
[2019-02-09] MEDS: ANALGESIC BALM CRM 120 GM TOP SCH ×4 (09:00→20:39)
[2019-02-09] MEDS: LEVALBUTEROL 1.25 MG/0.5 ML CONCENTRATE NEB INH PRN (19:57)
[2019-02-09 22:00] VITALS: BP 132/62
[2019-02-10] MEDS: ALPRAZolam 0.25 MG TAB PO PRN (00:09)
[2019-02-10] MEDS: diphenhydrAMINE 25 MG CAP PO PRN (03:30)
[2019-02-10] MEDS: CETIRIZINE (ZyrTEC) 10 MG TAB PO PRN (03:30)
[2019-02-10 06:00] VITALS: BP 139/63
[2019-02-10] MEDS: TIOTROPIUM INHALER/CAPSULE (SPIRIVA) INH SCH (07:15)
[2019-02-10] MEDS: SYMBICORT 160/4.5MCG INHALER 6GM INH SCH ×2 (07:15→19:30)
[2019-02-10] MEDS: IPRATROPIUM 0.5MG/ALBUTEROL 2.5MG INH SOL UD 3ML (DUONEB)(J7620) NEB PRN ×2 (07:15→15:10)
[2019-02-10] MEDS: HumaLOG INSULIN (NovoLOG) PER UNIT SC SCH ×4 (07:30→20:31)
[2019-02-10] MEDS: ANALGESIC BALM CRM 120 GM TOP SCH ×4 (09:00→20:32)
[2019-02-10] MEDS: LEVEMIR (INSULIN DETEMIR) 1 UNITS/0.01ML SC SCH (09:00)
[2019-02-10] MEDS: SENOKOT S TAB PO SCH ×2 (09:00→20:31)
[2019-02-10] MEDS: PANTOPRAZOLE 40MG TAB (PROTONIX) PO SCH (09:00)
[2019-02-10] MEDS: ATORVASTATIN 10 MG TAB PO SCH (09:00)
[2019-02-10] MEDS: ASCORBIC ACID 500 MG TAB PO SCH ×2 (12:02→20:31)
[2019-02-10] MEDS: ASPIRIN 81 MG ENTERIC TAB PO SCH (12:02)
[2019-02-10] MEDS: FERROUS SULFATE 325MG TAB PO SCH ×2 (12:02→20:31)
[2019-02-10] MEDS: TORSEMIDE 20 MG TAB PO SCH (12:03)
[2019-02-10] MEDS: LEVALBUTEROL 1.25 MG/0.5 ML CONCENTRATE NEB INH PRN (18:01)
[2019-02-11 06:00] VITALS: BP 137/61
[2019-02-11] MEDS: HumaLOG INSULIN (NovoLOG) PER UNIT SC SCH ×4 (07:35→21:00)
[2019-02-11] MEDS: LEVEMIR (INSULIN DETEMIR) 1 UNITS/0.01ML SC SCH (07:36)
[2019-02-11] MEDS: TIOTROPIUM INHALER/CAPSULE (SPIRIVA) INH SCH (07:39)
[2019-02-11] MEDS: SYMBICORT 160/4.5MCG INHALER 6GM INH SCH ×2 (07:40→21:57)
[2019-02-11] MEDS: ASCORBIC ACID 500 MG TAB PO SCH ×2 (09:06→21:20)
[2019-02-11] MEDS: PANTOPRAZOLE 40MG TAB (PROTONIX) PO SCH (09:06)
[2019-02-11] MEDS: SENOKOT S TAB PO SCH ×2 (09:06→21:00)
[2019-02-11] MEDS: ATORVASTATIN 10 MG TAB PO SCH (09:06)
[2019-02-11] MEDS: ANALGESIC BALM CRM 120 GM TOP SCH ×4 (09:07→21:21)
[2019-02-11] MEDS: FERROUS SULFATE 325MG TAB PO SCH ×2 (09:07→21:20)
[2019-02-11] MEDS: ASPIRIN 81 MG ENTERIC TAB PO SCH (10:58)
[2019-02-11] MEDS: TORSEMIDE 20 MG TAB PO SCH (10:58)
[2019-02-11] MEDS: IPRATROPIUM 0.5MG/ALBUTEROL 2.5MG INH SOL UD 3ML (DUONEB)(J7620) NEB PRN (21:57)
[2019-02-12 06:00] VITALS: BP 138/76
[2019-02-12] MEDS: HumaLOG INSULIN (NovoLOG) PER UNIT SC SCH ×4 (06:58→21:00)
[2019-02-12] MEDS: SYMBICORT 160/4.5MCG INHALER 6GM INH SCH ×2 (07:19→19:40)
[2019-02-12] MEDS: LEVALBUTEROL 1.25 MG/0.5 ML CONCENTRATE NEB INH PRN ×3 (07:19→17:51)
[2019-02-12] MEDS: TIOTROPIUM INHALER/CAPSULE (SPIRIVA) INH SCH (07:20)
[2019-02-12] MEDS: ASPIRIN 81 MG ENTERIC TAB PO SCH (08:30)
[2019-02-12] MEDS: ALPRAZolam 0.25 MG TAB PO PRN (08:30)
[2019-02-12] MEDS: TORSEMIDE 20 MG TAB PO SCH (08:30)
[2019-02-12] MEDS: SENOKOT S TAB PO SCH ×2 (09:19→21:00)
[2019-02-12] MEDS: ASCORBIC ACID 500 MG TAB PO SCH ×2 (09:19→21:00)
[2019-02-12] MEDS: ATORVASTATIN 10 MG TAB PO SCH (09:19)
[2019-02-12] MEDS: PANTOPRAZOLE 40MG TAB (PROTONIX) PO SCH (09:19)
[2019-02-12] MEDS: FERROUS SULFATE 325MG TAB PO SCH ×2 (09:19→21:00)
[2019-02-12] MEDS: ANALGESIC BALM CRM 120 GM TOP SCH ×3 (09:20→21:00)
[2019-02-12] MEDS: LEVEMIR (INSULIN DETEMIR) 1 UNITS/0.01ML SC SCH (09:20)
[2019-02-12] MEDS: IPRATROPIUM 0.5MG/ALBUTEROL 2.5MG INH SOL UD 3ML (DUONEB)(J7620) NEB PRN ×2 (13:02→19:40)
[2019-02-13 06:00] VITALS: BP 140/82
[2019-02-13] MEDS: HumaLOG INSULIN (NovoLOG) PER UNIT SC SCH ×4 (07:42→21:00)
[2019-02-13] MEDS: SYMBICORT 160/4.5MCG INHALER 6GM INH SCH ×2 (08:00→21:00)
[2019-02-13] MEDS: TIOTROPIUM INHALER/CAPSULE (SPIRIVA) INH SCH (08:00)
[2019-02-13] MEDS: LEVEMIR (INSULIN DETEMIR) 1 UNITS/0.01ML SC SCH (09:44)
[2019-02-13] MEDS: predniSONE 10 MG TAB PO SCH (09:53)
[2019-02-13] MEDS: TORSEMIDE 20 MG TAB PO SCH (09:54)
[2019-02-13] MEDS: ASPIRIN 81 MG ENTERIC TAB PO SCH (09:54)
[2019-02-13] MEDS: ATORVASTATIN 10 MG TAB PO SCH (09:55)
[2019-02-13] MEDS: FERROUS SULFATE 325MG TAB PO SCH ×2 (09:55→21:00)
[2019-02-13] MEDS: SENOKOT S TAB PO SCH ×2 (09:55→21:00)
[2019-02-13] MEDS: PANTOPRAZOLE 40MG TAB (PROTONIX) PO SCH (09:55)
[2019-02-13] MEDS: ASCORBIC ACID 500 MG TAB PO SCH ×2 (09:56→21:00)
[2019-02-13] MEDS: ANALGESIC BALM CRM 120 GM TOP SCH ×4 (09:56→21:00)
[2019-02-14 06:00] VITALS: BP 126/61
[2019-02-14] MEDS: SYMBICORT 160/4.5MCG INHALER 6GM INH SCH ×2 (07:45→21:00)
[2019-02-14] MEDS: TIOTROPIUM INHALER/CAPSULE (SPIRIVA) INH SCH (07:45)
[2019-02-14] MEDS: LEVALBUTEROL 1.25 MG/0.5 ML CONCENTRATE NEB INH PRN ×2 (07:45→23:54)
[2019-02-14] MEDS: predniSONE 10 MG TAB PO SCH ×2 (08:05→08:16)
[2019-02-14] MEDS: TORSEMIDE 20 MG TAB PO SCH ×2 (08:05→08:17)
[2019-02-14] MEDS: ASPIRIN 81 MG ENTERIC TAB PO SCH ×2 (08:05→08:17)
[2019-02-14] MEDS: ALPRAZolam 0.25 MG TAB PO PRN (08:06)
[2019-02-14] MEDS: HumaLOG INSULIN (NovoLOG) PER UNIT SC SCH ×4 (08:16→20:03)
[2019-02-14] MEDS: FERROUS SULFATE 325MG TAB PO SCH ×2 (08:17→20:39)
[2019-02-14] MEDS: PANTOPRAZOLE 40MG TAB (PROTONIX) PO SCH (08:17)
[2019-02-14] MEDS: SENOKOT S TAB PO SCH ×2 (08:17→20:39)
[2019-02-14] MEDS: ATORVASTATIN 10 MG TAB PO SCH (08:17)
[2019-02-14] MEDS: ASCORBIC ACID 500 MG TAB PO SCH ×2 (08:17→20:39)
[2019-02-14] MEDS: LEVEMIR (INSULIN DETEMIR) 1 UNITS/0.01ML SC SCH (08:17)
[2019-02-14] MEDS: ANALGESIC BALM CRM 120 GM TOP SCH ×4 (08:18→20:39)
[2019-02-15] MEDS: LEVALBUTEROL 1.25 MG/0.5 ML CONCENTRATE NEB INH PRN ×2 (02:39→07:57)
[2019-02-15 06:00] VITALS: BP 131/71
[2019-02-15] MEDS: HumaLOG INSULIN (NovoLOG) PER UNIT SC SCH ×4 (07:30→20:27)
[2019-02-15] MEDS: TIOTROPIUM INHALER/CAPSULE (SPIRIVA) INH SCH (07:56)
[2019-02-15] MEDS: SYMBICORT 160/4.5MCG INHALER 6GM INH SCH ×2 (07:58→20:07)
[2019-02-15] MEDS: PANTOPRAZOLE 40MG TAB (PROTONIX) PO SCH (09:00)
[2019-02-15] MEDS: ASCORBIC ACID 500 MG TAB PO SCH ×2 (09:00→20:27)
[2019-02-15] MEDS: LEVEMIR (INSULIN DETEMIR) 1 UNITS/0.01ML SC SCH (09:00)
[2019-02-15] MEDS: SENOKOT S TAB PO SCH ×2 (09:00→20:27)
[2019-02-15] MEDS: ATORVASTATIN 10 MG TAB PO SCH (09:00)
[2019-02-15] MEDS: FERROUS SULFATE 325MG TAB PO SCH ×2 (09:00→20:27)
[2019-02-15] MEDS: ASPIRIN 81 MG ENTERIC TAB PO SCH (09:00)
[2019-02-15] MEDS: ANALGESIC BALM CRM 120 GM TOP SCH ×4 (09:00→20:27)
[2019-02-15] MEDS: TORSEMIDE 20 MG TAB PO SCH (09:00)
[2019-02-15] MEDS: predniSONE 10 MG TAB PO SCH (09:00)
--- NOTE | 2019-02-15 15:13 | IPNPDOC ---
Text Note Date of Service The patient was seen on 02/15/19. NOTE Subjective: Patient is a 83-year-old female with a PMHx of COPD on O2, Pulmonary HTN, CAD s/p CABG, Hx of SC, Chronic RBBB, Hx of TIA, Hx of Malaria, Hx of Dysentery, Anxiety, Hx of MRSA, Hx of Diverticulosis, Osteopenia and GERD who presented to the ER immediately after she was discharged because her son was no longer able to care for her at home. Patient was thought to be in COPD exacerbation; however this is her baseline level of functioning. Medications were adjusted back to her outpatient regimen. Patient was seen and examined at the bedside. Patient was pleasant this morning and denied having any shortness of breath. She denied chest pain or palpitations. She did report lower extremity swelling. Denied abdominal pain, nausea, vomiting, diarrhea or constipation. Denied any urinary discomfort. Objective: Vitals (See below) General: Lying in bed, no acute distress, comfortable, Awake / Alert HEENT: NC, AT CVS: RRR, +S1S2 Lungs: Fair air entry b/l, auscultation this morning did not reveal any wheezing, rales or rhonchi Abdomen: Abdomen is soft, without any distention or tenderness Extremities: No calf tenderness, there is 1+ pitting edema bilaterally Assessment and plan: Chronic dyspnea - likely 2/2 chronic COPD; s/p Decompensated diastolic CHF - Patient has no complaints of shortness of breath - Physical with some signs of fluid overload, however, they appear chronic [Chronic hypercapnic / hypoxic respiratory failure - likely 22/ Chronic COPD] - c/w inhaled therapy as ordered - c/w Prednisone [Chronic compensated diastolic CHF] - ECHO 07/16: hyperdynamic LV systolic function, G1 DD, MV poorly visualized - but possible vegetation, echodensity in LA, possibly thrombus - c/w Torsemide Recent treatment for HCAP DM2 with episodes of hypoglycemia - c/w ISS and Levemir 5 units qAM Hx of LLE DVT - Not on anticoagulation at this time Hx of Pulmonary HTN Hx of TIA - c/w ASA Normocytic anemia - Hg stable Hx of Nephrectomy Anxiety - c/w Alprazolam Dementia - On 01/26/18 patient had an evaluation with Psychiatry; deemed not to have the capacity to make decisions CAD s/p stent - c/w ASA and Atorvastatin GI prophylaxis - c/w Protonix DVT prophylaxis - Will resume Heparin Disposition: - PFS / Case management looking into long-term placement options VS,Fishbone, I+O VS, Fishbone, I+O Vital Signs Date Time Temp Pulse Resp B/P (MAP) Pulse Ox O2 Delivery O2 Flow Rate FiO2 02/15/19 09:00 3.0 02/15/19 06:00 98.1 72 19 131/71 (91) 94 I&O- Last 24 Hours up to 6 AM 02/15/19 06:00 Intake Total 1470 ml Output Total 300 ml Balance 1170 ml CODY GRIJALVA MD Feb 15, 2019 15:13
[2019-02-15] MEDS: IPRATROPIUM 0.5MG/ALBUTEROL 2.5MG INH SOL UD 3ML (DUONEB)(J7620) NEB PRN (20:07)
[2019-02-15] MEDS: HEPARIN SOD (PORCINE) 5000 UNITS/ML VIAL SQ SCH (20:27)
[2019-02-16 06:00] VITALS: BP 131/63
[2019-02-16] MEDS: HumaLOG INSULIN (NovoLOG) PER UNIT SC SCH ×4 (07:30→20:26)
[2019-02-16] MEDS: LEVALBUTEROL 1.25 MG/0.5 ML CONCENTRATE NEB INH PRN (07:50)
[2019-02-16] MEDS: SYMBICORT 160/4.5MCG INHALER 6GM INH SCH ×2 (07:51→21:10)
[2019-02-16] MEDS: TIOTROPIUM INHALER/CAPSULE (SPIRIVA) INH SCH (07:52)
[2019-02-16] MEDS: FERROUS SULFATE 325MG TAB PO SCH ×2 (09:00→20:26)
[2019-02-16] MEDS: SENOKOT S TAB PO SCH ×2 (09:00→20:26)
[2019-02-16] MEDS: LEVEMIR (INSULIN DETEMIR) 1 UNITS/0.01ML SC SCH (09:00)
[2019-02-16] MEDS: HEPARIN SOD (PORCINE) 5000 UNITS/ML VIAL SQ SCH ×2 (09:00→20:26)
[2019-02-16] MEDS: ANALGESIC BALM CRM 120 GM TOP SCH ×4 (09:00→20:26)
[2019-02-16] MEDS: ATORVASTATIN 10 MG TAB PO SCH (09:00)
[2019-02-16] MEDS: ASCORBIC ACID 500 MG TAB PO SCH ×2 (09:00→20:26)
[2019-02-16] MEDS: PANTOPRAZOLE 40MG TAB (PROTONIX) PO SCH (09:00)
[2019-02-16] MEDS: TORSEMIDE 20 MG TAB PO SCH (09:07)
[2019-02-16] MEDS: ASPIRIN 81 MG ENTERIC TAB PO SCH (09:07)
[2019-02-16] MEDS: predniSONE 10 MG TAB PO SCH (09:07)
[2019-02-16 15:21] VITALS: BP 131/58
[2019-02-16] MEDS: IPRATROPIUM 0.5MG/ALBUTEROL 2.5MG INH SOL UD 3ML (DUONEB)(J7620) NEB PRN (21:10)
[2019-02-17 06:00] VITALS: BP 143/64
[2019-02-17] MEDS: HumaLOG INSULIN (NovoLOG) PER UNIT SC SCH ×4 (07:27→21:18)
[2019-02-17] MEDS: ASPIRIN 81 MG ENTERIC TAB PO SCH (08:41)
[2019-02-17] MEDS: predniSONE 10 MG TAB PO SCH (08:41)
[2019-02-17] MEDS: TORSEMIDE 20 MG TAB PO SCH (08:41)
[2019-02-17] MEDS: ATORVASTATIN 10 MG TAB PO SCH (08:46)
[2019-02-17] MEDS: FERROUS SULFATE 325MG TAB PO SCH ×2 (08:46→21:18)
[2019-02-17] MEDS: LEVEMIR (INSULIN DETEMIR) 1 UNITS/0.01ML SC SCH (08:47)
[2019-02-17] MEDS: SENOKOT S TAB PO SCH ×2 (08:47→21:18)
[2019-02-17] MEDS: ANALGESIC BALM CRM 120 GM TOP SCH ×4 (08:47→21:19)
[2019-02-17] MEDS: HEPARIN SOD (PORCINE) 5000 UNITS/ML VIAL SQ SCH ×2 (08:47→21:19)
[2019-02-17] MEDS: ASCORBIC ACID 500 MG TAB PO SCH ×2 (08:47→21:18)
[2019-02-17] MEDS: PANTOPRAZOLE 40MG TAB (PROTONIX) PO SCH (08:47)
[2019-02-17] MEDS: LEVALBUTEROL 1.25 MG/0.5 ML CONCENTRATE NEB INH PRN (11:49)
[2019-02-17] MEDS: TIOTROPIUM INHALER/CAPSULE (SPIRIVA) INH SCH (11:49)
[2019-02-17] MEDS: SYMBICORT 160/4.5MCG INHALER 6GM INH SCH ×2 (11:49→21:13)
[2019-02-17 21:00] VITALS: BP 141/81
[2019-02-17] MEDS: IPRATROPIUM 0.5MG/ALBUTEROL 2.5MG INH SOL UD 3ML (DUONEB)(J7620) NEB PRN (21:14)
[2019-02-18] MEDS: TIOTROPIUM INHALER/CAPSULE (SPIRIVA) INH SCH (07:59)
[2019-02-18] MEDS: LEVALBUTEROL 1.25 MG/0.5 ML CONCENTRATE NEB INH PRN ×2 (07:59→13:45)
[2019-02-18] MEDS: SYMBICORT 160/4.5MCG INHALER 6GM INH SCH ×2 (07:59→20:18)
[2019-02-18] MEDS: SENOKOT S TAB PO SCH ×2 (09:00→20:44)
[2019-02-18] MEDS: HumaLOG INSULIN (NovoLOG) PER UNIT SC SCH ×4 (09:01→20:44)
[2019-02-18] MEDS: ASPIRIN 81 MG ENTERIC TAB PO SCH (09:02)
[2019-02-18] MEDS: FERROUS SULFATE 325MG TAB PO SCH ×2 (09:02→20:43)
[2019-02-18] MEDS: ATORVASTATIN 10 MG TAB PO SCH (09:02)
[2019-02-18] MEDS: predniSONE 10 MG TAB PO SCH (09:02)
[2019-02-18] MEDS: PANTOPRAZOLE 40MG TAB (PROTONIX) PO SCH (09:02)
[2019-02-18] MEDS: TORSEMIDE 20 MG TAB PO SCH (09:02)
[2019-02-18] MEDS: ASCORBIC ACID 500 MG TAB PO SCH ×2 (09:03→20:44)
[2019-02-18] MEDS: LEVEMIR (INSULIN DETEMIR) 1 UNITS/0.01ML SC SCH (09:03)
[2019-02-18] MEDS: HEPARIN SOD (PORCINE) 5000 UNITS/ML VIAL SQ SCH ×2 (09:03→20:44)
[2019-02-18] MEDS: ANALGESIC BALM CRM 120 GM TOP SCH ×4 (09:03→20:44)
[2019-02-18] MEDS: IPRATROPIUM 0.5MG/ALBUTEROL 2.5MG INH SOL UD 3ML (DUONEB)(J7620) NEB PRN (21:59)
[2019-02-19] MEDS: IPRATROPIUM 0.5MG/ALBUTEROL 2.5MG INH SOL UD 3ML (DUONEB)(J7620) NEB PRN ×3 (05:33→19:24)
[2019-02-19 06:00] VITALS: BP 128/61
[2019-02-19] MEDS: SYMBICORT 160/4.5MCG INHALER 6GM INH SCH ×2 (07:24→19:57)
[2019-02-19] MEDS: LEVALBUTEROL 1.25 MG/0.5 ML CONCENTRATE NEB INH PRN (07:24)
[2019-02-19] MEDS: TIOTROPIUM INHALER/CAPSULE (SPIRIVA) INH SCH (07:24)
[2019-02-19] MEDS: TORSEMIDE 20 MG TAB PO SCH (09:20)
[2019-02-19] MEDS: FERROUS SULFATE 325MG TAB PO SCH ×2 (09:20→19:56)
[2019-02-19] MEDS: HumaLOG INSULIN (NovoLOG) PER UNIT SC SCH ×4 (09:20→19:57)
[2019-02-19] MEDS: ASPIRIN 81 MG ENTERIC TAB PO SCH (09:20)
[2019-02-19] MEDS: ATORVASTATIN 10 MG TAB PO SCH (09:20)
[2019-02-19] MEDS: predniSONE 10 MG TAB PO SCH (09:20)
[2019-02-19] MEDS: LEVEMIR (INSULIN DETEMIR) 1 UNITS/0.01ML SC SCH (09:21)
[2019-02-19] MEDS: SENOKOT S TAB PO SCH ×2 (09:21→19:56)
[2019-02-19] MEDS: PANTOPRAZOLE 40MG TAB (PROTONIX) PO SCH (09:21)
[2019-02-19] MEDS: ASCORBIC ACID 500 MG TAB PO SCH ×2 (09:21→19:56)
[2019-02-19] MEDS: ANALGESIC BALM CRM 120 GM TOP SCH ×4 (09:22→19:58)
[2019-02-19] MEDS: HEPARIN SOD (PORCINE) 5000 UNITS/ML VIAL SQ SCH ×2 (09:22→19:57)
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
[2019-02-19] MEDS: ALPRAZolam 0.25 MG TAB PO PRN (15:37)
[2019-02-20 06:00] VITALS: BP 143/77
[2019-02-20] MEDS: TIOTROPIUM INHALER/CAPSULE (SPIRIVA) INH SCH (07:18)
[2019-02-20] MEDS: IPRATROPIUM 0.5MG/ALBUTEROL 2.5MG INH SOL UD 3ML (DUONEB)(J7620) NEB PRN ×2 (07:18→12:30)
[2019-02-20] MEDS: SYMBICORT 160/4.5MCG INHALER 6GM INH SCH ×2 (07:19→19:59)
[2019-02-20] MEDS: FERROUS SULFATE 325MG TAB PO SCH ×2 (08:06→21:00)
[2019-02-20] MEDS: ATORVASTATIN 10 MG TAB PO SCH (08:06)
[2019-02-20] MEDS: HumaLOG INSULIN (NovoLOG) PER UNIT SC SCH ×4 (08:06→21:00)
[2019-02-20] MEDS: PANTOPRAZOLE 40MG TAB (PROTONIX) PO SCH (08:06)
[2019-02-20] MEDS: SENOKOT S TAB PO SCH ×2 (08:06→21:00)
[2019-02-20] MEDS: ASCORBIC ACID 500 MG TAB PO SCH ×2 (08:07→21:00)
[2019-02-20] MEDS: LEVEMIR (INSULIN DETEMIR) 1 UNITS/0.01ML SC SCH (08:07)
[2019-02-20] MEDS: HEPARIN SOD (PORCINE) 5000 UNITS/ML VIAL SQ SCH ×2 (08:08→21:00)
[2019-02-20] MEDS: ANALGESIC BALM CRM 120 GM TOP SCH ×3 (08:08→21:00)
[2019-02-20] MEDS: predniSONE 10 MG TAB PO SCH (09:10)
[2019-02-20] MEDS: TORSEMIDE 20 MG TAB PO SCH (09:10)
[2019-02-20] MEDS: ASPIRIN 81 MG ENTERIC TAB PO SCH (09:10)
[2019-02-20] MEDS: diphenhydrAMINE 25 MG CAP PO PRN (20:29)
[2019-02-20] MEDS: ALPRAZolam 0.25 MG TAB PO PRN (20:29)
[2019-02-21] MEDS: HumaLOG INSULIN (NovoLOG) PER UNIT SC SCH ×4 (07:28→21:00)
[2019-02-21] MEDS: PANTOPRAZOLE 40MG TAB (PROTONIX) PO SCH (07:29)
[2019-02-21] MEDS: FERROUS SULFATE 325MG TAB PO SCH ×2 (07:29→21:00)
[2019-02-21] MEDS: ATORVASTATIN 10 MG TAB PO SCH (07:29)
[2019-02-21] MEDS: SENOKOT S TAB PO SCH ×2 (07:29→21:00)
[2019-02-21] MEDS: HEPARIN SOD (PORCINE) 5000 UNITS/ML VIAL SQ SCH ×2 (07:30→21:00)
[2019-02-21] MEDS: ASCORBIC ACID 500 MG TAB PO SCH ×2 (07:30→21:00)
[2019-02-21] MEDS: ANALGESIC BALM CRM 120 GM TOP SCH ×4 (07:30→21:00)
[2019-02-21] MEDS: LEVEMIR (INSULIN DETEMIR) 1 UNITS/0.01ML SC SCH (07:30)
[2019-02-21] MEDS: TIOTROPIUM INHALER/CAPSULE (SPIRIVA) INH SCH (07:56)
[2019-02-21] MEDS: SYMBICORT 160/4.5MCG INHALER 6GM INH SCH ×2 (07:57→21:20)
[2019-02-21] MEDS: predniSONE 10 MG TAB PO SCH (09:00)
[2019-02-21] MEDS: ASPIRIN 81 MG ENTERIC TAB PO SCH (09:00)
[2019-02-21] MEDS: TORSEMIDE 20 MG TAB PO SCH (09:55)
[2019-02-21] MEDS: LEVALBUTEROL 1.25 MG/0.5 ML CONCENTRATE NEB INH PRN (21:21)
[2019-02-22] MEDS: HumaLOG INSULIN (NovoLOG) PER UNIT SC SCH ×4 (07:30→21:00)
[2019-02-22] MEDS: predniSONE 10 MG TAB PO SCH (08:53)
[2019-02-22] MEDS: TORSEMIDE 20 MG TAB PO SCH (08:53)
[2019-02-22] MEDS: FERROUS SULFATE 325MG TAB PO SCH ×2 (09:00→21:00)
[2019-02-22] MEDS: SENOKOT S TAB PO SCH ×2 (09:00→21:00)
[2019-02-22] MEDS: PANTOPRAZOLE 40MG TAB (PROTONIX) PO SCH (09:00)
[2019-02-22] MEDS: HEPARIN SOD (PORCINE) 5000 UNITS/ML VIAL SQ SCH ×2 (09:00→21:00)
[2019-02-22] MEDS: LEVEMIR (INSULIN DETEMIR) 1 UNITS/0.01ML SC SCH (09:00)
[2019-02-22] MEDS: ANALGESIC BALM CRM 120 GM TOP SCH ×4 (09:00→21:00)
[2019-02-22] MEDS: SYMBICORT 160/4.5MCG INHALER 6GM INH SCH ×2 (09:00→11:08)
[2019-02-22] MEDS: ASPIRIN 81 MG ENTERIC TAB PO SCH (09:00)
[2019-02-22] MEDS: ATORVASTATIN 10 MG TAB PO SCH (09:00)
[2019-02-22] MEDS: ASCORBIC ACID 500 MG TAB PO SCH ×2 (09:00→21:00)
[2019-02-22] MEDS: TIOTROPIUM INHALER/CAPSULE (SPIRIVA) INH SCH (11:07)
[2019-02-22] MEDS: LEVALBUTEROL 1.25 MG/0.5 ML CONCENTRATE NEB INH PRN (11:08)
[2019-02-23 06:00] VITALS: BP 133/60
[2019-02-23] MEDS: HumaLOG INSULIN (NovoLOG) PER UNIT SC SCH ×4 (07:02→21:00)
[2019-02-23] MEDS: TIOTROPIUM INHALER/CAPSULE (SPIRIVA) INH SCH (08:00)
[2019-02-23] MEDS: predniSONE 10 MG TAB PO SCH (08:52)
[2019-02-23] MEDS: TORSEMIDE 20 MG TAB PO SCH (08:53)
[2019-02-23] MEDS: ASCORBIC ACID 500 MG TAB PO SCH ×2 (08:53→21:00)
[2019-02-23] MEDS: SENOKOT S TAB PO SCH ×2 (08:53→21:00)
[2019-02-23] MEDS: ASPIRIN 81 MG ENTERIC TAB PO SCH (08:53)
[2019-02-23] MEDS: ATORVASTATIN 10 MG TAB PO SCH (08:53)
[2019-02-23] MEDS: FERROUS SULFATE 325MG TAB PO SCH ×2 (08:53→21:00)
[2019-02-23] MEDS: PANTOPRAZOLE 40MG TAB (PROTONIX) PO SCH (08:53)
[2019-02-23] MEDS: HEPARIN SOD (PORCINE) 5000 UNITS/ML VIAL SQ SCH ×2 (08:54→21:00)
[2019-02-23] MEDS: LEVEMIR (INSULIN DETEMIR) 1 UNITS/0.01ML SC SCH (08:54)
[2019-02-23] MEDS: ANALGESIC BALM CRM 120 GM TOP SCH ×4 (08:54→21:00)
[2019-02-23] MEDS: SYMBICORT 160/4.5MCG INHALER 6GM INH SCH ×2 (08:58→20:48)
[2019-02-23] MEDS: LEVALBUTEROL 1.25 MG/0.5 ML CONCENTRATE NEB INH PRN ×2 (15:20→23:53)
[2019-02-23] MEDS: diphenhydrAMINE 25 MG CAP PO PRN (23:53)
[2019-02-23] MEDS: ALPRAZolam 0.25 MG TAB PO PRN (23:53)
[2019-02-24] MEDS: IPRATROPIUM 0.5MG/ALBUTEROL 2.5MG INH SOL UD 3ML (DUONEB)(J7620) NEB PRN (00:26)
[2019-02-24 06:00] VITALS: BP 132/60
[2019-02-24] MEDS: HumaLOG INSULIN (NovoLOG) PER UNIT SC SCH ×4 (07:30→21:00)
[2019-02-24] MEDS: TIOTROPIUM INHALER/CAPSULE (SPIRIVA) INH SCH (08:04)
[2019-02-24] MEDS: LEVALBUTEROL 1.25 MG/0.5 ML CONCENTRATE NEB INH PRN (08:04)
[2019-02-24] MEDS: SYMBICORT 160/4.5MCG INHALER 6GM INH SCH ×2 (08:05→21:00)
[2019-02-24] MEDS: PANTOPRAZOLE 40MG TAB (PROTONIX) PO SCH (09:00)
[2019-02-24] MEDS: ANALGESIC BALM CRM 120 GM TOP SCH ×4 (09:00→21:07)
[2019-02-24] MEDS: FERROUS SULFATE 325MG TAB PO SCH ×2 (09:00→21:05)
[2019-02-24] MEDS: ASCORBIC ACID 500 MG TAB PO SCH ×2 (09:00→21:05)
[2019-02-24] MEDS: LEVEMIR (INSULIN DETEMIR) 1 UNITS/0.01ML SC SCH (09:00)
[2019-02-24] MEDS: SENOKOT S TAB PO SCH ×2 (09:00→21:05)
[2019-02-24] MEDS: HEPARIN SOD (PORCINE) 5000 UNITS/ML VIAL SQ SCH ×2 (09:00→21:00)
[2019-02-24] MEDS: ATORVASTATIN 10 MG TAB PO SCH (09:00)
[2019-02-24] MEDS: ASPIRIN 81 MG ENTERIC TAB PO SCH (11:56)
[2019-02-24] MEDS: TORSEMIDE 20 MG TAB PO SCH (11:56)
[2019-02-24] MEDS: predniSONE 10 MG TAB PO SCH (11:56)
[2019-02-25 06:00] VITALS: BP 130/60
[2019-02-25] MEDS: HumaLOG INSULIN (NovoLOG) PER UNIT SC SCH ×4 (07:30→21:00)
[2019-02-25] MEDS: ATORVASTATIN 10 MG TAB PO SCH (08:51)
[2019-02-25] MEDS: SENOKOT S TAB PO SCH ×2 (08:51→21:00)
[2019-02-25] MEDS: predniSONE 10 MG TAB PO SCH ×2 (08:51→09:00)
[2019-02-25] MEDS: TORSEMIDE 20 MG TAB PO SCH (08:51)
[2019-02-25] MEDS: ASPIRIN 81 MG ENTERIC TAB PO SCH (08:51)
[2019-02-25] MEDS: PANTOPRAZOLE 40MG TAB (PROTONIX) PO SCH (08:51)
[2019-02-25] MEDS: FERROUS SULFATE 325MG TAB PO SCH ×2 (08:51→21:00)
[2019-02-25] MEDS: HEPARIN SOD (PORCINE) 5000 UNITS/ML VIAL SQ SCH ×2 (08:52→21:00)
[2019-02-25] MEDS: ASCORBIC ACID 500 MG TAB PO SCH ×2 (08:52→21:00)
[2019-02-25] MEDS: ANALGESIC BALM CRM 120 GM TOP SCH ×4 (08:52→21:00)
[2019-02-25] MEDS: LEVEMIR (INSULIN DETEMIR) 1 UNITS/0.01ML SC SCH (08:52)
[2019-02-25] MEDS: LEVALBUTEROL 1.25 MG/0.5 ML CONCENTRATE NEB INH PRN (09:00)
[2019-02-25] MEDS: TIOTROPIUM INHALER/CAPSULE (SPIRIVA) INH SCH (10:02)
[2019-02-25] MEDS: SYMBICORT 160/4.5MCG INHALER 6GM INH SCH ×2 (10:02→20:42)
[2019-02-26 06:00] VITALS: BP 128/60
[2019-02-26] MEDS: HumaLOG INSULIN (NovoLOG) PER UNIT SC SCH ×4 (07:30→21:00)
[2019-02-26] MEDS: SYMBICORT 160/4.5MCG INHALER 6GM INH SCH ×2 (07:58→19:45)
[2019-02-26] MEDS: TIOTROPIUM INHALER/CAPSULE (SPIRIVA) INH SCH (07:58)
[2019-02-26] MEDS: ANALGESIC BALM CRM 120 GM TOP SCH ×4 (09:00→21:00)
[2019-02-26] MEDS: FERROUS SULFATE 325MG TAB PO SCH ×2 (09:00→21:00)
[2019-02-26] MEDS: SENOKOT S TAB PO SCH ×2 (09:00→21:00)
[2019-02-26] MEDS: ASCORBIC ACID 500 MG TAB PO SCH ×2 (09:00→21:00)
[2019-02-26] MEDS: PANTOPRAZOLE 40MG TAB (PROTONIX) PO SCH (09:00)
[2019-02-26] MEDS: HEPARIN SOD (PORCINE) 5000 UNITS/ML VIAL SQ SCH ×2 (09:00→21:00)
[2019-02-26] MEDS: predniSONE 10 MG TAB PO SCH (09:00)
[2019-02-26] MEDS: LEVEMIR (INSULIN DETEMIR) 1 UNITS/0.01ML SC SCH (09:00)
[2019-02-26] MEDS: TORSEMIDE 20 MG TAB PO SCH ×2 (09:00→18:41)
[2019-02-26] MEDS: ATORVASTATIN 10 MG TAB PO SCH (09:00)
[2019-02-26] MEDS: ASPIRIN 81 MG ENTERIC TAB PO SCH (09:00)
--- NOTE | 2019-02-26 16:20 | IPN ---
DATE: 02/26/2019 SUBJECTIVE: Patient is seen and examined in the room today. Patient denied any acute complaints. Patient stated her breathing is stable. Patient still refuses laboratory tests. Patient continues to have significant lower extremity swelling. OBJECTIVE: VITAL SIGNS: Temperature 98.9, pulse 88, respirations 20, blood pressure is 128/60, pulse oximetry 96% with 3 liters nasal cannula. GENERAL: Patient is alert and awake, comfortable. HEENT: Normocephalic, atraumatic. Extraocular motor grossly intact. CARDIOVASCULAR: Positive S1, S2, regular rate. LUNGS: Clear to auscultation bilaterally. Decreased breath sounds. No significant wheezes or rhonchi. ABDOMEN: Soft and nontender. Positive bowel sounds. EXTREMITIES: 2+ positive pitting edema bilaterally. LABORATORY DATA: Most recent laboratory data was from 02/05/2019. It showed WBC 12.5, hemoglobin 9.5, hematocrit 29.6, platelet count is 382. Sodium is 137, potassium 3.7, chloride 100, carbon dioxide 31, BUN 11, creatinine 0.61, GFR greater than 60, fasting glucose 128, calcium 9.1, magnesium 1.8. ASSESSMENT AND PLAN: 1. Chronic dyspnea secondary to chronic obstructive pulmonary disease (COPD). Patient also demonstrates intermittent sign of diastolic congestive heart failure exacerbation. At this moment, patient has chronic lower extremity swelling. Patient states she will continue leg elevation if she wants to. Torsemide has been ordered for the patient. The patient has been refusing the medication most of the time. Patient's noncompliance complicates her care. 2. History of hospital-acquired pneumonia status post treatment. 3. History of left lower extremity deep vein thrombosis (DVT). Patient has been refusing medications. The patient even refused heparin subcutaneous. 4. History of pulmonary hypertension. Patient is on torsemide; however, patient has not been taking her medication as instructed on a daily basis. 5. History of transient ischemic attack (TIA). Aspirin ordered. 6. Anxiety, on Xanax as needed. 7. Dementia. Patient was evaluated by psychiatry previously. Patient does not have capacity to make decisions. Patient is waiting for placement. 8. Coronary artery disease, status post stent. Aspirin ordered. Lipitor ordered. 9. DVT prophylaxis. Heparin ordered. [facility]
[2019-02-26] MEDS: IPRATROPIUM 0.5MG/ALBUTEROL 2.5MG INH SOL UD 3ML (DUONEB)(J7620) NEB PRN (19:45)
[2019-02-27 06:00] VITALS: BP 145/66
[2019-02-27] MEDS: HumaLOG INSULIN (NovoLOG) PER UNIT SC SCH ×4 (07:30→21:00)
[2019-02-27] MEDS: TIOTROPIUM INHALER/CAPSULE (SPIRIVA) INH SCH (08:28)
[2019-02-27] MEDS: SYMBICORT 160/4.5MCG INHALER 6GM INH SCH ×2 (08:28→21:52)
[2019-02-27] MEDS: SENOKOT S TAB PO SCH ×2 (09:00→21:00)
[2019-02-27] MEDS: FERROUS SULFATE 325MG TAB PO SCH ×2 (09:00→21:00)
[2019-02-27] MEDS: ASCORBIC ACID 500 MG TAB PO SCH ×2 (09:00→21:00)
[2019-02-27] MEDS: ANALGESIC BALM CRM 120 GM TOP SCH ×4 (09:00→21:00)
[2019-02-27] MEDS: ATORVASTATIN 10 MG TAB PO SCH (09:00)
[2019-02-27] MEDS: HEPARIN SOD (PORCINE) 5000 UNITS/ML VIAL SQ SCH ×2 (09:00→21:00)
[2019-02-27] MEDS: PANTOPRAZOLE 40MG TAB (PROTONIX) PO SCH (09:00)
[2019-02-27] MEDS: ASPIRIN 81 MG ENTERIC TAB PO SCH (09:00)
[2019-02-27] MEDS: predniSONE 10 MG TAB PO SCH (09:00)
[2019-02-27] MEDS: LEVEMIR (INSULIN DETEMIR) 1 UNITS/0.01ML SC SCH (09:00)
[2019-02-27] MEDS: IPRATROPIUM 0.5MG/ALBUTEROL 2.5MG INH SOL UD 3ML (DUONEB)(J7620) NEB PRN (21:52)
[2019-02-28] MEDS: HumaLOG INSULIN (NovoLOG) PER UNIT SC SCH ×4 (07:30→21:00)
[2019-02-28] MEDS: TIOTROPIUM INHALER/CAPSULE (SPIRIVA) INH SCH (07:49)
[2019-02-28] MEDS: SYMBICORT 160/4.5MCG INHALER 6GM INH SCH ×2 (07:49→21:00)
--- NOTE | 2019-02-28 07:53 | REPVR ---
EXAM: CT Head Without Contrast EXAM DATE/TIME: 02/28/2019 6:02 AM CLINICAL HISTORY: 83 years old, female; Injury or trauma; Fall; Additional info: Fell, scalp tear from hitting head, ? brain bleed TECHNIQUE: Imaging protocol: Axial computed tomography images of the head/brain without contrast. Radiation optimization: All CT scans at this facility use at least one of these dose optimization techniques: automated exposure control; mA and/or kV adjustment per patient size (includes targeted exams where dose is matched to clinical indication); or iterative reconstruction. COMPARISON: CT Head without contrast 02/03/2019 1:41 AM FINDINGS: Brain: Lucencies in the white matter, most suggestive of chronic microvascular ischemic disease, do not appear significantly changed. No intracranial hemorrhage or extraaxial collection is identified. There is no significant intracranial mass effect. Ventricles: The ventricles and sulci are stable in configuration, with similar atrophy. Bones/joints: Unremarkable. No acute fracture. Sinuses: Visualized sinuses are unremarkable. No acute sinusitis. Mastoid air cells: Visualized mastoid air cells are unremarkable. No mastoid effusion. Soft tissues: Unremarkable. Vasculature: Intracranial atherosclerotic vascular calcifications are again present. IMPRESSION: No CT evidence for acute intracranial abnormality or significant change since 02/03/19. Electronically signed by: Gabriele Niño On 02/28/2019 07:53:47 AM
[2019-02-28] MEDS: TORSEMIDE 20 MG TAB PO SCH (07:54)
[2019-02-28] MEDS: predniSONE 10 MG TAB PO SCH (07:54)
[2019-02-28] MEDS: ASPIRIN 81 MG ENTERIC TAB PO SCH (07:55)
[2019-02-28] MEDS: FERROUS SULFATE 325MG TAB PO SCH ×2 (07:56→21:00)
[2019-02-28] MEDS: ATORVASTATIN 10 MG TAB PO SCH (07:56)
[2019-02-28] MEDS: PANTOPRAZOLE 40MG TAB (PROTONIX) PO SCH (07:56)
[2019-02-28] MEDS: ASCORBIC ACID 500 MG TAB PO SCH ×2 (07:57→21:00)
[2019-02-28] MEDS: LEVEMIR (INSULIN DETEMIR) 1 UNITS/0.01ML SC SCH (07:57)
[2019-02-28] MEDS: SENOKOT S TAB PO SCH ×2 (07:57→21:00)
[2019-02-28] MEDS: HEPARIN SOD (PORCINE) 5000 UNITS/ML VIAL SQ SCH ×2 (07:57→21:00)
[2019-02-28] MEDS: ANALGESIC BALM CRM 120 GM TOP SCH ×4 (07:58→21:00)
--- NOTE | 2019-02-28 08:37 | REP ---
Bilateral rib series: Five views including PA chest. History: Injury in a fall. Difficulty breathing due to rib pain. Comparison chest radiographs January 17, 2019. Findings: AP chest radiograph shows no evidence of pneumothorax. There is slight blunting of the pleural angles bilaterally although this is unchanged from January 17, 2019. Mediastinum is not widened. Heart is enlarged as before. Prior sternotomy wires are seen. There is diffuse osteopenia. Advanced degenerative arthritis is seen in the shoulders bilaterally. Multiple views of the rib cage bilaterally show no discernible rib fracture. No focal bony destructive lesion is appreciated. Impression: No rib fracture is visualized. Diffuse osteopenia. Cardiomegaly. Slight blunting of the pleural angles bilaterally, similar to prior study. Electronically Signed by Chau Paulson MD 02/28/2019 08:58 A
[2019-02-28] MEDS: LEVALBUTEROL 1.25 MG/0.5 ML CONCENTRATE NEB INH PRN (18:20)
[2019-03-01 06:00] VITALS: BP 135/63
[2019-03-01] MEDS: HumaLOG INSULIN (NovoLOG) PER UNIT SC SCH ×4 (07:30→21:00)
[2019-03-01] MEDS: IPRATROPIUM 0.5MG/ALBUTEROL 2.5MG INH SOL UD 3ML (DUONEB)(J7620) NEB PRN ×4 (07:32→23:35)
[2019-03-01] MEDS: TIOTROPIUM INHALER/CAPSULE (SPIRIVA) INH SCH (07:32)
[2019-03-01] MEDS: SYMBICORT 160/4.5MCG INHALER 6GM INH SCH ×2 (07:32→21:00)
[2019-03-01] MEDS: TORSEMIDE 20 MG TAB PO SCH (09:00)
[2019-03-01] MEDS: PANTOPRAZOLE 40MG TAB (PROTONIX) PO SCH (09:00)
[2019-03-01] MEDS: ASPIRIN 81 MG ENTERIC TAB PO SCH (09:00)
[2019-03-01] MEDS: ATORVASTATIN 10 MG TAB PO SCH (09:00)
[2019-03-01] MEDS: predniSONE 10 MG TAB PO SCH (09:00)
[2019-03-01] MEDS: LEVEMIR (INSULIN DETEMIR) 1 UNITS/0.01ML SC SCH (09:00)
[2019-03-01] MEDS: ANALGESIC BALM CRM 120 GM TOP SCH ×4 (09:00→21:00)
[2019-03-01] MEDS: FERROUS SULFATE 325MG TAB PO SCH ×2 (09:00→21:00)
[2019-03-01] MEDS: ASCORBIC ACID 500 MG TAB PO SCH ×2 (09:00→21:00)
[2019-03-01] MEDS: SENOKOT S TAB PO SCH ×2 (09:00→21:00)
[2019-03-01] MEDS: HEPARIN SOD (PORCINE) 5000 UNITS/ML VIAL SQ SCH ×2 (09:00→21:00)
[2019-03-01] MEDS: LEVALBUTEROL 1.25 MG/0.5 ML CONCENTRATE NEB INH PRN (22:05)
[2019-03-02 06:00] VITALS: BP 136/63
[2019-03-02] MEDS: SYMBICORT 160/4.5MCG INHALER 6GM INH SCH ×2 (07:14→19:50)
[2019-03-02] MEDS: TIOTROPIUM INHALER/CAPSULE (SPIRIVA) INH SCH (07:14)
[2019-03-02] MEDS: TORSEMIDE 20 MG TAB PO SCH (09:18)
[2019-03-02] MEDS: HumaLOG INSULIN (NovoLOG) PER UNIT SC SCH ×4 (09:18→21:00)
[2019-03-02] MEDS: predniSONE 10 MG TAB PO SCH (09:18)
[2019-03-02] MEDS: PANTOPRAZOLE 40MG TAB (PROTONIX) PO SCH (09:19)
[2019-03-02] MEDS: SENOKOT S TAB PO SCH ×2 (09:19→21:00)
[2019-03-02] MEDS: ASPIRIN 81 MG ENTERIC TAB PO SCH (09:19)
[2019-03-02] MEDS: FERROUS SULFATE 325MG TAB PO SCH ×2 (09:19→21:00)
[2019-03-02] MEDS: ATORVASTATIN 10 MG TAB PO SCH (09:19)
[2019-03-02] MEDS: ASCORBIC ACID 500 MG TAB PO SCH ×2 (09:19→21:00)
[2019-03-02] MEDS: LEVEMIR (INSULIN DETEMIR) 1 UNITS/0.01ML SC SCH (09:19)
[2019-03-02] MEDS: HEPARIN SOD (PORCINE) 5000 UNITS/ML VIAL SQ SCH ×2 (09:19→21:00)
[2019-03-02] MEDS: ANALGESIC BALM CRM 120 GM TOP SCH ×4 (09:20→21:00)
[2019-03-02] MEDS: IPRATROPIUM 0.5MG/ALBUTEROL 2.5MG INH SOL UD 3ML (DUONEB)(J7620) NEB PRN (19:51)
[2019-03-03 06:00] VITALS: BP 125/59
[2019-03-03] MEDS: predniSONE 10 MG TAB PO SCH (08:00)
[2019-03-03] MEDS: HumaLOG INSULIN (NovoLOG) PER UNIT SC SCH ×4 (08:00→21:18)
[2019-03-03] MEDS: TIOTROPIUM INHALER/CAPSULE (SPIRIVA) INH SCH ×2 (08:00→08:57)
[2019-03-03] MEDS: ATORVASTATIN 10 MG TAB PO SCH (08:01)
[2019-03-03] MEDS: LEVEMIR (INSULIN DETEMIR) 1 UNITS/0.01ML SC SCH (08:01)
[2019-03-03] MEDS: ASCORBIC ACID 500 MG TAB PO SCH ×2 (08:01→21:16)
[2019-03-03] MEDS: FERROUS SULFATE 325MG TAB PO SCH ×2 (08:01→21:16)
[2019-03-03] MEDS: PANTOPRAZOLE 40MG TAB (PROTONIX) PO SCH (08:01)
[2019-03-03] MEDS: ASPIRIN 81 MG ENTERIC TAB PO SCH (08:01)
[2019-03-03] MEDS: SENOKOT S TAB PO SCH ×2 (08:01→21:16)
[2019-03-03] MEDS: TORSEMIDE 20 MG TAB PO SCH (08:01)
[2019-03-03] MEDS: ANALGESIC BALM CRM 120 GM TOP SCH ×4 (08:02→21:17)
[2019-03-03] MEDS: HEPARIN SOD (PORCINE) 5000 UNITS/ML VIAL SQ SCH ×2 (08:02→21:17)
[2019-03-03] MEDS: SYMBICORT 160/4.5MCG INHALER 6GM INH SCH ×2 (08:56→21:46)
[2019-03-03 22:00] VITALS: BP 133/90
[2019-03-04 06:00] VITALS: BP 139/77
[2019-03-04] MEDS: HumaLOG INSULIN (NovoLOG) PER UNIT SC SCH ×4 (07:30→22:27)
[2019-03-04] MEDS: SYMBICORT 160/4.5MCG INHALER 6GM INH SCH ×2 (07:34→21:40)
[2019-03-04] MEDS: TIOTROPIUM INHALER/CAPSULE (SPIRIVA) INH SCH (07:34)
[2019-03-04] MEDS: FERROUS SULFATE 325MG TAB PO SCH ×2 (09:00→22:27)
[2019-03-04] MEDS: SENOKOT S TAB PO SCH ×2 (09:00→22:28)
[2019-03-04] MEDS: predniSONE 10 MG TAB PO SCH (09:00)
[2019-03-04] MEDS: ANALGESIC BALM CRM 120 GM TOP SCH ×4 (09:00→22:28)
[2019-03-04] MEDS: TORSEMIDE 20 MG TAB PO SCH (09:00)
[2019-03-04] MEDS: PANTOPRAZOLE 40MG TAB (PROTONIX) PO SCH (09:00)
[2019-03-04] MEDS: HEPARIN SOD (PORCINE) 5000 UNITS/ML VIAL SQ SCH ×2 (09:00→22:28)
[2019-03-04] MEDS: ASCORBIC ACID 500 MG TAB PO SCH ×2 (09:00→22:28)
[2019-03-04] MEDS: ATORVASTATIN 10 MG TAB PO SCH (09:00)
[2019-03-04] MEDS: LEVEMIR (INSULIN DETEMIR) 1 UNITS/0.01ML SC SCH (09:00)
[2019-03-04] MEDS: ASPIRIN 81 MG ENTERIC TAB PO SCH (09:00)
[2019-03-04] MEDS: IPRATROPIUM 0.5MG/ALBUTEROL 2.5MG INH SOL UD 3ML (DUONEB)(J7620) NEB PRN ×2 (14:33→18:09)
[2019-03-04 19:17] LABS: HEMATOCRIT 29.1 % (36.0-47.0); HEMOGLOBIN 9.3 g/dl (12.0-15.5); MEAN CORPUSCULAR HEMOGLOBIN 28.9 pg (27.0-33.0); MEAN CORPUSCULAR VOLUME 90.4 fl (80.0-96.0); PLATELET COUNT, AUTOMATED 439 10^3/uL (150-450); RED BLOOD COUNT 3.22 10^6/uL (4.00-5.40); WHITE BLOOD COUNT 11.6 10^3/uL (4.0-10.0)
[2019-03-04 19:31] LABS: BLOOD UREA NITROGEN 13 MG/DL (7-18); CALCIUM LEVEL 8.6 MG/DL (8.8-10.2); CARBON DIOXIDE LEVEL 30 MEQ/L (21-32); CHLORIDE LEVEL 101 MEQ/L (98-107); CREATININE FOR GFR 0.72 MG/DL (0.55-1.30); GLOMERULAR FILTRATION RATE > 60.0 (>32); GLUCOSE, FASTING 179 MG/DL (70-100); POTASSIUM SERUM 3.6 MEQ/L (3.5-5.1); SODIUM LEVEL 138 MEQ/L (136-145)
[2019-03-04 19:36] LABS: CPK CREATINE PHOSPHOKINASE 91 U/L (26-192); MB/CK RELATIVE INDEX 2.53 (< OR =4); TROPONIN I < 0.02 NG/ML (< 0.10)
[2019-03-04] MEDS ORDERED: KETOROLAC 30 MG/ML VIAL (J1885) IV ONE (20:45)
[2019-03-04] MEDS ORDERED: traMADol 50 MG TAB PO ONE (21:00)
[2019-03-04 22:00] VITALS: BP 139/63
[2019-03-05] VITALS (10 sets, daily range): BP systolic 128–196; BP diastolic 62–100
[2019-03-05] MEDS: LEVALBUTEROL 1.25 MG/0.5 ML CONCENTRATE NEB INH PRN (01:06)
[2019-03-05] MEDS: IPRATROPIUM 0.5MG/ALBUTEROL 2.5MG INH SOL UD 3ML (DUONEB)(J7620) NEB PRN ×4 (03:04→15:24)
[2019-03-05] MEDS: ACETAMINOPHEN TAB 650MG DOSE (2X325MG) PO PRN (04:54)
--- NOTE | 2019-03-05 06:37 | ECGEPIP ---
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
[2019-03-05] MEDS: HumaLOG INSULIN (NovoLOG) PER UNIT SC SCH ×4 (07:30→20:13)
--- NOTE | 2019-03-05 07:33 | REP ---
REASON: Acute dyspnea. COMPARISON: Multiple, latest 01/17/2019 and latest portable exam 01/16/2019. There are bibasilar opacities status quo. The heart is enlarged and accentuated by technique. Note is again made of previous median sternotomy. Persistent bibasilar opacities, atelectasis/pneumonia/effusions, correlate clinically with appropriate followup. Consider PA and lateral views of the chest. Electronically Signed by Perry Tsai DO 03/05/2019 04:33 P
[2019-03-05] MEDS: SYMBICORT 160/4.5MCG INHALER 6GM INH SCH ×2 (07:43→20:20)
[2019-03-05] MEDS: TIOTROPIUM INHALER/CAPSULE (SPIRIVA) INH SCH (07:45)
[2019-03-05] MEDS: ATORVASTATIN 10 MG TAB PO SCH (09:00)
[2019-03-05] MEDS: ANALGESIC BALM CRM 120 GM TOP SCH ×4 (09:00→20:20)
[2019-03-05] MEDS: SENOKOT S TAB PO SCH ×2 (09:00→20:13)
[2019-03-05] MEDS: LEVEMIR (INSULIN DETEMIR) 1 UNITS/0.01ML SC SCH (09:00)
[2019-03-05] MEDS: PANTOPRAZOLE 40MG TAB (PROTONIX) PO SCH (09:00)
[2019-03-05] MEDS: ASCORBIC ACID 500 MG TAB PO SCH ×2 (09:00→20:13)
[2019-03-05] MEDS: TORSEMIDE 20 MG TAB PO SCH (09:00)
[2019-03-05] MEDS: FERROUS SULFATE 325MG TAB PO SCH ×2 (09:00→20:13)
[2019-03-05] MEDS: HEPARIN SOD (PORCINE) 5000 UNITS/ML VIAL SQ SCH ×2 (09:00→20:20)
[2019-03-05] MEDS ORDERED: oxyCODONE 5MG TAB PO PRN (09:15)
[2019-03-05] MEDS: predniSONE 10 MG TAB PO SCH (09:21)
[2019-03-05] MEDS: ASPIRIN 81 MG ENTERIC TAB PO SCH (09:21)
--- NOTE | 2019-03-05 13:17 | REP ---
CHEST, PORTABLE: AP portable view of the chest is performed and compared with prior study, 03/04/2019. Bibasilar opacities are stable. Cardiac and mediastinal silhouette are unchanged. Multiple sternal wires and mediastinal clips are present. IMPRESSION: Stable exam. Electronically Signed by Jaiden Fulton MD 03/06/2019 04:39 P
--- NOTE | 2019-03-05 13:30 | IPNPDOC ---
Text Note Date of Service The patient was seen on 03/05/19. NOTE SUBJECTIVE: Patient seen at bedside. Reported by nursing regarding shortness of breath, abdominal pain. Patient refused to provide any additional information. Objective: Refused physical exam. ASSESSMENT AND PLAN: #Respiratory distress - Chronic dyspnea secondary to chronic obstructive pulmonary disease (COPD). - complicated with HFpEF - patient possibly acutely worse this morning - refusing further diagnostic intervention # History of hospital-acquired pneumonia status post treatment. #History of LLE DVT - Patient has been refusing medications - refused heparin subcutaneous. # History of pulmonary hypertension. Patient is on torsemide; however, patient has not been taking her medication as instructed on a daily basis. #History of transient ischemic attack (TIA). Aspirin ordered. #Anxiety, on Xanax as needed. #Dementia. Patient was evaluated by psychiatry previously. Patient does not have capacity to make decisions. Patient is waiting for placement. #CAD/stents - ASA, lipitor #non-compliance - further complicating factor to her medical care # DVT prophylaxis. Heparin ordered. Dispo: poor prognosis; will discuss plan of care further with her family member (HCP) Addendum: discussed with son Enriqueta over the phone. He requested further discus sions with his mother by hospital staff to encourage compliance. States he will be in later today. Discussed option of [employer] PROFESSION[employer]. States he will consider. VS,Fishbone, I+O VS, Fishbone, I+O Laboratory Tests 03/04/19 18:56 Red Blood Count 3.22 L, Mean Corpuscular Volume 90.4, Mean Corpuscular Hemoglobin 28.9, Mean Corpuscular Hemoglobin Concent 32.0, Red Cell Distribution Width 16.4 H, Calcium Level 8.6 L Vital Signs Date Time Temp Pulse Resp B/P (MAP) Pulse Ox O2 Delivery O2 Flow Rate FiO2 03/05/19 10:48 3.0 03/05/19 06:00 97.1 98 20 142/62 (88) 91 03/02/19 07:15 Nasal Cannula I&O- Last 24 Hours up to 6 AM 03/05/19 05:59 Intake Total 1300 ml Output Total 0 ml Balance 1300 ml ENRIQUETA HSIEH MD Mar 05, 2019 13:30
[2019-03-05] MEDS: traMADol 50 MG TAB PO PRN (15:29)
[2019-03-05 15:58] LABS: ABG BASE EXCESS 0.1 (-2.0-2.0); ABG HCO3 24.5 MEQ/L (22.0-26.0); ABG O2 SATURATION 88.9 % (95.0-99.0); ABG PARTIAL PRESSURE CO2 38.3 mmHg (35.0-45.0); ABG PARTIAL PRESSURE O2 57.6 mmHg (75.0-100.0); ABG STANDARD HCO3 24.5 MEQ/L (22.0-26.0); ABG TOTAL CO2 25.6 MEQ/L (23.0-31.0); ABG pH (ARTERIAL) 7.423 UNITS (7.350-7.450)
[2019-03-05 16:03] LABS: BASO % 0.3 % (0.0-1.0); EOS # 0.1 10^3/uL (0.0-0.50); EOS % 0.5 % (0.0-3.0); HEMATOCRIT 27.7 % (36.0-47.0); HEMOGLOBIN 8.8 g/dl (12.0-15.5); LYMPH # 0.4 10^3/uL (1.5-4.5); MEAN CORPUSCULAR HEMOGLOBIN 28.9 pg (27.0-33.0); MEAN CORPUSCULAR HGB CONC 31.8 g/dl (32.0-36.5); MEAN CORPUSCULAR VOLUME 90.8 fl (80.0-96.0); MONO # 0.2 10^3/uL (0.0-0.8); MONO % 1.5 % (0.0-5.0); NEUTROPHILS % 94.2 % (36.0-66.0); PLATELET COUNT, AUTOMATED 437 10^3/uL (150-450); RED BLOOD COUNT 3.05 10^6/uL (4.00-5.40); WHITE BLOOD COUNT 11.7 10^3/uL (4.0-10.0)
[2019-03-05 17:00] LABS: ALBUMIN 2.8 GM/DL (3.2-5.2); ALT/SGPT 22 U/L (12-78); BILIRUBIN,TOTAL 0.7 MG/DL (0.2-1.0); BLOOD UREA NITROGEN 12 MG/DL (7-18); CALCIUM LEVEL 8.2 MG/DL (8.8-10.2); CARBON DIOXIDE LEVEL 29 MEQ/L (21-32); CHLORIDE LEVEL 102 MEQ/L (98-107); CPK CREATINE PHOSPHOKINASE 108 U/L (26-192); CREATININE FOR GFR 0.58 MG/DL (0.55-1.30); GLOMERULAR FILTRATION RATE > 60.0 (>32); GLUCOSE, FASTING 171 MG/DL (70-100); MB/CK RELATIVE INDEX 4.72 (< OR =4); POTASSIUM SERUM 3.5 MEQ/L (3.5-5.1); SODIUM LEVEL 138 MEQ/L (136-145); TOTAL PROTEIN 6.8 GM/DL (6.4-8.2)
[2019-03-05] MEDS ORDERED: SLF 3 ML SYR IV PRN (17:00)
[2019-03-05] MEDS ORDERED: methylPREDNISolone INJ 125 MG/2 ML VIAL (J2930) IV ONE (17:00)
[2019-03-05] MEDS ORDERED: FUROSEMIDE 40 MG/4 ML VIAL (J1940) IV ONE (17:00)
[2019-03-05] MEDS: SLF 3 ML SYR IV SCH (20:21)
[2019-03-06] VITALS (9 sets, daily range): BP systolic 121–158; BP diastolic 57–86
[2019-03-06 05:34] LABS: BASO % 0.1 % (0.0-1.0); HEMOGLOBIN 9.1 g/dl (12.0-15.5); LYMPH # 0.5 10^3/uL (1.5-4.5); LYMPH % 4.2 % (24.0-44.0); MEAN CORPUSCULAR HEMOGLOBIN 29.4 pg (27.0-33.0); MEAN CORPUSCULAR HGB CONC 32.5 g/dl (32.0-36.5); MEAN CORPUSCULAR VOLUME 90.3 fl (80.0-96.0); MONO # 0.3 10^3/uL (0.0-0.8); MONO % 2.4 % (0.0-5.0); NEUTROPHILS # 11.2 10^3/uL (1.8-7.7); NEUTROPHILS % 92.6 % (36.0-66.0); PLATELET COUNT, AUTOMATED 426 10^3/uL (150-450); WHITE BLOOD COUNT 12.1 10^3/uL (4.0-10.0)
[2019-03-06] MEDS: SLF 3 ML SYR IV SCH ×3 (06:00→22:00)
[2019-03-06 06:13] LABS: ALBUMIN 2.8 GM/DL (3.2-5.2); ALT/SGPT 25 U/L (12-78); BILIRUBIN,TOTAL 0.6 MG/DL (0.2-1.0); BLOOD UREA NITROGEN 19 MG/DL (7-18); CALCIUM LEVEL 8.3 MG/DL (8.8-10.2); CARBON DIOXIDE LEVEL 33 MEQ/L (21-32); CHLORIDE LEVEL 100 MEQ/L (98-107); CPK CREATINE PHOSPHOKINASE 104 U/L (26-192); CREATININE FOR GFR 0.74 MG/DL (0.55-1.30); GLOMERULAR FILTRATION RATE > 60.0 (>32); GLUCOSE, FASTING 147 MG/DL (70-100); MB/CK RELATIVE INDEX 6.35 (< OR =4); NT-PRO BNP 3930 PG/ML (<450); SODIUM LEVEL 140 MEQ/L (136-145); TOTAL PROTEIN 6.8 GM/DL (6.4-8.2); TROPONIN I 0.17 NG/ML (< 0.10)
[2019-03-06] MEDS ORDERED: KETOROLAC 30 MG/ML VIAL (J1885) IV ONE (06:45)
[2019-03-06] MEDS: HumaLOG INSULIN (NovoLOG) PER UNIT SC SCH ×4 (07:30→21:00)
[2019-03-06] MEDS: TIOTROPIUM INHALER/CAPSULE (SPIRIVA) INH SCH (08:00)
[2019-03-06] MEDS: ASPIRIN 81 MG ENTERIC TAB PO SCH (08:49)
[2019-03-06] MEDS: predniSONE 10 MG TAB PO SCH (08:50)
[2019-03-06] MEDS: TORSEMIDE 20 MG TAB PO SCH (08:53)
[2019-03-06] MEDS: FERROUS SULFATE 325MG TAB PO SCH ×2 (08:53→20:20)
[2019-03-06] MEDS: SENOKOT S TAB PO SCH ×2 (08:54→21:00)
[2019-03-06] MEDS: ATORVASTATIN 10 MG TAB PO SCH (08:54)
[2019-03-06] MEDS: HEPARIN SOD (PORCINE) 5000 UNITS/ML VIAL SQ SCH ×2 (08:54→20:20)
[2019-03-06] MEDS: ASCORBIC ACID 500 MG TAB PO SCH ×2 (08:54→20:20)
[2019-03-06] MEDS: PANTOPRAZOLE 40MG TAB (PROTONIX) PO SCH (08:54)
[2019-03-06] MEDS: LEVEMIR (INSULIN DETEMIR) 1 UNITS/0.01ML SC SCH (08:55)
[2019-03-06] MEDS: ANALGESIC BALM CRM 120 GM TOP SCH ×4 (08:55→21:00)
[2019-03-06] MEDS: SYMBICORT 160/4.5MCG INHALER 6GM INH SCH ×2 (09:00→20:24)
--- NOTE | 2019-03-06 10:51 | REP ---
CHEST, PORTABLE: AP portable view of the chest is performed and compared to a prior study 03/05/2019. Bibasilar pleural and parenchymal opacities are unchanged. The heart and mediastinum are unchanged. IMPRESSION: Stable exam. Electronically Signed by Jadien Fulton MD 03/08/2019 11:45 A
--- NOTE | 2019-03-06 10:52 | IPNPDOC ---
Text Note Date of Service The patient was seen on 03/06/19. NOTE SUBJECTIVE: Patient seen at bedside. Patient states she feels essentially at b aseline with regards to her breathing. Difficult to obtain information, patient not forthcoming with answers to questions. Objective: General: NAD, lying comfortably in bed, not pleasant HEENT: NC/AT, EOMI, PERRL Lungs: minimal basilar crackles L>R Heart: +S1S2, RRR Abd: soft, NT, +BS Ext: peripheral edema ASSESSMENT AND PLAN: #Respiratory distress - possibly volume overload - patient has been refusing her diuretic therapy - elevated BNP - repeat CXR pending - repeat lasix IV 60 x 1 - end stage COPD complicated with HFpEF - complicated with HFpEF # History of hospital-acquired pneumonia status post treatment. #History of LLE DVT - Patient has been refusing medications - refused heparin subcutaneous. # History of pulmonary hypertension #History of transient ischemic attack (TIA). Aspirin ordered. #Anxiety, on Xanax as needed. #Dementia - Patient was evaluated by psychiatry previously - Patient does not have capacity to make decisions. Patient is waiting for placement. #CAD/stents - ASA, lipitor #non-compliance - further complicating factor to her medical care # DVT prophylaxis. Heparin ordered. Dispo: poor prognosis; will discuss plan of care further with her family member (HCP - son Enriqueta); appears to be fluid overload, IV lasix ADDENDUM: Discussed again with son Enriqueta. Discussed [employer], he states he will think about it and will be visiting his mother later today. A-FIB/CHADSVASC A-FIB History Current/History of A-Fib/PAF?: No VS,Fishbone, I+O VS, Fishbone, I+O Laboratory Tests 03/05/19 13:51 Red Blood Count 3.05 L, Mean Corpuscular Volume 90.8, Mean Corpuscular Hem oglobin 28.9, Mean Corpuscular Hemoglobin Concent 31.8 L, Red Cell Distribution Width 16.6 H, Neutrophils (%) (Auto) 94.2 H, Lymphocytes (%) (Auto) 3.0 L, Monocytes (%) (Auto) 1.5, Eosinophils (%) (Auto) 0.5, Basophils (%) (Auto) 0.3, Neutrophils # (Auto) 11.0 H, Lymphocytes # (Auto) 0.4 L, Monocytes # (Auto) 0.2, Eosinophils # (Auto) 0.1, Basophils # (Auto) 0.0, Calcium Level 8.2 L, Aspartate Amino Transf (AST/SGOT) 26, Alanine Aminotransferase (ALT/SGPT) 22, Total Creatine Kinase 108, Alkaline Phosphatase 89, Total Bilirubin 0.7, Total Protein 6.8, Albumin 2.8 L 03/06/19 05:23 Red Blood Count 3.10 L, Mean Corpuscular Volume 90.3, Mean Corpuscular Hemoglobin 29.4, Mean Corpuscular Hemoglobin Concent 32.5, Red Cell Distribution Width 16.2 H, Neutrophils (%) (Auto) 92.6 H, Lymphocytes (%) (Auto) 4.2 L, Monocytes (%) (Auto) 2.4, Eosinophils (%) (Auto) 0.0, Basophils (%) (Auto) 0.1, Neutrophils # (Auto) 11.2 H, Lymphocytes # (Auto) 0.5 L, Monocytes # (Auto) 0.3, Eosinophils # (Auto) 0.0, Basophils # (Auto) 0.0, Calcium Level 8.3 L, Aspartate Amino Transf (AST/SGOT) 30, Alanine Aminotransferase (ALT/SGPT) 25, Total Creatine Kinase 104, Alkaline Phosphatase 89, Total Bilirubin 0.6, Total Protein 6.8, Albumin 2.8 L Vital Signs Date Time Temp Pulse Resp B/P (MAP) Pulse Ox O2 Delivery O2 Flow Rate FiO2 03/06/19 08:42 98.1 112 22 158/78 (104) 98 03/06/19 07:30 15.0 100 03/02/19 07:15 Nasal Cannula I&O- Last 24 Hours up to 6 AM 03/06/19 06:00 Intake Total 370 ml Output Total 300 ml Balance 70 ml ENRIQUETA HSIEH MD March 06, 2019 10:52
[2019-03-06] MEDS ORDERED: FUROSEMIDE 100 MG/10 ML VIAL (J1940) IV ONE (11:15)
--- NOTE | 2019-03-06 11:29 | REP ---
BILATERAL LOWER EXTREMITY DUPLEX VEINS: HISTORY: Deep venous thrombosis. RIGHT LOWER EXTREMITY: There are no filling defects in the deep venous system. The deep venous system is patent. IMPRESSION: There is no deep venous thrombosis. LEFT LOWER EXTREMITY: There are no filling defects in the deep venous system. The deep venous system is patent. IMPRESSION: There is no deep venous thrombosis. Electronically Signed by Jaden Bright MD 03/06/2019 11:32 A
[2019-03-06] MEDS: ACETAMINOPHEN TAB 650MG DOSE (2X325MG) PO PRN ×2 (19:37→19:50)
--- NOTE | 2019-03-06 19:46 | ECGEPIP ---
Stationary ECG Study [facility] Test Date: 2019-03-05 Pat Name: MARLENE BANG Department: Room: [place] [address] Gender: F Engagement Manager: SHAWN : 1935 Requested By: ENRIQUETA Alfonso Order Number: [id number] Reading MD: Wilder Judd Measurements Intervals [place] Rate: 98 P: 70 DC: 143 QRS: 10 QRSD: 133 T: 35 QT: 393 QTc: 503 Interpretive Statements Normal sinus rhythm Low QRS complex voltage in the limb leads Right bundle branch block No significant change when compared to prior tracing of 03/04/2019 Electronically Signed On 03-06-2019 19:46:40 EDT by Wilder Judd
--- NOTE | 2019-03-06 19:47 | ECGEPIP ---
Stationary ECG Study [facility] Test Date: 2019-03-06 Pat Name: MARLENE BANG Department: Room: [place] [address] Gender: F Sports Equipment Repairer: SHAWN : 1935 Requested By: LAMINE MCLAUGHLIN Order Number: [id number] Reading MD: Wilder Judd Measurements Intervals [place] Rate: 93 P: 85 HI: 141 QRS: 28 QRSD: 126 T: 51 QT: 401 QTc: 499 Interpretive Statements Normal sinus rhythm Low QRS complex voltage in the limb leads Right bundle branch block No significant change when compared to prior tracing of 03/05/2019 Electronically Signed On 03-06-2019 19:47:23 EDT by Wilder Judd
[2019-03-06] MEDS: guaiFENesin ER 600 MG TAB PO SCH (20:20)
[2019-03-06] MEDS: traMADol 50 MG TAB PO PRN (20:21)
[2019-03-06] MEDS: ALPRAZolam 0.25 MG TAB PO PRN (20:21)
[2019-03-07] MEDS: traMADol 50 MG TAB PO PRN ×2 (01:42→11:24)
[2019-03-07] MEDS: IPRATROPIUM 0.5MG/ALBUTEROL 2.5MG INH SOL UD 3ML (DUONEB)(J7620) NEB PRN ×2 (04:36→23:23)
[2019-03-07 05:30] VITALS: BP 113/64
[2019-03-07] MEDS: SLF 3 ML SYR IV SCH (05:54)
[2019-03-07 06:03] LABS: BASO % 0.3 % (0.0-1.0); EOS # 0.7 10^3/uL (0.0-0.50); EOS % 4.4 % (0.0-3.0); HEMOGLOBIN 9.2 g/dl (12.0-15.5); LYMPH # 1.1 10^3/uL (1.5-4.5); LYMPH % 6.8 % (24.0-44.0); MEAN CORPUSCULAR HEMOGLOBIN 28.7 pg (27.0-33.0); MEAN CORPUSCULAR HGB CONC 31.7 g/dl (32.0-36.5); MEAN CORPUSCULAR VOLUME 90.3 fl (80.0-96.0); MONO # 1.3 10^3/uL (0.0-0.8); MONO % 8.2 % (0.0-5.0); NEUTROPHILS # 12.3 10^3/uL (1.8-7.7); NEUTROPHILS % 79.8 % (36.0-66.0); PLATELET COUNT, AUTOMATED 499 10^3/uL (150-450); RED BLOOD COUNT 3.21 10^6/uL (4.00-5.40); WHITE BLOOD COUNT 15.4 10^3/uL (4.0-10.0)
[2019-03-07 06:26] LABS: ALBUMIN 2.7 GM/DL (3.2-5.2); ALT/SGPT 24 U/L (12-78); BILIRUBIN,TOTAL 0.5 MG/DL (0.2-1.0); BLOOD UREA NITROGEN 38 MG/DL (7-18); CALCIUM LEVEL 8.8 MG/DL (8.8-10.2); CARBON DIOXIDE LEVEL 33 MEQ/L (21-32); CHLORIDE LEVEL 100 MEQ/L (98-107); GLOMERULAR FILTRATION RATE > 60.0 (>32); GLUCOSE, FASTING 86 MG/DL (70-100); POTASSIUM SERUM 3.5 MEQ/L (3.5-5.1); SODIUM LEVEL 138 MEQ/L (136-145); TOTAL PROTEIN 7.4 GM/DL (6.4-8.2)
[2019-03-07] MEDS: HumaLOG INSULIN (NovoLOG) PER UNIT SC SCH ×4 (07:54→21:00)
[2019-03-07 08:00] VITALS: BP 115/58
[2019-03-07] MEDS: TIOTROPIUM INHALER/CAPSULE (SPIRIVA) INH SCH (08:00)
[2019-03-07] MEDS: MIRALAX *UNIT DOSE* 17GM PACKET PO PRN (08:09)
[2019-03-07] MEDS: ASPIRIN 81 MG ENTERIC TAB PO SCH (08:12)
[2019-03-07] MEDS: FERROUS SULFATE 325MG TAB PO SCH ×2 (08:12→21:00)
[2019-03-07] MEDS: ALPRAZolam 0.25 MG TAB PO PRN (08:12)
[2019-03-07] MEDS: LEVEMIR (INSULIN DETEMIR) 1 UNITS/0.01ML SC SCH ×2 (08:12→09:31)
[2019-03-07] MEDS: ATORVASTATIN 10 MG TAB PO SCH ×2 (08:12→09:31)
[2019-03-07] MEDS: predniSONE 10 MG TAB PO SCH (08:12)
[2019-03-07] MEDS: guaiFENesin ER 600 MG TAB PO SCH ×2 (08:12→21:00)
[2019-03-07] MEDS: PANTOPRAZOLE 40MG TAB (PROTONIX) PO SCH ×2 (08:12→09:31)
[2019-03-07] MEDS: SENOKOT S TAB PO SCH ×3 (08:13→21:00)
[2019-03-07] MEDS: ASCORBIC ACID 500 MG TAB PO SCH ×3 (08:13→21:00)
[2019-03-07] MEDS: TORSEMIDE 20 MG TAB PO SCH ×2 (08:13→09:31)
[2019-03-07] MEDS: HEPARIN SOD (PORCINE) 5000 UNITS/ML VIAL SQ SCH ×2 (08:13→21:00)
[2019-03-07] MEDS: SYMBICORT 160/4.5MCG INHALER 6GM INH SCH ×2 (09:00→21:00)
[2019-03-07] MEDS: CEFDINIR 300 MG CAP (OMNICEF) PO SCH ×2 (09:56→21:00)
[2019-03-07] MEDS: ANALGESIC BALM CRM 120 GM TOP SCH ×4 (11:32→21:00)
--- NOTE | 2019-03-07 11:43 | IPNPDOC ---
Text Note Date of Service The patient was seen on 03/07/19. NOTE SUBJECTIVE: Patient seen and examined at bedside. States her breathing is esse ntially the same. No new medical complaints. Objective: General: NAD, elderly, frail HEENT: NC/AT, EOMI, PERRL Lungs: minimal basilar crackles L>R Heart: +S1S2, RRR Abd: soft, NT, +BS Ext: peripheral edema ASSESSMENT AND PLAN: #Respiratory distress - possibly volume overload - patient has been refusing her diuretic therapy - elevated BNP - CT chest pending - end stage COPD complicated with HFpEF - complicated with HFpEF # History of hospital-acquired pneumonia status post treatment. - sputum cultures positive - started cefdinir #History of LLE DVT - repeat ultrasound negative - Patient has been refusing medications - refused heparin subcutaneous. # History of pulmonary hypertension #History of transient ischemic attack (TIA) - aspirin ordered. #Anxiety - Xanax PRN #Dementia - Patient was evaluated by psychiatry previously - Patient does not have capacity to make decisions. Patient is waiting for placement. #CAD/stents - ASA, lipitor #non-compliance - further complicating factor to her medical care # DVT prophylaxis. Heparin ordered. Dispo: poor prognosis; discussed with HCP - son Enriqueta; he has requested staff to encourage compliance A-FIB/CHADSVASC A-FIB History Current/History of A-Fib/PAF?: No VS,Fishbone, I+O VS, Fishbone, I+O Laboratory Tests 03/07/19 05:28 Red Blood Count 3.21 L, Mean Corpuscular Volume 90.3, Mean Corpuscular Hemoglobin 28.7, Mean Corpuscular Hemoglobin Concent 31.7 L, Red Cell Distribution Width 16.4 H, Neutrophils (%) (Auto) 79.8 H, Lymphocytes (%) (Auto) 6.8 L, Monocytes (%) (Auto) 8.2 H, Eosinophils (%) (Auto) 4.4 H, Basophils (%) (Auto) 0.3, Neutrophils # (Auto) 12.3 H, Lymphocytes # (Auto) 1.1 L, Monocytes # (Auto) 1.3 H, Eosinophils # (Auto) 0.7 H, Basophils # (Auto) 0.0, Calcium Level 8.8, Aspartate Amino Transf (AST/SGOT) 27, Alanine Aminotransferase (ALT/SGPT) 24, Alkaline Phosphatase 85, Total Bilirubin 0.5, Total Protein 7.4, Albumin 2.7 L Vital Signs Date Time Temp Pulse Resp B/P (MAP) Pulse Ox O2 Delivery O2 Flow Rate FiO2 03/07/19 08:00 3.0 03/07/19 08:00 99.6 95 20 115/58 (77) 94 03/06/19 16:00 100 03/02/19 07:15 Nasal Cannula I&O- Last 24 Hours up to 6 AM 03/07/19 06:00 Intake Total 240 ml Output Total 600 ml Balance -360 ml ENRIQUETA HSIEH MD March 07, 2019 11:43
[2019-03-07 12:00] VITALS: BP 131/60
[2019-03-07 16:00] VITALS: BP 130/59
--- NOTE | 2019-03-07 16:48 | REP ---
CT CHEST WITHOUT CONTRAST: CT chest performed without IV contrast. Sagittal and coronal reconstruction images are performed. COMPARISON: 06/16/2018 In the left upper lobe there is a 4 mm nodular density which appears slightly increased in size since the prior study. Extensive consolidation is seen in the bilateral lower lobes with air bronchograms present. Material fills the bilateral lower lobe bronchioles. This consolidation has significantly worsened when compared to the prior CT scan. Evaluation for adenopathy is limited without the use of intravenous contrast. There are subcentimeter mediastinal lymph nodes in the pericarinal region. I cannot exclude subcarinal adenopathy. Moderate atherosclerotic calcifications are seen of the thoracic aorta without aneurysm. Heart is upper limits of normal in size. Visualized upper abdominal structures are unremarkable. There are degenerative changes of the spine with accentuation of thoracic kyphosis. IMPRESSION: 4 mm nodular density in the left apex is of doubtful significance, only minimally increased in size since the prior CT of 06/16/2018. There is significant worsening of bilateral lower lobe consolidation which is fairly extensive. Material fills the bilateral lower lobe bronchioles. This may represent inspissated secretions, but underlying endobronchial neoplasm cannot be completely excluded. I cannot exclude subcarinal adenopathy. Electronically Signed by Jaiden Fulton MD 03/08/2019 12:52 P
[2019-03-07 19:50] VITALS: BP 123/55
[2019-03-07 23:13] VITALS: BP 128/64
[2019-03-08 03:56] VITALS: BP 120/66
[2019-03-08] MEDS: IPRATROPIUM 0.5MG/ALBUTEROL 2.5MG INH SOL UD 3ML (DUONEB)(J7620) NEB PRN (05:00)
[2019-03-08] MEDS: HumaLOG INSULIN (NovoLOG) PER UNIT SC SCH ×4 (07:30→20:24)
[2019-03-08 08:00] VITALS: BP 132/61
[2019-03-08] MEDS: LEVEMIR (INSULIN DETEMIR) 1 UNITS/0.01ML SC SCH (09:00)
[2019-03-08] MEDS: predniSONE 10 MG TAB PO SCH (09:00)
[2019-03-08] MEDS: ASCORBIC ACID 500 MG TAB PO SCH ×2 (09:00→20:24)
[2019-03-08] MEDS: PANTOPRAZOLE 40MG TAB (PROTONIX) PO SCH (09:00)
[2019-03-08] MEDS: SENOKOT S TAB PO SCH ×2 (09:00→20:23)
[2019-03-08] MEDS: ANALGESIC BALM CRM 120 GM TOP SCH ×4 (09:00→20:27)
[2019-03-08] MEDS: ATORVASTATIN 10 MG TAB PO SCH (09:00)
[2019-03-08] MEDS: TORSEMIDE 20 MG TAB PO SCH (09:00)
[2019-03-08] MEDS: HEPARIN SOD (PORCINE) 5000 UNITS/ML VIAL SQ SCH ×2 (09:00→20:27)
[2019-03-08] MEDS: FERROUS SULFATE 325MG TAB PO SCH ×2 (09:00→20:23)
[2019-03-08] MEDS: CEFDINIR 300 MG CAP (OMNICEF) PO SCH ×2 (09:38→20:26)
[2019-03-08] MEDS: guaiFENesin ER 600 MG TAB PO SCH ×2 (09:38→20:23)
[2019-03-08] MEDS: ASPIRIN 81 MG ENTERIC TAB PO SCH (09:55)
[2019-03-08] MEDS: traMADol 50 MG TAB PO PRN (09:56)
[2019-03-08 12:00] VITALS: BP 147/70
[2019-03-08] MEDS: TIOTROPIUM INHALER/CAPSULE (SPIRIVA) INH SCH (12:12)
[2019-03-08] MEDS: SYMBICORT 160/4.5MCG INHALER 6GM INH SCH ×2 (12:12→19:44)
--- NOTE | 2019-03-08 13:17 | IPNPDOC ---
Text Note Date of Service The patient was seen on 03/08/19. NOTE SUBJECTIVE: Patient seen and examined at bedside. States her breathing is essentially the same. No new medical complaints. Objective: General: NAD, elderly, frail HEENT: NC/AT, EOMI, PERRL Lungs: minimal basilar crackles L>R Heart: +S1S2, RRR Abd: soft, NT, +BS Ext: peripheral edema ASSESSMENT AND PLAN: #Respiratory distress - multifactorial - volume overload - patient has been refusing her diuretic therapy - end stage COPD complicated with HFpEF #possible neoplasm - as evidenced on CT chest - will discuss further with pulm # History of hospital-acquired pneumonia status post treatment. - sputum cultures positive - started cefdinir #History of LLE DVT - repeat ultrasound negative - Patient has been refusing medications - refused heparin subcutaneous. # History of pulmonary hypertension #History of transient ischemic attack (TIA) - aspirin ordered. #Anxiety - Xanax PRN #Dementia - Patient was evaluated by psychiatry previously - Patient does not have capacity to make decisions. Patient is waiting for placement. #CAD/stents - ASA, lipitor #non-compliance - further complicating factor to her medical care # DVT prophylaxis. Heparin ordered. Dispo: poor prognosis; transfer to floor; discussed with HCP - son Enriqueta; he has requested staff to encourage compliance VS,Rashad, I+O VS, Kolbye, I+O Vital Signs Date Time Temp Pulse Resp B/P (MAP) Pulse Ox O2 Delivery O2 Flow Rate FiO2 03/08/19 12:00 2.0 03/08/19 12:00 97.6 98 20 147/70 (95) 96 03/06/19 16:00 100 03/02/19 07:15 Nasal Cannula I&O- Last 24 Hours up to 6 AM 03/08/19 06:00 Intake Total 600 ml Output Total 550 ml Balance 50 ml ENRIQUETA HSIEH MD March 08, 2019 13:17
[2019-03-08] MEDS: CETIRIZINE (ZyrTEC) 10 MG TAB PO PRN (14:48)
[2019-03-08] MEDS: ALPRAZolam 0.25 MG TAB PO PRN (17:56)
[2019-03-08 22:00] VITALS: BP 135/62
[2019-03-09 06:00] VITALS: BP 129/68
[2019-03-09] MEDS: HumaLOG INSULIN (NovoLOG) PER UNIT SC SCH ×4 (07:30→21:00)
[2019-03-09] MEDS: TIOTROPIUM INHALER/CAPSULE (SPIRIVA) INH SCH (08:02)
[2019-03-09] MEDS: SYMBICORT 160/4.5MCG INHALER 6GM INH SCH ×2 (08:02→19:45)
[2019-03-09] MEDS: predniSONE 10 MG TAB PO SCH (08:29)
[2019-03-09] MEDS: TORSEMIDE 20 MG TAB PO SCH (08:33)
[2019-03-09] MEDS: ASPIRIN 81 MG ENTERIC TAB PO SCH (08:33)
[2019-03-09] MEDS: FERROUS SULFATE 325MG TAB PO SCH ×2 (08:34→21:00)
[2019-03-09] MEDS: PANTOPRAZOLE 40MG TAB (PROTONIX) PO SCH (08:34)
[2019-03-09] MEDS: ATORVASTATIN 10 MG TAB PO SCH (08:34)
[2019-03-09] MEDS: guaiFENesin ER 600 MG TAB PO SCH ×2 (08:34→21:00)
[2019-03-09] MEDS: SENOKOT S TAB PO SCH ×2 (08:34→21:00)
[2019-03-09] MEDS: CEFDINIR 300 MG CAP (OMNICEF) PO SCH ×2 (08:34→21:00)
[2019-03-09] MEDS: ANALGESIC BALM CRM 120 GM TOP SCH ×4 (08:35→21:00)
[2019-03-09] MEDS: ASCORBIC ACID 500 MG TAB PO SCH ×2 (08:35→21:00)
[2019-03-09] MEDS: HEPARIN SOD (PORCINE) 5000 UNITS/ML VIAL SQ SCH ×2 (08:35→21:00)
[2019-03-09] MEDS: LEVEMIR (INSULIN DETEMIR) 1 UNITS/0.01ML SC SCH (08:35)
[2019-03-09] MEDS: LEVALBUTEROL 1.25 MG/0.5 ML CONCENTRATE NEB INH PRN (18:11)
[2019-03-09 22:00] VITALS: BP 150/68
[2019-03-10] MEDS: IPRATROPIUM 0.5MG/ALBUTEROL 2.5MG INH SOL UD 3ML (DUONEB)(J7620) NEB PRN ×2 (02:09→20:31)
[2019-03-10] MEDS: HumaLOG INSULIN (NovoLOG) PER UNIT SC SCH ×4 (07:23→21:00)
[2019-03-10] MEDS: TORSEMIDE 20 MG TAB PO SCH (07:24)
[2019-03-10] MEDS: ASPIRIN 81 MG ENTERIC TAB PO SCH (07:24)
[2019-03-10] MEDS: predniSONE 10 MG TAB PO SCH (07:24)
[2019-03-10] MEDS: FERROUS SULFATE 325MG TAB PO SCH ×2 (07:24→20:00)
[2019-03-10] MEDS: guaiFENesin ER 600 MG TAB PO SCH ×2 (07:25→20:00)
[2019-03-10] MEDS: PANTOPRAZOLE 40MG TAB (PROTONIX) PO SCH (07:25)
[2019-03-10] MEDS: CEFDINIR 300 MG CAP (OMNICEF) PO SCH ×2 (07:25→20:00)
[2019-03-10] MEDS: SENOKOT S TAB PO SCH ×2 (07:25→20:00)
[2019-03-10] MEDS: ATORVASTATIN 10 MG TAB PO SCH (07:25)
[2019-03-10] MEDS: ASCORBIC ACID 500 MG TAB PO SCH ×2 (07:26→20:00)
[2019-03-10] MEDS: LEVEMIR (INSULIN DETEMIR) 1 UNITS/0.01ML SC SCH (07:26)
[2019-03-10] MEDS: HEPARIN SOD (PORCINE) 5000 UNITS/ML VIAL SQ SCH ×2 (07:26→20:00)
[2019-03-10] MEDS: ANALGESIC BALM CRM 120 GM TOP SCH ×4 (07:26→20:00)
[2019-03-10] MEDS: SYMBICORT 160/4.5MCG INHALER 6GM INH SCH ×3 (07:41→21:00)
[2019-03-10] MEDS: TIOTROPIUM INHALER/CAPSULE (SPIRIVA) INH SCH ×2 (07:41→07:51)
[2019-03-10] MEDS: LEVALBUTEROL 1.25 MG/0.5 ML CONCENTRATE NEB INH PRN ×2 (11:25→17:41)
[2019-03-10 14:00] VITALS: BP 165/68
[2019-03-10 22:00] VITALS: BP 157/89
[2019-03-10] MEDS: ALPRAZolam 0.25 MG TAB PO PRN (22:31)
[2019-03-11] MEDS: LEVALBUTEROL 1.25 MG/0.5 ML CONCENTRATE NEB INH PRN ×3 (05:22→23:34)
[2019-03-11] MEDS: SYMBICORT 160/4.5MCG INHALER 6GM INH SCH ×2 (07:25→21:55)
[2019-03-11] MEDS: TIOTROPIUM INHALER/CAPSULE (SPIRIVA) INH SCH (07:25)
[2019-03-11] MEDS: HumaLOG INSULIN (NovoLOG) PER UNIT SC SCH ×4 (07:30→20:30)
[2019-03-11] MEDS: CEFDINIR 300 MG CAP (OMNICEF) PO SCH ×2 (09:00→20:29)
[2019-03-11] MEDS: guaiFENesin ER 600 MG TAB PO SCH ×2 (09:00→20:16)
[2019-03-11] MEDS: ANALGESIC BALM CRM 120 GM TOP SCH ×4 (09:00→20:29)
[2019-03-11] MEDS: TORSEMIDE 20 MG TAB PO SCH (09:00)
[2019-03-11] MEDS: LEVEMIR (INSULIN DETEMIR) 1 UNITS/0.01ML SC SCH (09:00)
[2019-03-11] MEDS: FERROUS SULFATE 325MG TAB PO SCH ×2 (09:00→20:28)
[2019-03-11] MEDS: ASPIRIN 81 MG ENTERIC TAB PO SCH (09:00)
[2019-03-11] MEDS: SENOKOT S TAB PO SCH ×2 (09:00→20:29)
[2019-03-11] MEDS: predniSONE 10 MG TAB PO SCH (09:00)
[2019-03-11] MEDS: ATORVASTATIN 10 MG TAB PO SCH (09:00)
[2019-03-11] MEDS: HEPARIN SOD (PORCINE) 5000 UNITS/ML VIAL SQ SCH ×2 (09:00→20:29)
[2019-03-11] MEDS: PANTOPRAZOLE 40MG TAB (PROTONIX) PO SCH (09:00)
[2019-03-11] MEDS: ASCORBIC ACID 500 MG TAB PO SCH ×2 (09:00→20:29)
[2019-03-11] MEDS: IPRATROPIUM 0.5MG/ALBUTEROL 2.5MG INH SOL UD 3ML (DUONEB)(J7620) NEB PRN ×2 (13:01→19:25)
[2019-03-11 14:00] VITALS: BP 126/59
[2019-03-11] MEDS: ALPRAZolam 0.25 MG TAB PO PRN (20:16)
[2019-03-11 21:00] VITALS: BP 158/74
[2019-03-12] MEDS: ACETAMINOPHEN TAB 650MG DOSE (2X325MG) PO PRN (00:06)
[2019-03-12 06:00] VITALS: BP 145/72
[2019-03-12] MEDS: IPRATROPIUM 0.5MG/ALBUTEROL 2.5MG INH SOL UD 3ML (DUONEB)(J7620) NEB PRN ×2 (06:46→21:13)
[2019-03-12] MEDS: TIOTROPIUM INHALER/CAPSULE (SPIRIVA) INH SCH (07:11)
[2019-03-12] MEDS: SYMBICORT 160/4.5MCG INHALER 6GM INH SCH ×2 (07:11→21:13)
[2019-03-12] MEDS: HumaLOG INSULIN (NovoLOG) PER UNIT SC SCH ×4 (07:30→21:00)
[2019-03-12] MEDS: guaiFENesin ER 600 MG TAB PO SCH ×2 (08:32→21:00)
[2019-03-12] MEDS: predniSONE 10 MG TAB PO SCH (08:32)
[2019-03-12] MEDS: ASPIRIN 81 MG ENTERIC TAB PO SCH (08:32)
[2019-03-12] MEDS: TORSEMIDE 20 MG TAB PO SCH (08:32)
[2019-03-12] MEDS: ASCORBIC ACID 500 MG TAB PO SCH ×2 (08:33→21:00)
[2019-03-12] MEDS: SENOKOT S TAB PO SCH ×2 (08:33→21:00)
[2019-03-12] MEDS: CEFDINIR 300 MG CAP (OMNICEF) PO SCH ×2 (08:33→21:00)
[2019-03-12] MEDS: ATORVASTATIN 10 MG TAB PO SCH (08:33)
[2019-03-12] MEDS: FERROUS SULFATE 325MG TAB PO SCH ×2 (08:33→21:00)
[2019-03-12] MEDS: PANTOPRAZOLE 40MG TAB (PROTONIX) PO SCH (08:33)
[2019-03-12] MEDS: HEPARIN SOD (PORCINE) 5000 UNITS/ML VIAL SQ SCH ×2 (08:33→21:00)
[2019-03-12] MEDS: LEVEMIR (INSULIN DETEMIR) 1 UNITS/0.01ML SC SCH (08:33)
[2019-03-12] MEDS: ANALGESIC BALM CRM 120 GM TOP SCH ×4 (08:34→21:00)
[2019-03-13] MEDS: IPRATROPIUM 0.5MG/ALBUTEROL 2.5MG INH SOL UD 3ML (DUONEB)(J7620) NEB PRN ×6 (00:13→22:39)
[2019-03-13 06:00] VITALS: BP 149/66
[2019-03-13] MEDS: LEVALBUTEROL 1.25 MG/0.5 ML CONCENTRATE NEB INH PRN (07:29)
[2019-03-13] MEDS: TIOTROPIUM INHALER/CAPSULE (SPIRIVA) INH SCH (07:29)
[2019-03-13] MEDS: SYMBICORT 160/4.5MCG INHALER 6GM INH SCH ×2 (07:29→21:00)
[2019-03-13] MEDS: HumaLOG INSULIN (NovoLOG) PER UNIT SC SCH ×4 (07:30→20:59)
[2019-03-13] MEDS: TORSEMIDE 20 MG TAB PO SCH (08:36)
[2019-03-13] MEDS: CEFDINIR 300 MG CAP (OMNICEF) PO SCH ×2 (08:36→20:59)
[2019-03-13] MEDS: ALPRAZolam 0.25 MG TAB PO PRN ×2 (08:36→16:42)
[2019-03-13] MEDS: guaiFENesin ER 600 MG TAB PO SCH ×2 (08:36→20:58)
[2019-03-13] MEDS: predniSONE 10 MG TAB PO SCH (08:37)
[2019-03-13] MEDS: FERROUS SULFATE 325MG TAB PO SCH ×2 (08:37→20:58)
[2019-03-13] MEDS: ATORVASTATIN 10 MG TAB PO SCH (08:37)
[2019-03-13] MEDS: PANTOPRAZOLE 40MG TAB (PROTONIX) PO SCH (08:37)
[2019-03-13] MEDS: LEVEMIR (INSULIN DETEMIR) 1 UNITS/0.01ML SC SCH (08:37)
[2019-03-13] MEDS: SENOKOT S TAB PO SCH ×2 (08:37→20:59)
[2019-03-13] MEDS: HEPARIN SOD (PORCINE) 5000 UNITS/ML VIAL SQ SCH ×2 (08:37→20:59)
[2019-03-13] MEDS: ASPIRIN 81 MG ENTERIC TAB PO SCH (08:37)
[2019-03-13] MEDS: ASCORBIC ACID 500 MG TAB PO SCH ×2 (08:37→20:59)
[2019-03-13] MEDS: ANALGESIC BALM CRM 120 GM TOP SCH ×4 (08:38→21:00)
[2019-03-13 13:08] LABS: HEMATOCRIT 27.9 % (36.0-47.0); HEMOGLOBIN 8.7 g/dl (12.0-15.5); MEAN CORPUSCULAR HEMOGLOBIN 29.1 pg (27.0-33.0); MEAN CORPUSCULAR HGB CONC 31.2 g/dl (32.0-36.5); MEAN CORPUSCULAR VOLUME 93.3 fl (80.0-96.0); PLATELET COUNT, AUTOMATED 445 10^3/uL (150-450); RED BLOOD COUNT 2.99 10^6/uL (4.00-5.40); WHITE BLOOD COUNT 9.4 10^3/uL (4.0-10.0)
--- NOTE | 2019-03-13 13:17 | IPN ---
DATE OF SERVICE: 03/13/2019 SUBJECTIVE: The patient is seen and examined in the room today. The patient stated she is not feeling well. The patient continues to have productive sputum. The patient is not sure whether she had a fever in the last 24 hours. The patient was found to have a worsening breathing. Sputum culture was performed previously. The patient was found to have pneumonia. The patient was started on antibiotic since 03/07/2019. However, the patient has been refusing her antibiotic most of the time. Today during the encounter, the patient agreed to take her medications. OBJECTIVE: VITAL SIGNS: Temperature 98.8, pulse 71, respirations 24, blood pressure is 149/66, pulse oximetry 96% with 2 liters oxygen. GENERAL: The patient is not fully orientated. The patient is alert and awake. Mild to moderate distress secondary to persistent cough. HEENT: Normocephalic, atraumatic. Extraocular motor grossly intact. CARDIOVASCULAR: Positive S1, S2, regular rate. LUNGS: Coarse lung sounds. Positive crackles. Diminished breath sounds noted. No wheeze appreciated. ABDOMEN: Soft and nontender. Bowel sounds present. EXTREMITIES: Positive peripheral edema. LABORATORY DATA: Most recent laboratory data was from 03/07/2019. It showed WBC 15.4, hemoglobin 9.2, hematocrit 29, platelet count is 499. Sodium is 138, potassium 3.4, chloride 100, carbon dioxide 33, BUN 38, creatinine 0.9, GFR greater than 60, fasting glucose 86, calcium 8.8, total bilirubin is 0.5, AST 27, ALT is 24, alkaline phosphatase is 85, total protein is 7.4, albumin is 2.7. ASSESSMENT AND PLAN: 1. Acute respiratory distress, multifactorial. The patient has end-stage chronic obstructive pulmonary disease (COPD). The patient also has diastolic congestive heart failure exacerbation. Noncompliant with diuretic regimen. The patient is also found to have pneumonia, and the patient started on antibiotic. However, the patient has not been compliant with antibiotic therapy. A new set of laboratories ordered. However, the patient has refused laboratory testing in the past. 2. Diastolic congestive heart failure exacerbation. Diuretic ordered for the patient. The patient finally agreed to take the diuretic today. The last time she took the diuretic was 02/26/2019. The patient is end-stage COPD. Continue breathing treatments. 3. History of left lower extremity deep venous thrombosis (DVT). Repeat ultrasound negative. The patient refusing heparin subcutaneously. 4. History of pulmonary hypertension. Diuretic ordered. However, the patient is very noncompliant with medication regimen. 5. History of transient ischemic attack (TIA). Aspirin ordered. The patient has been skipping the medication frequently. 6. Anxiety, on Xanax. 7. Coronary artery disease, status post stent placement. Aspirin and Lipitor ordered. 8. Dementia. The patient was evaluated by psychiatry previously. The patient does not have a capacity. The patient is waiting for placement. 9. Medical noncompliance complicates the patient's care significantly. 10. Deep venous thrombosis prophylaxis. Heparin ordered. However, the patient has been refusing the medication. Thromboembolic deterrent (SARAH) compressions ordered for the patient. DISPOSITION: Poor overall prognosis. The patient is currently waiting for the placement. The patient is alternate level of care (ALC) status.
[2019-03-13 13:43] LABS: BLOOD UREA NITROGEN 9 MG/DL (7-18); CALCIUM LEVEL 8.6 MG/DL (8.8-10.2); CARBON DIOXIDE LEVEL 34 MEQ/L (21-32); CHLORIDE LEVEL 99 MEQ/L (98-107); CREATININE FOR GFR 0.68 MG/DL (0.55-1.30); GLOMERULAR FILTRATION RATE > 60.0 (>32); GLUCOSE, FASTING 167 MG/DL (70-100); MAGNESIUM LEVEL 1.5 MG/DL (1.8-2.4); NT-PRO BNP 2881 PG/ML (<450); POTASSIUM SERUM 3.3 MEQ/L (3.5-5.1); SODIUM LEVEL 137 MEQ/L (136-145)
[2019-03-13 13:57] LABS: ERYTHROCYTE SEDIMENTATION RATE 126 mm/hr (0-42)
[2019-03-14] MEDS: IPRATROPIUM 0.5MG/ALBUTEROL 2.5MG INH SOL UD 3ML (DUONEB)(J7620) NEB PRN ×6 (01:41→22:17)
[2019-03-14] MEDS: ALPRAZolam 0.25 MG TAB PO PRN ×2 (05:58→22:18)
[2019-03-14 06:00] VITALS: BP 134/60
[2019-03-14] MEDS: HumaLOG INSULIN (NovoLOG) PER UNIT SC SCH ×4 (07:30→21:00)
[2019-03-14] MEDS: SYMBICORT 160/4.5MCG INHALER 6GM INH SCH ×2 (07:53→21:00)
[2019-03-14] MEDS: TIOTROPIUM INHALER/CAPSULE (SPIRIVA) INH SCH (07:53)
[2019-03-14] MEDS: ASPIRIN 81 MG ENTERIC TAB PO SCH (07:58)
[2019-03-14] MEDS: FERROUS SULFATE 325MG TAB PO SCH ×2 (07:58→21:00)
[2019-03-14] MEDS: TORSEMIDE 20 MG TAB PO SCH (07:58)
[2019-03-14] MEDS: ATORVASTATIN 10 MG TAB PO SCH (07:58)
[2019-03-14] MEDS: predniSONE 10 MG TAB PO SCH (07:58)
[2019-03-14] MEDS: SENOKOT S TAB PO SCH ×2 (07:59→21:00)
[2019-03-14] MEDS: ASCORBIC ACID 500 MG TAB PO SCH ×2 (07:59→21:00)
[2019-03-14] MEDS: guaiFENesin ER 600 MG TAB PO SCH ×2 (07:59→21:00)
[2019-03-14] MEDS: PANTOPRAZOLE 40MG TAB (PROTONIX) PO SCH (07:59)
[2019-03-14] MEDS: CEFDINIR 300 MG CAP (OMNICEF) PO SCH ×2 (07:59→22:17)
[2019-03-14] MEDS: ANALGESIC BALM CRM 120 GM TOP SCH ×4 (08:00→21:00)
[2019-03-14] MEDS: HEPARIN SOD (PORCINE) 5000 UNITS/ML VIAL SQ SCH ×2 (08:00→21:00)
[2019-03-14] MEDS: LEVEMIR (INSULIN DETEMIR) 1 UNITS/0.01ML SC SCH (08:00)
[2019-03-15] MEDS: LEVALBUTEROL 1.25 MG/0.5 ML CONCENTRATE NEB INH PRN (00:21)
[2019-03-15] MEDS: IPRATROPIUM 0.5MG/ALBUTEROL 2.5MG INH SOL UD 3ML (DUONEB)(J7620) NEB PRN ×4 (04:20→14:58)
[2019-03-15 06:00] VITALS: BP 149/67
[2019-03-15] MEDS: HumaLOG INSULIN (NovoLOG) PER UNIT SC SCH ×4 (07:30→21:00)
[2019-03-15] MEDS: TIOTROPIUM INHALER/CAPSULE (SPIRIVA) INH SCH (07:36)
[2019-03-15] MEDS: SYMBICORT 160/4.5MCG INHALER 6GM INH SCH ×2 (07:37→19:52)
[2019-03-15] MEDS: guaiFENesin ER 600 MG TAB PO SCH ×2 (08:24→21:00)
[2019-03-15] MEDS: CEFDINIR 300 MG CAP (OMNICEF) PO SCH ×2 (08:24→21:00)
[2019-03-15] MEDS: predniSONE 10 MG TAB PO SCH (08:24)
[2019-03-15] MEDS: TORSEMIDE 20 MG TAB PO SCH (08:24)
[2019-03-15] MEDS: ALPRAZolam 0.25 MG TAB PO PRN (08:24)
[2019-03-15] MEDS: ASPIRIN 81 MG ENTERIC TAB PO SCH (08:25)
[2019-03-15] MEDS: FERROUS SULFATE 325MG TAB PO SCH ×2 (08:25→21:00)
[2019-03-15] MEDS: ATORVASTATIN 10 MG TAB PO SCH (08:25)
[2019-03-15] MEDS: PANTOPRAZOLE 40MG TAB (PROTONIX) PO SCH (08:25)
[2019-03-15] MEDS: HEPARIN SOD (PORCINE) 5000 UNITS/ML VIAL SQ SCH ×2 (08:26→21:00)
[2019-03-15] MEDS: LEVEMIR (INSULIN DETEMIR) 1 UNITS/0.01ML SC SCH (08:26)
[2019-03-15] MEDS: ANALGESIC BALM CRM 120 GM TOP SCH ×4 (08:26→21:00)
[2019-03-15] MEDS: SENOKOT S TAB PO SCH ×2 (08:26→21:00)
[2019-03-15] MEDS: ASCORBIC ACID 500 MG TAB PO SCH ×2 (08:26→21:00)
[2019-03-16] MEDS: ALPRAZolam 0.25 MG TAB PO PRN ×4 (00:17→17:04)
[2019-03-16] MEDS: IPRATROPIUM 0.5MG/ALBUTEROL 2.5MG INH SOL UD 3ML (DUONEB)(J7620) NEB PRN ×4 (02:09→20:05)
[2019-03-16 06:00] VITALS: BP 138/61
[2019-03-16] MEDS: LEVALBUTEROL 1.25 MG/0.5 ML CONCENTRATE NEB INH PRN (06:23)
[2019-03-16] MEDS: ACETAMINOPHEN TAB 650MG DOSE (2X325MG) PO PRN ×2 (06:23→19:55)
[2019-03-16] MEDS: HumaLOG INSULIN (NovoLOG) PER UNIT SC SCH ×4 (07:30→21:00)
[2019-03-16] MEDS: TIOTROPIUM INHALER/CAPSULE (SPIRIVA) INH SCH (08:00)
[2019-03-16] MEDS: predniSONE 10 MG TAB PO SCH (08:21)
[2019-03-16] MEDS: CEFDINIR 300 MG CAP (OMNICEF) PO SCH ×2 (08:21→23:14)
[2019-03-16] MEDS: TORSEMIDE 20 MG TAB PO SCH (08:21)
[2019-03-16] MEDS: guaiFENesin ER 600 MG TAB PO SCH ×2 (08:22→23:15)
[2019-03-16] MEDS: ASPIRIN 81 MG ENTERIC TAB PO SCH (08:22)
[2019-03-16] MEDS: FERROUS SULFATE 325MG TAB PO SCH ×2 (08:23→21:00)
[2019-03-16] MEDS: LEVEMIR (INSULIN DETEMIR) 1 UNITS/0.01ML SC SCH (08:23)
[2019-03-16] MEDS: ASCORBIC ACID 500 MG TAB PO SCH ×2 (08:23→21:00)
[2019-03-16] MEDS: HEPARIN SOD (PORCINE) 5000 UNITS/ML VIAL SQ SCH ×2 (08:23→21:00)
[2019-03-16] MEDS: SENOKOT S TAB PO SCH ×2 (08:23→21:00)
[2019-03-16] MEDS: PANTOPRAZOLE 40MG TAB (PROTONIX) PO SCH (08:23)
[2019-03-16] MEDS: ATORVASTATIN 10 MG TAB PO SCH (08:23)
[2019-03-16] MEDS: ANALGESIC BALM CRM 120 GM TOP SCH ×4 (08:24→21:00)
[2019-03-16] MEDS: SYMBICORT 160/4.5MCG INHALER 6GM INH SCH ×2 (08:57→20:05)
[2019-03-17] MEDS: traMADol 50 MG TAB PO PRN ×5 (00:09→21:16)
[2019-03-17] MEDS: ONDANSETRON 4 MG ORAL DISINTEGRATING TAB (Q0162 PER 1MG) PO PRN (00:49)
[2019-03-17] MEDS: ALPRAZolam 0.25 MG TAB PO PRN ×3 (00:49→20:43)
[2019-03-17] MEDS: IPRATROPIUM 0.5MG/ALBUTEROL 2.5MG INH SOL UD 3ML (DUONEB)(J7620) NEB PRN ×2 (01:39→19:31)
[2019-03-17 06:00] VITALS: BP 124/58
[2019-03-17] MEDS: HumaLOG INSULIN (NovoLOG) PER UNIT SC SCH ×4 (07:30→21:00)
[2019-03-17] MEDS: SYMBICORT 160/4.5MCG INHALER 6GM INH SCH ×2 (08:03→19:31)
[2019-03-17] MEDS: TIOTROPIUM INHALER/CAPSULE (SPIRIVA) INH SCH (08:03)
[2019-03-17] MEDS: LEVALBUTEROL 1.25 MG/0.5 ML CONCENTRATE NEB INH PRN (08:04)
[2019-03-17] MEDS: CEFDINIR 300 MG CAP (OMNICEF) PO SCH ×2 (08:52→20:43)
[2019-03-17] MEDS: SENOKOT S TAB PO SCH ×2 (08:53→21:00)
[2019-03-17] MEDS: TORSEMIDE 20 MG TAB PO SCH (08:53)
[2019-03-17] MEDS: ASPIRIN 81 MG ENTERIC TAB PO SCH (08:53)
[2019-03-17] MEDS: ASCORBIC ACID 500 MG TAB PO SCH ×2 (08:53→21:00)
[2019-03-17] MEDS: guaiFENesin ER 600 MG TAB PO SCH ×2 (08:53→20:44)
[2019-03-17] MEDS: FERROUS SULFATE 325MG TAB PO SCH ×2 (08:53→21:00)
[2019-03-17] MEDS: ATORVASTATIN 10 MG TAB PO SCH (08:53)
[2019-03-17] MEDS: PANTOPRAZOLE 40MG TAB (PROTONIX) PO SCH (08:53)
[2019-03-17] MEDS: predniSONE 10 MG TAB PO SCH (08:53)
[2019-03-17] MEDS: LEVEMIR (INSULIN DETEMIR) 1 UNITS/0.01ML SC SCH (08:54)
[2019-03-17] MEDS: ANALGESIC BALM CRM 120 GM TOP SCH ×4 (08:54→21:00)
[2019-03-17] MEDS: HEPARIN SOD (PORCINE) 5000 UNITS/ML VIAL SQ SCH ×2 (08:54→21:00)
[2019-03-18] MEDS: IPRATROPIUM 0.5MG/ALBUTEROL 2.5MG INH SOL UD 3ML (DUONEB)(J7620) NEB PRN ×2 (04:35→09:48)
[2019-03-18] MEDS: ALPRAZolam 0.25 MG TAB PO PRN (04:36)
[2019-03-18 06:00] VITALS: BP 141/64
[2019-03-18] MEDS: SYMBICORT 160/4.5MCG INHALER 6GM INH SCH ×2 (07:17→18:41)
[2019-03-18] MEDS: TIOTROPIUM INHALER/CAPSULE (SPIRIVA) INH SCH (07:17)
[2019-03-18] MEDS: LEVALBUTEROL 1.25 MG/0.5 ML CONCENTRATE NEB INH PRN ×2 (07:17→18:42)
[2019-03-18] MEDS: HumaLOG INSULIN (NovoLOG) PER UNIT SC SCH ×4 (07:30→21:16)
[2019-03-18] MEDS: LEVEMIR (INSULIN DETEMIR) 1 UNITS/0.01ML SC SCH (09:00)
[2019-03-18] MEDS: SENOKOT S TAB PO SCH ×2 (09:00→19:35)
[2019-03-18] MEDS: PANTOPRAZOLE 40MG TAB (PROTONIX) PO SCH (09:00)
[2019-03-18] MEDS: ATORVASTATIN 10 MG TAB PO SCH (09:00)
[2019-03-18] MEDS: ANALGESIC BALM CRM 120 GM TOP SCH ×4 (09:00→21:16)
[2019-03-18] MEDS: ASCORBIC ACID 500 MG TAB PO SCH ×2 (09:00→19:35)
[2019-03-18] MEDS: FERROUS SULFATE 325MG TAB PO SCH ×2 (09:00→19:35)
[2019-03-18] MEDS: HEPARIN SOD (PORCINE) 5000 UNITS/ML VIAL SQ SCH ×2 (09:00→21:16)
[2019-03-18] MEDS: TORSEMIDE 20 MG TAB PO SCH (09:50)
[2019-03-18] MEDS: ASPIRIN 81 MG ENTERIC TAB PO SCH (09:50)
[2019-03-18] MEDS: CEFDINIR 300 MG CAP (OMNICEF) PO SCH ×2 (09:50→19:35)
[2019-03-18] MEDS: predniSONE 10 MG TAB PO SCH (09:50)
[2019-03-18] MEDS: ACETAMINOPHEN TAB 650MG DOSE (2X325MG) PO PRN (09:50)
[2019-03-18] MEDS: guaiFENesin ER 600 MG TAB PO SCH ×2 (09:50→19:35)
[2019-03-18 11:06] LABS: HEMOGLOBIN 8.6 g/dl (12.0-15.5); MEAN CORPUSCULAR HEMOGLOBIN 28.6 pg (27.0-33.0); MEAN CORPUSCULAR HGB CONC 30.7 g/dl (32.0-36.5); PLATELET COUNT, AUTOMATED 428 10^3/uL (150-450); RED BLOOD COUNT 3.01 10^6/uL (4.00-5.40); WHITE BLOOD COUNT 11.7 10^3/uL (4.0-10.0)
--- NOTE | 2019-03-18 11:18 | REP ---
Portable chest x-ray: Single view. History: Difficulty breathing. Comparison chest x-ray: March 06, 2019. Findings: Oxygen delivery tubing is seen. Median sternotomy wires are noted. Cardiac enlargement is seen unchanged. There are air bronchograms and pulmonary parenchymal opacity overlying the right heart border consistent with right middle lobe atelectasis unchanged from the prior study. Recent CT study showed consolidation and collapse in the lower lobes as well. There is slight blunting of the lateral pleural angles bilaterally. Radiographic findings are essentially unchanged from the March 06, 2019 study. Electronically Signed by Chau Paulson MD 03/18/2019 07:17 P
[2019-03-18 11:28] LABS: BLOOD UREA NITROGEN 28 MG/DL (7-18); CALCIUM LEVEL 8.3 MG/DL (8.8-10.2); CARBON DIOXIDE LEVEL 39 MEQ/L (21-32); CHLORIDE LEVEL 96 MEQ/L (98-107); CREATININE FOR GFR 0.94 MG/DL (0.55-1.30); GLOMERULAR FILTRATION RATE > 60.0 (>32); GLUCOSE, FASTING 147 MG/DL (70-100); MAGNESIUM LEVEL 1.5 MG/DL (1.8-2.4); NT-PRO BNP 1181 PG/ML (<450); POTASSIUM SERUM 3.8 MEQ/L (3.5-5.1); SODIUM LEVEL 138 MEQ/L (136-145)
[2019-03-18 11:39] LABS: ERYTHROCYTE SEDIMENTATION RATE 126 mm/hr (0-42)
--- NOTE | 2019-03-18 13:54 | IPN ---
DATE: 03/18/2019 SUBJECTIVE: The patient is seen and examined in the room today. The patient complains about persistent shortness of breath. The patient stated that she has been having a feeling that the phlegm is getting stuck in her chest and the throat, but she cannot cough it up. The patient had a history of refusing medications and refused blood draw; however, in the last few days the patient has been more compliant with the medications. OBJECTIVE: VITAL SIGNS: Temperature is 99, pulse 107, respiratory rate is 20, blood pressure is 141/64, pulse oxygen is 98% with 2 liters oxygen. GENERAL: The patient is in mild to moderate distress secondary to persistent shortness of breath. HEENT: Normocephalic, atraumatic. Extraocular motors are grossly intact. CARDIOVASCULAR: Tachycardic. Positive S1, S2. RESPIRATORY: Very shallow breathing, tachypneic. Positive crackles bilaterally. ABDOMEN: Soft, nontender. Bowel sounds present. EXTREMITIES: Positive pitting edema bilaterally. LABORATORY DATA: WBC 11.7, hemoglobin 8.6, hematocrit 28, platelet count is 428. Sodium is 138, potassium 3.8, chloride is 96, carbon dioxide is 39, BUN 28, creatinine 0.94, GFR is greater than 60, fasting glucose 147, calcium 8.3, magnesium 1.5, C-reactive protein is 15.8, BNP is 1181. ASSESSMENT AND PLAN: 1. Acute on chronic respiratory failure. The patient originally was in alternate level of care (ALC) status. Due to acute change in her clinical picture, the patient was changed to acute status. At baseline, the patient has end stage chronic obstructive pulmonary disease (COPD). The patient also has diastolic congestive heart failure (CHF) exacerbation. The patient has not been compliant with medications. There are many times the patient also has refused laboratory tests. Previously, the patient was found to have pneumonia. Sputum culture from 03/04/2019 demonstrated Raoultella planticola. Today, the patient finally agreed for a lab draw and the patient agreed for chest x-ray. The patient still does have very elevated C-reactive protein and ESR and white count. The patient also had low grade temperature in the last few days. We will reorder the sputum culture. We will encourage increased compliance with diuretic usage and antibiotics. 2. Diastolic congestive heart failure (CHF) exacerbation. The patient has had multiple refusals of diuretics in the past. In the last few days, the patient has been more compliant with medication. The patient's peripheral edema has shown some improvement. The patient also has improvement of the BNP. 3. History of pulmonary hypertension. Diuretic ordered. 4. History of left lower extremity deep vein thrombosis (DVT). The patient is continued to refuse heparin. 5. History of transient ischemic attack. Aspirin ordered, but the patient has been refusing the medications. 6. Anxiety. On Xanax. 7. Coronary artery disease, status post stent placement. Aspirin and Lipitor ordered. 8. Dementia. The patient does not have capacity per previous psychiatry evaluation. The patient is waiting for placement. 9. Medical noncompliance complicating the patient's care significantly. 10. Deep vein thrombosis (DVT) prophylaxis. TEDs and compressions ordered for the patient.
[2019-03-18] MEDS ORDERED: ISOVUE-370 76% 100ML VIAL (Q9967) As Ordered ONE (15:38)
--- NOTE | 2019-03-18 16:35 | REP ---
CT pulmonary angiogram: With IV contrast. History: Rule out pulmonary embolus. Comparison studies: Comparison noncontrast CT study March 07, 2019. Comparison CT ANGIO April 21, 2018. Contrast dose: 75 ML of Isovue [address] technique: Helical scanning is acquired and overlapping 1.5 mm and contiguous 3 mm axial images are reformatted. In addition, maximum intensity projection and multiplanar re-formation images are generated in sagittal and coronal imaging projections. CT pulmonary angiographic findings: There is good opacification of the pulmonary arterial tree. There is no filling defect or vessel cutoff to suggest pulmonary embolism. Thoracic aorta shows no evidence of aneurysm or dissection. Great vessels are tortuous and calcific. There is a fairly large hiatal hernia posterior to the right heart. There is tracheal bronchial tree cartilage calcification. There are inspissated secretions or other material and endobronchially in the right lower lobe and right middle lobe bronchi and there is collapse and consolidation of the right middle and right lower lobe. Similar changes are noted in the left lower lobe with collapse and consolidation in the left lower lobe. This process is not new although it is more extensive than on April 21 2018. The right middle lobe collapse and consolidation is new compared to the prior study. There is mild bronchial wall thickening in the upper lobes. There is a peripheral consolidation pattern in the posterior segment of the right upper lobe which may be developing infiltrate. There are emphysematous changes in the upper lobes. No pleural or pericardial effusion is appreciated. No adrenal lesion is seen. Impression: Lobar collapse right lower lobe, left lower lobe, right middle lobe. More extensive but not new when compared to the April 21, 2018 study. Inspissated endobronchial secretions. Peribronchial thickening question bronchitis. New peripheral consolidation posterior segment right upper lobe consistent with pneumonia. Emphysematous changes. No CT evidence of pulmonary embolus. Electronically Signed by Chau Paulson MD 03/18/2019 07:36 P
[2019-03-18 22:00] VITALS: BP 120/56
[2019-03-18] MEDS: traMADol 50 MG TAB PO PRN (23:43)
[2019-03-19] MEDS: IPRATROPIUM 0.5MG/ALBUTEROL 2.5MG INH SOL UD 3ML (DUONEB)(J7620) NEB PRN ×3 (00:03→15:23)
[2019-03-19] MEDS: ONDANSETRON 4 MG ORAL DISINTEGRATING TAB (Q0162 PER 1MG) PO PRN (00:05)
[2019-03-19] MEDS: ALPRAZolam 0.25 MG TAB PO PRN ×2 (00:49→15:42)
[2019-03-19 06:00] VITALS: BP 118/69
[2019-03-19] MEDS: SYMBICORT 160/4.5MCG INHALER 6GM INH SCH ×2 (07:24→20:16)
[2019-03-19] MEDS: TIOTROPIUM INHALER/CAPSULE (SPIRIVA) INH SCH (07:24)
[2019-03-19] MEDS: ATORVASTATIN 10 MG TAB PO SCH ×2 (09:00→09:30)
[2019-03-19] MEDS: ANALGESIC BALM CRM 120 GM TOP SCH ×4 (09:00→21:00)
[2019-03-19] MEDS: ASCORBIC ACID 500 MG TAB PO SCH ×3 (09:00→21:24)
[2019-03-19] MEDS: FERROUS SULFATE 325MG TAB PO SCH ×3 (09:00→21:23)
[2019-03-19] MEDS: SENOKOT S TAB PO SCH ×3 (09:00→21:24)
[2019-03-19] MEDS: HEPARIN SOD (PORCINE) 5000 UNITS/ML VIAL SQ SCH ×2 (09:29→21:00)
[2019-03-19] MEDS: LEVEMIR (INSULIN DETEMIR) 1 UNITS/0.01ML SC SCH (09:30)
[2019-03-19] MEDS: HumaLOG INSULIN (NovoLOG) PER UNIT SC SCH ×4 (09:30→21:00)
[2019-03-19] MEDS: PANTOPRAZOLE 40MG TAB (PROTONIX) PO SCH ×2 (09:31→11:17)
[2019-03-19] MEDS: predniSONE 10 MG TAB PO SCH (09:31)
[2019-03-19] MEDS: ASPIRIN 81 MG ENTERIC TAB PO SCH (09:31)
[2019-03-19] MEDS: CEFDINIR 300 MG CAP (OMNICEF) PO SCH ×2 (09:31→21:23)
[2019-03-19] MEDS: TORSEMIDE 20 MG TAB PO SCH (09:31)
[2019-03-19] MEDS: guaiFENesin ER 600 MG TAB PO SCH ×2 (09:31→21:23)
--- NOTE | 2019-03-19 11:18 | IPNPDOC ---
Date Seen The patient was seen on 03/19/19. Progress Note SUBJECTIVE: pt has a chronic cough and sob, unchanged overnight. no fever or chills. Per RN pt has refused meds. HCP , pt's son, insists on full care, and pt does not have mental capacity to make her own decisions. Per pulmonary, pt has endstage disease with overall grim prognosis, and appropriate for hospice care. OBJECTIVE: VITAL SIGNS: pls see below GENERAL: The patient is in mild to moderate distress secondary to persistent shortness of breath. HEENT: Normocephalic, atraumatic. Extraocular motors are grossly intact. CARDIOVASCULAR: Tachycardic. Positive S1, S2. RESPIRATORY: Very shallow breathing, tachypneic. Positive crackles bilaterally. ABDOMEN: Soft, nontender. Bowel sounds present. EXTREMITIES: Positive pitting edema bilaterally. LABORATORY DATA: WBC 11.7, hemoglobin 8.6, hematocrit 28, platelet count is 428. Sodium is 138, potassium 3.8, chloride is 96, carbon dioxide is 39, BUN 28, creatinine 0.94, GFR is greater than 60, fasting glucose 147, calcium 8.3, magnesium 1.5, C-reactive protein is 15.8, BNP is 1181. ASSESSMENT AND PLAN: 1. Acute on chronic respiratory failure. The patient originally was in alternate level of care (ALC) status. Due to acute change in her clinical picture, the patient was changed to acute status. At baseline, the patient has end stage chronic obstructive pulmonary disease (COPD). The patient also has diastolic congestive heart failure (CHF) exacerbation. The patient has not been compliant with medications. There are many times the patient also has refused laboratory tests. Previously, the patient was found to have pneumonia. Sputum culture from 03/04/2019 demonstrated Raoultella planticola. Today, the patient finally agreed for a lab draw and the patient agreed for chest x-ray. The patient still does have very elevated C-reactive protein and ESR and white count. The patient also had low grade temperature in the last few days. We will reorder the sputum culture. We will encourage increased compliance with diuretic usage and antibiotics. 2. Diastolic congestive heart failure (CHF) exacerbation. The patient has had multiple refusals of diuretics in the past. In the last few days, the patient has been more compliant with medication. The patient's peripheral edema has shown some improvement. The patient also has improvement of the BNP. 3. History of pulmonary hypertension. Diuretic ordered. 4. History of left lower extremity deep vein thrombosis (DVT). The patient is continued to refuse heparin. 5. History of transient ischemic attack. Aspirin ordered, but the patient has been refusing the medications. 6. Anxiety. On Xanax. 7. Coronary artery disease, status post stent placement. Aspirin and Lipitor ordered. 8. Dementia. The patient does not have capacity per previous psychiatry evaluation. The patient is waiting for placement. 9. Medical noncompliance complicating the patient's care significantly. 10. Deep vein thrombosis (DVT) prophylaxis. TEDs and compressions ordered for the patient. code: DNR DNI A-FIB/CHADSVASC A-FIB History Current/History of A-Fib/PAF?: No Current Oral Anticoagulant The: No VS, I&O, 24H, Fishbone Vital Signs/I&O Vital Signs Date Time Temp Pulse Resp B/P (MAP) Pulse Ox O2 Delivery O2 Flow Rate FiO2 03/19/19 10:26 3.0 03/19/19 06:00 97.4 94 24 118/69 (85) 97 I&O- Last 24 Hours up to 6 AM 03/19/19 06:00 Intake Total 1460 ml Output Total 350 ml Balance 1110 ml Laboratory Data 24H LABS Laboratory Tests 2 03/18/19 11:31: Bedside Glucose (Misc Panel) 163H 03/18/19 16:24: Bedside Glucose (Misc Panel) 279H 03/18/19 21:02: Bedside Glucose (Misc Panel) 240H 03/19/19 08:34: Bedside Glucose (Misc Panel) 127H Microbiology Microbiology 03/18/19 Respiratory Virus Panel (PCR) ([facility]) - Final, Complete Parainfluenza 3 (Piv3) VIKASH ANTHONY MD March 19, 2019 11:17
[2019-03-19] MEDS: SODIUM CHLORIDE HYPERTONIC 3% 15ML NEB SOL INH SCH ×4 (11:26→23:00)
--- NOTE | 2019-03-19 11:56 | CR ---
DATE OF CONSULTATION: 03/19/2019 REASON FOR CONSULTATION: I was asked by Dr. Peraza to evaluate Ms. Bowers for an abnormal chest CT scan. HISTORY OF PRESENT ILLNESS: Mrs. Bowers is an 83-year-old female, well known to the pulmonary service for her multiple admissions related to end stage emphysema and chronic obstructive pulmonary disease (COPD). She was actually admitted this time on 07/31/2018 for COPD exacerbation and inability to care for herself. In essence, she has been in the hospital since that time. Since she has been here, she has been found to be incapacitated in regard to making medical decisions. Apparently, she has been in alternate level of care (ALC) with an attempt to find placement. She has been having "low grade" fevers over the past 2 weeks, maximum temperature (t-max) 100.4. Because she refuses multiple cares, including prophylaxis for deep vein thrombosis (DVT) and actually IV antibiotics despite positive sputum, the decision yesterday was to obtain a CT pulmonary angiogram. That CT scan showed bilateral lower lobe atelectasis that has increased but is not new dating back to at least April of 2018. It is because of this finding that pulmonary was consulted. This morning, Ms. Bowers is lying in bed saying, "please help me" multiple times but then yet could turn and ask multiple questions and speak full sentences. There was an occasional cough heard during the assessment. She cannot offer any other history. ALLERGIES: LEVOFLOXACIN, PROCAINE. MEDICATIONS: - guaifenesin 600 mg by mouth twice a day - acetaminophen 650 mg every 4 hours as needed - DuoNeb every 2 hours as needed - Xanax 0.25 mg by mouth three times a day as needed - vitamin C 500 mg by mouth twice a day - aspirin 81 mg by mouth daily - Lipitor 10 mg by mouth daily - Symbicort 160/4.5 two puffs twice a day - Omnicef 300 mg by mouth twice a day - Zyrtec 10 mg by mouth as needed - Benadryl 25 mg by mouth every 4 hours as needed - Senokot one tablet by mouth twice a day - ferrous sulfate 325 mg by mouth twice a day - heparin 5000 units subcutaneous every 12 hours, which she typically declines - Levemir 5 units subcutaneous in the morning - insulin sliding scale - Xopenex one every 4 hours as needed - magic mouthwash 5 mg by mouth every 6 hours as needed - menthol/ methylsalicylate cream topically four times a day - milk of magnesia 15 mg by mouth daily as needed - Nitrostat 0.4 mg sublingual every 5 minutes as needed - Zofran 4 mg by mouth every 4 hours as needed - Protonix 40 mg by mouth daily - MiraLAX one packet by mouth daily as needed - prednisone 10 mg by mouth daily - Mouthkote one spray to the mouth twice a day as needed - Spiriva one puff daily - torsemide 40 mg by mouth daily - Ultram 50 mg by mouth every 8 hours as needed PAST MEDICAL HISTORY: 1. COPD, end stage with chronic hypoxemia. 2. Emphysema. 3. Pulmonary hypertension. 4. Coronary artery disease. A. Status post coronary artery bypass graft (CABG). B. Status post myocardial infarction. C. Chronic right bundle branch block. 5. History of transient ischemic attack. 6. History of malaria. 7. History of dysentery. 8. Anxiety. 9. History of methicillin resistant Staphylococcus aureus (MRSA). 10. History of diverticulosis. 11. Osteopenia. 12. Gastroesophageal reflux disease (GERD). 13. Diastolic congestive heart failure (CHF). 14. Dementia. 15. History of tobacco usage. 16. Has been declare incompetent for medical decisions. SOCIAL HISTORY: Ms. Bowers is a former smoker. She does not drink alcohol. She has been in the hospital since July and has had multiple admissions since that time. She has been declared mentally incompetent for decision making. FAMILY HISTORY: Her grandmother is and had breast cancer. Her father at age 80 and had Parkinson's disease. Her mother at age 90 of old age. REVIEW OF SYSTEMS: Unobtainable from the patient. What is known is contained within history of present illness. PHYSICAL EXAMINATION: GENERAL: Ms. Bowers is lying down and using a nebulizer on and off during the evaluation. The nebulizer is actually empty. She can complete full sentences. Very rare cough during the evaluation. VITAL SIGNS: Temperature 97.5, which is her maximum temperature (t-max) today, pulse 94, respiratory rate 24, blood pressure 118/69 with a mean arterial pressure of 85, SpO2 is 97% on 3 liters by nasal cannula. HEENT: Anicteric. Nares and oropharynx not examined secondary to full face mask during the physical portion of the evaluation. NECK: Supple. Without thyromegaly or mass. Trachea is midline. LYMPHATICS: Without cervical or supraclavicular lymphadenopathy. CHEST: Increased AP diameter. Notable for kyphosis. LUNGS: Symmetric excursion. Markedly diminished air entry. Absent breath sounds at the bases bilaterally. Occasional rhonchi. No significant crackles. Prolonged expiratory phase. No accessory muscle usage or retraction. Hyperresonance to percussion. CARDIOVASCULAR: Distant. Regular rate and rhythm. Normal S1, S2. No murmur, rub or gallop appreciated. Unable to appreciate point of maximum impulse (PMI). ABDOMEN: Normoactive bowel sounds. Soft, nondistended, nontender. No hepatosplenomegaly or masses appreciated. EXTREMITIES: Without clubbing, cyanosis, or significant edema. Palpable pedal pulses. SKIN: Notable for bruising on all extremities. MUSCULOSKELETAL: Notable for cachexia. NEUROLOGIC: Awake and alert. PSYCHIATRIC: Changing affect during the evaluation. LABORATORY DATA: CBC shows a hemoglobin of 8.6, hematocrit 28, platelet count 428,000, white blood cell count 11,700. Sedimentation rate 126. Chemistry showed sodium 138, potassium 3.8, chloride 96, bicarbonate 39, anion gap 3, BUN 28, creatinine 0.9, glucose 147, calcium 8.3, magnesium 1.5, C-reactive protein 15.8, BNP 1181. Her respiratory panel was positive for parainfluenza on 03/18/2019. I reviewed her chest CT scan, as well as the report from 03/18/2019. That CT scan showed normal appearing cardiac silhouette. No mediastinal or hilar adenopathy. There are extensive bilateral emphysematous changes. There are scattered regions of inspissated secretions on the right side. There is bilateral lower lobe collapse, as well as partial collapse of the right middle lobe. There are air bronchograms present. These changes were present dating back to April 2018 but have progressed. There is perhaps mild progression compared to her chest CT scan from 04/07/2018. No pulmonary emboli. I also had reviewed both the CT scan from 03/07/2019 and from 04/2018. She also has a hiatal hernia. IMPRESSION: 1. Abnormal chest CT scan with collapse of bilateral lower lobes and partial right middle lobe collapse. These changes are chronic and progressive. They are likely in part related to her kyphosis. I suspect a lot of this is secondary to her declining to use tools to help with hyperinflation. 2. Chronic obstructive pulmonary disease (COPD) with hypoxemia, end stage, secondary to emphysema. 3. Parainfluenza, likely worsening her underlying COPD. 4. Diastolic heart failure. 5. 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 6. Chronic prednisone usage. 7. Dementia and medical incapacity. RECOMMENDATIONS: 1. We will try to help her with expectoration. However, I am concerned that she will decline all of these recommendations as she has in the past. 2. We will try hypertonic saline nebulizations. 3. We will consult respiratory therapy for hyperinflation therapy to include EZPAP, Acapella, or vest. I will defer to their expertise as to what is the best modality. Again, I am not certain that she is going to be able to cooperate with any of these recommendations. 4. Bronchoscopy is not indicated. Unfortunately, I have nothing further to offer other than the above suggestions. Therefore, I will sign off at this time. Please reconsult the pulmonary team in the future if we can be of any further assistance.
[2019-03-20] MEDS: IPRATROPIUM 0.5MG/ALBUTEROL 2.5MG INH SOL UD 3ML (DUONEB)(J7620) NEB PRN ×3 (01:03→22:30)
[2019-03-20] MEDS: ALPRAZolam 0.25 MG TAB PO PRN ×3 (02:36→20:12)
[2019-03-20] MEDS: LEVALBUTEROL 1.25 MG/0.5 ML CONCENTRATE NEB INH PRN ×4 (03:00→20:18)
[2019-03-20] MEDS: SODIUM CHLORIDE HYPERTONIC 3% 15ML NEB SOL INH SCH ×5 (04:31→20:19)
[2019-03-20 06:00] VITALS: BP 141/65
[2019-03-20] MEDS ORDERED: ALPRAZolam 0.5 MG TAB PO ONE (06:30)
--- NOTE | 2019-03-20 06:54 | IPNPDOC ---
Date Seen The patient was seen on 03/20/19. Progress Note SUBJECTIVE: Per pharmacy ancillary, Dr. Balderas, after reviewing recent CT chest with collapsed lung b/l, she recommends hospice and [employer]. After extensive discussion with the patient's son and daughter, both are in agreement that due to endstage COPD with collapsed lung, family is willing to meet with hospice. Pt has had increasing cough and sob throughout the night, necessitating q2hrly nebs. This am, pt says, "Don't beat around the padilla. Cut the SH-T! I'm dying, I know. I want to live as long as I possibly can. I don't care where I am. I don't need to be home. Give me what I need." she continues to have increasing respiratory distress and comfort. "You monitor me, and give me whatever I need." Hospice has been consulted due to progressive and terminal lung disease. OBJECTIVE: VITAL SIGNS: pls see below GENERAL: ]moderate distress secondary to persistent shortness of breath.conversational dyspnea with 2-3 words. use of accessory muscles HEENT: Normocephalic, atraumatic. Extraocular motors are grossly intact. CARDIOVASCULAR: Tachycardic. Positive S1, S2. RESPIRATORY: Very shallow breathing, tachypneic. Positive crackles bilaterally. ABDOMEN: Soft, nontender. Bowel sounds present. EXTREMITIES: Positive pitting edema bilaterally. LABORATORY DATA, IMAGING STUDIES, MICROBIOLOGY: PLS SEE BELOW. CT CHEST 03/18/19: Lobar collapse right lower lobe, left lower lobe, right middle lobe. More extensive but not new when compared to the April 21, 2018 study. Inspissated endobronchial secretions. Peribronchial thickening question bronchitis. New peripheral consolidation posterior segment right upper lobe consistent with pneumonia. Emphysematous changes. No CT evidence of pulmonary embolus. Electronically Signed by Chau Paulson MD 03/18/2019 07:36 P ASSESSMENT AND PLAN:Mrs. Bowers is an 83-year-old female, DNR DNI wellknown to the pulmonary service for her multiple admissions related to end stage emphysema and chronic obstructive pulmonary disease (COPD). She was actually admitted this time on 07/31/2018 for COPD exacerbation and inability to care for herself. In essence, she has been in the hospital since that time. Since she has been here, she has been found to be incapacitated in regard to making medical decisions. Apparently, she has been in alternate level of care (ALC) with an attempt to find placement. She has been having "low grade" fevers over the past 2 weeks, maximum temperature (t-max) 100.4. Because she refuses multiple cares, including prophylaxis for deep vein thrombosis (DVT) and actually IV antibiotics despite positive sputum, the decision yesterday was to obtain a CT pulmonary angiogram. That CT scan showed bilateral lower lobe atelectasis that has increased but is not new dating back to at least April of 2018. It is because of this finding that pulmonary was consulted. This morning, Ms. Bowers is lying in bed saying, "please help me" multiple times but then yet could turn and ask multiple questions and speak full sentences. There was an occasional cough heard during the assessment. She cannot offer any other history. Acute on chronic respiratory failure. The patient originally was in alternate level of care (ALC) status. Due to acute change in her clinical picture, the patient was changed to acute status. At baseline, the patient has end stage chronic obstructive pulmonary disease (COPD). The patient also has diastolic congestive heart failure (CHF) exacerbation. The patient has not been compliant with medications. There are many times the patient also has refused laboratory tests. Previously, the patient was found to have pneumonia. Sputum culture from 03/04/2019 demonstrated Raoultella planticola. Today, the patient finally agreed for a lab draw and the patient agreed for chest x-ray. The patient still does have very elevated C-reactive protein and ESR and white count. The patient also had low grade temperature in the last few days. We will reorder the sputum culture. We will encourage increased compliance with diuretic usage and antibiotics. Per Pulmonary, "Abnormal chest CT scan with collapse of bilateral lower lobes and partial right middle lobe collapse. These changes are chronic and progressive. They are likely in part related to her kyphosis. I suspect a lot of this is secondary to her declining to use tools to help with hyperinflation. We will try to help her with expectoration. However, I am concerned that she will decline all of these recommendations as she has in the past. We will try hypertonic saline nebulizations. We will consult respiratory therapy for hyperinflation therapy to include EZPAP, Acapella, or vest. I will defer to their expertise as to what is the best modality. Again, I am not certain that she is going to be able to cooperate with any of these recommendations.Bronchoscopy is not indicated.Unfortunately, I have nothing further to offer other than the above suggestions. Therefore, I will sign off at this time. Please reconsult the pulmonary team in the future if we can be of any further assistance." Diastolic congestive heart failure (CHF) exacerbation. The patient has had multiple refusals of diuretics in the past. In the last few days, the patient has been more compliant with medication. The patient's peripheral edema has shown some improvement. The patient also has improvement of the BNP. History of pulmonary hypertension. Diuretic ordered. History of left lower extremity deep vein thrombosis (DVT). The patient is continued to refuse heparin. History of transient ischemic attack. Aspirin ordered, but the patient has been refusing the medications. Anxiety. On Xanax. Coronary artery disease, status post stent placement. Aspirin and Lipitor ordered. Dementia. The patient does not have capacity per previous psychiatry evaluation. The patient is waiting for placement. Medical noncompliance complicating the patient's care significantly. Chronic obstructive pulmonary disease (COPD) with hypoxemia, end stage, secondary to emphysema. Parainfluenza, likely worsening her underlying COPD. 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 Chronic prednisone usage. Dementia and medical incapacity. Deep vein thrombosis (DVT) prophylaxis. TEDs and compressions ordered for the patient. code: DNR DNI disposition: poor and grim prognosis. Hospice consulted. A-FIB/CHADSVASC A-FIB History Current/History of A-Fib/PAF?: No Current Oral Anticoagulant The: No VS, I&O, 24H, Fishbone Vital Signs/I&O Vital Signs Date Time Temp Pulse Resp B/P (MAP) Pulse Ox O2 Delivery O2 Flow Rate FiO2 03/20/19 05:50 3.0 03/19/19 06:00 97.4 94 24 118/69 (85) 97 I&O- Last 24 Hours up to 6 AM 03/20/19 06:00 Intake Total 200 ml Output Total 1150 ml Balance -950 ml Laboratory Data 24H LABS Laboratory Tests 2 03/19/19 08:34: Bedside Glucose (Misc Panel) 127H 03/19/19 11:29: Bedside Glucose (Misc Panel) 208H 03/19/19 16:21: Bedside Glucose (Misc Panel) 237H 03/19/19 20:22: Bedside Glucose (Misc Panel) 187H Microbiology Microbiology 03/18/19 Respiratory Virus Panel (PCR) ([facility]) - Final, Complete Parainfluenza 3 (Piv3) VIKASH ANTHONY MD March 20, 2019 06:48
[2019-03-20] MEDS: SYMBICORT 160/4.5MCG INHALER 6GM INH SCH ×2 (07:17→20:19)
[2019-03-20] MEDS: TIOTROPIUM INHALER/CAPSULE (SPIRIVA) INH SCH (07:18)
[2019-03-20] MEDS: HumaLOG INSULIN (NovoLOG) PER UNIT SC SCH ×4 (08:27→21:00)
[2019-03-20] MEDS: LEVEMIR (INSULIN DETEMIR) 1 UNITS/0.01ML SC SCH (08:27)
[2019-03-20] MEDS: HEPARIN SOD (PORCINE) 5000 UNITS/ML VIAL SQ SCH ×2 (08:29→21:00)
[2019-03-20] MEDS: traMADol 50 MG TAB PO PRN (08:30)
[2019-03-20] MEDS: predniSONE 10 MG TAB PO SCH (08:30)
[2019-03-20] MEDS: guaiFENesin ER 600 MG TAB PO SCH ×2 (08:31→20:12)
[2019-03-20] MEDS: TORSEMIDE 20 MG TAB PO SCH (08:31)
[2019-03-20] MEDS: PANTOPRAZOLE 40MG TAB (PROTONIX) PO SCH (08:31)
[2019-03-20] MEDS: CEFDINIR 300 MG CAP (OMNICEF) PO SCH ×2 (08:31→20:11)
[2019-03-20] MEDS: ASPIRIN 81 MG ENTERIC TAB PO SCH (08:32)
[2019-03-20] MEDS: ASCORBIC ACID 500 MG TAB PO SCH ×2 (08:32→21:00)
[2019-03-20] MEDS: FERROUS SULFATE 325MG TAB PO SCH ×2 (08:32→21:00)
[2019-03-20] MEDS: ATORVASTATIN 10 MG TAB PO SCH (08:32)
[2019-03-20] MEDS: SENOKOT S TAB PO SCH ×2 (08:32→21:00)
[2019-03-20] MEDS: ANALGESIC BALM CRM 120 GM TOP SCH ×4 (08:33→21:00)
[2019-03-21] MEDS: LEVALBUTEROL 1.25 MG/0.5 ML CONCENTRATE NEB INH PRN ×4 (04:21→17:15)
[2019-03-21] MEDS: SODIUM CHLORIDE HYPERTONIC 3% 15ML NEB SOL INH SCH ×6 (04:21→20:00)
[2019-03-21] MEDS: ALPRAZolam 0.25 MG TAB PO PRN (05:27)
[2019-03-21 06:00] VITALS: BP 128/60
[2019-03-21] MEDS: HumaLOG INSULIN (NovoLOG) PER UNIT SC SCH ×2 (07:30→12:00)
[2019-03-21] MEDS ORDERED: methylPREDNISolone INJ 125 MG/2 ML VIAL (J2930) IV ONE (08:00)
[2019-03-21] MEDS ORDERED: RACEPINEPHrine 2.25 % UD INHA INH ONE ×2 (08:00→10:00)
[2019-03-21] MEDS ORDERED: FUROSEMIDE 20 MG/2 ML VIAL (J1940) IV ONE (08:00)
[2019-03-21] MEDS: TIOTROPIUM INHALER/CAPSULE (SPIRIVA) INH SCH (08:00)
[2019-03-21] MEDS: ATORVASTATIN 10 MG TAB PO SCH (08:14)
[2019-03-21] MEDS: predniSONE 10 MG TAB PO SCH (08:14)
[2019-03-21] MEDS: ASPIRIN 81 MG ENTERIC TAB PO SCH (08:14)
[2019-03-21] MEDS: PANTOPRAZOLE 40MG TAB (PROTONIX) PO SCH (08:14)
[2019-03-21] MEDS: SENOKOT S TAB PO SCH (08:14)
[2019-03-21] MEDS: guaiFENesin ER 600 MG TAB PO SCH ×2 (08:14→21:00)
[2019-03-21] MEDS: FERROUS SULFATE 325MG TAB PO SCH (08:14)
[2019-03-21] MEDS: CEFDINIR 300 MG CAP (OMNICEF) PO SCH ×2 (08:14→21:00)
[2019-03-21] MEDS: ASCORBIC ACID 500 MG TAB PO SCH (08:14)
[2019-03-21] MEDS: TORSEMIDE 20 MG TAB PO SCH (08:14)
[2019-03-21] MEDS: SYMBICORT 160/4.5MCG INHALER 6GM INH SCH ×2 (08:33→21:00)
--- NOTE | 2019-03-21 08:37 | REP ---
Portable chest x-ray: Sitting AP view. History: Shortness of breath. Comparison study: March 18, 2019. Findings: There is some improvement in aeration in the right middle lobe and right lower lobe. There is some residual plate-like atelectasis in the right base and and infiltrate is seen above this in the right mid perihilar region. Atelectasis with air bronchograms persist in the left lower lobe. Heart is unchanged in size. Median sternotomy wires are again seen. 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 Impression: Improved aeration right base. Some right perihilar infiltrate. Electronically Signed by Chau Paulson MD 03/21/2019 08:29 A
[2019-03-21] MEDS: LEVEMIR (INSULIN DETEMIR) 1 UNITS/0.01ML SC SCH (08:41)
[2019-03-21] MEDS: HEPARIN SOD (PORCINE) 5000 UNITS/ML VIAL SQ SCH ×2 (08:41→21:00)
[2019-03-21] MEDS: ANALGESIC BALM CRM 120 GM TOP SCH ×4 (08:42→21:00)
[2019-03-21 08:58] LABS: BLOOD UREA NITROGEN 27 MG/DL (7-18); CALCIUM LEVEL 9.3 MG/DL (8.8-10.2); CARBON DIOXIDE LEVEL 39 MEQ/L (21-32); CHLORIDE LEVEL 92 MEQ/L (98-107); CREATININE FOR GFR 0.82 MG/DL (0.55-1.30); GLOMERULAR FILTRATION RATE > 60.0 (>32); GLUCOSE, FASTING 158 MG/DL (70-100); MAGNESIUM LEVEL 1.5 MG/DL (1.8-2.4); SODIUM LEVEL 137 MEQ/L (136-145)
[2019-03-21] MEDS ORDERED: MORPHINE 4 MG/ML 1ML VIAL/SYRINGE (J2270) IV ONE (10:00)
[2019-03-21] MEDS ORDERED: SCOPOLAMINE 1MG TRANSDERMAL PATCH TOP PRN (10:15)
--- NOTE | 2019-03-21 14:11 | IPNPDOC ---
Date Seen The patient was seen on 03/21/19. Progress Note SUBJECTIVE: Patient was seen and examined at the bedside. She continues to have worsening respiratory distress despite maximal therapy with scheduled nebs and oral steroids. Pt's son has been contacted about [employer] and has agreed. His sister will be coming to [place], and on arrival, pt will be given [facility] meds. For her comfort, pt will be continued on diuretics, nebs. Hospice has been consulted. Other meds will be discontinued once Daughter arrives. OBJECTIVE: VITAL SIGNS: pls see below GENERAL: ]moderate distress secondary to persistent shortness of breath.conversational dyspnea with 2-3 words. use of accessory muscles HEENT: Normocephalic, atraumatic. Extraocular motors are grossly intact. CARDIOVASCULAR: Tachycardic. Positive S1, S2. RESPIRATORY: Very shallow breathing, tachypneic. Positive crackles bilaterally. ABDOMEN: Soft, nontender. Bowel sounds present. EXTREMITIES: Positive pitting edema bilaterally. LABORATORY DATA, IMAGING STUDIES, MICROBIOLOGY: PLS SEE BELOW. CT CHEST 03/18/19: Lobar collapse right lower lobe, left lower lobe, right middle lobe. More extensive but not new when compared to the April 21, 2018 study. Inspissated endobronchial secretions. Peribronchial thickening question bronchitis. New peripheral consolidation posterior segment right upper lobe consistent with pneumonia. Emphysematous changes. No CT evidence of pulmonary embolus. Electronically Signed by Chau Paulson MD 03/18/2019 07:36 P ASSESSMENT AND PLAN:Mrs. Bowers is an 83-year-old female, DNR DNI wellknown to the pulmonary service for her multiple admissions related to end stage emphysema and chronic obstructive pulmonary disease (COPD). She was actually admitted this time on 07/31/2018 for COPD exacerbation and inability to care for herself. In essence, she has been in the hospital since that time. Since she has been here, she has been found to be incapacitated in regard to making medical decisions. Apparently, she has been in alternate level of care (ALC) with an attempt to find placement. She has been having "low grade" fevers over the past 2 weeks, maximum temperature (t-max) 100.4. Because she refuses multiple cares, including prophylaxis for deep vein thrombosis (DVT) and actually IV antibiotics despite positive sputum, the decision yesterday was to obtain a CT pulmonary angiogram. That CT scan showed bilateral lower lobe atelectasis that has increased but is not new dating back to at least April of 2018. It is because of this finding that pulmonary was consulted. This morning, Ms. Bowers is lying in bed saying, "please help me" multiple times but then yet could turn and ask multiple questions and speak full sentences. There was an occasional cough heard during the assessment. She cannot offer any other history. Acute on chronic respiratory failure. The patient originally was in alternate level of care (ALC) status. Due to acute change in her clinical picture, the patient was changed to acute status. At baseline, the patient has end stage chronic obstructive pulmonary disease (COPD). The patient also has diastolic congestive heart failure (CHF) exacerbation. The patient has not been compliant with medications. There are many times the patient also has refused laboratory tests. Previously, the patient was found to have pneumonia. Sputum culture from 03/04/2019 demonstrated Raoultella planticola. Today, the patient finally agreed for a lab draw and the patient agreed for chest x-ray. The patient still does have very elevated C-reactive protein and ESR and white count. The patient also had low grade temperature in the last few days. We will reorder the sputum culture. We will encourage increased compliance with diuretic usage and antibiotics. Per Pulmonary, "Abnormal chest CT scan with collapse of bilateral lower lobes and partial right middle lobe collapse. These changes are chronic and progressive. They are likely in part related to her kyphosis. I suspect a lot of this is secondary to her declining to use tools to help with hyperinflation. We will try to help her with expectoration. However, I am concerned that she will decline all of these recommendations as she has in the past. We will try hypertonic saline nebulizations. We will consult respiratory therapy for hyperinflation therapy to include EZPAP, Acapella, or vest. I will defer to their expertise as to what is the best modality. Again, I am not certain that she is going to be able to cooperate with any of these recommendations.Bronchoscopy is not indicated.Unfortunately, I have nothing further to offer other than the above suggestions. Therefore, I will sign off at this time. Please reconsult the pulmonary team in the future if we can be of any further assistance." She continues to have worsening respiratory distress despite maximal therapy with scheduled nebs and oral steroids. Pt's son has been contacted about [employer] and has agreed. His sister will be coming to [place], and on arrival, pt will be given [facility] meds. For her comfort, pt will be continued on diuretics, nebs. Hospice has been consulted. Other meds will be discontinued once Daughter arrives. Diastolic congestive heart failure (CHF) exacerbation. The patient has had multiple refusals of diuretics in the past. In the last few days, the patient has been more compliant with medication. The patient's peripheral edema has shown some improvement. The patient also has improvement of the BNP. History of pulmonary hypertension. Diuretic ordered. History of left lower extremity deep vein thrombosis (DVT). The patient is continued to refuse heparin. History of transient ischemic attack. Aspirin ordered, but the patient has been refusing the medications. Anxiety. On Xanax. Coronary artery disease, status post stent placement. Aspirin and Lipitor ordered. Dementia. The patient does not have capacity per previous psychiatry evaluation. The patient is waiting for placement. Medical noncompliance complicating the patient's care significantly. Chronic obstructive pulmonary disease (COPD) with hypoxemia, end stage, secondary to emphysema. Parainfluenza, likely worsening her underlying COPD. 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 Chronic prednisone usage. Dementia and medical incapacity. Deep vein thrombosis (DVT) prophylaxis. TEDs and compressions ordered for the patient. code: DNR DNI disposition: poor and grim prognosis. Hospice consulted. She continues to have worsening respiratory distress despite maximal therapy with scheduled nebs and oral steroids. Pt's son has been contacted about [employer]EL[employer] and has agreed. His sister will be coming to [place], and on arrival, pt will be given [facility] meds. For her comfort, pt will be continued on diuretics, nebs. Hospice has been consulted. Other meds will be discontinued once Daughter arrives. A-FIB/CHADSVASC A-FIB History Current/History of A-Fib/PAF?: No Current Oral Anticoagulant The: No VS, I&O, 24H, Fishbone Vital Signs/I&O Vital Signs Date Time Temp Pulse Resp B/P (MAP) Pulse Ox O2 Delivery O2 Flow Rate FiO2 03/21/19 10:39 24 4.0 03/21/19 08:33 Nasal Cannula 03/21/19 06:00 98.0 93 128/60 (82) 96 I&O- Last 24 Hours up to 6 AM 03/21/19 06:00 Intake Total 760 ml Output Total 250 ml Balance 510 ml Laboratory Data 24H LABS Laboratory Tests 2 03/20/19 16:41: Bedside Glucose (Misc Panel) 140H 03/20/19 20:50: Bedside Glucose (Misc Panel) 238H 03/21/19 06:48: Bedside Glucose (Misc Panel) 151H 03/21/19 08:14: Anion Gap 6L, Glomerular Filtration Rate > 60.0, Blood Urea Nitrogen 27H, Creatinine 0.82, Sodium Level 137, Potassium Level 3.0#L, Chloride Level 92L, Carbon Dioxide Level 39H, Calcium Level 9.3, Magnesium Level 1.5L CBC/BMP Laboratory Tests 03/21/19 08:14 Calcium Level 9.3 Microbiology Microbiology 03/18/19 Respiratory Virus Panel (PCR) ([facility]) - Final, Complete Parainfluenza 3 (Piv3) VIKASH ANTHONY MD March 21, 2019 14:11
[2019-03-21] MEDS: predniSONE 20 MG TAB PO SCH ×2 (16:00→21:00)
[2019-03-21] MEDS: ALPRAZolam 0.5 MG TAB PO PRN (18:22)
[2019-03-21] MEDS: IPRATROPIUM 0.5MG/ALBUTEROL 2.5MG INH SOL UD 3ML (DUONEB)(J7620) NEB PRN (20:05)
[2019-03-22] MEDS: SODIUM CHLORIDE HYPERTONIC 3% 15ML NEB SOL INH SCH ×7 (03:08→22:55)
[2019-03-22] MEDS: ALPRAZolam 0.5 MG TAB PO PRN ×2 (06:53→16:31)
[2019-03-22] MEDS: SYMBICORT 160/4.5MCG INHALER 6GM INH SCH ×2 (07:59→19:37)
[2019-03-22] MEDS: TIOTROPIUM INHALER/CAPSULE (SPIRIVA) INH SCH (07:59)
[2019-03-22] MEDS ORDERED: IPRATROPIUM 0.5MG/ALBUTEROL 2.5MG INH SOL UD 3ML (DUONEB)(J7620) NEB ONE (08:00)
[2019-03-22] MEDS: TORSEMIDE 20 MG TAB PO SCH (08:52)
[2019-03-22] MEDS: predniSONE 20 MG TAB PO SCH ×2 (08:53→16:31)
[2019-03-22] MEDS: ANALGESIC BALM CRM 120 GM TOP SCH ×2 (09:00→13:00)
[2019-03-22] MEDS: HEPARIN SOD (PORCINE) 5000 UNITS/ML VIAL SQ SCH (09:00)
[2019-03-22] MEDS: CEFDINIR 300 MG CAP (OMNICEF) PO SCH ×2 (11:10→20:38)
[2019-03-22] MEDS: guaiFENesin ER 600 MG TAB PO SCH (11:10)
--- NOTE | 2019-03-22 14:07 | IPNPDOC ---
Date Seen The patient was seen on 03/22/19. Progress Note SUBJECTIVE: Patient was seen and examined at the bedside. She continues to have respiratory distress despite maximal therapy with scheduled nebs and oral steroids. She has been having increasing dysphagia to her oral pills . Due to endstage lung disease with new b/l collapsed lung, family has been summoned to discuss endof life issues. Pt's son has been contacted about DEVULCANIZER OPERATOR and has agreed. For her comfort, pt will be continued on diuretics,prednisone, nebs. Hospice has been consulted. OBJECTIVE: VITAL SIGNS: pls see below GENERAL: ]moderate distress secondary to persistent shortness of breath.conversational dyspnea with 2-3 words. use of accessory muscles HEENT: Normocephalic, atraumatic. Extraocular motors are grossly intact. CARDIOVASCULAR: Tachycardic. Positive S1, S2. RESPIRATORY: Very shallow breathing, tachypneic. Positive crackles bilaterally. ABDOMEN: Soft, nontender. Bowel sounds present. EXTREMITIES: Positive pitting edema bilaterally. LABORATORY DATA, IMAGING STUDIES, MICROBIOLOGY: PLS SEE BELOW. CT CHEST 03/18/19: Lobar collapse right lower lobe, left lower lobe, right middle lobe. More extensive but not new when compared to the April 21, 2018 study. Inspissated endobronchial secretions. Peribronchial thickening question bronchitis. New peripheral consolidation posterior segment right upper lobe consistent with pneumonia. Emphysematous changes. No CT evidence of pulmonary embolus. Electronically Signed by Chau Paulson MD 03/18/2019 07:36 P ASSESSMENT AND PLAN:Mrs. Bowers is an 83-year-old female, DNR DNI wellknown to the pulmonary service for her multiple admissions related to end stage emphysema and chronic obstructive pulmonary disease (COPD). She was actually admitted this time on 07/31/2018 for COPD exacerbation and inability to care for herself. In essence, she has been in the hospital since that time. Since she has been here, she has been found to be incapacitated in regard to making medical decisions. Apparently, she has been in alternate level of care (ALC) with an attempt to find placement. She has been having "low grade" fevers over the past 2 weeks, maximum temperature (t-max) 100.4. Because she refuses multiple cares, including prophylaxis for deep vein thrombosis (DVT) and actually IV antibiotics despite positive sputum, the decision yesterday was to obtain a CT pulmonary angiogram. That CT scan showed bilateral lower lobe atelectasis that has increased but is not new dating back to at least April of 2018. It is because of this finding that pulmonary was consulted. This morning, Ms. Bowers is lying in bed saying, "please help me" multiple times but then yet could turn and ask multiple questions and speak full sentences. There was an occasional cough heard during the assessment. She cannot offer any other history. Acute on chronic respiratory failure. The patient originally was in alternate level of care (ALC) status. Due to acute change in her clinical picture, the patient was changed to acute status. At baseline, the patient has end stage chronic obstructive pulmonary disease (COPD). The patient also has diastolic congestive heart failure (CHF) exacerbation. The patient has not been compliant with medications. There are many times the patient also has refused laboratory tests. Previously, the patient was found to have pneumonia. Sputum culture from 03/04/2019 demonstrated Raoultella planticola. Today, the patient finally agreed for a lab draw and the patient agreed for chest x-ray. The patient still does have very elevated C-reactive protein and ESR and white count . The patient also had low grade temperature in the last few days. We will reorder the sputum culture. We will encourage increased compliance with diuretic usage and antibiotics. Per Pulmonary, "Abnormal chest CT scan with collapse of bilateral lower lobes and partial right middle lobe collapse. These changes are chronic and progressive. They are likely in part related to her kyphosis. I suspect a lot of this is secondary to her declining to use tools to help with hyperinflation. We will try to help her with expectoration. However, I am concerned that she will decline all of these recommendations as she has in the past. We will try hypertonic saline nebulizations. We will consult respiratory therapy for hyperinflation therapy to include EZPAP, Acapella, or vest. I will defer to their expertise as to what is the best modality. Again, I am not certain that she is going to be able to cooperate with any of these recommendations.Bronchoscopy is not indicated.Unfortunately, I have nothing further to offer other than the above suggestions. Therefore, I will sign off at this time. Please reconsult the pulmonary team in the future if we can be of any further assistance." She continues to have worsening respiratory distress despite maximal therapy with scheduled nebs and oral steroids. Pt's son has been contacted about DEVULCANIZER OPERATOR and has agreed. . For her comfort, pt will be continued on diuretics, nebs. Hospice has been consulted. Diastolic congestive heart failure (CHF) exacerbation. The patient has had multiple refusals of diuretics in the past. In the last few days, the patient has been more compliant with medication. The patient's peripheral edema has shown some improvement. The patient also has improvement of the BNP. History of pulmonary hypertension. Diuretic ordered. History of left lower extremity deep vein thrombosis (DVT). The patient is continued to refuse heparin. History of transient ischemic attack. Aspirin ordered, but the patient has been refusing the medications. Anxiety. On Xanax. Coronary artery disease, status post stent placement. Aspirin and Lipitor ordered. Dementia. The patient does not have capacity per previous psychiatry evaluation. The patient is waiting for placement. Medical noncompliance complicating the patient's care significantly. Chronic obstructive pulmonary disease (COPD) with hypoxemia, end stage, secondary to emphysema. Parainfluenza, likely worsening her underlying COPD. 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 Chronic prednisone usage. Dementia and medical incapacity. Deep vein thrombosis (DVT) prophylaxis. TEDs and compressions ordered for the patient. code: DNR DNI DEVULCANIZER OPERATOR disposition: poor and grim prognosis. Hospice consulted. She continues to have worsening respiratory distress despite maximal therapy with scheduled nebs and oral steroids. Pt's son has been contacted about DEVULCANIZER OPERATOR and has agreed. A-FIB/CHADSVASC A-FIB History Current/History of A-Fib/PAF?: No Current Oral Anticoagulant The: No VS, I&O, 24H, Fishbone Vital Signs/I&O Vital Signs Date Time Temp Pulse Resp B/P (MAP) Pulse Ox O2 Delivery O2 Flow Rate FiO2 03/22/19 09:00 3.0 03/21/19 20:00 22 03/21/19 08:33 Nasal Cannula 03/21/19 06:00 98.0 93 128/60 (82) 96 I&O- Last 24 Hours up to 6 AM 03/22/19 06:00 Intake Total 300 ml Balance 300 ml Laboratory Data Microbiology Microbiology 03/18/19 Respiratory Virus Panel (PCR) ([facility]) - Final, Complete Parainfluenza 3 (Piv3) VIKASH ANTHONY MD March 22, 2019 14:07
[2019-03-22] MEDS: ACETAMINOPHEN TAB 650MG DOSE (2X325MG) PO PRN (14:19)
[2019-03-22] MEDS ORDERED: LORazepam 2 MG/ML VIAL (J2060) IV PRN (16:30)
[2019-03-22] MEDS ORDERED: HYOSCYAMINE SULFATE 0.125 MG SUBL TABLET PO PRN (16:30)
[2019-03-22] MEDS ORDERED: IPRATROPIUM 0.5MG/ALBUTEROL 2.5MG INH SOL UD 3ML (DUONEB)(J7620) NEB PRN (16:45)
[2019-03-22] MEDS ORDERED: ALPRAZolam 0.5 MG TAB PO PRN (16:45)
[2019-03-22] MEDS: SCOPOLAMINE 1MG TRANSDERMAL PATCH TOP SCH (17:39)
[2019-03-22] MEDS: IPRATROPIUM 0.5MG/ALBUTEROL 2.5MG INH SOL UD 3ML (DUONEB)(J7620) NEB SCH ×2 (19:37→22:55)
[2019-03-23] MEDS: SODIUM CHLORIDE HYPERTONIC 3% 15ML NEB SOL INH SCH ×5 (02:19→20:00)
[2019-03-23] MEDS: IPRATROPIUM 0.5MG/ALBUTEROL 2.5MG INH SOL UD 3ML (DUONEB)(J7620) NEB SCH ×2 (02:19→07:31)
[2019-03-23] MEDS: MORPHINE 10MG/0.5ML ORAL CONCENTRATE SOLUTION U/D SL PRN ×10 (02:38→23:07)
[2019-03-23] MEDS ORDERED: LORazepam 2 MG/ML VIAL (J2060) IV STA (06:42)
[2019-03-23] MEDS ORDERED: LEVALBUTEROL 1.25 MG/0.5 ML CONCENTRATE NEB NEB ONE (06:45)
[2019-03-23] MEDS ORDERED: MORPHINE 10MG/0.5ML ORAL CONCENTRATE SOLUTION U/D SL ONE (06:45)
--- NOTE | 2019-03-23 07:04 | IPNPDOC ---
Date Seen The patient was seen on 03/23/19. Progress Note SUBJECTIVE: Patient was seen and examined at the bedside. She continues to have SEVERE respiratory distress despite maximal therapy with scheduled nebs and oral steroids. She has been having increasing dysphagia to her oral pills . Due to endstage lung disease with new b/l collapsed lung, family , Jaden and Chantal, have decided to make the patient TREASURY CONSULTANT For her comfort,pt will be continued on diuretics, prednisone, nebs. Hospice has been consulted. She c/o increasing trouble breathing this morning. "Help me. Help me. I can't breathe." Nebs given q15min. s/p roxanol and ativan. Pt c/o epistaxis. humidified o2. OBJECTIVE: VITAL SIGNS: pls see below GENERAL: severe distress secondary to persistent shortness of breath.conversational dyspnea with 2-3 words. use of accessory muscles HEENT: Normocephalic, atraumatic. Extraocular motors are grossly intact. CARDIOVASCULAR: Tachycardic. Positive S1, S2. RESPIRATORY: Very shallow breathing, tachypneic. Positive crackles bilaterally. ABDOMEN: Soft, nontender. Bowel sounds present. EXTREMITIES: Positive pitting edema bilaterally. LABORATORY DATA, IMAGING STUDIES, MICROBIOLOGY: PLS SEE BELOW. CT CHEST 03/18/19: Lobar collapse right lower lobe, left lower lobe, right middle lobe. More extensive but not new when compared to the April 21, 2018 study. Inspissated endobronchial secretions. Peribronchial thickening question bronchitis. New peripheral consolidation posterior segment right upper lobe consistent with pneumonia. Emphysematous changes. No CT evidence of pulmonary embolus. Electronically Signed by Chau Paulson MD 03/18/2019 07:36 P ASSESSMENT AND PLAN:Mrs. Bowers is an 83-year-old female, DNR DNI wellknown to the pulmonary service for her multiple admissions related to end stage emphysema and chronic obstructive pulmonary disease (COPD). She was actually admitted this time on 07/31/2018 for COPD exacerbation and inability to care for herself. In essence, she has been in the hospital since that time. Since she has been here, she has been found to be incapacitated in regard to making medical decisions. Apparently, she has been in alternate level of care (ALC) with an attempt to find placement. She has been having "low grade" fevers over the past 2 weeks, maximum temperature (t-max) 100.4. Because she refuses multiple cares, including prophylaxis for deep vein thrombosis (DVT) and actually IV antibiotics despite positive sputum, the decision yesterday was to obtain a CT pulmonary angiogram. That CT scan showed bilateral lower lobe atelectasis that has increased but is not new dating back to at least April of 2018. It is because of this finding that pulmonary was consulted. This morning, Ms. Bowers is lying in bed saying, "please help me" multiple times but then yet could turn and ask multiple questions and speak full sentences. There was an occasional cough heard during the assessment. She cannot offer any other history. Acute on chronic respiratory failure. The patient originally was in alternate level of care (ALC) status. Due to acute change in her clinical picture, the patient was changed to acute status. At baseline, the patient has end stage chronic obstructive pulmonary disease (COPD). The patient also has diastolic congestive heart failure (CHF) exacerbation. The patient has not been compliant with medications. There are many times the patient also has refused laboratory tests. Previously, the patient was found to have pneumonia. Sputum culture from 03/04/2019 demonstrated Raoultella planticola. Today, the patient finally agreed for a lab draw and the patient agreed for chest x-ray. The patient still does have very elevated C-reactive protein and ESR and white count. The patient also had low grade temperature in the last few days. We will reorder the sputum culture. We will encourage increased compliance with diuretic usage and antibiotics. Per Pulmonary, "Abnormal chest CT scan with collapse of bilateral lower lobes and partial right middle lobe collapse. These changes are chronic and progressive. They are likely in part related to her kyphosis. I suspect a lot of this is secondary to her declining to use tools to help with hyperinflation. We will try to help her with expectoration. However, I am concerned that she will decline all of these recommendations as she has in the past. We will try hypertonic saline nebulizations. We will consult respiratory therapy for hyperinflation therapy to include EZPAP, Acapella, or vest. I will defer to their expertise as to what is the best modality. Again, I am not certain that she is going to be able to cooperate with any of these recommendations.Bronchoscopy is not indicated.Unfortunately, I have nothing further to offer other than the above suggestions. Therefore, I will sign off at this time. Please reconsult the pulmonary team in the future if we can be of any further assistance." She continues to have worsening respiratory distress despite maximal therapy with scheduled nebs and oral steroids. Pt's son has been contacted about TREASURY CONSULTANT and has agreed. . For her comfort, pt will be continued on diuretics, nebs. Hospice has been consulted. Diastolic congestive heart failure (CHF) exacerbation. The patient has had multiple refusals of diuretics in the past. In the last few days, the patient has been more compliant with medication. The patient's peripheral edema has shown some improvement. The patient also has improvement of the BNP. History of pulmonary hypertension. Diuretic ordered. History of left lower extremity deep vein thrombosis (DVT). The patient is continued to refuse heparin. History of transient ischemic attack. Aspirin ordered, but the patient has been refusing the medications. Anxiety. On Xanax. Coronary artery disease, status post stent placement. Aspirin and Lipitor ordered. Dementia. The patient does not have capacity per previous psychiatry evaluation. The patient is waiting for placement. Medical noncompliance complicating the patient's care significantly. Chronic obstructive pulmonary disease (COPD) with hypoxemia, end stage, secondary to emphysema. Parainfluenza, likely worsening her underlying COPD. 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 Chronic prednisone usage. Dementia and medical incapacity. Deep vein thrombosis (DVT) prophylaxis. TEDs and compressions ordered for the patient. code: DNR DNI TREASURY CONSULTANT disposition: poor and grim prognosis. Hospice consulted. She continues to have worsening respiratory distress despite maximal therapy with scheduled nebs and oral steroids. Pt's son has been contacted about TREASURY CONSULTANT and has agreed. A-FIB/CHADSVASC A-FIB History Current/History of A-Fib/PAF?: No Current Oral Anticoagulant The: No VS, I&O, 24H, Fishbone Vital Signs/I&O Vital Signs Date Time Temp Pulse Resp B/P (MAP) Pulse Ox O2 Delivery O2 Flow Rate FiO2 03/23/19 06:53 24 15.0 35 03/21/19 08:33 Nasal Cannula 03/21/19 06:00 98.0 93 128/60 (82) 96 I&O- Last 24 Hours up to 6 AM 03/23/19 06:00 Intake Total 690 ml Balance 690 ml Laboratory Data Microbiology Microbiology 03/18/19 Respiratory Virus Panel (PCR) ([facility]) - Final, Complete Parainfluenza 3 (Piv3) VIKASH ANTHONY MD March 23, 2019 07:04
[2019-03-23] MEDS ORDERED: LEVALBUTEROL 1.25 MG/0.5 ML CONCENTRATE NEB INH PRN (07:15)
[2019-03-23] MEDS: LEVALBUTEROL 1.25 MG/0.5 ML CONCENTRATE NEB INH SCH ×5 (07:15→20:00)
[2019-03-23] MEDS: SYMBICORT 160/4.5MCG INHALER 6GM INH SCH ×2 (07:31→21:00)
[2019-03-23] MEDS: TIOTROPIUM INHALER/CAPSULE (SPIRIVA) INH SCH (07:31)
[2019-03-23] MEDS: CEFDINIR 300 MG CAP (OMNICEF) PO SCH ×2 (09:00→21:00)
[2019-03-23] MEDS: TORSEMIDE 20 MG TAB PO SCH (09:00)
[2019-03-23] MEDS: predniSONE 20 MG TAB PO SCH (09:00)
[2019-03-23] MEDS: ATROPINE SULFATE 1% OP SOLN 2 ML BTL SL PRN ×4 (09:11→23:06)
[2019-03-23] MEDS: LORazepam 2 MG/ML VIAL (J2060) IV PRN ×3 (13:34→20:53)
[2019-03-24] MEDS: LORazepam 2 MG/ML VIAL (J2060) IV PRN (00:06)
[2019-03-24] MEDS: ATROPINE SULFATE 1% OP SOLN 2 ML BTL SL PRN ×6 (01:04→17:02)
[2019-03-24] MEDS: MORPHINE 10MG/0.5ML ORAL CONCENTRATE SOLUTION U/D SL PRN ×10 (01:05→22:50)
[2019-03-24] MEDS: LORazepam 2 MG/ML VIAL (J2060) SL PRN ×4 (04:42→23:08)
[2019-03-24] MEDS: LEVALBUTEROL 1.25 MG/0.5 ML CONCENTRATE NEB INH SCH ×6 (07:23→23:36)
[2019-03-24] MEDS: TIOTROPIUM INHALER/CAPSULE (SPIRIVA) INH SCH (07:24)
[2019-03-24] MEDS: SYMBICORT 160/4.5MCG INHALER 6GM INH SCH ×2 (07:24→20:07)
[2019-03-24] MEDS: SODIUM CHLORIDE HYPERTONIC 3% 15ML NEB SOL INH SCH ×6 (07:24→23:36)
[2019-03-24] MEDS: CEFDINIR 300 MG CAP (OMNICEF) PO SCH ×2 (07:30→20:46)
[2019-03-24] MEDS: TORSEMIDE 20 MG TAB PO SCH (07:30)
[2019-03-24] MEDS: predniSONE 20 MG TAB PO SCH (07:30)
--- NOTE | 2019-03-24 10:41 | IPNPDOC ---
Date Seen The patient was seen on 03/24/19. Progress Note SUBJECTIVE: Due to endstage lung disease with new b/l collapsed lung, family , Jaden and Chantal, have decided to make the patient HEALTH LEAD For her comfort,pt will be continued on diuretics,prednisone, nebs. Hospice has been consulted. on roxanol and ativan. She is obtunded with agonal breathing with the son at the bedside. ROS could not be obtained. Family asked if the window can be opened when she passes, but per RN, none of the hospital windows can be opened. Per son, due to being Monday, a Rabbi may not be available, but attempts will be made to have to contact a rabbi per family request. OBJECTIVE: VITAL SIGNS: pls see below GENERAL: obtunded with face mask and agonal breathing HEENT: Normocephalic, atraumatic. Extraocular motors are grossly intact. CARDIOVASCULAR: Tachycardic. Positive S1, S2. RESPIRATORY: agonal breathing Positive crackles bilaterally. midline sternotomy scar ABDOMEN: Soft, nontender. Bowel sounds present. EXTREMITIES: Positive pitting edema bilaterally. LABORATORY DATA, IMAGING STUDIES, MICROBIOLOGY: PLS SEE BELOW. CT CHEST 03/18/19: Lobar collapse right lower lobe, left lower lobe, right middle lobe. More extensive but not new when compared to the April 21, 2018 study. Inspissated endobronchial secretions. Peribronchial thickening question bronchitis. New peripheral consolidation posterior segment right upper lobe consistent with pneumonia. Emphysematous changes. No CT evidence of pulmonary embolus. Electronically Signed by Chau Paulson MD 03/18/2019 07:36 P ASSESSMENT AND PLAN:Mrs. Bowers is an 83-year-old female, DNR DNI wellknown to the pulmonary service for her multiple admissions related to end stage emphysema and chronic obstructive pulmonary disease (COPD). She was actually admitted this time on 07/31/2018 for COPD exacerbation and inability to care for herself. In essence, she has been in the hospital since that time. Since she has been here, she has been found to be incapacitated in regard to making medical decisions. Apparently, she has been in alternate level of care (ALC) with an attempt to find placement. She has been having "low grade" fevers over the past 2 weeks, maximum temperature (t-max) 100.4. Because she refuses multiple cares, including prophylaxis for deep vein thrombosis (DVT) and actually IV antibiotics despite positive sputum, the decision yesterday was to obtain a CT pulmonary angiogram. That CT scan showed bilateral lower lobe atelectasis that has increased but is not new dating back to at least April of 2018. It is because of this finding that pulmonary was consulted. This morning, Ms. Bowers is lying in bed saying, "please help me" multiple times but then yet could turn and ask multiple questions and speak full sentences. There was an occasional cough heard during the assessment. She cannot offer any other history. Acute on chronic respiratory failure. The patient originally was in alternate level of care (ALC) status. Due to acute change in her clinical picture, the patient was changed to acute status. At baseline, the patient has end stage chronic obstructive pulmonary disease (COPD). The patient also has diastolic congestive heart failure (CHF) exacerbation. The patient has not been compliant with medications. There are many times the patient also has refused laboratory tests. Previously, the patient was found to have pneumonia. Sputum culture from 03/04/2019 demonstrated Raoultella planticola. Today, the patient finally agreed for a lab draw and the patient agreed for chest x-ray. The patient still does have very elevated C-reactive protein and ESR and white count. The patient also had low grade temperature in the last few days. We will reorder the sputum culture. We will encourage increased compliance with diuretic usage and antibiotics. Per Pulmonary, "Abnormal chest CT scan with collapse of bilateral lower lobes and partial right middle lobe collapse. These changes are chronic and progressive. They are likely in part related to her kyphosis. I suspect a lot of this is secondary to her declining to use tools to help with hyperinflation. We will try to help her with expectoration. However, I am concerned that she will decline all of these recommendations as she has in the past. We will try hypertonic saline nebulizations. We will consult respiratory therapy for hyperinflation therapy to include EZPAP, Acapella, or vest. I will defer to their expertise as to what is the best modality. Again, I am not certain that she is going to be able to cooperate with any of these recommendations.Bronchoscopy is not indicated.Unfortunately, I have nothing further to offer other than the above suggestions. Therefore, I will sign off at this time. Please reconsult the pulmonary team in the future if we can be of any further assistance." She continues to have worsening respiratory distress despite maximal therapy with scheduled nebs and oral steroids. Pt's son has been contacted about HEALTH LEAD and has agreed. . For her comfort, pt will be continued on diuretics, nebs. Hospice has been consulted. Diastolic congestive heart failure (CHF) exacerbation. The patient has had multiple refusals of diuretics in the past. In the last few days, the patient has been more compliant with medication. The patient's peripheral edema has shown some improvement. The patient also has improvement of the BNP. History of pulmonary hypertension. Diuretic ordered. History of left lower extremity deep vein thrombosis (DVT). The patient is continued to refuse heparin. History of transient ischemic attack. Aspirin ordered, but the patient has been refusing the medications. Anxiety. On Xanax. Coronary artery disease, status post stent placement. Aspirin and Lipitor ordered. Dementia. The patient does not have capacity per previous psychiatry evaluation. The patient is waiting for placement. Medical noncompliance complicating the patient's care significantly. Chronic obstructive pulmonary disease (COPD) with hypoxemia, end stage, secondary to emphysema. Parainfluenza, likely worsening her underlying COPD. 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 Chronic prednisone usage. Dementia and medical incapacity. Deep vein thrombosis (DVT) prophylaxis. TEDs and compressions ordered for the patient. code: DNR DNI HEALTH LEAD disposition: poor and grim prognosis. Hospice consulted. She continues to have worsening respiratory distress despite maximal therapy with scheduled nebs and oral steroids. Pt's son has been contacted about HEALTH LEAD and has agreed. A-FIB/CHADSVASC A-FIB History Current/History of A-Fib/PAF?: No Current Oral Anticoagulant The: No VS, I&O, 24H, Fishbone Vital Signs/I&O Vital Signs Date Time Temp Pulse Resp B/P (MAP) Pulse Ox O2 Delivery O2 Flow Rate FiO2 03/24/19 05:40 20 15.0 35 03/21/19 08:33 Nasal Cannula 03/21/19 06:00 98.0 93 128/60 (82) 96 I&O- Last 24 Hours up to 6 AM 03/24/19 06:00 Intake Total 120 ml Balance 120 ml Laboratory Data Microbiology Microbiology 03/18/19 Respiratory Virus Panel (PCR) ([facility]) - Final, Complete Parainfluenza 3 (Piv3) VIKASH ANTHONY MD March 24, 2019 10:39
[2019-03-25] MEDS: ATROPINE SULFATE 1% OP SOLN 2 ML BTL SL PRN ×7 (00:56→23:42)
[2019-03-25] MEDS: LORazepam 2 MG/ML VIAL (J2060) SL PRN ×6 (01:35→19:55)
[2019-03-25] MEDS: MORPHINE 10MG/0.5ML ORAL CONCENTRATE SOLUTION U/D SL PRN ×7 (03:47→22:31)
[2019-03-25] MEDS: LEVALBUTEROL 1.25 MG/0.5 ML CONCENTRATE NEB INH SCH ×6 (04:00→23:52)
[2019-03-25] MEDS: SODIUM CHLORIDE HYPERTONIC 3% 15ML NEB SOL INH SCH ×6 (04:00→23:52)
--- NOTE | 2019-03-25 06:35 | IPNPDOC ---
Date Seen The patient was seen on 03/25/19. Progress Note SUBJECTIVE: Due to endstage lung disease with new b/l collapsed lung, family , Jaden and Chantal, have decided to make the patient EXCHANGE ENGINEER For her comfort,pt will be continued on diuretics,prednisone, nebs. Hospice has been consulted. on roxanol and ativan. She is obtunded with agonal breathing with the son at the bedside. ROS could not be obtained. Family asked if the window can be opened when she passes, but per RN, none of the hospital windows can be opened.Pt continues to have increasing terminal secretions and worsening resp iratory distress with use of accessory muscles and agonal breathing. OBJECTIVE: VITAL SIGNS: pls see below GENERAL: obtunded with face mask and agonal breathing HEENT: Normocephalic, atraumatic. Extraocular motors are grossly intact. CARDIOVASCULAR: Tachycardic. Positive S1, S2. RESPIRATORY: agonal breathing Positive crackles bilaterally. midline sternotomy scar ABDOMEN: Soft, nontender. Bowel sounds present. EXTREMITIES: Positive pitting edema bilaterally. LABORATORY DATA, IMAGING STUDIES, MICROBIOLOGY: PLS SEE BELOW. CT CHEST 03/18/19: Lobar collapse right lower lobe, left lower lobe, right middle lobe. More extensive but not new when compared to the April 21, 2018 study. Inspissated endobronchial secretions. Peribronchial thickening question bronchitis. New peripheral consolidation posterior segment right upper lobe consistent with pneumonia. Emphysematous changes. No CT evidence of pulmonary embolus. Electronically Signed by Chau Paulson MD 03/18/2019 07:36 P ASSESSMENT AND PLAN:Mrs. Bowers is an 83-year-old female, DNR DNI wellknown to the pulmonary service for her multiple admissions related to end stage emphysema and chronic obstructive pulmonary disease (COPD). She was actually admitted this time on 07/31/2018 for COPD exacerbation and inability to care for herself. In essence, she has been in the hospital since that time. Since she has been here, she has been found to be incapacitated in regard to making medical decisions. Apparently, she has been in alternate level of care (ALC) with an attempt to find placement. She has been having "low grade" fevers over the past 2 weeks, maximum temperature (t-max) 100.4. Because she refuses multiple cares, including prophylaxis for deep vein thrombosis (DVT) and actually IV antibiotics despite positive sputum, the decision yesterday was to obtain a CT pulmonary angiogram. That CT scan showed bilateral lower lobe atelectasis that has increased but is not new dating back to at least April of 2018. It is because of this finding that pulmonary was consulted. This morning, Ms. Bowers is lying in bed saying, "please help me" multiple times but then yet could turn and ask multiple questions and speak full sentences. There was an occasional cough heard during the assessment. She cannot offer any other history. Acute on chronic respiratory failure. The patient originally was in alternate level of care (ALC) status. Due to acute change in her clinical picture, the patient was changed to acute status. At baseline, the patient has end stage chronic obstructive pulmonary disease (COPD). The patient also has diastolic congestive heart failure (CHF) exacerbation. The patient has not been compliant with medications. There are many times the patient also has refused laboratory tests. Previously, the patient was found to have pneumonia. Sputum culture from 03/04/2019 demonstrated Raoultella planticola. Today, the patient finally agreed for a lab draw and the patient agreed for chest x-ray. The patient still does have very elevated C-reactive protein and ESR and white count. The patient also had low grade temperature in the last few days. We will reorder the sputum culture. We will encourage increased compliance with diuretic usage and antibiotics. Per Pulmonary, "Abnormal chest CT scan with collapse of bilateral lower lobes and partial right middle lobe collapse. These changes are chronic and progressive. They are likely in part related to her kyphosis. I suspect a lot of this is secondary to her declining to use tools to help with hyperinflation. We will try to help her with expectoration. However, I am concerned that she will decline all of these recommendations as she has in the past. We will try hypertonic saline nebulizations. We will consult respiratory therapy for hyperinflation therapy to include EZPAP, Acapella, or vest. I will defer to their expertise as to what is the best modality. Again, I am not certain that she is going to be able to cooperate with any of these recommendations.Bronchoscopy is not indicated.Unfortunately, I have nothing further to offer other than the above suggestions. Therefore, I will sign off at this time. Please reconsult the pulmonary team in the future if we can be of any further assistance." She continues to have worsening respiratory distress despite maximal therapy with scheduled nebs and oral steroids. Pt's son has been contacted about EXCHANGE ENGINEER and has agreed. . For her comfort, pt will be continued on diuretics, nebs. Hospice has been consulted. Diastolic congestive heart failure (CHF) exacerbation. The patient has had multiple refusals of diuretics in the past. In the last few days, the patient has been more compliant with medication. The patient's peripheral edema has shown some improvement. The patient also has improvement of the BNP. History of pulmonary hypertension. Diuretic ordered. History of left lower extremity deep vein thrombosis (DVT). The patient is continued to refuse heparin. History of transient ischemic attack. Aspirin ordered, but the patient has been refusing the medications. Anxiety. On Xanax. Coronary artery disease, status post stent placement. Aspirin and Lipitor ordered. Dementia. The patient does not have capacity per previous psychiatry evaluation. The patient is waiting for placement. Medical noncompliance complicating the patient's care significantly. Chronic obstructive pulmonary disease (COPD) with hypoxemia, end stage, secondary to emphysema. Parainfluenza, likely worsening her underlying COPD. 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 Chronic prednisone usage. Dementia and medical incapacity. Deep vein thrombosis (DVT) prophylaxis. TEDs and compressions ordered for the patient. code: DNR DNI EXCHANGE ENGINEER disposition: poor and grim prognosis. Hospice consulted. She continues to have worsening respiratory distress despite maximal therapy with scheduled nebs and oral steroids. Pt's son has been contacted about EXCHANGE ENGINEER and has agreed. A-FIB/CHADSVASC SCREEN A-FIB/CHADSVASC A-FIB History Current/History of A-Fib/PAF?: No Current Oral Anticoagulant The: No A-FIB/CHADSVASC A-FIB History Current/History of A-Fib/PAF?: No Current Oral Anticoagulant The: No VS, I&O, 24H, Fishbone Vital Signs/I&O Vital Signs Date Time Temp Pulse Resp B/P (MAP) Pulse Ox O2 Delivery O2 Flow Rate FiO2 03/24/19 20:30 15.0 35 03/24/19 05:40 20 03/21/19 08:33 Nasal Cannula 03/21/19 06:00 98.0 93 128/60 (82) 96 I&O- Last 24 Hours up to 6 AM 03/25/19 06:00 Intake Total 0 ml Output Total 0 ml Balance 0 ml Laboratory Data Microbiology Microbiology 03/18/19 Respiratory Virus Panel (PCR) ([facility]) - Final, Complete Parainfluenza 3 (Piv3) VIKASH ANTHONY MD March 25, 2019 06:35
[2019-03-25] MEDS: predniSONE 20 MG TAB PO SCH (07:18)
[2019-03-25] MEDS: TORSEMIDE 20 MG TAB PO SCH (07:18)
[2019-03-25] MEDS: CEFDINIR 300 MG CAP (OMNICEF) PO SCH ×2 (07:19→21:00)
[2019-03-25] MEDS: TIOTROPIUM INHALER/CAPSULE (SPIRIVA) INH SCH (07:50)
[2019-03-25] MEDS: SYMBICORT 160/4.5MCG INHALER 6GM INH SCH ×2 (07:50→19:34)
[2019-03-25] MEDS: SCOPOLAMINE 1MG TRANSDERMAL PATCH TOP SCH (17:27)
[2019-03-26] MEDS: LORazepam 2 MG/ML VIAL (J2060) SL PRN (01:59)
[2019-03-26] MEDS: SODIUM CHLORIDE HYPERTONIC 3% 15ML NEB SOL INH SCH (04:00)
[2019-03-26] MEDS: LEVALBUTEROL 1.25 MG/0.5 ML CONCENTRATE NEB INH SCH (04:00)
--- NOTE | 2019-03-26 08:59 | DSES ---
EXPIRATION SUMMARY DATE OF ADMISSION: 07/31/2018 DATE OF EXPIRATION/DISCHARGE: ATTENDING PHYSICIAN: Tiffanie Blake MD PRINCIPAL DIAGNOSIS: Acute on chronic respiratory failure. SECONDARY DIAGNOSES: Diastolic congestive heart failure. Pulmonary hypertension. History of deep venous thrombosis (DVT). History of transient ischemic attack (TIA). Anxiety. Coronary artery disease. Dementia. Medical noncompliance. Chronic obstructive pulmonary disease (COPD). Parainfluenza infection. Pulmonary cachexia. Chronic steroid therapy. Dementia with mental incapacity. HISTORY: The patient was on the hospitalist service. I never saw the patient. She overnight and apparently discharge summary is being handed off. From looking at the records, she has been in since July with pulmonary problems. Her medical history is summarized above. She had a collapse of right lower lobe, left lower lobe, and right middle lobe on CT scan from 03/18/2019. The family decided on comfort measures only (PERMIT AGENT) status, and she on PERMIT AGENT status apparently overnight.
== END 2019-03-26 07:50 | disposition expired | DRG 190 ==
LOC: EDBD 19:51 → M ED 19:51 → M ED INP 22:58 → M MSPAV 08-01 01:07 → M PCU 03-05 16:38 → M MSPAV 03-08 15:39
PROVIDERS: ADMIT Internal Medicine Nephrology; ATTEND Family Medicine
PROC: 30233N1 Transfusion of Nonautologous Red Blood Cells into Peripheral Vein, Percutaneous Approach (ICD-10-PCS; principal; 2018-10-30)
DX: J44.1 Chronic obstructive pulmonary disease with (acute) exacerbation (principal); I50.33 Acute on chronic diastolic (congestive) heart failure; A41.9 Sepsis, unspecified organism; J96.20 Acute and chronic respiratory failure, unspecified whether with hypoxia or hypercapnia; J18.9 Pneumonia, unspecified organism; J96.11 Chronic respiratory failure with hypoxia; J96.12 Chronic respiratory failure with hypercapnia; N39.0 Urinary tract infection, site not specified; N17.9 Acute kidney failure, unspecified; F03.91 Unspecified dementia, unspecified severity, with behavioral disturbance; R64 Cachexia; J98.11 Atelectasis; I51.3 Intracardiac thrombosis, not elsewhere classified; D38.1 Neoplasm of uncertain behavior of trachea, bronchus and lung; I27.20 Pulmonary hypertension, unspecified; F41.9 Anxiety disorder, unspecified; Z79.52 Long term (current) use of systemic steroids; Z91.19 Patient's noncompliance with other medical treatment and regimen; Z86.73 Personal history of transient ischemic attack (TIA), and cerebral infarction without residual deficits; I25.10 Atherosclerotic heart disease of native coronary artery without angina pectoris; Z51.5 Encounter for palliative care; Z88.8 Allergy status to other drugs, medicaments and biological substances; Z79.899 Other long term (current) drug therapy; Z95.1 Presence of aortocoronary bypass graft; K21.9 Gastro-esophageal reflux disease without esophagitis; E11.65 Type 2 diabetes mellitus with hyperglycemia; Z95.2 Presence of prosthetic heart valve; D64.9 Anemia, unspecified; Z66 Do not resuscitate